=== PATIENT | male | born 1960 | race Hispanic/Latino ===

== ENCOUNTER 2024-10-28 10:59 | Emergency (ER) | payer BC ==
--- OUTSIDE RECORDS SUMMARY | 2024-10-28 11:38 | XMS REPORT | Continuity of Care Document ---
Author Name Unknown Address [address] [facility] [place] [address] [facility] [address] [facility] [address] [place] [address] Care Team Providers Care Armature Rewinder Name Role Phone Kurtis Lynch Attending Clinician Unavailable Annabelle Zazueta Attending Clinician Unavailable Josette Ley Attending Clinician Unavailab Arturo Crockett Attending Clinician Unavailable Sunita Wills Attending Clinician Unavailable Liset Whiting Attending Clinician Unavailable Candie Soto Attending Clinician Unavailab Kiko Roberson Attending Clinician Unavailable Kalpana Dickinson Attending Clinician UnavailPete Myers Attending Clinician Unavailable Luis Lao Attending Clinician Unavailable Keenan Kumari Attending Clinician Unavailable Parvin Salcido Attending Clinician Unavailable Nitza Brown Attending Clinician UnavailLorraine John Attending Clinician Unavailable Sherrie Stein Attending Clinician Unavailable Luke Artis Attending Clinician Unavailable Pearl Mcgill Attending Clinician UnavailNnamdi Rowley X Attending Clinician Unavailable Snow Attending Clinician Unavailable Chad Haile Attending Clinician Unavailab jerome Coronado_S Attending Clinician Unavailable UNKNOWN Attending Clinician Unavailable Aydee Briceno Attending Clinician Unavailable Darvin Attending Clinician Unavailable Kiko Mukherjee Attending Clinician Unavailable Physician, No Primary or Family Admitting Clinic warren Unavailable Josette Ley Admitting Clinician Unavailab Jong Brar Admitting Clinician Unavailable Pete Vang Admitting Clinician Unavailable Parvin Salcido Admitting Clinician Unavailable Physician, No Primary Care Admitting Clinician U navailable Najmamed, Lorraine X Admitting Clinician Unavailable Sherrie Stein Admitting Clinician Unavailable UNDEFINED Admitting Clinician Unavailable Kurtis Lynch Admitting Clinician Unavailable Keenan Kumari Admitting Clinician Unavailable Snow Admitting Clinician Unavailable Nnamdi Rachel Admitting Clinician Unavailable [facility] Admitting Clinician Unavaila misbah Coronado_S Admitting Clinician Unavailable Annabelle Zazueta Admitting Clinician Unavailable Aydee Briceno Admitting Clinician Unavailable Darvin Admitting Clinician Unavailable Payers Payer Name Policy Type Policy Number Effective Date Expirati on Date Source [place]HMO) [id number] 2022 00:00:00 2023 00:00:00 Problems Condition Name Condition Details Condition Category Status Onset Date Resolution Date Last Treatment Date Treating Clinician Comments Source Generalize d anxiety disorder Generalize d Anxiety Disorder Problem Active 605 00:00: 00 [facility] Essential hypertensi on Essential Hypertensi on Problem Active 07-21 00:00: 00 [facility] Obstructiv e sleep apnea syndrome Obstructiv e Sleep Apnea Syndrome Problem Active 06-10 00:00: 00 [facility] Pneumonia Pneumonia Problem Active 06-10 00:00: 00 [facility] Dyspnea Dyspnea Problem Active 06-10 00:00: 00 [facility] Dyspnea on exertion Dyspnea on Exertion Problem Active 06-10 00:00: 00 [facility] Hypercoagu lability state Hypercoagu lability State Problem Active - 00:00: 00 [facility] Ischemic congestive cardiomyop athy Ischemic Congestive Cardiomyop athy Problem Active 03-19 00:00: 00 [facility] Paroxysmal atrial fibrillati on Paroxysmal Atrial Fibrillati on Problem Active 03-19 00:00: 00 [facility] Chronic systolic heart failure Chronic Systolic Heart Failure Problem Active 03-19 00:00: 00 [facility] Harmful pattern of use of alcohol Harmful Pattern of Use of Alcohol Problem Active 08-29 00:00: 00 [facility] Nicotine dependence Nicotine Dependence Problem Active 08-29 00:00: 00 [facility] Mild major depression Mild Major Depression Problem Active 2022-03 00:00: 00 [facility] Cervical radiculopa thy Cervical Radiculopa thy Problem Active 11-29 00:00: 00 [facility] History of myocardial infarction History of Myocardial Infarction Problem Active 11-29 00:00: 00 [facility] History of placement of stent for coronary artery disease History of Placement of Stent for Coronary Artery Disease Problem Active 11-29 00:00: 00 [facility] Coronary atheroscle rosis Coronary Atheroscle rosis Problem Active 06-26 00:00: 00 [facility] Hyperlipid emia Hyperlipid emia Problem Active 06-25 00:00: 00 [facility] Hypertensi ve disorder Hypertensi ve Disorder Problem Active 06-25 00:00: 00 [facility] Allergies, Adverse Reactions, Alerts Allergy Name Allergy Type Status Severity Reaction(s) Onset Date Inactive Date Treating Clinician Comments Source No Known Allergie s DA Active U 2023-03 00:00: 00 [facility] are [facility] No Known Allergie s DA Active U 08-29 00:00: 00 [facility] are [facility] No Known Allergie s DA Active U 2020-03 00:00: 00 [facility] are [facility] Social History Smoking Status Start Date Stop Date Source Light Tobacco Smoker [facility] Never Smoker [facility] Medications Ordered Medication Name Filled Medication Name Start Date Stop Date Current Medication? Ordering Clinician Indication Dosage Frequency Signature (SIG) Comments Components Source losartan 100 mg tablet Take 1 tablet every day by oral route. losartan 100 mg tablet Take 1 tablet every day by oral route. No 1 Q1D losartan 100 mg tablet Take 1 tablet every day by oral route. [facility] metoprolol succinate 75 mg once a day metoprolol succinate 75 mg once a day No metoprolol succinate 75 mg once a day [facility] trazodone 100 mg tablet 1/2 to 1 tab q HS trazodone 100 mg tablet 1/2 to 1 tab q HS No trazodone 100 mg tablet 1/2 to 1 tab q HS [facility] folic acid 1 mg tablet Take 1 tablet every day by oral route for 90 days. folic acid 1 mg tablet Take 1 tablet every day by oral route for 90 days. No folic acid 1 mg tablet Take 1 tablet every day by oral route for 90 days. [facility] bumetanide 1 mg tablet Take 1 tablet every day by oral route. bumetanide 1 mg tablet Take 1 tablet every day by oral route. No 1 Q1D bumetanide 1 mg tablet Take 1 tablet every day by oral route. [facility] Eliquis 5 mg tablet one po qd Eliquis 5 mg tablet one po qd No Eliquis 5 mg tablet one po qd [facility] meclizine 25 mg tablet PRN meclizine 25 mg tablet PRN No meclizine 25 mg tablet PRN [facility] potassium chloride ER 20 mEq tablet,exte nded release one po qd potassium chloride ER 20 mEq tablet,exte nded release one po qd No potassium chloride ER 20 mEq tablet,ext ended release one po qd [facility] atorvastati n 40 mg tablet TAKE ONE TABLET BY MOUTH DAILY atorvastati n 40 mg tablet TAKE ONE TABLET BY MOUTH DAILY No atorvastat in 40 mg tablet TAKE ONE TABLET BY MOUTH DAILY [facility] amiodarone 200 mg tablet TAKE ONE TABLET BY MOUTH DAILY amiodarone 200 mg tablet TAKE ONE TABLET BY MOUTH DAILY No amiodarone 200 mg tablet TAKE ONE TABLET BY MOUTH DAILY [facility] cyclobenzap rine 10 mg tablet cyclobenzap rine 10 mg tablet No cyclobenza jeffery 10 mg tablet [facility] escitalopra m 10 mg tablet Take 1 tablet every day by oral route for 90 days. escitalopra m 10 mg tablet Take 1 tablet every day by oral route for 90 days. No 1 Q1D escitalopr am 10 mg tablet Take 1 tablet every day by oral route for 90 days. [facility] clonazepam 1 mg tablet Take 1 tablet twice a day by oral route as needed for 30 days, for anxiety. clonazepam 1 mg tablet Take 1 tablet twice a day by oral route as needed for 30 days, for anxiety. No 1 BID clonazepam 1 mg tablet Take 1 tablet twice a day by oral route as needed for 30 days, for anxiety. [facility] escitalopra m 20 mg tablet Take 1 tablet every day by oral route in the morning for 90 days. escitalopra m 20 mg tablet Take 1 tablet every day by oral route in the morning for 90 days. No 1 Q1D escitalopr am 20 mg tablet Take 1 tablet every day by oral route in the morning for 90 days. [facility] metoprolol succinate ER 50 mg tablet,exte nded release 24 hr Take 1 tablet every day by oral route. metoprolol succinate ER 50 mg tablet,exte nded release 24 hr Take 1 tablet every day by oral route. No 1 Q1D metoprolol succinate ER 50 mg tablet,ext ended release 24 hr Take 1 tablet every day by oral route. [facility] Vital Signs Vital Name Observation Time Observation Value Comments [place] BP Diastolic 2024-10-06 00:00:00 68 mm[Hg] [facility] BP Systolic 2024-10-06 00:00:00 99 mm[Hg] [facility] Height 2024-10-06 00:00:00 68 [in_i] [facility] BMI (Body Mass Index) 2024-10-06 00:00:00 26.5 kg/m2 [facility] Body Weight 2024-10-06 00:00:00 174.6 [lb_av] [facility] BP Diastolic 2024-08-06 00:00:00 68 mm[Hg] [facility] Body Weight 2024-08-06 00:00:00 170.2 [facility]lb_av[facility] Systolic 2024-08-06 00:00:00 103 mm[Hg] [facility] BMI (Body Mass Index) 2024-08-06 00:00:00 25.9 kg/m2 [facility] Height 2024-08-06 00:00:00 68 [in_i] [facility] BMI (Body Mass Index) 2024-07-21 00:00:00 27.2 kg/m2 [facility] ly Practice BP Diastolic 2024-07-21 00:00:00 77 mm[Hg] [facility] BP Systolic 2024-07-21 00:00:00 115 mm[Hg] [facility] Height 2024-07-21 00:00:00 68 [in_i] [facility] Body Weight 2024-07-21 00:00:00 179 [lb_av] [facility] Height 2024-06-16 00:00:00 68 [in_i] [facility] BMI (Body Mass Index) 2024-06-16 00:00:00 27.1 kg/m2 [facility] BP Diastolic 2024-06-16 00:00:00 72 mm[Hg] [facility] Body Weight 2024-06-16 00:00:00 178 [lb_av] [facility] Systolic 2024-06-16 00:00:00 114 mm[Hg] [facility] Height 2024-06-10 00:00:00 68 [in_i] [facility] BMI (Body Mass Index) 2024-06-10 00:00:00 26.5 kg/m2 [facility] Body Weight 2024-06-10 00:00:00 174 [lb_av] [facility] BP Systolic 2024-06-10 00:00:00 126 mm[Hg] [facility] BP Diastolic 2024-06-10 00:00:00 84 mm[Hg] [facility] BP Diastolic 2024-05-25 00:00:00 78 mm[Hg] [facility] BP Systolic 2024-05-25 00:00:00 132 mm[Hg] [facility] Height 2024-05-25 00:00:00 68 [in_i] [facility] Body Weight 2024-05-25 00:00:00 174 [lb_av] [facility] BMI (Body Mass Index) 2024-05-25 00:00:00 26.5 kg/m2 [facility] Body Weight 2024-05-12 00:00:00 176.4 [lb_av] [facility] Height 2024-05-12 00:00:00 68 [in_i] [facility] BP Diastolic 2024-05-12 00:00:00 76 mm[Hg] [facility] BP Systolic 2024-05-12 00:00:00 120 mm[Hg] [facility] BMI (Body Mass Index) 2024-05-12 00:00:00 26.8 kg/m2 [facility] BP Systolic 2023-09-26 00:00:00 118 mm[Hg] [facility] Body Weight 2023-09-26 00:00:00 159.4 [lb_av] [facility] Height 2023-09-26 00:00:00 68 [in_i] [facility] BMI (Body Mass Index) 2023-09-26 00:00:00 24.2 kg/m2 [facility] BP Diastolic 2023-09-26 00:00:00 74 mm[Hg] [facility] BMI (Body Mass Index) 2023-08-29 00:00:00 25.4 kg/m2 [facility] Body Weight 2023-08-29 00:00:00 166.8 [lb_av] [facility] Height 2023-08-29 00:00:00 68 [in_i] [facility] BP Systolic 2023-08-29 00:00:00 160 mm[Hg] [facility] BP Diastolic 2023-08-29 00:00:00 100 mm[Hg] [facility] Height 2023-07-11 00:00:00 68 [in_i] [facility] BMI (Body Mass Index) 2023-07-11 00:00:00 22.8 kg/m2 [facility] BP Diastolic 2023-07-11 00:00:00 57 mm[Hg] [facility] Body Weight 2023-07-11 00:00:00 150 [lb_av] [facility] BP Systolic 2023-07-11 00:00:00 100 mm[Hg] [facility] BP Systolic 2023-01-29 00:00:00 151 mm[Hg] [facility] BMI (Body Mass Index) 2023-01-29 00:00:00 26.4 kg/m2 [facility] BP Diastolic 2023-01-29 00:00:00 91 mm[Hg] [facility] Body Weight 2023-01-29 00:00:00 173.4 [lb_av] [facility] Height 2023-01-29 00:00:00 68 [in_i] [facility] BP Diastolic 2023-01-03 00:00:00 70 mm[Hg] [facility] BP Systolic 2023-01-03 00:00:00 122 mm[Hg] [facility] Height 2023-01-03 00:00:00 68 [in_i] [facility] BMI (Body Mass Index) 2023-01-03 00:00:00 26.2 kg/m2 [facility] Body Weight 2023-01-03 00:00:00 172 [lb_av] [facility] Body Weight 2022-11-29 00:00:00 166 [lb_av] [facility] BMI (Body Mass Index) 2022-11-29 00:00:00 25.2 kg/m2 [facility] Height 2022-11-29 00:00:00 68 [in_i] [facility] BP Systolic 2022-11-29 00:00:00 138 mm[Hg] [facility] BP Diastolic 2022-11-29 00:00:00 80 mm[Hg] [facility] BP Diastolic 2022-09-12 00:00:00 82 mm[Hg] [facility] Height 2022-09-12 00:00:00 68 [in_i] [facility] BMI (Body Mass Index) 2022-09-12 00:00:00 23.7 kg/m2 [facility] BP Systolic 2022-09-12 00:00:00 124 mm[Hg] [facility] Body Weight 2022-09-12 00:00:00 156.2 [lb_av] [facility] BP Diastolic 2022-08-23 00:00:00 72 mm[Hg] [facility] Height 2022-08-23 00:00:00 68 [in_i] [facility] BMI (Body Mass Index) 2022-08-23 00:00:00 22.9 kg/m2 [facility] BP Systolic 2022-08-23 00:00:00 110 mm[Hg] [facility] Body Weight 2022-08-23 00:00:00 150.8 [lb_av] [facility] BP Diastolic 2022-07-26 00:00:00 86 mm[Hg] [facility] Height 2022-07-26 00:00:00 68 [in_i] [facility] BMI (Body Mass Index) 2022-07-26 00:00:00 22.9 kg/m2 [facility] BP Systolic 2022-07-26 00:00:00 138 mm[Hg] [facility] Body Weight 2022-07-26 00:00:00 150.6 [lb_av] [facility] BP Diastolic 2022-07-17 00:00:00 76 mm[Hg] [facility] Height 2022-07-17 00:00:00 68 [in_i] [facility] Practice BMI (Body Mass Index) 2022-07-17 00:00:00 22.4 kg/m2 [facility] BP Systolic 2022-07-17 00:00:00 112 mm[Hg] [facility] Body Weight 2022-07-17 00:00:00 147.6 [lb_av] [facility] BP Diastolic 2022-06-26 00:00:00 60 mm[Hg] [facility] Height 2022-06-26 00:00:00 68 [in_i] [facility] BMI (Body Mass Index) 2022-06-26 00:00:00 23.4 kg/m2 [facility] BP Systolic 2022-06-26 00:00:00 110 mm[Hg] [facility] Body Weight 2022-06-26 00:00:00 154 [lb_av] [facility] Procedures Procedure Date / Time Performed Performing Clinician Source X-RAY OF CHEST 2 VIEW 2024-06-10 00:00:00 [facility] LDCT, chest, for lung cancer screening 2024-06-10 00:00:00 [facility] PFT, complete 2024-06-10 00:00:00 [facility] PFT, diffusing capacity 2024-06-10 00:00:00 [facility] PFT, lung volumes 2024-06-10 00:00:00 [facility] PFT, flow volume loop 2024-06-10 00:00:00 [facility] RESPIRATORY VENTILATION, LESS THAN 24 CONSECUTIVE 2024-01-28 00:00:[address] [facility] INSERTION OF ENDOTRACHEAL AIRWAY INTO TRACHEA, VIA 2024-01-28 00:[facility] [id number] 2024-01-02 00:00:00 [facility] [id number] 2024-01-02 00:00:00 [facility] [id number] 2024-01-02 00:00:00 [facility] [id number] 2024-01-02 00:00:00 [facility] [id number] 2023-12-31 00:00:00 [facility] [id number] 2023-12-31 00:00:00 [facility] [id number] 2023-12-31 00:00:00 [facility] [id number] 2023-12-31 00:00:00 [facility] [id number] 2023-12-31 00:00:00 [facility] [id number] 2023-12-31 00:00:00 [facility] [id number] 2023-12-31 00:00:00 [facility] [id number] 2023-12-30 00:00:00 [facility] [id number] 2023-12-30 00:00:00 [facility] [id number] 2023-12-30 00:00:00 [facility] [id number] 2023-12-30 00:00:00 [facility] [id number] 2023-12-26 00:00:00 [facility]ZAA [facility] [id number] 2023-12-26 00:00:00 [facility]ZAA [facility] [id number] 2023-08-30 00:00:00 [facility]GR [facility] [id number] 2023-08-30 00:00:00 [facility] [id number] 2023-08-30 00:00:00 [facility] [id number] 2023-07-29 00:00:00 HADOM [facility] [id number] 2023-07-26 00:00:00 KUMAR01 [facility] [id number] 2023-07-26 00:00:00 KUMAR01 [facility] [id number] 2023-07-26 00:00:00 KUMAR01 [facility] [id number] 2023-07-26 00:00:00 KUMAR01 [facility] [id number] 2023-07-26 00:00:00 KUMAR01 [facility] [id number] 2023-07-26 00:00:00 KUMAR01 [facility] [id number] 2023-07-26 00:00:00 KUMAR01 [facility] [id number] 2023-07-26 00:00:00 KUMAR01 [facility] [id number] 2023-07-26 00:00:00 KUMAR01 [facility] [id number] 2023-07-26 00:00:00 KUMAR01 [facility] [id number] 2023-07-26 00:00:00 KUMAR01 [facility] [id number] 2023-07-26 00:00:00 KUMAR01 [facility] [id number] 2023-07-26 00:00:00 VOGR [facility] [id number] 2023-07-26 00:00:00 VOGR [facility] [id number] 2023-07-26 00:00:00 DARUM [facility] [id number] 2023-07-26 00:00:00 DARUM [facility] [id number] 2023-07-26 00:00:00 BARBARA.04 [facility] [id number] 2023-07-26 00:00:00 KUMAR01 [facility] [id number] 2023-06-13 00:00:00 POREY [facility] [id number] 2023-06-13 00:00:00 POREY [facility] [id number] 2023-06-13 00:00:00 POREY [facility] [id number] 2023-06-13 00:00:00 POREY [facility] [id number] 2023-06-13 00:00:00 POREY [facility] [id number] 2023-06-13 00:00:00 YOUAD [facility] [id number] 2023-06-13 00:00:00 YOUAD [facility] [id number] 2023-06-13 00:00:00 YOUAD [facility] [id number] 2023-06-13 00:00:00 POREY [facility] [id number] 2023-06-13 00:00:00 YOUAD [facility] [id number] 2023-06-13 00:00:00 YOUAD [facility] [id number] 2023-06-13 00:00:00 YOUAD [facility] [id number] 2023-05-31 00:00:00 LOYPR [facility] [id number] 2023-05-31 00:00:00 LOYPR [facility] X-RAY OF LUMBAR SPINE 2 OR 3 VIEW 2023-01-29 00:00:00 [facility] MRI, cervical spine, w/o contrast 2023-01-03 00:00:00 [facility] MRI, lumbar spine, w/o contrast 2023-01-03 00:00:00 [facility] MRI, cervical spine, w/o contrast 2022-11-29 00:00:00 [facility] X-RAY OF CHEST 2 VIEW 2022-07-17 00:00:00 [facility] [id number] 2022-06-04 00:00:00 MUIDA [facility] [id number] 2022-06-04 00:00:00 MUIDA [facility] [id number] 2022-06-04 00:00:00 MUIDA [facility] [id number] 2022-06-04 00:00:00 MUIDA [facility] [id number] 2022-06-04 00:00:00 LOYPR [facility] [id number] 2022-06-02 00:00:00 MUIDA [facility] [id number] 2022-05-28 00:00:00 NGUJO.07 [facility] [id number] 2022-05-28 00:00:00 NGUJO.07 [facility] [id number] 2022-05-28 00:00:00 NGUJO.07 [facility] [id number] 2022-05-28 00:00:00 NGUJO.07 [facility] [id number] 2022-05-28 00:00:00 GULZU [facility] [id number] 2022-05-28 00:00:00 MAZMO [facility] [id number] 2022-05-27 00:00:00 GULZU [facility] Cardiac Surgery [facility] Practice Encounters Start Date/Time End Date/Time Encounter Type Admission Type Attending [facility] Care Facility Care Department Encounter ID Source 2023-04-30 09:30:00 Inpatient Kurtis Martin [facility] [id number] [facility] 2022-06-02 09:40:00 Inpatient Annabelle Zazueta [facility] [id number] [facility] 2024-10-06 00:00:00 2024-10-06 00:00:00 Huey Dickinson MD: [address], [place] [address] , Ph. [facility] - _HOU_Heig hts [id number] [facility] 2024-08-06 00:00:2024-08-06 00:00:00 Huey Dickinson MD: [address] [place] [address] , Ph. [facility] VM_HOU_[facility] [id number] [facility] 2024-07-21 00:00:00 2024-07-21 00:00:00 Huey Dickinson MD: [address] [place] [address] , Ph. [facility] - VM_HOU_[facility] [id number] [facility] 2024-07-03 13:22:00 2024-07-04 09:13:00 Inpatient EM [facility].01 [id number] [facility] are [facility] 2024-06-29 16:37:00 2024-06-29 17:35:00 Emergency EM Arturo Jimenez HC[facility] CJ [id number] [facility] are [facility] 2024-06-16 00:00:00 2024-06-16 00:00:00 Carline Neal, CURRICULUM CONSULTANT: [id number] , [address], [place] [address] , Ph. [facility] - VM_HOU_Alessia ey [facility] [id number] [facility] 2024-06-11 02:50:00 2024-06-11 02:50:00 Outpatient Sunita Wills [facility] [id number] [facility] are [facility] 2024-06-10 00:00:00 2024-06-10 00:00:00 Sunita Wills MD: [id number] [facility], [address], [place] [address] , Ph. [facility] - VM_HOU_[facility] [id number] [facility] 2024-05-27 07:58:00 2024-05-27 09:10:00 Emergency EM Liset Whiting HCANC CJ [id number] [facility] are [facility] 2024-05-27 04:07:00 2024-05-27 05:03:00 Emergency EM Candie Soto [facility] T[facility] [id number] [facility] are [facility] 2024-05-25 00:00:00 2024-05-25 00:00:00 Carline Neal, CURRICULUM CONSULTANT: [id number], [address], [place] [address] , Ph. [facility] - VM_HOU_Jers ey [facility] [id number] [facility] 2024-05-16 01:34:00 2024-05-20 15:03:00 Inpatient EM Jeffreyemmy Armaniterrell [facility] TELE [id number] [facility] are [facility] 2024-05-18 10:52:00 2024-05-18 10:52:00 Outpatient Josette Ley [facility] REF [id number] [facility] are [facility] 2024-05-12 00:00:00 2024-05-12 00:00:00 [place]: [id number], [address], [place] [address] , Ph. [facility] - VM_HOU_Jers ey [facility] [id number] [facility] 2024-04-30 13:42:00 2024-04-30 14:55:00 Emergency EM Yaz Kiko [facility] [id number] [facility] are [facility] 2024-04-14 12:13:00 2024-04-14 15:12:00 Emergency EM Kalpana Dickinson [facility] [id number] [facility] are [facility] 2024-02-22 04:11:00 2024-02-24 17:29:00 Inpatient EM Pete Vagn HC[facility] TELE [id number] [facility] are [facility] 2024-02-15 10:58:00 2024-02-15 12:05:00 Emergency EM Augillard, Luis HCANC TERS [id number] [facility] are [facility] 2024-01-30 14:44:00 2024-01-31 11:20:00 Inpatient EM Pete Vang HCANC TELE [id number] 15 [facility] are [facility] 2024-01-28 22:24:00 2024-01-30 11:43:00 Inpatient EM Taj, Pete HCANC INTM.01 [id number] [facility] are [facility] 2023-12-31 14:33:00 2023-12-31 14:33:00 Outpatient Parvin Salcido HCANW REF [id number] [facility] are [facility] 2023-12-26 20:23:00 2023-12-31 13:28:00 Inpatient EM Pete Vang HCANC ICU [id number] [facility] are [facility] 2023-12-28 15:55:00 2023-12-28 15:55:00 Outpatient Taj, Pete HCANW REF [id number] [facility] are [facility] 2023-12-06 11:52:00 2023-12-06 13:29:00 Emergency EM Nitza Brown HCANC TERS [id number] [facility] are [facility] 2023-11-22 22:50:00 2023-11-23 15:52:00 Inpatient EM Lorraine Delgado HCANC TELE [id number] [facility] are [facility] 2023-09-26 00:00:00 2023-09-26 00:00:00 MIAH Goel: [address], [address], [place] [address] , Ph. [facility] [place] - VM_HOU_Jers ey [facility] [id number] [facility] 2023-08-29 23:51:00 2023-08-31 11:26:00 Inpatient Sherrie Sosa [facility] CARD[facility] [id number] [facility] 2023-08-30 02:09:00 2023-08-30 02:09:00 Outpatient Sherrie Stein [facility] [id number] [facility] are [facility] 2023-08-29 17:49:00 2023-08-29 23:00:00 Emergency EM Luke Artis JAKINC CJ [id number] [facility] are [facility] 2023-08-29 00:00:00 2023-08-29 00:00:00 MIAH Goel: [id number], [address], [place] [address] , Ph. [facility] [place] - VM_HOU_Jers ey [facility] [id number] [facility] 2023-08-22 15:08:00 2023-08-22 18:51:00 Emergency EM Pearl Mcgill JAKINC CJ [id number] 90 [facility] are [facility] 2023-07-27 06:22:00 2023-07-27 06:22:00 Outpatient Keenan Kumari [facility] [id number] [facility] are [facility] 2023-07-11 00:00:00 2023-07-11 00:00:00 Danny Sutton MD: [id number] [place] [address] , Ph. [facility] [place] - VM_HOU_Humb [id number] [facility] 2023-05-29 15:35:00 2023-06-18 16:36:00 Inpatient EM Keenan Kumari [facility] [id number] 69 [facility] 2023-05-16 15:15:00 2023-05-16 16:15:00 Emergency EM Liset Whiting [id number] [facility] are [facility] 2023-04-05 13:57:00 2023-04-05 19:15:00 Inpatient EM JeffreyemmyJosette [facility] TE[facility] [id number] [facility] are [facility] 2023-01-29 00:00:00 2023-01-29 00:00:00 Danny Sutton MD: [address], [address], [place] [address] , Ph. [facility] [place] - VM_HOU_Port er (WAG) [id number] [facility] 2023-01-03 00:00:00 2023-01-03 00:00:00 Ced Loera PA: [id number], [address], [place] [id number] , Ph. [facility] [place] - VM_HOU_Jers ey [facility] [id number] [facility] 2022-12-24 11:20:00 2022-12-25 08:00:00 Inpatient Nnamdi Moreland [facility] [id number] [facility] 2022-11-29 00:00:00 2022-11-29 00:00:00 Ced Loera PA: [id number], [address] [id number] , Ph. [facility] - VM_HOU_Jers ey [facility] [id number] [facility] 2022-11-28 13:51:00 2022-11-28 14:27:00 Emergency EM Liset Whiting [facility] CJ [id number] [facility] are [facility] 2022-11-13 12:33:00 2022-11-13 13:14:00 Emergency EM Chad Haile [facility] [id number] [facility] are [place] 2022-09-12 00:00:00 2022-09-12 00:00:00 Danny Sutton MD: [id number], [address], [place] [address] , Ph. [facility] [place] - VM_HOU_Jers ey [facility] [id number] [facility] 2022-08-23 00:00:00 2022-08-23 00:00:00 Danny Sutton MD: [id number], [address], [place] [address] , Ph. [facility] [place] - VM_HOU_Jers ey [facility] [id number] [facility] 2022-07-26 00:00:00 2022-07-26 00:00:00 Danny Sutton MD: [address], [address], [place] [address] , Ph. [facility] [place] - VM_HOU_Jers ey [facility] [id number] [facility] 2022-07-17 00:00:00 2022-07-17 00:00:00 Danny Sutton MD: [address], [address], [place] [address] , Ph. [facility] - VM_HOU_Jers ey [facility] [id number] [facility] 2022-07-13 09:34:00 2022-07-13 12:50:00 Emergency EM Yesica Haileon [facility] CJ [id number] 02 [facility] are [facility] 2022-06-26 00:00:00 2022-06-26 00:00:00 Danny Sutton MD: [address], Suite [facility], [place] [address] , Ph. [facility] - VM_HOU_Jers ey [facility] [id number] [facility] 2022-06-02 11:59:00 2022-06-06 13:33:00 Inpatient EM Annabelle Zazueta [facility] ADMI [id number] [facility] [place] 2022-06-02 15:31:00 2022-06-02 15:31:00 Outpatient Annabelle [facility]azueta [facility] [id number] 90 [facility] are [facility] 2022-05-27 12:19:00 2022-06-02 10:58:00 Inpatient EM Aydee Briceno [facility] ICU [id number] [facility] are [facility] 2021-02-12 00:07:00 2021-02-12 01:55:00 Emergency EM Kiko Mukherjee [facility] [id number] [facility] are [facility] Results Test Description Test Time Test Comments Results Result Co mments Source TROP-I HIGH [id number] 23:20:00* Test Item Value Reference Range Interpretation Comme [facility] TROP-I HIGH SENSITIVITY (test code = TROPIHS) 48 pg/mL 0-78 N CAUTION: U nits of the current test methodology (pg/mL) differ from the prior test methodology (ng/mL) by a factor of 1000. POSITIVE TROPONIN HS IS IDENTIFIED THE FOLLOWING MALE > OR = 78 pg/mL FEMALE > OR = 53 pg/mL ALL CRITICAL TROPI HS HAVE BEEN IDENTIFIED MALE OR FEMALE > OR = 120 pg/mL [id number] 21:05:00* Test Item Value Reference Range Interpretation Comme [facility] GLUBED (test code = GLUBED) 94 mg/dL 70-105 N Intravenous admi nistration of N-acetylcysteine which resultsin blood concentrations >5 mg/dL will cause overestimationof blood glucose results. Do not use during intravenousinfusion of N'acetylcysteine. TROP-I HIGH [id number] 20:20:00* Test Item Value Reference Range Interpretation Comme [facility] TROP-I HIGH SENSITIVITY (test code = TROPIHS) 60 pg/mL 0-78 N CAUTION: U nits of the current test methodology (pg/mL) differ from the prior test methodology (ng/mL) by a factor of 1000. POSITIVE TROPONIN HS IS IDENTIFIED THE FOLLOWING MALE > OR = 78 pg/mL FEMALE > OR = 53 pg/mL ALL CRITICAL TROPI HS HAVE BEEN IDENTIFIED MALE OR FEMALE > OR = 120 pg/mL LIPID PROFILE (CORONARY RISK)2024-07-03 15:09:00* Test Item Value Reference Range Interpretation Comme nts TRIGLYCERIDES (test code = TRIG) 187 mg/dL 0-149 H According to the National Institutes of Health (NIH) and theNational Cholesterol Education Program (NCEP), serumtriglyceride levels between 150-199mg/dL are consideredBorderline High. CHOLESTEROL (test code = CHOL) 265 mg/dL 0-200 H CHOLESTEROL/HDL RATIO (test code = CHOLHDL) 3 1-6 N HDL CHOLESTEROL (test code = HDL) 77 mg/dL 40-59 H According to t fay National Institutes of Health (NIH) and theNational Cholesterol Education Program (NCEP), an HDLcholesterol >or= 60mg/dL counts as a "negative" risk factor;its presence removes one risk factor from the total count. LIPOPROTEIN LDL (test code = LDLC) 150 mg/dL 0-100 H TROP-I HIGH [id number] 15:09:00* Test Item Value Reference Range Interpretation Comme [facility] TROP-I HIGH SENSITIVITY (test code = TROPIHS) 68 pg/mL 0-78 N CAUTION: U nits of the current test methodology (pg/mL) differ from the prior test methodology (ng/mL) by a factor of 1000. POSITIVE TROPONIN HS IS IDENTIFIED THE FOLLOWING MALE > OR = 78 pg/mL FEMALE > OR = 53 pg/mL ALL CRITICAL TROPI HS HAVE BEEN IDENTIFIED MALE OR FEMALE > OR = 120 pg/mL TROP-I HIGH [id number] 12:56:00* Test Item Value Reference Range Interpretation Comme [facility] TROP-I HIGH SENSITIVITY (test code = TROPIHS) 51 pg/mL 0-78 N CAUTION: U nits of the current test methodology (pg/mL) differ from the prior test methodology (ng/mL) by a factor of 1000. POSITIVE TROPONIN HS IS IDENTIFIED THE FOLLOWING MALE > OR = 78 pg/mL FEMALE > OR = 53 pg/mL ALL CRITICAL TROPI HS HAVE BEEN IDENTIFIED MALE OR FEMALE > OR = 120 pg/mL BASIC METABOLIC [id number] 10:45:00* Test Item Value Reference Range Interpretation Comme nts SODIUM (test code = NA) 133 mmol/L 136-145 L POTASSIUM (test code = K) 3.9 mmol/L 3.5-5.1 N CHLORIDE (test code = CL) 96 mmol/L 98-107 L CARBON DIOXIDE (test code = CO2) 25 mmol/L 20-31 N ANION GAP (test code = GAP) 16.6 2.0-16.0 H GLUCOSE (test code = GLU) 115 mg/dL 74-106 H BLOOD UREA NITROGEN (test code = BUN) 13 mg/dL 9-23 N GLOMERULAR FILTRATION RATE (test code = GFR) 57 ml/min L The Glomerular Filtration Rate is a calculated parameterbased on serum Creatinine, patient age and sex. GFR valuesless than 60 mL/min/1.73 square meters are indicative ofChronic Kidney Disease. Values less than 15 mL/min/1.73square meters indicate Kidney failure. The calculation forGFR is based on the CKD-EPI (2020) calculation. This formulais race indifferent and is the recommended formula for GFRby the National Kidney Foundation for Adults.The GFR will not calculate if the sex is unknown or if thepatient's age is <18 years. CREATININE (test code = CREAT) 1.4 mg/dL 0.7-1.3 H BUN/CREATININE RATIO (test code = BUN/CREA) 9.3 12.0-20.0 L CALCIUM (test code = CA) 9.8 mg/dL 8.7-10.4 N TROP-I HIGH [id number] 10:45:00* Test Item Value Reference Range Interpretation Comme nts TROP-I HIGH SENSITIVITY (test code = TROPIHS) 16 pg/mL 0-78 N CAUTION: U nits of the current test methodology (pg/mL) differ from the prior test methodology (ng/mL) by a factor of 1000. POSITIVE TROPONIN HS IS IDENTIFIED THE FOLLOWING MALE > OR = 78 pg/mL FEMALE > OR = 53 pg/mL ALL CRITICAL TROPI HS HAVE BEEN IDENTIFIED MALE OR FEMALE > OR = 120 pg/mL CBC W/AUTO [id number] 10:33:00* Test Item Value Reference Range Interpretation Comme nts WHITE BLOOD CELL (test code = WBC) 14.0 10 3/uL 4.5-11.0 H RED BLOOD CELL (test code = RBC) 5.40 10 6/uL 4.30-5.90 N HEMOGLOBIN (test code = HGB) 17.0 g/dL 14.0-18.0 N HEMATOCRIT (test code = HCT) 50.7 % 40.0-55.0 N MEAN CELL VOLUME (test code = MCV) 94 fL 81-102 N MEAN CELL HGB (test code = MCH) 31.5 pg 26.0-34.0 N MEAN CELL HGB CONCENTRATION (test code = MCHC) 33.5 g/dL 31.0-37.0 N RED CELL DISTRIBUTION WIDTH (test code = RDW) 13.8 % 11.6-14.4 N PLATELET COUNT (test code = PLT) 291 10 3/uL 150-400 N MEAN PLATELET VOLUME (test code = MPV) 9.4 fL 9.0-12.6 N NEUTROPHIL % (test code = NT%) 70.8 % 33.0-76.0 N IMMATURE GRANULOCYTE % (test code = IG%) 0.6 % 0.0-1.0 N LYMPHOCYTE % (test code = LY%) 22.8 % 14.0-56.4 N MONOCYTE % (test code = MO%) 5.1 % 0.0-12.9 N EOSINOPHIL % (test code = EO%) 0.1 % 0.0-7.0 N BASOPHIL % (test code = BA%) 0.6 % 0-2.0 N NUCLEATED RBC % (test code = NRBC%) 0.0 % 0-0.2 N NEUTROPHIL # (test code = NT#) 9.93 10 3/uL 1.5-7.0 H IMMATURE GRANULOCYTE # (test code = IG#) 0.090 x10 3/uL 0.000-0.100 N LYMPHOCYTE # (test code = LY#) 3.19 10 3/uL 1.50-4.00 N MONOCYTE # (test code = MO#) 0.71 10 3/uL 0.20-0.80 N EOSINOPHIL # (test code = EO#) 0.02 10 3/uL 0.0-0.5 N BASOPHIL # (test code = BA#) 0.08 10 3/uL 0.0-0.1 N NUCLEATED RBC # (test code = NRBC#) 0.000 10 3/uL 0.000-0.012 N URINALYSIS [id number] 04:50:00* Test Item Value Reference Range Interpretation Comme nts POC,URINE COLOR (test code = EDCOLU) Light yellow Yellow Substances that cause abnormal urine color may affect thereadability of test pads on the urinalysis reagent strips.These substances include visible levels of blood orbilirubin and drugs containing dyes, nitrofurantoin, orriboflavin. POC,URINE CLARITY (test code = EDCLARITY) Clear Clear POC,URINE GLUCOSE (test code = EDGLUU) Negative Negative POC,URINE BILIRUBIN (test code = EDBILIU) Negative Negative POC,URINE KETONES (test code = EDKETU) Negative Negative POC,URINE SPECIFIC GRAVITY (test code = EDSGU) <= 1.005 1.001-1.035 N POC,URINE BLOOD (test code = EDBLDU) Negative Negative POC,URINE pH (test code = EDPH) 6.5 5.0-8.0 N POC,URINE PROTEIN (test code = EDPROTU) Negative Negative POC,URINE UROBILINOGEN (test code = EDURO) 0.2 E.U/dL 0.2-1.0 POC,URINE NITRITE (test code = EDNIT) Negative Negative POC,URINE LEUKOCYTE ESTERASE (test code = EDLEUK) Negative Negative [facility] [address], [place]EL [place] METABOLIC PANEL 2024-05-21 19:09:00* Test Item Value Reference Range Interpretation Comme nts SODIUM (test code = NA) 121 mmol/L 136-145 L POTASSIUM (test code = K) 3.8 mmol/L 3.5-5.1 N CHLORIDE (test code = CL) 87 mmol/L 98-107 L CARBON DIOXIDE (test code = CO2) 29 mmol/L 20-31 N ANION GAP (test code = GAP) 8.8 2.0-16.0 GLUCOSE (test code = GLU) 114 mg/dL 74-106 H BLOOD UREA NITROGEN (test code = BUN) 16 mg/dL 9-23 N GLOMERULAR FILTRATION RATE (test code = GFR) >=60 max estimate ml/min The Glomerular Filtration Rate is a calculated parameterbased on serum Creatinine, patient age and sex. GFR valuesless than 60 mL/min/1.73 square meters are indicative ofChronic Kidney Disease. Values less than 15 mL/min/1.73square meters indicate Kidney failure. The calculation forGFR is based on the CKD-EPI (202) calculation. This formulais race indifferent and is the recommended formula for GFRby the National Kidney Foundation for Adults.The GFR will not calculate if the sex is unknown or if thepatient's age is <18 years. CREATININE (test code = CREAT) 1.0 mg/dL 0.7-1.3 N BUN/CREATININE RATIO (test code = BUN/CREA) 16.0 12.0-20.0 N CALCIUM (test code = CA) 9.2 mg/dL 8.7-10.4 N OSMOLALITY [id number] 19:09:00* Test Item Value Reference Range Interpretation Comme nts OSMOLALITY SERUM (test code = OSMO) 266 mOsm/kg 280-301 L INFCE Result Uni ts: mOsmol/kgPerformed At: [facility] [address] [id number] Mann MD Ph:[id number] UR SODIUM [id number] 13:11:00* Test Item Value Reference Range Interpretation Comme nts UR SODIUM RANDOM (test code = REJI) 18 mmol/L NO REFERENCE V ALUES AVAILABLE FOR RANDOM URINE SODIUM 1 RED TOP WITH 2.0 ML URINE FOR OSMOUR POTASSIUM [id number] 13:11:00* Test Item Value Reference Range Interpretation Comme nts UR POTASSIUM RANDOM (test code = KU) 48 mmol/L NO REFERENCE RA NGE AVAILABLE FOR DINORA URINE POTASSIUM 1 RED TOP WITH 2.0 ML URINE FOR OSMOUR CHLORIDE [id number] 13:11:00* Test Item Value Reference Range Interpretation Comme nts UR CHLORIDE RANDOM (test code = CLU) 33 mmol/L NO REFERENCE R COLETTE AVAILABLE FOR RANDOM URINE CHLORIDE 1 RED TOP WITH 2.0 ML URINE FOR OSMOUR OSMOLALITY [id number] 13:11:00* Test Item Value Reference Range Interpretation Comme nts UR OSMOLALITY RANDOM (test code = OSMOU) 527 mOsm/kg See_Comment INFCE Result Units: mOsmol/kg 24 hr : 300 - 900 Random: 50 - 1400 After 12hr fluid restriction: >850Performed At: [facility] [address] [id number] Mann MD Ph:[id number] [Automated message] The system which generated this result transmitted reference range: (). The reference range was not used to interpret this result as normal/abnormal. 1 RED TOP WITH 2.0 ML URINE FOR OSMOBASIC METABOLIC [id number] 05:19:00* Test Item Value Reference Range Interpretation Comme nts SODIUM (test code = NA) 135 mmol/L 136-145 L POTASSIUM (test code = K) 4.1 mmol/L 3.5-5.1 N CHLORIDE (test code = CL) 96 mmol/L 98-107 L CARBON DIOXIDE (test code = CO2) 32 mmol/L 20-31 H ANION GAP (test code = GAP) 10.8 2.0-16.0 N GLUCOSE (test code = GLU) 86 mg/dL 74-106 N BLOOD UREA NITROGEN (test code = BUN) 16 mg/dL 9-23 N GLOMERULAR FILTRATION RATE (test code = GFR) >=60 max estimate ml/min The Glomerular Filtration Rate is a calculated parameterbased on serum Creatinine, patient age and sex. GFR valuesless than 60 mL/min/1.73 square meters are indicative ofChronic Kidney Disease. Values less than 15 mL/min/1.73square meters indicate Kidney failure. The calculation forGFR is based on the CKD-EPI (2020) calculation. This formulais race indifferent and is the recommended formula for GFRby the National Kidney Foundation for Adults.The GFR will not calculate if the sex is unknown or if thepatient's age is <18 years. CREATININE (test code = CREAT) 1.0 mg/dL 0.7-1.3 N BUN/CREATININE RATIO (test code = BUN/CREA) 16.0 12.0-20.0 N CALCIUM (test code = CA) 9.5 mg/dL 8.7-10.4 N CBC W/AUTO [id number] 04:30:00* Test Item Value Reference Range Interpretation Comme nts WHITE BLOOD CELL (test code = WBC) 6.6 10 3/uL 4.5-11.0 N RED BLOOD CELL (test code = RBC) 4.23 10 6/uL 4.30-5.90 L HEMOGLOBIN (test code = HGB) 12.9 g/dL 14.0-18.0 L HEMATOCRIT (test code = HCT) 38.7 % 40.0-55.0 L MEAN CELL VOLUME (test code = MCV) 92 fL 81-102 N MEAN CELL HGB (test code = MCH) 30.5 pg 26.0-34.0 N MEAN CELL HGB CONCENTRATION (test code = MCHC) 33.3 g/dL 31.0-37.0 N RED CELL DISTRIBUTION WIDTH (test code = RDW) 13.6 % 11.6-14.4 N PLATELET COUNT (test code = PLT) 264 10 3/uL 150-400 N MEAN PLATELET VOLUME (test code = MPV) 10.0 fL 9.0-12.6 N NEUTROPHIL % (test code = NT%) 70.6 % 33.0-76.0 N IMMATURE GRANULOCYTE % (test code = IG%) 0.8 % 0.0-1.0 N LYMPHOCYTE % (test code = LY%) 15.2 % 14.0-56.4 N MONOCYTE % (test code = MO%) 10.5 % 0.0-12.9 N EOSINOPHIL % (test code = EO%) 2.3 % 0.0-7.0 N BASOPHIL % (test code = BA%) 0.6 % 0-2.0 N NUCLEATED RBC % (test code = NRBC%) 0.0 % 0-0.2 N NEUTROPHIL # (test code = NT#) 4.66 10 3/uL 1.5-7.0 N IMMATURE GRANULOCYTE # (test code = IG#) 0.050 x10 3/uL 0.000-0.100 N LYMPHOCYTE # (test code = LY#) 1.00 10 3/uL 1.50-4.00 L MONOCYTE # (test code = MO#) 0.69 10 3/uL 0.20-0.80 N EOSINOPHIL # (test code = EO#) 0.15 10 3/uL 0.0-0.5 N BASOPHIL # (test code = BA#) 0.04 10 3/uL 0.0-0.1 N NUCLEATED RBC # (test code = NRBC#) 0.000 10 3/uL 0.000-0.012 N CBC W/AUTO [id number] 02:42:00* Test Item Value Reference Range Interpretation Comme nts WHITE BLOOD CELL (test code = WBC) 9.9 10 3/uL 4.5-11.0 N RED BLOOD CELL (test code = RBC) 4.04 10 6/uL 4.30-5.90 L HEMOGLOBIN (test code = HGB) 12.4 g/dL 14.0-18.0 L HEMATOCRIT (test code = HCT) 36.5 % 40.0-55.0 L MEAN CELL VOLUME (test code = MCV) 90 fL 81-102 N MEAN CELL HGB (test code = MCH) 30.7 pg 26.0-34.0 N MEAN CELL HGB CONCENTRATION (test code = MCHC) 34.0 g/dL 31.0-37.0 N RED CELL DISTRIBUTION WIDTH (test code = RDW) 13.2 % 11.6-14.4 N PLATELET COUNT (test code = PLT) 229 10 3/uL 150-400 N MEAN PLATELET VOLUME (test code = MPV) 9.7 fL 9.0-12.6 N NEUTROPHIL % (test code = NT%) 79.9 % 33.0-76.0 H IMMATURE GRANULOCYTE % (test code = IG%) 0.5 % 0.0-1.0 N LYMPHOCYTE % (test code = LY%) 9.8 % 14.0-56.4 L MONOCYTE % (test code = MO%) 9.3 % 0.0-12.9 N EOSINOPHIL % (test code = EO%) 0.2 % 0.0-7.0 N BASOPHIL % (test code = BA%) 0.3 % 0-2.0 N NUCLEATED RBC % (test code = NRBC%) 0.0 % 0-0.2 N NEUTROPHIL # (test code = NT#) 7.95 10 3/uL 1.5-7.0 H IMMATURE GRANULOCYTE # (test code = IG#) 0.050 x10 3/uL 0.000-0.100 N LYMPHOCYTE # (test code = LY#) 0.97 10 3/uL 1.50-4.00 L MONOCYTE # (test code = MO#) 0.92 10 3/uL 0.20-0.80 H EOSINOPHIL # (test code = EO#) 0.02 10 3/uL 0.0-0.5 N BASOPHIL # (test code = BA#) 0.03 10 3/uL 0.0-0.1 N NUCLEATED RBC # (test code = NRBC#) 0.000 10 3/uL 0.000-0.012 N BASIC METABOLIC [id number] 06:41:00* Test Item Value Reference Range Interpretation Comme nts SODIUM (test code = NA) 124 mmol/L 136-145 L POTASSIUM (test code = K) 3.9 mmol/L 3.5-5.1 N CHLORIDE (test code = CL) 90 mmol/L 98-107 L CARBON DIOXIDE (test code = CO2) 26 mmol/L 20-31 N ANION GAP (test code = GAP) 12.3 2.0-16.0 N GLUCOSE (test code = GLU) 143 mg/dL 74-106 H BLOOD UREA NITROGEN (test code = BUN) 13 mg/dL 9-23 N GLOMERULAR FILTRATION RATE (test code = GFR) >=60 max estimate ml/min The Glomerular Filtration Rate is a calculated parameterbased on serum Creatinine, patient age and sex. GFR valuesless than 60 mL/min/1.73 square meters are indicative ofChronic Kidney Disease. Values less than 15 mL/min/1.73square meters indicate Kidney failure. The calculation forGFR is based on the CKD-EPI (2020) calculation. This formulais race indifferent and is the recommended formula for GFRby the National Kidney Foundation for Adults.The GFR will not calculate if the sex is unknown or if thepatient's age is <18 years. CREATININE (test code = CREAT) 1.0 mg/dL 0.7-1.3 N BUN/CREATININE RATIO (test code = BUN/CREA) 13.0 12.0-20.0 N CALCIUM (test code = CA) 9.3 mg/dL 8.7-10.4 N CBC W/AUTO [id number] 06:17:00* Test Item Value Reference Range Interpretation Comme nts WHITE BLOOD CELL (test code = WBC) 9.2 10 3/uL 4.5-11.0 N RED BLOOD CELL (test code = RBC) 4.38 10 6/uL 4.30-5.90 N HEMOGLOBIN (test code = HGB) 13.5 g/dL 14.0-18.0 L HEMATOCRIT (test code = HCT) 39.4 % 40.0-55.0 L MEAN CELL VOLUME (test code = MCV) 90 fL 81-102 N MEAN CELL HGB (test code = MCH) 30.8 pg 26.0-34.0 N MEAN CELL HGB CONCENTRATION (test code = MCHC) 34.3 g/dL 31.0-37.0 N RED CELL DISTRIBUTION WIDTH (test code = RDW) 13.2 % 11.6-14.4 N PLATELET COUNT (test code = PLT) 217 10 3/uL 150-400 N MEAN PLATELET VOLUME (test code = MPV) 10.0 fL 9.0-12.6 N NEUTROPHIL % (test code = NT%) 92.4 % 33.0-76.0 H IMMATURE GRANULOCYTE % (test code = IG%) 0.5 % 0.0-1.0 N LYMPHOCYTE % (test code = LY%) 4.0 % 14.0-56.4 L MONOCYTE % (test code = MO%) 3.0 % 0.0-12.9 N EOSINOPHIL % (test code = EO%) 0.0 % 0.0-7.0 N BASOPHIL % (test code = BA%) 0.1 % 0-2.0 N NUCLEATED RBC % (test code = NRBC%) 0.0 % 0-0.2 N NEUTROPHIL # (test code = NT#) 8.48 10 3/uL 1.5-7.0 H IMMATURE GRANULOCYTE # (test code = IG#) 0.050 x10 3/uL 0.000-0.100 N LYMPHOCYTE # (test code = LY#) 0.37 10 3/uL 1.50-4.00 L MONOCYTE # (test code = MO#) 0.28 10 3/uL 0.20-0.80 N EOSINOPHIL # (test code = EO#) 0.00 10 3/uL 0.0-0.5 N BASOPHIL # (test code = BA#) 0.01 10 3/uL 0.0-0.1 N NUCLEATED RBC # (test code = NRBC#) 0.000 10 3/uL 0.000-0.012 N BASIC METABOLIC [id number] 07:26:00* Test Item Value Reference Range Interpretation Comme nts SODIUM (test code = NA) 129 mmol/L 136-145 L POTASSIUM (test code = K) 3.9 mmol/L 3.5-5.1 N CHLORIDE (test code = CL) 94 mmol/L 98-107 L CARBON DIOXIDE (test code = CO2) 24 mmol/L 20-31 N ANION GAP (test code = GAP) 14.0 2.0-16.0 N GLUCOSE (test code = GLU) 92 mg/dL 74-106 N BLOOD UREA NITROGEN (test code = BUN) 12 mg/dL 9-23 N GLOMERULAR FILTRATION RATE (test code = GFR) >=60 max estimate ml/min The Glomerular Filtration Rate is a calculated parameterbased on serum Creatinine, patient age and sex. GFR valuesless than 60 mL/min/1.73 square meters are indicative ofChronic Kidney Disease. Values less than 15 mL/min/1.73square meters indicate Kidney failure. The calculation forGFR is based on the CKD-EPI (202) calculation. This formulais race indifferent and is the recommended formula for GFRby the National Kidney Foundation for Adults.The GFR will not calculate if the sex is unknown or if thepatient's age is <18 years. CREATININE (test code = CREAT) 1.0 mg/dL 0.7-1.3 N BUN/CREATININE RATIO (test code = BUN/CREA) 12.0 12.0-20.0 N CALCIUM (test code = CA) 9.4 mg/dL 8.7-10.4 N CBC W/AUTO [id number] 06:54:00* Test Item Value Reference Range Interpretation Comme nts WHITE BLOOD CELL (test code = WBC) 12.2 10 3/uL 4.5-11.0 H RED BLOOD CELL (test code = RBC) 4.70 10 6/uL 4.30-5.90 N HEMOGLOBIN (test code = HGB) 14.7 g/dL 14.0-18.0 N HEMATOCRIT (test code = HCT) 42.9 % 40.0-55.0 N MEAN CELL VOLUME (test code = MCV) 91 fL 81-102 N MEAN CELL HGB (test code = MCH) 31.3 pg 26.0-34.0 N MEAN CELL HGB CONCENTRATION (test code = MCHC) 34.3 g/dL 31.0-37.0 N RED CELL DISTRIBUTION WIDTH (test code = RDW) 13.9 % 11.6-14.4 N PLATELET COUNT (test code = PLT) 198 10 3/uL 150-400 N MEAN PLATELET VOLUME (test code = MPV) 9.7 fL 9.0-12.6 N NEUTROPHIL % (test code = NT%) 87.2 % 33.0-76.0 H IMMATURE GRANULOCYTE % (test code = IG%) 0.5 % 0.0-1.0 N LYMPHOCYTE % (test code = LY%) 5.1 % 14.0-56.4 L MONOCYTE % (test code = MO%) 6.9 % 0.0-12.9 N EOSINOPHIL % (test code = EO%) 0.1 % 0.0-7.0 N BASOPHIL % (test code = BA%) 0.2 % 0-2.0 N NUCLEATED RBC % (test code = NRBC%) 0.0 % 0-0.2 N NEUTROPHIL # (test code = NT#) 10.59 10 3/uL 1.5-7.0 H IMMATURE GRANULOCYTE # (test code = IG#) 0.060 x10 3/uL 0.000-0.100 N LYMPHOCYTE # (test code = LY#) 0.62 10 3/uL 1.50-4.00 L MONOCYTE # (test code = MO#) 0.84 10 3/uL 0.20-0.80 H EOSINOPHIL # (test code = EO#) 0.01 10 3/uL 0.0-0.5 N BASOPHIL # (test code = BA#) 0.03 10 3/uL 0.0-0.1 N NUCLEATED RBC # (test code = NRBC#) 0.000 10 3/uL 0.000-0.012 N UA RFLX MICR CULT IF [id number] 04:30:00* Test Item Value Reference Range Interpretation Comme nts UA COLOR (test code = COLU) STRAW YELLOW UA APPEARANCE (test code = APPU) CLEAR CLEAR UA GLUCOSE DIPSTICK (test co de = DGLUU) NEGATIVE NEGATIVE UA BILIRUBIN DIPSTICK (test code = BILU) NEGATIVE NEGATIVE UA KETONE DIPSTICK (test cod e = KETU) NEGATIVE NEGATIVE UA SPECIFIC GRAVITY (test co de = SGU) 1.010 1.005-1.025 N UA BLOOD DIPSTICK (test code = AMAURY) 2+ NEGATIVE A UA PH DIPSTICK (test code = GRACIE) 6.0 5.0-8.0 UA PROTEIN DIPSTICK (test co de = PROU) NEGATIVE NEGATIVE UA UROBILINOGEN DIPSTICK (te st code = URO) NEGATIVE EU/dL 0.1-0.2 UA NITRITE DIPSTICK (test co de = JELENA) NEGATIVE NEGATIVE UA LEUKOCYTE ESTERASE DIPSTI CK (test code = LEUU) NEGATIVE NEGATIVE UA WBC (test code = WBCU) 6-10 /hpf 0-3 A UA RBC (test code = RBCU) 21-30 /hpf 0-3 A UA BACTERIA (test code = BACU) RARE /HPF NEGATIVE UA SQUAMOUS CELLS (test code = SQU) None seen /HPF FEW Indication for culture: RiskForSepsis-no oth srcSpecimen Description: CLEAN CATCHLIPID PROFILE (CORONARY RISK)2024-05-16 03:36:00* Test Item Value Reference Range Interpretation Comme nts TRIGLYCERIDES (test code = TRIG) 243 mg/dL 0-149 H CHOLESTEROL (test code = CHOL) 217 mg/dL 0-200 H CHOLESTEROL/HDL RATIO (test code = CHOLHDL) 3 1-6 N HDL CHOLESTEROL (test code = HDL) 67 mg/dL 40-59 H According to the National Institutes of Health (NIH) and theNational Cholesterol Education Program (NCEP), an HDLcholesterol >or= 60mg/dL counts as a "negative" risk factor;its presence removes one risk factor from the total count. LIPOPROTEIN LDL (test code = LDLC) 121 mg/dL 0-100 H COVID 19 INHOUSE [id number] 00:43:00* Test Item Value Reference Range Interpretation Comme nts COVID 19 INHOUSE AG (test co de = [id number]) NEGATIVE NEGATIVE LACTIC [id number] 00:15:00* Test Item Value Reference Range Interpretation Comme nts LACTIC ACID (test code = LACT) 1.8 mmol/L 0.5-1.9 N B-TYPE NATRIURETIC [id number] 00:15:00* Test Item Value Reference Range Interpretation Comme nts B-TYPE NATRIURETIC PEPTIDE ( test code = BNP) 140 pg/mL 0-100 H PROTHROMBIN [id number] 23:32:00* Test Item Value Reference Range Interpretation Comme nts PROTHROMBIN TIME PATIENT (test code = PTP) 16.1 SECONDS 9.4-12.5 H INTERNATIONAL NORMAL RATIO (test code = INR) 1.4 RATIO 0.8-1.1 H THE INR IS USEFU L ONLY FOR MONITORING ANTICOAGULANT THERAPY.IT MAY BE UNRELIABLE IN THE INITIAL PHASE OF ANTICOAGULATIONAND IN UNSTABLE PATIENTS. 2.0-3.0 is the recommended INR for the following:Prevention of venous thrombolism in high-risk patients;treatment of venous thrombosis and pulmonary embolism aftera course of heparin; prevention of systemic embolism in avariety of condition, including atrial fibrillation andprosthetic tissue heart valves.2.5-3.5 is the recommended INR for the following:Prosthetic mechanical heart values and/or recurrent systemicembolization. THROMBOPLASTIN TIME [id number] 23:32:00* Test Item Value Reference Range Interpretation Comme nts THROMBOPLASTIN TIME PARTIAL (test code = PTT) 37.2 SECONDS 25.1-36.5 H [id number] 23:32:00* Test Item Value Reference Range Interpretation Comme nts D-DIMER (test code = DDIMER) 589 ng/mLFEU 0-500 H Note: New Refere nve RangeD-Dimer results are reported in ng/mL. These unitscorrespond to ng/mL Fibrinogen Equivalent Units (FEU). TheD-dimer cut-off value is the same as the normal referencerange.A negative D-dimer result when combined with a clinicalassessment of low pretest probability has been shown to havea high negative predictive value for deep vein thrombosis(DVT) and pulmonary embolism (PE). Elevated levels ofD-Dimer are found in clinical conditions such as DVT, PE,and disseminated intravascular coagulation (DIC). BASIC METABOLIC [id number] 23:11:00* Test Item Value Reference Range Interpretation Comme nts SODIUM (test code = NA) 134 mmol/L 136-145 L POTASSIUM (test code = K) 3.5 mmol/L 3.5-5.1 N CHLORIDE (test code = CL) 97 mmol/L 98-107 L CARBON DIOXIDE (test code = CO2) 28 mmol/L 20-31 N ANION GAP (test code = GAP) 12.5 2.0-16.0 N GLUCOSE (test code = GLU) 108 mg/dL 74-106 H BLOOD UREA NITROGEN (test code = BUN) 14 mg/dL 9-23 N GLOMERULAR FILTRATION RATE (test code = GFR) >=60 max estimate ml/min The Glomerular Filtration Rate is a calculated parameterbased on serum Creatinine, patient age and sex. GFR valuesless than 60 mL/min/1.73 square meters are indicative ofChronic Kidney Disease. Values less than 15 mL/min/1.73square meters indicate Kidney failure. The calculation forGFR is based on the CKD-EPI (2020) calculation. This formulais race indifferent and is the recommended formula for GFRby the National Kidney Foundation for Adults.The GFR will not calculate if the sex is unknown or if thepatient's age is <18 years. CREATININE (test code = CREAT) 1.3 mg/dL 0.7-1.3 N BUN/CREATININE RATIO (test code = BUN/CREA) 10.8 12.0-20.0 L CALCIUM (test code = CA) 9.8 mg/dL 8.7-10.4 N LIVER FUNCTION [id number] 23:11:00* Test Item Value Reference Range Interpretation Comme nts TOTAL PROTEIN (test code = PROT) 7.3 g/dL 5.7-8.2 N ALBUMIN (test code = ALB) 4.8 g/dL 3.4-5.0 N GLOBULIN (test code = GLOB) 2.5 g/dL 2.3-3.5 N BILIRUBIN TOTAL (test code = BILT) 0.7 mg/dL 0.2-1.1 N BILIRUBIN DIRECT (test code = BILD) 0.2 mg/dL 0.0-0.3 N BILIRUBIN INDIRECT (test cod e = BILIND) 0.5 mg/dL 0.0-0.8 N SGOT/AST (test code = AST) 16 U/L <34 SGPT/ALT (test code = ALT) 14 U/L 10-49 N ALKALINE PHOSPHATASE (test c ode = ALKP) 91 U/L 46-116 N [id number] 23:11:00* Test Item Value Reference Range Interpretation Comme nts MAGNESIUM (test code = MAG) 1.9 mg/dL 1.6-2.6 N TROP-I HIGH [id number] 23:11:00* Test Item Value Reference Range Interpretation Comme nts TROP-I HIGH SENSITIVITY (test code = TROPIHS) 18 pg/mL 0-78 N CAUTION: U nits of the current test methodology (pg/mL) differ from the prior test methodology (ng/mL) by a factor of 1000. POSITIVE TROPONIN HS IS IDENTIFIED THE FOLLOWING MALE > OR = 78 pg/mL FEMALE > OR = 53 pg/mL ALL CRITICAL TROPI HS HAVE BEEN IDENTIFIED MALE OR FEMALE > OR = 120 pg/mL CBC W/O [id number] 23:05:00* Test Item Value Reference Range Interpretation Comme nts WHITE BLOOD CELL (test code = WBC) 13.8 10 3/uL 4.5-11.0 H RED BLOOD CELL (test code = RBC) 4.80 10 6/uL 4.30-5.90 N HEMOGLOBIN (test code = HGB) 14.9 g/dL 14.0-18.0 N HEMATOCRIT (test code = HCT) 44.2 % 40.0-55.0 N MEAN CELL VOLUME (test code = MCV) 92 fL 81-102 N MEAN CELL HGB (test code = MCH) 31.0 pg 26.0-34.0 N MEAN CELL HGB CONCENTRATION (test code = MCHC) 33.7 g/dL 31.0-37.0 N RED CELL DISTRIBUTION WIDTH (test code = RDW) 14.1 % 11.6-14.4 N PLATELET COUNT (test code = PLT) 201 10 3/uL 150-400 N POC,B TYPE NATRIURETIC [id number] 14:26:00* Test Item Value Reference Range Interpretation Comme [facility] POC,B TYPE NATRIURETIC PEPTIDE (test code = EDBNP) 152 pg/mL <100 H The [facility] BNP Test offers an objective, noninvasivemeasurement for assessing patients for CHF and riskstratification in patients with acute coronary syndromes(ACS). Test results should be evaluated in the context of all theclinical and laboratory data available. In those instanceswhere test results do not agree with the clinicalevaluation, additional tests should be performedaccordingly. Results using different methodologies shouldnot be compared to one another as quantitative results mayvary by method. EXPECTED VALUES:BNP results less than or equal to 100 pg/mL arerepresentative of normal values in patients without CHF. BNP results greater than 100 pg/mL are considered abnormaland suggestive of patients with CHF. BNP results of greater than 5000 pg/mL are considered veryhigh values for BNP and exceed upper limits of the BNP test. Higher BNP concentrations measured in the first 72 hoursafter an acute coronary syndrome are associated with anincreased risk of , myocardial infarction, and CHF. Higher BNP concentrations or the lack of decrease in the BNPconcentration from hospital admission to discharge indicatean increased risk of hospitalization or in patientswith heart failure. [facility], [address] [place] [address], [place], [place],TROPONIN [id number] 12:59:00* Test Item Value Reference Range Interpretation Comme [facility] POC,TROPONIN I (test code = EDTROPI) <0.05 ng/mL <0.05 N The [facility] Troponin Test is used as an aid in thediagnosis of myocardial infarction (injury). Test results should not be used as absolute evidence ofmyocardial infarction and should be evaluated in the contextof all the clinical and laboratory data available. In thoseinstances where the test results do not agree with theclinical evaluation, additional tests should be performedaccordingly. [facility], [address], [place], TXCOMPREHENSIVE METABOLIC [id number] 12:47:00* Test Item Value Reference Range Interpretation Comme nts POC,SODIUM (test code = GERALDO) 137 mmol/L 128-145 N POC,POTASSIUM (test code = EDK) 4.8 mmol/L 3.6-5.1 N POC,CHLORIDE (test code = EDCL) 98 mmol/L 98-108 N POC,TCO2 (test code = EDTCO2) 33 mmol/L 18-33 N POC,ANION GAP (test code = EDAGAP) 6 mmol/L 4-14 N POC,BUN (test code = EDBUN) 18 mg/dL 7-22 N POC,CREATININE (test code = EDCRE) 1.2 mg/dL 0.6-1.2 N POC,GLUCOSE (test code = EDGLUC) 143 mg/dL 73-118 H POC,CALCIUM (test code = EDCA) 9.5 mg/dL 8.0-10.3 N POC,eGFR (test code = EDGFR) 68 mL/min >=60 eGFR is not calc ulated if age <18 yrs, if the sex in EHR islisted as unknown or the creatinine level is below assayrange.This result value is determined by the eGFR 2021 CKD-EPIformula using serum creatinine, age and sex, excluding arace coefficient. The assay for creatinine is traceable tothe IDMS reference method. Chronic kidney disease (CKD) maynot be detectable based solely on creatinine levels. A eGFR> 60 does not rule out mild renal disease. To distinguishnormal renal function from mild renal disease, furtherlaboratory testing may be required. POC,ALBUMIN (test code = EDALB) 4.1 g/dL 3.3-5.5 N POC,TOTAL PROTEIN (test code = EDTP) 7.3 g/dL 6.4-8.1 N POC,BILIRUBIN TOTAL (test code = EDTBIL) 0.8 mg/dL 0.2-1.6 N POC,AST (test code = EDAST) 30 U/L 11-38 N POC,ALT (test code = EDALT) 28 U/L 10-47 N POC,ALKALINE PHOSPHATASE (test code = EDALP) 68 U/L 53-128 N [facility], [address], [place], [place] AUTOM[place] 2024-04-14 12:37:00* Test Item Value Reference Range Interpretation Comme [facility] POC,URINE COLOR (test code = EDCOLU) Yellow Yellow Substances that cause abnormal urine color may affect thereadability of test pads on the urinalysis reagent strips.These substances include visible levels of blood orbilirubin and drugs containing dyes, nitrofurantoin, orriboflavin. POC,URINE CLARITY (test code = EDCLARITY) Clear Clear POC,URINE GLUCOSE (test code = EDGLUU) Negative Negative POC,URINE BILIRUBIN (test code = EDBILIU) Negative Negative POC,URINE KETONES (test code = EDKETU) Negative Negative POC,URINE SPECIFIC GRAVITY (test code = EDSGU) 1.015 1.001-1.035 N POC,URINE BLOOD (test code = EDBLDU) Negative Negative POC,URINE pH (test code = EDPH) 7.0 5.0-8.0 N POC,URINE PROTEIN (test code = EDPROTU) Negative Negative POC,URINE UROBILINOGEN (test code = EDURO) 0.2 E.U/dL 0.2-1.0 POC,URINE NITRITE (test code = EDNIT) Negative Negative POC,URINE LEUKOCYTE ESTERASE (test code = EDLEUK) Negative Negative [facility], [address], [place], [place]COMPLETE BLOOD COUNT (CBC)2024-04-14 12:34:00* Test Item Value Reference Range Interpretation Comme nts POC,WHITE BLOOD CELL (test c ode = EDWBCP) 8.1 10 3/uL 3.9-9.4 N POC,RED BLOOD CELL (test cod e = EDRBCP) 4.77 10 6/uL 4.14-5.52 N POC,HEMOGLOBIN (test code = EDHGBP) 14.8 g/dL 11.9-16.7 N POC,HEMATOCRIT (test code = EDHCTP) 44.5 % 36.1-49.4 N POC,MEAN CELL VOLUME (test c ode = EDMCVP) 93.3 fL 83.2-96.0 N POC,MEAN CELL HEMOGLOBIN (te st code = EDMCHP) 31.0 pg 27.1-32.5 N POC,MEAN CELL HGB CONC (test code = EDMCHCP) 33.3 g/dL 31.0-35.8 N POC,PLATELET COUNT (test cod e = EDPLTP) 199 10 3/uL 155-330 N POC,RED CELL DISTRIB WIDTH ( test code = EDRDWP) 14.1 % 12.0-15.0 N POC,LYMPHOCYTES % (test code = EDLYM%P) 18.7 % 16.8-42.5 N POC,MIXED CELLS % (test code = EDMXD%P) 2.9 % 3.2-16.9 L POC,NEUTROPHILS % (test code = EDNEUT%P) 78.4 % 46.4-74.7 H POC,LYMPHOCYTES # (test code = EDLYM#P) 1.5 10 3/uL 0.9-3.0 N POC,MIXED CELLS # (test code = EDMXD#P) 0.2 10 3/uL 0.2-1.1 N POC,NEUTROPHILS # (test code = EDNEUT#P) 6.4 10 3/uL 2.2-6.4 N POC,MEAN PLATELET VOLUME (te st code = EDMPVP) 9.6 fL 8.7-12.6 N [facility], [address], [place], JARONVENOUS BLOOD GAS 2024-04-02 17:48:00* Test Item Value Reference Range Interpretation Comme nts VENOUS BLOOD GAS PH (test code = PHV) 7.39 7.35-7.45 N VENOUS BLOOD GAS PCO2 (test code = PCO2V) 46.5 mmHg See_Comment [Automated [employer]] The system which generated this result transmitted reference range: 46. The reference range was not used to interpret this result as normal/abnormal. VENOUS BLOOD GAS PO2 (test code = PO2V) 40.1 mmHg See_Comment [Automated messa ge] The system which generated this result transmitted reference range: 40. The reference range was not used to interpret this result as normal/abnormal. VBG HCO3 (test code = HCO3V) 27 meq/L VBG BASE EXCESS (test code = NATALYA) 1.9 MMOL/L VENOUS BLOOD GAS O2 SAT (test code = O2SATV) 73 % See_Comment [Automated messa ge] The system which generated this result transmitted reference range: 75. The reference range was not used to interpret this result as normal/abnormal. VENOUS BLOOD GAS TYPE (test code = TYPEV) Venous VENOUS BLOOD GAS FIO2 (test code = FIO2V) 28.0 % VBG VENT MODE (test code = MODEV) . BLOOD GAS [id number] 10:20:00* Test Item Value Reference Range Interpretation Comme nts ARTERIAL BLOOD GAS PH (test code = PHA) 7.44 7.35-7.45 N ARTERIAL BLOOD GAS PCO2 (test code = PCO2A) 30.7 mmHg 35.0-45.0 L ARTERIAL BLOOD GAS PO2 (test code = PO2A) 76.8 mmHg 80.0-95.0 L BICARBONATE TOTAL HCO3 (test code = HCO3) 20.4 mmol/L 22.0-24.0 L BASE EXCESS (test code = UZIEL) -2.9 mmol/L See_Comment L [Automated message] The system which generated this result transmitted reference range: (+/-)2.0. The reference range was not used to interpret this result as normal/abnormal. ABG O2 SATURATION (test code = SATA) 95.5 % 95.0-100.0 N ARTERIAL FIO2 (test code = FIO2A) 60.0 % ABG VENT MODE (test code = MODEA) Ventilator ALLENS TEST (test code = ALLENS) NOT APPLICABLE SODIUM (POC) (test code = NA/ABG) 131 mmol/L 135-147 L POTASSIUM (POC) (test code = K/ABG) 3.65 mmol/L 3.6-5.2 N CHLORIDE (ARTERIAL) (test code = CL/ABG) 103 mmol/L 98-108 N GLUCOSE (test code = GLU/ABG) 83 mg/dL 70-104 N IONIZED CALCIUM (test code = CAIABG) 1.19 mmol/L 1.12-1.32 N POC LACTIC ACID (test code = POCLAC) 0.99 mmol/L 0.5-2.2 N TOTAL HGB (test code = THB) 10.5 g/dL 13.0-17.0 L CARBOXYHEMOGLOBIN (test code = HOHGBT) 0.2 % 0-5.0 N METHEMOGLOBIN (test code = METHGB) <0.8 % 0-1.5 N HHb (test code = HHB) 4.5 % TCO2 ARTERIAL (test code = TCO2A) 21.4 MMOL/L 24-30 L BLOOD GAS [id number] 10:20:00* Test Item Value Reference Range Interpretation Comme nts ARTERIAL BLOOD GAS PH (test code = PHA) 7.49 7.35-7.45 H ARTERIAL BLOOD GAS PCO2 (test code = PCO2A) 31.6 mmHg 35.0-45.0 L ARTERIAL BLOOD GAS PO2 (test code = PO2A) 99.6 mmHg 80.0-95.0 H BICARBONATE TOTAL HCO3 (test code = HCO3) 23.3 mmol/L 22.0-24.0 N BASE EXCESS (test code = UZIEL) 0.5 mmol/L See_Comment N [Automated message] The system which generated this result transmitted reference range: (+/-)2.0. The reference range was not used to interpret this result as normal/abnormal. ABG O2 SATURATION (test code = SATA) 98.0 % 95.0-100.0 N ARTERIAL FIO2 (test code = FIO2A) 60.0 % ALLENS TEST (test code = ALLENS) NOT APPLICABLE SODIUM (POC) (test code = NA/ABG) 135 mmol/L 135-147 N POTASSIUM (POC) (test code = K/ABG) 3.50 mmol/L 3.6-5.2 L CHLORIDE (ARTERIAL) (test code = CL/ABG) 101 mmol/L 98-108 N GLUCOSE (test code = GLU/ABG) 85 mg/dL 70-104 N IONIZED CALCIUM (test code = CAIABG) 1.18 mmol/L 1.12-1.32 N POC LACTIC ACID (test code = POCLAC) 1.49 mmol/L 0.5-2.2 N TOTAL HGB (test code = THB) 11.7 g/dL 13.0-17.0 L OXYHEMOGLOBIN (test code = OOHGBT) 96.8 % 92.0-98.0 N CARBOXYHEMOGLOBIN (test code = HOHGBT) 0.9 % 0-5.0 N METHEMOGLOBIN (test code = METHGB) <0.8 % 0-1.5 N HHb (test code = HHB) 2.0 % TCO2 ARTERIAL (test code = TCO2A) 24.3 MMOL/L 24-30 N BASIC METABOLIC [id number] 07:52:00* Test Item Value Reference Range Interpretation Comme nts SODIUM (test code = NA) 141 mmol/L 136-145 N POTASSIUM (test code = K) 3.9 mmol/L 3.5-5.1 N CHLORIDE (test code = CL) 102 mmol/L 98-107 N CARBON DIOXIDE (test code = CO2) 32 mmol/L 20-31 H ANION GAP (test code = GAP) 10.5 2.0-16.0 N GLUCOSE (test code = GLU) 97 mg/dL 74-106 N BLOOD UREA NITROGEN (test code = BUN) 18 mg/dL 9-23 N GLOMERULAR FILTRATION RATE (test code = GFR) >=60 max estimate ml/min The Glomerular Filtration Rate is a calculated parameterbased on serum Creatinine, patient age and sex. GFR valuesless than 60 mL/min/1.73 square meters are indicative ofChronic Kidney Disease. Values less than 15 mL/min/1.73square meters indicate Kidney failure. The calculation forGFR is based on the CKD-EPI (2020) calculation. This formulais race indifferent and is the recommended formula for GFRby the National Kidney Foundation for Adults.The GFR will not calculate if the sex is unknown or if thepatient's age is <18 years. CREATININE (test code = CREAT) 1.3 mg/dL 0.7-1.3 N BUN/CREATININE RATIO (test code = BUN/CREA) 13.8 12.0-20.0 N CALCIUM (test code = CA) 9.5 mg/dL 8.7-10.4 N VANCOMYCIN [id number] 16:02:00* Test Item Value Reference Range Interpretation Comme nts VANCOMYCIN TROUGH (test code = VANCT) 17.1 ug/mL 10.0-20.0 N BASIC METABOLIC [id number] 07:17:00* Test Item Value Reference Range Interpretation Comme nts SODIUM (test code = NA) 136 mmol/L 136-145 N POTASSIUM (test code = K) 3.9 mmol/L 3.5-5.1 N CHLORIDE (test code = CL) 100 mmol/L 98-107 N CARBON DIOXIDE (test code = CO2) 29 mmol/L 20-31 N ANION GAP (test code = GAP) 11.2 2.0-16.0 N GLUCOSE (test code = GLU) 93 mg/dL 74-106 N BLOOD UREA NITROGEN (test code = BUN) 17 mg/dL 9-23 N GLOMERULAR FILTRATION RATE (test code = GFR) >=60 max estimate ml/min The Glomerular Filtration Rate is a calculated parameterbased on serum Creatinine, patient age and sex. GFR valuesless than 60 mL/min/1.73 square meters are indicative ofChronic Kidney Disease. Values less than 15 mL/min/1.73square meters indicate Kidney failure. The calculation forGFR is based on the CKD-EPI (2020) calculation. This formulais race indifferent and is the recommended formula for GFRby the National Kidney Foundation for Adults.The GFR will not calculate if the sex is unknown or if thepatient's age is <18 years. CREATININE (test code = CREAT) 1.2 mg/dL 0.7-1.3 N BUN/CREATININE RATIO (test code = BUN/CREA) 14.2 12.0-20.0 N CALCIUM (test code = CA) 9.3 mg/dL 8.7-10.4 N CBC W/AUTO [id number] 07:01:00* Test Item Value Reference Range Interpretation Comme nts WHITE BLOOD CELL (test code = WBC) 7.9 10 3/uL 4.5-11.0 N RED BLOOD CELL (test code = RBC) 4.78 10 6/uL 4.30-5.90 N HEMOGLOBIN (test code = HGB) 14.6 g/dL 14.0-18.0 N HEMATOCRIT (test code = HCT) 45.2 % 40.0-55.0 N MEAN CELL VOLUME (test code = MCV) 95 fL 81-102 N MEAN CELL HGB (test code = MCH) 30.5 pg 26.0-34.0 N MEAN CELL HGB CONCENTRATION (test code = MCHC) 32.3 g/dL 31.0-37.0 N RED CELL DISTRIBUTION WIDTH (test code = RDW) 14.2 % 11.6-14.4 N PLATELET COUNT (test code = PLT) 207 10 3/uL 150-400 N MEAN PLATELET VOLUME (test code = MPV) 10.0 fL 9.0-12.6 N NEUTROPHIL % (test code = NT%) 64.6 % 33.0-76.0 N IMMATURE GRANULOCYTE % (test code = IG%) 0.5 % 0.0-1.0 N LYMPHOCYTE % (test code = LY%) 19.2 % 14.0-56.4 N MONOCYTE % (test code = MO%) 9.5 % 0.0-12.9 N EOSINOPHIL % (test code = EO%) 5.4 % 0.0-7.0 N BASOPHIL % (test code = BA%) 0.8 % 0-2.0 N NUCLEATED RBC % (test code = NRBC%) 0.0 % 0-0.2 N NEUTROPHIL # (test code = NT#) 5.10 10 3/uL 1.5-7.0 N IMMATURE GRANULOCYTE # (test code = IG#) 0.040 x10 3/uL 0.000-0.100 N LYMPHOCYTE # (test code = LY#) 1.52 10 3/uL 1.50-4.00 N MONOCYTE # (test code = MO#) 0.75 10 3/uL 0.20-0.80 N EOSINOPHIL # (test code = EO#) 0.43 10 3/uL 0.0-0.5 N BASOPHIL # (test code = BA#) 0.06 10 3/uL 0.0-0.1 N NUCLEATED RBC # (test code = NRBC#) 0.000 10 3/uL 0.000-0.012 N BASIC METABOLIC [id number] 14:58:00* Test Item Value Reference Range Interpretation Comme nts SODIUM (test code = NA) 135 mmol/L 136-145 L POTASSIUM (test code = K) 4.3 mmol/L 3.5-5.1 N CHLORIDE (test code = CL) 101 mmol/L 98-107 N CARBON DIOXIDE (test code = CO2) 29 mmol/L 20-31 N ANION GAP (test code = GAP) 9.6 2.0-16.0 N GLUCOSE (test code = GLU) 83 mg/dL 74-106 N BLOOD UREA NITROGEN (test code = BUN) 16 mg/dL 9-23 N GLOMERULAR FILTRATION RATE (test code = GFR) >=60 max estimate ml/min The Glomerular Filtration Rate is a calculated parameterbased on serum Creatinine, patient age and sex. GFR valuesless than 60 mL/min/1.73 square meters are indicative ofChronic Kidney Disease. Values less than 15 mL/min/1.73square meters indicate Kidney failure. The calculation forGFR is based on the CKD-EPI (2020) calculation. This formulais race indifferent and is the recommended formula for GFRby the National Kidney Foundation for Adults.The GFR will not calculate if the sex is unknown or if thepatient's age is <18 years. CREATININE (test code = CREAT) 1.3 mg/dL 0.7-1.3 N BUN/CREATININE RATIO (test code = BUN/CREA) 12.3 12.0-20.0 N CALCIUM (test code = CA) 9.5 mg/dL 8.7-10.4 N TROP-I HIGH [id number] 13:14:00* Test Item Value Reference Range Interpretation Comme nts TROP-I HIGH SENSITIVITY (test code = TROPIHS) 18 pg/mL 0-78 N CAUTION: U nits of the current test methodology (pg/mL) differ from the prior test methodology (ng/mL) by a factor of 1000. POSITIVE TROPONIN HS IS IDENTIFIED THE FOLLOWING MALE > OR = 78 pg/mL FEMALE > OR = 53 pg/mL ALL CRITICAL TROPI HS HAVE BEEN IDENTIFIED MALE OR FEMALE > OR = 120 pg/mL PROTHROMBIN [id number] 10:52:00* Test Item Value Reference Range Interpretation Comme nts PROTHROMBIN TIME PATIENT (test code = PTP) 12.4 SECONDS 9.4-12.5 N INTERNATIONAL NORMAL RATIO (test code = INR) 1.1 RATIO 0.8-1.1 N THE INR IS USEFU L ONLY FOR MONITORING ANTICOAGULANT THERAPY.IT MAY BE UNRELIABLE IN THE INITIAL PHASE OF ANTICOAGULATIONAND IN UNSTABLE PATIENTS. 2.0-3.0 is the recommended INR for the following:Prevention of venous thrombolism in high-risk patients;treatment of venous thrombosis and pulmonary embolism aftera course of heparin; prevention of systemic embolism in avariety of condition, including atrial fibrillation andprosthetic tissue heart valves.2.5-3.5 is the recommended INR for the following:Prosthetic mechanical heart values and/or recurrent systemicembolization. TROP-I HIGH [id number] 10:17:00* Test Item Value Reference Range Interpretation Comme nts TROP-I HIGH SENSITIVITY (test code = TROPIHS) 14 pg/mL 0-78 N CAUTION: U nits of the current test methodology (pg/mL) differ from the prior test methodology (ng/mL) by a factor of 1000. POSITIVE TROPONIN HS IS IDENTIFIED THE FOLLOWING MALE > OR = 78 pg/mL FEMALE > OR = 53 pg/mL ALL CRITICAL TROPI HS HAVE BEEN IDENTIFIED MALE OR FEMALE > OR = 120 pg/mL LACTIC [id number] 07:17:00* Test Item Value Reference Range Interpretation Comme nts LACTIC ACID (test code = LACT) 1.8 mmol/L 0.5-2.2 N LIPID PROFILE (CORONARY RISK)2024-02-22 06:37:00* Test Item Value Reference Range Interpretation Comme nts TRIGLYCERIDES (test code = TRIG) 247 mg/dL 0-149 H CHOLESTEROL (test code = CHOL) 237 mg/dL 0-200 H CHOLESTEROL/HDL RATIO (test code = CHOLHDL) 4 1-6 N HDL CHOLESTEROL (test code = HDL) 67 mg/dL 40-59 H According to the National Institutes of Health (NIH) and theNational Cholesterol Education Program (NCEP), an HDLcholesterol >or= 60mg/dL counts as a "negative" risk factor;its presence removes one risk factor from the total count. LIPOPROTEIN LDL (test code = LDLC) 128 mg/dL 0-100 H TROP-I HIGH [id number] 06:37:00* Test Item Value Reference Range Interpretation Comme nts TROP-I HIGH SENSITIVITY (test code = TROPIHS) 20 pg/mL 0-78 N CAUTION: U nits of the current test methodology (pg/mL) differ from the prior test methodology (ng/mL) by a factor of 1000. POSITIVE TROPONIN HS IS IDENTIFIED THE FOLLOWING MALE > OR = 78 pg/mL FEMALE > OR = 53 pg/mL ALL CRITICAL TROPI HS HAVE BEEN IDENTIFIED MALE OR FEMALE > OR = 120 pg/mL POC,TROPONIN [id number] 04:14:00* Test Item Value Reference Range Interpretation Comme nts POC,TROPONIN I (test code = EDTROPI) <0.05 ng/mL <0.05 N The [employer] Troponin Test is used as an aid in thediagnosis of myocardial infarction (injury). Test results should not be used as absolute evidence ofmyocardial infarction and should be evaluated in the contextof all the clinical and laboratory data available. In thoseinstances where the test results do not agree with theclinical evaluation, additional tests should be performedaccordingly. [facility] [address], [place], [place]POC,B TYPE NATRIURETIC [id number] 04:01:00* Test Item Value Reference Range Interpretation Comme nts POC,B TYPE NATRIURETIC PEPTIDE (test code = EDBNP) 99 pg/mL <100 N The [employer] BNP Test offers an objective, noninvasivemeasurement for assessing patients for CHF and riskstratification in patients with acute coronary syndromes(ACS). Test results should be evaluated in the context of all theclinical and laboratory data available. In those instanceswhere test results do not agree with the clinicalevaluation, additional tests should be performedaccordingly. Results using different methodologies shouldnot be compared to one another as quantitative results mayvary by method. EXPECTED VALUES:BNP results less than or equal to 100 pg/mL arerepresentative of normal values in patients without CHF. BNP results greater than 100 pg/mL are considered abnormaland suggestive of patients with CHF. BNP results of greater than 5000 pg/mL are considered veryhigh values for BNP and exceed upper limits of the BNP test. Higher BNP concentrations measured in the first 72 hoursafter an acute coronary syndrome are associated with anincreased risk of , myocardial infarction, and CHF. Higher BNP concentrations or the lack of decrease in the BNPconcentration from hospital admission to discharge indicatean increased risk of hospitalization or in patientswith heart failure. [facility], [address] [place] [address], [place], [place]COMPREHENSIVE METABOLIC [id number] 03:57:00* Test Item Value Reference Range Interpretation Comme nts POC,SODIUM (test code = GERALDO) 143 mmol/L 128-145 N POC,POTASSIUM (test code = EDK) 4.7 mmol/L 3.6-5.1 N POC,CHLORIDE (test code = EDCL) 106 mmol/L 98-108 N POC,TCO2 (test code = EDTCO2) 31 mmol/L 18-33 N POC,ANION GAP (test code = EDAGAP) 6 mmol/L 4-14 N POC,BUN (test code = EDBUN) 16 mg/dL 7-22 N POC,CREATININE (test code = EDCRE) 1.3 mg/dL 0.6-1.2 H POC,GLUCOSE (test code = EDGLUC) 108 mg/dL 73-118 N POC,CALCIUM (test code = EDCA) 9.7 mg/dL 8.0-10.3 N POC,eGFR (test code = EDGFR) 62 mL/min >=60 eGFR is not calc ulated if age <18 yrs, if the sex in EHR islisted as unknown or the creatinine level is below assayrange.This result value is determined by the eGFR 2021 CKD-EPIformula using serum creatinine, age and sex, excluding arace coefficient. The assay for creatinine is traceable tothe IDNC reference method. Chronic kidney disease (CKD) maynot be detectable based solely on creatinine levels. A eGFR> 60 does not rule out mild renal disease. To distinguishnormal renal function from mild renal disease, furtherlaboratory testing may be required. POC,ALBUMIN (test code = EDALB) 3.5 g/dL 3.3-5.5 N POC,TOTAL PROTEIN (test code = EDTP) 7.2 g/dL 6.4-8.1 N POC,BILIRUBIN TOTAL (test code = EDTBIL) 0.5 mg/dL 0.2-1.6 N POC,AST (test code = EDAST) 42 U/L 11-38 H POC,ALT (test code = EDALT) 41 U/L 10-47 N POC,ALKALINE PHOSPHATASE (test code = EDALP) 115 U/L 53-128 N [facility] [address], [place], [place]COMPLETE BLOOD COUNT (CBC)2024-02-22 03:44:00* Test Item Value Reference Range Interpretation Comme nts POC,WHITE BLOOD CELL (test c ode = EDWBCP) 6.6 10 3/uL 3.9-9.4 N POC,RED BLOOD CELL (test cod e = EDRBCP) 4.70 10 6/uL 4.14-5.52 N POC,HEMOGLOBIN (test code = EDHGBP) 14.9 g/dL 11.9-16.7 N POC,HEMATOCRIT (test code = EDHCTP) 45.6 % 36.1-49.4 N POC,MEAN CELL VOLUME (test c ode = EDMCVP) 97.0 fL 83.2-96.0 H POC,MEAN CELL HEMOGLOBIN (te st code = EDMCHP) 31.7 pg 27.1-32.5 N POC,MEAN CELL HGB CONC (test code = EDMCHCP) 32.7 g/dL 31.0-35.8 N POC,PLATELET COUNT (test cod e = EDPLTP) 180 10 3/uL 155-330 N POC,RED CELL DISTRIB WIDTH ( test code = EDRDWP) 15.2 % 12.0-15.0 H POC,LYMPHOCYTES % (test code = EDLYM%P) 32.0 % 16.8-42.5 N POC,MIXED CELLS % (test code = EDMXD%P) 8.3 % 3.2-16.9 N POC,NEUTROPHILS % (test code = EDNEUT%P) 59.7 % 46.4-74.7 N POC,LYMPHOCYTES # (test code = EDLYM#P) 2.1 10 3/uL 0.9-3.0 N POC,MIXED CELLS # (test code = EDMXD#P) 0.5 10 3/uL 0.2-1.1 N POC,NEUTROPHILS # (test code = EDNEUT#P) 4.0 10 3/uL 2.2-6.4 N POC,MEAN PLATELET VOLUME (te st code = EDMPVP) 10.7 fL 8.7-12.6 N [facility], [address], [place], [place]VENOUS BLOOD GAS 2024-02-21 01:55:00* Test Item Value Reference Range Interpretation [facility] VEN[facility] BLO[facility] G[facility] PH (test code = PHV) 7.32 7.35-7.45 L VENOUS BLOOD GAS PCO2 (test code = PCO2V) 48.9 mmHg See_Comment [Automated messa ge] The system which generated this result transmitted reference range: 46. The reference range was not used to interpret this result as normal/abnormal. VENOUS BLOOD GAS PO2 (test code = PO2V) 38.5 mmHg See_Comment [Automated messa ge] The system which generated this result transmitted reference range: 40. The reference range was not used to interpret this result as normal/abnormal. VBG HCO3 (test code = HCO3V) 25 meq/L VBG BASE EXCESS (test code = NATALYA) -1.8 MMOL/L VENOUS BLOOD GAS O2 SAT (test code = O2SATV) 67 % See_Comment [Automated messa ge] The system which generated this result transmitted reference range: 75. The reference range was not used to interpret this result as normal/abnormal. VENOUS BLOOD GAS TYPE (test code = TYPEV) Venous VENOUS BLOOD GAS FIO2 (test code = FIO2V) 60.0 % VBG VENT MODE (test code = MODEV) Ventilator POC,COVID [id number] 11:43:00* Test Item Value Reference Range Interpretation [facility] POC,COVID AG (test code = [id number]) Negative Negative [facility] [address], [place], TXINFLUENZA A B ANTIGEN 2024-02-15 11:43:00* Test Item Value Reference Range Interpretation [facility] POC,INFLUENZA A ANTIGEN (kristina t code = EDINFLAGA) Negative Negative POC,INFLUENZA B ANTIGEN (kristina t code = EDINFLAGB) Negative Negative [facility], [address] [place] [address], [place], [id number] 08:04:00* Test Item Value Reference Range Interpretation [facility] GLUBED (test code = GLUBED) 115 mg/dL 70-105 H Intravenous admi nistration of N-acetylcysteine which resultsin blood concentrations >5 mg/dL will cause overestimationof blood glucose results. Do not use during intravenousinfusion of N'acetylcysteine. [id number] 06:24:00* Test Item Value Reference Range Interpretation Comme nts GLUBED (test code = GLUBED) 97 mg/dL 70-105 N Intravenous admi nistration of N-acetylcysteine which resultsin blood concentrations >5 mg/dL will cause overestimationof blood glucose results. Do not use during intravenousinfusion of N'acetylcysteine. LIPID PROFILE (CORONARY RISK)2024-01-30 15:43:00* Test Item Value Reference Range Interpretation Comme nts TRIGLYCERIDES (test code = TRIG) 115 mg/dL 0-149 N CHOLESTEROL (test code = CHOL) 166 mg/dL 0-200 N CHOLESTEROL/HDL RATIO (test code = CHOLHDL) 2 1-6 N HDL CHOLESTEROL (test code = HDL) 74 mg/dL 40-59 H According to the National Institutes of Health (NIH) and theNational Cholesterol Education Program (NCEP), an HDLcholesterol >or= 60mg/dL counts as a "negative" risk factor;its presence removes one risk factor from the total count. LIPOPROTEIN LDL (test code = LDLC) 53 mg/dL 0-100 N BASIC METABOLIC [id number] 05:19:00* Test Item Value Reference Range Interpretation Comme nts SODIUM (test code = NA) 135 mmol/L 136-145 L POTASSIUM (test code = K) 3.8 mmol/L 3.5-5.1 N CHLORIDE (test code = CL) 97 mmol/L 98-107 L CARBON DIOXIDE (test code = CO2) 29 mmol/L 20-31 N ANION GAP (test code = GAP) 12.2 2.0-16.0 N GLUCOSE (test code = GLU) 104 mg/dL 74-106 N BLOOD UREA NITROGEN (test code = BUN) 17 mg/dL 9-23 N GLOMERULAR FILTRATION RATE (test code = GFR) >=60 max estimate ml/min The Glomerular Filtration Rate is a calculated parameterbased on serum Creatinine, patient age and sex. GFR valuesless than 60 mL/min/1.73 square meters are indicative ofChronic Kidney Disease. Values less than 15 mL/min/1.73square meters indicate Kidney failure. The calculation forGFR is based on the CKD-EPI (2020) calculation. This formulais race indifferent and is the recommended formula for GFRby the National Kidney Foundation for Adults.The GFR will not calculate if the sex is unknown or if thepatient's age is <18 years. CREATININE (test code = CREAT) 1.1 mg/dL 0.7-1.3 N BUN/CREATININE RATIO (test code = BUN/CREA) 15.5 12.0-20.0 N CALCIUM (test code = CA) 9.9 mg/dL 8.7-10.4 N [id number] 05:19:00* Test Item Value Reference Range Interpretation Comme nts PHOSPHOROUS (test code = PHOS) 2.6 mg/dL 2.4-5.1 N [id number] 05:19:00* Test Item Value Reference Range Interpretation Comme nts MAGNESIUM (test code = MAG) 2.0 mg/dL 1.6-2.6 N CBC W/AUTO [id number] 04:58:00* Test Item Value Reference Range Interpretation Comme nts WHITE BLOOD CELL (test code = WBC) 11.2 10 3/uL 4.5-11.0 H RED BLOOD CELL (test code = RBC) 4.64 10 6/uL 4.30-5.90 N HEMOGLOBIN (test code = HGB) 14.7 g/dL 14.0-18.0 N HEMATOCRIT (test code = HCT) 43.1 % 40.0-55.0 N MEAN CELL VOLUME (test code = MCV) 93 fL 81-102 MEAN CELL HGB (test code = MCH) 31.7 pg 26.0-34.0 N MEAN CELL HGB CONCENTRATION (test code = MCHC) 34.1 g/dL 31.0-37.0 N RED CELL DISTRIBUTION WIDTH (test code = RDW) 17.3 % 11.6-14.4 H PLATELET COUNT (test code = PLT) 144 10 3/uL 150-400 L MEAN PLATELET VOLUME (test code = MPV) 9.9 fL 9.0-12.6 N NEUTROPHIL % (test code = NT%) 81.6 % 33.0-76.0 H IMMATURE GRANULOCYTE % (test code = IG%) 0.6 % 0.0-1.0 N LYMPHOCYTE % (test code = LY%) 7.3 % 14.0-56.4 L MONOCYTE % (test code = MO%) 8.0 % 0.0-12.9 N EOSINOPHIL % (test code = EO%) 2.1 % 0.0-7.0 N BASOPHIL % (test code = BA%) 0.4 % 0-2.0 N NUCLEATED RBC % (test code = NRBC%) 0.0 % 0-0.2 N NEUTROPHIL # (test code = NT#) 9.12 10 3/uL 1.5-7.0 H IMMATURE GRANULOCYTE # (test code = IG#) 0.070 x10 3/uL 0.000-0.100 N LYMPHOCYTE # (test code = LY#) 0.82 10 3/uL 1.50-4.00 L MONOCYTE # (test code = MO#) 0.89 10 3/uL 0.20-0.80 H EOSINOPHIL # (test code = EO#) 0.24 10 3/uL 0.0-0.5 N BASOPHIL # (test code = BA#) 0.05 10 3/uL 0.0-0.1 N NUCLEATED RBC # (test code = NRBC#) 0.000 10 3/uL 0.000-0.012 N LIPID PROFILE (CORONARY RISK)2024-01-29 15:42:00* Test Item Value Reference Range Interpretation Comme nts TRIGLYCERIDES (test code = TRIG) 154 mg/dL 0-149 H According to the National Institutes of Health (NIH) and theNational Cholesterol Education Program (NCEP), serumtriglyceride levels between 150-199mg/dL are consideredBorderline High. CHOLESTEROL (test code = CHOL) 172 mg/dL 0-200 N CHOLESTEROL/HDL RATIO (test code = CHOLHDL) 2 1-6 N HDL CHOLESTEROL (test code = HDL) 72 mg/dL 40-59 H According to umesh whiting National Institutes of Health (NIH) and theNational Cholesterol Education Program (NCEP), an HDLcholesterol >or= 60mg/dL counts as a "negative" risk factor;its presence removes one risk factor from the total count. LIPOPROTEIN LDL (test code = LDLC) 57 mg/dL 0-100 N UA RFLX MICR CULT IF [id number] 01:10:00* Test Item Value Reference Range Interpretation Comme nts UA COLOR (test code = COLU) YELLOW YELLOW UA APPEARANCE (test code = APPU) CLEAR CLEAR UA GLUCOSE DIPSTICK (test co de = DGLUU) NEGATIVE NEGATIVE UA BILIRUBIN DIPSTICK (test code = BILU) NEGATIVE NEGATIVE UA KETONE DIPSTICK (test cod e = KETU) NEGATIVE NEGATIVE UA SPECIFIC GRAVITY (test co de = SGU) 1.014 1.005-1.025 N UA BLOOD DIPSTICK (test code = AMAURY) NEGATIVE NEGATIVE UA PH DIPSTICK (test code = GRACIE) 5.0 5.0-8.0 UA PROTEIN DIPSTICK (test co de = PROU) NEGATIVE NEGATIVE UA UROBILINOGEN DIPSTICK (te st code = URO) NEGATIVE EU/dL 0.1-0.2 UA NITRITE DIPSTICK (test co de = JELENA) NEGATIVE NEGATIVE UA LEUKOCYTE ESTERASE DIPSTI CK (test code = LEUU) NEGATIVE NEGATIVE UA WBC (test code = WBCU) 0-2 /hpf 0-3 UA RBC (test code = RBCU) NONE SEEN /hpf 0-3 UA BACTERIA (test code = BACU) NONE SEEN /HPF NEGATIVE UA SQUAMOUS CELLS (test code = SQU) None seen /HPF FEW Indication for culture: Gross HematuriaSpecimen Description: CLEAN CATCHB-TYPE NATRIURETIC [id number] 21:17:00* Test Item Value Reference Range Interpretation Comme nts B-TYPE NATRIURETIC PEPTIDE ( test code = BNP) 348 pg/mL 0-100 H LACTIC [id number] 21:11:00* Test Item Value Reference Range Interpretation Comme nts LACTIC ACID (test code = LACT) 2.7 mmol/L 0.5-2.2 H Elevated Lactate reported to the following Caregiver:Full Name/Title: JACKIE SOTOMAYOR [id number], on 01/28/24, @ 211 BASIC METABOLIC [id number] 21:06:00* Test Item Value Reference Range Interpretation Comme nts SODIUM (test code = NA) 131 mmol/L 136-145 L POTASSIUM (test code = K) 4.0 mmol/L 3.5-5.1 N CHLORIDE (test code = CL) 98 mmol/L 98-107 N CARBON DIOXIDE (test code = CO2) 24 mmol/L 20-31 N ANION GAP (test code = GAP) 13.1 2.0-16.0 N GLUCOSE (test code = GLU) 191 mg/dL 74-106 H BLOOD UREA NITROGEN (test code = BUN) 23 mg/dL 9-23 GLOMERULAR FILTRATION RATE (test code = GFR) 48 ml/min L The Glomerular Filtration Rate is a calculated parameterbased on serum Creatinine, patient age and sex. GFR valuesless than 60 mL/min/1.73 square meters are indicative ofChronic Kidney Disease. Values less than 15 mL/min/1.73square meters indicate Kidney failure. The calculation forGFR is based on the CKD-EPI (2020) calculation. This formulais race indifferent and is the recommended formula for GFRby the National Kidney Foundation for Adults.The GFR will not calculate if the sex is unknown or if thepatient's age is <18 years. CREATININE (test code = CREAT) 1.6 mg/dL 0.7-1.3 H BUN/CREATININE RATIO (test code = BUN/CREA) 14.4 12.0-20.0 N CALCIUM (test code = CA) 9.4 mg/dL 8.7-10.4 N LIVER FUNCTION [id number] 21:06:00* Test Item Value Reference Range Interpretation Comme nts TOTAL PROTEIN (test code = PROT) 7.7 g/dL 5.7-8.2 N ALBUMIN (test code = ALB) 4.4 g/dL 3.4-5.0 N GLOBULIN (test code = GLOB) 3.3 g/dL 2.3-3.5 N BILIRUBIN TOTAL (test code = BILT) 0.4 mg/dL 0.2-1.1 N BILIRUBIN DIRECT (test code = BILD) 0.2 mg/dL 0.0-0.3 N BILIRUBIN INDIRECT (test cod e = BILIND) 0.2 mg/dL 0.0-0.8 N SGOT/AST (test code = AST) 27 U/L <34 SGPT/ALT (test code = ALT) 18 U/L 10-49 N ALKALINE PHOSPHATASE (test c ode = ALKP) 147 U/L 46-116 H [id number] 21:06:00* Test Item Value Reference Range Interpretation Comme nts MAGNESIUM (test code = MAG) 2.1 mg/dL 1.6-2.6 N TROP-I HIGH [id number] 21:06:00* Test Item Value Reference Range Interpretation Comme nts TROP-I HIGH SENSITIVITY (test code = TROPIHS) 16 pg/mL 0-78 N CAUTION: U nits of the current test methodology (pg/mL) differ from the prior test methodology (ng/mL) by a factor of 1000. POSITIVE TROPONIN HS IS IDENTIFIED THE FOLLOWING MALE > OR = 78 pg/mL FEMALE > OR = 53 pg/mL ALL CRITICAL TROPI HS HAVE BEEN IDENTIFIED MALE OR FEMALE > OR = 120 pg/mL PROTHROMBIN [id number] 20:18:00* Test Item Value Reference Range Interpretation Comme nts PROTHROMBIN TIME PATIENT (test code = PTP) 13.8 SECONDS 9.4-12.5 H INTERNATIONAL NORMAL RATIO (test code = INR) 1.2 RATIO 0.8-1.1 H THE INR IS USEFU L ONLY FOR MONITORING ANTICOAGULANT THERAPY.IT MAY BE UNRELIABLE IN THE INITIAL PHASE OF ANTICOAGULATIONAND IN UNSTABLE PATIENTS. 2.0-3.0 is the recommended INR for the following:Prevention of venous thrombolism in high-risk patients;treatment of venous thrombosis and pulmonary embolism aftera course of heparin; prevention of systemic embolism in avariety of condition, including atrial fibrillation andprosthetic tissue heart valves.2.5-3.5 is the recommended INR for the following:Prosthetic mechanical heart values and/or recurrent systemicembolization. THROMBOPLASTIN TIME [id number] 20:18:00* Test Item Value Reference Range Interpretation Comme [facility] THROMBOPLASTIN TIME PARTIAL (test code = PTT) 34.0 SECONDS 25.1-36.5 N CBC W/AUTO [id number] 20:02:00* Test Item Value Reference Range Interpretation Comme nts WHITE BLOOD CELL (test code = WBC) 8.4 10 3/uL 4.5-11.0 N RED BLOOD CELL (test code = RBC) 4.57 10 6/uL 4.30-5.90 N HEMOGLOBIN (test code = HGB) 14.3 g/dL 14.0-18.0 N HEMATOCRIT (test code = HCT) 44.5 % 40.0-55.0 N MEAN CELL VOLUME (test code = MCV) 97 fL 81-102 N MEAN CELL HGB (test code = MCH) 31.3 pg 26.0-34.0 N MEAN CELL HGB CONCENTRATION (test code = MCHC) 32.1 g/dL 31.0-37.0 N RED CELL DISTRIBUTION WIDTH (test code = RDW) 17.2 % 11.6-14.4 H PLATELET COUNT (test code = PLT) 183 10 3/uL 150-400 N MEAN PLATELET VOLUME (test code = MPV) 9.3 fL 9.0-12.6 N NEUTROPHIL % (test code = NT%) 63.7 % 33.0-76.0 N IMMATURE GRANULOCYTE % (test code = IG%) 0.8 % 0.0-1.0 N LYMPHOCYTE % (test code = LY%) 28.4 % 14.0-56.4 N MONOCYTE % (test code = MO%) 4.8 % 0.0-12.9 N EOSINOPHIL % (test code = EO%) 1.8 % 0.0-7.0 N BASOPHIL % (test code = BA%) 0.5 % 0-2.0 N NUCLEATED RBC % (test code = NRBC%) 0.0 % 0-0.2 N NEUTROPHIL # (test code = NT#) 5.33 10 3/uL 1.5-7.0 N IMMATURE GRANULOCYTE # (test code = IG#) 0.070 x10 3/uL 0.000-0.100 N LYMPHOCYTE # (test code = LY#) 2.38 10 3/uL 1.50-4.00 N MONOCYTE # (test code = MO#) 0.40 10 3/uL 0.20-0.80 N EOSINOPHIL # (test code = EO#) 0.15 10 3/uL 0.0-0.5 N BASOPHIL # (test code = BA#) 0.04 10 3/uL 0.0-0.1 N NUCLEATED RBC # (test code = NRBC#) 0.000 10 3/uL 0.000-0.012 N POC VENOUS BLOOD [id number] 19:59:00* Test Item Value Reference Range Interpretation Comme nts POC VENOUS BLOOD GAS PH (kristina t code = POCPHV) 7.235 7.33-7.45 L POC VENOUS BLOOD GAS PCO2 (t est code = [id number]) 46.9 mm Hg 35-45 H POC VENOUS BLOOD GAS PO2 (te st code = KZGBZ4H) 34.8 mmHg 80-90 LL POC HCO3 VENOUS (test code = UNAUPI4B) 19.9 mmol/L 22-24 L POC BASE EXCESS VENOUS (test code = POCBEV) -7.7 mmol/L -2-4 L POC O2 SATURATION VENOUS (te st code = [id number]) 56.2 % 60-80 L THROMBOPLASTIN TIME [id number] 08:48:00* Test Item Value Reference Range Interpretation Comme nts THROMBOPLASTIN TIME PARTIAL (test code = PTT) 56.0 secs 23.8-34.8 H INTERPRETATIVE D EDGARD: Therapeutic range: Unfractionated Heparin: 60-90 seconds Argatroban: 60-90 seconds BASIC METABOLIC [id number] 00:53:00* Test Item Value Reference Range Interpretation Comme nts SODIUM (test code = NA) 146 mmol/L 136-145 H POTASSIUM (test code = K) 3.5 mmol/L 3.5-5.1 N CHLORIDE (test code = CL) 109 mmol/l 98-107 H CARBON DIOXIDE (test code = CO2) 27 mmol/L 20-31 N GLUCOSE (test code = GLU) 96 mg/dL 74-106 N BLOOD UREA NITROGEN (test code = BUN) 19 mg/dL 9-23 N GLOMERULAR FILTRATION RATE (test code = GFR) >=60 max estimate mL/min >60 The Glomerular Filtration Rate is a calculated parameterbased on serum Creatinine, patient age and sex. GFR valuesless than 60 mL/min/1.73 square meters are indicative ofChronic Kidney Disease. Values less than 15 mL/min/1.73square meters indicate Kidney failure. The calculation forGFR is based on the CKD-EPI (2020) calculation. This formulais race indifferent and is the recommended formula for GFRby the National Kidney Foundation for Adults.The GFR will not calculate if the sex is unknown or if thepatient's age is <18 years. CREATININE (test code = CREAT) 0.90 mg/dL 0.70-1.30 N CALCIUM (test code = CA) 8.2 mg/dL 8.7-10.4 L [id number] 00:53:00* Test Item Value Reference Range Interpretation Comme nts MAGNESIUM (test code = MAG) 2.1 mg/dL 1.6-2.6 N THROMBOPLASTIN TIME [id number] 00:44:00* Test Item Value Reference Range Interpretation Comme nts THROMBOPLASTIN TIME PARTIAL (test code = PTT) 49.3 secs 23.8-34.8 H INTERPRETATIVE D EDGARD: Therapeutic range: Unfractionated Heparin: 60-90 seconds Argatroban: 60-90 seconds CBC W/AUTO [id number] 00:37:00* Test Item Value Reference Range Interpretation Comme nts WHITE BLOOD CELL (test code = WBC) 9.2 x10 3/uL 4.8-10.8 N RED BLOOD CELL (test code = RBC) 3.64 x10 6/uL 4.70-6.10 L HEMOGLOBIN (test code = HGB) 11.0 g/dL 14.0-18.0 L HEMATOCRIT (test code = HCT) 34.9 % 42.0-52.0 L MEAN CELL VOLUME (test code = MCV) 95.9 fL 80.0-94.0 H MEAN CELL HGB (test code = MCH) 30.2 pg 27-31 N MEAN CELL HGB CONCENTRATION (test code = MCHC) 31.5 G/DL 33-36.5 L RED CELL DISTRIBUTION WIDTH (test code = RDW) 16.3 % 12.9-16.9 N PLATELET COUNT (test code = PLT) 288 x10 3/uL 150-440 N MEAN PLATELET VOLUME (test c ode = MPV) 9.9 fL 8.9-12.4 N NEUTROPHIL % (test code = NT%) 70.2 % 42.2-75.2 N LYMPHOCYTE % (test code = LY%) 17.2 % 20.5-51.1 L MONOCYTE % (test code = MO%) 7.4 % 1.7-9.3 N EOSINOPHIL % (test code = EO%) 3.7 % 0.0-7.0 N BASOPHIL % (test code = BA%) 0.7 % 0-2.5 N NEUTROPHIL # (test code = NT#) 6.43 x10 3/uL 1.80-7.70 N LYMPHOCYTE # (test code = LY#) 1.58 x10 3/uL 1.00-4.80 N MONOCYTE # (test code = MO#) 0.68 x10 3/uL 0.00-0.80 N EOSINOPHIL # (test code = EO#) 0.34 x10 3/uL 0.00-0.45 N BASOPHIL # (test code = BA#) 0.06 x10 3/uL 0.0-0.20 N THROMBOPLASTIN TIME [id number] 17:20:00* Test Item Value Reference Range Interpretation Comme nts THROMBOPLASTIN TIME PARTIAL (test code = PTT) 43.2 secs 23.8-34.8 H INTERPRETATIVE D EDGARD: Therapeutic range: Unfractionated Heparin: 60-90 seconds Argatroban: 60-90 seconds BASIC METABOLIC [id number] 08:55:00* Test Item Value Reference Range Interpretation Comme nts SODIUM (test code = NA) 147 mmol/L 136-145 H POTASSIUM (test code = K) 3.9 mmol/L 3.5-5.1 N CHLORIDE (test code = CL) 110 mmol/l 98-107 H CARBON DIOXIDE (test code = CO2) 25 mmol/L 20-31 N GLUCOSE (test code = GLU) 94 mg/dL 74-106 N BLOOD UREA NITROGEN (test code = BUN) 26 mg/dL 9-23 H GLOMERULAR FILTRATION RATE (test code = GFR) >=60 max estimate mL/min >60 The Glomerular Filtration Rate is a calculated parameterbased on serum Creatinine, patient age and sex. GFR valuesless than 60 mL/min/1.73 square meters are indicative ofChronic Kidney Disease. Values less than 15 mL/min/1.73square meters indicate Kidney failure. The calculation forGFR is based on the CKD-EPI (2020) calculation. This formulais race indifferent and is the recommended formula for GFRby the National Kidney Foundation for Adults.The GFR will not calculate if the sex is unknown or if thepatient's age is <18 years. CREATININE (test code = CREAT) 1.00 mg/dL 0.70-1.30 N CALCIUM (test code = CA) 8.7 mg/dL 8.7-10.4 N Comment: [id number] 08:55:00* Test Item Value Reference Range Interpretation Comme nts PHOSPHOROUS (test code = PHOS) 2.4 mg/dL 2.4-5.1 N Comment: [id number] 08:55:00* Test Item Value Reference Range Interpretation Comme nts MAGNESIUM (test code = MAG) 2.4 mg/dL 1.6-2.6 N Comment: NEWPROTHROMBIN [id number] 08:36:00* Test Item Value Reference Range Interpretation Comme nts PROTHROMBIN TIME PATIENT (test code = PTP) 13.2 SECONDS 10.3-12.9 H INTERNATIONAL NORMAL RATIO (test code = INR) 1.18 0.9-1.11 H INR goals are individualized based on patient specificfactors. The following are only general guidelines: Indications: INR Goal:1. Treatment of venous thromboembolism and 2.0 - 3.0 systemic anticoagulation in a variety of conditions, including atrial fibrillation and mechanical heart valves 2. Mechanical mitral and tricuspid valves, 2.5 - 3.5 systemic anticoagulation for high-risk conditions Spec Comments: STAT if not done within 24HR prior to Hep initiat.THROMBOPLASTIN TIME [id number] 08:36:00* Test Item Value Reference Range Interpretation Comme nts THROMBOPLASTIN TIME PARTIAL (test code = PTT) 25.9 secs 23.8-34.8 N INTERPRETATIVE D EDGARD: Therapeutic range: Unfractionated Heparin: 60-90 seconds Argatroban: 60-90 seconds Spec Comments: STAT if not done within 24HR prior to Hep initiat.CBC W/AUTO DIFF 2024-01-06 08:24:00* Test Item Value Reference Range Interpretation Comme nts WHITE BLOOD CELL (test code = WBC) 10.2 x10 3/uL 4.8-10.8 N RED BLOOD CELL (test code = RBC) 3.90 x10 6/uL 4.70-6.10 L HEMOGLOBIN (test code = HGB) 11.8 g/dL 14.0-18.0 L HEMATOCRIT (test code = HCT) 37.2 % 42.0-52.0 L MEAN CELL VOLUME (test code = MCV) 95.4 fL 80.0-94.0 H MEAN CELL HGB (test code = MCH) 30.3 pg 27-31 N MEAN CELL HGB CONCENTRATION (test code = MCHC) 31.7 G/DL 33-36.5 L RED CELL DISTRIBUTION WIDTH (test code = RDW) 16.4 % 12.9-16.9 N PLATELET COUNT (test code = PLT) 285 x10 3/uL 150-440 N MEAN PLATELET VOLUME (test c ode = MPV) 10.1 fL 8.9-12.4 N NEUTROPHIL % (test code = NT%) 77.6 % 42.2-75.2 H LYMPHOCYTE % (test code = LY%) 11.6 % 20.5-51.1 L MONOCYTE % (test code = MO%) 7.4 % 1.7-9.3 N EOSINOPHIL % (test code = EO%) 2.1 % 0.0-7.0 N BASOPHIL % (test code = BA%) 0.3 % 0-2.5 N NEUTROPHIL # (test code = NT#) 7.92 x10 3/uL 1.80-7.70 H LYMPHOCYTE # (test code = LY#) 1.18 x10 3/uL 1.00-4.80 N MONOCYTE # (test code = MO#) 0.75 x10 3/uL 0.00-0.80 N EOSINOPHIL # (test code = EO#) 0.21 x10 3/uL 0.00-0.45 N BASOPHIL # (test code = BA#) 0.03 x10 3/uL 0.0-0.20 N Spec Comments: STAT if not done within 24HR prior to Hep initiat.GLUBED 2024-01-05 12:07:00* Test Item Value Reference Range Interpretation Comme nts GLUBED (test code = GLUBED) 135 MG/DL 70-105 H [id number] 08:33:00* Test Item Value Reference Range Interpretation Comme nts POTASSIUM (test code = K) 4.1 mmol/L 3.5-5.1 BLOOD GAS [id number] 05:36:00* Test Item Value Reference Range Interpretation Comme nts ARTERIAL BLOOD GAS PH (test code = PHA) 7.45 7.35-7.45 N ARTERIAL BLOOD GAS PCO2 (test code = PCO2A) 38.4 mmHg 35.0-45.0 N ARTERIAL BLOOD GAS PO2 (test code = PO2A) 93.9 mmHg 80.0-95.0 N BICARBONATE TOTAL HCO3 (test code = HCO3) 26.0 mmol/L 22.0-24.0 H BASE EXCESS (test code = UZIEL) 2.0 mmol/L See_Comment N [Automated message] The system which generated this result transmitted reference range: (+/-)2.0. The reference range was not used to interpret this result as normal/abnormal. ABG O2 SATURATION (test code = SATA) 96.7 % 95.0-100.0 N ARTERIAL FIO2 (test code = FIO2A) 36.0 % ABG VENT MODE (test code = MODEA) NASAL CANNULA ABG SITE (test code = SITEA) A-Line ALLENS TEST (test code = ALLENS) NOT APPLICABLE SODIUM (POC) (test code = NA/ABG) 144 mmol/L 135-147 N POTASSIUM (POC) (test code = K/ABG) 3.49 mmol/L 3.6-5.2 L CHLORIDE (ARTERIAL) (test code = CL/ABG) 106 mmol/L 98-108 N GLUCOSE (test code = GLU/ABG) 99 mg/dL 70-104 N IONIZED CALCIUM (test code = CAIABG) 1.13 mmol/L 1.12-1.32 N POC LACTIC ACID (test code = POCLAC) 2.11 mmol/L 0.5-2.2 N TOTAL HGB (test code = THB) 12.5 g/dL 13.0-17.0 L OXYHEMOGLOBIN (test code = OOHGBT) 96.1 % 92.0-98.0 N CARBOXYHEMOGLOBIN (test code = HOHGBT) 0.1 % 0-5.0 N METHEMOGLOBIN (test code = METHGB) <0.8 % 0-1.5 N HHb (test code = HHB) 3.3 % TCO2 ARTERIAL (test code = TCO2A) 27.2 MMOL/L 24-30 N BASIC METABOLIC [id number] 02:55:00* Test Item Value Reference Range Interpretation Comme nts SODIUM (test code = NA) 149 mmol/L 136-145 H POTASSIUM (test code = K) 2.9 mmol/L 3.5-5.1 L CHLORIDE (test code = CL) 110 mmol/l 98-107 H CARBON DIOXIDE (test code = CO2) 24 mmol/L 20-31 N GLUCOSE (test code = GLU) 93 mg/dL 74-106 N BLOOD UREA NITROGEN (test code = BUN) 45 mg/dL 9-23 H GLOMERULAR FILTRATION RATE (test code = GFR) 52 mL/min >60 L The Glomerular Filtration Rate is a calculated parameterbased on serum Creatinine, patient age and sex. GFR valuesless than 60 mL/min/1.73 square meters are indicative ofChronic Kidney Disease. Values less than 15 mL/min/1.73square meters indicate Kidney failure. The calculation forGFR is based on the CKD-EPI (202) calculation. This formulais race indifferent and is the recommended formula for GFRby the National Kidney Foundation for Adults.The GFR will not calculate if the sex is unknown or if thepatient's age is <18 years. CREATININE (test code = CREAT) 1.50 mg/dL 0.70-1.30 H CALCIUM (test code = CA) 8.6 mg/dL 8.7-10.4 L [id number] 02:55:00* Test Item Value Reference Range Interpretation Comme nts PHOSPHOROUS (test code = PHOS) 3.7 mg/dL 2.4-5.1 N [id number] 02:55:00* Test Item Value Reference Range Interpretation Comme nts MAGNESIUM (test code = MAG) 2.3 mg/dL 1.6-2.6 N CBC W/AUTO [id number] 02:39:00* Test Item Value Reference Range Interpretation Comme nts WHITE BLOOD CELL (test code = WBC) 13.3 x10 3/uL 4.8-10.8 H RED BLOOD CELL (test code = RBC) 3.79 x10 6/uL 4.70-6.10 L HEMOGLOBIN (test code = HGB) 11.5 g/dL 14.0-18.0 L HEMATOCRIT (test code = HCT) 36.1 % 42.0-52.0 L MEAN CELL VOLUME (test code = MCV) 95.3 fL 80.0-94.0 H MEAN CELL HGB (test code = MCH) 30.3 pg 27-31 N MEAN CELL HGB CONCENTRATION (test code = MCHC) 31.9 G/DL 33-36.5 L RED CELL DISTRIBUTION WIDTH (test code = RDW) 16.7 % 12.9-16.9 N PLATELET COUNT (test code = PLT) 267 x10 3/uL 150-440 N MEAN PLATELET VOLUME (test code = MPV) 10.1 fL 8.9-12.4 N NEUTROPHIL % (test code = NT%) 78.0 % 42.2-75.2 H LYMPHOCYTE % (test code = LY%) 11.9 % 20.5-51.1 L MONOCYTE % (test code = MO%) 8.4 % 1.7-9.3 N EOSINOPHIL % (test code = EO%) 0.4 % 0.0-7.0 N BASOPHIL % (test code = BA%) 0.5 % 0-2.5 N NEUTROPHIL # (test code = NT#) 10.38 x10 3/uL 1.80-7.70 H LYMPHOCYTE # (test code = LY#) 1.59 x10 3/uL 1.00-4.80 N MONOCYTE # (test code = MO#) 1.12 x10 3/uL 0.00-0.80 H EOSINOPHIL # (test code = EO#) 0.05 x10 3/uL 0.00-0.45 N BASOPHIL # (test code = BA#) 0.06 x10 3/uL 0.0-0.20 N [id number] 01:03:00* Test Item Value Reference Range Interpretation Comme nts GLUBED (test code = GLUBED) 91 MG/DL 70-105 N BLOOD GAS [id number]/[id number] 21:45:00* Test Item Value Reference Range Interpretation Comme nts ARTERIAL BLOOD GAS PH (test code = PHA) 7.40 7.35-7.45 N ARTERIAL BLOOD GAS PCO2 (test code = PCO2A) 41.7 mmHg 35.0-45.0 N ARTERIAL BLOOD GAS PO2 (test code = PO2A) 94.6 mmHg 80.0-95.0 N BICARBONATE TOTAL HCO3 (test code = HCO3) 25.1 mmol/L 22.0-24.0 H BASE EXCESS (test code = UZIEL) 0.2 mmol/L See_Comment N [Automated message] The system which generated this result transmitted reference range: (+/-)2.0. The reference range was not used to interpret this result as normal/abnormal. ABG O2 SATURATION (test code = SATA) 96.7 % 95.0-100.0 N ARTERIAL FIO2 (test code = FIO2A) 36.0 % ABG VENT MODE (test code = MODEA) NASAL CANNULA ABG SITE (test code = SITEA) A-Line ALLENS TEST (test code = ALLENS) NOT APPLICABLE SODIUM (POC) (test code = NA/ABG) 147 mmol/L 135-147 N POTASSIUM (POC) (test code = K/ABG) 2.98 mmol/L 3.6-5.2 L CHLORIDE (ARTERIAL) (test code = CL/ABG) 109 mmol/L 98-108 H GLUCOSE (test code = GLU/ABG) 122 mg/dL 70-104 H IONIZED CALCIUM (test code = CAIABG) 1.20 mmol/L 1.12-1.32 N POC LACTIC ACID (test code = POCLAC) 1.88 mmol/L 0.5-2.2 N TOTAL HGB (test code = THB) 13.7 g/dL 13.0-17.0 N OXYHEMOGLOBIN (test code = OOHGBT) 96.0 % 92.0-98.0 N CARBOXYHEMOGLOBIN (test code = HOHGBT) 0.2 % 0-5.0 N METHEMOGLOBIN (test code = METHGB) <0.8 % 0-1.5 N HHb (test code = HHB) 3.3 % TCO2 ARTERIAL (test code = TCO2A) 26.4 MMOL/L 24-30 N BASIC METABOLIC [id number] 12:58:00* Test Item Value Reference Range Interpretation Comme nts SODIUM (test code = NA) 145 mmol/L 136-145 N POTASSIUM (test code = K) 3.6 mmol/L 3.5-5.1 N CHLORIDE (test code = CL) 108 mmol/l 98-107 H CARBON DIOXIDE (test code = CO2) 27 mmol/L 20-31 N GLUCOSE (test code = GLU) 137 mg/dL 74-106 H BLOOD UREA NITROGEN (test code = BUN) 47 mg/dL 9-23 H GLOMERULAR FILTRATION RATE (test code = GFR) 42 mL/min >60 L The Glomerular Filtration Rate is a calculated parameterbased on serum Creatinine, patient age and sex. GFR valuesless than 60 mL/min/1.73 square meters are indicative ofChronic Kidney Disease. Values less than 15 mL/min/1.73square meters indicate Kidney failure. The calculation forGFR is based on the CKD-EPI (2020) calculation. This formulais race indifferent and is the recommended formula for GFRby the National Kidney Foundation for Adults.The GFR will not calculate if the sex is unknown or if thepatient's age is <18 years. CREATININE (test code = CREAT) 1.80 mg/dL 0.70-1.30 H CALCIUM (test code = CA) 9.3 mg/dL 8.7-10.4 N [id number] 12:58:00* Test Item Value Reference Range Interpretation Comme nts PHOSPHOROUS (test code = PHOS) 3.6 mg/dL 2.4-5.1 N [id number] 12:58:00* Test Item Value Reference Range Interpretation Comme nts MAGNESIUM (test code = MAG) 2.4 mg/dL 1.6-2.6 N CBC W/AUTO [id number] 12:44:00* Test Item Value Reference Range Interpretation Comme nts WHITE BLOOD CELL (test code = WBC) 12.2 x10 3/uL 4.8-10.8 H RED BLOOD CELL (test code = RBC) 4.17 x10 6/uL 4.70-6.10 L HEMOGLOBIN (test code = HGB) 12.5 g/dL 14.0-18.0 L HEMATOCRIT (test code = HCT) 39.5 % 42.0-52.0 L MEAN CELL VOLUME (test code = MCV) 94.7 fL 80.0-94.0 H MEAN CELL HGB (test code = MCH) 30.0 pg 27-31 N MEAN CELL HGB CONCENTRATION (test code = MCHC) 31.6 G/DL 33-36.5 L RED CELL DISTRIBUTION WIDTH (test code = RDW) 16.6 % 12.9-16.9 N PLATELET COUNT (test code = PLT) 310 x10 3/uL 150-440 N MEAN PLATELET VOLUME (test c ode = MPV) 10.3 fL 8.9-12.4 N NEUTROPHIL % (test code = NT%) 80.3 % 42.2-75.2 H LYMPHOCYTE % (test code = LY%) 9.1 % 20.5-51.1 L MONOCYTE % (test code = MO%) 8.6 % 1.7-9.3 N EOSINOPHIL % (test code = EO%) 0.6 % 0.0-7.0 N BASOPHIL % (test code = BA%) 0.4 % 0-2.5 N NEUTROPHIL # (test code = NT#) 9.77 x10 3/uL 1.80-7.70 H LYMPHOCYTE # (test code = LY#) 1.11 x10 3/uL 1.00-4.80 N MONOCYTE # (test code = MO#) 1.04 x10 3/uL 0.00-0.80 H EOSINOPHIL # (test code = EO#) 0.07 x10 3/uL 0.00-0.45 N BASOPHIL # (test code = BA#) 0.05 x10 3/uL 0.0-0.20 N VENOUS BLOOD [id number] 07:52:00* Test Item Value Reference Range Interpretation Comme nts VENOUS BLOOD GAS PH (test code = PHV) 7.43 7.35-7.45 N VENOUS BLOOD GAS PCO2 (test code = PCO2V) 47.6 mmHg See_Comment [Automated messa ge] The system which generated this result transmitted reference range: 46. The reference range was not used to interpret this result as normal/abnormal. VENOUS BLOOD GAS PO2 (test code = PO2V) 32.3 mmHg See_Comment [Automated messa ge] The system which generated this result transmitted reference range: 40. The reference range was not used to interpret this result as normal/abnormal. VBG HCO3 (test code = HCO3V) 31 meq/L VBG BASE EXCESS (test code = NATALYA) 5.7 MMOL/L VENOUS BLOOD GAS O2 SAT (test code = O2SATV) 62 % See_Comment [Automated messa ge] The system which generated this result transmitted reference range: 75. The reference range was not used to interpret this result as normal/abnormal. VENOUS BLOOD GAS TYPE (test code = TYPEV) Venous VENOUS BLOOD GAS FIO2 (test code = FIO2V) 60.0 % VBG VENT MODE (test code = MODEV) NC BLOOD GAS [id number]/[id number] 07:51:00* Test Item Value Reference Range Interpretation Comme nts ARTERIAL BLOOD GAS PH (test code = PHA) 7.47 7.35-7.45 H ARTERIAL BLOOD GAS PCO2 (test code = PCO2A) 42.2 mmHg 35.0-45.0 N ARTERIAL BLOOD GAS PO2 (test code = PO2A) 90.4 mmHg 80.0-95.0 N BICARBONATE TOTAL HCO3 (test code = HCO3) 30.1 mmol/L 22.0-24.0 H BASE EXCESS (test code = UZIEL) 5.8 mmol/L See_Comment H [Automated message] The system which generated this result transmitted reference range: (+/-)2.0. The reference range was not used to interpret this result as normal/abnormal. ABG O2 SATURATION (test code = SATA) 97.3 % 95.0-100.0 N ARTERIAL FIO2 (test code = FIO2A) 60.0 % ABG VENT MODE (test code = MODEA) NASAL CANNULA ALLENS TEST (test code = ALLENS) NOT APPLICABLE SODIUM (POC) (test code = NA/ABG) 144 mmol/L 135-147 N POTASSIUM (POC) (test code = K/ABG) 3.89 mmol/L 3.6-5.2 N CHLORIDE (ARTERIAL) (test code = CL/ABG) 106 mmol/L 98-108 N GLUCOSE (test code = GLU/ABG) 144 mg/dL 70-104 H IONIZED CALCIUM (test code = CAIABG) 1.14 mmol/L 1.12-1.32 N POC LACTIC ACID (test code = POCLAC) 1.96 mmol/L 0.5-2.2 N TOTAL HGB (test code = THB) 13.8 g/dL 13.0-17.0 N OXYHEMOGLOBIN (test code = OOHGBT) 96.3 % 92.0-98.0 N CARBOXYHEMOGLOBIN (test code = HOHGBT) 0.5 % 0-5.0 N METHEMOGLOBIN (test code = METHGB) <0.8 % 0-1.5 N HHb (test code = HHB) 2.7 % TCO2 ARTERIAL (test code = TCO2A) 31.4 MMOL/L 24-30 H BLOOD GAS [id number]/[id number] 07:50:00* Test Item Value Reference Range Interpretation Comme nts ARTERIAL BLOOD GAS PH (test code = PHA) 7.49 7.35-7.45 H ARTERIAL BLOOD GAS PCO2 (test code = PCO2A) 39.3 mmHg 35.0-45.0 N ARTERIAL BLOOD GAS PO2 (test code = PO2A) 99.5 mmHg 80.0-95.0 H BICARBONATE TOTAL HCO3 (test code = HCO3) 29.2 mmol/L 22.0-24.0 H BASE EXCESS (test code = UZIEL) 5.5 mmol/L See_Comment H [Automated message] The system which generated this result transmitted reference range: (+/-)2.0. The reference range was not used to interpret this result as normal/abnormal. ABG O2 SATURATION (test code = SATA) 97.6 % 95.0-100.0 N ARTERIAL FIO2 (test code = FIO2A) 60.0 % ABG VENT MODE (test code = MODEA) NASAL CANNULA ALLENS TEST (test code = ALLENS) NOT APPLICABLE SODIUM (POC) (test code = NA/ABG) 146 mmol/L 135-147 N POTASSIUM (POC) (test code = K/ABG) 3.93 mmol/L 3.6-5.2 N CHLORIDE (ARTERIAL) (test code = CL/ABG) 105 mmol/L 98-108 N GLUCOSE (test code = GLU/ABG) 145 mg/dL 70-104 H IONIZED CALCIUM (test code = CAIABG) 1.14 mmol/L 1.12-1.32 N POC LACTIC ACID (test code = POCLAC) 1.92 mmol/L 0.5-2.2 N TOTAL HGB (test code = THB) 13.8 g/dL 13.0-17.0 N OXYHEMOGLOBIN (test code = OOHGBT) 96.9 % 92.0-98.0 N CARBOXYHEMOGLOBIN (test code = HOHGBT) 0.2 % 0-5.0 N METHEMOGLOBIN (test code = METHGB) <0.8 % 0-1.5 N HHb (test code = HHB) 2.4 % TCO2 ARTERIAL (test code = TCO2A) 30.4 MMOL/L 24-30 H BASIC METABOLIC [id number] 06:29:00* Test Item Value Reference Range Interpretation Comme nts SODIUM (test code = NA) 145 mmol/L 136-145 N POTASSIUM (test code = K) 3.8 mmol/L 3.5-5.1 N CHLORIDE (test code = CL) 108 mmol/l 98-107 H CARBON DIOXIDE (test code = CO2) 29 mmol/L 20-31 N GLUCOSE (test code = GLU) 134 mg/dL 74-106 H BLOOD UREA NITROGEN (test code = BUN) 40 mg/dL 9-23 H GLOMERULAR FILTRATION RATE (test code = GFR) 48 mL/min >60 L The Glomerular Filtration Rate is a calculated parameterbased on serum Creatinine, patient age and sex. GFR valuesless than 60 mL/min/1.73 square meters are indicative ofChronic Kidney Disease. Values less than 15 mL/min/1.73square meters indicate Kidney failure. The calculation forGFR is based on the CKD-EPI (2020) calculation. This formulais race indifferent and is the recommended formula for GFRby the National Kidney Foundation for Adults.The GFR will not calculate if the sex is unknown or if thepatient's age is <18 years. CREATININE (test code = CREAT) 1.60 mg/dL 0.70-1.30 H CALCIUM (test code = CA) 9.4 mg/dL 8.7-10.4 N COMPREHENSIVE METABOLIC [id number] 06:29:00* Test Item Value Reference Range Interpretation Comme nts TOTAL PROTEIN (test code = PROT) 7.2 g/dL 5.7-8.2 N ALBUMIN (test code = ALB) 4.5 g/dL 3.2-4.8 N BILIRUBIN TOTAL (test code = BILT) 0.4 mg/dL 0.3-1.2 N SGOT/AST (test code = AST) 42 U/L <34 H SGPT/ALT (test code = ALT) 50 U/L 10-49 H ALKALINE PHOSPHATASE (test c ode = ALKP) 92.0 U/L 46-116 N [id number] 06:29:00* Test Item Value Reference Range Interpretation Comme nts PHOSPHOROUS (test code = PHOS) 4.2 mg/dL 2.4-5.1 N [id number] 06:29:00* Test Item Value Reference Range Interpretation Comme nts MAGNESIUM (test code = MAG) 2.3 mg/dL 1.6-2.6 N PROTHROMBIN [id number] 06:18:00* Test Item Value Reference Range Interpretation Comme nts PROTHROMBIN TIME PATIENT (test code = PTP) 14.3 SECONDS 10.3-12.9 H INTERNATIONAL NORMAL RATIO (test code = INR) 1.28 0.9-1.11 H INR goals are individualized based on patient specificfactors. The following are only general guidelines: Indications: INR Goal:1. Treatment of venous thromboembolism and 2.0 - 3.0 systemic anticoagulation in a variety of conditions, including atrial fibrillation and mechanical heart valves 2. Mechanical mitral and tricuspid valves, 2.5 - 3.5 systemic anticoagulation for high-risk conditions THROMBOPLASTIN TIME [id number] 06:18:00* Test Item Value Reference Range Interpretation Comme nts THROMBOPLASTIN TIME PARTIAL (test code = PTT) 27.6 secs 23.8-34.8 N INTERPRETATIVE D EDGARD: Therapeutic range: Unfractionated Heparin: 60-90 seconds Argatroban: 60-90 seconds [id number] 06:18:00* Test Item Value Reference Range Interpretation Comme nts FIBRINOGEN (test code = FIB) 868 mg/dL 200-400 H CBC W/AUTO [id number] 06:06:00* Test Item Value Reference Range Interpretation Comme nts WHITE BLOOD CELL (test code = WBC) 10.8 x10 3/uL 4.8-10.8 N RED BLOOD CELL (test code = RBC) 4.13 x10 6/uL 4.70-6.10 L HEMOGLOBIN (test code = HGB) 12.5 g/dL 14.0-18.0 L HEMATOCRIT (test code = HCT) 39.1 % 42.0-52.0 L MEAN CELL VOLUME (test code = MCV) 94.7 fL 80.0-94.0 H MEAN CELL HGB (test code = MCH) 30.3 pg 27-31 N MEAN CELL HGB CONCENTRATION (test code = MCHC) 32.0 G/DL 33-36.5 L RED CELL DISTRIBUTION WIDTH (test code = RDW) 16.5 % 12.9-16.9 N PLATELET COUNT (test code = PLT) 293 x10 3/uL 150-440 N MEAN PLATELET VOLUME (test c ode = MPV) 10.2 fL 8.9-12.4 N NEUTROPHIL % (test code = NT%) 77.1 % 42.2-75.2 H LYMPHOCYTE % (test code = LY%) 10.7 % 20.5-51.1 L MONOCYTE % (test code = MO%) 10.1 % 1.7-9.3 H EOSINOPHIL % (test code = EO%) 1.0 % 0.0-7.0 N BASOPHIL % (test code = BA%) 0.4 % 0-2.5 N NEUTROPHIL # (test code = NT#) 8.29 x10 3/uL 1.80-7.70 H LYMPHOCYTE # (test code = LY#) 1.15 x10 3/uL 1.00-4.80 N MONOCYTE # (test code = MO#) 1.09 x10 3/uL 0.00-0.80 H EOSINOPHIL # (test code = EO#) 0.11 x10 3/uL 0.00-0.45 N BASOPHIL # (test code = BA#) 0.04 x10 3/uL 0.0-0.20 N BLOOD GAS [id number] 22:34:00* Test Item Value Reference Range Interpretation Comme nts ARTERIAL BLOOD GAS PH (test code = PHA) 7.46 7.35-7.45 H ARTERIAL BLOOD GAS PCO2 (test code = PCO2A) 37.2 mmHg 35.0-45.0 N ARTERIAL BLOOD GAS PO2 (test code = PO2A) 127.8 mmHg 80.0-95.0 H BICARBONATE TOTAL HCO3 (test code = HCO3) 25.6 mmol/L 22.0-24.0 H BASE EXCESS (test code = UZIEL) 1.9 mmol/L See_Comment N [Automated message] The system which generated this result transmitted reference range: (+/-)2.0. The reference range was not used to interpret this result as normal/abnormal. ABG O2 SATURATION (test code = SATA) 98.6 % 95.0-100.0 N ARTERIAL FIO2 (test code = FIO2A) 70.0 % ABG VENT MODE (test code = MODEA) Ventilator ALLENS TEST (test code = ALLENS) NOT APPLICABLE SODIUM (POC) (test code = NA/ABG) 144 mmol/L 135-147 N POTASSIUM (POC) (test code = K/ABG) 4.00 mmol/L 3.6-5.2 N CHLORIDE (ARTERIAL) (test code = CL/ABG) 103 mmol/L 98-108 N GLUCOSE (test code = GLU/ABG) 132 mg/dL 70-104 H IONIZED CALCIUM (test code = CAIABG) 1.16 mmol/L 1.12-1.32 N POC LACTIC ACID (test code = POCLAC) 1.38 mmol/L 0.5-2.2 N TOTAL HGB (test code = THB) 13.5 g/dL 13.0-17.0 N OXYHEMOGLOBIN (test code = OOHGBT) 98.1 % 92.0-98.0 H CARBOXYHEMOGLOBIN (test code = HOHGBT) 0.3 % 0-5.0 N METHEMOGLOBIN (test code = METHGB) <0.8 % 0-1.5 N HHb (test code = HHB) 1.4 % TCO2 ARTERIAL (test code = TCO2A) 26.8 MMOL/L 24-30 N BLOOD GAS [id number] 22:34:00* Test Item Value Reference Range Interpretation Comme nts ARTERIAL BLOOD GAS PH (test code = PHA) 7.47 7.35-7.45 H ARTERIAL BLOOD GAS PCO2 (test code = PCO2A) 44.0 mmHg 35.0-45.0 N BICARBONATE TOTAL HCO3 (test code = HCO3) 31.2 mmol/L 22.0-24.0 H BASE EXCESS (test code = UZIEL) 6.7 mmol/L See_Comment H [Automated message] The system which generated this result transmitted reference range: (+/-)2.0. The reference range was not used to interpret this result as normal/abnormal. ABG O2 SATURATION (test code = SATA) 98.4 % 95.0-100.0 N ARTERIAL FIO2 (test code = FIO2A) 70.0 % ABG VENT MODE (test code = MODEA) Ventilator ALLENS TEST (test code = ALLENS) NOT APPLICABLE SODIUM (POC) (test code = NA/ABG) 139 mmol/L 135-147 N POTASSIUM (POC) (test code = K/ABG) 4.00 mmol/L 3.6-5.2 N CHLORIDE (ARTERIAL) (test code = CL/ABG) 103 mmol/L 98-108 N GLUCOSE (test code = GLU/ABG) 144 mg/dL 70-104 H IONIZED CALCIUM (test code = CAIABG) 1.16 mmol/L 1.12-1.32 N POC LACTIC ACID (test code = POCLAC) 1.82 mmol/L 0.5-2.2 N TOTAL HGB (test code = THB) 13.7 g/dL 13.0-17.0 N OXYHEMOGLOBIN (test code = OOHGBT) 97.7 % 92.0-98.0 N CARBOXYHEMOGLOBIN (test code = HOHGBT) 0.2 % 0-5.0 N METHEMOGLOBIN (test code = METHGB) <0.8 % 0-1.5 N HHb (test code = HHB) 1.6 % TCO2 ARTERIAL (test code = TCO2A) 32.6 MMOL/L 24-30 H BLOOD GAS [id number] 21:02:00* Test Item Value Reference Range Interpretation Comme nts ARTERIAL BLOOD GAS PCO2 (kristina t code = PCO2A) 37.6 mmHg 35.0-45.0 N ARTERIAL BLOOD GAS PO2 (test code = PO2A) 127.9 mmHg 80.0-95.0 H ABG O2 SATURATION (test code = SATA) 98.7 % 95.0-100.0 N ARTERIAL FIO2 (test code = FIO2A) 70.0 % ABG VENT MODE (test code = MODEA) Ventilator ALLENS TEST (test code = ALLENS) NOT APPLICABLE SODIUM (POC) (test code = NA/ABG) 146 mmol/L 135-147 N POTASSIUM (POC) (test code = K/ABG) 3.97 mmol/L 3.6-5.2 N CHLORIDE (ARTERIAL) (test co de = CL/ABG) 103 mmol/L 98-108 N GLUCOSE (test code = GLU/ABG) 137 mg/dL 70-104 H IONIZED CALCIUM (test code = CAIABG) 1.17 mmol/L 1.12-1.32 N POC LACTIC ACID (test code = POCLAC) 1.89 mmol/L 0.5-2.2 N TOTAL HGB (test code = THB) 13.6 g/dL 13.0-17.0 N OXYHEMOGLOBIN (test code = OOHGBT) 98.0 % 92.0-98.0 N CARBOXYHEMOGLOBIN (test code = HOHGBT) 0.6 % 0-5.0 N METHEMOGLOBIN (test code = METHGB) <0.8 % 0-1.5 N HHb (test code = HHB) 1.3 % [id number] 18:11:00* Test Item Value Reference Range Interpretation Comme nts GLUBED (test code = GLUBED) 101 MG/DL 70-105 N BASIC METABOLIC [id number] 16:30:00* Test Item Value Reference Range Interpretation Comme nts SODIUM (test code = NA) 146 mmol/L 136-145 H POTASSIUM (test code = K) 4.0 mmol/L 3.5-5.1 N CHLORIDE (test code = CL) 106 mmol/l 98-107 N CARBON DIOXIDE (test code = CO2) 30 mmol/L 20-31 N GLUCOSE (test code = GLU) 128 mg/dL 74-106 H BLOOD UREA NITROGEN (test code = BUN) 30 mg/dL 9-23 H GLOMERULAR FILTRATION RATE (test code = GFR) >=60 max estimate mL/min >60 The Glomerular Filtration Rate is a calculated parameterbased on serum Creatinine, patient age and sex. GFR valuesless than 60 mL/min/1.73 square meters are indicative ofChronic Kidney Disease. Values less than 15 mL/min/1.73square meters indicate Kidney failure. The calculation forGFR is based on the CKD-EPI (2020) calculation. This formulais race indifferent and is the recommended formula for GFRby the National Kidney Foundation for Adults.The GFR will not calculate if the sex is unknown or if thepatient's age is <18 years. CREATININE (test code = CREAT) 1.10 mg/dL 0.70-1.30 N CALCIUM (test code = CA) 9.4 mg/dL 8.7-10.4 N [id number] 16:30:00* Test Item Value Reference Range Interpretation Comme nts PHOSPHOROUS (test code = PHOS) 4.0 mg/dL 2.4-5.1 N [id number] 16:30:00* Test Item Value Reference Range Interpretation Comme nts MAGNESIUM (test code = MAG) 2.2 mg/dL 1.6-2.6 N BLOOD GAS [id number] 14:48:00* Test Item Value Reference Range Interpretation Comme nts ARTERIAL BLOOD GAS PH (test code = PHA) 7.51 7.35-7.45 H ARTERIAL BLOOD GAS PCO2 (test code = PCO2A) 39.4 mmHg 35.0-45.0 N ARTERIAL BLOOD GAS PO2 (test code = PO2A) 78.8 mmHg 80.0-95.0 L BICARBONATE TOTAL HCO3 (test code = HCO3) 30.8 mmol/L 22.0-24.0 H BASE EXCESS (test code = UZIEL) 7.3 mmol/L See_Comment H [Automated message] The system which generated this result transmitted reference range: (+/-)2.0. The reference range was not used to interpret this result as normal/abnormal. ABG O2 SATURATION (test code = SATA) 95.6 % 95.0-100.0 N ARTERIAL FIO2 (test code = FIO2A) 70.0 % ABG VENT MODE (test code = MODEA) Ventilator ALLENS TEST (test code = ALLENS) NOT APPLICABLE SODIUM (POC) (test code = NA/ABG) 143 mmol/L 135-147 N POTASSIUM (POC) (test code = K/ABG) 4.07 mmol/L 3.6-5.2 N CHLORIDE (ARTERIAL) (test code = CL/ABG) 103 mmol/L 98-108 N GLUCOSE (test code = GLU/ABG) 138 mg/dL 70-104 H IONIZED CALCIUM (test code = CAIABG) 1.17 mmol/L 1.12-1.32 N POC LACTIC ACID (test code = POCLAC) 1.82 mmol/L 0.5-2.2 N TOTAL HGB (test code = THB) 13.9 g/dL 13.0-17.0 N OXYHEMOGLOBIN (test code = OOHGBT) 95.2 % 92.0-98.0 N CARBOXYHEMOGLOBIN (test code = HOHGBT) 0.3 % 0-5.0 N METHEMOGLOBIN (test code = METHGB) <0.8 % 0-1.5 N HHb (test code = HHB) 4.4 % TCO2 ARTERIAL (test code = TCO2A) 32.0 MMOL/L 24-30 H VENOUS BLOOD [id number] 14:47:00* Test Item Value Reference Range Interpretation Comme nts VENOUS BLOOD GAS PH (test code = PHV) 7.44 7.35-7.45 N VENOUS BLOOD GAS PCO2 (test code = PCO2V) 50.4 mmHg See_Comment [Automated messa ge] The system which generated this result transmitted reference range: 46. The reference range was not used to interpret this result as normal/abnormal. VENOUS BLOOD GAS PO2 (test code = PO2V) 29.7 mmHg See_Comment [Automated messa ge] The system which generated this result transmitted reference range: 40. The reference range was not used to interpret this result as normal/abnormal. VBG HCO3 (test code = HCO3V) 34 meq/L VBG BASE EXCESS (test code = NATALYA) 7.9 MMOL/L VENOUS BLOOD GAS O2 SAT (test code = O2SATV) 52 % See_Comment [Automated messa ge] The system which generated this result transmitted reference range: 75. The reference range was not used to interpret this result as normal/abnormal. VENOUS BLOOD GAS TYPE (test code = TYPEV) Venous VENOUS BLOOD GAS FIO2 (test code = FIO2V) 70.0 % VBG VENT MODE (test code = MODEV) Ventilator VENOUS BLOOD [id number] 14:47:00* Test Item Value Reference Range Interpretation Comme nts VENOUS BLOOD GAS PH (test code = PHV) 7.42 7.35-7.45 N VENOUS BLOOD GAS PCO2 (test code = PCO2V) 55.2 mmHg See_Comment [Automated messa ge] The system which generated this result transmitted reference range: 46. The reference range was not used to interpret this result as normal/abnormal. VENOUS BLOOD GAS PO2 (test code = PO2V) 28.7 mmHg See_Comment [Automated messa ge] The system which generated this result transmitted reference range: 40. The reference range was not used to interpret this result as normal/abnormal. VBG HCO3 (test code = HCO3V) 35 meq/L VBG BASE EXCESS (test code = NATALYA) 8.2 MMOL/L VENOUS BLOOD GAS O2 SAT (test code = O2SATV) 48 % See_Comment [Automated messa ge] The system which generated this result transmitted reference range: 75. The reference range was not used to interpret this result as normal/abnormal. VENOUS BLOOD GAS TYPE (test code = TYPEV) Venous VENOUS BLOOD GAS FIO2 (test code = FIO2V) 70.0 % VBG VENT MODE (test code = MODEV) Ventilator BLOOD GAS [id number] 14:45:00* Test Item Value Reference Range Interpretation Comme nts ARTERIAL BLOOD GAS PH (test code = PHA) 7.48 7.35-7.45 H ARTERIAL BLOOD GAS PCO2 (test code = PCO2A) 41.1 mmHg 35.0-45.0 N ARTERIAL BLOOD GAS PO2 (test code = PO2A) 73.5 mmHg 80.0-95.0 L BICARBONATE TOTAL HCO3 (test code = HCO3) 29.7 mmol/L 22.0-24.0 H BASE EXCESS (test code = UZIEL) 5.7 mmol/L See_Comment H [Automated message] The system which generated this result transmitted reference range: (+/-)2.0. The reference range was not used to interpret this result as normal/abnormal. ABG O2 SATURATION (test code = SATA) 95.1 % 95.0-100.0 N ARTERIAL FIO2 (test code = FIO2A) 70.0 % ABG VENT MODE (test code = MODEA) Ventilator ALLENS TEST (test code = ALLENS) NOT APPLICABLE SODIUM (POC) (test code = NA/ABG) 146 mmol/L 135-147 N POTASSIUM (POC) (test code = K/ABG) 4.01 mmol/L 3.6-5.2 N CHLORIDE (ARTERIAL) (test code = CL/ABG) 101 mmol/L 98-108 N GLUCOSE (test code = GLU/ABG) 132 mg/dL 70-104 H IONIZED CALCIUM (test code = CAIABG) 1.19 mmol/L 1.12-1.32 N POC LACTIC ACID (test code = POCLAC) 1.65 mmol/L 0.5-2.2 N TOTAL HGB (test code = THB) 14.2 g/dL 13.0-17.0 N OXYHEMOGLOBIN (test code = OOHGBT) 94.5 % 92.0-98.0 N CARBOXYHEMOGLOBIN (test code = HOHGBT) 0.2 % 0-5.0 N METHEMOGLOBIN (test code = METHGB) <0.8 % 0-1.5 N HHb (test code = HHB) 4.9 % TCO2 ARTERIAL (test code = TCO2A) 31.0 MMOL/L 24-30 H [id number] 11:59:00* Test Item Value Reference Range Interpretation Comme nts GLUBED (test code = GLUBED) 106 MG/DL 70-105 H BLOOD GAS [id number] 11:49:00* Test Item Value Reference Range Interpretation Comme nts ARTERIAL BLOOD GAS PH (test code = PHA) 7.48 7.35-7.45 H ARTERIAL BLOOD GAS PCO2 (test code = PCO2A) 42.2 mmHg 35.0-45.0 N ARTERIAL BLOOD GAS PO2 (test code = PO2A) 80.1 mmHg 80.0-95.0 N BICARBONATE TOTAL HCO3 (test code = HCO3) 30.8 mmol/L 22.0-24.0 H BASE EXCESS (test code = UZIEL) 6.6 mmol/L See_Comment H [Automated message] The system which generated this result transmitted reference range: (+/-)2.0. The reference range was not used to interpret this result as normal/abnormal. ABG O2 SATURATION (test code = SATA) 95.9 % 95.0-100.0 N ARTERIAL FIO2 (test code = FIO2A) 70.0 % ABG VENT MODE (test code = MODEA) Ventilator ALLENS TEST (test code = ALLENS) NOT APPLICABLE SODIUM (POC) (test code = NA/ABG) 144 mmol/L 135-147 N POTASSIUM (POC) (test code = K/ABG) 3.92 mmol/L 3.6-5.2 N CHLORIDE (ARTERIAL) (test code = CL/ABG) 102 mmol/L 98-108 N GLUCOSE (test code = GLU/ABG) 134 mg/dL 70-104 H IONIZED CALCIUM (test code = CAIABG) 1.19 mmol/L 1.12-1.32 N POC LACTIC ACID (test code = POCLAC) 1.74 mmol/L 0.5-2.2 N TOTAL HGB (test code = THB) 14.0 g/dL 13.0-17.0 N OXYHEMOGLOBIN (test code = OOHGBT) 95.1 % 92.0-98.0 N CARBOXYHEMOGLOBIN (test code = HOHGBT) 0.4 % 0-5.0 N METHEMOGLOBIN (test code = METHGB) <0.8 % 0-1.5 N HHb (test code = HHB) 4.1 % TCO2 ARTERIAL (test code = TCO2A) 32.1 MMOL/L 24-30 H COMPREHENSIVE METABOLIC [id number] 11:01:00* Test Item Value Reference Range Interpretation Comme nts SODIUM (test code = NA) 142 mmol/L 136-145 N POTASSIUM (test code = K) 3.8 mmol/L 3.5-5.1 N CHLORIDE (test code = CL) 102 mmol/l 98-107 N CARBON DIOXIDE (test code = CO2) 31 mmol/L 20-31 N GLUCOSE (test code = GLU) 124 mg/dL 74-106 H BLOOD UREA NITROGEN (test code = BUN) 28 mg/dL 9-23 H GLOMERULAR FILTRATION RATE (test code = GFR) >=60 max estimate mL/min >60 The Glomerular Filtration Rate is a calculated parameterbased on serum Creatinine, patient age and sex. GFR valuesless than 60 mL/min/1.73 square meters are indicative ofChronic Kidney Disease. Values less than 15 mL/min/1.73square meters indicate Kidney failure. The calculation forGFR is based on the CKD-EPI (2020) calculation. This formulais race indifferent and is the recommended formula for GFRby the National Kidney Foundation for Adults.The GFR will not calculate if the sex is unknown or if thepatient's age is <18 years. CREATININE (test code = CREAT) 1.10 mg/dL 0.70-1.30 N TOTAL PROTEIN (test code = PROT) 7.3 g/dL 5.7-8.2 N ALBUMIN (test code = ALB) 4.6 g/dL 3.2-4.8 N CALCIUM (test code = CA) 9.6 mg/dL 8.7-10.4 N BILIRUBIN TOTAL (test code = BILT) 0.3 mg/dL 0.3-1.2 N SGOT/AST (test code = AST) 39 U/L <34 H SGPT/ALT (test code = ALT) 55 U/L 10-49 H ALKALINE PHOSPHATASE (test code = ALKP) 93.0 U/L 46-116 N [id number] 11:01:00* Test Item Value Reference Range Interpretation Comme nts PHOSPHOROUS (test code = PHOS) 4.5 mg/dL 2.4-5.1 N [id number] 11:01:00* Test Item Value Reference Range Interpretation Comme nts MAGNESIUM (test code = MAG) 2.2 mg/dL 1.6-2.6 N CBC W/AUTO [id number] 10:38:00* Test Item Value Reference Range Interpretation Comme nts WHITE BLOOD CELL (test code = WBC) 9.2 x10 3/uL 4.8-10.8 N RED BLOOD CELL (test code = RBC) 4.31 x10 6/uL 4.70-6.10 L HEMOGLOBIN (test code = HGB) 12.9 g/dL 14.0-18.0 L HEMATOCRIT (test code = HCT) 40.5 % 42.0-52.0 L MEAN CELL VOLUME (test code = MCV) 94.0 fL 80.0-94.0 N MEAN CELL HGB (test code = MCH) 29.9 pg 27-31 N MEAN CELL HGB CONCENTRATION (test code = MCHC) 31.9 G/DL 33-36.5 L RED CELL DISTRIBUTION WIDTH (test code = RDW) 16.3 % 12.9-16.9 N PLATELET COUNT (test code = PLT) 257 x10 3/uL 150-440 N MEAN PLATELET VOLUME (test c ode = MPV) 9.5 fL 8.9-12.4 N NEUTROPHIL % (test code = NT%) 74.3 % 42.2-75.2 N LYMPHOCYTE % (test code = LY%) 13.6 % 20.5-51.1 L MONOCYTE % (test code = MO%) 9.3 % 1.7-9.3 N EOSINOPHIL % (test code = EO%) 1.7 % 0.0-7.0 N BASOPHIL % (test code = BA%) 0.4 % 0-2.5 N NEUTROPHIL # (test code = NT#) 6.82 x10 3/uL 1.80-7.70 N LYMPHOCYTE # (test code = LY#) 1.25 x10 3/uL 1.00-4.80 N MONOCYTE # (test code = MO#) 0.85 x10 3/uL 0.00-0.80 H EOSINOPHIL # (test code = EO#) 0.16 x10 3/uL 0.00-0.45 N BASOPHIL # (test code = BA#) 0.04 x10 3/uL 0.0-0.20 N BLOOD GAS [id number] 07:57:00* Test Item Value Reference Range Interpretation Comme nts ARTERIAL BLOOD GAS PH (test code = PHA) 7.49 7.35-7.45 H ARTERIAL BLOOD GAS PCO2 (test code = PCO2A) 44.3 mmHg 35.0-45.0 N ARTERIAL BLOOD GAS PO2 (test code = PO2A) 60.6 mmHg 80.0-95.0 L BICARBONATE TOTAL HCO3 (test code = HCO3) 32.7 mmol/L 22.0-24.0 H BASE EXCESS (test code = UZIEL) 8.3 mmol/L See_Comment H [Automated message] The system which generated this result transmitted reference range: (+/-)2.0. The reference range was not used to interpret this result as normal/abnormal. ABG O2 SATURATION (test code = SATA) 90.9 % 95.0-100.0 L ARTERIAL FIO2 (test code = FIO2A) 50.0 % ABG VENT MODE (test code = MODEA) Ventilator ALLENS TEST (test code = ALLENS) NOT APPLICABLE SODIUM (POC) (test code = NA/ABG) 144 mmol/L 135-147 N POTASSIUM (POC) (test code = K/ABG) 3.42 mmol/L 3.6-5.2 L CHLORIDE (ARTERIAL) (test code = CL/ABG) 99 mmol/L 98-108 N GLUCOSE (test code = GLU/ABG) 143 mg/dL 70-104 H IONIZED CALCIUM (test code = CAIABG) 1.15 mmol/L 1.12-1.32 N POC LACTIC ACID (test code = POCLAC) 1.80 mmol/L 0.5-2.2 N TOTAL HGB (test code = THB) 13.9 g/dL 13.0-17.0 N OXYHEMOGLOBIN (test code = OOHGBT) 90.3 % 92.0-98.0 L CARBOXYHEMOGLOBIN (test code = HOHGBT) 0.3 % 0-5.0 N METHEMOGLOBIN (test code = METHGB) <0.8 % 0-1.5 N HHb (test code = HHB) 9.0 % TCO2 ARTERIAL (test code = TCO2A) 34.1 MMOL/L 24-30 H BLOOD GAS [id number] 07:54:00* Test Item Value Reference Range Interpretation Comme nts ARTERIAL BLOOD GAS PH (test code = PHA) 7.47 7.35-7.45 H ARTERIAL BLOOD GAS PCO2 (test code = PCO2A) 42.4 mmHg 35.0-45.0 N ARTERIAL BLOOD GAS PO2 (test code = PO2A) 72.6 mmHg 80.0-95.0 L BICARBONATE TOTAL HCO3 (test code = HCO3) 30.4 mmol/L 22.0-24.0 H BASE EXCESS (test code = UZIEL) 6.2 mmol/L See_Comment H [Automated message] The system which generated this result transmitted reference range: (+/-)2.0. The reference range was not used to interpret this result as normal/abnormal. ABG O2 SATURATION (test code = SATA) 93.9 % 95.0-100.0 L ARTERIAL FIO2 (test code = FIO2A) 70.0 % ABG VENT MODE (test code = MODEA) Ventilator ALLENS TEST (test code = ALLENS) NOT APPLICABLE SODIUM (POC) (test code = NA/ABG) 144 mmol/L 135-147 N POTASSIUM (POC) (test code = K/ABG) 3.84 mmol/L 3.6-5.2 N CHLORIDE (ARTERIAL) (test code = CL/ABG) 101 mmol/L 98-108 N GLUCOSE (test code = GLU/ABG) 133 mg/dL 70-104 H IONIZED CALCIUM (test code = CAIABG) 1.16 mmol/L 1.12-1.32 N POC LACTIC ACID (test code = POCLAC) 1.65 mmol/L 0.5-2.2 N TOTAL HGB (test code = THB) 13.9 g/dL 13.0-17.0 N OXYHEMOGLOBIN (test code = OOHGBT) 93.1 % 92.0-98.0 N CARBOXYHEMOGLOBIN (test code = HOHGBT) 0.6 % 0-5.0 N METHEMOGLOBIN (test code = METHGB) <0.8 % 0-1.5 N HHb (test code = HHB) 6.1 % TCO2 ARTERIAL (test code = TCO2A) 31.7 MMOL/L 24-30 H [id number] 06:55:00* Test Item Value Reference Range Interpretation Comme nts GLUBED (test code = GLUBED) 100 MG/DL 70-105 N COMPREHENSIVE METABOLIC [id number] 04:40:00* Test Item Value Reference Range Interpretation Comme nts SODIUM (test code = NA) 143 mmol/L 136-145 N POTASSIUM (test code = K) 3.8 mmol/L 3.5-5.1 N CHLORIDE (test code = CL) 102 mmol/l 98-107 N CARBON DIOXIDE (test code = CO2) 30 mmol/L 20-31 N GLUCOSE (test code = GLU) 127 mg/dL 74-106 H BLOOD UREA NITROGEN (test code = BUN) 27 mg/dL 9-23 H GLOMERULAR FILTRATION RATE (test code = GFR) >=60 max estimate mL/min >60 The Glomerular Filtration Rate is a calculated parameterbased on serum Creatinine, patient age and sex. GFR valuesless than 60 mL/min/1.73 square meters are indicative ofChronic Kidney Disease. Values less than 15 mL/min/1.73square meters indicate Kidney failure. The calculation forGFR is based on the CKD-EPI (2020) calculation. This formulais race indifferent and is the recommended formula for GFRby the National Kidney Foundation for Adults.The GFR will not calculate if the sex is unknown or if thepatient's age is <18 years. CREATININE (test code = CREAT) 1.10 mg/dL 0.70-1.30 N TOTAL PROTEIN (test code = PROT) 7.2 g/dL 5.7-8.2 N ALBUMIN (test code = ALB) 4.5 g/dL 3.2-4.8 N CALCIUM (test code = CA) 9.4 mg/dL 8.7-10.4 N BILIRUBIN TOTAL (test code = BILT) 0.4 mg/dL 0.3-1.2 N SGOT/AST (test code = AST) 48 U/L <34 H SGPT/ALT (test code = ALT) 59 U/L 10-49 H ALKALINE PHOSPHATASE (test code = ALKP) 92.0 U/L 46-116 N [id number] 04:40:00* Test Item Value Reference Range Interpretation Comme nts PHOSPHOROUS (test code = PHOS) 4.2 mg/dL 2.4-5.1 N [id number] 04:40:00* Test Item Value Reference Range Interpretation Comme nts MAGNESIUM (test code = MAG) 2.2 mg/dL 1.6-2.6 N PROTHROMBIN [id number] 04:30:00* Test Item Value Reference Range Interpretation Comme nts PROTHROMBIN TIME PATIENT (test code = PTP) 13.0 SECONDS 10.3-12.9 H INTERNATIONAL NORMAL RATIO (test code = INR) 1.16 0.9-1.11 H INR goals are individualized based on patient specificfactors. The following are only general guidelines: Indications: INR Goal:1. Treatment of venous thromboembolism and 2.0 - 3.0 systemic anticoagulation in a variety of conditions, including atrial fibrillation and mechanical heart valves 2. Mechanical mitral and tricuspid valves, 2.5 - 3.5 systemic anticoagulation for high-risk conditions THROMBOPLASTIN TIME [id number] 04:30:00* Test Item Value Reference Range Interpretation Comme nts THROMBOPLASTIN TIME PARTIAL (test code = PTT) 30.0 secs 23.8-34.8 N INTERPRETATIVE D EDGARD: Therapeutic range: Unfractionated Heparin: 60-90 seconds Argatroban: 60-90 seconds [id number] 04:30:00* Test Item Value Reference Range Interpretation Comme [facility] FIBRINOGEN (test code = FIB) 839 mg/dL 200-400 H CBC W/AUTO [id number] 04:22:00* Test Item Value Reference Range Interpretation Comme nts WHITE BLOOD CELL (test code = WBC) 9.3 x10 3/uL 4.8-10.8 N RED BLOOD CELL (test code = RBC) 4.17 x10 6/uL 4.70-6.10 L HEMOGLOBIN (test code = HGB) 12.8 g/dL 14.0-18.0 L HEMATOCRIT (test code = HCT) 39.2 % 42.0-52.0 L MEAN CELL VOLUME (test code = MCV) 94.0 fL 80.0-94.0 N MEAN CELL HGB (test code = MCH) 30.7 pg 27-31 N MEAN CELL HGB CONCENTRATION (test code = MCHC) 32.7 G/DL 33-36.5 L RED CELL DISTRIBUTION WIDTH (test code = RDW) 16.4 % 12.9-16.9 N PLATELET COUNT (test code = PLT) 263 x10 3/uL 150-440 N MEAN PLATELET VOLUME (test c ode = MPV) 9.4 fL 8.9-12.4 N NEUTROPHIL % (test code = NT%) 72.6 % 42.2-75.2 N LYMPHOCYTE % (test code = LY%) 15.6 % 20.5-51.1 L MONOCYTE % (test code = MO%) 9.3 % 1.7-9.3 N EOSINOPHIL % (test code = EO%) 1.4 % 0.0-7.0 N BASOPHIL % (test code = BA%) 0.5 % 0-2.5 N NEUTROPHIL # (test code = NT#) 6.71 x10 3/uL 1.80-7.70 N LYMPHOCYTE # (test code = LY#) 1.44 x10 3/uL 1.00-4.80 N MONOCYTE # (test code = MO#) 0.86 x10 3/uL 0.00-0.80 H EOSINOPHIL # (test code = EO#) 0.13 x10 3/uL 0.00-0.45 N BASOPHIL # (test code = BA#) 0.05 x10 3/uL 0.0-0.20 N BASIC METABOLIC [id number] 00:42:00* Test Item Value Reference Range Interpretation Comme nts SODIUM (test code = NA) 145 mmol/L 136-145 N POTASSIUM (test code = K) 3.5 mmol/L 3.5-5.1 N CHLORIDE (test code = CL) 104 mmol/l 98-107 N CARBON DIOXIDE (test code = CO2) 31 mmol/L 20-31 N GLUCOSE (test code = GLU) 131 mg/dL 74-106 H BLOOD UREA NITROGEN (test code = BUN) 25 mg/dL 9-23 H GLOMERULAR FILTRATION RATE (test code = GFR) >=60 max estimate mL/min >60 The Glomerular Filtration Rate is a calculated parameterbased on serum Creatinine, patient age and sex. GFR valuesless than 60 mL/min/1.73 square meters are indicative ofChronic Kidney Disease. Values less than 15 mL/min/1.73square meters indicate Kidney failure. The calculation forGFR is based on the CKD-EPI (202) calculation. This formulais race indifferent and is the recommended formula for GFRby the National Kidney Foundation for Adults.The GFR will not calculate if the sex is unknown or if thepatient's age is <18 years. CREATININE (test code = CREAT) 1.00 mg/dL 0.70-1.30 N CALCIUM (test code = CA) 8.6 mg/dL 8.7-10.4 L [id number] 00:42:00* Test Item Value Reference Range Interpretation Comme nts PHOSPHOROUS (test code = PHOS) 4.1 mg/dL 2.4-5.1 N [id number] 00:42:00* Test Item Value Reference Range Interpretation Comme nts MAGNESIUM (test code = MAG) 2.2 mg/dL 1.6-2.6 N BLOOD GAS [id number] 19:52:00* Test Item Value Reference Range Interpretation Comme nts ARTERIAL BLOOD GAS PH (test code = PHA) 7.55 7.35-7.45 H ARTERIAL BLOOD GAS PCO2 (test code = PCO2A) 38.5 mmHg 35.0-45.0 N ARTERIAL BLOOD GAS PO2 (test code = PO2A) 54.9 mmHg 80.0-95.0 L BICARBONATE TOTAL HCO3 (test code = HCO3) 33.2 mmol/L 22.0-24.0 H BASE EXCESS (test code = UZIEL) 10.2 mmol/L See_Comment H [Automated message] The system which generated this result transmitted reference range: (+/-)2.0. The reference range was not used to interpret this result as normal/abnormal. ABG O2 SATURATION (test code = SATA) 90.6 % 95.0-100.0 L ARTERIAL FIO2 (test code = FIO2A) 40.0 % ABG VENT MODE (test code = MODEA) Ventilator ALLENS TEST (test code = ALLENS) NOT APPLICABLE SODIUM (POC) (test code = NA/ABG) 142 mmol/L 135-147 N POTASSIUM (POC) (test code = K/ABG) 3.36 mmol/L 3.6-5.2 L CHLORIDE (ARTERIAL) (test code = CL/ABG) 97 mmol/L 98-108 L GLUCOSE (test code = GLU/ABG) 137 mg/dL 70-104 H IONIZED CALCIUM (test code = CAIABG) 1.10 mmol/L 1.12-1.32 L POC LACTIC ACID (test code = POCLAC) 1.99 mmol/L 0.5-2.2 N TOTAL HGB (test code = THB) 14.2 g/dL 13.0-17.0 N OXYHEMOGLOBIN (test code = OOHGBT) 90.0 % 92.0-98.0 L CARBOXYHEMOGLOBIN (test code = HOHGBT) 0.3 % 0-5.0 N METHEMOGLOBIN (test code = METHGB) <0.8 % 0-1.5 N HHb (test code = HHB) 9.3 % TCO2 ARTERIAL (test code = TCO2A) 34.4 MMOL/L 24-30 H VENOUS BLOOD [id number] 19:51:00* Test Item Value Reference Range Interpretation Comme nts VENOUS BLOOD GAS PH (test code = PHV) 7.49 7.35-7.45 H VENOUS BLOOD GAS PCO2 (test code = PCO2V) 42.4 mmHg See_Comment [Automated messa ge] The system which generated this result transmitted reference range: 46. The reference range was not used to interpret this result as normal/abnormal. VENOUS BLOOD GAS PO2 (test code = PO2V) 32.3 mmHg See_Comment [Automated messa ge] The system which generated this result transmitted reference range: 40. The reference range was not used to interpret this result as normal/abnormal. VBG HCO3 (test code = HCO3V) 31 meq/L VBG BASE EXCESS (test code = NATALYA) 7.3 MMOL/L VENOUS BLOOD GAS O2 SAT (test code = O2SATV) 63 % See_Comment [Automated messa ge] The system which generated this result transmitted reference range: 75. The reference range was not used to interpret this result as normal/abnormal. VENOUS BLOOD GAS TYPE (test code = TYPEV) Venous VENOUS BLOOD GAS FIO2 (test code = FIO2V) 40.0 % VBG VENT MODE (test code = MODEV) Ventilator BLOOD GAS [id number] 19:49:00* Test Item Value Reference Range Interpretation Comme nts ARTERIAL BLOOD GAS PH (test code = PHA) 7.51 7.35-7.45 H ARTERIAL BLOOD GAS PCO2 (test code = PCO2A) 41.4 mmHg 35.0-45.0 N ARTERIAL BLOOD GAS PO2 (test code = PO2A) 62.9 mmHg 80.0-95.0 L BICARBONATE TOTAL HCO3 (test code = HCO3) 32.6 mmol/L 22.0-24.0 H BASE EXCESS (test code = UZIEL) 8.8 mmol/L See_Comment H [Automated message] The system which generated this result transmitted reference range: (+/-)2.0. The reference range was not used to interpret this result as normal/abnormal. ABG O2 SATURATION (test code = SATA) 92.4 % 95.0-100.0 L ARTERIAL FIO2 (test code = FIO2A) 40.0 % ABG VENT MODE (test code = MODEA) Ventilator ALLENS TEST (test code = ALLENS) NOT APPLICABLE SODIUM (POC) (test code = NA/ABG) 141 mmol/L 135-147 N POTASSIUM (POC) (test code = K/ABG) 3.59 mmol/L 3.6-5.2 L CHLORIDE (ARTERIAL) (test code = CL/ABG) 96 mmol/L 98-108 L GLUCOSE (test code = GLU/ABG) 148 mg/dL 70-104 H IONIZED CALCIUM (test code = CAIABG) 1.19 mmol/L 1.12-1.32 N POC LACTIC ACID (test code = POCLAC) 1.88 mmol/L 0.5-2.2 N TOTAL HGB (test code = THB) 14.1 g/dL 13.0-17.0 N OXYHEMOGLOBIN (test code = OOHGBT) 91.6 % 92.0-98.0 L CARBOXYHEMOGLOBIN (test code = HOHGBT) 0.6 % 0-5.0 N METHEMOGLOBIN (test code = METHGB) <0.8 % 0-1.5 N HHb (test code = HHB) 7.5 % TCO2 ARTERIAL (test code = TCO2A) 33.9 MMOL/L 24-30 H Novel Coronavirus [id number] 19:01:00* Test Item Value Reference Range Interpretation Comme nts Novel Coronavirus 2019 Inhouse (test code = [id number]) Negative Negative Positive resul ts are indicative of the presence esBUSN-[id number]-5 RNA, clinical correlation with patient historyand other diagnostic information is necessary to determinepatient infection status. Positive results do not rule outbacterial infection or co-infection with other viruses. Negative results do not preclude SARS-CoV-2 infection andshould not be used as the sole basis for patient managementdecisions. Negative results must be combined with otherclinical observations, patient history, and epidemiologicalinformation . Detection of SARS-CoV-2 RNA may be affected bysample collection methods, storage conditions, and/or stageof infection. Viral RNA mutations, vaccinations, antiviraltherapeutics, antibiotics, chemotherapeutic orimmunosuppressant drugs have not been evaluated for effectson detection. Results are for the identification of SARS-CoV-2 RNA usingreal-time (RT) polymerase chain reaction (PCR) technologyfor the qualitative detection of nucleic acids from [id number]-[id number]-6 virus and diagnosis of SARS-CoV-2 virusinfection. It is an Emergency Use Authorization (EUA) testauthorized by the [place] FDA. [id number] 17:36:00* Test Item Value Reference Range Interpretation Comme nts GLUBED (test code = GLUBED) 147 MG/DL 70-105 H LACTIC [id number] 12:19:00* Test Item Value Reference Range Interpretation Comme nts LACTIC ACID (test code = LACT) 0.80 mmol/L 0.5-2.0 N BASIC METABOLIC [id number] 12:01:00* Test Item Value Reference Range Interpretation Comme nts SODIUM (test code = NA) 141 mmol/L 136-145 N POTASSIUM (test code = K) 3.5 mmol/L 3.5-5.1 N CHLORIDE (test code = CL) 99 mmol/l 98-107 N CARBON DIOXIDE (test code = CO2) 30 mmol/L 20-31 N GLUCOSE (test code = GLU) 113 mg/dL 74-106 H BLOOD UREA NITROGEN (test code = BUN) 24 mg/dL 9-23 H GLOMERULAR FILTRATION RATE (test code = GFR) >=60 max estimate mL/min >60 The Glomerular Filtration Rate is a calculated parameterbased on serum Creatinine, patient age and sex. GFR valuesless than 60 mL/min/1.73 square meters are indicative ofChronic Kidney Disease. Values less than 15 mL/min/1.73square meters indicate Kidney failure. The calculation forGFR is based on the CKD-EPI (2020) calculation. This formulais race indifferent and is the recommended formula for GFRby the National Kidney Foundation for Adults.The GFR will not calculate if the sex is unknown or if thepatient's age is <18 years. CREATININE (test code = CREAT) 1.00 mg/dL 0.70-1.30 N CALCIUM (test code = CA) 9.3 mg/dL 8.7-10.4 N [id number] 12:01:00* Test Item Value Reference Range Interpretation Comme [facility] PHOSPHOROUS (test code = PHOS) 3.5 mg/dL 2.4-5.1 N [id number] 12:01:00* Test Item Value Reference Range Interpretation Comme [facility] MAGNESIUM (test code = MAG) 1.9 mg/dL 1.6-2.6 N PROTHROMBIN [id number] 11:57:00* Test Item Value Reference Range Interpretation Comme [facility] PROTHROMBIN TIME PATIENT (test code = PTP) 13.5 SECONDS 10.3-12.9 H INTERNATIONAL NORMAL RATIO (test code = INR) 1.21 0.9-1.11 H INR goals are individualized based on patient specificfactors. The following are only general guidelines: Indications: INR Goal:1. Treatment of venous thromboembolism and 2.0 - 3.0 systemic anticoagulation in a variety of conditions, including atrial fibrillation and mechanical heart valves 2. Mechanical mitral and tricuspid valves, 2.5 - 3.5 systemic anticoagulation for high-risk conditions THROMBOPLASTIN TIME [id number] 11:57:00* Test Item Value Reference Range Interpretation Comme [facility] THROMBOPLASTIN TIME PARTIAL (test code = PTT) 29.1 secs 23.8-34.8 N INTERPRETATIVE D EDGARD: Therapeutic range: Unfractionated Heparin: 60-90 seconds Argatroban: 60-90 seconds CBC W/AUTO [id number] 11:43:00* Test Item Value Reference Range Interpretation Comme nts WHITE BLOOD CELL (test code = WBC) 9.9 x10 3/uL 4.8-10.8 N RED BLOOD CELL (test code = RBC) 4.42 x10 6/uL 4.70-6.10 L HEMOGLOBIN (test code = HGB) 13.4 g/dL 14.0-18.0 L HEMATOCRIT (test code = HCT) 40.8 % 42.0-52.0 L MEAN CELL VOLUME (test code = MCV) 92.3 fL 80.0-94.0 N MEAN CELL HGB (test code = MCH) 30.3 pg 27-31 N MEAN CELL HGB CONCENTRATION (test code = MCHC) 32.8 G/DL 33-36.5 L RED CELL DISTRIBUTION WIDTH (test code = RDW) 16.2 % 12.9-16.9 N PLATELET COUNT (test code = PLT) 265 x10 3/uL 150-440 N MEAN PLATELET VOLUME (test c ode = MPV) 9.6 fL 8.9-12.4 N NEUTROPHIL % (test code = NT%) 73.0 % 42.2-75.2 N LYMPHOCYTE % (test code = LY%) 15.8 % 20.5-51.1 L MONOCYTE % (test code = MO%) 9.8 % 1.7-9.3 H EOSINOPHIL % (test code = EO%) 0.4 % 0.0-7.0 N BASOPHIL % (test code = BA%) 0.4 % 0-2.5 N NEUTROPHIL # (test code = NT#) 7.23 x10 3/uL 1.80-7.70 N LYMPHOCYTE # (test code = LY#) 1.56 x10 3/uL 1.00-4.80 N MONOCYTE # (test code = MO#) 0.97 x10 3/uL 0.00-0.80 H EOSINOPHIL # (test code = EO#) 0.04 x10 3/uL 0.00-0.45 N BASOPHIL # (test code = BA#) 0.04 x10 3/uL 0.0-0.20 N COMPREHENSIVE METABOLIC [id number] 05:21:00* Test Item Value Reference Range Interpretation Comme nts SODIUM (test code = NA) 139 mmol/L 136-145 N POTASSIUM (test code = K) 3.1 mmol/L 3.5-5.1 L CHLORIDE (test code = CL) 98 mmol/l 98-107 N CARBON DIOXIDE (test code = CO2) 31 mmol/L 20-31 N GLUCOSE (test code = GLU) 127 mg/dL 74-106 H BLOOD UREA NITROGEN (test code = BUN) 25 mg/dL 9-23 H GLOMERULAR FILTRATION RATE (test code = GFR) >=60 max estimate mL/min >60 The Glomerular Filtration Rate is a calculated parameterbased on serum Creatinine, patient age and sex. GFR valuesless than 60 mL/min/1.73 square meters are indicative ofChronic Kidney Disease. Values less than 15 mL/min/1.73square meters indicate Kidney failure. The calculation forGFR is based on the CKD-EPI (2020) calculation. This formulais race indifferent and is the recommended formula for GFRby the National Kidney Foundation for Adults.The GFR will not calculate if the sex is unknown or if thepatient's age is <18 years. CREATININE (test code = CREAT) 1.00 mg/dL 0.70-1.30 N TOTAL PROTEIN (test code = PROT) 7.2 g/dL 5.7-8.2 N ALBUMIN (test code = ALB) 4.6 g/dL 3.2-4.8 N CALCIUM (test code = CA) 9.4 mg/dL 8.7-10.4 N BILIRUBIN TOTAL (test code = BILT) 0.5 mg/dL 0.3-1.2 N SGOT/AST (test code = AST) 43 U/L <34 H SGPT/ALT (test code = ALT) 52 U/L 10-49 H ALKALINE PHOSPHATASE (test code = ALKP) 104.0 U/L 46-116 N [id number] 05:21:00* Test Item Value Reference Range Interpretation Comme nts PHOSPHOROUS (test code = PHOS) 3.0 mg/dL 2.4-5.1 N [id number] 05:21:00* Test Item Value Reference Range Interpretation Comme nts MAGNESIUM (test code = MAG) 1.8 mg/dL 1.6-2.6 N PROTHROMBIN [id number] 05:07:00* Test Item Value Reference Range Interpretation Comme nts PROTHROMBIN TIME PATIENT (test code = PTP) 12.6 SECONDS 10.3-12.9 N INTERNATIONAL NORMAL RATIO (test code = INR) 1.13 0.9-1.11 H INR goals are individualized based on patient specificfactors. The following are only general guidelines: Indications: INR Goal:1. Treatment of venous thromboembolism and 2.0 - 3.0 systemic anticoagulation in a variety of conditions, including atrial fibrillation and mechanical heart valves 2. Mechanical mitral and tricuspid valves, 2.5 - 3.5 systemic anticoagulation for high-risk conditions THROMBOPLASTIN TIME [id number] 05:07:00* Test Item Value Reference Range Interpretation Comme nts THROMBOPLASTIN TIME PARTIAL (test code = PTT) 29.2 secs 23.8-34.8 N INTERPRETATIVE D EDGARD: Therapeutic range: Unfractionated Heparin: 60-90 seconds Argatroban: 60-90 seconds [id number] 05:07:00* Test Item Value Reference Range Interpretation Comme nts FIBRINOGEN (test code = FIB) 872 mg/dL 200-400 H CBC W/AUTO [id number] 04:58:00* Test Item Value Reference Range Interpretation Comme nts WHITE BLOOD CELL (test code = WBC) 9.4 x10 3/uL 4.8-10.8 N RED BLOOD CELL (test code = RBC) 4.29 x10 6/uL 4.70-6.10 L HEMOGLOBIN (test code = HGB) 13.1 g/dL 14.0-18.0 L HEMATOCRIT (test code = HCT) 39.1 % 42.0-52.0 L MEAN CELL VOLUME (test code = MCV) 91.1 fL 80.0-94.0 N MEAN CELL HGB (test code = MCH) 30.5 pg 27-31 N MEAN CELL HGB CONCENTRATION (test code = MCHC) 33.5 G/DL 33-36.5 N RED CELL DISTRIBUTION WIDTH (test code = RDW) 16.3 % 12.9-16.9 N PLATELET COUNT (test code = PLT) 265 x10 3/uL 150-440 N MEAN PLATELET VOLUME (test c ode = MPV) 9.8 fL 8.9-12.4 N NEUTROPHIL % (test code = NT%) 72.6 % 42.2-75.2 N LYMPHOCYTE % (test code = LY%) 16.6 % 20.5-51.1 L MONOCYTE % (test code = MO%) 9.3 % 1.7-9.3 N EOSINOPHIL % (test code = EO%) 0.5 % 0.0-7.0 N BASOPHIL % (test code = BA%) 0.4 % 0-2.5 N NEUTROPHIL # (test code = NT#) 6.83 x10 3/uL 1.80-7.70 N LYMPHOCYTE # (test code = LY#) 1.57 x10 3/uL 1.00-4.80 N MONOCYTE # (test code = MO#) 0.88 x10 3/uL 0.00-0.80 H EOSINOPHIL # (test code = EO#) 0.05 x10 3/uL 0.00-0.45 N BASOPHIL # (test code = BA#) 0.04 x10 3/uL 0.0-0.20 N BLOOD GAS [id number] 20:27:00* Test Item Value Reference Range Interpretation Comme nts ARTERIAL BLOOD GAS PH (test code = PHA) 7.49 7.35-7.45 H ARTERIAL BLOOD GAS PCO2 (test code = PCO2A) 42.3 mmHg 35.0-45.0 N ARTERIAL BLOOD GAS PO2 (test code = PO2A) 73.6 mmHg 80.0-95.0 L BICARBONATE TOTAL HCO3 (test code = HCO3) 31.7 mmol/L 22.0-24.0 H BASE EXCESS (test code = UZIEL) 7.6 mmol/L See_Comment H [Automated message] The system which generated this result transmitted reference range: (+/-)2.0. The reference range was not used to interpret this result as normal/abnormal. ABG O2 SATURATION (test code = SATA) 95.2 % 95.0-100.0 N ARTERIAL FIO2 (test code = FIO2A) 40.0 % ABG VENT MODE (test code = MODEA) Ventilator ALLENS TEST (test code = ALLENS) NOT APPLICABLE SODIUM (POC) (test code = NA/ABG) 140 mmol/L 135-147 N POTASSIUM (POC) (test code = K/ABG) 3.91 mmol/L 3.6-5.2 N CHLORIDE (ARTERIAL) (test code = CL/ABG) 96 mmol/L 98-108 L GLUCOSE (test code = GLU/ABG) 149 mg/dL 70-104 H IONIZED CALCIUM (test code = CAIABG) 1.15 mmol/L 1.12-1.32 N POC LACTIC ACID (test code = POCLAC) 1.90 mmol/L 0.5-2.2 N TOTAL HGB (test code = THB) 13.6 g/dL 13.0-17.0 CARBOXYHEMOGLOBIN (test code = HOHGBT) 0.4 % 0-5.0 N METHEMOGLOBIN (test code = METHGB) <0.8 % 0-1.5 N HHb (test code = HHB) 4.8 % TCO2 ARTERIAL (test code = TCO2A) 33.0 MMOL/L 24-30 H BLOOD GAS [id number] 20:26:00* Test Item Value Reference Range Interpretation Comme nts ARTERIAL BLOOD GAS PH (test code = PHA) 7.53 7.35-7.45 H ARTERIAL BLOOD GAS PCO2 (test code = PCO2A) 34.0 mmHg 35.0-45.0 L ARTERIAL BLOOD GAS PO2 (test code = PO2A) 102.4 mmHg 80.0-95.0 H BICARBONATE TOTAL HCO3 (test code = HCO3) 28.0 mmol/L 22.0-24.0 H BASE EXCESS (test code = UZIEL) 5.6 mmol/L See_Comment H [Automated message] The system which generated this result transmitted reference range: (+/-)2.0. The reference range was not used to interpret this result as normal/abnormal. ABG O2 SATURATION (test code = SATA) 98.2 % 95.0-100.0 N ARTERIAL FIO2 (test code = FIO2A) 50.0 % ABG VENT MODE (test code = MODEA) Ventilator ABG VENT RESP RATE (test code = RRA) 18 /MIN ABG TIDAL VOLUME (test code = TIDAL VOLUME) 480.0 ML ABG PEEP (test code = PEEP) 5.0 cmH2O ALLENS TEST (test code = ALLENS) NOT APPLICABLE SODIUM (POC) (test code = NA/ABG) 134 mmol/L 135-147 L POTASSIUM (POC) (test code = K/ABG) 3.64 mmol/L 3.6-5.2 N CHLORIDE (ARTERIAL) (test code = CL/ABG) 96 mmol/L 98-108 L GLUCOSE (test code = GLU/ABG) 128 mg/dL 70-104 H IONIZED CALCIUM (test code = CAIABG) 1.09 mmol/L 1.12-1.32 L POC LACTIC ACID (test code = POCLAC) 1.57 mmol/L 0.5-2.2 N TOTAL HGB (test code = THB) 13.7 g/dL 13.0-17.0 N OXYHEMOGLOBIN (test code = OOHGBT) 97.7 % 92.0-98.0 N CARBOXYHEMOGLOBIN (test code = HOHGBT) 0.5 % 0-5.0 N METHEMOGLOBIN (test code = METHGB) <0.8 % 0-1.5 N HHb (test code = HHB) 1.8 % TCO2 ARTERIAL (test code = TCO2A) 29.1 MMOL/L 24-30 N BLOOD GAS [id number] 20:26:00* Test Item Value Reference Range Interpretation Comme nts ARTERIAL BLOOD GAS PH (test code = PHA) 7.53 7.35-7.45 H ARTERIAL BLOOD GAS PCO2 (test code = PCO2A) 35.5 mmHg 35.0-45.0 N ARTERIAL BLOOD GAS PO2 (test code = PO2A) 74.3 mmHg 80.0-95.0 L BICARBONATE TOTAL HCO3 (test code = HCO3) 28.7 mmol/L 22.0-24.0 H BASE EXCESS (test code = UZIEL) 6.1 mmol/L See_Comment H [Automated message] The system which generated this result transmitted reference range: (+/-)2.0. The reference range was not used to interpret this result as normal/abnormal. ABG O2 SATURATION (test code = SATA) 96.1 % 95.0-100.0 N ARTERIAL FIO2 (test code = FIO2A) 50.0 % ABG VENT MODE (test code = MODEA) NASAL CANNULA ALLENS TEST (test code = ALLENS) NOT APPLICABLE SODIUM (POC) (test code = NA/ABG) 134 mmol/L 135-147 L POTASSIUM (POC) (test code = K/ABG) 3.47 mmol/L 3.6-5.2 L CHLORIDE (ARTERIAL) (test code = CL/ABG) 95 mmol/L 98-108 L GLUCOSE (test code = GLU/ABG) 116 mg/dL 70-104 H IONIZED CALCIUM (test code = CAIABG) 1.12 mmol/L 1.12-1.32 N POC LACTIC ACID (test code = POCLAC) 1.46 mmol/L 0.5-2.2 N TOTAL HGB (test code = THB) 16.3 g/dL 13.0-17.0 N OXYHEMOGLOBIN (test code = OOHGBT) 95.1 % 92.0-98.0 N CARBOXYHEMOGLOBIN (test code = HOHGBT) 0.9 % 0-5.0 N METHEMOGLOBIN (test code = METHGB) <0.8 % 0-1.5 N HHb (test code = HHB) 3.9 % TCO2 ARTERIAL (test code = TCO2A) 29.8 MMOL/L 24-30 N BASIC METABOLIC [id number] 19:02:00* Test Item Value Reference Range Interpretation Comme nts SODIUM (test code = NA) 141 mmol/L 136-145 N POTASSIUM (test code = K) 3.9 mmol/L 3.5-5.1 N CHLORIDE (test code = CL) 101 mmol/l 98-107 N CARBON DIOXIDE (test code = CO2) 30 mmol/L 20-31 N GLUCOSE (test code = GLU) 138 mg/dL 74-106 H BLOOD UREA NITROGEN (test code = BUN) 21 mg/dL 9-23 N GLOMERULAR FILTRATION RATE (test code = GFR) >=60 max estimate mL/min >60 The Glomerular Filtration Rate is a calculated parameterbased on serum Creatinine, patient age and sex. GFR valuesless than 60 mL/min/1.73 square meters are indicative ofChronic Kidney Disease. Values less than 15 mL/min/1.73square meters indicate Kidney failure. The calculation forGFR is based on the CKD-EPI (2020) calculation. This formulais race indifferent and is the recommended formula for GFRby the National Kidney Foundation for Adults.The GFR will not calculate if the sex is unknown or if thepatient's age is <18 years. CREATININE (test code = CREAT) 1.00 mg/dL 0.70-1.30 N CALCIUM (test code = CA) 8.7 mg/dL 8.7-10.4 N [id number] 19:02:00* Test Item Value Reference Range Interpretation Comme nts PHOSPHOROUS (test code = PHOS) 3.3 mg/dL 2.4-5.1 N [id number] 19:02:00* Test Item Value Reference Range Interpretation Comme nts MAGNESIUM (test code = MAG) 2.1 mg/dL 1.6-2.6 N PROTHROMBIN [id number] 19:00:00* Test Item Value Reference Range Interpretation Comme nts PROTHROMBIN TIME PATIENT (test code = PTP) 12.5 SECONDS 10.3-12.9 N INTERNATIONAL NORMAL RATIO (test code = INR) 1.12 0.9-1.11 H INR goals are individualized based on patient specificfactors. The following are only general guidelines: Indications: INR Goal:1. Treatment of venous thromboembolism and 2.0 - 3.0 systemic anticoagulation in a variety of conditions, including atrial fibrillation and mechanical heart valves 2. Mechanical mitral and tricuspid valves, 2.5 - 3.5 systemic anticoagulation for high-risk conditions THROMBOPLASTIN TIME [id number] 19:00:00* Test Item Value Reference Range Interpretation Comme nts THROMBOPLASTIN TIME PARTIAL (test code = PTT) 28.5 secs 23.8-34.8 N INTERPRETATIVE D EDGARD: Therapeutic range: Unfractionated Heparin: 60-90 seconds Argatroban: 60-90 seconds CBC W/AUTO [id number] 19:00:00* Test Item Value Reference Range Interpretation Comme nts WHITE BLOOD CELL (test code = WBC) 9.1 x10 3/uL 4.8-10.8 N RED BLOOD CELL (test code = RBC) 4.15 x10 6/uL 4.70-6.10 L HEMOGLOBIN (test code = HGB) 12.5 g/dL 14.0-18.0 L HEMATOCRIT (test code = HCT) 37.7 % 42.0-52.0 L MEAN CELL VOLUME (test code = MCV) 90.8 fL 80.0-94.0 N MEAN CELL HGB (test code = MCH) 30.1 pg 27-31 N MEAN CELL HGB CONCENTRATION (test code = MCHC) 33.2 G/DL 33-36.5 N RED CELL DISTRIBUTION WIDTH (test code = RDW) 16.2 % 12.9-16.9 N PLATELET COUNT (test code = PLT) 246 x10 3/uL 150-440 N MEAN PLATELET VOLUME (test c ode = MPV) 9.6 fL 8.9-12.4 N NEUTROPHIL % (test code = NT%) 74.0 % 42.2-75.2 N LYMPHOCYTE % (test code = LY%) 15.4 % 20.5-51.1 L MONOCYTE % (test code = MO%) 9.1 % 1.7-9.3 N EOSINOPHIL % (test code = EO%) 0.5 % 0.0-7.0 N BASOPHIL % (test code = BA%) 0.3 % 0-2.5 N NEUTROPHIL # (test code = NT#) 6.75 x10 3/uL 1.80-7.70 N LYMPHOCYTE # (test code = LY#) 1.40 x10 3/uL 1.00-4.80 N MONOCYTE # (test code = MO#) 0.83 x10 3/uL 0.00-0.80 H EOSINOPHIL # (test code = EO#) 0.05 x10 3/uL 0.00-0.45 N BASOPHIL # (test code = BA#) 0.03 x10 3/uL 0.0-0.20 N BASIC METABOLIC [id number] 12:45:00* Test Item Value Reference Range Interpretation Comme nts SODIUM (test code = NA) 137 mmol/L 136-145 N POTASSIUM (test code = K) 3.6 mmol/L 3.5-5.1 N CHLORIDE (test code = CL) 99 mmol/l 98-107 N CARBON DIOXIDE (test code = CO2) 27 mmol/L 20-31 N GLUCOSE (test code = GLU) 152 mg/dL 74-106 H BLOOD UREA NITROGEN (test code = BUN) 22 mg/dL 9-23 N GLOMERULAR FILTRATION RATE (test code = GFR) >=60 max estimate mL/min >60 The Glomerular Filtration Rate is a calculated parameterbased on serum Creatinine, patient age and sex. GFR valuesless than 60 mL/min/1.73 square meters are indicative ofChronic Kidney Disease. Values less than 15 mL/min/1.73square meters indicate Kidney failure. The calculation forGFR is based on the CKD-EPI (2020) calculation. This formulais race indifferent and is the recommended formula for GFRby the National Kidney Foundation for Adults.The GFR will not calculate if the sex is unknown or if thepatient's age is <18 years. CREATININE (test code = CREAT) 1.10 mg/dL 0.70-1.30 N CALCIUM (test code = CA) 9.2 mg/dL 8.7-10.4 N [id number] 12:45:00* Test Item Value Reference Range Interpretation Comme nts PHOSPHOROUS (test code = PHOS) 3.5 mg/dL 2.4-5.1 [id number] 12:45:00* Test Item Value Reference Range Interpretation Comme nts MAGNESIUM (test code = MAG) 1.8 mg/dL 1.6-2.6 N ARTERIAL BLOOD [id number] 06:28:00* Test Item Value Reference Range Interpretation Comme nts ARTERIAL BLOOD GAS PH (test code = PHA) 7.46 7.35-7.45 H ARTERIAL BLOOD GAS PCO2 (test code = PCO2A) 42.5 mmHg 35.0-45.0 N ARTERIAL BLOOD GAS PO2 (test code = PO2A) 90.1 mmHg 80.0-95.0 N BICARBONATE TOTAL HCO3 (test code = HCO3) 29.2 mmol/L 22.0-24.0 H BASE EXCESS (test code = UZIEL) 4.8 mmol/L See_Comment H [Automated message] The system which generated this result transmitted reference range: (+/-)2.0. The reference range was not used to interpret this result as normal/abnormal. ABG O2 SATURATION (test code = SATA) 96.5 % 95.0-100.0 N ABG TYPE (test code = TYPEA) Arterial ARTERIAL FIO2 (test code = FIO2A) 50.0 % ABG VENT MODE (test code = MODEA) Ventilator ALLENS TEST (test code = ALLENS) NOT APPLICABLE TOTAL HGB (test code = THB) 12.7 g/dL 13.0-17.0 L METHEMOGLOBIN (test code = METHGB) <0.8 % 0-1.5 N TCO2 ARTERIAL (test code = TCO2A) 30.5 MMOL/L 24-30 H BASIC METABOLIC [id number] 03:24:00* Test Item Value Reference Range Interpretation Comme nts SODIUM (test code = NA) 136 mmol/L 136-145 N POTASSIUM (test code = K) 3.9 mmol/L 3.5-5.1 N CHLORIDE (test code = CL) 98 mmol/l 98-107 N CARBON DIOXIDE (test code = CO2) 27 mmol/L 20-31 N GLUCOSE (test code = GLU) 124 mg/dL 74-106 H BLOOD UREA NITROGEN (test code = BUN) 18 mg/dL 9-23 N GLOMERULAR FILTRATION RATE (test code = GFR) >=60 max estimate mL/min >60 The Glomerular Filtration Rate is a calculated parameterbased on serum Creatinine, patient age and sex. GFR valuesless than 60 mL/min/1.73 square meters are indicative ofChronic Kidney Disease. Values less than 15 mL/min/1.73square meters indicate Kidney failure. The calculation forGFR is based on the CKD-EPI (202) calculation. This formulais race indifferent and is the recommended formula for GFRby the National Kidney Foundation for Adults.The GFR will not calculate if the sex is unknown or if thepatient's age is <18 years. CREATININE (test code = CREAT) 1.10 mg/dL 0.70-1.30 N CALCIUM (test code = CA) 9.4 mg/dL 8.7-10.4 [id number] 03:24:00* Test Item Value Reference Range Interpretation Comme nts PHOSPHOROUS (test code = PHOS) 5.0 mg/dL 2.4-5.1 [id number] 03:24:00* Test Item Value Reference Range Interpretation Comme nts MAGNESIUM (test code = MAG) 2.0 mg/dL 1.6-2.6 N CBC W/AUTO [id number] 03:04:00* Test Item Value Reference Range Interpretation Comme nts WHITE BLOOD CELL (test code = WBC) 6.9 x10 3/uL 4.8-10.8 N RED BLOOD CELL (test code = RBC) 3.75 x10 6/uL 4.70-6.10 L HEMOGLOBIN (test code = HGB) 11.5 g/dL 14.0-18.0 L HEMATOCRIT (test code = HCT) 34.3 % 42.0-52.0 L MEAN CELL VOLUME (test code = MCV) 91.5 fL 80.0-94.0 N MEAN CELL HGB (test code = MCH) 30.7 pg 27-31 N MEAN CELL HGB CONCENTRATION (test code = MCHC) 33.5 G/DL 33-36.5 N RED CELL DISTRIBUTION WIDTH (test code = RDW) 16.4 % 12.9-16.9 N PLATELET COUNT (test code = PLT) 188 x10 3/uL 150-440 N MEAN PLATELET VOLUME (test c ode = MPV) 9.7 fL 8.9-12.4 N NEUTROPHIL % (test code = NT%) 77.3 % 42.2-75.2 H LYMPHOCYTE % (test code = LY%) 13.0 % 20.5-51.1 L MONOCYTE % (test code = MO%) 9.2 % 1.7-9.3 N EOSINOPHIL % (test code = EO%) 0.0 % 0.0-7.0 N BASOPHIL % (test code = BA%) 0.1 % 0-2.5 N NEUTROPHIL # (test code = NT#) 5.36 x10 3/uL 1.80-7.70 N LYMPHOCYTE # (test code = LY#) 0.90 x10 3/uL 1.00-4.80 L MONOCYTE # (test code = MO#) 0.64 x10 3/uL 0.00-0.80 N EOSINOPHIL # (test code = EO#) 0.00 x10 3/uL 0.00-0.45 N BASOPHIL # (test code = BA#) 0.01 x10 3/uL 0.0-0.20 N BLOOD GAS [id number] 00:26:00* Test Item Value Reference Range Interpretation Comme nts ARTERIAL BLOOD GAS PH (test code = PHA) 7.46 7.35-7.45 H ARTERIAL BLOOD GAS PCO2 (test code = PCO2A) 39.1 mmHg 35.0-45.0 N ARTERIAL BLOOD GAS PO2 (test code = PO2A) 88.8 mmHg 80.0-95.0 N BICARBONATE TOTAL HCO3 (test code = HCO3) 27.4 mmol/L 22.0-24.0 H BASE EXCESS (test code = UZIEL) 3.5 mmol/L See_Comment H [Automated message] The system which generated this result transmitted reference range: (+/-)2.0. The reference range was not used to interpret this result as normal/abnormal. ABG O2 SATURATION (test code = SATA) 97.7 % 95.0-100.0 N ARTERIAL FIO2 (test code = FIO2A) 50.0 % ABG VENT MODE (test code = MODEA) Ventilator ALLENS TEST (test code = ALLENS) NOT APPLICABLE SODIUM (POC) (test code = NA/ABG) 135 mmol/L 135-147 N POTASSIUM (POC) (test code = K/ABG) 3.98 mmol/L 3.6-5.2 N CHLORIDE (ARTERIAL) (test code = CL/ABG) 96 mmol/L 98-108 L GLUCOSE (test code = GLU/ABG) 130 mg/dL 70-104 H IONIZED CALCIUM (test code = CAIABG) 1.18 mmol/L 1.12-1.32 N POC LACTIC ACID (test code = POCLAC) 1.62 mmol/L 0.5-2.2 N TOTAL HGB (test code = THB) 13.1 g/dL 13.0-17.0 N OXYHEMOGLOBIN (test code = OOHGBT) 97.1 % 92.0-98.0 N CARBOXYHEMOGLOBIN (test code = HOHGBT) 0.5 % 0-5.0 N METHEMOGLOBIN (test code = METHGB) <0.8 % 0-1.5 N HHb (test code = HHB) 2.3 % TCO2 ARTERIAL (test code = TCO2A) 28.6 MMOL/L 24-[id number] 17:19:00* Test Item Value Reference Range Interpretation Comme nts FLUID SOURCE (test code = SOURCEFL) BRONCHIAL LAVARGE FLUID COLOR (test code = COLFL) BLOODY COLORLESS A FLUID APPEARANCE (test code = APPFL) HAZY CLEAR A FLUID VOLUME (test code = VOLFL) 18 mL FLUID WBC (test code = WBCFL) 290 /uL 0-5 H FLUID RBC (test code = RBCFL) 6000 /uL <1000 FLUID LYMPHOCYTE (test code = LYMPHFL) 50 % 0-50 N BF PATHOLOGIST REVIEW (test code = PATHREVBF) FEW ATYPICAL JAYCEE LS IDENTIFIED SUGGEST CORRELATION WITH CYTOLOGIC REVIEW AND/OR BIOPSYTO EXCLUDE MALIGNANCY BACKGROUND OF BLOODY FLUID FLUID WITH LYMPHOCYTES, MONCUTESAND NEUTROPHILS REVIEWED BY JOAN MINAYA MD 12/31/2023 FLUID POLYNUCLEAR (test code = POLYFL) 11 % 0-6 H FLUID MONONUCLEAR CELLS (test code = MONOFL) 39 % 50-100 L B-TYPE NATRIURETIC [id number] 15:46:00* Test Item Value Reference Range Interpretation Comme nts B-TYPE NATRIURETIC PEPTIDE ( test code = BNP) 409 pg/mL <100 H COMPREHENSIVE METABOLIC [id number] 15:27:00* Test Item Value Reference Range Interpretation Comme nts SODIUM (test code = NA) 138 mmol/L 136-145 N POTASSIUM (test code = K) 3.5 mmol/L 3.5-5.1 N CHLORIDE (test code = CL) 99 mmol/l 98-107 N CARBON DIOXIDE (test code = CO2) 31 mmol/L 20-31 N GLUCOSE (test code = GLU) 105 mg/dL 74-106 N BLOOD UREA NITROGEN (test code = BUN) 14 mg/dL 9-23 N GLOMERULAR FILTRATION RATE (test code = GFR) >=60 max estimate mL/min >60 The Glomerular Filtration Rate is a calculated parameterbased on serum Creatinine, patient age and sex. GFR valuesless than 60 mL/min/1.73 square meters are indicative ofChronic Kidney Disease. Values less than 15 mL/min/1.73square meters indicate Kidney failure. The calculation forGFR is based on the CKD-EPI (2020) calculation. This formulais race indifferent and is the recommended formula for GFRby the National Kidney Foundation for Adults.The GFR will not calculate if the sex is unknown or if thepatient's age is <18 years. CREATININE (test code = CREAT) 1.00 mg/dL 0.70-1.30 N TOTAL PROTEIN (test code = PROT) 6.0 g/dL 5.7-8.2 N ALBUMIN (test code = ALB) 3.6 g/dL 3.2-4.8 N CALCIUM (test code = CA) 8.3 mg/dL 8.7-10.4 L BILIRUBIN TOTAL (test code = BILT) 0.7 mg/dL 0.3-1.2 N SGOT/AST (test code = AST) 49 U/L <34 H SGPT/ALT (test code = ALT) 48 U/L 10-49 N ALKALINE PHOSPHATASE (test code = ALKP) 105.0 U/L 46-116 N [id number] 15:27:00* Test Item Value Reference Range Interpretation Comme nts PHOSPHOROUS (test code = PHOS) 2.7 mg/dL 2.4-5.1 N LACTIC DEHYDROGENASE(LDH)[id number] 15:27:00* Test Item Value Reference Range Interpretation Comme nts LACTIC DEHYDROGENASE(LDH) (t est code = LDH) 236 U/L 120-246 N [id number] 15:27:00* Test Item Value Reference Range Interpretation Comme nts MAGNESIUM (test code = MAG) 2.1 mg/dL 1.6-2.6 N LACTIC [id number] 15:27:00* Test Item Value Reference Range Interpretation Comme [facility] LACTIC ACID (test code = LACT) 1.20 mmol/L 0.5-2.0 N COVID 19 Asymptomatic IH [id number] 15:27:00* Test Item Value Reference Range Interpretation Comme [facility] COVID 19 Asymptomatic IH AG (test code = COVNONPUIAG) NEGATIVE NEGATIVE Negative results , from patients with symptom onset beyondfive days, should be treated as presumptive and confirmationwith a molecular assay, if necessary for patientmanagement, may be performed. Negative results do not ruleout COVID-19 and should not be used as the sole basis fortreatment or patient management decisions, includinginfection control decisions. Negative results should beconsidered in the context of a patient's recent exposures,history and the presence of clinical signs and symptomsconsistent with COVID-19. PROTHROMBIN [id number] 15:24:00* Test Item Value Reference Range Interpretation Comme [facility] PROTHROMBIN TIME PATIENT (test code = PTP) 13.4 SECONDS 10.3-12.9 H INTERNATIONAL NORMAL RATIO (test code = INR) 1.20 0.9-1.11 H INR goals are individualized based on patient specificfactors. The following are only general guidelines: Indications: INR Goal:1. Treatment of venous thromboembolism and 2.0 - 3.0 systemic anticoagulation in a variety of conditions, including atrial fibrillation and mechanical heart valves 2. Mechanical mitral and tricuspid valves, 2.5 - 3.5 systemic anticoagulation for high-risk conditions Spec Comments: NEWTHROMBOPLASTIN TIME [id number] 15:24:00* Test Item Value Reference Range Interpretation [facility] THROMBOPLASTIN TIME PARTIAL (test code = PTT) 29.6 secs 23.8-34.8 N INTERPRETATIVE D EDGARD: Therapeutic range: Unfractionated Heparin: 60-90 seconds Argatroban: 60-90 seconds Spec Comments: [id number] 15:24:00* Test Item Value Reference Range Interpretation Comme [facility] FIBRINOGEN (test code = FIB) 809 mg/dL 200-400 H Spec Comments: NEWCBC W/AUTO [id number] 15:08:00* Test Item Value Reference Range Interpretation Comme [facility] WHITE BLOOD CELL (test code = WBC) 5.8 x10 3/uL 4.8-10.8 N RED BLOOD CELL (test code = RBC) 3.52 x10 6/uL 4.70-6.10 L HEMOGLOBIN (test code = HGB) 10.9 g/dL 14.0-18.0 L HEMATOCRIT (test code = HCT) 32.2 % 42.0-52.0 L MEAN CELL VOLUME (test code = MCV) 91.5 fL 80.0-94.0 N MEAN CELL HGB (test code = MCH) 31.0 pg 27-31 N MEAN CELL HGB CONCENTRATION (test code = MCHC) 33.9 G/DL 33-36.5 N RED CELL DISTRIBUTION WIDTH (test code = RDW) 16.7 % 12.9-16.9 N PLATELET COUNT (test code = PLT) 189 x10 3/uL 150-440 N MEAN PLATELET VOLUME (test c ode = MPV) 9.3 fL 8.9-12.4 N NEUTROPHIL % (test code = NT%) 91.6 % 42.2-75.2 H LYMPHOCYTE % (test code = LY%) 6.0 % 20.5-51.1 L MONOCYTE % (test code = MO%) 2.1 % 1.7-9.3 N EOSINOPHIL % (test code = EO%) 0.0 % 0.0-7.0 N BASOPHIL % (test code = BA%) 0.0 % 0-2.5 N NEUTROPHIL # (test code = NT#) 5.31 x10 3/uL 1.80-7.70 N LYMPHOCYTE # (test code = LY#) 0.35 x10 3/uL 1.00-4.80 L MONOCYTE # (test code = MO#) 0.12 x10 3/uL 0.00-0.80 N EOSINOPHIL # (test code = EO#) 0.00 x10 3/uL 0.00-0.45 N BASOPHIL # (test code = BA#) 0.00 x10 3/uL 0.0-0.20 N LACTIC [id number] 12:08:00* Test Item Value Reference Range Interpretation Comme nts LACTIC ACID (test code = LACT) 1.3 mmol/L 0.5-2.2 N [id number] 07:55:00* Test Item Value Reference Range Interpretation Comme nts POTASSIUM (test code = K) 3.6 mmol/L 3.5-5.1 [id number] 06:50:00* Test Item Value Reference Range Interpretation Comme nts D-DIMER (test code = DDIMER) 3335 ng/mLFEU 0-500 H Note: New Refere nce RangeD-Dimer results are reported in ng/mL. These unitscorrespond to ng/mL Fibrinogen Equivalent Units (FEU). TheD-dimer cut-off value is the same as the normal referencerange.A negative D-dimer result when combined with a clinicalassessment of low pretest probability has been shown to havea high negative predictive value for deep vein thrombosis(DVT) and pulmonary embolism (PE). Elevated levels ofD-Dimer are found in clinical conditions such as DVT, PE,and disseminated intravascular coagulation (DIC). BASIC METABOLIC [id number] 06:24:00* Test Item Value Reference Range Interpretation Comme nts SODIUM (test code = NA) 133 mmol/L 136-145 L POTASSIUM (test code = K) 5.9 mmol/L 3.5-5.1 H CHLORIDE (test code = CL) 96 mmol/L 98-107 L CARBON DIOXIDE (test code = CO2) 32 mmol/L 20-31 H ANION GAP (test code = GAP) 10.9 2.0-16.0 N GLUCOSE (test code = GLU) 95 mg/dL 74-106 N BLOOD UREA NITROGEN (test code = BUN) 14 mg/dL 9-23 N GLOMERULAR FILTRATION RATE (test code = GFR) >=60 max estimate ml/min The Glomerular Filtration Rate is a calculated parameterbased on serum Creatinine, patient age and sex. GFR valuesless than 60 mL/min/1.73 square meters are indicative ofChronic Kidney Disease. Values less than 15 mL/min/1.73square meters indicate Kidney failure. The calculation forGFR is based on the CKD-EPI (2020) calculation. This formulais race indifferent and is the recommended formula for GFRby the National Kidney Foundation for Adults.The GFR will not calculate if the sex is unknown or if thepatient's age is <18 years. CREATININE (test code = CREAT) 1.2 mg/dL 0.7-1.3 N BUN/CREATININE RATIO (test code = BUN/CREA) 11.7 12.0-20.0 L CALCIUM (test code = CA) 8.3 mg/dL 8.7-10.4 L [id number] 06:24:00* Test Item Value Reference Range Interpretation Comme nts PHOSPHOROUS (test code = PHOS) 2.1 mg/dL 2.4-5.1 L [id number] 06:24:00* Test Item Value Reference Range Interpretation Comme nts MAGNESIUM (test code = MAG) 1.7 mg/dL 1.6-2.6 N TROP-I HIGH [id number] 06:24:00* Test Item Value Reference Range Interpretation Comme nts TROP-I HIGH SENSITIVITY (test code = TROPIHS) 155 pg/mL 0-78 HH Critical Value reported toFirst Name:KIERSTEN Last Name:ROSS 3/4ID:[id number] READ BACK AND VERIFIEDby [id number], on 12/31/23, @ 0624.CAUTION: Units of the current test methodology (pg/mL) differ from the prior test methodology (ng/mL) by a factor of 1000. POSITIVE TROPONIN HS IS IDENTIFIED THE FOLLOWING MALE > OR = 78 pg/mL FEMALE > OR = 53 pg/mL ALL CRITICAL TROPI HS HAVE BEEN IDENTIFIED MALE OR FEMALE > OR = 120 pg/mL LACTIC [id number] 06:24:00* Test Item Value Reference Range Interpretation Comme nts LACTIC ACID (test code = LACT) 2.1 mmol/L 0.5-2.2 N Elevated Lactate reported to the following Caregiver:Full Name/Title: KIERSTEN HAWKINS [id number], on 12/31/23, @ 0624 CBC W/AUTO [id number] 06:09:00* Test Item Value Reference Range Interpretation Comme nts WHITE BLOOD CELL (test code = WBC) 8.0 10 3/uL 4.5-11.0 N RED BLOOD CELL (test code = RBC) 3.70 10 6/uL 4.30-5.90 L HEMOGLOBIN (test code = HGB) 11.5 g/dL 14.0-18.0 L HEMATOCRIT (test code = HCT) 34.7 % 40.0-55.0 L MEAN CELL VOLUME (test code = MCV) 94 fL 81-102 MEAN CELL HGB (test code = MCH) 31.1 pg 26.0-34.0 N MEAN CELL HGB CONCENTRATION (test code = MCHC) 33.1 g/dL 31.0-37.0 N RED CELL DISTRIBUTION WIDTH (test code = RDW) 17.0 % 11.6-14.4 H PLATELET COUNT (test code = PLT) 205 10 3/uL 150-400 N MEAN PLATELET VOLUME (test code = MPV) 10.1 fL 9.0-12.6 N NEUTROPHIL % (test code = NT%) 75.4 % 33.0-76.0 N IMMATURE GRANULOCYTE % (test code = IG%) 0.8 % 0.0-1.0 N LYMPHOCYTE % (test code = LY%) 12.9 % 14.0-56.4 L MONOCYTE % (test code = MO%) 10.0 % 0.0-12.9 N EOSINOPHIL % (test code = EO%) 0.5 % 0.0-7.0 N BASOPHIL % (test code = BA%) 0.4 % 0-2.0 N NUCLEATED RBC % (test code = NRBC%) 0.0 % 0-0.2 N NEUTROPHIL # (test code = NT#) 6.02 10 3/uL 1.5-7.0 N IMMATURE GRANULOCYTE # (test code = IG#) 0.060 x10 3/uL 0.000-0.100 N LYMPHOCYTE # (test code = LY#) 1.03 10 3/uL 1.50-4.00 L MONOCYTE # (test code = MO#) 0.80 10 3/uL 0.20-0.80 N EOSINOPHIL # (test code = EO#) 0.04 10 3/uL 0.0-0.5 N BASOPHIL # (test code = BA#) 0.03 10 3/uL 0.0-0.1 N NUCLEATED RBC # (test code = NRBC#) 0.000 10 3/uL 0.000-0.012 N ARTERIAL BLOOD [id number] 03:45:00* Test Item Value Reference Range Interpretation Comme nts ARTERIAL BLOOD GAS PH (test code = PHA) 7.491 7.35-7.45 H ARTERIAL BLOOD GAS PCO2 (kristina t code = PCO2A) 37.6 mmHg 35.0-45.0 N ARTERIAL BLOOD GAS PO2 (test code = PO2A) 276.5 mmHg 80.0-100.0 H BICARBONATE TOTAL HCO3 (test code = HCO3) 28.1 mmol/L 22.0-26.0 H BASE EXCESS (test code = UZIEL) 4.6 mmol/L 0.0-2.0 H ABG O2 SATURATION (test code = SATA) 99.8 % 94.0-98.0 H ABG TYPE (test code = TYPEA) Arterial ARTERIAL FIO2 (test code = FIO2A) 100.0 % ABG VENT MODE (test code = MODEA) AC ABG TIDAL VOLUME (test code = TIDAL VOLUME) 480 cc ABG PEEP (test code = PEEP) 10.0 cmH2O ALLENS TEST (test code = ALLENS) Yes TOTAL HGB (test code = THB) 12.4 g/dL 13.0-17.0 L OXYHEMOGLOBIN (test code = OOHGBT) 99.2 % 92.0-98.0 H CARBOXYHEMOGLOBIN (test code = HOHGBT) 0.3 % 0-5.0 N METHEMOGLOBIN (test code = METHGB) <0.8 % 0-1.5 N TCO2 ARTERIAL (test code = TCO2A) 29.2 mL/dL 15-23 H PaO2/[id number] 03:45:00* Test Item Value Reference Range Interpretation Comme nts PaO2/FiO2 (test code = [id number]) 276.50 >200 TROP-I HIGH [id number] 00:48:00* Test Item Value Reference Range Interpretation Comme nts TROP-I HIGH SENSITIVITY (test code = TROPIHS) 200 pg/mL 0-78 HH Critical Value reported toFirst Name:KIERSTEN Last Name:ROSS 4ID:[id number] READ BACK AND VERIFIEDby [id number], on 12/31/23, @ 1306.CAUTION: Units of the current test methodology (pg/mL) differ from the prior test methodology (ng/mL) by a factor of 1000. POSITIVE TROPONIN HS IS IDENTIFIED THE FOLLOWING MALE > OR = 78 pg/mL FEMALE > OR = 53 pg/mL ALL CRITICAL TROPI HS HAVE BEEN IDENTIFIED MALE OR FEMALE > OR = 120 pg/mL COMPREHENSIVE METABOLIC [id number] 19:19:00* Test Item Value Reference Range Interpretation Comme nts SODIUM (test code = NA) 133 mmol/L 136-145 L POTASSIUM (test code = K) 3.7 mmol/L 3.5-5.1 N CHLORIDE (test code = CL) 95 mmol/L 98-107 L CARBON DIOXIDE (test code = CO2) 29 mmol/L 20-31 N ANION GAP (test code = GAP) 12.7 2.0-16.0 N GLUCOSE (test code = GLU) 110 mg/dL 74-106 H BLOOD UREA NITROGEN (test code = BUN) 12 mg/dL 9-23 N GLOMERULAR FILTRATION RATE (test code = GFR) >=60 max estimate ml/min The Glomerular Filtration Rate is a calculated parameterbased on serum Creatinine, patient age and sex. GFR valuesless than 60 mL/min/1.73 square meters are indicative ofChronic Kidney Disease. Values less than 15 mL/min/1.73square meters indicate Kidney failure. The calculation forGFR is based on the CKD-EPI (2020) calculation. This formulais race indifferent and is the recommended formula for GFRby the National Kidney Foundation for Adults.The GFR will not calculate if the sex is unknown or if thepatient's age is <18 years. CREATININE (test code = CREAT) 1.1 mg/dL 0.7-1.3 N BUN/CREATININE RATIO (test code = BUN/CREA) 10.9 12.0-20.0 L TOTAL PROTEIN (test code = PROT) 6.9 g/dL 5.7-8.2 N ALBUMIN (test code = ALB) 4.0 g/dL 3.4-5.0 N CALCIUM (test code = CA) 8.7 mg/dL 8.7-10.4 N BILIRUBIN TOTAL (test code = BILT) 0.8 mg/dL 0.2-1.1 N SGOT/AST (test code = AST) 166 U/L <34 H SGPT/ALT (test code = ALT) 79 U/L 10-49 H ALKALINE PHOSPHATASE (test code = ALKP) 146 U/L 46-116 H [id number] 19:19:00* Test Item Value Reference Range Interpretation Comme nts MAGNESIUM (test code = MAG) 1.8 mg/dL 1.6-2.6 N TROP-I HIGH [id number] 19:19:00* Test Item Value Reference Range Interpretation Comme nts TROP-I HIGH SENSITIVITY (test code = TROPIHS) 207 pg/mL 0-78 HH Critical Value reported toFirst Name:KENDAL Last Name:GERALDINE 4ID:[id number] READ BACK AND VERIFIEDby MANISH, on 12/30/23, @ 0818.CAUTION: Units of the current test methodology (pg/mL) differ from the prior test methodology (ng/mL) by a factor of 1000. POSITIVE TROPONIN HS IS IDENTIFIED THE FOLLOWING MALE > OR = 78 pg/mL FEMALE > OR = 53 pg/mL ALL CRITICAL TROPI HS HAVE BEEN IDENTIFIED MALE OR FEMALE > OR = 120 pg/mL CBC W/AUTO [id number] 18:55:00* Test Item Value Reference Range Interpretation Comme nts WHITE BLOOD CELL (test code = WBC) 11.1 10 3/uL 4.5-11.0 H RED BLOOD CELL (test code = RBC) 3.97 10 6/uL 4.30-5.90 L HEMOGLOBIN (test code = HGB) 12.8 g/dL 14.0-18.0 L HEMATOCRIT (test code = HCT) 35.7 % 40.0-55.0 L MEAN CELL VOLUME (test code = MCV) 90 fL 81-102 N MEAN CELL HGB (test code = MCH) 32.2 pg 26.0-34.0 N MEAN CELL HGB CONCENTRATION (test code = MCHC) 35.9 g/dL 31.0-37.0 N RED CELL DISTRIBUTION WIDTH (test code = RDW) 16.4 % 11.6-14.4 H PLATELET COUNT (test code = PLT) 238 10 3/uL 150-400 N MEAN PLATELET VOLUME (test code = MPV) 10.3 fL 9.0-12.6 N NEUTROPHIL % (test code = NT%) 83.4 % 33.0-76.0 H IMMATURE GRANULOCYTE % (test code = IG%) 1.0 % 0.0-1.0 N LYMPHOCYTE % (test code = LY%) 5.9 % 14.0-56.4 L MONOCYTE % (test code = MO%) 9.5 % 0.0-12.9 N EOSINOPHIL % (test code = EO%) 0.0 % 0.0-7.0 N BASOPHIL % (test code = BA%) 0.2 % 0-2.0 N NUCLEATED RBC % (test code = NRBC%) 0.0 % 0-0.2 N NEUTROPHIL # (test code = NT#) 9.23 10 3/uL 1.5-7.0 H IMMATURE GRANULOCYTE # (test code = IG#) 0.110 x10 3/uL 0.000-0.100 H LYMPHOCYTE # (test code = LY#) 0.65 10 3/uL 1.50-4.00 L MONOCYTE # (test code = MO#) 1.05 10 3/uL 0.20-0.80 H EOSINOPHIL # (test code = EO#) 0.00 10 3/uL 0.0-0.5 N BASOPHIL # (test code = BA#) 0.02 10 3/uL 0.0-0.1 N NUCLEATED RBC # (test code = NRBC#) 0.000 10 3/uL 0.000-0.012 N LACTIC [id number] 18:20:00* Test Item Value Reference Range Interpretation Comme nts LACTIC ACID (test code = LACT) 2.5 mmol/L 0.5-2.2 H Elevated Lactate reported to the following Caregiver:Full Name/Title: LAITH MALAIKA/Wander GRANT, on 12/30/23, @ 3415 [id number] 17:41:00* Test Item Value Reference Range Interpretation Comme nts GLUBED (test code = GLUBED) 150 mg/dL 70-105 H Intravenous admi nistration of N-acetylcysteine which resultsin blood concentrations >5 mg/dL will cause overestimationof blood glucose results. Do not use during intravenousinfusion of N'acetylcysteine. [id number] 15:16:00* Test Item Value Reference Range Interpretation Comme nts GLUBED (test code = GLUBED) 113 mg/dL 70-105 H Intravenous admi nistration of N-acetylcysteine which resultsin blood concentrations >5 mg/dL will cause overestimationof blood glucose results. Do not use during intravenousinfusion of N'acetylcysteine. COMPREHENSIVE METABOLIC [id number] 05:10:00* Test Item Value Reference Range Interpretation Comme nts SODIUM (test code = NA) 133 mmol/L 136-145 L POTASSIUM (test code = K) 3.4 mmol/L 3.5-5.1 L CHLORIDE (test code = CL) 96 mmol/L 98-107 L CARBON DIOXIDE (test code = CO2) 30 mmol/L 20-31 N ANION GAP (test code = GAP) 10.4 2.0-16.0 N GLUCOSE (test code = GLU) 100 mg/dL 74-106 N BLOOD UREA NITROGEN (test code = BUN) 10 mg/dL 9-23 N GLOMERULAR FILTRATION RATE (test code = GFR) >=60 max estimate ml/min The Glomerular Filtration Rate is a calculated parameterbased on serum Creatinine, patient age and sex. GFR valuesless than 60 mL/min/1.73 square meters are indicative ofChronic Kidney Disease. Values less than 15 mL/min/1.73square meters indicate Kidney failure. The calculation forGFR is based on the CKD-EPI (2020) calculation. This formulais race indifferent and is the recommended formula for GFRby the National Kidney Foundation for Adults.The GFR will not calculate if the sex is unknown or if thepatient's age is <18 years. CREATININE (test code = CREAT) 0.9 mg/dL 0.7-1.3 N BUN/CREATININE RATIO (test code = BUN/CREA) 11.1 12.0-20.0 L TOTAL PROTEIN (test code = PROT) 6.6 g/dL 5.7-8.2 N ALBUMIN (test code = ALB) 4.0 g/dL 3.4-5.0 N CALCIUM (test code = CA) 9.0 mg/dL 8.7-10.4 N BILIRUBIN TOTAL (test code = BILT) 0.9 mg/dL 0.2-1.1 N SGOT/AST (test code = AST) 24 U/L <34 SGPT/ALT (test code = ALT) 15 U/L 10-49 N ALKALINE PHOSPHATASE (test code = ALKP) 86 U/L 46-116 N [id number] 05:10:00* Test Item Value Reference Range Interpretation Comme nts MAGNESIUM (test code = MAG) 1.8 mg/dL 1.6-2.6 N CBC W/AUTO [id number] 04:21:00* Test Item Value Reference Range Interpretation Comme nts WHITE BLOOD CELL (test code = WBC) 9.2 10 3/uL 4.5-11.0 N RED BLOOD CELL (test code = RBC) 3.71 10 6/uL 4.30-5.90 L HEMOGLOBIN (test code = HGB) 11.7 g/dL 14.0-18.0 L HEMATOCRIT (test code = HCT) 33.4 % 40.0-55.0 L MEAN CELL VOLUME (test code = MCV) 90 fL 81-102 N MEAN CELL HGB (test code = MCH) 31.5 pg 26.0-34.0 N MEAN CELL HGB CONCENTRATION (test code = MCHC) 35.0 g/dL 31.0-37.0 N RED CELL DISTRIBUTION WIDTH (test code = RDW) 16.4 % 11.6-14.4 H PLATELET COUNT (test code = PLT) 182 10 3/uL 150-400 N MEAN PLATELET VOLUME (test code = MPV) 9.5 fL 9.0-12.6 N NEUTROPHIL % (test code = NT%) 79.2 % 33.0-76.0 H IMMATURE GRANULOCYTE % (test code = IG%) 0.5 % 0.0-1.0 N LYMPHOCYTE % (test code = LY%) 12.8 % 14.0-56.4 L MONOCYTE % (test code = MO%) 6.4 % 0.0-12.9 N EOSINOPHIL % (test code = EO%) 0.8 % 0.0-7.0 N BASOPHIL % (test code = BA%) 0.3 % 0-2.0 N NUCLEATED RBC % (test code = NRBC%) 0.0 % 0-0.2 N NEUTROPHIL # (test code = NT#) 7.24 10 3/uL 1.5-7.0 H IMMATURE GRANULOCYTE # (test code = IG#) 0.050 x10 3/uL 0.000-0.100 N LYMPHOCYTE # (test code = LY#) 1.17 10 3/uL 1.50-4.00 L MONOCYTE # (test code = MO#) 0.59 10 3/uL 0.20-0.80 N EOSINOPHIL # (test code = EO#) 0.07 10 3/uL 0.0-0.5 N BASOPHIL # (test code = BA#) 0.03 10 3/uL 0.0-0.1 N NUCLEATED RBC # (test code = NRBC#) 0.000 10 3/uL 0.000-0.012 N OSMOLALITY [id number] 19:56:00* Test Item Value Reference Range Interpretation Comme nts OSMOLALITY SERUM (test code = OSMO) 272 280-301 L INFCE Result Uni ts: mOsmol/kgPerformed At: [facility] [address] [id number] Mann MD Ph:[phone] UR OSMOLALITY [id number] 19:56:00* Test Item Value Reference Range Interpretation Comme nts UR OSMOLALITY RANDOM (test code = OSMOU) 369 See_Comment INFCE Result Units: mOsmol/kg 24 hr : 300 - 900 Random: 50 - 1400 After 12hr fluid restriction: >850Performed At: [facility] [address] [id number] Mann MD Ph:[phone] [Automated message] The system which generated this result transmitted reference range: (). The reference range was not used to interpret this result as normal/abnormal. COMPREHENSIVE METABOLIC [id number] 02:45:00* Test Item Value Reference Range Interpretation Comme nts TOTAL PROTEIN (test code = PROT) 5.9 g/dL 5.7-8.2 N ALBUMIN (test code = ALB) 3.4 g/dL 3.4-5.0 N BILIRUBIN TOTAL (test code = BILT) 0.7 mg/dL 0.2-1.1 N SGOT/AST (test code = AST) 21 U/L <34 SGPT/ALT (test code = ALT) 13 U/L 10-49 N ALKALINE PHOSPHATASE (test code = ALKP) 61 U/L 46-116 N SODIUM (test code = NA) 132 mmol/L 136-145 L POTASSIUM (test code = K) 3.6 mmol/L 3.5-5.1 N CHLORIDE (test code = CL) 98 mmol/L 98-107 N CARBON DIOXIDE (test code = CO2) 27 mmol/L 20-31 N ANION GAP (test code = GAP) 10.6 2.0-16.0 N GLUCOSE (test code = GLU) 87 mg/dL 74-106 N BLOOD UREA NITROGEN (test code = BUN) 7 mg/dL 9-23 L GLOMERULAR FILTRATION RATE (test code = GFR) >=60 max estimate ml/min The Glomerular Filtration Rate is a calculated parameterbased on serum Creatinine, patient age and sex. GFR valuesless than 60 mL/min/1.73 square meters are indicative ofChronic Kidney Disease. Values less than 15 mL/min/1.73square meters indicate Kidney failure. The calculation forGFR is based on the CKD-EPI (2020) calculation. This formulais race indifferent and is the recommended formula for GFRby the National Kidney Foundation for Adults.The GFR will not calculate if the sex is unknown or if thepatient's age is <18 years. CREATININE (test code = CREAT) 0.7 mg/dL 0.7-1.3 N BUN/CREATININE RATIO (test code = BUN/CREA) 10.0 12.0-20.0 L CALCIUM (test code = CA) 8.2 mg/dL 8.7-10.4 L [id number] 02:45:00* Test Item Value Reference Range Interpretation Comme nts PHOSPHOROUS (test code = PHOS) 2.5 mg/dL 2.4-5.1 N [id number] 02:45:00* Test Item Value Reference Range Interpretation Comme nts MAGNESIUM (test code = MAG) 1.6 mg/dL 1.6-2.6 N CBC W/AUTO [id number] 02:43:00* Test Item Value Reference Range Interpretation Comme nts WHITE BLOOD CELL (test code = WBC) 7.2 10 3/uL 4.5-11.0 N RED BLOOD CELL (test code = RBC) 3.48 10 6/uL 4.30-5.90 L HEMOGLOBIN (test code = HGB) 11.0 g/dL 14.0-18.0 L HEMATOCRIT (test code = HCT) 31.5 % 40.0-55.0 L MEAN CELL VOLUME (test code = MCV) 91 fL 81-102 N MEAN CELL HGB (test code = MCH) 31.6 pg 26.0-34.0 N MEAN CELL HGB CONCENTRATION (test code = MCHC) 34.9 g/dL 31.0-37.0 N RED CELL DISTRIBUTION WIDTH (test code = RDW) 16.2 % 11.6-14.4 H PLATELET COUNT (test code = PLT) 153 10 3/uL 150-400 N MEAN PLATELET VOLUME (test code = MPV) 9.7 fL 9.0-12.6 N NEUTROPHIL % (test code = NT%) 71.8 % 33.0-76.0 N IMMATURE GRANULOCYTE % (test code = IG%) 0.6 % 0.0-1.0 N LYMPHOCYTE % (test code = LY%) 18.3 % 14.0-56.4 N MONOCYTE % (test code = MO%) 7.3 % 0.0-12.9 N EOSINOPHIL % (test code = EO%) 1.4 % 0.0-7.0 N BASOPHIL % (test code = BA%) 0.6 % 0-2.0 N NUCLEATED RBC % (test code = NRBC%) 0.0 % 0-0.2 N NEUTROPHIL # (test code = NT#) 5.14 10 3/uL 1.5-7.0 N IMMATURE GRANULOCYTE # (test code = IG#) 0.040 x10 3/uL 0.000-0.100 N LYMPHOCYTE # (test code = LY#) 1.31 10 3/uL 1.50-4.00 L MONOCYTE # (test code = MO#) 0.52 10 3/uL 0.20-0.80 N EOSINOPHIL # (test code = EO#) 0.10 10 3/uL 0.0-0.5 N BASOPHIL # (test code = BA#) 0.04 10 3/uL 0.0-0.1 N NUCLEATED RBC # (test code = NRBC#) 0.000 10 3/uL 0.000-0.012 N BASIC METABOLIC [id number] 02:38:00* Test Item Value Reference Range Interpretation Comme nts SODIUM (test code = NA) 132 mmol/L 136-145 L POTASSIUM (test code = K) 3.6 mmol/L 3.5-5.1 N CHLORIDE (test code = CL) 98 mmol/L 98-107 N CARBON DIOXIDE (test code = CO2) mmol/L 20-31 ANION GAP (test code = GAP) 2.0-16.0 GLUCOSE (test code = GLU) mg/dL 74-106 BLOOD UREA NITROGEN (test co de = BUN) mg/dL 9-23 GLOMERULAR FILTRATION RATE ( test code = GFR) ml/min CREATININE (test code = CREAT) mg/dL 0.7-1.3 BUN/CREATININE RATIO (test c ode = BUN/CREA) 12.0-20.0 CALCIUM (test code = CA) mg/dL 8.7-10.4 ARTERIAL BLOOD [id number] 16:00:00* Test Item Value Reference Range Interpretation Comme nts ARTERIAL BLOOD GAS PH (test code = PHA) 7.462 7.35-7.45 H ARTERIAL BLOOD GAS PCO2 (kristina t code = PCO2A) 42.9 mmHg 35.0-45.0 N ARTERIAL BLOOD GAS PO2 (test code = PO2A) 178.7 mmHg 80.0-100.0 H BICARBONATE TOTAL HCO3 (test code = HCO3) 30.0 mmol/L 22.0-26.0 H BASE EXCESS (test code = UZIEL) 5.6 mmol/L 0.0-2.0 H ABG O2 SATURATION (test code = SATA) 99.0 % 94.0-98.0 H ABG TYPE (test code = TYPEA) Arterial ARTERIAL FIO2 (test code = FIO2A) 68.0 % ABG L/M (test code = L/M) 12.0 ABG VENT MODE (test code = MODEA) High Flow ALLENS TEST (test code = ALLENS) Yes TOTAL HGB (test code = THB) 12.7 g/dL 13.0-17.0 L OXYHEMOGLOBIN (test code = OOHGBT) 98.4 % 92.0-98.0 H CARBOXYHEMOGLOBIN (test code = HOHGBT) 0.3 % 0-5.0 N METHEMOGLOBIN (test code = METHGB) <0.8 % 0-1.5 N TCO2 ARTERIAL (test code = TCO2A) 31.3 mL/dL 15-23 H PaO2/[id number] 16:00:00* Test Item Value Reference Range Interpretation Comme nts PaO2/FiO2 (test code = [id number]) 262.70 >200 BASIC METABOLIC [id number] 04:42:00* Test Item Value Reference Range Interpretation Comme nts SODIUM (test code = NA) 136 mmol/L 136-145 N POTASSIUM (test code = K) 4.3 mmol/L 3.5-5.1 N CHLORIDE (test code = CL) 99 mmol/L 98-107 N CARBON DIOXIDE (test code = CO2) 31 mmol/L 20-31 N ANION GAP (test code = GAP) 10.3 2.0-16.0 GLUCOSE (test code = GLU) 121 mg/dL 74-106 H BLOOD UREA NITROGEN (test code = BUN) 12 mg/dL 9-23 N GLOMERULAR FILTRATION RATE (test code = GFR) >=60 max estimate ml/min The Glomerular Filtration Rate is a calculated parameterbased on serum Creatinine, patient age and sex. GFR valuesless than 60 mL/min/1.73 square meters are indicative ofChronic Kidney Disease. Values less than 15 mL/min/1.73square meters indicate Kidney failure. The calculation forGFR is based on the CKD-EPI (2020) calculation. This formulais race indifferent and is the recommended formula for GFRby the National Kidney Foundation for Adults.The GFR will not calculate if the sex is unknown or if thepatient's age is <18 years. CREATININE (test code = CREAT) 1.2 mg/dL 0.7-1.3 N BUN/CREATININE RATIO (test code = BUN/CREA) 10.0 12.0-20.0 L CALCIUM (test code = CA) 8.4 mg/dL 8.7-10.4 L [id number] 04:42:00* Test Item Value Reference Range Interpretation Comme nts PHOSPHOROUS (test code = PHOS) 2.4 mg/dL 2.4-5.1 N [id number] 04:42:00* Test Item Value Reference Range Interpretation Comme nts MAGNESIUM (test code = MAG) 1.7 mg/dL 1.6-2.6 N ARTERIAL BLOOD [id number] 04:37:00* Test Item Value Reference Range Interpretation Comme nts ARTERIAL BLOOD GAS PH (test code = PHA) 7.443 7.35-7.45 N ARTERIAL BLOOD GAS PCO2 (kristina t code = PCO2A) 35.8 mmHg 35.0-45.0 N ARTERIAL BLOOD GAS PO2 (test code = PO2A) 264.4 mmHg 80.0-100.0 H BICARBONATE TOTAL HCO3 (test code = HCO3) 23.9 mmol/L 22.0-26.0 N BASE EXCESS (test code = UZIEL) 0.2 mmol/L 0.0-2.0 N ABG O2 SATURATION (test code = SATA) 99.9 % 94.0-98.0 H ABG TYPE (test code = TYPEA) Arterial ARTERIAL FIO2 (test code = FIO2A) 60.0 % ABG VENT MODE (test code = MODEA) AC ABG VENT RESP RATE (test cod e = RRA) 24 /MIN ABG TIDAL VOLUME (test code = TIDAL VOLUME) 400 cc ABG PEEP (test code = PEEP) 10.0 cmH2O ABG SITE (test code = SITEA) Left Radial ALLENS TEST (test code = ALLENS) Yes TOTAL HGB (test code = THB) 13.2 g/dL 13.0-17.0 N OXYHEMOGLOBIN (test code = OOHGBT) 99.3 % 92.0-98.0 H CARBOXYHEMOGLOBIN (test code = HOHGBT) 0.3 % 0-5.0 TCO2 ARTERIAL (test code = TCO2A) 25.0 mL/dL 15-23 H PaO2/[id number] 04:37:00* Test Item Value Reference Range Interpretation Comme [facility] PaO2/FiO2 (test code = [id number]) 440.60 >200 CBC W/AUTO [id number] 04:21:00* Test Item Value Reference Range Interpretation Comme [facility] WHITE BLOOD CELL (test code = WBC) 8.1 10 3/uL 4.5-11.0 N RED BLOOD CELL (test code = RBC) 4.13 10 6/uL 4.30-5.90 L HEMOGLOBIN (test code = HGB) 12.6 g/dL 14.0-18.0 L HEMATOCRIT (test code = HCT) 38.4 % 40.0-55.0 L MEAN CELL VOLUME (test code = MCV) 93 fL 81-102 N MEAN CELL HGB (test code = MCH) 30.5 pg 26.0-34.0 N MEAN CELL HGB CONCENTRATION (test code = MCHC) 32.8 g/dL 31.0-37.0 N RED CELL DISTRIBUTION WIDTH (test code = RDW) 16.3 % 11.6-14.4 H PLATELET COUNT (test code = PLT) 207 10 3/uL 150-400 N MEAN PLATELET VOLUME (test code = MPV) 10.1 fL 9.0-12.6 N NEUTROPHIL % (test code = NT%) 78.9 % 33.0-76.0 H IMMATURE GRANULOCYTE % (test code = IG%) 0.6 % 0.0-1.0 N LYMPHOCYTE % (test code = LY%) 9.8 % 14.0-56.4 L MONOCYTE % (test code = MO%) 9.6 % 0.0-12.9 N EOSINOPHIL % (test code = EO%) 0.6 % 0.0-7.0 N BASOPHIL % (test code = BA%) 0.5 % 0-2.0 N NUCLEATED RBC % (test code = NRBC%) 0.0 % 0-0.2 N NEUTROPHIL # (test code = NT#) 6.41 10 3/uL 1.5-7.0 N IMMATURE GRANULOCYTE # (test code = IG#) 0.050 x10 3/uL 0.000-0.100 N LYMPHOCYTE # (test code = LY#) 0.80 10 3/uL 1.50-4.00 L MONOCYTE # (test code = MO#) 0.78 10 3/uL 0.20-0.80 N EOSINOPHIL # (test code = EO#) 0.05 10 3/uL 0.0-0.5 N BASOPHIL # (test code = BA#) 0.04 10 3/uL 0.0-0.1 N NUCLEATED RBC # (test code = NRBC#) 0.000 10 3/uL 0.000-0.012 N UR SODIUM [id number] 18:34:00* Test Item Value Reference Range Interpretation Comme nts UR SODIUM RANDOM (test code = REJI) < 10 mmol/L NO REFERENCE V ALUES AVAILABLE FOR RANDOM URINE SODIUM UR CHLORIDE [id number] 18:34:00* Test Item Value Reference Range Interpretation Comme nts UR CHLORIDE RANDOM (test code = CLU) 33 mmol/L NO REFERENCE R COLETTE AVAILABLE FOR RANDOM URINE CHLORIDE UR CREATININE [id number] 18:34:00* Test Item Value Reference Range Interpretation Comme nts UR CREATININE RANDOM (test code = CREATU) 122 mg/dL 20-370 N NO REFERENC E RANGE AVAILABLE FOR RANDOM CREATININE BASIC METABOLIC [id number] 18:15:00* Test Item Value Reference Range Interpretation Comme nts SODIUM (test code = NA) 135 mmol/L 136-145 L POTASSIUM (test code = K) 4.1 mmol/L 3.5-5.1 CHLORIDE (test code = CL) 98 mmol/L 98-107 N CARBON DIOXIDE (test code = CO2) 26 mmol/L 20-31 N ANION GAP (test code = GAP) 15.1 2.0-16.0 GLUCOSE (test code = GLU) 100 mg/dL 74-106 N BLOOD UREA NITROGEN (test code = BUN) 14 mg/dL 9-23 N GLOMERULAR FILTRATION RATE (test code = GFR) 57 ml/min L The Glomerular Filtration Rate is a calculated parameterbased on serum Creatinine, patient age and sex. GFR valuesless than 60 mL/min/1.73 square meters are indicative ofChronic Kidney Disease. Values less than 15 mL/min/1.73square meters indicate Kidney failure. The calculation forGFR is based on the CKD-EPI (2020) calculation. This formulais race indifferent and is the recommended formula for GFRby the National Kidney Foundation for Adults.The GFR will not calculate if the sex is unknown or if thepatient's age is <18 years. CREATININE (test code = CREAT) 1.4 mg/dL 0.7-1.3 H BUN/CREATININE RATIO (test code = BUN/CREA) 10.0 12.0-20.0 L CALCIUM (test code = CA) 8.4 mg/dL 8.7-10.4 L URIC [id number] 18:15:00* Test Item Value Reference Range Interpretation Comme nts URIC ACID (test code = URIC) 9.5 mg/dL 3.7-9.2 H [id number] 17:37:00* Test Item Value Reference Range Interpretation Comme nts GLUBED (test code = GLUBED) 88 mg/dL 70-105 N Intravenous admi nistration of N-acetylcysteine which resultsin blood concentrations >5 mg/dL will cause overestimationof blood glucose results. Do not use during intravenousinfusion of N'acetylcysteine. [id number] 12:01:00* Test Item Value Reference Range Interpretation Comme nts GLUBED (test code = GLUBED) 183 mg/dL 70-105 H Intravenous admi nistration of N-acetylcysteine which resultsin blood concentrations >5 mg/dL will cause overestimationof blood glucose results. Do not use during intravenousinfusion of N'acetylcysteine. ARTERIAL BLOOD [id number] 09:16:00* Test Item Value Reference Range Interpretation Comme [facility] ARTERIAL BLOOD GAS PH (test code = PHA) 7.313 7.35-7.45 L ARTERIAL BLOOD GAS PCO2 (kristina t code = PCO2A) 50.6 mmHg 35.0-45.0 H ARTERIAL BLOOD GAS PO2 (test code = PO2A) 226.1 mmHg 80.0-100.0 H BICARBONATE TOTAL HCO3 (test code = HCO3) 25.1 mmol/L 22.0-26.0 N BASE EXCESS (test code = UZIEL) -1.8 mmol/L 0.0-2.0 L ABG O2 SATURATION (test code = SATA) 99.2 % 94.0-98.0 H ABG TYPE (test code = TYPEA) Arterial ARTERIAL FIO2 (test code = FIO2A) 80.0 % ABG VENT MODE (test code = MODEA) AC ABG VENT RESP RATE (test cod e = RRA) 20 /MIN ABG TIDAL VOLUME (test code = TIDAL VOLUME) 400 cc ABG PEEP (test code = PEEP) 12.0 cmH2O ABG SITE (test code = SITEA) Right Radial ALLENS TEST (test code = ALLENS) Yes TOTAL HGB (test code = THB) 14.7 g/dL 13.0-17.0 N OXYHEMOGLOBIN (test code = OOHGBT) 99.0 % 92.0-98.0 H CARBOXYHEMOGLOBIN (test code = HOHGBT) 0.1 % 0-5.0 TCO2 ARTERIAL (test code = TCO2A) 26.6 mL/dL 15-23 H PaO2/[id number] 09:16:00* Test Item Value Reference Range Interpretation Comme [facility] PaO2/FiO2 (test code = [id number]) 282.60 >200 B-TYPE NATRIURETIC [id number] 05:34:00* Test Item Value Reference Range Interpretation Comme [facility] B-TYPE NATRIURETIC PEPTIDE ( test code = BNP) 399 pg/mL 0-100 H HGBA1C - GLYCOSYLATED [id number] 04:53:00* Test Item Value Reference Range Interpretation Comme nts GLYCOSYLATED HEMOGLOBIN (HA1 C) (test code = GLYHGB) 5.6 % 4.5-5.9 N LACTIC [id number] 04:20:00* Test Item Value Reference Range Interpretation Comme nts LACTIC ACID (test code = LACT) 1.4 mmol/L 0.5-2.2 N Comments to Phleb: 0400CBC W/O [id number] 04:15:00* Test Item Value Reference Range Interpretation Comme nts WHITE BLOOD CELL (test code = WBC) 16.3 10 3/uL 4.5-11.0 H RED BLOOD CELL (test code = RBC) 4.71 10 6/uL 4.30-5.90 N HEMOGLOBIN (test code = HGB) 14.7 g/dL 14.0-18.0 N HEMATOCRIT (test code = HCT) 42.9 % 40.0-55.0 N MEAN CELL VOLUME (test code = MCV) 91 fL 81-102 N MEAN CELL HGB (test code = MCH) 31.2 pg 26.0-34.0 N MEAN CELL HGB CONCENTRATION (test code = MCHC) 34.3 g/dL 31.0-37.0 N RED CELL DISTRIBUTION WIDTH (test code = RDW) 15.9 % 11.6-14.4 H PLATELET COUNT (test code = PLT) 269 10 3/uL 150-400 N BASIC METABOLIC [id number] 04:12:00* Test Item Value Reference Range Interpretation Comme nts SODIUM (test code = NA) 127 mmol/L 136-145 L POTASSIUM (test code = K) 6.9 mmol/L 3.5-5.1 HH Critical Value r eported toFirst Name:YUAN Last Name:ÁNGEL D:[id number] READ BACK AND VERIFIEDby [id number], on 12/27/23, @ 8905. CHLORIDE (test code = CL) 96 mmol/L 98-107 L CARBON DIOXIDE (test code = CO2) 26 mmol/L 20-31 N ANION GAP (test code = GAP) 11.9 2.0-16.0 N GLUCOSE (test code = GLU) 109 mg/dL 74-106 H BLOOD UREA NITROGEN (test code = BUN) 13 mg/dL 9-23 N GLOMERULAR FILTRATION RATE (test code = GFR) 57 ml/min L The Glomerular Filtration Rate is a calculated parameterbased on serum Creatinine, patient age and sex. GFR valuesless than 60 mL/min/1.73 square meters are indicative ofChronic Kidney Disease. Values less than 15 mL/min/1.73square meters indicate Kidney failure. The calculation forGFR is based on the CKD-EPI (2020) calculation. This formulais race indifferent and is the recommended formula for GFRby the National Kidney Foundation for Adults.The GFR will not calculate if the sex is unknown or if thepatient's age is <18 years. CREATININE (test code = CREAT) 1.4 mg/dL 0.7-1.3 H BUN/CREATININE RATIO (test code = BUN/CREA) 9.3 12.0-20.0 L CALCIUM (test code = CA) 7.9 mg/dL 8.7-10.4 L LIPID PROFILE (CORONARY RISK)2023-12-27 04:12:00* Test Item Value Reference Range Interpretation Comme nts TRIGLYCERIDES (test code = TRIG) 163 mg/dL 0-149 H According to the National Institutes of Health (NIH) and theNational Cholesterol Education Program (NCEP), serumtriglyceride levels between 150-199mg/dL are consideredBorderline High. CHOLESTEROL (test code = CHOL) 152 mg/dL 0-200 N CHOLESTEROL/HDL RATIO (test code = CHOLHDL) 2 1-6 N HDL CHOLESTEROL (test code = HDL) 70 mg/dL 40-59 H According to umesh whiting National Institutes of Health (NIH) and theNational Cholesterol Education Program (NCEP), an HDLcholesterol >or= 60mg/dL counts as a "negative" risk factor;its presence removes one risk factor from the total count. LIPOPROTEIN LDL (test code = LDLC) 47 mg/dL 0-100 N [id number] 04:12:00* Test Item Value Reference Range Interpretation Comme nts PHOSPHOROUS (test code = PHOS) 4.6 mg/dL 2.4-5.1 N [id number] 04:12:00* Test Item Value Reference Range Interpretation Comme nts MAGNESIUM (test code = MAG) 1.9 mg/dL 1.6-2.6 N [id number] 04:12:00* Test Item Value Reference Range Interpretation Comme nts ALCOHOL (test code = ALC) 6.0 mg/dL 0-3 H DRUGS OF ABUSE SCREEN [id number] 04:10:00* Test Item Value Reference Range Interpretation Comme nts UR COCAINE (test code = COCAU) NEGATIVE NEGATIVE Test Threshold L evels: Amphetamine: 500 ng/mL Methamphetamines: 500 ng/mL Barbiturates: 200 ng/mL Benzodiazepines: 150 ng/mL Cocaine: 150 ng/mL Methadone (EDDP): 200 ng/mL Opiates: 100 or 2000 ng/mL THC: 50 ng/mL TCA: 300 mg/mL This is a preliminary analytical result. A more specificalternative chemical method must be used in order to obtaina confirmed result. Unconfirmed Drugs of Abuse screening results should not beused for non-medical purposes. UR METHAMPHETAMINE (test code = METHAMPHU) NEGATIVE NEGATIVE UR CANABINOIDS (test code = CANU) NEGATIVE NEGATIVE UR AMPHETAMINE (test code = AMPHU) NEGATIVE NEGATIVE UR BARBITURATE (test code = BARBQLU) NEGATIVE NEGATIVE UR BENZODIAZEPINE (test code = BENZU) NEGATIVE NEGATIVE UR OPIATES QUAL (test code = OPIAQLU) Negative NEGATIVE UR TRICYCLICS (test code = TRICYCU) Negative NEGATIVE UR PHENCYCLIDINE (PCP) (test code = PHENCU) Negative NEGATIVE UA RFLX MICR CULT IF [id number] 04:07:00* Test Item Value Reference Range Interpretation Comme nts UA COLOR (test code = COLU) YELLOW YELLOW UA APPEARANCE (test code = APPU) CLEAR CLEAR UA GLUCOSE DIPSTICK (test co de = DGLUU) NEGATIVE NEGATIVE UA BILIRUBIN DIPSTICK (test code = BILU) NEGATIVE NEGATIVE UA KETONE DIPSTICK (test cod e = KETU) NEGATIVE NEGATIVE UA SPECIFIC GRAVITY (test co de = SGU) 1.019 1.005-1.025 N UA BLOOD DIPSTICK (test code = AMAURY) 2+ NEGATIVE A UA PH DIPSTICK (test code = GRACIE) 6.0 5.0-8.0 UA PROTEIN DIPSTICK (test co de = PROU) NEGATIVE NEGATIVE UA UROBILINOGEN DIPSTICK (te st code = URO) NEGATIVE EU/dL 0.1-0.2 UA NITRITE DIPSTICK (test co de = JELENA) NEGATIVE NEGATIVE UA LEUKOCYTE ESTERASE DIPSTI CK (test code = LEUU) NEGATIVE NEGATIVE UA WBC (test code = WBCU) 6-10 /hpf 0-3 A UA RBC (test code = RBCU) 6-10 /hpf 0-3 A UA BACTERIA (test code = BACU) RARE /HPF NEGATIVE UA SQUAMOUS CELLS (test code = SQU) RARE /HPF FEW LACTIC [id number] 00:45:00* Test Item Value Reference Range Interpretation Comme nts LACTIC ACID (test code = LACT) 2.3 mmol/L 0.5-2.2 H Elevated Lactate reported to the following Caregiver:Full Name/Title: JACKIE Odom [id number], on 12/27/23, @ 0045 ARTERIAL BLOOD [id number] 22:41:00* Test Item Value Reference Range Interpretation Comme nts ARTERIAL BLOOD GAS PH (test code = PHA) 7.273 7.35-7.45 L ARTERIAL BLOOD GAS PCO2 (kristina t code = PCO2A) 52.2 mmHg 35.0-45.0 H ARTERIAL BLOOD GAS PO2 (test code = PO2A) 146.4 mmHg 80.0-100.0 H BICARBONATE TOTAL HCO3 (test code = HCO3) 23.6 mmol/L 22.0-26.0 N BASE EXCESS (test code = UZIEL) -3.9 mmol/L 0.0-2.0 L ABG O2 SATURATION (test code = SATA) 99.0 % 94.0-98.0 H ABG TYPE (test code = TYPEA) Arterial ARTERIAL FIO2 (test code = FIO2A) 100.0 % ABG VENT MODE (test code = MODEA) AC ABG TIDAL VOLUME (test code = TIDAL VOLUME) 400 cc ABG PEEP (test code = PEEP) 12.0 cmH2O ABG SITE (test code = SITEA) Right Radial ALLENS TEST (test code = ALLENS) Yes TOTAL HGB (test code = THB) 15.2 g/dL 13.0-17.0 N OXYHEMOGLOBIN (test code = OOHGBT) 98.4 % 92.0-98.0 H CARBOXYHEMOGLOBIN (test code = HOHGBT) 0.3 % 0-5.0 TCO2 ARTERIAL (test code = TCO2A) 25.2 mL/dL 15-23 H PaO2/[id number] 22:41:00* Test Item Value Reference Range Interpretation Comme nts PaO2/FiO2 (test code = [id number]) 146.40 >200 L ARTERIAL BLOOD [id number] 20:33:00* Test Item Value Reference Range Interpretation Comme nts ARTERIAL BLOOD GAS PH (test code = PHA) 7.144 7.35-7.45 LL CRITICAL RESUL T - TESTING PERFORMED BY PRIMARY CAREGIVER ARTERIAL BLOOD GAS PCO2 (test code = PCO2A) 63.5 mmHg 35.0-45.0 HH CRITICAL RES ULT - TESTING PERFORMED BY PRIMARY CAREGIVER ARTERIAL BLOOD GAS PO2 (test code = PO2A) 76.4 mmHg 80.0-100.0 L BICARBONATE TOTAL HCO3 (test code = HCO3) 21.3 mmol/L 22.0-26.0 L BASE EXCESS (test code = UZIEL) -9.0 mmol/L 0.0-2.0 L ABG O2 SATURATION (test code = SATA) 92.0 % 94.0-98.0 L ABG TYPE (test code = TYPEA) Arterial Notified: ciera avila by patricio jose on at 20:32:2 ARTERIAL FIO2 (test code = FIO2A) 100.0 % ABG VENT MODE (test code = MODEA) AC ABG TIDAL VOLUME (test code = TIDAL VOLUME) 400 cc ABG PEEP (test code = PEEP) 12.0 cmH2O ABG SITE (test code = SITEA) Right Radial ALLENS TEST (test code = ALLENS) Yes TOTAL HGB (test code = THB) 17.7 g/dL 13.0-17.0 H OXYHEMOGLOBIN (test code = OOHGBT) 91.4 % 92.0-98.0 L CARBOXYHEMOGLOBIN (test code = HOHGBT) 0.4 % 0-5.0 METHEMOGLOBIN (test code = METHGB) <0.8 % 0-1.5 N TCO2 ARTERIAL (test code = TCO2A) 23.3 mL/dL 15-23 H CRITICAL VALUE (test code = CVCBG) N/A Notified: ciera avila by patricio jose on at 20:32:2 PaO2/[id number] 20:33:00* Test Item Value Reference Range Interpretation Comme nts PaO2/FiO2 (test code = [id number]) 76.40 >200 L B-TYPE NATRIURETIC [id number] 19:55:00* Test Item Value Reference Range Interpretation Comme nts B-TYPE NATRIURETIC PEPTIDE ( test code = BNP) 546 pg/mL 0-100 H LACTIC [id number] 19:03:00* Test Item Value Reference Range Interpretation Comme nts LACTIC ACID (test code = LACT) 4.0 mmol/L 0.5-2.2 H Elevated Lactate reported to the following Caregiver:Full Name/Title: DR SCHUYLER DEGROOT by [id number], on 12/26/23, @ 1903 BASIC METABOLIC [id number] 19:01:00* Test Item Value Reference Range Interpretation Comme nts SODIUM (test code = NA) 124 mmol/L 136-145 L POTASSIUM (test code = K) 4.3 mmol/L 3.5-5.1 N CHLORIDE (test code = CL) 94 mmol/L 98-107 L CARBON DIOXIDE (test code = CO2) 22 mmol/L 20-31 N ANION GAP (test code = GAP) 12.3 2.0-16.0 N GLUCOSE (test code = GLU) 160 mg/dL 74-106 H BLOOD UREA NITROGEN (test code = BUN) 9 mg/dL 9-23 N GLOMERULAR FILTRATION RATE (test code = GFR) >=60 max estimate ml/min The Glomerular Filtration Rate is a calculated parameterbased on serum Creatinine, patient age and sex. GFR valuesless than 60 mL/min/1.73 square meters are indicative ofChronic Kidney Disease. Values less than 15 mL/min/1.73square meters indicate Kidney failure. The calculation forGFR is based on the CKD-EPI (202) calculation. This formulais race indifferent and is the recommended formula for GFRby the National Kidney Foundation for Adults.The GFR will not calculate if the sex is unknown or if thepatient's age is <18 years. CREATININE (test code = CREAT) 1.3 mg/dL 0.7-1.3 N BUN/CREATININE RATIO (test code = BUN/CREA) 6.9 12.0-20.0 L CALCIUM (test code = CA) 9.6 mg/dL 8.7-10.4 N LIVER FUNCTION [id number] 19:01:00* Test Item Value Reference Range Interpretation Comme nts TOTAL PROTEIN (test code = PROT) 8.8 g/dL 5.7-8.2 H ALBUMIN (test code = ALB) 5.1 g/dL 3.4-5.0 H GLOBULIN (test code = GLOB) 3.7 g/dL 2.3-3.5 H BILIRUBIN TOTAL (test code = BILT) 0.7 mg/dL 0.2-1.1 N BILIRUBIN DIRECT (test code = BILD) 0.2 mg/dL 0.0-0.3 N BILIRUBIN INDIRECT (test cod e = BILIND) 0.5 mg/dL 0.0-0.8 N SGOT/AST (test code = AST) 33 U/L <34 SGPT/ALT (test code = ALT) 27 U/L 10-49 N ALKALINE PHOSPHATASE (test c ode = ALKP) 138 U/L 46-116 H TROP-I HIGH [id number] 19:01:00* Test Item Value Reference Range Interpretation Comme nts TROP-I HIGH SENSITIVITY (test code = TROPIHS) 21 pg/mL 0-78 N CAUTION: U nits of the current test methodology (pg/mL) differ from the prior test methodology (ng/mL) by a factor of 1000. POSITIVE TROPONIN HS IS IDENTIFIED THE FOLLOWING MALE > OR = 78 pg/mL FEMALE > OR = 53 pg/mL ALL CRITICAL TROPI HS HAVE BEEN IDENTIFIED MALE OR FEMALE > OR = 120 pg/mL CBC W/O [id number] 18:54:00* Test Item Value Reference Range Interpretation Comme nts WHITE BLOOD CELL (test code = WBC) 9.7 10 3/uL 4.5-11.0 N RED BLOOD CELL (test code = RBC) 5.75 10 6/uL 4.30-5.90 N HEMOGLOBIN (test code = HGB) 18.0 g/dL 14.0-18.0 N HEMATOCRIT (test code = HCT) 52.3 % 40.0-55.0 N MEAN CELL VOLUME (test code = MCV) 91 fL 81-102 N MEAN CELL HGB (test code = MCH) 31.3 pg 26.0-34.0 N MEAN CELL HGB CONCENTRATION (test code = MCHC) 34.4 g/dL 31.0-37.0 N RED CELL DISTRIBUTION WIDTH (test code = RDW) 15.8 % 11.6-14.4 H PLATELET COUNT (test code = PLT) 270 10 3/uL 150-400 N ARTERIAL BLOOD [id number] 18:52:00* Test Item Value Reference Range Interpretation Comme [facility] ARTERIAL BLOOD GAS PH (test code = PHA) 7.186 7.35-7.45 LL CRITICAL RESUL T - TESTING PERFORMED BY PRIMARY CAREGIVER ARTERIAL BLOOD GAS PCO2 (test code = PCO2A) 47.6 mmHg 35.0-45.0 H ARTERIAL BLOOD GAS PO2 (test code = PO2A) 77.7 mmHg 80.0-100.0 L BICARBONATE TOTAL HCO3 (test code = HCO3) 17.6 mmol/L 22.0-26.0 L BASE EXCESS (test code = UZIEL) -10.7 mmol/L 0.0-2.0 L ABG O2 SATURATION (test code = SATA) 92.8 % 94.0-98.0 L ABG TYPE (test code = TYPEA) Arterial Notified: ER DOC by PATRICIO JOSE on at 18:51:36 ARTERIAL FIO2 (test code = FIO2A) 100.0 % ABG VENT MODE (test code = MODEA) BIPAP ABG PEEP (test code = PEEP) 8.0 cmH2O ABG SITE (test code = SITEA) Right Radial ALLENS TEST (test code = ALLENS) Yes TOTAL HGB (test code = THB) 17.5 g/dL 13.0-17.0 H OXYHEMOGLOBIN (test code = OOHGBT) 92.4 % 92.0-98.0 N CARBOXYHEMOGLOBIN (test code = HOHGBT) 0.1 % 0-5.0 N METHEMOGLOBIN (test code = METHGB) <0.8 % 0-1.5 N TCO2 ARTERIAL (test code = TCO2A) 19.1 mL/dL 15-23 N CRITICAL VALUE (test code = CVCBG) N/A Notified: ER DOC by PATRICIO JOSE on at 18:51:36 PaO2/[id number] 18:52:00* Test Item Value Reference Range Interpretation Comme nts PaO2/FiO2 (test code = [id number]) 77.70 >200 L INFLUENZA A B [id number] 12:34:00* Test Item Value Reference Range Interpretation Comme nts INFLUENZA A POC (test code = INFLAAG) Negative NEGATIVE INFLUENZA B POC (test code = INFLBAG) Negative NEGATIVE Coronavirus 2019 nCoV [id number] 12:33:00* Test Item Value Reference Range Interpretation Comme nts Coronavirus 2019 nCoV Bedside (test code = [id number]) Negative Negative Negative results should be treated as presumptive and, ifinconsistent with clinical signs and symptoms or necessaryfor patient management, should be tested with differentauthorized or cleared molecular tests. Negative results donot preclude SARS-CoV-2 infection and should not be used asthe sole basis for patient management decisions. Negativeresults should be considered in the context of a patient'srecent exposures, history and presence of clinical signs andsymptoms consistent with COVID-19. This test had not been FDA cleared or approved; This testhas been authorized by FDA under an EUA for use byauthorized laboratories only for the detection of nucleicacid from SARS-CoV-2, not for any other viruses orpathogens. ID [employer] COVID-19 assay performed on the [employer] is a rapid molecular in vitro diagnostic testutilizing an isothermal nucleic acid amplificationtechnology intended for the qualitative detection of nucleicacid from the SARS-CoV-2 viral RNA in direct nasal,nasopharyngeal or throat swabs from individuals who aresuspected of COVID-19 by their healthcare provider withinthe first seven days of the onset of symptoms. Testing isauthorized for laboratories certified under the ClinicalLaboratory Improvement Amendments of 1988 (CLIA), BASIC METABOLIC [id number] 07:22:00* Test Item Value Reference Range Interpretation Comme nts SODIUM (test code = NA) 137 mmol/L 136-145 N POTASSIUM (test code = K) 3.9 mmol/L 3.5-5.1 N CHLORIDE (test code = CL) 103 mmol/L 98-107 N CARBON DIOXIDE (test code = CO2) 26 mmol/L 20-31 N ANION GAP (test code = GAP) 11.9 2.0-16.0 N GLUCOSE (test code = GLU) 110 mg/dL 74-106 H BLOOD UREA NITROGEN (test code = BUN) 14 mg/dL 9-23 N GLOMERULAR FILTRATION RATE (test code = GFR) >=60 max estimate ml/min The Glomerular Filtration Rate is a calculated parameterbased on serum Creatinine, patient age and sex. GFR valuesless than 60 mL/min/1.73 square meters are indicative ofChronic Kidney Disease. Values less than 15 mL/min/1.73square meters indicate Kidney failure. The calculation forGFR is based on the CKD-EPI (2020) calculation. This formulais race indifferent and is the recommended formula for GFRby the National Kidney Foundation for Adults.The GFR will not calculate if the sex is unknown or if thepatient's age is <18 years. CREATININE (test code = CREAT) 1.1 mg/dL 0.7-1.3 N BUN/CREATININE RATIO (test code = BUN/CREA) 12.7 12.0-20.0 N CALCIUM (test code = CA) 9.7 mg/dL 8.7-10.4 N TROP-I HIGH [id number] 07:22:00* Test Item Value Reference Range Interpretation Comme nts TROP-I HIGH SENSITIVITY (test code = TROPIHS) 26 pg/mL 0-78 N CAUTION: U nits of the current test methodology (pg/mL) differ from the prior test methodology (ng/mL) by a factor of 1000. POSITIVE TROPONIN HS IS IDENTIFIED THE FOLLOWING MALE > OR = 78 pg/mL FEMALE > OR = 53 pg/mL ALL CRITICAL TROPI HS HAVE BEEN IDENTIFIED MALE OR FEMALE > OR = 120 pg/mL CBC W/AUTO [id number] 06:21:00* Test Item Value Reference Range Interpretation Comme nts WHITE BLOOD CELL (test code = WBC) 8.4 10 3/uL 4.5-11.0 N RED BLOOD CELL (test code = RBC) 5.11 10 6/uL 4.30-5.90 N HEMOGLOBIN (test code = HGB) 15.6 g/dL 14.0-18.0 N HEMATOCRIT (test code = HCT) 46.3 % 40.0-55.0 N MEAN CELL VOLUME (test code = MCV) 91 fL 81-102 N MEAN CELL HGB (test code = MCH) 30.5 pg 26.0-34.0 N MEAN CELL HGB CONCENTRATION (test code = MCHC) 33.7 g/dL 31.0-37.0 N RED CELL DISTRIBUTION WIDTH (test code = RDW) 15.1 % 11.6-14.4 H PLATELET COUNT (test code = PLT) 222 10 3/uL 150-400 N MEAN PLATELET VOLUME (test code = MPV) 10.1 fL 9.0-12.6 N NEUTROPHIL % (test code = NT%) 73.5 % 33.0-76.0 N IMMATURE GRANULOCYTE % (test code = IG%) 0.2 % 0.0-1.0 N LYMPHOCYTE % (test code = LY%) 18.4 % 14.0-56.4 N MONOCYTE % (test code = MO%) 6.8 % 0.0-12.9 N EOSINOPHIL % (test code = EO%) 0.7 % 0.0-7.0 N BASOPHIL % (test code = BA%) 0.4 % 0-2.0 N NUCLEATED RBC % (test code = NRBC%) 0.0 % 0-0.2 N NEUTROPHIL # (test code = NT#) 6.16 10 3/uL 1.5-7.0 N IMMATURE GRANULOCYTE # (test code = IG#) 0.020 x10 3/uL 0.000-0.100 N LYMPHOCYTE # (test code = LY#) 1.54 10 3/uL 1.50-4.00 N MONOCYTE # (test code = MO#) 0.57 10 3/uL 0.20-0.80 N EOSINOPHIL # (test code = EO#) 0.06 10 3/uL 0.0-0.5 N BASOPHIL # (test code = BA#) 0.03 10 3/uL 0.0-0.1 N NUCLEATED RBC # (test code = NRBC#) 0.000 10 3/uL 0.000-0.012 N TROP-I HIGH [id number] 03:08:00* Test Item Value Reference Range Interpretation Comme nts TROP-I HIGH SENSITIVITY (test code = TROPIHS) 38 pg/mL 0-78 N CAUTION: U nits of the current test methodology (pg/mL) differ from the prior test methodology (ng/mL) by a factor of 1000. POSITIVE TROPONIN HS IS IDENTIFIED THE FOLLOWING MALE > OR = 78 pg/mL FEMALE > OR = 53 pg/mL ALL CRITICAL TROPI HS HAVE BEEN IDENTIFIED MALE OR FEMALE > OR = 120 pg/mL B-TYPE NATRIURETIC [id number] 23:55:00* Test Item Value Reference Range Interpretation Comme nts B-TYPE NATRIURETIC PEPTIDE ( test code = BNP) 215 pg/mL 0-100 H BASIC METABOLIC [id number] 23:40:00* Test Item Value Reference Range Interpretation Comme nts SODIUM (test code = NA) 133 mmol/L 136-145 L POTASSIUM (test code = K) 3.7 mmol/L 3.5-5.1 N CHLORIDE (test code = CL) 100 mmol/L 98-107 N CARBON DIOXIDE (test code = CO2) 27 mmol/L 20-31 N ANION GAP (test code = GAP) 9.7 2.0-16.0 N GLUCOSE (test code = GLU) 109 mg/dL 74-106 H BLOOD UREA NITROGEN (test code = BUN) 15 mg/dL 9-23 N GLOMERULAR FILTRATION RATE (test code = GFR) >=60 max estimate ml/min The Glomerular Filtration Rate is a calculated parameterbased on serum Creatinine, patient age and sex. GFR valuesless than 60 mL/min/1.73 square meters are indicative ofChronic Kidney Disease. Values less than 15 mL/min/1.73square meters indicate Kidney failure. The calculation forGFR is based on the CKD-EPI (2020) calculation. This formulais race indifferent and is the recommended formula for GFRby the National Kidney Foundation for Adults.The GFR will not calculate if the sex is unknown or if thepatient's age is <18 years. CREATININE (test code = CREAT) 1.3 mg/dL 0.7-1.3 N BUN/CREATININE RATIO (test code = BUN/CREA) 11.5 12.0-20.0 L CALCIUM (test code = CA) 9.8 mg/dL 8.7-10.4 N LIVER FUNCTION [id number] 23:40:00* Test Item Value Reference Range Interpretation Comme nts TOTAL PROTEIN (test code = PROT) 8.0 g/dL 5.7-8.2 N ALBUMIN (test code = ALB) 4.8 g/dL 3.4-5.0 N GLOBULIN (test code = GLOB) 3.2 g/dL 2.3-3.5 N BILIRUBIN TOTAL (test code = BILT) 0.6 mg/dL 0.2-1.1 N BILIRUBIN DIRECT (test code = BILD) 0.2 mg/dL 0.0-0.3 N BILIRUBIN INDIRECT (test cod e = BILIND) 0.4 mg/dL 0.0-0.8 N SGOT/AST (test code = AST) 20 U/L <34 SGPT/ALT (test code = ALT) 19 U/L 10-49 N ALKALINE PHOSPHATASE (test c ode = ALKP) 134 U/L 46-116 H [id number] 23:40:00* Test Item Value Reference Range Interpretation Comme nts LIPASE (test code = LIP) 42 U/L 12-53 N CAUTION: Patient Reference Range of the current Lipase method differs significantly from the prior Lipase Reference range. (prior range 73-393 U/L) [id number] 23:40:00* Test Item Value Reference Range Interpretation Comme nts MAGNESIUM (test code = MAG) 1.8 mg/dL 1.6-2.6 N TROP-I HIGH [id number] 23:40:00* Test Item Value Reference Range Interpretation Comme nts TROP-I HIGH SENSITIVITY (test code = TROPIHS) 28 pg/mL 0-78 N CAUTION: U nits of the current test methodology (pg/mL) differ from the prior test methodology (ng/mL) by a factor of 1000. POSITIVE TROPONIN HS IS IDENTIFIED THE FOLLOWING MALE > OR = 78 pg/mL FEMALE > OR = 53 pg/mL ALL CRITICAL TROPI HS HAVE BEEN IDENTIFIED MALE OR FEMALE > OR = 120 pg/mL CBC W/AUTO [id number] 23:25:00* Test Item Value Reference Range Interpretation Comme nts WHITE BLOOD CELL (test code = WBC) 8.8 10 3/uL 4.5-11.0 N RED BLOOD CELL (test code = RBC) 5.14 10 6/uL 4.30-5.90 N HEMOGLOBIN (test code = HGB) 15.5 g/dL 14.0-18.0 N HEMATOCRIT (test code = HCT) 46.9 % 40.0-55.0 N MEAN CELL VOLUME (test code = MCV) 91 fL 81-102 N MEAN CELL HGB (test code = MCH) 30.2 pg 26.0-34.0 N MEAN CELL HGB CONCENTRATION (test code = MCHC) 33.0 g/dL 31.0-37.0 N RED CELL DISTRIBUTION WIDTH (test code = RDW) 15.1 % 11.6-14.4 H PLATELET COUNT (test code = PLT) 208 10 3/uL 150-400 N MEAN PLATELET VOLUME (test code = MPV) 9.4 fL 9.0-12.6 N NEUTROPHIL % (test code = NT%) 67.4 % 33.0-76.0 N IMMATURE GRANULOCYTE % (test code = IG%) 0.3 % 0.0-1.0 N LYMPHOCYTE % (test code = LY%) 23.5 % 14.0-56.4 N MONOCYTE % (test code = MO%) 6.9 % 0.0-12.9 N EOSINOPHIL % (test code = EO%) 1.4 % 0.0-7.0 N BASOPHIL % (test code = BA%) 0.5 % 0-2.0 N NUCLEATED RBC % (test code = NRBC%) 0.0 % 0-0.2 N NEUTROPHIL # (test code = NT#) 5.95 10 3/uL 1.5-7.0 N IMMATURE GRANULOCYTE # (test code = IG#) 0.030 x10 3/uL 0.000-0.100 N LYMPHOCYTE # (test code = LY#) 2.07 10 3/uL 1.50-4.00 N MONOCYTE # (test code = MO#) 0.61 10 3/uL 0.20-0.80 N EOSINOPHIL # (test code = EO#) 0.12 10 3/uL 0.0-0.5 N BASOPHIL # (test code = BA#) 0.04 10 3/uL 0.0-0.1 N NUCLEATED RBC # (test code = NRBC#) 0.000 10 3/uL 0.000-0.012 N NT PRO-BRAIN NATRIURETIC [id number] 22:07:00* Test Item Value Reference Range Interpretation Comme nts NT PRO-BRAIN NATRIURETIC PEPTI (test code = PROBNP) 7175 pg/mL 0-210 H The followi ng cut-points have been suggested for theuse of proBNP for the diagnostic evaluation of heartfailure (HF) in patients with acute dyspnea:Modality Age Optimal Cut (years) Point Diagnos is (rule in HF) <50 450 pg/mL 50 - 75 900 pg/mL >75 1800 pg/mLExclusion (rule out HF) Age independent 300 pg/mLPerformed At: Lab[address] [id number] Sanjai MD Ph:[phone] Novel Coronavirus [id number] 21:20:00* Test Item Value Reference Range Interpretation Comme nts Novel Coronavirus 2019 Inhouse (test code = [id number]) Negative Negative Positive resul ts are indicative of the presence qyFJBP-[id number]-9 RNA, clinical correlation with patient historyand other diagnostic information is necessary to determinepatient infection status. Positive results do not rule outbacterial infection or co-infection with other viruses. Negative results do not preclude SARS-CoV-2 infection andshould not be used as the sole basis for patient managementdecisions. Negative results must be combined with otherclinical observations, patient history, and epidemiologicalinformation . Detection of SARS-CoV-2 RNA may be affected bysample collection methods, storage conditions, and/or stageof infection. Viral RNA mutations, vaccinations, antiviraltherapeutics, antibiotics, chemotherapeutic orimmunosuppressant drugs have not been evaluated for effectson detection. Results are for the identification of SARS-CoV-2 RNA usingreal-time (RT) polymerase chain reaction (PCR) technologyfor the qualitative detection of nucleic acids from niyVPSL-RnH-8 virus and diagnosis of SARS-CoV-2 virusinfection. It is an Emergency Use Authorization (EUA) testauthorized by the U.S. FDA. LACTIC [id number] 11:20:00* Test Item Value Reference Range Interpretation Comme nts LACTIC ACID (test code = LACT) 1.40 mmol/L 0.5-2.0 N BASIC METABOLIC [id number] 10:52:00* Test Item Value Reference Range Interpretation Comme nts SODIUM (test code = NA) 133 mmol/L 136-145 L POTASSIUM (test code = K) 3.8 mmol/L 3.5-5.1 N CHLORIDE (test code = CL) 101 mmol/l 98-107 N CARBON DIOXIDE (test code = CO2) 25 mmol/L 20-31 N GLUCOSE (test code = GLU) 90 mg/dL 74-106 N BLOOD UREA NITROGEN (test code = BUN) 11 mg/dL 9-23 N GLOMERULAR FILTRATION RATE (test code = GFR) >=60 max estimate mL/min >60 The Glomerular Filtration Rate is a calculated parameterbased on serum Creatinine, patient age and sex. GFR valuesless than 60 mL/min/1.73 square meters are indicative ofChronic Kidney Disease. Values less than 15 mL/min/1.73square meters indicate Kidney failure. The calculation forGFR is based on the CKD-EPI (2020) calculation. This formulais race indifferent and is the recommended formula for GFRby the National Kidney Foundation for Adults.The GFR will not calculate if the sex is unknown or if thepatient's age is <18 years. CREATININE (test code = CREAT) 1.10 mg/dL 0.70-1.30 N CALCIUM (test code = CA) 8.3 mg/dL 8.7-10.4 L [id number] 10:52:00* Test Item Value Reference Range Interpretation Comme nts PHOSPHOROUS (test code = PHOS) 3.4 mg/dL 2.4-5.1 REPEAT VALUE 3.4 [id number] 10:52:00* Test Item Value Reference Range Interpretation Comme nts MAGNESIUM (test code = MAG) 2.3 mg/dL 1.6-2.6 N THROMBOPLASTIN TIME [id number] 10:35:00* Test Item Value Reference Range Interpretation Comme nts THROMBOPLASTIN TIME PARTIAL (test code = PTT) 28.4 secs 23.8-34.8 N INTERPRETATIVE D EDGARD: Therapeutic range: Unfractionated Heparin: 60-90 seconds Argatroban: 60-90 seconds CBC W/AUTO [id number] 10:27:00* Test Item Value Reference Range Interpretation Comme nts WHITE BLOOD CELL (test code = WBC) 9.9 x10 3/uL 4.8-10.8 N RED BLOOD CELL (test code = RBC) 3.47 x10 6/uL 4.70-6.10 L HEMOGLOBIN (test code = HGB) 11.2 g/dL 14.0-18.0 L HEMATOCRIT (test code = HCT) 33.2 % 42.0-52.0 L MEAN CELL VOLUME (test code = MCV) 95.7 fL 80.0-94.0 H MEAN CELL HGB (test code = MCH) 32.3 pg 27-31 H MEAN CELL HGB CONCENTRATION (test code = MCHC) 33.7 G/DL 33-36.5 N RED CELL DISTRIBUTION WIDTH (test code = RDW) 15.4 % 12.9-16.9 N PLATELET COUNT (test code = PLT) 153 x10 3/uL 150-440 N MEAN PLATELET VOLUME (test c ode = MPV) 9.2 fL 8.9-12.4 N NEUTROPHIL % (test code = NT%) 81.1 % 42.2-75.2 H LYMPHOCYTE % (test code = LY%) 12.5 % 20.5-51.1 L MONOCYTE % (test code = MO%) 5.7 % 1.7-9.3 N EOSINOPHIL % (test code = EO%) 0.1 % 0.0-7.0 N BASOPHIL % (test code = BA%) 0.3 % 0-2.5 N NEUTROPHIL # (test code = NT#) 8.03 x10 3/uL 1.80-7.70 H LYMPHOCYTE # (test code = LY#) 1.24 x10 3/uL 1.00-4.80 N MONOCYTE # (test code = MO#) 0.56 x10 3/uL 0.00-0.80 N EOSINOPHIL # (test code = EO#) 0.01 x10 3/uL 0.00-0.45 N BASOPHIL # (test code = BA#) 0.03 x10 3/uL 0.0-0.20 N BLOOD GAS [id number] 04:43:00* Test Item Value Reference Range Interpretation Comme nts ARTERIAL BLOOD GAS PH (test code = PHA) 7.45 7.35-7.45 N ARTERIAL BLOOD GAS PCO2 (test code = PCO2A) 31.9 mmHg 35.0-45.0 L ARTERIAL BLOOD GAS PO2 (test code = PO2A) 219.6 mmHg 80.0-95.0 H BICARBONATE TOTAL HCO3 (test code = HCO3) 21.5 mmol/L 22.0-24.0 L BASE EXCESS (test code = UZIEL) -1.7 mmol/L See_Comment N [Automated message] The system which generated this result transmitted reference range: (+/-)2.0. The reference range was not used to interpret this result as normal/abnormal. ABG O2 SATURATION (test code = SATA) 99.8 % 95.0-100.0 N ARTERIAL FIO2 (test code = FIO2A) 50.0 % ABG VENT MODE (test code = MODEA) Ventilator ALLENS TEST (test code = ALLENS) No SODIUM (POC) (test code = NA/ABG) 132 mmol/L 135-147 L POTASSIUM (POC) (test code = K/ABG) 4.63 mmol/L 3.6-5.2 N CHLORIDE (ARTERIAL) (test code = CL/ABG) 97 mmol/L 98-108 L GLUCOSE (test code = GLU/ABG) 88 mg/dL 70-104 N IONIZED CALCIUM (test code = CAIABG) 1.09 mmol/L 1.12-1.32 L POC LACTIC ACID (test code = POCLAC) 2.00 mmol/L 0.5-2.2 N TOTAL HGB (test code = THB) 13.2 g/dL 13.0-17.0 N OXYHEMOGLOBIN (test code = OOHGBT) 99.0 % 92.0-98.0 H CARBOXYHEMOGLOBIN (test code = HOHGBT) 0.7 % 0-5.0 N METHEMOGLOBIN (test code = METHGB) <0.8 % 0-1.5 N HHb (test code = HHB) 0.2 % TCO2 ARTERIAL (test code = TCO2A) 22.5 MMOL/L 24-30 L VENOUS BLOOD [id number] 04:15:00* Test Item Value Reference Range Interpretation Comme nts VENOUS BLOOD GAS PH (test code = PHV) 7.34 7.35-7.45 L VENOUS BLOOD GAS PCO2 (test code = PCO2V) 37.6 mmHg See_Comment [Automated messa ge] The system which generated this result transmitted reference range: 46. The reference range was not used to interpret this result as normal/abnormal. VENOUS BLOOD GAS PO2 (test code = PO2V) 51.0 mmHg See_Comment [Automated messa ge] The system which generated this result transmitted reference range: 40. The reference range was not used to interpret this result as normal/abnormal. VBG HCO3 (test code = HCO3V) 20 meq/L VBG BASE EXCESS (test code = NATALYA) -5.4 MMOL/L VENOUS BLOOD GAS O2 SAT (test code = O2SATV) 80 % See_Comment [Automated messa ge] The system which generated this result transmitted reference range: 75. The reference range was not used to interpret this result as normal/abnormal. VENOUS BLOOD GAS TYPE (test code = TYPEV) Venous VENOUS BLOOD GAS FIO2 (test code = FIO2V) 50.0 % VBG VENT MODE (test code = MODEV) Ventilator - XR CHEST 1 [id number] 03:40:00 [facility] 1960 Sex: MPatient Name: KOTA MONTES Unit No: [id number] EXAMS: CPT CODE: [id number] XR CHEST 1 V 39085 EXAM: AP chest LOCATION: H 12 HISTORY: CVC PLACEMENT COMPARISON: 08/30/2023 FINDINGS: A right subclavianline has been placed, the tip is in the superior vena cava. No change has occurred in the aeration of the lungs, when allowing for differences in technique or patient positioning. The heart size is unchanged. The mediastinal silhouette is unremarkable. The bony thorax is i ntact. IMPRESSION: 1. Satisfactory line placement. 2. Otherwise stable chest. at 0340 Reported and signed by: DANE SORIA M.D. CC: Sherrie Stein MD Technologist: Dave Bustillo Time: DAP (Gy m2): Air Kerma (mGy): Trscr Dt/Tm: 08/30/2023 (339) by:Carl Printed Date/Time: 08/30/2023 (343) Name: MONTES,ENRIQUE [facility] Phys: Sherrie Paredes MD [address] : 1960 Age: 62 Sex: [place] [address] Loc: P.0307 1 Exam Date: 08/30/2023 Status: ADM IN PH: FAX: PAGE 1 Signed [id number] 02:52:00* Test Item Value Reference Range Interpretation Comme nts TROPONIN-I (test code = TROPI) 106.7 pg/mL 38.73-80.22 HH Critical Value r eported toFirst Name:UYENLast Name:HUNTER RESULTS READ BACK AND VERIFIEDby NAJMA, on 08/30/23, @ 0251. LACTIC [id number] 02:50:00* Test Item Value Reference Range Interpretation Comme nts LACTIC ACID (test code = LACT) 1.80 mmol/L 0.5-2.0 N B-TYPE NATRIURETIC [id number] 02:50:00* Test Item Value Reference Range Interpretation Comme nts B-TYPE NATRIURETIC PEPTIDE ( test code = BNP) 947 pg/mL <100 H COVID 19 Asymptomatic IH [id number] 02:46:00* Test Item Value Reference Range Interpretation Comme nts COVID 19 Asymptomatic IH AG (test code = COVNONPUIAG) NEGATIVE NEGATIVE Negative results , from patients with symptom onset beyondfive days, should be treated as presumptive and confirmationwith a molecular assay, if necessary for patientmanagement, may be performed. Negative results do not ruleout COVID-19 and should not be used as the sole basis fortreatment or patient management decisions, includinginfection control decisions. Negative results should beconsidered in the context of a patient's recent exposures,history and the presence of clinical signs and symptomsconsistent with COVID-19. PROTHROMBIN [id number] 02:46:00* Test Item Value Reference Range Interpretation Comme nts PROTHROMBIN TIME PATIENT (test code = PTP) 11.2 SECONDS 10.3-12.9 N INTERNATIONAL NORMAL RATIO (test code = INR) 1.00 0.9-1.11 N INR goals are individualized based on patient specificfactors. The following are only general guidelines: Indications: INR Goal:1. Treatment of venous thromboembolism and 2.0 - 3.0 systemic anticoagulation in a variety of conditions, including atrial fibrillation and mechanical heart valves 2. Mechanical mitral and tricuspid valves, 2.5 - 3.5 systemic anticoagulation for high-risk conditions THROMBOPLASTIN TIME [id number] 02:46:00* Test Item Value Reference Range Interpretation Comme [facility] THROMBOPLASTIN TIME PARTIAL (test code = PTT) 25.5 secs 23.8-34.8 N INTERPRETATIVE D EDGARD: Therapeutic range: Unfractionated Heparin: 60-90 seconds Argatroban: 60-90 seconds [id number] 02:46:00* Test Item Value Reference Range Interpretation Comme nts FIBRINOGEN (test code = FIB) 216 mg/dL 200-400 N URINALYSIS [id number] 02:45:00* Test Item Value Reference Range Interpretation Comme nts UA COLOR (test code = COLU) YELLOW DISCRIPT YELLOW UA APPEARANCE (test code = APPU) CLEAR DISCRIPT CLEAR UA GLUCOSE DIPSTICK (test code = DGLUU) NEGATIVE mg/dL NEGATIVE UA BILIRUBIN DIPSTICK (test code = BILU) NEGATIVE NEGATIVE UA KETONE DIPSTICK (test cod e = KETU) NEGATIVE mg/dL NEGATIVE UA SPECIFIC GRAVITY (test code = SGU) 1.025 1.005-1.030 UA BLOOD DIPSTICK (test code = AMAURY) MODERATE NEGATIVE A UA PH DIPSTICK (test code = GRACIE) 6.0 5.0-9.0 UA PROTEIN DIPSTICK (test code = PROU) 10 mg/dL NEGATIVE UA UROBILINOGEN DIPSTICK (test code = URO) NORMAL mg/dL 0.2-1.0 UA NITRITE DIPSTICK (test code = JELENA) NEGATIVE NEGATIVE UA LEUKOCYTE ESTERASE DIPSTICK (test code = LEUU) NEGATIVE NEGATIVE UA [id number] 02:45:00* Test Item Value Reference Range Interpretation Comme nts UA WBC (test code = WBCU) 3-5 #WBC/HPF 0-2 A UA RBC (test code = RBCU) 6-10 #RBC/HPF 0-2 A UA BACTERIA (test code = BACU) 1+ /HPF NONE-TRACE A UA SQUAMOUS CELLS (test code = SQU) NONE SEEN /LPF NONE-TRACE COMPREHENSIVE METABOLIC [id number] 02:39:00* Test Item Value Reference Range Interpretation Comme nts SODIUM (test code = NA) 132 mmol/L 136-145 L POTASSIUM (test code = K) 4.4 mmol/L 3.5-5.1 N CHLORIDE (test code = CL) 102 mmol/l 98-107 N CARBON DIOXIDE (test code = CO2) 21 mmol/L 20-31 N GLUCOSE (test code = GLU) 99 mg/dL 74-106 N BLOOD UREA NITROGEN (test code = BUN) 7 mg/dL 9-23 L GLOMERULAR FILTRATION RATE (test code = GFR) >=60 max estimate mL/min >60 The Glomerular Filtration Rate is a calculated parameterbased on serum Creatinine, patient age and sex. GFR valuesless than 60 mL/min/1.73 square meters are indicative ofChronic Kidney Disease. Values less than 15 mL/min/1.73square meters indicate Kidney failure. The calculation forGFR is based on the CKD-EPI (2020) calculation. This formulais race indifferent and is the recommended formula for GFRby the National Kidney Foundation for Adults.The GFR will not calculate if the sex is unknown or if thepatient's age is <18 years. CREATININE (test code = CREAT) 1.00 mg/dL 0.70-1.30 N TOTAL PROTEIN (test code = PROT) 6.2 g/dL 5.7-8.2 N ALBUMIN (test code = ALB) 4.0 g/dL 3.2-4.8 N CALCIUM (test code = CA) 7.6 mg/dL 8.7-10.4 L BILIRUBIN TOTAL (test code = BILT) 0.9 mg/dL 0.3-1.2 N SGOT/AST (test code = AST) 78 U/L <34 H SGPT/ALT (test code = ALT) 74 U/L 10-49 H ALKALINE PHOSPHATASE (test code = ALKP) 125.0 U/L 46-116 H [id number] 02:39:00* Test Item Value Reference Range Interpretation Comme nts PHOSPHOROUS (test code = PHOS) 5.2 mg/dL 2.4-5.1 H [id number] 02:39:00* Test Item Value Reference Range Interpretation Comme nts MAGNESIUM (test code = MAG) 1.6 mg/dL 1.6-2.6 N NT PRO-BRAIN NATRIURETIC [id number] 02:39:00* Test Item Value Reference Range Interpretation Comme nts NT PRO-BRAIN NATRIURETIC PEP TI (test code = PROBNP) pg/mL 0-299 [id number] 02:39:00* Test Item Value Reference Range Interpretation Comme nts ALCOHOL (test code = ALC) 4 mg/dL 0-400 N DRUGS OF ABUSE SCREEN [id number] 02:32:00* Test Item Value Reference Range Interpretation Comme nts UR COCAINE (test code = COCAU) Negative Negative UR CANABINOIDS (test code = CANU) Negative Negative UR AMPHETAMINE (test code = AMPHU) Negative Negative UR BARBITURATE (test code = BARBQLU) Negative Negative UR BENZODIAZEPINE (test code = BENZU) Positive Negative A UR OPIATES QUAL (test code = OPIAQLU) Negative Negative UR PHENCYCLIDINE (PCP) (test code = PHENCU) Negative Negative The assay c ut-off concentration: Benzodiazepines 200 ng/mL Amphetamines 500 ng/mL Barbiturates 200 ng/mL Cannabinoids 50 ng/mL Cocaine 150 ng/mL Opiates 300 ng/mL Phencyclidine 25 ng/mL The method performed by [facility] forurine Drugs of Abuse is performed as a medical screeningtest only. If confirmation testing is required, thephysician must order the confirmatory test within 5 days ofthe specimen's collection date. The specimen will be sentout to an independent reference laboratory. CBC W/AUTO [id number] 02:19:00* Test Item Value Reference Range Interpretation Comme nts WHITE BLOOD CELL (test code = WBC) 9.7 x10 3/uL 4.8-10.8 N RED BLOOD CELL (test code = RBC) 3.69 x10 6/uL 4.70-6.10 L HEMOGLOBIN (test code = HGB) 12.2 g/dL 14.0-18.0 L HEMATOCRIT (test code = HCT) 35.7 % 42.0-52.0 L MEAN CELL VOLUME (test code = MCV) 96.7 fL 80.0-94.0 H MEAN CELL HGB (test code = MCH) 33.1 pg 27-31 H MEAN CELL HGB CONCENTRATION (test code = MCHC) 34.2 G/DL 33-36.5 N RED CELL DISTRIBUTION WIDTH (test code = RDW) 15.2 % 12.9-16.9 N PLATELET COUNT (test code = PLT) 167 x10 3/uL 150-440 N MEAN PLATELET VOLUME (test c ode = MPV) 9.1 fL 8.9-12.4 N NEUTROPHIL % (test code = NT%) 82.8 % 42.2-75.2 H LYMPHOCYTE % (test code = LY%) 10.5 % 20.5-51.1 L MONOCYTE % (test code = MO%) 5.9 % 1.7-9.3 N EOSINOPHIL % (test code = EO%) 0.1 % 0.0-7.0 N BASOPHIL % (test code = BA%) 0.3 % 0-2.5 N NEUTROPHIL # (test code = NT#) 8.06 x10 3/uL 1.80-7.70 H LYMPHOCYTE # (test code = LY#) 1.02 x10 3/uL 1.00-4.80 N MONOCYTE # (test code = MO#) 0.57 x10 3/uL 0.00-0.80 N EOSINOPHIL # (test code = EO#) 0.01 x10 3/uL 0.00-0.45 N BASOPHIL # (test code = BA#) 0.03 x10 3/uL 0.0-0.20 N [id number] 01:28:00* Test Item Value Reference Range Interpretation Comme nts GLUBED (test code = GLUBED) 104 MG/DL 70-105 N - XR CHEST 1 [id number] 00:38:00 [facility] 1960 Sex: MPatient Name: KOTA MONTES Unit No: [id number] EXAMS: CPT CODE: [id number] XR CHEST 1 V [id number] EXAM: AP chest LOCATION: H 12 HISTORY: Intubated COMPARISON: 08/29/2023 FINDINGS: Further improvement has occurred in the bilateral pulmonary opacities with minimal residual infiltration in right midlung. The heart size is enlarged. Postoperative changes of CABG are present. The mediastinal silhouette is unremarkable. The bony thorax is intact. Support lines and tubes are in place. IMPRESSION: Interval improvement since 07/29/2023. at 0038 Reported and signed by: DANE SORIA M.D. CC: Sherrie Stein MD Technologist: Dave Bustillo Time: DAP (Gy m2): Air Kerma (mGy): Trscr Dt/Tm: 08/03 (0038) by:Sofia Printed Date/Time: 08/30/2023 (0042) Name: KOTA MONTES [facility] Phys: Sherrie Paredes MD [address] : 1960 Age: 62 Sex: J[place] Sax[place] [address] Loc: P.0307 1 Exam Date: 08/30/2023 Status: ADM IN PH: FAX: PAGE 1 Signed ReportARTERIAL BLOOD [id number] 19:31:00* Test Item Value Reference Range Interpretation Comme nts ARTERIAL BLOOD GAS PH (test code = PHA) 7.223 7.35-7.45 L ARTERIAL BLOOD GAS PCO2 (test code = PCO2A) 55.5 mmHg 35.0-45.0 H ARTERIAL BLOOD GAS PO2 (test code = PO2A) 83.8 mmHg 80.0-100.0 N BICARBONATE TOTAL HCO3 (test code = HCO3) 22.4 mmol/L 22.0-26.0 N BASE EXCESS (test code = UZIEL) -6.1 mmol/L 0.0-2.0 L ABG O2 SATURATION (test code = SATA) 93.4 % 94.0-98.0 L ABG TYPE (test code = TYPEA) Arterial Notified: ED DOC by PTARICIO JOSE on at 19:31:24 ARTERIAL FIO2 (test code = FIO2A) 100.0 % ABG VENT MODE (test code = MODEA) AC ABG TIDAL VOLUME (test code = TIDAL VOLUME) 450 cc ABG PEEP (test code = PEEP) 7.0 cmH2O ABG SITE (test code = SITEA) Right Radial ALLENS TEST (test code = ALLENS) Yes TOTAL HGB (test code = THB) 15.8 g/dL 13.0-17.0 N OXYHEMOGLOBIN (test code = OOHGBT) 93.0 % 92.0-98.0 N CRITICAL RESULT - TESTING PERFORMED BY PRIMARY CAREGIVER METHEMOGLOBIN (test code = METHGB) <0.8 % 0-1.5 N TCO2 ARTERIAL (test code = TCO2A) 24.1 mL/dL 15-23 H CRITICAL VALUE (test code = CVCBG) N/A Notified: ED DOC by PATRICIO JOSE on at 19:31:24 PaO2/[id number] 19:31:00* Test Item Value Reference Range Interpretation Comme nts PaO2/FiO2 (test code = [id number]) 83.80 >200 L - XR CHEST 1 [id number] 19:22:00 [facility] 1960 Sex: MPatient Name: KOTA MONTES Unit No: [id number] EXAMS: CPT CODE: [id number] XR CHEST 1 V 78415 AP CHEST 1 VIEW COMPARISON: August 29, 2023 FINDINGS: Pulmonary vascular congestion with interstitial and alveolar infiltrate in both lungs. Extensive consolidation at the right lung base. This is stable. Sternotomy. Endotracheal tube tip projects over mid trachea. Nasogastric tube courses below the diaphragm. Heart and mediastinal contours unremarkable. No pleural effusion orpneumothorax.No gross osseous pathology. IMPRESSION: Stable exam. Pulmonary edema with coexistent infiltrate at the right lung base concerning for pneumonia. at 1922 Reported and signed by: Luis Valderrama MD CC: Josette Ley DO; Luke Artis MD Technologist: Gregoria Becker Fluoro Time: DAP (Gy m2): Air Kerma (mGy): Trscr Dt/Tm: 08/29/2023 (1921) by:[email or web address] Electronic Signature Date/Time: 08/29/2023 (1921)Orig Print D/T: S: 08/29/2023 (1924) Name: [facility] Phys: [id number] [place] [address] : 1960 Age: 62 Sex: [place] [address] Loc: [place].ERS Exam Date: 08/29/2023 Status: REG ER PH: FAX: PAGE 1 Signed ReportB-TYPE NATRIURETIC [id number] 19:02:00* Test Item Value Reference Range Interpretation Comme nts B-TYPE NATRIURETIC PEPTIDE ( test code = BNP) 1007 pg/mL 0-100 H LACTIC [id number] 18:58:00* Test Item Value Reference Range Interpretation Comme nts LACTIC ACID (test code = LACT) 5.8 mmol/L 0.4-2.0 H Elevated Lactate reported to the following Caregiver:Full Name/Title: KOBY KAMINSKI/Wander HAMMOND, on 08/29/23, @ 8763 BASIC METABOLIC [id number] 18:28:00* Test Item Value Reference Range Interpretation Comme nts SODIUM (test code = NA) 126 mmol/L 135-145 L POTASSIUM (test code = K) 3.6 mmol/L 3.5-5.1 N CHLORIDE (test code = CL) 94 mmol/L 98-107 L CARBON DIOXIDE (test code = CO2) 21 mmol/L 21-32 N ANION GAP (test code = GAP) 14.6 2.0-16.0 N GLUCOSE (test code = GLU) 199 mg/dL 65-99 H BLOOD UREA NITROGEN (test code = BUN) 6 mg/dL 4-23 N GLOMERULAR FILTRATION RATE (test code = GFR) >=60 max estimate ml/min The Glomerular Filtration Rate is a calculated parameterbased on serum Creatinine, patient age and sex. GFR valuesless than 60 mL/min/1.73 square meters are indicative ofChronic Kidney Disease. Values less than 15 mL/min/1.73square meters indicate Kidney failure. The calculation forGFR is based on the CKD-EPI (2020) calculation. This formulais race indifferent and is the recommended formula for GFRby the National Kidney Foundation for Adults.The GFR will not calculate if the sex is unknown or if thepatient's age is <18 years. CREATININE (test code = CREAT) 1.0 mg/dL 0.6-1.5 N BUN/CREATININE RATIO (test code = BUN/CREA) 6.0 12.0-20.0 L CALCIUM (test code = CA) 8.4 mg/dL 8.5-10.1 L LIVER FUNCTION [id number] 18:28:00* Test Item Value Reference Range Interpretation Comme nts TOTAL PROTEIN (test code = PROT) 7.5 g/dL 6.4-8.2 N ALBUMIN (test code = ALB) 3.6 g/dL 3.4-5.0 N GLOBULIN (test code = GLOB) 3.9 g/dL 2.3-3.5 H BILIRUBIN TOTAL (test code = BILT) 0.9 mg/dL 0.2-1.2 N Use of this a ssay is not recommended for patients undergoingtreatment with Eltrombopag due to the potential for falselyelevated results. BILIRUBIN DIRECT (test code = BILD) 0.1 mg/dL 0.0-0.3 N BILIRUBIN INDIRECT (test code = BILIND) 0.8 mg/dL 0.0-0.8 N SGOT/AST (test code = AST) 114 U/L 15-37 H SGPT/ALT (test code = ALT) 92 U/L 6-50 H ALKALINE PHOSPHATASE (test code = ALKP) 158 U/L 45-117 H [id number] 18:28:00* Test Item Value Reference Range Interpretation Comme nts LIPASE (test code = LIP) 40 U/L 13-75 N CAUTION: Patient Reference Range of the current Lipase method differs significantly from the prior Lipase Reference range. (prior range 73-393 U/L) [id number] 18:28:00* Test Item Value Reference Range Interpretation Comme nts MAGNESIUM (test code = MAG) 2.3 mg/dL 1.8-2.4 N TROP-I HIGH [id number] 18:28:00* Test Item Value Reference Range Interpretation Comme nts TROP-I HIGH SENSITIVITY (test code = TROPIHS) 57 pg/mL 0-78 N CAUTION: U nits of the current test methodology (pg/mL) differ from the prior test methodology (ng/mL) by a factor of 1000. POSITIVE TROPONIN HS IS IDENTIFIED THE FOLLOWING MALE > OR = 78 pg/mL FEMALE > OR = 53 pg/mL ALL CRITICAL TROPI HS HAVE BEEN IDENTIFIED MALE OR FEMALE > OR = 120 pg/mL - XR CHEST 1 [id number] 18:27:00 [facility] 1960 Sex: MPatient Name: KOTA MONTES Unit No: [id number] EXAMS: CPT CODE: [id number] XR CHEST 1 V 58739 Single AP view of the chest INDICATION: Chest Pain COMPARISON: Chest x-ray August 22, 2023 FINDINGS: Sternotomy wires. There is a increased appearance of right mid to basilar patchy pulmonary opacity present. Mild pulmonary vascular congestion.. No pleural effusion . No pneumothorax identified. Heart appears enlarged. Chest wall without acute abnormality. IMPRESSION: Increased right mid to basilar pulmonary opacity which may represent pneumonia. Mild pulmonary vascular congestion/edema with cardiomegaly. at 1827 Reported and signed by: Wenceslao Orona MD CC: Pearl Mcgill MD; [facility]; Josette Ley DO Technologist: Gregoria Bustillo Time: DAP (Gy m2): Air Kerma (mGy): Trscr Dt/Tm:08/29/2023 (1826) by:[email or web address] Electronic Signature Date/Time: 08/29/2023 (1826)Orig Print D/T: S:08/29/2023 (183) Name: KOTA MONTES [facility] Phys: [id number] - [place] [address] : 1960 Age: 62 Sex: [place] [address] : [place].ERS Exam Date: 08/29/2023 Status: REG ER PH: FAX: PAGE 1 Signed ReportPROTHROMBIN [id number] 18:17:00* Test Item Value Reference Range Interpretation Comme nts PROTHROMBIN TIME PATIENT (test code = PTP) 9.7 SECONDS 9.4-12.5 N INTERNATIONAL NORMAL RATIO (test code = INR) 0.8 RATIO 0.8-1.1 N THE INR IS USEFU L ONLY FOR MONITORING ANTICOAGULANT THERAPY.IT MAY BE UNRELIABLE IN THE INITIAL PHASE OF ANTICOAGULATIONAND IN UNSTABLE PATIENTS. 2.0-3.0 is the recommended INR for the following:Prevention of venous thrombolism in high-risk patients;treatment of venous thrombosis and pulmonary embolism aftera course of heparin; prevention of systemic embolism in avariety of condition, including atrial fibrillation andprosthetic tissue heart valves.2.5-3.5 is the recommended INR for the following:Prosthetic mechanical heart values and/or recurrent systemicembolization. THROMBOPLASTIN TIME [id number] 18:17:00* Test Item Value Reference Range Interpretation Comme nts THROMBOPLASTIN TIME PARTIAL (test code = PTT) 29.1 SECONDS 25.1-36.5 N CBC W/AUTO [id number] 18:06:00* Test Item Value Reference Range Interpretation Comme nts WHITE BLOOD CELL (test code = WBC) 10.9 10 3/uL 4.5-11.0 N RED BLOOD CELL (test code = RBC) 4.58 10 6/uL 4.30-5.90 N HEMOGLOBIN (test code = HGB) 14.9 g/dL 14.0-18.0 N HEMATOCRIT (test code = HCT) 45.5 % 40.0-55.0 N MEAN CELL VOLUME (test code = MCV) 99 fL 81-102 N MEAN CELL HGB (test code = MCH) 32.5 pg 26.0-34.0 N MEAN CELL HGB CONCENTRATION (test code = MCHC) 32.7 g/dL 31.0-37.0 N RED CELL DISTRIBUTION WIDTH (test code = RDW) 15.2 % 11.6-14.4 H PLATELET COUNT (test code = PLT) 231 10 3/uL 150-400 N MEAN PLATELET VOLUME (test code = MPV) 9.3 fL 9.0-12.6 N NEUTROPHIL % (test code = NT%) 63.7 % 33.0-76.0 N IMMATURE GRANULOCYTE % (test code = IG%) 0.6 % 0.0-1.0 N LYMPHOCYTE % (test code = LY%) 29.5 % 14.0-56.4 N MONOCYTE % (test code = MO%) 5.1 % 0.0-12.9 N EOSINOPHIL % (test code = EO%) 0.5 % 0.0-7.0 N BASOPHIL % (test code = BA%) 0.6 % 0-2.0 N NUCLEATED RBC % (test code = NRBC%) 0.2 % 0-0.2 N NEUTROPHIL # (test code = NT#) 6.94 10 3/uL 1.5-7.0 N IMMATURE GRANULOCYTE # (test code = IG#) 0.060 x10 3/uL 0.000-0.100 N LYMPHOCYTE # (test code = LY#) 3.20 10 3/uL 1.50-4.00 N MONOCYTE # (test code = MO#) 0.55 10 3/uL 0.20-0.80 N EOSINOPHIL # (test code = EO#) 0.05 10 3/uL 0.0-0.5 N BASOPHIL # (test code = BA#) 0.06 10 3/uL 0.0-0.1 N NUCLEATED RBC # (test code = NRBC#) 0.020 10 3/uL 0.000-0.012 H - CTA CHEST FOR [id number] 18:28:00 [facility] : 1960 Sex: M FAX: Pearl Mcgill MD Innis: [facility] St: REG FAX: Josette Ley [phone] -- Name: KOTA MONTES [facility] : 1960 Age/S: 62/M [address] [address] [facility] Unit: [id number] Loc: [facility] [place] [address] Phys: Pearl Mcgill MD Acct: [id number] Dis Date: Status: REG ER PHONE #: Exam Date: 08/22/2023 1812 FAX #: Reason: PE PROTOCOL EXAMS: CPT CODE: [id number] [place] [id number] CTA CHEST: Technique: Contiguous axial CT angiogram imaging acquired through the thoraxin the pulmonary arterial phase, following uncomplicated intravenous contrast administration of 100cc Isovue 300. Coronal reformmated images acquired. MIP 3D reconstructions were performed. All CT scans at this facility are performed using dose optimization techniques including the following: Automated exposure control HISTORY: PE PROTOCOL Comparison: CT chest dated June 04, 2023 Findings: There is mild coronary artery calcification. There is evidence of previous sternotomy. A few nonspecific paratracheal lymph nodes measure up to 11 mm in short axis. Subcarinal lymph nodes measure up to 8 mmin short axis. Right hilar lymph nodes measure up to 12 mm in short axis. These lymph nodes may be reactive in nature and appear to be slightly increased in size. Postsurgical minimal soft tissue stranding in the anterior mediastinum is seen below the sternotomy site. There is small bilateral pleural fluid. There is mild centrilobular emphysema in both lungs. There is mild wedge-shaped discoid atelectasis in the lower lungs but the lungs are otherwise clear. The heart is enlarged. There is no aortic aneurysm or dissection. The upper abdomen is stable. There is no adrenal mass. There is gallstones. There is no pericardial fluid. There is no evidence of embolism in the opacified pulmonary arteries. No embolism is identified. No acute osseous findings. The airways are intact. IMPRESSION: PAGE 1 Signed Report (CONTINUED) FAX: Pearl Mcgill MD Innis: [facility] St: REG FAX: Josette Ley [phone] Name: KOTA MONTES [facility] : 1960 Age/S: 62/M [address] Unit: [id number] Loc: [facility] [place] [address] Phys: Pearl Mcgill MD Acct: [id number] Dis Date: Status: REG ER PHONE #: Exam Date: 08/22/20231811 FAX #: Reason: PE PROTOCOL EXAMS: CPT CODE: [id number] [place] [id number] (Continued) 1. No evidence of pulmonary embolism. 2. New small bilateral pleural effusions with bibasilar discoid atelectasis. Cardiomegaly is again noted. ElectronicallySigned by Luke Valderrama MD on 08/22/2023 at 1828 Reported and signed by: Luke Valderrama MD CC:Pearl Mcgill MD; Josette Ley DO Technologist: Flex [facility] Trnscrd Dt/Tm: 08/22/2023 (1827) [email or web address] Electronic Signature Date/Time: 08/22/2023 (1827)Orig Print D/T: S: 08/22/2023 (1830 6.82 327.3 PAGE 2 Signed ReportTROP-I HIGH [id number] 18:22:00* Test Item Value Reference Range Interpretation Comme nts TROP-I HIGH SENSITIVITY (test code = TROPIHS) 57 pg/mL 0-78 N CAUTION: U nits of the current test methodology (pg/mL) differ from the prior test methodology (ng/mL) by a factor of 1000. POSITIVE TROPONIN HS IS IDENTIFIED THE FOLLOWING MALE > OR = 78 pg/mL FEMALE > OR = 53 pg/mL ALL CRITICAL TROPI HS HAVE BEEN IDENTIFIED MALE OR FEMALE > OR = 120 pg/mL CBC W/AUTO [id number] 16:04:00* Test Item Value Reference Range Interpretation Comme nts WHITE BLOOD CELL (test code = WBC) 11.1 10 3/uL 4.5-11.0 H RED BLOOD CELL (test code = RBC) 3.82 10 6/uL 4.30-5.90 L HEMOGLOBIN (test code = HGB) 12.2 g/dL 14.0-18.0 L HEMATOCRIT (test code = HCT) 37.9 % 40.0-55.0 L MEAN CELL VOLUME (test code = MCV) 99 fL 81-102 N MEAN CELL HGB (test code = MCH) 31.9 pg 26.0-34.0 N MEAN CELL HGB CONCENTRATION (test code = MCHC) 32.2 g/dL 31.0-37.0 N RED CELL DISTRIBUTION WIDTH (test code = RDW) 14.6 % 11.6-14.4 H PLATELET COUNT (test code = PLT) 240 10 3/uL 150-400 N MEAN PLATELET VOLUME (test code = MPV) 9.2 fL 9.0-12.6 N NEUTROPHIL % (test code = NT%) 72.0 % 33.0-76.0 N IMMATURE GRANULOCYTE % (test code = IG%) 0.5 % 0.0-1.0 N LYMPHOCYTE % (test code = LY%) 19.6 % 14.0-56.4 N MONOCYTE % (test code = MO%) 6.6 % 0.0-12.9 N EOSINOPHIL % (test code = EO%) 0.7 % 0.0-7.0 N BASOPHIL % (test code = BA%) 0.6 % 0-2.0 N NUCLEATED RBC % (test code = NRBC%) 0.2 % 0-0.2 N NEUTROPHIL # (test code = NT#) 7.96 10 3/uL 1.5-7.0 H IMMATURE GRANULOCYTE # (test code = IG#) 0.050 x10 3/uL 0.000-0.100 N LYMPHOCYTE # (test code = LY#) 2.17 10 3/uL 1.50-4.00 N MONOCYTE # (test code = MO#) 0.73 10 3/uL 0.20-0.80 N EOSINOPHIL # (test code = EO#) 0.08 10 3/uL 0.0-0.5 N BASOPHIL # (test code = BA#) 0.07 10 3/uL 0.0-0.1 N NUCLEATED RBC # (test code = NRBC#) 0.020 10 3/uL 0.000-0.012 H BASIC METABOLIC [id number] 15:58:00* Test Item Value Reference Range Interpretation Comme nts SODIUM (test code = NA) 138 mmol/L 135-145 N POTASSIUM (test code = K) 4.4 mmol/L 3.5-5.1 N CHLORIDE (test code = CL) 106 mmol/L 98-107 N CARBON DIOXIDE (test code = CO2) 25 mmol/L 21-32 N ANION GAP (test code = GAP) 11.4 2.0-16.0 N GLUCOSE (test code = GLU) 93 mg/dL 65-99 N BLOOD UREA NITROGEN (test code = BUN) 7 mg/dL 4-23 N GLOMERULAR FILTRATION RATE (test code = GFR) >=60 max estimate ml/min The Glomerular Filtration Rate is a calculated parameterbased on serum Creatinine, patient age and sex. GFR valuesless than 60 mL/min/1.73 square meters are indicative ofChronic Kidney Disease. Values less than 15 mL/min/1.73square meters indicate Kidney failure. The calculation forGFR is based on the CKD-EPI (2020) calculation. This formulais race indifferent and is the recommended formula for GFRby the National Kidney Foundation for Adults.The GFR will not calculate if the sex is unknown or if thepatient's age is <18 years. CREATININE (test code = CREAT) 0.8 mg/dL 0.6-1.5 N BUN/CREATININE RATIO (test code = BUN/CREA) 8.8 12.0-20.0 L CALCIUM (test code = CA) 9.4 mg/dL 8.5-10.1 N TROP-I HIGH [id number] 15:58:00* Test Item Value Reference Range Interpretation Comme nts TROP-I HIGH SENSITIVITY (test code = TROPIHS) 53 pg/mL 0-78 N CAUTION: U nits of the current test methodology (pg/mL) differ from the prior test methodology (ng/mL) by a factor of 1000. POSITIVE TROPONIN HS IS IDENTIFIED THE FOLLOWING MALE > OR = 78 pg/mL FEMALE > OR = 53 pg/mL ALL CRITICAL TROPI HS HAVE BEEN IDENTIFIED MALE OR FEMALE > OR = 120 pg/mL - XR CHEST 1 [id number] 15:40:00 [facility] : 1960 Sex: MPatient Name: KOTA MONTES Unit No: [id number] EXAMS: CPT CODE: [id number] XR CHEST 1 V 60229 EXAM - XR CHEST 1 V HISTORY: Chest Pain COMPARISON: 07/31/2023. FINDINGS: Cardiac silhouette is enlarged with median sternotomy wires present. Mild vascular prominence. No consolidation or large pleural effusion seen. No pneumothorax. IMPRESSION: Cardiomegaly and mild vascularprominence. at 1540 Reported and signed by: Elsa Montanez MD CC: Xena Vela Technologist: Jaimie Bustillo Time: DAP (Gy m2): Air Kerma (mGy): Trscr Dt/Tm: 08/22/2023 (1540) by:[email or web address] Electronic Signature Date/Time: 08/22/2023 (1540)Orig Print D/T: S: 08/22/2023 (4513) Name: KOTA MONTESLLO [facility] Phys: [id number] - Xena Vela [address] : 1960 Age: 62 Sex: [place] [address] Loc: [place].ERS Exam Date: 08/22/2023 Status: PRE ER PH: FAX: PAGE 1 Signed ReportBASIC METABOLIC [id number] 04:28:00* Test Item Value Reference Range Interpretation Comme nts SODIUM (test code = NA) 136 mmol/L 136-145 N POTASSIUM (test code = K) 3.8 mmol/L 3.5-5.1 N CHLORIDE (test code = CL) 96 mmol/l 98-107 L CARBON DIOXIDE (test code = CO2) 32 mmol/L 20-31 H GLUCOSE (test code = GLU) 113 mg/dL 74-106 H BLOOD UREA NITROGEN (test code = BUN) 15 mg/dL 9-23 N GLOMERULAR FILTRATION RATE (test code = GFR) >=60 max estimate mL/min >60 The Glomerular Filtration Rate is a calculated parameterbased on serum Creatinine, patient age and sex. GFR valuesless than 60 mL/min/1.73 square meters are indicative ofChronic Kidney Disease. Values less than 15 mL/min/1.73square meters indicate Kidney failure. The calculation forGFR is based on the CKD-EPI (2020) calculation. This formulais race indifferent and is the recommended formula for GFRby the National Kidney Foundation for Adults.The GFR will not calculate if the sex is unknown or if thepatient's age is <18 years. CREATININE (test code = CREAT) 1.00 mg/dL 0.70-1.30 N CALCIUM (test code = CA) 9.3 mg/dL 8.7-10.4 N [id number] 04:28:00* Test Item Value Reference Range Interpretation Comme nts MAGNESIUM (test code = MAG) 1.9 mg/dL 1.6-2.6 N - XR CHEST 1 [id number] 08:00:00 [facility] 1960 Sex: MPatient Name: KOTA MONTES Unit No: [id number] EXAMS: CPT CODE: [id number] XR CHEST 1 V 03958 CLINICAL HISTORY: ICU. LOCATION: A1 FINDINGS: Comparison is made with a previous study dated July 30, 2023. A portable AP view of the chest is dated 07/31/2023 at 4:20 AM. There is stable mild cardiomegaly. No change in tubes or lines. Previously seen interstitial prominence hasresolved. There are stable mild bibasilar atelectasis/infiltrates. No pleural effusions. No acute sk eletal or soft tissue abnormalities. IMPRESSION: 1. Previously seen interstitial prominence has resolved. There are stable mild bibasilar atelectasis/infiltrates. at 0800 Reported and signed by: ELIAN ARORA M.D. CC: Keenan Kumari MD; Mandi Delarosa MD; Kurtis Lynch MD Technologist: Nissa Gusman Fluoro Time: DAP (Gy m2): Air Kerma (mGy): Trscr Dt/Tm: 07/31/2023 (0800) by:[email or web address] Printed Date/Time: 07/31/2023 (0803) Name: KOTA MONTES [facility] Phys: Mandi Chamberlain [address] : 1960 Age: 62 Sex: [place] [address] Loc: P.0313 1 Exam Date: 07/31/2023 Status: ADM IN PH: FAX: PAGE 1 Signed ReportPROTHROMBIN [id number] 05:20:00* Test Item Value Reference Range Interpretation Comme nts PROTHROMBIN TIME PATIENT (test code = PTP) 13.2 SECONDS 10.3-12.9 H INTERNATIONAL NORMAL RATIO (test code = INR) 1.18 0.9-1.11 H INR goals are individualized based on patient specificfactors. The following are only general guidelines: Indications: INR Goal:1. Treatment of venous thromboembolism and 2.0 - 3.0 systemic anticoagulation in a variety of conditions, including atrial fibrillation and mechanical heart valves 2. Mechanical mitral and tricuspid valves, 2.5 - 3.5 systemic anticoagulation for high-risk conditions THROMBOPLASTIN TIME [id number] 05:20:00* Test Item Value Reference Range Interpretation Comme [facility] THROMBOPLASTIN TIME PARTIAL (test code = PTT) 31.0 secs 23.8-34.8 N INTERPRETATIVE D EDGARD: Therapeutic range: Unfractionated Heparin: 60-90 seconds Argatroban: 60-90 seconds [id number] 05:20:00* Test Item Value Reference Range Interpretation Comme nts FIBRINOGEN (test code = FIB) 727 mg/dL 200-400 H COMPREHENSIVE METABOLIC [id number] 04:27:00* Test Item Value Reference Range Interpretation Comme nts SODIUM (test code = NA) 135 mmol/L 136-145 L POTASSIUM (test code = K) 3.2 mmol/L 3.5-5.1 L CHLORIDE (test code = CL) 94 mmol/l 98-107 L CARBON DIOXIDE (test code = CO2) 33 mmol/L 20-31 H GLUCOSE (test code = GLU) 104 mg/dL 74-106 N BLOOD UREA NITROGEN (test code = BUN) 12 mg/dL 9-23 N GLOMERULAR FILTRATION RATE (test code = GFR) >=60 max estimate mL/min >60 The Glomerular Filtration Rate is a calculated parameterbased on serum Creatinine, patient age and sex. GFR valuesless than 60 mL/min/1.73 square meters are indicative ofChronic Kidney Disease. Values less than 15 mL/min/1.73square meters indicate Kidney failure. The calculation forGFR is based on the CKD-EPI (2020) calculation. This formulais race indifferent and is the recommended formula for GFRby the National Kidney Foundation for Adults.The GFR will not calculate if the sex is unknown or if thepatient's age is <18 years. CREATININE (test code = CREAT) 1.00 mg/dL 0.70-1.30 N TOTAL PROTEIN (test code = PROT) 6.4 g/dL 5.7-8.2 N ALBUMIN (test code = ALB) 4.4 g/dL 3.2-4.8 N CALCIUM (test code = CA) 8.8 mg/dL 8.7-10.4 N BILIRUBIN TOTAL (test code = BILT) 0.6 mg/dL 0.3-1.2 N SGOT/AST (test code = AST) 36 U/L <34 H SGPT/ALT (test code = ALT) 22 U/L 10-49 N ALKALINE PHOSPHATASE (test code = ALKP) 83.0 U/L 46-116 N [id number] 04:27:00* Test Item Value Reference Range Interpretation Comme nts PHOSPHOROUS (test code = PHOS) 4.7 mg/dL 2.4-5.1 N [id number] 04:27:00* Test Item Value Reference Range Interpretation Comme nts MAGNESIUM (test code = MAG) 1.8 mg/dL 1.6-2.6 N CBC W/AUTO [id number] 04:06:00* Test Item Value Reference Range Interpretation Comme nts WHITE BLOOD CELL (test code = WBC) 6.9 x10 3/uL 4.8-10.8 N RED BLOOD CELL (test code = RBC) 3.23 x10 6/uL 4.70-6.10 L HEMOGLOBIN (test code = HGB) 10.1 g/dL 14.0-18.0 L HEMATOCRIT (test code = HCT) 30.9 % 42.0-52.0 L MEAN CELL VOLUME (test code = MCV) 95.7 fL 80.0-94.0 H MEAN CELL HGB (test code = MCH) 31.3 pg 27-31 H MEAN CELL HGB CONCENTRATION (test code = MCHC) 32.7 G/DL 33-36.5 L RED CELL DISTRIBUTION WIDTH (test code = RDW) 13.2 % 12.9-16.9 N PLATELET COUNT (test code = PLT) 207 x10 3/uL 150-440 N MEAN PLATELET VOLUME (test c ode = MPV) 9.9 fL 8.9-12.4 N NEUTROPHIL % (test code = NT%) 64.2 % 42.2-75.2 N LYMPHOCYTE % (test code = LY%) 18.1 % 20.5-51.1 L MONOCYTE % (test code = MO%) 13.5 % 1.7-9.3 H EOSINOPHIL % (test code = EO%) 3.0 % 0.0-7.0 N BASOPHIL % (test code = BA%) 0.6 % 0-2.5 N NEUTROPHIL # (test code = NT#) 4.43 x10 3/uL 1.80-7.70 N LYMPHOCYTE # (test code = LY#) 1.25 x10 3/uL 1.00-4.80 N MONOCYTE # (test code = MO#) 0.93 x10 3/uL 0.00-0.80 H EOSINOPHIL # (test code = EO#) 0.21 x10 3/uL 0.00-0.45 N BASOPHIL # (test code = BA#) 0.04 x10 3/uL 0.0-0.20 N COMPREHENSIVE METABOLIC [id number] 11:51:00* Test Item Value Reference Range Interpretation Comme nts SODIUM (test code = NA) 134 mmol/L 136-145 L POTASSIUM (test code = K) 3.6 mmol/L 3.5-5.1 N CHLORIDE (test code = CL) 95 mmol/l 98-107 L CARBON DIOXIDE (test code = CO2) 30 mmol/L 20-31 N GLUCOSE (test code = GLU) 152 mg/dL 74-106 H BLOOD UREA NITROGEN (test code = BUN) 13 mg/dL 9-23 N GLOMERULAR FILTRATION RATE (test code = GFR) >=60 max estimate mL/min >60 The Glomerular Filtration Rate is a calculated parameterbased on serum Creatinine, patient age and sex. GFR valuesless than 60 mL/min/1.73 square meters are indicative ofChronic Kidney Disease. Values less than 15 mL/min/1.73square meters indicate Kidney failure. The calculation forGFR is based on the CKD-EPI (202) calculation. This formulais race indifferent and is the recommended formula for GFRby the National Kidney Foundation for Adults.The GFR will not calculate if the sex is unknown or if thepatient's age is <18 years. CREATININE (test code = CREAT) 0.90 mg/dL 0.70-1.30 N TOTAL PROTEIN (test code = PROT) 7.2 g/dL 5.7-8.2 N ALBUMIN (test code = ALB) 4.6 g/dL 3.2-4.8 N CALCIUM (test code = CA) 9.4 mg/dL 8.7-10.4 N BILIRUBIN TOTAL (test code = BILT) 0.7 mg/dL 0.3-1.2 N SGOT/AST (test code = AST) 28 U/L <34 N SGPT/ALT (test code = ALT) 14 U/L 10-49 N ALKALINE PHOSPHATASE (test code = ALKP) 82.0 U/L 46-116 N [id number] 11:51:00* Test Item Value Reference Range Interpretation Comme nts PHOSPHOROUS (test code = PHOS) 3.4 mg/dL 2.4-5.1 N [id number] 11:51:00* Test Item Value Reference Range Interpretation Comme nts MAGNESIUM (test code = MAG) 1.9 mg/dL 1.6-2.6 N PROTHROMBIN [id number] 11:43:00* Test Item Value Reference Range Interpretation Comme [facility] PROTHROMBIN TIME PATIENT (test code = PTP) 13.6 SECONDS 10.3-12.9 H INTERNATIONAL NORMAL RATIO (test code = INR) 1.22 0.9-1.11 H INR goals are individualized based on patient specificfactors. The following are only general guidelines: Indications: INR Goal:1. Treatment of venous thromboembolism and 2.0 - 3.0 systemic anticoagulation in a variety of conditions, including atrial fibrillation and mechanical heart valves 2. Mechanical mitral and tricuspid valves, 2.5 - 3.5 systemic anticoagulation for high-risk conditions THROMBOPLASTIN TIME [id number] 11:43:00* Test Item Value Reference Range Interpretation Comme nts THROMBOPLASTIN TIME PARTIAL (test code = PTT) 30.6 secs 23.8-34.8 N INTERPRETATIVE D EDGARD: Therapeutic range: Unfractionated Heparin: 60-90 seconds Argatroban: 60-90 seconds [id number] 11:43:00* Test Item Value Reference Range Interpretation Comme nts FIBRINOGEN (test code = FIB) 784 mg/dL 200-400 H CBC W/AUTO [id number] 11:24:00* Test Item Value Reference Range Interpretation Comme nts WHITE BLOOD CELL (test code = WBC) 9.6 x10 3/uL 4.8-10.8 N RED BLOOD CELL (test code = RBC) 3.11 x10 6/uL 4.70-6.10 L HEMOGLOBIN (test code = HGB) 9.9 g/dL 14.0-18.0 L HEMATOCRIT (test code = HCT) 28.8 % 42.0-52.0 L MEAN CELL VOLUME (test code = MCV) 92.6 fL 80.0-94.0 MEAN CELL HGB (test code = MCH) 31.8 pg 27-31 H MEAN CELL HGB CONCENTRATION (test code = MCHC) 34.4 G/DL 33-36.5 N RED CELL DISTRIBUTION WIDTH (test code = RDW) 13.3 % 12.9-16.9 N PLATELET COUNT (test code = PLT) 199 x10 3/uL 150-440 N MEAN PLATELET VOLUME (test c ode = MPV) 10.2 fL 8.9-12.4 N NEUTROPHIL % (test code = NT%) 81.3 % 42.2-75.2 H LYMPHOCYTE % (test code = LY%) 9.5 % 20.5-51.1 L MONOCYTE % (test code = MO%) 7.7 % 1.7-9.3 N EOSINOPHIL % (test code = EO%) 0.8 % 0.0-7.0 N BASOPHIL % (test code = BA%) 0.3 % 0-2.5 N NEUTROPHIL # (test code = NT#) 7.80 x10 3/uL 1.80-7.70 H LYMPHOCYTE # (test code = LY#) 0.91 x10 3/uL 1.00-4.80 L MONOCYTE # (test code = MO#) 0.74 x10 3/uL 0.00-0.80 N EOSINOPHIL # (test code = EO#) 0.08 x10 3/uL 0.00-0.45 N BASOPHIL # (test code = BA#) 0.03 x10 3/uL 0.0-0.20 N - XR CHEST 1 [id number] 08:30:00 [facility] 1960 Sex: MPatient Name: KOTA MONTES Unit No: [id number] EXAMS: CPT CODE: [id number] XR CHEST 1 V [id number] CLINICAL HISTORY: POC. LOCATION: A1 FINDINGS: Comparison is made with a previous study dated July 29, 2023. A portable AP view of the chest is dated 07/30/2023 at 4:28 AM. There is stable mild cardiomegaly. The nasogastric tube and endotracheal tube have been removed. Left central line remains in place with its tip overlying the mid SVC. There is improved aeration of the right lower lung. There are mild bibasilar atelectasis/infiltrates with underlying central vascular congestion and mild diffuse interstitial prominence. No pleural effusions are noted. No acute skeletal or soft tissue abnormalities. IMPRESSION: 1. There is improved aeration at the right lower lung. There are mild bibasilar atelectasis/infiltrates with underlying central vascular congestion and diffuse mild interstitial prominence. at 0830 Reported and signed by: ELIAN ARORA M.D. CC: Adolph Finch MD; Keenan Kumari MD; Juan VAZQUEZ Technologist: Dave Granda Fluoro Time: DAP (Gy m2): Air Kerma (mGy): Trscr Dt/Tm: 07/30/2023 (0830) by:[email or web address] Printed Date/Time: 07/30/2023 (0834) Name: KOTA MONTES [facility] Phys: [email or web address] - Adolph Finch [address] : 1960 Age: 62 Sex:[place] [id number] Loc: P.[id number] 1 Exam Date: 07/30/2023 Status: ADM IN PH: FAX: PAGE 1 Signed ReportBASIC METABOLIC [id number] 07:07:00* Test Item Value Reference Range Interpretation Comme nts SODIUM (test code = NA) 136 mmol/L 136-145 N POTASSIUM (test code = K) 3.5 mmol/L 3.5-5.1 N CHLORIDE (test code = CL) 97 mmol/l 98-107 L CARBON DIOXIDE (test code = CO2) 30 mmol/L 20-31 N GLUCOSE (test code = GLU) 92 mg/dL 74-106 N BLOOD UREA NITROGEN (test code = BUN) 11 mg/dL 9-23 N GLOMERULAR FILTRATION RATE (test code = GFR) >=60 max estimate mL/min >60 The Glomerular Filtration Rate is a calculated parameterbased on serum Creatinine, patient age and sex. GFR valuesless than 60 mL/min/1.73 square meters are indicative ofChronic Kidney Disease. Values less than 15 mL/min/1.73square meters indicate Kidney failure. The calculation forGFR is based on the CKD-EPI (2020) calculation. This formulais race indifferent and is the recommended formula for GFRby the National Kidney Foundation for Adults.The GFR will not calculate if the sex is unknown or if thepatient's age is <18 years. CREATININE (test code = CREAT) 0.80 mg/dL 0.70-1.30 N CALCIUM (test code = CA) 9.6 mg/dL 8.7-10.4 N [id number] 07:07:00* Test Item Value Reference Range Interpretation Comme nts PHOSPHOROUS (test code = PHOS) 4.5 mg/dL 2.4-5.1 N [id number] 07:07:00* Test Item Value Reference Range Interpretation Comme nts MAGNESIUM (test code = MAG) 2.4 mg/dL 1.6-2.6 N Novel Coronavirus [id number] 06:23:00* Test Item Value Reference Range Interpretation Comme [facility] Novel Coronavirus 2019 Inhouse (test code = [id number]) Negative Negative Positive resul ts are indicative of the presence vbKSJS-[id number] RNA, clinical correlation with patient historyand other diagnostic information is necessary to determinepatient infection status. Positive results do not rule outbacterial infection or co-infection with other viruses. Negative results do not preclude SARS-CoV-2 infection andshould not be used as the sole basis for patient managementdecisions. Negative results must be combined with otherclinical observations, patient history, and epidemiologicalinformation . Detection of SARS-CoV-2 RNA may be affected bysample collection methods, storage conditions, and/or stageof infection. Viral RNA mutations, vaccinations, antiviraltherapeutics, antibiotics, chemotherapeutic orimmunosuppressant drugs have not been evaluated for effectson detection. Results are for the identification of SARS-CoV-2 RNA usingreal-time (RT) polymerase chain reaction (PCR) technologyfor the qualitative detection of nucleic acids from byeKEGU-XpR-9 virus and diagnosis of SARS-CoV-2 virusinfection. It is an Emergency Use Authorization (EUA) testauthorized by the U.S. FDA. BLOOD GAS [id number] 06:06:00* Test Item Value Reference Range Interpretation Comme [facility] ARTERIAL BLOOD GAS PH (test code = PHA) 7.42 7.35-7.45 N ARTERIAL BLOOD GAS PCO2 (test code = PCO2A) 42.8 mmHg 35.0-45.0 N ARTERIAL BLOOD GAS PO2 (test code = PO2A) 64.6 mmHg 80.0-95.0 L BICARBONATE TOTAL HCO3 (test code = HCO3) 27.2 mmol/L 22.0-24.0 H BASE EXCESS (test code = UZIEL) 2.4 mmol/L See_Comment H [Automated message] The system which generated this result transmitted reference range: (+/-)2.0. The reference range was not used to interpret this result as normal/abnormal. ABG O2 SATURATION (test code = SATA) 93.0 % 95.0-100.0 L ARTERIAL FIO2 (test code = FIO2A) 28.0 % ABG VENT MODE (test code = MODEA) NASAL CANNULA ALLENS TEST (test code = ALLENS) NOT APPLICABLE SODIUM (POC) (test code = NA/ABG) 133 mmol/L 135-147 L POTASSIUM (POC) (test code = K/ABG) 3.59 mmol/L 3.6-5.2 L CHLORIDE (ARTERIAL) (test code = CL/ABG) 93 mmol/L 98-108 L GLUCOSE (test code = GLU/ABG) 90 mg/dL 70-104 N IONIZED CALCIUM (test code = CAIABG) 1.24 mmol/L 1.12-1.32 N POC LACTIC ACID (test code = POCLAC) 1.42 mmol/L 0.5-2.2 N TOTAL HGB (test code = THB) 11.2 g/dL 13.0-17.0 L CARBOXYHEMOGLOBIN (test code = HOHGBT) 0.6 % 0-5.0 N METHEMOGLOBIN (test code = METHGB) <0.8 % 0-1.5 N HHb (test code = HHB) 7.0 % TCO2 ARTERIAL (test code = TCO2A) 28.5 MMOL/L 24-30 N NT PRO-BRAIN NATRIURETIC [id number] 03:06:00* Test Item Value Reference Range Interpretation Comme nts NT PRO-BRAIN NATRIURETIC PEPTI (test code = PROBNP) 9584 pg/mL 0-210 H The followi ng cut-points have been suggested for theuse of proBNP for the diagnostic evaluation of heartfailure (HF) in patients with acute dyspnea:Modality Age Optimal Cut (years) Point Diagnos is (rule in HF) <50 450 pg/mL 50 - 75 900 pg/mL >75 1800 pg/mLExclusion (rule out HF) Age independent 300 pg/mLPerformed At: [facility] [id number] Jensen MD Ph:[phone] B-TYPE NATRIURETIC [id number] 01:18:00* Test Item Value Reference Range Interpretation Comme nts B-TYPE NATRIURETIC PEPTIDE ( test code = BNP) 597 pg/mL <100 H COMPREHENSIVE METABOLIC [id number] 01:17:00* Test Item Value Reference Range Interpretation Comme nts SODIUM (test code = NA) 135 mmol/L 136-145 L POTASSIUM (test code = K) 3.6 mmol/L 3.5-5.1 N CHLORIDE (test code = CL) 98 mmol/l 98-107 N CARBON DIOXIDE (test code = CO2) 27 mmol/L 20-31 N GLUCOSE (test code = GLU) 105 mg/dL 74-106 N BLOOD UREA NITROGEN (test code = BUN) 11 mg/dL 9-23 N GLOMERULAR FILTRATION RATE (test code = GFR) >=60 max estimate mL/min >60 The Glomerular Filtration Rate is a calculated parameterbased on serum Creatinine, patient age and sex. GFR valuesless than 60 mL/min/1.73 square meters are indicative ofChronic Kidney Disease. Values less than 15 mL/min/1.73square meters indicate Kidney failure. The calculation forGFR is based on the CKD-EPI (2020) calculation. This formulais race indifferent and is the recommended formula for GFRby the National Kidney Foundation for Adults.The GFR will not calculate if the sex is unknown or if thepatient's age is <18 years. CREATININE (test code = CREAT) 0.70 mg/dL 0.70-1.30 N TOTAL PROTEIN (test code = PROT) 6.6 g/dL 5.7-8.2 N ALBUMIN (test code = ALB) 4.2 g/dL 3.2-4.8 N CALCIUM (test code = CA) 9.2 mg/dL 8.7-10.4 N BILIRUBIN TOTAL (test code = BILT) 0.8 mg/dL 0.3-1.2 N SGOT/AST (test code = AST) 20 U/L <34 N SGPT/ALT (test code = ALT) 9 U/L 10-49 L ALKALINE PHOSPHATASE (test code = ALKP) 74.0 U/L 46-116 N [id number] 01:17:00* Test Item Value Reference Range Interpretation Comme nts PHOSPHOROUS (test code = PHOS) 4.0 mg/dL 2.4-5.1 N [id number] 01:17:00* Test Item Value Reference Range Interpretation Comme nts MAGNESIUM (test code = MAG) 2.0 mg/dL 1.6-2.6 N PROTHROMBIN [id number] 01:10:00* Test Item Value Reference Range [facility]ation [facility] PATIENT (test code = PTP) 13.5 SECONDS 10.3-12.9 H INTERNATIONAL NORMAL RATIO (test code = INR) 1.21 0.9-1.11 H INR goals are individualized based on patient specificfactors. The following are only general guidelines: Indications: INR Goal:1. Treatment of venous thromboembolism and 2.0 - 3.0 systemic anticoagulation in a variety of conditions, including atrial fibrillation and mechanical heart valves 2. Mechanical mitral and tricuspid valves, 2.5 - 3.5 systemic anticoagulation for high-risk conditions THROMBOPLASTIN TIME [id number] 01:10:00* Test Item Value Reference Range Interpretation [facility] THROMBOPLASTIN TIME PARTIAL (test code = PTT) 30.1 secs 23.8-34.8 INTERPRETATIVE D EDGARD: Therapeutic range: Unfractionated Heparin: 60-90 seconds Argatroban: 60-90 seconds [id number] 01:10:00* Test Item Value Reference Range Interpretation [facility] FIBRINOGEN (test code = FIB) 753 mg/dL 200-400 H CBC W/AUTO [id number] 00:57:00* Test Item Value Reference Range Interpretation [facility] WHITE BLOOD CELL (test code = WBC) 11.9 x10 3/uL 4.8-10.8 H RED BLOOD CELL (test code = RBC) 2.91 x10 6/uL 4.70-6.10 L HEMOGLOBIN (test code = HGB) 9.2 g/dL 14.0-18.0 L HEMATOCRIT (test code = HCT) 28.1 % 42.0-52.0 L MEAN CELL VOLUME (test code = MCV) 96.6 fL 80.0-94.0 H MEAN CELL HGB (test code = MCH) 31.6 pg 27-31 H MEAN CELL HGB CONCENTRATION (test code = MCHC) 32.7 G/DL 33-36.5 L RED CELL DISTRIBUTION WIDTH (test code = RDW) 13.4 % 12.9-16.9 N PLATELET COUNT (test code = PLT) 170 x10 3/uL 150-440 N MEAN PLATELET VOLUME (test c ode = MPV) 10.2 fL 8.9-12.4 N NEUTROPHIL % (test code = NT%) 77.8 % 42.2-75.2 H LYMPHOCYTE % (test code = LY%) 10.6 % 20.5-51.1 L MONOCYTE % (test code = MO%) 9.8 % 1.7-9.3 H EOSINOPHIL % (test code = EO%) 1.0 % 0.0-7.0 N BASOPHIL % (test code = BA%) 0.3 % 0-2.5 N NEUTROPHIL # (test code = NT#) 9.24 x10 3/uL 1.80-7.70 H LYMPHOCYTE # (test code = LY#) 1.26 x10 3/uL 1.00-4.80 N MONOCYTE # (test code = MO#) 1.17 x10 3/uL 0.00-0.80 H EOSINOPHIL # (test code = EO#) 0.12 x10 3/uL 0.00-0.45 N BASOPHIL # (test code = BA#) 0.03 x10 3/uL 0.0-0.20 N BLOOD GAS [id number] 00:56:00* Test Item Value Reference Range Interpretation Comme nts ARTERIAL BLOOD GAS PH (test code = PHA) 7.44 7.35-7.45 N ARTERIAL BLOOD GAS PCO2 (test code = PCO2A) 40.3 mmHg 35.0-45.0 N ARTERIAL BLOOD GAS PO2 (test code = PO2A) 68.4 mmHg 80.0-95.0 L BICARBONATE TOTAL HCO3 (test code = HCO3) 26.9 mmol/L 22.0-24.0 H BASE EXCESS (test code = UZIEL) 2.7 mmol/L See_Comment H [Automated message] The system which generated this result transmitted reference range: (+/-)2.0. The reference range was not used to interpret this result as normal/abnormal. ABG O2 SATURATION (test code = SATA) 94.0 % 95.0-100.0 L ARTERIAL FIO2 (test code = FIO2A) 28.0 % ABG VENT MODE (test code = MODEA) NASAL CANNULA ALLENS TEST (test code = ALLENS) No SODIUM (POC) (test code = NA/ABG) 132 mmol/L 135-147 L POTASSIUM (POC) (test code = K/ABG) 3.68 mmol/L 3.6-5.2 N CHLORIDE (ARTERIAL) (test code = CL/ABG) 95 mmol/L 98-108 L GLUCOSE (test code = GLU/ABG) 103 mg/dL 70-104 N IONIZED CALCIUM (test code = CAIABG) 1.18 mmol/L 1.12-1.32 N POC LACTIC ACID (test code = POCLAC) 2.29 mmol/L 0.5-2.2 H TOTAL HGB (test code = THB) 10.6 g/dL 13.0-17.0 L OXYHEMOGLOBIN (test code = OOHGBT) 93.2 % 92.0-98.0 N CARBOXYHEMOGLOBIN (test code = HOHGBT) 0.5 % 0-5.0 N METHEMOGLOBIN (test code = METHGB) <0.8 % 0-1.5 N HHb (test code = HHB) 6.0 % TCO2 ARTERIAL (test code = TCO2A) 28.2 MMOL/L 24-30 N BLOOD GAS [id number] 00:21:00* Test Item Value Reference Range Interpretation Comme nts ARTERIAL BLOOD GAS PH (test code = PHA) 7.44 7.35-7.45 N ARTERIAL BLOOD GAS PCO2 (test code = PCO2A) 36.5 mmHg 35.0-45.0 N ARTERIAL BLOOD GAS PO2 (test code = PO2A) 80.4 mmHg 80.0-95.0 N BICARBONATE TOTAL HCO3 (test code = HCO3) 24.5 mmol/L 22.0-24.0 H BASE EXCESS (test code = UZIEL) 0.6 mmol/L See_Comment N [Automated message] The system which generated this result transmitted reference range: (+/-)2.0. The reference range was not used to interpret this result as normal/abnormal. ABG O2 SATURATION (test code = SATA) 95.8 % 95.0-100.0 N ARTERIAL FIO2 (test code = FIO2A) 28.0 % ABG VENT MODE (test code = MODEA) NASAL CANNULA ALLENS TEST (test code = ALLENS) No SODIUM (POC) (test code = NA/ABG) 130 mmol/L 135-147 L POTASSIUM (POC) (test code = K/ABG) 3.88 mmol/L 3.6-5.2 N CHLORIDE (ARTERIAL) (test code = CL/ABG) 95 mmol/L 98-108 L GLUCOSE (test code = GLU/ABG) 107 mg/dL 70-104 H IONIZED CALCIUM (test code = CAIABG) 1.21 mmol/L 1.12-1.32 N POC LACTIC ACID (test code = POCLAC) 1.68 mmol/L 0.5-2.2 N TOTAL HGB (test code = THB) 10.5 g/dL 13.0-17.0 L OXYHEMOGLOBIN (test code = OOHGBT) 95.5 % 92.0-98.0 N CARBOXYHEMOGLOBIN (test code = HOHGBT) 0.3 % 0-5.0 N METHEMOGLOBIN (test code = METHGB) <0.8 % 0-1.5 N HHb (test code = HHB) 4.2 % TCO2 ARTERIAL (test code = TCO2A) 25.6 MMOL/L 24-30 N BASIC METABOLIC [id number] 19:17:00* Test Item Value Reference Range Interpretation Comme nts SODIUM (test code = NA) 135 mmol/L 136-145 L POTASSIUM (test code = K) 4.1 mmol/L 3.5-5.1 N CHLORIDE (test code = CL) 99 mmol/l 98-107 N CARBON DIOXIDE (test code = CO2) 26 mmol/L 20-31 N GLUCOSE (test code = GLU) 117 mg/dL 74-106 H BLOOD UREA NITROGEN (test code = BUN) 12 mg/dL 9-23 N GLOMERULAR FILTRATION RATE (test code = GFR) >=60 max estimate mL/min >60 The Glomerular Filtration Rate is a calculated parameterbased on serum Creatinine, patient age and sex. GFR valuesless than 60 mL/min/1.73 square meters are indicative ofChronic Kidney Disease. Values less than 15 mL/min/1.73square meters indicate Kidney failure. The calculation forGFR is based on the CKD-EPI (2020) calculation. This formulais race indifferent and is the recommended formula for GFRby the National Kidney Foundation for Adults.The GFR will not calculate if the sex is unknown or if thepatient's age is <18 years. CREATININE (test code = CREAT) 0.90 mg/dL 0.70-1.30 N CALCIUM (test code = CA) 9.2 mg/dL 8.7-10.4 N [id number] 19:17:00* Test Item Value Reference Range Interpretation Comme nts PHOSPHOROUS (test code = PHOS) 3.9 mg/dL 2.4-5.1 N [id number] 19:17:00* Test Item Value Reference Range Interpretation Comme nts MAGNESIUM (test code = MAG) 2.0 mg/dL 1.6-2.6 N BASIC METABOLIC [id number] 15:36:00* Test Item Value Reference Range Interpretation Comme nts SODIUM (test code = NA) 135 mmol/L 136-145 L POTASSIUM (test code = K) 4.1 mmol/L 3.5-5.1 N CHLORIDE (test code = CL) 100 mmol/l 98-107 N CARBON DIOXIDE (test code = CO2) 26 mmol/L 20-31 N GLUCOSE (test code = GLU) 127 mg/dL 74-106 H BLOOD UREA NITROGEN (test code = BUN) 12 mg/dL 9-23 N GLOMERULAR FILTRATION RATE (test code = GFR) >=60 max estimate mL/min >60 The Glomerular Filtration Rate is a calculated parameterbased on serum Creatinine, patient age and sex. GFR valuesless than 60 mL/min/1.73 square meters are indicative ofChronic Kidney Disease. Values less than 15 mL/min/1.73square meters indicate Kidney failure. The calculation forGFR is based on the CKD-EPI (2020) calculation. This formulais race indifferent and is the recommended formula for GFRby the National Kidney Foundation for Adults.The GFR will not calculate if the sex is unknown or if thepatient's age is <18 years. CREATININE (test code = CREAT) 0.90 mg/dL 0.70-1.30 N CALCIUM (test code = CA) 9.8 mg/dL 8.7-10.4 N [id number] 15:36:00* Test Item Value Reference Range Interpretation Comme nts PHOSPHOROUS (test code = PHOS) 4.1 mg/dL 2.4-5.1 N [id number] 15:36:00* Test Item Value Reference Range Interpretation Comme nts MAGNESIUM (test code = MAG) 1.7 mg/dL 1.6-2.6 N CBC W/AUTO [id number] 15:21:00* Test Item Value Reference Range Interpretation Comme nts WHITE BLOOD CELL (test code = WBC) 13.0 x10 3/uL 4.8-10.8 H RED BLOOD CELL (test code = RBC) 2.88 x10 6/uL 4.70-6.10 L HEMOGLOBIN (test code = HGB) 9.3 g/dL 14.0-18.0 L HEMATOCRIT (test code = HCT) 27.4 % 42.0-52.0 L MEAN CELL VOLUME (test code = MCV) 95.1 fL 80.0-94.0 H MEAN CELL HGB (test code = MCH) 32.3 pg 27-31 H MEAN CELL HGB CONCENTRATION (test code = MCHC) 33.9 G/DL 33-36.5 N RED CELL DISTRIBUTION WIDTH (test code = RDW) 13.5 % 12.9-16.9 N PLATELET COUNT (test code = PLT) 153 x10 3/uL 150-440 N MEAN PLATELET VOLUME (test code = MPV) 9.9 fL 8.9-12.4 N NEUTROPHIL % (test code = NT%) 84.7 % 42.2-75.2 H LYMPHOCYTE % (test code = LY%) 5.5 % 20.5-51.1 L MONOCYTE % (test code = MO%) 8.6 % 1.7-9.3 N EOSINOPHIL % (test code = EO%) 0.5 % 0.0-7.0 N BASOPHIL % (test code = BA%) 0.2 % 0-2.5 N NEUTROPHIL # (test code = NT#) 11.03 x10 3/uL 1.80-7.70 H LYMPHOCYTE # (test code = LY#) 0.72 x10 3/uL 1.00-4.80 L MONOCYTE # (test code = MO#) 1.12 x10 3/uL 0.00-0.80 H EOSINOPHIL # (test code = EO#) 0.07 x10 3/uL 0.00-0.45 N BASOPHIL # (test code = BA#) 0.03 x10 3/uL 0.0-0.20 N BLOOD GAS [id number] 11:52:00* Test Item Value Reference Range Interpretation Comme [facility] ARTERIAL BLOOD GAS PH (test code = PHA) 7.33 7.35-7.45 L ARTERIAL BLOOD GAS PCO2 (test code = PCO2A) 50.6 mmHg 35.0-45.0 H ARTERIAL BLOOD GAS PO2 (test code = PO2A) 230.7 mmHg 80.0-95.0 H BICARBONATE TOTAL HCO3 (test code = HCO3) 25.8 mmol/L 22.0-24.0 H BASE EXCESS (test code = UZIEL) -0.6 mmol/L See_Comment N [Automated message] The system which generated this result transmitted reference range: (+/-)2.0. The reference range was not used to interpret this result as normal/abnormal. ABG O2 SATURATION (test code = SATA) 99.6 % 95.0-100.0 N ARTERIAL FIO2 (test code = FIO2A) 80.0 % ABG VENT MODE (test code = MODEA) Ventilator ALLENS TEST (test code = ALLENS) NOT APPLICABLE SODIUM (POC) (test code = NA/ABG) 133 mmol/L 135-147 L POTASSIUM (POC) (test code = K/ABG) 3.82 mmol/L 3.6-5.2 N CHLORIDE (ARTERIAL) (test code = CL/ABG) 97 mmol/L 98-108 L GLUCOSE (test code = GLU/ABG) 138 mg/dL 70-104 H IONIZED CALCIUM (test code = CAIABG) 1.22 mmol/L 1.12-1.32 N POC LACTIC ACID (test code = POCLAC) 2.81 mmol/L 0.5-2.2 H TOTAL HGB (test code = THB) 11.0 g/dL 13.0-17.0 L OXYHEMOGLOBIN (test code = OOHGBT) 99.3 % 92.0-98.0 H CARBOXYHEMOGLOBIN (test code = HOHGBT) 0.2 % 0-5.0 N METHEMOGLOBIN (test code = METHGB) <0.8 % 0-1.5 N HHb (test code = HHB) 0.4 % TCO2 ARTERIAL (test code = TCO2A) 27.4 MMOL/L 24-30 N VENOUS BLOOD [id number] 11:49:00* Test Item Value Reference Range Interpretation Comme [facility] VENOUS BLOOD GAS PH (test code = PHV) 7.29 7.35-7.45 L VENOUS BLOOD GAS PCO2 (test code = PCO2V) 54.7 mmHg See_Comment [Automated messa ge] The system which generated this result transmitted reference range: 46. The reference range was not used to interpret this result as normal/abnormal. VENOUS BLOOD GAS PO2 (test code = PO2V) 44.4 mmHg See_Comment [Automated messa ge] The system which generated this result transmitted reference range: 40. The reference range was not used to interpret this result as normal/abnormal. VBG HCO3 (test code = HCO3V) 26 meq/L VBG BASE EXCESS (test code = NATALYA) -1.2 MMOL/L VENOUS BLOOD GAS O2 SAT (test code = O2SATV) 74 % See_Comment [Automated messa ge] The system which generated this result transmitted reference range: 75. The reference range was not used to interpret this result as normal/abnormal. VENOUS BLOOD GAS TYPE (test code = TYPEV) Venous VENOUS BLOOD GAS FIO2 (test code = FIO2V) 80.0 % VBG VENT MODE (test code = MODEV) Ventilator BLOOD GAS [id number] 11:49:00* Test Item Value Reference Range Interpretation Comme [facility] ARTERIAL BLOOD GAS PH (test code = PHA) 7.34 7.35-7.45 L ARTERIAL BLOOD GAS PCO2 (test code = PCO2A) 40.5 mmHg 35.0-45.0 N ARTERIAL BLOOD GAS PO2 (test code = PO2A) 66.3 mmHg 80.0-95.0 L BICARBONATE TOTAL HCO3 (test code = HCO3) 21.1 mmol/L 22.0-24.0 L BASE EXCESS (test code = UZIEL) -4.4 mmol/L See_Comment L [Automated message] The system which generated this result transmitted reference range: (+/-)2.0. The reference range was not used to interpret this result as normal/abnormal. ABG O2 SATURATION (test code = SATA) 92.0 % 95.0-100.0 L ARTERIAL FIO2 (test code = FIO2A) 60.0 % ABG VENT MODE (test code = MODEA) Ventilator ALLENS TEST (test code = ALLENS) NOT APPLICABLE SODIUM (POC) (test code = NA/ABG) 133 mmol/L 135-147 L POTASSIUM (POC) (test code = K/ABG) 3.83 mmol/L 3.6-5.2 N CHLORIDE (ARTERIAL) (test code = CL/ABG) 102 mmol/L 98-108 N GLUCOSE (test code = GLU/ABG) 94 mg/dL 70-104 N IONIZED CALCIUM (test code = CAIABG) 1.15 mmol/L 1.12-1.32 N POC LACTIC ACID (test code = POCLAC) 0.95 mmol/L 0.5-2.2 N TOTAL HGB (test code = THB) 10.5 g/dL 13.0-17.0 L OXYHEMOGLOBIN (test code = OOHGBT) 90.9 % 92.0-98.0 L CARBOXYHEMOGLOBIN (test code = HOHGBT) 0.8 % 0-5.0 N METHEMOGLOBIN (test code = METHGB) <0.8 % 0-1.5 N HHb (test code = HHB) 7.9 % TCO2 ARTERIAL (test code = TCO2A) 22.4 MMOL/L 24-30 L BLOOD GAS [id number] 11:48:00* Test Item Value Reference Range Interpretation Comme nts ARTERIAL BLOOD GAS PH (test code = PHA) 7.36 7.35-7.45 N ARTERIAL BLOOD GAS PCO2 (test code = PCO2A) 40.7 mmHg 35.0-45.0 N ARTERIAL BLOOD GAS PO2 (test code = PO2A) 81.2 mmHg 80.0-95.0 N BICARBONATE TOTAL HCO3 (test code = HCO3) 22.4 mmol/L 22.0-24.0 N BASE EXCESS (test code = UZIEL) -2.9 mmol/L See_Comment L [Automated message] The system which generated this result transmitted reference range: (+/-)2.0. The reference range was not used to interpret this result as normal/abnormal. ABG O2 SATURATION (test code = SATA) 95.5 % 95.0-100.0 N ARTERIAL FIO2 (test code = FIO2A) 80.0 % ABG VENT MODE (test code = MODEA) Ventilator ALLENS TEST (test code = ALLENS) NOT APPLICABLE SODIUM (POC) (test code = NA/ABG) 133 mmol/L 135-147 L POTASSIUM (POC) (test code = K/ABG) 3.93 mmol/L 3.6-5.2 N CHLORIDE (ARTERIAL) (test code = CL/ABG) 101 mmol/L 98-108 N GLUCOSE (test code = GLU/ABG) 97 mg/dL 70-104 N IONIZED CALCIUM (test code = CAIABG) 1.20 mmol/L 1.12-1.32 N POC LACTIC ACID (test code = POCLAC) 1.08 mmol/L 0.5-2.2 N TOTAL HGB (test code = THB) 10.6 g/dL 13.0-17.0 L OXYHEMOGLOBIN (test code = OOHGBT) 95.3 % 92.0-98.0 N CARBOXYHEMOGLOBIN (test code = HOHGBT) 0.1 % 0-5.0 N METHEMOGLOBIN (test code = METHGB) <0.8 % 0-1.5 N HHb (test code = HHB) 4.5 % TCO2 ARTERIAL (test code = TCO2A) 23.6 MMOL/L 24-30 L BLOOD GAS [id number] 11:47:00* Test Item Value Reference Range Interpretation Comme nts ARTERIAL BLOOD GAS PH (test code = PHA) 7.37 7.35-7.45 N ARTERIAL BLOOD GAS PCO2 (test code = PCO2A) 40.3 mmHg 35.0-45.0 N ARTERIAL BLOOD GAS PO2 (test code = PO2A) 71.7 mmHg 80.0-95.0 L BICARBONATE TOTAL HCO3 (test code = HCO3) 22.9 mmol/L 22.0-24.0 N BASE EXCESS (test code = UZIEL) -2.1 mmol/L See_Comment L [Automated message] The system which generated this result transmitted reference range: (+/-)2.0. The reference range was not used to interpret this result as normal/abnormal. ABG O2 SATURATION (test code = SATA) 94.3 % 95.0-100.0 L ARTERIAL FIO2 (test code = FIO2A) 60.0 % ABG VENT MODE (test code = MODEA) Ventilator ALLENS TEST (test code = ALLENS) NOT APPLICABLE SODIUM (POC) (test code = NA/ABG) 133 mmol/L 135-147 L POTASSIUM (POC) (test code = K/ABG) 3.85 mmol/L 3.6-5.2 N CHLORIDE (ARTERIAL) (test code = CL/ABG) 101 mmol/L 98-108 N GLUCOSE (test code = GLU/ABG) 97 mg/dL 70-104 N IONIZED CALCIUM (test code = CAIABG) 1.24 mmol/L 1.12-1.32 N POC LACTIC ACID (test code = POCLAC) 1.10 mmol/L 0.5-2.2 N TOTAL HGB (test code = THB) 10.7 g/dL 13.0-17.0 L OXYHEMOGLOBIN (test code = OOHGBT) 93.9 % 92.0-98.0 N CARBOXYHEMOGLOBIN (test code = HOHGBT) 0.2 % 0-5.0 N METHEMOGLOBIN (test code = METHGB) <0.8 % 0-1.5 N HHb (test code = HHB) 5.7 % TCO2 ARTERIAL (test code = TCO2A) 24.2 MMOL/L 24-30 N VENOUS BLOOD [id number] 11:47:00* Test Item Value Reference Range Interpretation Comme nts VENOUS BLOOD GAS PH (test code = PHV) 7.28 7.35-7.45 L VENOUS BLOOD GAS PCO2 (test code = PCO2V) 49.5 mmHg See_Comment [Automated [employer]] The system which generated this result transmitted reference range: 46. The reference range was not used to interpret this result as normal/abnormal. VENOUS BLOOD GAS PO2 (test code = PO2V) 36.3 mmHg See_Comment [Automated [employer]] The system which generated this result transmitted reference range: 40. The reference range was not used to interpret this result as normal/abnormal. VBG HCO3 (test code = HCO3V) 23 meq/L VBG BASE EXCESS (test code = NATALYA) -4.1 MMOL/L VENOUS BLOOD GAS O2 SAT (test code = O2SATV) 64 % See_Comment [Automated [employer]] The system which generated this result transmitted reference range: 75. The reference range was not used to interpret this result as normal/abnormal. VENOUS BLOOD GAS TYPE (test code = TYPEV) Venous VENOUS BLOOD GAS FIO2 (test code = FIO2V) 50.0 % VBG VENT MODE (test code = MODEV) Ventilator VENOUS BLOOD [id number] 11:46:00* Test Item Value Reference Range Interpretation Comme nts VENOUS BLOOD GAS PH (test code = PHV) 7.31 7.35-7.45 L VENOUS BLOOD GAS PCO2 (test code = PCO2V) 50.1 mmHg See_Comment [Automated messa ge] The system which generated this result transmitted reference range: 46. The reference range was not used to interpret this result as normal/abnormal. VENOUS BLOOD GAS PO2 (test code = PO2V) 37.5 mmHg See_Comment [Automated messa ge] The system which generated this result transmitted reference range: 40. The reference range was not used to interpret this result as normal/abnormal. VBG HCO3 (test code = HCO3V) 25 meq/L VBG BASE EXCESS (test code = NATALYA) -1.7 MMOL/L VENOUS BLOOD GAS O2 SAT (test code = O2SATV) 68 % See_Comment [Automated messa ge] The system which generated this result transmitted reference range: 75. The reference range was not used to interpret this result as normal/abnormal. VENOUS BLOOD GAS TYPE (test code = TYPEV) Venous VENOUS BLOOD GAS FIO2 (test code = FIO2V) 60.0 % VBG VENT MODE (test code = MODEV) Ventilator [id number] 08:52:00* Test Item Value Reference Range Interpretation Comme nts PHOSPHOROUS (test code = PHOS) 4.6 mg/dL 2.4-5.1 N [id number] 08:52:00* Test Item Value Reference Range Interpretation Comme nts MAGNESIUM (test code = MAG) 2.0 mg/dL 1.6-2.6 N THROMBOPLASTIN TIME [id number] 08:37:00* Test Item Value Reference Range Interpretation Comme nts THROMBOPLASTIN TIME PARTIAL (test code = PTT) 75.8 secs 23.8-34.8 H INTERPRETATIVE D EDGARD: Therapeutic range: Unfractionated Heparin: 60-90 seconds Argatroban: 60-90 seconds BASIC METABOLIC [id number] 08:24:00* Test Item Value Reference Range Interpretation Comme nts SODIUM (test code = NA) 134 mmol/L 136-145 L POTASSIUM (test code = K) 3.8 mmol/L 3.5-5.1 N CHLORIDE (test code = CL) 99 mmol/l 98-107 N CARBON DIOXIDE (test code = CO2) 26 mmol/L 20-31 N GLUCOSE (test code = GLU) 132 mg/dL 74-106 H BLOOD UREA NITROGEN (test code = BUN) 9 mg/dL 9-23 N GLOMERULAR FILTRATION RATE (test code = GFR) >=60 max estimate mL/min >60 The Glomerular Filtration Rate is a calculated parameterbased on serum Creatinine, patient age and sex. GFR valuesless than 60 mL/min/1.73 square meters are indicative ofChronic Kidney Disease. Values less than 15 mL/min/1.73square meters indicate Kidney failure. The calculation forGFR is based on the CKD-EPI (2020) calculation. This formulais race indifferent and is the recommended formula for GFRby the National Kidney Foundation for Adults.The GFR will not calculate if the sex is unknown or if thepatient's age is <18 years. CREATININE (test code = CREAT) 0.80 mg/dL 0.70-1.30 N CALCIUM (test code = CA) 9.0 mg/dL 8.7-10.4 N - XR CHEST 1 [id number] 07:27:00 [facility] 1960 Sex: MPatient Name: KOTA MONTES Unit No: [id number] EXAMS: CPT CODE: [id number] XR CHEST 1 V [id number] CLINICAL HISTORY: POC. LOCATION: A1 FINDINGS: Comparison is made with a previous study dated July 28, 2023. A portable AP view of the chest is dated 07/29/2023 at 4:10 AM. There is stable mild cardiomegaly. No change in tubes or lines. The Impella device appears appropriately positioned. There is central vascular congestion and interstitial prominence. There is improved aeration of the right lower lobe. Moderate infiltrative changes remain at the right mid and lower lung. No pleural effusions are noted. No acute skeletal or soft tissue abnormalities. IMPRESSION: 1. Thereis improved aeration of the right lower lobe. Moderate infiltrative changes remain at the right midand lower lung. at 0727 Reported and signed by: ELIAN ARORA M.D. CC: Keenan Kumari MD; Kurtis Lynch MD; Annabelle Zazueta MD Technologist: Dave Granda Fluoro Time: DAP (Gy m2): Air Kerma (mGy): Trscr Dt/Tm: 07/29/2023 (726) by:[email or web address] Printed Date/Time: 07/29/2023 (729) Name: KOTA MONTES OHARA [facility] Phys: Annabelle Sims MD [address] : 1960 Age: 62 Sex: [place] [address] [id number] Loc: P.0313 1 Exam Date: 07/29/2023 Status: ADM IN PH: FAX: PAGE 1 Signed ReportBLOOD GAS [id number] 07:06:00* Test Item Value Reference Range Interpretation Comme nts ARTERIAL BLOOD GAS PH (test code = PHA) 7.42 7.35-7.45 N ARTERIAL BLOOD GAS PCO2 (test code = PCO2A) 37.5 mmHg 35.0-45.0 N ARTERIAL BLOOD GAS PO2 (test code = PO2A) 87.9 mmHg 80.0-95.0 N BICARBONATE TOTAL HCO3 (test code = HCO3) 23.6 mmol/L 22.0-24.0 N BASE EXCESS (test code = UZIEL) -0.7 mmol/L See_Comment N [Automated message] The system which generated this result transmitted reference range: (+/-)2.0. The reference range was not used to interpret this result as normal/abnormal. ABG O2 SATURATION (test code = SATA) 96.6 % 95.0-100.0 N ARTERIAL FIO2 (test code = FIO2A) 80.0 % ABG VENT MODE (test code = MODEA) Ventilator ALLENS TEST (test code = ALLENS) No SODIUM (POC) (test code = NA/ABG) 132 mmol/L 135-147 L POTASSIUM (POC) (test code = K/ABG) 3.76 mmol/L 3.6-5.2 N CHLORIDE (ARTERIAL) (test code = CL/ABG) 96 mmol/L 98-108 L GLUCOSE (test code = GLU/ABG) 130 mg/dL 70-104 H IONIZED CALCIUM (test code = CAIABG) 1.21 mmol/L 1.12-1.32 N POC LACTIC ACID (test code = POCLAC) 1.20 mmol/L 0.5-2.2 N TOTAL HGB (test code = THB) 10.9 g/dL 13.0-17.0 L OXYHEMOGLOBIN (test code = OOHGBT) 96.3 % 92.0-98.0 N CARBOXYHEMOGLOBIN (test code = HOHGBT) 0.3 % 0-5.0 N METHEMOGLOBIN (test code = METHGB) <0.8 % 0-1.5 N HHb (test code = HHB) 3.4 % TCO2 ARTERIAL (test code = TCO2A) 24.7 MMOL/L 24-30 N [id number] 05:14:00* Test Item Value Reference Range Interpretation Comme nts POTASSIUM (test code = K) 4.7 mmol/L 3.5-5.1 [id number] 05:14:00* Test Item Value Reference Range Interpretation Comme nts MAGNESIUM (test code = MAG) 1.7 mg/dL 1.6-2.6 N VENOUS BLOOD [id number] 04:36:00* Test Item Value Reference Range Interpretation Comme nts VENOUS BLOOD GAS PH (test code = PHV) 7.42 7.35-7.45 N VENOUS BLOOD GAS PCO2 (test code = PCO2V) 39.5 mmHg See_Comment [Automated [employer]] The system which generated this result transmitted reference range: 46. The reference range was not used to interpret this result as normal/abnormal. VENOUS BLOOD GAS PO2 (test code = PO2V) 33.5 mmHg See_Comment [Automated messa ge] The system which generated this result transmitted reference range: 40. The reference range was not used to interpret this result as normal/abnormal. VBG HCO3 (test code = HCO3V) 25 meq/L VBG BASE EXCESS (test code = NATALYA) 0.5 MMOL/L VENOUS BLOOD GAS O2 SAT (test code = O2SATV) 69 % See_Comment [Automated messa ge] The system which generated this result transmitted reference range: 75. The reference range was not used to interpret this result as normal/abnormal. VENOUS BLOOD GAS TYPE (test code = TYPEV) Venous VENOUS BLOOD GAS FIO2 (test code = FIO2V) 80.0 % VBG VENT MODE (test code = MODEV) Ventilator BLOOD GAS [id number] 04:35:00* Test Item Value Reference Range Interpretation Comme nts ARTERIAL BLOOD GAS PH (test code = PHA) 7.47 7.35-7.45 H ARTERIAL BLOOD GAS PCO2 (test code = PCO2A) 31.1 mmHg 35.0-45.0 L ARTERIAL BLOOD GAS PO2 (test code = PO2A) 86.3 mmHg 80.0-95.0 N BICARBONATE TOTAL HCO3 (test code = HCO3) 22.2 mmol/L 22.0-24.0 N BASE EXCESS (test code = UZIEL) -0.8 mmol/L See_Comment N [Automated message] The system which generated this result transmitted reference range: (+/-)2.0. The reference range was not used to interpret this result as normal/abnormal. ABG O2 SATURATION (test code = SATA) 97.1 % 95.0-100.0 N ARTERIAL FIO2 (test code = FIO2A) 80.0 % ABG VENT MODE (test code = MODEA) Ventilator ALLENS TEST (test code = ALLENS) No SODIUM (POC) (test code = NA/ABG) 133 mmol/L 135-147 L POTASSIUM (POC) (test code = K/ABG) 3.53 mmol/L 3.6-5.2 L CHLORIDE (ARTERIAL) (test code = CL/ABG) 99 mmol/L 98-108 N GLUCOSE (test code = GLU/ABG) 105 mg/dL 70-104 H IONIZED CALCIUM (test code = CAIABG) 1.19 mmol/L 1.12-1.32 N POC LACTIC ACID (test code = POCLAC) 1.23 mmol/L 0.5-2.2 N TOTAL HGB (test code = THB) 10.8 g/dL 13.0-17.0 L OXYHEMOGLOBIN (test code = OOHGBT) 96.8 % 92.0-98.0 N CARBOXYHEMOGLOBIN (test code = HOHGBT) 0.3 % 0-5.0 N METHEMOGLOBIN (test code = METHGB) <0.8 % 0-1.5 N HHb (test code = HHB) 2.9 % TCO2 ARTERIAL (test code = TCO2A) 23.1 MMOL/L 24-30 L [id number] 01:25:00* Test Item Value Reference Range Interpretation Comme nts TROPONIN-I (test code = TROPI) 551.0 pg/mL 38.73-80.22 HH Critical Value r eported toFirst Name:SANJAY Last Name:MALLY READ BACK AND VERIFIEDby [id number], on 07/29/23, @ 0125. COMPREHENSIVE METABOLIC [id number] 01:24:00* Test Item Value Reference Range Interpretation Comme nts SODIUM (test code = NA) 136 mmol/L 136-145 N POTASSIUM (test code = K) 3.5 mmol/L 3.5-5.1 N CHLORIDE (test code = CL) 101 mmol/l 98-107 N CARBON DIOXIDE (test code = CO2) 24 mmol/L 20-31 N GLUCOSE (test code = GLU) 106 mg/dL 74-106 N BLOOD UREA NITROGEN (test code = BUN) 10 mg/dL 9-23 N GLOMERULAR FILTRATION RATE (test code = GFR) >=60 max estimate mL/min >60 The Glomerular Filtration Rate is a calculated parameterbased on serum Creatinine, patient age and sex. GFR valuesless than 60 mL/min/1.73 square meters are indicative ofChronic Kidney Disease. Values less than 15 mL/min/1.73square meters indicate Kidney failure. The calculation forGFR is based on the CKD-EPI (2020) calculation. This formulais race indifferent and is the recommended formula for GFRby the National Kidney Foundation for Adults.The GFR will not calculate if the sex is unknown or if thepatient's age is <18 years. CREATININE (test code = CREAT) 0.80 mg/dL 0.70-1.30 N TOTAL PROTEIN (test code = PROT) 6.4 g/dL 5.7-8.2 N ALBUMIN (test code = ALB) 4.3 g/dL 3.2-4.8 N CALCIUM (test code = CA) 9.7 mg/dL 8.7-10.4 N BILIRUBIN TOTAL (test code = BILT) 1.0 mg/dL 0.3-1.2 N SGOT/AST (test code = AST) 19 U/L <34 N SGPT/ALT (test code = ALT) < 7 U/L 10-49 L ALKALINE PHOSPHATASE (test code = ALKP) 67.0 U/L 46-116 N [id number] 01:24:00* Test Item Value Reference Range Interpretation Comme nts PHOSPHOROUS (test code = PHOS) 3.9 mg/dL 2.4-5.1 N LACTIC DEHYDROGENASE(LDH)[id number] 01:24:00* Test Item Value Reference Range Interpretation Comme nts LACTIC DEHYDROGENASE(LDH) (t est code = LDH) 351 U/L 120-246 H [id number] 01:24:00* Test Item Value Reference Range Interpretation Comme nts MAGNESIUM (test code = MAG) 2.0 mg/dL 1.6-2.6 N PROTHROMBIN [id number] 01:19:00* Test Item Value Reference Range Interpretation Comme nts PROTHROMBIN TIME PATIENT (test code = PTP) 13.2 SECONDS 10.3-12.9 H INTERNATIONAL NORMAL RATIO (test code = INR) 1.18 0.9-1.11 H INR goals are individualized based on patient specificfactors. The following are only general guidelines: Indications: INR Goal:1. Treatment of venous thromboembolism and 2.0 - 3.0 systemic anticoagulation in a variety of conditions, including atrial fibrillation and mechanical heart valves 2. Mechanical mitral and tricuspid valves, 2.5 - 3.5 systemic anticoagulation for high-risk conditions THROMBOPLASTIN TIME [id number] 01:19:00* Test Item Value Reference Range Interpretation Comme nts THROMBOPLASTIN TIME PARTIAL (test code = PTT) 71.4 secs 23.8-34.8 H INTERPRETATIVE D EDGARD: Therapeutic range: Unfractionated Heparin: 60-90 seconds Argatroban: 60-90 seconds [id number] 01:19:00* Test Item Value Reference Range Interpretation Comme nts FIBRINOGEN (test code = FIB) 688 mg/dL 200-400 H CBC W/AUTO [id number] 01:15:00* Test Item Value Reference Range Interpretation Comme nts WHITE BLOOD CELL (test code = WBC) 10.8 x10 3/uL 4.8-10.8 N RED BLOOD CELL (test code = RBC) 2.97 x10 6/uL 4.70-6.10 L HEMOGLOBIN (test code = HGB) 9.6 g/dL 14.0-18.0 L HEMATOCRIT (test code = HCT) 29.0 % 42.0-52.0 L MEAN CELL VOLUME (test code = MCV) 97.6 fL 80.0-94.0 H MEAN CELL HGB (test code = MCH) 32.3 pg 27-31 H MEAN CELL HGB CONCENTRATION (test code = MCHC) 33.1 G/DL 33-36.5 N RED CELL DISTRIBUTION WIDTH (test code = RDW) 13.6 % 12.9-16.9 N PLATELET COUNT (test code = PLT) 158 x10 3/uL 150-440 N MEAN PLATELET VOLUME (test c ode = MPV) 9.9 fL 8.9-12.4 N NEUTROPHIL % (test code = NT%) 74.0 % 42.2-75.2 N LYMPHOCYTE % (test code = LY%) 14.8 % 20.5-51.1 L MONOCYTE % (test code = MO%) 9.2 % 1.7-9.3 N EOSINOPHIL % (test code = EO%) 1.0 % 0.0-7.0 N BASOPHIL % (test code = BA%) 0.4 % 0-2.5 N NEUTROPHIL # (test code = NT#) 7.99 x10 3/uL 1.80-7.70 H LYMPHOCYTE # (test code = LY#) 1.60 x10 3/uL 1.00-4.80 N MONOCYTE # (test code = MO#) 0.99 x10 3/uL 0.00-0.80 H EOSINOPHIL # (test code = EO#) 0.11 x10 3/uL 0.00-0.45 N BASOPHIL # (test code = BA#) 0.04 x10 3/uL 0.0-0.20 N Comments to Phleb: POCPROTHROMBIN [id number] 15:23:00* Test Item Value Reference Range Interpretation Comme nts PROTHROMBIN TIME PATIENT (test code = PTP) 12.6 SECONDS 10.3-12.9 N INTERNATIONAL NORMAL RATIO (test code = INR) 1.13 0.9-1.11 H INR goals are individualized based on patient specificfactors. The following are only general guidelines: Indications: INR Goal:1. Treatment of venous thromboembolism and 2.0 - 3.0 systemic anticoagulation in a variety of conditions, including atrial fibrillation and mechanical heart valves 2. Mechanical mitral and tricuspid valves, 2.5 - 3.5 systemic anticoagulation for high-risk conditions THROMBOPLASTIN TIME [id number] 15:23:00* Test Item Value Reference Range Interpretation Comme [facility] THROMBOPLASTIN TIME PARTIAL (test code = PTT) 63.1 secs 23.8-34.8 H INTERPRETATIVE D EDGARD: Therapeutic range: Unfractionated Heparin: 60-90 seconds Argatroban: 60-90 seconds [id number] 15:23:00* Test Item Value Reference Range Interpretation Comme nts FIBRINOGEN (test code = FIB) 535 mg/dL 200-400 H BASIC METABOLIC [id number] 15:07:00* Test Item Value Reference Range Interpretation Comme nts SODIUM (test code = NA) 138 mmol/L 136-145 N POTASSIUM (test code = K) 3.9 mmol/L 3.5-5.1 N CHLORIDE (test code = CL) 105 mmol/l 98-107 N CARBON DIOXIDE (test code = CO2) 23 mmol/L 20-31 N GLUCOSE (test code = GLU) 98 mg/dL 74-106 N BLOOD UREA NITROGEN (test code = BUN) 10 mg/dL 9-23 N GLOMERULAR FILTRATION RATE (test code = GFR) >=60 max estimate mL/min >60 The Glomerular Filtration Rate is a calculated parameterbased on serum Creatinine, patient age and sex. GFR valuesless than 60 mL/min/1.73 square meters are indicative ofChronic Kidney Disease. Values less than 15 mL/min/1.73square meters indicate Kidney failure. The calculation forGFR is based on the CKD-EPI (2020) calculation. This formulais race indifferent and is the recommended formula for GFRby the National Kidney Foundation for Adults.The GFR will not calculate if the sex is unknown or if thepatient's age is <18 years. CREATININE (test code = CREAT) 0.90 mg/dL 0.70-1.30 N CALCIUM (test code = CA) 8.8 mg/dL 8.7-10.4 N [id number] 15:07:00* Test Item Value Reference Range Interpretation Comme nts PHOSPHOROUS (test code = PHOS) 4.7 mg/dL 2.4-5.1 N [id number] 15:07:00* Test Item Value Reference Range Interpretation Comme nts MAGNESIUM (test code = MAG) 1.8 mg/dL 1.6-2.6 N CBC W/AUTO [id number] 14:56:00* Test Item Value Reference Range Interpretation Comme nts WHITE BLOOD CELL (test code = WBC) 13.2 x10 3/uL 4.8-10.8 H RED BLOOD CELL (test code = RBC) 2.90 x10 6/uL 4.70-6.10 L HEMOGLOBIN (test code = HGB) 9.4 g/dL 14.0-18.0 L HEMATOCRIT (test code = HCT) 28.6 % 42.0-52.0 L MEAN CELL VOLUME (test code = MCV) 98.6 fL 80.0-94.0 H MEAN CELL HGB (test code = MCH) 32.4 pg 27-31 H MEAN CELL HGB CONCENTRATION (test code = MCHC) 32.9 G/DL 33-36.5 L RED CELL DISTRIBUTION WIDTH (test code = RDW) 13.8 % 12.9-16.9 N PLATELET COUNT (test code = PLT) 165 x10 3/uL 150-440 N MEAN PLATELET VOLUME (test code = MPV) 9.5 fL 8.9-12.4 N NEUTROPHIL % (test code = NT%) 84.5 % 42.2-75.2 H LYMPHOCYTE % (test code = LY%) 6.4 % 20.5-51.1 L MONOCYTE % (test code = MO%) 7.9 % 1.7-9.3 N EOSINOPHIL % (test code = EO%) 0.4 % 0.0-7.0 N BASOPHIL % (test code = BA%) 0.3 % 0-2.5 N NEUTROPHIL # (test code = NT#) 11.14 x10 3/uL 1.80-7.70 H LYMPHOCYTE # (test code = LY#) 0.85 x10 3/uL 1.00-4.80 L MONOCYTE # (test code = MO#) 1.04 x10 3/uL 0.00-0.80 H EOSINOPHIL # (test code = EO#) 0.05 x10 3/uL 0.00-0.45 N BASOPHIL # (test code = BA#) 0.04 x10 3/uL 0.0-0.20 N - XR CHEST 1 [id number] 09:15:00 [facility] 1960 Sex: MPatient Name: KOTA MONTES Unit No: [id number] EXAMS: CPT CODE: [id number] XR CHEST 1 V [id number] CLINICAL HISTORY: DAILY. LOCATION: A1 FINDINGS: Comparison is made with a previous study dated July 27, 2023. A portable AP view of the chest is dated 07/28/2023 at 4:12 AM. There is stable mild cardiomegaly. No change in tubes or lines. Impella device remains appropriately positioned. There is increased atelectasis within the right lower lobe with increased partial collapseof the right lower lobe. No definite pleural effusions. No acute skeletal or soft tissue abnormalities. IMPRESSION: 1. There is increased atelectasis within the right lower lobe with increased partial collapse of the right lower lobe. at 0915 Reported and signed by: ELIAN ARORA M.D. CC: Keenan Kumari MD; Kurtis Lynch MD; Ollie VAZQUEZ Technologist: Dave Granda Fluoro Time: DAP (Gy m2): Air Kerma (mGy): Trscr Dt/Tm: 07/28/2023 (0915) by:[email or web address] Printed Date/Time: 07/28/2023 (0918) Name: KOTA MONTES OHARA [facility] Phys: Annabelle Sims MD [id number] : 1960 Age: 62 Sex: [place] [id number] Loc: [id number] 1 Exam Date: 07/28/2023 Status: ADM IN PH: FAX: PAGE 1 Signed ReportPROTHROMBIN TIME 2023-07-28 08:11:00* Test Item Value Reference Range Interpretation Comme nts PROTHROMBIN TIME PATIENT (test code = PTP) 12.2 SECONDS 10.3-12.9 N INTERNATIONAL NORMAL RATIO (test code = INR) 1.09 0.9-1.11 N INR goals are individualized based on patient specificfactors. The following are only general guidelines: Indications: INR Goal:1. Treatment of venous thromboembolism and 2.0 - 3.0 systemic anticoagulation in a variety of conditions, including atrial fibrillation and mechanical heart valves 2. Mechanical mitral and tricuspid valves, 2.5 - 3.5 systemic anticoagulation for high-risk conditions THROMBOPLASTIN TIME [id number] 08:11:00* Test Item Value Reference Range Interpretation Comme nts THROMBOPLASTIN TIME PARTIAL (test code = PTT) 44.8 secs 23.8-34.8 H INTERPRETATIVE D EDGARD: Therapeutic range: Unfractionated Heparin: 60-90 seconds Argatroban: 60-90 seconds [id number] 08:11:00* Test Item Value Reference Range Interpretation Comme nts FIBRINOGEN (test code = FIB) 510 mg/dL 200-400 H COMPREHENSIVE METABOLIC [id number] 07:12:00* Test Item Value Reference Range Interpretation Comme nts SODIUM (test code = NA) 139 mmol/L 136-145 N POTASSIUM (test code = K) 4.2 mmol/L 3.5-5.1 N CHLORIDE (test code = CL) 106 mmol/l 98-107 N CARBON DIOXIDE (test code = CO2) 24 mmol/L 20-31 N GLUCOSE (test code = GLU) 96 mg/dL 74-106 N BLOOD UREA NITROGEN (test code = BUN) 11 mg/dL 9-23 N GLOMERULAR FILTRATION RATE (test code = GFR) >=60 max estimate mL/min >60 The Glomerular Filtration Rate is a calculated parameterbased on serum Creatinine, patient age and sex. GFR valuesless than 60 mL/min/1.73 square meters are indicative ofChronic Kidney Disease. Values less than 15 mL/min/1.73square meters indicate Kidney failure. The calculation forGFR is based on the CKD-EPI (2020) calculation. This formulais race indifferent and is the recommended formula for GFRby the National Kidney Foundation for Adults.The GFR will not calculate if the sex is unknown or if thepatient's age is <18 years. CREATININE (test code = CREAT) 0.80 mg/dL 0.70-1.30 N TOTAL PROTEIN (test code = PROT) 5.3 g/dL 5.7-8.2 L ALBUMIN (test code = ALB) 3.6 g/dL 3.2-4.8 N CALCIUM (test code = CA) 8.0 mg/dL 8.7-10.4 L BILIRUBIN TOTAL (test code = BILT) 0.5 mg/dL 0.3-1.2 N SGOT/AST (test code = AST) 26 U/L <34 N SGPT/ALT (test code = ALT) 11 U/L 10-49 N ALKALINE PHOSPHATASE (test code = ALKP) 69.0 U/L 46-116 N ADD ON TEST? [id number] 07:12:00* Test Item Value Reference Range Interpretation Comme nts PHOSPHOROUS (test code = PHOS) 4.7 mg/dL 2.4-5.1 N ADD ON TEST? [id number] 07:12:00* Test Item Value Reference Range Interpretation Comme nts TRIGLYCERIDES (test code = TRIG) 163 mg/dL <150 H ADD ON TEST? YesLACTIC DEHYDROGENASE(LDH)2023-07-28 07:12:00* Test Item Value Reference Range Interpretation Comme nts LACTIC DEHYDROGENASE(LDH) (t est code = LDH) 437 U/L 120-246 H ADD ON TEST? [id number] 07:12:00* Test Item Value Reference Range Interpretation Comme nts MAGNESIUM (test code = MAG) 1.8 mg/dL 1.6-2.6 N ADD ON TEST? [id number] 05:54:00* Test Item Value Reference Range Interpretation Comme nts TROPONIN-I (test code = TROPI) 807.9 pg/mL 38.73-80.22 HH Critical Value r eported toFirst Name:MARINE Last Name:SONIDO READ BACK AND VERIFIEDby elijahSkipSETHSkipEO28, on 07/28/23, @ 0554. CBC W/AUTO [id number] 05:39:00* Test Item Value Reference Range Interpretation Comme nts WHITE BLOOD CELL (test code = WBC) 10.6 x10 3/uL 4.8-10.8 N RED BLOOD CELL (test code = RBC) 3.17 x10 6/uL 4.70-6.10 L HEMOGLOBIN (test code = HGB) 10.1 g/dL 14.0-18.0 L HEMATOCRIT (test code = HCT) 31.4 % 42.0-52.0 L MEAN CELL VOLUME (test code = MCV) 99.1 fL 80.0-94.0 H MEAN CELL HGB (test code = MCH) 31.9 pg 27-31 H MEAN CELL HGB CONCENTRATION (test code = MCHC) 32.2 G/DL 33-36.5 L RED CELL DISTRIBUTION WIDTH (test code = RDW) 13.8 % 12.9-16.9 N PLATELET COUNT (test code = PLT) 207 x10 3/uL 150-440 N MEAN PLATELET VOLUME (test c ode = MPV) 10.0 fL 8.9-12.4 N NEUTROPHIL % (test code = NT%) 74.5 % 42.2-75.2 N LYMPHOCYTE % (test code = LY%) 14.5 % 20.5-51.1 L MONOCYTE % (test code = MO%) 8.7 % 1.7-9.3 N EOSINOPHIL % (test code = EO%) 1.2 % 0.0-7.0 N BASOPHIL % (test code = BA%) 0.6 % 0-2.5 N NEUTROPHIL # (test code = NT#) 7.93 x10 3/uL 1.80-7.70 H LYMPHOCYTE # (test code = LY#) 1.54 x10 3/uL 1.00-4.80 N MONOCYTE # (test code = MO#) 0.92 x10 3/uL 0.00-0.80 H EOSINOPHIL # (test code = EO#) 0.13 x10 3/uL 0.00-0.45 N BASOPHIL # (test code = BA#) 0.06 x10 3/uL 0.0-0.20 N BASIC METABOLIC [id number] 01:54:00* Test Item Value Reference Range Interpretation Comme nts SODIUM (test code = NA) 138 mmol/L 136-145 N POTASSIUM (test code = K) 4.1 mmol/L 3.5-5.1 N CHLORIDE (test code = CL) 107 mmol/l 98-107 N CARBON DIOXIDE (test code = CO2) 23 mmol/L 20-31 N GLUCOSE (test code = GLU) 96 mg/dL 74-106 N BLOOD UREA NITROGEN (test code = BUN) 11 mg/dL 9-23 N GLOMERULAR FILTRATION RATE (test code = GFR) >=60 max estimate mL/min >60 The Glomerular Filtration Rate is a calculated parameterbased on serum Creatinine, patient age and sex. GFR valuesless than 60 mL/min/1.73 square meters are indicative ofChronic Kidney Disease. Values less than 15 mL/min/1.73square meters indicate Kidney failure. The calculation forGFR is based on the CKD-EPI (2020) calculation. This formulais race indifferent and is the recommended formula for GFRby the National Kidney Foundation for Adults.The GFR will not calculate if the sex is unknown or if thepatient's age is <18 years. CREATININE (test code = CREAT) 0.80 mg/dL 0.70-1.30 N CALCIUM (test code = CA) 8.0 mg/dL 8.7-10.4 L [id number] 01:54:00* Test Item Value Reference Range Interpretation Comme nts PHOSPHOROUS (test code = PHOS) 4.2 mg/dL 2.4-5.1 N [id number] 01:54:00* Test Item Value Reference Range Interpretation [facility] MAGNESI[facility] (test code = MAG) 1.9 mg/dL 1.6-2.6 N PROTHROMBIN [id number] 01:37:00* Test Item Value Reference Range Interpretation [facility] PROTHROMBIN TIME PATIENT (test code = PTP) 12.5 SECONDS 10.3-12.9 N INTERNATIONAL NORMAL RATIO (test code = INR) 1.12 0.9-1.11 H INR goals are individualized based on patient specificfactors. The following are only general guidelines: Indications: INR Goal:1. Treatment of venous thromboembolism and 2.0 - 3.0 systemic anticoagulation in a variety of conditions, including atrial fibrillation and mechanical heart valves 2. Mechanical mitral and tricuspid valves, 2.5 - 3.5 systemic anticoagulation for high-risk conditions THROMBOPLASTIN TIME [id number] 01:37:00* Test Item Value Reference Range Interpretation [facility] THROMBOPLASTIN TIME PARTIAL (test code = PTT) 44.9 secs 23.8-34.8 H INTERPRETATIVE D EDGARD: Therapeutic range: Unfractionated Heparin: 60-90 seconds Argatroban: 60-90 seconds BLOOD GAS [id number] 23:13:00* Test Item Value Reference Range Interpretation [facility] ARTERIAL BLOOD GAS PH (test code = PHA) 7.42 7.35-7.45 N ARTERIAL BLOOD GAS PCO2 (test code = PCO2A) 34.8 mmHg 35.0-45.0 L ARTERIAL BLOOD GAS PO2 (test code = PO2A) 81.3 mmHg 80.0-95.0 N BICARBONATE TOTAL HCO3 (test code = HCO3) 22.2 mmol/L 22.0-24.0 N BASE EXCESS (test code = UZIEL) -1.7 mmol/L See_Comment N [Automated message] The system which generated this result transmitted reference range: (+/-)2.0. The reference range was not used to interpret this result as normal/abnormal. ABG O2 SATURATION (test code = SATA) 95.8 % 95.0-100.0 N ARTERIAL FIO2 (test code = FIO2A) 60.0 % ABG VENT MODE (test code = MODEA) Ventilator ALLENS TEST (test code = ALLENS) No SODIUM (POC) (test code = NA/ABG) 133 mmol/L 135-147 L POTASSIUM (POC) (test code = K/ABG) 3.75 mmol/L 3.6-5.2 N CHLORIDE (ARTERIAL) (test code = CL/ABG) 103 mmol/L 98-108 N GLUCOSE (test code = GLU/ABG) 88 mg/dL 70-104 N IONIZED CALCIUM (test code = CAIABG) 1.19 mmol/L 1.12-1.32 N POC LACTIC ACID (test code = POCLAC) 1.07 mmol/L 0.5-2.2 N TOTAL HGB (test code = THB) 10.7 g/dL 13.0-17.0 L OXYHEMOGLOBIN (test code = OOHGBT) 95.6 % 92.0-98.0 N CARBOXYHEMOGLOBIN (test code = HOHGBT) 0.2 % 0-5.0 N METHEMOGLOBIN (test code = METHGB) <0.8 % 0-1.5 N HHb (test code = HHB) 4.2 % TCO2 ARTERIAL (test code = TCO2A) 23.3 MMOL/L 24-30 L THROMBOPLASTIN TIME [id number] 18:31:00* Test Item Value Reference Range Interpretation Comme nts THROMBOPLASTIN TIME PARTIAL (test code = PTT) 41.6 secs 23.8-34.8 H INTERPRETATIVE D EDGARD: Therapeutic range: Unfractionated Heparin: 60-90 seconds Argatroban: 60-90 seconds BASIC METABOLIC [id number] 17:30:00* Test Item Value Reference Range Interpretation Comme nts SODIUM (test code = NA) 136 mmol/L 136-145 N POTASSIUM (test code = K) 3.4 mmol/L 3.5-5.1 L CHLORIDE (test code = CL) 106 mmol/l 98-107 N CARBON DIOXIDE (test code = CO2) 23 mmol/L 20-31 N GLUCOSE (test code = GLU) 94 mg/dL 74-106 N BLOOD UREA NITROGEN (test code = BUN) 10 mg/dL 9-23 N GLOMERULAR FILTRATION RATE (test code = GFR) >=60 max estimate mL/min >60 The Glomerular Filtration Rate is a calculated parameterbased on serum Creatinine, patient age and sex. GFR valuesless than 60 mL/min/1.73 square meters are indicative ofChronic Kidney Disease. Values less than 15 mL/min/1.73square meters indicate Kidney failure. The calculation forGFR is based on the CKD-EPI (2020) calculation. This formulais race indifferent and is the recommended formula for GFRby the National Kidney Foundation for Adults.The GFR will not calculate if the sex is unknown or if thepatient's age is <18 years. CREATININE (test code = CREAT) 0.90 mg/dL 0.70-1.30 N CALCIUM (test code = CA) 7.8 mg/dL 8.7-10.4 L [id number] 17:30:00* Test Item Value Reference Range Interpretation Comme nts PHOSPHOROUS (test code = PHOS) 2.8 mg/dL 2.4-5.1 N [id number] 17:30:00* Test Item Value Reference Range Interpretation Comme nts MAGNESIUM (test code = MAG) 1.9 mg/dL 1.6-2.6 N [id number] 11:37:00* Test Item Value Reference Range Interpretation Comme nts GLUBED (test code = GLUBED) 92 MG/DL 70-105 N BASIC METABOLIC [id number] 09:38:00* Test Item Value Reference Range Interpretation Comme nts SODIUM (test code = NA) 138 mmol/L 136-145 N POTASSIUM (test code = K) 3.7 mmol/L 3.5-5.1 N CHLORIDE (test code = CL) 104 mmol/l 98-107 N CARBON DIOXIDE (test code = CO2) 25 mmol/L 20-31 N GLUCOSE (test code = GLU) 84 mg/dL 74-106 N BLOOD UREA NITROGEN (test code = BUN) 12 mg/dL 9-23 N GLOMERULAR FILTRATION RATE (test code = GFR) >=60 max estimate mL/min >60 The Glomerular Filtration Rate is a calculated parameterbased on serum Creatinine, patient age and sex. GFR valuesless than 60 mL/min/1.73 square meters are indicative ofChronic Kidney Disease. Values less than 15 mL/min/1.73square meters indicate Kidney failure. The calculation forGFR is based on the CKD-EPI (2020) calculation. This formulais race indifferent and is the recommended formula for GFRby the National Kidney Foundation for Adults.The GFR will not calculate if the sex is unknown or if thepatient's age is <18 years. CREATININE (test code = CREAT) 1.10 mg/dL 0.70-1.30 N CALCIUM (test code = CA) 8.3 mg/dL 8.7-10.4 L [id number] 09:38:00* Test Item Value Reference Range Interpretation Comme nts PHOSPHOROUS (test code = PHOS) 3.5 mg/dL 2.4-5.1 N [id number] 09:38:00* Test Item Value Reference Range Interpretation Comme nts MAGNESIUM (test code = MAG) 1.8 mg/dL 1.6-2.6 N DRUGS OF ABUSE SCREEN [id number] 09:30:00* Test Item Value Reference Range Interpretation Comme nts UR COCAINE (test code = COCAU) Negative Negative UR CANABINOIDS (test code = CANU) Negative Negative UR AMPHETAMINE (test code = AMPHU) Negative Negative UR BARBITURATE (test code = BARBQLU) Negative Negative UR BENZODIAZEPINE (test code = BENZU) Positive Negative A UR OPIATES QUAL (test code = OPIAQLU) Negative Negative UR PHENCYCLIDINE (PCP) (test code = PHENCU) Negative Negative The assay c ut-off concentration: Benzodiazepines 200 ng/mL Amphetamines 500 ng/mL Barbiturates 200 ng/mL Cannabinoids 50 ng/mL Cocaine 150 ng/mL Opiates 300 ng/mL Phencyclidine 25 ng/mL The method performed by [facility] forurine Drugs of Abuse is performed as a medical screeningtest only. If confirmation testing is required, thephysician must order the confirmatory test within 5 days ofthe specimen's collection date. The specimen will be sentout to an independent reference laboratory. ADD ON TEST? NoBLOOD GAS W/[id number] 07:21:00* Test Item Value Reference Range Interpretation Comme nts ARTERIAL BLOOD GAS PH (test code = PHA) 7.49 7.35-7.45 H ARTERIAL BLOOD GAS PCO2 (test code = PCO2A) 31.5 mmHg 35.0-45.0 L ARTERIAL BLOOD GAS PO2 (test code = PO2A) 159.1 mmHg 80.0-95.0 H BICARBONATE TOTAL HCO3 (test code = HCO3) 23.3 mmol/L 22.0-24.0 N BASE EXCESS (test code = UZIEL) 0.6 mmol/L See_Comment N [Automated message] The system which generated this result transmitted reference range: (+/-)2.0. The reference range was not used to interpret this result as normal/abnormal. ABG O2 SATURATION (test code = SATA) 99.3 % 95.0-100.0 N ARTERIAL FIO2 (test code = FIO2A) 60.0 % ABG VENT MODE (test code = MODEA) Ventilator ALLENS TEST (test code = ALLENS) No SODIUM (POC) (test code = NA/ABG) 136 mmol/L 135-147 N POTASSIUM (POC) (test code = K/ABG) 3.69 mmol/L 3.6-5.2 N CHLORIDE (ARTERIAL) (test code = CL/ABG) 100 mmol/L 98-108 N GLUCOSE (test code = GLU/ABG) 100 mg/dL 70-104 N IONIZED CALCIUM (test code = CAIABG) 1.17 mmol/L 1.12-1.32 N POC LACTIC ACID (test code = POCLAC) 1.99 mmol/L 0.5-2.2 N TOTAL HGB (test code = THB) 12.7 g/dL 13.0-17.0 L CARBOXYHEMOGLOBIN (test code = HOHGBT) 0.8 % 0-5.0 N METHEMOGLOBIN (test code = METHGB) <0.8 % 0-1.5 N HHb (test code = HHB) 0.7 % TCO2 ARTERIAL (test code = TCO2A) 24.3 MMOL/L 24-30 N VENOUS BLOOD [id number] 07:21:00* Test Item Value Reference Range Interpretation Comme nts VENOUS BLOOD GAS PH (test code = PHV) 7.41 7.35-7.45 N VENOUS BLOOD GAS PCO2 (test code = PCO2V) 39.2 mmHg See_Comment [Automated messa ge] The system which generated this result transmitted reference range: 46. The reference range was not used to interpret this result as normal/abnormal. VENOUS BLOOD GAS PO2 (test code = PO2V) 34.9 mmHg See_Comment [Automated messa ge] The system which generated this result transmitted reference range: 40. The reference range was not used to interpret this result as normal/abnormal. VBG HCO3 (test code = HCO3V) 24 meq/L VBG BASE EXCESS (test code = NATALYA) -0.3 MMOL/L VENOUS BLOOD GAS O2 SAT (test code = O2SATV) 67 % See_Comment [Automated messa ge] The system which generated this result transmitted reference range: 75. The reference range was not used to interpret this result as normal/abnormal. VENOUS BLOOD GAS TYPE (test code = TYPEV) Venous VENOUS BLOOD GAS FIO2 (test code = FIO2V) 100.0 % VBG VENT MODE (test code = MODEV) Ventilator BLOOD GAS [id number] 07:20:00* Test Item Value Reference Range Interpretation Comme nts ARTERIAL BLOOD GAS PH (test code = PHA) 7.46 7.35-7.45 H ARTERIAL BLOOD GAS PCO2 (test code = PCO2A) 28.9 mmHg 35.0-45.0 L ARTERIAL BLOOD GAS PO2 (test code = PO2A) 406.7 mmHg 80.0-95.0 H BICARBONATE TOTAL HCO3 (test code = HCO3) 19.9 mmol/L 22.0-24.0 L BASE EXCESS (test code = UZIEL) -2.8 mmol/L See_Comment L [Automated message] The system which generated this result transmitted reference range: (+/-)2.0. The reference range was not used to interpret this result as normal/abnormal. ABG O2 SATURATION (test code = SATA) 100.0 % 95.0-100.0 N ARTERIAL FIO2 (test code = FIO2A) 100.0 % ABG VENT MODE (test code = MODEA) Ventilator ALLENS TEST (test code = ALLENS) No SODIUM (POC) (test code = NA/ABG) 137 mmol/L 135-147 N POTASSIUM (POC) (test code = K/ABG) 4.03 mmol/L 3.6-5.2 N CHLORIDE (ARTERIAL) (test code = CL/ABG) 100 mmol/L 98-108 N GLUCOSE (test code = GLU/ABG) 114 mg/dL 70-104 H IONIZED CALCIUM (test code = CAIABG) 1.08 mmol/L 1.12-1.32 L POC LACTIC ACID (test code = POCLAC) 1.85 mmol/L 0.5-2.2 N TOTAL HGB (test code = THB) 13.4 g/dL 13.0-17.0 N OXYHEMOGLOBIN (test code = OOHGBT) 99.1 % 92.0-98.0 H CARBOXYHEMOGLOBIN (test code = HOHGBT) 0.6 % 0-5.0 N METHEMOGLOBIN (test code = METHGB) <0.8 % 0-1.5 N HHb (test code = HHB) 0 % TCO2 ARTERIAL (test code = TCO2A) 20.8 MMOL/L 24-30 L VENOUS BLOOD [id number] 07:19:00* Test Item Value Reference Range Interpretation Comme [facility] VENOUS BLOOD GAS PH (test code = PHV) 7.41 7.35-7.45 N VENOUS BLOOD GAS PCO2 (test code = PCO2V) 40.0 mmHg See_Comment [Automated [employer]] The system which generated this result transmitted reference range: 46. The reference range was not used to interpret this result as normal/abnormal. VENOUS BLOOD GAS PO2 (test code = PO2V) 33.2 mmHg See_Comment [Automated messa ge] The system which generated this result transmitted reference range: 40. The reference range was not used to interpret this result as normal/abnormal. VBG HCO3 (test code = HCO3V) 25 meq/L VBG BASE EXCESS (test code = NATALYA) 0.5 MMOL/L VENOUS BLOOD GAS O2 SAT (test code = O2SATV) 64 % See_Comment [Automated [employer]] The system which generated this result transmitted reference range: 75. The reference range was not used to interpret this result as normal/abnormal. VENOUS BLOOD GAS TYPE (test code = TYPEV) Venous VENOUS BLOOD GAS FIO2 (test code = FIO2V) 60.0 % VBG VENT MODE (test code = MODEV) Ventilator COVID 19 Asymptomatic IH [id number] 04:52:00* Test Item Value Reference Range Interpretation Comme nts COVID 19 Asymptomatic IH AG (test code = COVNONPUIAG) NEGATIVE NEGATIVE Negative results , from patients with symptom onset beyondfive days, should be treated as presumptive and confirmationwith a molecular assay, if necessary for patientmanagement, may be performed. Negative results do not ruleout COVID-19 and should not be used as the sole basis fortreatment or patient management decisions, includinginfection control decisions. Negative results should beconsidered in the context of a patient's recent exposures,history and the presence of clinical signs and symptomsconsistent with COVID-19. CBC W/AUTO [id number] 04:32:00* Test Item Value Reference Range Interpretation Comme nts WHITE BLOOD CELL (test code = WBC) 10.1 x10 3/uL 4.8-10.8 N RED BLOOD CELL (test code = RBC) 3.64 x10 6/uL 4.70-6.10 L HEMOGLOBIN (test code = HGB) 11.8 g/dL 14.0-18.0 L HEMATOCRIT (test code = HCT) 33.8 % 42.0-52.0 L MEAN CELL VOLUME (test code = MCV) 92.9 fL 80.0-94.0 N MEAN CELL HGB (test code = MCH) 32.4 pg 27-31 H MEAN CELL HGB CONCENTRATION (test code = MCHC) 34.9 G/DL 33-36.5 N RED CELL DISTRIBUTION WIDTH (test code = RDW) 13.3 % 12.9-16.9 N PLATELET COUNT (test code = PLT) 264 x10 3/uL 150-440 N MEAN PLATELET VOLUME (test c ode = MPV) 9.8 fL 8.9-12.4 N NEUTROPHIL % (test code = NT%) 71.9 % 42.2-75.2 N LYMPHOCYTE % (test code = LY%) 19.5 % 20.5-51.1 L MONOCYTE % (test code = MO%) 7.5 % 1.7-9.3 N EOSINOPHIL % (test code = EO%) 0.2 % 0.0-7.0 N BASOPHIL % (test code = BA%) 0.5 % 0-2.5 N NEUTROPHIL # (test code = NT#) 7.28 x10 3/uL 1.80-7.70 N LYMPHOCYTE # (test code = LY#) 1.97 x10 3/uL 1.00-4.80 N MONOCYTE # (test code = MO#) 0.76 x10 3/uL 0.00-0.80 N EOSINOPHIL # (test code = EO#) 0.02 x10 3/uL 0.00-0.45 N BASOPHIL # (test code = BA#) 0.05 x10 3/uL 0.0-0.20 N COMPREHENSIVE METABOLIC [id number] 04:29:00* Test Item Value Reference Range Interpretation Comme nts SODIUM (test code = NA) 139 mmol/L 136-145 N POTASSIUM (test code = K) 3.8 mmol/L 3.5-5.1 N CHLORIDE (test code = CL) 103 mmol/l 98-107 N CARBON DIOXIDE (test code = CO2) 23 mmol/L 20-31 N GLUCOSE (test code = GLU) 100 mg/dL 74-106 N BLOOD UREA NITROGEN (test code = BUN) 14 mg/dL 9-23 N GLOMERULAR FILTRATION RATE (test code = GFR) >=60 max estimate mL/min >60 The Glomerular Filtration Rate is a calculated parameterbased on serum Creatinine, patient age and sex. GFR valuesless than 60 mL/min/1.73 square meters are indicative ofChronic Kidney Disease. Values less than 15 mL/min/1.73square meters indicate Kidney failure. The calculation forGFR is based on the CKD-EPI (2020) calculation. This formulais race indifferent and is the recommended formula for GFRby the National Kidney Foundation for Adults.The GFR will not calculate if the sex is unknown or if thepatient's age is <18 years. CREATININE (test code = CREAT) 1.00 mg/dL 0.70-1.30 N TOTAL PROTEIN (test code = PROT) 5.5 g/dL 5.7-8.2 L ALBUMIN (test code = ALB) 3.9 g/dL 3.2-4.8 N CALCIUM (test code = CA) 8.7 mg/dL 8.7-10.4 BILIRUBIN TOTAL (test code = BILT) 1.0 mg/dL 0.3-1.2 N SGOT/AST (test code = AST) 38 U/L <34 H SGPT/ALT (test code = ALT) 18 U/L 10-49 N ALKALINE PHOSPHATASE (test code = ALKP) 80.0 U/L 46-116 N ADD ON TEST? [id number] 04:29:00* Test Item Value Reference Range Interpretation Comme nts PHOSPHOROUS (test code = PHOS) 4.5 mg/dL 2.4-5.1 N ADD ON TEST? YesLACTIC DEHYDROGENASE(LDH)2023-07-27 04:29:00* Test Item Value Reference Range Interpretation Comme nts LACTIC DEHYDROGENASE(LDH) (t est code = LDH) 536 U/L 120-246 H ADD ON TEST? [id number] 04:29:00* Test Item Value Reference Range Interpretation Comme nts MAGNESIUM (test code = MAG) 1.9 mg/dL 1.6-2.6 N ADD ON TEST? YesLACTIC [id number] 04:29:00* Test Item Value Reference Range Interpretation Comme nts LACTIC ACID (test code = LACT) 1.40 mmol/L 0.5-2.0 N PROTHROMBIN [id number] 04:24:00* Test Item Value Reference Range Interpretation Comme [facility] PROTHROMBIN TIME PATIENT (test code = PTP) 12.6 SECONDS 10.3-12.9 N INTERNATIONAL NORMAL RATIO (test code = INR) 1.13 0.9-1.11 H INR goals are individualized based on patient specificfactors. The following are only general guidelines: Indications: INR Goal:1. Treatment of venous thromboembolism and 2.0 - 3.0 systemic anticoagulation in a variety of conditions, including atrial fibrillation and mechanical heart valves 2. Mechanical mitral and tricuspid valves, 2.5 - 3.5 systemic anticoagulation for high-risk conditions THROMBOPLASTIN TIME [id number] 04:24:00* Test Item Value Reference Range Interpretation Comme [facility] THROMBOPLASTIN TIME PARTIAL (test code = PTT) 29.6 secs 23.8-34.8 INTERPRETATIVE D EDGARD: Therapeutic range: Unfractionated Heparin: 60-90 seconds Argatroban: 60-90 seconds [id number] 04:24:00* Test Item Value Reference Range Interpretation Comme [facility] FIBRINOGEN (test code = FIB) 404 mg/dL 200-400 H - XR CHEST 1 [id number] 01:04:00 [facility]: KOTA MONTES : 1960 Sex: MPatient Name: KOTA MONTES Unit No: [id number] EXAMS: CPT CODE: [id number] XR CHEST 1 V [id number] EXAM: - XR CHEST 1 V CLINICAL HISTORY: IJ TECHNIQUE: Single frontal view. COMPARISON: Chest radiograph 07/26/2023, 06/18/2023 LOCATION: H65 FINDINGS: Sternotomy cerclage wires and mediastinal surgical clips are present. Endotracheal tube tip terminates approximately 5 cm abovethe elizabeth. Left internal jugular vein central line tip is approximately cavoatrial junction. Intra-aortic catheter noted. Enteric tube tip terminates beyond the [id number] of the upper abdomen. The trachea appears normal. The mediastinum and cardiac silhouette are within the upper limits for normal size. Mild ill- defined airspace opacities noted right perihilar region. Trace right pleural effusion. Visualized soft tissues and osseous structures are grossly unremarkable. IMPRESSION: Mild ill-defined airspace opacities noted right perihilar region. Trace right pleural effusion. Support lines and tubes as detailed above. at 0104 Reported and signed by: MIRTA MEYER M.D. CC: Keenan Kumari MD; Kurtis Lynch MD; Mark Anthony Copeland MDTechnologist: Dave Bustillo Time: DAP (Gy m2): Air Kerma (mGy): Trscr Dt/Tm: 07/27/2023 (103) by:[email or web address] Printed Date/Time: 07/27/2023 (106) Name: KOTA MONTES [facility] Phys: BARBARA.Tasha - Mark Anthony Copeland [address] : 1960 Age: 62 Sex: [place] [address] Loc: P.0313 1 Exam Date: 07/27/2023 Status: ADM IN PH: FAX: PAGE 1 Signed ReportPROTHROMBIN TIME 2023-07-27 00:25:00* Test Item Value Reference Range Interpretation Comme nts PROTHROMBIN TIME PATIENT (test code = PTP) 14.2 SECONDS 10.3-12.9 H INTERNATIONAL NORMAL RATIO (test code = INR) 1.27 0.9-1.11 H INR goals are individualized based on patient specificfactors. The following are only general guidelines: Indications: INR Goal:1. Treatment of venous thromboembolism and 2.0 - 3.0 systemic anticoagulation in a variety of conditions, including atrial fibrillation and mechanical heart valves 2. Mechanical mitral and tricuspid valves, 2.5 - 3.5 systemic anticoagulation for high-risk conditions THROMBOPLASTIN TIME [id number] 00:25:00* Test Item Value Reference Range Interpretation Comme [facility] THROMBOPLASTIN TIME PARTIAL (test code = PTT) 397.0 secs 23.8-34.8 HH Critical Value reported toFirst Name:LOAN Last Name:DAVID READ BACK AND VERIFIEDby [id number], on 07/27/23, @ 0024.INTERPRETATIVE DATA: Therapeutic range: Unfractionated Heparin: 60-90 seconds Argatroban: 60-90 seconds [id number] 00:25:00* Test Item Value Reference Range Interpretation Comme [facility] FIBRINOGEN (test code = FIB) 363 mg/dL 200-400 N LACTIC [id number] 23:56:00* Test Item Value Reference Range Interpretation Comme nts LACTIC ACID (test code = LACT) 1.30 mmol/L 0.5-2.0 N BASIC METABOLIC [id number] 23:55:00* Test Item Value Reference Range Interpretation Comme nts SODIUM (test code = NA) 137 mmol/L 136-145 N POTASSIUM (test code = K) 4.0 mmol/L 3.5-5.1 N CHLORIDE (test code = CL) 103 mmol/l 98-107 N CARBON DIOXIDE (test code = CO2) 22 mmol/L 20-31 N GLUCOSE (test code = GLU) 120 mg/dL 74-106 H BLOOD UREA NITROGEN (test code = BUN) 10 mg/dL 9-23 N GLOMERULAR FILTRATION RATE (test code = GFR) >=60 max estimate mL/min >60 The Glomerular Filtration Rate is a calculated parameterbased on serum Creatinine, patient age and sex. GFR valuesless than 60 mL/min/1.73 square meters are indicative ofChronic Kidney Disease. Values less than 15 mL/min/1.73square meters indicate Kidney failure. The calculation forGFR is based on the CKD-EPI (2020) calculation. This formulais race indifferent and is the recommended formula for GFRby the National Kidney Foundation for Adults.The GFR will not calculate if the sex is unknown or if thepatient's age is <18 years. CREATININE (test code = CREAT) 1.00 mg/dL 0.70-1.30 N CALCIUM (test code = CA) 7.6 mg/dL 8.7-10.4 L [id number] 23:55:00* Test Item Value Reference Range Interpretation Comme nts PHOSPHOROUS (test code = PHOS) 4.6 mg/dL 2.4-5.1 N LACTIC DEHYDROGENASE(LDH)2023-07-26 23:55:00* Test Item Value Reference Range Interpretation Comme nts LACTIC DEHYDROGENASE(LDH) (t est code = LDH) 458 U/L 120-246 H [id number] 23:55:00* Test Item Value Reference Range Interpretation Comme nts MAGNESIUM (test code = MAG) 1.5 mg/dL 1.6-2.6 L CBC W/AUTO [id number] 23:40:00* Test Item Value Reference Range Interpretation Comme nts WHITE BLOOD CELL (test code = WBC) 13.7 x10 3/uL 4.8-10.8 H RED BLOOD CELL (test code = RBC) 3.76 x10 6/uL 4.70-6.10 L HEMOGLOBIN (test code = HGB) 12.1 g/dL 14.0-18.0 L HEMATOCRIT (test code = HCT) 35.9 % 42.0-52.0 L MEAN CELL VOLUME (test code = MCV) 95.5 fL 80.0-94.0 H MEAN CELL HGB (test code = MCH) 32.2 pg 27-31 H MEAN CELL HGB CONCENTRATION (test code = MCHC) 33.7 G/DL 33-36.5 N RED CELL DISTRIBUTION WIDTH (test code = RDW) 13.2 % 12.9-16.9 N PLATELET COUNT (test code = PLT) 282 x10 3/uL 150-440 N MEAN PLATELET VOLUME (test code = MPV) 10.0 fL 8.9-12.4 N NEUTROPHIL % (test code = NT%) 83.9 % 42.2-75.2 H LYMPHOCYTE % (test code = LY%) 10.1 % 20.5-51.1 L MONOCYTE % (test code = MO%) 5.4 % 1.7-9.3 N EOSINOPHIL % (test code = EO%) 0.0 % 0.0-7.0 N BASOPHIL % (test code = BA%) 0.2 % 0-2.5 N NEUTROPHIL # (test code = NT#) 11.45 x10 3/uL 1.80-7.70 H LYMPHOCYTE # (test code = LY#) 1.38 x10 3/uL 1.00-4.80 N MONOCYTE # (test code = MO#) 0.74 x10 3/uL 0.00-0.80 N EOSINOPHIL # (test code = EO#) 0.00 x10 3/uL 0.00-0.45 N BASOPHIL # (test code = BA#) 0.03 x10 3/uL 0.0-0.20 N COAGULATION TIME [id number] 20:20:00* Test Item Value Reference Range Interpretation Comme nts COAGULATION TIME ACTIVATED ( test code = ACT) 262 SECONDS 74-137 H COAGULATION TIME [id number] 19:49:00* Test Item Value Reference Range Interpretation Comme nts COAGULATION TIME ACTIVATED ( test code = ACT) 330 SECONDS 74-137 H LACTIC [id number] 18:58:00* Test Item Value Reference Range Interpretation Comme nts LACTIC ACID (test code = LACT) 3.80 mmol/L 0.5-2.0 HH Critical Value r eported toFirst Name:MAX Jacinto Name:BRITTNEY READ BACK AND VERIFIEDby [id number], on 07/26/23, @ 1858. COAGULATION TIME [id number] 18:57:00* Test Item Value Reference Range Interpretation Comme nts COAGULATION TIME ACTIVATED ( test code = ACT) 287 SECONDS 74-137 H BLOOD GAS W/[id number] 17:19:00* Test Item Value Reference Range Interpretation Comme nts ARTERIAL BLOOD GAS PH (test code = PHA) 7.34 7.35-7.45 L ARTERIAL BLOOD GAS PCO2 (test code = PCO2A) 29.3 mmHg 35.0-45.0 L ARTERIAL BLOOD GAS PO2 (test code = PO2A) 57.8 mmHg 80.0-95.0 L BICARBONATE TOTAL HCO3 (test code = HCO3) 15.5 mmol/L 22.0-24.0 L BASE EXCESS (test code = UZIEL) -8.7 mmol/L See_Comment L [Automated message] The system which generated this result transmitted reference range: (+/-)2.0. The reference range was not used to interpret this result as normal/abnormal. ARTERIAL FIO2 (test code = FIO2A) 44.0 % ABG VENT MODE (test code = MODEA) NASAL CANNULA ALLENS TEST (test code = ALLENS) GOOD COLLATERAL FLOW SODIUM (POC) (test code = NA/ABG) 132 mmol/L 135-147 L POTASSIUM (POC) (test code = K/ABG) 3.90 mmol/L 3.6-5.2 N CHLORIDE (ARTERIAL) (test code = CL/ABG) 101 mmol/L 98-108 N GLUCOSE (test code = GLU/ABG) 201 mg/dL 70-104 H IONIZED CALCIUM (test code = CAIABG) 1.14 mmol/L 1.12-1.32 N POC LACTIC ACID (test code = POCLAC) 3.97 mmol/L 0.5-2.2 H TCO2 ARTERIAL (test code = TCO2A) 16.4 MMOL/L 24-30 L - XR CHEST 1 [id number] 14:55:00 [facility] : 1960 Sex: MPatient Name: KOTA MONTES Unit No: [id number] EXAMS: CPT CODE: [id number] XR CHEST 1 V [id number] EXAM: - XR CHEST 1 V DATE: 07/26/2023 1:37 PM. INDICATION: CHEST PAIN . COMPARISON: Chest x-ray 06/18/2023. TECHNIQUE: Frontal chest. Location: W1 FINDINGS: Lines, Tubes and Hardware: None. Lungs and Pleura: No pneumothorax or significant consolidations. Dulce B-lines are present. Mild blunting of the costophrenic angles. Heart and Mediastinum: The heart size is enlarged. The bronchovascular markings are prominent centrally. Bones: No acute skeletal abnormality is identified. Patient status post median sternotomy. Upper abdomen: Within normal limits IMPRESSION: CHF with mild pulmonary edema. Possible trace pleural effusions. Electronically Signed by Danny Myers MD on07/26/2023 at 1455 Reported and signed by: Danny Myers MD CC: Rochelle CF1 Andre VAZQUEZ; Shivam Singh MD; Kurtis Lynch MD Technologist: SOFÍA Bustillo Time: DAP (Gy m2): Air Kerma (mGy):Trscr Dt/Tm: 07/26/2023 (6741) by:[email or web address] Printed Date/Time: 07/26/2023 (2591) Name: KOTA MONTES [facility] Phys: Rochelle Cotton MD C [address] : [birth year] Age: 62 Sex: [place] [address] Loc: RASHI 2 Exam Date: 07/26/2023 Status: ADM IN PH: FAX: PAGE 1 Signed ReportPROTHROMBIN TIME 2023-07-26 14:22:00* Test Item Value Reference Range Interpretation Comme nts PROTHROMBIN TIME PATIENT (test code = PTP) 12.2 SECONDS 10.3-12.9 N INTERNATIONAL NORMAL RATIO (test code = INR) 1.09 0.9-1.11 N INR goals are individualized based on patient specificfactors. The following are only general guidelines: Indications: INR Goal:1. Treatment of venous thromboembolism and 2.0 - 3.0 systemic anticoagulation in a variety of conditions, including atrial fibrillation and mechanical heart valves 2. Mechanical mitral and tricuspid valves, 2.5 - 3.5 systemic anticoagulation for high-risk conditions THROMBOPLASTIN TIME [id number] 14:22:00* Test Item Value Reference Range Interpretation Comme nts THROMBOPLASTIN TIME PARTIAL (test code = PTT) 33.6 secs 23.8-34.8 N INTERPRETATIVE D EDGARD: Therapeutic range: Unfractionated Heparin: 60-90 seconds Argatroban: 60-90 seconds BASIC METABOLIC [id number] 14:09:00* Test Item Value Reference Range Interpretation Comme nts SODIUM (test code = NA) 135 mmol/L 136-145 L POTASSIUM (test code = K) 4.6 mmol/L 3.5-5.1 N CHLORIDE (test code = CL) 102 mmol/l 98-107 N CARBON DIOXIDE (test code = CO2) 25 mmol/L 20-31 N GLUCOSE (test code = GLU) 104 mg/dL 74-106 N BLOOD UREA NITROGEN (test code = BUN) 8 mg/dL 9-23 L GLOMERULAR FILTRATION RATE (test code = GFR) >=60 max estimate mL/min >60 The Glomerular Filtration Rate is a calculated parameterbased on serum Creatinine, patient age and sex. GFR valuesless than 60 mL/min/1.73 square meters are indicative ofChronic Kidney Disease. Values less than 15 mL/min/1.73square meters indicate Kidney failure. The calculation forGFR is based on the CKD-EPI (2020) calculation. This formulais race indifferent and is the recommended formula for GFRby the National Kidney Foundation for Adults.The GFR will not calculate if the sex is unknown or if thepatient's age is <18 years. CREATININE (test code = CREAT) 1.00 mg/dL 0.70-1.30 N CALCIUM (test code = CA) 8.9 mg/dL 8.7-10.4 N LIPID PROFILE (CORONARY RISK)2023-07-26 14:09:00* Test Item Value Reference Range Interpretation Comme nts TRIGLYCERIDES (test code = TRIG) 112 mg/dL <150 N CHOLESTEROL (test code = CHOL) 119 mg/dL <200 N HDL CHOLESTEROL (test code = HDL) 42 mg/dL >60 L Please note New Reference Interval Nov 2022 REFERENCE INTERVALLow (undesirable, high risk): < 40 mg/dLHigh (desirable, low risk): >/= 60 mg/dL LIPOPROTEIN LDL (test code = LDLC) 48 mg/dL <100 N INTERPRETATIVE DATA:LDL Cholesterol: Reference RangesOptimal: <100 mg/dLNear Optimal: 100 -129 mg/dLBorderline High: 130 - 159 mg/dLHigh: 160 - 189 mg/dLVery High: = or > 190 mg/dL CORONARY RISK FACTOR (test code = RISK) 2.83 CHOL/HDL RISK MALE: 1/2 AVG 3.43 FEMALE: 1/2 AVG 3.27 AVG 4.97 AVG 4.44 2X AVG 9.55 2X AVG 7.05 3X AVG 23.39 3X AVG 11.04~~~~~~~~~~~~~~~~~ ~~~~~~~~~~~~~~~~~~~~~~ ~~~~~~~~~~~~~~~~~~~~~[facility] Cholesterol Education (NCEP) Guidelines:~~~~~~~~~~~ ~~~~~~~~~~~~~~~~~~~~~~ ~~~~~~~~~~~~~~~~~~~~~~ ~~~~~ HDL Cholesterol<40mg/dL: HDL Cholesterol (Major risk factor for CHD)>60mg/dL: HDL Cholesterol (Negative risk factor for CHD)40-59mg/dL: Borderline Risk LDL Cholesterol<100mg/dL : Desirable LDL-C jfllostkrhqmd319-476bh /dL: Borderline High Risk LDL-C lrxtuimhbqwmu610-396cx /dL: High risk LDL-C concentration HDL-LDL Cholesterol is affected by a number of factors suchas smoking, age and sex.~~~~~~~~~~~~~~~~~~ ~~~~~~~~~~~~~~~~~~~~~~ ~~~~~~~~~~~~~~~~~~~~ LIVER FUNCTION [id number] 14:09:00* Test Item Value Reference Range Interpretation Comme nts TOTAL PROTEIN (test code = PROT) 8.0 g/dL 5.7-8.2 N ALBUMIN (test code = ALB) 4.8 g/dL 3.2-4.8 N BILIRUBIN TOTAL (test code = BILT) 0.5 mg/dL 0.3-1.2 N BILIRUBIN DIRECT (test code = BILD) 0.2 mg/dL <0.3 N SGOT/AST (test code = AST) 22 U/L <34 N SGPT/ALT (test code = ALT) 21 U/L 10-49 N ALKALINE PHOSPHATASE (test c ode = ALKP) 106.0 U/L 46-116 N [id number] 14:09:00* Test Item Value Reference Range Interpretation Comme nts MAGNESIUM (test code = MAG) 1.7 mg/dL 1.6-2.6 N B-TYPE NATRIURETIC [id number] 14:09:00* Test Item Value Reference Range Interpretation Comme nts B-TYPE NATRIURETIC PEPTIDE ( test code = BNP) 1640 pg/mL <100 H [id number] 14:09:00* Test Item Value Reference Range Interpretation Comme nts TROPONIN-I (test code = TROPI) 51.2 pg/mL 38.73-80.22 N CBC W/O [id number] 13:50:00* Test Item Value Reference Range Interpretation Comme nts WHITE BLOOD CELL (test code = WBC) 11.5 x10 3/uL 4.8-10.8 H RED BLOOD CELL (test code = RBC) 4.18 x10 6/uL 4.70-6.10 L HEMOGLOBIN (test code = HGB) 13.3 g/dL 14.0-18.0 L HEMATOCRIT (test code = HCT) 40.9 % 42.0-52.0 L MEAN CELL VOLUME (test code = MCV) 97.8 fL 80.0-94.0 H MEAN CELL HGB (test code = MCH) 31.8 pg 27-31 H MEAN CELL HGB CONCENTRATION (test code = MCHC) 32.5 G/DL 33-36.5 L RED CELL DISTRIBUTION WIDTH (test code = RDW) 13.2 % 12.9-16.9 N PLATELET COUNT (test code = PLT) 309 x10 3/uL 150-440 N - XR CHEST 1 [id number] 07:56:00 [facility] 1960 Sex: MPatient Name: KOTA MONTES Unit No: [id number] EXAMS: CPT CODE: [id number] XR CHEST 1 V [id number] EXAM: Portable chest x-ray, 1 view Dictation location: A1 COMPARISON: Chest x-ray on 06/16/2023 INDICATION: S/p CABG. Resp failure DISCUSSION: Findings suggest previous CABG. There is unchanged mild cardiac silhouette enlargement. Partial bilateral retrocardiac consolidation isunchanged on the right and slightly improved on the left. No pneumothorax or obvious pleural effusion is seen. No acute bony abnormalities are identified. IMPRESSION: 1. Bilateral retrocardiac consolidation is unchanged on the right and slightly improved on the left, either due to atelectasis, pneumonia, or a combination of these. 2. Findings suggest CHF and previous CABG. at 0756 Reported and signed by: Yoshi Bennett M.D. CC: Kurtis Lynch MD; Haritha DOOLEY; Sherrie Stein MD Technologist: JJ WILL Fluoro Time: DAP (Gy m2): Air Kerma (mGy): Trscr Dt/Tm: 06/18/2023 (0756) by:[email or web address] Printed Date/Time: 06/18/2023 (0759) Name: KOTA MONTES [facility] Phys: Haritha Matthew [address] : 1960 Age: 62 Sex: [place] [address] Loc: P.0303 1 Exam Date: 06/18/2023 Status: ADM IN PH: FAX: PAGE 1 Signed ReportBASIC METABOLIC PANEL 2023-06-18 04:14:00* Test Item Value Reference Range Interpretation Comme nts SODIUM (test code = NA) 131 mmol/L 136-145 L POTASSIUM (test code = K) 4.5 mmol/L 3.5-5.1 N CHLORIDE (test code = CL) 95 mmol/l 98-107 L CARBON DIOXIDE (test code = CO2) 30 mmol/L 20-31 N GLUCOSE (test code = GLU) 85 mg/dL 74-106 N BLOOD UREA NITROGEN (test code = BUN) 8 mg/dL 9-23 L GLOMERULAR FILTRATION RATE (test code = GFR) >=60 max estimate mL/min >60 The Glomerular Filtration Rate is a calculated parameterbased on serum Creatinine, patient age and sex. GFR valuesless than 60 mL/min/1.73 square meters are indicative ofChronic Kidney Disease. Values less than 15 mL/min/1.73square meters indicate Kidney failure. The calculation forGFR is based on the CKD-EPI (2020) calculation. This formulais race indifferent and is the recommended formula for GFRby the National Kidney Foundation for Adults.The GFR will not calculate if the sex is unknown or if thepatient's age is <18 years. CREATININE (test code = CREAT) 0.90 mg/dL 0.70-1.30 N CALCIUM (test code = CA) 8.5 mg/dL 8.7-10.4 L CBC W/AUTO [id number] 03:57:00* Test Item Value Reference Range Interpretation Comme nts WHITE BLOOD CELL (test code = WBC) 9.0 x10 3/uL 4.8-10.8 N RED BLOOD CELL (test code = RBC) 2.79 x10 6/uL 4.70-6.10 L HEMOGLOBIN (test code = HGB) 9.1 g/dL 14.0-18.0 L HEMATOCRIT (test code = HCT) 27.1 % 42.0-52.0 L MEAN CELL VOLUME (test code = MCV) 97.1 fL 80.0-94.0 H MEAN CELL HGB (test code = MCH) 32.6 pg 27-31 H MEAN CELL HGB CONCENTRATION (test code = MCHC) 33.6 G/DL 33-36.5 N RED CELL DISTRIBUTION WIDTH (test code = RDW) 13.5 % 12.9-16.9 N PLATELET COUNT (test code = PLT) 214 x10 3/uL 150-440 N MEAN PLATELET VOLUME (test c ode = MPV) 9.9 fL 8.9-12.4 N NEUTROPHIL % (test code = NT%) 71.1 % 42.2-75.2 N LYMPHOCYTE % (test code = LY%) 13.1 % 20.5-51.1 L MONOCYTE % (test code = MO%) 12.7 % 1.7-9.3 H EOSINOPHIL % (test code = EO%) 1.1 % 0.0-7.0 N BASOPHIL % (test code = BA%) 0.4 % 0-2.5 N NEUTROPHIL # (test code = NT#) 6.41 x10 3/uL 1.80-7.70 N LYMPHOCYTE # (test code = LY#) 1.18 x10 3/uL 1.00-4.80 N MONOCYTE # (test code = MO#) 1.15 x10 3/uL 0.00-0.80 H EOSINOPHIL # (test code = EO#) 0.10 x10 3/uL 0.00-0.45 N BASOPHIL # (test code = BA#) 0.04 x10 3/uL 0.0-0.20 N BASIC METABOLIC [id number] 17:22:00* Test Item Value Reference Range Interpretation Comme nts SODIUM (test code = NA) 131 mmol/L 136-145 L POTASSIUM (test code = K) 3.6 mmol/L 3.5-5.1 N CHLORIDE (test code = CL) 95 mmol/l 98-107 L CARBON DIOXIDE (test code = CO2) 30 mmol/L 20-31 N GLUCOSE (test code = GLU) 92 mg/dL 74-106 N BLOOD UREA NITROGEN (test code = BUN) 9 mg/dL 9-23 N GLOMERULAR FILTRATION RATE (test code = GFR) >=60 max estimate mL/min >60 The Glomerular Filtration Rate is a calculated parameterbased on serum Creatinine, patient age and sex. GFR valuesless than 60 mL/min/1.73 square meters are indicative ofChronic Kidney Disease. Values less than 15 mL/min/1.73square meters indicate Kidney failure. The calculation forGFR is based on the CKD-EPI (202) calculation. This formulais race indifferent and is the recommended formula for GFRby the National Kidney Foundation for Adults.The GFR will not calculate if the sex is unknown or if thepatient's age is <18 years. CREATININE (test code = CREAT) 0.80 mg/dL 0.70-1.30 N CALCIUM (test code = CA) 8.5 mg/dL 8.7-10.4 L Spec Comments: thank youComment: thank [id number] 17:22:00* Test Item Value Reference Range Interpretation Comme nts PHOSPHOROUS (test code = PHOS) 2.2 mg/dL 2.4-5.1 L Spec Comments: thank youComment: thank [id number] 17:22:00* Test Item Value Reference Range Interpretation Comme nts MAGNESIUM (test code = MAG) 1.9 mg/dL 1.6-2.6 N Spec Comments: thank youComment: thank [facility] W/AUTO [id number] 17:08:00* Test Item Value Reference Range Interpretation Comme nts WHITE BLOOD CELL (test code = WBC) 8.6 x10 3/uL 4.8-10.8 N RED BLOOD CELL (test code = RBC) 2.80 x10 6/uL 4.70-6.10 L HEMOGLOBIN (test code = HGB) 9.2 g/dL 14.0-18.0 L HEMATOCRIT (test code = HCT) 27.0 % 42.0-52.0 L MEAN CELL VOLUME (test code = MCV) 96.4 fL 80.0-94.0 H MEAN CELL HGB (test code = MCH) 32.9 pg 27-31 H MEAN CELL HGB CONCENTRATION (test code = MCHC) 34.1 G/DL 33-36.5 N RED CELL DISTRIBUTION WIDTH (test code = RDW) 13.2 % 12.9-16.9 N PLATELET COUNT (test code = PLT) 186 x10 3/uL 150-440 N MEAN PLATELET VOLUME (test c ode = MPV) 9.8 fL 8.9-12.4 N NEUTROPHIL % (test code = NT%) 72.1 % 42.2-75.2 N LYMPHOCYTE % (test code = LY%) 14.0 % 20.5-51.1 L MONOCYTE % (test code = MO%) 11.6 % 1.7-9.3 H EOSINOPHIL % (test code = EO%) 0.9 % 0.0-7.0 N BASOPHIL % (test code = BA%) 0.2 % 0-2.5 N NEUTROPHIL # (test code = NT#) 6.23 x10 3/uL 1.80-7.70 N LYMPHOCYTE # (test code = LY#) 1.21 x10 3/uL 1.00-4.80 N MONOCYTE # (test code = MO#) 1.00 x10 3/uL 0.00-0.80 H EOSINOPHIL # (test code = EO#) 0.08 x10 3/uL 0.00-0.45 N BASOPHIL # (test code = BA#) 0.02 x10 3/uL 0.0-0.20 N Spec Comments: thank [facility] METABOLIC [id number] 05:03:00* Test Item Value Reference Range Interpretation Comme nts SODIUM (test code = NA) 130 mmol/L 136-145 L POTASSIUM (test code = K) 3.4 mmol/L 3.5-5.1 L CHLORIDE (test code = CL) 95 mmol/l 98-107 L CARBON DIOXIDE (test code = CO2) 31 mmol/L 20-31 N GLUCOSE (test code = GLU) 106 mg/dL 74-106 N BLOOD UREA NITROGEN (test code = BUN) 10 mg/dL 9-23 N GLOMERULAR FILTRATION RATE (test code = GFR) >=60 max estimate mL/min >60 The Glomerular Filtration Rate is a calculated parameterbased on serum Creatinine, patient age and sex. GFR valuesless than 60 mL/min/1.73 square meters are indicative ofChronic Kidney Disease. Values less than 15 mL/min/1.73square meters indicate Kidney failure. The calculation forGFR is based on the CKD-EPI (2020) calculation. This formulais race indifferent and is the recommended formula for GFRby the National Kidney Foundation for Adults.The GFR will not calculate if the sex is unknown or if thepatient's age is <18 years. CREATININE (test code = CREAT) 1.00 mg/dL 0.70-1.30 N CALCIUM (test code = CA) 8.6 mg/dL 8.7-10.4 L [id number] 05:03:00* Test Item Value Reference Range Interpretation Comme nts PHOSPHOROUS (test code = PHOS) 2.4 mg/dL 2.4-5.1 N [id number] 05:03:00* Test Item Value Reference Range Interpretation Comme nts MAGNESIUM (test code = MAG) 1.8 mg/dL 1.6-2.6 N CBC W/AUTO [id number] 04:44:00* Test Item Value Reference Range Interpretation Comme nts WHITE BLOOD CELL (test code = WBC) 10.3 x10 3/uL 4.8-10.8 N RED BLOOD CELL (test code = RBC) 2.57 x10 6/uL 4.70-6.10 L HEMOGLOBIN (test code = HGB) 8.7 g/dL 14.0-18.0 L HEMATOCRIT (test code = HCT) 24.3 % 42.0-52.0 L MEAN CELL VOLUME (test code = MCV) 94.6 fL 80.0-94.0 H MEAN CELL HGB (test code = MCH) 33.9 pg 27-31 H MEAN CELL HGB CONCENTRATION (test code = MCHC) 35.8 G/DL 33-36.5 N RED CELL DISTRIBUTION WIDTH (test code = RDW) 13.3 % 12.9-16.9 N PLATELET COUNT (test code = PLT) 162 x10 3/uL 150-440 N MEAN PLATELET VOLUME (test c ode = MPV) 10.4 fL 8.9-12.4 N NEUTROPHIL % (test code = NT%) 75.3 % 42.2-75.2 H LYMPHOCYTE % (test code = LY%) 10.4 % 20.5-51.1 L MONOCYTE % (test code = MO%) 11.9 % 1.7-9.3 H EOSINOPHIL % (test code = EO%) 0.8 % 0.0-7.0 N BASOPHIL % (test code = BA%) 0.4 % 0-2.5 N NEUTROPHIL # (test code = NT#) 7.74 x10 3/uL 1.80-7.70 H LYMPHOCYTE # (test code = LY#) 1.07 x10 3/uL 1.00-4.80 N MONOCYTE # (test code = MO#) 1.22 x10 3/uL 0.00-0.80 H EOSINOPHIL # (test code = EO#) 0.08 x10 3/uL 0.00-0.45 N BASOPHIL # (test code = BA#) 0.04 x10 3/uL 0.0-0.20 N BASIC METABOLIC [id number] 18:38:00* Test Item Value Reference Range Interpretation Comme nts SODIUM (test code = NA) 127 mmol/L 136-145 L POTASSIUM (test code = K) 4.5 mmol/L 3.5-5.1 N CHLORIDE (test code = CL) 94 mmol/l 98-107 L CARBON DIOXIDE (test code = CO2) 32 mmol/L 20-31 H GLUCOSE (test code = GLU) 116 mg/dL 74-106 H BLOOD UREA NITROGEN (test code = BUN) 11 mg/dL 9-23 N GLOMERULAR FILTRATION RATE (test code = GFR) >=60 max estimate mL/min >60 The Glomerular Filtration Rate is a calculated parameterbased on serum Creatinine, patient age and sex. GFR valuesless than 60 mL/min/1.73 square meters are indicative ofChronic Kidney Disease. Values less than 15 mL/min/1.73square meters indicate Kidney failure. The calculation forGFR is based on the CKD-EPI (2020) calculation. This formulais race indifferent and is the recommended formula for GFRby the National Kidney Foundation for Adults.The GFR will not calculate if the sex is unknown or if thepatient's age is <18 years. CREATININE (test code = CREAT) 1.00 mg/dL 0.70-1.30 N CALCIUM (test code = CA) 8.5 mg/dL 8.7-10.4 L [id number] 18:38:00* Test Item Value Reference Range Interpretation Comme nts PHOSPHOROUS (test code = PHOS) 2.5 mg/dL 2.4-5.1 N [id number] 18:38:00* Test Item Value Reference Range Interpretation Comme nts MAGNESIUM (test code = MAG) 1.9 mg/dL 1.6-2.6 N BLOOD GAS [id number] 12:29:00* Test Item Value Reference Range Interpretation Comme nts ARTERIAL BLOOD GAS PH (test code = PHA) 7.41 7.35-7.45 N ARTERIAL BLOOD GAS PCO2 (test code = PCO2A) 43.3 mmHg 35.0-45.0 N ARTERIAL BLOOD GAS PO2 (test code = PO2A) 55.5 mmHg 80.0-95.0 L BICARBONATE TOTAL HCO3 (test code = HCO3) 27.0 mmol/L 22.0-24.0 H BASE EXCESS (test code = UZIEL) 2.1 mmol/L See_Comment H [Automated message] The system which generated this result transmitted reference range: (+/-)2.0. The reference range was not used to interpret this result as normal/abnormal. ABG O2 SATURATION (test code = SATA) 90.3 % 95.0-100.0 L ARTERIAL FIO2 (test code = FIO2A) 28.0 % ABG VENT MODE (test code = MODEA) NASAL CANNULA ALLENS TEST (test code = ALLENS) NOT APPLICABLE SODIUM (POC) (test code = NA/ABG) 129 mmol/L 135-147 L POTASSIUM (POC) (test code = K/ABG) 3.86 mmol/L 3.6-5.2 N CHLORIDE (ARTERIAL) (test code = CL/ABG) 94 mmol/L 98-108 L GLUCOSE (test code = GLU/ABG) 103 mg/dL 70-104 N IONIZED CALCIUM (test code = CAIABG) 1.08 mmol/L 1.12-1.32 L POC LACTIC ACID (test code = POCLAC) 1.64 mmol/L 0.5-2.2 N TOTAL HGB (test code = THB) 11.4 g/dL 13.0-17.0 L OXYHEMOGLOBIN (test code = OOHGBT) 89.8 % 92.0-98.0 L CARBOXYHEMOGLOBIN (test code = HOHGBT) 0.3 % 0-5.0 N METHEMOGLOBIN (test code = METHGB) <0.8 % 0-1.5 N HHb (test code = HHB) 9.6 % TCO2 ARTERIAL (test code = TCO2A) 28.3 MMOL/L 24-30 N - XR CHEST 1 [id number] 09:36:00 [facility] 1960 Sex: MPatient Name: KOTA MONTES Unit No: [id number] EXAMS: CPT CODE: [id number] XR CHEST 1 V 61101 Chest one view AP 06/16/2023 9:35 AM CLINICAL INDICATION: Postop COMPARISON: 06/15/2023 LOCATION: W1 IMPRESSION: Cardiac mediastinal contours are stable. There is mild pulmonary edema. There is bibasilar atelectasis. No pneumothorax is evident. Sternotomy wires remain midline. at 0936 Reported and signed by: NEEMA SIMMONS M.D. CC: Kurtis Lynch MD; Haritha DOOLEY; Sherrie Stein MD Technologist: Mylene Bustillo Time: DAP (Gy m2): Air Kerma (mGy): Trscr Dt/Tm: 06/16/2023 (0936) by:[email or web address] Printed Date/Time: 06/16/2023 (1139) Name: KOTA MONTES MAYDA [facility] Phys: Haritha Matthew [address] : 1960 Age: 62 Sex: [place] [address] Loc: P.0303 1 Exam Date: 06/16/2023 Status: ADM IN PH: FAX: PAGE 1 Signed ReportCOMPREHENSIVE METABOLIC PANEL 2023-06-16 04:47:00* Test Item Value Reference Range Interpretation Comme nts SODIUM (test code = NA) 130 mmol/L 136-145 L POTASSIUM (test code = K) 3.9 mmol/L 3.5-5.1 CHLORIDE (test code = CL) 96 mmol/l 98-107 L CARBON DIOXIDE (test code = CO2) 31 mmol/L 20-31 N GLUCOSE (test code = GLU) 94 mg/dL 74-106 N BLOOD UREA NITROGEN (test code = BUN) 11 mg/dL 9-23 N GLOMERULAR FILTRATION RATE (test code = GFR) >=60 max estimate mL/min >60 The Glomerular Filtration Rate is a calculated parameterbased on serum Creatinine, patient age and sex. GFR valuesless than 60 mL/min/1.73 square meters are indicative ofChronic Kidney Disease. Values less than 15 mL/min/1.73square meters indicate Kidney failure. The calculation forGFR is based on the CKD-EPI (2020) calculation. This formulais race indifferent and is the recommended formula for GFRby the National Kidney Foundation for Adults.The GFR will not calculate if the sex is unknown or if thepatient's age is <18 years. CREATININE (test code = CREAT) 1.00 mg/dL 0.70-1.30 N TOTAL PROTEIN (test code = PROT) 5.6 g/dL 5.7-8.2 L ALBUMIN (test code = ALB) 3.6 g/dL 3.2-4.8 N CALCIUM (test code = CA) 9.0 mg/dL 8.7-10.4 N BILIRUBIN TOTAL (test code = BILT) 0.7 mg/dL 0.3-1.2 N SGOT/AST (test code = AST) 143 U/L <34 H SGPT/ALT (test code = ALT) 31 U/L 10-49 N ALKALINE PHOSPHATASE (test code = ALKP) 51.0 U/L 46-116 N [id number] 04:47:00* Test Item Value Reference Range Interpretation Comme nts PHOSPHOROUS (test code = PHOS) 2.9 mg/dL 2.4-5.1 N [id number] 04:47:00* Test Item Value Reference Range Interpretation Comme nts MAGNESIUM (test code = MAG) 1.7 mg/dL 1.6-2.6 N CBC W/AUTO [id number] 04:25:00* Test Item Value Reference Range Interpretation Comme nts WHITE BLOOD CELL (test code = WBC) 11.5 x10 3/uL 4.8-10.8 H RED BLOOD CELL (test code = RBC) 2.87 x10 6/uL 4.70-6.10 L HEMOGLOBIN (test code = HGB) 9.7 g/dL 14.0-18.0 L HEMATOCRIT (test code = HCT) 28.7 % 42.0-52.0 L MEAN CELL VOLUME (test code = MCV) 100.0 fL 80.0-94.0 H MEAN CELL HGB (test code = MCH) 33.8 pg 27-31 H MEAN CELL HGB CONCENTRATION (test code = MCHC) 33.8 G/DL 33-36.5 N RED CELL DISTRIBUTION WIDTH (test code = RDW) 13.4 % 12.9-16.9 N PLATELET COUNT (test code = PLT) 132 x10 3/uL 150-440 L MEAN PLATELET VOLUME (test c ode = MPV) 9.9 fL 8.9-12.4 N NEUTROPHIL % (test code = NT%) 77.1 % 42.2-75.2 H LYMPHOCYTE % (test code = LY%) 12.7 % 20.5-51.1 L MONOCYTE % (test code = MO%) 8.8 % 1.7-9.3 N EOSINOPHIL % (test code = EO%) 0.5 % 0.0-7.0 N BASOPHIL % (test code = BA%) 0.4 % 0-2.5 N NEUTROPHIL # (test code = NT#) 8.88 x10 3/uL 1.80-7.70 H LYMPHOCYTE # (test code = LY#) 1.46 x10 3/uL 1.00-4.80 N MONOCYTE # (test code = MO#) 1.02 x10 3/uL 0.00-0.80 H EOSINOPHIL # (test code = EO#) 0.06 x10 3/uL 0.00-0.45 N BASOPHIL # (test code = BA#) 0.05 x10 3/uL 0.0-0.20 N CBC W/AUTO [id number] 18:06:00* Test Item Value Reference Range Interpretation Comme nts WHITE BLOOD CELL (test code = WBC) 13.3 x10 3/uL 4.8-10.8 H RED BLOOD CELL (test code = RBC) 2.95 x10 6/uL 4.70-6.10 L HEMOGLOBIN (test code = HGB) 9.9 g/dL 14.0-18.0 L HEMATOCRIT (test code = HCT) 29.6 % 42.0-52.0 L MEAN CELL VOLUME (test code = MCV) 100.3 fL 80.0-94.0 H MEAN CELL HGB (test code = MCH) 33.6 pg 27-31 H MEAN CELL HGB CONCENTRATION (test code = MCHC) 33.4 G/DL 33-36.5 N RED CELL DISTRIBUTION WIDTH (test code = RDW) 13.5 % 12.9-16.9 N PLATELET COUNT (test code = PLT) 143 x10 3/uL 150-440 L MEAN PLATELET VOLUME (test code = MPV) 10.0 fL 8.9-12.4 N NEUTROPHIL % (test code = NT%) 82.4 % 42.2-75.2 H LYMPHOCYTE % (test code = LY%) 7.6 % 20.5-51.1 L MONOCYTE % (test code = MO%) 8.2 % 1.7-9.3 N EOSINOPHIL % (test code = EO%) 0.5 % 0.0-7.0 N BASOPHIL % (test code = BA%) 0.5 % 0-2.5 N NEUTROPHIL # (test code = NT#) 11.01 x10 3/uL 1.80-7.70 H LYMPHOCYTE # (test code = LY#) 1.01 x10 3/uL 1.00-4.80 N MONOCYTE # (test code = MO#) 1.09 x10 3/uL 0.00-0.80 H EOSINOPHIL # (test code = EO#) 0.06 x10 3/uL 0.00-0.45 N BASOPHIL # (test code = BA#) 0.06 x10 3/uL 0.0-0.20 N Spec Comments: thank [facility] METABOLIC [id number] 17:22:00* Test Item Value Reference Range Interpretation Comme nts SODIUM (test code = NA) 129 mmol/L 136-145 L POTASSIUM (test code = K) 4.9 mmol/L 3.5-5.1 N CHLORIDE (test code = CL) 98 mmol/l 98-107 N CARBON DIOXIDE (test code = CO2) 26 mmol/L 20-31 N GLUCOSE (test code = GLU) 101 mg/dL 74-106 N BLOOD UREA NITROGEN (test code = BUN) 8 mg/dL 9-23 L GLOMERULAR FILTRATION RATE (test code = GFR) >=60 max estimate mL/min >60 The Glomerular Filtration Rate is a calculated parameterbased on serum Creatinine, patient age and sex. GFR valuesless than 60 mL/min/1.73 square meters are indicative ofChronic Kidney Disease. Values less than 15 mL/min/1.73square meters indicate Kidney failure. The calculation forGFR is based on the CKD-EPI (2020) calculation. This formulais race indifferent and is the recommended formula for GFRby the National Kidney Foundation for Adults.The GFR will not calculate if the sex is unknown or if thepatient's age is <18 years. CREATININE (test code = CREAT) 1.00 mg/dL 0.70-1.30 N CALCIUM (test code = CA) 8.5 mg/dL 8.7-10.4 L Comment: thank [id number] 17:22:00* Test Item Value Reference Range Interpretation Comme nts PHOSPHOROUS (test code = PHOS) 2.5 mg/dL 2.4-5.1 N Comment: thank [id number] 17:22:00* Test Item Value Reference Range Interpretation Comme nts MAGNESIUM (test code = MAG) 1.8 mg/dL 1.6-2.6 N Comment: [facility] [id number] 08:11:00* Test Item Value Reference Range Interpretation Comme nts ARTERIAL BLOOD GAS PH (test code = PHA) 7.40 7.35-7.45 N ARTERIAL BLOOD GAS PCO2 (test code = PCO2A) 47.7 mmHg 35.0-45.0 H ARTERIAL BLOOD GAS PO2 (test code = PO2A) 67.2 mmHg 80.0-95.0 L BICARBONATE TOTAL HCO3 (test code = HCO3) 28.6 mmol/L 22.0-24.0 H BASE EXCESS (test code = UZIEL) 2.9 mmol/L See_Comment H [Automated messa ge] The system which generated this result transmitted reference range: (+/-)2.0. The reference range was not used to interpret this result as normal/abnormal. ARTERIAL FIO2 (test code = FIO2A) 44.0 % ABG VENT MODE (test code = MODEA) NASAL CANNULA ALLENS TEST (test code = ALLENS) NOT APPLICABLE SODIUM (POC) (test code = NA/ABG) 125 mmol/L 135-147 L POTASSIUM (POC) (test code = K/ABG) 4.17 mmol/L 3.6-5.2 N CHLORIDE (ARTERIAL) (test code = CL/ABG) 93 mmol/L 98-108 L GLUCOSE (test code = GLU/ABG) 105 mg/dL 70-104 H IONIZED CALCIUM (test code = CAIABG) 1.11 mmol/L 1.12-1.32 L POC LACTIC ACID (test code = POCLAC) 2.19 mmol/L 0.5-2.2 N TCO2 ARTERIAL (test code = TCO2A) 30.1 MMOL/L 24-30 H - XR CHEST 1 [id number] 07:41:00 [facility] : 1960 Sex: MPatient Name: MARIKA MONTESVARUN OHARA Unit No: [id number] EXAMS: CPT CODE: [id number] XR CHEST 1 V 59784 Chest one view portable 06/15/2023 7:40 AM CLINICAL INDICATION: Chest pain COMPARISON: The previous day LOCATION: W1 IMPRESSION: Cardiomediastinal contours are within normal limits. There is moderately advanced pulmonary edema. There is bibasilar atelectasis. Superimposed pneumonia should be excluded clinically. Remaining support hardware is unchanged in position. at 0741 Reported and signed by: RAYMUNDO Funez CC: Kurtis Lynch MD; Sherrie Stein MD; Daysi Spain MD Technologist: Dave Granda Fluoro Time: DAP (Gy m2): Air Kerma (mGy): Trscr Dt/Tm: 06/15/2023 (07) by:[email or web address] Printed Date/Time: 06/15/2023 (0744) Name: KOTA MONTES [facility] Phys: ANALILIA.02 - Daysi Spain MD [address] : 1960 Age: 62 Sex: [place] [address] Loc: P.0303 1 Exam Date: 06/15/2023 Status: ADM IN PH: FAX: PAGE 1 Signed ReportBASIC METABOLIC PANEL 2023-06-15 03:11:00* Test Item Value Reference Range Interpretation Comme nts SODIUM (test code = NA) 132 mmol/L 136-145 L POTASSIUM (test code = K) 4.3 mmol/L 3.5-5.1 N CHLORIDE (test code = CL) 100 mmol/l 98-107 N CARBON DIOXIDE (test code = CO2) 27 mmol/L 20-31 N GLUCOSE (test code = GLU) 108 mg/dL 74-106 H BLOOD UREA NITROGEN (test code = BUN) 10 mg/dL 9-23 N GLOMERULAR FILTRATION RATE (test code = GFR) >=60 max estimate mL/min >60 The Glomerular Filtration Rate is a calculated parameterbased on serum Creatinine, patient age and sex. GFR valuesless than 60 mL/min/1.73 square meters are indicative ofChronic Kidney Disease. Values less than 15 mL/min/1.73square meters indicate Kidney failure. The calculation forGFR is based on the CKD-EPI (2020) calculation. This formulais race indifferent and is the recommended formula for GFRby the National Kidney Foundation for Adults.The GFR will not calculate if the sex is unknown or if thepatient's age is <18 years. CREATININE (test code = CREAT) 0.90 mg/dL 0.70-1.30 N CALCIUM (test code = CA) 8.7 mg/dL 8.7-10.4 N COMPREHENSIVE METABOLIC [id number] 03:11:00* Test Item Value Reference Range Interpretation Comme nts TOTAL PROTEIN (test code = PROT) 5.8 g/dL 5.7-8.2 N ALBUMIN (test code = ALB) 3.7 g/dL 3.2-4.8 N BILIRUBIN TOTAL (test code = BILT) 0.6 mg/dL 0.3-1.2 N SGOT/AST (test code = AST) 270 U/L <34 H SGPT/ALT (test code = ALT) 43 U/L 10-49 N ALKALINE PHOSPHATASE (test c ode = ALKP) 49.0 U/L 46-116 N [id number] 03:11:00* Test Item Value Reference Range Interpretation Comme nts PHOSPHOROUS (test code = PHOS) 2.5 mg/dL 2.4-5.1 N [id number] 03:11:00* Test Item Value Reference Range Interpretation Comme nts MAGNESIUM (test code = MAG) 1.8 mg/dL 1.6-2.6 N CBC W/AUTO [id number] 02:52:00* Test Item Value Reference Range Interpretation Comme nts WHITE BLOOD CELL (test code = WBC) 12.5 x10 3/uL 4.8-10.8 H RED BLOOD CELL (test code = RBC) 3.06 x10 6/uL 4.70-6.10 L HEMOGLOBIN (test code = HGB) 10.1 g/dL 14.0-18.0 L HEMATOCRIT (test code = HCT) 30.3 % 42.0-52.0 L MEAN CELL VOLUME (test code = MCV) 99.0 fL 80.0-94.0 H MEAN CELL HGB (test code = MCH) 33.0 pg 27-31 H MEAN CELL HGB CONCENTRATION (test code = MCHC) 33.3 G/DL 33-36.5 N RED CELL DISTRIBUTION WIDTH (test code = RDW) 13.5 % 12.9-16.9 N PLATELET COUNT (test code = PLT) 139 x10 3/uL 150-440 L MEAN PLATELET VOLUME (test c ode = MPV) 9.7 fL 8.9-12.4 N NEUTROPHIL % (test code = NT%) 77.6 % 42.2-75.2 H LYMPHOCYTE % (test code = LY%) 11.0 % 20.5-51.1 L MONOCYTE % (test code = MO%) 10.4 % 1.7-9.3 H EOSINOPHIL % (test code = EO%) 0.2 % 0.0-7.0 N BASOPHIL % (test code = BA%) 0.5 % 0-2.5 N NEUTROPHIL # (test code = NT#) 9.69 x10 3/uL 1.80-7.70 H LYMPHOCYTE # (test code = LY#) 1.38 x10 3/uL 1.00-4.80 N MONOCYTE # (test code = MO#) 1.30 x10 3/uL 0.00-0.80 H EOSINOPHIL # (test code = EO#) 0.03 x10 3/uL 0.00-0.45 N BASOPHIL # (test code = BA#) 0.06 x10 3/uL 0.0-0.20 N BASIC METABOLIC [id number] 15:34:00* Test Item Value Reference Range Interpretation Comme nts SODIUM (test code = NA) 132 mmol/L 136-145 L POTASSIUM (test code = K) 3.9 mmol/L 3.5-5.1 N CHLORIDE (test code = CL) 99 mmol/l 98-107 N CARBON DIOXIDE (test code = CO2) 28 mmol/L 20-31 N GLUCOSE (test code = GLU) 106 mg/dL 74-106 N BLOOD UREA NITROGEN (test code = BUN) 10 mg/dL 9-23 N GLOMERULAR FILTRATION RATE (test code = GFR) >=60 max estimate mL/min >60 The Glomerular Filtration Rate is a calculated parameterbased on serum Creatinine, patient age and sex. GFR valuesless than 60 mL/min/1.73 square meters are indicative ofChronic Kidney Disease. Values less than 15 mL/min/1.73square meters indicate Kidney failure. The calculation forGFR is based on the CKD-EPI (202) calculation. This formulais race indifferent and is the recommended formula for GFRby the National Kidney Foundation for Adults.The GFR will not calculate if the sex is unknown or if thepatient's age is <18 years. CREATININE (test code = CREAT) 0.90 mg/dL 0.70-1.30 N CALCIUM (test code = CA) 8.4 mg/dL 8.7-10.4 L [id number] 15:34:00* Test Item Value Reference Range Interpretation Comme nts PHOSPHOROUS (test code = PHOS) 2.8 mg/dL 2.4-5.1 [id number] 15:34:00* Test Item Value Reference Range Interpretation Comme nts MAGNESIUM (test code = MAG) 1.9 mg/dL 1.6-2.6 N CBC W/AUTO [id number] 15:15:00* Test Item Value Reference Range Interpretation Comme nts WHITE BLOOD CELL (test code = WBC) 10.0 x10 3/uL 4.8-10.8 N RED BLOOD CELL (test code = RBC) 3.16 x10 6/uL 4.70-6.10 L HEMOGLOBIN (test code = HGB) 10.5 g/dL 14.0-18.0 L HEMATOCRIT (test code = HCT) 31.2 % 42.0-52.0 L MEAN CELL VOLUME (test code = MCV) 98.7 fL 80.0-94.0 H MEAN CELL HGB (test code = MCH) 33.2 pg 27-31 H MEAN CELL HGB CONCENTRATION (test code = MCHC) 33.7 G/DL 33-36.5 N RED CELL DISTRIBUTION WIDTH (test code = RDW) 13.4 % 12.9-16.9 N PLATELET COUNT (test code = PLT) 143 x10 3/uL 150-440 L MEAN PLATELET VOLUME (test c ode = MPV) 10.0 fL 8.9-12.4 N NEUTROPHIL % (test code = NT%) 73.9 % 42.2-75.2 N LYMPHOCYTE % (test code = LY%) 14.8 % 20.5-51.1 L MONOCYTE % (test code = MO%) 9.9 % 1.7-9.3 H EOSINOPHIL % (test code = EO%) 0.6 % 0.0-7.0 N BASOPHIL % (test code = BA%) 0.5 % 0-2.5 N NEUTROPHIL # (test code = NT#) 7.36 x10 3/uL 1.80-7.70 N LYMPHOCYTE # (test code = LY#) 1.48 x10 3/uL 1.00-4.80 N MONOCYTE # (test code = MO#) 0.99 x10 3/uL 0.00-0.80 H EOSINOPHIL # (test code = EO#) 0.06 x10 3/uL 0.00-0.45 N BASOPHIL # (test code = BA#) 0.05 x10 3/uL 0.0-0.20 N - XR CHEST 1 [id number] 08:06:00 [facility] 1960 Sex: MPatient Name: KOTA MONTES Unit No: [id number] EXAMS: CPT CODE: [id number] XR CHEST 1 V 62422 Clinical Information: Cardiac surgery postop Dictation Location: A 1 COMPARISON: 06/13/2023. FINDINGS: Portable frontal view of the chest taken at 0501 hours shows monitoring electrodes overlying the chest wall. ET has been removed. Postoperative changes and support tubes and lines are otherwise unchanged. Heart size mildly enlarged with mild perihilar and basilar opacities. No interval bone changes. IMPRESSION: 1. Removal of ET tube. 2. Increasing mild perihilar and basilar opacities. at 0806 Reportedand signed by: BEATA EDEN M.D. CC: Kurtis Lynch MD; Sherrie Stein MD; Nnamdi Rachel MD Technologist: Dave Bustillo Time: DAP (Gy m2): Air Kerma (mGy): Trscr Dt/Tm: 06/14/2023 (08) by:Bell Printed Date/Time: 06/14/2023 (0809) Name: KOTA MONTES OHARA [facility] Phys: Sherrie Paredes MD [address] : 1960 Age: 62 Sex: [place] [address] Loc: P.0303 1 Exam Date: 06/14/2023 Status: ADM IN PH: FAX: PAGE 1 Signed ReportBLOOD GAS [id number] 04:40:00* Test Item Value Reference Range Interpretation Comme nts ARTERIAL BLOOD GAS PH (test code = PHA) 7.36 7.35-7.45 N ARTERIAL BLOOD GAS PCO2 (test code = PCO2A) 48.5 mmHg 35.0-45.0 H ARTERIAL BLOOD GAS PO2 (test code = PO2A) 78.6 mmHg 80.0-95.0 L BICARBONATE TOTAL HCO3 (test code = HCO3) 27.0 mmol/L 22.0-24.0 H BASE EXCESS (test code = UZIEL) 1.1 mmol/L See_Comment N [Automated message] The system which generated this result transmitted reference range: (+/-)2.0. The reference range was not used to interpret this result as normal/abnormal. ABG O2 SATURATION (test code = SATA) 95.2 % 95.0-100.0 N ARTERIAL FIO2 (test code = FIO2A) 28.0 % ABG VENT MODE (test code = MODEA) NASAL CANNULA ALLENS TEST (test code = ALLENS) NOT APPLICABLE SODIUM (POC) (test code = NA/ABG) 132 mmol/L 135-147 L POTASSIUM (POC) (test code = K/ABG) 4.10 mmol/L 3.6-5.2 N CHLORIDE (ARTERIAL) (test code = CL/ABG) 99 mmol/L 98-108 N GLUCOSE (test code = GLU/ABG) 106 mg/dL 70-104 H IONIZED CALCIUM (test code = CAIABG) 1.11 mmol/L 1.12-1.32 L POC LACTIC ACID (test code = POCLAC) 1.26 mmol/L 0.5-2.2 N TOTAL HGB (test code = THB) 11.7 g/dL 13.0-17.0 L OXYHEMOGLOBIN (test code = OOHGBT) 94.5 % 92.0-98.0 N CARBOXYHEMOGLOBIN (test code = HOHGBT) 0.4 % 0-5.0 N METHEMOGLOBIN (test code = METHGB) <0.8 % 0-1.5 N HHb (test code = HHB) 4.8 % TCO2 ARTERIAL (test code = TCO2A) 28.5 MMOL/L 24-30 N BASIC METABOLIC [id number] 03:55:00* Test Item Value Reference Range Interpretation Comme nts SODIUM (test code = NA) 137 mmol/L 136-145 N POTASSIUM (test code = K) 4.3 mmol/L 3.5-5.1 N CHLORIDE (test code = CL) 106 mmol/l 98-107 N CARBON DIOXIDE (test code = CO2) 28 mmol/L 20-31 N GLUCOSE (test code = GLU) 112 mg/dL 74-106 H BLOOD UREA NITROGEN (test code = BUN) 9 mg/dL 9-23 N GLOMERULAR FILTRATION RATE (test code = GFR) >=60 max estimate mL/min >60 The Glomerular Filtration Rate is a calculated parameterbased on serum Creatinine, patient age and sex. GFR valuesless than 60 mL/min/1.73 square meters are indicative ofChronic Kidney Disease. Values less than 15 mL/min/1.73square meters indicate Kidney failure. The calculation forGFR is based on the CKD-EPI (202) calculation. This formulais race indifferent and is the recommended formula for GFRby the National Kidney Foundation for Adults.The GFR will not calculate if the sex is unknown or if thepatient's age is <18 years. CREATININE (test code = CREAT) 0.80 mg/dL 0.70-1.30 N CALCIUM (test code = CA) 8.5 mg/dL 8.7-10.4 L LIVER FUNCTION [id number] 03:55:00* Test Item Value Reference Range Interpretation Comme nts TOTAL PROTEIN (test code = PROT) 5.1 g/dL 5.7-8.2 L ALBUMIN (test code = ALB) 3.7 g/dL 3.2-4.8 N BILIRUBIN TOTAL (test code = BILT) 0.4 mg/dL 0.3-1.2 N BILIRUBIN DIRECT (test code = BILD) 0.2 mg/dL <0.3 N SGOT/AST (test code = AST) 174 U/L <34 H SGPT/ALT (test code = ALT) 34 U/L 10-49 N ALKALINE PHOSPHATASE (test c ode = ALKP) 51.0 U/L 46-116 N [id number] 03:55:00* Test Item Value Reference Range Interpretation Comme nts PHOSPHOROUS (test code = PHOS) 4.6 mg/dL 2.4-5.1 [id number] 03:55:00* Test Item Value Reference Range Interpretation Comme nts MAGNESIUM (test code = MAG) 2.0 mg/dL 1.6-2.6 N CBC W/AUTO [id number] 03:35:00* Test Item Value Reference Range Interpretation Comme nts WHITE BLOOD CELL (test code = WBC) 9.5 x10 3/uL 4.8-10.8 N RED BLOOD CELL (test code = RBC) 3.25 x10 6/uL 4.70-6.10 L HEMOGLOBIN (test code = HGB) 10.9 g/dL 14.0-18.0 L HEMATOCRIT (test code = HCT) 31.7 % 42.0-52.0 L MEAN CELL VOLUME (test code = MCV) 97.5 fL 80.0-94.0 H MEAN CELL HGB (test code = MCH) 33.5 pg 27-31 H MEAN CELL HGB CONCENTRATION (test code = MCHC) 34.4 G/DL 33-36.5 N RED CELL DISTRIBUTION WIDTH (test code = RDW) 13.6 % 12.9-16.9 N PLATELET COUNT (test code = PLT) 165 x10 3/uL 150-440 N MEAN PLATELET VOLUME (test c ode = MPV) 9.8 fL 8.9-12.4 N NEUTROPHIL % (test code = NT%) 78.1 % 42.2-75.2 H LYMPHOCYTE % (test code = LY%) 11.4 % 20.5-51.1 L MONOCYTE % (test code = MO%) 9.5 % 1.7-9.3 H EOSINOPHIL % (test code = EO%) 0.1 % 0.0-7.0 N BASOPHIL % (test code = BA%) 0.5 % 0-2.5 N NEUTROPHIL # (test code = NT#) 7.37 x10 3/uL 1.80-7.70 N LYMPHOCYTE # (test code = LY#) 1.08 x10 3/uL 1.00-4.80 N MONOCYTE # (test code = MO#) 0.90 x10 3/uL 0.00-0.80 H EOSINOPHIL # (test code = EO#) 0.01 x10 3/uL 0.00-0.45 N BASOPHIL # (test code = BA#) 0.05 x10 3/uL 0.0-0.20 N BLOOD GAS [id number] 22:59:00* Test Item Value Reference Range Interpretation Comme nts ARTERIAL BLOOD GAS PH (test code = PHA) 7.37 7.35-7.45 N ARTERIAL BLOOD GAS PCO2 (test code = PCO2A) 45.6 mmHg 35.0-45.0 H ARTERIAL BLOOD GAS PO2 (test code = PO2A) 91.2 mmHg 80.0-95.0 N BICARBONATE TOTAL HCO3 (test code = HCO3) 25.9 mmol/L 22.0-24.0 H BASE EXCESS (test code = UZIEL) 0.4 mmol/L See_Comment N [Automated message] The system which generated this result transmitted reference range: (+/-)2.0. The reference range was not used to interpret this result as normal/abnormal. ABG O2 SATURATION (test code = SATA) 96.7 % 95.0-100.0 N ARTERIAL FIO2 (test code = FIO2A) 32.0 % ABG VENT MODE (test code = MODEA) NASAL CANNULA ALLENS TEST (test code = ALLENS) NOT APPLICABLE SODIUM (POC) (test code = NA/ABG) 138 mmol/L 135-147 N POTASSIUM (POC) (test code = K/ABG) 4.22 mmol/L 3.6-5.2 N CHLORIDE (ARTERIAL) (test code = CL/ABG) 101 mmol/L 98-108 N GLUCOSE (test code = GLU/ABG) 125 mg/dL 70-104 H IONIZED CALCIUM (test code = CAIABG) 1.09 mmol/L 1.12-1.32 L POC LACTIC ACID (test code = POCLAC) 0.99 mmol/L 0.5-2.2 N TOTAL HGB (test code = THB) 12.0 g/dL 13.0-17.0 L CARBOXYHEMOGLOBIN (test code = HOHGBT) 0.4 % 0-5.0 N METHEMOGLOBIN (test code = METHGB) <0.8 % 0-1.5 N HHb (test code = HHB) 3.3 % TCO2 ARTERIAL (test code = TCO2A) 27.3 MMOL/L 24-30 N BLOOD GAS [id number] 20:29:00* Test Item Value Reference Range Interpretation Comme nts ARTERIAL BLOOD GAS PH (test code = PHA) 7.24 7.35-7.45 L ARTERIAL BLOOD GAS PCO2 (test code = PCO2A) 48.4 mmHg 35.0-45.0 H ARTERIAL BLOOD GAS PO2 (test code = PO2A) 152.1 mmHg 80.0-95.0 H BICARBONATE TOTAL HCO3 (test code = HCO3) 20.2 mmol/L 22.0-24.0 L BASE EXCESS (test code = UZIEL) -7.2 mmol/L See_Comment L [Automated message] The system which generated this result transmitted reference range: (+/-)2.0. The reference range was not used to interpret this result as normal/abnormal. ABG O2 SATURATION (test code = SATA) 98.6 % 95.0-100.0 N ARTERIAL FIO2 (test code = FIO2A) 40.0 % ABG VENT MODE (test code = MODEA) NASAL CANNULA ALLENS TEST (test code = ALLENS) NOT APPLICABLE SODIUM (POC) (test code = NA/ABG) 139 mmol/L 135-147 N POTASSIUM (POC) (test code = K/ABG) 4.60 mmol/L 3.6-5.2 N CHLORIDE (ARTERIAL) (test code = CL/ABG) 101 mmol/L 98-108 N GLUCOSE (test code = GLU/ABG) 128 mg/dL 70-104 H IONIZED CALCIUM (test code = CAIABG) 1.21 mmol/L 1.12-1.32 N POC LACTIC ACID (test code = POCLAC) 1.48 mmol/L 0.5-2.2 N TOTAL HGB (test code = THB) 13.3 g/dL 13.0-17.0 N OXYHEMOGLOBIN (test code = OOHGBT) 98.1 % 92.0-98.0 H CARBOXYHEMOGLOBIN (test code = HOHGBT) 0.3 % 0-5.0 N METHEMOGLOBIN (test code = METHGB) <0.8 % 0-1.5 N HHb (test code = HHB) 1.4 % TCO2 ARTERIAL (test code = TCO2A) 21.7 MMOL/L 24-30 L BASIC METABOLIC [id number] 20:17:00* Test Item Value Reference Range Interpretation Comme nts SODIUM (test code = NA) 140 mmol/L 136-145 N POTASSIUM (test code = K) 4.8 mmol/L 3.5-5.1 CHLORIDE (test code = CL) 110 mmol/l 98-107 H CARBON DIOXIDE (test code = CO2) 24 mmol/L 20-31 N GLUCOSE (test code = GLU) 144 mg/dL 74-106 H BLOOD UREA NITROGEN (test code = BUN) 10 mg/dL 9-23 N GLOMERULAR FILTRATION RATE (test code = GFR) >=60 max estimate mL/min >60 The Glomerular Filtration Rate is a calculated parameterbased on serum Creatinine, patient age and sex. GFR valuesless than 60 mL/min/1.73 square meters are indicative ofChronic Kidney Disease. Values less than 15 mL/min/1.73square meters indicate Kidney failure. The calculation forGFR is based on the CKD-EPI (202) calculation. This formulais race indifferent and is the recommended formula for GFRby the National Kidney Foundation for Adults.The GFR will not calculate if the sex is unknown or if thepatient's age is <18 years. CREATININE (test code = CREAT) 0.90 mg/dL 0.70-1.30 N CALCIUM (test code = CA) 7.7 mg/dL 8.7-10.4 L [id number] 20:17:00* Test Item Value Reference Range Interpretation Comme nts PHOSPHOROUS (test code = PHOS) 6.1 mg/dL 2.4-5.1 H [id number] 20:17:00* Test Item Value Reference Range Interpretation Comme nts MAGNESIUM (test code = MAG) 2.5 mg/dL 1.6-2.6 N CBC W/AUTO [id number] 20:00:00* Test Item Value Reference Range Interpretation Comme nts WHITE BLOOD CELL (test code = WBC) 13.7 x10 3/uL 4.8-10.8 H RED BLOOD CELL (test code = RBC) 3.75 x10 6/uL 4.70-6.10 L HEMOGLOBIN (test code = HGB) 12.4 g/dL 14.0-18.0 L HEMATOCRIT (test code = HCT) 37.2 % 42.0-52.0 L MEAN CELL VOLUME (test code = MCV) 99.2 fL 80.0-94.0 H MEAN CELL HGB (test code = MCH) 33.1 pg 27-31 H MEAN CELL HGB CONCENTRATION (test code = MCHC) 33.3 G/DL 33-36.5 N RED CELL DISTRIBUTION WIDTH (test code = RDW) 13.5 % 12.9-16.9 N PLATELET COUNT (test code = PLT) 229 x10 3/uL 150-440 N MEAN PLATELET VOLUME (test code = MPV) 9.9 fL 8.9-12.4 N NEUTROPHIL % (test code = NT%) 86.1 % 42.2-75.2 H LYMPHOCYTE % (test code = LY%) 5.1 % 20.5-51.1 L MONOCYTE % (test code = MO%) 7.9 % 1.7-9.3 N EOSINOPHIL % (test code = EO%) 0.0 % 0.0-7.0 N BASOPHIL % (test code = BA%) 0.2 % 0-2.5 N NEUTROPHIL # (test code = NT#) 11.77 x10 3/uL 1.80-7.70 H LYMPHOCYTE # (test code = LY#) 0.69 x10 3/uL 1.00-4.80 L MONOCYTE # (test code = MO#) 1.08 x10 3/uL 0.00-0.80 H EOSINOPHIL # (test code = EO#) 0.00 x10 3/uL 0.00-0.45 N BASOPHIL # (test code = BA#) 0.03 x10 3/uL 0.0-0.20 N LACTIC [id number] 13:41:00* Test Item Value Reference Range Interpretation Comme nts LACTIC ACID (test code = LACT) 1.20 mmol/L 0.5-2.0 N BASIC METABOLIC [id number] 13:26:00* Test Item Value Reference Range Interpretation Comme nts SODIUM (test code = NA) 137 mmol/L 136-145 N POTASSIUM (test code = K) 3.8 mmol/L 3.5-5.1 N CHLORIDE (test code = CL) 110 mmol/l 98-107 H CARBON DIOXIDE (test code = CO2) 22 mmol/L 20-31 N GLUCOSE (test code = GLU) 166 mg/dL 74-106 H BLOOD UREA NITROGEN (test code = BUN) 9 mg/dL 9-23 N GLOMERULAR FILTRATION RATE (test code = GFR) >=60 max estimate mL/min >60 The Glomerular Filtration Rate is a calculated parameterbased on serum Creatinine, patient age and sex. GFR valuesless than 60 mL/min/1.73 square meters are indicative ofChronic Kidney Disease. Values less than 15 mL/min/1.73square meters indicate Kidney failure. The calculation forGFR is based on the CKD-EPI (2020) calculation. This formulais race indifferent and is the recommended formula for GFRby the National Kidney Foundation for Adults.The GFR will not calculate if the sex is unknown or if thepatient's age is <18 years. CREATININE (test code = CREAT) 0.70 mg/dL 0.70-1.30 N CALCIUM (test code = CA) 7.7 mg/dL 8.7-10.4 L [id number] 13:26:00* Test Item Value Reference Range Interpretation Comme nts PHOSPHOROUS (test code = PHOS) 2.0 mg/dL 2.4-5.1 L [id number] 13:26:00* Test Item Value Reference Range Interpretation Comme nts MAGNESIUM (test code = MAG) 2.8 mg/dL 1.6-2.6 H PROTHROMBIN [id number] 13:13:00* Test Item Value Reference Range Interpretation Comme [facility] PROTHROMBIN TIME PATIENT (test code = PTP) 12.9 SECONDS 10.3-12.9 N INTERNATIONAL NORMAL RATIO (test code = INR) 1.16 0.9-1.11 H INR goals are individualized based on patient specificfactors. The following are only general guidelines: Indications: INR Goal:1. Treatment of venous thromboembolism and 2.0 - 3.0 systemic anticoagulation in a variety of conditions, including atrial fibrillation and mechanical heart valves 2. Mechanical mitral and tricuspid valves, 2.5 - 3.5 systemic anticoagulation for high-risk conditions THROMBOPLASTIN TIME [id number] 13:13:00* Test Item Value Reference Range Interpretation Comme [facility] THROMBOPLASTIN TIME PARTIAL (test code = PTT) 28.6 secs 23.8-34.8 N INTERPRETATIVE D EDGARD: Therapeutic range: Unfractionated Heparin: 60-90 seconds Argatroban: 60-90 seconds - XR CHEST 1 [id number] 13:07:00 [facility] 1960 Sex: MPatient Name: KOTA MONTES Unit No: [id number] EXAMS: CPT CODE: [id number] XR CHEST 1 V 21656 EXAM: Chest one view. Location: A1 HISTORY: Cardiac Surgery Postop COMPARISON: 05/28/2023 FINDINGS: Mediastinal and left chest tubes are present. There is a endotracheal tube with tip approximately 4.8 cm above the elizabeth. There is a right internal jugular cordis with [place]-Chris catheter followed to the pulmonary trunk. Cardiac silhouette is normal in size. Minimal airspace opacities are present at the left lung base. There are no pleural effusions or pneumothorax. IMPRESSION: 1. Postoperative changes from cardiac surgery with support lines and tubes as discussed above. 2. Minimal atelectasis/consolidation at the left lung base. at 1307 Reported and signed by: CATHERINE ORELLANA M.D. CC: Kurtis Lynch MD; Sherrie Gifford; Nnamdi Rachel MD Technologist: Mark Anthony Clarke Fluoro Time: DAP (Gy m2): Air Kerma (mGy): Trscr Dt/Tm: 06/13/2023 (1307) by:[email or web address] Printed Date/Time: 06/13/2023 (1311) Name: [facility]ONTES [facility] Phys: Sherrie Paredes MD [address] : 1960 Age: 62 Sex:[place] [address] Loc: P.0303 1 Exam Date: 06/13/2023 Status: ADM IN PH: FAX: PAGE 1 Signed ReportCBC W/AUTO [id number] 13:00:00* Test Item Value Reference Range Interpretation Comme nts WHITE BLOOD CELL (test code = WBC) 16.1 x10 3/uL 4.8-10.8 H RED BLOOD CELL (test code = RBC) 3.80 x10 6/uL 4.70-6.10 L HEMOGLOBIN (test code = HGB) 12.6 g/dL 14.0-18.0 L HEMATOCRIT (test code = HCT) 37.0 % 42.0-52.0 L MEAN CELL VOLUME (test code = MCV) 97.4 fL 80.0-94.0 H MEAN CELL HGB (test code = MCH) 33.2 pg 27-31 H MEAN CELL HGB CONCENTRATION (test code = MCHC) 34.1 G/DL 33-36.5 N RED CELL DISTRIBUTION WIDTH (test code = RDW) 13.2 % 12.9-16.9 N PLATELET COUNT (test code = PLT) 202 x10 3/uL 150-440 N MEAN PLATELET VOLUME (test code = MPV) 9.7 fL 8.9-12.4 N NEUTROPHIL % (test code = NT%) 87.2 % 42.2-75.2 H LYMPHOCYTE % (test code = LY%) 8.0 % 20.5-51.1 L MONOCYTE % (test code = MO%) 3.7 % 1.7-9.3 N EOSINOPHIL % (test code = EO%) 0.2 % 0.0-7.0 N BASOPHIL % (test code = BA%) 0.2 % 0-2.5 N NEUTROPHIL # (test code = NT#) 14.02 x10 3/uL 1.80-7.70 H LYMPHOCYTE # (test code = LY#) 1.28 x10 3/uL 1.00-4.80 N MONOCYTE # (test code = MO#) 0.59 x10 3/uL 0.00-0.80 N EOSINOPHIL # (test code = EO#) 0.04 x10 3/uL 0.00-0.45 N BASOPHIL # (test code = BA#) 0.04 x10 3/uL 0.0-0.20 N COAGULATION TIME [id number] 11:45:00* Test Item Value Reference Range Interpretation Comme nts COAGULATION TIME ACTIVATED ( test code = ACT) 136 SECONDS 74-137 N COAGULATION TIME [id number] 11:25:00* Test Item Value Reference Range Interpretation Comme nts COAGULATION TIME ACTIVATED ( test code = ACT) 455 SECONDS 74-137 H COAGULATION TIME [id number] 11:02:00* Test Item Value Reference Range Interpretation Comme nts COAGULATION TIME ACTIVATED ( test code = ACT) 509 SECONDS 74-137 H COAGULATION TIME [id number] 10:21:00* Test Item Value Reference Range Interpretation Comme nts COAGULATION TIME ACTIVATED ( test code = ACT) 634 SECONDS 74-137 H PLATELET [id number] 08:49:00* Test Item Value Reference Range Interpretation Comme nts PLATELET FUNCTION ANALYSIS (test code = PFA) 129 SECONDS 80-184 An abnormal COL/ EPI value in combination with a normalCOL/ADP, suggests exposure to platelet inhibiting agents. An abnormal COL/EPI and an abnormal COL/ADP result suggestabnormal platelet function due to intrinsic platelet defectsor von Willebrand's disease. PLATELET [id number] 08:48:00* Test Item Value Reference Range Interpretation Comme nts PLATELET FUNCTION ANALYSIS (test code = PFA) 129 SECONDS 80-184 N An abnormal COL/ EPI value in combination with a normalCOL/ADP, suggests exposure to platelet inhibiting agents. An abnormal COL/EPI and an abnormal COL/ADP result suggestabnormal platelet function due to intrinsic platelet defectsor von Willebrand's disease. PLT RESPONSE TO [id number] 12:15:00* Test Item Value Reference Range Interpretation Comme nts PLT RESPONSE TO PLAVIX (test code = PLAVRES) 133 PRU See_Comment Test results are reported in P2Y12 Reaction Units (PRU) PRU reference range is 194-418 PRU. Values <194 PRU arespecific evidence of a P2Y12 inhibitor effect. PRU Results Interpretation: Normal individuals not taking P2Y12 (pre-drug) 182-335 PRU Evidence of P2Y12 receptor blockade <182 PRU Appropriate response to anti-platelet therapyfor cardiology patients <208 PRU Test results are in P2Y12 Reaction Units (PRU) whichindicate the amount of ADP-mediated aggregation specific tothe platelet P2Y12 receptor and is used to measure theeffects of anti-platelet drugs to this receptor, such asclopidogrel (Plavix). The reference range for individualsNOT receiving a P2Y12 inhibitor is 182-335 PRU. PRU levelsless than 182 are indicative of an anti-platelet effect dueto P2Y12 receptor blockade, Literature suggests that a PRUvalue less than 208 is an appropriate response toanti-platlelet therapy for cardiology patients (Refernce: Parker et al Circulation 2011:154:5899-0267). Optimaltherapeutic and pre-surgical PRU targets have not beenestablished.Test results are reported in P2Y12 Reaction Units (PRU) PRU reference range is 194-418 PRU. Values <194 PRU arespecific evidence of a P2Y12 inhibitor effect. [Automated message] The system which generated this result transmitted reference range: (). The reference range was not used to interpret this result as normal/abnormal. PLT RESPONSE TO [id number] 12:15:00* Test Item Value Reference Range Interpretation Comme nts PLT RESPONSE TO PLAVIX (test code = PLAVRES) 133 PRU PRU Results Inte rpretation: Normal individuals not taking P2Y12 (pre-drug) 182-335 PRU Evidence of P2Y12 receptor blockade <182 PRU Appropriate response to anti-platelet therapyfor cardiology patients <208 PRU Test results are in P2Y12 Reaction Units (PRU) whichindicate the amount of ADP-mediated aggregation specific tothe platelet P2Y12 receptor and is used to measure theeffects of anti-platelet drugs to this receptor, such asclopidogrel (Plavix). The reference range for individualsNOT receiving a P2Y12 inhibitor is 182-335 PRU. PRU levelsless than 182 are indicative of an anti-platelet effect dueto P2Y12 receptor blockade, Literature suggests that a PRUvalue less than 208 is an appropriate response toanti-platlelet therapy for cardiology patients (Refernce: Parker et al Circulation 2011:154:5865-9181). Optimaltherapeutic and pre-surgical PRU targets have not beenestablished. COMPREHENSIVE METABOLIC [id number] 06:43:00* Test Item Value Reference Range Interpretation Comme nts SODIUM (test code = NA) 136 mmol/L 136-145 N POTASSIUM (test code = K) 3.8 mmol/L 3.5-5.1 N CHLORIDE (test code = CL) 106 mmol/l 98-107 N CARBON DIOXIDE (test code = CO2) 24 mmol/L 20-31 N GLUCOSE (test code = GLU) 82 mg/dL 74-106 N BLOOD UREA NITROGEN (test code = BUN) 9 mg/dL 9-23 N GLOMERULAR FILTRATION RATE (test code = GFR) >=60 max estimate mL/min >60 The Glomerular Filtration Rate is a calculated parameterbased on serum Creatinine, patient age and sex. GFR valuesless than 60 mL/min/1.73 square meters are indicative ofChronic Kidney Disease. Values less than 15 mL/min/1.73square meters indicate Kidney failure. The calculation forGFR is based on the CKD-EPI (2020) calculation. This formulais race indifferent and is the recommended formula for GFRby the National Kidney Foundation for Adults.The GFR will not calculate if the sex is unknown or if thepatient's age is <18 years. CREATININE (test code = CREAT) 0.90 mg/dL 0.70-1.30 N TOTAL PROTEIN (test code = PROT) 6.8 g/dL 5.7-8.2 N ALBUMIN (test code = ALB) 4.5 g/dL 3.2-4.8 N CALCIUM (test code = CA) 9.0 mg/dL 8.7-10.4 N BILIRUBIN TOTAL (test code = BILT) 0.5 mg/dL 0.3-1.2 N SGOT/AST (test code = AST) 28 U/L <34 N SGPT/ALT (test code = ALT) 24 U/L 10-49 N ALKALINE PHOSPHATASE (test code = ALKP) 71.0 U/L 46-116 N CBC W/AUTO [id number] 06:34:00* Test Item Value Reference Range Interpretation Comme nts WHITE BLOOD CELL (test code = WBC) 8.2 x10 3/uL 4.8-10.8 N RED BLOOD CELL (test code = RBC) 4.70 x10 6/uL 4.70-6.10 N HEMOGLOBIN (test code = HGB) 15.4 g/dL 14.0-18.0 N HEMATOCRIT (test code = HCT) 45.9 % 42.0-52.0 N MEAN CELL VOLUME (test code = MCV) 97.7 fL 80.0-94.0 H MEAN CELL HGB (test code = MCH) 32.8 pg 27-31 H MEAN CELL HGB CONCENTRATION (test code = MCHC) 33.6 G/DL 33-36.5 N RED CELL DISTRIBUTION WIDTH (test code = RDW) 13.2 % 12.9-16.9 N PLATELET COUNT (test code = PLT) 221 x10 3/uL 150-440 N MEAN PLATELET VOLUME (test c ode = MPV) 9.7 fL 8.9-12.4 N NEUTROPHIL % (test code = NT%) 62.7 % 42.2-75.2 N LYMPHOCYTE % (test code = LY%) 25.5 % 20.5-51.1 N MONOCYTE % (test code = MO%) 9.3 % 1.7-9.3 N EOSINOPHIL % (test code = EO%) 1.3 % 0.0-7.0 N BASOPHIL % (test code = BA%) 0.7 % 0-2.5 N NEUTROPHIL # (test code = NT#) 5.10 x10 3/uL 1.80-7.70 N LYMPHOCYTE # (test code = LY#) 2.08 x10 3/uL 1.00-4.80 N MONOCYTE # (test code = MO#) 0.76 x10 3/uL 0.00-0.80 N EOSINOPHIL # (test code = EO#) 0.11 x10 3/uL 0.00-0.45 N BASOPHIL # (test code = BA#) 0.06 x10 3/uL 0.0-0.20 N PLT RESPONSE TO [id number] 09:13:00* Test Item Value Reference Range Interpretation Comme nts PLT RESPONSE TO PLAVIX (test code = PLAVRES) 111 PRU See_Comment Test results are reported in P2Y12 Reaction Units (PRU) PRU reference range is 194-418 PRU. Values <194 PRU arespecific evidence of a P2Y12 inhibitor effect. PRU Results Interpretation: Normal individuals not taking P2Y12 (pre-drug) 182-335 PRU Evidence of P2Y12 receptor blockade <182 PRU Appropriate response to anti-platelet therapyfor cardiology patients <208 PRU Test results are in P2Y12 Reaction Units (PRU) whichindicate the amount of ADP-mediated aggregation specific tothe platelet P2Y12 receptor and is used to measure theeffects of anti-platelet drugs to this receptor, such asclopidogrel (Plavix). The reference range for individualsNOT receiving a P2Y12 inhibitor is 182-335 PRU. PRU levelsless than 182 are indicative of an anti-platelet effect dueto P2Y12 receptor blockade, Literature suggests that a PRUvalue less than 208 is an appropriate response toanti-platlelet therapy for cardiology patients (Refernce: Parker et al Circulation 2011:154:0076-5656). Optimaltherapeutic and pre-surgical PRU targets have not beenestablished.Test results are reported in P2Y12 Reaction Units (PRU) PRU reference range is 194-418 PRU. Values <194 PRU arespecific evidence of a P2Y12 inhibitor effect. [Automated message] The system which generated this result transmitted reference range: (). The reference range was not used to interpret this result as normal/abnormal. PLT RESPONSE TO [id number] 09:12:00* Test Item Value Reference Range Interpretation Comme nts PLT RESPONSE TO PLAVIX (test code = PLAVRES) 111 PRU PRU Results Inte rpretation: Normal individuals not taking P2Y12 (pre-drug) 182-335 PRU Evidence of P2Y12 receptor blockade <182 PRU Appropriate response to anti-platelet therapyfor cardiology patients <208 PRU Test results are in P2Y12 Reaction Units (PRU) whichindicate the amount of ADP-mediated aggregation specific tothe platelet P2Y12 receptor and is used to measure theeffects of anti-platelet drugs to this receptor, such asclopidogrel (Plavix). The reference range for individualsNOT receiving a P2Y12 inhibitor is 182-335 PRU. PRU levelsless than 182 are indicative of an anti-platelet effect dueto P2Y12 receptor blockade, Literature suggests that a PRUvalue less than 208 is an appropriate response toanti-platlelet therapy for cardiology patients (Refernce: Parker et al Circulation 2011:154:2628-3117). Optimaltherapeutic and pre-surgical PRU targets have not beenestablished. - US RETRO [id number] 15:13:00 [facility] 1960 Sex: MPatient Name: KOTA MONTES Unit No: [id number] EXAMS: CPT CODE: [id number] US RETRO LTD 15095 EXAM: Renal ultrasound Dictation location: A1 INDICATION: Kidney pain COMPARISON: Kidneys as seen on the CT abdomen on 05/21/2022. DISCUSSION: Marlow scale and color images of the kidneys were performed. The kidneys are of normal echogenicity with no focal mass, calcification,or hydronephrosis. The right kidney measures 10.9 x 4.7 x 5cm. The left kidney measures 11.1 x 5.7x 6.1cm. Calculated prostate volume is 21 mL. There is a questionable prostatic calcification. Low bladder volume is noted. IMPRESSION: Unremarkable kidneys. at 1513 Reported and signed by: Yoshi Bennett M.D. CC: Kurtis Lynch MD; Camron DOOLEY; Nnamdi Rachel MD Technologist: Dilia Moralez Probe: Trscr Dt/Tm: 06/04/2023 (151) by:[email or web address] Printed Date/Time: 06/04/2023 (591) Name: KOTA MONTES [facility] Phys: Camron Sol [address] : 1960 Age: 62 Sex: [place] [address] Loc: P.0414 A Exam Date: 06/04/2023 Status: ADM IN PH: FAX: PAGE 1 Signed Report- DUP VEIN [id number] 13:48:00 [facility] : 1960 Sex: MPatient Name: KOTA MONTESO Unit No: [id number] EXAMS: CPT CODE: [id number] DUP VEIN SUSAN [address]649 Exam: Ultrasound venous Doppler, bilateral, vein mapping Location: A1 REASONFOR EXAM: SAPHENOUS VEIN MAPPING Pre Op (CABG) COMPARISON: None. TECHNIQUE: Doppler, marlow-scale andcolor-flow imaging of the bilaterallower extremity venous system was performed. FINDINGS: The femoral vein has a normal appearance. The vessel show normal compressibility, color flow and doppler augme ntation. RIGHT (centimeters): Greater saphenous vein above the knee Proximal: 0.7 Mid: 0.4 Distal: 0.4 Knee: 0.4 Great saphenous vein below the knee- Proximal: 0.2 Mid: 0.2 Distal: 0.3 Small saphenous vein- Proximal: 0.3 Mid: 0.3 Distal: Not visualized Femoral vein Proximal: 0.7 Mid: 0.7 Distal: 1.1 LEFT (CENTIMETERS): Greater saphenous vein above the knee Proximal: 0.6 Mid: 0.4 Distal: 0.4 Knee:0.4 Great saphenous vein below the knee- Proximal: 0.4 Mid: 0.3 Distal: 0.3 Small saphenous vein- Proximal: 0.5 Mid: 0.4 Distal: Not visualized Name: TIMOTHYKOTA OHARA [facility] Phys: Rogerio Mary MD [address] : 1960 Age: 62 Sex: [place] [address] Loc: P.0414 A Exam Date: 06/04/2023 Status: ADM IN PH: FAX: PAGE 1 Signed Report (CONTINUED) Patient Name: KOTA MONTES Unit No: [id number] EXAMS: CPT CODE: [id number] DUP VEIN SUSAN 23370 (Continued) Femoral vein Proximal: 1.1 Mid: 0.8 Distal: 0.9 IMPRESSION: Bilateral lower extremity venous mapping as above. [id number] Reported and signed by: CATHERINE ORELLANA M.D. CC: Kurtis Lynch MD; Rogerio Pike MD; Nnamdi Taveras Technologist: Dilia Moralez Probe: Trscr Dt/Tm: 06/04/2023 (1348) by:[email or web address] Printed Date/Time: 06/04/2023 (9846) Name: KOTA MONTES [facility] Phys: Tuan Mary [address] : 1960 Age: 62 Sex: [place] [address] Loc: P.0414 A Exam Date: 06/04/2023 Status: ADM IN PH: FAX: PAGE 2 Signed ReportPLT RESPONSE TO [id number] 10:14:00* Test Item Value Reference Range Interpretation Comme nts PLT RESPONSE TO PLAVIX (test code = PLAVRES) 8 PRU See_Comment Test results are reported in P2Y12 Reaction Units (PRU) PRU reference range is 194-418 PRU. Values <194 PRU arespecific evidence of a P2Y12 inhibitor effect. PRU Results Interpretation: Normal individuals not taking P2Y12 (pre-drug) 182-335 PRU Evidence of P2Y12 receptor blockade <182 PRU Appropriate response to anti-platelet therapyfor cardiology patients <208 PRU Test results are in P2Y12 Reaction Units (PRU) whichindicate the amount of ADP-mediated aggregation specific tothe platelet P2Y12 receptor and is used to measure theeffects of anti-platelet drugs to this receptor, such asclopidogrel (Plavix). The reference range for individualsNOT receiving a P2Y12 inhibitor is 182-335 PRU. PRU levelsless than 182 are indicative of an anti-platelet effect dueto P2Y12 receptor blockade, Literature suggests that a PRUvalue less than 208 is an appropriate response toanti-platlelet therapy for cardiology patients (Refernce: Parker et al Circulation 2011:154:2959-1533). Optimaltherapeutic and pre-surgical PRU targets have not beenestablished.Test results are reported in P2Y12 Reaction Units (PRU) PRU reference range is 194-418 PRU. Values <194 PRU arespecific evidence of a P2Y12 inhibitor effect. [Automated message] The system which generated this result transmitted reference range: (). The reference range was not used to interpret this result as normal/abnormal. PLT RESPONSE TO [id number] 10:14:00* Test Item Value Reference Range Interpretation Comme nts PLT RESPONSE TO PLAVIX (test code = PLAVRES) 8 PRU PRU Results Inte rpretation: Normal individuals not taking P2Y12 (pre-drug) 182-335 PRU Evidence of P2Y12 receptor blockade <182 PRU Appropriate response to anti-platelet therapyfor cardiology patients <208 PRU Test results are in P2Y12 Reaction Units (PRU) whichindicate the amount of ADP-mediated aggregation specific tothe platelet P2Y12 receptor and is used to measure theeffects of anti-platelet drugs to this receptor, such asclopidogrel (Plavix). The reference range for individualsNOT receiving a P2Y12 inhibitor is 182-335 PRU. PRU levelsless than 182 are indicative of an anti-platelet effect dueto P2Y12 receptor blockade, Literature suggests that a PRUvalue less than 208 is an appropriate response toanti-platlelet therapy for cardiology patients (Refernce: Parker et al Circulation 2011:154:4218-4024). Optimaltherapeutic and pre-surgical PRU targets have not beenestablished. - CT CHEST W/O [id number] 08:27:00 [facility] 1960 Sex: MPatient Name: KOTA MONTES Unit No: [id number] EXAMS: CPT CODE: [id number] CT CHEST W/O CONTRAST 74548 CT chest History: Pre Op (CABG) Comparison: None at this time Location: 5 CT scan of the chest was performed without intravenous contrast. One or more of the following radiation dose reduction techniques was used: automated exposure control, adjustment of mA and/or KV according to patient size, and/or utilization of iterative reconstruction technique. Quality ofExam: Acceptable. Thoracic aorta: Note is made that evaluation for possible aortic dissection is unable to be performed due to the lack of intravenous contrast. The thoracic aorta otherwise appears unremarkable. Other mediastinal structures: The other mediastinal structures are unremarkable. Pulmonary arteries: Assessment for possible pulmonary embolus is unable to be performed on a noncontrast CT scan of the chest. Lymph nodes: No lymphadenopathy is identified. Pleura: There are no pleural effusions. Lung parenchyma: There are minimal patchy ground glass opacities in the lungs anteriorly. There is minimal dependent atelectasis in the lungs. Bones/soft tissues: No concerning bony lesion is identified. No mass lesions are identified. IMPRESSION: There are minimal patchy groundglass opacities in the lungs bilaterally, which could be due to pulmonary edema or pneumonia. There is minimal dependent atelectasis in the lungs. Incidental note is made of cholelithiasis. Otherwise unremarkableCT scan of the chest. [facility] MD [address] DOB: 1960 Age: 62 Sex: [place] [address] Loc: P.0414 A Exam Date: 06/04/2023 Status: ADM IN PH: FAX: PAGE 1 Signed Report (CONTINUED) Patient Name: KOTA MONTES Unit No: [id number] EXAMS: CPT CODE: [id number] CT CHEST W/O CONTRAST 57392 (Continued) at 0827 Reported and signed by: SPENCER ARORA M.D. CC: Kurtis Lynch MD; Rogerio Pike MD; Nnamdi Rachel MD Technologist: Olman Vázquez CTDI: 5.6 DLP: 252 Trscr Dt/Tm: 06/04/2023 (826) by:Emmie Printed Date/Time: 06/04/2023 (3960) Name: KOTA MONTES [facility] Phys: Rogerio Mary MD[address] DOB: 1960 Age: 62 [place]: [place] [address] [id number] Loc: P.0414A Exam Date: 06/04/2023 Status: ADM IN PH: FAX: PAGE 2 Signed ReportPROTHROMBIN [id number] 05:51:00* Test Item Value Reference Range Interpretation Comme nts PROTHROMBIN TIME PATIENT (test code = PTP) 11.4 SECONDS 10.3-12.9 N INTERNATIONAL NORMAL RATIO (test code = INR) 1.02 0.9-1.11 N INR goals are individualized based on patient specificfactors. The following are only general guidelines: Indications: INR Goal:1. Treatment of venous thromboembolism and 2.0 - 3.0 systemic anticoagulation in a variety of conditions, including atrial fibrillation and mechanical heart valves 2. Mechanical mitral and tricuspid valves, 2.5 - 3.5 systemic anticoagulation for high-risk conditions THROMBOPLASTIN TIME [id number] 05:51:00* Test Item Value Reference Range Interpretation Comme nts THROMBOPLASTIN TIME PARTIAL (test code = PTT) 30.1 secs 23.8-34.8 N INTERPRETATIVE D EDGARD: Therapeutic range: Unfractionated Heparin: 60-90 seconds Argatroban: 60-90 seconds COMPREHENSIVE METABOLIC [id number] 05:41:00* Test Item Value Reference Range Interpretation Comme nts SODIUM (test code = NA) 137 mmol/L 136-145 N POTASSIUM (test code = K) 4.4 mmol/L 3.5-5.1 N CHLORIDE (test code = CL) 105 mmol/l 98-107 N CARBON DIOXIDE (test code = CO2) 30 mmol/L 20-31 N GLUCOSE (test code = GLU) 91 mg/dL 74-106 N BLOOD UREA NITROGEN (test code = BUN) 18 mg/dL 9-23 N GLOMERULAR FILTRATION RATE (test code = GFR) >=60 max estimate mL/min >60 The Glomerular Filtration Rate is a calculated parameterbased on serum Creatinine, patient age and sex. GFR valuesless than 60 mL/min/1.73 square meters are indicative ofChronic Kidney Disease. Values less than 15 mL/min/1.73square meters indicate Kidney failure. The calculation forGFR is based on the CKD-EPI (2020) calculation. This formulais race indifferent and is the recommended formula for GFRby the National Kidney Foundation for Adults.The GFR will not calculate if the sex is unknown or if thepatient's age is <18 years. CREATININE (test code = CREAT) 1.00 mg/dL 0.70-1.30 N TOTAL PROTEIN (test code = PROT) 6.7 g/dL 5.7-8.2 N ALBUMIN (test code = ALB) 4.7 g/dL 3.2-4.8 N CALCIUM (test code = CA) 9.5 mg/dL 8.7-10.4 N BILIRUBIN TOTAL (test code = BILT) 0.5 mg/dL 0.3-1.2 N SGOT/AST (test code = AST) 25 U/L <34 N SGPT/ALT (test code = ALT) 28 U/L 10-49 N ALKALINE PHOSPHATASE (test code = ALKP) 79.0 U/L 46-116 N CBC W/AUTO [id number] 05:33:00* Test Item Value Reference Range Interpretation Comme nts WHITE BLOOD CELL (test code = WBC) 7.3 x10 3/uL 4.8-10.8 N RED BLOOD CELL (test code = RBC) 4.54 x10 6/uL 4.70-6.10 L HEMOGLOBIN (test code = HGB) 15.1 g/dL 14.0-18.0 N HEMATOCRIT (test code = HCT) 45.2 % 42.0-52.0 N MEAN CELL VOLUME (test code = MCV) 99.6 fL 80.0-94.0 H MEAN CELL HGB (test code = MCH) 33.3 pg 27-31 H MEAN CELL HGB CONCENTRATION (test code = MCHC) 33.4 G/DL 33-36.5 N RED CELL DISTRIBUTION WIDTH (test code = RDW) 13.9 % 12.9-16.9 N PLATELET COUNT (test code = PLT) 149 x10 3/uL 150-440 L MEAN PLATELET VOLUME (test c ode = MPV) 9.4 fL 8.9-12.4 N NEUTROPHIL % (test code = NT%) 68.7 % 42.2-75.2 N LYMPHOCYTE % (test code = LY%) 18.0 % 20.5-51.1 L MONOCYTE % (test code = MO%) 10.9 % 1.7-9.3 H EOSINOPHIL % (test code = EO%) 1.4 % 0.0-7.0 N BASOPHIL % (test code = BA%) 0.5 % 0-2.5 N NEUTROPHIL # (test code = NT#) 5.02 x10 3/uL 1.80-7.70 N LYMPHOCYTE # (test code = LY#) 1.32 x10 3/uL 1.00-4.80 N MONOCYTE # (test code = MO#) 0.80 x10 3/uL 0.00-0.80 N EOSINOPHIL # (test code = EO#) 0.10 x10 3/uL 0.00-0.45 N BASOPHIL # (test code = BA#) 0.04 x10 3/uL 0.0-0.20 N - DUP EXTRACRANIAL [id number] 22:45:00 [facility] 1960 Sex: MPatient Name: KOTA MONTES Unit No: [id number] EXAMS: CPT CODE: [id number] DUP EXTRACRANIAL SUSAN [id number] EXAMINATION: - DUP EXTRACRANIAL SUSAN COMPARISON: None HISTORY: Preop LOCATION CODE: C3 TECHNIQUE: Grayscale, color Doppler and spectral waveform analysis of the carotid and vertebral arterial systems was performed. FINDINGS: RIGHT CAROTID SYSTEM: Small amount of plaqueis present in the right carotid bulb, with minimal extension into the proximal right internal and external carotid arteries without evidence of aneurysm or stenosis. No other significant plaquing is seen in the right carotid system. Peak slight velocity in the right internal carotid artery is 98 cm/s RIGHT ICA:CCA ratio: 2.0 LEFT CAROTID SYSTEM: Plaquing is also noted in the left carotid bulb, propagating into the origins of the internal and external carotid arteries. No areas of focal aneurysm or stenosis are identified in the left carotid system. Peak systolic velocity in the left internalcarotid artery is 93 cm/s LEFT ICA:CCA ratio: 1.3 VERTEBRAL ARTERIES: Antegrade flow is seen in both vertebral arteries ADJACENT SOFT TISSUES: Unremarkable IMPRESSION: Sonographic findings suggestive of less than 50% stenosis in the carotid systems bilaterally using NASCET like criteria For any reported stenosis, validated velocity measurements with angiographic measurements, velocity criteria are extrapolated from diameter data as defined by the Society of radiologists in Ultrasound Consensus Conference Radiology 2003; 229; 340-346. at 2245 Reported and signed by: LAINE HAYNES M.D. Name: MONTES,[facility] Phys: Rogerio Mary MD [address] : 1960 Age: 62 Sex: M [place] [address] Loc: P.0414 A Exam Date: 06/03/2023 Status: ADM IN PH: FAX: PAGE 1 Signed Report (CONTINUED) Patient Name: KOTA MONTESUJILLO Unit No: [id number] EXAMS: CPT CODE: [id number] DUP EXTRACRANIAL SUSAN [id number] (Continued) CC: Kurtis Lynch MD; Rogerio Pike MD; Nnamdi Taveras Technologist: HEMANT HEATH RDMS, AB Probe: Trscr Dt/Tm: 06/03/2023 (2244) by:[email or web address] Printed Date/Time: 06/03/2023 (2247) Name: MONTES,[facility] Phys: Rogerio Mary MD [address] DOB: 1960 Age: 62 Sex: M [place] [address] Loc: P.0414 A Exam Date: 06/03/2023 Status: ADM IN PH: FAX: PAGE 2 Signed ReportBLOOD GAS W/ELECTROLYTES 2023-06-01 12:06:00* Test Item Value Reference Range Interpretation Comme [facility] ARTERIAL BLOOD GAS PH (test code = PHA) 7.37 7.35-7.45 N ARTERIAL BLOOD GAS PCO2 (test code = PCO2A) 31.9 mmHg 35.0-45.0 L ARTERIAL BLOOD GAS PO2 (test code = PO2A) 87.5 mmHg 80.0-95.0 N BICARBONATE TOTAL HCO3 (test code = HCO3) 17.8 mmol/L 22.0-24.0 L BASE EXCESS (test code = UZIEL) -6.8 mmol/L See_Comment L [Automated message] The system which generated this result transmitted reference range: (+/-)2.0. The reference range was not used to interpret this result as normal/abnormal. ABG O2 SATURATION (test code = SATA) 96.8 % 95.0-100.0 N ARTERIAL FIO2 (test code = FIO2A) 40.0 % ABG VENT MODE (test code = MODEA) NASAL CANNULA ALLENS TEST (test code = ALLENS) NOT APPLICABLE SODIUM (POC) (test code = NA/ABG) 135 mmol/L 135-147 N POTASSIUM (POC) (test code = K/ABG) 4.19 mmol/L 3.6-5.2 N CHLORIDE (ARTERIAL) (test code = CL/ABG) 103 mmol/L 98-108 N GLUCOSE (test code = GLU/ABG) 79 mg/dL 70-104 N IONIZED CALCIUM (test code = CAIABG) 1.11 mmol/L 1.12-1.32 L POC LACTIC ACID (test code = POCLAC) 4.55 mmol/L 0.5-2.2 H TOTAL HGB (test code = THB) 8.5 g/dL 13.0-17.0 L OXYHEMOGLOBIN (test code = OOHGBT) 96.2 % 92.0-98.0 N CARBOXYHEMOGLOBIN (test code = HOHGBT) 0.6 % 0-5.0 N METHEMOGLOBIN (test code = METHGB) <0.8 % 0-1.5 N HHb (test code = HHB) 3.2 % TCO2 ARTERIAL (test code = TCO2A) 18.8 MMOL/L 24-30 L COMPREHENSIVE METABOLIC [id number] 05:32:00* Test Item Value Reference Range Interpretation Comme nts SODIUM (test code = NA) 132 mmol/L 136-145 L POTASSIUM (test code = K) 5.2 mmol/L 3.5-5.1 H CHLORIDE (test code = CL) 104 mmol/l 98-107 N CARBON DIOXIDE (test code = CO2) 25 mmol/L 20-31 N GLUCOSE (test code = GLU) 99 mg/dL 74-106 N BLOOD UREA NITROGEN (test code = BUN) 11 mg/dL 9-23 N GLOMERULAR FILTRATION RATE (test code = GFR) >=60 max estimate mL/min >60 The Glomerular Filtration Rate is a calculated parameterbased on serum Creatinine, patient age and sex. GFR valuesless than 60 mL/min/1.73 square meters are indicative ofChronic Kidney Disease. Values less than 15 mL/min/1.73square meters indicate Kidney failure. The calculation forGFR is based on the CKD-EPI (2020) calculation. This formulais race indifferent and is the recommended formula for GFRby the National Kidney Foundation for Adults.The GFR will not calculate if the sex is unknown or if thepatient's age is <18 years. CREATININE (test code = CREAT) 1.00 mg/dL 0.70-1.30 N TOTAL PROTEIN (test code = PROT) 6.6 g/dL 5.7-8.2 N ALBUMIN (test code = ALB) 4.3 g/dL 3.2-4.8 N CALCIUM (test code = CA) 8.7 mg/dL 8.7-10.4 N BILIRUBIN TOTAL (test code = BILT) 0.5 mg/dL 0.3-1.2 N SGOT/AST (test code = AST) 35 U/L <34 H SGPT/ALT (test code = ALT) 22 U/L 10-49 N ALKALINE PHOSPHATASE (test code = ALKP) 80.0 U/L 46-116 N THROMBOPLASTIN TIME [id number] 16:28:00* Test Item Value Reference Range Interpretation Comme nts THROMBOPLASTIN TIME PARTIAL (test code = PTT) 29.0 secs 23.8-34.8 INTERPRETATIVE D EDGARD: Therapeutic range: Unfractionated Heparin: 60-90 seconds Argatroban: 60-90 seconds THROMBOPLASTIN TIME [id number] 05:46:00* Test Item Value Reference Range Interpretation Comme nts THROMBOPLASTIN TIME PARTIAL (test code = PTT) 135.0 secs 23.8-34.8 HH Critical Value reported Griseldairst Name:ABIGAIL Last Name:PAMELLA READ BACK AND VERIFIEDby [id number], on 05/30/23, @ 0541.INTERPRETATIVE DATA: Therapeutic range: Unfractionated Heparin: 60-90 seconds Argatroban: 60-90 seconds BASIC METABOLIC [id number] 05:29:00* Test Item Value Reference Range Interpretation Comme nts SODIUM (test code = NA) 134 mmol/L 136-145 L POTASSIUM (test code = K) 4.2 mmol/L 3.5-5.1 N CHLORIDE (test code = CL) 102 mmol/l 98-107 N CARBON DIOXIDE (test code = CO2) 28 mmol/L 20-31 N GLUCOSE (test code = GLU) 101 mg/dL 74-106 N BLOOD UREA NITROGEN (test code = BUN) 14 mg/dL 9-23 N GLOMERULAR FILTRATION RATE (test code = GFR) >=60 max estimate mL/min >60 The Glomerular Filtration Rate is a calculated parameterbased on serum Creatinine, patient age and sex. GFR valuesless than 60 mL/min/1.73 square meters are indicative ofChronic Kidney Disease. Values less than 15 mL/min/1.73square meters indicate Kidney failure. The calculation forGFR is based on the CKD-EPI (2020) calculation. This formulais race indifferent and is the recommended formula for GFRby the National Kidney Foundation for Adults.The GFR will not calculate if the sex is unknown or if thepatient's age is <18 years. CREATININE (test code = CREAT) 1.10 mg/dL 0.70-1.30 N CALCIUM (test code = CA) 9.1 mg/dL 8.7-10.4 N CBC W/AUTO [id number] 05:23:00* Test Item Value Reference Range Interpretation Comme nts WHITE BLOOD CELL (test code = WBC) 6.4 x10 3/uL 4.8-10.8 N RED BLOOD CELL (test code = RBC) 4.70 x10 6/uL 4.70-6.10 N HEMOGLOBIN (test code = HGB) 15.5 g/dL 14.0-18.0 N HEMATOCRIT (test code = HCT) 45.8 % 42.0-52.0 N MEAN CELL VOLUME (test code = MCV) 97.4 fL 80.0-94.0 H MEAN CELL HGB (test code = MCH) 33.0 pg 27-31 H MEAN CELL HGB CONCENTRATION (test code = MCHC) 33.8 G/DL 33-36.5 N RED CELL DISTRIBUTION WIDTH (test code = RDW) 13.9 % 12.9-16.9 N PLATELET COUNT (test code = PLT) 146 x10 3/uL 150-440 L MEAN PLATELET VOLUME (test c ode = MPV) 9.4 fL 8.9-12.4 N NEUTROPHIL % (test code = NT%) 65.9 % 42.2-75.2 N LYMPHOCYTE % (test code = LY%) 23.8 % 20.5-51.1 N MONOCYTE % (test code = MO%) 7.4 % 1.7-9.3 N EOSINOPHIL % (test code = EO%) 1.9 % 0.0-7.0 N BASOPHIL % (test code = BA%) 0.5 % 0-2.5 N NEUTROPHIL # (test code = NT#) 4.19 x10 3/uL 1.80-7.70 N LYMPHOCYTE # (test code = LY#) 1.51 x10 3/uL 1.00-4.80 N MONOCYTE # (test code = MO#) 0.47 x10 3/uL 0.00-0.80 N EOSINOPHIL # (test code = EO#) 0.12 x10 3/uL 0.00-0.45 N BASOPHIL # (test code = BA#) 0.03 x10 3/uL 0.0-0.20 N THROMBOPLASTIN TIME [id number] 22:56:00* Test Item Value Reference Range Interpretation Comme nts THROMBOPLASTIN TIME PARTIAL (test code = PTT) 72.2 secs 23.8-34.8 H INTERPRETATIVE D EDGARD: Therapeutic range: Unfractionated Heparin: 60-90 seconds Argatroban: 60-90 seconds [id number] 15:41:00* Test Item Value Reference Range Interpretation Comme nts CALCIUM (test code = CA) 9.2 mg/dL 8.7-10.4 N THROMBOPLASTIN TIME [id number] 12:15:00* Test Item Value Reference Range Interpretation Comme nts THROMBOPLASTIN TIME PARTIAL (test code = PTT) 36.0 secs 23.8-34.8 H INTERPRETATIVE D EDGARD: Therapeutic range: Unfractionated Heparin: 60-90 seconds Argatroban: 60-90 seconds Spec Comments: STAT if not done within 24HR prior to Hep initiat.BASIC METABOLIC [id number] 11:55:00* Test Item Value Reference Range Interpretation Comme nts SODIUM (test code = NA) 131 mmol/L 136-145 L POTASSIUM (test code = K) 4.1 mmol/L 3.5-5.1 N CHLORIDE (test code = CL) 97 mmol/l 98-107 L CARBON DIOXIDE (test code = CO2) 28 mmol/L 20-31 N GLUCOSE (test code = GLU) 92 mg/dL 74-106 N BLOOD UREA NITROGEN (test code = BUN) 16 mg/dL 9-23 N GLOMERULAR FILTRATION RATE (test code = GFR) >=60 max estimate mL/min >60 The Glomerular Filtration Rate is a calculated parameterbased on serum Creatinine, patient age and sex. GFR valuesless than 60 mL/min/1.73 square meters are indicative ofChronic Kidney Disease. Values less than 15 mL/min/1.73square meters indicate Kidney failure. The calculation forGFR is based on the CKD-EPI (2020) calculation. This formulais race indifferent and is the recommended formula for GFRby the National Kidney Foundation for Adults.The GFR will not calculate if the sex is unknown or if thepatient's age is <18 years. CREATININE (test code = CREAT) 1.00 mg/dL 0.70-1.30 N CALCIUM (test code = CA) Test not performed mg/dL 8.7-10.4 [id number] 11:55:00* Test Item Value Reference Range Interpretation Comme nts PHOSPHOROUS (test code = PHOS) 3.0 mg/dL 2.4-5.1 N [id number] 11:55:00* Test Item Value Reference Range Interpretation Comme nts MAGNESIUM (test code = MAG) 2.1 mg/dL 1.6-2.6 N PROTHROMBIN [id number] 05:26:00* Test Item Value Reference Range Interpretation Comme nts PROTHROMBIN TIME PATIENT (test code = PTP) 10.8 SECONDS 10.3-12.9 N INTERNATIONAL NORMAL RATIO (test code = INR) 0.96 0.9-1.11 N INR goals are individualized based on patient specificfactors. The following are only general guidelines: Indications: INR Goal:1. Treatment of venous thromboembolism and 2.0 - 3.0 systemic anticoagulation in a variety of conditions, including atrial fibrillation and mechanical heart valves 2. Mechanical mitral and tricuspid valves, 2.5 - 3.5 systemic anticoagulation for high-risk conditions Spec Comments: STAT if not done within 24HR prior to Hep initiat.THROMBOPLASTIN TIME [id number] 05:26:00* Test Item Value Reference Range Interpretation Comme nts THROMBOPLASTIN TIME PARTIAL (test code = PTT) 68.4 secs 23.8-34.8 H INTERPRETATIVE D EDGARD: Therapeutic range: Unfractionated Heparin: 60-90 seconds Argatroban: 60-90 seconds Spec Comments: STAT if not done within 24HR prior to Hep initiat.BASIC METABOLIC [id number] 04:51:00* Test Item Value Reference Range Interpretation Comme nts SODIUM (test code = NA) 131 mmol/L 136-145 L POTASSIUM (test code = K) 4.2 mmol/L 3.5-5.1 N CHLORIDE (test code = CL) 95 mmol/l 98-107 L CARBON DIOXIDE (test code = CO2) 29 mmol/L 20-31 N GLUCOSE (test code = GLU) 84 mg/dL 74-106 N BLOOD UREA NITROGEN (test code = BUN) 16 mg/dL 9-23 N GLOMERULAR FILTRATION RATE (test code = GFR) >=60 max estimate mL/min >60 The Glomerular Filtration Rate is a calculated parameterbased on serum Creatinine, patient age and sex. GFR valuesless than 60 mL/min/1.73 square meters are indicative ofChronic Kidney Disease. Values less than 15 mL/min/1.73square meters indicate Kidney failure. The calculation forGFR is based on the CKD-EPI (2020) calculation. This formulais race indifferent and is the recommended formula for GFRby the National Kidney Foundation for Adults.The GFR will not calculate if the sex is unknown or if thepatient's age is <18 years. CREATININE (test code = CREAT) 1.10 mg/dL 0.70-1.30 N CALCIUM (test code = CA) 9.0 mg/dL 8.7-10.4 N [id number] 04:51:00* Test Item Value Reference Range Interpretation Comme nts PHOSPHOROUS (test code = PHOS) 3.5 mg/dL 2.4-5.1 N [id number] 04:51:00* Test Item Value Reference Range Interpretation Comme nts MAGNESIUM (test code = MAG) 1.7 mg/dL 1.6-2.6 N CBC W/AUTO [id number] 04:39:00* Test Item Value Reference Range Interpretation Comme nts WHITE BLOOD CELL (test code = WBC) 6.7 x10 3/uL 4.8-10.8 N RED BLOOD CELL (test code = RBC) 4.69 x10 6/uL 4.70-6.10 L HEMOGLOBIN (test code = HGB) 15.8 g/dL 14.0-18.0 N HEMATOCRIT (test code = HCT) 43.9 % 42.0-52.0 N MEAN CELL VOLUME (test code = MCV) 93.6 fL 80.0-94.0 N MEAN CELL HGB (test code = MCH) 33.7 pg 27-31 H MEAN CELL HGB CONCENTRATION (test code = MCHC) 36.0 G/DL 33-36.5 N RED CELL DISTRIBUTION WIDTH (test code = RDW) 13.9 % 12.9-16.9 N PLATELET COUNT (test code = PLT) 155 x10 3/uL 150-440 N MEAN PLATELET VOLUME (test c ode = MPV) 9.2 fL 8.9-12.4 N NEUTROPHIL % (test code = NT%) 58.3 % 42.2-75.2 N LYMPHOCYTE % (test code = LY%) 32.7 % 20.5-51.1 N MONOCYTE % (test code = MO%) 6.4 % 1.7-9.3 N EOSINOPHIL % (test code = EO%) 1.3 % 0.0-7.0 N BASOPHIL % (test code = BA%) 0.6 % 0-2.5 N NEUTROPHIL # (test code = NT#) 3.89 x10 3/uL 1.80-7.70 N LYMPHOCYTE # (test code = LY#) 2.19 x10 3/uL 1.00-4.80 N MONOCYTE # (test code = MO#) 0.43 x10 3/uL 0.00-0.80 N EOSINOPHIL # (test code = EO#) 0.09 x10 3/uL 0.00-0.45 N BASOPHIL # (test code = BA#) 0.04 x10 3/uL 0.0-0.20 N Spec Comments: STAT if not done within 24HR prior to Hep initiat.- XR ABDOMEN 1V 2023-05-28 19:00:00 [facility] 1960 Sex: MPatient Name: KOTA MONTES Unit No: [id number] EXAMS: CPT CODE: [id number] XR ABDOMEN 1V 54300 EXAM: XR ABDOMEN 1 VIEW INDICATION: abd pain LOCATION: H50 COMPARISON: Abdominal radiograph dated 06/01/2022 TECHNIQUE: AP view of the abdomen. FINDINGS: Lines, tubes and hardware: Fixation hardware at the right acetabulum is unchanged from prior. Lower thorax: Unremarkable where visualized. Bowel: There is decreased gaseous distention of colonic loops. Calcifications: No abnormal calcifications found. Bones: No acute osseous abnormalities. IMPRESSION: Decreased gaseous distention of colonic loops. at 1900 Reported and signed by: CRUZ VÁZQUEZ M.D. CC: Kurtis Lynch MD; Nnamdi Rachel MD Technologist: Joan Bustillo Time: DAP (Gy m2): Air Kerma (mGy): Trscr Dt/Tm: 05/28/2023 (1899) by:[email or web address] Printed Date/Time: 05/28/2023 (1902) Name: KOTA MONTES [facility] Phys: Nnamdi Duarte MD [address] : 1960 Age: 62 Sex: [place] [address] Loc: P.0605 1 Exam Date: 05/28/2023 Status: ADM IN PH: FAX: PAGE 1 Signed [id number] 18:03:00* Test Item Value Reference Range Interpretation Comme nts TROPONIN-I (test code = TROPI) 23.1 pg/mL 38.73-80.22 L BASIC METABOLIC [id number] 15:26:00* Test Item Value Reference Range Interpretation Comme nts SODIUM (test code = NA) 128 mmol/L 136-145 L POTASSIUM (test code = K) 4.9 mmol/L 3.5-5.1 N CHLORIDE (test code = CL) 94 mmol/l 98-107 L CARBON DIOXIDE (test code = CO2) 26 mmol/L 20-31 N GLUCOSE (test code = GLU) 75 mg/dL 74-106 N BLOOD UREA NITROGEN (test code = BUN) 18 mg/dL 9-23 N GLOMERULAR FILTRATION RATE (test code = GFR) >=60 max estimate mL/min >60 The Glomerular Filtration Rate is a calculated parameterbased on serum Creatinine, patient age and sex. GFR valuesless than 60 mL/min/1.73 square meters are indicative ofChronic Kidney Disease. Values less than 15 mL/min/1.73square meters indicate Kidney failure. The calculation forGFR is based on the CKD-EPI (2020) calculation. This formulais race indifferent and is the recommended formula for GFRby the National Kidney Foundation for Adults.The GFR will not calculate if the sex is unknown or if thepatient's age is <18 years. CREATININE (test code = CREAT) 1.10 mg/dL 0.70-1.30 N CALCIUM (test code = CA) 9.5 mg/dL 8.7-10.4 N LIPID PROFILE (CORONARY RISK)2023-05-28 15:26:00* Test Item Value Reference Range Interpretation Comme nts TRIGLYCERIDES (test code = TRIG) 182 mg/dL <150 H CHOLESTEROL (test code = CHOL) 158 mg/dL <200 N HDL CHOLESTEROL (test code = HDL) 100 mg/dL >60 N Please note New Reference Interval Nov 2022 REFERENCE INTERVALLow (undesirable, high risk): < 40 mg/dLHigh (desirable, low risk): >/= 60 mg/dLPreviously reported result: 100 mg/dLEdited by: [id number] on 05/28/23:1526 LIPOPROTEIN LDL (test code = LDLC) 40 mg/dL <100 N INTERPRETATIVE DATA:LDL Cholesterol: Reference RangesOptimal: <100 mg/dLNear Optimal: 100 -129 mg/dLBorderline High: 130 - 159 mg/dLHigh: 160 - 189 mg/dLVery High: = or > 190 mg/dL CORONARY RISK FACTOR (test code = RISK) 1.58 CHOL/HDL RISK MALE: 1/2 AVG 3.43 FEMALE: 1/2 AVG 3.27 AVG 4.97 AVG 4.44 2X AVG 9.55 2X AVG 7.05 3X AVG 23.39 3X AVG 11.04~~~~~~~~~~~~~~~~~ ~~~~~~~~~~~~~~~~~~~~~~ ~~~~~~~~~~~~~~~~~~~~~[facility] Cholesterol Education (NCEP) Guidelines:~~~~~~~~~~~ ~~~~~~~~~~~~~~~~~~~~~~ ~~~~~~~~~~~~~~~~~~~~~~ ~~~~~ HDL Cholesterol<40mg/dL: HDL Cholesterol (Major risk factor for CHD)>60mg/dL: HDL Cholesterol (Negative risk factor for CHD)40-59mg/dL: Borderline Risk LDL Cholesterol<100mg/dL : Desirable LDL-C bxrrkneevrnab890-472rs /dL: Borderline High Risk LDL-C uhlvgwzywsvsi075-315yx /dL: High risk LDL-C concentration HDL-LDL Cholesterol is affected by a number of factors suchas smoking, age and sex.~~~~~~~~~~~~~~~~~~ ~~~~~~~~~~~~~~~~~~~~~~ ~~~~~~~~~~~~~~~~~~~~ LIVER FUNCTION [id number] 15:26:00* Test Item Value Reference Range Interpretation Comme nts TOTAL PROTEIN (test code = PROT) 6.9 g/dL 5.7-8.2 N ALBUMIN (test code = ALB) 4.8 g/dL 3.2-4.8 N BILIRUBIN TOTAL (test code = BILT) 0.8 mg/dL 0.3-1.2 N BILIRUBIN DIRECT (test code = BILD) 0.2 mg/dL <0.3 N SGOT/AST (test code = AST) 36 U/L <34 H SGPT/ALT (test code = ALT) 33 U/L 10-49 N ALKALINE PHOSPHATASE (test c ode = ALKP) 90.0 U/L 46-116 N [id number] 15:26:00* Test Item Value Reference Range Interpretation Comme nts MAGNESIUM (test code = MAG) 1.7 mg/dL 1.6-2.6 N PROTHROMBIN [id number] 14:55:00* Test Item Value Reference Range Interpretation Comme nts PROTHROMBIN TIME PATIENT (test code = PTP) 10.2 SECONDS 10.3-12.9 L INTERNATIONAL NORMAL RATIO (test code = INR) 0.91 0.9-1.11 N INR goals are individualized based on patient specificfactors. The following are only general guidelines: Indications: INR Goal:1. Treatment of venous thromboembolism and 2.0 - 3.0 systemic anticoagulation in a variety of conditions, including atrial fibrillation and mechanical heart valves 2. Mechanical mitral and tricuspid valves, 2.5 - 3.5 systemic anticoagulation for high-risk conditions THROMBOPLASTIN TIME [id number] 14:55:00* Test Item Value Reference Range Interpretation Comme nts THROMBOPLASTIN TIME PARTIAL (test code = PTT) 32.8 secs 23.8-34.8 N INTERPRETATIVE D EDGARD: Therapeutic range: Unfractionated Heparin: 60-90 seconds Argatroban: 60-90 seconds COVID 19 INHOUSE [id number] 14:49:00* Test Item Value Reference Range Interpretation Comme nts COVID 19 INHOUSE AG (test code = [id number]) NEGATIVE NEGATIVE Negative results , from patients with symptom onset beyondfive days, should be treated as presumptive and confirmationwith a molecular assay, if necessary for patientmanagement, may be performed. Negative results do not ruleout COVID-19 and should not be used as the sole basis fortreatment or patient management decisions, includinginfection control decisions. Negative results should beconsidered in the context of a patient's recent exposures,history and the presence of clinical signs and symptomsconsistent with COVID-19. [id number] 14:48:00* Test Item Value Reference Range Interpretation Comme [facility] TROPONIN-I (test code = TROPI) 22.9 pg/mL 38.73-80.22 L B-TYPE NATRIURETIC [id number] 14:48:00* Test Item Value Reference Range Interpretation Comme [facility] B-TYPE NATRIURETIC PEPTIDE ( test code = BNP) 78 pg/mL <100 N - XR CHEST 1 [id number] 14:40:00 [facility] 1960 Sex: MPatient Name: KOTA MONTES Unit No: [id number] EXAMS: CPT CODE: [id number] XR CHEST 1 V 86930 Chest one view AP 05/28/2023 2:40 PM CLINICAL HISTORY: Chest pain COMPARISON:05/16/2023 LOCATION: W1 FINDINGS: The lungs are clear. Cardiomediastinal contours are within normallimits. The central pulmonary vasculature is not engorged. IMPRESSION: Unremarkable frontal chest radiograph. at 1440 Reported and signed by: NEEMA SIMMONS M.D. CC: Shivam Singh MD; Kurtis Lynch MD Technologist: Mark Anthony Bustillo Time: DAP (Gy m2): Air Kerma (mGy): Trscr Dt/Tm: 05/28/2023 (1440) by:[email or web address] Printed Date/Time: 05/28/2023 (144) Name: KOTA MONTES [facility] Phys: Shivam Castañeda MD [address] : 1960 Age: 62 Sex: [place] [address] Loc: P.ERS Exam Date: 05/28/2023 Status: REG ER PH: FAX: PAGE 1 Signed ReportCBC W/O [id number] 14:34:00* Test Item Value Reference Range Interpretation Comme nts WHITE BLOOD CELL (test code = WBC) 8.0 x10 3/uL 4.8-10.8 N RED BLOOD CELL (test code = RBC) 4.71 x10 6/uL 4.70-6.10 N HEMOGLOBIN (test code = HGB) 15.5 g/dL 14.0-18.0 N HEMATOCRIT (test code = HCT) 44.6 % 42.0-52.0 N MEAN CELL VOLUME (test code = MCV) 94.7 fL 80.0-94.0 H MEAN CELL HGB (test code = MCH) 32.9 pg 27-31 H MEAN CELL HGB CONCENTRATION (test code = MCHC) 34.8 G/DL 33-36.5 N RED CELL DISTRIBUTION WIDTH (test code = RDW) 13.5 % 12.9-16.9 N PLATELET COUNT (test code = PLT) 176 x10 3/uL 150-440 N - XR CHEST 1 [id number] 15:45:00 [facility] 1960 Sex: MPatient Name: KOTA MONTES Unit No: [id number] EXAMS: CPT CODE: [id number] XR CHEST 1 V 33711 Clinical Information: Chest pain Dictation Location: A 1 COMPARISON: 04/05/2023 FINDINGS: Portable frontal view of the chest taken at 1520 hours shows monitoring electrodes overlying the chest wall. The heart size and pulmonary vessels are unremarkable. The lungs appear clear of active infiltrate or effusion. The bones appear intact as demonstrated. IMPRESSION: No active disease of the heart or lungs identified. at 1545 Reported and signed by: Beata Eden MD CC: Liset Whiting MD Technologist: Bernadette Lopes [facility] Dt/Tm: 05/16/2023 (4658) by:CarlAGV Electronic Signature Date/Time: 05/16/2023 (1545)Orig Print D/T: S: 05/16/2023 (1547) Name: KOTA MONTES [facility] Phys: Branden Martinez MD [address] : 1960 Age: 62 Sex: [place] [address] Loc: OHKIMBERLY Exam Date: 05/16/2023 Status: REG ER PH: FAX: PAGE 1 Signed ReportCOMPREHENSIVE METABOLIC PANEL 2023-05-16 15:42:00* Test Item Value Reference Range Interpretation Comme nts SODIUM (test code = NA) 129 mmol/L 128-145 N POTASSIUM (test code = K) 4.8 mmol/L 3.6-5.1 N CHLORIDE (test code = CL) 94 mmol/L 98-108 L CARBON DIOXIDE (test code = CO2) 28 mmol/L 18-33 N ANION GAP (test code = GAP) 11.8 2.0-16.0 N GLUCOSE (test code = GLU) 86 mg/dL 65-99 N BLOOD UREA NITROGEN (test code = BUN) 20 mg/dL 7-22 N GLOMERULAR FILTRATION RATE (test code = GFR) >=60 max estimate ml/min 60-115 N The estimated glomerular filtration rate is computed usingpatient race, age (>18), sex, and serum creatinine. If anyof the needed data elements are missing the Laboratory cannot compute an estimation of the glomerular filtration rate.The Glomerular Filtration Rate is a calculated parameterbased on serum Creatinine, patient age and sex. GFR valuesless than 60 mL/min/1.73 square meters are indicative ofChronic Kidney Disease. Values less than 15 mL/min/1.73square meters indicate Kidney failure. The calculation forGFR is based on the CKD-EPI (202) calculation. This formulais race indifferent and is the recommended formula for GFRby the National Kidney Foundation for Adults.The GFR will not calculate if the sex is unknown or if thepatient's age is <18 years. CREATININE (test code = CREAT) 1.2 mg/dL 0.6-1.2 N BUN/CREATININE RATIO (test code = BUN/CREA) 16.7 12.0-20.0 N TOTAL PROTEIN (test code = PROT) 7.6 6.4-8.1 N ALBUMIN (test code = ALB) 4.3 g/dL 3.3-5.5 N CALCIUM (test code = CA) 9.2 mg/dL 8.0-10.3 N BILIRUBIN TOTAL (test code = BILT) 1.0 mg/dL 0.2-1.6 N SGOT/AST (test code = AST) 35 U/L 11-38 N SGPT/ALT (test code = ALT) 29 U/L 10-47 N ALKALINE PHOSPHATASE (test code = ALKP) 79 U/L 42-141 N CBC W/AUTO [id number] 15:34:00* Test Item Value Reference Range Interpretation Comme nts WHITE BLOOD CELL (test code = WBC) 7.7 10 3/uL 4.5-10.7 N RED BLOOD CELL (test code = RBC) 4.92 10 6/uL 4.30-5.90 N HEMOGLOBIN (test code = HGB) 17.5 g/dL 14.0-18.0 N HEMATOCRIT (test code = HCT) 45.9 % 40.0-55.0 N MEAN CELL VOLUME (test code = MCV) 93 fL 81-102 N MEAN CELL HGB (test code = MCH) 35.6 pg 26.0-34.0 H MEAN CELL HGB CONCENTRATION (test code = MCHC) 38.1 g/dL 31.0-37.0 H RED CELL DISTRIBUTION WIDTH (test code = RDW) 14.7 % 11.6-14.4 H RED CELL DISTRIBUTION WIDTH SD (test code = RDW-SD) 49.4 fL 35.1-43.9 H PLATELET COUNT (test code = PLT) 189 10 3/uL 150-400 N MEAN PLATELET VOLUME (test c ode = MPV) 9.4 fL 9.0-13.0 N NEUTROPHIL % (test code = NT%) 72.1 % 33.0-76.0 N LYMPHOCYTE % (test code = LY%) 24.7 % 14.0-56.4 N MIXED % (test code = MX%) 3.2 % 1.0-10.0 N NEUTROPHIL # (test code = NT#) 5.60 10 3/uL 1.5-7.0 N LYMPHOCYTE # (test code = LY#) 1.90 10 3/uL 1.50-4.00 N MIXED # (test code = MX#) 0.2 0.1-0.6 N B-TYPE NATRIURETIC [id number] 20:16:00* Test Item Value Reference Range Interpretation Comme nts B-TYPE NATRIURETIC PEPTIDE ( test code = BNP) 51 pg/mL 0-100 N LIPID PROFILE (CORONARY RISK)2023-04-05 19:56:00* Test Item Value Reference Range Interpretation Comme nts TRIGLYCERIDES (test code = TRIG) 205 mg/dL 0-149 H CHOLESTEROL (test code = CHOL) 117 mg/dL 0-200 N CHOLESTEROL/HDL RATIO (test code = CHOLHDL) 2 1-6 N HDL CHOLESTEROL (test code = HDL) 58 mg/dL 40-60 N LIPOPROTEIN LDL (test code = LDLC) 43 mg/dL 0-100 N TROP-I HIGH [id number] 19:56:00* Test Item Value Reference Range Interpretation Comme nts TROP-I HIGH SENSITIVITY (test code = TROPIHS) 23 pg/mL 0-78 N CAUTION: U nits of the current test methodology (pg/mL) differ from the prior test methodology (ng/mL) by a factor of 1000. POSITIVE TROPONIN HS IS IDENTIFIED THE FOLLOWING MALE > OR = 78 ng/mL FEMALE > OR = 53 ng/mL ALL CRITICAL TROPI HS HAVE BEEN IDENTIFIED MALE OR FEMALE > OR = 120 ng/mL [id number] 19:56:00* Test Item Value Reference Range Interpretation Comme nts ALCOHOL (test code = ALC) < 3 mg/dL 0-3 N COVID 19 INHOUSE [id number] 15:48:00* Test Item Value Reference Range Interpretation Comme nts COVID 19 INHOUSE AG (test code = [id number]) NEGATIVE Negative Negative results do not preclude 2019-nCoV infection andshould not be used as the sole basis for treatment or otherpatient management decisions. Negative results must becombined with clinical observations, patient history, andepidemiological information. BASIC METABOLIC [id number] 15:23:00* Test Item Value Reference Range Interpretation Comme nts SODIUM (test code = NA) 138 mmol/L 135-145 N POTASSIUM (test code = K) 3.9 mmol/L 3.5-5.1 N CHLORIDE (test code = CL) 103 mmol/L 98-107 N CARBON DIOXIDE (test code = CO2) 31 mmol/L 21-32 N ANION GAP (test code = GAP) 7.9 2.0-16.0 N GLUCOSE (test code = GLU) 110 mg/dL 65-99 H BLOOD UREA NITROGEN (test code = BUN) 16 mg/dL 4-23 N GLOMERULAR FILTRATION RATE (test code = GFR) >=60 max estimate ml/min The Glomerular Filtration Rate is a calculated parameterbased on serum Creatinine, patient age and sex. GFR valuesless than 60 mL/min/1.73 square meters are indicative ofChronic Kidney Disease. Values less than 15 mL/min/1.73square meters indicate Kidney failure. The calculation forGFR is based on the CKD-EPI (2020) calculation. This formulais race indifferent and is the recommended formula for GFRby the National Kidney Foundation for Adults.The GFR will not calculate if the sex is unknown or if thepatient's age is <18 years. CREATININE (test code = CREAT) 1.2 mg/dL 0.6-1.5 N BUN/CREATININE RATIO (test code = BUN/CREA) 13.3 12.0-20.0 N CALCIUM (test code = CA) 9.6 mg/dL 8.5-10.1 N TROP-I HIGH [id number] 15:23:00* Test Item Value Reference Range Interpretation Comme nts TROP-I HIGH SENSITIVITY (test code = TROPIHS) 19 pg/mL 0-78 N CAUTION: U nits of the current test methodology (pg/mL) differ from the prior test methodology (ng/mL) by a factor of 1000. POSITIVE TROPONIN HS IS IDENTIFIED THE FOLLOWING MALE > OR = 78 ng/mL FEMALE > OR = 53 ng/mL ALL CRITICAL TROPI HS HAVE BEEN IDENTIFIED MALE OR FEMALE > OR = 120 ng/mL - XR CHEST 1 [id number] 14:53:00 [facility] 1960 Sex: MPatient Name: KOTA MONTES Unit No: [id number] EXAMS: CPT CODE: [id number] XR CHEST 1 V 01819 EXAM: - XR CHEST 1 V DATE: 04/05/2023 2:07 PM. INDICATION: Chest Pain . COMPARISON: Chest x-ray 07/13/2022. TECHNIQUE: Frontal chest. Location: W1 FINDINGS: Lines, Tubes and Hardware: None. Lungs and Pleura: No focal consolidation, pleural effusion, or pneumothorax is identified.Heart and Mediastinum: The cardiac silhouette is accentuated by AP portable technique. Pulmonary vascular congestion is present. Bones: No acute skeletal abnormality is identified. Upper abdomen: Within normal limits IMPRESSION: Central pulmonary vascular congestion. at 1453 Reported and signed by: Danny Myers MD CC: Rupali Westbrook MD Technologist: Keyur Bustillo Time: DAP (Gy m2): Air Kerma (mGy): Trscr Dt/Tm: 04/05/2023 (1453) by:[email or web address] Electronic Signature Date/Time: 04/05/2023 (145)Orig Print D/T: S: 04/05/2023 (8156) Name: TIM[facility]UN [facility] [place]: [place] [address] : 1960 Age: 62 Sex: [place] [address] Loc: OH.ERS Exam Date: 04/05/2023 Status: REG ER PH: FAX: PAGE 1 Signed ReportCBC W/AUTO [id number] 14:36:00* Test Item Value Reference Range Interpretation Comme nts WHITE BLOOD CELL (test code = WBC) 9.9 10 3/uL 4.5-11.0 N RED BLOOD CELL (test code = RBC) 4.93 10 6/uL 4.30-5.90 N HEMOGLOBIN (test code = HGB) 16.3 g/dL 14.0-18.0 N HEMATOCRIT (test code = HCT) 47.2 % 40.0-55.0 N MEAN CELL VOLUME (test code = MCV) 96 fL 81-102 N MEAN CELL HGB (test code = MCH) 33.1 pg 26.0-34.0 N MEAN CELL HGB CONCENTRATION (test code = MCHC) 34.5 g/dL 31.0-37.0 N RED CELL DISTRIBUTION WIDTH (test code = RDW) 13.3 % 11.6-14.4 N PLATELET COUNT (test code = PLT) 178 10 3/uL 150-400 N MEAN PLATELET VOLUME (test code = MPV) 9.9 fL 9.0-12.6 N NEUTROPHIL % (test code = NT%) 74.7 % 33.0-76.0 N IMMATURE GRANULOCYTE % (test code = IG%) 0.5 % 0.0-1.0 N LYMPHOCYTE % (test code = LY%) 17.2 % 14.0-56.4 N MONOCYTE % (test code = MO%) 6.4 % 0.0-12.9 N EOSINOPHIL % (test code = EO%) 0.7 % 0.0-7.0 N BASOPHIL % (test code = BA%) 0.5 % 0-2.0 N NUCLEATED RBC % (test code = NRBC%) 0.0 % 0-0.2 N NEUTROPHIL # (test code = NT#) 7.36 10 3/uL 1.5-7.0 H IMMATURE GRANULOCYTE # (test code = IG#) 0.050 x10 3/uL 0.000-0.100 N LYMPHOCYTE # (test code = LY#) 1.69 10 3/uL 1.50-4.00 N MONOCYTE # (test code = MO#) 0.63 10 3/uL 0.20-0.80 N EOSINOPHIL # (test code = EO#) 0.07 10 3/uL 0.0-0.5 N BASOPHIL # (test code = BA#) 0.05 10 3/uL 0.0-0.1 N NUCLEATED RBC # (test code = NRBC#) 0.000 10 3/uL 0.000-0.012 N COMPREHENSIVE METABOLIC [id number] 05:08:00* Test Item Value Reference Range Interpretation Comme nts SODIUM (test code = NA) 138 mmol/L 136-145 N POTASSIUM (test code = K) 4.1 mmol/L 3.5-5.1 N CHLORIDE (test code = CL) 106 mmol/l 98-107 N CARBON DIOXIDE (test code = CO2) 26 mmol/L 20-31 N GLUCOSE (test code = GLU) 92 mg/dL 74-106 N BLOOD UREA NITROGEN (test code = BUN) 12 mg/dL 9-23 N GLOMERULAR FILTRATION RATE (test code = GFR) >=60 max estimate mL/min >60 The Glomerular Filtration Rate is a calculated parameterbased on serum Creatinine, patient age and sex. GFR valuesless than 60 mL/min/1.73 square meters are indicative ofChronic Kidney Disease. Values less than 15 mL/min/1.73square meters indicate Kidney failure. The calculation forGFR is based on the CKD-EPI (202) calculation. This formulais race indifferent and is the recommended formula for GFRby the National Kidney Foundation for Adults.The GFR will not calculate if the sex is unknown or if thepatient's age is <18 years. CREATININE (test code = CREAT) 0.80 mg/dL 0.70-1.30 N TOTAL PROTEIN (test code = PROT) 5.8 g/dL 5.7-8.2 N ALBUMIN (test code = ALB) 4.3 g/dL 3.2-4.8 N CALCIUM (test code = CA) 8.7 mg/dL 8.7-10.4 N BILIRUBIN TOTAL (test code = BILT) 0.7 mg/dL 0.3-1.2 N SGOT/AST (test code = AST) 23 U/L <34 N SGPT/ALT (test code = ALT) 17 U/L 10-49 N ALKALINE PHOSPHATASE (test code = ALKP) 65.0 U/L 46-116 N CBC W/AUTO [id number] 04:47:00* Test Item Value Reference Range Interpretation Comme nts WHITE BLOOD CELL (test code = WBC) 7.6 x10 3/uL 4.8-10.8 N RED BLOOD CELL (test code = RBC) 4.45 x10 6/uL 4.70-6.10 L HEMOGLOBIN (test code = HGB) 14.7 g/dL 14.0-18.0 N HEMATOCRIT (test code = HCT) 42.2 % 42.0-52.0 N MEAN CELL VOLUME (test code = MCV) 94.8 fL 80.0-94.0 H MEAN CELL HGB (test code = MCH) 33.0 pg 27-31 H MEAN CELL HGB CONCENTRATION (test code = MCHC) 34.8 G/DL 33-36.5 N RED CELL DISTRIBUTION WIDTH (test code = RDW) 13.5 % 12.9-16.9 N PLATELET COUNT (test code = PLT) 147 x10 3/uL 150-440 L MEAN PLATELET VOLUME (test c ode = MPV) 9.6 fL 8.9-12.4 N NEUTROPHIL % (test code = NT%) 77.4 % 42.2-75.2 H LYMPHOCYTE % (test code = LY%) 13.7 % 20.5-51.1 L MONOCYTE % (test code = MO%) 7.0 % 1.7-9.3 N EOSINOPHIL % (test code = EO%) 1.2 % 0.0-7.0 N BASOPHIL % (test code = BA%) 0.3 % 0-2.5 N NEUTROPHIL # (test code = NT#) 5.89 x10 3/uL 1.80-7.70 N LYMPHOCYTE # (test code = LY#) 1.04 x10 3/uL 1.00-4.80 N MONOCYTE # (test code = MO#) 0.53 x10 3/uL 0.00-0.80 N EOSINOPHIL # (test code = EO#) 0.09 x10 3/uL 0.00-0.45 N BASOPHIL # (test code = BA#) 0.02 x10 3/uL 0.0-0.20 N COAGULATION TIME [id number] 14:57:00* Test Item Value Reference Range Interpretation Comme nts COAGULATION TIME ACTIVATED ( test code = ACT) 395 SECONDS 74-137 H COMPREHENSIVE METABOLIC [id number] 12:46:00* Test Item Value Reference Range Interpretation Comme nts SODIUM (test code = NA) 140 mmol/L 136-145 N POTASSIUM (test code = K) 4.7 mmol/L 3.5-5.1 N CHLORIDE (test code = CL) 107 mmol/l 98-107 N CARBON DIOXIDE (test code = CO2) 29 mmol/L 20-31 N GLUCOSE (test code = GLU) 92 mg/dL 74-106 N BLOOD UREA NITROGEN (test code = BUN) 14 mg/dL 9-23 N GLOMERULAR FILTRATION RATE (test code = GFR) >=60 max estimate mL/min >60 The Glomerular Filtration Rate is a calculated parameterbased on serum Creatinine, patient age and sex. GFR valuesless than 60 mL/min/1.73 square meters are indicative ofChronic Kidney Disease. Values less than 15 mL/min/1.73square meters indicate Kidney failure. The calculation forGFR is based on the CKD-EPI (2020) calculation. This formulais race indifferent and is the recommended formula for GFRby the National Kidney Foundation for Adults.The GFR will not calculate if the sex is unknown or if thepatient's age is <18 years. CREATININE (test code = CREAT) 1.00 mg/dL 0.70-1.30 N TOTAL PROTEIN (test code = PROT) 6.3 g/dL 5.7-8.2 N ALBUMIN (test code = ALB) 4.4 g/dL 3.2-4.8 N CALCIUM (test code = CA) 9.3 mg/dL 8.7-10.4 N BILIRUBIN TOTAL (test code = BILT) 0.5 mg/dL 0.3-1.2 N SGOT/AST (test code = AST) 19 U/L <34 N SGPT/ALT (test code = ALT) 18 U/L 10-49 N ALKALINE PHOSPHATASE (test code = ALKP) 73.0 U/L 46-116 N [id number] 12:46:00* Test Item Value Reference Range Interpretation Comme nts MAGNESIUM (test code = MAG) 1.8 mg/dL 1.6-2.6 N PROTHROMBIN [id number] 12:36:00* Test Item Value Reference Range Interpretation Comme nts PROTHROMBIN TIME PATIENT (test code = PTP) 11.0 SECONDS 10.3-12.9 N INTERNATIONAL NORMAL RATIO (test code = INR) 0.93 0.9-1.11 N INR goals are individualized based on patient specificfactors. The following are only general guidelines: Indications: INR Goal:1. Treatment of venous thromboembolism and 2.0 - 3.0 systemic anticoagulation in a variety of conditions, including atrial fibrillation and mechanical heart valves 2. Mechanical mitral and tricuspid valves, 2.5 - 3.5 systemic anticoagulation for high-risk conditions THROMBOPLASTIN TIME [id number] 12:36:00* Test Item Value Reference Range Interpretation Comme [facility] THROMBOPLASTIN TIME PARTIAL (test code = PTT) 32.8 SECONDS 23.8-34.8 N INTERPRETATIVE DATA:Therapeutic range: Unfractionated heparin:55 - 80 seconds Argatroban:1.5 to 3 times the baseline PTT CBC W/AUTO [id number] 12:24:00* Test Item Value Reference Range Interpretation Comme nts WHITE BLOOD CELL (test code = WBC) 7.5 x10 3/uL 4.8-10.8 N RED BLOOD CELL (test code = RBC) 4.64 x10 6/uL 4.70-6.10 L HEMOGLOBIN (test code = HGB) 15.1 g/dL 14.0-18.0 N HEMATOCRIT (test code = HCT) 45.5 % 42.0-52.0 N MEAN CELL VOLUME (test code = MCV) 98.1 fL 80.0-94.0 H MEAN CELL HGB (test code = MCH) 32.5 pg 27-31 H MEAN CELL HGB CONCENTRATION (test code = MCHC) 33.2 G/DL 33-36.5 N RED CELL DISTRIBUTION WIDTH (test code = RDW) 13.6 % 12.9-16.9 N PLATELET COUNT (test code = PLT) 183 x10 3/uL 150-440 N MEAN PLATELET VOLUME (test c ode = MPV) 9.4 fL 8.9-12.4 N NEUTROPHIL % (test code = NT%) 71.2 % 42.2-75.2 N LYMPHOCYTE % (test code = LY%) 18.7 % 20.5-51.1 L MONOCYTE % (test code = MO%) 8.0 % 1.7-9.3 N EOSINOPHIL % (test code = EO%) 1.1 % 0.0-7.0 N BASOPHIL % (test code = BA%) 0.5 % 0-2.5 N NEUTROPHIL # (test code = NT#) 5.34 x10 3/uL 1.80-7.70 N LYMPHOCYTE # (test code = LY#) 1.40 x10 3/uL 1.00-4.80 N MONOCYTE # (test code = MO#) 0.60 x10 3/uL 0.00-0.80 N EOSINOPHIL # (test code = EO#) 0.08 x10 3/uL 0.00-0.45 N BASOPHIL # (test code = BA#) 0.04 x10 3/uL 0.0-0.20 N - XR C-SPINE 2-3 [id number] 13:06:00 [facility] 1960 Sex: MPatient Name: KOTA MONTES Unit No: [id number] EXAMS: CPT CODE: [id number] C- SPINE 2-3 VIEWS 68550 CERVICAL SPINE, 3 VIEWS LOCATION: H30 HISTORY: Neck pain. 3 views of thecervical spine were obtained at 12:45 PM. No prior exams are available for comparison. FINDINGS: The alignment of the cervical spine is satisfactory. No acute findings are seen. Moderate diffuse degenerative changes of cervical spine include endplate/posterior element sclerosis and bridging/marginal osteophyte formation. Moderate disc space narrowing is present from C5 to C7. Upper disc space heights are preserved. Note is also made of extensive carotid artery atherosclerotic calcifications. Prevertebral soft tissues are otherwise unremarkable. Airways are patent. IMPRESSION: 1. Moderate diffuse degenerative changes of the cervical spine as described. These findings are most pronounced in the lower levels. No acute findings are seen. 2. Extensive carotid artery calcified atherosclerosis. at 1306 Reported and signed by: Telly Melendez Jr, MD CC: Chad Haile MD Technologist: Leonie Madison Trs Dt/Tm: 11/13/2022 (1306) by:Antonietta Electronic Signature Date/Time: 11/13/2022 (1306)Orig Print D/T: S: 11/13/2022 (1310) Name: KOTA MONTES [facility] Phys: Chad Clarke MMD [address] : 1960 Age: 62 Sex: [place] [address] Loc: [email or web address].[email or web address] Exam Date: 11/13/2022 Status: REG ER PH: FAX: PAGE 1 Signed ReportComprehensive metabolic 2000 panel - Serum or [id number] 00:00:00* Test Item Value Reference Range Interpretation Comme nts Glucose [Mass/volume] in Serum or Plasma (test code = 2345-7) 96 mg/dL 70-99 Urea nitrogen [Mass/volume] in Serum or Plasma (test code = 3094-0) 6 mg/dL 8-27 L Creatinine [Mass/volume] in Serum or Plasma (test code = 2160-0) 0.80 mg/dL 0.76-1.27 Glomerular filtration rate/1.73 sq M.predicted [Volume Rate/Area] in Serum, Plasma or Blood by Creatinine-based formula (CKD-EPI 2020) (test code = 09249-7) 101 mL/min/1.73 >59 Urea nitrogen/Creatinine [Mass Ratio] in Serum or Plasma (test code = 3097-3) 8 10-24 L Sodium [Moles/volume] in Serum or Plasma (test code = 2951-2) 131 mmol/L 134-144 L Potassium [Moles/volume] in Serum or Plasma (test code = 2823-3) 5.3 mmol/L 3.5-5.2 H Chloride [Moles/volume] in Serum or Plasma (test code = 5-0) 95 mmol/L 96-106 L Carbon dioxide, total [Moles/volume] in Serum or Plasma (test code = 2027-) 24 mmol/L 20-29 Calcium [Mass/volume] in Serum or Plasma (test code = 79550-2) 10.3 mg/dL 8.6-10.2 H Protein [Mass/volume] in Serum or Plasma (test code = 2885-2) 6.6 g/dL 6.0-8.5 Albumin [Mass/volume] in Serum or Plasma (test code = 1751-7) 4.9 g/dL 3.8-4.9 Globulin [Mass/volume] in Serum by calculation (test code = 22914-0) 1.7 g/dL 1.5-4.5 Albumin/Globulin [Mass Ratio ] in Serum or Plasma (test code = 1759-0) 2.9 1.2-2.2 H Bilirubin.total [Mass/volume ] in Serum or Plasma (test code = 1975-2) 0.2 mg/dL 0.0-1.2 Alkaline phosphatase [Enzymatic activity/volume] in Serum or Plasma (test code = 6768-6) 102 IU/L 44-121 Aspartate aminotransferase [Enzymatic activity/volume] in Serum or Plasma (test code = 1920-8) 21 IU/L 0-40 Alanine aminotransferase [Enzymatic activity/volume] in Serum or Plasma (test code = 1742-6) 30 IU/L 0-44 [facility] - Serum or [id number] 00:00:00* Test Item Value Reference Range Interpretation Comme nts Cholesterol [Mass/volume] in Serum or Plasma (test code = 2093-3) 146 mg/dL 100-199 Triglyceride [Mass/volume] i n Serum or Plasma (test code = 2571-8) 80 mg/dL 0-149 Cholesterol in HDL [Mass/vol ume] in Serum or Plasma (test code = 2085-9) 77 mg/dL >39 Cholesterol in VLDL [Mass/vo lume] in Serum or Plasma by calculation (test code = 75584-8) 15 mg/dL 5-40 Cholesterol in LDL [Mass/vol ume] in Serum or Plasma by calculation (test code = 35424-0) 54 mg/dL 0-99 [facility] CenterAlbum[facility]/Creatinine [Mass Ratio] in [id number] 00:00:00* Test Item Value Reference Range Interpretation Comme nts Creatinine [Mass/volume] in Urine (test code = 2161-8) 70.6 mg/dL not estab. Microalbumin [Mass/volume] i n Urine (test code = 83630-3) 3.5 ug/mL not estab. Albumin/Creatinine [Mass rat io] in Urine (test code = 9318-7) 5 mg/g creat 0-29 [facility] CenterHemoglobin A1c/Hemoglobin.total in [id number] 00:00:00* Test Item Value Reference Range Interpretation Comme nts Hemoglobin A1c/Hemoglobin.to kenn in Blood (test code = 4548-4) 5.4 % 4.8-5.6 Glucose mean value [Mass/vol ume] in Blood Estimated from glycated hemoglobin (test code = 51861-4) 108 mg/dL [facility] CenterHepatitis C virus IgG Ab [Presence] in Serum or Plasma by [id number] 00:00:00* Test Item Value Reference Range Interpretation Comme nts Hepatitis C virus IgG Ab [Presence] in Serum or Plasma by Immunoassay (test code = 16738-1) non reactive non reactive Hepatitis C virus Ab [Presen ce] in Serum or Plasma by Immunoassay (test code = 82657-1) [facility]Un[facility]/volume] in Serum or Plasma by Detection limit <= 0.005 mIU/[id number] 00:00:00* Test Item Value Reference Range Interpretation Comme nts Thyrotropin [Units/volume] i n Serum or Plasma by Detection limit <= 0.005 mIU/L (test code = 60272-2) 0.749 uIU/mL 0.450-4.500 [facility] Ag [Mass/volume] in Serum or Plasma 2022-07-27 00:00:00* Test Item Value Reference Range Interpretation Comme nts Prostate specific Ag [Mass/v olume] in Serum or Plasma (test code = 2857-1) 1.1 NG/mL 0.0-4.0 [facility] CenterYkryjnxk03-Asqjvxkwzclzvq D3+25-Hydroxyvitamin D2 [Mass/volume] in Serum or [id number] 00:00:00* Test Item Value Reference Range Interpretation Comme nts 25-Hydroxyvitamin D3+25-Hydroxyvitamin D2 [Mass/volume] in Serum or Plasma (test code = 25048-9) 28.4 NG/mL 30.0-100.0 [facility] W Auto Differential panel - [id number] 00:00:00 * Test Item Value Reference Range Interpretation Comme nts Leukocytes [#/volume] in Blo od by Automated count (test code = 6690-2) 11.5 x10e3/uL 3.4-10.8 H Erythrocytes [#/volume] in Blood by Automated count (test code = 789-8) 4.33 x10e6/uL 4.14-5.80 Hemoglobin [Mass/volume] in Blood (test code = 718-7) 14.5 g/dL 13.0-17.7 Hematocrit [Volume Fraction] of Blood by Automated count (test code = 4544-3) 42.6 % 37.5-51.0 Erythrocyte mean corpuscular volume [Entitic volume] by Automated count (test code = 787-2) 98 fL 79-97 H Erythrocyte mean corpuscular hemoglobin [Entitic mass] by Automated count (test code = 785-6) 33.5 pg 26.6-33.0 H Erythrocyte mean corpuscular hemoglobin concentration [Mass/volume] by Automated count (test code = 786-4) 34.0 g/dL 31.5-35.7 Erythrocyte distribution wid th [Ratio] by Automated count (test code = 788-0) 12.0 % 11.6-15.4 Platelets [#/volume] in Bloo d by Automated count (test code = 777-3) 288 x10e3/uL 150-450 Neutrophils/100 leukocytes i n Blood by Automated count (test code = 770-8) 91 % not estab. Lymphocytes/100 leukocytes i n Blood by Automated count (test code = 736-9) 5 % not estab. Monocytes/100 leukocytes in Blood by Automated count (test code = 5905-5) 3 % not estab. Eosinophils/100 leukocytes i n Blood by Automated count (test code = 713-8) 0 % not estab. Basophils/100 leukocytes in Blood by Automated count (test code = 706-2) 0 % not estab. Neutrophils [#/volume] in Bl ood by Automated count (test code = 751-8) 10.4 x10e3/uL 1.4-7.0 H Lymphocytes [#/volume] in Bl ood by Automated count (test code = 731-0) 0.6 x10e3/uL 0.7-3.1 L Monocytes [#/volume] in Bloo d by Automated count (test code = 742-7) 0.4 x10e3/uL 0.1-0.9 Eosinophils [#/volume] in Bl ood by Automated count (test code = 711-2) 0.0 x10e3/uL 0.0-0.4 Basophils [#/volume] in Bloo d by Automated count (test code = 704-7) 0.0 x10e3/uL 0.0-0.2 Immature granulocytes/100 leukocytes in Blood by Automated count (test code = 43559-3) 1 % not estab. Immature granulocytes [#/volume] in Blood by Automated count (test code = 98239-7) 0.1 x10e3/uL 0.0-0.1 [facility] [id number] 12:28:00* Test Item Value Reference Range Interpretation Comme nts TROP-I HIGH SENSITIVITY (test code = TROPIHS) 31 pg/mL 0-78 N CAUTION: U nits of the current test methodology (pg/mL) differ from the prior test methodology (ng/mL) by a factor of 1000. - XR CHEST 1 [id number] 10:46:00 [facility] 1960 Sex: MPatient Name: KOTA MONTES Unit No: [id number] EXAMS: CPT CODE: [id number] CHEST 1 V 82379 EXAM: - XR CHEST 1 V DATE: 07/13/2022 9:41 AM. INDICATION: Chest Pain . COMPARISON: Chest x-ray 06/05/2022. TECHNIQUE: Frontal chest. Location: W1 FINDINGS: Lines, Tubes and Hardware:None. Lungs and Pleura: No focal consolidation, pleural effusion, or pneumothorax is identified. Heart and Mediastinum: The heart size is normal. Pulmonary vascularity is unremarkable. Bones: No acute skeletal abnormality is identified. Upper abdomen: Within normal limits IMPRESSION: No acute cardiopulmonary findings. at 1046 Reported and signed by: Danny Myers MD CC: Sandrita Keating Technologist: Stiven Bustillo Time: DAP (Gy m2): Air Kerma (mGy): Trscr Dt/Tm: 07/13/2022 (104) by:[email or web address] Electronic Signature Date/Time:07/13/2022 (1046)Orig Print D/T: S: 07/13/2022 (1049) Name: TIMOTHYMARIKAKOTAVARUN SOTO [facility] [place] Phys: Sandrita Wright [address] : 1960 Age: 61 Sex: [place] [address] Loc: [place].ERS Exam Date: 07/13/2022 Status: REG ER PH: FAX: PAGE 1 Signed ReportBASIC METABOLIC [id number] 10:29:00* Test Item Value Reference Range Interpretation Comme nts SODIUM (test code = NA) 128 mmol/L 135-145 L POTASSIUM (test code = K) 4.0 mmol/L 3.5-5.1 N CHLORIDE (test code = CL) 98 mmol/L 98-107 N CARBON DIOXIDE (test code = CO2) 28 mmol/L 21-32 N ANION GAP (test code = GAP) 6.0 2.0-16.0 N GLUCOSE (test code = GLU) 88 mg/dL 65-99 N BLOOD UREA NITROGEN (test code = BUN) 5 mg/dL 4-23 N GLOMERULAR FILTRATION RATE (test code = GFR) >=60 max estimate ml/min The Glomerular Filtration Rate is a calculated parameterbased on serum Creatinine, patient age and sex. GFR valuesless than 60 mL/min/1.73 square meters are indicative ofChronic Kidney Disease. Values less than 15 mL/min/1.73square meters indicate Kidney failure. The calculation forGFR is based on the CKD-EPI (202) calculation. This formulais race indifferent and is the recommended formula for GFRby the National Kidney Foundation for Adults.The GFR will not calculate if the sex is unknown or if thepatient's age is <18 years. CREATININE (test code = CREAT) 0.8 mg/dL 0.6-1.5 N BUN/CREATININE RATIO (test code = BUN/CREA) 6.3 12.0-20.0 L CALCIUM (test code = CA) 9.6 mg/dL 8.5-10.1 N TROP-I HIGH [id number] 10:29:00* Test Item Value Reference Range Interpretation Comme nts TROP-I HIGH SENSITIVITY (test code = TROPIHS) 34 pg/mL 0-78 N CAUTION: U nits of the current test methodology (pg/mL) differ from the prior test methodology (ng/mL) by a factor of 1000. CBC W/AUTO [id number] 10:21:00* Test Item Value Reference Range Interpretation Comme nts WHITE BLOOD CELL (test code = WBC) 6.9 10 3/uL 4.5-11.0 N RED BLOOD CELL (test code = RBC) 4.01 10 6/uL 4.30-5.90 L HEMOGLOBIN (test code = HGB) 14.0 g/dL 14.0-18.0 N HEMATOCRIT (test code = HCT) 40.8 % 40.0-55.0 N MEAN CELL VOLUME (test code = MCV) 102 fL 81-102 N MEAN CELL HGB (test code = MCH) 34.9 pg 26.0-34.0 H MEAN CELL HGB CONCENTRATION (test code = MCHC) 34.3 g/dL 31.0-37.0 N RED CELL DISTRIBUTION WIDTH (test code = RDW) 13.3 % 11.6-14.4 N PLATELET COUNT (test code = PLT) 275 10 3/uL 150-400 N MEAN PLATELET VOLUME (test code = MPV) 8.8 fL 9.0-12.6 L NEUTROPHIL % (test code = NT%) 76.8 % 33.0-76.0 H IMMATURE GRANULOCYTE % (test code = IG%) 0.4 % 0.0-1.0 N LYMPHOCYTE % (test code = LY%) 12.1 % 14.0-56.4 L MONOCYTE % (test code = MO%) 8.5 % 0.0-12.9 N EOSINOPHIL % (test code = EO%) 1.6 % 0.0-7.0 N BASOPHIL % (test code = BA%) 0.6 % 0-2.0 N NUCLEATED RBC % (test code = NRBC%) 0.0 % 0-0.2 N NEUTROPHIL # (test code = NT#) 5.26 10 3/uL 1.5-7.0 N IMMATURE GRANULOCYTE # (test code = IG#) 0.030 x10 3/uL 0.000-0.100 N LYMPHOCYTE # (test code = LY#) 0.83 10 3/uL 1.50-4.00 L MONOCYTE # (test code = MO#) 0.58 10 3/uL 0.20-0.80 N EOSINOPHIL # (test code = EO#) 0.11 10 3/uL 0.0-0.5 N BASOPHIL # (test code = BA#) 0.04 10 3/uL 0.0-0.1 N NUCLEATED RBC # (test code = NRBC#) 0.000 10 3/uL 0.000-0.012 N BASIC METABOLIC [id number] 16:53:00* Test Item Value Reference Range Interpretation Comme nts SODIUM (test code = NA) 130 mmol/L 136-145 L POTASSIUM (test code = K) 4.7 mmol/L 3.5-5.1 N CHLORIDE (test code = CL) 99 CARBON DIOXIDE (test code = CO2) 25 mmol/L 20-31 N GLUCOSE (test code = GLU) 104 ng/dL 74-106 N BLOOD UREA NITROGEN (test code = BUN) 7 mg/dL 9-23 L GLOMERULAR FILTRATION RATE (test code = GFR) >=60 max estimate mL/min >60 The Glomerular Filtration Rate is a calculated parameterbased on serum Creatinine, patient age and sex. GFR valuesless than 60 mL/min/1.73 square meters are indicative ofChronic Kidney Disease. Values less than 15 mL/min/1.73square meters indicate Kidney failure. The calculation forGFR is based on the CKD-EPI (2020) calculation. This formulais race indifferent and is the recommended formula for GFRby the National Kidney Foundation for Adults.The GFR will not calculate if the sex is unknown or if thepatient's age is <18 years. CREATININE (test code = CREAT) 0.80 mg/dL 0.70-1.30 N CALCIUM (test code = CA) 8.6 mg/dL 8.7-10.4 L [id number] 16:53:00* Test Item Value Reference Range Interpretation Comme nts PHOSPHOROUS (test code = PHOS) 3.6 mg/dL 2.4-5.1 N [id number] 16:51:00* Test Item Value Reference Range Interpretation Comme nts MAGNESIUM (test code = MAG) 1.8 mg/dL 1.6-2.6 N - XR CHEST 1 [id number] 08:06:00 [facility] 1960 Sex: MPatient Name: KOTA MONTES Unit No: [id number] EXAMS: CPT CODE: [id number] XR CHEST 1 V 18159 EXAM: XR Chest 1 View INDICATION: SOB LOCATION: A1 COMPARISON: Chest radiograph dated 06/04/2022 TECHNIQUE: Frontal view of the chest was obtained. FINDINGS: There is mild pulmonary vascular congestion, similar to prior. There is no pleural effusion or pneumothorax. The cardiomediastinal silhouette is unchanged. No acute osseous abnormality is identified. IMPRESSION: No significant change from prior. at 0806 Reported and signed by: CRUZ VÁZQUEZ M.D. CC: Annabelle Zazueta MD; Shonna Laughlin Technologist: TOM AMARAL (Jane) Fluoro Time: DAP (Gy m2): Air Kerma (mGy): Trscr Dt/Tm: 06/05/2022 (0806) by:[email or web address] Printed Date/Time: 06/05/2022 (0809) Name: KOTA MONTES [facility] Phys: [id number] - Shonna Laughlin CUSTOMER CARE REPRESENTATIVE [address] : 1960 Age: 61 Sex: [place] [address] [id number] Loc: P.0216 1 Exam Date: 06/05/2022 Status: ADM IN PH: FAX: PAGE 1 Signed [id number] 03:16:00* Test Item Value Reference Range Interpretation Comme nts MAGNESIUM (test code = MAG) 1.8 mg/dL 1.6-2.6 N COMPREHENSIVE METABOLIC [id number] 03:16:00* Test Item Value Reference Range Interpretation Comme nts SODIUM (test code = NA) 133 mmol/L 136-145 L POTASSIUM (test code = K) 4.3 mmol/L 3.5-5.1 N CHLORIDE (test code = CL) 102 CARBON DIOXIDE (test code = CO2) 24 mmol/L 20-31 N GLUCOSE (test code = GLU) 89 ng/dL 74-106 N BLOOD UREA NITROGEN (test code = BUN) 8 mg/dL 9-23 L GLOMERULAR FILTRATION RATE (test code = GFR) >=60 max estimate mL/min >60 The Glomerular Filtration Rate is a calculated parameterbased on serum Creatinine, patient age and sex. GFR valuesless than 60 mL/min/1.73 square meters are indicative ofChronic Kidney Disease. Values less than 15 mL/min/1.73square meters indicate Kidney failure. The calculation forGFR is based on the CKD-EPI (2020) calculation. This formulais race indifferent and is the recommended formula for GFRby the National Kidney Foundation for Adults.The GFR will not calculate if the sex is unknown or if thepatient's age is <18 years. CREATININE (test code = CREAT) 0.60 mg/dL 0.70-1.30 L TOTAL PROTEIN (test code = PROT) 6.3 mg/dL 5.7-8.2 N ALBUMIN (test code = ALB) 4.1 mg/dL 3.2-4.8 N CALCIUM (test code = CA) 8.7 mg/dL 8.7-10.4 N BILIRUBIN TOTAL (test code = BILT) 0.5 mg/mL 0.3-1.2 N SGOT/AST (test code = AST) 164 I/U <34 H SGPT/ALT (test code = ALT) 41 U/L 10-49 N ALKALINE PHOSPHATASE (test code = ALKP) 88.0 U/L 46-116 N [id number] 03:16:00* Test Item Value Reference Range Interpretation Comme nts PHOSPHOROUS (test code = PHOS) 3.8 mg/dL 2.4-5.1 N THROMBOPLASTIN TIME [id number] 03:12:00* Test Item Value Reference Range Interpretation Comme nts THROMBOPLASTIN TIME PARTIAL (test code = PTT) 30.8 SECONDS 23.8-34.8 N INTERPRETATIVE DATA:Therapeutic range: Unfractionated heparin:55 - 80 seconds Argatroban:1.5 to 3 times the baseline PTT [id number] 03:12:00* Test Item Value Reference Range Interpretation Comme nts FIBRINOGEN (test code = FIB) 550 mg/dL 200-400 H CBC W/AUTO [id number] 03:01:00* Test Item Value Reference Range Interpretation Comme nts WHITE BLOOD CELL (test code = WBC) 7.8 x10 3/uL 4.8-10.8 N RED BLOOD CELL (test code = RBC) 2.99 x10 6/uL 4.70-6.10 L HEMOGLOBIN (test code = HGB) 10.9 g/dL 14.0-18.0 L HEMATOCRIT (test code = HCT) 31.6 % 42.0-52.0 L MEAN CELL VOLUME (test code = MCV) 105.7 fL 80.0-94.0 H MEAN CELL HGB (test code = MCH) 36.5 pg 27-31 H MEAN CELL HGB CONCENTRATION (test code = MCHC) 34.5 G/DL 33-36.5 N RED CELL DISTRIBUTION WIDTH (test code = RDW) 13.1 % 12.9-16.9 N PLATELET COUNT (test code = PLT) 264 x10 3/uL 150-440 N MEAN PLATELET VOLUME (test c ode = MPV) 8.7 fL 8.9-12.4 L NEUTROPHIL % (test code = NT%) 79.1 % 42.2-75.2 H LYMPHOCYTE % (test code = LY%) 10.2 % 20.5-51.1 L MONOCYTE % (test code = MO%) 9.3 % 1.7-9.3 N EOSINOPHIL % (test code = EO%) 0.4 % 0.0-7.0 N BASOPHIL % (test code = BA%) 0.5 % 0-2.5 N NEUTROPHIL # (test code = NT#) 6.13 x10 3/uL 1.80-7.70 N LYMPHOCYTE # (test code = LY#) 0.79 x10 3/uL 1.00-4.80 L MONOCYTE # (test code = MO#) 0.72 x10 3/uL 0.00-0.80 N EOSINOPHIL # (test code = EO#) 0.03 x10 3/uL 0.00-0.45 N BASOPHIL # (test code = BA#) 0.04 x10 3/uL 0.0-0.20 N BLOOD GAS [id number]/[id number] 02:53:00* Test Item Value Reference Range Interpretation Comme nts ARTERIAL BLOOD GAS PH (test code = PHA) 7.45 7.35-7.45 N ARTERIAL BLOOD GAS PCO2 (test code = PCO2A) 36.3 mmHg 35.0-45.0 N ARTERIAL BLOOD GAS PO2 (test code = PO2A) 75.1 mmHg 80.0-95.0 L BICARBONATE TOTAL HCO3 (test code = HCO3) 24.6 mmol/L 22.0-24.0 H BASE EXCESS (test code = UZIEL) 0.8 mmol/L See_Comment N [Automated message] The system which generated this result transmitted reference range: (+/-)2.0. The reference range was not used to interpret this result as normal/abnormal. ABG O2 SATURATION (test code = SATA) 95.6 % 95.0-100.0 N ARTERIAL FIO2 (test code = FIO2A) 21.0 % ABG VENT MODE (test code = MODEA) Room Air ALLENS TEST (test code = ALLENS) NOT APPLICABLE SODIUM (POC) (test code = NA/ABG) 132 mmol/L 135-147 L POTASSIUM (POC) (test code = K/ABG) 4.34 mmol/L 3.6-5.2 N CHLORIDE (ARTERIAL) (test code = CL/ABG) 99 mmol/L 98-108 N GLUCOSE (test code = GLU/ABG) 87 mg/dL 70-104 N IONIZED CALCIUM (test code = CAIABG) 1.18 mmol/L 1.12-1.32 N POC LACTIC ACID (test code = POCLAC) 0.90 mmol/L 0.5-2.2 N TOTAL HGB (test code = THB) 11.9 g/dL 13.0-17.0 L CARBOXYHEMOGLOBIN (test code = HOHGBT) 0.3 % 0-5.0 N METHEMOGLOBIN (test code = METHGB) <0.8 % 0-1.5 N HHb (test code = HHB) 4.4 % TCO2 ARTERIAL (test code = TCO2A) 25.7 MMOL/L 24-30 N BASIC METABOLIC [id number] 21:04:00* Test Item Value Reference Range Interpretation Comme nts SODIUM (test code = NA) 133 mmol/L 136-145 L POTASSIUM (test code = K) 4.1 mmol/L 3.5-5.1 N CHLORIDE (test code = CL) 102 CARBON DIOXIDE (test code = CO2) 22 mmol/L 20-31 N GLUCOSE (test code = GLU) 117 ng/dL 74-106 H BLOOD UREA NITROGEN (test code = BUN) 7 mg/dL 9-23 L GLOMERULAR FILTRATION RATE (test code = GFR) >=60 max estimate mL/min >60 The Glomerular Filtration Rate is a calculated parameterbased on serum Creatinine, patient age and sex. GFR valuesless than 60 mL/min/1.73 square meters are indicative ofChronic Kidney Disease. Values less than 15 mL/min/1.73square meters indicate Kidney failure. The calculation forGFR is based on the CKD-EPI (2020) calculation. This formulais race indifferent and is the recommended formula for GFRby the National Kidney Foundation for Adults.The GFR will not calculate if the sex is unknown or if thepatient's age is <18 years. CREATININE (test code = CREAT) 0.60 mg/dL 0.70-1.30 L CALCIUM (test code = CA) 8.6 mg/dL 8.7-10.4 L [id number] 21:04:00* Test Item Value Reference Range Interpretation Comme nts PHOSPHOROUS (test code = PHOS) 3.8 mg/dL 2.4-5.1 N [id number] 21:02:00* Test Item Value Reference Range Interpretation Comme nts MAGNESIUM (test code = MAG) 2.0 mg/dL 1.6-2.6 N CBC W/AUTO [id number] 20:46:00* Test Item Value Reference Range Interpretation Comme nts WHITE BLOOD CELL (test code = WBC) 9.0 x10 3/uL 4.8-10.8 N RED BLOOD CELL (test code = RBC) 3.19 x10 6/uL 4.70-6.10 L HEMOGLOBIN (test code = HGB) 11.7 g/dL 14.0-18.0 L HEMATOCRIT (test code = HCT) 34.2 % 42.0-52.0 L MEAN CELL VOLUME (test code = MCV) 107.2 fL 80.0-94.0 H MEAN CELL HGB (test code = MCH) 36.7 pg 27-31 H MEAN CELL HGB CONCENTRATION (test code = MCHC) 34.2 G/DL 33-36.5 N RED CELL DISTRIBUTION WIDTH (test code = RDW) 13.1 % 12.9-16.9 N PLATELET COUNT (test code = PLT) 289 x10 3/uL 150-440 N MEAN PLATELET VOLUME (test c ode = MPV) 8.7 fL 8.9-12.4 L NEUTROPHIL % (test code = NT%) 75.9 % 42.2-75.2 H LYMPHOCYTE % (test code = LY%) 14.8 % 20.5-51.1 L MONOCYTE % (test code = MO%) 7.5 % 1.7-9.3 N EOSINOPHIL % (test code = EO%) 0.8 % 0.0-7.0 N BASOPHIL % (test code = BA%) 0.3 % 0-2.5 N NEUTROPHIL # (test code = NT#) 6.84 x10 3/uL 1.80-7.70 N LYMPHOCYTE # (test code = LY#) 1.33 x10 3/uL 1.00-4.80 N MONOCYTE # (test code = MO#) 0.68 x10 3/uL 0.00-0.80 N EOSINOPHIL # (test code = EO#) 0.07 x10 3/uL 0.00-0.45 N BASOPHIL # (test code = BA#) 0.03 x10 3/uL 0.0-0.20 N BLOOD GAS [id number]/[id number] 20:37:00* Test Item Value Reference Range Interpretation Comme nts ARTERIAL BLOOD GAS PH (test code = PHA) 7.39 7.35-7.45 N ARTERIAL BLOOD GAS PCO2 (test code = PCO2A) 39.6 mmHg 35.0-45.0 N ARTERIAL BLOOD GAS PO2 (test code = PO2A) 49.3 mmHg 80.0-95.0 LL Critical Valu e reported toFirst Name:CURRICULUM CONSULTANT Last Name:NPRESULTS READ BACK AND VERIFIEDby [email or web address], on 06/04/22, @ 2036. BICARBONATE TOTAL HCO3 (test code = HCO3) 23.5 mmol/L 22.0-24.0 N BASE EXCESS (test code = UZIEL) -1.2 mmol/L See_Comment N [Automated message] The system which generated this result transmitted reference range: (+/-)2.0. The reference range was not used to interpret this result as normal/abnormal. ABG O2 SATURATION (test code = SATA) 83.3 % 95.0-100.0 L ARTERIAL FIO2 (test code = FIO2A) 32.0 % ABG VENT MODE (test code = MODEA) NASAL CANNULA ALLENS TEST (test code = ALLENS) NOT APPLICABLE SODIUM (POC) (test code = NA/ABG) 133 mmol/L 135-147 L POTASSIUM (POC) (test code = K/ABG) 4.17 mmol/L 3.6-5.2 N CHLORIDE (ARTERIAL) (test code = CL/ABG) 100 mmol/L 98-108 N GLUCOSE (test code = GLU/ABG) 113 mg/dL 70-104 H IONIZED CALCIUM (test code = CAIABG) 1.18 mmol/L 1.12-1.32 N POC LACTIC ACID (test code = POCLAC) 1.23 mmol/L 0.5-2.2 N TOTAL HGB (test code = THB) 12.6 g/dL 13.0-17.0 L OXYHEMOGLOBIN (test code = OOHGBT) 82.8 % 92.0-98.0 L CARBOXYHEMOGLOBIN (test code = HOHGBT) 0.3 % 0-5.0 N METHEMOGLOBIN (test code = METHGB) <0.8 % 0-1.5 N HHb (test code = HHB) 16.6 % TCO2 ARTERIAL (test code = TCO2A) 24.8 MMOL/L 24-30 N COAGULATION TIME [id number] 19:51:00* Test Item Value Reference Range Interpretation Comme nts COAGULATION TIME ACTIVATED ( test code = ACT) 233 SECONDS 74-137 H COAGULATION TIME [id number] 18:56:00* Test Item Value Reference Range Interpretation Comme nts COAGULATION TIME ACTIVATED ( test code = ACT) 149 SECONDS 74-137 H COAGULATION TIME [id number] 17:30:00* Test Item Value Reference Range Interpretation Comme nts COAGULATION TIME ACTIVATED ( test code = ACT) 353 SECONDS 74-137 H [id number] 12:07:00* Test Item Value Reference Range Interpretation Comme nts MAGNESIUM (test code = MAG) 1.8 mg/dL 1.6-2.6 N BASIC METABOLIC [id number] 12:02:00* Test Item Value Reference Range Interpretation Comme nts SODIUM (test code = NA) 135 mmol/L 136-145 L POTASSIUM (test code = K) 4.1 mmol/L 3.5-5.1 N CHLORIDE (test code = CL) 104 CARBON DIOXIDE (test code = CO2) 27 mmol/L 20-31 N GLUCOSE (test code = GLU) 92 ng/dL 74-106 N BLOOD UREA NITROGEN (test code = BUN) 7 mg/dL 9-23 L GLOMERULAR FILTRATION RATE (test code = GFR) >=60 max estimate mL/min >60 The Glomerular Filtration Rate is a calculated parameterbased on serum Creatinine, patient age and sex. GFR valuesless than 60 mL/min/1.73 square meters are indicative ofChronic Kidney Disease. Values less than 15 mL/min/1.73square meters indicate Kidney failure. The calculation forGFR is based on the CKD-EPI (2020) calculation. This formulais race indifferent and is the recommended formula for GFRby the National Kidney Foundation for Adults.The GFR will not calculate if the sex is unknown or if thepatient's age is <18 years. CREATININE (test code = CREAT) 0.60 mg/dL 0.70-1.30 L CALCIUM (test code = CA) 8.7 mg/dL 8.7-10.4 N - XR CHEST 1 [id number] 08:28:00 [facility] 1960 Sex: MPatient Name: KOTA MONTES Unit No: [id number] EXAMS: CPT CODE: [id number] XR CHEST 1 V 62475 HISTORY: Shortness of breath Location code: B2 FINDINGS: Frontal view of the chest demonstrates normal cardiomediastinal silhouette. The trachea is midline. The lungs are clear. There is no effusion or pneumothorax. The bones are intact. IMPRESSION: No acute pulmonary process. at 0828 Reported and signed by: Eric Fitzgerald M.D. CC: Annabelle Zazueta MD; Shonna Laughlin Technologist: JJ WILL Fluoro Time: DAP (Gy m2): Air Kerma (mGy): Trscr Dt/Tm: 06/04/2022 (0828) by:[email or web address] Printed Date/Time: 06/04/2022 (0831) Name: KOTA MONTES [facility] Phys: [id number] Shonna Gomez APRN [address] : 1960 Age: 61 Sex: [place] [address] Loc: P.0216 1 Exam Date: 06/04/2022 Status: ADM IN PH: FAX: PAGE 1 Signed ReportBASIC METABOLIC [id number] 01:25:00* Test Item Value Reference Range Interpretation Comme nts SODIUM (test code = NA) 137 mmol/L 136-145 N POTASSIUM (test code = K) 4.2 mmol/L 3.5-5.1 N CHLORIDE (test code = CL) 105 CARBON DIOXIDE (test code = CO2) 27 mmol/L 20-31 N GLUCOSE (test code = GLU) 100 ng/dL 74-106 N BLOOD UREA NITROGEN (test code = BUN) 7 mg/dL 9-23 L GLOMERULAR FILTRATION RATE (test code = GFR) >=60 max estimate mL/min >60 The Glomerular Filtration Rate is a calculated parameterbased on serum Creatinine, patient age and sex. GFR valuesless than 60 mL/min/1.73 square meters are indicative ofChronic Kidney Disease. Values less than 15 mL/min/1.73square meters indicate Kidney failure. The calculation forGFR is based on the CKD-EPI (2020) calculation. This formulais race indifferent and is the recommended formula for GFRby the National Kidney Foundation for Adults.The GFR will not calculate if the sex is unknown or if thepatient's age is <18 years. CREATININE (test code = CREAT) 0.70 mg/dL 0.70-1.30 N CALCIUM (test code = CA) 9.0 mg/dL 8.7-10.4 N COMPREHENSIVE METABOLIC [id number] 01:25:00* Test Item Value Reference Range Interpretation Comme nts TOTAL PROTEIN (test code = PROT) 6.4 mg/dL 5.7-8.2 N ALBUMIN (test code = ALB) 4.2 mg/dL 3.2-4.8 N BILIRUBIN TOTAL (test code = BILT) 0.3 mg/mL 0.3-1.2 N SGOT/AST (test code = AST) 36 I/U <34 H SGPT/ALT (test code = ALT) 27 U/L 10-49 N ALKALINE PHOSPHATASE (test c ode = ALKP) 102.0 U/L 46-116 N [id number] 01:25:00* Test Item Value Reference Range Interpretation Comme nts PHOSPHOROUS (test code = PHOS) 3.8 mg/dL 2.4-5.1 CBC W/MANUAL [id number] 01:22:00* Test Item Value Reference Range Interpretation Comme nts WHITE BLOOD CELL (test code = WBC) 5.8 x10 3/uL 4.8-10.8 N RED BLOOD CELL (test code = RBC) 2.98 x10 6/uL 4.70-6.10 L HEMOGLOBIN (test code = HGB) 10.8 g/dL 14.0-18.0 L HEMATOCRIT (test code = HCT) 31.4 % 42.0-52.0 L MEAN CELL VOLUME (test code = MCV) 105.4 fL 80.0-94.0 H MEAN CELL HGB (test code = MCH) 36.2 pg 27-31 H MEAN CELL HGB CONCENTRATION (test code = MCHC) 34.4 G/DL 33-36.5 N RED CELL DISTRIBUTION WIDTH (test code = RDW) 13.2 % 12.9-16.9 N PLATELET COUNT (test code = PLT) 251 x10 3/uL 150-440 N MEAN PLATELET VOLUME (test c ode = MPV) 8.8 fL 8.9-12.4 L TOTAL CELLS COUNTED (test co de = TCC) 100 #CELLS SEGMENTED NEUTROPHILS (test code = SEG) 62 % 49-71 N LYMPHOCYTE (test code = LYMPH) 14 % 20-40 L ATYPICAL LYMPH (test code = ALYMPH) 15 % 0-1 H MONOCYTE (test code = MON) 8 % 3-8 N EOSINOPHIL (test code = EOS) 1 % 1-5 N HYPOCHROMIA (test code = HYPO) 2+ NONE SEEN A PLATELET ESTIMATE (test code = PLTEST) ADEQUATE ADEQUATE PLATELET MORPHOLOGY (test co de = PLTMORPH) NORMAL NORMAL B-TYPE NATRIURETIC [id number] 00:59:00* Test Item Value Reference Range Interpretation Comme nts B-TYPE NATRIURETIC PEPTIDE ( test code = BNP) 75 pg/mL <100 N [id number] 00:56:00* Test Item Value Reference Range Interpretation Comme nts MAGNESIUM (test code = MAG) 1.8 mg/dL 1.6-2.6 N PROTHROMBIN [id number] 00:48:00* Test Item Value Reference Range Interpretation Comme nts PROTHROMBIN TIME PATIENT (test code = PTP) 10.9 SECONDS 10.3-12.9 N INTERNATIONAL NORMAL RATIO (test code = INR) 0.92 INR UNIT 0.9-1.11 N The INR is usefu l only for monitoring anticoagulant therapy.It may be unreliable in the initial phase of antigoagulationand in unstable patients. Indication for Anticoagulation Recommended INR 1. Prevention of venous thomboembolism 2.0-3.0in high-risk patients; treatment of venousthrombosis and pulmonary embolism aftera course of heparin; prevention of systemicembolism in a variety of conditions, including atrial fibrillation and prothetic tissue heart valves, 2. Prosthetic mechanical heart valves; 2.5-3.5recurrent systemic embolism. THROMBOPLASTIN TIME [id number] 00:48:00* Test Item Value Reference Range [facility]ation [facility] PARTIAL (test code = PTT) 30.9 SECONDS 23.8-34.8 N INTERPRETATIVE DATA:Therapeutic range: Unfractionated heparin:55 - 80 seconds Argatroban:1.5 to 3 times the baseline PTT [id number] 00:48:00* Test Item Value Reference Range Interpretation [facility] FIBR[facility]EN (test code = FIB) 578 mg/dL 200-400 H COVID 19 Asymptomatic IH [id number] 21:32:00* Test Item Value Reference Range Interpretation [facility] COVID 19 Asymptomatic IH AG (test code = COVNONPUIAG) NEGATIVE NEGATIVE Negative results , from patients with symptom onset beyondfive days, should be treated as presumptive and confirmationwith a molecular assay, if necessary for patientmanagement, may be performed. Negative results do not ruleout COVID-19 and should not be used as the sole basis fortreatment or patient management decisions, includinginfection control decisions. Negative results should beconsidered in the context of a patient's recent exposures,history and the presence of clinical signs and symptomsconsistent with COVID-19. Novel Coronavirus [id number] 21:13:00* Test Item Value Reference Range Interpretation [facility] Novel [facility]avirus 2019 Inhouse (test code = [id number]) Negative Negative Positive resul ts are indicative of the presence jnMNJI-GkT-5 RNA, clinical correlation with patient historyand other diagnostic information is necessary to determinepatient infection status. Positive results do not rule outbacterial infection or co-infection with other viruses. Negative results do not preclude SARS-CoV-2 infection andshould not be used as the sole basis for patient managementdecisions. Negative results must be combined with otherclinical observations, patient history, and epidemiologicalinformation . Detection of SARS-CoV-2 RNA may be affected bysample collection methods, storage conditions, and/or stageof infection. Viral RNA mutations, vaccinations, antiviraltherapeutics, antibiotics, chemotherapeutic orimmunosuppressant drugs have not been evaluated for effectson detection. Results are for the identification of SARS-CoV-2 RNA usingreal-time (RT) polymerase chain reaction (PCR) technologyfor the qualitative detection of nucleic acids from mqiGRZM-KgK-8 virus and diagnosis of SARS-CoV-2 virusinfection. It is an Emergency Use Authorization (EUA) testauthorized by the U.S. FDA. Novel Coronavirus [id number] 21:12:00* Test Item Value Reference Range Interpretation Comme nts Novel Coronavirus 2019 Inhouse (test code = [id number]) Negative Negative Positive resul ts are indicative of the presence avZMWB-HvS-8 RNA, clinical correlation with patient historyand other diagnostic information is necessary to determinepatient infection status. Positive results do not rule outbacterial infection or co-infection with other viruses. Negative results do not preclude SARS-CoV-2 infection andshould not be used as the sole basis for patient managementdecisions. Negative results must be combined with otherclinical observations, patient history, and epidemiologicalinformation . Detection of SARS-CoV-2 RNA may be affected bysample collection methods, storage conditions, and/or stageof infection. Viral RNA mutations, vaccinations, antiviraltherapeutics, antibiotics, chemotherapeutic orimmunosuppressant drugs have not been evaluated for effectson detection. Results are for the identification of SARS-CoV-2 RNA usingreal-time (RT) polymerase chain reaction (PCR) technologyfor the qualitative detection of nucleic acids from zamVBOG-LrA-1 virus and diagnosis of SARS-CoV-2 virusinfection. It is an Emergency Use Authorization (EUA) testauthorized by the U.S. FDA. BASIC METABOLIC [id number] 11:55:00* Test Item Value Reference Range Interpretation Comme nts SODIUM (test code = NA) 134 mmol/L 136-145 L POTASSIUM (test code = K) 4.2 mmol/L 3.5-5.1 N CHLORIDE (test code = CL) 103 CARBON DIOXIDE (test code = CO2) 27 mmol/L 20-31 N GLUCOSE (test code = GLU) 95 ng/dL 74-106 N BLOOD UREA NITROGEN (test code = BUN) 7 mg/dL 9-23 L GLOMERULAR FILTRATION RATE (test code = GFR) >=60 max estimate mL/min >60 The Glomerular Filtration Rate is a calculated parameterbased on serum Creatinine, patient age and sex. GFR valuesless than 60 mL/min/1.73 square meters are indicative ofChronic Kidney Disease. Values less than 15 mL/min/1.73square meters indicate Kidney failure. The calculation forGFR is based on the CKD-EPI (2020) calculation. This formulais race indifferent and is the recommended formula for GFRby the National Kidney Foundation for Adults.The GFR will not calculate if the sex is unknown or if thepatient's age is <18 years. CREATININE (test code = CREAT) 0.70 mg/dL 0.70-1.30 N CALCIUM (test code = CA) 8.5 mg/dL 8.7-10.4 L [id number] 11:55:00* Test Item Value Reference Range Interpretation Comme nts PHOSPHOROUS (test code = PHOS) 2.3 mg/dL 2.4-5.1 L [id number] 11:53:00* Test Item Value Reference Range Interpretation Comme nts MAGNESIUM (test code = MAG) 2.0 mg/dL 1.6-2.6 N - XR CHEST 1 [id number] 07:16:00 [facility] : 1960 Sex: MPatient Name: MONTESKOTAVARUN SOTO Unit No: [id number] EXAMS: CPT CODE: [id number] XR CHEST 1 V 71732 CLINICAL HISTORY: SOB. LOCATION: A1 FINDINGS: Comparison is made with a previous study dated June 02, 2022. A portable AP view of the chest is dated 06/03/2022 at 2:01 AM. The cardiomediastinal silhouette is within normal limits. There are no infiltrates or pleural effusions. No skeletal or soft tissue abnormalities. IMPRESSION: 1. No acute disease. at 0716 Reported and signed by: ELIAN ARORA M.D. CC: Annabelle Zazueta MD; Shonna Laughlin Technologist: Dave Bustillo Time: DAP (Gy m2): Air Kerma (mGy): Trscr Dt/Tm: 06/03/2022 (715) by:[email or web address] Printed Date/Time: 06/03/2022 (07) [facility] Phys: WRShonna Loo APRN [address] : 1960 Age: 61 Sex: [place] [address] Loc: P.0216 1 Exam Date: 06/03/2022 Status: ADM IN PH: FAX: PAGE 1 Signed ReportBASIC METABOLIC [id number] 04:27:00* Test Item Value Reference Range Interpretation Comme nts SODIUM (test code = NA) 134 mmol/L 136-145 L POTASSIUM (test code = K) 3.9 mmol/L 3.5-5.1 N CHLORIDE (test code = CL) 102 CARBON DIOXIDE (test code = CO2) 28 mmol/L 20-31 N GLUCOSE (test code = GLU) 94 ng/dL 74-106 N BLOOD UREA NITROGEN (test code = BUN) 8 mg/dL 9-23 L GLOMERULAR FILTRATION RATE (test code = GFR) >=60 max estimate mL/min >60 The Glomerular Filtration Rate is a calculated parameterbased on serum Creatinine, patient age and sex. GFR valuesless than 60 mL/min/1.73 square meters are indicative ofChronic Kidney Disease. Values less than 15 mL/min/1.73square meters indicate Kidney failure. The calculation forGFR is based on the CKD-EPI (2020) calculation. This formulais race indifferent and is the recommended formula for GFRby the National Kidney Foundation for Adults.The GFR will not calculate if the sex is unknown or if thepatient's age is <18 years. CREATININE (test code = CREAT) 0.70 mg/dL 0.70-1.30 N CALCIUM (test code = CA) 8.5 mg/dL 8.7-10.4 L COMPREHENSIVE METABOLIC [id number] 04:27:00* Test Item Value Reference Range Interpretation Comme nts TOTAL PROTEIN (test code = PROT) 5.9 mg/dL 5.7-8.2 N ALBUMIN (test code = ALB) 3.8 mg/dL 3.2-4.8 N BILIRUBIN TOTAL (test code = BILT) 0.4 mg/mL 0.3-1.2 N SGOT/AST (test code = AST) 35 I/U <34 H SGPT/ALT (test code = ALT) 27 U/L 10-49 N ALKALINE PHOSPHATASE (test c ode = ALKP) 88.0 U/L 46-116 N [id number] 04:27:00* Test Item Value Reference Range Interpretation Comme nts PHOSPHOROUS (test code = PHOS) 3.4 mg/dL 2.4-5.1 N [id number] 04:25:00* Test Item Value Reference Range Interpretation Comme nts MAGNESIUM (test code = MAG) 1.8 mg/dL 1.6-2.6 N CBC W/AUTO [id number] 04:09:00* Test Item Value Reference Range Interpretation Comme nts WHITE BLOOD CELL (test code = WBC) 5.9 x10 3/uL 4.8-10.8 N RED BLOOD CELL (test code = RBC) 2.77 x10 6/uL 4.70-6.10 L HEMOGLOBIN (test code = HGB) 10.1 g/dL 14.0-18.0 L HEMATOCRIT (test code = HCT) 28.8 % 42.0-52.0 L MEAN CELL VOLUME (test code = MCV) 104.0 fL 80.0-94.0 H MEAN CELL HGB (test code = MCH) 36.5 pg 27-31 H MEAN CELL HGB CONCENTRATION (test code = MCHC) 35.1 G/DL 33-36.5 N RED CELL DISTRIBUTION WIDTH (test code = RDW) 13.1 % 12.9-16.9 N PLATELET COUNT (test code = PLT) 227 x10 3/uL 150-440 N MEAN PLATELET VOLUME (test c ode = MPV) 8.7 fL 8.9-12.4 L NEUTROPHIL % (test code = NT%) 60.9 % 42.2-75.2 N LYMPHOCYTE % (test code = LY%) 20.0 % 20.5-51.1 L MONOCYTE % (test code = MO%) 16.2 % 1.7-9.3 H EOSINOPHIL % (test code = EO%) 1.9 % 0.0-7.0 N BASOPHIL % (test code = BA%) 0.5 % 0-2.5 N NEUTROPHIL # (test code = NT#) 3.56 x10 3/uL 1.80-7.70 N LYMPHOCYTE # (test code = LY#) 1.17 x10 3/uL 1.00-4.80 N MONOCYTE # (test code = MO#) 0.95 x10 3/uL 0.00-0.80 H EOSINOPHIL # (test code = EO#) 0.11 x10 3/uL 0.00-0.45 N BASOPHIL # (test code = BA#) 0.03 x10 3/uL 0.0-0.20 N [id number] 21:33:00* Test Item Value Reference Range Interpretation Comme nts MAGNESIUM (test code = MAG) 2.1 mg/dL 1.6-2.6 N COMPREHENSIVE METABOLIC [id number] 21:24:00* Test Item Value Reference Range Interpretation Comme nts SODIUM (test code = NA) 134 mmol/L 136-145 L POTASSIUM (test code = K) 3.6 mmol/L 3.5-5.1 N CHLORIDE (test code = CL) 100 CARBON DIOXIDE (test code = CO2) 28 mmol/L 20-31 N GLUCOSE (test code = GLU) 106 ng/dL 74-106 N BLOOD UREA NITROGEN (test code = BUN) 9 mg/dL 9-23 N GLOMERULAR FILTRATION RATE (test code = GFR) >=60 max estimate mL/min >60 The Glomerular Filtration Rate is a calculated parameterbased on serum Creatinine, patient age and sex. GFR valuesless than 60 mL/min/1.73 square meters are indicative ofChronic Kidney Disease. Values less than 15 mL/min/1.73square meters indicate Kidney failure. The calculation forGFR is based on the CKD-EPI (202) calculation. This formulais race indifferent and is the recommended formula for GFRby the National Kidney Foundation for Adults.The GFR will not calculate if the sex is unknown or if thepatient's age is <18 years. CREATININE (test code = CREAT) 0.90 mg/dL 0.70-1.30 N TOTAL PROTEIN (test code = PROT) 6.2 mg/dL 5.7-8.2 N ALBUMIN (test code = ALB) 4.0 mg/dL 3.2-4.8 N CALCIUM (test code = CA) 9.0 mg/dL 8.7-10.4 N BILIRUBIN TOTAL (test code = BILT) 0.4 mg/mL 0.3-1.2 N SGOT/AST (test code = AST) 33 I/U <34 N SGPT/ALT (test code = ALT) 25 U/L 10-49 N ALKALINE PHOSPHATASE (test code = ALKP) 93.0 U/L 46-116 N Spec Comments: \\[id number] 21:24:00* Test Item Value Reference Range Interpretation Comme nts PHOSPHOROUS (test code = PHOS) 3.3 mg/dL 2.4-5.1 N Spec Comments: \\B-TYPE NATRIURETIC [id number] 14:16:00* Test Item Value Reference Range Interpretation Comme nts B-TYPE NATRIURETIC PEPTIDE ( test code = BNP) 114 pg/mL <100 H PROTHROMBIN [id number] 13:53:00* Test Item Value Reference Range Interpretation Comme nts PROTHROMBIN TIME PATIENT (test code = PTP) 12.0 SECONDS 10.3-12.9 N INTERNATIONAL NORMAL RATIO (test code = INR) 1.02 INR UNIT 0.9-1.11 N The INR is usefu l only for monitoring anticoagulant therapy.It may be unreliable in the initial phase of antigoagulationand in unstable patients. Indication for Anticoagulation Recommended INR 1. Prevention of venous thomboembolism 2.0-3.0in high-risk patients; treatment of venousthrombosis and pulmonary embolism aftera course of heparin; prevention of systemicembolism in a variety of conditions, including atrial fibrillation and prothetic tissue heart valves, 2. Prosthetic mechanical heart valves; 2.5-3.5recurrent systemic embolism. THROMBOPLASTIN TIME [id number] 13:53:00* Test Item Value Reference Range Interpretation Comme nts THROMBOPLASTIN TIME PARTIAL (test code = PTT) 34.9 SECONDS 23.8-34.8 H INTERPRETATIVE DATA:Therapeutic range: Unfractionated heparin:55 - 80 seconds Argatroban:1.5 to 3 times the baseline PTT BASIC METABOLIC [id number] 13:39:00* Test Item Value Reference Range Interpretation Comme nts SODIUM (test code = NA) 134 mmol/L 136-145 L POTASSIUM (test code = K) 3.3 mmol/L 3.5-5.1 L CHLORIDE (test code = CL) 99 CARBON DIOXIDE (test code = CO2) 29 mmol/L 20-31 N GLUCOSE (test code = GLU) 91 ng/dL 74-106 N BLOOD UREA NITROGEN (test code = BUN) 5 mg/dL 9-23 L GLOMERULAR FILTRATION RATE (test code = GFR) >=60 max estimate mL/min >60 The Glomerular Filtration Rate is a calculated parameterbased on serum Creatinine, patient age and sex. GFR valuesless than 60 mL/min/1.73 square meters are indicative ofChronic Kidney Disease. Values less than 15 mL/min/1.73square meters indicate Kidney failure. The calculation forGFR is based on the CKD-EPI (2020) calculation. This formulais race indifferent and is the recommended formula for GFRby the National Kidney Foundation for Adults.The GFR will not calculate if the sex is unknown or if thepatient's age is <18 years. CREATININE (test code = CREAT) 0.80 mg/dL 0.70-1.30 N CALCIUM (test code = CA) 9.2 mg/dL 8.7-10.4 N COMPREHENSIVE METABOLIC [id number] 13:39:00* Test Item Value Reference Range Interpretation Comme nts TOTAL PROTEIN (test code = PROT) 6.5 mg/dL 5.7-8.2 N ALBUMIN (test code = ALB) 4.2 mg/dL 3.2-4.8 N BILIRUBIN TOTAL (test code = BILT) 0.6 mg/mL 0.3-1.2 N SGOT/AST (test code = AST) 34 I/U <34 N SGPT/ALT (test code = ALT) 24 U/L 10-49 N ALKALINE PHOSPHATASE (test c ode = ALKP) 98.0 U/L 46-116 N LIPID PROFILE (CORONARY RISK)2022-06-02 13:39:00* Test Item Value Reference Range Interpretation Comme nts TRIGLYCERIDES (test code = TRIG) 81 mg/dL <150 N CHOLESTEROL (test code = CHOL) 93 mg/dL <200 N HDL CHOLESTEROL (test code = HDL) 43 mg/dL <60 N LIPOPROTEIN LDL (test code = LDLC) 43 mg/dL <100 N INTERPRETATIVE D EDGARD:LDL Cholesterol: Reference RangesOptimal: <100 mg/dLNear Optimal: 100 -129 mg/dLBorderline High: 130 - 159 mg/dLHigh: 160 - 189 mg/dLVery High: = or > 190 mg/dL CORONARY RISK FACTOR (test code = RISK) 2.16 CHOL/HDL RISK MALE: 1/2 AVG 3.43 FEMALE: 1/2 AVG 3.27 AVG 4.97 AVG 4.44 2X AVG 9.55 2X AVG 7.05 3X AVG 23.39 3X AVG 11.04~~~~~~~~~~~~~~~~~~ ~~~~~~~~~~~~~~~~~~~~~~~ ~~~~~~~~~~~~~~~~~~~Marta onal Cholesterol Education (NCEP) Guidelines:~~~~~~~~~~~~ ~~~~~~~~~~~~~~~~~~~~~~~ ~~~~~~~~~~~~~~~~~~~~~~~ ~~ HDL Cholesterol<40mg/dL: HDL Cholesterol (Major risk factor for CHD)>60mg/dL: HDL Cholesterol (Negative risk factor for CHD)40-59mg/dL: Borderline Risk LDL Cholesterol<100mg/dL: Desirable LDL-C dziydeyrjbxui243-509eh/ dL: Borderline High Risk LDL-C wtpgkxuvztriy958-607rp/ dL: High risk LDL-C concentration HDL-LDL Cholesterol is affected by a number of factors suchas smoking, age and sex.~~~~~~~~~~~~~~~~~~~ ~~~~~~~~~~~~~~~~~~~~~~~ ~~~~~~~~~~~~~~~~~~ [id number] 13:39:00* Test Item Value Reference Range Interpretation Comme nts PHOSPHOROUS (test code = PHOS) 4.0 mg/dL 2.4-5.1 N CREATINE KINASE (CK)2022-06-02 13:39:00* Test Item Value Reference Range Interpretation Comme nts CREATINE KINASE (CK) (test code = CK) 41 U/L 34-171 N LACTIC DEHYDROGENASE(LDH)2022-06-02 13:39:00* Test Item Value Reference Range Interpretation Comme nts LACTIC DEHYDROGENASE(LDH) (t est code = LDH) 148 U/L 120-246 N THYROID STIMULATING [id number] 13:39:00* Test Item Value Reference Range Interpretation Comme nts THYROID STIMULATING HORMONE (test code = TSH) 2.76 mIU/mL 0.55-4.78 N CBC W/AUTO [id number] 13:38:00* Test Item Value Reference Range Interpretation Comme nts WHITE BLOOD CELL (test code = WBC) 6.4 x10 3/uL 4.8-10.8 N RED BLOOD CELL (test code = RBC) 3.05 x10 6/uL 4.70-6.10 L HEMOGLOBIN (test code = HGB) 11.1 g/dL 14.0-18.0 L HEMATOCRIT (test code = HCT) 32.6 % 42.0-52.0 L MEAN CELL VOLUME (test code = MCV) 106.9 fL 80.0-94.0 H MEAN CELL HGB (test code = MCH) 36.4 pg 27-31 H MEAN CELL HGB CONCENTRATION (test code = MCHC) 34.0 G/DL 33-36.5 N RED CELL DISTRIBUTION WIDTH (test code = RDW) 13.2 % 12.9-16.9 N PLATELET COUNT (test code = PLT) 223 x10 3/uL 150-440 N MEAN PLATELET VOLUME (test c ode = MPV) 8.7 fL 8.9-12.4 L NEUTROPHIL % (test code = NT%) 67.2 % 42.2-75.2 N LYMPHOCYTE % (test code = LY%) 16.4 % 20.5-51.1 L MONOCYTE % (test code = MO%) 14.2 % 1.7-9.3 H EOSINOPHIL % (test code = EO%) 1.3 % 0.0-7.0 N BASOPHIL % (test code = BA%) 0.3 % 0-2.5 N NEUTROPHIL # (test code = NT#) 4.28 x10 3/uL 1.80-7.70 N LYMPHOCYTE # (test code = LY#) 1.04 x10 3/uL 1.00-4.80 N MONOCYTE # (test code = MO#) 0.90 x10 3/uL 0.00-0.80 H EOSINOPHIL # (test code = EO#) 0.08 x10 3/uL 0.00-0.45 N BASOPHIL # (test code = BA#) 0.02 x10 3/uL 0.0-0.20 N [id number] 13:38:00* Test Item Value Reference Range Interpretation Comme nts TROPONIN-I (test code = TROPI) 127.9 pg/mL 38.73-80.22 HH Critical Value r eported toFirst Name:JEAN PAUL Last Name:BUBBAYULISSAZully READ BACK AND VERIFIEDby PAYALA, on 06/02/22, @ 1337. [id number] 13:35:00* Test Item Value Reference Range Interpretation Comme nts MAGNESIUM (test code = MAG) 1.7 mg/dL 1.6-2.6 N LACTIC [id number] 13:31:00* Test Item Value Reference Range Interpretation Comme nts LACTIC ACID (test code = LACT) 0.70 mmol/L 0.5-2.0 N - XR CHEST 1 [id number] 13:20:00 [facility] 1960 Sex: MPatient Name: KOTA MONTES Unit No: [id number] EXAMS: CPT CODE: [id number] XR CHEST 1 V 84143 CLINICAL HISTORY: SOB. LOCATION: A1 FINDINGS: Comparison is made with a previous study dated May 27, 2022. A portable AP view of the chest is dated 06/02/2022 1238 hours. The cardiomediastinal silhouette is within normal size limits. There are no infiltrates or effusions. No skeletal or soft tissue abnormalities. IMPRESSION: 1. No acute disease. at 1320 Reported and signed by: ELIAN ARORA M.D. CC: Ollie VAZQUEZ; Shonna Laughlin Technologist: Mylene Bustillo Time: DAP (Gy m2): Air Kerma (mGy): Trscr Dt/Tm: 06/02/2022 (1320) by:[email or web address] Printed Date/Time: 06/02/2022 (1323) Name: KOTA MONTES [facility] Phys: WRIJShonna Sparks APRN [address] : 1960 Age: 61 Sex: [place] [address] Loc: P.0216 1 Exam Date: 06/02/2022 Status:ADM IN PH: FAX: PAGE 1 Signed Report- XR ABDOMEN [id number] 08:21:00 [facility] 1960 Sex: MPatient Name: KOTA MONTES Unit No: [id number] EXAMS: CPT CODE: [id number] ABDOMEN 1V 46360 CLINICAL HISTORY: ileus. LOCATION: A1 FINDINGS: Comparison is made with a previous study dated May 27, 2022. A portable AP view of the chest is dated 06/02/2022 at 4:14 AM. The cardiomediastinal silhouette is within normal size limits. There is linear subsegmental atelectasis atthe right lower lung. The lungs are otherwise clear. There are no pleural effusions. No acute skeletal or soft tissue abnormalities. IMPRESSION: 1. There is mild linear subsegmental atelectasis at the right lower lung. No acute disease otherwise evident. at 0821 Reported and signed by: Elian Arora MD CC: Self Referred; Aydee Briceno MD; Mariela Naidu NP Technologist: Arsenio Awan; Ish Chou Fluoro Time: DAP (Gy m2): Air Kerma (mGy): Trscr Dt/Tm: 06/02/2022 (0821) by:[email or web address] Electronic Signature Date/Time: 06/02/2022 (0821)Orig Print D/T: S: 06/02/2022 (0824) [facility]: [facility] Phys: Mariela Daniel [address] : 1960 Age: 61 Sex: [place] [id number] Loc: NC.IC08 A Exam Date: 06/02/2022 Status: ADM IN PH: FAX: PAGE 1 Signed ReportCOMPREHENSIVE METABOLIC [id number] 05:20:00* Test Item Value Reference Range Interpretation Comme nts SODIUM (test code = NA) 136 mmol/L 135-145 N POTASSIUM (test code = K) 3.2 mmol/L 3.5-5.1 L CHLORIDE (test code = CL) 102 mmol/L 98-107 N CARBON DIOXIDE (test code = CO2) 28 mmol/L 21-32 N ANION GAP (test code = GAP) 9.2 2.0-16.0 N GLUCOSE (test code = GLU) 92 mg/dL 65-99 N BLOOD UREA NITROGEN (test code = BUN) 6 mg/dL 4-23 N GLOMERULAR FILTRATION RATE (test code = GFR) >=60 max estimate ml/min The Glomerular Filtration Rate is a calculated parameterbased on serum Creatinine, patient age and sex. GFR valuesless than 60 mL/min/1.73 square meters are indicative ofChronic Kidney Disease. Values less than 15 mL/min/1.73square meters indicate Kidney failure. The calculation forGFR is based on the CKD-EPI (2020) calculation. This formulais race indifferent and is the recommended formula for GFRby the National Kidney Foundation for Adults.The GFR will not calculate if the sex is unknown or if thepatient's age is <18 years. CREATININE (test code = CREAT) 0.7 mg/dL 0.6-1.5 N BUN/CREATININE RATIO (test code = BUN/CREA) 8.6 12.0-20.0 L TOTAL PROTEIN (test code = PROT) 6.4 g/dL 6.4-8.2 N ALBUMIN (test code = ALB) 3.0 g/dL 3.4-5.0 L CALCIUM (test code = CA) 9.4 mg/dL 8.5-10.1 N BILIRUBIN TOTAL (test code = BILT) 0.5 mg/dL 0.2-1.2 N Use of this assa y is not recommended for patients undergoingtreatment with Eltrombopag due to the potential for falselyelevated results. SGOT/AST (test code = AST) 29 U/L 15-37 N SGPT/ALT (test code = ALT) 28 U/L 6-50 N ALKALINE PHOSPHATASE (test code = ALKP) 95 U/L 45-117 N [id number] 05:20:00* Test Item Value Reference Range Interpretation Comme nts MAGNESIUM (test code = MAG) 1.9 mg/dL 1.8-2.4 N CBC W/AUTO [id number] 04:19:00* Test Item Value Reference Range Interpretation Comme nts WHITE BLOOD CELL (test code = WBC) 5.9 10 3/uL 4.5-11.0 N RED BLOOD CELL (test code = RBC) 2.92 10 6/uL 4.30-5.90 L HEMOGLOBIN (test code = HGB) 10.8 g/dL 14.0-18.0 L HEMATOCRIT (test code = HCT) 31.2 % 40.0-55.0 L MEAN CELL VOLUME (test code = MCV) 107 fL 81-102 H MEAN CELL HGB (test code = MCH) 37.0 pg 26.0-34.0 H MEAN CELL HGB CONCENTRATION (test code = MCHC) 34.6 g/dL 31.0-37.0 N RED CELL DISTRIBUTION WIDTH (test code = RDW) 13.2 % 11.6-14.4 N PLATELET COUNT (test code = PLT) 220 10 3/uL 150-400 N MEAN PLATELET VOLUME (test code = MPV) 9.3 fL 9.0-12.6 N NEUTROPHIL % (test code = NT%) 68.2 % 33.0-76.0 N IMMATURE GRANULOCYTE % (test code = IG%) 0.8 % 0.0-1.0 N LYMPHOCYTE % (test code = LY%) 14.4 % 14.0-56.4 N MONOCYTE % (test code = MO%) 14.6 % 0.0-12.9 H EOSINOPHIL % (test code = EO%) 1.5 % 0.0-7.0 N BASOPHIL % (test code = BA%) 0.5 % 0-2.0 N NUCLEATED RBC % (test code = NRBC%) 0.0 % 0-0.2 N NEUTROPHIL # (test code = NT#) 4.01 10 3/uL 1.5-7.0 N IMMATURE GRANULOCYTE # (test code = IG#) 0.050 x10 3/uL 0.000-0.100 N LYMPHOCYTE # (test code = LY#) 0.85 10 3/uL 1.50-4.00 L MONOCYTE # (test code = MO#) 0.86 10 3/uL 0.20-0.80 H EOSINOPHIL # (test code = EO#) 0.09 10 3/uL 0.0-0.5 N BASOPHIL # (test code = BA#) 0.03 10 3/uL 0.0-0.1 N NUCLEATED RBC # (test code = NRBC#) 0.000 10 3/uL 0.000-0.012 N - XR ABDOMEN [id number] 09:26:00 [facility] 1960 Sex: MPatient Name: KOTA MONTES Unit No: [id number] EXAMS: CPT CODE: [id number] XR ABDOMEN 1V 29552 W1 TIME OF STUDY: 06/01/2022 8:19 AM REASON FOR EXAM: DISTENDED ABD COMPARISON:CT one day prior Two-view views of the abdomen were obtained. Dilated and gas-filled cecum is againnoted. No abnormal calcifications are identified. Postoperative changes of a right pelvis are noted. IMPRESSION: 1. Relatively unchanged appearance of dilated and gas-filled cecum. at 0926 Reported and signed by: Cristiano Mosqueda MD CC: Self Referred; Aydee Briceno MD; Bridger Ayala MD Technologist: Keyur Neslon Fluoro Time: DAP (Gy m2): AirKerma (mGy): Trscr Dt/Tm: 06/01/2022 (0926) by:[email or web address] Electronic Signature Date/Time: 06/01/2022 (0926)Orig Print D/T: S: 06/01/2022 (0929) Name: [facility]ONT[facility] Phys: [place] [address] : 1960 Age: 61 Sex: [place] [id number] Loc: NC.IC08 A Exam Date: 06/01/2022 Status: ADM IN PH: FAX: PAGE 1 Signed ReportGLUBED 2022-06-01 07:22:00* Test Item Value Reference Range Interpretation Comme nts GLUBED (test code = GLUBED) 63 mg/dL 70-105 L Intravenous admi nistration of N-acetylcysteine which resultsin blood concentrations >5 mg/dL will cause overestimationof blood glucose results. Do not use during intravenousinfusion of N'acetylcysteine. COMPREHENSIVE METABOLIC [id number] 05:24:00* Test Item Value Reference Range Interpretation Comme nts SODIUM (test code = NA) 134 mmol/L 135-145 L POTASSIUM (test code = K) 3.5 mmol/L 3.5-5.1 N CHLORIDE (test code = CL) 99 mmol/L 98-107 N CARBON DIOXIDE (test code = CO2) 28 mmol/L 21-32 N ANION GAP (test code = GAP) 10.5 2.0-16.0 N GLUCOSE (test code = GLU) 109 mg/dL 65-99 H BLOOD UREA NITROGEN (test code = BUN) 5 mg/dL 4-23 N GLOMERULAR FILTRATION RATE (test code = GFR) >=60 max estimate ml/min The Glomerular Filtration Rate is a calculated parameterbased on serum Creatinine, patient age and sex. GFR valuesless than 60 mL/min/1.73 square meters are indicative ofChronic Kidney Disease. Values less than 15 mL/min/1.73square meters indicate Kidney failure. The calculation forGFR is based on the CKD-EPI (2020) calculation. This formulais race indifferent and is the recommended formula for GFRby the National Kidney Foundation for Adults.The GFR will not calculate if the sex is unknown or if thepatient's age is <18 years. CREATININE (test code = CREAT) 0.7 mg/dL 0.6-1.5 N BUN/CREATININE RATIO (test code = BUN/CREA) 7.1 12.0-20.0 L TOTAL PROTEIN (test code = PROT) 7.1 g/dL 6.4-8.2 N ALBUMIN (test code = ALB) 3.2 g/dL 3.4-5.0 L CALCIUM (test code = CA) 9.8 mg/dL 8.5-10.1 N BILIRUBIN TOTAL (test code = BILT) 0.8 mg/dL 0.2-1.2 N Use of this assa y is not recommended for patients undergoingtreatment with Eltrombopag due to the potential for falselyelevated results. SGOT/AST (test code = AST) 32 U/L 15-37 N SGPT/ALT (test code = ALT) 34 U/L 6-50 N ALKALINE PHOSPHATASE (test code = ALKP) 120 U/L 45-117 H CBC W/AUTO [id number] 05:19:00* Test Item Value Reference Range Interpretation Comme nts WHITE BLOOD CELL (test code = WBC) 8.1 10 3/uL 4.5-11.0 N RED BLOOD CELL (test code = RBC) 3.31 10 6/uL 4.30-5.90 L HEMOGLOBIN (test code = HGB) 12.4 g/dL 14.0-18.0 L HEMATOCRIT (test code = HCT) 34.8 % 40.0-55.0 L MEAN CELL VOLUME (test code = MCV) 105 fL 81-102 H MEAN CELL HGB (test code = MCH) 37.5 pg 26.0-34.0 H MEAN CELL HGB CONCENTRATION (test code = MCHC) 35.6 g/dL 31.0-37.0 N RED CELL DISTRIBUTION WIDTH (test code = RDW) 13.4 % 11.6-14.4 N PLATELET COUNT (test code = PLT) 208 10 3/uL 150-400 N MEAN PLATELET VOLUME (test code = MPV) 9.2 fL 9.0-12.6 N NEUTROPHIL % (test code = NT%) 81.8 % 33.0-76.0 H IMMATURE GRANULOCYTE % (test code = IG%) 0.6 % 0.0-1.0 N LYMPHOCYTE % (test code = LY%) 5.9 % 14.0-56.4 L MONOCYTE % (test code = MO%) 11.3 % 0.0-12.9 N EOSINOPHIL % (test code = EO%) 0.2 % 0.0-7.0 N BASOPHIL % (test code = BA%) 0.2 % 0-2.0 N NUCLEATED RBC % (test code = NRBC%) 0.0 % 0-0.2 N NEUTROPHIL # (test code = NT#) 6.64 10 3/uL 1.5-7.0 N IMMATURE GRANULOCYTE # (test code = IG#) 0.050 x10 3/uL 0.000-0.100 N LYMPHOCYTE # (test code = LY#) 0.48 10 3/uL 1.50-4.00 L MONOCYTE # (test code = MO#) 0.92 10 3/uL 0.20-0.80 H EOSINOPHIL # (test code = EO#) 0.02 10 3/uL 0.0-0.5 N BASOPHIL # (test code = BA#) 0.02 10 3/uL 0.0-0.1 N NUCLEATED RBC # (test code = NRBC#) 0.000 10 3/uL 0.000-0.012 N - CT ABD PELVIS [id number] 20:57:00 [facility] 1960 Sex: MPatient Name: KOTA MONTES Unit No: [id number] EXAMS: CPT CODE: [id number] ABD PELVIS W/CONT 86485 CLINICAL HISTORY: abd distention. LOCATION: A1 FINDINGS: Following the administration of 95 mL Isovue-300 intravenous contrast only, multislice axial images are obtained through the abdomen and pelvis during the venous phase. Coronal and sagittal reconstructed images areobtained and are used in interpretation. Creatinine is .7. GFR is greater than 60. The liver is enlarged measuring 17.7 cm craniocaudal at the midclavicular line. Low density of the liver suggests fatty infiltration but is not accurately evaluated with contrast. Small gallbladder calculi are noted. The pancreas and spleen are within normal limits. No abnormalities are noted of the adrenal glands. There are single tiny bilateral presumed renal cysts. No imaging follow-up. There is mild/moderatebilateral perinephric fat stranding as well as small amount of perirenal fluid bilaterally. Please correlate clinically to exclude acute inflammatory process. The intrapelvic viscera are within normal limits. There is moderate gaseous distention of the cecum with small air-fluid levels. There is mild gaseous distention of the transverse colon. Air is noted within the colon extending to the rectum. There is mild/moderate stool within the left colon extending to the rectum. There is mild fluid distention of multiple mid and distal small bowel loops. There is a small amount of free fluid adjacent to the liver. No significant adenopathy. No focal signs of inflammation are noted. There is hardware applied to the bilateral pubic rami and the right iliac bone. No acute skeletal or soft tissue abnormalities. IMPRESSION: 1. There is moderate gaseous distention of the cecum with small air-fluid levels as well as mild gaseous distention of the transverse colon. Air is noted within the colon exten ding to the rectum and there are multiple mildly fluid distended mid and distal small bowel loops. Ileus is suspected. Radiographic follow-up may be performed. 2. Hepatomegaly. 3. Small gallbladder calculi are noted. 4. There is a small amount of free fluid adjacent to the liver. 5. There is mild/moderate perinephric fat stranding bilaterally as well as small amount of perirenal fluid bilaterally. Please correlate clinically to exclude acute inflammatory process. This exam was performed according to our departmental dose-optimization program, which includes automated exposure control, adjustment of the mA and/or kV according to patient size and/or use of Name: KOTA MONTES [facility] Phys: [place] [address] [address] : 1960 Age: 61 Sex: [place] [id number] Loc: NC.IC08 A Exam Date: 05/31/2022 Status: ADM IN PH: FAX: PAGE 1 Signed Report (CONTINUED) Patient Name: KOTA MONTES Unit No: [id number] EXAMS: CPT CODE: [id number] CT ABD PELVIS W/CONT 00837 (Continued) iterative reconstruction technique at 2056 Reported and signed by: Elian Arora MD CC: Self Referred; Aydee Briceno MD Technologist: Elliot Bolton CTDI: 10.85 DLP: 626.07Trscr Dt/Tm: 05/31/2022 (2056) by:[email or web address] Electronic Signature Date/Time: 05/31/2022 (2056)Orig Print D/T: S: 05/31/2022 (2099) Name: KOTA MONTES SHINFOSTER [facility] Phys: [place] [address] [address] : 1960 Age: 61 Sex: [place] [id number] Loc: NC.IC08 A Exam Date: 05/31/2022 Status: ADM IN PH: FAX: PAGE 2 Signed Report- XR ABDOMEN [id number] 16:52:00 [facility] : 1960 Sex: MPatient Name: KOTA MONTES Unit No: [id number] EXAMS: CPT CODE: [id number] ABDOMEN 2V 36685 Abdomen one view Location: A1 HISTORY:PAIN AND DISTENTION Comparison:None available Findings: AP, supine view of the abdomen was obtained. There is abnormal dilation of bowel loop in the mid abdomen. There is gas within remaining colonic loops followed to level the rectum. There are gas distended loops of small bowel centrally. There is moderate gas distention of the stomachin the left upper quadrant. There is no free intraperitoneal air on limited supine view. No radiopacities are identified within the abdomen. There is no organomegaly. Skeletal structures are within normal limits. IMPRESSION: Abnormally dilated loop of colon In the mid abdomen possibly representing t ortuous sigmoid colon versus floating cecum. Proximal and distal bowel loops are gas-filled but grossly normal in caliber. Findings may indicate colonic ileus although partial obstruction is not excluded. Continued follow-up radiographs recommended. Otherwise consider CT of the abdomen and pelvis. at 1652 Reported and signed by: Catherine Orellana MD CC: Self Referred; Aydee Briceno MD Technologist: Martina Minaya Fluoro Time: DAP (Gy m2): Air Kerma (mGy): Trscr Dt/Tm: 05/31/2022 (1651) by:[email or web address] Electronic Signature Date/Time: 05/31/2022 (1 632)Orig Print D/T: S: 05/31/2022 (282) Name: K[facility]ONT[facility] Phys: [place] [address] : 1960 Age: 61 Sex: [place] [id number] Loc: OH.210 1 Exam Date: 05/31/2022 Status: ADM IN PH: FAX: PAGE 1 Signed ReportCOMPREHENSIVE METABOLIC [id number] 06:48:00* Test Item Value Reference Range Interpretation Comme nts SODIUM (test code = NA) 134 mmol/L 135-145 L POTASSIUM (test code = K) 3.7 mmol/L 3.5-5.1 N CHLORIDE (test code = CL) 100 mmol/L 98-107 N CARBON DIOXIDE (test code = CO2) 24 mmol/L 21-32 N ANION GAP (test code = GAP) 13.7 2.0-16.0 GLUCOSE (test code = GLU) 95 mg/dL 65-99 N BLOOD UREA NITROGEN (test code = BUN) 6 mg/dL 4-23 N GLOMERULAR FILTRATION RATE (test code = GFR) >=60 max estimate ml/min The Glomerular Filtration Rate is a calculated parameterbased on serum Creatinine, patient age and sex. GFR valuesless than 60 mL/min/1.73 square meters are indicative ofChronic Kidney Disease. Values less than 15 mL/min/1.73square meters indicate Kidney failure. The calculation forGFR is based on the CKD-EPI (2020) calculation. This formulais race indifferent and is the recommended formula for GFRby the National Kidney Foundation for Adults.The GFR will not calculate if the sex is unknown or if thepatient's age is <18 years. CREATININE (test code = CREAT) 0.7 mg/dL 0.6-1.5 N BUN/CREATININE RATIO (test code = BUN/CREA) 8.6 12.0-20.0 L TOTAL PROTEIN (test code = PROT) 6.7 g/dL 6.4-8.2 N ALBUMIN (test code = ALB) 3.1 g/dL 3.4-5.0 L CALCIUM (test code = CA) 9.0 mg/dL 8.5-10.1 N BILIRUBIN TOTAL (test code = BILT) 0.7 mg/dL 0.2-1.2 N Use of this assa y is not recommended for patients undergoingtreatment with Eltrombopag due to the potential for falselyelevated results. SGOT/AST (test code = AST) 35 U/L 15-37 N SGPT/ALT (test code = ALT) 33 U/L 6-50 N ALKALINE PHOSPHATASE (test code = ALKP) 104 U/L 45-117 N [id number] 06:48:00* Test Item Value Reference Range Interpretation Comme nts PHOSPHOROUS (test code = PHOS) 2.9 mg/dL 2.5-4.9 N [id number] 06:48:00* Test Item Value Reference Range Interpretation Comme nts MAGNESIUM (test code = MAG) 2.1 mg/dL 1.8-2.4 N CBC W/O [id number] 06:43:00* Test Item Value Reference Range Interpretation Comme nts WHITE BLOOD CELL (test code = WBC) 6.0 10 3/uL 4.5-11.0 N RED BLOOD CELL (test code = RBC) 3.15 10 6/uL 4.30-5.90 L HEMOGLOBIN (test code = HGB) 11.8 g/dL 14.0-18.0 L HEMATOCRIT (test code = HCT) 33.6 % 40.0-55.0 L MEAN CELL VOLUME (test code = MCV) 107 fL 81-102 H MEAN CELL HGB (test code = MCH) 37.5 pg 26.0-34.0 H MEAN CELL HGB CONCENTRATION (test code = MCHC) 35.1 g/dL 31.0-37.0 N RED CELL DISTRIBUTION WIDTH (test code = RDW) 13.2 % 11.6-14.4 N PLATELET COUNT (test code = PLT) 173 10 3/uL 150-400 N BASIC METABOLIC [id number] 17:09:00* Test Item Value Reference Range Interpretation Comme nts SODIUM (test code = NA) 131 mmol/L 135-145 L POTASSIUM (test code = K) 3.6 mmol/L 3.5-5.1 N CHLORIDE (test code = CL) 100 mmol/L 98-107 N CARBON DIOXIDE (test code = CO2) 28 mmol/L 21-32 N ANION GAP (test code = GAP) 6.6 2.0-16.0 GLUCOSE (test code = GLU) 107 mg/dL 65-99 H BLOOD UREA NITROGEN (test code = BUN) 6 mg/dL 4-23 N GLOMERULAR FILTRATION RATE (test code = GFR) >=60 max estimate ml/min The Glomerular Filtration Rate is a calculated parameterbased on serum Creatinine, patient age and sex. GFR valuesless than 60 mL/min/1.73 square meters are indicative ofChronic Kidney Disease. Values less than 15 mL/min/1.73square meters indicate Kidney failure. The calculation forGFR is based on the CKD-EPI (202) calculation. This formulais race indifferent and is the recommended formula for GFRby the National Kidney Foundation for Adults.The GFR will not calculate if the sex is unknown or if thepatient's age is <18 years. CREATININE (test code = CREAT) 0.8 mg/dL 0.6-1.5 N BUN/CREATININE RATIO (test code = BUN/CREA) 7.5 12.0-20.0 L CALCIUM (test code = CA) 8.7 mg/dL 8.5-10.1 N [id number] 17:09:00* Test Item Value Reference Range Interpretation Comme nts MAGNESIUM (test code = MAG) 2.4 mg/dL 1.8-2.4 N CBC W/AUTO [id number] 04:33:00* Test Item Value Reference Range Interpretation Comme nts WHITE BLOOD CELL (test code = WBC) 5.7 10 3/uL 4.5-11.0 N RED BLOOD CELL (test code = RBC) 3.04 10 6/uL 4.30-5.90 L HEMOGLOBIN (test code = HGB) 11.2 g/dL 14.0-18.0 L HEMATOCRIT (test code = HCT) 32.2 % 40.0-55.0 L MEAN CELL VOLUME (test code = MCV) 106 fL 81-102 H MEAN CELL HGB (test code = MCH) 36.8 pg 26.0-34.0 H MEAN CELL HGB CONCENTRATION (test code = MCHC) 34.8 g/dL 31.0-37.0 N RED CELL DISTRIBUTION WIDTH (test code = RDW) 13.0 % 11.6-14.4 N PLATELET COUNT (test code = PLT) 167 10 3/uL 150-400 N MEAN PLATELET VOLUME (test code = MPV) 9.0 fL 9.0-12.6 N NEUTROPHIL % (test code = NT%) 80.6 % 33.0-76.0 H IMMATURE GRANULOCYTE % (test code = IG%) 0.5 % 0.0-1.0 N LYMPHOCYTE % (test code = LY%) 11.8 % 14.0-56.4 L MONOCYTE % (test code = MO%) 5.5 % 0.0-12.9 N EOSINOPHIL % (test code = EO%) 1.2 % 0.0-7.0 N BASOPHIL % (test code = BA%) 0.4 % 0-2.0 N NUCLEATED RBC % (test code = NRBC%) 0.0 % 0-0.2 N NEUTROPHIL # (test code = NT#) 4.56 10 3/uL 1.5-7.0 N IMMATURE GRANULOCYTE # (test code = IG#) 0.030 x10 3/uL 0.000-0.100 N LYMPHOCYTE # (test code = LY#) 0.67 10 3/uL 1.50-4.00 L MONOCYTE # (test code = MO#) 0.31 10 3/uL 0.20-0.80 N EOSINOPHIL # (test code = EO#) 0.07 10 3/uL 0.0-0.5 N BASOPHIL # (test code = BA#) 0.02 10 3/uL 0.0-0.1 N NUCLEATED RBC # (test code = NRBC#) 0.000 10 3/uL 0.000-0.012 N COMPREHENSIVE METABOLIC [id number] 04:29:00* Test Item Value Reference Range Interpretation Comme nts SODIUM (test code = NA) 132 mmol/L 135-145 L POTASSIUM (test code = K) 3.1 mmol/L 3.5-5.1 L CHLORIDE (test code = CL) 103 mmol/L 98-107 N CARBON DIOXIDE (test code = CO2) 27 mmol/L 21-32 N ANION GAP (test code = GAP) 5.1 2.0-16.0 N GLUCOSE (test code = GLU) 133 mg/dL 65-99 H BLOOD UREA NITROGEN (test code = BUN) 7 mg/dL 4-23 N GLOMERULAR FILTRATION RATE (test code = GFR) >=60 max estimate ml/min The Glomerular Filtration Rate is a calculated parameterbased on serum Creatinine, patient age and sex. GFR valuesless than 60 mL/min/1.73 square meters are indicative ofChronic Kidney Disease. Values less than 15 mL/min/1.73square meters indicate Kidney failure. The calculation forGFR is based on the CKD-EPI (202) calculation. This formulais race indifferent and is the recommended formula for GFRby the National Kidney Foundation for Adults.The GFR will not calculate if the sex is unknown or if thepatient's age is <18 years. CREATININE (test code = CREAT) 0.7 mg/dL 0.6-1.5 N BUN/CREATININE RATIO (test code = BUN/CREA) 10.0 12.0-20.0 L TOTAL PROTEIN (test code = PROT) 6.1 g/dL 6.4-8.2 L ALBUMIN (test code = ALB) 2.8 g/dL 3.4-5.0 L CALCIUM (test code = CA) 8.8 mg/dL 8.5-10.1 N BILIRUBIN TOTAL (test code = BILT) 0.6 mg/dL 0.2-1.2 N Use of this assa y is not recommended for patients undergoingtreatment with Eltrombopag due to the potential for falselyelevated results. SGOT/AST (test code = AST) 39 U/L 15-37 H SGPT/ALT (test code = ALT) 36 U/L 6-50 N ALKALINE PHOSPHATASE (test code = ALKP) 92 U/L 45-117 N Spec Comments: Daily while on [id number] 04:29:00* Test Item Value Reference Range Interpretation Comme nts MAGNESIUM (test code = MAG) 1.5 mg/dL 1.8-2.4 L Spec Comments: Daily while on protocol- DUP EXTRACRANIAL [id number] 14:12:00 [facility] : 1960 Sex: MPatient Name: KOTA MONTES Unit No: [id number] EXAMS: CPT CODE: [id number] DUP EXTRACRANIAL SUSAN 05091 EXAMINATION: - DUP EXTRACRANIAL SUSAN COMPARISON: None HISTORY: Bypass workup LOCATION CODE: C3 TECHNIQUE: Grayscale, color Doppler and spectral waveform analysis of the carotid and vertebral arterial systems was performed. FINDINGS: RIGHT CAROTID SYSTEM: Mild intimal thickening is seen in the right common carotid artery. Moderate amount of predominantly hard plaque is seen in the right carotid bulb, propagating into the proximal right internal carotid artery. Volumetric analysis shows approximately 40% narrowing of the carotid bulb and approximately 50% narrowing of the proximal right internal carotid artery. Peak systolic velocity in the right internal carotid artery is 56 cm/s RIGHT ICA:CCA ratio: 1.2 LEFT CAROTID SYSTEM: Intimal thickening is seen in the left common carotid artery. Small amount of mixed hard and soft plaque is seen in the mid common carotid artery, without significant narrowing. Predominantly hard plaque is present in the left carotid bulb propagating into the proximal left internal carotid artery. Narrowing of approximately 40% is see n in the carotid bulb and of approximately 55% is seen in the left internal carotid artery proximally. Peak systolic velocity in left internal carotid artery is 46 cm/s LEFT ICA:CCA ratio: 0.6 VERTEBRAL ARTERIES: Antegrade flow is seen in both vertebral arteries ADJACENT SOFT TISSUES: Unremarkable IMPRESSION: Areas of intimal thickening and plaquing in both carotid systems as detailed above. There is approximately 50% narrowing of the proximal right internal carotid artery and 55% narrowing of the proximal left internal carotid artery For any reported stenosis, validated velocity measurementswith angiographic measurements, velocity criteria are extrapolated from diameter data as defined by the Society of radiologists in Ultrasound Consensus Conference Radiology 2003; 229; 340-346. Name:[facility] Phys: Edis Bello [address] : 1960 Age: 61 [place]: [place] [id number] Loc: NC.IC08 A Exam Date: 05/29/2022 Status: ADM IN PH: FAX: PAGE 1 Signed Report (CONTINUED) Patient Name: KOTA MONTES Unit No: [id number] EXAMS: CPT CODE: [id number] DUP EXTRACRANIAL SUSAN 52614 (Continued) at 1412 Reported and signed by: Tashi Haynes CC: Self Referred; Edis DOOLEY; Aydee Briceno MD Technologist: Bertha Daniel Probe: Trscr Dt/Tm: 05/29/2022 (1412) by:[email or web address] Electronic Signature Date/Time: 05/29/2022 (141)Orig Print D/T: S: 05/29/2022 (1416) Name: KOTA MONTES [facility] Phys: [place] [address] : 1960 Age: 61 Sex: [place] [address] Loc: NC.IC08 A Exam Date: 05/29/2022 Status: ADM IN PH: FAX: PAGE 2 Signed ReportCOMPREHENSIVE METABOLIC [id number] 05:03:00* Test Item Value Reference Range Interpretation Comme nts SODIUM (test code = NA) 132 mmol/L 135-145 L POTASSIUM (test code = K) 3.6 mmol/L 3.5-5.1 N CHLORIDE (test code = CL) 107 mmol/L 98-107 N CARBON DIOXIDE (test code = CO2) 23 mmol/L 21-32 N ANION GAP (test code = GAP) 5.6 2.0-16.0 N GLUCOSE (test code = GLU) 131 mg/dL 65-99 H BLOOD UREA NITROGEN (test code = BUN) 5 mg/dL 4-23 N GLOMERULAR FILTRATION RATE (test code = GFR) >=60 max estimate ml/min The Glomerular Filtration Rate is a calculated parameterbased on serum Creatinine, patient age and sex. GFR valuesless than 60 mL/min/1.73 square meters are indicative ofChronic Kidney Disease. Values less than 15 mL/min/1.73square meters indicate Kidney failure. The calculation forGFR is based on the CKD-EPI (202) calculation. This formulais race indifferent and is the recommended formula for GFRby the National Kidney Foundation for Adults.The GFR will not calculate if the sex is unknown or if thepatient's age is <18 years. CREATININE (test code = CREAT) 0.5 mg/dL 0.6-1.5 L BUN/CREATININE RATIO (test code = BUN/CREA) 10.0 12.0-20.0 L TOTAL PROTEIN (test code = PROT) 6.4 g/dL 6.4-8.2 N ALBUMIN (test code = ALB) 3.1 g/dL 3.4-5.0 L CALCIUM (test code = CA) 9.0 mg/dL 8.5-10.1 N BILIRUBIN TOTAL (test code = BILT) 0.8 mg/dL 0.2-1.2 N Use of this assa y is not recommended for patients undergoingtreatment with Eltrombopag due to the potential for falselyelevated results. SGOT/AST (test code = AST) 61 U/L 15-37 H SGPT/ALT (test code = ALT) 44 U/L 6-50 N ALKALINE PHOSPHATASE (test code = ALKP) 89 U/L 45-117 N Spec Comments: Daily while on [id number] 05:03:00* Test Item Value Reference Range Interpretation Comme nts PHOSPHOROUS (test code = PHOS) 2.3 mg/dL 2.5-4.9 L Spec Comments: Daily while on [id number] 05:03:00* Test Item Value Reference Range Interpretation Comme nts MAGNESIUM (test code = MAG) 1.7 mg/dL 1.8-2.4 L Spec Comments: Daily while on protocolCBC W/AUTO [id number] 04:49:00* Test Item Value Reference Range Interpretation Comme nts WHITE BLOOD CELL (test code = WBC) 5.3 10 3/uL 4.5-11.0 N RED BLOOD CELL (test code = RBC) 3.21 10 6/uL 4.30-5.90 L HEMOGLOBIN (test code = HGB) 11.7 g/dL 14.0-18.0 L HEMATOCRIT (test code = HCT) 34.0 % 40.0-55.0 L MEAN CELL VOLUME (test code = MCV) 106 fL 81-102 H MEAN CELL HGB (test code = MCH) 36.4 pg 26.0-34.0 H MEAN CELL HGB CONCENTRATION (test code = MCHC) 34.4 g/dL 31.0-37.0 N RED CELL DISTRIBUTION WIDTH (test code = RDW) 13.0 % 11.6-14.4 N PLATELET COUNT (test code = PLT) 173 10 3/uL 150-400 N MEAN PLATELET VOLUME (test code = MPV) 9.0 fL 9.0-12.6 N NEUTROPHIL % (test code = NT%) 83.8 % 33.0-76.0 H IMMATURE GRANULOCYTE % (test code = IG%) 0.8 % 0.0-1.0 N LYMPHOCYTE % (test code = LY%) 8.8 % 14.0-56.4 L MONOCYTE % (test code = MO%) 5.6 % 0.0-12.9 N EOSINOPHIL % (test code = EO%) 0.8 % 0.0-7.0 N BASOPHIL % (test code = BA%) 0.2 % 0-2.0 N NUCLEATED RBC % (test code = NRBC%) 0.0 % 0-0.2 N NEUTROPHIL # (test code = NT#) 4.46 10 3/uL 1.5-7.0 N IMMATURE GRANULOCYTE # (test code = IG#) 0.040 x10 3/uL 0.000-0.100 N LYMPHOCYTE # (test code = LY#) 0.47 10 3/uL 1.50-4.00 L MONOCYTE # (test code = MO#) 0.30 10 3/uL 0.20-0.80 N EOSINOPHIL # (test code = EO#) 0.04 10 3/uL 0.0-0.5 N BASOPHIL # (test code = BA#) 0.01 10 3/uL 0.0-0.1 N NUCLEATED RBC # (test code = NRBC#) 0.000 10 3/uL 0.000-0.012 N UR SODIUM [id number] 20:29:00* Test Item Value Reference Range Interpretation Comme nts UR SODIUM RANDOM (test code = REJI) 105 mmol/L NO REFERENCE V ALUES AVAILABLE FOR RANDOM URINE SODIUM UR POTASSIUM [id number] 20:29:00* Test Item Value Reference Range Interpretation Comme nts UR POTASSIUM RANDOM (test code = KU) 22 mmol/L NO REFERENCE RA NGE AVAILABLE FOR DINORA URINE POTASSIUM UR CHLORIDE [id number] 20:29:00* Test Item Value Reference Range Interpretation Comme nts UR CHLORIDE RANDOM (test code = CLU) 117 mmol/L NO REFERENCE R COLETTE AVAILABLE FOR RANDOM URINE CHLORIDE UR OSMOLALITY [id number] 20:29:00* Test Item Value Reference Range Interpretation Comme nts UR OSMOLALITY RANDOM (test c ode = OSMOU) 378 mOsm/kg 50-1200 N THROMBOPLASTIN TIME [id number] 04:29:00* Test Item Value Reference Range Interpretation Comme nts THROMBOPLASTIN TIME PARTIAL (test code = PTT) 81.6 SECONDS 25.1-36.5 HH Critical Value reported toFirst Name:ROSALINDA Last Name:ORMANOLO READ BACK AND VERIFIEDby [id number], on 05/28/22, @ 0429. COMPREHENSIVE METABOLIC [id number] 04:26:00* Test Item Value Reference Range Interpretation Comme nts SODIUM (test code = NA) 129 mmol/L 135-145 L POTASSIUM (test code = K) 3.6 mmol/L 3.5-5.1 N CHLORIDE (test code = CL) 100 mmol/L 98-107 N CARBON DIOXIDE (test code = CO2) 25 mmol/L 21-32 N ANION GAP (test code = GAP) 7.6 2.0-16.0 N GLUCOSE (test code = GLU) 110 mg/dL 65-99 H BLOOD UREA NITROGEN (test code = BUN) 10 mg/dL 4-23 N GLOMERULAR FILTRATION RATE (test code = GFR) >=60 max estimate ml/min The Glomerular Filtration Rate is a calculated parameterbased on serum Creatinine, patient age and sex. GFR valuesless than 60 mL/min/1.73 square meters are indicative ofChronic Kidney Disease. Values less than 15 mL/min/1.73square meters indicate Kidney failure. The calculation forGFR is based on the CKD-EPI (202) calculation. This formulais race indifferent and is the recommended formula for GFRby the National Kidney Foundation for Adults.The GFR will not calculate if the sex is unknown or if thepatient's age is <18 years. CREATININE (test code = CREAT) 0.7 mg/dL 0.6-1.5 N BUN/CREATININE RATIO (test code = BUN/CREA) 14.3 12.0-20.0 N TOTAL PROTEIN (test code = PROT) 6.4 g/dL 6.4-8.2 N ALBUMIN (test code = ALB) 3.3 g/dL 3.4-5.0 L CALCIUM (test code = CA) 8.8 mg/dL 8.5-10.1 N BILIRUBIN TOTAL (test code = BILT) 0.7 mg/dL 0.2-1.2 N Use of this assa y is not recommended for patients undergoingtreatment with Eltrombopag due to the potential for falselyelevated results. SGOT/AST (test code = AST) 68 U/L 15-37 H SGPT/ALT (test code = ALT) 50 U/L 6-50 N ALKALINE PHOSPHATASE (test code = ALKP) 116 U/L 45-117 N Spec Comments: Daily while on [id number] 04:26:00* Test Item Value Reference Range Interpretation Comme nts PHOSPHOROUS (test code = PHOS) 3.2 mg/dL 2.5-4.9 N Spec Comments: Daily while on [id number] 04:26:00* Test Item Value Reference Range Interpretation Comme nts MAGNESIUM (test code = MAG) 1.7 mg/dL 1.8-2.4 L Spec Comments: Daily while on protocolCBC W/AUTO [id number] 04:18:00* Test Item Value Reference Range Interpretation Comme nts WHITE BLOOD CELL (test code = WBC) 5.2 10 3/uL 4.5-11.0 N RED BLOOD CELL (test code = RBC) 3.23 10 6/uL 4.30-5.90 L HEMOGLOBIN (test code = HGB) 11.7 g/dL 14.0-18.0 L HEMATOCRIT (test code = HCT) 33.6 % 40.0-55.0 L MEAN CELL VOLUME (test code = MCV) 104 fL 81-102 H MEAN CELL HGB (test code = MCH) 36.2 pg 26.0-34.0 H MEAN CELL HGB CONCENTRATION (test code = MCHC) 34.8 g/dL 31.0-37.0 N RED CELL DISTRIBUTION WIDTH (test code = RDW) 13.2 % 11.6-14.4 N PLATELET COUNT (test code = PLT) 180 10 3/uL 150-400 N MEAN PLATELET VOLUME (test code = MPV) 8.9 fL 9.0-12.6 L NEUTROPHIL % (test code = NT%) 77.5 % 33.0-76.0 H IMMATURE GRANULOCYTE % (test code = IG%) 0.8 % 0.0-1.0 N LYMPHOCYTE % (test code = LY%) 14.5 % 14.0-56.4 N MONOCYTE % (test code = MO%) 6.0 % 0.0-12.9 N EOSINOPHIL % (test code = EO%) 0.8 % 0.0-7.0 N BASOPHIL % (test code = BA%) 0.4 % 0-2.0 N NUCLEATED RBC % (test code = NRBC%) 0.0 % 0-0.2 N NEUTROPHIL # (test code = NT#) 4.01 10 3/uL 1.5-7.0 N IMMATURE GRANULOCYTE # (test code = IG#) 0.040 x10 3/uL 0.000-0.100 N LYMPHOCYTE # (test code = LY#) 0.75 10 3/uL 1.50-4.00 L MONOCYTE # (test code = MO#) 0.31 10 3/uL 0.20-0.80 N EOSINOPHIL # (test code = EO#) 0.04 10 3/uL 0.0-0.5 N BASOPHIL # (test code = BA#) 0.02 10 3/uL 0.0-0.1 N NUCLEATED RBC # (test code = NRBC#) 0.000 10 3/uL 0.000-0.012 N THROMBOPLASTIN TIME [id number] 21:38:00* Test Item Value Reference Range Interpretation Comme nts THROMBOPLASTIN TIME PARTIAL (test code = PTT) 39.7 SECONDS 25.1-36.5 H BASIC METABOLIC [id number] 21:28:00* Test Item Value Reference Range Interpretation Comme nts SODIUM (test code = NA) 127 mmol/L 135-145 L POTASSIUM (test code = K) 3.4 mmol/L 3.5-5.1 L CHLORIDE (test code = CL) 95 mmol/L 98-107 L CARBON DIOXIDE (test code = CO2) 27 mmol/L 21-32 N ANION GAP (test code = GAP) 8.4 2.0-16.0 GLUCOSE (test code = GLU) 150 mg/dL 65-99 H BLOOD UREA NITROGEN (test code = BUN) 12 mg/dL 4-23 N GLOMERULAR FILTRATION RATE (test code = GFR) >=60 max estimate ml/min The Glomerular Filtration Rate is a calculated parameterbased on serum Creatinine, patient age and sex. GFR valuesless than 60 mL/min/1.73 square meters are indicative ofChronic Kidney Disease. Values less than 15 mL/min/1.73square meters indicate Kidney failure. The calculation forGFR is based on the CKD-EPI (202) calculation. This formulais race indifferent and is the recommended formula for GFRby the National Kidney Foundation for Adults.The GFR will not calculate if the sex is unknown or if thepatient's age is <18 years. CREATININE (test code = CREAT) 0.9 mg/dL 0.6-1.5 N BUN/CREATININE RATIO (test code = BUN/CREA) 13.3 12.0-20.0 N CALCIUM (test code = CA) 8.9 mg/dL 8.5-10.1 N UR OSMOLALITY [id number] 17:18:00* Test Item Value Reference Range Interpretation Comme nts UR OSMOLALITY RANDOM (test c ode = OSMOU) 395 mOsm/kg 50-1200 N UR SODIUM [id number] 17:16:00* Test Item Value Reference Range Interpretation Comme nts UR SODIUM RANDOM (test code = ERJI) 38 mmol/L NO REFERENCE V ALUES AVAILABLE FOR RANDOM URINE SODIUM URINALYSIS [id number] 16:05:00* Test Item Value Reference Range Interpretation Comme nts UA COLOR (test code = COLU) YELLOW YELLOW UA APPEARANCE (test code = APPU) CLEAR CLEAR UA GLUCOSE DIPSTICK (test code = DGLUU) 1+ NEGATIVE A UA BILIRUBIN DIPSTICK (test code = BILU) NEGATIVE NEGATIVE UA KETONE DIPSTICK (test cod e = KETU) TRACE NEGATIVE A UA SPECIFIC GRAVITY (test code = SGU) 1.015 1.005-1.025 N UA BLOOD DIPSTICK (test code = AMAURY) NEGATIVE NEGATIVE UA PH DIPSTICK (test code = GRACIE) 6.0 5.0-8.0 UA PROTEIN DIPSTICK (test code = PROU) NEGATIVE NEGATIVE UA UROBILINOGEN DIPSTICK (test code = URO) NEGATIVE EU/dL 0.1-0.2 UA NITRITE DIPSTICK (test code = JELENA) NEGATIVE NEGATIVE UA LEUKOCYTE ESTERASE DIPSTICK (test code = LEUU) NEGATIVE NEGATIVE UA MICROSCOPIC NEEDED? (test code = UAMICRO) NO NO UA WBC (test code = WBCU) 0-2 /hpf 0-3 UA RBC (test code = RBCU) 0-2 /hpf 0-3 UA BACTERIA (test code = BACU) NONE SEEN /HPF NEGATIVE UA SQUAMOUS CELLS (test code = SQU) RARE /HPF FEW UA MUCUS (test code = MUCU) OCCASIONAL /lpf FE W/TOTAL IRON BINDING [id number] 13:57:00* Test Item Value Reference Range Interpretation Comme nts IRON (test code = IRON) 203 ug/dL 35-150 H TOTAL IRON BINDING CAPACITY (test code = TIBC) 287 ug/dL 260-445 N IRON SATURATION (test code = FESAT) 71 % 11-46 H VITAMIN [id number] 13:57:00* Test Item Value Reference Range Interpretation Comme nts VITAMIN B12 (test code = VITB12) 385 pg/mL 254-1320 N FOLIC [id number] 13:57:00* Test Item Value Reference Range Interpretation Comme nts FOLIC ACID (test code = FOL) 5.40 ng/ml 3.10-17.50 N [id number] 13:57:00* Test Item Value Reference Range Interpretation Comme nts FERRITIN (test code = KALEIGH) 1309 ng/mL 8-388 H HGBA1C - GLYCOSYLATED [id number] 13:39:00* Test Item Value Reference Range Interpretation Comme nts GLYCOSYLATED HEMOGLOBIN (HA1 C) (test code = GLYHGB) 4.8 % 4.5-5.9 N LIPID PROFILE (CORONARY RISK)2022-05-27 13:22:00* Test Item Value Reference Range Interpretation Comme nts TRIGLYCERIDES (test code = TRIG) 55 mg/dL 0-149 N CHOLESTEROL (test code = CHOL) 178 mg/dL 0-200 N CHOLESTEROL/HDL RATIO (test code = CHOLHDL) 2 1-6 N HDL CHOLESTEROL (test code = HDL) 105 mg/dL 40-60 H According to the National Institutes of Health (NIH) and theNational Cholesterol Education Program (NCEP), an HDLcholesterol >or= 60mg/dL counts as a "negative" risk factor;its presence removes one risk factor from the total count. LIPOPROTEIN LDL (test code = LDLC) 67 mg/dL 0-100 N CREATINE KINASE (CK)2022-05-27 13:22:00* Test Item Value Reference Range Interpretation Comme nts CREATINE KINASE (CK) (test code = CK) 143 U/L 26-308 N THYROID STIMULATING [id number] 13:22:00* Test Item Value Reference Range Interpretation Comme nts THYROID STIMULATING HORMONE (test code = TSH) 1.27 mIU/mL 0.36-3.74 N [id number] 13:22:00* Test Item Value Reference Range Interpretation Comme nts CKMB (test code = CKMBT) 11.6 ng/mL 0.5-3.6 H TROP-I HIGH [id number] 13:22:00* Test Item Value Reference Range Interpretation Comme nts TROP-I HIGH SENSITIVITY (test code = TROPIHS) 2045 pg/mL 0-78 HH Critical Value reported toFirst Name:USHA Last Name:BETSYRESULTS READ BACK AND VERIFIEDby [id number], on 05/27/22, @ 1319.CAUTION: Units of the current test methodology (pg/mL) differ from the prior test methodology (ng/mL) by a factor of 1000. OSMOLALITY [id number] 13:06:00* Test Item Value Reference Range Interpretation Comme nts OSMOLALITY SERUM (test code = OSMO) 266 mOsm/kg 278-305 L TROP-I HIGH [id number] 12:09:00* Test Item Value Reference Range Interpretation Comme nts TROP-I HIGH SENSITIVITY (test code = TROPIHS) 1370 pg/mL 0-78 HH Critical Value reported toFirst Name:ERIK Last Name:RUIZ RESULTS READ BACK AND VERIFIEDby [id number], on 05/27/22, @ 1209.CAUTION: Units of the current test methodology (pg/mL) differ from the prior test methodology (ng/mL) by a factor of 1000. THROMBOPLASTIN TIME [id number] 11:43:00* Test Item Value Reference Range Interpretation Comme nts THROMBOPLASTIN TIME PARTIAL (test code = PTT) 30.6 SECONDS 25.1-36.5 N BASIC METABOLIC [id number] 10:55:00* Test Item Value Reference Range Interpretation Comme nts SODIUM (test code = NA) 124 mmol/L 135-145 L POTASSIUM (test code = K) 4.4 mmol/L 3.5-5.1 N CHLORIDE (test code = CL) 91 mmol/L 98-107 L CARBON DIOXIDE (test code = CO2) 25 mmol/L 21-32 N ANION GAP (test code = GAP) 12.4 2.0-16.0 N GLUCOSE (test code = GLU) 140 mg/dL 65-99 H BLOOD UREA NITROGEN (test code = BUN) 9 mg/dL 4-23 N GLOMERULAR FILTRATION RATE (test code = GFR) >=60 max estimate ml/min The Glomerular Filtration Rate is a calculated parameterbased on serum Creatinine, patient age and sex. GFR valuesless than 60 mL/min/1.73 square meters are indicative ofChronic Kidney Disease. Values less than 15 mL/min/1.73square meters indicate Kidney failure. The calculation forGFR is based on the CKD-EPI (2020) calculation. This formulais race indifferent and is the recommended formula for GFRby the National Kidney Foundation for Adults.The GFR will not calculate if the sex is unknown or if thepatient's age is <18 years. CREATININE (test code = CREAT) 0.9 mg/dL 0.6-1.5 N BUN/CREATININE RATIO (test code = BUN/CREA) 10.0 12.0-20.0 L CALCIUM (test code = CA) 9.5 mg/dL 8.5-10.1 N TROP-I HIGH [id number] 10:55:00* Test Item Value Reference Range Interpretation Comme nts TROP-I HIGH SENSITIVITY (test code = TROPIHS) 304 pg/mL 0-78 HH Critical Value reported toFirst Name:ERIK Last Name:JOSEPHRESTAMMY READ BACK AND VERIFIEDby [id number], on 05/27/22, @ 9679.CAUTION: Units of the current test methodology (pg/mL) differ from the prior test methodology (ng/mL) by a factor of 1000. CBC W/AUTO [id number] 10:20:00* Test Item Value Reference Range Interpretation Comme nts WHITE BLOOD CELL (test code = WBC) 5.3 10 3/uL 4.5-11.0 N RED BLOOD CELL (test code = RBC) 3.49 10 6/uL 4.30-5.90 L HEMOGLOBIN (test code = HGB) 12.9 g/dL 14.0-18.0 L HEMATOCRIT (test code = HCT) 36.0 % 40.0-55.0 L MEAN CELL VOLUME (test code = MCV) 103 fL 81-102 H MEAN CELL HGB (test code = MCH) 37.0 pg 26.0-34.0 H MEAN CELL HGB CONCENTRATION (test code = MCHC) 35.8 g/dL 31.0-37.0 N RED CELL DISTRIBUTION WIDTH (test code = RDW) 13.1 % 11.6-14.4 N PLATELET COUNT (test code = PLT) 230 10 3/uL 150-400 N MEAN PLATELET VOLUME (test code = MPV) 8.7 fL 9.0-12.6 L NEUTROPHIL % (test code = NT%) 84.7 % 33.0-76.0 H IMMATURE GRANULOCYTE % (test code = IG%) 0.6 % 0.0-1.0 N LYMPHOCYTE % (test code = LY%) 9.7 % 14.0-56.4 L MONOCYTE % (test code = MO%) 4.8 % 0.0-12.9 N EOSINOPHIL % (test code = EO%) 0.0 % 0.0-7.0 N BASOPHIL % (test code = BA%) 0.2 % 0-2.0 N NUCLEATED RBC % (test code = NRBC%) 0.0 % 0-0.2 N NEUTROPHIL # (test code = NT#) 4.45 10 3/uL 1.5-7.0 N IMMATURE GRANULOCYTE # (test code = IG#) 0.030 x10 3/uL 0.000-0.100 N LYMPHOCYTE # (test code = LY#) 0.51 10 3/uL 1.50-4.00 L MONOCYTE # (test code = MO#) 0.25 10 3/uL 0.20-0.80 N EOSINOPHIL # (test code = EO#) 0.00 10 3/uL 0.0-0.5 N BASOPHIL # (test code = BA#) 0.01 10 3/uL 0.0-0.1 N NUCLEATED RBC # (test code = NRBC#) 0.000 10 3/uL 0.000-0.012 N - XR CHEST 1 [id number] 09:51:00 [facility] : 1960 Sex: MPatient Name: KOTA MONTES Unit No: [id number] EXAMS: CPT CODE: [id number] CHEST 1 V [id number] Chest one view AP 05/27/2022 9:51 AM CLINICAL HISTORY: Chest pain COMPARISON: None available LOCATION: W1 FINDINGS: The lungs are clear. Cardiomediastinal contours are within normal limits. The central pulmonary vasculature is not engorged. IMPRESSION: Unremarkable frontal chest radiograph. at 0951 Reported and signed by: Neema Simmons CC: GENERIC FOR EDM EDDOC; Mylene Prescott NP Technologist: Kenyon Bustillo Time: DAP (Gy m2): Air Kerma (mGy): Trscr Dt/Tm: 05/27/2022 (0951) by:[email or web address] Electronic Signature Date/Time: 05/27/2022 (950)Orig Print D/T: S: 05/27/2022 (0955) Name: KOTA MONTESHCA [facility] João Phys: [place] [address] : 1960 Age: 61 Sex: [place] [address] Loc: NC.ERS Exam Date: 05/27/2022 Status: PRE ER PH: FAX: PAGE 1 Signed ReportTROP-I HIGH [id number] 01:34:00* Test Item Value Reference Range Interpretation Comme nts TROP-I HIGH SENSITIVITY (test code = TROPIHS) 17 pg/mL 0-78 N CAUTION: U nits of the current test methodology (pg/mL) differ from the prior test methodology (ng/mL) by a factor of 1000. COMPREHENSIVE METABOLIC [id number] 01:34:00* Test Item Value Reference Range Interpretation Comme nts SODIUM (test code = NA) 134 mmol/L 135-145 L POTASSIUM (test code = K) 3.6 mmol/L 3.5-5.1 N CHLORIDE (test code = CL) 98 mmol/L 98-107 N CARBON DIOXIDE (test code = CO2) 22 mmol/L 21-32 N ANION GAP (test code = GAP) 17.6 2.0-16.0 H GLUCOSE (test code = GLU) 106 mg/dL 65-99 H BLOOD UREA NITROGEN (test code = BUN) 17 mg/dL 4-23 N GLOMERULAR FILTRATION RATE (test code = GFR) >=60 max estimate ml/min The estimated glomer ular filtration rate is computed usingpatient race, age (>18), sex, and serum creatinine. If anyof the needed data elements are missing the Laboratory cannot compute an estimation of the glomerular filtration rate. CREATININE (test code = CREAT) 1.0 mg/dL 0.6-1.5 N BUN/CREATININE RATIO (test code = BUN/CREA) 17.0 12.0-20.0 N TOTAL PROTEIN (test code = PROT) 7.0 g/dL 6.4-8.2 N ALBUMIN (test code = ALB) 3.5 g/dL 3.4-5.0 N CALCIUM (test code = CA) 8.7 mg/dL 8.5-10.1 N BILIRUBIN TOTAL (test code = BILT) 0.2 mg/dL 0.2-1.2 N Use of this assa y is not recommended for patients undergoingtreatment with Eltrombopag due to the potential for falselyelevated results. SGOT/AST (test code = AST) 35 U/L 15-37 N SGPT/ALT (test code = ALT) 49 U/L 6-50 N ALKALINE PHOSPHATASE (test code = ALKP) 81 U/L 45-117 N [id number] 01:34:00* Test Item Value Reference Range Interpretation Comme nts MAGNESIUM (test code = MAG) 1.9 mg/dL 1.8-2.4 N CBC W/AUTO [id number] 01:05:00* Test Item Value Reference Range Interpretation Comme nts WHITE BLOOD CELL (test code = WBC) 6.8 10 3/uL 4.5-11.0 N RED BLOOD CELL (test code = RBC) 4.12 10 6/uL 4.30-5.90 L HEMOGLOBIN (test code = HGB) 15.0 g/dL 14.0-18.0 N HEMATOCRIT (test code = HCT) 42.5 % 40.0-55.0 N MEAN CELL VOLUME (test code = MCV) 103 fL 81-102 H MEAN CELL HGB (test code = MCH) 36.4 pg 26.0-34.0 H MEAN CELL HGB CONCENTRATION (test code = MCHC) 35.3 g/dL 31.0-37.0 N RED CELL DISTRIBUTION WIDTH (test code = RDW) 12.6 % 11.6-14.4 N PLATELET COUNT (test code = PLT) 218 10 3/uL 150-400 N MEAN PLATELET VOLUME (test code = MPV) 8.9 fL 9.0-12.6 L NEUTROPHIL % (test code = NT%) 63.1 % 33.0-76.0 N IMMATURE GRANULOCYTE % (test code = IG%) 0.4 % 0.0-1.0 N LYMPHOCYTE % (test code = LY%) 24.4 % 14.0-56.4 N MONOCYTE % (test code = MO%) 9.9 % 0.0-12.9 N EOSINOPHIL % (test code = EO%) 1.6 % 0.0-7.0 N BASOPHIL % (test code = BA%) 0.6 % 0-2.0 N NUCLEATED RBC % (test code = NRBC%) 0.0 % 0-0.2 N NEUTROPHIL # (test code = NT#) 4.31 10 3/uL 1.5-7.0 N IMMATURE GRANULOCYTE # (test code = IG#) 0.030 x10 3/uL 0.000-0.100 N LYMPHOCYTE # (test code = LY#) 1.67 10 3/uL 1.50-4.00 N MONOCYTE # (test code = MO#) 0.68 10 3/uL 0.20-0.80 N EOSINOPHIL # (test code = EO#) 0.11 10 3/uL 0.0-0.5 N BASOPHIL # (test code = BA#) 0.04 10 3/uL 0.0-0.1 N Notes Date/Time Note Provider Source 2024-07-04 09:31:00 [facility] ([facility]) Cardiology Consultation REPORT #: [id number] REPORT STATUS: Signed DATE: 07/04/24 TIME: 930 PATIENT: KOTA MONTES UNIT #: [id number] ROOM #: NC.209 BED: 1 : 61 AGE: 63 SEX: M ATTEND: Josette Ley DO ADM AUTHOR: Olman Mahmood MD ATTENTION *EDITS and/or ADDENDA must be made in Patient Keeper for this note. * * Edits and ammendments created in [employer] are not visible * * in Patient Keeper or the legal medical record ([facility]). 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 -- ALLERGIES/HOME MEDS -- Modifications made in this section do not update Allergy and Home Medication List HOME MEDICATIONS - Amiodarone Tab (Cordarone Tab) (PO - DAILY - 200 MG) - Apixaban Tab (Eliquis Tab) (PO - BID - 5 MG) - Bumetanide Tab (Bumex Tab) (PO - BID - 1 MG) - Folic Acid Tab (Folvite Tab) (PO - DAILY - 1 MG) - Metoprolol Succinate XL Tab (Toprol XL Tab) (PO - DAILY - 25 MG) - Potassium Chlor Tab.ER (K Dur Tab) (PO - DAILY - 20 MEQ) - traZODone Tab (Desyrel Tab) (PO - BEDTIME - 100 MG) -- SUBJECTIVE -- REVIEW OF SYSTEMS: General: Negative for fever, malaise, fatigue. Eyes: Negative for blurry vision. No diplopia. Ears/Nose/Throat: Negative for sore throat. No otalgia. No rhinorrhea. Breast: Negative for change in shape, swelling, masses, nipple discharge, pain, skin changes. Respiratory: Negative for dyspnea or wheeze. No cough. Cardiovascular: as per HPI Gastrointestinal: Negative for abdominal pain or nausea. No emesis. No diarrhea. Genitourinary Negative for dysuria, frequency, or urgency. No gross hematuria. Musculoskeletal: Negative for joint stiffness, pain, or arthralgias. Skin: Negative for rashes. No pruritus. Neurological: Negative for headache. No vertigo. Denies paresthesias. Psychiatric: Negative for specific complaints. Endocrine: Negative for cold intolerance, heat intolerance, polyphagia, polydipsia, polyuria, weight change, fatigue. Hematalogic / Lymphoreticular: Negative for excessive bleeding, unusual masses. Allergic /Immunologic: Negative for heat/cold intolerance, polydipsia, or polyuria. -- EXAM -- EXAM: General: GEN NAD Head NC / AT Neck no JVD Chest no deformities Heart RRR Abd ND Neuro intact Extremities WWP, no edema Skin no rashes at 1727 ATTENTION *EDITS and/or ADDENDA must be made in Patient Keeper for this note. * * Edits and ammendments created in [facility] are not visible * * in Patient Keeper or the legal medical record ([facility]). * RPT #: [id number] END OF REPORT [facility] 2024-07-04 08:50:00 [facility] ([facility]) Med Order Sheet REPORT #: [id number] REPORT STATUS: Signed DATE: 07/04/24 TIME: 0850 PATIENT: KOTA MONTESO UNIT #: [id number] ROOM #: NC.209 BED: 1 : 61 AGE: 63 SEX: M ATTEND: Josette Ley DO ADM AUTHOR: Huey Dickinson MD ATTENTION *EDITS and/or ADDENDA must be made in Patient Keeper for this note. * * Edits and ammendments created in [facility] are not visible * * in Patient Keeper or the legal medical record ([facility]). * Discharge Medication Reconciliation DISCHARGE MEDICATION LIST Amiodarone Tab (Cordarone Tab) Dose: 200 MG PO DAILY Apixaban Tab (Eliquis Tab) Dose: 5 MG PO BID Bumetanide Tab (Bumex Tab) Dose: 1 MG PO BID Folic Acid Tab (Folvite Tab) Dose: 1 MG PO DAILY Metoprolol Succinate XL Tab (Toprol XL Tab) Dose: 25 MG PO DAILY Potassium Chlor Tab.ER (K Dur Tab) Dose: 20 MEQ PO DAILY traZODone Tab (Desyrel Tab) Dose: 100 MG PO BEDTIME Atorvastatin Tab (Lipitor Tab) Dose: 80MG PO DAILY, Disp: 30 tablet, Refills: 2 Hosp: ALPRAZolam Tab (Xanax Tab) Dose: 0.5 MG PO Q12H PRN agitation or anxiety, Disp: 60 tablet, Refills: 0 STOPPED HOSPITAL MEDICATIONS Dc'd: Acetaminophen Tab (Tylenol Tab) 650MG PO Q4H PRN pain 1-3/temp > 100.5/headacheDc'd: Acetaminophen/Codeine #3 Tab (Tylenol #3 Tab) 1TAB PO Q4H PRN pain scale 4-6Dc'd: Albuterol/Ipratrop Neb Soln (Duoneb Neb Soln) 3ML NEB RTQ6H PRN wheezing / shortness of breathDc'd: diphenhydrAMINE Cap (Benadryl Cap) 25MG PO Q6H PRN itchingDc'd: hydrALAZINE Inj (Apresoline Inj) 10MG IV Q6H PRN sbp greater than 180Dc'd: LORazepam Tab (Ativan Tab) 1MG PO Q12H PRN anxietyDc'd: morphine Inj (morphine Inj) 2MG IV Q3H PRN pain scale 7-10 (use 1st) at 0850 ATTENTION *EDITS and/or ADDENDA must be made in Patient Keeper for this note. * * Edits and ammendments created in [facility] are not visible * * in Patient Keeper or the legal medical record ([facility]). * [facility] #: [id number] END OF REPORT [facility] 2024-07-04 08:49:00 [facility] ([facility]) Internal Med. D/C Summary REPORT #: [id number] REPORT STATUS: Signed DATE: 07/04/24 TIME: 848 PATIENT: KOTA MONTES UNIT #: [id number] ROOM #: NC.209 BED: 1 : 61 AGE: 63 SEX: M ATTEND: Josette Ley DO ADM AUTHOR: Huey Dickinson MD ATTENTION *EDITS and/or ADDENDA must be made in Patient Keeper for this note. * * Edits and ammendments created in [facility] are not visible * * in Patient Keeper or the legal medical record ([facility]). * Note Date: 07/04/24 08:49 -- PROBLEMS/PROCEDURES -- ADMISSION DATE: 07/03/2024 ADMITTING DIAGNOSIS: - Acute on chronic systolic (congestive) heart failure - Acute respiratory failure with hypoxia - AICD problem - Atrial fibrillation with RVR - CAD (coronary artery disease) - Full code status - Hyperlipidemia - Hypertension - ICD (implantable cardioverter-defibrillator) malfunction - Ischemic cardiomyopathy - Left bundle-branch block, unspecified - Medical non-compliance - On deep vein thrombosis (DVT) prophylaxis - Presence of automatic (implantable) cardiac defibrillator - Tobacco abuse - Unspecified atrial fibrillation - Acute hypoxic respiratory failure - Acute kidney injury - Anxiety disorder, unspecified - Heart failure, unspecified - Hypertensive heart disease with heart failure - Hyponatremia - Acute blood loss anemia - Acute CHF - Acute decompensated heart failure - Acute kidney failure, unspecified - Acute posthemorrhagic anemia - Acute respiratory failure with hypercapnia - Acute respiratory failure with hypoxia and hypercapnia - Anemia - Atherosclerotic heart disease of [place] coronary artery without angina pectoris - Cardiogenic shock - Flash pulmonary edema - Presence of aortocoronary bypass graft - Rheumatic disorders of both mitral and aortic valves - Systolic dysfunction with acute on chronic heart failure - Afib - CHF (congestive heart failure) - Encounter for screening for COVID-19 - Headache - Pneumonia - Pneumonia, unspecified organism - Atrial fibrillation with RVR - CAD (coronary artery disease) - CHF (congestive heart failure) - Presence of automatic (implantable) cardiac defibrillator DISCHARGE DATE: 07/04/24 DISCHARGE DIAGNOSIS: - Acute on chronic systolic (congestive) heart failure - Acute respiratory failure with hypoxia - AICD problem - Atrial fibrillation with RVR - CAD (coronary artery disease) - Full code status - Hyperlipidemia - Hypertension - ICD (implantable cardioverter-defibrillator) malfunction - Ischemic cardiomyopathy - Left bundle-branch block, unspecified - Medical non-compliance - On deep vein thrombosis (DVT) prophylaxis - Presence of automatic (implantable) cardiac defibrillator - Tobacco abuse - Unspecified atrial fibrillation - Acute hypoxic respiratory failure - Acute kidney injury - Anxiety disorder, unspecified - Heart failure, unspecified - Hypertensive heart disease with heart failure - Hyponatremia - Afib - CHF (congestive heart failure) - Encounter for screening for COVID-19 - Headache - Pneumonia - Pneumonia, unspecified organism - Atrial fibrillation with RVR - CAD (coronary artery disease) - CHF (congestive heart failure) - Presence of automatic (implantable) cardiac defibrillator -- HOSPITAL COURSE -- HOSPITAL COURSE: HPI: 63-year-old male past medical history significant coronary artery disease status post AICD, anxiety, former tobacco use, anxiety presenting to ED with complaints of ongoing palpitations that began this morning in addition to feeling very anxious and 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 He notes associated chest discomfort. He denies any fever chills nausea or vomiting. HOSPITAL COURSE: 1. Atrial fibrillation with RVR A/P: Presented with palpitations and noted to have A-fib with RVR with heart rate in the 130s Patient reports compliance with his medications Noted he has been under undue amount of stress he does have underlying anxiety EKG shows nonspecific ST T changes. No STEMI. Normal axis Chest x-ray shows vascular congestion with mild interstitial prominence and interstitial pulmonary edema is present Received Cardizem 20 mg IV x 2 in ED Continue eliquis On amiodarone and metoprolol. Cont telemetry as pt at risk of prolonged QTC with use of amiodarone with azithromycin 2. CHF (congestive heart failure) A/P: not in exacerbation. 3. Presence of automatic (implantable) cardiac defibrillator 4. CAD (coronary artery disease) A/P: Continue home meds -- DISCHARGE MEDICATIONS -- ALLERGIES - No Known Allergies ( UNKNOWN - Allergy ) DISCHARGE MEDICATIONS - ALPRAZolam Tab (Xanax Tab) 0.5 MG PO Q12H PRN agitation or anxiety, Disp: 60 tablet, Refills: 0 - Amiodarone Tab (Cordarone Tab) 200 MG PO DAILY - Apixaban Tab (Eliquis Tab) 5 MG PO BID - Atorvastatin Tab (Lipitor Tab) 80 MG PO BEDTIME - Atorvastatin Tab (Lipitor Tab) 80MG PO DAILY, Disp: 30 tablet, Refills: 2 - Bumetanide Tab (Bumex Tab) 1 MG PO BID - Folic Acid Tab (Folvite Tab) 1 MG PO DAILY - Methocarbamol Tab (Robaxin Tab) 750 MG PO TID - Metoprolol Succinate XL Tab (Toprol XL Tab) 25 MG PO DAILY - Metoprolol Tartrate Tab (Lopressor Tab) 12.5 MG PO Q12HR - Potassium Chlor Tab.ER (K Dur Tab) 20 MEQ PO DAILY - Thiamine Tab (Vitamin B-1 Tab) 100 MG PO DAILY - traZODone Tab (Desyrel Tab) 100 MG PO BEDTIME -- DISCHARGE INSTRUCTIONS -- PENDING LABS/TESTS AT DISCHARGE PENDING LABS: none PENDING TESTS: none Admission Orders Discharge Follow Up In 1-2 weeks; In 1-2 weeks; KURTIS LYNCH MD; In 1-2 weeks; In 1-2 weeks; In 1-2 weeks; PEYMANR:Kurtis Lynch MD Consulting provider 1:: ANGLE:Kurtis Lynch MD Consulting provider 1:: . Consult follow up timeframe:: In 1-2 weeks PK Discharge Orders DC Order - No eCQM 2020.2 Discharge w/Instructions PATVI Discharge order:: Yes Discharge to:: Home/Self Care Diet:: Resume Home Diet/Feeds Cardiac Activity:: Resume Normal Activity As Tolerated PCP:: [email or web address]:Huey Dickinson MD PCP follow up timeframe:: In 1-2 weeks Additional Discharge Routines:: PCP Follow-Up Emergency instructions: The patient was instructed to present to the nearest Emergency Department or call 911 should their symptoms return or worsen. ADDTIONAL DISCHARGE INSTRUCTIONS: Emergency Instructions: The patient was instructed to present to the nearest Emergency Department or call 911 should their symptoms return or worsen.; -- OBJECTIVE -- VITALS (07/03 08:49 - 07/04 08:49): Respiratory rate: 9 (9 - 22) Blood pressure: 132/75 (104/55 - 157/101) Temperature F: 98.2 Blood pressure source: Monitor Temperature source: Oral Temperature C: 36.6 (36.5 - 36.9) Pulse Rate: 93 (89 - 138) I/OS (07/03 07:00-07/04 07:00): Net1,000 Intake1,000 Number of continent voids:3 Oral ml:1,000 EXAM: Other: GEN: Patient is awake, alert, oriented x 3 HEENT: NCAT, PERRLA, EOMI, MMM NECK: Supple, Trachea midline, No JVD LUNGS: CTAB, No wheezes, rhonchi, or rales CV: Irregularly irregular tachycardia, N s1/s2. No murmurs or gallops GI: S/NT/ND/ + BS. No organomegaly EXT: AROM. No cyanosis, clubbing, or edema NEURO: No focal deficits PULSES: 2+ pulses B/L upper and lower extremities SKIN: Warm, dry. No rash Psych: No agitation. Normal appropriate mood -- DATA -- ALLERGIES LAB RESULTS GLU BED (07/04/24 07:08) GLUBED 110 H -- ATTESTATION -- Time Spent on Patient Care DIRECT 10 minutes COUNSELING 10 minutes COORDINATION OF CARE 10 minutes DISCHARGE PLANNING 15 minutes > 50% of time spent on counseling/care coordination Care Activities / Care Coordination I have reviewed the history and repeated the carias elements I have seen and examined this patient I have reviewed the progress in the clinical course since the last examination I have discussed the patient's condition with other members of the care team at 2239 ATTENTION *EDITS and/or ADDENDA must be made in Patient Keeper for this note. * * Edits and ammendments created in [employer] are not visible * * in Patient Keeper or the legal medical record (HPF). * [facility] #: [id number] END OF REPORT [facility] 2024-07-03 14:05:00 [facility] ([facility]) [facility] REPORT #: [id number] REPORT STATUS: Signed DATE: 07/03/24 TIME: 1404 PATIENT: KOTA MONTES UNIT #: [id number] ROOM #: NC.ERIMCBED: 5 : 61 AGE: 63 SEX: M ATTEND: Josette Ley DO ADM AUTHOR: Josette Ley DO ATTENTION *EDITS and/or ADDENDA must be made in Patient Keeper for this note. * * Edits and ammendments created in [employer] are not visible * * in Patient Keeper or the legal medical record (HPF). 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 He notes associated chest discomfort. He denies any fever chills nausea or vomiting. PAST MEDICAL / SURGICAL HISTORY: PAST MEDICAL HISTORY: - Acute on chronic systolic (congestive) heart failure - Acute respiratory failure with hypoxia - AICD problem - Atrial fibrillation with RVR - CAD (coronary artery disease) - Full code status - Hyperlipidemia - Hypertension - ICD (implantable cardioverter-defibrillator) malfunction - Ischemic cardiomyopathy - Left bundle-branch block, unspecified - Medical non-compliance - On deep vein thrombosis (DVT) prophylaxis - Presence of automatic (implantable) cardiac defibrillator - Tobacco abuse - Unspecified atrial fibrillation - Acute hypoxic respiratory failure - Acute kidney injury - Anxiety disorder, unspecified - Heart failure, unspecified - Hypertensive heart disease with heart failure - Hyponatremia - Acute blood loss anemia - Acute CHF - Acute decompensated heart failure - Acute kidney failure, unspecified - Acute posthemorrhagic anemia - Acute respiratory failure with hypercapnia - Acute respiratory failure with hypoxia and hypercapnia - Anemia - Atherosclerotic heart disease of [place] coronary artery without angina pectoris - Cardiogenic shock - Flash pulmonary edema - Presence of aortocoronary bypass graft - Rheumatic disorders of both mitral and aortic valves - Systolic dysfunction with acute on chronic heart failure - Afib - CHF (congestive heart failure) - Encounter for screening for COVID-19 - Headache - Pneumonia - Pneumonia, unspecified organism PAST MEDICAL HISTORY: CAD s/p 2v CAB (06/25) and PCI (, 06/24, 12/24, 07/25) Ischemic cardiomyopathy (EF 25-29%) HTN HLD h/o ETOH abuse tobacco abuse anxiety/depression medical non-compliance PAST SURGICAL HISTORY: CABG x2v (June) ICD placement IMMUNIZATION STATUS: None FAMILY HISTORY: HTN DM Social History Tobacco use: PACK/DAY 1 YEARS USED 47 DETAILS/COMMENTS: former Vaping/Inhaled solvents: DETAILS/COMMENTS: Currently vapes Alcohol use: DETAILS/COMMENTS: former Drug use: DETAILS/COMMENTS: Denies recent hx MARITAL STATUS: 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, 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 -- ALLERGIES/HOME MEDS -- Modifications made in this section do not update Allergy and Home Medication List ALLERGIES - No Known Allergies ( UNKNOWN - Allergy ) -- SUBJECTIVE -- REVIEW OF SYSTEMS: Comment: 11 point review of systems found negative except as stated above in HPI -- EXAM -- VITALS (07/02 14:05 - 07/03 14:05): Blood pressure: 123/71 (123/71 - 157/101) Blood pressure source: Monitor Respiratory rate: 16 (14 - 22) Temperature F: 98.2 Pulse Rate: 96 (96 - 138) Temperature source: Oral EXAM: Other: GEN: Patient is awake, alert, oriented x 3 HEENT: NCAT, PERRLA, EOMI, MMM NECK: Supple, Trachea midline, No JVD LUNGS: CTAB, No wheezes, rhonchi, or rales CV: Irregularly irregular tachycardia, N s1/s2. No murmurs or gallops GI: S/NT/ND/ + BS. No organomegaly EXT: AROM. No cyanosis, clubbing, or edema NEURO: No focal deficits PULSES: 2+ pulses B/L upper and lower extremities SKIN: Warm, dry. No rash Psych: No agitation. Normal appropriate mood -- DATA -- ALLERGIES LAB RESULTS CBC W/AUTO DIFF (07/03/24 10:18) HEMATOCRIT 50.7 MEAN CELL VOLUME 94 MEAN CELL HGB 31.5 MEAN CELL HGB CONCENTRATION 33.5 RED CELL DISTRIBUTION WIDTH 13.8 PLATELET COUNT 291 LYMPHOCYTE # 3.19 MEAN PLATELET VOLUME 9.4 EOSINOPHIL % 0.1 BASOPHIL % 0.6 NUCLEATED RBC % 0.0 NEUTROPHIL # 9.93 H IMMATURE GRANULOCYTE # 0.090 WHITE BLOOD CELL 14.0H H RED BLOOD CELL 5.40 HEMOGLOBIN 17.0 NEUTROPHIL % 70.8 EOSINOPHIL # 0.02 IMMATURE GRANULOCYTE % 0.6 BASOPHIL # 0.08 LYMPHOCYTE % 22.8 NUCLEATED RBC # 0.000 MONOCYTE % 5.1 MONOCYTE # 0.71 BASIC METABOLIC PANEL (07/03/24 10:18) CALCIUM 9.8 SODIUM 133L L POTASSIUM 3.9 CHLORIDE 96L L CARBON DIOXIDE 25 ANION GAP 16.6 H GLUCOSE 115H H BLOOD UREA NITROGEN 13 GLOMERULAR FILTRATION RATE 57 L CREATININE 1.4H H BUN/CREATININE RATIO 9.3 L TROP-I HIGH SEN (07/03/24 10:18) TROP-I HIGH SENSITIVITY 16 TROP-I HIGH SEN (07/03/24 12:13) TROP-I HIGH SENSITIVITY 51 -- ASSESSMENT/PLAN -- A/P: 1: Atrial fibrillation with RVR A/P: Presented with palpitations and noted to have A-fib with RVR with heart rate in the 130s Patient reports compliance with his medications Noted he has been under undue amount of stress he does have underlying anxiety EKG shows nonspecific ST T changes. No STEMI. Normal axis Chest x-ray shows vascular congestion with mild interstitial prominence and interstitial pulmonary edema is present Received Cardizem 20 mg IV x 2 in ED Continue eliquis On amiodarone and metoprolol. Cont telemetry as pt at risk of prolonged QTC with use of amiodarone with azithromycin 2: CHF (congestive heart failure) A/P: not in exacerbation. 3: Presence of automatic (implantable) cardiac defibrillator 4: CAD (coronary artery disease) A/P: Continue home meds ADDITIONAL COMMENTS: CODE STATUS: Full code PPx: Taras -- ATTESTATION -- Care Activities / Care Coordination I have reviewed the history and repeated the carias elements I have seen and examined this patient I have discussed the patient's condition with other members of the care team ADDITIONAL DETAIL: 60 minutes spent in coordination of care, counseling, review of documentation. at 1426 ATTENTION *EDITS and/or ADDENDA must be made in Patient Keeper for this note. * * Edits and ammendments created in [facility] are not visible * * in Patient Keeper or the legal medical record (HPF). * RPT #: [id number] END OF REPORT [facility] 2024-07-03 11:30:00 [facility] ([facility]) EMERGENCY PROVIDER REPORT REPORT#:[id number] REPORT STATUS: Signed DATE:07/03/24 TIME: 1130 PATIENT: KOTA MONTES UNIT #: [id number] ROOM: [facility] BED: 1 : 61 AGE: 63 SEX: M PCP PHYS: Jong Pollack MD SERVICE AUTHOR: Ethan Razo Jr, MD REP SRV REP SRV TM: 1130 * ALL edits or amendments must be made on the electronic/computer document * HPI-General Illness Free Text HPI Notes Free Text HPI Notes Patient with history of AICD, CAD,Anxiety, smoker Presents to the ER complaining of palpitations and feeling very anxious. Also complaining of chest discomfort Patient states that he has been having the symptoms for the last several hours after he woke up this morning. Patient that he has been stressed. Lately Patient denies fever chills or nausea vomiting. ROS All systems rev neg except as marked. PAST MEDICAL HISTORY AICD, CAD,Anxiety, smoker PHYSICAL EXAM GEN: Well appearing HEAD: Atraumatic/NC ENT: dry mucous membranes NECK: Supple, full range of motion RESP: No resp distress, normal breath sounds CV: Reg rate rhythm, ABD: Nontender nondistended MSK -full range of motion of all extremities NEURO: alert oriented, General Confirmed Patient Yes Initial Greet Date/Time 07/03/24 1017 Presentation Chief Complaint __ Past Medical History - Adult Stated Complaint CP PMH QUADRUPLE BYPASS Allergies Coded Allergies: No Known Allergies (12/31/23) Home Medications Discontinued Scripts Guaifenesin/Dextromethorphan (Mucinex Dm 1200/60 Mg) 1 TAB PO Q12H PRN CONGESTION Guaifenesin/Dextromethorphan (Mucinex Dm 1200/60 Mg) 1 TAB PO Q12H PRN CONGESTION #20 TABS Prov: 02/15/24 DC: 07/04/24 0900 Discontinued as per Cyclobenzaprine (Flexeril) 10 MG PO Q8H PRN PRN MUSCLE SPASMS/PAIN Cyclobenzaprine (Flexeril) 10 MG PO Q8H PRN PRN MUSCLE SPASMS/PAIN #15 TABS Prov: 06/29/24 DC: 07/04/24 0859 Discontinued as per Lidocaine (Lidoderm 5%) 1 PATCH TRANSDERM DAILY Lidocaine (Lidoderm 5%) 1 PATCH TRANSDERM DAILY #30 PATCH Prov: 06/29/24 DC: 07/04/24 0900 Discontinued as per Tamsulosin Er (Flomax) 0.4 MG PO DAILY 30 Days #30 CAPS Prov: 05/27/24 DC: 07/04/24 0859 Discontinued as per Amoxicillin/Clav K (Amox-Clav 875/125 Mg) 875 MG PO BID Amoxicillin/Clav K (Amox-Clav 875/125 Mg) 875 MG PO BID #28 TAB Prov: 05/20/24 DC: 07/04/24 0858 Discontinued as per MD Reported Medications Thiamine (Vitamin B-1) 100 MG PO DAILY Atorvastatin (Lipitor) 80 MG PO BEDTIME methocarbamoL (Robaxin) 750 MG PO TID Metoprolol Tartrate (Lopressor) 12.5 MG PO Q12HR Bumetanide (Bumex) 1 MG PO BID Amiodarone (Pacerone) 200 MG PO DAILY Metoprolol Succ Xl (Toprol Xl) 25 MG PO DAILY Folic Acid 1 MG PO DAILY Apixaban (Eliquis) 5 MG PO BID Trazodone (Desyrel) 100 MG PO BEDTIME Potassium Chloride Er (Klor-Con M20) 20 MEQ PO DAILY Discontinued Reported Medications Escitalopram (Lexapro) 20 MG PO DAILY Hydrocodone/Acetaminophen (HYDROcodone/APAP 5/325) 1 TAB PO Q6H PRN pain scale 4 -6 (use 1st) Pregabalin (Lyrica) 50 MG PO BID Amiodarone (Pacerone) 200 MG PO BID Bumetanide (Bumex) 1 MG PO BID 9A 5P Calculated Suicide Risk (nurs) No risk Past Medical History: Reports: Coronary artery disease, Hypertension, Dyslipidemia. Additional Medical History History of NM, CAD, anemia, CHF, acute respiratory failure, CAD, A-fib, hyperlipidemia, pulmonary edema, hypertension, left bundle branch block Past Surgical History: Reports: CABG. Additional Surgical History Cardiac stents, right hip hardware, AICD Alcohol Use Alcohol use Drug Use Denies recreational drugs Smoking status for patients 13 years old or older: Never Smoker Physical Exam Vital Signs Vital Signs First Documented: Result Date Time Pulse Ox 93 07/03 1011 B/P 157/101 07/03 1011 O2 Delivery Room air 07/03 1011 Temp 36.8 07/03 1011 Pulse 138 05/ 1011 Resp 22 07/03 1011 B/P Mean 108 07/03 1030 Last Documented: Result Date Time Pulse Ox 89 07/03 1300 B/P 123/71 / 1300 B/P Mean 93 05/ 1300 Pulse 96 05/ 1300 Resp 16 05/ 1300 O2 Delivery Room air 07/03 1011 Temp 36.8 07/03 1011 Review of Vital Signs Reviewed Interpretation Diagnostics Lab Results Interpretation Results Laboratory Tests 07/03/24 1018: [Embedded Image Not Available] Laboratory Tests: 07/03 07/03 1018 1213 Chemistry Sodium (136 - 145 mmol/L) 133 L Potassium (3.5 - 5.1 mmol/L) 3.9 Chloride (98 - 107 mmol/L) 96 L Carbon Dioxide (20 - 31 mmol/L) 25 Anion Gap (2.0 - 16.0) 16.6 H BUN (9 - 23 mg/dL) 13 Creatinine (0.7 - 1.3 mg/dL) 1.4 H Glomerular Filtr Rate (ml/min) 57 L BUN/Creatinine Ratio (12.0 - 20.0) 9.3 L Glucose (74 - 106 mg/dL) 115 H Calcium (8.7 - 10.4 mg/dL) 9.8 Troponin I High Sens (0 - 78 pg/mL) 16 51 Hematology WBC (4.5 - 11.0 10 3/uL) 14.0 H RBC (4.30 - 5.90 10 6/uL) 5.40 Hgb (14.0 - 18.0 g/dL) 17.0 Hct (40.0 - 55.0 %) 50.7 MCV (81 - 102 fL) 94 MCH (26.0 - 34.0 pg) 31.5 MCHC (31.0 - 37.0 g/dL) 33.5 RDW (11.6 - 14.4 %) 13.8 Plt Count (150 - 400 10 3/uL) 291 MPV (9.0 - 12.6 fL) 9.4 Neut % (Auto) (33.0 - 76.0 %) 70.8 Lymph % (Auto) (14.0 - 56.4 %) 22.8 Williams % (Auto) (0.0 - 12.9 %) 5.1 Eos % (Auto) (0.0 - 7.0 %) 0.1 Baso % (Auto) (0 - 2.0 %) 0.6 Neut # (Auto) (1.5 - 7.0 10 3/uL) 9.93 H Lymph # (Auto) (1.50 - 4.00 10 3/uL) 3.19 Williams # (Auto) (0.20 - 0.80 10 3/uL) 0.71 Eos # (Auto) (0.0 - 0.5 10 3/uL) 0.02 Baso # (Auto) (0.0 - 0.1 10 3/uL) 0.08 Abs Immat Gran (auto) (0.000 - 0.100 x10 3/uL) 0.090 Immature Gran % (0.0 - 1.0 %) 0.6 Nucleated RBC % (0 - 0.2 %) 0.0 Nucleated RBCs # (0.000 - 0.012 10 3/uL) 0.000 Recent Impressions: RADIOLOGY - XR CHEST 1 V 07/03 1018 Report Impression - Status: SIGNED Entered: 07/03/2024 1100 IMPRESSION: 1. Vascular congestion and mild interstitial prominence/interstitial pulmonary edema are present. Impression By: [email or web address] - Finesse Crooks MD ECG #1 Interpretation Text/Dict Note A-fib at a rate of [address]-T changes Normal axis Independently interpreted by me Re-Evaluation MDM Free Text MDM Notes Additional Text Critical Care Time Spent (minutes): 80 Services Performed Patient management by me, Time spent at bedside, Reviewing test results, Reviewing imaging, Discussing patient care, Documentation in record, Time with fam/surrogate Separately billable procedures excluded from time. Patient was critically ill due to: A-fib with RVR, tachycardia My treatment and management were: IV fluids, IV Cardizem boluses, stat consultation with cardiology Neuro checks, constant reassessment and monitoring Total critical care time [80] minutes. Total critical care time documented does not include time spent on separately billed procedures or the services of residents, students, nurses or physician assistants. I personally saw and examined the patient. I have reviewed all diagnostic interpretations and treatment plans as written. I was present for the carias portions of any procedures performed and the inclusive time noted in any critical care statement. Critical care time includes patient management by me, time spent at the patients bedside, time to review lab and imaging results, discussing patient care, documentation in the medical record, and time spent with the family or caregiver. Medical Decision Making Number and Complexity of Problems Addressed: The patient presents with an acute illness with systemic system requiring rapid evaluation workup and possible intervention. Posing a threat to life or bodily function Differentials include /Concern for-arrhythmia, PE, ACS, pneumothorax Amount and/or Complexity of Data Reviewed and Analyzed. Includes review of any labs, ordered imaging and EKGs are all independently reviewed by me. Labs ordered and reviewed: CBC, CMP, troponin Imaging reviewed: X-ray chest EKG: A-fib at a rate of [address]-T changes Normal axis Independently interpreted by me Prior Records reviewed: Prior ED records and /or admission records Independent historian/ Discussion with family/caregivers - Risk of Complications and/or Morbidity or Mortality: High risk due to patient with underlying coronary artery disease with tachycardia required intravenous antiarrhythmics. Close monitoring in ED on telemetry Interpretation : Patient does have acute A-fib with RVR Consultations: Cardiology, internal medicine will continue plan of care. At this time will admit patient to IMU after receiving multiple boluses. Therapeutics: IV Cardizem x 2, Ativan IV Reevaluation: Patient is feeling better at this time. Heart rate now at the 80s to 90s Disposition: IVC level of care Social determinants of health were considered and impacted medical decision making and as a result part of patient's plan of care. A decision regarding admission was discussed including risks and benefits and shared decision making. ED Course Medication(s) Ordered Medication(s) Ordered: Cardiovascular Drugs Sig/Alfonzo Start time Last Medication Dose Route Stop Time Status Admin Diltiazem HCl 20 MG X1ED STA 05 1158 DC 05/02 IV 05/ 1159 1221 Diltiazem HCl 20 MG X1ED STA 05 1023 DC 05/02 IV 05/ 1024 1027 Central Nervous System Agents Sig/Alfonzo Start time Last Medication Dose Route Stop Time Status Admin Lorazepam 2 MG X1ED STA 05 1158 DC 05/02 IV 05/ 1159 1223 Aspirin 324 MG X1ED STA 05 1017 DC 05/02 PO 05/ 1018 1027 Patient Discharge Departure Vital Signs/Condition Vital Signs First Documented: Result Date Time Pulse Ox 93 05/ 1011 B/P 157/101 05/02 1011 O2 Delivery Room air 05/ 1011 Temp 36.8 05/02 1011 Pulse 138 05/02 1011 Resp 22 05/02 1011 B/P Mean 108 05/02 1030 Last Documented: Result Date Time Pulse Ox 89 05/02 1300 B/P 123/71 05/02 1300 B/P Mean 93 05/02 1300 Pulse 96 05/02 1300 Resp 16 05/02 1300 O2 Delivery Room air 05/ 1011 Temp 36.8 05/02 1011 All vital signs available at the time of this entry have been reviewed. Condition Stable Clinical Impression Clinical Impression Primary Impression: Atrial fibrillation with RVR Disposition Decision Hospitalize Hosp Physician Name Josette Ley( Accepts Hospitalization Yes )( Reason for Hospitalization afib w rvr )( Accepted Time 1320 )( Accepted Date 07/03/24 Call Information will see patient Discharge/Care Plan (Auto) Prescriptions Current Visit Scripts Atorvastatin (Lipitor) 80 MG PO DAILY Atorvastatin (Lipitor) 80 MG PO DAILY #30 TAB Ref 2 Alprazolam (Xanax) 0.5 MG PO Q12H PRN AGITATION OR ANXIETY Alprazolam (Xanax) 0.5 MG PO Q12H PRN AGITATION OR ANXIETY #60 TAB at 0646 [facility] #:[id number] END OF REPORT [facility] 2024-07-03 10:13:00 [id number] [address] PATIENT NAME: KOTA MONTES ADMIT DATE: 07/03/24 ACCOUNT NO: [id number] ROOM NO: [facility] AGE: 63 REPORT TYPE: eELECTROCARDIOGRAM SEX: M ADMITTING PHYSICIAN:Josette Ley DO ATTENDING PHYSICIAN:Josette Ley DO Order: [id number] Test Reason : CHEST PAIN Test Date/Time Stamp: SatJul 03 2024 10:13:19 Blood Pressure : / mmHG Vent. Rate : 138 BPM Atrial Rate : 000 BPM P-R Int : 000 ms QRS Dur : 150 ms QT Int : 380 ms P-R-T Axes : 000 006 062 degrees QTc Int : 575 ms Atrial fibrillation with rapid ventricular response Nonspecific intraventricular block Minimal voltage criteria for LVH, may be normal variant ( [place] product ) Abnormal ECG When compared with ECG of 15-MAY-2024 22:31, Atrial fibrillation has replaced Electronic ventricular pacemaker Confirmed by MD Timoteo, Olman ([id number]) on 07/04/2024 5:53:15 AM Referred By: GENERIC EDDOC Confirmed by:Olman Mahmood MD at [address] [address] PATIENT NAME: KOTA MONTES [facility] 2024-06-29 16:53:00 [facility] ([facility]) EMERGENCY PROVIDER REPORT REPORT#:[id number] REPORT STATUS: Signed DATE:06/29/24 TIME: 1653 PATIENT: KOTA MONTES UNIT #: [id number] ROOM: BED: : 61 AGE: 63 SEX: M PCP PHYS: Jong Pollack MD SERVICE AUTHOR: Chet Hammer APRN [employer] RE[employer] TECHNICIAN [employer] REP SRV REP SRV TM: 1653 * ALL edits or amendments must be made on the electronic/computer document * Chet Hammer 06/29/241652: HPI-Should/Arm Prob/Inj Free Text HPI Notes Free Text HPI Notes 63-year-old male with past medical history of coronary artery disease, CABG, hypertension, hyperlipidemia presents with left shoulder pain after he pulled on something heavy 1 month ago. The patient has been constant and has caused him to have decreased further motion in left shoulder. Patient denies that the right the pain radiates down the arm, chest pain, shortness of breath, dizziness. Patient has not been seen for this. Patient has been taking over- the-counter medications to treat pain with some help. General Initial Greet Date/Time 06/29/241642 Presentation Chief Complaint Shoulder injury L Review of Systems Free Text ROS Notes Free Text ROS Notes CONSTITUTIONAL: No fever, fatigue or weight loss. SKIN: No rash. HENT: No congestion, ear pain, or sore throat. EYES: No recent vision problems or eye pain. ENDOCRINE: No thyroid problems. No polyuria or polydipsia. CARDIOVASCULAR: No chest pain or edema. RESPIRATORY: No cough, shortness of breath, congestion, or wheezing. GASTROINTESTINAL: No abdominal pain, nausea, vomiting, bloody stools or diarrhea. GENITOURINARY: No dysuria. MUSCULOSKELETAL: Left shoulder pain and decreased range of motion NEUROLOGIC: No seizures. No headache, focal weakness or sensory changes. HEMATOLOGIC: No unusual bruising or bleeding. PSYCHIATRIC: No depression or anxiety. Past Medical History - Adult Stated Complaint LEFT SHOULDER PAIN Allergies Coded Allergies: No Known Allergies (12/31/23) Home Medications Active Scripts Guaifenesin/Dextromethorphan (Mucinex Dm 1200/60 Mg) 1 TAB PO Q12H PRN CONGESTION Guaifenesin/Dextromethorphan (Mucinex Dm 1200/60 Mg) 1 TAB PO Q12H PRN CONGESTION #20 TABS Prov: 02/15/24 Tamsulosin Er (Flomax) 0.4 MG PO DAILY 30 Days #30 CAPS Prov: 05/27/24 Amoxicillin/Clav K (Amox-Clav 875/125 Mg) 875 MG PO BID Amoxicillin/Clav K (Amox-Clav 875/125 Mg) 875 MG PO BID #28 TAB Prov: 05/20/24 Reported Medications Escitalopram (Lexapro) 20 MG PO DAILY Thiamine (Vitamin B-1) 100 MG PO DAILY Hydrocodone/Acetaminophen (HYDROcodone/APAP 5/325) 1 TAB PO Q6H PRN pain scale 4 -6 (use 1st) Apixaban (Eliquis) 5 MG PO BID Atorvastatin (Lipitor) 80 MG PO BEDTIME methocarbamoL (Robaxin) 750 MG PO TID Pregabalin (Lyrica) 50 MG PO BID Metoprolol Tartrate (Lopressor) 12.5 MG PO Q12HR Amiodarone (Pacerone) 200 MG PO BID Bumetanide (Bumex) 1 MG PO BID 9A 5P Folic Acid 1 MG PO DAILY Past Medical History: Reports: Coronary artery disease, Hypertension, Dyslipidemia. Additional Medical History History of NM, CAD, anemia, CHF, acute respiratory failure, CAD, A-fib, hyperlipidemia, pulmonary edema, hypertension, left bundle branch block Past Surgical History: Reports: CABG. Additional Surgical History Cardiac stents, right hip hardware, AICD Alcohol Use Alcohol use Drug Use Denies recreational drugs Physical Exam Vital Signs Vital Signs First Documented: Result Date Time Pulse Ox 94 06/29 1640 B/P 108/77 06/29 1640 O2 Delivery Room air 06/29 1640 Temp 37.2 06/29 1640 Pulse 92 06/29 1640 Resp 06/29 1640 Last Documented: Result Date Time Pulse Ox 93 06/29 1735 B/P 110/67 06/29 173 O2 Delivery Room air 06/29 1735 Temp 37.1 06/29 173 Pulse 89 06/29 1735 Resp 06/29 173 Review of Vital Signs Reviewed Free Text PE Notes Free Text PE Notes GENERAL: No acute distress, non-toxic appearance. HEAD: Normal with no signs of head trauma. EYES: EOMI, conjunctiva normal, no discharge. ENT: dry mucous membranes NECK: Normal range of motion, supple CHEST: Clear breath sounds bilaterally. No wheezes, rales, or rhonchi. CARDIAC: Regular rate and rhythm. S1 and S2, ABDOMEN: Normal and soft with no tenderness GENITOURINARY: Normal, No tenderness MUSCULOSKELETAL: Decreased active and passive range of motion in left shoulder. Tenderness on palpation anteriorly as well as laterally. Muscle spasms noted to posterior shoulder. NEUROLOGICAL: Alert and oriented, gross movement normal PSYCHIATRIC: Normal Affect, judgement and mood. Interpretation Diagnostics Lab Results Interpretation Results Recent Impressions: RADIOLOGY - XR SHOULDER 2 + V LT 06/29 1649 Report Impression - Status: SIGNED Entered: 06/29/2024 1720 IMPRESSION: No acute fracture is detected. Impression By: [email or web address] - Mason Corado MD Re-Evaluation MDM Free Text MDM Notes Additional Text 63-year-old male with past medical history of coronary artery disease, CABG, hypertension, hyperlipidemia presents with left shoulder pain after he pulled on something heavy 1 month ago. The patient has been constant and has caused him to have decreased further motion in left shoulder. Patient denies that the right the pain radiates down the arm, chest pain, shortness of breath, dizziness. Patient has not been seen for this. Patient has been taking over- the-counter medications to treat pain with some help. Differential diagnosis to include but limited to shoulder dislocation, humeral fracture, AC joint separation, clavicle fracture, shoulder strain, ligament injury On exam patient is not in any distress. There is significant decreased range of motion of the left shoulder and reproducible tenderness on palpation of the left shoulder. Will get an x-ray at this time. X-ray shows degenerative changes in the left shoulder but no dislocations or fractures noted at this time. We will discharge patient home with prescriptions for muscle relaxer and lidocaine patch. Patient can continue to use Tylenol as needed for pain. Referrals given to follow-up with orthopedic specialty for further evaluation and treatment. Patient agreed to return to the emergency room he starts to experience any chest pain, shortness of breath or any other emergent signs or symptoms that may arise. Patient vocalized understanding of the plan of care and agrees. ED Course Medication(s) Ordered Medication(s) Ordered: Central Nervous System Agents Sig/Alfonzo Start time Last Medication Dose Route Stop Time Status Admin Hydrocodone Bitart/ 1 TAB X1ED STA 06/29 1657 DC Acetaminophen PO 06/29 1658 Patient Discharge Departure Vital Signs/Condition Vital Signs First Documented: Result Date Time Pulse Ox 94 06/29 1640 B/P 108/77 06/29 1640 O2 Delivery Room air 06/29 1640 Temp 37.2 06/29 1640 Pulse 92 06/29 1640 Resp 06/29 1640 Last Documented: Result Date Time Pulse Ox 93 06/29 173 B/P 110/67 06/29 173 O2 Delivery Room air 06/29 173 Temp 37.1 06/29 173 Pulse 89 06/29 173 Resp 16 06/29 1734 All vital signs available at the time of this entry have been reviewed. Condition Stable Clinical Impression Clinical Impression Primary Impression: Sprain of left shoulder Disposition Decision Discharge )( Discharged to Home Yes )( Time 172 )( Date 06/29/24 Discharge/Care Plan Counseled Regarding Diagnosis, Imaging studies, Prescriptions, Need for follow- up, When to return to ED (Auto) Prescriptions Current Visit Scripts Cyclobenzaprine (Flexeril) 10 MG PO Q8H PRN PRN MUSCLE SPASMS/PAIN Cyclobenzaprine (Flexeril) 10 MG PO Q8H PRN PRN MUSCLE SPASMS/PAIN #15 TABS Lidocaine (Lidoderm 5%) 1 PATCH TRANSDERM DAILY Lidocaine (Lidoderm 5%) 1 PATCH TRANSDERM DAILY #30 PATCH Patient Instructions ED Shoulder Sprain, Shoulder Separation Rehab Exercises Additional Instructions Today you are seen for left shoulder pain has been going on for about a month after lifting something heavy. There was no fracture or dislocation seen at this time but you did have degenerative changes in your shoulder joint. I would like for you to follow-up with orthopedic specialty for further evaluation treatment as needed. Please return to the emergency room if you start to experience any chest pain, shortness of breath or any other concerning signs symptoms. Discharge Note I have spoken with the patient and/or caregivers. I have explained the patient's condition, diagnoses and treatment plan based on the information available to me at this time. I have answered the patient's and/or caregiver's questions and addressed any concerns. The patient and/or caregivers have as good an understanding of the patient's diagnosis, condition and treatment plan as can be expected at this point. The vital signs have been stable. The patient's condition is stable and appropriate for discharge from the emergency department. The patient will pursue further outpatient evaluation with the primary care physician or other designated or consulting physician as outlined in the discharge instructions. The patient and/or caregivers are agreeable to this plan of care and follow-up instructions have been explained in detail. The patient and/or caregivers have received these instructions in written format and have expressed an understanding of the discharge instructions. The patient and/or caregivers are aware that any significant change in condition or worsening of symptoms should prompt an immediate return to this or the closest emergency department or a call to 911. Extremity Inj Discharge Note The patient is discharged home with supportive care, a plan for pain control, and follow-up instructions that detail what to expect over the next 48 hours and what symptoms should prompt immediate return to the ED, including the symptoms of compartment syndrome. Follow-up instructions have been explained in detail to the patient, and the instructions have been provided in written format. The patient is comfortable with the plan of care and has expressed an understanding of the discharge instructions. The patient is aware that any significant change in condition or worsening of symptoms should prompt an immediate call to the primary or designated physician. If that is not successful the patient should call or return to this or the closest emergency department or call 911. Arturo Jimenez 06/30/24 1530: Patient Discharge Departure Discharge/Care Plan Referrals Provider Referral: Yared Mcduffie MD Address: [address] [facility], [address] [place] [address] Provider Referral: Sundeep Whyte MD Address: [id number] [place] [address], [address] [place] [address] Provider Referral: Yoshi Zaldivar MD Address: [id number] [place], [place] [address]dhiraj Flores, [address] [place] [address] Provider Referral: Washington Lujan II, MD Address: [address] [place] [address] at [address]2 at [address] [facility] #:[id number] END OF REPORT [facility] 2024-05-27 08:19:00 [facility] ([facility]) EMERGENCY PROVIDER REPORT REPORT#:[id number] REPORT STATUS: Signed DATE:05/27/24 TIME: 0819 PATIENT: KOTA MONTES UNIT #: [id number] ROOM: BED: : 61 AGE: 63 SEX: M PCP PHYS: Jong Pollack MD SERVICE AUTHOR: Liset Whiting MD REP SRV REP SRV TM: [id number] * ALL edits or amendments must be made on the electronic/computer document * HPI- Male Free Text HPI Notes Free Text HPI Notes 63-year-old male with history of CABG, CHF, A-fib, cardiomyopathy presenting today for urinary retention. Patient states that symptoms started yesterday after he went to pain management doctor and received an intramuscular shot and was started on gabapentin. He states that immediately after the shot he developed urinary retention last night. He reports that he was dribbling urine and unable to completely empty his bladder. Denies any associated dysuria, hematuria. [facility] and was offered Singh catheter, however patient stated that he did not want a Singh bag and was prescribed Flomax and came to our emergency room. States he has an appointment with urology but it is not until next week. General Initial Greet Date/Time 05/27/24 0800 Presentation Chief Complaint Unable to urinate Review of Systems ROS Statements All systems rev neg except as marked. Past Medical History - Adult Stated Complaint Unable to urinate Allergies Coded Allergies: No Known Allergies (12/31/23) Home Medications Active Scripts Guaifenesin/Dextromethorphan (Mucinex Dm 1200/60 Mg) 1 TAB PO Q12H PRN CONGESTION Guaifenesin/Dextromethorphan (Mucinex Dm 1200/60 Mg) 1 TAB PO Q12H PRN CONGESTION #20 TABS Prov: 02/15/24 Tamsulosin Er (Flomax) 0.4 MG PO DAILY 30 Days #30 CAPS Prov: 05/27/24 Amoxicillin/Clav K (Amox-Clav 875/125 Mg) 875 MG PO BID Amoxicillin/Clav K (Amox-Clav 875/125 Mg) 875 MG PO BID #28 TAB Prov: 05/20/24 Discontinued Scripts Methylprednisolone (Medrol 4 Mg Dosepak) 4 MG PO ASDIR Methylprednisolone (Medrol 4 Mg Dosepak) 4 MG PO ASDIR #1 PACKET Prov: 04/30/24 DC: 05/20/24 1324 DC prior to admit Methocarbamol (Robaxin) 500 MG PO QID PRN PRN muscle spasm Methocarbamol (Robaxin) 500 MG PO QID PRN PRN muscle spasm #30 TABS Prov: 04/30/24 DC: 05/20/24 1323 Duplicate therapy Amiodarone (Pacerone) 200 MG PO Q12HR Amiodarone (Pacerone) 200 MG PO Q12HR #60 TAB Prov: 02/24/24 DC: 05/20/24 1323 Duplicate therapy Cephalexin (Keflex) 250 MG PO Q6H Cephalexin (Keflex) 250 MG PO Q6H #20 CAP Prov: 02/24/24 DC: 05/20/24 1323 DC prior to admit Prednisone 20 MG PO SPECIAL INST Prednisone 20 MG PO SPECIAL INST #11 TAB Prov: 02/24/24 DC: 05/20/24 1324 DC prior to admit Reported Medications Escitalopram (Lexapro) 20 MG PO DAILY Thiamine (Vitamin B-1) 100 MG PO DAILY Hydrocodone/Acetaminophen (HYDROcodone/APAP 5/325) 1 TAB PO Q6H PRN pain scale 4 -6 (use 1st) Apixaban (Eliquis) 5 MG PO BID Atorvastatin (Lipitor) 80 MG PO BEDTIME methocarbamoL (Robaxin) 750 MG PO TID Pregabalin (Lyrica) 50 MG PO BID Metoprolol Tartrate (Lopressor) 12.5 MG PO Q12HR Amiodarone (Pacerone) 200 MG PO BID Bumetanide (Bumex) 1 MG PO BID 9A 5P Folic Acid 1 MG PO DAILY Calculated Suicide Risk (nurs) No risk Past Medical History: Reports: Coronary artery disease, Hypertension, Dyslipidemia. Additional Medical History History of NM, CAD, anemia, CHF, acute respiratory failure, CAD, A-fib, hyperlipidemia, pulmonary edema, hypertension, left bundle branch block Past Surgical History: Reports: CABG. Additional Surgical History Cardiac stents, right hip hardware, AICD Alcohol Use Alcohol use Drug Use Denies recreational drugs Smoking status for patients 13 years old or older: Unknown,if ever smoked Physical Exam Vital Signs Vital Signs First Documented: Result Date Time Pulse Ox 99 05/27 0804 B/P 120/70 05/27 08 O2 Delivery Room air 05/27 08 Temp 37.2 05/27 08 Pulse 89 05/27 0804 Resp 05/27 Last Documented: Result Date Time Pulse Ox 99 05/27 0804 B/P 120/70 05/28 803 O2 Delivery Room air 05/27 0804 Temp 37.2 05/28 803 Pulse 89 05/28 0704 Resp 05/27 Review of Vital Signs Reviewed Focused PE General/Const General/Const Awake, Alert, No acute distress, Well appearing Abdomen/GI Abdomen/GI Soft Text/Dict Notes Moderately distended Skin Skin Warm, Dry, Intact Re-Evaluation MDM Free Text MDM Notes Free Text MDM Notes 63-year-old male presented to the emergency department with inability to urinate. During the management of the patient broad differentials were considered including (but not limited to) acute urinary retention, medication side effect, BPH, bladder stone, cystitis. Patient was just [facility] and UA did not show any evidence of infection. Workup included postvoid residual 162, which is greater than normal but he is still able to urinate. Pt does not want singh catheter. Overall clinical impression leads to acute urinary retention due to side effect of medication. Patient/family verbalized understanding and is agreeable to the plan of discharge home, continue flomax. Given ED return precaution for acute retention if symptoms worsen and he is completely unable to urinate. Independent interpretation of studies were performed by me including imaging, EKG and their findings. An external chart review was completed consisting of prior discharges, ER visits etc. Other diagnostic testing and social determinants of health that affect the patient's care were also part of the patient's care plan. Decision regarding hospitalization was discussed along with the risks, benefits, and alternative options. Patient Discharge Departure Vital Signs/Condition Vital Signs First Documented: Result Date Time Pulse Ox 99 05/27 0804 B/P 120/70 05/28 803 O2 Delivery Room air 05/27 08 Temp 37.2 05/28 803 Pulse 89 05/27 0804 Resp 05/27 Last Documented: Result Date Time Pulse Ox 99 05/27 0804 B/P 120/70 05/28 803 O2 Delivery Room air 05/28 803 Temp 37.2 05/28 803 Pulse 89 05/27 0804 Resp 05/27 All vital signs available at the time of this entry have been reviewed. Clinical Impression Clinical Impression Primary Impression: Urinary retention Disposition Decision Discharge )( Discharged to Home Yes )( Time 0904 )( Date 05/27/24 Discharge/Care Plan Patient Instructions ED Urinary Retention, Male Additional Instructions You had adverse medication side effect of urinary retention. Take flomax prescribed earlier today. Follow up with urology. Previously on: Hydrocodone 5/325 for chronic pain Discharge Note I have spoken with the patient and/or caregivers. I have explained the patient's condition, diagnoses and treatment plan based on the information available to me at this time. I have answered the patient's and/or caregiver's questions and addressed any concerns. The patient and/or caregivers have as good an understanding of the patient's diagnosis, condition and treatment plan as can be expected at this point. The vital signs have been stable. The patient's condition is stable and appropriate for discharge from the emergency department. The patient will pursue further outpatient evaluation with the primary care physician or other designated or consulting physician as outlined in the discharge instructions. The patient and/or caregivers are agreeable to this plan of care and follow-up instructions have been explained in detail. The patient and/or caregivers have received these instructions in written format and have expressed an understanding of the discharge instructions. The patient and/or caregivers are aware that any significant change in condition or worsening of symptoms should prompt an immediate return to this or the closest emergency department or a call to 911. at 0907 RPT #:[id number] END OF REPORT [facility] 2024-05-27 04:55:00 [facility] ([facility]) EMERGENCY PROVIDER REPORT REPORT#:[id number] REPORT STATUS: Signed DATE:05/27/24 TIME: 454 PATIENT: KOTA MONTES UNIT #: [id number] ROOM: BED: : 61 AGE: 63 SEX: M PCP PHYS: Jong Pollack MD SERVICE AUTHOR: Candie Soto DO REP SRV REP SRV TM: 0455 * ALL edits or amendments must be made on the electronic/computer document * HPI- Male Free Text HPI Notes Free Text HPI Notes 63 years old male with history of CHF and cardiac arrhythmias with prior multiple intubations [facility] complaining of inability to fully empty his urinary bladder since yesterday night. As per patient he saw pain management yesterday and he received injection and he was prescribed gabapentin, as per patient started to have difficulty urination, as per patient still able to urinate with dribbling of urine but not able to completely empty his bladder. Patient denies fever, no burning urination, no hematuria, no scrotal pain or any additional complaint otherwise General Initial Greet Date/Time 05/27/24 0410 Presentation Chief Complaint Urination decreased Risk- Male Risk Stratification Torsion Risk factors reviewed, No risk factors Review of Systems ROS Statements All systems rev neg except as marked. Past Medical History - Adult Stated Complaint SOB-MUSCLE PAIN-HEADACHE Allergies Coded Allergies: No Known Allergies (12/31/23) Home Medications Active Scripts Guaifenesin/Dextromethorphan (Mucinex Dm 1200/60 Mg) 1 TAB PO Q12H PRN CONGESTION Guaifenesin/Dextromethorphan (Mucinex Dm 1200/60 Mg) 1 TAB PO Q12H PRN CONGESTION #20 TABS Prov: 02/15/24 Amoxicillin/Clav K (Amox-Clav 875/125 Mg) 875 MG PO BID Amoxicillin/Clav K (Amox-Clav 875/125 Mg) 875 MG PO BID #28 TAB Prov: 05/20/24 Discontinued Scripts Methylprednisolone (Medrol 4 Mg Dosepak) 4 MG PO ASDIR Methylprednisolone (Medrol 4 Mg Dosepak) 4 MG PO ASDIR #1 PACKET Prov: 04/30/24 DC: 05/20/24 1324 DC prior to admit Methocarbamol (Robaxin) 500 MG PO QID PRN PRN muscle spasm Methocarbamol (Robaxin) 500 MG PO QID PRN PRN muscle spasm #30 TABS Prov: 04/30/24 DC: 05/20/24 1323 Duplicate therapy Amiodarone (Pacerone) 200 MG PO Q12HR Amiodarone (Pacerone) 200 MG PO Q12HR #60 TAB Prov: 02/24/24 DC: 05/20/24 1323 Duplicate therapy Cephalexin (Keflex) 250 MG PO Q6H Cephalexin (Keflex) 250 MG PO Q6H #20 CAP Prov: 02/24/24 DC: 05/20/24 1323 DC prior to admit Prednisone 20 MG PO SPECIAL INST Prednisone 20 MG PO SPECIAL INST #11 TAB Prov: 02/24/24 DC: 05/20/24 1324 DC prior to admit Reported Medications Escitalopram (Lexapro) 20 MG PO DAILY Thiamine (Vitamin B-1) 100 MG PO DAILY Hydrocodone/Acetaminophen (HYDROcodone/APAP 5/325) 1 TAB PO Q6H PRN pain scale 4 -6 (use 1st) Apixaban (Eliquis) 5 MG PO BID Atorvastatin (Lipitor) 80 MG PO BEDTIME methocarbamoL (Robaxin) 750 MG PO TID Pregabalin (Lyrica) 50 MG PO BID Metoprolol Tartrate (Lopressor) 12.5 MG PO Q12HR Amiodarone (Pacerone) 200 MG PO BID Bumetanide (Bumex) 1 MG PO BID 9A 5P Folic Acid 1 MG PO DAILY Physical Exam Vital Signs Vital Signs First Documented: Result Date Time Pulse Ox 100 05/27 0407 B/P 137/95 05/27 0407 O2 Delivery Room air 05/27 406 Temp 36.8 05/27 0407 Pulse 97 05/27 0407 Resp 16 05/27 0407 Last Documented: Result Date Time Pulse Ox 100 05/27 0407 B/P 137/95 05/27 040 O2 Delivery Room air 05/27 406 Temp 36.8 05/27 0407 Pulse 97 05/27 0407 Resp 16 05/27 0407 Review of Vital Signs Reviewed Free Text PE Notes Free Text PE Notes Gen/Const: wake, alert, no acute distress, well appearing MS Head: normocephalic, atraumatic Neck: no midline ttp Eyes: PERRL b/l; EOM intact Ears/Nose/Throat: normal posterior oropharynx, TMs clear b/l Resp/Chest: lungs CTAB; no wheezes, rales, rhonchi, retractions Cardiovascular: rrr; no murmurs, gallops, or rubs; capillary refill less than 2 seconds; no chest ttp Abdomen/GI: soft, nontender, abdomen distended to the umbilicus, no McBurney point tenderness, no left lower quadrant tenderness, mild suprapubic tenderness, bowel sounds equal and reactive Skin: Normal color; no rash present; no petechiae or purpura Neurologic: Awake, alert, oriented x4; cranial nerves II through XII intact; no motor deficits; no sensory deficit; normal cerebellar function; normal gait Interpretation Diagnostics Lab Results Interpretation Results Laboratory Tests: 05/27 446 Urines POC Urine Color (Yellow) Light yellow POC Urine Appearance (Clear) Clear POC Urine pH (5.0 - 8.0) 6.5 POC Ur Specif Lutts (1.001 - 1.035) <= 1.005 POC Urine Protein (Negative) Negative POC Ur Glucose (UA) (Negative) Negative POC Urine Ketones (Negative) Negative POC Urine Blood (Negative) Negative POC Urine Nitrite (Negative) Negative POC Urine Bilirubin (Negative) Negative POC Urine Urobilinogen (0.2 - 1.0 E.U/dL) 0.2 POC U Leukocyte Esteras (Negative) Negative Re-Evaluation MDM Free Text MDM Notes Free Text MDM Notes 63 years old male with history of CHF and cardiac arrhythmias status post multiple intubations presents with acute urinary retention after received gabapentin for chronic back pain Patient with stable vitals Patient denies chest pain or shortness of breath Patient with abdominal distention to the umbilicus level with ultrasound bedside with full bladder Advised Singh catheterization, UA, Flomax and outpatient follow-up with urology Patient refused urinary or Singh catheterization, patient asked to try the bathroom 1 more time Patient was able to urinate as per patient large volume Repeated ultrasound with decreased urinary bladder size but still near full bladder Patient still refusing Singh catheterization asking to leave the emergency room, as per patient will follow-up with his urologist today UA negative for UTI, patient received Flomax in the emergency room Red flags and return instructions discussed with the patient who showed understanding agreed with the discharge plan and the required outpatient follow- up ED Course Medication(s) Ordered Medication(s) Ordered: Cardiovascular Drugs Sig/Alfonzo Start time Last Medication Dose Route Stop Time Status Admin Tamsulosin HCl 0.4 MG X1ED STA 05/27 450 DC 05/27 PO 05/28 451 0453 Patient Discharge Departure Vital Signs/Condition Vital Signs First Documented: Result Date Time Pulse Ox 100 05/27 406 B/P 137/95 05/27 406 O2 Delivery Room air 05/27 406 Temp 36.8 05/27 406 Pulse 97 05/27 406 Resp 16 05/27 406 Last Documented: Result Date Time Pulse Ox 100 05/27 406 B/P 137/95 05/27 406 O2 Delivery Room air 05/27 406 Temp 36.8 05/27 406 Pulse 97 05/27 406 Resp 16 05/27 406 All vital signs available at the time of this entry have been reviewed. Condition Improved Clinical Impression Clinical Impression Primary Impression: Acute urinary retention Disposition Decision Discharge )( Discharged to Home Yes )( Time 0506 )( Date 05/27/24 Discharge/Care Plan Counseled Regarding Diagnosis, Lab results, Need for follow-up, When to return to ED (Auto) Prescriptions Current Visit Scripts Tamsulosin Er (Flomax) 0.4 MG PO DAILY 30 Days #30 CAPS Patient Instructions ED Urinary Retention, Male Additional Instructions Please follow-up with your primary doctor and urologist immediately for further evaluation and management Referrals Provider Referral: Tony Venegas MD Address: [address] [facility] [address] [place] [address] at 0541 RPT #:[id number] END OF REPORT [facility] 2024-05-25 21:03:00 [id number] [address] PATIENT NAME: KOTA MONTES ADMIT DATE: 05/16/24 ACCOUNT NO: [id number] ROOM NO: [facility] AGE: 63 REPORT TYPE: 360 - QUERY RESPONSE DOCUMENT SEX: M ADMITTING PHYSICIAN:Josette Ley DO ATTENDING PHYSICIAN:Josette Ley DO Provider Query QUERY TEXT: Clarification Conflicting Diagnosis Procedure 360MD Query related questions should be directed to: [facility] Coding Query Helpline Based on your clinical judgement, please clarify the following conflicting documentation: [Based on your clinical judgment please clarify the status of icd malfunction Icd malfunction is present condition Icd malfunction is history condition] The patient's Clinical Indicators include: DISCHARGE DIAGNOSIS: - ICD (implantable cardioverter-defibrillator) malfunction-Hospitalist D/C Summary 05/20/2024 (2) PAST MEDICAL HISTORY: - ICD (implantable cardioverter-defibrillator) malfunction-Nephrology Consultation 05/18/2024 Options provided: -- Respond - Create new note now -- Disagree - Not applicable / Not valid -- Disagree - Clinically unable to determine / Unknown -- Assign to another provider QUERY RESPONSE: present Query created by: Shubham Swartz on 05/23/2024 6:39 AM at 2103 PATIENT NAME: KOTA MONTES [facility] 2024-05-20 13:15:00 [facility] ([facility]) Med Order Sheet REPORT #: [id number] REPORT STATUS: Signed DATE: 05/20/24 TIME: 1315 PATIENT: KOTA MONTES UNIT #: [id number] ROOM #: NC.212 BED: 1 : 61 AGE: 63 SEX: M ATTEND: Josette Ley DO ADM AUTHOR: Josette Ley DO ATTENTION *EDITS and/or ADDENDA must be made in Patient Keeper for this note. * * Edits and ammendments created in [facility] are not visible * * in Patient Keeper or the legal medical record ([facility]). * Discharge Medication Reconciliation DISCHARGE MEDICATION LIST Amiodarone Tab (Cordarone Tab) Dose: 200 MG PO BID Apixaban Tab (Eliquis Tab) Dose: 5 MG PO BID Atorvastatin Tab (Lipitor Tab) Dose: 80 MG PO BEDTIME bumetanide tablet Dose: 1 MG PO BID 9A 5P HYDROcodone/APAP 5/325 Tab (Corinne 5/325 Tab) Dose: 1 TAB PO Q6H PRN pain scale 4-6 (use 1st) Lexapro tab (escitalopram oxalate) Dose: 20 MG PO DAILY Methocarbamol Tab (Robaxin Tab) Dose: 750 MG PO TID Metoprolol Tartrate Tab (Lopressor Tab) Dose: 12.5 MG PO Q12HR Pregabalin Cap (Lyrica Cap) Dose: 50 MG PO BID Thiamine Tab (Vitamin B-1 Tab) Dose: 100 MG PO DAILY Hosp: Amoxicillin/Clav 875/125 Tab (Augmentin 875/125 Tab) Dose: 875 MG PO BID, Disp: 28 tablet, Refills: 0 STOPPED HOSPITAL MEDICATIONS Dc'd: Acetaminophen Tab (Tylenol Tab) 650MG PO Q4H PRN pain 1-3/temp > 100.5/headacheDc'd: Albuterol/Ipratrop Neb Soln (Duoneb Neb Soln) 3ML NEB QOY3CAh'd: ALPRAZolam Tab (Xanax Tab) 1MG PO BID PRN agitation or anxietyDc'd: APAP/Caffeine/Butalbital Tab (Fioricet Tab) 1TAB PO Q6H PRN headacheDc'd: Azithromycin Tab (Zithromax Tab) 500MG PO DAILYDc'd: hydrALAZINE Inj (Apresoline Inj) 10MG IV Q6H PRN sbp greater than 180Dc'd: Ondansetron Inj (Zofran Inj) 4MG IV Q4H PRN nausea and vomitingDc'd: Piperacillin/Tazo Inj (Zosyn Inj) 3.375GM IV Q8HRin NS (Sodium Chloride 0.9%) 100ML (Total 100 ML) Dc'd: Sodium Chlor [place] 0.65% ([place]) 1SPRAY NASAL Q2H PRN nasal dryness at 1315 ATTENTION *EDITS and/or ADDENDA must be made in Patient Keeper for this note. * * Edits and ammendments created in [facility] are not visible * * in Patient Keeper or the legal medical record ([facility]). * RPT #: [id number] END OF REPORT [facility] 2024-05-20 13:15:00 [facility] ([facility]) Hospitalist D/C Summary REPORT #: [id number] REPORT STATUS: Signed DATE: 05/20/24 TIME: 1315 PATIENT: KOTA MONTESO UNIT #: [id number] ROOM #: NC.212 BED: 1 : 61 AGE: 63 SEX: M ATTEND: Josette Ley DO ADM AUTHOR: Josette Ley DO ATTENTION *EDITS and/or ADDENDA must be made in Patient Keeper for this note. * * Edits and ammendments created in [facility] are not visible * * in Patient Keeper or the legal medical record ([facility]). * Note Date: 05/20/24 13:15 -- PROBLEMS/PROCEDURES -- ADMISSION DATE: 05/16/2024 ADMITTING DIAGNOSIS: - Acute on chronic systolic (congestive) heart failure - Acute respiratory failure with hypoxia - AICD problem - Atrial fibrillation with RVR - CAD (coronary artery disease) - Full code status - Hyperlipidemia - Hypertension - ICD (implantable cardioverter-defibrillator) malfunction - Ischemic cardiomyopathy - Left bundle-branch block, unspecified - Medical non-compliance - On deep vein thrombosis (DVT) prophylaxis - Presence of automatic (implantable) cardiac defibrillator - Tobacco abuse - Unspecified atrial fibrillation - Acute hypoxic respiratory failure - Acute kidney injury - Anxiety disorder, unspecified - Heart failure, unspecified - Hypertensive heart disease with heart failure - Hyponatremia - Acute blood loss anemia - Acute CHF - Acute decompensated heart failure - Acute kidney failure, unspecified - Acute posthemorrhagic anemia - Acute respiratory failure with hypercapnia - Acute respiratory failure with hypoxia and hypercapnia - Anemia - Atherosclerotic heart disease of [place] coronary artery without angina pectoris - Cardiogenic shock - Flash pulmonary edema - Presence of aortocoronary bypass graft - Rheumatic disorders of both mitral and aortic valves - Systolic dysfunction with acute on chronic heart failure - Acute respiratory failure with hypoxia - Afib - CAD (coronary artery disease) - CHF (congestive heart failure) - Encounter for screening for COVID-19 - Headache - Hyponatremia - Pneumonia - Pneumonia, unspecified organism - Presence of automatic (implantable) cardiac defibrillator DISCHARGE DATE: 05/20/24 DISCHARGE DIAGNOSIS: - Acute on chronic systolic (congestive) heart failure - Acute respiratory failure with hypoxia - AICD problem - Atrial fibrillation with RVR - CAD (coronary artery disease) - Full code status - Hyperlipidemia - Hypertension - ICD (implantable cardioverter-defibrillator) malfunction - Ischemic cardiomyopathy - Left bundle-branch block, unspecified - Medical non-compliance - On deep vein thrombosis (DVT) prophylaxis - Presence of automatic (implantable) cardiac defibrillator - Tobacco abuse - Unspecified atrial fibrillation - Acute hypoxic respiratory failure - Acute kidney injury - Anxiety disorder, unspecified - Heart failure, unspecified - Hypertensive heart disease with heart failure - Hyponatremia - Acute respiratory failure with hypoxia - Afib - CAD (coronary artery disease) - CHF (congestive heart failure) - Encounter for screening for COVID-19 - Headache - Hyponatremia - Pneumonia - Pneumonia, unspecified organism - Presence of automatic (implantable) cardiac defibrillator -- HOSPITAL COURSE -- HOSPITAL COURSE: 63-year-old male past history significant hypertension, hyperlipidemia, coronary artery disease, CHF, CABG 06/2023 with AICD 01/01 presented to ED initial complaints of headache, shortness of breath some cough and subjective fevers. Patient was found to have a large left lobe pneumonia we will start an empiric antibiotic therapy. Pulmonology was consulted for assistance with management. Initially patient required high-dose oxygenation at 8 L/min via nasal cannula he was later able to wean down. Patient was noted to have hyponatremia due to excessive water intake nephrology was consulted for assessment and management. Strict fluid guidelines placed and patient sodium returns within baseline levels. CT chest was repeated due to concern of consolidation showed persistent consolidation left lobe consistent with pneumonia. Patient was cleared by pulmonology for discharge to continue on Augmentin twice daily x 2 weeks. He is instructed to follow-up closely with her PCP once discharged. -- DISCHARGE MEDICATIONS -- ALLERGIES - No Known Allergies ( UNKNOWN - Allergy ) DISCHARGE MEDICATIONS - Amiodarone Tab (Cordarone Tab) 200 MG PO BID - Amoxicillin/Clav 875/125 Tab (Augmentin 875/125 Tab) 875 MG PO BID, Disp: 28 tablet, Refills: 0 - Apixaban Tab (Eliquis Tab) 5 MG PO BID - Atorvastatin Tab (Lipitor Tab) 80 MG PO BEDTIME - bumetanide tablet 1 MG PO BID 9A 5P - Folic Acid Tab (Folvite Tab) 1 MG PO DAILY - HYDROcodone/APAP 5/325 Tab (Corinne 5/325 Tab) 1 TAB PO Q6H PRN pain scale 4-6 (use 1st) - Lexapro tab (escitalopram oxalate) 20 MG PO DAILY - Methocarbamol Tab (Robaxin Tab) 750 MG PO TID - Metoprolol Tartrate Tab (Lopressor Tab) 12.5 MG PO Q12HR - Mucinex DM 60 mg-1,200 mg tablet,extended release (dextromethorphan-guaifenesin) 1 TAB PO Q12H PRN congestion , Disp: 20 TABLETS, Refills: 0 - Pregabalin Cap (Lyrica Cap) 50 MG PO BID - Thiamine Tab (Vitamin B-1 Tab) 100 MG PO DAILY -- DISCHARGE INSTRUCTIONS -- PENDING LABS/TESTS AT DISCHARGE PENDING LABS:BASIC METABOLIC PANEL (05/19/24 02:03 - PENDING) UR CL RANDOM (05/18/24 12:18 - PENDING) UR K RANDOM (05/18/24 12:18 - PENDING) UR NA RANDOM (05/18/24 12:18 - PENDING) PENDING TESTS: none PK Discharge Orders DC Order - No eCQM 2019.2 Details: Discharge w/Instructions Details: Order number: [id number] Category: PKDC - PK Discharge Orders Order status: Transmitted Details: Yes Home/Self Care Resume Home Diet/Feeds As Tolerated In 1-2 weeks PCP Follow-Up Ordered by: Josette Ley DO May 20, 2024 1:15pm Entered by: Josette Ley DO Service date: May 20, 2024 1:15pm Emergency instructions: The patient was instructed to present to the nearest Emergency Department or call 911 should their symptoms return or worsen. ADDTIONAL DISCHARGE INSTRUCTIONS: Emergency Instructions: The patient was instructed to present to the nearest Emergency Department or call 911 should their symptoms return or worsen.; -- OBJECTIVE -- VITALS (05/19 13:15 - 05/20 13:15): Blood pressure source: Monitor Blood pressure: 118/62 (90/50 - 118/70) Respiratory rate: 17 (13 - 20) Temperature C: 37.1 (36.4 - 37.4) Temperature source: Oral Pulse Rate: 92 (80 - 105) I/OS (05/19 07:00-05/20 07:00): Net-3,200 [id number] Output3,700 Oral ml:500 Other urine ml:1,500 Void ml:2,200 EXAM: General: Well developed, well nourished, in no apparent distress. Head: Normocephalic, atraumatic. Nose: No deformity, no discharge, no inflammation, no lesions. Mouth: OMM Neck: Supple Lungs: Left side crackles fine. Good air entry b/l Heart: Regular rate and rhythm, normal S1, S2, no murmurs, ICD site is clean and dry Abdomen: Soft, non-tender, no organomegaly, no masses noted. Extremities: No clubbing, no cyanosis, no edema. Pulses: Pulses normal in all extremities. -- DATA -- ALLERGIES LAB RESULTS CBC W/AUTO DIFF (05/20/24 03:47) NUCLEATED RBC # 0 LYMPHOCYTE % 15.2 BASOPHIL # 0.04 IMMATURE GRANULOCYTE % 0.8 EOSINOPHIL # 0.15 NEUTROPHIL % 70.6 RED BLOOD CELL 4.23 L WHITE BLOOD CELL 6.6 IMMATURE GRANULOCYTE # 0.05 NEUTROPHIL # 4.66 NUCLEATED RBC % 0 BASOPHIL % 0.6 EOSINOPHIL % 2.3 MONOCYTE % 10.5 LYMPHOCYTE # 1 L PLATELET COUNT 264 RED CELL DISTRIBUTION WIDTH 13.6 MEAN CELL HGB CONCENTRATION 33.3 MEAN CELL HGB 30.5 MEAN CELL VOLUME 92 HEMATOCRIT 38.7L L HEMOGLOBIN 12.9L L MONOCYTE # 0.69 MEAN PLATELET VOLUME 10 BASIC METABOLIC PANEL (05/20/24 03:47) CALCIUM 9.5 CREATININE 1 BUN/CREATININE RATIO 16 BLOOD UREA NITROGEN 16 GLOMERULAR FILTRATION RATE >=60 max estimate ANION GAP 10.8 GLUCOSE 86 CHLORIDE 96L L CARBON DIOXIDE 32H H SODIUM 135L L POTASSIUM 4.1 at 1601 ATTENTION *EDITS and/or ADDENDA must be made in Patient Keeper for this note. * * Edits and ammendments created in [facility] are not [facility] * * in Patient Keeper or the legal medical record ([facility]). * RPT #: [id number] END OF REPORT [facility] 2024-05-20 08:45:00 [facility] ([facility]) Pulmonology Progress Note REPORT #: [id number] REPORT STATUS: Signed DATE: 05/20/24 TIME: 0845 PATIENT: KOTA MONTES UNIT #: [id number] ROOM #: NC.212 BED: 1 : 61 AGE: 63 SEX: M ATTEND: Josette Ley DO ADM AUTHOR: Bridger Ayala MD ATTENTION *EDITS and/or ADDENDA must be made in Patient Keeper for this note. * * Edits and ammendments created in [employer] are not visible * * in Patient Keeper or the legal medical record ([facility]). * Note Date: 05/20/24 08:45 -- ASSESSMENT/PLAN -- GENERAL ASSESSMENT: [facility] Pulmonary Consult Note Assessment: acute hypoxic respiratory failure Community acquired pneumonia chronic HFrEF Acute pulmonary edema COPD HTN HLD CAD Anxiety Former smoker PLAN: - Chest x-ray reviewed, CTA, negative for PE, PHUONG consolidation. No mediastinal LAD - Continue antibiotics, ceftriaxone and azithromycin, f/u cultures - check sputum culture - urine leg/strep - Supplemental oxygen to keep O2 saturation > 92%, currently on vapotherm 18L at 60% FiO2 - MRSA screen ordered - start bronchodilator, duonebs - Patient smoked for over 40 years 2 packs a day. Very significant smoking history and likely has underlying obstructive disease i.e. COPD. Discussed with patient needs PFTs and outpatient workup - Wean oxygen as able, should be able to wean to wall O2 at this time - Check CXR now - Obtain CT Chest now: PHUONG consolidation concerning for pneumonia - OK to DC home if weaned off oxygen. Recommend 2 weeks of augmentin PO on discharge. Needs continued outpatient follow-up to ensure resolution of opacities on imaging. Thank you for the consultation. We will follow with you. --------- Subjective: Events noted Patient seen and examined On 3L NC Patient reports breathing better today HPI: Mr Montes is a 63 y.o. male with past medical hx of HTN, HLD, CAD, CHF, CABG 06/25, AICD 01/01 presented to ED for shortness of breath, cough and subjective fever. Found to have large left pneumonia, started on abx. Pulmonary consulted for further evaluation. Currently on 8L NC, removed O2 to travel to restroom and had desaturations. no hemoptysis. Denies any chest pain. No recent travel or ill contacts. Thank you for this consultation. We will follow with you. Please call for any concerns. Past medical history: HTN, HLD, CAD, CHF, afib PSurgHx: CABG in June 2023, PCI with stent , Multiple intubations FamHx: nc SocHx: ETOH quit June 2023, Ex smoker 2pk/40 yrs, recently quit vaping Review of systems: 14 point review of system negative unless listed above Physical Exam General: NAD Eyes: Anicteric sclerae. Mouth: MMM Neck: Supple. CV: Paced. Normal S1 and S2. Pulm: Good effort, decreased BS, no wheezing Abdomen: Soft, nontender. Extremities: Trace lower extremity edema. Skin: Warm, dry. Neuro: Awake, no gross deficits Psych: good affect -- EXAM -- VITALS (05/19 08:46 - 05/20 08:46): Respiratory rate: 17 (13 - 20) Blood pressure: 118/62 (90/50 - 118/70) Temperature C: 37.1 (36.4 - 37.4) Temperature source: Oral Pulse Rate: 92 (80 - 105) Blood pressure source: Monitor IOS (05/19 07:00-05/20 07:00): Net-3,200 [id number] Output3,700 Oral ml:500 Other urine ml:1,500 Void ml:2,200 -- DATA -- MEDICATIONS ONDANSETRON HCL/PF 4 MG IV Q4H PRN HYDROcodone BITARTRATE/APAP 1 TAB PO Q4H PRN ATORVASTATIN CALCIUM 80 MG PO BEDTIME CITALOPRAM 40 MG PO DAILY hydrALAZINE HCL 10 MG IV Q6H PRN PIPERAC/TAZOBACTAM with/in SODIUM CHLORIDE 100 mL BAG 3.375 GM IV Q8HR METOPROLOL TARTRATE 12.5 MG PO Q12HR ACETAMINOPHEN 650 MG PO Q4H PRN IPRATROPIUM/ALBUTEROL SULFATE 3 ML NEB RTQ6H THIAMINE HCL 100 MG PO DAILY AZITHROMYCIN 500 MG PO DAILY LORazepam 0.5 MG PO Q8H PRN APAP/CAFFEIN/BUTALBITAL 1 TAB PO Q6H PRN SODIUM CHLORIDE 0.65% 1 SPRAY NASAL Q2H PRN APIXABAN 5 MG PO Q12HR PREGABALIN 50 MG PO BID AMIODARONE HCL 200 MG PO BID LAB RESULTS CBC W/AUTO DIFF (05/20/24 03:47) NUCLEATED RBC # 0 LYMPHOCYTE % 15.2 BASOPHIL # 0.04 IMMATURE GRANULOCYTE % 0.8 EOSINOPHIL # 0.15 NEUTROPHIL % 70.6 RED BLOOD CELL 4.23 L WHITE BLOOD CELL 6.6 IMMATURE GRANULOCYTE # 0.05 NEUTROPHIL # 4.66 NUCLEATED RBC % 0 BASOPHIL % 0.6 EOSINOPHIL % 2.3 MONOCYTE % 10.5 LYMPHOCYTE # 1 L PLATELET COUNT 264 RED CELL DISTRIBUTION WIDTH 13.6 MEAN CELL HGB CONCENTRATION 33.3 MEAN CELL HGB 30.5 MEAN CELL VOLUME 92 HEMATOCRIT 38.7L L HEMOGLOBIN 12.9L L MONOCYTE # 0.69 MEAN PLATELET VOLUME 10 BASIC METABOLIC PANEL (05/20/24 03:47) CALCIUM 9.5 CREATININE 1 BUN/CREATININE RATIO 16 BLOOD UREA NITROGEN 16 GLOMERULAR FILTRATION RATE >=60 max estimate ANION GAP 10.8 GLUCOSE 86 CHLORIDE 96L L CARBON DIOXIDE 32H H SODIUM 135L L POTASSIUM 4.1 at 1233 ATTENTION *EDITS and/or ADDENDA must be made in Patient Keeper for this note. * * Edits and ammendments created in [employer] are not visible * * in Patient Keeper or the legal medical record ([facility]). * RPT #: [id number] END OF REPORT [facility] 2024-05-20 07:53:00 [facility] ([facility]) Nephrology Progress Note REPORT #: [id number] REPORT STATUS: Signed DATE: 05/20/24 TIME: 075 PATIENT: KOTA MONTES UNIT #: [id number] ROOM #: NC.212 BED: 1 : 61 AGE: 63 SEX: M ATTEND: Josette Ley DO ADM AUTHOR: Kartik Ayala MD ATTENTION *EDITS and/or ADDENDA must be made in Patient Keeper for this note. * * Edits and ammendments created in [employer] are not visible * * in Patient Keeper or the legal medical record ([facility]). * Note Date: 05/20/24 07:53 -- ASSESSMENT/PLAN -- GENERAL ASSESSMENT: Hyponatremia Excess ADH state given pulmonary pathology; possibly hypervolemic related given degree of cardiac dysfunction Acute hypoxic respiratory failure On NC o2 Pneumonia CHF CAD S/p CABG Afib Plan Labs and imaging noted S/p tolvaptan; improved hyponatremia, ok for level of correction, treated as acute hyponatremia Restarted his home bumex Increase protein intake; discussed with RN, c/w15-30 gm of protein/day Low sodium diet Avoid NSAIDs Will monitor vitals, volume status, renal clearance and electrolyte/acid-base derangements Ok to dc from nephrology standpoint if otherwise cleared -- SUBJECTIVE -- PATIENT NARRATIVE: Patient seen and examined at bedside No acute distress BP noted; low normotensive UOP maintained Afebrile -- EXAM -- VITALS (05/19 07:53 - 05/20 07:53): Blood pressure: 93/55 (90/50 - 120/71) Blood pressure source: Monitor Respiratory rate: 20 (13 - 20) Temperature source: Oral Temperature C: 36.7 (36.4 - 37.4) Pulse Rate: 83 (80 - 105) IOS (05/19 07:00-05/20 07:00): Net-3,200 [id number] Output3,700 Oral ml:500 Other urine ml:1,500 Void ml:2,200 -- DATA -- MEDICATIONS ONDANSETRON HCL/PF 4 MG IV Q4H PRN HYDROcodone BITARTRATE/APAP 1 TAB PO Q4H PRN ATORVASTATIN CALCIUM 80 MG PO BEDTIME CITALOPRAM 40 MG PO DAILY hydrALAZINE HCL 10 MG IV Q6H PRN PIPERAC/TAZOBACTAM with/in SODIUM CHLORIDE 100 mL BAG 3.375 GM IV Q8HR METOPROLOL TARTRATE 12.5 MG PO Q12HR ACETAMINOPHEN 650 MG PO Q4H PRN IPRATROPIUM/ALBUTEROL SULFATE 3 ML NEB RTQ6H THIAMINE HCL 100 MG PO DAILY AZITHROMYCIN 500 MG PO DAILY LORazepam 0.5 MG PO Q8H PRN APAP/CAFFEIN/BUTALBITAL 1 TAB PO Q6H PRN SODIUM CHLORIDE 0.65% 1 SPRAY NASAL Q2H PRN APIXABAN 5 MG PO Q12HR PREGABALIN 50 MG PO BID AMIODARONE HCL 200 MG PO BID LAB RESULTS CBC W/AUTO DIFF (05/20/24 03:47) NUCLEATED RBC # 0 LYMPHOCYTE % 15.2 BASOPHIL # 0.04 IMMATURE GRANULOCYTE % 0.8 EOSINOPHIL # 0.15 NEUTROPHIL % 70.6 RED BLOOD CELL 4.23 L WHITE BLOOD CELL 6.6 IMMATURE GRANULOCYTE # 0.05 NEUTROPHIL # 4.66 NUCLEATED RBC % 0 BASOPHIL % 0.6 EOSINOPHIL % 2.3 MONOCYTE % 10.5 LYMPHOCYTE # 1 L PLATELET COUNT 264 RED CELL DISTRIBUTION WIDTH 13.6 MEAN CELL HGB CONCENTRATION 33.3 MEAN CELL HGB 30.5 MEAN CELL VOLUME 92 HEMATOCRIT 38.7L L HEMOGLOBIN 12.9L L MONOCYTE # 0.69 MEAN PLATELET VOLUME 10 BASIC METABOLIC PANEL (05/20/24 03:47) CALCIUM 9.5 CREATININE 1 BUN/CREATININE RATIO 16 BLOOD UREA NITROGEN 16 GLOMERULAR FILTRATION RATE >=60 max estimate ANION GAP 10.8 GLUCOSE 86 CHLORIDE 96L L CARBON DIOXIDE 32H H SODIUM 135L L POTASSIUM 4.1 VITALS Temperature C: 05/20/24 03:53 36.7 05/20/24 03:00 05/20/24 02:00 05/19/24 23:35 36.7 05/19/24 20:35 36.4 05/19/24 20:00 05/19/24 19:16 05/19/24 16:10 37.4 05/19/24 12:13 37.0 05/19/24 08:23 Pulse Rate 05/20/24 03:53 83 05/20/24 03:00 80 05/20/24 02:00 80 05/19/24 23:35 80 05/19/24 20:35 101 05/19/24 20:00 05/19/24 19:16 05/19/24 16:10 105 05/19/24 12:13 80 05/19/24 08:23 Respiratory rate: 05/20/24 03:53 20 05/20/24 03:00 17 05/20/24 02:00 13 05/19/24 23:35 17 05/19/24 20:35 20 05/19/24 20:00 05/19/24 19:16 05/19/24 16:10 18 05/19/24 12:13 18 05/19/24 08:23 Blood pressure: 03/19/25 03:53 93 / 55 05/20/24 03:00 93 / 55 05/20/24 02:00 92 / 58 05/19/24 23:35 90 / 50 05/19/24 20:35 115 / 64 05/19/24 20:00 05/19/24 19:16 05/19/24 16:10 112 / 70 05/19/24 12:13 99 / 64 05/19/24 08:23 SPO2 %: 05/20/24 03:53 94 05/20/24 03:00 95 05/20/24 02:00 97 05/19/24 23:35 94 05/19/24 20:35 93 05/19/24 20:00 05/19/24 19:16 98 05/19/24 16:10 96 05/19/24 12:13 97 05/19/24 08:23 95 O2 Liters per minute: 05/20/24 03:53 3 05/20/24 03:00 05/20/24 02:00 05/19/24 23:35 05/19/24 20:35 1 05/19/24 20:00 3 05/19/24 19:16 3 05/19/24 16:10 05/19/24 12:13 05/19/24 08:23 4 Oxygen delivery devices: 05/20/24 03:53 Nasal cannula 05/20/24 03:00 05/20/24 02:00 05/19/24 23:35 Nasal cannula 05/19/24 20:35 Nasal cannula 05/19/24 20:00 High flow nasal cannula 05/19/24 19:16 High flow nasal cannula 05/19/24 16:10 Nasal cannula 05/19/24 12:13 Nasal cannula 05/19/24 08:23 Nasal cannula at 1137 ATTENTION *EDITS and/or ADDENDA must be made in Patient Keeper for this note. * * Edits and ammendments created in [employer] are not visible * * in Patient Keeper or the legal medical record ([facility]). * RPT #: [id number] END OF REPORT [facility] 2024-05-19 12:25:00 [facility] ([facility]) Hospitalist Progress Note REPORT #: [id number] REPORT STATUS: Signed DATE: 05/19/24 TIME: 1225 PATIENT: KOTA MONTES UNIT #: [id number] ROOM #: NC.212 BED: 1 : 61 AGE: 63 SEX: M ATTEND: Josette Ley DO ADM AUTHOR: Josette Ley DO ATTENTION *EDITS and/or ADDENDA must be made in Patient Keeper for this note. * * Edits and ammendments created in [employer] are not visible * * in Patient Keeper or the legal medical record ([facility]). * Note Date: 05/19/24 12:25 -- ASSESSMENT/PLAN -- ASSESSMENT / PLAN: 1: Acute respiratory failure with hypoxia A/P: 2/2 pneumonia and COPD Duonebs scheduled Follow-up sputum cx legionella urine Ag neg Solumedrol IV x 1 on 05/17 Switched from rocephin to zosyn on 05/17 azithromycin x 3 days Pulm Appreciate 2: Pneumonia A/P: s/p azithromycin x 3 days Switched to zosyn on 05/17 3: Headache A/P: POA CT head unremarkable. No focal neuro symptoms. ? tension headache or withdrawal from trazodone os cervical radiculopathy Unable to obtain MRI due to presence of ICD CT C spine unremarkable. Symptoms improved. Continue prn fioricet and prn norco. 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 pt does not appear fluid overloaded off diuretic Nephrology consulted Fluid restriction for patient; as he drinks a lot of water Starting tolvaptan x 1 Holding diuretics and okay to resume Bumex tomorrow Plasma levels pending 5: CHF (congestive heart failure) A/P: not in exacerbation. 6: Presence of automatic (implantable) cardiac defibrillator A/P: in paced rhythm 7: CAD (coronary artery disease) A/P: Continue home meds 8: Afib A/P: Continue eliquis for CVA ppx On amiodarone and metoprolol. Cont teemetry as pt at risk of prolonged QTC with use of amiodarone with azithromycin -- SUBJECTIVE -- PATIENT NARRATIVE: Patient seen resting in bed no acute distress Discussed with patient's nurse who stated patient is asking to be discharged Follow-up with patient in discussed reasons for continued hospitalization including abnormal labs and pending consultation -- EXAM -- VITALS (05/18 12:25 - 05/19 12:25): Blood pressure source: Monitor Respiratory rate: 18 (13 - 23) Temperature C: 37.0 (36.4 - 37.0) Pulse Rate: 80 (80 - 95) Temperature source: Oral Blood pressure: 99/64 (99/57 - 120/71) IOS (05/18 07:00-05/19 07:00): Net-350 [id number] Number of incontinent voids:4 Oral ml:600 Void ml:950 EXAM: General Well developed, well nourished, in no apparent distress. Head Normocephalic, atraumatic. Nose No deformity, no discharge, no inflammation, no lesions. Mouth OMM Neck Supple Lungs Left side crackles fine. Good air entry b/l Heart Regular rate and rhythm, normal S1, S2, no murmurs, ICD site is clean and dry Abdomen Soft, non-tender, no organomegaly, no masses noted. Extremities No clubbing, no cyanosis, no edema. Pulses Pulses normal in all extremities. -- DATA -- MEDICATIONS ONDANSETRON HCL/PF 4 MG IV Q4H PRN HYDROcodone BITARTRATE/APAP 1 TAB PO Q4H PRN ATORVASTATIN CALCIUM 80 MG PO BEDTIME CITALOPRAM 40 MG PO DAILY hydrALAZINE HCL 10 MG IV Q6H PRN PIPERAC/TAZOBACTAM with/in SODIUM CHLORIDE 100 mL BAG 3.375 GM IV Q8HR METOPROLOL TARTRATE 12.5 MG PO Q12HR ACETAMINOPHEN 650 MG PO Q4H PRN IPRATROPIUM/ALBUTEROL SULFATE 3 ML NEB RTQ6H THIAMINE HCL 100 MG PO DAILY AZITHROMYCIN 500 MG PO DAILY LORazepam 0.5 MG PO Q8H PRN APAP/CAFFEIN/BUTALBITAL 1 TAB PO Q6H PRN SODIUM CHLORIDE 0.65% 1 SPRAY NASAL Q2H PRN APIXABAN 5 MG PO Q12HR PREGABALIN 50 MG PO BID AMIODARONE HCL 200 MG PO BID LAB RESULTS BASIC METABOLIC PANEL (05/19/24 02:03) CREATININE 1.0 GLOMERULAR FILTRATION RATE >=60 max estimate BUN/CREATININE RATIO 16.0 ANION GAP 8.8 D CARBON DIOXIDE 29 BLOOD UREA NITROGEN 16 GLUCOSE 114H H SODIUM 121L L CALCIUM 9.2 CHLORIDE 87L L POTASSIUM 3.8 CBC W/AUTO DIFF (05/19/24 02:03) HEMATOCRIT 36.5L L MEAN CELL VOLUME 90 RED BLOOD CELL 4.04 L HEMOGLOBIN 12.4L L RED CELL DISTRIBUTION WIDTH 13.2 LYMPHOCYTE # 0.97 L PLATELET COUNT 229 MEAN CELL HGB 30.7 MEAN CELL HGB CONCENTRATION 34.0 BASOPHIL # 0.03 IMMATURE GRANULOCYTE % 0.5 NUCLEATED RBC # 0.000 LYMPHOCYTE % 9.8 L MONOCYTE # 0.92 H MEAN PLATELET VOLUME 9.7 EOSINOPHIL # 0.02 NEUTROPHIL % 79.9 H NEUTROPHIL # 7.95 H WHITE BLOOD CELL 9.9 IMMATURE GRANULOCYTE # 0.050 EOSINOPHIL % 0.2 MONOCYTE % 9.3 NUCLEATED RBC % 0.0 BASOPHIL % 0.3 at 1228 ATTENTION *EDITS and/or ADDENDA must be made in Patient Keeper for this note. * * Edits and ammendments created in [facility] are not visible * * in Patient Keeper or the legal medical record (HPF). * RPT #: [id number] END OF REPORT [facility] 2024-05-19 11:40:00 [facility] ([facility]) Nephrology Progress Note REPORT #: [id number] REPORT STATUS: Signed DATE: 05/19/24 TIME: 1140 PATIENT: KOTA MONTES UNIT #: [id number] ROOM #: NC.212 BED: 1 : 61 AGE: 63 SEX: M ATTEND: Josette Ley DO ADM AUTHOR: Kartik Ayala MD ATTENTION *EDITS and/or ADDENDA must be made in Patient Keeper for this note. * * Edits and ammendments created in [employer] are not visible * * in Patient Keeper or the legal medical record (HPF). * Note Date: 05/19/24 11:40 -- ASSESSMENT/PLAN -- GENERAL ASSESSMENT: Hyponatremia Excess ADH state given pulmonary pathology; possibly hypervolemic related given degree of cardiac dysfunction Acute hypoxic respriatory failure On NC o2 Pneumonia CHF CAD S/p CABG Afib Plan Labs and imaging noted Hyponatremia worse; he's drinking a lot of water. Discussed fluid restriction again, only sips when he urinates. Holding loop diuretic today, will give a dose of tolvaptan; can plan to restart his home bumex again tomorrow Pending osmo levels Increase protein intake; discussed with RN, will order extra 15-30 gm of protein/day Low sodium diet Avoid NSAIDs Will monitor vitals, volume status, renal clearance and electrolyte/acid-base derangements -- SUBJECTIVE -- PATIENT NARRATIVE: Patient seen and examined at bedside No acute distress BP noted UOP maintained Afebrile Hyponatremai noted; worse. He's drinking lots of fluids REVIEW OF SYSTEMS: Comment 14 point ROS was reviewed and negative except as stated above -- EXAM -- VITALS (05/18 11:40 - 05/19 11:40): Blood pressure: 120/71 (99/57 - 120/71) Blood pressure source: Monitor Respiratory rate: 17 (13 - 23) Temperature C: 36.4 (36.4 - 36.8) Pulse Rate: 82 (80 - 95) Temperature source: Oral IOS (05/18 07:00-05/19 07:00): Net-350 [id number] Number of incontinent voids:4 Oral ml:600 Void ml:950 -- DATA -- MEDICATIONS ONDANSETRON HCL/PF 4 MG IV Q4H PRN HYDROcodone BITARTRATE/APAP 1 TAB PO Q4H PRN ATORVASTATIN CALCIUM 80 MG PO BEDTIME CITALOPRAM 40 MG PO DAILY hydrALAZINE HCL 10 MG IV Q6H PRN PIPERAC/TAZOBACTAM with/in SODIUM CHLORIDE 100 mL BAG 3.375 GM IV Q8HR METOPROLOL TARTRATE 12.5 MG PO Q12HR ACETAMINOPHEN 650 MG PO Q4H PRN IPRATROPIUM/ALBUTEROL SULFATE 3 ML NEB RTQ6H THIAMINE HCL 100 MG PO DAILY AZITHROMYCIN 500 MG PO DAILY LORazepam 0.5 MG PO Q8H PRN APAP/CAFFEIN/BUTALBITAL 1 TAB PO Q6H PRN SODIUM CHLORIDE 0.65% 1 SPRAY NASAL Q2H PRN APIXABAN 5 MG PO Q12HR PREGABALIN 50 MG PO BID AMIODARONE HCL 200 MG PO BID LAB RESULTS BASIC METABOLIC PANEL (05/19/24 02:03) CREATININE 1.0 GLOMERULAR FILTRATION RATE >=60 max estimate BUN/CREATININE RATIO 16.0 ANION GAP 8.8 D CARBON DIOXIDE 29 BLOOD UREA NITROGEN 16 GLUCOSE 114H H SODIUM 121L L CALCIUM 9.2 CHLORIDE 87L L POTASSIUM 3.8 CBC W/AUTO DIFF (05/19/24 02:03) HEMATOCRIT 36.5L L MEAN CELL VOLUME 90 RED BLOOD CELL 4.04 L HEMOGLOBIN 12.4L L RED CELL DISTRIBUTION WIDTH 13.2 LYMPHOCYTE # 0.97 L PLATELET COUNT 229 MEAN CELL HGB 30.7 MEAN CELL HGB CONCENTRATION 34.0 BASOPHIL # 0.03 IMMATURE GRANULOCYTE % 0.5 NUCLEATED RBC # 0.000 LYMPHOCYTE % 9.8 L MONOCYTE # 0.92 H MEAN PLATELET VOLUME 9.7 EOSINOPHIL # 0.02 NEUTROPHIL % 79.9 H NEUTROPHIL # 7.95 H WHITE BLOOD CELL 9.9 IMMATURE GRANULOCYTE # 0.050 EOSINOPHIL % 0.2 MONOCYTE % 9.3 NUCLEATED RBC % 0.0 BASOPHIL % 0.3 VITALS Temperature C: 05/19/24 08:23 05/19/24 07:58 36.4 05/19/24 07:39 05/19/24 05:59 05/19/24 04:24 36.8 05/19/24 00:18 36.8 05/19/24 00:16 05/18/24 20:00 05/18/24 19:36 36.4 05/18/24 16:00 Pulse Rate 05/19/24 08:23 05/19/24 07:58 82 05/19/24 07:39 05/19/24 05:59 81 05/19/24 04:24 82 05/19/24 00:18 80 05/19/24 00:16 05/18/24 20:00 05/18/24 19:36 95 05/18/24 16:00 Respiratory rate: 05/19/24 08:23 05/19/24 07:58 17 05/19/24 07:39 05/19/24 05:59 22 05/19/24 04:24 19 05/19/24 00:18 19 05/19/24 00:16 05/18/24 20:00 05/18/24 19:36 20 05/18/24 16:00 Blood pressure: 05/19/24 08:23 05/19/24 07:58 120 / 71 05/19/24 07:39 05/19/24 05:59 05/19/24 04:24 110 / 57 05/19/24 00:18 110 / 68 05/19/24 00:16 05/18/24 20:00 05/18/24 19:36 114 / 65 05/18/24 16:00 SPO2 %: 05/19/24 08:23 95 05/19/24 07:58 97 05/19/24 07:39 05/19/24 05:59 95 05/19/24 04:24 100 05/19/24 00:18 99 05/19/24 00:16 98 05/18/24 20:00 05/18/24 19:36 100 05/18/24 16:00 O2 Liters per minute: 05/19/24 08:23 4 05/19/24 07:58 05/19/24 07:39 6 05/19/24 05:59 05/19/24 04:24 05/19/24 00:18 05/19/24 00:16 3 05/18/24 20:00 8 05/18/24 19:36 05/18/24 16:00 8 Oxygen delivery devices: 05/19/24 08:23 Nasal cannula 05/19/24 07:58 Nasal cannula 05/19/24 07:39 High flow nasal cannula 05/19/24 05:59 05/19/24 04:24 05/19/24 00:18 05/19/24 00:16 Nasal cannula 05/18/24 20:00 High flow nasal cannula 05/18/24 19:36 05/18/24 16:00 High flow nasal cannula FiO2%: 05/19/24 08:23 05/19/24 07:58 05/19/24 07:39 05/19/24 05:59 05/19/24 04:24 05/19/24 00:18 05/19/24 00:16 32 05/18/24 20:00 05/18/24 19:36 05/18/24 16:00 at 1142 ATTENTION *EDITS and/or ADDENDA must be made in Patient Keeper for this note. * * Edits and ammendments created in [facility] are not visible * * in Patient Keeper or the legal medical record (HPF). * RPT #: [id number] END OF REPORT [facility] 2024-05-19 08:43:00 [facility] ([facility]) Pulmonology Progress Note REPORT #: [id number] REPORT STATUS: Signed DATE: 05/19/24 TIME: 842 PATIENT: KOTA MONTES UNIT #: [id number] ROOM #: NC.212 BED: 1 : 61 AGE: 63 SEX: M ATTEND: Josette Ley DO ADM AUTHOR: Bridger Ayala MD ATTENTION *EDITS and/or ADDENDA must be made in Patient Keeper for this note. * * Edits and ammendments created in [employer] are not visible * * in Patient Keeper or the legal medical record (HPF). * Note Date: 05/19/24 08:43 -- ASSESSMENT/PLAN -- GENERAL ASSESSMENT: [facility] Pulmonary Consult Note Assessment: acute hypoxic respiratory failure Community acquired pneumonia chronic HFrEF Acute pulmonary edema COPD HTN HLD CAD Anxiety Former smoker PLAN: - Chest x-ray reviewed, CTA, negative for PE, PHUONG consolidation. No mediastinal LAD - Continue antibiotics, ceftriaxone and azithromycin, f/u cultures - check sputum culture - urine leg/strep - Supplemental oxygen to keep O2 saturation > 92%, currently on vapotherm 18L at 60% FiO2 - MRSA screen ordered - start bronchodilator, duonebs - Patient smoked for over 40 years 2 packs a day. Very significant smoking history and likely has underlying obstructive disease i.e. COPD. Discussed with patient needs PFTs and outpatient workup - Wean oxygen as able, should be able to wean to wall O2 at this time - Check CXR now - Low threshold to obtain CT chest Thank you for the consultation. We will follow with you. --------- Subjective: Events noted Patient seen and examined On 4L NC Patient reports breathing better today HPI: Mr Montes is a 63 y.o. male with past medical hx of HTN, HLD, CAD, CHF, CABG 06/25, AICD 01/01 presented to ED for shortness of breath, cough and subjective fever. Found to have large left pneumonia, started on abx. Pulmonary consulted for further evaluation. Currently on 8L NC, removed O2 to travel to restroom and had desaturations. no hemoptysis. Denies any chest pain. No recent travel or ill contacts. Thank you for this consultation. We will follow with you. Please call for any concerns. Past medical history: HTN, HLD, CAD, CHF, afib PSurgHx: CABG in June 2023, PCI with stent , Multiple intubations FamHx: nc SocHx: ETOH quit June 2023, Ex smoker 2pk/40 yrs, recently quit vaping Review of systems: 14 point review of system negative unless listed above Physical Exam General: NAD Eyes: Anicteric sclerae. Mouth: MMM Neck: Supple. CV: Paced. Normal S1 and S2. Pulm: Good effort, decreased BS, no wheezing Abdomen: Soft, nontender. Extremities: Trace lower extremity edema. Skin: Warm, dry. Neuro: Awake, no gross deficits Psych: good affect -- EXAM -- VITALS (05/18 08:43 - 05/19 08:43): Blood pressure: 120/71 (99/57 - 120/82) Respiratory rate: 17 (13 - 23) Blood pressure source: Monitor Temperature source: Oral Temperature C: 36.4 (36.4 - 36.9) Pulse Rate: 82 (80 - 96) IOS (05/18 07:00-05/19 07:00): Net-350 [id number] Number of incontinent voids:4 Oral ml:600 Void ml:950 -- DATA -- MEDICATIONS ONDANSETRON HCL/PF 4 MG IV Q4H PRN HYDROcodone BITARTRATE/APAP 1 TAB PO Q4H PRN ATORVASTATIN CALCIUM 80 MG PO BEDTIME CITALOPRAM 40 MG PO DAILY hydrALAZINE HCL 10 MG IV Q6H PRN PIPERAC/TAZOBACTAM with/in SODIUM CHLORIDE 100 mL BAG 3.375 GM IV Q8HR METOPROLOL TARTRATE 12.5 MG PO Q12HR ACETAMINOPHEN 650 MG PO Q4H PRN IPRATROPIUM/ALBUTEROL SULFATE 3 ML NEB RTQ6H THIAMINE HCL 100 MG PO DAILY AZITHROMYCIN 500 MG PO DAILY LORazepam 0.5 MG PO Q8H PRN APAP/CAFFEIN/BUTALBITAL 1 TAB PO Q6H PRN SODIUM CHLORIDE 0.65% 1 SPRAY NASAL Q2H PRN APIXABAN 5 MG PO Q12HR PREGABALIN 50 MG PO BID AMIODARONE HCL 200 MG PO BID LAB RESULTS BASIC METABOLIC PANEL (05/19/24 02:03) CREATININE 1 GLOMERULAR FILTRATION RATE >=60 max estimate BUN/CREATININE RATIO 16 ANION GAP 8.8 D CARBON DIOXIDE 29 BLOOD UREA NITROGEN 16 GLUCOSE 114H H SODIUM 121L L CALCIUM 9.2 CHLORIDE 87L L POTASSIUM 3.8 CBC W/AUTO DIFF (05/19/24 02:03) HEMATOCRIT 36.5L L MEAN CELL VOLUME 90 RED BLOOD CELL 4.04 L HEMOGLOBIN 12.4L L RED CELL DISTRIBUTION WIDTH 13.2 LYMPHOCYTE # 0.97 L PLATELET COUNT 229 MEAN CELL HGB 30.7 MEAN CELL HGB CONCENTRATION 34 BASOPHIL # 0.03 IMMATURE GRANULOCYTE % 0.5 NUCLEATED RBC # 0 LYMPHOCYTE % 9.8 L MONOCYTE # 0.92 H MEAN PLATELET VOLUME 9.7 EOSINOPHIL # 0.02 NEUTROPHIL % 79.9 H NEUTROPHIL # 7.95 H WHITE BLOOD CELL 9.9 IMMATURE GRANULOCYTE # 0.05 EOSINOPHIL % 0.2 MONOCYTE % 9.3 NUCLEATED RBC % 0 BASOPHIL % 0.3 at 1228 ATTENTION *EDITS and/or ADDENDA must be made in Patient Keeper for this note. * * Edits and ammendments created in [facility] are not visible * * in Patient Keeper or the legal medical record ([facility]). * RPT #: [id number] END OF REPORT [facility] 2024-05-18 17:48:00 [facility] ([facility]) Neurology Progress Note REPORT #: [id number] REPORT STATUS: Signed DATE: 05/18/24 TIME: 1748 PATIENT: KOTA MONTES UNIT #: [id number] ROOM #: NC.212 BED: 1 : 61 AGE: 63 SEX: M ATTEND: Josette Ley DO ADM AUTHOR: Neftali Ayala MD ATTENTION *EDITS and/or ADDENDA must be made in Patient Keeper for this note. * * Edits and ammendments created in [employer] are not visible * * in Patient Keeper or the legal medical record ([facility]). * Note Date: 05/18/24 17:48 -- ASSESSMENT AND PLAN -- GENERAL ASSESSMENT: Headache with neck pain, improved Pneumonia -CT head: No acute intracranial abnormality -CT cervical spine: No acute fracture of the cervical spine. Moderate to advanced degenerative findings, described above, with grade 2 anterolisthesis of C4 on C5. Chronic appearing fracture deformity of the left lateral first rib. -Recommend orthopedic spine consultation for cervical spine findings on CT -Telemetry/EKG -Labs: WBC 9.2, hemoglobin 13.5, platelet 217, sodium 124, potassium 3.9, BUN 13, creatinine 1.0 COVID-19 negative, LDL 121, HDL 67, cholesterol 217, triglyceride 243 -Continue tizanidine 4 mg 3 times a day -Will defer narcotics to primary/or pain management team -Pulmonary following, appreciate recommendations. -PT/OT/speech -The patient need to follow-up with an outpatient neurologist 2-3 weeks after discharge ASSESSMENT / PLAN: ADDITIONAL COMMENTS: No further workup from general neurology standpoint. -- SUBJECTIVE -- CHIEF COMPLAINT: I feel better HPI: 61-year-old male with past ministry of hypertension, hyperlipidemia, CAD, CHF, CABG 06/25, AICD 01/01 presented to [facility] due to shortness of breath and subjective fever. He was found to have large left-sided pneumonia and was started on antibiotics. Neurology has been consulted for headache. He has headache and neck pain. Headache has improved today only 07/11. REVIEW OF SYSTEMS: Comment Complete review of systems were examined and all were negative except for what is stated in above HPI. -- EXAM -- EXAM: Other: General: 63-year-old male lying in hospital bed in no acute distress Head: Atraumatic, normocephalic Eyes: Conjugate gaze Ears: Hearing preserved to conversation Nose: No epistaxis Mouth: No facial droop Neck: Soft Chest: Appeared normal Lungs: On nasal cannula Heart: S1, S2 Abdomen: Nondistended MSK: No obvious deformities Extremities: No peripheral edema Pulses: Peripheral pulses intact Skin: No obvious rashes -- NEURO EXAM -- NEURO EXAM: Other: He is alert, awake, oriented x 3 Speech is nondysarthric Language is not aphasic Pupils 2 mm bilaterally and equally reactive to light and accommodation EOMI No nystagmus Symmetric smile Tongue protrudes to midline No pronator drift bilaterally Strength 5/5 of bilateral upper and lower extremities to flexion extension [id number] intact bilaterally Gait deferred at 1754 ATTENTION *EDITS and/or ADDENDA must be made in Patient Keeper for this note. * * Edits and ammendments created in [employer] are not visible * * in Patient Keeper or the legal medical record ([facility]). * RPT #: [id number] END OF REPORT [facility] 2024-05-18 13:53:00 [facility] ([facility]) Hospitalist Progress Note REPORT #: [id number] REPORT STATUS: Signed DATE: 05/18/24 TIME: 1353 PATIENT: KOTA MONTES UNIT #: [id number] ROOM #: NC.212 BED: 1 : 61 AGE: 63 SEX: M ATTEND: Josette Ley DO ADM AUTHOR: Cheryl Castillo MD ATTENTION *EDITS and/or ADDENDA must be made in Patient Keeper for this note. * * Edits and ammendments created in [employer] are not visible * * in Patient Keeper or the legal medical record ([facility]). * Note Date: 05/18/24 13:53 -- ASSESSMENT/PLAN -- ASSESSMENT / PLAN: 1: Acute respiratory failure with hypoxia A/P: Likely 2/2 pneumonia and COPD Duonebs scheduled Check sputum cx legionella urine Ag neg Solumedrol IV x 1 on 05/17 Switched from rocephin to zosyn on 05/17 azithromycin x 3 days Pulm consult appreciated 2: Pneumonia A/P: s/p azithromycin x 3 days Switched to zosyn on 05/17 3: Headache A/P: POA CT head unremarkable. No focal neuro symptoms. ? tension headache or withdrawal from trazodone os cervical radiculopathy Unable to obtain MRI due to presence of ICD CT C spine unremarkable. Symptoms improved. Continue prn fioricet and prn norco. 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 pt doesnot appear fluid overloaded off diuretic Nephrology consulted repeat labs in AM 5: CHF (congestive heart failure) A/P: not in exacerbation. 6: Presence of automatic (implantable) cardiac defibrillator A/P: in paced rhythm 7: CAD (coronary artery disease) A/P: Continue home meds 8: Afib A/P: Continue eliquis for CVA ppx On amiodarone and metoprolol. Cont teemetry as pt at risk of prolonged QTC with use of amiodarone with azithromycin -- SUBJECTIVE -- PATIENT NARRATIVE: Pt became hypoxic last night and his oxygen requirement increased. He was transfered to IMU for closer monitorind and placed on high flow O2. gave solumedrol x 1, switched from ceftriaxone to zosyn Pt feeling better today mild cough. Still SANON No peripheral edema No events noted on telemetry: on paced rhythm Pt says his headache has improved -- EXAM -- VITALS (05/17 13:53 - 05/18 13:53): Blood pressure: 113/82 (113/68 - 138/82) Respiratory rate: 21 (13 - 26) Blood pressure source: Monitor Temperature C: 36.9 (36.6 - 38.0) Temperature source: Oral Pulse Rate: 86 (82 - 109) IOS (05/17 07:00-05/18 07:00): Net-300 [id number] Output1,100 Oral ml:800 Void ml:1,100 EXAM: General Well developed, well nourished, in no apparent distress. Head Normocephalic, atraumatic. Nose No deformity, no discharge, no inflammation, no lesions. Mouth OMM Neck Supple Lungs Left side crackles fine. Good air entry b/l Heart Regular rate and rhythm, normal S1, S2, no murmurs, ICD site is clean and dry Abdomen Soft, non-tender, no organomegaly, no masses noted. Extremities No clubbing, no cyanosis, no edema. Pulses Pulses normal in all extremities. -- DATA -- MEDICATIONS ONDANSETRON HCL/PF 4 MG IV Q4H PRN HYDROcodone BITARTRATE/APAP 1 TAB PO Q4H PRN ATORVASTATIN CALCIUM 80 MG PO BEDTIME CITALOPRAM 40 MG PO DAILY hydrALAZINE HCL 10 MG IV Q6H PRN PIPERAC/TAZOBACTAM with/in SODIUM CHLORIDE 100 mL BAG 3.375 GM IV Q8HR METOPROLOL TARTRATE 12.5 MG PO Q12HR ACETAMINOPHEN 650 MG PO Q4H PRN IPRATROPIUM/ALBUTEROL SULFATE 3 ML NEB RTQ6H THIAMINE HCL 100 MG PO DAILY AZITHROMYCIN 500 MG PO DAILY LORazepam 0.5 MG PO Q8H PRN APAP/CAFFEIN/BUTALBITAL 1 TAB PO Q6H PRN SODIUM CHLORIDE 0.65% 1 SPRAY NASAL Q2H PRN APIXABAN 5 MG PO Q12HR PREGABALIN 50 MG PO BID AMIODARONE HCL 200 MG PO BID LAB RESULTS BASIC METABOLIC PANEL (05/18/24 05:25) GLUCOSE 143H H ANION GAP 12.3 CARBON DIOXIDE 26 CHLORIDE 90L L BUN/CREATININE RATIO 13.0 CREATININE 1.0 GLOMERULAR FILTRATION RATE >=60 max estimate BLOOD UREA NITROGEN 13 POTASSIUM 3.9 SODIUM 124L L CALCIUM 9.3 CBC W/AUTO DIFF (05/18/24 05:25) IMMATURE GRANULOCYTE % 0.5 BASOPHIL # 0.01 LYMPHOCYTE % 4.0 L NUCLEATED RBC # 0.000 MONOCYTE % 3.0 EOSINOPHIL % 0.0 BASOPHIL % 0.1 NUCLEATED RBC % 0.0 NEUTROPHIL % 92.4 H EOSINOPHIL # 0.00 MEAN CELL HGB CONCENTRATION 34.3 RED CELL DISTRIBUTION WIDTH 13.2 PLATELET COUNT 217 LYMPHOCYTE # 0.37 L MEAN PLATELET VOLUME 10.0 MONOCYTE # 0.28 NEUTROPHIL # 8.48 H IMMATURE GRANULOCYTE # 0.050 WHITE BLOOD CELL 9.2 RED BLOOD CELL 4.38 HEMOGLOBIN 13.5L L HEMATOCRIT 39.4L L MEAN CELL VOLUME 90 MEAN CELL HGB 30.8 -- QUALITY -- Medications I attest that the foregoing medication list in the medical record is true, accurate, and complete to the best of my knowledge. VTE Prophylaxis -General Yes TYPE OF VTE other anticoagulants -- ATTESTATION -- Care Activities / Care Coordination I have reviewed the history and repeated the carias elements I have seen and examined this patient I have reviewed the progress in the clinical course since the last examination I have discussed the patient's condition with other members of the care team ADDITIONAL DETAIL: Covering for Dr. Ley at 1359 ATTENTION *EDITS and/or ADDENDA must be made in Patient Keeper for this note. * * Edits and ammendments created in [employer] are not visible * * in Patient Keeper or the legal medical record ([facility]). * RPT #: [id number] END OF REPORT [facility] 2024-05-18 09:40:00 [facility] ([facility]) Nephrology Consultation REPORT #: [id number] REPORT STATUS: Signed DATE: 05/18/24 TIME: 939 PATIENT: MONTES,KOTA OHARA UNIT #: [id number] ROOM #: NC.212 BED: 1 : 61 AGE: 63 SEX: M ATTEND: Josette Ley DO ADM AUTHOR: Kartik Ayala MD ATTENTION *EDITS and/or ADDENDA must be made in Patient Keeper for this note. * * Edits and ammendments created in [employer] are not visible * * in Patient Keeper or the legal medical record ([facility]). * Note Date: 05/18/24 09:40 -- ASSESSMENT/PLAN -- GENERAL ASSESSMENT: Hyponatremia Excess ADH state given pulmonary pathology; possibly hypervolemic related given degree of cardiac dysfunction Acute hypoxic respriatory failure On NC o2 Pneumonia CHF CAD S/p CABG Afib Plan CXr with mild vascular congestion; will give a dose of bumex IV today. Can restart PO home medication tomorrow Send urine Osm and electrolytes AM serum Osm Increase protein intake Low sodium diet Avoid NSAIDs Drink to thirst only Will monitor vitals, volume status, renal clearance and electrolyte/acid-base derangements -- HISTORY -- REASON FOR CONSULT: Hyponatremia HPI: 63M w/ pmhx of HTN, HLD, CAD, CHF, CABG who presented for worsening sob. Patient stated to have a cough and imaging concerning for pneumonia. He states to have symptoms of volume overload as well, takes bumex at home. On presentation, he was found to have Na 144, Scr 1.0, eGFR 60 ml/min with Na worsening to 124 today. Patient started on abx therapy for pneumonia. Nephrology consulted for acute hyponatremia. Home medication include bumex, lexapro. No hx of thiazide diuretics or AEDs. No hx of NSAID use. PAST MEDICAL HISTORY/PAST SURGICAL HISTORY: PAST MEDICAL HISTORY: - Acute on chronic systolic (congestive) heart failure - Acute respiratory failure with hypoxia - AICD problem - Atrial fibrillation with RVR - CAD (coronary artery disease) - Full code status - Hyperlipidemia - Hypertension - ICD (implantable cardioverter-defibrillator) malfunction - Ischemic cardiomyopathy - Left bundle-branch block, unspecified - Medical non-compliance - On deep vein thrombosis (DVT) prophylaxis - Presence of automatic (implantable) cardiac defibrillator - Tobacco abuse - Unspecified atrial fibrillation - Acute hypoxic respiratory failure - Acute kidney injury - Anxiety disorder, unspecified - Heart failure, unspecified - Hypertensive heart disease with heart failure - Hyponatremia - Acute blood loss anemia - Acute CHF - Acute decompensated heart failure - Acute kidney failure, unspecified - Acute posthemorrhagic anemia - Acute respiratory failure with hypercapnia - Acute respiratory failure with hypoxia and hypercapnia - Anemia - Atherosclerotic heart disease of [place] coronary artery without angina pectoris - Cardiogenic shock - Flash pulmonary edema - Presence of aortocoronary bypass graft - Rheumatic disorders of both mitral and aortic valves - Systolic dysfunction with acute on chronic heart failure PAST MEDICAL HISTORY: CAD s/p 2v CAB (06/25) and PCI (, 06/24, 12/24, 07/25) Ischemic cardiomyopathy (EF 25-29%) HTN HLD h/o ETOH abuse tobacco abuse anxiety/depression medical non-compliance PAST SURGICAL HISTORY: CABG x2v (June) ICD placement IMMUNIZATION STATUS: None FAMILY HISTORY: HTN DM Social History Tobacco use: PACK/DAY 1 YEARS USED 47 DETAILS/COMMENTS: former Vaping/Inhaled solvents: DETAILS/COMMENTS: Currently vapes Alcohol use: DETAILS/COMMENTS: former Drug use: DETAILS/COMMENTS: Denies recent hx MARITAL STATUS: 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, [employer]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 -- ALLERGIES/HOME MEDS -- Modifications made in this section do not update Allergy and Home Medication List ALLERGIES - No Known Allergies ( UNKNOWN - Allergy ) HOME MEDICATIONS - Amiodarone Tab (Cordarone Tab) (PO - BID - 200 MG) - Apixaban Tab (Eliquis Tab) (PO - BID - 5 MG) - Atorvastatin Tab (Lipitor Tab) (PO - BEDTIME - 80 MG) - HYDROcodone/APAP 5/325 Tab (Corinne 5/325 Tab) (PO - Q6H - 1 TAB) - Lexapro tab (escitalopram oxalate) (PO - DAILY - 20 MG) - Methocarbamol Tab (Robaxin Tab) (PO - TID - 750 MG) - Metoprolol Tartrate Tab (Lopressor Tab) (PO - Q12HR - 12.5 MG) - Pregabalin Cap (Lyrica Cap) (PO - BID - 50 MG) - Thiamine Tab (Vitamin B-1 Tab) (PO - DAILY - 100 MG) - bumetanide tablet (PO - BID 9A 5P - 1 MG) -- SUBJECTIVE -- REVIEW OF SYSTEMS: Comment 14 point ROS was reviewed and negative except as stated above -- EXAM -- VITALS (05/17 09:40 - 05/18 09:40): Blood pressure: 123/68 (117/68 - 138/83) Respiratory rate: 17 (13 - 26) Blood pressure source: Monitor Temperature C: 36.7 (36.6 - 38.7) Temperature source: Oral Pulse Rate: 85 (85 - 109) IOS (05/17 07:00-05/18 07:00): Net-300 [id number] Output1,100 Oral ml:800 Void ml:1,100 EXAM: Other: General: NAD, resting comfortably HEENT: NCAT Eyes: no icterus. PERRLA Mouth: MMM. No lesions appreciated Neck: supple Lungs: bilateral breath sounds auscultated; CTA-B Heart: no pitting edema; 2+ capillary refill, regular rate and rhythm; normal S1/S2 Abdomen: soft, NT/ND, +BS; no rebound or guarding. Skin: no rashes; no jaundice Neuro: no focal neuro deficits appreciated MSK: appropriate muscle bulk -- DATA -- ALLERGIES MEDICATIONS ONDANSETRON HCL/PF 4 MG IV Q4H PRN ATORVASTATIN CALCIUM 80 MG PO BEDTIME CITALOPRAM 40 MG PO DAILY hydrALAZINE HCL 10 MG IV Q6H PRN PIPERAC/TAZOBACTAM with/in SODIUM CHLORIDE 100 mL BAG 3.375 GM IV Q8HR METOPROLOL TARTRATE 12.5 MG PO Q12HR ACETAMINOPHEN 650 MG PO Q4H PRN IPRATROPIUM/ALBUTEROL SULFATE 3 ML NEB RTQ6H THIAMINE HCL 100 MG PO DAILY AZITHROMYCIN 500 MG PO DAILY LORazepam 0.5 MG PO Q8H PRN APAP/CAFFEIN/BUTALBITAL 1 TAB PO Q6H PRN SODIUM CHLORIDE 0.65% 1 SPRAY NASAL Q2H PRN APIXABAN 5 MG PO Q12HR HYDROcodone BITARTRATE/APAP 1 TAB PO Q6H PRN PREGABALIN 50 MG PO BID AMIODARONE HCL 200 MG PO BID LAB RESULTS BASIC METABOLIC PANEL (05/18/24 05:25) GLUCOSE 143H H ANION GAP 12.3 CARBON DIOXIDE 26 CHLORIDE 90L L BUN/CREATININE RATIO 13 CREATININE 1 GLOMERULAR FILTRATION RATE >=60 max estimate BLOOD UREA NITROGEN 13 POTASSIUM 3.9 SODIUM 124L L CALCIUM 9.3 CBC W/AUTO DIFF (05/18/24 05:25) IMMATURE GRANULOCYTE % 0.5 BASOPHIL # 0.01 LYMPHOCYTE % 4 L NUCLEATED RBC # 0 MONOCYTE % 3 EOSINOPHIL % 0 BASOPHIL % 0.1 NUCLEATED RBC % 0 NEUTROPHIL % 92.4 H EOSINOPHIL # 0 MEAN CELL HGB CONCENTRATION 34.3 RED CELL DISTRIBUTION WIDTH 13.2 PLATELET COUNT 217 LYMPHOCYTE # 0.37 L MEAN PLATELET VOLUME 10 MONOCYTE # 0.28 NEUTROPHIL # 8.48 H IMMATURE GRANULOCYTE # 0.05 WHITE BLOOD CELL 9.2 RED BLOOD CELL 4.38 HEMOGLOBIN 13.5L L HEMATOCRIT 39.4L L MEAN CELL VOLUME 90 MEAN CELL HGB 30.8 VITALS Temperature C: 05/18/24 08:12 36.7 05/18/24 07:35 05/18/24 04:00 05/18/24 03:51 05/18/24 02:00 05/18/24 01:19 05/17/24 23:58 38.0 05/17/24 23:12 05/17/24 22:45 05/17/24 22:00 Pulse Rate 05/18/24 08:12 85 05/18/24 07:35 87 05/18/24 04:00 85 05/18/24 03:51 85 05/18/24 02:00 87 05/18/24 01:19 91 05/17/24 23:58 05/17/24 23:12 104 05/17/24 22:45 109 05/17/24 22:00 Respiratory rate: 05/18/24 08:12 17 05/18/24 07:35 26 05/18/24 04:00 13 05/18/24 03:51 20 05/18/24 02:00 15 05/18/24 01:19 21 05/17/24 23:58 05/17/24 23:12 18 05/17/24 22:45 25 05/17/24 22:00 Blood pressure: 05/18/24 08:12 123 / 68 05/18/24 07:35 05/18/24 04:00 126 / 74 05/18/24 03:51 05/18/24 02:00 124 / 74 05/18/24 01:19 128 / 69 05/17/24 23:58 05/17/24 23:12 05/17/24 22:45 138 / 77 05/17/24 22:00 SPO2 %: 05/18/24 08:12 99 05/18/24 07:35 98 05/18/24 04:00 96 05/18/24 03:51 99 05/18/24 02:00 98 05/18/24 01:19 99 05/17/24 23:58 05/17/24 23:12 96 05/17/24 22:45 96 05/17/24 22:00 O2 Liters per minute: 05/18/24 08:12 05/18/24 07:35 18 05/18/24 04:00 05/18/24 03:51 20 05/18/24 02:00 05/18/24 01:19 05/17/24 23:58 05/17/24 23:12 35 05/17/24 22:45 05/17/24 22:00 35 Oxygen delivery devices: 05/18/24 08:12 05/18/24 07:35 High flow nasal cannula 05/18/24 04:00 05/18/24 03:51 05/18/24 02:00 05/18/24 01:19 05/17/24 23:58 05/17/24 23:12 05/17/24 22:45 05/17/24 22:00 High flow nasal cannula FiO2%: 05/18/24 08:12 05/18/24 07:35 60 05/18/24 04:00 05/18/24 03:51 75 05/18/24 02:00 05/18/24 01:19 05/17/24 23:58 05/17/24 23:12 100 05/17/24 22:45 05/17/24 22:00 100 at 2049 ATTENTION *EDITS and/or ADDENDA must be made in Patient Keeper for this note. * * Edits and ammendments created in [employer] are not visible * * in Patient Keeper or the legal medical record ([facility]). * RPT #: [id number] END OF REPORT [facility] 2024-05-18 09:08:00 [facility] ([facility]) Pulmonology Progress Note REPORT #: [id number] REPORT STATUS: Signed DATE: 05/18/24 TIME: 907 PATIENT: KOTA MONTES UNIT #: [id number] ROOM #: NC.212 BED: 1 : 61 AGE: 63 SEX: M ATTEND: Josette Ley DO ADM AUTHOR: Bridger Ayala MD ATTENTION *EDITS and/or ADDENDA must be made in Patient Keeper for this note. * * Edits and ammendments created in [employer] are not visible * * in Patient Keeper or the legal medical record ([facility]). * Note Date: 05/18/24 09:08 -- ASSESSMENT/PLAN -- GENERAL ASSESSMENT: [facility] Pulmonary Consult Note Assessment: acute hypoxic respiratory failure Community acquired pneumonia chronic HFrEF COPD HTN HLD CAD Anxiety Former smoker PLAN: - Chest x-ray reviewed, CTA, negative for PE, PHUONG consolidation. No mediastinal LAD - Continue antibiotics, ceftriaxone and azithromycin, f/u cultures - check sputum culture - urine leg/strep - Supplemental oxygen to keep O2 saturation > 92%, currently on vapotherm 18L at 60% FiO2 - MRSA screen ordered - start bronchodilator, duonebs - Patient smoked for over 40 years 2 packs a day. Very significant smoking history and likely has underlying obstructive disease i.e. COPD. Discussed with patient needs PFTs and outpatient workup - Wean oxygen as able, should be able to wean to wall O2 at this time Thank you for the consultation. We will follow with you. --------- Subjective: Events noted Patient seen and examined On 18L at 60% FiO2 HPI: Mr Montes is a 63 y.o. male with past medical hx of HTN, HLD, CAD, CHF, CABG 06/25, AICD 01/01 presented to ED for shortness of breath, cough and subjective fever. Found to have large left pneumonia, started on abx. Pulmonary consulted for further evaluation. Currently on 8L NC, removed O2 to travel to restroom and had desaturations. no hemoptysis. Denies any chest pain. No recent travel or ill contacts. Thank you for this consultation. We will follow with you. Please call for any concerns. Past medical history: HTN, HLD, CAD, CHF, afib PSurgHx: CABG in June 2023, PCI with stent , Multiple intubations FamHx: nc SocHx: ETOH quit June 2023, Ex smoker 2pk/40 yrs, recently quit vaping Review of systems: 14 point review of system negative unless listed above Physical Exam General: NAD Eyes: Anicteric sclerae. Mouth: MMM Neck: Supple. CV: Paced. Normal S1 and S2. Pulm: Good effort, decreased BS, no wheezing Abdomen: Soft, nontender. Extremities: Trace lower extremity edema. Skin: Warm, dry. Neuro: Awake, no gross deficits Psych: good affect -- EXAM -- VITALS (05/17 09:08 - 05/18 09:08): Blood pressure: 123/68 (117/68 - 138/83) Respiratory rate: 17 (13 - 26) Blood pressure source: Monitor Temperature C: 36.7 (36.6 - 38.7) Temperature source: Oral Pulse Rate: 85 (85 - 109) IOS (05/17 07:00-05/18 07:00): Net-300 [id number] Output1,100 Oral ml:800 Void ml:1,100 -- DATA -- MEDICATIONS ONDANSETRON HCL/PF 4 MG IV Q4H PRN ATORVASTATIN CALCIUM 80 MG PO BEDTIME CITALOPRAM 40 MG PO DAILY hydrALAZINE HCL 10 MG IV Q6H PRN PIPERAC/TAZOBACTAM with/in SODIUM CHLORIDE 100 mL BAG 3.375 GM IV Q8HR METOPROLOL TARTRATE 12.5 MG PO Q12HR ACETAMINOPHEN 650 MG PO Q4H PRN IPRATROPIUM/ALBUTEROL SULFATE 3 ML NEB RTQ6H THIAMINE HCL 100 MG PO DAILY AZITHROMYCIN 500 MG PO DAILY LORazepam 0.5 MG PO Q8H PRN APAP/CAFFEIN/BUTALBITAL 1 TAB PO Q6H PRN SODIUM CHLORIDE 0.65% 1 SPRAY NASAL Q2H PRN APIXABAN 5 MG PO Q12HR HYDROcodone BITARTRATE/APAP 1 TAB PO Q6H PRN PREGABALIN 50 MG PO BID AMIODARONE HCL 200 MG PO BID LAB RESULTS BASIC METABOLIC PANEL (05/18/24 05:25) GLUCOSE 143H H ANION GAP 12.3 CARBON DIOXIDE 26 CHLORIDE 90L L BUN/CREATININE RATIO 13 CREATININE 1 GLOMERULAR FILTRATION RATE >=60 max estimate BLOOD UREA NITROGEN 13 POTASSIUM 3.9 SODIUM 124L L CALCIUM 9.3 CBC W/AUTO DIFF (05/18/24 05:25) IMMATURE GRANULOCYTE % 0.5 BASOPHIL # 0.01 LYMPHOCYTE % 4 L NUCLEATED RBC # 0 MONOCYTE % 3 EOSINOPHIL % 0 BASOPHIL % 0.1 NUCLEATED RBC % 0 NEUTROPHIL % 92.4 H EOSINOPHIL # 0 MEAN CELL HGB CONCENTRATION 34.3 RED CELL DISTRIBUTION WIDTH 13.2 PLATELET COUNT 217 LYMPHOCYTE # 0.37 L MEAN PLATELET VOLUME 10 MONOCYTE # 0.28 NEUTROPHIL # 8.48 H IMMATURE GRANULOCYTE # 0.05 WHITE BLOOD CELL 9.2 RED BLOOD CELL 4.38 HEMOGLOBIN 13.5L L HEMATOCRIT 39.4L L MEAN CELL VOLUME 90 MEAN CELL HGB 30.8 at 1649 ATTENTION *EDITS and/or ADDENDA must be made in Patient Keeper for this note. * * Edits and ammendments created in [facility] are not visible * * in Patient Keeper or the legal medical record ([facility]). * [facility] #: [id number] END OF REPORT [facility] 2024-05-17 23:12:00 [id number] [facility] [address] [facility] [address] PATIENT NAME: KOTA MONTES ADMIT DATE: 05/16/24 ACCOUNT NO: [id number] ROOM NO: [facility] AGE: 63 REPORT TYPE: PROGRESS NOTE SEX: M ADMITTING PHYSICIAN:Jsoette Ley DO ATTENDING PHYSICIAN:Josette Ley DO DATE: ASSESSMENT AND PLAN: 1. Headaches. 2. Pneumonia. 3. Acute respiratory failure with hypoxia. 4. Hyponatremia. 5. Implantable cardiac defibrillator. 6. Coronary artery disease. 7. Congestive heart failure. 8. Atrial fibrillation. OBJECTIVE: VITAL SIGNS: Blood pressure is 136/83, pulse is 92, respiration is 17, the patient is afebrile. NEUROLOGIC: Alert, conscious, oriented to time, person, place, appropriate and cooperative. Cranial nerve examination shows pupils are equal and reacting to light. Extraocular movements are full. No facial asymmetry noted. Tongue is midline. Gag is present. Motor system examination shows power is 5/5. Upper and lower extremity normal tone, normal size. The patient does have tenderness especially in the supraspinatus and ____ region. Also, the patient's hyperextension, hyperflexion and xhhv-wy-vtcy rotation is being limited and tenderness is noticed in the back of the head and neck area. Reflexes are 1+ in both upper and lower extremities. Normal tone. Normal size. Sensory examination: Superficial pinprick is grossly intact. The patient is able to ambulate fairly well. LABORATORY DATA: The patient's lab studies were reviewed. The patient's CT of the head was reported to be negative. CT of the cervical spine shows grade I anterolisthesis of C4 to C5 with grade I retrolisthesis of C5-C6 and C6-7. There was a severe loss of disk space at C5 to C7, multilevel small disk extrusion noticed in the upper cervical spine, especially in C3-4, which were stable and a stable disk osteophyte complex C5 to C7. The patient was complaining of pain and the patient was started on tizanidine 4 mg three times a day along with Corinne to be taken q.8 hourly p.r.n. for headaches and the patient's headaches are significantly improved. PATIENT NAME: KOTA MONTES The patient was advised to get EMG and nerve conduction studies of both upper extremities and see how he comes along. Continue present treatment. Dictated By: Kenney Gardner, Date Dictated: 05/17/2024 23:12:08 Date Transcribed: 05/18/2024 00:57:01 SWAPNIL/RONALD Receipt ID: [id number] Authenticated by Kenney Gardner MD On 05/19/2024 11:29:22 AM at 1129 PATIENT NAME: KOTA MONTES [facility] 2024-05-17 15:17:00 [facility] Hospitalist Progress Note REPORT #: [id number] REPORT STATUS: Signed DATE: 05/17/24 TIME: 1517 PATIENT: KOTA MONTES UNIT #: [id number] ROOM #: NC.5302 BED: 1 : 61 AGE: 63 SEX: M ATTEND: Josette Ley DO ADM AUTHOR: Cheryl Castillo MD ATTENTION *EDITS and/or ADDENDA must be made in Patient Keeper for this note. * * Edits and ammendments created in [facility] are not visible * * in Patient Keeper or the legal medical record ([facility]). * Note Date: 05/17/24 15:17 -- ASSESSMENT/PLAN -- ASSESSMENT / PLAN: 1: Headache A/P: CT head unremarkable. No focal localizing neuro symptoms. ? tension headache or withdrawal from trazodone os cervical radiculopathy Unable to obtain MRI due to presence of ICD CT C spine unremarkable. Symptoms improved. Continue prn fioricet and prn norco. 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 8: Afib A/P: Continue eliquis for CVA ppx On amiodarone and metoprolol. Cont tlemetry as pt at risk of prolonged QTC with use of amiodarone with azithromycin -- SUBJECTIVE -- PATIENT NARRATIVE: Pt seen around 9 am. Pt c/o increased shortness of breath in the morning. he was hypoxia and was placed on oxygen. A stat CR done which showed no acute issues. Labs show drop in sodium: bumex held and Ur Legio Ag requested. Pulm consulted. BDs scheduled Pt denies any FELICIANO CT C spine unremarkable. No focal; neuro symptoms No F/C -- EXAM -- VITALS (05/16 15:17 - 05/17 15:17): Blood pressure: 136/83 (93/49 - 155/87) Pulse Rate: 92 (84 - 114) Respiratory rate: 17 (17 - 24) Temperature source: Oral Temperature C: 38.7 (36.7 - 38.9) IOS (05/16 07:00-05/17 07:00): [id number] Oral ml:240 EXAM: General Well developed, well nourished, in no apparent distress. Head Normocephalic, atraumatic. Eyes PERRL, EOM intact, conjunctiva and sclera clear Nose No deformity, no discharge, no inflammation, no lesions. Mouth OMM Neck Supple Lungs Left side crackles fine. Good air entry b/l Heart Regular rate and rhythm, normal S1, S2, no murmurs, ICD site is clean and dry Abdomen Soft, non-tender, no organomegaly, no masses noted. Extremities No clubbing, no cyanosis, no edema. Pulses Pulses normal in all extremities. -- DATA -- MEDICATIONS ONDANSETRON HCL/PF 4 MG IV Q4H PRN ATORVASTATIN CALCIUM 80 MG PO BEDTIME CITALOPRAM 40 MG PO DAILY hydrALAZINE HCL 10 MG IV Q6H PRN METOPROLOL TARTRATE 12.5 MG PO Q12HR ACETAMINOPHEN 650 MG PO Q4H PRN IPRATROPIUM/ALBUTEROL SULFATE 3 ML NEB RTQ6H THIAMINE HCL 100 MG PO DAILY AZITHROMYCIN 500 MG PO DAILY LORazepam 0.5 MG PO Q8H PRN APAP/CAFFEIN/BUTALBITAL 1 TAB PO Q6H PRN APIXABAN 5 MG PO Q12HR HYDROcodone BITARTRATE/APAP 1 TAB PO Q6H PRN PREGABALIN 50 MG PO BID cefTRIAXone with/in WATER FOR INJECTION,STERILE 1000 MG IV Q24H AMIODARONE HCL 200 MG PO BID LAB RESULTS BASIC METABOLIC PANEL (05/17/24 06:26) BUN/CREATININE RATIO 12.0 CREATININE 1.0 GLOMERULAR FILTRATION RATE >=60 max estimate BLOOD UREA NITROGEN 12 GLUCOSE 92 ANION GAP 14.0 CARBON DIOXIDE 24 CHLORIDE 94L L POTASSIUM 3.9 SODIUM 129L L CALCIUM 9.4 CBC W/AUTO DIFF (05/17/24 06:26) HEMATOCRIT 42.9 MEAN CELL VOLUME 91 MEAN CELL HGB 31.3 MEAN CELL HGB CONCENTRATION 34.3 IMMATURE GRANULOCYTE # 0.060 WHITE BLOOD CELL 12.2H H RED BLOOD CELL 4.70 HEMOGLOBIN 14.7 MONOCYTE # 0.84 H RED CELL DISTRIBUTION WIDTH 13.9 PLATELET COUNT 198 LYMPHOCYTE # 0.62 L MEAN PLATELET VOLUME 9.7 NEUTROPHIL % 87.2 H EOSINOPHIL # 0.01 IMMATURE GRANULOCYTE % 0.5 EOSINOPHIL % 0.1 BASOPHIL % 0.2 NUCLEATED RBC % 0.0 NEUTROPHIL # 10.59 H BASOPHIL # 0.03 LYMPHOCYTE % 5.1 L NUCLEATED RBC # 0.000 MONOCYTE % 6.9 TEST RESULTS XR CHEST 1 V (05/17/24 09:40) IMPRESSION: 1. Mild vascular congestion is present. 2. Focal consolidation is present left upper lobe suspicious of pneumonia. XR CHEST 1 V (05/27/22 09:06) IMPRESSION: Unremarkable frontal chest radiograph. CT C-SPINE W/O CONT (05/16/24 18:30) IMPRESSION: No acute findings in the cervical spine. -- QUALITY -- Medications I attest that the foregoing medication list in the medical record is true, accurate, and complete to the best of my knowledge. VTE Prophylaxis -General Yes -- ATTESTATION -- Care Activities / Care Coordination I have reviewed the history and repeated the carias elements I have seen and examined this patient I have reviewed the progress in the clinical course since the last examination I have discussed the patient's condition with other members of the care team at 1525 ATTENTION *EDITS and/or ADDENDA must be made in Patient Keeper for this note. * * Edits and ammendments created in [employer] are not visible * * in Patient Keeper or the legal medical record ([facility]). * RPT #: [id number] END OF REPORT [facility] 2024-05-17 13:21:00 [facility] ([facility]) Pulmonology Consultation REPORT #: [id number] REPORT STATUS: Signed DATE: 05/17/24 TIME: 1321 PATIENT: KOTA MONTES UNIT #: [id number] ROOM #: NC.5302 BED: 1 : 61 AGE: 63 SEX: M ATTEND: Josette Ley Emmy DO ADM AUTHOR: Rosario Torres MD ATTENTION *EDITS and/or ADDENDA must be made in Patient Keeper for this note. * * Edits and ammendments created in [employer] are not visible * * in Patient Keeper or the legal medical record ([facility]). * Note Date: 05/17/24 13:21 -- ASSESSMENT/PLAN -- GENERAL ASSESSMENT: [facility] Pul[facility] Consult Note Assessment: acute hypoxic respiratory failure Community acquired pneumonia chronic HFrEF COPD HTN HLD CAD Anxiety Former smoker PLAN: - Chest x-ray reviewed, CTA, negative for PE, PHUONG consolidation. No mediastinal LAD - Continue antibiotics, ceftriaxone and azithromycin, f/u cultures - check sputum culture - urine leg/strep - Supplemental oxygen to keep O2 saturation > 92%, currently on 8L - MRSA screen ordered - start bronchodilator, duonebs - Patient smoked for over 40 years 2 packs a day. Very significant smoking history and likely has underlying obstructive disease i.e. COPD. Discussed with patient needs PFTs and outpatient workup - Thank you for the consultation. We will follow with you. --------- HPI: Mr Montes is a 63 y.o. male with past medical hx of HTN, HLD, CAD, CHF, CABG 06/25, AICD 01/01 presented to ED for shortness of breath, cough and subjective fever. Found to have large left pneumonia, started on abx. Pulmonary consulted for further evaluation. Currently on 8L NC, removed O2 to travel to restroom and had desaturations. no hemoptysis. Denies any chest pain. No recent travel or ill contacts. Thank you for this consultation. We will follow with you. Please call for any concerns. Past medical history: HTN, HLD, CAD, CHF, afib PSurgHx: CABG in June 2023, PCI with stent , Multiple intubations FamHx: nc SocHx: ETOH quit June 2023, Ex smoker 2pk/40 yrs, recently quit vaping Review of systems: 14 point review of system negative unless listed above Physical Exam General: NAD Eyes: Anicteric sclerae. Mouth: MMM Neck: Supple. CV: Paced. Normal S1 and S2. Pulm: Good effort, decreased BS, no wheezing Abdomen: Soft, nontender. Extremities: Trace lower extremity edema. Skin: Warm, dry. Neuro: Awake, no gross deficits Psych: good affect -- HISTORY -- PAST MEDICAL HISTORY: - Acute on chronic systolic (congestive) heart failure - Acute respiratory failure with hypoxia - AICD problem - Atrial fibrillation with RVR - CAD (coronary artery disease) - Full code status - Hyperlipidemia - Hypertension - ICD (implantable cardioverter-defibrillator) malfunction - Ischemic cardiomyopathy - Left bundle-branch block, unspecified - Medical non-compliance - On deep vein thrombosis (DVT) prophylaxis - Presence of automatic (implantable) cardiac defibrillator - Tobacco abuse - Unspecified atrial fibrillation - Acute hypoxic respiratory failure - Acute kidney injury - Anxiety disorder, unspecified - Heart failure, unspecified - Hypertensive heart disease with heart failure - Hyponatremia - Acute blood loss anemia - Acute CHF - Acute decompensated heart failure - Acute kidney failure, unspecified - Acute posthemorrhagic anemia - Acute respiratory failure with hypercapnia - Acute respiratory failure with hypoxia and hypercapnia - Anemia - Atherosclerotic heart disease of [place] coronary artery without angina pectoris - Cardiogenic shock - Flash pulmonary edema - Presence of aortocoronary bypass graft - Rheumatic disorders of both mitral and aortic valves - Systolic dysfunction with acute on chronic heart failure PAST MEDICAL HISTORY: CAD s/p 2v CAB (06/25) and PCI (, 06/24, 12/24, 07/25) Ischemic cardiomyopathy (EF 25-29%) HTN HLD h/o ETOH abuse tobacco abuse anxiety/depression medical non-compliance PAST SURGICAL HISTORY: CABG x2v (June) ICD placement CHIEF COMPLAINT: Headache Family History FAMILY HISTORY: HTN DM Social History Tobacco use: PACK/DAY 1 YEARS USED 47 DETAILS/COMMENTS: former Vaping/Inhaled solvents: DETAILS/COMMENTS: Currently vapes Alcohol use: DETAILS/COMMENTS: former Drug use: DETAILS/COMMENTS: Denies recent hx MARITAL STATUS: 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, 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 -- EXAM -- VITALS (05/16 13:21 - 05/17 13:21): Pulse Rate: 100 (84 - 114) Blood pressure: 136/83 (93/49 - 155/87) Temperature C: 38.7 (36.7 - 38.9) Respiratory rate: 17 (17 - 24) Temperature source: Oral IOS (05/16 07:00-05/17 07:00): [id number] Oral ml:240 -- DATA -- MEDICATIONS ONDANSETRON HCL/PF 4 MG IV Q4H PRN ATORVASTATIN CALCIUM 80 MG PO BEDTIME CITALOPRAM 40 MG PO DAILY hydrALAZINE HCL 10 MG IV Q6H PRN METOPROLOL TARTRATE 12.5 MG PO Q12HR ACETAMINOPHEN 650 MG PO Q4H PRN IPRATROPIUM/ALBUTEROL SULFATE 3 ML NEB RTQ6H THIAMINE HCL 100 MG PO DAILY AZITHROMYCIN 500 MG PO DAILY LORazepam 0.5 MG PO Q8H PRN APAP/CAFFEIN/BUTALBITAL 1 TAB PO Q6H PRN APIXABAN 5 MG PO Q12HR HYDROcodone BITARTRATE/APAP 1 TAB PO Q6H PRN PREGABALIN 50 MG PO BID cefTRIAXone with/in WATER FOR INJECTION,STERILE 1000 MG IV Q24H AMIODARONE HCL 200 MG PO BID LAB RESULTS BASIC METABOLIC PANEL (05/17/24 06:26) BUN/CREATININE RATIO 12.0 CREATININE 1.0 GLOMERULAR FILTRATION RATE >=60 max estimate BLOOD UREA NITROGEN 12 GLUCOSE 92 ANION GAP 14.0 CARBON DIOXIDE 24 CHLORIDE 94L L POTASSIUM 3.9 SODIUM 129L L CALCIUM 9.4 CBC W/AUTO DIFF (05/17/24 06:26) HEMATOCRIT 42.9 MEAN CELL VOLUME 91 MEAN CELL HGB 31.3 MEAN CELL HGB CONCENTRATION 34.3 IMMATURE GRANULOCYTE # 0.060 WHITE BLOOD CELL 12.2H H RED BLOOD CELL 4.70 HEMOGLOBIN 14.7 MONOCYTE # 0.84 H RED CELL DISTRIBUTION WIDTH 13.9 PLATELET COUNT 198 LYMPHOCYTE # 0.62 L MEAN PLATELET VOLUME 9.7 NEUTROPHIL % 87.2 H EOSINOPHIL # 0.01 IMMATURE GRANULOCYTE % 0.5 EOSINOPHIL % 0.1 BASOPHIL % 0.2 NUCLEATED RBC % 0.0 NEUTROPHIL # 10.59 H BASOPHIL # 0.03 LYMPHOCYTE % 5.1 L NUCLEATED RBC # 0.000 MONOCYTE % 6.9 at 1330 ATTENTION *EDITS and/or ADDENDA must be made in Patient Keeper for this note. * * Edits and ammendments created in [facility] are not visible * * in Patient Keeper or the legal medical record ([facility]). * [facility] #: [id number] END OF REPORT [facility] 2024-05-16 23:41:00 [id number] [facility] [id number] [facility] [id number] PATIENT NAME: KOTA MONTES ADMIT DATE: 05/16/24 ACCOUNT NO: [id number] ROOM NO: OH.212 AGE: 63 REPORT TYPE: CONSULATION SEX: M ADMITTING PHYSICIAN:Josette Ley DO ATTENDING PHYSICIAN:Josette Ley DO CONSULTATION DATE: SUBJECTIVE This is a 63-year-old white gentleman with a past medical history of coronary artery disease status post CABG x2, ischemic cardiomyopathy, AICD in situ, hypertension, hyperlipidemia, alcohol and tobacco use, came down to the emergency room with headaches for 2 days. Claimed that headaches are all over the head, also radiating down to the back of the neck and shoulder. The patient is also complaining of dizziness and photophobia. The patient denies having any nausea or vomiting. He states that he is trying to wean himself from the trazodone, which he takes every night to help him sleep. The patient was taking 100 mg daily, last dose was over 24 hours ago. Also complaining of increased stress at work. The patient's workup in the ER was suggestive of left upper lobe pneumonia, was negative for flu A and B and COVID. CT of the head was unremarkable. PAST MEDICAL HISTORY: 1. Acute or chronic systolic congestive heart failure. 2. Acute respiratory failure with hypoxia. 3. AICD problem. 4. Atrial fibrillation with RVR. 5. Coronary artery disease. 6. Hyperlipidemia. 7. Hypertension. 8. ICD, implantable cardioverter and defibrillator malfunction. 9. Ischemic cardiomyopathy. 10. Left bundle branch block unspecified. 11. Medical noncompliance. 12. DVT prophylaxis. 13. Tobacco abuse. 14. Acute hypoxic respiratory failure. 15. Acute kidney injury. 16. Anxiety disorder. 17. Unspecified heart failure. 18. Acute blood loss anemia. 19. Acute CHF. 20. Pulmonary edema. 21. Presence of aortocoronary bypass graft. 22. Rheumatic disorder of both mitral and aortic valves. 23. Systolic dysfunction with an acute on chronic heart failure. 24. CABG and PCI. 25. History of alcohol abuse, tobacco abuse. 26. Anxiety and depression. PATIENT NAME: KOTA MONTES 27. Medical noncompliance. PAST SURGICAL HISTORY: 1. CABG x2 2. ICD placement. SOCIAL HISTORY: Currently vapes. Alcohol for ____. Drug use, denies recent history of recreational drugs. 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 Patient's medications were reviewed. Patient did not show any known allergies. REVIEW OF SYSTEMS: Unremarkable except the one discussed above. OBJECTIVE: Blood pressure is 151/89, pulse is 105, respirations 18. The patient is afebrile. Alert and conscious, oriented to time, person, place, appropriate and cooperative, able to follow one step command. Cranial nerve examination shows pupils are 3 mm equal, reacting to light. Extraocular movements are full. No facial asymmetry noticed. Tongue is midline. Gag is present. No ENT discharge. The patient is able to move both upper and both lower extremities appropriately. Reflexes are 1+ in both upper and lower extremities, downgoing plantars. The patient does show some restriction of the neck movement in hyperextension, hyperflexion and [id number]-[id number]-[id number] rotation. The patient also has pain and spasm in intra-shoulder area bilaterally and also in supraspinatus area, which is tender. The patient's lab results were reviewed. The patient has gone through a CT of the head, which was unremarkable. The patient has gone through a CT of the chest, which was also unremarkable except shows improvement since 12/26/2023. The patient has gotten CT of the cervical spine, which I ordered yesterday. The patient is showing no acute fracture of the cervical spine; however, moderate to advanced degenerative findings described with grade 2 anterolisthesis of C4 on C5 and chronic-appearing fracture deformity of the left lateral first rib. The patient's headaches are mostly likely coming down from his neck and the shoulder area. The patient was advised to get an EMG and nerve conduction study of both upper extremities and if it is not getting any better, the patient needs to take muscle relaxant and pain medication; however, if it is not working, then the patient should seriously consider getting a neurosurgical opinion. ASSESSMENT AND PLAN: 1. Headaches, most likely cervical radiculopathy. 2. Ischemic cardiomyopathy. 3. Hypertension. 4. Hyperlipidemia. 5. History of ethanol abuse. 6. Tobacco abuse. 7. Anxiety and depression. 8. Medical noncompliance. At present time the patient was started on tizanidine 4 mg three times a day, a muscle relaxant and also the patient is taking Corinne. Was advised to take Corinne PATIENT NAME: KOTA MONTES q. 8h. p.r.n. for pain. Continue present treatment. Dictated By: Kenney Gardner, Date Dictated: 05/16/2024 23:41:47 Date Transcribed: 05/17/2024 04:15:06 SWAPNIL/ROBERTS Receipt ID: [id number] Authenticated by Kenney Gardner MD On 05/19/2024 11:29:21 AM at 1129 PATIENT NAME: KOTA MONTES [facility] 2024-05-16 22:51:00 [id number] [place] [id number] [facility] [address] PATIENT NAME: KOTA MONTES ADMIT DATE: 05/16/24 ACCOUNT NO: [id number] ROOM NO: NC.212 AGE: 63 REPORT TYPE: ELECTROENCEPHALOGRAM SEX: M ADMITTING PHYSICIAN:Josette Ley DO ATTENDING PHYSICIAN:Josette Ley DO STUDY DATE: 05/16/2024 PATIENT OF: Dr. Jil Finch. INTERPRETATION: This is 8 to 9 Hz moderate voltage alpha activity, which is arising from both posterior head regions in a symmetrical fashion. There are no paroxysmal bursts of spike and slow wave activity seen in this record. Hyperventilation was uneventful. Photic stimulation shows minimal photic drive. There were a lot of muscle and movement artifacts seen in this record. There are no paroxysmal bursts of spike and slow wave activity seen in this record. IMPRESSION: Normal EEG. Dictated By: Kenney Gardner, Date Dictated: 05/16/2024 22:51:19 Date Transcribed: 05/17/2024 01:27:59 SWAPNIL/ROBERTS Receipt ID: [id number] Authenticated by Kenney Gardner MD On 05/19/2024 11:29:[address] [facility] [id number] [facility] [address] PATIENT NAME: KOTA MONTES [facility] 2024-05-16 09:52:00 [facility] ([facility]) Hospitalist H P REPORT #: [id number] REPORT STATUS: Signed DATE: 05/16/24 TIME: 951 PATIENT: KOTA MONTES UNIT #: [id number] ROOM #: NC.5302 BED: 1 : 61 AGE: 63 SEX: M ATTEND: Josette Ley DO ADM AUTHOR: Cheryl Castillo MD ATTENTION *EDITS and/or ADDENDA must be made in Patient Keeper for this note. * * Edits and ammendments created in [employer] are not visible * * in Patient Keeper or the legal medical record ([facility]). * Note Date: 05/16/24 09:52 -- HISTORY -- ADMISSION DATE 05/16/2024 Primary care provider:Jong Pollack MD CHIEF COMPLAINT: Headache HPI: Patient is a 63-year-old male with past medical history of CAD s/p CABG x 2, ischemic cardiomyopathy, AICD in situ, hypertension, dyslipidemia, and alcohol, and tobacco use who presented to the ER for c/o headache for 2 days. SAys the headache is all over and also in the back of neck, a/w dizziness and photophobia. He Focal neurological symptoms of motor weakness. Denies any Nausea and vomiting. States that he was trying to wean himself off trazodone which he takes every night to help him sleep. He was on 100 mg daily. Last dose was over 24 hours ago. Also complains of increased stress at work.Workup in the ER was suggestive of left upper lobe pneumonia. He was negative for flu A, flu B, and COVID. CT of the head was unremarkable. HISTORY OBTAINED FROM: patient PAST MEDICAL / SURGICAL HISTORY: PAST MEDICAL HISTORY: - Acute on chronic systolic (congestive) heart failure - Acute respiratory failure with hypoxia - AICD problem - Atrial fibrillation with RVR - CAD (coronary artery disease) - Full code status - Hyperlipidemia - Hypertension - ICD (implantable cardioverter-defibrillator) malfunction - Ischemic cardiomyopathy - Left bundle-branch block, unspecified - Medical non-compliance - On deep vein thrombosis (DVT) prophylaxis - Presence of automatic (implantable) cardiac defibrillator - Tobacco abuse - Unspecified atrial fibrillation - Acute hypoxic respiratory failure - Acute kidney injury - Anxiety disorder, unspecified - Heart failure, unspecified - Hypertensive heart disease with heart failure - Hyponatremia - Acute blood loss anemia - Acute CHF - Acute decompensated heart failure - Acute kidney failure, unspecified - Acute posthemorrhagic anemia - Acute respiratory failure with hypercapnia - Acute respiratory failure with hypoxia and hypercapnia - Anemia - Atherosclerotic heart disease of [place] coronary artery without angina pectoris - Cardiogenic shock - Flash pulmonary edema - Presence of aortocoronary bypass graft - Rheumatic disorders of both mitral and aortic valves - Systolic dysfunction with acute on chronic heart failure PAST MEDICAL HISTORY: CAD s/p 2v CAB (06/25) and PCI (, 06/24, 12/24, 07/25) Ischemic cardiomyopathy (EF 25-29%) HTN HLD h/o ETOH abuse tobacco abuse anxiety/depression medical non-compliance PAST SURGICAL HISTORY: CABG x2v (June) ICD placement IMMUNIZATION STATUS: None FAMILY HISTORY: HTN DM Social History Tobacco use: PACK/DAY 1 YEARS USED 47 DETAILS/COMMENTS: former Vaping/Inhaled solvents: DETAILS/COMMENTS: Currently vapes Alcohol use: DETAILS/COMMENTS: former Drug use: DETAILS/COMMENTS: Denies recent hx MARITAL STATUS: 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, 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 -- ALLERGIES/HOME MEDS -- Modifications made in this section do not update Allergy and Home Medication List ALLERGIES - No Known Allergies ( UNKNOWN - Allergy ) HOME MEDICATIONS - Amiodarone Tab (Cordarone Tab) (PO - BID - 200 MG) - Atorvastatin Tab (Lipitor Tab) (PO - BEDTIME - 80 MG) - HYDROcodone/APAP 5/325 Tab (Corinne 5/325 Tab) (PO - Q6H - 1 TAB) - Lexapro tab (escitalopram oxalate) (PO - DAILY - 20 MG) - Methocarbamol Tab (Robaxin Tab) (PO - TID - 750 MG) - Metoprolol Tartrate Tab (Lopressor Tab) (PO - Q12HR - 12.5 MG) - Pregabalin Cap (Lyrica Cap) (PO - BID - 50 MG) - Thiamine Tab (Vitamin B-1 Tab) (PO - DAILY - 100 MG) -- SUBJECTIVE -- REVIEW OF SYSTEMS: General: Negative for fever, malaise, fatigue. Eyes: Negative for blurry vision. intermittent diplopia. Ears/Nose/Throat: Negative for sore throat. No otalgia. No rhinorrhea. Respiratory: Negative for dyspnea or wheeze. No cough. Cardiovascular: Negative for chest pain or palpitations. No extremity swelling. Gastrointestinal: Negative for abdominal pain or nausea. No emesis. No diarrhea. Musculoskeletal: Negative for joint stiffness, pain, or arthralgias. Skin: Negative for rashes. No pruritus. Neurological: positive for headache and dizziness Psychiatric: Negative for specific complaints. -- EXAM -- VITALS (05/15 09:52 - 05/16 09:52): Blood pressure: 151/89 (121/65 - 172/115) Blood pressure source: Monitor Respiratory rate: 18 (17 - 23) Temperature F: 98.2 Temperature C: 37.2 (36.8 - 37.2) Pulse Rate: 105 (88 - 116) Temperature source: Axillary EXAM: General: Well developed, well nourished, in no apparent distress. Head: Normocephalic, atraumatic. Eyes: PERRL, EOM intact, conjunctiva and sclera clear, without nystagmus, lids normal. Nose: No deformity, no discharge, no inflammation, no lesions. Mouth: OMM Neck: Supple Lungs: Clear bilaterally with normal respiratory effort. Heart: Regular rate and rhythm, normal S1, S2, no murmurs, ICD site is clean and dry Abdomen: Soft, non-tender, no organomegaly, no masses noted. Extremities: No clubbing, no cyanosis, no edema. Pulses: Pulses normal in all extremities. -- DATA -- ALLERGIES MEDICATIONS Ondansetron Inj (Zofran Inj) 4MG IV Q4H PRN nausea and vomiting stopping on 06/15 at 07:31 Atorvastatin Tab (Lipitor Tab) 80MG PO BEDTIME stopping on 06/15 at 21:01 Azithromycin Tab (Zithromax Tab) 500MG PO DAILY X 4 doses stopping on 05/19 at 09:01 Citalopram Tab (CeleXA Tab) 40MG PO DAILY stopping on 06/15 at 09:01 hydrALAZINE Inj (Apresoline Inj) 10MG IV Q6H PRN sbp greater than 180 stopping on 06/15 at 07:31 Albuterol/Ipratrop Neb Soln (Duoneb Neb Soln) 3ML NEB RTQ6H PRN wheezing / shortness of breath stopping on 06/15 at 13:01 Metoprolol Tartrate Tab (Lopressor Tab) 12.5MG PO Q12HR stopping on 06/15 at 09:01 Acetaminophen Tab (Tylenol Tab) 650MG PO Q4H PRN pain 1-3/temp > 100.5/headache stopping on 06/15 at 07:31 Thiamine Tab (Vitamin B-1 Tab) 100MG PO DAILY stopping on 06/15 at 09:01 APAP/Caffeine/Butalbital Tab (Fioricet Tab) 1TAB PO Q6H PRN headache stopping on 06/15 at 10:01 HYDROcodone/APAP 5/325 Tab (Corinne 5/325 Tab) 1TAB PO Q6H PRN pain scale 7-10 stopping on 05/21 at 08:31 Pregabalin Cap (Lyrica Cap) 50MG PO BID stopping on 06/15 at 09:01 Amiodarone Tab (Cordarone Tab) 200MG PO BID stopping on 06/15 at 09:01 cefTRIAXone Inj (Rocephin Inj) 1000MG IV Q24H stopping on 05/21 at 20:59 LAB RESULTS UA RFLX MICR amp;CULT IF INDICATED (05/16/24 03:10) UA UROBILINOGEN DIPSTICK NEGATIVE UA PROTEIN DIPSTICK NEGATIVE UA SPECIFIC GRAVITY 1.010 UA KETONE DIPSTICK NEGATIVE UA PH DIPSTICK 6.0 UA BLOOD DIPSTICK 2+ H UA APPEARANCE CLEAR UA COLOR STRAW UA BILIRUBIN DIPSTICK NEGATIVE UA GLUCOSE DIPSTICK NEGATIVE UA RBC 21-30 H UA WBC 6-10 H UA SQUAMOUS CELLS None seen UA BACTERIA RARE UA LEUKOCYTE ESTERASE DIPSTICK NEGATIVE UA NITRITE DIPSTICK NEGATIVE TEST RESULTS CTA CHEST FOR PE (05/15/24 00:30) IMPRESSION: No acute pulmonary embolism is detected . 5.3 x 4.4 cm region consolidation lateral aspect left upper lobe likely for pneumonia has developed since the previous CT scan. INFLUENZA A AG, INFLUENZA B AG (05/15/24 23:40) INFLUENZA A AG Final 05/16/24-42 ML INFLUENZA A ANTIGEN INFLUENZA A NEGATIVE INFLUENZA B AG Final 05/16/24-42 ML INFLUENZA B ANTIGEN INFLUENZA B NEGATIVE XR CHEST 1 V (05/15/24 22:40) IMPRESSION: No acute findings in the chest. CT HEAD/BRAIN W/O CONT (05/15/24 00:30) IMPRESSION: No acute intracranial abnormality is detected. -- ASSESSMENT/PLAN -- A/P: 1: Headache A/P: CT head unremarkable. No focal localizing neuro symptoms. ? tension headache or withdrawal from trazodone Unable to obtain MRI due to presence of ICD Start pain mgmt with prn fioricet and prn norco. Consult neuro. 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 Resume home meds when complete list is reconciled -- QUALITY -- Medications I attest that the foregoing medication list in the medical record is true, accurate, and complete to the best of my knowledge. VTE Prophylaxis -General Yes TYPE OF VTE other anticoagulants -- ATTESTATION -- Time Spent on Patient Care > 50% of time spent on counseling/care coordination Care Activities / Care Coordination I have reviewed the history and repeated the carias elements I have seen and examined this patient I have discussed the patient's condition with other members of the care team at 1005 ATTENTION *EDITS and/or ADDENDA must be made in Patient Keeper for this note. * * Edits and ammendments created in [employer] are not visible * * in Patient Keeper or the legal medical record ([facility]). * RPT #: [id number] END OF REPORT [facility] 2024-05-16 08:28:00 [facility] ([facility]) Med Order Sheet REPORT #: [id number] REPORT STATUS: Signed DATE: 05/16/24 TIME: 827 PATIENT: KOTA MONTES UNIT #: [id number] ROOM #: NC.5302 BED: 1 : 61 AGE: 63 SEX: M ATTEND: Josette Ley DO ADM AUTHOR: Cheryl Castillo MD ATTENTION *EDITS and/or ADDENDA must be made in Patient Keeper for this note. * * Edits and ammendments created in [employer] are not visible * * in Patient Keeper or the legal medical record ([facility]). * Admission Medication Reconciliation -- CONTINUED / CHANGED HOME MEDICATIONS -- Home: HYDROcodone/APAP 5/325 Tab (Corinne 5/325 Tab) 1 TAB PO Q6H PRN pain scale 4-6 (use 1st) Hosp: HYDROcodone/APAP 5/325 Tab (Corinne 5/325 Tab) 1 TAB PO Q6H PRN pain scale 7-10 The following home medications have not yet been reconciled: Methocarbamol Tab (Robaxin Tab) 750 MG PO TID FOLLOWING MEDICATIONS WERE PREVIOUSLY RECONCILED ON 05/16/24 08:27 by Cheryl Castillo MD -- CONTINUED / CHANGED HOME MEDICATIONS -- Home: Amiodarone Tab (Cordarone Tab) 200 MG PO BID Hosp: Existing: Amiodarone Tab (Cordarone Tab) 200 MG PO BID Home: Atorvastatin Tab (Lipitor Tab) 80 MG PO BEDTIME Hosp: Existing: Atorvastatin Tab (Lipitor Tab) 80 MG PO BEDTIME Home: Lexapro tab (escitalopram oxalate) 20 MG PO DAILY Hosp: Existing: Lexapro tab (escitalopram oxalate) 20 MG PO DAILY Home: Metoprolol Tartrate Tab (Lopressor Tab) 12.5 MG PO Q12HR Hosp: Existing: Metoprolol Tartrate Tab (Lopressor Tab) 12.5 MG PO Q12HR Home: Pregabalin Cap (Lyrica Cap) 50 MG PO BID Hosp: Existing: Pregabalin Cap (Lyrica Cap) 50 MG PO BID Home: Thiamine Tab (Vitamin B-1 Tab) 100 MG PO DAILY Hosp: Existing: Thiamine Tab (Vitamin B-1 Tab) 100 MG PO DAILY at 0828 ATTENTION *EDITS and/or ADDENDA must be made in Patient Keeper for this note. * * Edits and ammendments created in [facility] are not visible * * in Patient Keeper or the legal medical record ([facility]). * RPT #: [id number] END OF REPORT [facility] 2024-05-16 08:27:00 [facility] ([facility]) Med Order Sheet REPORT #: [id number] REPORT STATUS: Signed DATE: 05/16/24 TIME: 826 PATIENT: KOTA MONTES UNIT #: [id number] ROOM #: NC.5302 BED: 1 : 61 AGE: 63 SEX: M ATTEND: Josette Ley DO ADM AUTHOR: Cheryl Castillo MD ATTENTION *EDITS and/or ADDENDA must be made in Patient Keeper for this note. * * Edits and ammendments created in [facility] are not visible * * in Patient Keeper or the legal medical record ([facility]). * Admission Medication Reconciliation -- CONTINUED / CHANGED HOME MEDICATIONS -- Home: Amiodarone Tab (Cordarone Tab) 200 MG PO BID Hosp: Amiodarone Tab (Cordarone Tab) 200 MG PO BID Home: Atorvastatin Tab (Lipitor Tab) 80 MG PO BEDTIME Hosp: Atorvastatin Tab (Lipitor Tab) 80 MG PO BEDTIME Home: Lexapro tab (escitalopram oxalate) 20 MG PO DAILY Hosp: Lexapro tab (escitalopram oxalate) 20 MG PO DAILY Home: Metoprolol Tartrate Tab (Lopressor Tab) 12.5 MG PO Q12HR Hosp: Metoprolol Tartrate Tab (Lopressor Tab) 12.5 MG PO Q12HR Home: Pregabalin Cap (Lyrica Cap) 50 MG PO BID Hosp: Pregabalin Cap (Lyrica Cap) 50 MG PO BID Home: Thiamine Tab (Vitamin B-1 Tab) 100 MG PO DAILY Hosp: Thiamine Tab (Vitamin B-1 Tab) 100 MG PO DAILY The following home medications have not yet been reconciled: HYDROcodone/APAP 5/325 Tab (Corinne 5/325 Tab) 1 TAB PO Q6H PRN pain scale 4-6 (use 1st) Methocarbamol Tab (Robaxin Tab) 750 MG PO TID at 0827 ATTENTION *EDITS and/or ADDENDA must be made in Patient Keeper for this note. * * Edits and ammendments created in [facility] are not visible * * in Patient Keeper or the legal medical record ([facility]). * [facility] #: [id number] END OF REPORT [facility] 2024-05-15 22:47:00 [facility] ([facility]) EMERGENCY PROVIDER REPORT REPORT#:[id number] REPORT STATUS: Signed DATE:05/15/24 TIME: 2246 PATIENT: KOTA MONTES UNIT #: [id number] ROOM: BED: : 61 AGE: 63 SEX: M PCP PHYS: Jong Pollack MD SERVICE AUTHOR: Joey Ramon MD REP SRV REP SRV TM: 2246 * ALL edits or amendments must be made on the electronic/computer document * HPI-Dyspnea/Wheezing Free Text HPI Notes Free Text HPI Notes Patient with history of anemia, CHF, SAMMIE, acute respiratory failure, A-fib on Eliquis, pulmonary edema, hyperlipidemia, hypertension, left bundle branch block , CAD status post CABG and AICD with 5-6 cardiac stent presented to ER by EMS due to 4-day of shortness of breath with associated frontal squeezing, intermittent headache that is worse with movement and also intermittent dizziness with nausea. Denies any fever, cough, chest pain, vomiting, abdominal pain, dysuria, diarrhea. 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 General Initial Greet Date/Time 05/15/242237 Presentation Chief Complaint Shortness of breath Review of Systems ROS Statements All systems rev neg except as marked. Past Medical History - Adult Stated Complaint sob since this morning hxstemi cabg stent x7 Allergies Coded Allergies: No Known Allergies (12/31/23) Home Medications Active Scripts Guaifenesin/Dextromethorphan (Mucinex Dm 1200/60 Mg) 1 TAB PO Q12H PRN CONGESTION Guaifenesin/Dextromethorphan (Mucinex Dm 1200/60 Mg) 1 TAB PO Q12H PRN CONGESTION #20 TABS Prov: 02/15/24 Methylprednisolone (Medrol 4 Mg Dosepak) 4 MG PO ASDIR Methylprednisolone (Medrol 4 Mg Dosepak) 4 MG PO ASDIR #1 PACKET Prov: 04/30/24 Methocarbamol (Robaxin) 500 MG PO QID PRN PRN muscle spasm Methocarbamol (Robaxin) 500 MG PO QID PRN PRN muscle spasm #30 TABS Prov: 04/30/24 Amiodarone (Pacerone) 200 MG PO Q12HR Amiodarone (Pacerone) 200 MG PO Q12HR #60 TAB Prov: 02/24/24 Cephalexin (Keflex) 250 MG PO Q6H Cephalexin (Keflex) 250 MG PO Q6H #20 CAP Prov: 02/24/24 Prednisone 20 MG PO SPECIAL INST Prednisone 20 MG PO SPECIAL INST #11 TAB Prov: 02/24/24 Reported Medications Folic Acid 1 MG PO DAILY Thiamine (Vitamin B-1) 100 MG PO DAILY methocarbamoL (Robaxin) 750 MG PO TID Escitalopram (Lexapro) 20 MG PO DAILY Hydrocodone/Acetaminophen (HYDROcodone/APAP 5/325) 1 TAB PO Q6H PRN pain scale 4 -6 (use 1st) Apixaban (Eliquis) 5 MG PO BID Atorvastatin (Lipitor) 80 MG PO BEDTIME Pregabalin (Lyrica) 50 MG PO BID Metoprolol Tartrate (Lopressor) 12.5 MG PO Q12HR Ticagrelor (Brilinta) 90 MG PO Q12HR Bumetanide (Bumex) 1 MG PO BID 9A 5P Amiodarone (Pacerone) 200 MG PO BID Past Medical History: Reports: Coronary artery disease, Hypertension, Dyslipidemia. Additional Medical History History of NM, CAD, anemia, CHF, acute respiratory failure, CAD, A-fib, hyperlipidemia, pulmonary edema, hypertension, left bundle branch block Past Surgical History: Reports: CABG. Additional Surgical History Cardiac stents, right hip hardware, AICD Alcohol Use Alcohol use Drug Use Denies recreational drugs Smoking status for patients 13 years old or older: Unknown,if ever smoked Physical Exam Vital Signs Vital Signs First Documented: Result Date Time Pulse Ox 94 05/15 2220 B/P 172/115 05/15 2220 O2 Delivery Room air 05/15 2220 Temp 98.2 05/15 2220 Pulse 116 05/15 2220 Resp 20 05/15 2220 Last Documented: Result Date Time Pulse Ox 96 05/150 B/P 144/75 05/15 2329 O2 Delivery Room air 05/15 2329 Pulse 105 05/15 2329 Resp 18 05/15 2329 Temp 98.2 05/15 2220 Review of Vital Signs Reviewed Free Text PE Notes Free Text PE Notes Gen: awake, alert, oriented, well appearing, not in acute respiratory distress Eyes: PERRL, conjunctiva normal, EOMI Head/Neck: atraumatic, normocephalic ENT: Airway patent, mucous membranes moist, normal oropharynx Cardio: Tachycardic, regular rhythm Pulm: breath sounds symmetric bilat, no crackles/wheezing GI: Soft, non-tender, non-distended, no peritoneal signs MSK Upper extrm: inspection nl, no swelling, no deformity. Radial pulses symmetric MSK Lower extrm: inspection nl, no swelling/edema, no deformity. Skin: warm, dry, no cyanosis, no diaphoresis Neuro: A O x 3, moves all extremities Psych: normal mood, affect, thought content Interpretation Diagnostics Lab Results Interpretation Results Laboratory Tests 05/15/242234: [Embedded Image Not Available] Laboratory Tests: 05/15 225 Chemistry Sodium (136 - 145 mmol/L) 134 L Potassium (3.5 - 5.1 mmol/L) 3.5 Chloride (98 - 107 mmol/L) 97 L Carbon Dioxide (20 - 31 mmol/L) 28 Anion Gap (2.0 - 16.0) 12.5 BUN (9 - 23 mg/dL) 14 Creatinine (0.7 - 1.3 mg/dL) 1.3 Glomerular Filtr Rate (ml/min) >=60 max estimate BUN/Creatinine Ratio (12.0 - 20.0) 10.8 L Glucose (74 - 106 mg/dL) 108 H Lactic Acid (0.5 - 1.9 mmol/L) 1.8 Calcium (8.7 - 10.4 mg/dL) 9.8 Magnesium (1.6 - 2.6 mg/dL) 1.9 Total Bilirubin (0.2 - 1.1 mg/dL) 0.7 Direct Bilirubin (0.0 - 0.3 mg/dL) 0.2 Indirect Bilirubin (0.0 - 0.8 mg/dL) 0.5 AST (<34 U/L) 16 ALT (10 - 49 U/L) 14 Total Alk Phosphatase (46 - 116 U/L) 91 Troponin I High Sens (0 - 78 pg/mL) 18 B-Natriuretic Peptide (0 - 100 pg/mL) 140 H Total Protein (5.7 - 8.2 g/dL) 7.3 Albumin (3.4 - 5.0 g/dL) 4.8 Globulin (2.3 - 3.5 g/dL) 2.5 Coagulation INR (0.8 - 1.1 RATIO) 1.4 H APTT (25.1 - 36.5 SECONDS) 37.2 H PT Patient/Control Mix (9.4 - 12.5 SECONDS) 16.1 H D-Dimer (0 - 500 ng/mLFEU) 589 H Hematology WBC (4.5 - 11.0 10 3/uL) 13.8 H RBC (4.30 - 5.90 10 6/uL) 4.80 Hgb (14.0 - 18.0 g/dL) 14.9 Hct (40.0 - 55.0 %) 44.2 MCV (81 - 102 fL) 92 MCH (26.0 - 34.0 pg) 31.0 MCHC (31.0 - 37.0 g/dL) 33.7 RDW (11.6 - 14.4 %) 14.1 Plt Count (150 - 400 10 3/uL) 201 05/15 2340 Serology SARS-CoV-2 Ag (Rapid) (NEGATIVE) NEGATIVE Microbiology: Date/Time Procedure - Status Source Growth 05/15 2340 Influenza Virus Type B Antigen - COMP NASOPHARG 05/15 2340 Influenza Virus Type A Antigen - COMP NASOPHARG 05/15 2242 Blood Culture - RECD Blood 05/15 224 Blood Culture - RECD Blood Recent Impressions: CAT SCAN - CTA CHEST FOR PE 05/15 0030 Report Impression - Status: SIGNED Entered: 05/16/2024 0104 IMPRESSION: No acute pulmonary embolism is detected . 5.3 x 4.4 cm region consolidation lateral aspect left upper lobe likely for pneumonia has developed since the previous CT scan. Impression By: Thor Corado MD CAT SCAN - CT HEAD/BRAIN W/O CONT 05/15 0030 Report Impression - Status: SIGNED Entered: 05/16/2024 0057 IMPRESSION: No acute intracranial abnormality is detected. Impression By: Thor - Mason Corado MD RADIOLOGY - XR CHEST 1 V 05/15 2240 Report Impression - Status: SIGNED Entered: 05/15/2024 2257 IMPRESSION: No acute findings in the chest. Impression By: [email or web address] - Andrea Wilson MD Lab Imaging Statement Laboratory radiographic studies reviewed and considered in the medical decision-making. Point of Care Testing Pulse Oximetry Pulse Ox % 94 On: Room air Interpretation Interpreted by me Time 2250 ECG #1 Interpretation Text/Dict Note 2231: Atrial sensed and ventricular paced rhythm 114 bpm, right axis deviation, normal TN. QRS 142 ms. QTc 504 ms. No STEMI. Interpreted by and reviewed by me, Independently interpreted, ED physician Re-Evaluation MDM Free Text MDM Notes Free Text MDM Notes Patient evaluated for shortness of breath. External records reviewed: Prior admission record History obtained from independent historian: Patient Severity of condition: Acute, moderate Co-morbidities influencing care include see HPI Patient is alert oriented, not in acute respiratory distress, tachycardic but otherwise vital signs stable. Physical exam is notable for above findings; otherwise, unremarkable. My differential diagnosis after initial evaluation includes ACS, PE, pneumonia, pulmonary edema, CHF exacerbation, viral URI, dehydration, anemia, arrhythmia, electrolyte disturbance. To further evaluate this differential, I will order labs, EKG, chest x-ray, blood culture, lactic acid. The ED treatment/plan of care will include p.o. aspirin and Tylenol, IV Zofran, IV fluid, IV antibiotic. Final Impression and Plan: My interpretation of the test results are labs shows leukocytosis with mildly elevated D-dimer. BNP mildly elevated. Troponin normal. COVID and flu negative. CT head without acute intracranial bleed. CTA chest shows no PE but does reveal left upper lobe consolidation. Treatment/Medication considered: IV antibiotics These results were reviewed with the patient and family. The most likely diagnosis is sepsis, community-acquired pneumonia. After shared decision making, the disposition plan of care will include admission for further evaluation and management. I discussed the plan with patient who agrees. Supplier Quality Manager(s) PCP: Toni ([facility]) Card: Mila 0129: discussed with Dr. Jil Finch (hospitalist) Note: Parts of the note were created using [employer] speech recognition dictation software. All attempts were made to correct any errors at the time of dictation, however there may be some errors present in the coater operator that were inadvertently overlooked during the dictation )( Re-Evaluation/Progress #1 Text/Dict Note HR 90sbpm Time of Re-Eval 0129 )( Re-Eval Status Improved ED Course Medication(s) Ordered Medication(s) Ordered: Anti-Infective Agents Sig/Alfonzo Start time Last Medication Dose Route Stop Time Status Admin Azithromycin 500 MG X1ED STA 05/16 0120 AC Sodium Chloride 250 ML IV 05/16 0219 Ceftriaxone Sodium 1,000 MG X1ED STA 05/15 2246 DC 05/15 Sterile Water 10 ML IV 05/15 2248 2340 Central Nervous System Agents Sig/Alfonzo Start time Last Medication Dose Route Stop Time Status Admin Lorazepam 0.5 MG X1ED STA 05/15 2353 DC 05/16 PO 05/15 2354 0005 Aspirin 324 MG X1ED STA 05/15 2248 DC 05/15 PO 05/15 2249 2340 Acetaminophen 1,000 MG X1ED STA 05/15 2247 DC 05/15 PO 05/15 2248 2339 Electrolytic, Caloric, And Leandro Sig/Alfonzo Start time Last Medication Dose Route Stop Time Status Admin Sodium Chloride 250 ML X1ED STA 05/15 2246 DC IV 05/15 2247 Gastrointestinal Drugs Sig/Alfonzo Start time Last Medication Dose Route Stop Time Status Admin Ondansetron HCl 4 MG X1ED STA 05/15 2248 DC IV 05/15 2249 Patient Discharge Departure Vital Signs/Condition Vital Signs First Documented: Result Date Time Pulse Ox 94 05/15 2221 B/P 172/115 05/15 2221 O2 Delivery Room air 05/15 222 Temp 98.2 05/15 2221 Pulse 116 05/15 2221 Resp 20 05/15 2221 Last Documented: Result Date Time Pulse Ox 96 05/15 2330 B/P 144/75 05/15 2330 O2 Delivery Room air 05/15 2330 Pulse 105 05/15 2330 Resp 18 05/15 2330 Temp 98.2 05/15 2221 All vital signs available at the time of this entry have been reviewed. Clinical Impression Clinical Impression Primary Impression: Community acquired pneumonia Secondary Impressions: Acute hypoxic respiratory failure Disposition Decision Hospitalize Hosp Physician Name Josette Ley( Accepts Hospitalization Yes )( Reason for Hospitalization pneumonia, acute hypoxic respiratoy failure )( Accepted Time 013 )( Accepted Date 05/16/24 Call Information will see patient, agrees with eval, agrees with plan Discharge/Care Plan Counseled Regarding Diagnosis, Lab results, Imaging studies, Need for admission Admit Note I have spoken with the patient and/or caregivers. I have explained the patient's condition, diagnoses and treatment plan based on the information available to me at this time. I have answered the patient's and/or caregiver's questions and addressed any concerns. The patient and/or caregivers have as good an understanding of the patient's diagnosis, condition and treatment plan as can be expected at this point. The patient has been stabilized within the capability of the emergency department. The patient will be transported for further care and management or will be moved to an observation or inpatient service. I have communicated with the staff or medical practitioner taking over this patient's care. at 0134 RPT #:[id number] END OF REPORT [facility] 2024-05-15 22:31:00 [id number] [place] [address] PATIENT NAME: KOTA MONTES ADMIT DATE: 05/16/24 ACCOUNT NO: [id number] ROOM NO: [facility] AGE: 63 REPORT TYPE: eELECTROCARDIOGRAM SEX: M ADMITTING PHYSICIAN:Josette Ley DO ATTENDING PHYSICIAN:Josette Ley DO Order: [id number] Test Reason : sob Test Date/Time Stamp: SatMay 15 2024 22:31:59 Blood Pressure : / mmHG Vent. Rate : 114 BPM Atrial Rate : 114 BPM P-R Int : 136 ms QRS Dur : 142 ms QT Int : 366 ms P-R-T Axes : 068 115 -25 degrees QTc Int : 504 ms Atrial-sensed ventricular-paced rhythm Abnormal ECG When compared with ECG of 14-APR-2024 12:17, Vent. rate has increased BY 30 BPM Confirmed by MD TOLLIVER ILYAS ([id number]) on 06/08/2024 8:36:19 AM Referred By: Joey Ramon Confirmed by:ALCIDES TOLLIVER MD at [address] [address] PATIENT NAME: KOTA MONTES [facility] 2024-04-30 14:39:00 [facility] ([facility]) EMERGENCY PROVIDER REPORT REPORT#:[id number] REPORT STATUS: Signed DATE:04/30/24 TIME: 143 PATIENT: KOTA MONTES UNIT #: [id number] ROOM: BED: : 61 AGE: 63 SEX: M PCP PHYS: Jong Pollack MD SERVICE AUTHOR: Kiko Mukherjee MD REP SRV REP SRV TM: 1439 * ALL edits or amendments must be made on the electronic/computer document * HPI-Neck Pain Free Text HPI Notes Free Text HPI Notes 63 y/o male here with left sided neck pain radiating to left shoulder on and off for the last 3-4 weeks, but has gotten worse today with difficulty with ROM of his neck. he has pain radiating to left shoulder which also gives him difficulty with ROM of left shoulder and muscle tightness. he is currently in moderate pain. he has a pacemaker and cannot get an MRI of his neck, but can get a CT of his neck. he denies any LOC, but has mild numbness/tingling of his left shoulder /arm. he's had neck pain in the past, but not this severe. General Confirmed Patient Yes Patient Type New patient Initial Greet Date/Time 04/30/24 1347 Presentation Chief Complaint Neck pain, Stiff neck, L shoulder pain/upper back pain Hx Obtained From Patient Sudden in Onset? No Risk-Neck Pain Risk Stratification High Risk for Injury Risk factors reviewed, No risk factors Nexus C-Spine Criteria Post midline tenderness. No: Intoxicated, Altered LOC/alertness, Focal neuro deficit pres, Distracting injury pres. Review of Systems ROS Statements All systems rev neg except as marked. Focused Review of Systems Constitutional Denies: Chills, Fatigue, Fever, Lethargy, Malaise, Recent wt loss, Weakness - generalized. Respiratory Denies: Cough, non-productive, Cough, productive, Dyspnea on exertion, Hemoptysis, Parox nocturnal dyspnea, Pleuritic pain, Shortness of breath, Wheezing. Cardiovascular Denies: Chest pain, Dyspnea on exertion, Edema, Orthopnea, Palpitations, Parox nocturnal dyspnea, Syncope. GI Denies: Abdominal pain, Anorexia, Belching, Bloody/tarry stool, Constipation, Diarrhea, Dysphagia, Hematemesis, Hematochezia, Mucousy stool, Melena, Nausea, Rectal pain, Vomiting. Musculoskeletal Reports: Back pain (L upper back pain), Joint pain (L shoulder pain), Myalgia, Neck pain. Skin Denies: Rash. Neurologic Reports: Numbness, Tingling. Denies: Abnormal movement, Bladder dysfunction, Bowel dysfunction, Change LOC, Confusion, Dizziness, Focal weakness, Generalized weakness, Headache, Lightheaded, Problem walking, Seizure, Shaking, Slurred speech, Spinning sensation, Syncope, Unable to speak, Vision change. Past Medical History - Adult Stated Complaint NECK AND SHOULDER PAIN Allergies Coded Allergies: No Known Allergies (12/31/23) Home Medications Active Scripts Guaifenesin/Dextromethorphan (Mucinex Dm 1200/60 Mg) 1 TAB PO Q12H PRN CONGESTION Guaifenesin/Dextromethorphan (Mucinex Dm 1200/60 Mg) 1 TAB PO Q12H PRN CONGESTION #20 TABS Prov: 02/15/24 Amiodarone (Pacerone) 200 MG PO Q12HR Amiodarone (Pacerone) 200 MG PO Q12HR #60 TAB Prov: 02/24/24 Cephalexin (Keflex) 250 MG PO Q6H Cephalexin (Keflex) 250 MG PO Q6H #20 CAP Prov: 02/24/24 Prednisone 20 MG PO SPECIAL INST Prednisone 20 MG PO SPECIAL INST #11 TAB Prov: 02/24/24 Reported Medications Folic Acid 1 MG PO DAILY Thiamine (Vitamin B-1) 100 MG PO DAILY methocarbamoL (Robaxin) 750 MG PO TID Escitalopram (Lexapro) 20 MG PO DAILY Hydrocodone/Acetaminophen (HYDROcodone/APAP 5/325) 1 TAB PO Q6H PRN pain scale 4 -6 (use 1st) Apixaban (Eliquis) 5 MG PO BID Atorvastatin (Lipitor) 80 MG PO BEDTIME Pregabalin (Lyrica) 50 MG PO BID Metoprolol Tartrate (Lopressor) 12.5 MG PO Q12HR Ticagrelor (Brilinta) 90 MG PO Q12HR Bumetanide (Bumex) 1 MG PO BID 9A 5P Amiodarone (Pacerone) 200 MG PO BID Calculated Suicide Risk (nurs) No risk Review of Nursing Notes Rev avail, and agree Past Medical History: Reports: Coronary artery disease, Hypertension, Dyslipidemia. Additional Medical History History of NM Past Surgical History: Reports: CABG. Additional Surgical History Cardiac stents, right hip hardware Alcohol Use Alcohol use Drug Use Denies recreational drugs Smoking status for patients 13 years old or older: Never Smoker Physical Exam Vital Signs Vital Signs First Documented: Result Date Time Pulse Ox 97 04/30 1342 B/P 120/76 04/30 1342 O2 Delivery Room air 04/30 1342 Temp 36.7 04/30 1342 Pulse 84 04/30 1342 Resp 18 04/30 1342 Last Documented: Result Date Time Pulse Ox 97 04/30 1342 B/P 120/76 04/30 1342 O2 Delivery Room air 04/30 1342 Temp 36.7 04/30 1342 Pulse 84 04/30 1342 Resp 18 04/30 1342 Review of Vital Signs Reviewed Focused PE General/Const General/Const Awake, Alert, Well appearing, Well developed, Well hydrated, Well nourished, Cooperative, Not toxic appearing Distress/Hydration Distress moderate. MS Head Head Atraumatic, Normocephalic MS Neck Text/Dict Notes left paracervical tenderness, tightness, decreased ROM, mild bony tenderness, positive Spurling's test on left side. Resp/Chest Respiratory/Chest Atraumatic, Breath sounds NL, Breath sounds = bilat, No respiratory distress, No rales, No rhonchi, No wheezing, No retractions, No stridor, No chest tenderness, No chest wall deformity, No crepitus MS Back Text/Dict Notes left upper back mild tenderness/tightness, decreased ROM MS Upper Extrem Left Shoulder Tenderness present, ROM reduced. Negative: Swelling present, Ecchymosis present, Erythema present, Warmth present, Joint effusion present, Deformity present, Deformity c/w ant disloc, Abduction reduced, Can't hold at 90 deg abd, Deltoid sensory deficit, Open fracture present, Pulses distal absent, Pulses distal decreased, Neuro deficit present. Neurologic Neurologic No motor deficits, No sensory deficits Interpretation Diagnostics Lab Results Interpretation Results Recent Impressions: CAT SCAN - CT C-SPINE W/O CONT 04/30 1406 Report Impression - Status: SIGNED Entered: 04/30/2024 1433 IMPRESSION: No acute fracture of the cervical spine. Moderate to advanced degenerative findings, described above, with grade 2 anterolisthesis of C4 on C5. Chronic appearing fracture deformity of the left lateral 1st rib. Anjel Vick DO Neuroradiology Impression By: [email or web address] - Anjel Vick MD Imaging Statement Radiographic studies reviewed and considered in the medical decision-making. Re-Evaluation MDM ED Course Medication(s) Ordered Medication(s) Ordered: Central Nervous System Agents Sig/Alfonzo Start time Last Medication Dose Route Stop Time Status Admin Ketorolac 30 MG X1ED STA 04/30 1353 DC 04/30 Tromethamine IM 04/30 1354 1402 Eye, Ear, Nose And Throat (Een Sig/Alfonzo Start time Last Medication Dose Route Stop Time Status Admin Dexamethasone Sodium 10 MG X1ED STA 04/30 1353 DC 04/30 Phosphate IM 04/30 1354 1401 Differential Diagnosis )( Differential Diagnosis Cervical disc herniation, Cervical discogenic pain, Cervical facet syndrome, Cervical muscle spasm, Cervical myofascial pain, Cervical spondylosis, Cervical sprain/strain, Degen joint disease, Degenerative disc disease, Spondylosis, Strain Patient Discharge Departure Vital Signs/Condition Vital Signs First Documented: Result Date Time Pulse Ox 97 04/30 1342 B/P 120/76 04/30 1342 O2 Delivery Room air 04/30 1342 Temp 36.7 04/30 1342 Pulse 84 04/30 1342 Resp 18 04/30 1342 Last Documented: Result Date Time Pulse Ox 97 04/30 1342 B/P 120/76 04/30 1342 O2 Delivery Room air 04/30 1342 Temp 36.7 04/30 1342 Pulse 84 04/30 1342 Resp 18 04/30 1342 All vital signs available at the time of this entry have been reviewed. Condition Stable Clinical Impression Clinical Impression Primary Impression: Cervical radiculopathy due to degenerative joint disease of spine Secondary Impressions: Anterolisthesis of cervical spine Disposition Decision Discharge )( Discharged to Home Yes )( Time 1446 )( Date 04/30/24 Discharge/Care Plan Counseled Regarding Diagnosis, Imaging studies, Prescriptions, Need for follow- up Prescriptions medrol dose pack robaxin (Auto) Prescriptions Current Visit Scripts Methylprednisolone (Medrol 4 Mg Dosepak) 4 MG PO ASDIR Methylprednisolone (Medrol 4 Mg Dosepak) 4 MG PO ASDIR #1 PACKET Take as directed on package. Methocarbamol (Robaxin) 500 MG PO QID PRN PRN muscle spasm Methocarbamol (Robaxin) 500 MG PO QID PRN PRN muscle spasm #30 TABS Prescriptions Reviewed Risks, Benefits, Alternative treatment Patient Instructions ED Degenerative Disk Disease, ED Pinched Nerve in the Neck Additional Instructions rest, moist heat with epsom salt start oral steroids tomorrow may start robaxin tonight follow up with orthopedic entry specialist avoid straining neck or heavy lifting Referrals Provider Referral: Jong Cash MD Address: [facility] [address] [place] [address] Provider Referral: Andrea Dougherty MD Address: [facility] [address] [place] [address] Departure Forms WORK/SCHOOL EXCUSE VARIABLE May return to work/school 05/04/24 Discharge Note I have spoken with the patient and/or caregivers. I have explained the patient's condition, diagnoses and treatment plan based on the information available to me at this time. I have answered the patient's and/or caregiver's questions and addressed any concerns. The patient and/or caregivers have as good an understanding of the patient's diagnosis, condition and treatment plan as can be expected at this point. The vital signs have been stable. The patient's condition is stable and appropriate for discharge from the emergency department. The patient will pursue further outpatient evaluation with the primary care physician or other designated or consulting physician as outlined in the discharge instructions. The patient and/or caregivers are agreeable to this plan of care and follow-up instructions have been explained in detail. The patient and/or caregivers have received these instructions in written format and have expressed an understanding of the discharge instructions. The patient and/or caregivers are aware that any significant change in condition or worsening of symptoms should prompt an immediate return to this or the closest emergency department or a call to 1. at 1452 RPT #:[id number] END OF REPORT [facility] 2024-04-14 13:03:00 [facility] ([facility]) EMERGENCY PROVIDER REPORT REPORT#:[id number] REPORT STATUS: Signed DATE:04/14/24 TIME: 1303 PATIENT: KOTA MONTES UNIT #: [id number] ROOM: BED: : 61 AGE: 63 SEX: M PCP PHYS: Jong Pollack MD SERVICE AUTHOR: Kalpana Dickinson MD REP SRV REP SRV TM: 1303 * ALL edits or amendments must be made on the electronic/computer document * HPI-Dizziness/Weakness General Initial Greet Date/Time 04/14/24 1214 Presentation Chief Complaint Dizzy, Weakness, generalized Onset Occurred Days ago (3) Free Text HPI Notes Free Text HPI Notes Patient is 63-year-old male with medical history significant for hypertension, hyperlipidemia, coronary artery disease, coronary artery bypass graft, AICD, CHF , who presents to emergency department today with complaint of having feeling of generalized weakness, dizziness, lightheadedness. No vertigo, balance or vision issue. Symptoms started within the last 2 to 3 days. Denies having any specific chest pain or shortness of breath, denies having any weight gain or leg swelling. 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 Lynch, about 2 weeks ago, and he was advised to change from metoprolol 12.5 mg twice daily to metoprolol 25 mg once a day. Denies having any abdominal pain, nausea or vomiting. Comfortably ambulatory in the emergency department. Reports he is compliant with Ticagrelor and Eliquis. Risk-Dizziness/Weakness Risk Stratification NIH Stroke Scale NIH Stroke Scale Response Value NIHSS Applicable? No 0 Total 0 Review of Systems Focused Review of Systems Constitutional Denies: Chills, Fever. Eyes Denies: Blurred bilat. Ears/Nose/Throat Denies: Nasal congestion, Sore throat. Respiratory Denies: Cough, non-productive, Cough, productive, Shortness of breath, Wheezing. Cardiovascular Reports: Dyspnea on exertion. Denies: Chest pain, Edema. GI Denies: Abdominal pain, Nausea, Vomiting. Male Denies: Dysuria, Flank pain. Hematologic Denies: Bleeding, Bruising. Skin Denies: Rash. Neurologic Reports: Lightheaded. Denies: Headache. Psychiatric Denies: Agitation, Anxiety. Past Medical History - Adult Stated Complaint HEADACHE Allergies Coded Allergies: No Known Allergies (12/31/23) Home Medications Active Scripts Guaifenesin/Dextromethorphan (Mucinex Dm 1200/60 Mg) 1 TAB PO Q12H PRN CONGESTION Guaifenesin/Dextromethorphan (Mucinex Dm 1200/60 Mg) 1 TAB PO Q12H PRN CONGESTION #20 TABS Prov: 02/15/24 Amiodarone (Pacerone) 200 MG PO Q12HR Amiodarone (Pacerone) 200 MG PO Q12HR #60 TAB Prov: 02/24/24 Cephalexin (Keflex) 250 MG PO Q6H Cephalexin (Keflex) 250 MG PO Q6H #20 CAP Prov: 02/24/24 Prednisone 20 MG PO SPECIAL INST Prednisone 20 MG PO SPECIAL INST #11 TAB Prov: 02/24/24 Reported Medications Folic Acid 1 MG PO DAILY Thiamine (Vitamin B-1) 100 MG PO DAILY methocarbamoL (Robaxin) 750 MG PO TID Escitalopram (Lexapro) 20 MG PO DAILY Hydrocodone/Acetaminophen (HYDROcodone/APAP 5/325) 1 TAB PO Q6H PRN pain scale 4 -6 (use 1st) Apixaban (Eliquis) 5 MG PO BID Atorvastatin (Lipitor) 80 MG PO BEDTIME Pregabalin (Lyrica) 50 MG PO BID Metoprolol Tartrate (Lopressor) 12.5 MG PO Q12HR Ticagrelor (Brilinta) 90 MG PO Q12HR Bumetanide (Bumex) 1 MG PO BID 9A 5P Amiodarone (Pacerone) 200 MG PO BID Calculated Suicide Risk (nurs) No risk Past Medical History: Reports: Coronary artery disease, Hypertension, Dyslipidemia. Additional Medical History History of NM Past Surgical History: Reports: CABG. Additional Surgical History Cardiac stents, right hip hardware Alcohol Use Alcohol use Drug Use Denies recreational drugs Smoking status for patients 13 years old or older: Never Smoker Physical Exam Vital Signs Vital Signs First Documented: Result Date Time Pulse Ox 100 04/14 1218 B/P 148/85 04/14 1218 O2 Delivery Room air 04/14 1218 Temp 36.9 04/14 1218 Pulse 87 04/14 1218 Resp 18 04/14 1218 Last Documented: Result Date Time Pulse Ox 100 04/14 1218 B/P 148/85 04/14 1218 O2 Delivery Room air 04/14 1218 Temp 36.9 02/11 1218 Pulse 87 04/14 1218 Resp 18 04/14 1218 Review of Vital Signs Reviewed Focused PE General/Const General/Const Awake, Alert, No acute distress, Well appearing, Well developed , Well hydrated, Well nourished, Cooperative, Not toxic appearing MS Head Head Atraumatic, Normocephalic Eyes Eyes PERRL, EOMI Ears/Nose/Throat Ears/Nose/Throat Airway patent, Mucous membranes moist MS Neck Neck Supple, No meningismus Resp/Chest Respiratory/Chest Breath sounds NL, Breath sounds = bilat, No respiratory distress, No rhonchi, No wheezing, No retractions Cardiovascular Cardiovascular Heart rate NL, Regular rhythm, Heart sounds NL, No murmurs Abdomen/GI Abdomen/GI Soft, Non-tender, McBurney's non-tender, No guarding, No rebound, No distention MS Back Back Inspection NL, Full range of motion Lymphatic Lymphatic No gross adenopathy MS Lower Extrem Lower Ext/Pelvis/MS Inspection NL, Full range of motion Skin Skin No rash, Warm, Dry Neurologic Neurologic Oriented X3, Speech NL, No motor deficits, No sensory deficits, Memory NL, Gait NL Psychiatric Psychiatric Affect NL, Mood NL Interpretation Diagnostics Lab Results Interpretation Results Laboratory Tests: 04/14 04/14 04/14 04/14 1234 1236 1240 1256 Chemistry POC Sodium (128 - 145 mmol/L) 137 POC Potassium (3.6 - 5.1 mmol/L) 4.8 POC Chloride (98 - 108 mmol/L) 98 POC Total CO2 (18 - 33 mmol/L) 33 POC Anion Gap (4 - 14 mmol/L) 6 POC BUN (7 - 22 mg/dL) 18 POC Creatinine (0.6 - 1.2 mg/dL) 1.2 Est GFR (CKD-EPI 2020) (>=60 mL/min) 68 POC Glucose (73 - 118 mg/dL) 143 H POC Calcium (8.0 - 10.3 mg/dL) 9.5 POC Total Bilirubin (0.2 - 1.6 mg/dL) 0.8 POC AST (11 - 38 U/L) 30 POC ALT (10 - 47 U/L) 28 POC Alk Phosphatase (53 - 128 U/L) 68 POC Troponin I (<0.05 ng/mL) <0.05 POC Total Protein (6.4 - 8.1 g/dL) 7.3 POC Albumin (3.3 - 5.5 g/dL) 4.1 Hematology POC WBC (3.9 - 9.4 10 3/uL) 8.1 POC RBC (4.14 - 5.52 10 6/uL) 4.77 POC Hgb (11.9 - 16.7 g/dL) 14.8 POC Hct (36.1 - 49.4 %) 44.5 POC MCV (83.2 - 96.0 fL) 93.3 POC MCH (27.1 - 32.5 pg) 31.0 POC MCHC (31.0 - 35.8 g/dL) 33.3 POC RDW Coeff of Nakul (12.0 - 15.0 %) 14.1 POC Platelet Count (155 - 330 10 3/uL) 199 POC MPV (8.7 - 12.6 fL) 9.6 POC Mixed Cells % (3.2 - 16.9 %) 2.9 L POC Neut # (2.2 - 6.4 10 3/uL) 6.4 POC Lymph # (Auto) (0.9 - 3.0 10 3/uL) 1.5 POC Mixed Cells # (0.2 - 1.1 10 3/uL) 0.2 POC Lymphocytes % (16.8 - 42.5 %) 18.7 POC Neutrophils % (46.4 - 74.7 %) 78.4 H Urines POC Urine Color (Yellow) Yellow POC Urine Appearance (Clear) Clear POC Urine pH (5.0 - 8.0) 7.0 POC Ur Specif Lutts (1.001 - 1.035) 1.015 POC Urine Protein (Negative) Negative POC Ur Glucose (UA) (Negative) Negative POC Urine Ketones (Negative) Negative POC Urine Blood (Negative) Negative POC Urine Nitrite (Negative) Negative POC Urine Bilirubin (Negative) Negative POC Urine Urobilinogen (0.2 - 1.0 E.U/dL) 0.2 POC U Leukocyte Esteras (Negative) Negative 04/14 142 Chemistry POC B-Natriuretic Pept (<100 pg/mL) 152 H Recent Impressions: CAT SCAN - CTA CHEST FOR PE 04/14 1331 Report Impression - Status: SIGNED Entered: 04/14/2024 0802 IMPRESSION: No pulmonary embolus or aortic dissection seen. Atelectasis and emphysematous changes. Impression By: [email or web address] - Elsa Montanez MD ECG #1 Interpretation Text/Dict Note EKG at 1217 shows a rate of 84 regular atrial sensed ventricular paced rhythm, no signs of STEMI This EKG is similar in appearance to previous one from February 2024 Date 04/14/24 Time 1217 Interpreted by ED physician Re-Evaluation MDM Free Text MDM Notes Free Text MDM Notes 63 year old male here with the above history and physical exam. He is remarkably well appearing, afebrile, non toxic. Physical exam is reassuring and non focal. DDx -- ACS, CHF worsening, pneumonia, PE, anemia, electrolyte abnormality, dehydration Will obtain EKG, labs, imaging. Re-Evaluation/Progress #1 Text/Dict Note Patient is happy and smiling, symptom free at this time. EKG, labs, imaging, all have been reassuring. I discussed with patient that given his medical history, would still recommend hospitalization, had an AMA discussion but states that he knows himself and he feels very well, does not think he needs to be admitted. Patient insisting on being discharged, pacing, repeatedly asking to take out the IV. Given the above reassuring work up, he does not want anything further done. Has capacity to make medical decisions. 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 Lynch reviewed all information and wants to see him in clinic. Discussed return precautions with patient, he is understanding and agreeable. Time of Re-Eval 1438 Re-Eval Status Improved ED Course Medication(s) Ordered Medication(s) Ordered: Diagnostic Agents Sig/Alfonzo Start time Last Medication Dose Route Stop Time Status Admin Iopamidol 0 .STK-MED ONE 04/14 1305 DC .ROUTE Electrolytic, Caloric, And Leandro Sig/Alfonzo Start time Last Medication Dose Route Stop Time Status Admin Sodium Chloride 100 ML .STK-MED ONE 04/14 1305 DC IV Patient Discharge Departure Vital Signs/Condition Vital Signs First Documented: Result Date Time Pulse Ox 100 04/14 1218 B/P 148/85 04/14 121 O2 Delivery Room air 04/14 1217 Temp 36.9 04/14 1217 Pulse 87 04/14 1218 Resp 18 04/14 1217 Last Documented: Result Date Time Pulse Ox 100 04/14 1217 B/P 148/85 04/14 1217 O2 Delivery Room air 04/14 1217 Temp 36.9 04/14 1217 Pulse 87 04/14 1217 Resp 18 04/14 1217 All vital signs available at the time of this entry have been reviewed. Clinical Impression Clinical Impression Primary Impression: Dizziness Disposition Decision Discharge )( Discharged to Home Yes )( Time 1438 )( Date 04/14/24 Discharge/Care Plan Counseled Regarding Diagnosis, Lab results, Imaging studies, Prescriptions, Need for follow-up, When to return to ED Patient Instructions ED Dizziness, Uncertain Cause Additional Instructions Please call Dr. Lynch's office. If you change your mind regarding wanting to be admitted to hospital, please return at any time. at 0749 [facility] #:[id number] END OF REPORT [facility] 2024-04-14 12:17:00 [id number] [place] [id number] PATIENT NAME: KOTA MONTES ADMIT DATE: 04/14/24 ACCOUNT NO: [id number] ROOM NO: AGE: 63 REPORT TYPE: eELECTROCARDIOGRAM SEX: M ADMITTING PHYSICIAN: ATTENDING PHYSICIAN: Order: [id number] Test Reason : feeling weak Test Date/Time Stamp: SatApr 14 2024 12:17:05 Blood Pressure : / mmHG Vent. Rate : 084 BPM Atrial Rate : 084 BPM P-R Int : 146 ms QRS Dur : 148 ms QT Int : 442 ms P-R-T Axes : 058 -24 101 degrees QTc Int : 522 ms Atrial-sensed ventricular-paced rhythm Abnormal ECG When compared with ECG of 22-FEB-2024 03:26, Vent. rate has decreased BY 2 BPM Confirmed by SAMUEL MARION ([id number]) on 04/16/2024 10:54:40 AM Referred By: Self Referred Confirmed by:SAMUEL MARION at [address] [place] [phone] PATIENT NAME: KOTA MONTES [facility] 2024-03-08 13:09:00 [id number] [facility] [address] [facility] [address] PATIENT NAME: KOTA MONTES ADMIT DATE: 02/22/24 ACCOUNT NO: [id number] ROOM NO: [place] [address] AGE: 63 REPORT TYPE: 360 - QUERY RESPONSE DOCUMENT SEX: M ADMITTING PHYSICIAN:Pete Vang MD ATTENDING PHYSICIAN:Pete Vang MD Provider Query QUERY TEXT: Condition General 360MD Query related questions should be directed to:[facility] Coding Query Helpline [Based on your medical judgment and the clinical indicators listed below please document the diagnosis for which you are evaluating, treating or monitoring for this patient ( (implantable cardioverter-defibrillator) malfunction was confirmed, (implantable cardioverter-defibrillator) malfunction was ruled out , or other more appropriate diagnosis)? The patient's Clinical Indicators include: patient reports increased movement of AICD and has a thick adherent scab overlying the generator site - H AND P REPORT 02/22/2024 IC s/p ASSOCIATE SOFTWARE ENGINEER-D placement by Dr. Cristino POWELL 01/02/24 (implantable cardioverter-defibrillator) malfunction - CARDIOLOGY CONSULTATION 02/22/2024 epeat CXR to r/o any change - CARDIOLOGY CONSULTATION 02/22/2024 - doubt Twidder syndrome- CARDIOLOGY CONSULTATION 02/22/2024 - device interrogation ordered - CARDIOLOGY CONSULTATION 02/22/2024 chronic systolic CHF - cardiology progress notes 02/23/2024 Options provided: -- Respond - Create new note now -- Disagree - Not applicable / Not valid -- Disagree - Clinically unable to determine / Unknown -- Assign to another provider QUERY RESPONSE: AICD in situ Query created by: CHAGO CONDON on 02/28/2024 1:21 AM at 1309 PATIENT NAME: KOTA MONTES [facility] 2024-02-24 22:23:00 [facility] ([facility]) Hospitalist D/C Summary REPORT #: [id number] REPORT STATUS: Signed DATE: 02/24/24 TIME: 2222 PATIENT: KOTA MONTES UNIT #: [id number] ROOM #: [place] [address] BED: 1 : 61 AGE: 63 SEX: M ATTEND: Pete Vang MD ADM AUTHOR: Pete Vang MD ATTENTION *EDITS and/or ADDENDA must be made in Patient Keeper for this note. * * Edits and ammendments created in [employer] are not visible * * in Patient Keeper or the legal medical record ([facility]). * Note Date: 02/24/24 22:23 -- PROBLEMS/PROCEDURES -- ADMISSION DATE: 02/22/2024 ADMITTING DIAGNOSIS: - Acute on chronic systolic (congestive) heart failure - Acute respiratory failure with hypoxia - AICD problem - Atrial fibrillation with RVR - CAD (coronary artery disease) - Full code status - Hyperlipidemia - Hypertension - ICD (implantable cardioverter-defibrillator) malfunction - Ischemic cardiomyopathy - Left bundle-branch block, unspecified - Medical non-compliance - On deep vein thrombosis (DVT) prophylaxis - Presence of automatic (implantable) cardiac defibrillator - Tobacco abuse - Unspecified atrial fibrillation - Acute hypoxic respiratory failure - Acute kidney injury - Acute on chronic systolic (congestive) heart failure - Anxiety disorder, unspecified - CAD (coronary artery disease) - Full code status - Heart failure, unspecified - Hyperlipidemia - Hypertension - Hypertensive heart disease with heart failure - Hyponatremia - On deep vein thrombosis (DVT) prophylaxis - Tobacco abuse - Unspecified atrial fibrillation - Acute hypoxic respiratory failure - Acute kidney injury - Acute on chronic systolic (congestive) heart failure - Anxiety disorder, unspecified - CAD (coronary artery disease) - Full code status - Heart failure, unspecified - Hyperlipidemia - Hypertension - Hypertensive heart disease with heart failure - Hyponatremia - On deep vein thrombosis (DVT) prophylaxis - Tobacco abuse - Unspecified atrial fibrillation - Acute blood loss anemia - Acute CHF - Acute decompensated heart failure - Acute kidney failure, unspecified - Acute kidney injury - Acute on chronic systolic (congestive) heart failure - Acute posthemorrhagic anemia - Acute respiratory failure with hypercapnia - Acute respiratory failure with hypoxia - Acute respiratory failure with hypoxia and hypercapnia - Anemia - Atherosclerotic heart disease of [place] coronary artery without angina pectoris - Atrial fibrillation with RVR - Cardiogenic shock - Flash pulmonary edema - Hyperlipidemia - Hypertension - Hypertensive heart disease with heart failure - Left bundle-branch block, unspecified - Presence of aortocoronary bypass graft - Presence of automatic (implantable) cardiac defibrillator - Rheumatic disorders of both mitral and aortic valves - Systolic dysfunction with acute on chronic heart failure - Unspecified atrial fibrillation DISCHARGE DATE: 02/24/24 DISCHARGE DIAGNOSIS: - Acute on chronic systolic (congestive) heart failure - Acute respiratory failure with hypoxia - AICD problem - Atrial fibrillation with RVR - CAD (coronary artery disease) - Full code status - Hyperlipidemia - Hypertension - ICD (implantable cardioverter-defibrillator) malfunction - Ischemic cardiomyopathy - Left bundle-branch block, unspecified - Medical non-compliance - On deep vein thrombosis (DVT) prophylaxis - Presence of automatic (implantable) cardiac defibrillator - Tobacco abuse - Unspecified atrial fibrillation - Acute hypoxic respiratory failure - Acute kidney injury - Acute on chronic systolic (congestive) heart failure - Anxiety disorder, unspecified - CAD (coronary artery disease) - Full code status - Heart failure, unspecified - Hyperlipidemia - Hypertension - Hypertensive heart disease with heart failure - Hyponatremia - On deep vein thrombosis (DVT) prophylaxis - Tobacco abuse - Unspecified atrial fibrillation - Acute hypoxic respiratory failure - Acute kidney injury - Acute on chronic systolic (congestive) heart failure - Anxiety disorder, unspecified - CAD (coronary artery disease) - Full code status - Heart failure, unspecified - Hyperlipidemia - Hypertension - Hypertensive heart disease with heart failure - Hyponatremia - On deep vein thrombosis (DVT) prophylaxis - Tobacco abuse - Unspecified atrial fibrillation -- HOSPITAL COURSE -- HOSPITAL COURSE: -year-old male with past medical history of CAD s/p CABG x 2, ischemic cardiomyopathy, AICD in situ, hypertension, dyslipidemia, and alcohol use presented to the hospital complaining of nausea, vomiting, diarrhea, abdominal cramps, and acute exacerbation of CHF. During his previous hospitalization, the patient left AGAINST MEDICAL ADVICE. He returned hours later due to worsening dyspnea. During his hospitalization, the patient was treated with broad-spectrum antibiotics for healthcare associated pneumonia. Even upon readmission, the patient stated that he would not stay in the hospital for long. Patient was also complaining about his ICD being mobile within its pocket. The ASSOCIATE SOFTWARE ENGINEER T was placed by Dr. Cristino Parker on 01/02/2024. It was interrogated during his hospitalization and found to be working appropriately. Patient had an appropriate scab at the site of incision. The patient was once again advised to avoid manual manipulation of the ICD. Patient remained on diuretics throughout this hospitalization. At the time of discharge, he was advised to continue Bumex 1 g p.o. twice daily. The patient was discharged home on a steroid taper and oral antibiotics. -- DISCHARGE MEDICATIONS -- ALLERGIES - No Known Allergies ( UNKNOWN - Allergy ) DISCHARGE MEDICATIONS - Amiodarone Tab (Cordarone Tab) 200 MG PO BID - Amiodarone Tab (Cordarone Tab) 200MG PO Q12HR, Disp: 60 tablet, Refills: 0 - Apixaban Tab (Eliquis Tab) 5 MG PO BID - Atorvastatin Tab (Lipitor Tab) 80 MG PO BEDTIME - bumetanide tablet 1 MG PO BID 9A 5P - Cephalexin Cap (Keflex Cap) 250 MG PO Q6H, Disp: 20 capsule, Refills: 0 - Folic Acid Tab (Folvite Tab) 1 MG PO DAILY - HYDROcodone/APAP 5/325 Tab (Corinne 5/325 Tab) 1 TAB PO Q6H PRN pain scale 4-6 (use 1st) - Lexapro tab (escitalopram oxalate) 20 MG PO DAILY - Methocarbamol Tab (Robaxin Tab) 750 MG PO TID - Metoprolol Tartrate Tab (Lopressor Tab) 12.5 MG PO Q12HR - Mucinex DM 60 mg-1,200 mg tablet,extended release (dextromethorphan-guaifenesin) 1 TAB PO Q12H PRN congestion , Disp: 20 TABLETS, Refills: 0 - predniSONE Tab (Deltasone Tab) 20 MG PO (take 2 tabs daily x 3 days, then 1 tabs daily x 3 days, t...), Disp: 11 tablet, Refills: 0 - Pregabalin Cap (Lyrica Cap) 50 MG PO BID - Thiamine Tab (Vitamin B-1 Tab) 100 MG PO DAILY - Ticagrelor Tab (Brilinta Tab) 90 MG PO Q12HR -- DISCHARGE INSTRUCTIONS -- PENDING LABS/TESTS AT DISCHARGE PENDING LABS: none PENDING TESTS: none Admission Orders Discharge Follow Up In 1-2 weeks; In 1-2 weeks; JOEY DAILY MD; SAMUEL MARION MD; In 1-2 weeks; In 1-2 weeks; In 1-2 weeks; ARLETTE:Joey Daily MD; Samuel Yoon MD Details: Order number: [id number] Category: ADT - Admission Orders Order status: Transmitted Details: Consulting provider 1: ARLETTE:Joey Daily MD Consulting provider 1: . Consult follow up timeframe: In 1-2 weeks Consulting provider 2: Samuel Yoon MD Consult follow up timeframe: In 1-2 weeks Ordered by: Pete Vang MD Feb 24, 2024 4:31pm Entered by: Pete Vang MD Service date: Feb 24, 2024 4:30pm PK Discharge Orders DC Order - No eCQM 2019.2 Details: Discharge w/Instructions Jong Roman MD Details: Order number: [id number] Category: PKDC - PK Discharge Orders Order status: Transmitted Details: Discharge order: Yes Discharge to: Home/Self Care Diet: Cardiac Activity: Resume Normal Activity As Tolerated PCP: GRIFFIN:Jong Pollack MD PCP follow up timeframe: In 1-2 weeks Additional Discharge Routines: PCP Follow-Up Ordered by: Pete Vang MD Feb 24, 2024 4:31pm Entered by: Pete aVng MD Service date: Feb 24, 2024 4:30pm Emergency instructions: The patient was instructed to present to the nearest Emergency Department or call 911 should their symptoms return or worsen. ADDTIONAL DISCHARGE INSTRUCTIONS: Emergency Instructions: The patient was instructed to present to the nearest Emergency Department or call 911 should their symptoms return or worsen.; -- OBJECTIVE -- EXAM: General: Well developed, well nourished, in no apparent distress. Head: Normocephalic, atraumatic. Eyes: conjunctiva and sclera clear, without nystagmus, lids normal Ears: grossly normal hearing Nose: No deformity Mouth: normal mucosa Neck: Supple Chest: Grossly normal appearance. Lungs: Clear bilaterally with normal respiratory effort. Heart: Regular rate and rhythm, normal S1, S2, no murmurs Abdomen: Soft, non-tender. Musculoskeletal: No deformity, no scoliosis noted of thoracic or lumbar spine, joint ROM grossly normal, normal gait and station. Extremities: 1+ edema in BLEs. Neurological: No focal deficits, cranial nerves II-XII grossly intact, normal sensation, normal reflexes, normal coordination, normal muscle strength, normal tone. Pulses: Pulses normal in all extremities. Skin: Intact without significant lesions, or rashes. Lymph Nodes: No significant cervical node adenopathy. Psychiatric: Alert and oriented to time, person, place. Normal mood and affect, intact judgment and insight. at 1759 ATTENTION *EDITS and/or ADDENDA must be made in Patient Keeper for this note. * * Edits and ammendments created in [employer] are not visible * * in Patient Keeper or the legal medical record ([facility]). * [facility] #: [id number] END OF REPORT [facility] 2024-02-24 16:31:00 [facility] ([facility]) Med Order Sheet REPORT #: [id number] REPORT STATUS: Signed DATE: 02/24/24 TIME: 1631 PATIENT: KOTA MONTES UNIT #: [id number] ROOM #: [id number] BED: 1 : 61 AGE: 63 SEX: M ATTEND: Pete Vang MD ADM AUTHOR: Pete Vang MD ATTENTION *EDITS and/or ADDENDA must be made in Patient Keeper for this note. * * Edits and ammendments created in [facility] are not visible * * in Patient Keeper or the legal medical record ([facility]). * Discharge Medication Reconciliation DISCHARGE MEDICATION LIST Amiodarone Tab (Cordarone Tab) Dose: 200MG PO Q12HR, Disp: 60 tablet, Refills: 0 Apixaban Tab (Eliquis Tab) Dose: 5 MG PO BID Atorvastatin Tab (Lipitor Tab) Dose: 80 MG PO BEDTIME bumetanide tablet Dose: 1 MG PO BID 9A 5P Folic Acid Tab (Folvite Tab) Dose: 1 MG PO DAILY HYDROcodone/APAP 5/325 Tab (Corinne 5/325 Tab) Dose: 1 TAB PO Q6H PRN pain scale 4-6 (use 1st) Lexapro tab (escitalopram oxalate) Dose: 20 MG PO DAILY Methocarbamol Tab (Robaxin Tab) Dose: 750 MG PO TID Metoprolol Tartrate Tab (Lopressor Tab) Dose: 12.5 MG PO Q12HR Pregabalin Cap (Lyrica Cap) Dose: 50 MG PO BID Thiamine Tab (Vitamin B-1 Tab) Dose: 100 MG PO DAILY Ticagrelor Tab (Brilinta Tab) Dose: 90 MG PO Q12HR Hosp: Cephalexin Cap (Keflex Cap) Dose: 250 MG PO Q6H, Disp: 20 capsule, Refills: 0 Hosp: predniSONE Tab (Deltasone Tab) Dose: 20 MG PO, Disp: 11 tablet, Refills: 0 - take 2 tabs daily x 3 days, then 1 tabs daily x 3 days, then 1/2 tab daily x 4 days STOPPED HOSPITAL MEDICATIONS Dc'd: Albuterol/Ipratrop Neb Soln (Duoneb Neb Soln) 3ML NEB RTQ6H PRN wheezing / shortness of breathDc'd: ALPRAZolam Tab (Xanax Tab) 0.25MG PO BID PRN agitation or anxietyDc'd: Aspirin Chewable Tab (Aspirin Chewable Tab) 81MG PO DAILYDc'd: Cefepime Inj (Maxipime Inj) 2GM IV Q12Hin Water For Inj,Sterile (Sterile Water) 20ML (Total 20 ML) Dc'd: predniSONE Tab (Deltasone Tab) 40MG PO DAILYDc'd: Vancomycin Inj 750MG IV Q12Hin Sodium Chloride 0.9% (NS) 250ML (Total 250 ML) Dc'd: Vancomycin Rx To Dose (Vancomycin Rx To Dose) 1EACH IV ASDIR PRN as per vancomycin level at 1631 ATTENTION *EDITS and/or ADDENDA must be made in Patient Keeper for this note. * * Edits and ammendments created in [facility] are not visible * * in Patient Keeper or the legal medical record ([facility]). * [facility] #: [id number] END OF REPORT [facility] 2024-02-24 15:26:00 [facility] ([facility]) Pulmonology Progress Note REPORT #: [id number] REPORT STATUS: Signed DATE: 02/24/24 TIME: 1526 PATIENT: KOTA MONTES UNIT #: [id number] ROOM #: [id number] BED: 1 : 61 AGE: 63 SEX: M ATTEND: Pete Vang MD ADM AUTHOR: Joey Daily MD ATTENTION *EDITS and/or ADDENDA must be made in Patient Keeper for this note. * * Edits and ammendments created in [employer] are not visible * * in Patient Keeper or the legal medical record ([facility]). * Note Date: 02/24/24 15:26 -- ASSESSMENT/PLAN -- GENERAL ASSESSMENT: [facility] Pulmonary Progress Note Assessment Community acquired pneumonia Acute bronchitis Acute on chronic HFrEF Exacerbation Likely COPD exacerbation HTN HLD CAD Anxiety Former smoker PLAN: - Chest x-ray reviewed, appears to have mild infiltrates on the right, - CT chest 02/23 reviewed. No acute abnormalities and significant improvement in infiltrates when compared to CT chest done on 12/25 - currently on room air, supplemental oxygen to keep O2 saturation > 92% - agree with empiric antibiotic therapy for bronchitis - sputum culture, MRSA screen ordered - start bronchodilator, avoid albuterol due to hx of afib - Start p.o. prednisone - Patient smoked for over 40 years 2 packs a day. Very significant smoking history and likely has underlying obstructive disease i.e. COPD. Discussed with patient needs PFTs and outpatient workup is currently only on as needed albuterol as outpatient with recurrent hospitalizations - PFT as outpatient - Check at home ambulatory test prior to discharge. Patient can be discharged from pulmonary standpoint with a tapering dose of steroids and Keflex x 5 days. Thank you for the consultation. We will follow with you. --------- Subjective Feels significantly better Ambulating without events On room air this morning HPI: Mr Montes is a 63 y.o. male with past medical hx of HTN, HLD, CAD, CHF, CABG 06/25, AICD 01/01 presented to ED for shortness of breath. Patient started coughing about a week, seen at urgent care clinic diagnosed with acute bronchitis finished oral antibiotic therapy with some improvement of symptoms. About 2 days ago, he noted gurgling in his chest, symptoms progressed now associated with dyspnea on exertion. He went back to the urgent care clinic, chest x-ray was done and was told he has pneumonia in his right lung. Transported to [facility] ED for admission. Pulmonary consulted for further evaluation and management of pneumonia. Patient seen awake and alert, no distress on room air, mild dyspnea on exertion, occasional cough. Sees Dr. Childs. Thank you for this consultation. We will follow with you. Please call for any concerns. Past medical history: HTN, HLD, CAD, CHF, afib PSurgHx: CABG in June 2023, PCI with stent , Multiple intubations FamHx: nc SocHx: ETOH quit June 2023, Ex smoker 2pk/40 yrs, recently quit vaping Review of systems: 14 point review of system negative unless listed above Physical Exam General: NAD Eyes: Anicteric sclerae. Mouth: MMM Neck: Supple. CV: Paced. Normal S1 and S2. Pulm: Good effort, bibasal rales, no wheezing Abdomen: Soft, nontender. Extremities: Trace lower extremity edema. Skin: Warm, dry. Neuro: Awake, no gross deficits Psych: good affect -- EXAM -- VITALS (02/22 15:26 - 02/23 15:26): Blood pressure: 97/70 (97/61 - 122/78) Respiratory rate: 16 (14 - 18) Temperature C: 36.8 (36.4 - 36.8) Temperature source: Oral Pulse Rate: 80 (80 - 89) -- DATA -- MEDICATIONS ALPRAZolam 0.25 MG PO BID PRN CITALOPRAM HYDROBROMIDE 40 MG PO DAILY TICAGRELOR 90 MG PO Q12HR THIAMINE HCL 100 MG PO DAILY FOLIC ACID 1 MG PO DAILY IPRATROPIUM/ALBUTEROL SULFATE 3 ML NEB RTQ6H PRN ATORVASTATIN CALCIUM 80 MG PO BEDTIME APIXABAN 5 MG PO BID CEFEPIME HCL with/in WATER FOR INJECTION,STERILE 2 GM IV Q12H ASPIRIN 81 MG PO DAILY AMIODARONE HCL 200 MG PO Q12HR PREGABALIN 50 MG PO BID VANCOMYCIN PHARMACY TO DOSE 1 EACH IV ASDIR (PRN) methocarbamoL 750 MG PO TID VANCOMYCIN HCL with/in SODIUM CHLORIDE 0.9% 750 MG IV Q12H BUMETANIDE 1 MG PO BID METOPROLOL TARTRATE 12.5 MG PO Q12HR HYDROcodone BITARTRATE/APAP 1 TAB PO Q6H PRN LAB RESULTS BASIC METABOLIC PANEL (02/24/24 06:54) SODIUM 141 CALCIUM 9.5 BUN/CREATININE RATIO 13.8 BLOOD UREA NITROGEN 18 GLUCOSE 97 CREATININE 1.3 GLOMERULAR FILTRATION RATE >=60 max estimate CHLORIDE 102 POTASSIUM 3.9 ANION GAP 10.5 CARBON DIOXIDE 32H H at 1530 ATTENTION *EDITS and/or ADDENDA must be made in Patient Keeper for this note. * * Edits and ammendments created in [facility] are not visible * * in Patient Keeper or the legal medical record ([facility]). * RPT #: [id number] END OF REPORT [facility] 2024-02-23 14:40:00 [facility] ([facility]) Pulmonology Consultation REPORT #: [id number] REPORT STATUS: Signed DATE: 02/23/24 TIME: 1440 PATIENT: KOTA MONTES UNIT #: [id number] ROOM #: [id number] BED: 1 : 61 AGE: 63 SEX: M ATTEND: Pete Vang MD ADM AUTHOR: lEeonora Dobson ATTENTION *EDITS and/or ADDENDA must be made in Patient Keeper for this note. * * Edits and ammendments created in [facility] are not visible * * in Patient Keeper or the legal medical record ([facility]). * Note Date: 02/23/24 14:40 -- ASSESSMENT/PLAN -- GENERAL ASSESSMENT: [facility] Pulmonary Progress Note Assessment Community acquired pneumonia Acute bronchitis Acute on chronic HFrEF Exacerbation HTN HLD CAD Anxiety Former smoker PLAN: - Chest x-ray reviewed, appears to have mild infiltrates on the right, will order chest CT scan in am. - currently on room air, supplemental oxygen to keep O2 saturation > 92% - agree with empiric antibiotic therapy - follow up strep pneumo, legionella Ag - sputum culture, MRSA screen ordered - start bronchodilator, avoid albuterol due to hx of afib - given the patient's extensive smoking history, recommends COPD work up, PFT as outpatient Thank you for the consultation. We will follow with you. --------- HPI: Mr Montes is a 63 y.o. male with past medical hx of HTN, HLD, CAD, CHF, CABG 06/25, AICD 01/01 presented to ED for shortness of breath. Patient started coughing about a week, seen at urgent care clinic diagnosed with acute bronchitis finished oral antibiotic therapy with some improvement of symptoms. About 2 days ago, he noted gurgling in his chest, symptoms progressed now associated with dyspnea on exertion. He went back to the urgent care clinic, chest x-ray was done and was told he has pneumonia in his right lung. Transported to [facility] ED for admission. Pulmonary consulted for further evaluation and management of pneumonia. Patient seen awake and alert, no distress on room air, mild dyspnea on exertion, occasional cough. Sees Dr. Childs. Thank you for this consultation. We will follow with you. Please call for any concerns. Past medical history: HTN, HLD, CAD, CHF, afib PSurgHx: CABG in June 2023, PCI with stent , Multiple intubations FamHx: nc SocHx: ETOH quit June 2023, Ex smoker 2pk/40 yrs, recently quit vaping Review of systems: 14 point review of system negative unless listed above Physical Exam General: NAD Eyes: Anicteric sclerae. Mouth: MMM Neck: Supple. CV: Paced. Normal S1 and S2. Pulm: Good effort, bibasal rales, no wheezing Abdomen: Soft, nontender. Extremities: Trace lower extremity edema. Skin: Warm, dry. Neuro: Awake, no gross deficits Psych: good affect -- HISTORY -- PAST MEDICAL HISTORY: - Acute hypoxic respiratory failure - Acute kidney injury - Acute on chronic systolic (congestive) heart failure - Anxiety disorder, unspecified - CAD (coronary artery disease) - Full code status - Heart failure, unspecified - Hyperlipidemia - Hypertension - Hypertensive heart disease with heart failure - Hyponatremia - On deep vein thrombosis (DVT) prophylaxis - Tobacco abuse - Unspecified atrial fibrillation - Acute hypoxic respiratory failure - Acute kidney injury - Acute on chronic systolic (congestive) heart failure - Anxiety disorder, unspecified - CAD (coronary artery disease) - Full code status - Heart failure, unspecified - Hyperlipidemia - Hypertension - Hypertensive heart disease with heart failure - Hyponatremia - On deep vein thrombosis (DVT) prophylaxis - Tobacco abuse - Unspecified atrial fibrillation - Acute blood loss anemia - Acute CHF - Acute decompensated heart failure - Acute kidney failure, unspecified - Acute kidney injury - Acute on chronic systolic (congestive) heart failure - Acute posthemorrhagic anemia - Acute respiratory failure with hypercapnia - Acute respiratory failure with hypoxia - Acute respiratory failure with hypoxia and hypercapnia - Anemia - Atherosclerotic heart disease of [place] coronary artery without angina pectoris - Atrial fibrillation with RVR - Cardiogenic shock - Flash pulmonary edema - Hyperlipidemia - Hypertension - Hypertensive heart disease with heart failure - Left bundle-branch block, unspecified - Presence of aortocoronary bypass graft - Presence of automatic (implantable) cardiac defibrillator - Rheumatic disorders of both mitral and aortic valves - Systolic dysfunction with acute on chronic heart failure - Unspecified atrial fibrillation PAST MEDICAL HISTORY: CAD s/p 2v CAB (06/25) and PCI (, 06/24, 12/24, 07/25) Ischemic cardiomyopathy (EF 25-29%) HTN HLD h/o ETOH abuse tobacco abuse anxiety/depression medical non-compliance PAST SURGICAL HISTORY: CABG x2v (June) ICD placement CHIEF COMPLAINT: cough and chest discomfort Family History FAMILY HISTORY: HTN DM Social History Tobacco use: PACK/DAY 1 YEARS USED 47 DETAILS/COMMENTS: former Vaping/Inhaled solvents: DETAILS/COMMENTS: Currently vapes Alcohol use: DETAILS/COMMENTS: former Drug use: DETAILS/COMMENTS: Denies recent hx MARITAL STATUS: 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 with -- EXAM -- VITALS (02/21 14:40 - 02/22 14:40): Temperature C: 36.4 (36.3 - 36.5) Blood pressure: 105/70 (100/65 - 115/85) Pulse Rate: 80 (80 - 93) Respiratory rate: 14 (14 - 16) -- DATA -- MEDICATIONS CITALOPRAM HYDROBROMIDE 40 MG PO DAILY TICAGRELOR 90 MG PO Q12HR FUROSEMIDE 40 MG PO QAM THIAMINE HCL 100 MG PO DAILY FOLIC ACID 1 MG PO DAILY ATORVASTATIN CALCIUM 80 MG PO BEDTIME APIXABAN 5 MG PO BID CEFEPIME HCL with/in WATER FOR INJECTION,STERILE 2 GM IV Q12H ASPIRIN 81 MG PO DAILY AMIODARONE HCL 200 MG PO Q12HR PREGABALIN 50 MG PO BID VANCOMYCIN PHARMACY TO DOSE 1 EACH IV ASDIR (PRN) methocarbamoL 750 MG PO TID VANCOMYCIN HCL with/in SODIUM CHLORIDE 0.9% 750 MG IV Q12H METOPROLOL TARTRATE 12.5 MG PO Q12HR HYDROcodone BITARTRATE/APAP 1 TAB PO Q6H PRN LAB RESULTS CBC W/AUTO DIFF (02/23/24 06:33) EOSINOPHIL # 0.43 NEUTROPHIL % 64.6 NUCLEATED RBC % 0 BASOPHIL % 0.8 EOSINOPHIL % 5.4 MONOCYTE % 9.5 NUCLEATED RBC # 0 LYMPHOCYTE % 19.2 BASOPHIL # 0.06 IMMATURE GRANULOCYTE % 0.5 MEAN CELL HGB 30.5 MEAN CELL VOLUME 95 HEMATOCRIT 45.2 HEMOGLOBIN 14.6 RED BLOOD CELL 4.78 WHITE BLOOD CELL 7.9 IMMATURE GRANULOCYTE # 0.04 NEUTROPHIL # 5.1 MONOCYTE # 0.75 MEAN PLATELET VOLUME 10 LYMPHOCYTE # 1.52 PLATELET COUNT 207 RED CELL DISTRIBUTION WIDTH 14.2 MEAN CELL HGB CONCENTRATION 32.3 BASIC METABOLIC PANEL (02/23/24 06:33) CREATININE 1.2 GLOMERULAR FILTRATION RATE >=60 max estimate BLOOD UREA NITROGEN 17 GLUCOSE 93 ANION GAP 11.2 CARBON DIOXIDE 29 CHLORIDE 100 POTASSIUM 3.9 SODIUM 136 CALCIUM 9.3 BUN/CREATININE RATIO 14.2 at 0919 at 0919 ATTENTION *EDITS and/or ADDENDA must be made in Patient Keeper for this note. * * Edits and ammendments created in [employer] are not visible * * in Patient Keeper or the legal medical record (HPF). * RPT #: [id number] END OF REPORT [facility] 2024-02-23 11:37:00 [facility] ([facility]) Cardiology Progress Notes REPORT #: [id number] REPORT STATUS: Signed DATE: 02/23/24 TIME: 1136 PATIENT: KOTA MONTES UNIT #: [id number] ROOM #: [id number] BED: 1 : 61 AGE: 63 SEX: M ATTEND: Pete Vang MD ADM AUTHOR: Dulce Rubio ATTENTION *EDITS and/or ADDENDA must be made in Patient Keeper for this note. * * Edits and ammendments created in [employer] are not visible * * in Patient Keeper or the legal medical record (HPF). * Note Date: 02/23/24 11:37 -- ASSESSMENT/PLAN -- ASSESSMENT / PLAN: 1: ICD (implantable cardioverter-defibrillator) malfunction A/P: - s/p ASSOCIATE SOFTWARE ENGINEER-D placement by EP, Dr. Cristino Parker 01/02/24 - ECG - dual AV paced - CXR on admission --> appropriate dev placement - repeat CXR 02/21-->appropriate dev placement - PPM wound site C/D/I; ppm appears to be in an appropriate location - doubt Twidder syndrome - device interrogation ordered - advised pt to avoid manual manipulation of ICD over the pocket 2: Pneumonia, unspecified organism A/P: - CXR - nl location of ICD and leads, R perihilar infiltrate - ABx per PCP 3: Acute on chronic systolic (congestive) heart failure A/P: - chronic systolic CHF - LVEF = 25-29% (01/01/2024) - c/w home meds: bumex PO 1 g BID, amio 200 bid, lop 12.5 bid, eliquis 5 bid, brilinta 90 bid, lip 80 - tried lasix 40 qd in past, did not work, was placed on bumex. - not vol overloaded, patient reports if bumex stopped, he will have CHF exacerbation. - c/w bumex 1g PO BID - Grinder Operator External Tool is Dr. Kurtis Lynch, EP Dr. Annabelle De Jesus, CV surgeon Dr. Pike 4: CAD (coronary artery disease) A/P: - c/w brilinta - c/w BB - c/w lipitor - no aspirin as on eliquis 5: Unspecified atrial fibrillation A/P: hx of AF -on amiodarone 200 bid -on lop 12.5 bid -c/w Eliquis for CVA prophylaxis -d/c from hosp 01/30 on amiod 400mg BID, will decrease to amiod 200mg BID 02/22. 6: Hypertension A/P: c/w lop 12.5 bid 7: Hyperlipidemia A/P: c/w lip 80 8: Tobacco abuse A/P: advised cessation patient states he has quit -- SUBJECTIVE -- PATIENT NARRATIVE: no acute events, ASSOCIATE SOFTWARE ENGINEER-D incision site healing, no erythema or drainage. Denies CP or dizziness. Reports SOB with activity. Dual paced rate 87. -- EXAM -- VITALS (02/21 11:37 - 02/22 11:37): Pulse Rate: 80 (80 - 93) Respiratory rate: 14 (14 - 17) Blood pressure: 105/70 (100/65 - 115/85) Temperature source: Axillary Temperature C: 36.4 (36.3 - 36.5) EXAM: Other: General: Well developed, well nourished, in no apparent distress. Head: Normocephalic, atraumatic. Eyes: PERRL, EOM intact, conjunctiva and sclera clear Chest: Grossly normal appearance. Lungs: Clear bilaterally with normal respiratory effort. Heart: Regular rate and rhythm, normal S1, S2, no murmurs, no rubs, no gallops Abdomen: Soft, non-tender, no organomegaly, no masses noted Extremities: No clubbing, no cyanosis, no edema. Neurological: No focal deficits, normal muscle strength, normal tone. Pulses: Pulses normal in all extremities. Skin: Intact without significant lesions, or rashes -- DATA -- MEDICATIONS CITALOPRAM HYDROBROMIDE 40 MG PO DAILY TICAGRELOR 90 MG PO Q12HR FUROSEMIDE 40 MG PO QAM AMIODARONE HCL 400 MG PO Q12HR THIAMINE HCL 100 MG PO DAILY FOLIC ACID 1 MG PO DAILY ATORVASTATIN CALCIUM 80 MG PO BEDTIME APIXABAN 5 MG PO BID CEFEPIME HCL with/in WATER FOR INJECTION,STERILE 2 GM IV Q12H ASPIRIN 81 MG PO DAILY PREGABALIN 50 MG PO BID VANCOMYCIN PHARMACY TO DOSE 1 EACH IV ASDIR (PRN) methocarbamoL 750 MG PO TID VANCOMYCIN HCL with/in SODIUM CHLORIDE 0.9% 750 MG IV Q12H METOPROLOL TARTRATE 12.5 MG PO Q12HR HYDROcodone BITARTRATE/APAP 1 TAB PO Q6H PRN LAB RESULTS CBC W/AUTO DIFF (02/23/24 06:33) EOSINOPHIL # 0.43 NEUTROPHIL % 64.6 NUCLEATED RBC % 0 BASOPHIL % 0.8 EOSINOPHIL % 5.4 MONOCYTE % 9.5 NUCLEATED RBC # 0 LYMPHOCYTE % 19.2 BASOPHIL # 0.06 IMMATURE GRANULOCYTE % 0.5 MEAN CELL HGB 30.5 MEAN CELL VOLUME 95 HEMATOCRIT 45.2 HEMOGLOBIN 14.6 RED BLOOD CELL 4.78 WHITE BLOOD CELL 7.9 IMMATURE GRANULOCYTE # 0.04 NEUTROPHIL # 5.1 MONOCYTE # 0.75 MEAN PLATELET VOLUME 10 LYMPHOCYTE # 1.52 PLATELET COUNT 207 RED CELL DISTRIBUTION WIDTH 14.2 MEAN CELL HGB CONCENTRATION 32.3 BASIC METABOLIC PANEL (02/23/24 06:33) CREATININE 1.2 GLOMERULAR FILTRATION RATE >=60 max estimate BLOOD UREA NITROGEN 17 GLUCOSE 93 ANION GAP 11.2 CARBON DIOXIDE 29 CHLORIDE 100 POTASSIUM 3.9 SODIUM 136 CALCIUM 9.3 BUN/CREATININE RATIO 14.2 at 1726 at 1726 ATTENTION *EDITS and/or ADDENDA must be made in Patient Keeper for this note. * * Edits and ammendments created in [employer] are not visible * * in Patient Keeper or the legal medical record (HPF). * RPT #: [id number] END OF REPORT [facility] 2024-02-23 11:21:00 [facility] ([facility]) Internal Med. Progress Note REPORT #: [id number] REPORT STATUS: Signed DATE: 02/23/24 TIME: 1121 PATIENT: KOTA MONTES UNIT #: [id number] ROOM #: [place] [id number] BED: 1 : 61 AGE: 63 SEX: M ATTEND: Pete Vang MD ADM AUTHOR: Lucía Knight MD ATTENTION *EDITS and/or ADDENDA must be made in Patient Keeper for this note. * * Edits and ammendments created in [employer] are not visible * * in Patient Keeper or the legal medical record (HPF). * Note Date: 02/23/24 11:21 -- ASSESSMENT/PLAN -- ASSESSMENT / PLAN: 1: Pneumonia, unspecified organism A/P: admit patient to hospital Start broad-spectrum antibiotics for healthcare associated pneumonia Supplemental oxygen as needed I discussed the treatment plan with patient He expressed his desire not to stay in hospital for long Will monitor patient closely over the next 24 to 48 hours he may be a candidate to continue antibiotic therapy at home pending clinical course Pulmonary medicine input greatly appreciated 02/23/2024 Improving Continue Cefepime and vancomycin Probable discharge to home soon 2: AICD problem A/P: patient reports increased movement of AICD and has a thick adherent scab overlying the generator site Consult business department chair for recommendations 02/23/2024 Grinder Operator External Tool input greatly appreciated Awaiting interrogation of AICD Reminded patient not to manipulate the generator 3: CAD (coronary artery disease) A/P: he has history of coronary artery disease with CABG x 2 Continue beta-miguelangel statin Brilinta Await recommendations from business department chair 02/23/2024 Continue current medication regimen 4: Ischemic cardiomyopathy A/P: continue amiodarone metoprolol and Eliquis 5: Hyperlipidemia A/P: continue atorvastatin 6: Hypertension A/P: continue current antihypertensive regimen as listed above 7: Medical non-compliance A/P: patient has history of back and neck pain When I saw patient today for evaluation he looked comfortable I continued him on his outpatient regimen I received a phone call from nurse regarding patient wanting IV pain medicine I do not feel that is indicated at this time Patient has threatened to sign out AGAINST MEDICAL ADVICE His family came and convinced him to stay for treatment Patient has a history of medical noncompliance Will continue to monitor and continue to reeducate patient on the severity of his illnesses 8: On deep vein thrombosis (DVT) prophylaxis A/P: anticoagulated on Eliquis 9: Full code status A/P: continue aggressive treatment plan Patient's serves as surrogate decision maker -- SUBJECTIVE -- CHIEF COMPLAINT: cough and chest discomfort HPI: Patient seen in follow-up regarding healthcare associated pneumonia. Patient reports feeling well. He is without new complaints REVIEW OF SYSTEMS: General weakness Eyes Negative for blurry vision. No diplopia. Ears/Nose/Throat Negative for sore throat. No otalgia. No rhinorrhea. Breast Negative for change in shape, swelling, masses, nipple discharge, pain, skin changes. Respiratory shortness of breath and cough Cardiovascular chest discomfort Gastrointestinal Negative for abdominal pain or nausea. No emesis. No diarrhea. Genitourinary Negative for dysuria, frequency, or urgency. No gross hematuria. Musculoskeletal Negative for joint stiffness, pain, or arthralgias. Skin Negative for rashes. No pruritus. Neurological Negative for headache. No vertigo. Denies paresthesias. Psychiatric Negative for specific complaints. Endocrine Negative for cold intolerance, heat intolerance, polyphagia, polydipsia, polyuria, weight change, fatigue. Hematalogic / Lymphoreticular Negative for excessive bleeding, unusual masses. Allergic /Immunologic Negative for heat/cold intolerance, polydipsia, or polyuria. -- EXAM -- VITALS (02/21 11:21 - 02/22 11:21): Pulse Rate: 81 (80 - 93) Blood pressure: 109/72 (100/65 - 115/85) Respiratory rate: 16 (14 - 17) Temperature C: 36.4 (36.3 - 36.5) Temperature source: Axillary EXAM: General Well developed, well nourished, older male sitting up in bed in no apparent distress. Head Normocephalic, atraumatic. Eyes PERRL, EOM intact, conjunctiva and sclera clear, without nystagmus, lids normal. Ears Normal external ear canals and grossly normal hearing. Nose No deformity. Mouth Oropharynx without deformities or lesions, normal mucosa.. Neck No masses, no thyromegaly, no abnormal cervical nodes, trachea midline. Chest there is an AICD generator in the left anterior chest wall area slightly swollen slightly erythematous there is a 1 inch thick adherent marlow scab Breast No gynecomastia noted. Lungs Clear bilaterally with normal respiratory effort. Heart Irregularly irregular rhythm and rate, no murmurs, no rubs, no gallops, no clicks. Abdomen Soft, non-tender, no organomegaly, no masses noted. Musculoskeletal No deformity. Extremities No clubbing, no cyanosis, no edema. Neurological No focal deficits, cranial nerves II-XII grossly intact, normal coordination, normal muscle tone. Pulses Pulses normal in all extremities. Rectal deferred. Genitourinary Singh catheter in place. Skin Intact without significant lesions, or rashes. Lymph Nodes No significant cervical node adenopathy. Psychiatric Alert and oriented to Person, seems slightly confused. Cooperative and calm. -- DATA -- MEDICATIONS CITALOPRAM HYDROBROMIDE 40 MG PO DAILY TICAGRELOR 90 MG PO Q12HR FUROSEMIDE 40 MG PO QAM AMIODARONE HCL 400 MG PO Q12HR THIAMINE HCL 100 MG PO DAILY FOLIC ACID 1 MG PO DAILY ATORVASTATIN CALCIUM 80 MG PO BEDTIME BUMETANIDE 2 MG PO BID 9A 5P APIXABAN 5 MG PO BID CEFEPIME HCL with/in WATER FOR INJECTION,STERILE 2 GM IV Q12H ASPIRIN 81 MG PO DAILY PREGABALIN 50 MG PO BID VANCOMYCIN PHARMACY TO DOSE 1 EACH IV ASDIR (PRN) methocarbamoL 750 MG PO TID VANCOMYCIN HCL with/in SODIUM CHLORIDE 0.9% 750 MG IV Q12H METOPROLOL TARTRATE 12.5 MG PO Q12HR HYDROcodone BITARTRATE/APAP 1 TAB PO Q6H PRN LAB RESULTS CBC W/AUTO DIFF (02/23/24 06:33) EOSINOPHIL # 0.43 NEUTROPHIL % 64.6 NUCLEATED RBC % 0.0 BASOPHIL % 0.8 EOSINOPHIL % 5.4 MONOCYTE % 9.5 NUCLEATED RBC # 0.000 LYMPHOCYTE % 19.2 BASOPHIL # 0.06 IMMATURE GRANULOCYTE % 0.5 MEAN CELL HGB 30.5 MEAN CELL VOLUME 95 HEMATOCRIT 45.2 HEMOGLOBIN 14.6 RED BLOOD CELL 4.78 WHITE BLOOD CELL 7.9 IMMATURE GRANULOCYTE # 0.040 NEUTROPHIL # 5.10 MONOCYTE # 0.75 MEAN PLATELET VOLUME 10.0 LYMPHOCYTE # 1.52 PLATELET COUNT 207 RED CELL DISTRIBUTION WIDTH 14.2 MEAN CELL HGB CONCENTRATION 32.3 BASIC METABOLIC PANEL (02/23/24 06:33) CREATININE 1.2 GLOMERULAR FILTRATION RATE >=60 max estimate BLOOD UREA NITROGEN 17 GLUCOSE 93 ANION GAP 11.2 CARBON DIOXIDE 29 CHLORIDE 100 POTASSIUM 3.9 SODIUM 136 CALCIUM 9.3 BUN/CREATININE RATIO 14.2 -- ATTESTATION -- Care Activities / Care Coordination I have seen and examined this patient at 1123 ATTENTION *EDITS and/or ADDENDA must be made in Patient Keeper for this note. * * Edits and ammendments created in [facility] are not visible * * in Patient Keeper or the legal medical record (HPF). * [facility] #: [id number] END OF REPORT [facility] 2024-02-22 16:03:00 [facility] ([facility]) Internal Med. H P REPORT #: [id number] REPORT STATUS: Signed DATE: 02/22/24 TIME: 1603 PATIENT: KOTA MONTES UNIT #: [id number] ROOM #: [id number] BED: 1 : 61 AGE: 63 SEX: M ATTEND: Pete Vang MD ADM AUTHOR: Lucía Knight MD ATTENTION *EDITS and/or ADDENDA must be made in Patient Keeper for this note. * * Edits and ammendments created in [employer] are not visible * * in Patient Keeper or the legal medical record (HPF). * Note Date: 02/22/24 16:03 -- HISTORY -- ADMISSION DATE 02/22/2024 Primary care provider:Jong Pollack MD CHIEF COMPLAINT: cough and chest discomfort HPI: this patient is a 63-year-old male with past medical history significant for coronary artery disease status post CABG x 2, ischemic cardiomyopathy, AICD D in situ, hypertension dyslipidemia history of alcohol use and medical noncompliance.Nausea vomiting diarrhea and abdominal cramps acute exacerbation of CHF. During a hospitalization patient left AGAINST MEDICAL ADVICE. He returned a couple of hours later because of worsening shortness of breath. Patient was subsequently discharged from hospital on 1129. He reports that yesterday he started feeling uncomfortable and short of breath. He presented to hospital where evaluation revealed right perihilar infiltrate. Patient has been admitted to hospital for treatment of healthcare associated pneumonia. Patient also reports that he noticed approximately 3 days ago that his AICD seems to be moving up and down. Previously he was able to move it horizontally but now feels like he is more mobile and now mobile in the North and self direction. Patient reports good he took the dressing off after placement and the dressing pulled some of the skin off. Since then he has had a thick non-nonhealing scab HISTORY OBTAINED FROM: patient PAST MEDICAL / SURGICAL HISTORY: PAST MEDICAL HISTORY: - Acute hypoxic respiratory failure - Acute kidney injury - Acute on chronic systolic (congestive) heart failure - Anxiety disorder, unspecified - CAD (coronary artery disease) - Full code status - Heart failure, unspecified - Hyperlipidemia - Hypertension - Hypertensive heart disease with heart failure - Hyponatremia - On deep vein thrombosis (DVT) prophylaxis - Tobacco abuse - Unspecified atrial fibrillation - Acute hypoxic respiratory failure - Acute kidney injury - Acute on chronic systolic (congestive) heart failure - Anxiety disorder, unspecified - CAD (coronary artery disease) - Full code status - Heart failure, unspecified - Hyperlipidemia - Hypertension - Hypertensive heart disease with heart failure - Hyponatremia - On deep vein thrombosis (DVT) prophylaxis - Tobacco abuse - Unspecified atrial fibrillation - Acute blood loss anemia - Acute CHF - Acute decompensated heart failure - Acute kidney failure, unspecified - Acute kidney injury - Acute on chronic systolic (congestive) heart failure - Acute posthemorrhagic anemia - Acute respiratory failure with hypercapnia - Acute respiratory failure with hypoxia - Acute respiratory failure with hypoxia and hypercapnia - Anemia - Atherosclerotic heart disease of [place] coronary artery without angina pectoris - Atrial fibrillation with RVR - Cardiogenic shock - Flash pulmonary edema - Hyperlipidemia - Hypertension - Hypertensive heart disease with heart failure - Left bundle-branch block, unspecified - Presence of aortocoronary bypass graft - Presence of automatic (implantable) cardiac defibrillator - Rheumatic disorders of both mitral and aortic valves - Systolic dysfunction with acute on chronic heart failure - Unspecified atrial fibrillation PAST MEDICAL HISTORY: CAD s/p 2v CAB (06/25) and PCI (, 06/24, 12/24, 07/25) Ischemic cardiomyopathy (EF 25-29%) HTN HLD h/o ETOH abuse tobacco abuse anxiety/depression medical non-compliance PAST SURGICAL HISTORY: CABG x2v (June) ICD placement IMMUNIZATION STATUS: None FAMILY HISTORY: HTN DM Social History Tobacco use: PACK/DAY 1 YEARS USED 47 DETAILS/COMMENTS: former Vaping/Inhaled solvents: DETAILS/COMMENTS: Currently vapes Alcohol use: DETAILS/COMMENTS: former Drug use: DETAILS/COMMENTS: Denies recent hx MARITAL STATUS: 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 with -- ALLERGIES/HOME MEDS -- Modifications made in this section do not update Allergy and Home Medication List ALLERGIES - No Known Allergies ( UNKNOWN - Allergy ) HOME MEDICATIONS - Amiodarone Tab (Cordarone Tab) (PO - Q12HR - 400 MG) - Apixaban Tab (Eliquis Tab) (PO - BID - 5 MG) - Atorvastatin Tab (Lipitor Tab) (PO - BEDTIME - 80 MG) - Folic Acid Tab (Folvite Tab) (PO - DAILY - 1 MG) - HYDROcodone/APAP 5/325 Tab (Corinne 5/325 Tab) (PO - Q6H - 1 TAB) - Lexapro tab (escitalopram oxalate) (PO - DAILY - 20 MG) - Methocarbamol Tab (Robaxin Tab) (PO - TID - 750 MG) - Metoprolol Tartrate Tab (Lopressor Tab) (PO - Q12HR - 12.5 MG) - Pregabalin Cap (Lyrica Cap) (PO - BID - 50 MG) - Thiamine Tab (Vitamin B-1 Tab) (PO - DAILY - 100 MG) - Ticagrelor Tab (Brilinta Tab) (PO - Q12HR - 90 MG) - bumetanide tablet (PO - BID 9A 5P - 2 MG) -- SUBJECTIVE -- REVIEW OF SYSTEMS: General: weakness Eyes: Negative for blurry vision. No diplopia. Ears/Nose/Throat: Negative for sore throat. No otalgia. No rhinorrhea. Breast: Negative for change in shape, swelling, masses, nipple discharge, pain, skin changes. Respiratory: shortness of breath and cough Cardiovascular: chest discomfort Gastrointestinal: Negative for abdominal pain or nausea. No emesis. No diarrhea. Genitourinary: Negative for dysuria, frequency, or urgency. No gross hematuria. Musculoskeletal: Negative for joint stiffness, pain, or arthralgias. Skin: Negative for rashes. No pruritus. Neurological: Negative for headache. No vertigo. Denies paresthesias. Psychiatric: Negative for specific complaints. Endocrine: Negative for cold intolerance, heat intolerance, polyphagia, polydipsia, polyuria, weight change, fatigue. Hematalogic / Lymphoreticular: Negative for excessive bleeding, unusual masses. Allergic /Immunologic: Negative for heat/cold intolerance, polydipsia, or polyuria. -- EXAM -- VITALS (02/20 16:03 - 02/21 16:03): Temperature F: 98.6 Blood pressure: 109/68 (109/66 - 154/89) Respiratory rate: 17 (14 - 19) Pulse Rate: 89 (79 - 89) Temperature C: 36.4 (36.4 - 36.6) Temperature source: Axillary EXAM: General: Well developed, well nourished, older male sitting up in bed in no apparent distress. Head: Normocephalic, atraumatic. Eyes: PERRL, EOM intact, conjunctiva and sclera clear, without nystagmus, lids normal. Ears: Normal external ear canals and grossly normal hearing. Nose: No deformity. Mouth: Oropharynx without deformities or lesions, normal mucosa.. Neck: No masses, no thyromegaly, no abnormal cervical nodes, trachea midline. Chest: there is an AICD generator in the left anterior chest wall area slightly swollen slightly erythematous there is a 1 inch thick adherent marlow scab Breast: No gynecomastia noted. Lungs: Clear bilaterally with normal respiratory effort. Heart: Irregularly irregular rhythm and rate, no murmurs, no rubs, no gallops, no clicks. Abdomen: Soft, non-tender, no organomegaly, no masses noted. Musculoskeletal: No deformity. Extremities: No clubbing, no cyanosis, no edema. Neurological: No focal deficits, cranial nerves II-XII grossly intact, normal coordination, normal muscle tone. Pulses: Pulses normal in all extremities. Rectal: deferred. Genitourinary: Singh catheter in place. Skin: Intact without significant lesions, or rashes. Lymph Nodes: No significant cervical node adenopathy. Psychiatric: Alert and oriented to Person, seems slightly confused. Cooperative and calm. -- DATA -- ALLERGIES LAB RESULTS LIPID PROFILE (CORONARY RISK) (02/22/24 03:34) TRIGLYCERIDES [id number] H CHOLESTEROL/HDL RATIO 4 CHOLESTEROL 237 H LIPOPROTEIN LDL 128 H HDL CHOLESTEROL 67 H TROP-I HIGH SEN (02/22/24 03:34) TROP-I HIGH SENSITIVITY 20 COMPLETE BLOOD COUNT (CBC) (02/22/24 03:42) POC,LYMPHOCYTES % 32.0 POC,RED CELL DISTRIB WIDTH 15.2 H POC,MEAN CELL HEMOGLOBIN 31.7 POC,MEAN CELL VOLUME 97.0 H POC,PLATELET COUNT 180 POC,MEAN CELL HGB CONC 32.7 POC,RED BLOOD CELL 4.70 POC,WHITE BLOOD CELL 6.6 POC,HEMATOCRIT 45.6 POC,HEMOGLOBIN 14.9 POC,MIXED CELLS # 0.5 POC,LYMPHOCYTES # 2.1 POC,MEAN PLATELET VOLUME 10.7 POC,NEUTROPHILS # 4.0 POC,NEUTROPHILS % 59.7 POC,MIXED CELLS % 8.3 COMPREHENSIVE METABOLIC PANEL (02/22/24 03:46) POC,ANION GAP 6 POC,TCO2 31 POC,CREATININE 1.3 H POC,BUN 16 POC,SODIUM 143 POC,ALKALINE PHOSPHATASE 115 POC,CHLORIDE 106 POC,POTASSIUM 4.7 POC,BILIRUBIN TOTAL 0.5 POC,TOTAL PROTEIN 7.2 POC,ALT 41 POC,AST 42 H POC,ALBUMIN 3.5 POC,CALCIUM 9.7 POC,GLUCOSE 108 POC,eGFR 62 POC,BNP (02/22/24 03:59) POC,B TYPE NATRIURETIC PEPTIDE 99 POC,TROPONIN I (02/22/24 04:11) POC,TROPONIN I <0.05 LACTIC ACID (02/22/24 06:11) LACTIC ACID 1.8 TROP-I HIGH SEN (02/22/24 09:19) TROP-I HIGH SENSITIVITY 14 PROTHROMBIN TIME (02/22/24 10:26) INTERNATIONAL NORMAL RATIO 1.1 PROTHROMBIN TIME PATIENT 12.4 TROP-I HIGH SEN (02/22/24 12:16) TROP-I HIGH SENSITIVITY 18 BASIC METABOLIC PANEL (02/22/24 13:21) CALCIUM 9.5 BUN/CREATININE RATIO 12.3 CREATININE 1.3 GLOMERULAR FILTRATION RATE >=60 max estimate BLOOD UREA NITROGEN 16 GLUCOSE 83 ANION GAP 9.6 CARBON DIOXIDE 29 CHLORIDE 101 POTASSIUM 4.3 SODIUM 135L L -- ASSESSMENT/PLAN -- A/P: 1: Pneumonia, unspecified organism A/P: admit patient to hospital Start broad-spectrum antibiotics for healthcare associated pneumonia Supplemental oxygen as needed I discussed the treatment plan with patient He expressed his desire not to stay in hospital for long Will monitor patient closely over the next 24 to 48 hours he may be a candidate to continue antibiotic therapy at home pending clinical course Pulmonary medicine input greatly appreciated 2: AICD problem A/P: patient reports increased movement of AICD and has a thick adherent scab overlying the generator site Consult business department chair for recommendations 3: CAD (coronary artery disease) A/P: he has history of coronary artery disease with CABG x 2 Continue beta-miguelangel statin Brilinta Await recommendations from business department chair 4: Ischemic cardiomyopathy A/P: continue amiodarone metoprolol and Eliquis 5: Hyperlipidemia A/P: continue atorvastatin 6: Hypertension A/P: continue current antihypertensive regimen as listed above 7: Medical non-compliance A/P: patient has history of back and neck pain When I saw patient today for evaluation he looked comfortable I continued him on his outpatient regimen I received a phone call from nurse regarding patient wanting IV pain medicine I do not feel that is indicated at this time Patient has threatened to sign out AGAINST MEDICAL ADVICE His family came and convinced him to stay for treatment Patient has a history of medical noncompliance Will continue to monitor and continue to reeducate patient on the severity of his illnesses 8: On deep vein thrombosis (DVT) prophylaxis A/P: anticoagulated on Eliquis 9: Full code status A/P: continue aggressive treatment plan Patient's serves as surrogate decision maker -- ATTESTATION -- Time Spent on Patient Care DIRECT 75 minutes Care Activities / Care Coordination I have seen and examined this patient at 1626 ATTENTION *EDITS and/or ADDENDA must be made in Patient Keeper for this note. * * Edits and ammendments created in [employer] are not visible * * in Patient Keeper or the legal medical record (HPF). * [facility] #: [phone] END OF REPORT [facility] 2024-02-22 12:43:00 [facility] ([facility]) Cardiology Consultation REPORT #: [id number] REPORT STATUS: Signed DATE: 02/22/24 TIME: 1243 PATIENT: KOTA MONTES UNIT #: [id number] ROOM #: [id number].3307 BED: 1 : 61 AGE: 63 SEX: M ATTEND: Pete Vang MD ADM AUTHOR: Samuel Marion MD ATTENTION *EDITS and/or ADDENDA must be made in Patient Keeper for this note. * * Edits and ammendments created in [employer] are not visible * * in Patient Keeper or the legal medical record (HPF). * Note Date: 02/22/24 12:43 -- ASSESSMENT/PLAN -- ASSESSMENT PLAN: 1: ICD (implantable cardioverter-defibrillator) malfunction A/P: - s/p ASSOCIATE SOFTWARE ENGINEER-D placement by Dr. Cristino POWELL 01/02/24 - ECG - dual AV paced - CXR on admission --> appropriate dev placement - PPM wound site C/D/I; ppm appears to be in an appropriate location - repeat CXR to r/o any change - doubt Twidder syndrome - device interrogation ordered - advised pt to avoid manual manipulation of ICD over the pocket 2: Pneumonia, unspecified organism A/P: - CXR - nl location of ICD and leads, R perihilar infiltrate - ABx per PCP 3: Acute on chronic systolic (congestive) heart failure A/P: - chronic systolic CHF - LVEF = 25-29% (01/01/2024) - c/w home meds: lasix 40 qd, amio 400 bid?, lop 12.5 bid, eliquis 5 bid, brilinta 90 bid, lip 80 - not vol overloaded 4: CAD (coronary artery disease) A/P: - c/w brilinta - c/w BB - c/w lipitor - no aspirin as on eliquis 5: Unspecified atrial fibrillation A/P: hx of AF on amiodarone 400 bid on lop 12.5 bid c/w Eliquis for CVA prophylaxis 6: Hypertension A/P: c/w lop 12.5 bid 7: Hyperlipidemia A/P: c/w lip 80 8: Tobacco abuse A/P: advised cessation patient states he has quit -- HISTORY -- HPI: 63-year-old male with medical history significant for hypertension, hyperlipidemia, coronary artery disease, CABG within the past year, AICD, CHF, who presents to emergency department today with complaint of having congestion and cough symptoms. States that his symptoms started about 1-1/2 to 2 weeks ago, was seen here 1 week ago, and was prescribed antibiotic and cough syrup as well as albuterol. He states that his symptoms have not considerably improved, and while he was sleeping tonight he was woken up with a coughing spell, hence came to the emergency department. He is worried about pneumonia. Denies having any fever or chills. Cardiology was consulted regarding an issue with his ICD moving. PAST MEDICAL HISTORY/PAST SURGICAL HISTORY: PAST MEDICAL HISTORY: - Acute hypoxic respiratory failure - Acute kidney injury - Acute on chronic systolic (congestive) heart failure - Anxiety disorder, unspecified - CAD (coronary artery disease) - Full code status - Heart failure, unspecified - Hyperlipidemia - Hypertension - Hypertensive heart disease with heart failure - Hyponatremia - On deep vein thrombosis (DVT) prophylaxis - Tobacco abuse - Unspecified atrial fibrillation - Acute hypoxic respiratory failure - Acute kidney injury - Acute on chronic systolic (congestive) heart failure - Anxiety disorder, unspecified - CAD (coronary artery disease) - Full code status - Heart failure, unspecified - Hyperlipidemia - Hypertension - Hypertensive heart disease with heart failure - Hyponatremia - On deep vein thrombosis (DVT) prophylaxis - Tobacco abuse - Unspecified atrial fibrillation - Acute blood loss anemia - Acute CHF - Acute decompensated heart failure - Acute kidney failure, unspecified - Acute kidney injury - Acute on chronic systolic (congestive) heart failure - Acute posthemorrhagic anemia - Acute respiratory failure with hypercapnia - Acute respiratory failure with hypoxia - Acute respiratory failure with hypoxia and hypercapnia - Anemia - Atherosclerotic heart disease of [place] coronary artery without angina pectoris - Atrial fibrillation with RVR - Cardiogenic shock - Flash pulmonary edema - Hyperlipidemia - Hypertension - Hypertensive heart disease with heart failure - Left bundle-branch block, unspecified - Presence of aortocoronary bypass graft - Presence of automatic (implantable) cardiac defibrillator - Rheumatic disorders of both mitral and aortic valves - Systolic dysfunction with acute on chronic heart failure - Unspecified atrial fibrillation PAST MEDICAL HISTORY: CAD s/p 2v CAB (06/25) and PCI (, 06/24, 12/24, 07/25) Ischemic cardiomyopathy (EF 25-29%) HTN HLD h/o ETOH abuse tobacco abuse anxiety/depression medical non-compliance PAST SURGICAL HISTORY: CABG x2v (June) ICD placement IMMUNIZATION STATUS: None FAMILY HISTORY: HTN DM Social History Tobacco use: PACK/DAY 1 YEARS USED 47 DETAILS/COMMENTS: former Vaping/Inhaled solvents: DETAILS/COMMENTS: Currently vapes Alcohol use: DETAILS/COMMENTS: former Drug use: DETAILS/COMMENTS: Denies recent hx MARITAL STATUS: 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 with -- ALLERGIES/HOME MEDS -- Modifications made in this section do not update Allergy and Home Medication List ALLERGIES - No Known Allergies ( UNKNOWN - Allergy ) HOME MEDICATIONS - Amiodarone Tab (Cordarone Tab) (PO - Q12HR - 400 MG) - Apixaban Tab (Eliquis Tab) (PO - BID - 5 MG) - Atorvastatin Tab (Lipitor Tab) (PO - BEDTIME - 80 MG) - Folic Acid Tab (Folvite Tab) (PO - DAILY - 1 MG) - HYDROcodone/APAP 5/325 Tab (Corinne 5/325 Tab) (PO - Q6H - 1 TAB) - Lexapro tab (escitalopram oxalate) (PO - DAILY - 20 MG) - Methocarbamol Tab (Robaxin Tab) (PO - TID - 750 MG) - Metoprolol Tartrate Tab (Lopressor Tab) (PO - Q12HR - 12.5 MG) - Pregabalin Cap (Lyrica Cap) (PO - BID - 50 MG) - Thiamine Tab (Vitamin B-1 Tab) (PO - DAILY - 100 MG) - Ticagrelor Tab (Brilinta Tab) (PO - Q12HR - 90 MG) - bumetanide tablet (PO - BID 9A 5P - 2 MG) -- SUBJECTIVE -- REVIEW OF SYSTEMS: General: Negative for fever, malaise, fatigue. Eyes: Negative for blurry vision. No diplopia. Ears/Nose/Throat: Negative for sore throat. No otalgia. No rhinorrhea. Breast: Negative for change in shape, swelling, masses, nipple discharge, pain, skin changes. Respiratory: Negative for dyspnea or wheeze. No cough. Cardiovascular: Negative for chest pain or palpitations. No extremity swelling. Gastrointestinal: Negative for abdominal pain or nausea. No emesis. No diarrhea. Genitourinary Negative for dysuria, frequency, or urgency. No gross hematuria. Musculoskeletal: Negative for joint stiffness, pain, or arthralgias. Skin: Negative for rashes. No pruritus. Neurological: Negative for headache. No vertigo. Denies paresthesias. Psychiatric: Negative for specific complaints. Endocrine: Negative for cold intolerance, heat intolerance, polyphagia, polydipsia, polyuria, weight change, fatigue. Hematalogic / Lymphoreticular: Negative for excessive bleeding, unusual masses. Allergic /Immunologic: Negative for heat/cold intolerance, polydipsia, or polyuria. -- EXAM -- VITALS (02/20 12:43 - 02/21 12:43): Blood pressure: 146/89 (115/66 - 154/89) Respiratory rate: 14 (14 - 19) Temperature C: 36.6 Temperature source: Oral Temperature F: 98.6 Pulse Rate: 82 (79 - 88) EXAM: Other: General: Well developed, well nourished, in no apparent distress. Head: Normocephalic, atraumatic. Eyes: PERRL, EOM intact, conjunctiva and sclera clear Chest: Grossly normal appearance. Lungs: Clear bilaterally with normal respiratory effort. Heart: Regular rate and rhythm, normal S1, S2, no murmurs, no rubs, no gallops Abdomen: Soft, non-tender, no organomegaly, no masses noted Extremities: No clubbing, no cyanosis, no edema. Neurological: No focal deficits, normal muscle strength, normal tone. Pulses: Pulses normal in all extremities. Skin: Intact without significant lesions, or rashes -- DATA -- ALLERGIES MEDICATIONS CITALOPRAM HYDROBROMIDE 40 MG PO DAILY TICAGRELOR 90 MG PO Q12HR AMIODARONE HCL 400 MG PO Q12HR THIAMINE HCL 100 MG PO DAILY FOLIC ACID 1 MG PO DAILY ATORVASTATIN CALCIUM 80 MG PO BEDTIME BUMETANIDE 2 MG PO BID 9A 5P APIXABAN 5 MG PO BID CEFEPIME HCL with/in WATER FOR INJECTION,STERILE 2 GM IV Q12H ASPIRIN 81 MG PO DAILY PREGABALIN 50 MG PO BID VANCOMYCIN PHARMACY TO DOSE 1 EACH IV ASDIR (PRN) methocarbamoL 750 MG PO TID VANCOMYCIN HCL with/in SODIUM CHLORIDE 0.9% 750 MG IV Q12H ACETAMINOPHEN 650 MG PO Q4H PRN METOPROLOL TARTRATE 12.5 MG PO Q12HR HYDROcodone BITARTRATE/APAP 1 TAB PO Q6H PRN LAB RESULTS LIPID PROFILE (CORONARY RISK) (02/22/24 03:34) TRIGLYCERIDES 247 H CHOLESTEROL/HDL RATIO 4 CHOLESTEROL 237 H LIPOPROTEIN LDL 128 H HDL CHOLESTEROL 67 H TROP-I HIGH SEN (02/22/24 03:34) TROP-I HIGH SENSITIVITY 20 COMPLETE BLOOD COUNT (CBC) (02/22/24 03:42) POC,LYMPHOCYTES % 32 POC,RED CELL DISTRIB WIDTH 15.2 H POC,MEAN CELL HEMOGLOBIN 31.7 POC,MEAN CELL VOLUME 97 H POC,PLATELET COUNT 180 POC,MEAN CELL HGB CONC 32.7 POC,RED BLOOD CELL 4.7 POC,WHITE BLOOD CELL 6.6 POC,HEMATOCRIT 45.6 POC,HEMOGLOBIN 14.9 POC,MIXED CELLS # 0.5 POC,LYMPHOCYTES # 2.1 POC,MEAN PLATELET VOLUME 10.7 POC,NEUTROPHILS # 4 POC,NEUTROPHILS % 59.7 POC,MIXED CELLS % 8.3 COMPREHENSIVE METABOLIC PANEL (02/22/24 03:46) POC,ANION GAP 6 POC,TCO2 31 POC,CREATININE 1.3 H POC,BUN 16 POC,SODIUM 143 POC,ALKALINE PHOSPHATASE 115 POC,CHLORIDE 106 POC,POTASSIUM 4.7 POC,BILIRUBIN TOTAL 0.5 POC,TOTAL PROTEIN 7.2 POC,ALT 41 POC,AST 42 H POC,ALBUMIN 3.5 POC,CALCIUM 9.7 POC,GLUCOSE 108 POC,eGFR 62 POC,BNP (02/22/24 03:59) POC,B TYPE NATRIURETIC PEPTIDE 99 POC,TROPONIN I (02/22/24 04:11) POC,TROPONIN I <0.05 LACTIC ACID (02/22/24 06:11) LACTIC ACID 1.8 TROP-I HIGH SEN (02/22/24 09:19) TROP-I HIGH SENSITIVITY 14 PROTHROMBIN TIME (02/22/24 10:26) INTERNATIONAL NORMAL RATIO 1.1 PROTHROMBIN TIME PATIENT 12.4 at 1745 ATTENTION *EDITS and/or ADDENDA must be made in Patient Keeper for this note. * * Edits and ammendments created in [facility] are not visible * * in Patient Keeper or the legal medical record (HPF). * RPT #: [id number] END OF REPORT [facility] 2024-02-22 08:41:00 [facility] ([facility]) Med Order Sheet REPORT #: [id number] REPORT STATUS: Signed DATE: 02/22/24 TIME: 840 PATIENT: KOTA MONTES UNIT #: [id number] ROOM #: [id number] BED: 1 : 61 AGE: 63 SEX: M ATTEND: Pete Vang MD ADM AUTHOR: Lucía Knight MD ATTENTION *EDITS and/or ADDENDA must be made in Patient Keeper for this note. * * Edits and ammendments created in [facility] are not visible * * in Patient Keeper or the legal medical record (HPF). * Admission Medication Reconciliation -- CONTINUED / CHANGED HOME MEDICATIONS -- Home: Amiodarone Tab (Cordarone Tab) 400 MG PO Q12HR Hosp: Amiodarone Tab (Cordarone Tab) 400 MG PO Q12HR Home: Apixaban Tab (Eliquis Tab) 5 MG PO BID Hosp: Apixaban Tab (Eliquis Tab) 5 MG PO BID Home: Atorvastatin Tab (Lipitor Tab) 80 MG PO BEDTIME Hosp: Atorvastatin Tab (Lipitor Tab) 80 MG PO BEDTIME Home: bumetanide tablet 2 MG PO BID 9A 5P Hosp: Bumetanide Tab (Bumex Tab) 2 MG PO BID 9A 5P Home: Folic Acid Tab (Folvite Tab) 1 MG PO DAILY Hosp: Folic Acid Tab (Folvite Tab) 1 MG PO DAILY Home: HYDROcodone/APAP 5/325 Tab (Corinne 5/325 Tab) 1 TAB PO Q6H PRN pain scale 4-6 (use 1st) Hosp: HYDROcodone/APAP 5/325 Tab (Corinne 5/325 Tab) 1 TAB PO Q6H PRN pain scale 4-6 (use 1st) Home: Lexapro tab (escitalopram oxalate) 20 MG PO DAILY Hosp: Lexapro tab (escitalopram oxalate) 20 MG PO DAILY Home: Methocarbamol Tab (Robaxin Tab) 750 MG PO TID Hosp: Methocarbamol Tab (Robaxin Tab) 750 MG PO TID Home: Metoprolol Tartrate Tab (Lopressor Tab) 12.5 MG PO Q12HR Hosp: Metoprolol Tartrate Tab (Lopressor Tab) 12.5 MG PO Q12HR Home: Pregabalin Cap (Lyrica Cap) 50 MG PO BID Hosp: Pregabalin Cap (Lyrica Cap) 50 MG PO BID Home: Thiamine Tab (Vitamin B-1 Tab) 100 MG PO DAILY Hosp: Thiamine Tab (Vitamin B-1 Tab) 100 MG PO DAILY Home: Ticagrelor Tab (Brilinta Tab) 90 MG PO Q12HR Hosp: Ticagrelor Tab (Brilinta Tab) 90 MG PO Q12HR at 0841 ATTENTION *EDITS and/or ADDENDA must be made in Patient Keeper for this note. * * Edits and ammendments created in [facility] are not visible * * in Patient Keeper or the legal medical record ([facility]). * [facility] #: [id number] END OF REPORT [facility] 2024-02-22 03:29:00 [facility] ([facility]) EMERGENCY PROVIDER REPORT REPORT#:[id number] REPORT STATUS: Signed DATE:02/22/24 TIME: 328 PATIENT: KOTA MONTES UNIT #: [id number] [address]OM: [address]: 1 : 61 AGE: 63 SEX: M PCP PHYS: Jong Pollack MD SERVICE AUTHOR: Kalpana Dickinson MD REP SRV REP SRV TM: 0329 * ALL edits or amendments must be made on the electronic/computer document * HPI-General Illness General Initial Greet Date/Time 02/22/24313 Presentation Chief Complaint Cough Onset Occurred Weeks ago (2) Free Text HPI Notes Free Text HPI Notes Patient is a 63-year-old male with medical history significant for hypertension, hyperlipidemia, coronary artery disease, CABG within the past year, AICD, CHF, who presents to emergency department today with complaint of having congestion and cough symptoms. States that his symptoms started about 1-1/2 to 2 weeks ago , was seen here 1 week ago, and was prescribed antibiotic and cough syrup as well as albuterol. He states that his symptoms have not considerably improved, and while he was sleeping tonight he was woken up with a coughing spell, hence came to the emergency department. He is worried about pneumonia. Denies having any fever or chills. Comfortably ambulatory to the ER. Review of Systems Review of Systems Constitutional Denies: Chills, Fever. Eyes Denies: Blurred bilat. Ears/Nose/Throat Reports: Nasal congestion, Sinus problem. Respiratory Reports: Cough, non-productive, Cough, productive, Shortness of breath, Wheezing. Cardiovascular Denies: Chest pain, Palpitations, Syncope. GI Denies: Abdominal pain, Nausea, Vomiting. Male Denies: Dysuria, Flank pain. Musculoskeletal Denies: Extremity pain, Extremity swelling. Hematologic Denies: Bleeding, Bruising. Skin Denies: Rash. Neurologic Denies: Headache, Lightheaded. Psychiatric Denies: Agitation, Anxiety. Past Medical History - Adult Stated Complaint SOB Allergies Coded Allergies: No Known Allergies (12/31/23) Home Medications Active Scripts Guaifenesin/Dextromethorphan (Mucinex Dm 1200/60 Mg) 1 TAB PO Q12H PRN CONGESTION Guaifenesin/Dextromethorphan (Mucinex Dm 1200/60 Mg) 1 TAB PO Q12H PRN CONGESTION #20 TABS Prov: 02/15/24 Discontinued Scripts Azithromycin (Z-PRIYA) 250 MG PO ASDIR Azithromycin (Z-PRIYA) 250 MG PO ASDIR #6 TABS Prov: 02/15/24 DC: 02/24/24 1640 customs entry clerk correction Albuterol (Ventolin Hfa 90 Mcg/Act) 2 PUFF INH RTQ4H PRN PRN WHEEZING / SHORTNESS OF BREATH Albuterol (Ventolin Hfa 90 Mcg/Act) 2 PUFF INH RTQ4H PRN PRN WHEEZING / SHORTNESS OF BREATH #36 GM Prov: 02/15/24 DC: 02/24/24 1640 customs entry clerk correction Furosemide (Lasix) 40 MG PO DAILY Furosemide (Lasix) 40 MG PO DAILY #30 TAB Prov: 01/31/24 DC: 02/22/24 0821 Discontinued as per MD Reported Medications Folic Acid 1 MG PO DAILY Thiamine (Vitamin B-1) 100 MG PO DAILY methocarbamoL (Robaxin) 750 MG PO TID Escitalopram (Lexapro) 20 MG PO DAILY Hydrocodone/Acetaminophen (HYDROcodone/APAP 5/325) 1 TAB PO Q6H PRN pain scale 4 -6 (use 1st) Apixaban (Eliquis) 5 MG PO BID Atorvastatin (Lipitor) 80 MG PO BEDTIME Pregabalin (Lyrica) 50 MG PO BID Metoprolol Tartrate (Lopressor) 12.5 MG PO Q12HR Ticagrelor (Brilinta) 90 MG PO Q12HR Bumetanide (Bumex) 1 MG PO BID 9A 5P Amiodarone (Pacerone) 200 MG PO BID Discontinued Reported Medications Amiodarone (Pacerone) 400 MG PO Q12HR Escitalopram (Lexapro) 20 MG PO DAILY Celecoxib (Celebrex) 200 MG PO DAILY Metoprolol Succ Xl (Toprol Xl) 25 MG PO DAILY Metoprolol Tartrate (Lopressor) 25 MG PO BID Calculated Suicide Risk (nurs) No risk Past Medical History: Reports: Coronary artery disease, Hypertension, Dyslipidemia. Additional Medical History History of [place] Past Surgical History: Reports: CABG. Additional Surgical History Cardiac stents, right hip hardware Alcohol Use Alcohol use Drug Use Denies recreational drugs Smoking status for patients 13 years old or older: Never Smoker Physical Exam Vital Signs Vital Signs First Documented: Result Date Time Pulse Ox 99 02/21 310 B/P 154/86 02/21 310 B/P Mean 108 02/21 310 O2 Delivery Room air 02/21 310 Temp 37.0 02/21 310 Pulse 88 02/21 310 Resp 19 02/21 310 Last Documented: Result Date Time Pulse Ox 99 02/21 310 B/P 154/86 02/21 310 B/P Mean 108 02/21 310 O2 Delivery Room air 02/21 310 Temp 37.0 02/21 310 Pulse 88 02/21 310 Resp 19 02/21 310 Review of Vital Signs Reviewed Physical Exam General/Const General/Const Awake, Alert, No acute distress, Well appearing, Well developed , Well hydrated, Well nourished, Cooperative, Not toxic appearing MS Head Head Atraumatic, Normocephalic Eyes Eyes PERRL, EOMI Ears/Nose/Throat Ears/Nose/Throat Airway patent, Mucous membranes moist MS Neck Neck Supple, No meningismus Resp/Chest Respiratory/Chest Breath sounds NL, Breath sounds = bilat, No respiratory distress, No rhonchi, No wheezing, No retractions Cardiovascular Cardiovascular Heart rate NL, Regular rhythm, Heart sounds NL, No murmurs, Cap refill not delayed, Peripheral circulation NL Abdomen/GI Abdomen/GI Soft, Non-tender MS Back Back Inspection NL, Full range of motion MS Upper Extrem Upper Extremity/MS Inspection NL, Full range of motion MS Wrist/Hand Wrist/Hand Inspection NL, Full range of motion MS Ankle/Foot Ankle/Foot Inspection NL, Full range of motion Skin Skin No rash, Warm, Dry Neurologic Neurologic Oriented X3, Speech NL, No motor deficits, No sensory deficits Psychiatric Psychiatric Affect NL, Mood NL Interpretation Diagnostics Lab Results Interpretation Results Laboratory Tests: 02/21 02/21 02/21 02/21 02/21 0334 0342 0346 0359 0411 Chemistry POC Sodium (128 - 145 mmol/L) 143 POC Potassium (3.6 - 5.1 mmol/L) 4.7 POC Chloride (98 - 108 mmol/L) 106 POC Total CO2 (18 - 33 mmol/L) 31 POC Anion Gap (4 - 14 mmol/L) 6 POC BUN (7 - 22 mg/dL) 16 POC Creatinine (0.6 - 1.2 mg/dL) 1.3 H Est GFR (CKD-EPI 2020) (>=60 mL/min) 62 POC Glucose (73 - 118 mg/dL) 108 POC Calcium (8.0 - 10.3 mg/dL) 9.7 POC Total Bilirubin (0.2 - 1.6 mg/dL) 0.5 POC AST (11 - 38 U/L) 42 H POC ALT (10 - 47 U/L) 41 POC Alk Phosphatase (53 - 128 U/L) 115 POC Troponin I (<0.05 ng/mL) <0.05 Troponin I High Sens (0 - 78 pg/mL) 20 POC B-Natriuretic Pept (<100 pg/mL) 99 POC Total Protein (6.4 - 8.1 g/dL) 7.2 POC Albumin (3.3 - 5.5 g/dL) 3.5 Triglycerides (0 - 149 mg/dL) 247 H Cholesterol (0 - 200 mg/dL) 237 H LDL Cholesterol Measurd (0 - 100 mg/dL) 128 H HDL Cholesterol (40 - 59 mg/dL) 67 H Cholesterol/HDL Ratio (1 - 6) 4 Hematology POC WBC (3.9 - 9.4 10 3/uL) 6.6 POC RBC (4.14 - 5.52 10 6/uL) 4.70 POC Hgb (11.9 - 16.7 g/dL) 14.9 POC Hct (36.1 - 49.4 %) 45.6 POC MCV (83.2 - 96.0 fL) 97.0 H POC MCH (27.1 - 32.5 pg) 31.7 POC MCHC (31.0 - 35.8 g/dL) 32.7 POC RDW Coeff of Nakul (12.0 - 15.0 %) 15.2 H POC Platelet Count (155 - 330 10 3/uL) 180 POC MPV (8.7 - 12.6 fL) 10.7 POC Mixed Cells % (3.2 - 16.9 %) 8.3 POC Neut # (2.2 - 6.4 10 3/uL) 4.0 POC Lymph # (Auto) (0.9 - 3.0 10 3/uL) 2.1 POC Mixed Cells # (0.2 - 1.1 10 3/uL) 0.5 POC Lymphocytes % (16.8 - 42.5 %) 32.0 POC Neutrophils % (46.4 - 74.7 %) 59.7 Microbiology: Date/Time Procedure - Status Source Growth 02/21 334 Blood Culture - RES Blood 02/21 334 Blood Culture - RES Blood Recent Impressions: RADIOLOGY - XR CHEST 1 V 02/21 0346 Report Impression - Status: SIGNED Entered: 02/22/2024 0357 IMPRESSION: Right perihilar infiltrate. Impression By: [id number] - Olman Choi MD ECG #1 Interpretation Text/Dict Note EKG at 0326 shows a rate of 86 regular paced rhythm, there is no STEMI. This EKG is similar to previous Date 02/22/24 Time 0326 Interpreted by ED physician Re-Evaluation MDM Free Text MDM Notes Free Text MDM Notes 63-year-old male presents to the emergency department with the above history and physical examination. Well-appearing, afebrile, nontoxic. Physical examination did reveal some nasal congestion, postnasal drip and occasional coughing. Cardiopulmonary examination is otherwise reassuring. Differential diagnosis includes Bronchitis, pneumonia, pneumonitis, ACS, CHF Re-Evaluation/Progress #1 Text/Dict Note Patient has frequent coughing spells, cough productive of yellow sputum. Otherwise restful. Labs reassuring. He has right perihilar infiltrate, concerning for RML PNA given his hx of recurrent R sided PNA, frequent hospitalizations and and failure of outpatient Abx treatment. Have recommended for hospitalization. Patient is agreeable to this. D/w Dr Vang who accepted patient. Time of Re-Eval 5 Re-Eval Status Improved ED Course Medication(s) Ordered Medication(s) Ordered: Anti-Infective Agents Sig/Alfonzo Start time Last Medication Dose Route Stop Time Status Admin Cefepime HCl 1 GM Q8H 02/21 0415 UNV Sterile Water 10 ML IV 02/21 1608 Cefepime HCl 1 GM X1ED STA 02/21 0405 DC 02/21 Sterile Water 10 ML IV 02/21 0407 0412 Central Nervous System Agents Sig/Alfonzo Start time Last Medication Dose Route Stop Time Status Admin Acetaminophen/ 5 ML X1ED STA 02/21 0411 UNV Codeine Phosphate PO 02/21 0412 Acetaminophen 650 MG Q4H PRN PRN 02/21 0409 UNV PO 02/21 1608 Other Sig/Alfonzo Start time Last Medication Dose Route Stop Time Status Admin Miscellaneous 1 EACH ASDIR PRN 02/21 0409 UNV Information IV 02/21 1608 Patient Discharge Departure Vital Signs/Condition Vital Signs First Documented: Result Date Time Pulse Ox 99 02/21 0310 B/P 154/86 02/21 0310 B/P Mean 108 02/21 310 O2 Delivery Room air 02/21 310 Temp 37.0 02/21 310 Pulse 88 02/21 310 Resp 19 02/21 310 Last Documented: Result Date Time Pulse Ox 99 02/21 310 B/P 154/86 02/21 310 B/P Mean 108 02/21 310 O2 Delivery Room air 02/21 310 Temp 37.0 02/21 310 Pulse 88 02/21 310 Resp 19 02/21 310 All vital signs available at the time of this entry have been reviewed. Clinical Impression Clinical Impression Primary Impression: Right middle lobe pneumonia Disposition Decision Hospitalize Hosp Physician Name Pete Vang MD Hosp Physician Hospitalist Request Time 413 Request Date 02/22/24 )( Accepts Hospitalization Yes )( Reason for Hospitalization pneumonia, likely healthcare associated )( Accepted Time 413 )( Accepted Date 02/22/24 Call Information will see patient Discharge/Care Plan (Auto) Prescriptions Current Visit Scripts Amiodarone (Pacerone) 200 MG PO Q12HR Amiodarone (Pacerone) 200 MG PO Q12HR #60 TAB Cephalexin (Keflex) 250 MG PO Q6H Cephalexin (Keflex) 250 MG PO Q6H #20 CAP Prednisone 20 MG PO SPECIAL INST Prednisone 20 MG PO SPECIAL INST #11 TAB take 2 tabs daily x 3 days, then 1 tabs daily x 3 days, then 1/2 tab daily x 4 days at 07[address] [facility] #:[id number] END OF REPORT [facility] 2024-02-22 03:26:00 [id number] [place] [id number] [facility] [id number] PATIENT NAME: KOTA MONTES ADMIT DATE: 02/22/24 ACCOUNT NO: [id number] ROOM NO: [id number] AGE: 63 REPORT TYPE: eELECTROCARDIOGRAM SEX: M ADMITTING PHYSICIAN:Pete Vang MD ATTENDING PHYSICIAN:Pete Vang MD Order: [id number] Test Reason : shortness of breath and cough Test Date/Time Stamp: SatFeb 22 2024 03:26:16 Blood Pressure : / mmHG Vent. Rate : 086 BPM Atrial Rate : 086 BPM P-R Int : 158 ms QRS Dur : 158 ms QT Int : 462 ms P-R-T Axes : 067 109 066 degrees QTc Int : 552 ms Atrial-sensed ventricular-paced rhythm Abnormal ECG Confirmed by MARIAM PEREZ ([id number]) on 02/24/2024 11:47:55 AM Referred By: Self Referred Confirmed by:MARIAM PEREZ at [address] [facility] [id number] [facility] [address] PATIENT NAME: KOTA MONTES [facility] 2024-02-15 11:56:00 [facility] ([facility]) EMERGENCY PROVIDER REPORT REPORT#:[id number] REPORT STATUS: Signed DATE:02/15/24 TIME: 1156 PATIENT: KOTA MONTES UNIT #: [id number] ROOM: BED: : 61 AGE: 63 SEX: M PCP PHYS: Jong Pollack MD SERVICE AUTHOR: Luis Lao MD REP SRV REP SRV TM: 1156 * ALL edits or amendments must be made on the electronic/computer document * HPI-General Illness General Initial Greet Date/Time 02/15/24 1105 Presentation Chief Complaint Cough Free Text HPI Notes Free Text HPI Notes Patient is a 63-year-old male who presents with concern for cough. Patient states that over the past 3 to 4 days he has had intermittent cough sometimes productive of yellow sputum. Patient states that he has history of CHF and sometimes fluid buildup in his lungs without any other signs of edema and therefore presented to emergency department for further evaluation. When asked specifically patient denies shortness of breath and orthopnea. Patient denies fever chills chest pain shortness of breath nausea vomiting diarrhea dysuria hematuria lightheadedness dizziness numbness focal weakness rash or recent trauma. Review of Systems ROS Statements All systems rev neg except as marked. Review of Systems Respiratory Reports: Cough, productive. Past Medical History - Adult Stated Complaint COUGH Allergies Coded Allergies: No Known Allergies (12/31/23) Home Medications Active Scripts Furosemide (Lasix) 40 MG PO DAILY Furosemide (Lasix) 40 MG PO DAILY #30 TAB Prov: 01/31/24 Reported Medications Escitalopram (Lexapro) 20 MG PO DAILY Folic Acid 1 MG PO DAILY Atorvastatin (Lipitor) 80 MG PO BEDTIME Amiodarone (Pacerone) 400 MG PO Q12HR Thiamine (Vitamin B-1) 100 MG PO DAILY Escitalopram (Lexapro) 20 MG PO DAILY Hydrocodone/Acetaminophen (HYDROcodone/APAP 5/325) 1 TAB PO Q6H PRN pain scale 4 -6 (use 1st) Apixaban (Eliquis) 5 MG PO BID methocarbamoL (Robaxin) 750 MG PO TID Pregabalin (Lyrica) 50 MG PO BID Metoprolol Tartrate (Lopressor) 12.5 MG PO Q12HR Ticagrelor (Brilinta) 90 MG PO Q12HR Celecoxib (Celebrex) 200 MG PO DAILY Amiodarone (Pacerone) 200 MG PO BID Metoprolol Succ Xl (Toprol Xl) 25 MG PO DAILY Metoprolol Tartrate (Lopressor) 25 MG PO BID Calculated Suicide Risk (nurs) No risk Past Medical History: Reports: Coronary artery disease, Hypertension, Dyslipidemia. Additional Medical History History of NM Past Surgical History: Reports: CABG. Additional Surgical History Cardiac stents, right hip hardware Alcohol Use Alcohol use Drug Use Denies recreational drugs Smoking status for patients 13 years old or older: Former Smoker Physical Exam Vital Signs Vital Signs First Documented: Result Date Time Pulse Ox 99 02/14 1058 B/P 136/83 02/14 1058 B/P Mean 100 02/14 1058 O2 Delivery Room air 02/14 1058 Temp 36.7 02/14 1058 Pulse 91 02/14 1058 Resp 18 02/14 1058 Last Documented: Result Date Time Pulse Ox 99 02/14 1058 B/P 136/83 02/14 1058 B/P Mean 100 02/14 1058 O2 Delivery Room air 02/14 1058 Temp 36.7 02/14 1058 Pulse 91 02/14 1058 Resp 18 02/14 1058 Review of Vital Signs Reviewed Free Text PE Notes Free Text PE Notes General: Well appearing, well nourished, in no distress. HEENT: Head: Normocephalic, atraumatic Eyes: EOM intact, PERRL, Atraumatic Ears/Nose/Throat: Atraumatic, Airway patent, Mucous membranes moist Neck: Supple, without lesions, w/o meningismus Heart: regular rate and rhythm, peripheral circulation normal; no lower extremity edema Lungs: Clear to auscultation bilaterally. No acute respiratory distress Abdomen: atraumatic, soft, non-tender, non-distended Musculoskeletal: No tenderness, moving all extremities Skin: Warm, dry Neurologic: normal strength, alert, following commands, speech normal Psychiatric: normal mood and affect. Interpretation Diagnostics Lab Results Interpretation Results Laboratory Tests: 02/14 02/14 1127 1127 Serology POC Influenza A Ag (Negative) Negative POC Influenza B Ag (Negative) Negative SARS-CoV-2 Ag (Rapid) (Negative) Negative Recent Impressions: RADIOLOGY - XR CHEST 2 V 02/14 1102 Report Impression - Status: SIGNED Entered: 02/15/2024 1134 IMPRESSION: 1. Cardiomegaly. Impression By: [email or web address] - Finesse Crooks MD Re-Evaluation MDM Free Text MDM Notes Free Text MDM Notes Patient nontoxic-appearing at bedside. Patient in no obvious respiratory distress. Patient very well-appearing. Patient with clear bilateral breath sounds and soft nontender nondistended abdomen. Chest x-ray reveals no acute pathology. Flu and COVID test negative. Patient with likely bronchitis. Patient discharged home with antibiotics symptomatic care return precautions and close outpatient primary care follow-up. Patient agrees with plan. Differential Diagnosis Differential Diagnosis Influenza, Pneumonia, Upper resp infection, volume overload Patient Discharge Departure Vital Signs/Condition Vital Signs First Documented: Result Date Time Pulse Ox 99 02/14 1058 B/P 136/83 02/14 1058 B/P Mean 100 02/14 1058 O2 Delivery Room air 02/14 1058 Temp 36.7 02/14 1058 Pulse 91 02/14 1058 Resp 18 02/14 1058 Last Documented: Result Date Time Pulse Ox 99 02/14 1058 B/P 136/83 02/14 1058 B/P Mean 100 02/14 1058 O2 Delivery Room air 02/14 1058 Temp 36.7 02/14 1058 Pulse 91 02/14 1058 Resp 18 02/14 1058 All vital signs available at the time of this entry have been reviewed. Clinical Impression Clinical Impression Primary Impression: Bronchitis Disposition Decision Discharge )( Discharged to Home Yes )( Time 1158 )( Date 02/15/24 Discharge/Care Plan (Auto) Prescriptions Current Visit Scripts Azithromycin (Z-PRIYA) 250 MG PO ASDIR Azithromycin (Z-PRIYA) 250 MG PO ASDIR #6 TABS Take 2 tablets today, then 1 tablet daily thereafter for a total of 5 days of treatment. Guaifenesin/Dextromethorphan (Mucinex Dm 1200/60 Mg) 1 TAB PO Q12H PRN CONGESTION Guaifenesin/Dextromethorphan (Mucinex Dm 1200/60 Mg) 1 TAB PO Q12H PRN CONGESTION #20 TABS Albuterol (Ventolin Hfa 90 Mcg/Act) 2 PUFF INH RTQ4H PRN PRN WHEEZING / SHORTNESS OF BREATH Albuterol (Ventolin Hfa 90 Mcg/Act) 2 PUFF INH RTQ4H PRN PRN WHEEZING / SHORTNESS OF BREATH #36 GM Patient Instructions ED Bronchitis with Wheezing (Adult) Additional Instructions Please follow-up with your primary care doctor within 1 to 2 days. Please return immediately to emergency department with any worsening of symptoms. 1. The examination and treatment that you have received has been on an emergency basis only and is not intended as an effort to provide complete medical care. It is impossible to recognize and treat all elements of an illness or injury in a single ER visit. 2. Thank you for allowing us to provide emergent medical care to you or your family member. We consider it a privilege to have served you during your illness or injury. 3. If you have received a prescription, please fill it TODAY and follow the instructions carefully. 4. Return to the ER for worsening symptoms. 5. Follow up with your family doctor Departure Forms FREE OR L[facility] PCP LIST at 1200 RPT #:[id number] END OF REPORT [facility] 2024-01-31 10:00:00 [facility] ([facility]) Hospitalist D/C Summary REPORT #: [id number] REPORT STATUS: Signed DATE: 01/31/24 TIME: 1000 PATIENT: KOTA MONTES UNIT #: [id number] ROOM #: NC.2105 BED: 1 : 61 AGE: 63 SEX: M ATTEND: Pete Vang MD ADM AUTHOR: Pete Vang MD ATTENTION *EDITS and/or ADDENDA must be made in Patient Keeper for this note. * * Edits and ammendments created in [employer] are not visible * * in Patient Keeper or the legal medical record ([facility]). * Note Date: 01/31/24 10:00 -- PROBLEMS/PROCEDURES -- ADMISSION DATE: 01/30/2024 ADMITTING DIAGNOSIS: - Acute hypoxic respiratory failure - Acute kidney injury - Acute on chronic systolic (congestive) heart failure - Anxiety disorder, unspecified - CAD (coronary artery disease) - Full code status - Heart failure, unspecified - Hyperlipidemia - Hypertension - Hypertensive heart disease with heart failure - Hyponatremia - On deep vein thrombosis (DVT) prophylaxis - Tobacco abuse - Unspecified atrial fibrillation - Acute hypoxic respiratory failure - Acute kidney injury - Acute on chronic systolic (congestive) heart failure - Anxiety disorder, unspecified - CAD (coronary artery disease) - Full code status - Heart failure, unspecified - Hyperlipidemia - Hypertension - Hypertensive heart disease with heart failure - Hyponatremia - On deep vein thrombosis (DVT) prophylaxis - Tobacco abuse - Unspecified atrial fibrillation - Acute blood loss anemia - Acute CHF - Acute decompensated heart failure - Acute kidney failure, unspecified - Acute kidney injury - Acute on chronic systolic (congestive) heart failure - Acute posthemorrhagic anemia - Acute respiratory failure with hypercapnia - Acute respiratory failure with hypoxia - Acute respiratory failure with hypoxia and hypercapnia - Anemia - Atherosclerotic heart disease of kar[place] coronary artery without angina pectoris - Atrial fibrillation with RVR - Cardiogenic shock - Flash pulmonary edema - Hyperlipidemia - Hypertension - Hypertensive heart disease with heart failure - Left bundle-branch block, unspecified - Presence of aortocoronary bypass graft - Presence of automatic (implantable) cardiac defibrillator - Rheumatic disorders of both mitral and aortic valves - Systolic dysfunction with acute on chronic heart failure - Unspecified atrial fibrillation DISCHARGE DATE: 01/31/24 DISCHARGE DIAGNOSIS: - Acute hypoxic respiratory failure - Acute kidney injury - Acute on chronic systolic (congestive) heart failure - Anxiety disorder, unspecified - CAD (coronary artery disease) - Full code status - Heart failure, unspecified - Hyperlipidemia - Hypertension - Hypertensive heart disease with heart failure - Hyponatremia - On deep vein thrombosis (DVT) prophylaxis - Tobacco abuse - Unspecified atrial fibrillation - Acute hypoxic respiratory failure - Acute kidney injury - Acute on chronic systolic (congestive) heart failure - Anxiety disorder, unspecified - CAD (coronary artery disease) - Full code status - Heart failure, unspecified - Hyperlipidemia - Hypertension - Hypertensive heart disease with heart failure - Hyponatremia - On deep vein thrombosis (DVT) prophylaxis - Tobacco abuse - Unspecified atrial fibrillation -- HOSPITAL COURSE -- HOSPITAL COURSE: 63-year-old male with history of CAD s/p CABG and ischemic cardiomyopathy s/p ICD placement presented to the emergency room with sudden onset of shortness of breath. He was just discharged from [facility] 3 weeks ago after requiring hospitalization with intubation secondary to decompensated congestive heart failure. He was admitted to this facility on 01/27 for a CHF exacerbation after dietary indiscretion. He was weaned from BIPAP to room air. He felt better yesterday morning, so he left AMA. He returned within a couple of hours due to shortness of breath. He continued with diuresis and feels much better today. His oxygenation remains good on room air. -- DISCHARGE MEDICATIONS -- ALLERGIES - No Known Allergies ( UNKNOWN - Allergy ) DISCHARGE MEDICATIONS - Amiodarone Tab (Cordarone Tab) 200 MG PO BID - Amiodarone Tab (Cordarone Tab) 400 MG PO Q12HR - Apixaban Tab (Eliquis Tab) 5 MG PO BID - Atorvastatin Tab (Lipitor Tab) 80 MG PO BEDTIME - Celecoxib Cap (CeleBREX Cap) 200 MG PO DAILY - Folic Acid Tab (Folvite Tab) 1 MG PO DAILY - Furosemide Tab (Lasix Tab) 40 MG PO DAILY, Disp: 30 tablet, Refills: 0 - HYDROcodone/APAP 5/325 Tab (Corinne 5/325 Tab) 1 TAB PO Q6H PRN pain scale 4-6 (use 1st) - Lexapro tab (escitalopram oxalate) 20 MG PO DAILY - Lexapro tab (escitalopram oxalate) 20 MG PO DAILY - Methocarbamol Tab (Robaxin Tab) 750 MG PO TID - Metoprolol Succinate XL Tab (Toprol XL Tab) 25 MG PO DAILY - Metoprolol Tartrate Tab (Lopressor Tab) 12.5 MG PO Q12HR - Metoprolol Tartrate Tab (Lopressor Tab) 25 MG PO BID - Pregabalin Cap (Lyrica Cap) 50 MG PO BID - Thiamine Tab (Vitamin B-1 Tab) 100 MG PO DAILY - Ticagrelor Tab (Brilinta Tab) 90 MG PO Q12HR -- DISCHARGE INSTRUCTIONS -- PENDING LABS/TESTS AT DISCHARGE PENDING LABS: none PENDING TESTS: none Admission Orders Discharge Follow Up In 1-2 weeks; In 1-2 weeks; MARIAM CHARLTON MD; In 1-2 weeks; In 1-2 weeks; In 1-2 weeks; [id number]:Mariam Charlton MD Details: Order number: [id number] Category: ADT - Admission Orders Order status: Transmitted Details: Consulting provider 1: [email or web address]:Mariam Charlton MD Consulting provider 1: . Consult follow up timeframe: In 1-2 weeks Ordered by: Pete Vang MD Jan 31, 2024 9:53am Entered by: Pete Vang MD Service date: Jan 31, 2024 9:52am PK Discharge Orders DC - HF 2021. Details: Does patient have any of the following conditions at discharge? HF EJ Fraction: Eval After DC Beta-Miguelangel at Discharge: Yes Aldosterone Antagonist at Discharge: No - BB dose suboptimal Fluid Restriction Limit (mls/day): 1500 Weight Monitoring: Daily Discharge w/Instructions Jong Roman MD Details: Order number: [id number] Category: PKDC - PK Discharge Orders Order status: Transmitted Details: Discharge order: Yes Discharge to: Home/Self Care Diet: Fluid Restrictions Low Sodium Activity: As Tolerated PCP: Jong Roman MD PCP follow up timeframe: In 1-2 weeks Fluid Restriction Limit (mls/day): 1500 Weight Monitoring: Daily Additional Discharge Routines: PCP Follow-Up Ordered by: Pete Vang MD Jan 31, 2024 9:53am Entered by: Pete Vang MD Service date: Jan 31, 2024 9:52am Emergency instructions: The patient was instructed to present to the nearest Emergency Department or call 911 should their symptoms return or worsen. ADDTIONAL DISCHARGE INSTRUCTIONS: Emergency Instructions: The patient was instructed to present to the nearest Emergency Department or call 911 should their symptoms return or worsen.; -- OBJECTIVE -- VITALS (01/29 10:06 - 01/30 10:06): Blood pressure: 117/74 (109/63 - 159/96) Respiratory rate: 18 (16 - 20) Temperature C: 36.5 (36.5 - 36.8) Temperature source: Oral Pulse Rate: 82 (79 - 101) I/OS (01/29 07:00-01/30 07:00): Net-350 [id number] Amount taken:25 Number of continent voids:1 Oral ml:350 Void ml:700 EXAM: General: Well developed, well nourished, in no apparent distress. Head: Normocephalic, atraumatic. Eyes: conjunctiva and sclera clear, without nystagmus, lids normal Ears: grossly normal hearing Nose: No deformity Mouth: normal mucosa Neck: Supple Chest: Grossly normal appearance. Lungs: Clear bilaterally with normal respiratory effort. Heart: Regular rate and rhythm, normal S1, S2, no murmurs Abdomen: Soft, non-tender. Musculoskeletal: No deformity, no scoliosis noted of thoracic or lumbar spine, joint ROM grossly normal, normal gait and station. Extremities: 1+ edema in BLEs. Neurological: No focal deficits, cranial nerves II-XII grossly intact, normal sensation, normal reflexes, normal coordination, normal muscle strength, normal tone. Pulses: Pulses normal in all extremities. Skin: Intact without significant lesions, or rashes. Lymph Nodes: No significant cervical node adenopathy. Psychiatric: Alert and oriented to time, person, place. Normal mood and affect, intact judgment and insight. -- DATA -- ALLERGIES LAB RESULTS GLU BED (01/31/24 06:23) GLUBED 97 GLU BED (01/31/24 08:04) GLUBED 115 H at 1007 ATTENTION *EDITS and/or ADDENDA must be made in Patient Keeper for this note. * * Edits and ammendments created in [employer] are not visible * * in Patient Keeper or the legal medical record ([facility]). * RPT #: [id number] END OF REPORT [facility] 2024-01-31 09:52:00 [facility] ([facility]) Med Order Sheet REPORT #: [id number] REPORT STATUS: Signed DATE: 01/31/24 TIME: 951 PATIENT: KOTA MONTES UNIT #: [id number] ROOM #: NC.2105 BED: 1 : 61 AGE: 63 SEX: M ATTEND: Pete Vang MD ADM AUTHOR: Pete Vang MD ATTENTION *EDITS and/or ADDENDA must be made in Patient Keeper for this note. * * Edits and ammendments created in [employer] are not visible * * in Patient Keeper or the legal medical record ([facility]). * Discharge Medication Reconciliation DISCHARGE MEDICATION LIST Amiodarone Tab (Cordarone Tab) Dose: 400 MG PO Q12HR Apixaban Tab (Eliquis Tab) Dose: 5 MG PO BID Atorvastatin Tab (Lipitor Tab) Dose: 80 MG PO BEDTIME Celecoxib Cap (CeleBREX Cap) Dose: 200 MG PO DAILY Folic Acid Tab (Folvite Tab) Dose: 1 MG PO DAILY HYDROcodone/APAP 5/325 Tab (Corinne 5/325 Tab) Dose: 1 TAB PO Q6H PRN pain scale 4-6 (use 1st) Lexapro tab (escitalopram oxalate) Dose: 20 MG PO DAILY Methocarbamol Tab (Robaxin Tab) Dose: 750 MG PO TID Metoprolol Tartrate Tab (Lopressor Tab) Dose: 12.5 MG PO Q12HR Pregabalin Cap (Lyrica Cap) Dose: 50 MG PO BID Thiamine Tab (Vitamin B-1 Tab) Dose: 100 MG PO DAILY Ticagrelor Tab (Brilinta Tab) Dose: 90 MG PO Q12HR Furosemide Tab (Lasix Tab) Dose: 40 MG PO DAILY, Disp: 30 tablet, Refills: 0 STOPPED HOME MEDICATIONS Dc'd: Potassium Chlor Tab.ER (K Dur Tab) 20 MEQ PO DAILY STOPPED HOSPITAL MEDICATIONS Dc'd: Acetaminophen Tab (Tylenol Tab) 650MG PO Q4H PRN pain 1-3/temp > 100.5/headacheDc'd: ALPRAZolam Tab (Xanax Tab) 0.25MG PO BID PRN agitation or anxietyDc'd: Mag/Al/Simeth Oral Liquid (Maalox Max Oral Liquid) 30ML PO Q4H PRN indigestion/heartburnDc'd: Melatonin Tab (Melatonin Tab) 5MG PO BEDTIME PRN insomniaDc'd: Ondansetron Inj (Zofran Inj) 4MG IV Q4H PRN nausea and vomiting at 0952 ATTENTION *EDITS and/or ADDENDA must be made in Patient Keeper for this note. * * Edits and ammendments created in [employer] are not visible * * in Patient Keeper or the legal medical record ([facility]). * RPT #: [id number] END OF REPORT [facility] 2024-01-30 14:43:00 [facility] ([facility]) Hospitalist H P REPORT #: [id number] REPORT STATUS: Signed DATE: 01/30/24 TIME: 1443 PATIENT: KOTA MONTES UNIT #: [id number] ROOM #: NC.ERTELBED: 4 : 61 AGE: 63 SEX: M ATTEND: Pete Vang MD [facility] AUTHOR: Pete Vang MD ATTENTION *EDITS and/or ADDENDA must be made in Patient Keeper for this note. * * Edits and ammendments created in [employer] are not visible * * in Patient Keeper or the legal medical record ([facility]). * Note Date: 01/30/24 14:43 -- HISTORY -- ADMISSION DATE 01/30/2024 Primary care provider:Jong Pollack MD CHIEF COMPLAINT: shortness of breath HPI: 63-year-old male with history of CAD s/p CABG and ischemic cardiomyopathy s/p ICD placement presented to the emergency room with sudden onset of shortness of breath. He was just discharged from [facility] 3 weeks ago after requiring hospitalization with intubation secondary to decompensated congestive heart failure. He was admitted to this facility two days ago for a CHF exacerbation after dietary indiscretion. He was weaned from BIPAP to room air. He felt better this morning, so he left AMA. He returned within a couple of hours due to shortness of breath. PAST MEDICAL / SURGICAL HISTORY: PAST MEDICAL HISTORY: - Acute hypoxic respiratory failure - Acute kidney injury - Acute on chronic systolic (congestive) heart failure - Anxiety disorder, unspecified - CAD (coronary artery disease) - Full code status - Heart failure, unspecified - Hyperlipidemia - Hypertension - Hypertensive heart disease with heart failure - Hyponatremia - On deep vein thrombosis (DVT) prophylaxis - Tobacco abuse - Unspecified atrial fibrillation - Acute blood loss anemia - Acute CHF - Acute decompensated heart failure - Acute kidney failure, unspecified - Acute kidney injury - Acute on chronic systolic (congestive) heart failure - Acute posthemorrhagic anemia - Acute respiratory failure with hypercapnia - Acute respiratory failure with hypoxia - Acute respiratory failure with hypoxia and hypercapnia - Anemia - Atherosclerotic heart disease of kar[place] coronary artery without angina pectoris - Atrial fibrillation with RVR - Cardiogenic shock - Flash pulmonary edema - Hyperlipidemia - Hypertension - Hypertensive heart disease with heart failure - Left bundle-branch block, unspecified - Presence of aortocoronary bypass graft - Presence of automatic (implantable) cardiac defibrillator - Rheumatic disorders of both mitral and aortic valves - Systolic dysfunction with acute on chronic heart failure - Unspecified atrial fibrillation PAST MEDICAL HISTORY: CAD s/p 2v CAB (06/25) and PCI (, 06/24, 12/24, 07/25) Ischemic cardiomyopathy (EF 25-29%) HTN HLD h/o ETOH abuse tobacco abuse anxiety/depression medical non-compliance PAST SURGICAL HISTORY: CABG x2v (June) ICD placement IMMUNIZATION STATUS: None FAMILY HISTORY: HTN DM Social History Tobacco use: PACK/DAY 1 YEARS USED 47 DETAILS/COMMENTS: former Vaping/Inhaled solvents: DETAILS/COMMENTS: Currently vapes Alcohol use: DETAILS/COMMENTS: former Drug use: DETAILS/COMMENTS: Denies recent hx MARITAL STATUS: 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 with -- SUBJECTIVE -- REVIEW OF SYSTEMS: General: Negative for fever, malaise, fatigue. Eyes: Negative for blurry vision. No diplopia. Ears/Nose/Throat: Negative for sore throat. No otalgia. No rhinorrhea. Respiratory: Positive for dyspnea. No cough. Cardiovascular: Negative for chest pain or palpitations. Positive for extremity swelling. Gastrointestinal: Negative for abdominal pain or nausea. No emesis. No diarrhea. Genitourinary: Negative for dysuria, frequency, or urgency. No gross hematuria. Musculoskeletal: Negative for joint stiffness, pain, or arthralgias. Skin: Negative for rashes. No pruritus. Neurological: Negative for headache. No vertigo. Denies paresthesias. Psychiatric: Negative for specific complaints. Endocrine: Negative for cold intolerance, heat intolerance, polyphagia, polydipsia, polyuria, weight change, fatigue. Hematalogic / Lymphoreticular: Negative for excessive bleeding, unusual masses. -- EXAM -- EXAM: General: Well developed, well nourished, in no apparent distress. Head: Normocephalic, atraumatic. Eyes: conjunctiva and sclera clear, without nystagmus, lids normal Ears: grossly normal hearing Nose: No deformity Mouth: normal mucosa Neck: Supple Chest: Grossly normal appearance. Lungs: Clear bilaterally with normal respiratory effort. Heart: Regular rate and rhythm, normal S1, S2, no murmurs Abdomen: Soft, non-tender. Musculoskeletal: No deformity, no scoliosis noted of thoracic or lumbar spine, joint ROM grossly normal, normal gait and station. Extremities: 1+ edema in BLEs. Neurological: No focal deficits, cranial nerves II-XII grossly intact, normal sensation, normal reflexes, normal coordination, normal muscle strength, normal tone. Pulses: Pulses normal in all extremities. Skin: Intact without significant lesions, or rashes. Lymph Nodes: No significant cervical node adenopathy. Psychiatric: Alert and oriented to time, person, place. Normal mood and affect, intact judgment and insight. -- ASSESSMENT/PLAN -- A/P: 1: Acute on chronic systolic (congestive) heart failure A/P: Secondary to dietary indiscretion Presented with flash pulmonary edema; BNP = 348 Continue to diurese with lasix IV LVEF = 25-29% (01/01/2024) r/o NM with serial enzymes TFTs monitor on tele low sodium diet fluid restriction 2: CAD (coronary artery disease) A/P: Continue statin, Brilinta, BB, and Eliquis 3: Unspecified atrial fibrillation A/P: Continue amiodarone Continue Eliquis for CVA prophylaxis 4: Hyponatremia A/P: Secondary to volume overload 5: Hypertension A/P: cont metoprolol 6: Hyperlipidemia A/P: cont statin 7: Acute kidney injury A/P: monitor closely on lasix avoid nephrotoxins 8: Anxiety disorder, unspecified A/P: Continue Lexapro 9: Tobacco abuse A/P: advised cessation patient states he has quit 10: On deep vein thrombosis (DVT) prophylaxis A/P: on eliquis 11: Full code status at 1454 ATTENTION *EDITS and/or ADDENDA must be made in Patient Keeper for this note. * * Edits and ammendments created in [facility] are not visible * * in Patient Keeper or the legal medical record (HPF). * RPT #: [id number] END OF REPORT [facility] 2024-01-30 14:40:00 [facility] ([facility]) Hospitalist D/C Summary REPORT #: [id number] REPORT STATUS: Signed DATE: 01/30/24 TIME: 1440 PATIENT: KOTA MOTNES UNIT #: [id number] ROOM #: BED: : 61 AGE: 63 SEX: M ATTEND: Bianka Gifford MD ADM DT: AUTHOR: Pete Vang MD ATTENTION *EDITS and/or ADDENDA must be made in Patient Keeper for this note. * * Edits and ammendments created in [employer] are not visible * * in Patient Keeper or the legal medical record ([facility]). * Note Date: 01/30/24 14:40 -- PROBLEMS/PROCEDURES -- ADMISSION DATE: 01/30/2024 ADMITTING DIAGNOSIS: - Acute hypoxic respiratory failure - Acute kidney injury - Acute on chronic systolic (congestive) heart failure - Anxiety disorder, unspecified - CAD (coronary artery disease) - Full code status - Heart failure, unspecified - Hyperlipidemia - Hypertension - Hypertensive heart disease with heart failure - Hyponatremia - On deep vein thrombosis (DVT) prophylaxis - Tobacco abuse - Unspecified atrial fibrillation - Acute blood loss anemia - Acute CHF - Acute decompensated heart failure - Acute kidney failure, unspecified - Acute kidney injury - Acute on chronic systolic (congestive) heart failure - Acute posthemorrhagic anemia - Acute respiratory failure with hypercapnia - Acute respiratory failure with hypoxia - Acute respiratory failure with hypoxia and hypercapnia - Anemia - Atherosclerotic heart disease of [place] coronary artery without angina pectoris - Atrial fibrillation with RVR - Cardiogenic shock - Flash pulmonary edema - Hyperlipidemia - Hypertension - Hypertensive heart disease with heart failure - Left bundle-branch block, unspecified - Presence of aortocoronary bypass graft - Presence of automatic (implantable) cardiac defibrillator - Rheumatic disorders of both mitral and aortic valves - Systolic dysfunction with acute on chronic heart failure - Unspecified atrial fibrillation DISCHARGE DATE: 01/30/24 DISCHARGE DIAGNOSIS: - Acute hypoxic respiratory failure - Acute kidney injury - Acute on chronic systolic (congestive) heart failure - Anxiety disorder, unspecified - CAD (coronary artery disease) - Full code status - Heart failure, unspecified - Hyperlipidemia - Hypertension - Hypertensive heart disease with heart failure - Hyponatremia - On deep vein thrombosis (DVT) prophylaxis - Tobacco abuse - Unspecified atrial fibrillation -- HOSPITAL COURSE -- HOSPITAL COURSE: 63-year-old male with history of CAD s/p CABG and ischemic cardiomyopathy s/p ICD placement presented to the emergency room with sudden onset of shortness of breath. He was just discharged from [facility] 3 weeks ago after requiring hospitalization with intubation secondary to decompensated congestive heart failure. In the emergency room, BNP was elevated (348), lactic acid was elevated (2.7), and chest x-ray showed cardiomegaly with interstitial pulmonary edema. Patient was hypoxic and required BiPAP in the emergency room. He was diuresed and weaned to room air but he left AMA because he wanted to be home for [place]. -- DISCHARGE MEDICATIONS -- ALLERGIES - No Known Allergies ( UNKNOWN - Allergy ) -- DISCHARGE INSTRUCTIONS -- PENDING LABS/TESTS AT DISCHARGE PENDING LABS: none PENDING TESTS: none Emergency instructions: The patient was instructed to present to the nearest Emergency Department or call 911 should their symptoms return or worsen. ADDTIONAL DISCHARGE INSTRUCTIONS: Emergency Instructions: The patient was instructed to present to the nearest Emergency Department or call 911 should their symptoms return or worsen.; -- OBJECTIVE -- VITALS (01/28 14:40 - 01/29 14:40): Temperature F: 98 Temperature C: 36.7 (36.5 - 36.7) Temperature source: Oral Pulse Rate: 87 (80 - 101) Blood pressure: 151/96 (121/66 - 151/96) Respiratory rate: 16 (16 - 20) I/OS (01/28 07:00-01/29 07:00): Net-1,100 Output1,100 Number of continent voids:2 Void ml:1,100 -- DATA -- ALLERGIES LAB RESULTS MAG (01/30/24 04:42) MAGNESIUM 2 PHOS (01/30/24 04:42) PHOSPHOROUS 2.6 CBC W/AUTO DIFF (11/28/24 04:42) MONOCYTE # 0.89 H NEUTROPHIL % 81.6 H EOSINOPHIL # 0.24 IMMATURE GRANULOCYTE % 0.6 BASOPHIL # 0.05 LYMPHOCYTE % 7.3 L NUCLEATED RBC # 0 MONOCYTE % 8 EOSINOPHIL % 2.1 BASOPHIL % 0.4 NUCLEATED RBC % 0 NEUTROPHIL # 9.12 H IMMATURE GRANULOCYTE # 0.07 WHITE BLOOD CELL 11.2H H RED BLOOD CELL 4.64 HEMOGLOBIN 14.7 HEMATOCRIT 43.1 MEAN CELL VOLUME 93 D MEAN CELL HGB 31.7 MEAN CELL HGB CONCENTRATION 34.1 RED CELL DISTRIBUTION WIDTH 17.3 H PLATELET COUNT 144L L LYMPHOCYTE # 0.82 L MEAN PLATELET VOLUME 9.9 BASIC METABOLIC PANEL (01/30/24 04:42) BUN/CREATININE RATIO 15.5 CALCIUM 9.9 SODIUM 135L L POTASSIUM 3.8 CHLORIDE 97L L CARBON DIOXIDE 29 ANION GAP 12.2 GLUCOSE 104 BLOOD UREA NITROGEN 17 GLOMERULAR FILTRATION RATE >=60 max estimate CREATININE 1.1 at 1442 ATTENTION *EDITS and/or ADDENDA must be made in Patient Keeper for this note. * * Edits and ammendments created in [facility] are not visible * * in Patient Keeper or the legal medical record (HPF). * [facility] #: [id number] END OF REPORT [facility] 2024-01-30 14:06:00 [facility] ([facility]) Pulmonology Progress Note REPORT #: [id number] REPORT STATUS: Signed DATE: 01/30/24 TIME: 1406 PATIENT: KOTA MONTES UNIT #: [id number] ROOM #: BED: : 61 AGE: 63 SEX: M ATTEND: Bianka Gifford MD ADM DT: AUTHOR: Bee Nolasco MD ATTENTION *EDITS and/or ADDENDA must be made in Patient Keeper for this note. * * Edits and ammendments created in [employer] are not visible * * in Patient Keeper or the legal medical record (HPF). * Note Date: 01/30/24 14:06 -- ASSESSMENT/PLAN -- GENERAL ASSESSMENT: [facility] Pulmonary Progress Note Assessment Acute Hypoxic Respiratory Failure Acute on chronic HFrEF Exacerbation Acute Flash Pulmonary Edema Lactic Acidosis Hyponatremia HTN HLD CAD SAMMIE, mild Anxiety Tobacco use Neuro- - Neuro checks CV- - Monitor HR/BP - Trend Tnl, 16 - BNP 348 - Start BID Lasix, further diuresis per cardiology - TTE 12/31 with EF 25-29% and severe global hypokinesis - Hx of AFib on home Eliquis - s/p AICD 01/01 @ [facility] - noted healing dehiscence w/ scab - Resume home regimen pending medication reconciliation - Cardiology consulted in ED Pulm- - Placed to Bipap in ED for Respiratory distress/WOB - Now weaned to 4L NC; supplemental O2 to keep sats > 92% - CXR: Cardiomegaly with interstitial pulmonary edema, worse on the right. Now off oxygen. Doing better. GI- - ADAT Renal- - BMP reviewed - Replace electrolytes as indicated - Monitor UOP - Avoid nephrotoxins - sCr on presentation 1.6, monitor for increasing indices on lasix ID- - Trend WBC, fever curve - Follow cultures - Trend lactic, 2.7 - Empiric Rocephin Heme- - CBC reviewed - No overt bleeding - Trend Hgb, platelets Endo- - Accuchecks - Monitor for hypoglycemia Dispo: ICU Code Status: Full VTe ppx: SCD. On home Eliquis GI ppx: Not indicated Pt seen this AM. Doing better. Left AMA. d/w pt, RN. All questions were answered. --------- Subjective: Pt states breathing is back to normal. No chest pain. Room air. HPI: Mr. Montes is a 63 yo male with pmx of HTN, HLD, CAD, CHF, CABG 06/25, AICD 01/01 who presented to ED with sudden onset of SOB last night. Denies any recent fever/chills, CP, sob, n/v/d. Recent complicated course of admission last month for decompensated CHF with intubation at this facility in which he was ultimately transferred to [facility] for further heart failure management; received AICD 01/01 and discharged first week of this current month. Diagnostics in ED concerning for BNP 348, lactic 2.7, and CXR w/ cardiomegaly and interstitial pulmonary edema. Initially placed to bipap for respiratory distress, WOB, and hypoxia w/ sats down to 50s. Upon my assessment in ED patient had been diuresed w/ Lasix x 1, was weaned off of bipap to 4L NC, and was in no distress. Admitted for further work up. Sees Dr. Childs. Thank you for this consultation. We will follow with you. Please call for any concerns. Past medical history: HTN, HLD, CAD, CHF PSurgHx: CABG in June 2023, PCI with stent , Multiple intubations FamHx: nc SocHx: ETOH quit June 2023, Ex smoker 2pk/40 yrs, Currently vapes Review of systems: Limited, as per HPI Physical Exam General: NAD Eyes: Anicteric sclerae. Mouth: MMM Neck: Supple. CV: Paced. Normal S1 and S2. Pulm: Good effort, diminished Abdomen: Soft, nontender. Extremities: Trace lower extremity edema. Skin: Warm, dry. Neuro: Awake, no gross deficits Psych: Restless, anxious -- EXAM -- VITALS (01/28 14:06 - 01/29 14:06): Blood pressure: 151/96 (121/66 - 151/96) Respiratory rate: 16 (16 - 20) Temperature F: 98.0 Temperature C: 36.7 (36.5 - 36.7) Temperature source: Oral Pulse Rate: 87 (80 - 101) IOS (01/28 07:00-01/29 07:00): Net-1,100 Output1,100 Number of continent voids:2 Void ml:1,100 -- DATA -- LAB RESULTS MAG (01/30/24 04:42) MAGNESIUM 2.0 PHOS (01/30/24 04:42) PHOSPHOROUS 2.6 CBC W/AUTO DIFF (01/30/24 04:42) MONOCYTE # 0.89 H NEUTROPHIL % 81.6 H EOSINOPHIL # 0.24 IMMATURE GRANULOCYTE % 0.6 BASOPHIL # 0.05 LYMPHOCYTE % 7.3 L NUCLEATED RBC # 0.000 MONOCYTE % 8.0 EOSINOPHIL % 2.1 BASOPHIL % 0.4 NUCLEATED RBC % 0.0 NEUTROPHIL # 9.12 H IMMATURE GRANULOCYTE # 0.070 WHITE BLOOD CELL 11.2H H RED BLOOD CELL 4.64 HEMOGLOBIN 14.7 HEMATOCRIT 43.1 MEAN CELL VOLUME 93 D MEAN CELL HGB 31.7 MEAN CELL HGB CONCENTRATION 34.1 RED CELL DISTRIBUTION WIDTH 17.3 H PLATELET COUNT 144L L LYMPHOCYTE # 0.82 L MEAN PLATELET VOLUME 9.9 BASIC METABOLIC PANEL (01/30/24 04:42) BUN/CREATININE RATIO 15.5 CALCIUM 9.9 SODIUM 135L L POTASSIUM 3.8 CHLORIDE 97L L CARBON DIOXIDE 29 ANION GAP 12.2 GLUCOSE 104 BLOOD UREA NITROGEN 17 GLOMERULAR FILTRATION RATE >=60 max estimate CREATININE 1.1 at 1408 ATTENTION *EDITS and/or ADDENDA must be made in Patient Keeper for this note. * * Edits and ammendments created in [employer] are not visible * * in Patient Keeper or the legal medical record (HPF). * [facility] #: [id number] END OF REPORT [facility] 2024-01-30 14:06:00 [facility] ([facility]) EMERGENCY PROVIDER REPORT REPORT#:[id number] REPORT STATUS: Signed DATE:01/30/24 TIME: 140 PATIENT: KOTA MONTES UNIT #: [id number] [address]OM: [address]: 1 : 61 AGE: 63 SEX: M PCP PHYS: Jong Pollack MD SERVICE AUTHOR: Bianka Gifford MD REP SRV REP SRV TM: 1406 * ALL edits or amendments must be made on the electronic/computer document * HPI-Dizziness/Weakness Free Text HPI Notes Free Text HPI Notes 63-year-old male history of CHF, hyponatremia, hypertension, CAD, SAMMIE who was admitted to the hospital for CHF exacerbation and left AMA today return to the emergency room with complaints of dizziness and sweating. Patient states an hour after he left the hospital, he got home and started feeling lightheaded like he was going to pass out and sweaty. No shortness of breath or chest pain so he came back to the emergency room. General Initial Greet Date/Time 01/30/24 1311 Presentation Chief Complaint Dizzy, SWEATING Risk-Dizziness/Weakness Risk Stratification NIH Stroke Scale NIH Stroke Scale Response Value NIHSS Applicable? No 0 Total 0 Review of Systems ROS Statements All systems rev neg except as marked. Past Medical History - Adult Stated Complaint DIZZY, SWEATING Allergies Coded Allergies: No Known Allergies (12/31/23) Home Medications Active Scripts Folic Acid 1 MG PO DAILY Folic Acid 1 MG PO DAILY #90 PACK Prov: 01/07/24 Amiodarone (Pacerone) 400 MG PO Q12HR Amiodarone (Pacerone) 400 MG PO Q12HR #120 TAB Prov: 01/07/24 Thiamine (Vitamin B-1) 100 MG PO DAILY Thiamine (Vitamin B-1) 100 MG PO DAILY #90 TAB Prov: 01/07/24 Escitalopram (Lexapro) 20 MG PO DAILY Escitalopram (Lexapro) 20 MG PO DAILY #90 TAB Prov: 01/07/24 Hydrocodone/Acetaminophen (HYDROcodone/APAP 5/325) 1 TAB PO Q6H PRN pain scale 4 -6 (use 1st) 3 Days #12 TAB Prov: 01/07/24 Apixaban (Eliquis) 5 MG PO BID Apixaban (Eliquis) 5 MG PO BID #60 TAB Prov: 01/07/24 Atorvastatin (Lipitor) 80 MG PO BEDTIME Atorvastatin (Lipitor) 80 MG PO BEDTIME #90 TAB Prov: 01/07/24 methocarbamoL (Robaxin) 750 MG PO TID methocarbamoL (Robaxin) 750 MG PO TID #90 TAB Prov: 01/07/24 Pregabalin (Lyrica) 50 MG PO BID Pregabalin (Lyrica) 50 MG PO BID #90 CAP Prov: 01/07/24 Metoprolol Tartrate (Lopressor) 12.5 MG PO Q12HR Metoprolol Tartrate (Lopressor) 12.5 MG PO Q12HR #90 TAB Prov: 01/07/24 Reported Medications Escitalopram (Lexapro) 20 MG PO DAILY Ticagrelor (Brilinta) 90 MG PO Q12HR Potassium Chloride Er (Klor-Con M20) 20 MEQ PO DAILY Celecoxib (Celebrex) 200 MG PO DAILY Amiodarone (Pacerone) 200 MG PO BID Metoprolol Succ Xl (Toprol Xl) 25 MG PO DAILY Metoprolol Tartrate (Lopressor) 25 MG PO BID Discontinued Reported Medications Metoprolol Tartrate (Lopressor) 25 PO DAILY Past Medical History: Reports: Coronary artery disease, Hypertension, Dyslipidemia. Additional Medical History History of NM Past Surgical History: Reports: CABG. Additional Surgical History Cardiac stents, right hip hardware Alcohol Use Alcohol use Drug Use Denies recreational drugs Smoking status for patients 13 years old or older: Former Smoker Physical Exam Vital Signs Vital Signs First Documented: Result Date Time O2 Delivery Room air 01/29 1314 Pulse Ox 97 01/29 1317 B/P 151/96 01/29 1317 B/P Mean 114.0 01/29 1317 Temp 36.7 01/29 1317 Pulse 87 01/29 1317 Resp 16 01/29 1317 Last Documented: Result Date Time Pulse Ox 96 01/29 1430 B/P 154/83 01/29 1430 B/P Mean 112 01/29 1430 Pulse 80 01/29 1430 Resp 19 01/29 1430 Temp 36.7 01/29 1317 O2 Delivery Room air 01/29 1314 Review of Vital Signs Reviewed, Vital signs normal Free Text PE Notes Free Text PE Notes Constitutional: Comfortable, no acute distress Head: Normocephalic, atraumatic Eyes: PERRLA, EOMI, no discharge Respiratory: Clear to auscultation bilaterally, no wheezing rhonchi or rales Cardiac: Regular rate and rhythm, no murmurs GI: Abdomen soft, nontender, nondistended Skin: No erythema, no rash MSK: No pedal edema, pulses intact, no tenderness to palpation Neuro: ANO x4, no motor or sensory deficits, Interpretation Diagnostics Lab Results Interpretation Considerations Independ review imaging, Reviewed prior records Results Laboratory Tests: 01/29 1337 Chemistry Triglycerides (0 - 149 mg/dL) 115 Cholesterol (0 - 200 mg/dL) 166 LDL Cholesterol Measurd (0 - 100 mg/dL) 53 HDL Cholesterol (40 - 59 mg/dL) 74 H Cholesterol/HDL Ratio (1 - 6) 2 Imaging Statement Radiographic studies reviewed and considered in the medical decision-making. Lab Imaging Statement Laboratory radiographic studies reviewed and considered in the medical decision-making. ECG #1 Interpretation Text/Dict Note AV dual paced rhythm heart rate of 80, normal axis, prolonged QTc of 548, no ST elevations or depressions Date 01/30/24 Time 1403 Interpreted by and reviewed by me Re-Evaluation MDM Free Text MDM Notes Additional Text 63-year-old male history of CAD, CHF, hypertension, hyperlipidemia, left AMA from the hospital 2 hours ago came back due to dizziness and sweating. I reviewed labs were performed this morning on the inpatient side. Hemoglobin was 11.2, no anemia, sodium 135. EKG was repeated here, shows AV paced rhythm, no ischemic changes. Plan to readmit the patient to the hospital for continued management by cardiology. Patient amenable to be "admitted for 1 day". Signout given to inpatient team who accept the patient. The medical decision making includes independent review of any ordered imaging and EKGs and are in agreement with radiology interpretation unless documented otherwise. Individual labs and/or microbiologic data along with urine studies ordered and resulted at time of dictation have been interpreted by me and do not appear to contribute to an emergency diagnosis unless as mentioned above. Outside records including the most recent discharge summary, if available, have been reviewed. Consultants including hospitalists involved in the case as ordered/documented in the EMR agree with ED plan unless as documented above Social determinants of health were considered and impacted medical decision making and as a result part of patient's plan of care A decision regarding admission was discussed including risks and benefits. Patient Discharge Departure Vital Signs/Condition Vital Signs First Documented: Result Date Time O2 Delivery Room air 01/29 1314 Pulse Ox 97 01/29 1317 B/P 151/96 01/29 1317 B/P Mean 114.0 01/29 1317 Temp 36.7 01/29 1317 Pulse 87 01/29 1317 Resp 16 01/29 1317 Last Documented: Result Date Time Pulse Ox 96 01/29 1430 B/P 154/83 01/29 1430 B/P Mean 112 01/29 1430 Pulse 80 01/29 1430 Resp 19 01/29 1430 Temp 36.7 01/29 1317 O2 Delivery Room air 01/29 1314 All vital signs available at the time of this entry have been reviewed. Condition Stable Clinical Impression Clinical Impression Primary Impression: Dizzy Disposition Decision Hospitalize Request Time 1422 Request Date 01/30/24 )( Accepts Hospitalization Yes )( Reason for Hospitalization Dizziness )( Accepted Time 1421 )( Accepted Date 01/30/24 Call Information will see patient at 2102 RPT #:[id number] END OF REPORT [facility] 2024-01-30 14:03:00 [id number] [facility] [id number] [place], [place] [address] PATIENT NAME: KOTA MONTES ADMIT DATE: 01/30/24 ACCOUNT NO: [id number] ROOM NO: [id number] AGE: 63 REPORT TYPE: eELECTROCARDIOGRAM SEX: M ADMITTING PHYSICIAN:Pete Vang MD ATTENDING PHYSICIAN:Pete Vang MD Order: [id number] Test Reason : DIZZY Test Date/Time Stamp: SatJan 30 2024 14:03:12 Blood Pressure : / mmHG Vent. Rate : 080 BPM Atrial Rate : 080 BPM P-R Int : 160 ms QRS Dur : 150 ms QT Int : 476 ms P-R-T Axes : 073 120 020 degrees QTc Int : 548 ms AV dual-paced rhythm Abnormal ECG When compared with ECG of 28-JAN-2024 19:26, Vent. rate has decreased BY 37 BPM Confirmed by MARIAM CHARLTON ([id number]) on 02/01/2024 11:35:35 AM Referred By: Bianka Gifford Confirmed by:MARIAM CHARLTON at [id number] [facility] [id number] PATIENT NAME: KOTA MONTES [facility] 2024-01-30 10:04:00 [facility] ([facility]) Hospitalist Progress Note REPORT #: [id number] REPORT STATUS: Signed DATE: 01/30/24 TIME: 1004 PATIENT: KOTA MONTES UNIT #: [id number] ROOM #: OH.ERIMCBED: 18 : 61 AGE: 63 SEX: M ATTEND: Pete Vang MD ADM AUTHOR: Pete Vang MD ATTENTION *EDITS and/or ADDENDA must be made in Patient Keeper for this note. * * Edits and ammendments created in [employer] are not visible * * in Patient Keeper or the legal medical record (HPF). * Note Date: 01/30/24 10:04 -- ASSESSMENT/PLAN -- ASSESSMENT / PLAN: 1: Acute on chronic systolic (congestive) heart failure A/P: Secondary to dietary indiscretion Presented with flash pulmonary edema; BNP = 348 Continue to diurese with lasix IV LVEF = 25-29% (01/01/2024) r/o NM with serial enzymes TFTs monitor on tele low sodium diet fluid restriction 2: Acute hypoxic respiratory failure A/P: Resolved s/p diuresis 3: CAD (coronary artery disease) A/P: Continue statin, Brilinta, BB, and Eliquis 4: Unspecified atrial fibrillation A/P: Continue amiodarone Continue Eliquis for CVA prophylaxis 5: Hyponatremia A/P: Secondary to volume overload 6: Hypertension A/P: cont metoprolol 7: Hyperlipidemia A/P: cont statin 8: Acute kidney injury A/P: monitor closely on lasix avoid nephrotoxins 9: Anxiety disorder, unspecified A/P: Continue Lexapro 10: Tobacco abuse A/P: advised cessation patient states he has quit 11: On deep vein thrombosis (DVT) prophylaxis A/P: on eliquis 12: Full code status -- SUBJECTIVE -- CHIEF COMPLAINT: shortness of breath PATIENT NARRATIVE: Oxygenating 96% on room air at rest -- EXAM -- VITALS (01/28 10:04 - 01/29 10:04): Pulse Rate: 80 (80 - 97) Blood pressure: 123/69 (119/66 - 154/96) Respiratory rate: 16 (16 - 20) Temperature F: 98.0 (98.0 - 98.3) Temperature C: 36.7 (36.5 - 36.7) Temperature source: Oral IOS (01/28 07:00-01/29 07:00): Net-1,100 Output1,100 Number of continent voids:2 Void ml:1,100 EXAM: General Well developed, well nourished, in no apparent distress. Head Normocephalic, atraumatic. Eyes conjunctiva and sclera clear, without nystagmus, lids normal Ears grossly normal hearing Nose No deformity Mouth normal mucosa Neck Supple Chest Grossly normal appearance. Lungs Clear bilaterally with normal respiratory effort. Heart Regular rate and rhythm, normal S1, S2, no murmurs Abdomen Soft, non-tender. Musculoskeletal No deformity, no scoliosis noted of thoracic or lumbar spine, joint ROM grossly normal, normal gait and station. Extremities 1+ edema in BLEs. Neurological No focal deficits, cranial nerves II-XII grossly intact, normal sensation, normal reflexes, normal coordination, normal muscle strength, normal tone. Pulses Pulses normal in all extremities. Skin Intact without significant lesions, or rashes. Lymph Nodes No significant cervical node adenopathy. Psychiatric Alert and oriented to time, person, place. Normal mood and affect, intact judgment and insight. -- DATA -- MEDICATIONS FOLIC ACID 1 MG PO DAILY AMIODARONE HCL 200 MG PO BID METOPROLOL SUCCINATE 12.5 MG PO Q12HR ATORVASTATIN CALCIUM 80 MG PO BEDTIME FUROSEMIDE 40 MG IV BID@0700,1500 TICAGRELOR 90 MG PO Q12HR cefTRIAXone with/in WATER FOR INJECTION,STERILE 1000 MG IV DAILY ALPRAZolam 0.25 MG PO BID PRN CITALOPRAM 40 MG PO DAILY LAB RESULTS MAG (01/30/24 04:42) MAGNESIUM 2.0 PHOS (01/30/24 04:42) PHOSPHOROUS 2.6 CBC W/AUTO DIFF (01/30/24 04:42) MONOCYTE # 0.89 H NEUTROPHIL % 81.6 H EOSINOPHIL # 0.24 IMMATURE GRANULOCYTE % 0.6 BASOPHIL # 0.05 LYMPHOCYTE % 7.3 L NUCLEATED RBC # 0.000 MONOCYTE % 8.0 EOSINOPHIL % 2.1 BASOPHIL % 0.4 NUCLEATED RBC % 0.0 NEUTROPHIL # 9.12 H IMMATURE GRANULOCYTE # 0.070 WHITE BLOOD CELL 11.2H H RED BLOOD CELL 4.64 HEMOGLOBIN 14.7 HEMATOCRIT 43.1 MEAN CELL VOLUME 93 D MEAN CELL HGB 31.7 MEAN CELL HGB CONCENTRATION 34.1 RED CELL DISTRIBUTION WIDTH 17.3 H PLATELET COUNT 144L L LYMPHOCYTE # 0.82 L MEAN PLATELET VOLUME 9.9 BASIC METABOLIC PANEL (01/30/24 04:42) BUN/CREATININE RATIO 15.5 CALCIUM 9.9 SODIUM 135L L POTASSIUM 3.8 CHLORIDE 97L L CARBON DIOXIDE 29 ANION GAP 12.2 GLUCOSE 104 BLOOD UREA NITROGEN 17 GLOMERULAR FILTRATION RATE >=60 max estimate CREATININE 1.1 at 1005 ATTENTION *EDITS and/or ADDENDA must be made in Patient Keeper for this note. * * Edits and ammendments created in [employer] are not visible * * in Patient Keeper or the legal medical record (HPF). * RPT #: [id number] END OF REPORT [facility] 2024-01-29 14:40:00 [facility] ([facility]) Cardiology Consultation REPORT #: [id number] REPORT STATUS: Signed DATE: 01/29/24 TIME: 1440 PATIENT: MONTES,KOTA OHARA UNIT #: [id number] ROOM #: NC.ERIMCBED: 18 : 61 AGE: 63 SEX: M ATTEND: Pete Vang MD ADM AUTHOR: Mariam Charlton MD ATTENTION *EDITS and/or ADDENDA must be made in Patient Keeper for this note. * * Edits and ammendments created in [employer] are not visible * * in Patient Keeper or the legal medical record (HPF). * Note Date: 01/29/24 14:40 -- ASSESSMENT/PLAN -- GENERAL ASSESSMENT: Problem List: Acute Hypoxic Respiratory Failure Acute CHF Exacerbation Acute Flash Pulmonary Edema Elevated BNP Lactic Acidosis SAMMIE HTN Hyponatremia Anxiety HLD CAD w/ PCI CABG x2 h/o ETOH abuse tobacco abuse A/P: #Acute decompensated heart failure - EF 25-29% - NYHA III - Etiology ischemic for HFrEF - Volume overloaded on exam with edema and + JVD on presentation with flash pulmonary edema necessitating bipap - BNP elevated - EKG with /ASSOCIATE SOFTWARE ENGINEER tachycardia (sinus) - TTE LVEF 25-30%, previously 30-35% (09/2023); severe global hypokinesis of the left ventricle. - LHC: s/p PCI 2005, 06/2022, 12/24/2022, 12/24/2022, 07/27/23 - CABG x 2V 06/13/23 Plan: Acute managment: - IV Diuresis: lasix 40mg IV BID - strict I/Os - maintain negative fluid balance, goal negative 2 L/day - 2 gm Na diet, 1500 mL fluid restriction - daily weights - Monitor clinically as may require IABP/MCS if further deteriorates - AICD/ ASSOCIATE SOFTWARE ENGINEER in place 01/02/24 #Afib s/p AICD and paced rhythm now #LBBB with QRS 160ms - s/p ASSOCIATE SOFTWARE ENGINEER-D placement - Cont DOAC - Cont amio 200mg BID - Cont Toprol XL 12.5mg BID - Will have OP ablation with Dr. Parker #CAD - No further DAPT, now on eliquis and brilinta - CE negative at this time - Statin -- HISTORY -- REASON FOR CONSULT: CHF exacerbation HPI: 63-year-old male with history of CAD s/p CABG and ischemic cardiomyopathy s/p ICD placement presented to the emergency room with sudden onset of shortness of breath. He was just discharged from [facility] 3 weeks ago after requiring hospitalization with intubation secondary to decompensated congestive heart failure. In the emergency room, BNP was elevated (348), lactic acid was elevated (2.7), and chest x-ray showed cardiomegaly with interstitial pulmonary edema. Patient was hypoxic and required BiPAP in the emergency room. Overnight he was diuresed and weaned to 4 L nasal cannula PAST MEDICAL HISTORY/PAST SURGICAL HISTORY: PAST MEDICAL HISTORY: - Acute blood loss anemia - Acute CHF - Acute decompensated heart failure - Acute kidney failure, unspecified - Acute kidney injury - Acute on chronic systolic (congestive) heart failure - Acute posthemorrhagic anemia - Acute respiratory failure with hypercapnia - Acute respiratory failure with hypoxia - Acute respiratory failure with hypoxia and hypercapnia - Anemia - Atherosclerotic heart disease of [place] coronary artery without angina pectoris - Atrial fibrillation with RVR - Cardiogenic shock - Flash pulmonary edema - Hyperlipidemia - Hypertension - Hypertensive heart disease with heart failure - Left bundle-branch block, unspecified - Presence of aortocoronary bypass graft - Presence of automatic (implantable) cardiac defibrillator - Rheumatic disorders of both mitral and aortic valves - Systolic dysfunction with acute on chronic heart failure - Unspecified atrial fibrillation PAST MEDICAL HISTORY: CAD s/p 2v CAB (06/25) and PCI (, 06/24, 12/24, 07/25) Ischemic cardiomyopathy (EF 25-29%) HTN HLD h/o ETOH abuse tobacco abuse anxiety/depression medical non-compliance PAST SURGICAL HISTORY: CABG x2v (June) ICD placement IMMUNIZATION STATUS: None FAMILY HISTORY: HTN DM Social History Tobacco use: PACK/DAY 1 YEARS USED 47 DETAILS/COMMENTS: former Vaping/Inhaled solvents: DETAILS/COMMENTS: Currently vapes Alcohol use: DETAILS/COMMENTS: former Drug use: DETAILS/COMMENTS: Denies recent hx MARITAL STATUS: 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 with -- SUBJECTIVE -- REVIEW OF SYSTEMS: Comment: 14 point ROS reviewed, negative unless stated in HPI -- EXAM -- EXAM: Other: GENERAL: No acute distress, non-toxic appearing. HEAD: Normal with no signs of head trauma or bruising EYES: Conjunctiva normal, no discharge. ENT: Hearing grossly intact, normal oropharynx. NECK: Supple, no tenderness, no lymphadenopathy, no masses. No flow murmurs/bruits in carotid territory. + JVD LUNGS: Clear breath sounds bilaterally. No wheezes, rales, or rhonchi. HEART: Regular rate and rhythm. Normal S1 and S2, without murmurs, rub, or gallop. VASC: Peripheral pulses normal and equal in all extremities. Extremities are warm to touch and sensation is intact ABD: Bowel sounds normal, soft, nontender, no masses, no organomegaly. : Normal. LYMPH: No lymphadenopathy noted. EXT: No joint swelling, no clubbing, no cyanosis. +edema SKIN: No rashes or lesions. No bruising noted NEURO: Moving all extremities without focal deficits. at 1449 ATTENTION *EDITS and/or ADDENDA must be made in Patient Keeper for this note. * * Edits and ammendments created in [employer] are not visible * * in Patient Keeper or the legal medical record (HPF). * [facility] #: [id number] END OF REPORT [facility] 2024-01-29 11:16:00 [facility] ([facility]) Med Order Sheet REPORT #: [id number] REPORT STATUS: Signed DATE: 01/29/24 TIME: 1116 PATIENT: KOTA MONTES UNIT #: [id number] ROOM #: OH.ERIMCBED: 18 : 61 AGE: 63 SEX: M ATTEND: Pete Vang MD ADM AUTHOR: Pete Vang MD ATTENTION *EDITS and/or ADDENDA must be made in Patient Keeper for this note. * * Edits and ammendments created in [facility] are not visible * * in Patient Keeper or the legal medical record (HPF). * Admission Medication Reconciliation -- CONTINUED / CHANGED HOME MEDICATIONS -- Home: Amiodarone Tab (Cordarone Tab) 200 MG PO BID Hosp: Amiodarone Tab (Cordarone Tab) 200 MG PO Now and then BID Home: Atorvastatin Tab (Lipitor Tab) 80 MG PO BEDTIME Hosp: Atorvastatin Tab (Lipitor Tab) 80 MG PO BEDTIME Home: Folic Acid Tab (Folvite Tab) 1 MG PO DAILY Hosp: Folic Acid Tab (Folvite Tab) 1 MG PO Now and then DAILY Home: Lexapro tab (escitalopram oxalate) 20 MG PO DAILY Hosp: Lexapro tab (escitalopram oxalate) 20 MG PO Now and then DAILY Home: Metoprolol Tartrate Tab (Lopressor Tab) 25 MG PO BID Hosp: Metoprolol Succinate XL Tab (Toprol XL Tab) 12.5 MG PO Now and then Q12HR - Hold for SBP < 100 or HR < 60 Home: Ticagrelor Tab (Brilinta Tab) 90 MG PO Q12HR Hosp: Ticagrelor Tab (Brilinta Tab) 90 MG PO Now and then Q12HR -- STOPPED HOME MEDICATIONS -- Home: Celecoxib Cap (CeleBREX Cap) 200 MG PO DAILY Home: Methocarbamol Tab (Robaxin Tab) 750 MG PO TID Home: Metoprolol Succinate XL Tab (Toprol XL Tab) 25 MG PO DAILY Home: Potassium Chlor Tab.ER (K Dur Tab) 20 MEQ PO DAILY at 1116 ATTENTION *EDITS and/or ADDENDA must be made in Patient Keeper for this note. * * Edits and ammendments created in [employer] are not visible * * in Patient Keeper or the legal medical record (HPF). * [facility] #: [id number] END OF REPORT [facility] 2024-01-29 09:18:00 [facility] ([facility]) [facility] REPORT #: [id number] REPORT STATUS: Signed DATE: 01/29/24 TIME: 917 PATIENT: KOTA MONTES UNIT #: [id number] ROOM #: NC.ERIMCBED: 18 : 61 AGE: 63 SEX: M ATTEND: Pete Vang MD ADM AUTHOR: Pete Vang MD ATTENTION *EDITS and/or ADDENDA must be made in Patient Keeper for this note. * * Edits and ammendments created in [employer] are not visible * * in Patient Keeper or the legal medical record (HPF). * Note Date: 01/29/24 09:18 -- HISTORY -- ADMISSION DATE 01/28/2024 Primary care provider:Jong Pollack MD CHIEF COMPLAINT: shortness of breath HPI: 63-year-old male with history of CAD s/p CABG and ischemic cardiomyopathy s/p ICD placement presented to the emergency room with sudden onset of shortness of breath. He was just discharged from [facility] 3 weeks ago after requiring hospitalization with intubation secondary to decompensated congestive heart failure. In the emergency room, BNP was elevated (348), lactic acid was elevated (2.7), and chest x-ray showed cardiomegaly with interstitial pulmonary edema. Patient was hypoxic and required BiPAP in the emergency room. Overnight he was diuresed and weaned to 4 L nasal cannula. PAST MEDICAL / SURGICAL HISTORY: PAST MEDICAL HISTORY: - Acute blood loss anemia - Acute CHF - Acute decompensated heart failure - Acute kidney failure, unspecified - Acute kidney injury - Acute on chronic systolic (congestive) heart failure - Acute posthemorrhagic anemia - Acute respiratory failure with hypercapnia - Acute respiratory failure with hypoxia - Acute respiratory failure with hypoxia and hypercapnia - Anemia - Atherosclerotic heart disease of [place] coronary artery without angina pectoris - Atrial fibrillation with RVR - Cardiogenic shock - Flash pulmonary edema - Hyperlipidemia - Hypertension - Hypertensive heart disease with heart failure - Left bundle-branch block, unspecified - Presence of aortocoronary bypass graft - Presence of automatic (implantable) cardiac defibrillator - Rheumatic disorders of both mitral and aortic valves - Systolic dysfunction with acute on chronic heart failure - Unspecified atrial fibrillation PAST MEDICAL HISTORY: CAD s/p 2v CAB (06/25) and PCI (, 06/24, 12/24, 07/25) Ischemic cardiomyopathy (EF 25-29%) HTN HLD h/o ETOH abuse tobacco abuse anxiety/depression medical non-compliance PAST SURGICAL HISTORY: CABG x2v (June) ICD placement IMMUNIZATION STATUS: None FAMILY HISTORY: HTN DM Social History Tobacco use: PACK/DAY 1 YEARS USED 47 DETAILS/COMMENTS: former Vaping/Inhaled solvents: DETAILS/COMMENTS: Currently vapes Alcohol use: DETAILS/COMMENTS: former Drug use: DETAILS/COMMENTS: Denies recent hx MARITAL STATUS: 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 with -- SUBJECTIVE -- REVIEW OF SYSTEMS: General: Negative for fever, malaise, fatigue. Eyes: Negative for blurry vision. No diplopia. Ears/Nose/Throat: Negative for sore throat. No otalgia. No rhinorrhea. Respiratory: Positive for dyspnea and cough. Cardiovascular: Negative for chest pain or palpitations. Positive for extremity swelling. Gastrointestinal: Negative for abdominal pain or nausea. No emesis. No diarrhea. Genitourinary: Negative for dysuria, frequency, or urgency. No gross hematuria. Musculoskeletal: Negative for joint stiffness, pain, or arthralgias. Skin: Negative for rashes. No pruritus. Neurological: Negative for headache. No vertigo. Denies paresthesias. Psychiatric: Negative for specific complaints. Endocrine: Negative for cold intolerance, heat intolerance, polyphagia, polydipsia, polyuria, weight change, fatigue. Hematalogic / Lymphoreticular: Negative for excessive bleeding, unusual masses. -- EXAM -- EXAM: General: Well developed, well nourished, in no apparent distress. Head: Normocephalic, atraumatic. Eyes: conjunctiva and sclera clear, without nystagmus, lids normal Ears: grossly normal hearing Nose: No deformity Mouth: normal mucosa Neck: Supple Chest: Grossly normal appearance. Lungs: Clear bilaterally with normal respiratory effort. Heart: Regular rate and rhythm, normal S1, S2, no murmurs Abdomen: Soft, non-tender. Musculoskeletal: No deformity, no scoliosis noted of thoracic or lumbar spine, joint ROM grossly normal, normal gait and station. Extremities: 1+ edema in BLEs. Neurological: No focal deficits, cranial nerves II-XII grossly intact, normal sensation, normal reflexes, normal coordination, normal muscle strength, normal tone. Pulses: Pulses normal in all extremities. Skin: Intact without significant lesions, or rashes. Lymph Nodes: No significant cervical node adenopathy. Psychiatric: Alert and oriented to time, person, place. Normal mood and affect, intact judgment and insight. -- ASSESSMENT/PLAN -- A/P: 1: Acute on chronic systolic (congestive) heart failure A/P: With flash pulmonary edema; BNP = 348 diurese with lasix IV LVEF = 25-29% (01/01/2024) r/o NM with serial enzymes TFTs monitor on tele low sodium diet fluid restriction 2: Acute hypoxic respiratory failure A/P: Secondary to above Currently on 3L nasal cannula Wean as tolerated 3: CAD (coronary artery disease) A/P: Continue statin, Brilinta, BB, and Eliquis 4: Unspecified atrial fibrillation A/P: Continue amiodarone Continue Eliquis for CVA prophylaxis 5: Hyponatremia A/P: Secondary to volume overload 6: Hypertension A/P: cont metoprolol 7: Hyperlipidemia A/P: cont statin 8: Acute kidney injury A/P: monitor closely on lasix avoid nephrotoxins 9: Anxiety disorder, unspecified A/P: Continue Lexapro 10: Tobacco abuse A/P: advised cessation patient states he has quit 11: On deep vein thrombosis (DVT) prophylaxis A/P: on eliquis 12: Full code status at 1053 ATTENTION *EDITS and/or ADDENDA must be made in Patient Keeper for this note. * * Edits and ammendments created in [employer] are not visible * * in Patient Keeper or the legal medical record (HPF). * [facility] #: [id number] END OF REPORT [facility] 2024-01-29 06:54:00 [facility] ([facility]) Intensive Care Consultation REPORT #: [id number] REPORT STATUS: Signed DATE: 01/29/24 TIME: 0654 PATIENT: KOTA MONTES UNIT #: [id number] ROOM #: OH.ERIMCBED: 18 : 61 AGE: 63 SEX: M ATTEND: Pete Vang MD ADM AUTHOR: Shakir Lozada APRN ATTENTION *EDITS and/or ADDENDA must be made in Patient Keeper for this note. * * Edits and ammendments created in [employer] are not visible * * in Patient Keeper or the legal medical record ([facility]). * Attending: Choco Mcmahon MD 01/29/24 10:41 Agree with the findings and plan as documented by ACNP. Patient was discussed at length. Patient's clinical data was personally reviewed by me and discussed with ACNP. Assessment and orders reviewed at length. Clinical data reviewed at length Shortness of breath improved, off BPAP now NC O2 4 L/min Feeling better Diuresis ongoing Cardiology consulted, follow-up plan and recommendations Repeat imaging based on further clinical course Agree with admission to [facility] for now Pulmonary will continue to follow closely. Note Date: 01/29/24 06:54 -- ASSESSMENT AND PLAN -- GENERAL ASSESSMENT: [facility] Critical Care Note Assessment Acute Hypoxic Respiratory Failure Acute on chronic HFrEF Exacerbation Acute Flash Pulmonary Edema Lactic Acidosis Hyponatremia HTN HLD CAD SAMMIE, mild Anxiety Tobacco use Neuro- - Neuro checks CV- - Monitor HR/BP - Trend Tnl, 16 - BNP 348 - Start BID Lasix, further diuresis per cardiology - TTE 12/31 with EF 25-29% and severe global hypokinesis - Hx of AFib on home Eliquis - s/p AICD 01/01 @ [facility] - noted healing dehiscence w/ scab - Resume home regimen pending medication reconciliation - Cardiology consulted in ED Pulm- - Placed to Bipap in ED for Respiratory distress/WOB - Now weaned to 4L NC; supplemental O2 to keep sats > 92% - CXR: Cardiomegaly with interstitial pulmonary edema, worse on the right. - Given lasix in ED x 1 GI- - ADAT Renal- - BMP reviewed - Replace electrolytes as indicated - Monitor UOP - Avoid nephrotoxins - sCr on presentation 1.6, monitor for increasing indices on lasix ID- - Trend WBC, fever curve - Follow cultures - Trend lactic, 2.7 - Empiric Rocephin Heme- - CBC reviewed - No overt bleeding - Trend Hgb, platelets Endo- - Accuchecks - Monitor for hypoglycemia Dispo: ICU Code Status: Full VTe ppx: SCD. On home Eliquis GI ppx: Not indicated --------- HPI: Mr. Montes is a 63 yo male with pmx of HTN, HLD, CAD, CHF, CABG 06/25, AICD 01/01 who presented to ED with sudden onset of SOB last night. Denies any recent fever/chills, CP, sob, n/v/d. Recent complicated course of admission last month for decompensated CHF with intubation at this facility in which he was ultimately transferred to [facility] for further heart failure management; received AICD 01/01 and discharged first week of this current month. Diagnostics in ED concerning for BNP 348, lactic 2.7, and CXR w/ cardiomegaly and interstitial pulmonary edema. Initially placed to bipap for respiratory distress, WOB, and hypoxia w/ sats down to 50s. Upon my assessment in ED patient had been diuresed w/ Lasix x 1, was weaned off of bipap to 4L NC, and was in no distress. Admitted for further work up. Thank you for this consultation. We will follow with you. Please call for any concerns. Past medical history: HTN, HLD, CAD, CHF PSurgHx: CABG in June 2023, PCI with stent , Multiple intubations FamHx: nc SocHx: ETOH quit June 2023, Ex smoker 2pk/40 yrs, Currently vapes Review of systems: Limited, as per HPI Physical Exam General: NAD Eyes: Anicteric sclerae. Mouth: MMM Neck: Supple. CV: Paced. Normal S1 and S2. Pulm: Good effort, diminished Abdomen: Soft, nontender.BS+ Extremities: Trace lower extremity edema. Skin: Warm, dry. Neuro: Awake, no gross deficits Psych: Restless, anxious I have personally provided 32 minutes of critical care time. Time includes review of laboratory data, radiology results, discussion with consultants, family and staff and monitoring for potential decompensation. Interventions were performed as documented above. This is exclusive of time spent on separately billable procedures. -- HISTORY -- PAST MEDICAL HISTORY/PAST SURGICAL HISTORY: PAST MEDICAL HISTORY: - Acute blood loss anemia - Acute CHF - Acute decompensated heart failure - Acute kidney failure, unspecified - Acute kidney injury - Acute on chronic systolic (congestive) heart failure - Acute posthemorrhagic anemia - Acute respiratory failure with hypercapnia - Acute respiratory failure with hypoxia - Acute respiratory failure with hypoxia and hypercapnia - Anemia - Atherosclerotic heart disease of [place] coronary artery without angina pectoris - Atrial fibrillation with RVR - Cardiogenic shock - Flash pulmonary edema - Hyperlipidemia - Hypertension - Hypertensive heart disease with heart failure - Left bundle-branch block, unspecified - Presence of aortocoronary bypass graft - Presence of automatic (implantable) cardiac defibrillator - Rheumatic disorders of both mitral and aortic valves - Systolic dysfunction with acute on chronic heart failure - Unspecified atrial fibrillation PAST MEDICAL HISTORY: CAD s/p 2V CAB (06/25) and PCI (, 06/24, 12/24, 07/25), ischemic cardiomyopathy (EF 25-29%), HTN, HLD, h/o ETOH abuse, tobacco abuse, anxiety/depression, and medical non-compliance PAST SURGICAL HISTORY: ICD, CAB, PCI IMMUNIZATION STATUS: None FAMILY HISTORY: HTN DM Social History Tobacco Use PACK/DAY 1 YEARS USED 47 DETAILS/COMMENTS: history of Vaping/Inhaled Solvents DETAILS/COMMENTS: Currently vapes Alcohol Use DETAILS/COMMENTS: history of Drug Use DETAILS/COMMENTS: Denies recent hx MARITAL STATUS: 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 with -- EXAM -- VITALS (01/27 06:54 - 01/28 06:54): Blood pressure: 117/67 (110/61 - 177/91) Respiratory rate: 19 (16 - 37) Blood pressure source: Monitor Temperature F: 97.5 Pulse Rate: 80 (78 - 113) Temperature source: Oral -- DATA -- MEDICATIONS ONDANSETRON 4 MG PO Q4H PRN morphine SULFATE 4 MG IV Q4H PRN NITROGLYCERIN/D5W 50 MG IV X1ED FUROSEMIDE 40 MG IV BID@0700,1500 HYDROcodone BITARTRATE/APAP 1 TAB PO Q4H PRN ACETAMINOPHEN 650 MG PO Q4H PRN LAB RESULTS UA RFLX MICR amp;CULT IF INDICATED (01/29/24 00:20) UA NITRITE DIPSTICK NEGATIVE UA LEUKOCYTE ESTERASE DIPSTICK NEGATIVE UA WBC 0-2 UA RBC NONE SEEN UA BACTERIA NONE SEEN UA SQUAMOUS CELLS None seen UA COLOR YELLOW UA APPEARANCE CLEAR UA GLUCOSE DIPSTICK NEGATIVE UA BILIRUBIN DIPSTICK NEGATIVE UA KETONE DIPSTICK NEGATIVE UA SPECIFIC GRAVITY 1.014 UA BLOOD DIPSTICK NEGATIVE UA PH DIPSTICK 5 UA PROTEIN DIPSTICK NEGATIVE UA UROBILINOGEN DIPSTICK NEGATIVE at 1041 at 1041 ATTENTION *EDITS and/or ADDENDA must be made in Patient Keeper for this note. * * Edits and ammendments created in [facility] are not visible * * in Patient Keeper or the legal medical record (HPF). * [facility] #: [id number] END OF REPORT [facility] 2024-01-28 22:17:00 [facility] ([facility]) EMERGENCY PROVIDER REPORT REPORT#:[id number] REPORT STATUS: Signed DATE:01/28/24 TIME: 2216 PATIENT: KOTA MONTES UNIT #: [id number] ROOM: OH.ERIMBED: 2 : 61 AGE: 63 SEX: M PCP PHYS: Jong Pollack MD SERVICE AUTHOR: Quentin Bullock MD REP SRV REP SRV TM: 2217 * ALL edits or amendments must be made on the electronic/computer document * HPI-Dyspnea/Wheezing General Confirmed Patient Yes Initial Greet Date/Time 01/28/24 192 Presentation Chief Complaint Shortness of breath Hx Obtained From Patient, EMS )( Sudden in Onset? No Free Text HPI Notes Free Text HPI Notes 63-year-old male, past medical history of CHF, AICD recently placed, CABG, hypertension, dyslipidemia, anemia. Patient is here with sudden onset of shortness of breath without chest pain. Extremely hypoxic on EMS arrival with a pulse ox in the 50%. No other cardiopulmonary symptoms, no GI or symptoms, no fever Status post high-dose nitroglycerin boluses, CPAP External records reviewed by me: prior inpatient hospitalist notes. Information about patient's comorbidities and daily medications learned (as at least in part detailed above), which factored into medical decision making for today's visit. If present internal ER notes also reviewed Additional history from EMS provider(s) in order to obtain history of prehospital course and augment patient/guardian history. Past Medical History - Adult Stated Complaint ON CPAP Allergies Coded Allergies: No Known Allergies (12/31/23) Home Medications Active Scripts Folic Acid 1 MG PO DAILY Folic Acid 1 MG PO DAILY #90 PACK Prov: 01/07/24 Amiodarone (Pacerone) 400 MG PO Q12HR Amiodarone (Pacerone) 400 MG PO Q12HR #120 TAB Prov: 01/07/24 Thiamine (Vitamin B-1) 100 MG PO DAILY Thiamine (Vitamin B-1) 100 MG PO DAILY #90 TAB Prov: 01/07/24 Escitalopram (Lexapro) 20 MG PO DAILY Escitalopram (Lexapro) 20 MG PO DAILY #90 TAB Prov: 01/07/24 Hydrocodone/Acetaminophen (HYDROcodone/APAP 5/325) 1 TAB PO Q6H PRN pain scale 4 -6 (use 1st) 3 Days #12 TAB Prov: 01/07/24 Apixaban (Eliquis) 5 MG PO BID Apixaban (Eliquis) 5 MG PO BID #60 TAB Prov: 01/07/24 Atorvastatin (Lipitor) 80 MG PO BEDTIME Atorvastatin (Lipitor) 80 MG PO BEDTIME #90 TAB Prov: 01/07/24 methocarbamoL (Robaxin) 750 MG PO TID methocarbamoL (Robaxin) 750 MG PO TID #90 TAB Prov: 01/07/24 Pregabalin (Lyrica) 50 MG PO BID Pregabalin (Lyrica) 50 MG PO BID #90 CAP Prov: 01/07/24 Metoprolol Tartrate (Lopressor) 12.5 MG PO Q12HR Metoprolol Tartrate (Lopressor) 12.5 MG PO Q12HR #90 TAB Prov: 01/07/24 Reported Medications Escitalopram (Lexapro) 20 MG PO DAILY Ticagrelor (Brilinta) 90 MG PO Q12HR Potassium Chloride Er (Klor-Con M20) 20 MEQ PO DAILY Celecoxib (Celebrex) 200 MG PO DAILY Amiodarone (Pacerone) 200 MG PO BID Calculated Suicide Risk (nurs) No risk Review of Nursing Notes Rev avail, and agree Past Medical History: Reports: Coronary artery disease, Hypertension, Dyslipidemia. Additional Medical History History of [place] Past Surgical History: Reports: CABG. Additional Surgical History Cardiac stents, right hip hardware Alcohol Use Alcohol use Drug Use Denies recreational drugs Smoking status for patients 13 years old or older: Unknown,if ever smoked Physical Exam Vital Signs Vital Signs First Documented: Result Date Time Pulse Ox 100 01/28 1928 Pulse 113 01/28 1928 Resp 37 01/28 1928 FiO2 100 01/28 1928 O2 Delivery Ventilator 01/28 1928 B/P 160/91 01/27 1930 B/P Mean 117 01/27 1930 Temp 36.4 01/27 1953 Last Documented: Result Date Time Pulse Ox 100 01/27 2215 Pulse 108 01/27 2215 Resp 25 01/27 2215 B/P 138/88 01/27 2200 B/P Mean 108 01/27 2200 O2 Delivery BiPAP 01/27 2002 Temp 36.4 01/27 1953 FiO2 100 01/28 1928 Review of Vital Signs Reviewed Free Text PE Notes Free Text PE Notes Pulmonary: Diffuse crackles, severe respiratory distress Cardiac: normal S1/S2, skin well perfused, no obvious DVT except for bilateral pedal edema, 2+ pulses in all 4 extremities General: awake and alert, not toxic appearing but patient is ill-appearing Head: normocephalic, no acute traumatic abnormalities Abdomen: soft, NTND Neuro: no gross acute focal abnormalities Extremities: no acute deformities, appropriate ROM Skin: no acute appearing rashes, well perfused Interpretation Diagnostics Lab Results Interpretation Results Laboratory Tests 01/28/241939: [Embedded Image Not Available] Laboratory Tests: 01/27 Chemistry Sodium (136 - 145 mmol/L) 131 L Potassium (3.5 - 5.1 mmol/L) 4.0 Chloride (98 - 107 mmol/L) 98 Carbon Dioxide (20 - 31 mmol/L) 24 Anion Gap (2.0 - 16.0) 13.1 BUN (9 - 23 mg/dL) 23 Creatinine (0.7 - 1.3 mg/dL) 1.6 H Glomerular Filtr Rate (ml/min) 48 L BUN/Creatinine Ratio (12.0 - 20.0) 14.4 Glucose (74 - 106 mg/dL) 191 H Lactic Acid (0.5 - 2.2 mmol/L) 2.7 H Calcium (8.7 - 10.4 mg/dL) 9.4 Magnesium (1.6 - 2.6 mg/dL) 2.1 Total Bilirubin (0.2 - 1.1 mg/dL) 0.4 Direct Bilirubin (0.0 - 0.3 mg/dL) 0.2 Indirect Bilirubin (0.0 - 0.8 mg/dL) 0.2 AST (<34 U/L) 27 ALT (10 - 49 U/L) 18 Total Alk Phosphatase (46 - 116 U/L) 147 H Troponin I High Sens (0 - 78 pg/mL) 16 B-Natriuretic Peptide (0 - 100 pg/mL) 348 H Total Protein (5.7 - 8.2 g/dL) 7.7 Albumin (3.4 - 5.0 g/dL) 4.4 Globulin (2.3 - 3.5 g/dL) 3.3 Coagulation INR (0.8 - 1.1 RATIO) 1.2 H APTT (25.1 - 36.5 SECONDS) 34.0 PT Patient/Control Mix (9.4 - 12.5 SECONDS) 13.8 H Hematology WBC (4.5 - 11.0 10 3/uL) 8.4 RBC (4.30 - 5.90 10 6/uL) 4.57 Hgb (14.0 - 18.0 g/dL) 14.3 Hct (40.0 - 55.0 %) 44.5 MCV (81 - 102 fL) 97 MCH (26.0 - 34.0 pg) 31.3 MCHC (31.0 - 37.0 g/dL) 32.1 RDW (11.6 - 14.4 %) 17.2 H Plt Count (150 - 400 10 3/uL) 183 MPV (9.0 - 12.6 fL) 9.3 Neut % (Auto) (33.0 - 76.0 %) 63.7 Lymph % (Auto) (14.0 - 56.4 %) 28.4 Williams % (Auto) (0.0 - 12.9 %) 4.8 Eos % (Auto) (0.0 - 7.0 %) 1.8 Baso % (Auto) (0 - 2.0 %) 0.5 Neut # (Auto) (1.5 - 7.0 10 3/uL) 5.33 Lymph # (Auto) (1.50 - 4.00 10 3/uL) 2.38 Williams # (Auto) (0.20 - 0.80 10 3/uL) 0.40 Eos # (Auto) (0.0 - 0.5 10 3/uL) 0.15 Baso # (Auto) (0.0 - 0.1 10 3/uL) 0.04 Abs Immat Gran (auto) (0.000 - 0.100 x10 3/uL) 0.070 Immature Gran % (0.0 - 1.0 %) 0.8 Nucleated RBC % (0 - 0.2 %) 0.0 Nucleated RBCs # (0.000 - 0.012 10 3/uL) 0.000 01/27 1957 Blood Gas VBG pH (7.33 - 7.45) 7.235 L VBG pCO2 (35 - 45 mm Hg) 46.9 H VBG pO2 (80 - 90 mmHg) 34.8 *L VBG HCO3 (22 - 24 mmol/L) 19.9 L VBG O2 Saturation (60 - 80 %) 56.2 L VBG Base Excess (-2 - 4 mmol/L) -7.7 L Microbiology: Date/Time Procedure - Status Source Growth 01/28 1940 Blood Culture - RECD Blood 01/28 1940 Blood Culture - RECD Blood Recent Impressions: RADIOLOGY - XR CHEST 1 V 01/28 2000 Report Impression - Status: SIGNED Entered: 01/28/20242044 IMPRESSION: Cardiomegaly with interstitial pulmonary edema, worse on the right. Impression By: [email or web address] - Yoshi Melendez MD ECG #1 Interpretation Text/Dict Note EKG independently reviewed and interpreted by me and performed on January 28, 2024, at 7:26 PM. Atrially sensed and ventricularly paced at a rate of 117, no STEMI, adequate tracing, prolonged QTc nonspecific ST/T wave abnormality. Re-Evaluation MDM )( Re-Evaluation/Progress #1 Text/Dict Note Patient failed trial off BiPAP. But doing well on BiPAP. Never needed nitroglycerin drip Time of Re-Eval 2217 )( Re-Eval Status Improved ED Course Medication(s) Ordered Medication(s) Ordered: Anti-Infective Agents Sig/Alfonzo Start time Last Medication Dose Route Stop Time Status Admin Ceftriaxone Sodium 1,000 MG X1ED STA 01/27 1929 DC 01/27 Sterile Water 10 ML IV 01/27 193 1940 Cardiovascular Drugs Sig/Alfonzo Start time Last Medication Dose Route Stop Time Status Admin Nitroglycerin/ 250 ML X1ED STA 01/27 192 AC Dextrose IV 02/07 0528 Central Nervous System Agents Sig/Alfonzo Start time Last Medication Dose Route Stop Time Status Admin Acetaminophen 650 MG Q4H PRN PRN 01/27 2223 AC PO 01/28 1022 Hydrocodone Bitart/ 1 TAB Q4H PRN PRN 01/27 2223 AC Acetaminophen PO 01/28 1022 Morphine Sulfate 4 MG Q4H PRN PRN 01/27 2223 AC IV 01/28 1022 Electrolytic, Caloric, And Leandro Sig/Alfonzo Start time Last Medication Dose Route Stop Time Status Admin Furosemide 40 MG X1ED STA 01/27 2215 DC 01/27 IV 01/28 2216 2334 Gastrointestinal Drugs Sig/Alfonzo Start time Last Medication Dose Route Stop Time Status Admin Ondansetron Base 4 MG Q4H PRN PRN 01/27 2223 AC PO 01/28 1022 Differential Diagnosis )( Differential Diagnosis Congestive heart failure, COPD exacerbation Free Text MDM Notes Free Text MDM Notes Differential diagnosis includes but is not limited to the following diagnoses - Upper airway obstruction (instrinsic, foreign body, anaphylaxis, etc) - COPD, Asthma, obesity hypoventilation SRO - CHF/pulm edema, acute valvular dysfunction, tamponade, arrhythmia - Acute coronary syndrome, coronary dissection - Aortic dissection, pulmonary embolus - Esophageal rupture, pneumothorax, cardiac tamponade - Pleural effusion, ARDS, viral SRO, malignancy - Costochondritis, GERD, anxiety, PNA, aspiration, pericarditis - Shingles, soft tissue infection, chest wall trauma - Metabolic acidosis, anemia, sepsis, thyrotoxicosis, thyroid storm - Substance use/withdrawal, anxiety Patient here with clinical picture most consistent with CHF exacerbation with flash pulmonary edema. Status post nitroglycerin prehospital, and BiPAP use with a mild mixed metabolic and respiratory acidosis, pulmonary edema. I have very low suspicion for sepsis Status post IV Lasix here Imaging results independently reviewed and interpreted by me: none Qualified Health Professional: I discussed the case with the hospitalist. They agree with plan and admission to the IMCU. Patient Discharge Departure Vital Signs/Condition Vital Signs First Documented: Result Date Time Pulse Ox 100 01/28 1928 Pulse 113 01/28 1928 Resp 37 01/28 1928 FiO2 100 01/28 1928 O2 Delivery Ventilator 01/28 1928 B/P 160/91 01/27 1930 B/P Mean 117 01/27 1930 Temp 36.4 01/27 1953 Last Documented: Result Date Time Pulse Ox 100 01/27 2215 Pulse 108 01/27 2215 Resp 25 01/27 2215 B/P 138/88 01/27 2200 B/P Mean 108 01/27 2200 O2 Delivery BiPAP 01/27 2002 Temp 36.4 01/27 1953 FiO2 100 01/28 1928 All vital signs available at the time of this entry have been reviewed. Clinical Impression Clinical Impression Primary Impression: Respiratory distress Secondary Impressions: CHF exacerbation Disposition Decision Hospitalize Hosp Physician Name Pete Vang MD Hosp Physician Hospitalist Request Time 2220 Request Date 01/28/24 )( Accepts Hospitalization Yes )( Reason for Hospitalization CHF exacerbation )( Accepted Time 2220 )( Accepted Date 01/28/24 Call Information will see patient, agrees with eval, agrees with plan Discharge/Care Plan Counseled Regarding Diagnosis, Lab results, Imaging studies, Need for admission Critical Care Time Spent (minutes): 45 Services Performed Patient management by me, Time spent at bedside, Reviewing test results, Reviewing imaging, Discussing patient care, Documentation in record, Time with fam/surrogate Separately billable procedures excluded from time. at 0045 RPT #:[id number] END OF REPORT [facility] 2024-01-28 19:26:00 [id number] [address] PATIENT NAME: KOTA MONTES ADMIT DATE: 01/28/24 ACCOUNT NO: [id number] ROOM NO: [facility] AGE: 63 REPORT TYPE: eELECTROCARDIOGRAM SEX: M ADMITTING PHYSICIAN:Pete Vang MD ATTENDING PHYSICIAN:Pete Vang MD Order: [id number] Test Reason : SEPSIS Test Date/Time Stamp: SatJan 28 2024 19:26:35 Blood Pressure : / mmHG Vent. Rate : 117 BPM Atrial Rate : 117 BPM P-R Int : 128 ms QRS Dur : 148 ms QT Int : 388 ms P-R-T Axes : 048 119 076 degrees QTc Int : 541 ms Atrial-sensed ventricular-paced rhythm Abnormal ECG When compared with ECG of 06-JAN-2024 07:16, (Unconfirmed) Electronic ventricular pacemaker has replaced Atrial flutter Confirmed by MARIAM CHARLTON ([id number]) on 01/30/2024 9:46:57 AM Referred By: Self Referred Confirmed by:MARIAM CHARLTON at [address] [address] PATIENT NAME: KOTA MONTES [facility] 2024-01-07 11:49:00 [facility] ElectroPhys. Progress Notes REPORT #: [id number] REPORT STATUS: Signed DATE: 01/07/24 TIME: 1149 PATIENT: KOTA MONTES UNIT #: [id number] ROOM #: [facility] BED: A : 62 AGE: 63 SEX: M ATTEND: Keenan Kumari MD ADM AUTHOR: Nhan Shipman DO CF1 ATTENTION *EDITS and/or ADDENDA must be made in Patient Keeper for this note. * * Edits and ammendments created in [employer] are not visible * * in Patient Keeper or the legal medical record (HPF). * -- CO-SIGNATURE -- COMMENTS: I obtained the history and performed the physical examination in supervision of Dr. Shipman. I concur with his findings with the following additions: No further AF. Feels well. Gen: NAD, A Ox3 HEENT: anicteric sclera, MMM Neck: supple, no JVD CV: RRR, no m/r/g Lungs: CTAB Abd: soft, NTND Ext: no c/c/e Neuro: non-focal Psych: alert, appropriate, mood and affect normal Transition to PO amiodarone Eliquis 5 BID Toprol Outpatient ablation with Dr. Parker Time spent on patient care: I spent > 30 minutes on patient care, including 15 minutes spent jointly with Dr. Shipman. > 50% of time spent on counseling/coordination of care. Signed in PatientKeeper by ANNABELLE DE JESUS MD on 01/07/24 at 19:24 -- ASSESSMENT AND PLAN -- GENERAL ASSESSMENT: ICM Atrial fibrillation with RVR LBBB - s/p ASSOCIATE SOFTWARE ENGINEER-D - continue post op ppx minocycline - transition from amiodarone gtt to po amio 400 bid - metoprolol xl 12.5 - eliquis 5 bid - follow up for an ablation outpatient with Dr. Parker, discussed at bedside -- SUBJECTIVE -- CHIEF COMPLAINT: remains in sinus, vpaced. -REVIEW OF SYSTEMS- COMMENT: Negative except as per in HPI. -- OBJECTIVE -- VITALS (01/05 11:49 - 01/06 11:49): Temperature C: 36.7 (36.7 - 37.0) Pulse Rate 80 (80 - 98) Respiratory rate: 16 (12 - 21) Blood pressure: 115/64 (109/58 - 133/73) Blood pressure source: Monitor I/Os (01/05 07:00 - 01/06 07:00): Net -1,002.80 Intake 747.20 Output 1,750 -EXAM- OTHER: Gen: well-appearing Chest: no pocket hematoma CV: tachycardic, regular Lungs: normal WOB -- DATA -- MEDICATIONS PREGABALIN 50 MG PO BID HYDROcodone BITARTRATE/APAP 1 TAB PO Q6H PRN dexmedeTOMIDine in 0.9 % NaCL 400 MCG IV TITRATE MAGNESIUM SULFATE 4 G IV ASDIR (PRN) ATORVASTATIN CALCIUM 80 MG PO BEDTIME THIAMINE HCL 100 MG PO DAILY DEXTROSE 50%-WATER 25 ML IV ASDIR PRN bisacodyL 10 MG RECTAL DAILY PRN APIXABAN 5 MG PO BID MAGNESIUM SULFATE 2 GM IV ASDIR (PRN) FOLIC ACID 1 MG PO DAILY ESCITALOPRAM 20 MG PO DAILY CALCIUM GLUC IN NACL, ISO-OSM 2 GM IV ASDIR PRN DOCUSATE SODIUM 200 MG PO DAILY methocarbamoL 750 MG PO TID POTASSIUM CHLORIDE 20 MEQ PO ASDIR PRN DOXYCYCLINE MONOHYDRATE 100 MG PO Q12HR DOCUSATE SODIUM 200 MG PO 0900 (PRN) MELATONIN 6 MG PO BEDTIME SODIUM PHOSPHATE with/in SODIUM CHLORIDE 0.9% 30 MM IV ASDIR (PRN) propofoL 1000 MG IV TITRATE traZODone HCL 100 MG PO BEDTIME PRN SOD BIPHOS/POT PHOSPHATE 2 PKT PO ASDIR PRN polyethylene glycoL 3350 1 PKT PO DAILY HYDROcodone BITARTRATE/APAP 1 TAB PO Q6H PRN IPRATROPIUM/ALBUTEROL SULFATE 3 ML NEB RTQ6H AMIODARONE HCL 400 MG PO Q12HR POTASSIUM CHLORIDE IN WATER 10 MEQ IV ASDIR (PRN) ACETAMINOPHEN 650 MG PO Q6H PRN SODIUM PHOSPHATE with/in SODIUM CHLORIDE 0.9% 20 MM IV ASDIR (PRN) HALOPERIDOL LACTATE 5 MG IV Q6H PRN LORazepam 1 MG IV Q6H PRN METOPROLOL TARTRATE 12.5 MG FEED-TUBE Q12HR LABS PTT (01/07/24 08:15) THROMBOPLASTIN TIME PARTIAL 56.0 H CBC W/AUTO DIFF (01/07/24 00:08) WHITE BLOOD CELL 9.2 RED BLOOD CELL 3.64 L HEMOGLOBIN 11.0L L HEMATOCRIT 34.9L L MEAN CELL VOLUME 95.9 H MEAN CELL HGB 30.2 MEAN CELL HGB CONCENTRATION 31.5 L RED CELL DISTRIBUTION WIDTH 16.3 PLATELET COUNT 288 MEAN PLATELET VOLUME 9.9 NEUTROPHIL % 70.2 LYMPHOCYTE % 17.2 L MONOCYTE % 7.4 EOSINOPHIL % 3.7 BASOPHIL % 0.7 NEUTROPHIL # 6.43 LYMPHOCYTE # 1.58 MONOCYTE # 0.68 EOSINOPHIL # 0.34 BASOPHIL # 0.06 MAG (01/07/24 00:08) MAGNESIUM 2.1 BASIC METABOLIC PANEL (01/07/24 00:08) SODIUM 146H H POTASSIUM 3.5 CHLORIDE 109H H CARBON DIOXIDE 27 GLUCOSE 96 BLOOD UREA NITROGEN 19 GLOMERULAR FILTRATION RATE >=60 max estimate CREATININE 0.90 CALCIUM 8.2 L PTT (01/07/24 00:08) THROMBOPLASTIN TIME PARTIAL 49.3 H PTT (01/06/24 16:55) THROMBOPLASTIN TIME PARTIAL 43.2 D H Signed in PatientKeeper by Nhan Shipman on 01/07/24 at 11:51 Cosigned by ANNABELLE DE JESUS MD on 01/07/24 at 19:24 at 1924 at 1924 ATTENTION *EDITS and/or ADDENDA must be made in Patient Keeper for this note. * * Edits and ammendments created in [facility] are not visible * * in Patient Keeper or the legal medical record (HPF). * [facility] #: [id number] END OF REPORT [facility] 2024-01-07 10:14:00 [facility] ([facility]) Med Order Sheet REPORT #: [id number] REPORT STATUS: Signed DATE: 01/07/24 TIME: 1014 PATIENT: KOTA MONTES UNIT #: [id number] ROOM #: [id number] BED: A : 61 AGE: 63 SEX: M ATTEND: Keenan Kumari MD [facility] AUTHOR: Keenan Kumari MD ATTENTION *EDITS and/or ADDENDA must be made in Patient Keeper for this note. * * Edits and ammendments created in [facility] are not visible * * in Patient Keeper or the legal medical record (HPF). * Discharge Medication Reconciliation DISCHARGE MEDICATION LIST Amiodarone Tab (Cordarone Tab) Dose: 400MG PO Q12HR, Disp: 120 tablet, Refills: 0 Apixaban Tab (Eliquis Tab) Dose: 5MG PO BID, Disp: 60 tablet, Refills: 0 Atorvastatin Tab (Lipitor Tab) Dose: 80MG PO BEDTIME, Disp: 90 tablet, Refills: 0 Escitalopram Tab (Lexapro Tab) Dose: 20MG PO DAILY, Disp: 90 tablet, Refills: 0 Folic Acid Tab (Folvite Tab) Dose: 1MG PO DAILY, Disp: 90 x 1 tablet packet, Refills: 0 HYDROcodone/APAP 5/325 Tab (Corinne 5/325 Tab) Dose: 1TAB PO Q6H X 3 days PRN pain scale 4-6 (use 1st), Disp: 12 tablet, Refills: 0 Methocarbamol Tab (Robaxin Tab) Dose: 750MG PO TID, Disp: 90 tablet, Refills: 0 Metoprolol Tartrate Tab (Lopressor Tab) Dose: 12.5MG PO Q12HR, Disp: 90 tablet, Refills: 0 Pregabalin Cap (Lyrica Cap) Dose: 50MG PO BID, Disp: 90 capsule, Refills: 0 Thiamine Tab (Vitamin B-1 Tab) Dose: 100MG PO DAILY, Disp: 90 tablet, Refills: 0 STOPPED HOSPITAL MEDICATIONS Dc'd: Acetaminophen Tab (Tylenol Tab) 650MG PO Q6H PRN mild pain or temp>38.5cDc'd: Albuterol/Ipratrop Neb Soln (Duoneb Neb Soln) 3ML Neb EXA8EEr'd: Bisacodyl Supp (Dulcolax Supp) 10MG Rectal DAILY PRN constipationDc'd: Calcium gluconate 2 GM/NS 100 mL IVPB 2GM 600 MLS/HR IV ASDIR PRN ionized calcium less than 1.2Dc'd: dexmedeTOMidine Inj (Precedex Inj) 400MCG TITRATE IV Dc'd: Dextrose 50% 50 ml Syringe (D50W 50 ml Syringe) 25ML IV ASDIR PRN hypoglycemiaDc'd: Docusate Sodium Cap (Colace Cap) 200MG PO 0900 X 1 doses PRN constipationDc'd: Docusate Sodium Cap (Colace Cap) 200MG PO DAILYDc'd: Doxycycline Monohydrate Cap (Monodox Cap) 100MG PO Q12HR X 10 dosesDc'd: Haloperidol Lactate Inj (Haldol Inj) 5MG IV Q6H PRN agitationDc'd: HYDROcodone/APAP 10/325 Tab (Corinne 10/325 Tab) 1TAB PO Q6H PRN pain scale 7-10 (use 1st)Dc'd: KCl 10mEq/50mL IVPB (Potassium Chloride 10mEq/50mL IVPB) 10MEQ 50 MLS/HR IV ASDIR PRN electrolyte sliding scaleDc'd: LORazepam Inj (Ativan Inj) 1MG IV Q6H PRN agitation or anxiety (use 2nd)Dc'd: Magnesium Sulfate 2GM IVPB (Magnesium Sulfate 2GM IVPB) 2GM 25 MLS/HR IV ASDIR PRN mag level 0.9 - 1.9 mg/dlDc'd: Magnesium Sulfate 4GM IVPB (Magnesium Sulfate 4GM IVPB) 4G 25 MLS/HR IV ASDIR PRN mag level <0.9 mg/dlDc'd: Melatonin 6MG PO BEDTIMEDc'd: Polyethylene Glycol Powder (Miralax Powder) 1PKT PO DAILYDc'd: Potassium Chloride packet (K-Marylu packet) 20MEQ PO ASDIR PRN electrolyte sliding scaleDc'd: Propofol Drip (Diprivan Drip) 1000MG TITRATE IV Dc'd: Sod Biphos/Pot Phosphate Pkt (Neutra-Phos Packet) 2PKT PO ASDIR PRN serum phosphorus 2-2.7Dc'd: Sodium Phosphate Inj (Sodium Phosphate Inj) 20MM IV ASDIR PRN phosphorus sliding scalein sodium chloride 0.9 % intravenous solution 250ML (Total 256.67 ML) Dc'd: Sodium Phosphate Inj (Sodium Phosphate Inj) 30MM IV ASDIR PRN phosphorus sliding scalein sodium chloride 0.9 % intravenous solution 250ML (Total 260 ML) Dc'd: traZODone Tab (Desyrel Tab) 100MG PO BEDTIME PRN sleep at 1014 ATTENTION *EDITS and/or ADDENDA must be made in Patient Keeper for this note. * * Edits and ammendments created in [facility] are not visible * * in Patient Keeper or the legal medical record (HPF). * RPT #: [id number] END OF REPORT [facility] 2024-01-07 10:13:00 [facility] ([facility]) Hospitalist Brief D/C Summ. REPORT #: [id number] REPORT STATUS: Signed DATE: 01/07/24 TIME: 1013 PATIENT: KOTA MONTES UN[facility] #: [id number] [facility] : 61 AGE: 63 SEX: M ATTEND: Keenan Kumari MD ADM AUTHOR: Keenan Kumari MD ATTENTION *EDITS and/or ADDENDA must be made in Patient Keeper for this note. * * Edits and ammendments created in [facility] are not visible * * in Patient Keeper or the legal medical record (HPF). * -- ADMISSION SYNOPSIS -- ADMISSION DATE: 12/31/23 ADMITTING DIAGNOSES: - Acute blood loss anemia - Acute CHF - Acute decompensated heart failure - Acute kidney failure, unspecified - Acute kidney injury - Acute on chronic systolic (congestive) heart failure - Acute posthemorrhagic anemia - Acute respiratory failure with hypercapnia - Acute respiratory failure with hypoxia - Acute respiratory failure with hypoxia and hypercapnia - Anemia - Atherosclerotic heart disease of [place] coronary artery without angina pectoris - Atrial fibrillation with RVR - Cardiogenic shock - Flash pulmonary edema - Hyperlipidemia - Hypertension - Hypertensive heart disease with heart failure - Left bundle-branch block, unspecified - Presence of aortocoronary bypass graft - Presence of automatic (implantable) cardiac defibrillator - Rheumatic disorders of both mitral and aortic valves - Systolic dysfunction with acute on chronic heart failure - Unspecified atrial fibrillation DISCHARGE DATE: 01/07/24 DISCHARGE DIAGNOSES: - Acute blood loss anemia - Acute CHF - Acute decompensated heart failure - Acute kidney failure, unspecified - Acute kidney injury - Acute on chronic systolic (congestive) heart failure - Acute posthemorrhagic anemia - Acute respiratory failure with hypercapnia - Acute respiratory failure with hypoxia - Acute respiratory failure with hypoxia and hypercapnia - Anemia - Atherosclerotic heart disease of [place] coronary artery without angina pectoris - Atrial fibrillation with RVR - Cardiogenic shock - Flash pulmonary edema - Hyperlipidemia - Hypertension - Hypertensive heart disease with heart failure - Left bundle-branch block, unspecified - Presence of aortocoronary bypass graft - Presence of automatic (implantable) cardiac defibrillator - Rheumatic disorders of both mitral and aortic valves - Systolic dysfunction with acute on chronic heart failure - Unspecified atrial fibrillation HOSPITAL COURSE TO DATE: Acute on chronic decompensated systolic Heart Failure, EF 25-29% - NYHA III Hx of CAD s/p CABG x2V, multiple PCIs Hx of Ischemic Cardiomyopathy Flash Pulmonary Edema Acute Hypoxic and Hypercapnic Respiratory Failure s/p intubation Vasogenic Shock Atrial Fibrillation LBBB with QRS 160ms>> S/p ASSOCIATE SOFTWARE ENGINEER-D placement Acute Kidney Injury Transaminitis Anemia Plan: -S/p ASSOCIATE SOFTWARE ENGINEER-D placement on 01/02/2024 -Continue Minocycline 100 mg twice daily 5 days -Off vasopressors -Diuresis as tolerated -monitor hemodynamics, tele, and I/Os -Extubated 01/03; was aggressive and agitated afterwards - continue to monitor mental status 01/06 - cleared by cardiology on new regimen. eliquis for AC. OK to go home and f/u outpatient DVT: on Eliquis Deposition: DC home Keenan Kumari MD Internal Medicne -- OBJECTIVE -- VITALS (01/05 10:13 - 01/06 10:13): Temperature C: 36.7 (36.6 - 37.0) Pulse Rate 80 (80 - 105) Respiratory rate: 16 (12 - 21) Blood pressure: 115/64 (109/58 - 133/73) Blood pressure source: Monitor I/Os (01/05 07:00 - 01/06 07:00): Net -1,002.80 Intake 747.20 Output 1,750 -EXAM- OTHER: Gen: well-appearing Chest: no pocket hematoma CV: tachycardic, regular Lungs: normal WOB -- DISCHARGE MEDICATIONS -- ALLERGIES: No Known Allergies (UNKNOWN - Allergy) -- DISCHARGE INSTRUCTIONS -- ADDTIONAL DISCHARGE INSTRUCTIONS: Emergency Instructions: The patient was instructed to present to the nearest Emergency Department or call 911 should their symptoms return or worsen.; -- DATA -- LABS PTT (01/07/24 08:15) THROMBOPLASTIN TIME PARTIAL 56.0 H CBC W/AUTO DIFF (01/07/24 00:08) WHITE BLOOD CELL 9.2 RED BLOOD CELL 3.64 L HEMOGLOBIN 11.0L L HEMATOCRIT 34.9L L MEAN CELL VOLUME 95.9 H MEAN CELL HGB 30.2 MEAN CELL HGB CONCENTRATION 31.5 L RED CELL DISTRIBUTION WIDTH 16.3 PLATELET COUNT 288 MEAN PLATELET VOLUME 9.9 NEUTROPHIL % 70.2 LYMPHOCYTE % 17.2 L MONOCYTE % 7.4 EOSINOPHIL % 3.7 BASOPHIL % 0.7 NEUTROPHIL # 6.43 LYMPHOCYTE # 1.58 MONOCYTE # 0.68 EOSINOPHIL # 0.34 BASOPHIL # 0.06 MAG (01/07/24 00:08) MAGNESIUM 2.1 BASIC METABOLIC PANEL (01/07/24 00:08) SODIUM 146H H POTASSIUM 3.5 CHLORIDE 109H H CARBON DIOXIDE 27 GLUCOSE 96 BLOOD UREA NITROGEN 19 GLOMERULAR FILTRATION RATE >=60 max estimate CREATININE 0.90 CALCIUM 8.2 L PTT (01/07/24 00:08) THROMBOPLASTIN TIME PARTIAL 49.3 H PTT (01/06/24 16:55) THROMBOPLASTIN TIME PARTIAL 43.2 D H Signed in PatientKeeper by KEENAN KUMARI MD on 01/07/24 at 10:14 at 1014 ATTENTION *EDITS and/or ADDENDA must be made in Patient Keeper for this note. * * Edits and ammendments created in [employer] are not visible * * in Patient Keeper or the legal medical record (HPF). * RPT #: [id number] END OF REPORT [facility] 2024-01-07 08:13:00 [facility] ([facility]) Cardiology Progress Notes REPORT #: [id number] REPORT STATUS: Signed DATE: 01/07/24 TIME: 812 PATIENT: KOTA MONTES UNIT #: [id number] ROOM #: P.0405 BED: A : 61 AGE: 63 SEX: M ATTEND: Keenan Kumari MD [facility] AUTHOR: Claire Artis MD 2 ATTENTION *EDITS and/or ADDENDA must be made in Patient Keeper for this note. * * Edits and ammendments created in [employer] are not visible * * in Patient Keeper or the legal medical record (HPF). * -- CO-SIGNATURE -- COMMENTS: I have seen and examined the patient with the business education teacher Dr. Claire Artis MD on January 07, 2024. I have reviewed all the clinical information, lab investigations, and imaging data. I agree with the following examination, findings, assessment and plan. I was present and supervised. Signed in PatientKeeper by KURTIS LYNCH MD on 01/19/24 at 09:11 -- ASSESSMENT AND PLAN -- GENERAL ASSESSMENT: Mr. Montes is a 63 year old male with a PMH of CAD s/p 2V CAB (06/25) and PCI ('06, 06/24, 12/24, 07/25), ischemic cardiomyopathy (EF 25-29%), HTN, HLD, h/o ETOH abuse, tobacco abuse, anxiety/depression, and medical non-compliance initially presenting to [facility] with a chief complaint of shortness of breath on 12/26. Pt found to have a BNP of 546, lactic acidosis and mild SAMMIE. Initial CXR showed bilateral infiltrates, and CTA was negative for PE but noted bilateral consolidation. Pt Intubated despite BIPAP and diuresis. Etiology determined to be due to decompensation attributed to CAP and acute decompensated heart failure. Patient's condition improved, and he was extubated to [place] on 12/27. ICU course complicated by AFib with RVR, with conversion to NSR following initiation of amiodarone. On 12/29, he was downgraded to the medical floor, however shortly after transfer he developed respiratory distress with associated hypoxia, as well as hypotension. He was transitioned to BIPAP and transferred back to the ICU, where he was subsequently re-intubated. Patient transferred to [facility] for management of acute hypoxic and hypercapnic respiratory failure due to suspected flash pulmonary edema. 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 systolic Heart Failure, EF 25-29% - NYHA III #Hx of CAD s/p CABG x2V, multiple PCIs #Hx of Ischemic Cardiomyopathy #Afib s/p AICD and paced rhythm now. #Acute Hypoxic and Hypercapnic Respiratory Failure s/p intubationStatus post extubation, status post transition to IMU this morning #LBBB with QRS 160ms>> S/p ASSOCIATE SOFTWARE ENGINEER-D placement #Acute Kidney Injury #Transaminitis #Anemia Plan: -Presented for Acute Hypoxic and Hypercapnic Respiratory Failure s/p intubation likely 2/2 flash pulmonary edema, status postintubation, ICU stay, status post extubation yesterday January 04, transition to the IMU earlier this morning. - RVR resolved, now paced rhythm, EP followed for underlying Afib and is planned for follow up as an out pt and evaluation for ablation. He is now on Apixaban and both ASA and Brillinta are discontinued. -TTE 12/30 showed EF 25-29%, RVSP increased, mod MR, hypokinesis of the basal-mid inferoseptal, mid anterior, mid anteroseptal, and apical septal rubin noted -LBBB and QRS >160ms with EF 25-29%, -S/p ASSOCIATE SOFTWARE ENGINEER-D placement on 01/02/2024 -Continue Minocycline 100 mg twice daily 5 days -Diuresis as tolerated -monitor hemodynamics, tele, and I/Os -- SUBJECTIVE -- CHIEF COMPLAINT: No new complaints this AM. Denied CP, SOB or palpitations. HPI: Pt has been stable since yesterday after initial Amiodaron bolus given. The patient was cotinued on Amio drip and followed by EP, Heparin drip and Amiodaron drip discontinued. This AM transitioned to Apixaban 5 mg BID (Age, Scr and Weight appropriate for dosing). The patient stable this AM. PATIENT NARRATIVE: Waiting for Dr. Valdez. -REVIEW OF SYSTEMS- COMMENT: 12 point review of system otherwise negative except from the HPI discussed above. -- OBJECTIVE -- VITALS (01/05 08:13 - 01/06 08:13): Temperature C: 36.7 (36.6 - 37.0) Pulse Rate 80 (80 - 154) Respiratory rate: 16 (12 - 23) Blood pressure: 115/64 (109/58 - 137/81) Blood pressure source: Monitor I/Os (01/05 07:00 - 01/06 07:00): Net -1,002.80 Intake 747.20 Output 1,750 -EXAM- GENERAL: Well developed, well nourished, Appears little anxious. NECK: No masses, no thyromegaly, no abnormal cervical nodes, trachea midline. CHEST: Grossly normal appearance. LUNGS: Occasional crackles particularly on the right base left base normal. Normal air entry. ABDOMEN: Soft, non-tender, no organomegaly, no masses noted. MUSCULOSKELETAL: Moves all limbs spontaneously NEUROLOGICAL: No focal deficits, cranial nerves II-XII grossly intact, normal sensation, normal reflexes, normal coordination, normal muscle strength, normal tone. PSYCHIATRIC: Alert and oriented to time, person, place. Normal mood and affect, intact judgment and insight. OTHER: -- DATA -- MEDICATIONS PREGABALIN 50 MG PO BID HYDROcodone BITARTRATE/APAP 1 TAB PO Q6H PRN dexmedeTOMIDine in 0.9 % NaCL 400 MCG IV TITRATE MAGNESIUM SULFATE 4 G IV ASDIR (PRN) ATORVASTATIN CALCIUM 80 MG PO BEDTIME THIAMINE HCL 100 MG PO DAILY AMIODARONE HCL 200 MG PO Q12HR DEXTROSE 50%-WATER 25 ML IV ASDIR PRN bisacodyL 10 MG RECTAL DAILY PRN MAGNESIUM SULFATE 2 GM IV ASDIR (PRN) FOLIC ACID 1 MG PO DAILY AMIODARONE HCL/D5W 450 MG IV ASDIR ESCITALOPRAM 20 MG PO DAILY CALCIUM GLUC IN NACL, ISO-OSM 2 GM IV ASDIR PRN DOCUSATE SODIUM 200 MG PO DAILY methocarbamoL 750 MG PO TID POTASSIUM CHLORIDE 20 MEQ PO ASDIR PRN DOXYCYCLINE MONOHYDRATE 100 MG PO Q12HR DOCUSATE SODIUM 200 MG PO 0900 (PRN) MELATONIN 6 MG PO BEDTIME HEPARIN/SOD CHLOR 0.45% 22969 UNITS IV TITRATE SODIUM PHOSPHATE with/in SODIUM CHLORIDE 0.9% 30 MM IV ASDIR (PRN) propofoL 1000 MG IV TITRATE traZODone HCL 100 MG PO BEDTIME PRN HEPARIN SODIUM,PORCINE 2500 UNIT IV ASDIR PRN SOD BIPHOS/POT PHOSPHATE 2 PKT PO ASDIR PRN polyethylene glycoL 3350 1 PKT PO DAILY HYDROcodone BITARTRATE/APAP 1 TAB PO Q6H PRN IPRATROPIUM/ALBUTEROL SULFATE 3 ML NEB RTQ6H HEPARIN SODIUM,PORCINE 5000 UNIT IV ASDIR PRN POTASSIUM CHLORIDE IN WATER 10 MEQ IV ASDIR (PRN) ACETAMINOPHEN 650 MG PO Q6H PRN SODIUM PHOSPHATE with/in SODIUM CHLORIDE 0.9% 20 MM IV ASDIR (PRN) HALOPERIDOL LACTATE 5 MG IV Q6H PRN HEPARIN PHARMACY TO MONITOR 1 EACH IV ASDIR LORazepam 1 MG IV Q6H PRN METOPROLOL TARTRATE 12.5 MG FEED-TUBE Q12HR LABS CBC W/AUTO DIFF (01/07/24 00:08) WHITE BLOOD CELL 9.2 RED BLOOD CELL 3.64 L HEMOGLOBIN 11.0L L HEMATOCRIT 34.9L L MEAN CELL VOLUME 95.9 H MEAN CELL HGB 30.2 MEAN CELL HGB CONCENTRATION 31.5 L RED CELL DISTRIBUTION WIDTH 16.3 PLATELET COUNT 288 MEAN PLATELET VOLUME 9.9 NEUTROPHIL % 70.2 LYMPHOCYTE % 17.2 L MONOCYTE % 7.4 EOSINOPHIL % 3.7 BASOPHIL % 0.7 NEUTROPHIL # 6.43 LYMPHOCYTE # 1.58 MONOCYTE # 0.68 EOSINOPHIL # 0.34 BASOPHIL # 0.06 MAG (01/07/24 00:08) MAGNESIUM 2.1 BASIC METABOLIC PANEL (01/07/24 00:08) SODIUM 146H H POTASSIUM 3.5 CHLORIDE 109H H CARBON DIOXIDE 27 GLUCOSE 96 BLOOD UREA NITROGEN 19 GLOMERULAR FILTRATION RATE >=60 max estimate CREATININE 0.90 CALCIUM 8.2 L PTT (01/07/24 00:08) THROMBOPLASTIN TIME PARTIAL 49.3 H PTT (01/06/24 16:55) THROMBOPLASTIN TIME PARTIAL 43.2 D H Signed in PatientKeeper by Claire Artis MD CF1 on 01/07/24 at 09:41 Cosigned by KURTIS LYNCH MD on 01/19/24 at 09:11 at 0911 at 0911 ATTENTION *EDITS and/or ADDENDA must be made in Patient Keeper for this note. * * Edits and ammendments created in [facility] are not visible * * in Patient Keeper or the legal medical record (HPF). * RPT #: [id number] END OF REPORT [facility] 2024-01-06 10:45:00 [facility] ([facility]) ElectroPhys. Progress Notes REPORT #: [id number] REPORT STATUS: Signed DATE: 01/06/24 TIME: 1044 PATIENT: KOTA MONTESLLO UNIT #: [id number] ROOM #: P.0405 BED: A : 61 AGE: 63 SEX: M ATTEND: Parvin Salcido DO ADM AUTHOR: Nhan Shipman DO CF1 ATTENTION *EDITS and/or ADDENDA must be made in Patient Keeper for this note. * * Edits and ammendments created in [employer] are not visible * * in Patient Keeper or the legal medical record (HPF). * -- CO-SIGNATURE -- COMMENTS: I obtained the history and performed the physical examination in supervision of Dr. Shipman. I concur with his findings with the following additions: Afib with RVR this AM. Patient converted to spontaneous rhythm after being started on amiodarone. Heparin drip was begun also. Gen: NAD Neck: neck veins are flat CV: RRR, no m/r/g Lungs: CTAB with normal WOB Abd: soft, NTND Neuro: speech intact, face symmetric, moves all extremities Continue heparin drip with PTT monitoring. Anticipate switching to Eliquis at the time of discharge. Will load with amiodarone for rhythm control. Would like to defer ablation until some months after device placement if possible. Added some metoprolol back for rate control. Time spent on patient care: I spent > 30 minutes on patient care, including 15 minutes spent jointly with Dr. Shipman. Reviewed CBC, BMP, device interrogation, telemetry. Independently reviewed 12 lead EKG showing afib with RVR and LBBB. > 50% of time spent on counseling/coordination of care. Signed in PatientKeeper by CRISTINO PARKER III, MD on 01/06/24 at 16:54 -- ASSESSMENT AND PLAN -- GENERAL ASSESSMENT: ICM Atrial fibrillation with RVR LBBB - s/p ASSOCIATE SOFTWARE ENGINEER-D - continue post op ppx minocycline - amio gtt, bolus + protocol started this morning for afib 170s-180s, converted to sinus, vpaced - start amiodarone 200 bid and metoprolol xl 12.5 - continue heparin gtt, transition to eliquis on discharge - follow up for an ablation as an outpatient, discussed at bedside -- SUBJECTIVE -- CHIEF COMPLAINT: in atrial fibrillation with RVR 170s-180s this morning. confirmed with [employer] rep. asymptomatic, normotensive -REVIEW OF SYSTEMS- COMMENT: Negative except as per in HPI. -- OBJECTIVE -- VITALS (01/04 10:45 - 01/05 10:45): Temperature C: 36.6 (36.5 - 36.9) Temperature source: Oral Pulse Rate 101 (101 - 112) Respiratory rate: 20 (9 - 23) Blood pressure: 121/66 (120/56 - 147/78) Blood pressure source: Monitor I/Os (01/04 06:00 - 01/05 06:00): Net -885.00 Net 50 Intake 540.00 Intake 150 Output 1,425 Output 100 -EXAM- OTHER: Gen: well-appearing Chest: no pocket hematoma CV: tachycardic, regular Lungs: normal WOB -- DATA -- MEDICATIONS PREGABALIN 50 MG PO BID HYDROcodone BITARTRATE/APAP 1 TAB PO Q6H PRN MAGNESIUM SULFATE 4 G IV ASDIR (PRN) THIAMINE HCL 100 MG PO DAILY bisacodyL 10 MG RECTAL DAILY PRN MAGNESIUM SULFATE 2 GM IV ASDIR (PRN) CALCIUM GLUC IN NACL, ISO-OSM 2 GM IV ASDIR PRN DOXYCYCLINE MONOHYDRATE 100 MG PO Q12HR HEPARIN/SOD CHLOR 0.45% 72166 UNITS IV TITRATE SODIUM PHOSPHATE with/in SODIUM CHLORIDE 0.9% 30 MM IV ASDIR (PRN) HEPARIN SODIUM,PORCINE 2500 UNIT IV ASDIR PRN SOD BIPHOS/POT PHOSPHATE 2 PKT PO ASDIR PRN HYDROcodone BITARTRATE/APAP 1 TAB PO Q6H PRN IPRATROPIUM/ALBUTEROL SULFATE 3 ML NEB RTQ6H HEPARIN SODIUM,PORCINE 5000 UNIT IV ASDIR PRN POTASSIUM CHLORIDE IN WATER 10 MEQ IV ASDIR (PRN) SODIUM PHOSPHATE with/in SODIUM CHLORIDE 0.9% 20 MM IV ASDIR (PRN) HALOPERIDOL LACTATE 5 MG IV Q6H PRN HEPARIN PHARMACY TO MONITOR 1 EACH IV ASDIR dexmedeTOMIDine in 0.9 % NaCL 400 MCG IV TITRATE ATORVASTATIN CALCIUM 80 MG PO BEDTIME AMIODARONE HCL 400 MG PO Q12HR DEXTROSE 50%-WATER 25 ML IV ASDIR PRN ASPIRIN 81 MG PO DAILY FOLIC ACID 1 MG PO DAILY AMIODARONE HCL/D5W 450 MG IV ASDIR ESCITALOPRAM 20 MG PO DAILY DOCUSATE SODIUM 200 MG PO DAILY methocarbamoL 750 MG PO TID POTASSIUM CHLORIDE 20 MEQ PO ASDIR PRN DOCUSATE SODIUM 200 MG PO 0900 (PRN) MELATONIN 6 MG PO BEDTIME propofoL 1000 MG IV TITRATE traZODone HCL 100 MG PO BEDTIME PRN polyethylene glycoL 3350 1 PKT PO DAILY TICAGRELOR 90 MG PO Q12HR ACETAMINOPHEN 650 MG PO Q6H PRN LORazepam 1 MG IV Q6H PRN (Held) METOPROLOL TARTRATE 12.5 MG FEED-TUBE Q12HR LABS PTT (01/06/24 08:08) THROMBOPLASTIN TIME PARTIAL 25.9 PHOS (01/06/24 08:08) PHOSPHOROUS 2.4 MAG (01/06/24 08:08) MAGNESIUM 2.4 CBC W/AUTO DIFF (01/06/24 08:08) WHITE BLOOD CELL 10.2 RED BLOOD CELL 3.90 L HEMOGLOBIN 11.8L L HEMATOCRIT 37.2L L MEAN CELL VOLUME 95.4 H MEAN CELL HGB 30.3 MEAN CELL HGB CONCENTRATION 31.7 L RED CELL DISTRIBUTION WIDTH 16.4 PLATELET COUNT 285 MEAN PLATELET VOLUME 10.1 NEUTROPHIL % 77.6 H LYMPHOCYTE % 11.6 L MONOCYTE % 7.4 EOSINOPHIL % 2.1 BASOPHIL % 0.3 NEUTROPHIL # 7.92 H LYMPHOCYTE # 1.18 MONOCYTE # 0.75 EOSINOPHIL # 0.21 BASOPHIL # 0.03 BASIC METABOLIC PANEL (01/06/24 08:08) SODIUM 147H H POTASSIUM 3.9 CHLORIDE 110H H CARBON DIOXIDE 25 GLUCOSE 94 BLOOD UREA NITROGEN 26H H GLOMERULAR FILTRATION RATE >=60 max estimate CREATININE 1.00 CALCIUM 8.7 PROTHROMBIN TIME (01/06/24 08:08) PROTHROMBIN TIME PATIENT 13.2 H INTERNATIONAL NORMAL RATIO 1.18 H GLU BED (01/05/24 11:56) GLUBED 135 H Signed in PatientKeeper by Nhan Shipman DO CF1 on 01/06/24 at 12:39 Cosigned by CRISTINO PARKER III, MD on 01/06/24 at 16:54 at 1654 at 1654 ATTENTION *EDITS and/or ADDENDA must be made in Patient Keeper for this note. * * Edits and ammendments created in [employer] are not visible * * in Patient Keeper or the legal medical record (HPF). * [facility] #: [id number] END OF REPORT [facility] 2024-01-06 09:24:00 [facility] ([facility]) Hospitalist Consultation REPORT #: [id number] REPORT STATUS: Signed DATE: 01/06/24 TIME: 923 PATIENT: KOTA MONTES UNIT #: [id number] ROOM #: P.0405 BED: A : 61 AGE: 63 SEX: M ATTEND: Parvin Salcido DO ADM AUTHOR: Keenan Kumari MD ATTENTION *EDITS and/or ADDENDA must be made in Patient Keeper for this note. * * Edits and ammendments created in [employer] are not visible * * in Patient Keeper or the legal medical record (HPF). * -- ASSESSMENT AND PLAN -- ADDITIONAL COMMENTS: Acute on chronic decompensated systolic Heart Failure, EF 25-29% - NYHA III Hx of CAD s/p CABG x2V, multiple PCIs Hx of Ischemic Cardiomyopathy Flash Pulmonary Edema Acute Hypoxic and Hypercapnic Respiratory Failure s/p intubation Vasogenic Shock Atrial Fibrillation LBBB with QRS 160ms>> S/p ASSOCIATE SOFTWARE ENGINEER-D placement Acute Kidney Injury Transaminitis Anemia Plan: -S/p ASSOCIATE SOFTWARE ENGINEER-D placement on 01/02/2024 -Continue Minocycline 100 mg twice daily 5 days -Off vasopressors -Diuresis as tolerated -monitor hemodynamics, tele, and I/Os -Extubated 01/03; was aggressive and agitated afterwards - continue to monitor mental status DVT: per cardio discretion Deposition: ultimately home with home health vs facility for rehab Keenan Ruiznrbella Medicne -- HISTORY -- HPI: Patient is a 63-year-old male well-known to critical care with PMH notable for CAD s/p 2V CAB (06/25) and PCI (06/24, 12/24, 07/25), ischemic cardiomyopathy (EF 25-29%), HTN, HLD, h/o ETOH abuse, tobacco abuse, anxiety/depression, and medical non-compliance initially presenting to [facility] with a chief complaint of shortness of breath on 12/26. Patient transferred to [facility] for management of acute hypoxic and hypercapnic respiratory failure. PAST MEDICAL HISTORY: CAD s/p 2V CAB (06/25) and PCI (, 06/24, 12/24, 07/25), ischemic cardiomyopathy (EF 25-29%), HTN, HLD, h/o ETOH abuse, tobacco abuse, anxiety/depression, and medical non-compliance PAST SURGICAL HISTORY: ICD, CAB, PCI FAMILY HISTORY: HTN DM -SOCIAL HISTORY- -TOBACCO USE- DETAILS/COMMENTS: history of -ALCOHOL USE- DETAILS/COMMENTS: history of -- ALLERGIES/HOME MEDS -- ALLERGIES: No Known Allergies (UNKNOWN - Allergy) -- SUBJECTIVE -- -REVIEW OF SYSTEMS- COMMENT: Negative except as per in HPI. -- OBJECTIVE -- VITALS (01/04 09:25 - 01/05 09:25): Temperature C: 36.6 (36.5 - 36.9) Temperature source: Oral Pulse Rate 101 (101 - 112) Respiratory rate: 20 (9 - 32) Blood pressure: 121/66 (120/56 - 147/90) Blood pressure source: Monitor I/Os (01/04 06:00 - 01/05 06:00): Net -885.00 Net 50 Intake 540.00 Intake 150 Output 1,425 Output 100 -EXAM- OTHER: Gen: well-appearing Chest: no pocket hematoma CV: tachycardic, regular Lungs: normal WOB -- DATA -- MEDICATIONS PREGABALIN 50 MG PO BID HYDROcodone BITARTRATE/APAP 1 TAB PO Q6H PRN MAGNESIUM SULFATE 4 G IV ASDIR (PRN) THIAMINE HCL 100 MG PO DAILY bisacodyL 10 MG RECTAL DAILY PRN MAGNESIUM SULFATE 2 GM IV ASDIR (PRN) CALCIUM GLUC IN NACL, ISO-OSM 2 GM IV ASDIR PRN DOXYCYCLINE MONOHYDRATE 100 MG PO Q12HR HEPARIN/SOD CHLOR 0.45% 78163 UNITS IV TITRATE SODIUM PHOSPHATE with/in SODIUM CHLORIDE 0.9% 30 MM IV ASDIR (PRN) HEPARIN SODIUM,PORCINE 2500 UNIT IV ASDIR PRN SOD BIPHOS/POT PHOSPHATE 2 PKT PO ASDIR PRN HYDROcodone BITARTRATE/APAP 1 TAB PO Q6H PRN IPRATROPIUM/ALBUTEROL SULFATE 3 ML NEB RTQ6H HEPARIN SODIUM,PORCINE 5000 UNIT IV ASDIR PRN POTASSIUM CHLORIDE IN WATER 10 MEQ IV ASDIR (PRN) SODIUM PHOSPHATE with/in SODIUM CHLORIDE 0.9% 20 MM IV ASDIR (PRN) HALOPERIDOL LACTATE 5 MG IV Q6H PRN HEPARIN PHARMACY TO MONITOR 1 EACH IV ASDIR dexmedeTOMIDine in 0.9 % NaCL 400 MCG IV TITRATE ATORVASTATIN CALCIUM 80 MG PO BEDTIME AMIODARONE HCL 400 MG PO Q12HR DEXTROSE 50%-WATER 25 ML IV ASDIR PRN ASPIRIN 81 MG PO DAILY FOLIC ACID 1 MG PO DAILY AMIODARONE HCL/D5W 450 MG IV ASDIR ESCITALOPRAM 20 MG PO DAILY DOCUSATE SODIUM 200 MG PO DAILY methocarbamoL 750 MG PO TID POTASSIUM CHLORIDE 20 MEQ PO ASDIR PRN DOCUSATE SODIUM 200 MG PO 0900 (PRN) MELATONIN 6 MG PO BEDTIME propofoL 1000 MG IV TITRATE traZODone HCL 100 MG PO BEDTIME PRN polyethylene glycoL 3350 1 PKT PO DAILY TICAGRELOR 90 MG PO Q12HR ACETAMINOPHEN 650 MG PO Q6H PRN LORazepam 1 MG IV Q6H PRN (Held) METOPROLOL TARTRATE 12.5 MG FEED-TUBE Q12HR LABS PTT (01/06/24 08:08) THROMBOPLASTIN TIME PARTIAL 25.9 PHOS (01/06/24 08:08) PHOSPHOROUS 2.4 MAG (01/06/24 08:08) MAGNESIUM 2.4 CBC W/AUTO DIFF (01/06/24 08:08) WHITE BLOOD CELL 10.2 RED BLOOD CELL 3.90 L HEMOGLOBIN 11.8L L HEMATOCRIT 37.2L L MEAN CELL VOLUME 95.4 H MEAN CELL HGB 30.3 MEAN CELL HGB CONCENTRATION 31.7 L RED CELL DISTRIBUTION WIDTH 16.4 PLATELET COUNT 285 MEAN PLATELET VOLUME 10.1 NEUTROPHIL % 77.6 H LYMPHOCYTE % 11.6 L MONOCYTE % 7.4 EOSINOPHIL % 2.1 BASOPHIL % 0.3 NEUTROPHIL # 7.92 H LYMPHOCYTE # 1.18 MONOCYTE # 0.75 EOSINOPHIL # 0.21 BASOPHIL # 0.03 BASIC METABOLIC PANEL (01/06/24 08:08) SODIUM 147H H POTASSIUM 3.9 CHLORIDE 110H H CARBON DIOXIDE 25 GLUCOSE 94 BLOOD UREA NITROGEN 26H H GLOMERULAR FILTRATION RATE >=60 max estimate CREATININE 1.00 CALCIUM 8.7 PROTHROMBIN TIME (01/06/24 08:08) PROTHROMBIN TIME PATIENT 13.2 H INTERNATIONAL NORMAL RATIO 1.18 H GLU BED (01/05/24 11:56) GLUBED 135 H Signed in PatientKeeper by KEENAN KUMARI MD on 01/06/24 at 10:00 at 1000 ATTENTION *EDITS and/or ADDENDA must be made in Patient Keeper for this note. * * Edits and ammendments created in [employer] are not visible * * in Patient Keeper or the legal medical record ([facility]). * RPT #: [id number] END OF REPORT [facility] 2024-01-06 08:12:00 [facility] ([facility]) Cardiology Progress Notes REPORT #: [id number] REPORT STATUS: Signed DATE: 01/06/24 TIME: 811 PATIENT: KOTA MONTES UNIT #: [id number] ROOM #: P.0405 BED: A : 61 AGE: 63 SEX: M ATTEND: Keenan Kumari MD ADM AUTHOR: Claire Artis MD 2 ATTENTION *EDITS and/or ADDENDA must be made in Patient Keeper for this note. * * Edits and ammendments created in [employer] are not visible * * in Patient Keeper or the legal medical record (HPF). * -- CO-SIGNATURE -- COMMENTS: I have seen and examined the patient with the business education teacher Dr. Claire Artis MD on January 06, 2024. I have reviewed all the clinical information, lab investigations, and imaging data. I agree with the following examination, findings, assessment and plan. I was present and supervised. Signed in PatientKeeper by KURTIS LYNCH MD on 01/19/24 at 09:11 -- ASSESSMENT AND PLAN -- GENERAL ASSESSMENT: Mr. Montes is a 63 year old male with a PMH of CAD s/p 2V CAB (06/25) and PCI (, 06/24, 12/24, 07/25), ischemic cardiomyopathy (EF 25-29%), HTN, HLD, h/o ETOH abuse, tobacco abuse, anxiety/depression, and medical non-compliance initially presenting to [facility] with a chief complaint of shortness of breath on 12/26. Pt found to have a BNP of 546, lactic acidosis and mild SAMMIE. Initial CXR showed bilateral infiltrates, and CTA was negative for PE but noted bilateral consolidation. Pt Intubated despite BIPAP and diuresis. Etiology determined to be due to decompensation attributed to CAP and acute decompensated heart failure. Patient's condition improved, and he was extubated to [place] on 12/27. ICU course complicated by AFib with RVR, with conversion to NSR following initiation of amiodarone. On 12/29, he was downgraded to the medical floor, however shortly after transfer he developed respiratory distress with associated hypoxia, as well as hypotension. He was transitioned to BIPAP and transferred back to the ICU, where he was subsequently re-intubated. Patient transferred to [facility] for management of acute hypoxic and hypercapnic respiratory failure due to suspected flash pulmonary edema. 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 systolic Heart Failure, EF 25-29% - NYHA III #Hx of CAD s/p CABG x2V, multiple PCIs #Hx of Ischemic Cardiomyopathy #Flash Pulmonary Edema #Acute Hypoxic and Hypercapnic Respiratory Failure s/p intubationStatus post extubation, status post transition to IMU this morning #LBBB with QRS 160ms>> S/p ASSOCIATE SOFTWARE ENGINEER-D placement #Atrial FibrillationWith RVR this morning with a heart rate 177 285 bpm. #Acute Kidney Injury #Transaminitis #Anemia Plan: -Presented for Acute Hypoxic and Hypercapnic Respiratory Failure s/p intubation likely 2/2 flash pulmonary edema, status postintubation, ICU stay, status post extubation yesterday January 04, transition to the IMU earlier this morning. Early this morning the patient went into A-fib with RVR with shortness of breath, chest tightness and palpitations. -Amiodarone bolus and drip initiated with the EP planning for possible cardioversion today if no improvement. -TTE 12/30 showed EF 25-29%, RVSP increased, mod MR, hypokinesis of the basal-mid inferoseptal, mid anterior, mid anteroseptal, and apical septal rubin noted -LBBB and QRS >160ms with EF 25-29%, -S/p ASSOCIATE SOFTWARE ENGINEER-D placement on 01/02/2024 -Continue Minocycline 100 mg twice daily 5 days -Diuresis as tolerated -monitor hemodynamics, tele, and I/Os -Case will be discussed with Dr. EDUARDO Today -- SUBJECTIVE -- CHIEF COMPLAINT: Palpitations chest tightness HPI: History of ischemic cardiomyopathy, left bundle branch blocks, status post ASSOCIATE SOFTWARE ENGINEER-D by the EP, this morning heart rate 177, interrogation of the device reviewed A-fib is an underlying rhythm. Patient will remain n.p.o. and possible cardioversion after the amiodarone bolus and drip has been initiated. PATIENT NARRATIVE: Remained stable -REVIEW OF SYSTEMS- COMMENT: 12 point review of system otherwise negative except from the HPI discussed above. -- OBJECTIVE -- VITALS (01/04 08:12 - 01/05 08:12): Temperature C: 36.8 (36.5 - 36.9) Temperature source: Oral Pulse Rate 101 (101 - 112) Respiratory rate: 20 (9 - 32) Blood pressure: 121/66 (120/56 - 147/90) Blood pressure source: Monitor I/Os (01/04 06:00 - 01/05 06:00): Net -885.00 Net 50 Intake 540.00 Intake 150 Output 1,425 Output 100 -EXAM- GENERAL: Well developed, well nourished, Appears little anxious. NECK: No masses, no thyromegaly, no abnormal cervical nodes, trachea midline. CHEST: Grossly normal appearance. LUNGS: Occasional crackles particularly on the right base left base normal. Normal air entry. ABDOMEN: Soft, non-tender, no organomegaly, no masses noted. MUSCULOSKELETAL: Moves all limbs spontaneously NEUROLOGICAL: No focal deficits, cranial nerves II-XII grossly intact, normal sensation, normal reflexes, normal coordination, normal muscle strength, normal tone. PSYCHIATRIC: Alert and oriented to time, person, place. Normal mood and affect, intact judgment and insight. OTHER: -- DATA -- MEDICATIONS PREGABALIN 50 MG PO BID HYDROcodone BITARTRATE/APAP 1 TAB PO Q6H PRN MAGNESIUM SULFATE 4 G IV ASDIR (PRN) THIAMINE HCL 100 MG PO DAILY bisacodyL 10 MG RECTAL DAILY PRN MAGNESIUM SULFATE 2 GM IV ASDIR (PRN) CALCIUM GLUC IN NACL, ISO-OSM 2 GM IV ASDIR PRN DOXYCYCLINE MONOHYDRATE 100 MG PO Q12HR SODIUM PHOSPHATE with/in SODIUM CHLORIDE 0.9% 30 MM IV ASDIR (PRN) HEPARIN SODIUM,PORCINE 0 UNIT IV ASDIR PRN SOD BIPHOS/POT PHOSPHATE 2 PKT PO ASDIR PRN HYDROcodone BITARTRATE/APAP 1 TAB PO Q6H PRN IPRATROPIUM/ALBUTEROL SULFATE 3 ML NEB RTQ6H HEPARIN SODIUM,PORCINE 0 UNIT IV ASDIR PRN POTASSIUM CHLORIDE IN WATER 10 MEQ IV ASDIR (PRN) SODIUM PHOSPHATE with/in SODIUM CHLORIDE 0.9% 20 MM IV ASDIR (PRN) HALOPERIDOL LACTATE 5 MG IV Q6H PRN dexmedeTOMIDine in 0.9 % NaCL 400 MCG IV TITRATE ATORVASTATIN CALCIUM 80 MG PO BEDTIME AMIODARONE HCL 400 MG PO Q12HR AMIODARONE IN DEXTROSE,ISO-OSM 150 MG IV ONCE DEXTROSE 50%-WATER 25 ML IV ASDIR PRN ASPIRIN 81 MG PO DAILY FOLIC ACID 1 MG PO DAILY ESCITALOPRAM 20 MG PO DAILY AMIODARONE HCL/D5W 450 MG IV ASDIR DOCUSATE SODIUM 200 MG PO DAILY methocarbamoL 750 MG PO TID POTASSIUM CHLORIDE 20 MEQ PO ASDIR PRN DOCUSATE SODIUM 200 MG PO 0900 (PRN) ENOXAPARIN SODIUM 40 MG SUBQ DAILY MELATONIN 6 MG PO BEDTIME propofoL 1000 MG IV TITRATE traZODone HCL 100 MG PO BEDTIME PRN polyethylene glycoL 3350 1 PKT PO DAILY TICAGRELOR 90 MG PO Q12HR HEPARIN SODIUM,PORCINE 0 UNIT IV ASDIR PRN ACETAMINOPHEN 650 MG PO Q6H PRN LORazepam 1 MG IV Q6H PRN (Held) METOPROLOL TARTRATE 12.5 MG FEED-TUBE Q12HR LABS GLU BED (01/05/24 11:56) GLUBED 135 H Signed in PatientKeeper by Claire Artis MD CF1 on 01/06/24 at 12:15 Cosigned by KURTIS LYNCH MD on 01/19/24 at 09:11 at 0911 at 0911 ATTENTION *EDITS and/or ADDENDA must be made in Patient Keeper for this note. * * Edits and ammendments created in [facility] are not visible * * in Patient Keeper or the legal medical record (HPF). * RPT #: [id number] END OF REPORT [facility] 2024-01-05 17:55:00 [facility] ([facility]) Cardiology Progress Notes REPORT #: [id number] REPORT STATUS: Signed DATE: 01/05/24 TIME: 1754 PATIENT: KOTA MONETS UNIT #: [id number] ROOM #: [id number] BED: A : 61 AGE: 63 SEX: M ATTEND: Parvin Salcido DO ADM AUTHOR: Cristino Parker III, MD ATTENTION *EDITS and/or ADDENDA must be made in Patient Keeper for this note. * * Edits and ammendments created in [employer] are not visible * * in Patient Keeper or the legal medical record ([facility]). * -- ASSESSMENT AND PLAN -- GENERAL ASSESSMENT: [facility] - s/p ASSOCIATE SOFTWARE ENGINEER-D - pressure dressing removed, no pocket hematoma - continue post op ppx minocycline. -- SUBJECTIVE -- PATIENT NARRATIVE: Improving. Mental status much better. -- OBJECTIVE -- VITALS (01/03 18:55 - 01/04 17:55): Temperature F: 98.7 (98.0 - 98.7) Temperature C: 36.8 (36.8 - 36.9) Temperature source: Oral Pulse Rate 112 (80 - 123) Respiratory rate: 20 (7 - 37) Blood pressure: 127/59 (1/0 - 142/90) Blood pressure source: Monitor I/Os (01/03 07:00 - 01/04 07:00): Net 179.60 Intake 2,059.60 Output 1,880 -EXAM- OTHER: Gen: well-appearing Chest: no pocket hematoma CV: tachycardic, regular Lungs: normal WOB -- DATA -- MEDICATIONS PREGABALIN 50 MG PO BID HYDROcodone BITARTRATE/APAP 1 TAB PO Q6H PRN MAGNESIUM SULFATE 4 G IV ASDIR (PRN) THIAMINE HCL 100 MG PO DAILY bisacodyL 10 MG RECTAL DAILY PRN MAGNESIUM SULFATE 2 GM IV ASDIR (PRN) CALCIUM GLUC IN NACL, ISO-OSM 2 GM IV ASDIR PRN DOXYCYCLINE MONOHYDRATE 100 MG PO Q12HR MUPIROCIN 1 APPLIC NASAL BID SODIUM PHOSPHATE with/in SODIUM CHLORIDE 0.9% 30 MM IV ASDIR (PRN) SOD BIPHOS/POT PHOSPHATE 2 PKT PO ASDIR PRN HYDROcodone BITARTRATE/APAP 1 TAB PO Q6H PRN IPRATROPIUM/ALBUTEROL SULFATE 3 ML NEB RTQ6H POTASSIUM CHLORIDE IN WATER 10 MEQ IV ASDIR (PRN) SODIUM PHOSPHATE with/in SODIUM CHLORIDE 0.9% 20 MM IV ASDIR (PRN) HALOPERIDOL LACTATE 5 MG IV Q6H PRN dexmedeTOMIDine in 0.9 % NaCL 400 MCG IV TITRATE ATORVASTATIN CALCIUM 80 MG PO BEDTIME AMIODARONE HCL 400 MG PO Q12HR DEXTROSE 50%-WATER 25 ML IV ASDIR PRN ASPIRIN 81 MG PO DAILY FOLIC ACID 1 MG PO DAILY ESCITALOPRAM 20 MG PO DAILY DOCUSATE SODIUM 200 MG PO DAILY methocarbamoL 750 MG PO TID POTASSIUM CHLORIDE 20 MEQ PO ASDIR PRN DOCUSATE SODIUM 200 MG PO 0900 (PRN) ENOXAPARIN SODIUM 40 MG SUBQ DAILY MELATONIN 6 MG PO BEDTIME propofoL 1000 MG IV TITRATE traZODone HCL 100 MG PO BEDTIME PRN polyethylene glycoL 3350 1 PKT PO DAILY TICAGRELOR 90 MG PO Q12HR ACETAMINOPHEN 650 MG PO Q6H PRN LORazepam 1 MG IV Q6H PRN (Held) METOPROLOL TARTRATE 12.5 MG FEED-TUBE Q12HR LABS GLU BED (01/05/24 11:56) GLUBED 135 H K (01/05/24 07:46) POTASSIUM 4.1 D BLOOD GAS W/ELECTROLYTES (01/05/24 05:30) ARTERIAL BLOOD GAS PH 7.45 ARTERIAL BLOOD GAS PCO2 38.4 ARTERIAL BLOOD GAS PO2 93.9 BICARBONATE TOTAL HCO3 26.0 H BASE EXCESS 2.0 ABG O2 SATURATION 96.7 ARTERIAL FIO2 36.0 ABG VENT MODE NASAL CANNULA ABG SITE A-Line ALLENS TEST NOT APPLICABLE SODIUM (POC) 144 POTASSIUM (POC) 3.49 L CHLORIDE (ARTERIAL) 106 GLUCOSE 99 IONIZED CALCIUM 1.13 POC LACTIC ACID 2.11 TOTAL HGB 12.5 D L OXYHEMOGLOBIN 96.1 CARBOXYHEMOGLOBIN 0.1 METHEMOGLOBIN <0.8 HHb 3.3 TCO2 ARTERIAL 27.2 MAG (01/05/24 02:13) MAGNESIUM 2.3 BASIC METABOLIC PANEL (01/05/24 02:13) SODIUM 149H H POTASSIUM 2.9L L CHLORIDE 110H H CARBON DIOXIDE 24 GLUCOSE 93 BLOOD UREA NITROGEN 45H H GLOMERULAR FILTRATION RATE 52 L CREATININE 1.50H H CALCIUM 8.6 L PHOS (01/05/24 02:13) PHOSPHOROUS 3.7 CBC W/AUTO DIFF (01/05/24 02:13) WHITE BLOOD CELL 13.3H H RED BLOOD CELL 3.79 L HEMOGLOBIN 11.5L L HEMATOCRIT 36.1L L MEAN CELL VOLUME 95.3 H MEAN CELL HGB 30.3 MEAN CELL HGB CONCENTRATION 31.9 L RED CELL DISTRIBUTION WIDTH 16.7 PLATELET COUNT 267 MEAN PLATELET VOLUME 10.1 NEUTROPHIL % 78.0 H LYMPHOCYTE % 11.9 L MONOCYTE % 8.4 EOSINOPHIL % 0.4 BASOPHIL % 0.5 NEUTROPHIL # 10.38 H LYMPHOCYTE # 1.59 MONOCYTE # 1.12 H EOSINOPHIL # 0.05 BASOPHIL # 0.06 GLU BED (01/05/24 00:52) GLUBED 91 BLOOD GAS W/ELECTROLYTES (01/04/24 21:28) ARTERIAL BLOOD GAS PH 7.40 ARTERIAL BLOOD GAS PCO2 41.7 ARTERIAL BLOOD GAS PO2 94.6 BICARBONATE TOTAL HCO3 25.1 H BASE EXCESS 0.2 ABG O2 SATURATION 96.7 ARTERIAL FIO2 36.0 ABG VENT MODE NASAL CANNULA ABG SITE A-Line ALLENS TEST NOT APPLICABLE SODIUM (POC) 147 POTASSIUM (POC) 2.98 L CHLORIDE (ARTERIAL) 109 H GLUCOSE 122 H IONIZED CALCIUM 1.20 POC LACTIC ACID 1.88 TOTAL HGB 13.7 OXYHEMOGLOBIN 96.0 CARBOXYHEMOGLOBIN 0.2 METHEMOGLOBIN <0.8 HHb 3.3 TCO2 ARTERIAL 26.4 ADDITIONAL COMMENTS: Reviewed BMP, CBC, telemetry. Signed in PatientKeeper by Cristino Parker III, MD on 01/05/24 at 17:57 at 1757 ATTENTION *EDITS and/or ADDENDA must be made in Patient Keeper for this note. * * Edits and ammendments created in [facility] are not visible * * in Patient Keeper or the legal medical record (HPF). * RPT #: [id number] END OF REPORT [facility] 2024-01-05 09:52:00 [facility] ([facility]) Intensive Care Progress Note REPORT #: [id number] REPORT STATUS: Signed DATE: 01/05/24 TIME: 951 PATIENT: KOTA MONTES UNIT #: [id number] ROOM #: [id number] BED: 1 : 61 AGE: 63 SEX: M ATTEND: Parvin Salcido DO ADM AUTHOR: Mandi Delarosa MD ATTENTION *EDITS and/or ADDENDA must be made in Patient Keeper for this note. * * Edits and ammendments created in [employer] are not visible * * in Patient Keeper or the legal medical record (HPF). * -- ASSESSMENT AND PLAN -- HOSPITAL COURSE TO DATE: Patient is a 63-year-old male well-known to critical care with PMH notable for CAD s/p 2V CAB (06/25) and PCI (', 06/24, 12/24, 07/25), ischemic cardiomyopathy (EF 25-29%), HTN, HLD, h/o ETOH abuse, tobacco abuse, anxiety/depression, and medical non-compliance initially presenting to [facility] with a chief complaint of shortness of breath on 12/26. Patient transferred to [facility] for management of acute hypoxic and hypercapnic respiratory failure. 01/01: BiV ICD 01/03: Extubated, Aggressive and agitated GENERAL ASSESSMENT: Plan: Neuro/Psych Agitation Aggressive Behavior Acute Encephalopathy -Haldol PRN -Multi-modal pain regimen Respiratory Acute Hypoxic and Hypercapnic Respiratory Failure Flash Pulmonary Edema -currently on 4L NC -cont diuresis -Serial CXRs/ABGs, CPT, pulmonary hygiene, SBTs per protocol Cardiovascular Cardiogenic Shock Acute Decompensated Heart Failure H/o CAD/Ischemic Cardiomyopathy s/p BiV ICD Vasogenic Shock Atrial Fibrillation -TTE (12/26): EF 20-30%, severely reduced LV function, severe global hypokinesis, normal RV function -bedside bubble study negative (looking for contribution to hypoxia) -HR paced at 80, improved CI -Hold GDMT/antihypertensives given labile BP -Previously in AFib with RVR, now NSR, continue amiodarone PO -DAPT/statin given extensive h/o CAD -Cardiology and EP following Gastrointestinal/Nutrition Acute Shock Liver -bedside swallow -SUP, bowel regimen Renal Acute Kidney Injury Volume Overload -off bumex gtt, monitor renal function -Electrolyte protocol, maintain K >4.0, Phos >3.0, Mg >2.0, Ca >1.1 Infectious Disease -Completed course of CAP at OSH, currently no concerns for infection -Hold empiric abx, monitor fever curve Endocrine -SSI PRN, maintain goal BS 140-180, hypoglycemia protocol HEME Acute Blood Loss Anemia -Acute blood loss anemia, currently without evidence of bleeding -Transfuse for goal Hgb >7.0, platelets >10k or 20k with bleeding, and fibrinogen >150 MSK -PT/OT PPX -DVT: LSQ -GI: PPI QD GOC -Code: Full per surrogate medical decision-maker () -Advance Care Planning: None per Medications reviewed with ICU pharmacist Patient seen and examined. History and clinical course reviewed since last examination. Patient is critically ill and at risk of imminent life threatening injury, organ failure, or . -- SUBJECTIVE -- PATIENT NARRATIVE: Overnight Events: Extubated yesterday, aggressive and agitated 10 System, 2 point ROS negative except for above. -- OBJECTIVE -- VITALS (01/03 10:52 - 01/04 09:52): Temperature F: 98.3 (98.0 - 98.3) Temperature source: Oral Pulse Rate 116 (80 - 123) Respiratory rate: 14 (7 - 41) Blood pressure: 1/0 (1/0 - 134/67) Blood pressure source: Arterial I/Os (01/03 07:00 - 01/04 07:00): Net 179.60 Intake 2,059.60 Output 1,880 -- DATA -- MEDICATIONS dexmedeTOMIDine in 0.9 % NaCL 400 MCG IV TITRATE MAGNESIUM SULFATE 4 G IV ASDIR (PRN) DEXTROSE 50%-WATER 25 ML IV ASDIR PRN bisacodyL 10 MG RECTAL DAILY PRN MAGNESIUM SULFATE 2 GM IV ASDIR (PRN) ESCITALOPRAM 20 MG FEED-TUBE DAILY CALCIUM GLUC IN NACL, ISO-OSM 2 GM IV ASDIR PRN DOCUSATE SODIUM 200 MG FEED-TUBE 0900 (PRN) PREGABALIN 50 MG FEED-TUBE BID DOCUSATE SODIUM 200 MG PO DAILY HYDROcodone BITARTRATE/APAP 1 TAB FEED-TUBE Q6H PRN methocarbamoL 750 MG FEED-TUBE TID POTASSIUM CHLORIDE 20 MEQ PO ASDIR PRN DOXYCYCLINE MONOHYDRATE 100 MG PO Q12HR HYDROmorphone HCL 0.5 MG IV Q3H PRN ENOXAPARIN SODIUM 40 MG SUBQ DAILY MUPIROCIN 1 APPLIC NASAL BID MELATONIN 6 MG PO BEDTIME GLUCAGON 1 MG IM ASDIR PRN FOLIC ACID 1 MG FEED-TUBE DAILY ASPIRIN 81 MG FEED-TUBE DAILY INSULIN LISPRO LOW DOSE SS SUBQ Q6HR SODIUM PHOSPHATE with/in SODIUM CHLORIDE 0.9% 30 MM IV ASDIR (PRN) propofoL 1000 MG IV TITRATE traZODone HCL 100 MG PO BEDTIME PRN SOD BIPHOS/POT PHOSPHATE 2 PKT PO ASDIR PRN HYDROcodone BITARTRATE/APAP 1 TAB FEED-TUBE Q6H PRN polyethylene glycoL 3350 1 PKT PO DAILY IPRATROPIUM/ALBUTEROL SULFATE 3 ML NEB RTQ6H TICAGRELOR 90 MG PO Q12HR AMIODARONE HCL 400 MG FEED-TUBE Q12HR POTASSIUM CHLORIDE IN WATER 10 MEQ IV ASDIR (PRN) ACETAMINOPHEN 650 MG FEED-TUBE Q6H PRN SODIUM PHOSPHATE with/in SODIUM CHLORIDE 0.9% 20 MM IV ASDIR (PRN) HALOPERIDOL LACTATE 5 MG IV Q6H PRN LORazepam 1 MG IV Q6H PRN THIAMINE HCL 100 MG FEED-TUBE DAILY (Held) METOPROLOL TARTRATE 12.5 MG FEED-TUBE Q12HR ATORVASTATIN CALCIUM 80 MG FEED-TUBE BEDTIME LABS K (01/05/24 07:46) POTASSIUM 4.1 D BLOOD GAS W/ELECTROLYTES (01/05/24 05:30) ARTERIAL BLOOD GAS PH 7.45 ARTERIAL BLOOD GAS PCO2 38.4 ARTERIAL BLOOD GAS PO2 93.9 BICARBONATE TOTAL HCO3 26.0 H BASE EXCESS 2.0 ABG O2 SATURATION 96.7 ARTERIAL FIO2 36.0 ABG VENT MODE NASAL CANNULA ABG SITE A-Line ALLENS TEST NOT APPLICABLE SODIUM (POC) 144 POTASSIUM (POC) 3.49 L CHLORIDE (ARTERIAL) 106 GLUCOSE 99 IONIZED CALCIUM 1.13 POC LACTIC ACID 2.11 TOTAL HGB 12.5 D L OXYHEMOGLOBIN 96.1 CARBOXYHEMOGLOBIN 0.1 METHEMOGLOBIN <0.8 HHb 3.3 TCO2 ARTERIAL 27.2 MAG (01/05/24 02:13) MAGNESIUM 2.3 BASIC METABOLIC PANEL (01/05/24 02:13) SODIUM 149H H POTASSIUM 2.9L L CHLORIDE 110H H CARBON DIOXIDE 24 GLUCOSE 93 BLOOD UREA NITROGEN 45H H GLOMERULAR FILTRATION RATE 52 L CREATININE 1.50H H CALCIUM 8.6 L PHOS (01/05/24 02:13) PHOSPHOROUS 3.7 CBC W/AUTO DIFF (01/05/24 02:13) WHITE BLOOD CELL 13.3H H RED BLOOD CELL 3.79 L HEMOGLOBIN 11.5L L HEMATOCRIT 36.1L L MEAN CELL VOLUME 95.3 H MEAN CELL HGB 30.3 MEAN CELL HGB CONCENTRATION 31.9 L RED CELL DISTRIBUTION WIDTH 16.7 PLATELET COUNT 267 MEAN PLATELET VOLUME 10.1 NEUTROPHIL % 78.0 H LYMPHOCYTE % 11.9 L MONOCYTE % 8.4 EOSINOPHIL % 0.4 BASOPHIL % 0.5 NEUTROPHIL # 10.38 H LYMPHOCYTE # 1.59 MONOCYTE # 1.12 H EOSINOPHIL # 0.05 BASOPHIL # 0.06 GLU BED (01/05/24 00:52) GLUBED 91 BLOOD GAS W/ELECTROLYTES (01/04/24 21:28) ARTERIAL BLOOD GAS PH 7.40 ARTERIAL BLOOD GAS PCO2 41.7 ARTERIAL BLOOD GAS PO2 94.6 BICARBONATE TOTAL HCO3 25.1 H BASE EXCESS 0.2 ABG O2 SATURATION 96.7 ARTERIAL FIO2 36.0 ABG VENT MODE NASAL CANNULA ABG SITE A-Line ALLENS TEST NOT APPLICABLE SODIUM (POC) 147 POTASSIUM (POC) 2.98 L CHLORIDE (ARTERIAL) 109 H GLUCOSE 122 H IONIZED CALCIUM 1.20 POC LACTIC ACID 1.88 TOTAL HGB 13.7 OXYHEMOGLOBIN 96.0 CARBOXYHEMOGLOBIN 0.2 METHEMOGLOBIN <0.8 HHb 3.3 TCO2 ARTERIAL 26.4 CBC W/AUTO DIFF (01/04/24 11:13) WHITE BLOOD CELL 12.2H H RED BLOOD CELL 4.17 L HEMOGLOBIN 12.5L L HEMATOCRIT 39.5L L MEAN CELL VOLUME 94.7 H MEAN CELL HGB 30.0 MEAN CELL HGB CONCENTRATION 31.6 L RED CELL DISTRIBUTION WIDTH 16.6 PLATELET COUNT 310 MEAN PLATELET VOLUME 10.3 NEUTROPHIL % 80.3 H LYMPHOCYTE % 9.1 L MONOCYTE % 8.6 EOSINOPHIL % 0.6 BASOPHIL % 0.4 NEUTROPHIL # 9.77 H LYMPHOCYTE # 1.11 MONOCYTE # 1.04 H EOSINOPHIL # 0.07 BASOPHIL # 0.05 BASIC METABOLIC PANEL (01/04/24 11:12) SODIUM 145 POTASSIUM 3.6 CHLORIDE 108H H CARBON DIOXIDE 27 GLUCOSE 137H H BLOOD UREA NITROGEN 47H H GLOMERULAR FILTRATION RATE 42 L CREATININE 1.80H H CALCIUM 9.3 PHOS (01/04/24 11:12) PHOSPHOROUS 3.6 MAG (01/04/24 11:12) MAGNESIUM 2.4 -- ATTESTATION -- CARE ACTIVITIES / CARE COORDINATION: - I have reviewed the history and repeated the carias elements - I have seen and examined this patient - I have reviewed the progress in the clinical course since the last examination - I have discussed the patient's condition with other members of the care team Signed in PatientKeeper by MANDI DELAROSA MD on 01/05/24 at 09:57 at 0957 ATTENTION *EDITS and/or ADDENDA must be made in Patient Keeper for this note. * * Edits and ammendments created in [facility] are not visible * * in Patient Keeper or the legal medical record (HPF). * RPT #: [id number] END OF REPORT [facility] 2024-01-05 07:41:00 [facility] ([facility]) Cardiology Progress Notes REPORT #: [id number] REPORT STATUS: Signed DATE: 01/05/24 TIME: 740 PATIENT: KOTA MONTES UNIT #: [id number] ROOM #: P.[id number] BED: A : 61 AGE: 63 SEX: M ATTEND: Keenan Kumari MD [facility] AUTHOR: Dioni Hernandez DO CF1 ATTENTION *EDITS and/or ADDENDA must be made in Patient Keeper for this note. * * Edits and ammendments created in [employer] are not visible * * in Patient Keeper or the legal medical record (HPF). * Attending: Austin Segal MD 02/22/24 12:04 I have personally seen and examined the patient independently, and reviewed the patient's history, exam, and all cardiac and laboratory data on 01/05/2024. I agree with the history, physical, and the assessment and plan as outlined by Dr. Hernandez, Cardiovascular Fellow. Note Date: 01/05/24 07:41 -- ASSESSMENT/PLAN -- GENERAL ASSESSMENT: Mr. Montes is a 63 year old male with a PMH of CAD s/p 2V CAB (06/25) and PCI (, 06/24, 12/24, 07/25), ischemic cardiomyopathy (EF 25-29%), HTN, HLD, h/o ETOH abuse, tobacco abuse, anxiety/depression, and medical non-compliance initially presenting to [facility] with a chief complaint of shortness of breath on 12/26. Pt found to have a BNP of 546, lactic acidosis and mild SAMMIE. Initial CXR showed bilateral infiltrates, and CTA was negative for PE but noted bilateral consolidation. Pt Intubated despite BIPAP and diuresis. Etiology determined to be due to decompensation attributed to CAP and acute decompensated heart failure. Patient's condition improved, and he was extubated to [place] on 12/27. ICU course complicated by AFib with RVR, with conversion to NSR following initiation of amiodarone. On 12/29, he was downgraded to the medical floor, however shortly after transfer he developed respiratory distress with associated hypoxia, as well as hypotension. He was transitioned to BIPAP and transferred back to the ICU, where he was subsequently re-intubated. Patient transferred to [facility] for management of acute hypoxic and hypercapnic respiratory failure due to suspected flash pulmonary edema. 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 systolic Heart Failure, EF 25-29% - NYHA III #Hx of CAD s/p CABG x2V, multiple PCIs #Hx of Ischemic Cardiomyopathy #Flash Pulmonary Edema #Acute Hypoxic and Hypercapnic Respiratory Failure s/p intubation #Vasogenic Shock #Atrial Fibrillation #LBBB with QRS 160ms>> S/p ASSOCIATE SOFTWARE ENGINEER-D placement #Acute Kidney Injury #Transaminitis #Anemia Plan: -Presented for Acute Hypoxic and Hypercapnic Respiratory Failure s/p intubation likely 2/2 flash pulmonary edema -EKG and Trop reviewed -TTE 12/30 showed EF 25-29%, RVSP increased, mod MR, hypokinesis of the basal-mid inferoseptal, mid anterior, mid anteroseptal, and apical septal rubin noted -LBBB and QRS >160ms with EF 25-29%, -S/p ASSOCIATE SOFTWARE ENGINEER-D placement on 01/02/2024 -Continue Minocycline 100 mg twice daily 5 days -Off vasopressors -Diuresis as tolerated -monitor hemodynamics, tele, and I/Os -Extubated 01/03; was aggressive and agitated afterwards Discussed with Dr. Segal -- SUBJECTIVE -- HPI: No acute events overnight. Extubated yesterday, aggressive and agitated. Now appears more pleasant. REVIEW OF SYSTEMS: Comment Negative except as per in HPI. -- EXAM -- VITALS (01/03 08:41 - 01/04 07:41): Temperature F: 98.3 (98.0 - 98.3) Temperature source: Oral Pulse Rate: 114 (80 - 123) Respiratory rate: 15 (7 - 41) Blood pressure: 117/63 (78/49 - 134/66) Blood pressure source: Arterial IOS (01/03 07:00-01/04 07:00): [id number] Intake2,059.60 Output1,880 EXAM: General Well developed, well nourished, in no apparent distress. Head Normocephalic, atraumatic. Mouth Oropharynx without deformities or lesions, normal mucosa.. Neck No masses, no thyromegaly, no abnormal cervical nodes, trachea midline. Chest Device site c/d/i. Lungs Clear bilaterally with normal respiratory effort. Heart Regular rate and rhythm, normal S1, S2, no murmurs, no rubs, no gallops, no clicks. Extremities No clubbing, no cyanosis, no edema. Neurological Alert and oriented, no focal deficits. -- DATA -- MEDICATIONS dexmedeTOMIDine in 0.9 % NaCL 400 MCG IV TITRATE MAGNESIUM SULFATE 4 G IV ASDIR (PRN) DEXTROSE 50%-WATER 25 ML IV ASDIR PRN bisacodyL 10 MG RECTAL DAILY PRN MAGNESIUM SULFATE 2 GM IV ASDIR (PRN) ESCITALOPRAM 20 MG FEED-TUBE DAILY CALCIUM GLUC IN NACL, ISO-OSM 2 GM IV ASDIR PRN DOCUSATE SODIUM 200 MG FEED-TUBE 0900 (PRN) PREGABALIN 50 MG FEED-TUBE BID DOCUSATE SODIUM 200 MG PO DAILY HYDROcodone BITARTRATE/APAP 1 TAB FEED-TUBE Q6H PRN methocarbamoL 750 MG FEED-TUBE TID POTASSIUM CHLORIDE 20 MEQ PO ASDIR PRN DOXYCYCLINE MONOHYDRATE 100 MG PO Q12HR HYDROmorphone HCL 0.5 MG IV Q3H PRN ENOXAPARIN SODIUM 40 MG SUBQ DAILY MUPIROCIN 1 APPLIC NASAL BID MELATONIN 6 MG PO BEDTIME GLUCAGON 1 MG IM ASDIR PRN FOLIC ACID 1 MG FEED-TUBE DAILY ASPIRIN 81 MG FEED-TUBE DAILY INSULIN LISPRO LOW DOSE SS SUBQ Q6HR SODIUM PHOSPHATE with/in SODIUM CHLORIDE 0.9% 30 MM IV ASDIR (PRN) propofoL 1000 MG IV TITRATE traZODone HCL 100 MG PO BEDTIME PRN SOD BIPHOS/POT PHOSPHATE 2 PKT PO ASDIR PRN HYDROcodone BITARTRATE/APAP 1 TAB FEED-TUBE Q6H PRN polyethylene glycoL 3350 1 PKT PO DAILY IPRATROPIUM/ALBUTEROL SULFATE 3 ML NEB RTQ6H TICAGRELOR 90 MG PO Q12HR AMIODARONE HCL 400 MG FEED-TUBE Q12HR POTASSIUM CHLORIDE IN WATER 10 MEQ IV ASDIR (PRN) ACETAMINOPHEN 650 MG FEED-TUBE Q6H PRN SODIUM PHOSPHATE with/in SODIUM CHLORIDE 0.9% 20 MM IV ASDIR (PRN) HALOPERIDOL LACTATE 5 MG IV Q6H PRN LORazepam 1 MG IV Q6H PRN THIAMINE HCL 100 MG FEED-TUBE DAILY (Held) METOPROLOL TARTRATE 12.5 MG FEED-TUBE Q12HR ATORVASTATIN CALCIUM 80 MG FEED-TUBE BEDTIME LAB RESULTS BLOOD GAS W/ELECTROLYTES (01/05/24 05:30) ARTERIAL BLOOD GAS PH 7.45 ARTERIAL BLOOD GAS PCO2 38.4 ARTERIAL BLOOD GAS PO2 93.9 BICARBONATE TOTAL HCO3 26.0 H BASE EXCESS 2.0 ABG O2 SATURATION 96.7 ARTERIAL FIO2 36.0 ABG VENT MODE NASAL CANNULA ABG SITE A-Line ALLENS TEST NOT APPLICABLE SODIUM (POC) 144 POTASSIUM (POC) 3.49 L CHLORIDE (ARTERIAL) 106 GLUCOSE 99 IONIZED CALCIUM 1.13 POC LACTIC ACID 2.11 TOTAL HGB 12.5 D L OXYHEMOGLOBIN 96.1 CARBOXYHEMOGLOBIN 0.1 METHEMOGLOBIN <0.8 HHb 3.3 TCO2 ARTERIAL 27.2 MAG (01/05/24 02:13) MAGNESIUM 2.3 BASIC METABOLIC PANEL (01/05/24 02:13) SODIUM 149H H POTASSIUM 2.9L L CHLORIDE 110H H CARBON DIOXIDE 24 GLUCOSE 93 BLOOD UREA NITROGEN 45H H GLOMERULAR FILTRATION RATE 52 L CREATININE 1.50H H CALCIUM 8.6 L PHOS (01/05/24 02:13) PHOSPHOROUS 3.7 CBC W/AUTO DIFF (01/05/24 02:13) WHITE BLOOD CELL 13.3H H RED BLOOD CELL 3.79 L HEMOGLOBIN 11.5L L HEMATOCRIT 36.1L L MEAN CELL VOLUME 95.3 H MEAN CELL HGB 30.3 MEAN CELL HGB CONCENTRATION 31.9 L RED CELL DISTRIBUTION WIDTH 16.7 PLATELET COUNT 267 MEAN PLATELET VOLUME 10.1 NEUTROPHIL % 78.0 H LYMPHOCYTE % 11.9 L MONOCYTE % 8.4 EOSINOPHIL % 0.4 BASOPHIL % 0.5 NEUTROPHIL # 10.38 H LYMPHOCYTE # 1.59 MONOCYTE # 1.12 H EOSINOPHIL # 0.05 BASOPHIL # 0.06 GLU BED (01/05/24 00:52) GLUBED 91 BLOOD GAS W/ELECTROLYTES (01/04/24 21:28) ARTERIAL BLOOD GAS PH 7.40 ARTERIAL BLOOD GAS PCO2 41.7 ARTERIAL BLOOD GAS PO2 94.6 BICARBONATE TOTAL HCO3 25.1 H BASE EXCESS 0.2 ABG O2 SATURATION 96.7 ARTERIAL FIO2 36.0 ABG VENT MODE NASAL CANNULA ABG SITE A-Line ALLENS TEST NOT APPLICABLE SODIUM (POC) 147 POTASSIUM (POC) 2.98 L CHLORIDE (ARTERIAL) 109 H GLUCOSE 122 H IONIZED CALCIUM 1.20 POC LACTIC ACID 1.88 TOTAL HGB 13.7 OXYHEMOGLOBIN 96.0 CARBOXYHEMOGLOBIN 0.2 METHEMOGLOBIN <0.8 HHb 3.3 TCO2 ARTERIAL 26.4 CBC W/AUTO DIFF (01/04/24 11:13) WHITE BLOOD CELL 12.2H H RED BLOOD CELL 4.17 L HEMOGLOBIN 12.5L L HEMATOCRIT 39.5L L MEAN CELL VOLUME 94.7 H MEAN CELL HGB 30.0 MEAN CELL HGB CONCENTRATION 31.6 L RED CELL DISTRIBUTION WIDTH 16.6 PLATELET COUNT 310 MEAN PLATELET VOLUME 10.3 NEUTROPHIL % 80.3 H LYMPHOCYTE % 9.1 L MONOCYTE % 8.6 EOSINOPHIL % 0.6 BASOPHIL % 0.4 NEUTROPHIL # 9.77 H LYMPHOCYTE # 1.11 MONOCYTE # 1.04 H EOSINOPHIL # 0.07 BASOPHIL # 0.05 BASIC METABOLIC PANEL (01/04/24 11:12) SODIUM 145 POTASSIUM 3.6 CHLORIDE 108H H CARBON DIOXIDE 27 GLUCOSE 137H H BLOOD UREA NITROGEN 47H H GLOMERULAR FILTRATION RATE 42 L CREATININE 1.80H H CALCIUM 9.3 PHOS (01/04/24 11:12) PHOSPHOROUS 3.6 MAG (01/04/24 11:12) MAGNESIUM 2.4 at 1204 at 1204 ATTENTION *EDITS and/or ADDENDA must be made in Patient Keeper for this note. * * Edits and ammendments created in [facility] are not visible * * in Patient Keeper or the legal medical record (HPF). * [facility] #: [id number] END OF REPORT [facility] 2024-01-04 16:48:00 [facility] ([facility]) Cardiology Progress Notes REPORT #: [id number] REPORT STATUS: Signed DATE: 01/04/24 TIME: 8 PATIENT: KOTA MONTES UNIT #: [id number] ROOM #: [id number] BED: 1 : 61 AGE: 63 SEX: M ATTEND: Parvin Salcido DO ADM AUTHOR: Cristino Parker III, MD ATTENTION *EDITS and/or ADDENDA must be made in Patient Keeper for this note. * * Edits and ammendments created in [employer] are not visible * * in Patient Keeper or the legal medical record (HPF). * -- ASSESSMENT AND PLAN -- GENERAL ASSESSMENT: CAD with CABG, PCI ICM, LVEF 25-29% Acute on chronic systolic HF s/p BiV ICD - afebrile - continue minocycline - now extubated - will remove pressure dressing tomorrow -- SUBJECTIVE -- PATIENT NARRATIVE: Extubated. Mildly confused. at bedside. -- OBJECTIVE -- VITALS (01/02 16:48 - 01/03 16:48): Temperature F: 98.1 (98.1 - 98.2) Pulse Rate 80 (80 - 82) Respiratory rate: 29 (12 - 30) Blood pressure: 91/55 (78/51 - 102/64) Blood pressure source: Arterial I/Os (01/02 07:00 - 01/03 07:00): Net -1,086.30 Intake 1,568.70 Output 2,655 -EXAM- OTHER: Gen: confused, no distress Chest: pressure dressing in place but no obvious hematoma CV: RRR Lungs: normal WOB -- DATA -- MEDICATIONS dexmedeTOMIDine in 0.9 % NaCL 400 MCG IV TITRATE MAGNESIUM SULFATE 4 G IV ASDIR (PRN) DEXTROSE 50%-WATER 25 ML IV ASDIR PRN bisacodyL 10 MG RECTAL DAILY PRN MAGNESIUM SULFATE 2 GM IV ASDIR (PRN) ESCITALOPRAM 20 MG FEED-TUBE DAILY CALCIUM GLUC IN NACL, ISO-OSM 2 GM IV ASDIR PRN DOCUSATE SODIUM 200 MG FEED-TUBE 0900 (PRN) PREGABALIN 50 MG FEED-TUBE BID DOCUSATE SODIUM 200 MG PO DAILY HYDROcodone BITARTRATE/APAP 1 TAB FEED-TUBE Q6H PRN methocarbamoL 750 MG FEED-TUBE TID POTASSIUM CHLORIDE 20 MEQ PO ASDIR PRN DOXYCYCLINE MONOHYDRATE 100 MG PO Q12HR HYDROmorphone HCL 0.5 MG IV Q3H PRN ENOXAPARIN SODIUM 40 MG SUBQ DAILY MUPIROCIN 1 APPLIC NASAL BID MELATONIN 6 MG PO BEDTIME GLUCAGON 1 MG IM ASDIR PRN FOLIC ACID 1 MG FEED-TUBE DAILY ASPIRIN 81 MG FEED-TUBE DAILY INSULIN LISPRO LOW DOSE SS SUBQ Q6HR SODIUM PHOSPHATE with/in SODIUM CHLORIDE 0.9% 30 MM IV ASDIR (PRN) propofoL 1000 MG IV TITRATE SOD BIPHOS/POT PHOSPHATE 2 PKT PO ASDIR PRN HYDROcodone BITARTRATE/APAP 1 TAB FEED-TUBE Q6H PRN polyethylene glycoL 3350 1 PKT PO DAILY IPRATROPIUM/ALBUTEROL SULFATE 3 ML NEB RTQ6H TICAGRELOR 90 MG PO Q12HR AMIODARONE HCL 400 MG FEED-TUBE Q12HR POTASSIUM CHLORIDE IN WATER 10 MEQ IV ASDIR (PRN) ACETAMINOPHEN 650 MG FEED-TUBE Q6H PRN SODIUM PHOSPHATE with/in SODIUM CHLORIDE 0.9% 20 MM IV ASDIR (PRN) HALOPERIDOL LACTATE 5 MG IV Q6H PRN LORazepam 1 MG IV Q6H PRN THIAMINE HCL 100 MG FEED-TUBE DAILY (Held) METOPROLOL TARTRATE 12.5 MG FEED-TUBE Q12HR ATORVASTATIN CALCIUM 80 MG FEED-TUBE BEDTIME LABS CBC W/AUTO DIFF (01/04/24 11:13) WHITE BLOOD CELL 12.2H H RED BLOOD CELL 4.17 L HEMOGLOBIN 12.5L L HEMATOCRIT 39.5L L MEAN CELL VOLUME 94.7 H MEAN CELL HGB 30.0 MEAN CELL HGB CONCENTRATION 31.6 L RED CELL DISTRIBUTION WIDTH 16.6 PLATELET COUNT 310 MEAN PLATELET VOLUME 10.3 NEUTROPHIL % 80.3 H LYMPHOCYTE % 9.1 L MONOCYTE % 8.6 EOSINOPHIL % 0.6 BASOPHIL % 0.4 NEUTROPHIL # 9.77 H LYMPHOCYTE # 1.11 MONOCYTE # 1.04 H EOSINOPHIL # 0.07 BASOPHIL # 0.05 BASIC METABOLIC PANEL (01/04/24 11:12) SODIUM 145 POTASSIUM 3.6 CHLORIDE 108H H CARBON DIOXIDE 27 GLUCOSE 137H H BLOOD UREA NITROGEN 47H H GLOMERULAR FILTRATION RATE 42 L CREATININE 1.80H H CALCIUM 9.3 PHOS (01/04/24 11:12) PHOSPHOROUS 3.6 MAG (01/04/24 11:12) MAGNESIUM 2.4 VENOUS BLOOD GAS (01/04/24 05:36) VENOUS BLOOD GAS PH 7.43 VENOUS BLOOD GAS PCO2 47.6 VENOUS BLOOD GAS PO2 32.3 VBG HCO3 31 VBG BASE EXCESS 5.7 VENOUS BLOOD GAS O2 SAT 62 VENOUS BLOOD GAS TYPE Venous VENOUS BLOOD GAS FIO2 60.0 VBG VENT MODE NC PHOS (01/04/24 05:33) PHOSPHOROUS 4.2 CBC W/AUTO DIFF (01/04/24 05:33) WHITE BLOOD CELL 10.8 RED BLOOD CELL 4.13 L HEMOGLOBIN 12.5L L HEMATOCRIT 39.1L L MEAN CELL VOLUME 94.7 H MEAN CELL HGB 30.3 MEAN CELL HGB CONCENTRATION 32.0 L RED CELL DISTRIBUTION WIDTH 16.5 PLATELET COUNT 293 MEAN PLATELET VOLUME 10.2 NEUTROPHIL % 77.1 H LYMPHOCYTE % 10.7 L MONOCYTE % 10.1 H EOSINOPHIL % 1.0 BASOPHIL % 0.4 NEUTROPHIL # 8.29 H LYMPHOCYTE # 1.15 MONOCYTE # 1.09 H EOSINOPHIL # 0.11 BASOPHIL # 0.04 BLOOD GAS W/ELECTROLYTES (01/04/24 05:33) ARTERIAL BLOOD GAS PH 7.47 H ARTERIAL BLOOD GAS PCO2 42.2 ARTERIAL BLOOD GAS PO2 90.4 BICARBONATE TOTAL HCO3 30.1 H BASE EXCESS 5.8 H ABG O2 SATURATION 97.3 ARTERIAL FIO2 60.0 ABG VENT MODE NASAL CANNULA ALLENS TEST NOT APPLICABLE SODIUM (POC) 144 POTASSIUM (POC) 3.89 CHLORIDE (ARTERIAL) 106 GLUCOSE 144 H IONIZED CALCIUM 1.14 POC LACTIC ACID 1.96 TOTAL HGB 13.8 OXYHEMOGLOBIN 96.3 CARBOXYHEMOGLOBIN 0.5 METHEMOGLOBIN <0.8 HHb 2.7 TCO2 ARTERIAL 31.4 H MAG (01/04/24 05:33) MAGNESIUM 2.3 COMPREHENSIVE METABOLIC PANEL (01/04/24 05:33) SODIUM 145 POTASSIUM 3.8 CHLORIDE 108 H CARBON DIOXIDE 29 GLUCOSE 134 H BLOOD UREA NITROGEN 40 H GLOMERULAR FILTRATION RATE 48 L CREATININE 1.60 H TOTAL PROTEIN 7.2 ALBUMIN 4.5 CALCIUM 9.4 BILIRUBIN TOTAL 0.4 SGOT/AST 42 H SGPT/ALT 50 H ALKALINE PHOSPHATASE 92.0 PTT (01/04/24 05:32) THROMBOPLASTIN TIME PARTIAL 27.6 PROTHROMBIN TIME (01/04/24 05:32) PROTHROMBIN TIME PATIENT 14.3 H INTERNATIONAL NORMAL RATIO 1.28 H FIB (01/04/24 05:32) FIBRINOGEN 868 H BLOOD GAS W/ELECTROLYTES (01/04/24 00:03) ARTERIAL BLOOD GAS PH 7.49 H ARTERIAL BLOOD GAS PCO2 39.3 ARTERIAL BLOOD GAS PO2 99.5 H BICARBONATE TOTAL HCO3 29.2 H BASE EXCESS 5.5 H ABG O2 SATURATION 97.6 ARTERIAL FIO2 60.0 ABG VENT MODE NASAL CANNULA ALLENS TEST NOT APPLICABLE SODIUM (POC) 146 POTASSIUM (POC) 3.93 CHLORIDE (ARTERIAL) 105 GLUCOSE 145 H IONIZED CALCIUM 1.14 POC LACTIC ACID 1.92 TOTAL HGB 13.8 OXYHEMOGLOBIN 96.9 CARBOXYHEMOGLOBIN 0.2 METHEMOGLOBIN <0.8 HHb 2.4 TCO2 ARTERIAL 30.4 H BLOOD GAS W/ELECTROLYTES (01/03/24 22:27) ARTERIAL BLOOD GAS PH 7.46 H ARTERIAL BLOOD GAS PCO2 37.2 ARTERIAL BLOOD GAS PO2 127.8 H BICARBONATE TOTAL HCO3 25.6 H BASE EXCESS 1.9 ABG O2 SATURATION 98.6 ARTERIAL FIO2 70.0 ABG VENT MODE Ventilator ALLENS TEST NOT APPLICABLE SODIUM (POC) 144 POTASSIUM (POC) 4.00 CHLORIDE (ARTERIAL) 103 GLUCOSE 132 H IONIZED CALCIUM 1.16 POC LACTIC ACID 1.38 TOTAL HGB 13.5 OXYHEMOGLOBIN 98.1 H CARBOXYHEMOGLOBIN 0.3 METHEMOGLOBIN <0.8 HHb 1.4 TCO2 ARTERIAL 26.8 BLOOD GAS W/ELECTROLYTES (01/03/24 22:18) ARTERIAL BLOOD GAS PH 7.47 H ARTERIAL BLOOD GAS PCO2 44.0 BICARBONATE TOTAL HCO3 31.2 H BASE EXCESS 6.7 H ABG O2 SATURATION 98.4 ARTERIAL FIO2 70.0 ABG VENT MODE Ventilator ALLENS TEST NOT APPLICABLE SODIUM (POC) 139 POTASSIUM (POC) 4.00 CHLORIDE (ARTERIAL) 103 GLUCOSE 144 H IONIZED CALCIUM 1.16 POC LACTIC ACID 1.82 TOTAL HGB 13.7 OXYHEMOGLOBIN 97.7 CARBOXYHEMOGLOBIN 0.2 METHEMOGLOBIN <0.8 HHb 1.6 TCO2 ARTERIAL 32.6 H BLOOD GAS W/ELECTROLYTES (01/03/24 20:15) ARTERIAL BLOOD GAS PCO2 37.6 ARTERIAL BLOOD GAS PO2 127.9 H ABG O2 SATURATION 98.7 ARTERIAL FIO2 70.0 ABG VENT MODE Ventilator ALLENS TEST NOT APPLICABLE SODIUM (POC) 146 POTASSIUM (POC) 3.97 CHLORIDE (ARTERIAL) 103 GLUCOSE 137 H IONIZED CALCIUM 1.17 POC LACTIC ACID 1.89 TOTAL HGB 13.6 OXYHEMOGLOBIN 98.0 CARBOXYHEMOGLOBIN 0.6 METHEMOGLOBIN <0.8 HHb 1.3 GLU BED (01/03/24 18:00) GLUBED 101 ADDITIONAL COMMENTS: Reviewed CBC, BMP, telemetry. Signed in PatientKeeper by Cristino Parker III, MD on 01/04/24 at 16:52 at 1652 ATTENTION *EDITS and/or ADDENDA must be made in Patient Keeper for this note. * * Edits and ammendments created in [facility] are not visible * * in Patient Keeper or the legal medical record (HPF). * RPT #: [id number] END OF REPORT [facility] 2024-01-04 12:43:00 [facility] ([facility]) Intensive Care Progress Note REPORT #: [id number] REPORT STATUS: Signed DATE: 01/04/24 TIME: 1243 PATIENT: KOTA MONTES UNIT #: [id number] ROOM #: [id number] BED: 1 : 61 AGE: 63 SEX: M ATTEND: Parvin Salcido DO ADM AUTHOR: Mandi Delarosa MD ATTENTION *EDITS and/or ADDENDA must be made in Patient Keeper for this note. * * Edits and ammendments created in [employer] are not visible * * in Patient Keeper or the legal medical record (HPF). * -- ASSESSMENT AND PLAN -- HOSPITAL COURSE TO DATE: Patient is a 63-year-old male well-known to critical care with PMH notable for CAD s/p 2V CAB (06/25) and PCI (, 06/24, 12/24, 07/25), ischemic cardiomyopathy (EF 25-29%), HTN, HLD, h/o ETOH abuse, tobacco abuse, anxiety/depression, and medical non-compliance initially presenting to [facility] with a chief complaint of shortness of breath on 12/26. Patient transferred to [facility] for management of acute hypoxic and hypercapnic respiratory failure. 01/01: BiV ICD GENERAL ASSESSMENT: Plan: Neuro/Psych Agitation Acute Encephalopathy -Continue Precedex/propofol gtts while intubated, goal RASS 0 to -1 -wean as tolerated for extubation once ready from respiratory perspective -Multi-modal pain regimen Respiratory Acute Hypoxic and Hypercapnic Respiratory Failure Flash Pulmonary Edema -continues to have elevated oxygen requirements, titrate FiO2 and PEEP towards extubation if possible -cont diuresis -Serial CXRs/ABGs, CPT, pulmonary hygiene, SBTs per protocol Cardiovascular Cardiogenic Shock Acute Decompensated Heart Failure H/o CAD/Ischemic Cardiomyopathy s/p BiV ICD Vasogenic Shock Atrial Fibrillation -TTE (12/26): EF 20-30%, severely reduced LV function, severe global hypokinesis, normal RV function -bedside bubble study negative (looking for contribution to hypoxia) -HR paced at 80 improved SvO2 to 62, CI to 2.2 -Hold GDMT/antihypertensives given labile BP -Previously in AFib with RVR, now NSR, continue amiodarone PO -DAPT/statin given extensive h/o CAD -Cardiology and EP following Gastrointestinal/Nutrition Acute Shock Liver -Doboff for tube feeds -SUP, bowel regimen Renal Acute Kidney Injury Volume Overload -stopping bumex gtt, monitor renal function -Electrolyte protocol, maintain K >4.0, Phos >3.0, Mg >2.0, Ca >1.1 Infectious Disease -Completed course of CAP at OSH, currently no concerns for infection -Hold empiric abx, monitor fever curve Endocrine -SSI PRN, maintain goal BS 140-180, hypoglycemia protocol HEME Acute Blood Loss Anemia -Acute blood loss anemia, currently without evidence of bleeding -Transfuse for goal Hgb >7.0, platelets >10k or 20k with bleeding, and fibrinogen >150 MSK -PT/OT once extubated PPX -DVT: LSQ -GI: PPI QD GOC -Code: Full per surrogate medical decision-maker () -Advance Care Planning: None per Medications reviewed with ICU pharmacist Patient seen and examined. History and clinical course reviewed since last examination. Patient is critically ill and at risk of imminent life threatening injury, organ failure, or . -- SUBJECTIVE -- PATIENT NARRATIVE: Overnight Events: increased Cr, mild improvement in oxygen requirements 10 System, 2 point ROS negative except for above. -- OBJECTIVE -- VITALS (01/02 12:43 - 01/03 12:43): Temperature F: 98.1 (98.1 - 98.2) Pulse Rate 80 (67 - 82) Respiratory rate: 13 (12 - 22) Blood pressure: 89/54 (89/53 - 113/66) Blood pressure source: Arterial I/Os (01/02 07:00 - 01/03 07:00): Net -1,086.30 Intake 1,568.70 Output 2,655 -- DATA -- MEDICATIONS dexmedeTOMIDine in 0.9 % NaCL 400 MCG IV TITRATE MAGNESIUM SULFATE 4 G IV ASDIR (PRN) DEXTROSE 50%-WATER 25 ML IV ASDIR PRN bisacodyL 10 MG RECTAL DAILY PRN MAGNESIUM SULFATE 2 GM IV ASDIR (PRN) ESCITALOPRAM 20 MG FEED-TUBE DAILY SODIUM CHLORIDE 100 mL BAG with/in BUMETANIDE 60 ML IV .Q20H CALCIUM GLUC IN NACL, ISO-OSM 2 GM IV ASDIR PRN DOCUSATE SODIUM 200 MG FEED-TUBE 0900 (PRN) PREGABALIN 50 MG FEED-TUBE BID DOCUSATE SODIUM 200 MG PO DAILY HYDROcodone BITARTRATE/APAP 1 TAB FEED-TUBE Q6H PRN methocarbamoL 750 MG FEED-TUBE TID POTASSIUM CHLORIDE 20 MEQ PO ASDIR PRN DOXYCYCLINE MONOHYDRATE 100 MG PO Q12HR HYDROmorphone HCL 0.5 MG IV Q3H PRN ENOXAPARIN SODIUM 40 MG SUBQ DAILY MUPIROCIN 1 APPLIC NASAL BID MELATONIN 6 MG PO BEDTIME GLUCAGON 1 MG IM ASDIR PRN FOLIC ACID 1 MG FEED-TUBE DAILY ASPIRIN 81 MG FEED-TUBE DAILY INSULIN LISPRO LOW DOSE SS SUBQ Q6HR SODIUM PHOSPHATE with/in SODIUM CHLORIDE 0.9% 30 MM IV ASDIR (PRN) propofoL 1000 MG IV TITRATE SOD BIPHOS/POT PHOSPHATE 2 PKT PO ASDIR PRN HYDROcodone BITARTRATE/APAP 1 TAB FEED-TUBE Q6H PRN polyethylene glycoL 3350 1 PKT PO DAILY IPRATROPIUM/ALBUTEROL SULFATE 3 ML NEB RTQ6H TICAGRELOR 90 MG PO Q12HR AMIODARONE HCL 400 MG FEED-TUBE Q12HR POTASSIUM CHLORIDE IN WATER 10 MEQ IV ASDIR (PRN) ACETAMINOPHEN 650 MG FEED-TUBE Q6H PRN SODIUM PHOSPHATE with/in SODIUM CHLORIDE 0.9% 20 MM IV ASDIR (PRN) HALOPERIDOL LACTATE 5 MG IV Q6H PRN LORazepam 1 MG IV Q6H PRN THIAMINE HCL 100 MG FEED-TUBE DAILY (Held) METOPROLOL TARTRATE 12.5 MG FEED-TUBE Q12HR ATORVASTATIN CALCIUM 80 MG FEED-TUBE BEDTIME LABS VENOUS BLOOD GAS (01/04/24 05:36) VENOUS BLOOD GAS PH 7.43 VENOUS BLOOD GAS PCO2 47.6 VENOUS BLOOD GAS PO2 32.3 VBG HCO3 31 VBG BASE EXCESS 5.7 VENOUS BLOOD GAS O2 SAT 62 VENOUS BLOOD GAS TYPE Venous VENOUS BLOOD GAS FIO2 60.0 VBG VENT MODE NC PHOS (01/04/24 05:33) PHOSPHOROUS 4.2 CBC W/AUTO DIFF (01/04/24 05:33) WHITE BLOOD CELL 10.8 RED BLOOD CELL 4.13 L HEMOGLOBIN 12.5L L HEMATOCRIT 39.1L L MEAN CELL VOLUME 94.7 H MEAN CELL HGB 30.3 MEAN CELL HGB CONCENTRATION 32.0 L RED CELL DISTRIBUTION WIDTH 16.5 PLATELET COUNT 293 MEAN PLATELET VOLUME 10.2 NEUTROPHIL % 77.1 H LYMPHOCYTE % 10.7 L MONOCYTE % 10.1 H EOSINOPHIL % 1.0 BASOPHIL % 0.4 NEUTROPHIL # 8.29 H LYMPHOCYTE # 1.15 MONOCYTE # 1.09 H EOSINOPHIL # 0.11 BASOPHIL # 0.04 BLOOD GAS W/ELECTROLYTES (01/04/24 05:33) ARTERIAL BLOOD GAS PH 7.47 H ARTERIAL BLOOD GAS PCO2 42.2 ARTERIAL BLOOD GAS PO2 90.4 BICARBONATE TOTAL HCO3 30.1 H BASE EXCESS 5.8 H ABG O2 SATURATION 97.3 ARTERIAL FIO2 60.0 ABG VENT MODE NASAL CANNULA ALLENS TEST NOT APPLICABLE SODIUM (POC) 144 POTASSIUM (POC) 3.89 CHLORIDE (ARTERIAL) 106 GLUCOSE 144 H IONIZED CALCIUM 1.14 POC LACTIC ACID 1.96 TOTAL HGB 13.8 OXYHEMOGLOBIN 96.3 CARBOXYHEMOGLOBIN 0.5 METHEMOGLOBIN <0.8 HHb 2.7 TCO2 ARTERIAL 31.4 H MAG (01/04/24 05:33) MAGNESIUM 2.3 COMPREHENSIVE METABOLIC PANEL (01/04/24 05:33) SODIUM 145 POTASSIUM 3.8 CHLORIDE 108 H CARBON DIOXIDE 29 GLUCOSE 134 H BLOOD UREA NITROGEN 40 H GLOMERULAR FILTRATION RATE 48 L CREATININE 1.60 H TOTAL PROTEIN 7.2 ALBUMIN 4.5 CALCIUM 9.4 BILIRUBIN TOTAL 0.4 SGOT/AST 42 H SGPT/ALT 50 H ALKALINE PHOSPHATASE 92.0 PTT (01/04/24 05:32) THROMBOPLASTIN TIME PARTIAL 27.6 PROTHROMBIN TIME (01/04/24 05:32) PROTHROMBIN TIME PATIENT 14.3 H INTERNATIONAL NORMAL RATIO 1.28 H FIB (01/04/24 05:32) FIBRINOGEN 868 H BLOOD GAS W/ELECTROLYTES (01/04/24 00:03) ARTERIAL BLOOD GAS PH 7.49 H ARTERIAL BLOOD GAS PCO2 39.3 ARTERIAL BLOOD GAS PO2 99.5 H BICARBONATE TOTAL HCO3 29.2 H BASE EXCESS 5.5 H ABG O2 SATURATION 97.6 ARTERIAL FIO2 60.0 ABG VENT MODE NASAL CANNULA ALLENS TEST NOT APPLICABLE SODIUM (POC) 146 POTASSIUM (POC) 3.93 CHLORIDE (ARTERIAL) 105 GLUCOSE 145 H IONIZED CALCIUM 1.14 POC LACTIC ACID 1.92 TOTAL HGB 13.8 OXYHEMOGLOBIN 96.9 CARBOXYHEMOGLOBIN 0.2 METHEMOGLOBIN <0.8 HHb 2.4 TCO2 ARTERIAL 30.4 H BLOOD GAS W/ELECTROLYTES (01/03/24 22:27) ARTERIAL BLOOD GAS PH 7.46 H ARTERIAL BLOOD GAS PCO2 37.2 ARTERIAL BLOOD GAS PO2 127.8 H BICARBONATE TOTAL HCO3 25.6 H BASE EXCESS 1.9 ABG O2 SATURATION 98.6 ARTERIAL FIO2 70.0 ABG VENT MODE Ventilator ALLENS TEST NOT APPLICABLE SODIUM (POC) 144 POTASSIUM (POC) 4.00 CHLORIDE (ARTERIAL) 103 GLUCOSE 132 H IONIZED CALCIUM 1.16 POC LACTIC ACID 1.38 TOTAL HGB 13.5 OXYHEMOGLOBIN 98.1 H CARBOXYHEMOGLOBIN 0.3 METHEMOGLOBIN <0.8 HHb 1.4 TCO2 ARTERIAL 26.8 BLOOD GAS W/ELECTROLYTES (01/03/24 22:18) ARTERIAL BLOOD GAS PH 7.47 H ARTERIAL BLOOD GAS PCO2 44.0 BICARBONATE TOTAL HCO3 31.2 H BASE EXCESS 6.7 H ABG O2 SATURATION 98.4 ARTERIAL FIO2 70.0 ABG VENT MODE Ventilator ALLENS TEST NOT APPLICABLE SODIUM (POC) 139 POTASSIUM (POC) 4.00 CHLORIDE (ARTERIAL) 103 GLUCOSE 144 H IONIZED CALCIUM 1.16 POC LACTIC ACID 1.82 TOTAL HGB 13.7 OXYHEMOGLOBIN 97.7 CARBOXYHEMOGLOBIN 0.2 METHEMOGLOBIN <0.8 HHb 1.6 TCO2 ARTERIAL 32.6 H BLOOD GAS W/ELECTROLYTES (01/03/24 20:15) ARTERIAL BLOOD GAS PCO2 37.6 ARTERIAL BLOOD GAS PO2 127.9 H ABG O2 SATURATION 98.7 ARTERIAL FIO2 70.0 ABG VENT MODE Ventilator ALLENS TEST NOT APPLICABLE SODIUM (POC) 146 POTASSIUM (POC) 3.97 CHLORIDE (ARTERIAL) 103 GLUCOSE 137 H IONIZED CALCIUM 1.17 POC LACTIC ACID 1.89 TOTAL HGB 13.6 OXYHEMOGLOBIN 98.0 CARBOXYHEMOGLOBIN 0.6 METHEMOGLOBIN <0.8 HHb 1.3 GLU BED (01/03/24 18:00) GLUBED 101 PHOS (01/03/24 15:52) PHOSPHOROUS 4.0 MAG (01/03/24 15:52) MAGNESIUM 2.2 BASIC METABOLIC PANEL (01/03/24 15:52) SODIUM 146H H POTASSIUM 4.0 CHLORIDE 106 CARBON DIOXIDE 30 GLUCOSE 128H H BLOOD UREA NITROGEN 30H H GLOMERULAR FILTRATION RATE >=60 max estimate CREATININE 1.10 CALCIUM 9.4 BLOOD GAS W/ELECTROLYTES (01/03/24 14:23) ARTERIAL BLOOD GAS PH 7.51 H ARTERIAL BLOOD GAS PCO2 39.4 ARTERIAL BLOOD GAS PO2 78.8 L BICARBONATE TOTAL HCO3 30.8 H BASE EXCESS 7.3 H ABG O2 SATURATION 95.6 ARTERIAL FIO2 70.0 ABG VENT MODE Ventilator ALLENS TEST NOT APPLICABLE SODIUM (POC) 143 POTASSIUM (POC) 4.07 CHLORIDE (ARTERIAL) 103 GLUCOSE 138 H IONIZED CALCIUM 1.17 POC LACTIC ACID 1.82 TOTAL HGB 13.9 OXYHEMOGLOBIN 95.2 CARBOXYHEMOGLOBIN 0.3 METHEMOGLOBIN <0.8 HHb 4.4 TCO2 ARTERIAL 32.0 H VENOUS BLOOD GAS (01/03/24 14:20) VENOUS BLOOD GAS PH 7.44 VENOUS BLOOD GAS PCO2 50.4 VENOUS BLOOD GAS PO2 29.7 VBG HCO3 34 VBG BASE EXCESS 7.9 VENOUS BLOOD GAS O2 SAT 52 VENOUS BLOOD GAS TYPE Venous VENOUS BLOOD GAS FIO2 70.0 VBG VENT MODE Ventilator -- ATTESTATION -- TIME SPENT ON PATIENT CARE: - Critical Care: time spent apart from any procedure 50 minutes CARE ACTIVITIES / CARE COORDINATION: - I have reviewed the history and repeated the carias elements - I have seen and examined this patient - I have reviewed the progress in the clinical course since the last examination - I have discussed the patient's condition with other members of the care team Signed in PatientKeeper by MANDI DELAROSA MD on 01/04/24 at 12:45 at 1245 ATTENTION *EDITS and/or ADDENDA must be made in Patient Keeper for this note. * * Edits and ammendments created in [employer] are not visible * * in Patient Keeper or the legal medical record (HPF). * [facility] #: [phone] END OF REPORT [facility] 2024-01-04 10:09:00 [facility] ([facility]) Cardiology Progress Notes REPORT #: [id number] REPORT STATUS: Signed DATE: 01/04/24 TIME: 1009 PATIENT: KOTA MONTES UNIT #: [id number] ROOM #: [id number] BED: A : 61 AGE: 63 SEX: M ATTEND: Keenan Kumari MD ADM AUTHOR: Liu Patricia DO CF2 ATTENTION *EDITS and/or ADDENDA must be made in Patient Keeper for this note. * * Edits and ammendments created in [employer] are not visible * * in Patient Keeper or the legal medical record (HPF). * Attending: Austin Segal MD 02/22/24 12:02 I have personally seen and examined the patient independently, and reviewed the patient's history, exam, and all cardiac and laboratory data on 01/04/2024. I agree with the history, physical, and the assessment and plan as outlined by Dr. Patricia, Cardiovascular Fellow. Note Date: 01/04/24 10:09 -- ASSESSMENT/PLAN -- GENERAL ASSESSMENT: Mr. Montes is a 63 year old male with a PMH of CAD s/p 2V CAB (06/25) and PCI (', 06/24, 12/24, 07/25), ischemic cardiomyopathy (EF 25-29%), HTN, HLD, h/o ETOH abuse, tobacco abuse, anxiety/depression, and medical non-compliance initially presenting to [facility] with a chief complaint of shortness of breath on 12/26. Pt found to have a BNP of 546, lactic acidosis and mild SAMMIE. Initial CXR showed bilateral infiltrates, and CTA was negative for PE but noted bilateral consolidation. Pt Intubated despite BIPAP and diuresis. Etiology determined to be due to decompensation attributed to CAP and acute decompensated heart failure. Patient's condition improved, and he was extubated to [place] on 12/27. ICU course complicated by AFib with RVR, with conversion to NSR following initiation of amiodarone. On 12/29, he was downgraded to the medical floor, however shortly after transfer he developed respiratory distress with associated hypoxia, as well as hypotension. He was transitioned to BIPAP and transferred back to the ICU, where he was subsequently re-intubated. Patient transferred to [facility] for management of acute hypoxic and hypercapnic respiratory failure due to suspected flash pulmonary edema. 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 systolic Heart Failure, EF 25-29% - NYHA III #Hx of CAD s/p CABG x2V, multiple PCIs #Hx of Ischemic Cardiomyopathy #Flash Pulmonary Edema #Acute Hypoxic and Hypercapnic Respiratory Failure s/p intubation #Vasogenic Shock #Atrial Fibrillation #LBBB with QRS 160ms>> S/p ASSOCIATE SOFTWARE ENGINEER-D placement #Acute Kidney Injury #Transaminitis #Anemia Plan: -Presented for Acute Hypoxic and Hypercapnic Respiratory Failure s/p intubation likely 2/2 flash pulmonary edema -EKG and Trop reviewed -TTE 12/30 showed EF 25-29%, RVSP increased, mod MR, hypokinesis of the basal-mid inferoseptal, mid anterior, mid anteroseptal, and apical septal rubin noted -LBBB and QRS >160ms with EF 25-29%, -S/p ASSOCIATE SOFTWARE ENGINEER-D placement on 01/02/2024 -Continue Minocycline 100 mg twice daily 5 days -Wean vent as tolerated -Off vasopressors -Diuresis as tolerated -monitor hemodynamics, tele, and I/Os - Planning for extubation today - Discussed with Dr. Segal -- SUBJECTIVE -- CHIEF COMPLAINT: Seen and examined the patient at bedside. Status post ASSOCIATE SOFTWARE ENGINEER-D. Intubated. Stopping Bumex gtt. -- EXAM -- VITALS (01/02 10:09 - 01/03 10:09): Temperature F: 98.1 (98.1 - 98.2) Pulse Rate: 80 (60 - 82) Respiratory rate: 13 (8 - 29) Blood pressure: 89/54 (79/51 - 113/145) Blood pressure source: Arterial IOS (01/02 07:00-01/03 07:00): Net-1,086.30 Intake1,568.70 Output2,655 EXAM: General Intubated and sedated Head Normocephalic, atraumatic. Eyes conjunctiva and sclera clear, without nystagmus, lids normal Nose No deformity. Mouth Oropharynx without deformities or lesions, normal mucosa. Neck Supple Chest CABG surgery scar+, S/p CRTD placement Lungs Decreased lung sounds on bilateral basals Heart S1 S2 rhythmic Abdomen Soft, non-tender. Musculoskeletal No deformity. Extremities No edema. Neurological Intubated and sedated Pulses Pulses normal in all extremities. -- DATA -- MEDICATIONS dexmedeTOMIDine in 0.9 % NaCL 400 MCG IV TITRATE MAGNESIUM SULFATE 4 G IV ASDIR (PRN) DEXTROSE 50%-WATER 25 ML IV ASDIR PRN bisacodyL 10 MG RECTAL DAILY PRN MAGNESIUM SULFATE 2 GM IV ASDIR (PRN) ESCITALOPRAM 20 MG FEED-TUBE DAILY SODIUM CHLORIDE 100 mL BAG with/in BUMETANIDE 60 ML IV .Q20H CALCIUM GLUC IN NACL, ISO-OSM 2 GM IV ASDIR PRN DOCUSATE SODIUM 200 MG FEED-TUBE 0900 (PRN) PREGABALIN 50 MG FEED-TUBE BID DOCUSATE SODIUM 200 MG PO DAILY HYDROcodone BITARTRATE/APAP 1 TAB FEED-TUBE Q6H PRN methocarbamoL 750 MG FEED-TUBE TID POTASSIUM CHLORIDE 20 MEQ PO ASDIR PRN DOXYCYCLINE MONOHYDRATE 100 MG PO Q12HR HYDROmorphone HCL 0.5 MG IV Q3H PRN ENOXAPARIN SODIUM 40 MG SUBQ DAILY MUPIROCIN 1 APPLIC NASAL BID MELATONIN 6 MG PO BEDTIME GLUCAGON 1 MG IM ASDIR PRN FOLIC ACID 1 MG FEED-TUBE DAILY ASPIRIN 81 MG FEED-TUBE DAILY INSULIN LISPRO LOW DOSE SS SUBQ Q6HR SODIUM PHOSPHATE with/in SODIUM CHLORIDE 0.9% 30 MM IV ASDIR (PRN) propofoL 1000 MG IV TITRATE SOD BIPHOS/POT PHOSPHATE 2 PKT PO ASDIR PRN HYDROcodone BITARTRATE/APAP 1 TAB FEED-TUBE Q6H PRN polyethylene glycoL 3350 1 PKT PO DAILY IPRATROPIUM/ALBUTEROL SULFATE 3 ML NEB RTQ6H TICAGRELOR 90 MG PO Q12HR AMIODARONE HCL 400 MG FEED-TUBE Q12HR POTASSIUM CHLORIDE IN WATER 10 MEQ IV ASDIR (PRN) ACETAMINOPHEN 650 MG FEED-TUBE Q6H PRN SODIUM PHOSPHATE with/in SODIUM CHLORIDE 0.9% 20 MM IV ASDIR (PRN) HALOPERIDOL LACTATE 5 MG IV Q6H PRN LORazepam 1 MG IV Q6H PRN THIAMINE HCL 100 MG FEED-TUBE DAILY (Held) METOPROLOL TARTRATE 12.5 MG FEED-TUBE Q12HR ATORVASTATIN CALCIUM 80 MG FEED-TUBE BEDTIME LAB RESULTS VENOUS BLOOD GAS (01/04/24 05:36) VENOUS BLOOD GAS PH 7.43 VENOUS BLOOD GAS PCO2 47.6 VENOUS BLOOD GAS PO2 32.3 VBG HCO3 31 VBG BASE EXCESS 5.7 VENOUS BLOOD GAS O2 SAT 62 VENOUS BLOOD GAS TYPE Venous VENOUS BLOOD GAS FIO2 60.0 VBG VENT MODE NC PHOS (01/04/24 05:33) PHOSPHOROUS 4.2 CBC W/AUTO DIFF (01/04/24 05:33) WHITE BLOOD CELL 10.8 RED BLOOD CELL 4.13 L HEMOGLOBIN 12.5L L HEMATOCRIT 39.1L L MEAN CELL VOLUME 94.7 H MEAN CELL HGB 30.3 MEAN CELL HGB CONCENTRATION 32.0 L RED CELL DISTRIBUTION WIDTH 16.5 PLATELET COUNT 293 MEAN PLATELET VOLUME 10.2 NEUTROPHIL % 77.1 H LYMPHOCYTE % 10.7 L MONOCYTE % 10.1 H EOSINOPHIL % 1.0 BASOPHIL % 0.4 NEUTROPHIL # 8.29 H LYMPHOCYTE # 1.15 MONOCYTE # 1.09 H EOSINOPHIL # 0.11 BASOPHIL # 0.04 BLOOD GAS W/ELECTROLYTES (01/04/24 05:33) ARTERIAL BLOOD GAS PH 7.47 H ARTERIAL BLOOD GAS PCO2 42.2 ARTERIAL BLOOD GAS PO2 90.4 BICARBONATE TOTAL HCO3 30.1 H BASE EXCESS 5.8 H ABG O2 SATURATION 97.3 ARTERIAL FIO2 60.0 ABG VENT MODE NASAL CANNULA ALLENS TEST NOT APPLICABLE SODIUM (POC) 144 POTASSIUM (POC) 3.89 CHLORIDE (ARTERIAL) 106 GLUCOSE 144 H IONIZED CALCIUM 1.14 POC LACTIC ACID 1.96 TOTAL HGB 13.8 OXYHEMOGLOBIN 96.3 CARBOXYHEMOGLOBIN 0.5 METHEMOGLOBIN <0.8 HHb 2.7 TCO2 ARTERIAL 31.4 H MAG (01/04/24 05:33) MAGNESIUM 2.3 COMPREHENSIVE METABOLIC PANEL (01/04/24 05:33) SODIUM 145 POTASSIUM 3.8 CHLORIDE 108 H CARBON DIOXIDE 29 GLUCOSE 134 H BLOOD UREA NITROGEN 40 H GLOMERULAR FILTRATION RATE 48 L CREATININE 1.60 H TOTAL PROTEIN 7.2 ALBUMIN 4.5 CALCIUM 9.4 BILIRUBIN TOTAL 0.4 SGOT/AST 42 H SGPT/ALT 50 H ALKALINE PHOSPHATASE 92.0 PTT (01/04/24 05:32) THROMBOPLASTIN TIME PARTIAL 27.6 PROTHROMBIN TIME (01/04/24 05:32) PROTHROMBIN TIME PATIENT 14.3 H INTERNATIONAL NORMAL RATIO 1.28 H FIB (01/04/24 05:32) FIBRINOGEN 868 H BLOOD GAS W/ELECTROLYTES (01/04/24 00:03) ARTERIAL BLOOD GAS PH 7.49 H ARTERIAL BLOOD GAS PCO2 39.3 ARTERIAL BLOOD GAS PO2 99.5 H BICARBONATE TOTAL HCO3 29.2 H BASE EXCESS 5.5 H ABG O2 SATURATION 97.6 ARTERIAL FIO2 60.0 ABG VENT MODE NASAL CANNULA ALLENS TEST NOT APPLICABLE SODIUM (POC) 146 POTASSIUM (POC) 3.93 CHLORIDE (ARTERIAL) 105 GLUCOSE 145 H IONIZED CALCIUM 1.14 POC LACTIC ACID 1.92 TOTAL HGB 13.8 OXYHEMOGLOBIN 96.9 CARBOXYHEMOGLOBIN 0.2 METHEMOGLOBIN <0.8 HHb 2.4 TCO2 ARTERIAL 30.4 H BLOOD GAS W/ELECTROLYTES (01/03/24 22:27) ARTERIAL BLOOD GAS PH 7.46 H ARTERIAL BLOOD GAS PCO2 37.2 ARTERIAL BLOOD GAS PO2 127.8 H BICARBONATE TOTAL HCO3 25.6 H BASE EXCESS 1.9 ABG O2 SATURATION 98.6 ARTERIAL FIO2 70.0 ABG VENT MODE Ventilator ALLENS TEST NOT APPLICABLE SODIUM (POC) 144 POTASSIUM (POC) 4.00 CHLORIDE (ARTERIAL) 103 GLUCOSE 132 H IONIZED CALCIUM 1.16 POC LACTIC ACID 1.38 TOTAL HGB 13.5 OXYHEMOGLOBIN 98.1 H CARBOXYHEMOGLOBIN 0.3 METHEMOGLOBIN <0.8 HHb 1.4 TCO2 ARTERIAL 26.8 BLOOD GAS W/ELECTROLYTES (01/03/24 22:18) ARTERIAL BLOOD GAS PH 7.47 H ARTERIAL BLOOD GAS PCO2 44.0 BICARBONATE TOTAL HCO3 31.2 H BASE EXCESS 6.7 H ABG O2 SATURATION 98.4 ARTERIAL FIO2 70.0 ABG VENT MODE Ventilator ALLENS TEST NOT APPLICABLE SODIUM (POC) 139 POTASSIUM (POC) 4.00 CHLORIDE (ARTERIAL) 103 GLUCOSE 144 H IONIZED CALCIUM 1.16 POC LACTIC ACID 1.82 TOTAL HGB 13.7 OXYHEMOGLOBIN 97.7 CARBOXYHEMOGLOBIN 0.2 METHEMOGLOBIN <0.8 HHb 1.6 TCO2 ARTERIAL 32.6 H BLOOD GAS W/ELECTROLYTES (01/03/24 20:15) ARTERIAL BLOOD GAS PCO2 37.6 ARTERIAL BLOOD GAS PO2 127.9 H ABG O2 SATURATION 98.7 ARTERIAL FIO2 70.0 ABG VENT MODE Ventilator ALLENS TEST NOT APPLICABLE SODIUM (POC) 146 POTASSIUM (POC) 3.97 CHLORIDE (ARTERIAL) 103 GLUCOSE 137 H IONIZED CALCIUM 1.17 POC LACTIC ACID 1.89 TOTAL HGB 13.6 OXYHEMOGLOBIN 98.0 CARBOXYHEMOGLOBIN 0.6 METHEMOGLOBIN <0.8 HHb 1.3 GLU BED (01/03/24 18:00) GLUBED 101 PHOS (01/03/24 15:52) PHOSPHOROUS 4.0 MAG (01/03/24 15:52) MAGNESIUM 2.2 BASIC METABOLIC PANEL (01/03/24 15:52) SODIUM 146H H POTASSIUM 4.0 CHLORIDE 106 CARBON DIOXIDE 30 GLUCOSE 128H H BLOOD UREA NITROGEN 30H H GLOMERULAR FILTRATION RATE >=60 max estimate CREATININE 1.10 CALCIUM 9.4 BLOOD GAS W/ELECTROLYTES (01/03/24 14:23) ARTERIAL BLOOD GAS PH 7.51 H ARTERIAL BLOOD GAS PCO2 39.4 ARTERIAL BLOOD GAS PO2 78.8 L BICARBONATE TOTAL HCO3 30.8 H BASE EXCESS 7.3 H ABG O2 SATURATION 95.6 ARTERIAL FIO2 70.0 ABG VENT MODE Ventilator ALLENS TEST NOT APPLICABLE SODIUM (POC) 143 POTASSIUM (POC) 4.07 CHLORIDE (ARTERIAL) 103 GLUCOSE 138 H IONIZED CALCIUM 1.17 POC LACTIC ACID 1.82 TOTAL HGB 13.9 OXYHEMOGLOBIN 95.2 CARBOXYHEMOGLOBIN 0.3 METHEMOGLOBIN <0.8 HHb 4.4 TCO2 ARTERIAL 32.0 H VENOUS BLOOD GAS (01/03/24 14:20) VENOUS BLOOD GAS PH 7.44 VENOUS BLOOD GAS PCO2 50.4 VENOUS BLOOD GAS PO2 29.7 VBG HCO3 34 VBG BASE EXCESS 7.9 VENOUS BLOOD GAS O2 SAT 52 VENOUS BLOOD GAS TYPE Venous VENOUS BLOOD GAS FIO2 70.0 VBG VENT MODE Ventilator GLU BED (01/03/24 11:48) GLUBED 106 H BLOOD GAS W/ELECTROLYTES (01/03/24 11:46) ARTERIAL BLOOD GAS PH 7.48 H ARTERIAL BLOOD GAS PCO2 42.2 ARTERIAL BLOOD GAS PO2 80.1 BICARBONATE TOTAL HCO3 30.8 H BASE EXCESS 6.6 H ABG O2 SATURATION 95.9 ARTERIAL FIO2 70.0 ABG VENT MODE Ventilator ALLENS TEST NOT APPLICABLE SODIUM (POC) 144 POTASSIUM (POC) 3.92 CHLORIDE (ARTERIAL) 102 GLUCOSE 134 H IONIZED CALCIUM 1.19 POC LACTIC ACID 1.74 TOTAL HGB 14.0 OXYHEMOGLOBIN 95.1 CARBOXYHEMOGLOBIN 0.4 METHEMOGLOBIN <0.8 HHb 4.1 TCO2 ARTERIAL 32.1 H VENOUS BLOOD GAS (01/03/24 11:43) VENOUS BLOOD GAS PH 7.42 VENOUS BLOOD GAS PCO2 55.2 VENOUS BLOOD GAS PO2 28.7 VBG HCO3 35 VBG BASE EXCESS 8.2 VENOUS BLOOD GAS O2 SAT 48 VENOUS BLOOD GAS TYPE Venous VENOUS BLOOD GAS FIO2 70.0 VBG VENT MODE Ventilator BLOOD GAS W/ELECTROLYTES (01/03/24 10:16) ARTERIAL BLOOD GAS PH 7.48 H ARTERIAL BLOOD GAS PCO2 41.1 ARTERIAL BLOOD GAS PO2 73.5 L BICARBONATE TOTAL HCO3 29.7 H BASE EXCESS 5.7 H ABG O2 SATURATION 95.1 ARTERIAL FIO2 70.0 ABG VENT MODE Ventilator ALLENS TEST NOT APPLICABLE SODIUM (POC) 146 POTASSIUM (POC) 4.01 CHLORIDE (ARTERIAL) 101 GLUCOSE 132 H IONIZED CALCIUM 1.19 POC LACTIC ACID 1.65 TOTAL HGB 14.2 OXYHEMOGLOBIN 94.5 CARBOXYHEMOGLOBIN 0.2 METHEMOGLOBIN <0.8 HHb 4.9 TCO2 ARTERIAL 31.0 H COMPREHENSIVE METABOLIC PANEL (01/03/24 10:10) SODIUM 142 POTASSIUM 3.8 CHLORIDE 102 CARBON DIOXIDE 31 GLUCOSE 124 H BLOOD UREA NITROGEN 28 H GLOMERULAR FILTRATION RATE >=60 max estimate CREATININE 1.10 TOTAL PROTEIN 7.3 ALBUMIN 4.6 CALCIUM 9.6 BILIRUBIN TOTAL 0.3 SGOT/AST 39 H SGPT/ALT 55 H ALKALINE PHOSPHATASE 93.0 CBC W/AUTO DIFF (01/03/24 10:10) WHITE BLOOD CELL 9.2 RED BLOOD CELL 4.31 L HEMOGLOBIN 12.9L L HEMATOCRIT 40.5L L MEAN CELL VOLUME 94.0 MEAN CELL HGB 29.9 MEAN CELL HGB CONCENTRATION 31.9 L RED CELL DISTRIBUTION WIDTH 16.3 PLATELET COUNT 257 MEAN PLATELET VOLUME 9.5 NEUTROPHIL % 74.3 LYMPHOCYTE % 13.6 L MONOCYTE % 9.3 EOSINOPHIL % 1.7 BASOPHIL % 0.4 NEUTROPHIL # 6.82 LYMPHOCYTE # 1.25 MONOCYTE # 0.85 H EOSINOPHIL # 0.16 BASOPHIL # 0.04 MAG (01/03/24 10:10) MAGNESIUM 2.2 PHOS (01/03/24 10:10) PHOSPHOROUS 4.5 at 1202 at 1202 ATTENTION *EDITS and/or ADDENDA must be made in Patient Keeper for this note. * * Edits and ammendments created in [facility] are not visible * * in Patient Keeper or the legal medical record ([facility]PF). * RPT #: [id number] END OF REPORT [facility] 2024-01-03 18:04:00 [facility] ([facility]) ElectroPhys. Progress Notes REPORT #: [id number] REPORT STATUS: Signed DATE: 01/03/24 TIME: 1803 PATIENT: KOTA MONTES UNIT #: [id number] [facility] : 61 AGE: 63 SEX: M ATTEND: Parvin Salcido DO ADM AUTHOR: Nhan Shipman DO CF1 ATTENTION *EDITS and/or ADDENDA must be made in Patient Keeper for this note. * * Edits and ammendments created in [employer] are not visible * * in Patient Keeper or the legal medical record (HPF). * -- CO-SIGNATURE -- COMMENTS: I obtained the history and performed the physical examination in supervision of Dr. Shipman. I concur with his findings with the following additions: NAEON. Low BP Gen: NAD, A Ox3 HEENT: anicteric sclera, MMM Neck: supple, no JVD CV: RRR, no m/r/g Lungs: CTAB Abd: soft, NTND Ext: no c/c/e Neuro: non-focal Psych: alert, appropriate, mood and affect normal s/p ASSOCIATE SOFTWARE ENGINEER-D w/Dr. Parker Increase pacing LRL to 80 Time spent on patient care: I spent > 30 minutes on patient care, including 15 minutes spent jointly with Dr. Shipman. > 50% of time spent on counseling/coordination of care. Signed in PatientKeeper by ANNABELLE DE JESUS MD on 01/05/24 at 14:17 -- ASSESSMENT AND PLAN -- GENERAL ASSESSMENT: Patient is a 63-year-old male with PMH notable for CAD s/p 2V CAB (06/25) and PCI (06, 06/24, 12/24, 07/25), ischemic cardiomyopathy (EF 25-29%), HTN, HLD, h/o ETOH abuse, tobacco abuse, anxiety/depression, and medical non-compliance initially presenting to [facility] with a chief complaint of shortness of breath on 12/26. Patient transferred to [facility] for management of acute hypoxic and hypercapnic respiratory failure. Patient was consulted to EP for BiV ICD placement. Dx CAD s/p CABG and multiple PCI's Ischemic cardiomyopathy (EF 25-29%) LBBB AHRF Intubated, on sedation EKG NSR, LBBB QRS more than 150 ms TTE EF 20-24% CABG on 06/2023 Fever overnight 100 and 100 99.2 this morning No leukocytosis A/P - s/p ASSOCIATE SOFTWARE ENGINEER-D 01/01,s/p interrogation showing good function -continue Minocycline 100 mg twice daily 5 days -increase pacing to 80 to help with cardiac output -- SUBJECTIVE -- CHIEF COMPLAINT: vpaced at 60 this morning -- OBJECTIVE -- VITALS (01/01 18:04 - 01/02 18:04): Temperature F: 98.1 (97.3 - 98.1) Temperature source: Axillary Pulse Rate 80 (60 - 80) Respiratory rate: 19 (8 - 29) Blood pressure: 100/57 (79/47 - 176/150) Blood pressure source: Arterial I/Os (01/01 07:00 - 01/02 07:00): Net -1,363.30 Intake 1,866.70 Output 3,230 -EXAM- GENERAL: Intubated and sedated HEAD: Normocephalic, atraumatic. EYES: conjunctiva and sclera clear, without nystagmus, lids normal NOSE: No deformity. MOUTH: Oropharynx without deformities or lesions, normal mucosa. NECK: Supple CHEST: CABG surgery scar+, S/p CRTD placement LUNGS: Decreased lung sounds on bilateral basals HEART: S1 S2 rhythmic ABDOMEN: Soft, non-tender. MUSCULOSKELETAL: No deformity. EXTREMITIES: No edema. NEUROLOGICAL: Intubated and sedated PULSES: Pulses normal in all extremities. -- DATA -- MEDICATIONS dexmedeTOMIDine in 0.9 % NaCL 400 MCG IV TITRATE MAGNESIUM SULFATE 4 G IV ASDIR (PRN) DEXTROSE 50%-WATER 25 ML IV ASDIR PRN bisacodyL 10 MG RECTAL DAILY PRN MAGNESIUM SULFATE 2 GM IV ASDIR (PRN) ESCITALOPRAM 20 MG FEED-TUBE DAILY SODIUM CHLORIDE 100 mL BAG with/in BUMETANIDE 60 ML IV .Q20H CALCIUM GLUC IN NACL, ISO-OSM 2 GM IV ASDIR PRN DOCUSATE SODIUM 200 MG FEED-TUBE 0900 (PRN) PREGABALIN 50 MG FEED-TUBE BID DOCUSATE SODIUM 200 MG PO DAILY HYDROcodone BITARTRATE/APAP 1 TAB FEED-TUBE Q6H PRN methocarbamoL 750 MG FEED-TUBE TID POTASSIUM CHLORIDE 20 MEQ PO ASDIR PRN DOXYCYCLINE MONOHYDRATE 100 MG PO Q12HR HYDROmorphone HCL 0.5 MG IV Q3H PRN ENOXAPARIN SODIUM 40 MG SUBQ DAILY MUPIROCIN 1 APPLIC NASAL BID MELATONIN 6 MG PO BEDTIME GLUCAGON 1 MG IM ASDIR PRN FOLIC ACID 1 MG FEED-TUBE DAILY ASPIRIN 81 MG FEED-TUBE DAILY INSULIN LISPRO LOW DOSE SS SUBQ Q6HR SODIUM PHOSPHATE with/in SODIUM CHLORIDE 0.9% 30 MM IV ASDIR (PRN) propofoL 1000 MG IV TITRATE SOD BIPHOS/POT PHOSPHATE 2 PKT PO ASDIR PRN HYDROcodone BITARTRATE/APAP 1 TAB FEED-TUBE Q6H PRN polyethylene glycoL 3350 1 PKT PO DAILY IPRATROPIUM/ALBUTEROL SULFATE 3 ML NEB RTQ6H TICAGRELOR 90 MG PO Q12HR AMIODARONE HCL 400 MG FEED-TUBE Q12HR POTASSIUM CHLORIDE IN WATER 10 MEQ IV ASDIR (PRN) ACETAMINOPHEN 650 MG FEED-TUBE Q6H PRN SODIUM PHOSPHATE with/in SODIUM CHLORIDE 0.9% 20 MM IV ASDIR (PRN) HALOPERIDOL LACTATE 5 MG IV Q6H PRN LORazepam 1 MG IV Q6H PRN THIAMINE HCL 100 MG FEED-TUBE DAILY (Held) METOPROLOL TARTRATE 12.5 MG FEED-TUBE Q12HR ATORVASTATIN CALCIUM 80 MG FEED-TUBE BEDTIME LABS PHOS (01/03/24 15:52) PHOSPHOROUS 4.0 MAG (01/03/24 15:52) MAGNESIUM 2.2 BASIC METABOLIC PANEL (01/03/24 15:52) SODIUM 146H H POTASSIUM 4.0 CHLORIDE 106 CARBON DIOXIDE 30 GLUCOSE 128H H BLOOD UREA NITROGEN 30H H GLOMERULAR FILTRATION RATE >=60 max estimate CREATININE 1.10 CALCIUM 9.4 BLOOD GAS W/ELECTROLYTES (01/03/24 14:23) ARTERIAL BLOOD GAS PH 7.51 H ARTERIAL BLOOD GAS PCO2 39.4 ARTERIAL BLOOD GAS PO2 78.8 L BICARBONATE TOTAL HCO3 30.8 H BASE EXCESS 7.3 H ABG O2 SATURATION 95.6 ARTERIAL FIO2 70.0 ABG VENT MODE Ventilator ALLENS TEST NOT APPLICABLE SODIUM (POC) 143 POTASSIUM (POC) 4.07 CHLORIDE (ARTERIAL) 103 GLUCOSE 138 H IONIZED CALCIUM 1.17 POC LACTIC ACID 1.82 TOTAL HGB 13.9 OXYHEMOGLOBIN 95.2 CARBOXYHEMOGLOBIN 0.3 METHEMOGLOBIN <0.8 HHb 4.4 TCO2 ARTERIAL 32.0 H VENOUS BLOOD GAS (01/03/24 14:20) VENOUS BLOOD GAS PH 7.44 VENOUS BLOOD GAS PCO2 50.4 VENOUS BLOOD GAS PO2 29.7 VBG HCO3 34 VBG BASE EXCESS 7.9 VENOUS BLOOD GAS O2 SAT 52 VENOUS BLOOD GAS TYPE Venous VENOUS BLOOD GAS FIO2 70.0 VBG VENT MODE Ventilator GLU BED (01/03/24 11:48) GLUBED 106 H BLOOD GAS W/ELECTROLYTES (01/03/24 11:46) ARTERIAL BLOOD GAS PH 7.48 H ARTERIAL BLOOD GAS PCO2 42.2 ARTERIAL BLOOD GAS PO2 80.1 BICARBONATE TOTAL HCO3 30.8 H BASE EXCESS 6.6 H ABG O2 SATURATION 95.9 ARTERIAL FIO2 70.0 ABG VENT MODE Ventilator ALLENS TEST NOT APPLICABLE SODIUM (POC) 144 POTASSIUM (POC) 3.92 CHLORIDE (ARTERIAL) 102 GLUCOSE 134 H IONIZED CALCIUM 1.19 POC LACTIC ACID 1.74 TOTAL HGB 14.0 OXYHEMOGLOBIN 95.1 CARBOXYHEMOGLOBIN 0.4 METHEMOGLOBIN <0.8 HHb 4.1 TCO2 ARTERIAL 32.1 H VENOUS BLOOD GAS (01/03/24 11:43) VENOUS BLOOD GAS PH 7.42 VENOUS BLOOD GAS PCO2 55.2 VENOUS BLOOD GAS PO2 28.7 VBG HCO3 35 VBG BASE EXCESS 8.2 VENOUS BLOOD GAS O2 SAT 48 VENOUS BLOOD GAS TYPE Venous VENOUS BLOOD GAS FIO2 70.0 VBG VENT MODE Ventilator BLOOD GAS W/ELECTROLYTES (01/03/24 10:16) ARTERIAL BLOOD GAS PH 7.48 H ARTERIAL BLOOD GAS PCO2 41.1 ARTERIAL BLOOD GAS PO2 73.5 L BICARBONATE TOTAL HCO3 29.7 H BASE EXCESS 5.7 H ABG O2 SATURATION 95.1 ARTERIAL FIO2 70.0 ABG VENT MODE Ventilator ALLENS TEST NOT APPLICABLE SODIUM (POC) 146 POTASSIUM (POC) 4.01 CHLORIDE (ARTERIAL) 101 GLUCOSE 132 H IONIZED CALCIUM 1.19 POC LACTIC ACID 1.65 TOTAL HGB 14.2 OXYHEMOGLOBIN 94.5 CARBOXYHEMOGLOBIN 0.2 METHEMOGLOBIN <0.8 HHb 4.9 TCO2 ARTERIAL 31.0 H COMPREHENSIVE METABOLIC PANEL (01/03/24 10:10) SODIUM 142 POTASSIUM 3.8 CHLORIDE 102 CARBON DIOXIDE 31 GLUCOSE 124 H BLOOD UREA NITROGEN 28 H GLOMERULAR FILTRATION RATE >=60 max estimate CREATININE 1.10 TOTAL PROTEIN 7.3 ALBUMIN 4.6 CALCIUM 9.6 BILIRUBIN TOTAL 0.3 SGOT/AST 39 H SGPT/ALT 55 H ALKALINE PHOSPHATASE 93.0 CBC W/AUTO DIFF (01/03/24 10:10) WHITE BLOOD CELL 9.2 RED BLOOD CELL 4.31 L HEMOGLOBIN 12.9L L HEMATOCRIT 40.5L L MEAN CELL VOLUME 94.0 MEAN CELL HGB 29.9 MEAN CELL HGB CONCENTRATION 31.9 L RED CELL DISTRIBUTION WIDTH 16.3 PLATELET COUNT 257 MEAN PLATELET VOLUME 9.5 NEUTROPHIL % 74.3 LYMPHOCYTE % 13.6 L MONOCYTE % 9.3 EOSINOPHIL % 1.7 BASOPHIL % 0.4 NEUTROPHIL # 6.82 LYMPHOCYTE # 1.25 MONOCYTE # 0.85 H EOSINOPHIL # 0.16 BASOPHIL # 0.04 MAG (01/03/24 10:10) MAGNESIUM 2.2 PHOS (01/03/24 10:10) PHOSPHOROUS 4.5 GLU BED (01/03/24 06:40) GLUBED 100 BLOOD GAS W/ELECTROLYTES (01/03/24 04:12) ARTERIAL BLOOD GAS PH 7.47 H ARTERIAL BLOOD GAS PCO2 42.4 ARTERIAL BLOOD GAS PO2 72.6 L BICARBONATE TOTAL HCO3 30.4 H BASE EXCESS 6.2 H ABG O2 SATURATION 93.9 L ARTERIAL FIO2 70.0 ABG VENT MODE Ventilator ALLENS TEST NOT APPLICABLE SODIUM (POC) 144 POTASSIUM (POC) 3.84 CHLORIDE (ARTERIAL) 101 GLUCOSE 133 H IONIZED CALCIUM 1.16 POC LACTIC ACID 1.65 TOTAL HGB 13.9 OXYHEMOGLOBIN 93.1 CARBOXYHEMOGLOBIN 0.6 METHEMOGLOBIN <0.8 HHb 6.1 TCO2 ARTERIAL 31.7 H CBC W/AUTO DIFF (01/03/24 03:55) WHITE BLOOD CELL 9.3 RED BLOOD CELL 4.17 L HEMOGLOBIN 12.8L L HEMATOCRIT 39.2L L MEAN CELL VOLUME 94.0 MEAN CELL HGB 30.7 MEAN CELL HGB CONCENTRATION 32.7 L RED CELL DISTRIBUTION WIDTH 16.4 PLATELET COUNT 263 MEAN PLATELET VOLUME 9.4 NEUTROPHIL % 72.6 LYMPHOCYTE % 15.6 L MONOCYTE % 9.3 EOSINOPHIL % 1.4 BASOPHIL % 0.5 NEUTROPHIL # 6.71 LYMPHOCYTE # 1.44 MONOCYTE # 0.86 H EOSINOPHIL # 0.13 BASOPHIL # 0.05 PHOS (01/03/24 03:55) PHOSPHOROUS 4.2 PROTHROMBIN TIME (01/03/24 03:55) PROTHROMBIN TIME PATIENT 13.0 H INTERNATIONAL NORMAL RATIO 1.16 H PTT (01/03/24 03:55) THROMBOPLASTIN TIME PARTIAL 30.0 MAG (01/03/24 03:55) MAGNESIUM 2.2 FIB (01/03/24 03:55) FIBRINOGEN 839 H COMPREHENSIVE METABOLIC PANEL (01/03/24 03:55) SODIUM 143 POTASSIUM 3.8 CHLORIDE 102 CARBON DIOXIDE 30 GLUCOSE 127 H BLOOD UREA NITROGEN 27 H GLOMERULAR FILTRATION RATE >=60 max estimate CREATININE 1.10 TOTAL PROTEIN 7.2 ALBUMIN 4.5 CALCIUM 9.4 BILIRUBIN TOTAL 0.4 SGOT/AST 48 H SGPT/ALT 59 H ALKALINE PHOSPHATASE 92.0 MAG (01/02/24 23:57) MAGNESIUM 2.2 BASIC METABOLIC PANEL (01/02/24 23:57) SODIUM 145 POTASSIUM 3.5 CHLORIDE 104 CARBON DIOXIDE 31 GLUCOSE 131H H BLOOD UREA NITROGEN 25H H GLOMERULAR FILTRATION RATE >=60 max estimate CREATININE 1.00 CALCIUM 8.6 L PHOS (01/02/24 23:57) PHOSPHOROUS 4.1 BLOOD GAS W/ELECTROLYTES (01/02/24 21:32) ARTERIAL BLOOD GAS PH 7.49 H ARTERIAL BLOOD GAS PCO2 44.3 ARTERIAL BLOOD GAS PO2 60.6 L BICARBONATE TOTAL HCO3 32.7 H BASE EXCESS 8.3 H ABG O2 SATURATION 90.9 L ARTERIAL FIO2 50.0 ABG VENT MODE Ventilator ALLENS TEST NOT APPLICABLE SODIUM (POC) 144 POTASSIUM (POC) 3.42 L CHLORIDE (ARTERIAL) 99 GLUCOSE 143 H IONIZED CALCIUM 1.15 POC LACTIC ACID 1.80 TOTAL HGB 13.9 OXYHEMOGLOBIN 90.3 L CARBOXYHEMOGLOBIN 0.3 METHEMOGLOBIN <0.8 HHb 9.0 TCO2 ARTERIAL 34.1 H Signed in PatientKeeper by Nhan Shipman on 01/03/24 at 18:06 Cosigned by ANNABELLE DE JESUS MD on 01/05/24 at 14:17 at 1417 at 1417 ATTENTION *EDITS and/or ADDENDA must be made in Patient Keeper for this note. * * Edits and ammendments created in [employer] are not visible * * in Patient Keeper or the legal medical record ([facility]). * RPT #: [id number] END OF REPORT [facility] 2024-01-03 13:11:00 [facility] ([facility]) Intensive Care Progress Note REPORT #: [id number] REPORT STATUS: Signed DATE: 01/03/24 TIME: 1311 PATIENT: KOTA MONTES UNIT #: [id number] ROOM #: [id number] BED: 1 : 61 AGE: 63 SEX: M ATTEND: Parvin Salcido DO ADM AUTHOR: Mandi Delarosa MD ATTENTION *EDITS and/or ADDENDA must be made in Patient Keeper for this note. * * Edits and ammendments created in [employer] are not visible * * in Patient Keeper or the legal medical record ([facility]). * -- ASSESSMENT AND PLAN -- HOSPITAL COURSE TO DATE: Patient is a 63-year-old male well-known to critical care with PMH notable for CAD s/p 2V CAB (06/25) and PCI ('06, 06/24, 12/24, 07/25), ischemic cardiomyopathy (EF 25-29%), HTN, HLD, h/o ETOH abuse, tobacco abuse, anxiety/depression, and medical non-compliance initially presenting to [facility] with a chief complaint of shortness of breath on 12/26. Patient transferred to [facility] for management of acute hypoxic and hypercapnic respiratory failure. 01/01: BiV ICD GENERAL ASSESSMENT: Plan: Neuro/Psych Agitation Acute Encephalopathy -Continue Precedex/propofol gtts while intubated, goal RASS 0 to -1 -wean as tolerated for extubation once ready from respiratory perspective -Multi-modal pain regimen Respiratory Acute Hypoxic and Hypercapnic Respiratory Failure Flash Pulmonary Edema -continues to have increased oxygen requirements, titrate FiO2 and PEEP on vent as needed -cont diuresis -Serial CXRs/ABGs, CPT, pulmonary hygiene, SBTs per protocol Cardiovascular Cardiogenic Shock Acute Decompensated Heart Failure H/o CAD/Ischemic Cardiomyopathy s/p BiV ICD Vasogenic Shock Atrial Fibrillation -TTE (12/26): EF 20-30%, severely reduced LV function, severe global hypokinesis, normal RV function -bedside bubble study negative (looking for contribution to hypoxia) -CI 1.5 today with PPM at 60. will increase rate to 80 and recalculate cardiac indeces -may need arterial duplex if extremity cyanosis not improved with increasing CO -Continue aggressive diuresis with Bumex gtt -Hold GDMT/antihypertensives given labile BP -Previously in AFib with RVR, now NSR, continue amiodarone PO -DAPT/statin given extensive h/o CAD -Cardiology and EP following Gastrointestinal/Nutrition Acute Shock Liver -placing Doboff and will start feeds -SUP, bowel regimen Renal Acute Kidney Injury Volume Overload -Continue diuresis with bumex gtt, monitor renal function -Electrolyte protocol, maintain K >4.0, Phos >3.0, Mg >2.0, Ca >1.1 Infectious Disease -Completed course of CAP at OSH, currently no concerns for infection -Hold empiric abx, monitor fever curve Endocrine -SSI PRN, maintain goal BS 140-180, hypoglycemia protocol HEME Acute Blood Loss Anemia -Acute blood loss anemia, currently without evidence of bleeding -Transfuse for goal Hgb >7.0, platelets >10k or 20k with bleeding, and fibrinogen >150 MSK -PT/OT once extubated PPX -DVT: LSQ -GI: PPI QD GOC -Code: Full per surrogate medical decision-maker () -Advance Care Planning: None per Medications reviewed with ICU pharmacist Patient seen and examined. History and clinical course reviewed since last examination. Patient is critically ill and at risk of imminent life threatening injury, organ failure, or . -- SUBJECTIVE -- PATIENT NARRATIVE: Overnight Events: increased oxygen requirements overnight, received BiV ICD yesterday. Today Cardiac Index 1.5, cyanosis of hands 10 System, 2 point ROS negative except for above. -- OBJECTIVE -- VITALS (01/01 13:11 - 01/02 13:11): Temperature F: 97.8 (97.3 - 98.2) Temperature source: Axillary Pulse Rate 67 (60 - 117) Respiratory rate: 22 (10 - 29) Blood pressure: 101/57 (85/45 - 176/150) Blood pressure source: Arterial I/Os (01/01 07:00 - 01/02 07:00): Net -1,363.30 Intake 1,866.70 Output 3,230 -- DATA -- MEDICATIONS dexmedeTOMIDine in 0.9 % NaCL 400 MCG IV TITRATE MAGNESIUM SULFATE 4 G IV ASDIR (PRN) DEXTROSE 50%-WATER 25 ML IV ASDIR PRN bisacodyL 10 MG RECTAL DAILY PRN MAGNESIUM SULFATE 2 GM IV ASDIR (PRN) ESCITALOPRAM 20 MG FEED-TUBE DAILY SODIUM CHLORIDE 100 mL BAG with/in BUMETANIDE 60 ML IV .Q20H CALCIUM GLUC IN NACL, ISO-OSM 2 GM IV ASDIR PRN DOCUSATE SODIUM 200 MG FEED-TUBE 0900 (PRN) PREGABALIN 50 MG FEED-TUBE BID DOCUSATE SODIUM 200 MG PO DAILY HYDROcodone BITARTRATE/APAP 1 TAB FEED-TUBE Q6H PRN methocarbamoL 750 MG FEED-TUBE TID POTASSIUM CHLORIDE 20 MEQ PO ASDIR PRN DOXYCYCLINE MONOHYDRATE 100 MG PO Q12HR HYDROmorphone HCL 0.5 MG IV Q3H PRN ENOXAPARIN SODIUM 40 MG SUBQ DAILY MUPIROCIN 1 APPLIC NASAL BID MELATONIN 6 MG PO BEDTIME GLUCAGON 1 MG IM ASDIR PRN FOLIC ACID 1 MG FEED-TUBE DAILY ASPIRIN 81 MG FEED-TUBE DAILY INSULIN LISPRO LOW DOSE SS SUBQ Q6HR SODIUM PHOSPHATE with/in SODIUM CHLORIDE 0.9% 30 MM IV ASDIR (PRN) propofoL 1000 MG IV TITRATE SOD BIPHOS/POT PHOSPHATE 2 PKT PO ASDIR PRN HYDROcodone BITARTRATE/APAP 1 TAB FEED-TUBE Q6H PRN polyethylene glycoL 3350 1 PKT PO DAILY IPRATROPIUM/ALBUTEROL SULFATE 3 ML NEB RTQ6H TICAGRELOR 90 MG PO Q12HR AMIODARONE HCL 400 MG FEED-TUBE Q12HR POTASSIUM CHLORIDE IN WATER 10 MEQ IV ASDIR (PRN) ACETAMINOPHEN 650 MG FEED-TUBE Q6H PRN SODIUM PHOSPHATE with/in SODIUM CHLORIDE 0.9% 20 MM IV ASDIR (PRN) HALOPERIDOL LACTATE 5 MG IV Q6H PRN LORazepam 1 MG IV Q6H PRN THIAMINE HCL 100 MG FEED-TUBE DAILY (Held) METOPROLOL TARTRATE 12.5 MG FEED-TUBE Q12HR ATORVASTATIN CALCIUM 80 MG FEED-TUBE BEDTIME LABS GLU BED (01/03/24 11:48) GLUBED 106 H BLOOD GAS W/ELECTROLYTES (01/03/24 11:46) ARTERIAL BLOOD GAS PH 7.48 H ARTERIAL BLOOD GAS PCO2 42.2 ARTERIAL BLOOD GAS PO2 80.1 BICARBONATE TOTAL HCO3 30.8 H BASE EXCESS 6.6 H ABG O2 SATURATION 95.9 ARTERIAL FIO2 70.0 ABG VENT MODE Ventilator ALLENS TEST NOT APPLICABLE SODIUM (POC) 144 POTASSIUM (POC) 3.92 CHLORIDE (ARTERIAL) 102 GLUCOSE 134 H IONIZED CALCIUM 1.19 POC LACTIC ACID 1.74 TOTAL HGB 14.0 OXYHEMOGLOBIN 95.1 CARBOXYHEMOGLOBIN 0.4 METHEMOGLOBIN <0.8 HHb 4.1 TCO2 ARTERIAL 32.1 H CBC W/AUTO DIFF (01/03/24 10:10) WHITE BLOOD CELL 9.2 RED BLOOD CELL 4.31 L HEMOGLOBIN 12.9L L HEMATOCRIT 40.5L L MEAN CELL VOLUME 94.0 MEAN CELL HGB 29.9 MEAN CELL HGB CONCENTRATION 31.9 L RED CELL DISTRIBUTION WIDTH 16.3 PLATELET COUNT 257 MEAN PLATELET VOLUME 9.5 NEUTROPHIL % 74.3 LYMPHOCYTE % 13.6 L MONOCYTE % 9.3 EOSINOPHIL % 1.7 BASOPHIL % 0.4 NEUTROPHIL # 6.82 LYMPHOCYTE # 1.25 MONOCYTE # 0.85 H EOSINOPHIL # 0.16 BASOPHIL # 0.04 MAG (01/03/24 10:10) MAGNESIUM 2.2 COMPREHENSIVE METABOLIC PANEL (01/03/24 10:10) SODIUM 142 POTASSIUM 3.8 CHLORIDE 102 CARBON DIOXIDE 31 GLUCOSE 124 H BLOOD UREA NITROGEN 28 H GLOMERULAR FILTRATION RATE >=60 max estimate CREATININE 1.10 TOTAL PROTEIN 7.3 ALBUMIN 4.6 CALCIUM 9.6 BILIRUBIN TOTAL 0.3 SGOT/AST 39 H SGPT/ALT 55 H ALKALINE PHOSPHATASE 93.0 PHOS (01/03/24 10:10) PHOSPHOROUS 4.5 GLU BED (01/03/24 06:40) GLUBED 100 BLOOD GAS W/ELECTROLYTES (01/03/24 04:12) ARTERIAL BLOOD GAS PH 7.47 H ARTERIAL BLOOD GAS PCO2 42.4 ARTERIAL BLOOD GAS PO2 72.6 L BICARBONATE TOTAL HCO3 30.4 H BASE EXCESS 6.2 H ABG O2 SATURATION 93.9 L ARTERIAL FIO2 70.0 ABG VENT MODE Ventilator ALLENS TEST NOT APPLICABLE SODIUM (POC) 144 POTASSIUM (POC) 3.84 CHLORIDE (ARTERIAL) 101 GLUCOSE 133 H IONIZED CALCIUM 1.16 POC LACTIC ACID 1.65 TOTAL HGB 13.9 OXYHEMOGLOBIN 93.1 CARBOXYHEMOGLOBIN 0.6 METHEMOGLOBIN <0.8 HHb 6.1 TCO2 ARTERIAL 31.7 H CBC W/AUTO DIFF (01/03/24 03:55) WHITE BLOOD CELL 9.3 RED BLOOD CELL 4.17 L HEMOGLOBIN 12.8L L HEMATOCRIT 39.2L L MEAN CELL VOLUME 94.0 MEAN CELL HGB 30.7 MEAN CELL HGB CONCENTRATION 32.7 L RED CELL DISTRIBUTION WIDTH 16.4 PLATELET COUNT 263 MEAN PLATELET VOLUME 9.4 NEUTROPHIL % 72.6 LYMPHOCYTE % 15.6 L MONOCYTE % 9.3 EOSINOPHIL % 1.4 BASOPHIL % 0.5 NEUTROPHIL # 6.71 LYMPHOCYTE # 1.44 MONOCYTE # 0.86 H EOSINOPHIL # 0.13 BASOPHIL # 0.05 PROTHROMBIN TIME (01/03/24 03:55) PROTHROMBIN TIME PATIENT 13.0 H INTERNATIONAL NORMAL RATIO 1.16 H PHOS (01/03/24 03:55) PHOSPHOROUS 4.2 PTT (01/03/24 03:55) THROMBOPLASTIN TIME PARTIAL 30.0 MAG (01/03/24 03:55) MAGNESIUM 2.2 FIB (01/03/24 03:55) FIBRINOGEN 839 H COMPREHENSIVE METABOLIC PANEL (01/03/24 03:55) SODIUM 143 POTASSIUM 3.8 CHLORIDE 102 CARBON DIOXIDE 30 GLUCOSE 127 H BLOOD UREA NITROGEN 27 H GLOMERULAR FILTRATION RATE >=60 max estimate CREATININE 1.10 TOTAL PROTEIN 7.2 ALBUMIN 4.5 CALCIUM 9.4 BILIRUBIN TOTAL 0.4 SGOT/AST 48 H SGPT/ALT 59 H ALKALINE PHOSPHATASE 92.0 MAG (01/02/24 23:57) MAGNESIUM 2.2 BASIC METABOLIC PANEL (01/02/24 23:57) SODIUM 145 POTASSIUM 3.5 CHLORIDE 104 CARBON DIOXIDE 31 GLUCOSE 131H H BLOOD UREA NITROGEN 25H H GLOMERULAR FILTRATION RATE >=60 max estimate CREATININE 1.00 CALCIUM 8.6 L PHOS (01/02/24 23:57) PHOSPHOROUS 4.1 BLOOD GAS W/ELECTROLYTES (01/02/24 21:32) ARTERIAL BLOOD GAS PH 7.49 H ARTERIAL BLOOD GAS PCO2 44.3 ARTERIAL BLOOD GAS PO2 60.6 L BICARBONATE TOTAL HCO3 32.7 H BASE EXCESS 8.3 H ABG O2 SATURATION 90.9 L ARTERIAL FIO2 50.0 ABG VENT MODE Ventilator ALLENS TEST NOT APPLICABLE SODIUM (POC) 144 POTASSIUM (POC) 3.42 L CHLORIDE (ARTERIAL) 99 GLUCOSE 143 H IONIZED CALCIUM 1.15 POC LACTIC ACID 1.80 TOTAL HGB 13.9 OXYHEMOGLOBIN 90.3 L CARBOXYHEMOGLOBIN 0.3 METHEMOGLOBIN <0.8 HHb 9.0 TCO2 ARTERIAL 34.1 H GLU BED (01/02/24 17:25) GLUBED 147 H -- ATTESTATION -- TIME SPENT ON PATIENT CARE: - Critical Care: time spent apart from any procedure 50 minutes CARE ACTIVITIES / CARE COORDINATION: - I have reviewed the history and repeated the carias elements - I have seen and examined this patient - I have reviewed the progress in the clinical course since the last examination - I have discussed the patient's condition with other members of the care team Signed in PatientKeeper by MANDI DELAROSA MD on 01/03/24 at 13:23 at 1323 ATTENTION *EDITS and/or ADDENDA must be made in Patient Keeper for this note. * * Edits and ammendments created in [employer] are not visible * * in Patient Keeper or the legal medical record ([facility]). * RPT #: [id number] END OF REPORT [facility] 2024-01-03 11:11:00 [facility] ([facility]) Cardiology Progress Notes REPORT #: [id number] REPORT STATUS: Signed DATE: 01/03/24 TIME: 1111 PATIENT: KOTA MONTES UNIT #: [id number] ROOM #: P.[id number] BED: 1 : 61 AGE: 63 SEX: M ATTEND: Parvin Salcido DO ADM AUTHOR: Desiree Aragon MD CF1 ATTENTION *EDITS and/or ADDENDA must be made in Patient Keeper for this note. * * Edits and ammendments created in [employer] are not visible * * in Patient Keeper or the legal medical record ([facility]). * -- CO-SIGNATURE -- COMMENTS: I have personally seen and examined the patient independently, and reviewed the patient's history, exam, and all cardiac and laboratory data on 01/03/24. I agree with the history, physical, and the assessment and plan as outlined by Desiree Nelson MD, Cardiovascular Fellow. Signed in PatientKeeper by MALACHI FITZGERALD MD on 01/04/24 at 19:45 -- ASSESSMENT AND PLAN -- GENERAL ASSESSMENT: Mr. Montes is a 63 year old male with a PMH of CAD s/p 2V CAB (06/25) and PCI (, 06/24, 12/24, 07/25), ischemic cardiomyopathy (EF 25-29%), HTN, HLD, h/o ETOH abuse, tobacco abuse, anxiety/depression, and medical non-compliance initially presenting to [facility] with a chief complaint of shortness of breath on 12/26. Pt found to have a BNP of 546, lactic acidosis and mild SAMMIE. Initial CXR showed bilateral infiltrates, and CTA was negative for PE but noted bilateral consolidation. Pt Intubated despite BIPAP and diuresis. Etiology determined to be due to decompensation attributed to CAP and acute decompensated heart failure. Patient's condition improved, and he was extubated to [place] on 12/27. ICU course complicated by AFib with RVR, with conversion to NSR following initiation of amiodarone. On 12/29, he was downgraded to the medical floor, however shortly after transfer he developed respiratory distress with associated hypoxia, as well as hypotension. He was transitioned to BIPAP and transferred back to the ICU, where he was subsequently re-intubated. Patient transferred to [facility] for management of acute hypoxic and hypercapnic respiratory failure due to suspected flash pulmonary edema. 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 systolic Heart Failure, EF 25-29% - NYHA III #Hx of CAD s/p CABG x2V, multiple PCIs #Hx of Ischemic Cardiomyopathy #Flash Pulmonary Edema #Acute Hypoxic and Hypercapnic Respiratory Failure s/p intubation #Vasogenic Shock #Atrial Fibrillation #LBBB with QRS 160ms>> S/p ASSOCIATE SOFTWARE ENGINEER-D placement #Acute Kidney Injury #Transaminitis #Anemia Plan: -Presented for Acute Hypoxic and Hypercapnic Respiratory Failure s/p intubation likely 2/2 flash pulmonary edema -EKG and Trop reviewed -TTE 12/30 showed EF 25-29%, RVSP increased, mod MR, hypokinesis of the basal-mid inferoseptal, mid anterior, mid anteroseptal, and apical septal rubin noted -LBBB and QRS >160ms with EF 25-29%, -S/p ASSOCIATE SOFTWARE ENGINEER-D placement on 01/02/2024 -Continue Minocycline 100 mg twice daily 5 days -Wean vent as tolerated -Off vasopressors -Diuresis as tolerated -monitor hemodynamics, tele, and I/Os Discussed with Dr. Fitzgerald -- OBJECTIVE -- VITALS (01/01 11:11 - 01/02 11:11): Temperature F: 97.8 (97.3 - 98.7) Temperature source: Axillary Pulse Rate 60 (60 - 117) Respiratory rate: 15 (11 - 26) Blood pressure: 107/54 (88/45 - 176/150) Blood pressure source: Arterial I/Os (01/01 07:00 - 01/02 07:00): Net -1,363.30 Intake 1,866.70 Output 3,230 -EXAM- GENERAL: Intubated and sedated HEAD: Normocephalic, atraumatic. EYES: conjunctiva and sclera clear, without nystagmus, lids normal NOSE: No deformity. MOUTH: Oropharynx without deformities or lesions, normal mucosa. NECK: Supple CHEST: CABG surgery scar+, S/p CRTD placement LUNGS: Decreased lung sounds on bilateral basals HEART: S1 S2 rhythmic ABDOMEN: Soft, non-tender. MUSCULOSKELETAL: No deformity. EXTREMITIES: No edema. NEUROLOGICAL: Intubated and sedated PULSES: Pulses normal in all extremities. -- DATA -- MEDICATIONS MAGNESIUM SULFATE 4 G IV ASDIR (PRN) bisacodyL 10 MG RECTAL DAILY PRN MAGNESIUM SULFATE 2 GM IV ASDIR (PRN) ESCITALOPRAM 20 MG FEED-TUBE DAILY SODIUM CHLORIDE 100 mL BAG with/in BUMETANIDE 60 ML IV .Q20H CALCIUM GLUC IN NACL, ISO-OSM 2 GM IV ASDIR PRN PREGABALIN 50 MG FEED-TUBE BID HYDROcodone BITARTRATE/APAP 1 TAB FEED-TUBE Q6H PRN methocarbamoL 750 MG FEED-TUBE TID DOXYCYCLINE MONOHYDRATE 100 MG PO Q12HR HYDROmorphone HCL 0.5 MG IV Q3H PRN MUPIROCIN 1 APPLIC NASAL BID GLUCAGON 1 MG IM ASDIR PRN INSULIN LISPRO LOW DOSE SS SUBQ Q6HR SODIUM PHOSPHATE with/in SODIUM CHLORIDE 0.9% 30 MM IV ASDIR (PRN) SOD BIPHOS/POT PHOSPHATE 2 PKT PO ASDIR PRN IPRATROPIUM/ALBUTEROL SULFATE 3 ML NEB RTQ6H POTASSIUM CHLORIDE IN WATER 10 MEQ IV ASDIR (PRN) ACETAMINOPHEN 650 MG FEED-TUBE Q6H PRN SODIUM PHOSPHATE with/in SODIUM CHLORIDE 0.9% 20 MM IV ASDIR (PRN) HALOPERIDOL LACTATE 5 MG IV Q6H PRN dexmedeTOMIDine in 0.9 % NaCL 400 MCG IV TITRATE DEXTROSE 50%-WATER 25 ML IV ASDIR PRN DOCUSATE SODIUM 200 MG FEED-TUBE 0900 (PRN) DOCUSATE SODIUM 200 MG PO DAILY POTASSIUM CHLORIDE 20 MEQ PO ASDIR PRN MELATONIN 6 MG PO BEDTIME FOLIC ACID 1 MG FEED-TUBE DAILY ASPIRIN 81 MG FEED-TUBE DAILY propofoL 1000 MG IV TITRATE HYDROcodone BITARTRATE/APAP 1 TAB FEED-TUBE Q6H PRN polyethylene glycoL 3350 1 PKT PO DAILY TICAGRELOR 90 MG PO Q12HR AMIODARONE HCL 400 MG FEED-TUBE Q12HR ENOXAPARIN SODIUM 40 MG SUBQ Q12HR LORazepam 1 MG IV Q6H PRN THIAMINE HCL 100 MG FEED-TUBE DAILY (Held) METOPROLOL TARTRATE 12.5 MG FEED-TUBE Q12HR ATORVASTATIN CALCIUM 80 MG FEED-TUBE BEDTIME LABS CBC W/AUTO DIFF (01/03/24 10:10) WHITE BLOOD CELL 9.2 RED BLOOD CELL 4.31 L HEMOGLOBIN 12.9L L HEMATOCRIT 40.5L L MEAN CELL VOLUME 94.0 MEAN CELL HGB 29.9 MEAN CELL HGB CONCENTRATION 31.9 L RED CELL DISTRIBUTION WIDTH 16.3 PLATELET COUNT 257 MEAN PLATELET VOLUME 9.5 NEUTROPHIL % 74.3 LYMPHOCYTE % 13.6 L MONOCYTE % 9.3 EOSINOPHIL % 1.7 BASOPHIL % 0.4 NEUTROPHIL # 6.82 LYMPHOCYTE # 1.25 MONOCYTE # 0.85 H EOSINOPHIL # 0.16 BASOPHIL # 0.04 MAG (01/03/24 10:10) MAGNESIUM 2.2 COMPREHENSIVE METABOLIC PANEL (01/03/24 10:10) SODIUM 142 POTASSIUM 3.8 CHLORIDE 102 CARBON DIOXIDE 31 GLUCOSE 124 H BLOOD UREA NITROGEN 28 H GLOMERULAR FILTRATION RATE >=60 max estimate CREATININE 1.10 TOTAL PROTEIN 7.3 ALBUMIN 4.6 CALCIUM 9.6 BILIRUBIN TOTAL 0.3 SGOT/AST 39 H SGPT/ALT 55 H ALKALINE PHOSPHATASE 93.0 PHOS (01/03/24 10:10) PHOSPHOROUS 4.5 GLU BED (01/03/24 06:40) GLUBED 100 BLOOD GAS W/ELECTROLYTES (01/03/24 04:12) ARTERIAL BLOOD GAS PH 7.47 H ARTERIAL BLOOD GAS PCO2 42.4 ARTERIAL BLOOD GAS PO2 72.6 L BICARBONATE TOTAL HCO3 30.4 H BASE EXCESS 6.2 H ABG O2 SATURATION 93.9 L ARTERIAL FIO2 70.0 ABG VENT MODE Ventilator ALLENS TEST NOT APPLICABLE SODIUM (POC) 144 POTASSIUM (POC) 3.84 CHLORIDE (ARTERIAL) 101 GLUCOSE 133 H IONIZED CALCIUM 1.16 POC LACTIC ACID 1.65 TOTAL HGB 13.9 OXYHEMOGLOBIN 93.1 CARBOXYHEMOGLOBIN 0.6 METHEMOGLOBIN <0.8 HHb 6.1 TCO2 ARTERIAL 31.7 H CBC W/AUTO DIFF (01/03/24 03:55) WHITE BLOOD CELL 9.3 RED BLOOD CELL 4.17 L HEMOGLOBIN 12.8L L HEMATOCRIT 39.2L L MEAN CELL VOLUME 94.0 MEAN CELL HGB 30.7 MEAN CELL HGB CONCENTRATION 32.7 L RED CELL DISTRIBUTION WIDTH 16.4 PLATELET COUNT 263 MEAN PLATELET VOLUME 9.4 NEUTROPHIL % 72.6 LYMPHOCYTE % 15.6 L MONOCYTE % 9.3 EOSINOPHIL % 1.4 BASOPHIL % 0.5 NEUTROPHIL # 6.71 LYMPHOCYTE # 1.44 MONOCYTE # 0.86 H EOSINOPHIL # 0.13 BASOPHIL # 0.05 PROTHROMBIN TIME (01/03/24 03:55) PROTHROMBIN TIME PATIENT 13.0 H INTERNATIONAL NORMAL RATIO 1.16 H PHOS (01/03/24 03:55) PHOSPHOROUS 4.2 PTT (01/03/24 03:55) THROMBOPLASTIN TIME PARTIAL 30.0 MAG (01/03/24 03:55) MAGNESIUM 2.2 FIB (01/03/24 03:55) FIBRINOGEN 839 H COMPREHENSIVE METABOLIC PANEL (01/03/24 03:55) SODIUM 143 POTASSIUM 3.8 CHLORIDE 102 CARBON DIOXIDE 30 GLUCOSE 127 H BLOOD UREA NITROGEN 27 H GLOMERULAR FILTRATION RATE >=60 max estimate CREATININE 1.10 TOTAL PROTEIN 7.2 ALBUMIN 4.5 CALCIUM 9.4 BILIRUBIN TOTAL 0.4 SGOT/AST 48 H SGPT/ALT 59 H ALKALINE PHOSPHATASE 92.0 MAG (01/02/24 23:57) MAGNESIUM 2.2 BASIC METABOLIC PANEL (01/02/24 23:57) SODIUM 145 POTASSIUM 3.5 CHLORIDE 104 CARBON DIOXIDE 31 GLUCOSE 131H H BLOOD UREA NITROGEN 25H H GLOMERULAR FILTRATION RATE >=60 max estimate CREATININE 1.00 CALCIUM 8.6 L PHOS (01/02/24 23:57) PHOSPHOROUS 4.1 BLOOD GAS W/ELECTROLYTES (01/02/24 21:32) ARTERIAL BLOOD GAS PH 7.49 H ARTERIAL BLOOD GAS PCO2 44.3 ARTERIAL BLOOD GAS PO2 60.6 L BICARBONATE TOTAL HCO3 32.7 H BASE EXCESS 8.3 H ABG O2 SATURATION 90.9 L ARTERIAL FIO2 50.0 ABG VENT MODE Ventilator ALLENS TEST NOT APPLICABLE SODIUM (POC) 144 POTASSIUM (POC) 3.42 L CHLORIDE (ARTERIAL) 99 GLUCOSE 143 H IONIZED CALCIUM 1.15 POC LACTIC ACID 1.80 TOTAL HGB 13.9 OXYHEMOGLOBIN 90.3 L CARBOXYHEMOGLOBIN 0.3 METHEMOGLOBIN <0.8 HHb 9.0 TCO2 ARTERIAL 34.1 H GLU BED (01/02/24 17:25) GLUBED 147 H Signed in PatientKeeper by DESIREE ARAGON MD CF1 on 01/03/24 at 12:36 Cosigned by MALACHI FITZGERALD MD on 01/04/24 at 19:45 at 1945 at 194 ATTENTION *EDITS and/or ADDENDA must be made in Patient Keeper for this note. * * Edits and ammendments created in [facility] are not visible * * in Patient Keeper or the legal medical record ([facility]). * [facility] #: [id number] END OF REPORT [facility] 2024-01-02 14:04:00 [facility] ([facility]) Operative Report REPORT #: [id number] REPORT STATUS: Signed DATE: 01/02/24 TIME: 1404 PATIENT: KOTA MONTES UNIT #: [id number] ROOM #: P.0319 BED: 1 : 61 AGE: 63 SEX: M ATTEND: aPrvin Salcido DO ADM AUTHOR: Cristino Parker III, MD ATTENTION *EDITS and/or ADDENDA must be made in Patient Keeper for this note. * * Edits and ammendments created in [facility] are not visible * * in Patient Keeper or the legal medical record ([facility]). * -- OPERATION -- SURGERY START DATE/TIME: 2024-01-02 14:04 PRE-OPERATIVE DIAGNOSIS: See Description POST-OPERATIVE DIAGNOSIS: See Description NAME OF PROCEDURE: See Description SURGEON: Cristino Parker III, MD CURTAIN SUPERVISOR(S): See Description ANESTHESIA: See Description ESTIMATED BLOOD LOSS: 10 ml's FINDINGS: See Description SPECIMEN(S) REMOVED AND/OR ALTERED: See Description COMPLICATION(S): See Description -- DESCRIPTION -- DESCRIPTION OF TECHNIQUE/PROCEDURE: Magneto Repairer: Cristino Parker MD Fellow: None Referring Physician: Malachi Fitzgerald MD Date of Procedure: 01/02/2024 Patient Name: Kota Montes Patient Patient Date of : 1960 Facility: [facility] 12 Lead Rhythm and QRS Duration: sinus rhythm, LBBB 160 ms Indication: Primary Prevention Type of CM: Ischemic Duration of CM: >90days LVEF within the last 12 months: 25-29% Patient is Currently on Maximum Tolerated GDMT: Yes Implant Indication: Ischemic Cardiomyopathy (I25.5) Procedure Performed: Placement of a Biventricular ICD (+09128-X1, 68723) Procedure was performed utilizing moderate sedation with split doses of IV Versed and fentanyl administered by a nurse trained in conscious sedation under the direct supervision of the performing physician. TOTAL INTRA SERVICE TIME: 100 minutes. Throughout the procedure, the patient was monitored by radiology nurse. The patient's vital signs were stable throughout procedure, including cardiac rhythm and oxygen saturation. Neurological checks were also performed during the procedure. Complications: None Specimens Removed: None Grafts or Implants: None Estimated blood loss: Minimal Blood Administered: None Condition: Stable Procedure Details: The patient was brought to the electrophysiology suite in the fasting state and was prepped and draped in the usual sterile fashion. A Time Out was held and the following information was confirmed/verified: Patient Name Patient Date of Medical Record Number Procedure Type Laterality Pertinent Medical Comorbidities Allergies Recent Laboratory Values Recent Imaging Results Conscious sedation was obtained with intravenous Midazolam and Fentanyl and 2% Xylocaine was used as a local anesthetic. By the use of modified Seldinger technique and under direct ultrasound guidance of needle tip, three venipunctures were obtained in the axillary vein with a micropuncture needle and three 0.035" J-wires were introduced. An incision was made in the left pectoral area inferior to the clavicle. Using a combination of sharp and blunt dissection with electrocautery the incision was carried down to the level of the pectoralis fascia and a pocket was created above the pectoralis muscle. The previous J wires were then harvested and two peel-away vascular sheaths were then placed. A ventricular defibrillation electrode was placed in the apex of the right ventricle, adequate pacing and sensing was confirmed, the sheath was peeled away, and the lead was sewn into position with 0 silk pop-off suture. The coronary sinus was cannulated, and a venogram was performed with contrast using the coronary sinus catheter in the coronary sinus. A posterior lateral vein was identified. An LV lead was placed in a posterior lateral vein of the left ventricle, adequate pacing was confirmed, the sheath was peeled away, and the lead was sewn into position with 0 silk pop-off suture. An RA lead was placed in the right atrial appendage, adequate pacing was confirmed, the sheath was peeled away, and the lead was sewn into position with 0 silk suture. Copious amounts of antibiotic solution were then used to irrigate the pocket. The generator was then connected to the leads, adequate connections of all three leads to the generator were confirmed. Appropriate sensing, pacing impedance, shock impedance, and pacing thresholds were tested and verified through the device. Adequate hemostasis and lead placement were verified once again and then the pocket was closed with two layers of continuous 2.0 Vicryl sutures and 4.0 monocryl at the surface with Dermabond at skin level. The patient tolerated the procedure well. A sterile pressure dressing was applied. The patient's arm was immobilized and the patient was transferred from the lab in stable condition. CXR Minocycline 100mg PO bid x 5d Follow-up in 2 weeks for site check Cristino Parker MD Cardiac Electrophysiology Signed in PatientKeeper by Cristino Parker III, MD on 01/02/24 at 14:10 at 1410 ATTENTION *EDITS and/or ADDENDA must be made in Patient Keeper for this note. * * Edits and ammendments created in [facility] are not visible * * in Patient Keeper or the legal medical record (HPF). * [facility] #: [id number] END OF REPORT [facility] 2024-01-02 12:10:00 [facility] ([facility]) Cardiology Progress Notes REPORT #: [id number] REPORT STATUS: Signed DATE: 01/02/24 TIME: 1210 PATIENT: KOTA MONTES UNIT #: [id number] ROOM #: [id number] BED: 1 : 61 AGE: 63 SEX: M ATTEND: Parvin Salcido DO ADM AUTHOR: Desiree Aragon MD CF1 ATTENTION *EDITS and/or ADDENDA must be made in Patient Keeper for this note. * * Edits and ammendments created in [employer] are not visible * * in Patient Keeper or the legal medical record (HPF). * -- ASSESSMENT AND PLAN -- GENERAL ASSESSMENT: Patient is a 63-year-old male with PMH notable for CAD s/p 2V CAB (06/25) and PCI ('06, 06/24, 12/24, 07/25), ischemic cardiomyopathy (EF 25-29%), HTN, HLD, h/o ETOH abuse, tobacco abuse, anxiety/depression, and medical non-compliance initially presenting to [facility] with a chief complaint of shortness of breath on 12/26. Patient transferred to [facility] for management of acute hypoxic and hypercapnic respiratory failure. Patient was consulted to EP for BiV ICD placement. Dx CAD s/p CABG and multiple PCI's Ischemic cardiomyopathy (EF 25-29%) LBBB AHRF Intubated, on sedation EKG NSR, LBBB QRS more than 150 ms TTE EF 20-24% CABG on 06/2023 Fever overnight 100 and 100 99.2 this morning No leukocytosis A/P -ASSOCIATE SOFTWARE ENGINEER-D placement today -Will start Minocycline 100 mg twice daily 5 days -Will place dress pressor on the device -Will continue follow up Case was discussed with Dr. Parker -- OBJECTIVE -- VITALS (12/31 12:10 - 01/01 12:10): Temperature F: 99.2 (98.6 - 101.2) Temperature source: Oral Pulse Rate 68 (61 - 75) Respiratory rate: 15 (13 - 28) Blood pressure: 105/55 (88/49 - 228/167) Blood pressure source: Monitor I/Os (12/31 07:00 - 01/01 07:00): Net -4,291.20 Intake 2,348.80 Output 6,640 -EXAM- GENERAL: Intubated and sedated but awake HEAD: Normocephalic, atraumatic. EYES: conjunctiva and sclera clear, without nystagmus, lids normal NOSE: No deformity. MOUTH: Oropharynx without deformities or lesions, normal mucosa. NECK: Supple CHEST: CABG surgery scar+ LUNGS: Decreased lung sounds on bilateral basals HEART: S1 S2 rhythmic ABDOMEN: Soft, non-tender. MUSCULOSKELETAL: No deformity. EXTREMITIES: No edema. NEUROLOGICAL: No focal deficits, PULSES: Pulses normal in all extremities. -- DATA -- MEDICATIONS dexmedeTOMIDine in 0.9 % NaCL 400 MCG IV TITRATE MAGNESIUM SULFATE 4 G IV ASDIR (PRN) DEXTROSE 50%-WATER 25 ML IV ASDIR PRN bisacodyL 10 MG RECTAL DAILY PRN DOCUSATE SODIUM 200 MG PO DAILY MAGNESIUM SULFATE 2 GM IV ASDIR (PRN) ESCITALOPRAM 20 MG FEED-TUBE DAILY SODIUM CHLORIDE 100 mL BAG with/in BUMETANIDE 60 ML IV .Q20H CALCIUM GLUC IN NACL, ISO-OSM 2 GM IV ASDIR PRN PREGABALIN 50 MG FEED-TUBE BID HYDROcodone BITARTRATE/APAP 1 TAB FEED-TUBE Q6H PRN methocarbamoL 750 MG FEED-TUBE TID POTASSIUM CHLORIDE 20 MEQ PO ASDIR PRN HYDROmorphone HCL 0.5 MG IV Q3H PRN MUPIROCIN 1 APPLIC NASAL BID MELATONIN 6 MG PO BEDTIME GLUCAGON 1 MG IM ASDIR PRN FOLIC ACID 1 MG FEED-TUBE DAILY ASPIRIN 81 MG FEED-TUBE DAILY NOREPINEPHRINE BITARTRATE 4 MG IV TITRATE INSULIN LISPRO LOW DOSE SS SUBQ Q6HR SODIUM PHOSPHATE with/in SODIUM CHLORIDE 0.9% 30 MM IV ASDIR (PRN) propofoL 1000 MG IV TITRATE SOD BIPHOS/POT PHOSPHATE 2 PKT PO ASDIR PRN HYDROcodone BITARTRATE/APAP 1 TAB FEED-TUBE Q6H PRN polyethylene glycoL 3350 1 PKT PO DAILY IPRATROPIUM/ALBUTEROL SULFATE 3 ML NEB RTQ6H TICAGRELOR 90 MG PO Q12HR AMIODARONE HCL 400 MG FEED-TUBE Q12HR POTASSIUM CHLORIDE IN WATER 10 MEQ IV ASDIR (PRN) ACETAMINOPHEN 650 MG FEED-TUBE Q6H PRN SODIUM PHOSPHATE with/in SODIUM CHLORIDE 0.9% 20 MM IV ASDIR (PRN) HALOPERIDOL LACTATE 5 MG IV Q6H PRN ENOXAPARIN SODIUM 40 MG SUBQ Q12HR LORazepam 1 MG IV Q6H PRN THIAMINE HCL 100 MG FEED-TUBE DAILY (Held) METOPROLOL TARTRATE 12.5 MG FEED-TUBE Q12HR ATORVASTATIN CALCIUM 80 MG FEED-TUBE BEDTIME LABS BASIC METABOLIC PANEL (01/02/24 11:09) SODIUM 141 POTASSIUM 3.5 CHLORIDE 99 CARBON DIOXIDE 30 GLUCOSE 113H H BLOOD UREA NITROGEN 24H H GLOMERULAR FILTRATION RATE >=60 max estimate CREATININE 1.00 CALCIUM 9.3 MAG (01/02/24 11:09) MAGNESIUM 1.9 CBC W/AUTO DIFF (01/02/24 11:09) WHITE BLOOD CELL 9.9 RED BLOOD CELL 4.42 L HEMOGLOBIN 13.4L L HEMATOCRIT 40.8L L MEAN CELL VOLUME 92.3 MEAN CELL HGB 30.3 MEAN CELL HGB CONCENTRATION 32.8 L RED CELL DISTRIBUTION WIDTH 16.2 PLATELET COUNT 265 MEAN PLATELET VOLUME 9.6 NEUTROPHIL % 73.0 LYMPHOCYTE % 15.8 L MONOCYTE % 9.8 H EOSINOPHIL % 0.4 BASOPHIL % 0.4 NEUTROPHIL # 7.23 LYMPHOCYTE # 1.56 MONOCYTE # 0.97 H EOSINOPHIL # 0.04 BASOPHIL # 0.04 PHOS (01/02/24 11:09) PHOSPHOROUS 3.5 PROTHROMBIN TIME (01/02/24 11:09) PROTHROMBIN TIME PATIENT 13.5 H INTERNATIONAL NORMAL RATIO 1.21 H PTT (01/02/24 11:09) THROMBOPLASTIN TIME PARTIAL 29.1 COMPREHENSIVE METABOLIC PANEL (01/02/24 04:24) SODIUM 139 POTASSIUM 3.1 L CHLORIDE 98 CARBON DIOXIDE 31 GLUCOSE 127 H BLOOD UREA NITROGEN 25 H GLOMERULAR FILTRATION RATE >=60 max estimate CREATININE 1.00 TOTAL PROTEIN 7.2 ALBUMIN 4.6 CALCIUM 9.4 BILIRUBIN TOTAL 0.5 SGOT/AST 43 H SGPT/ALT 52 H ALKALINE PHOSPHATASE 104.0 FIB (01/02/24 04:24) FIBRINOGEN 872 H CBC W/AUTO DIFF (01/02/24 04:24) WHITE BLOOD CELL 9.4 RED BLOOD CELL 4.29 L HEMOGLOBIN 13.1L L HEMATOCRIT 39.1L L MEAN CELL VOLUME 91.1 MEAN CELL HGB 30.5 MEAN CELL HGB CONCENTRATION 33.5 RED CELL DISTRIBUTION WIDTH 16.3 PLATELET COUNT 265 MEAN PLATELET VOLUME 9.8 NEUTROPHIL % 72.6 LYMPHOCYTE % 16.6 L MONOCYTE % 9.3 EOSINOPHIL % 0.5 BASOPHIL % 0.4 NEUTROPHIL # 6.83 LYMPHOCYTE # 1.57 MONOCYTE # 0.88 H EOSINOPHIL # 0.05 BASOPHIL # 0.04 PROTHROMBIN TIME (01/02/24 04:24) PROTHROMBIN TIME PATIENT 12.6 INTERNATIONAL NORMAL RATIO 1.13 H PHOS (01/02/24 04:24) PHOSPHOROUS 3.0 PTT (01/02/24 04:24) THROMBOPLASTIN TIME PARTIAL 29.2 MAG (01/02/24 04:24) MAGNESIUM 1.8 BASIC METABOLIC PANEL (01/01/24 18:24) SODIUM 141 POTASSIUM 3.9 CHLORIDE 101 CARBON DIOXIDE 30 GLUCOSE 138H H BLOOD UREA NITROGEN 21 GLOMERULAR FILTRATION RATE >=60 max estimate CREATININE 1.00 CALCIUM 8.7 PROTHROMBIN TIME (01/01/24 18:24) PROTHROMBIN TIME PATIENT 12.5 INTERNATIONAL NORMAL RATIO 1.12 H PTT (01/01/24 18:24) THROMBOPLASTIN TIME PARTIAL 28.5 PHOS (01/01/24 18:24) PHOSPHOROUS 3.3 MAG (01/01/24 18:24) MAGNESIUM 2.1 CBC W/AUTO DIFF (01/01/24 18:24) WHITE BLOOD CELL 9.1 RED BLOOD CELL 4.15 L HEMOGLOBIN 12.5L L HEMATOCRIT 37.7L L MEAN CELL VOLUME 90.8 MEAN CELL HGB 30.1 MEAN CELL HGB CONCENTRATION 33.2 RED CELL DISTRIBUTION WIDTH 16.2 PLATELET COUNT 246 MEAN PLATELET VOLUME 9.6 NEUTROPHIL % 74.0 LYMPHOCYTE % 15.4 L MONOCYTE % 9.1 EOSINOPHIL % 0.5 BASOPHIL % 0.3 NEUTROPHIL # 6.75 LYMPHOCYTE # 1.40 MONOCYTE # 0.83 H EOSINOPHIL # 0.05 BASOPHIL # 0.03 BLOOD GAS W/ELECTROLYTES (01/01/24 18:23) ARTERIAL BLOOD GAS PH 7.49 H ARTERIAL BLOOD GAS PCO2 42.3 ARTERIAL BLOOD GAS PO2 73.6 L BICARBONATE TOTAL HCO3 31.7 H BASE EXCESS 7.6 H ABG O2 SATURATION 95.2 ARTERIAL FIO2 40.0 ABG VENT MODE Ventilator ALLENS TEST NOT APPLICABLE SODIUM (POC) 140 POTASSIUM (POC) 3.91 CHLORIDE (ARTERIAL) 96 L GLUCOSE 149 H IONIZED CALCIUM 1.15 POC LACTIC ACID 1.90 TOTAL HGB 13.6 D CARBOXYHEMOGLOBIN 0.4 METHEMOGLOBIN <0.8 HHb 4.8 TCO2 ARTERIAL 33.0 H Signed in [facility] by DESIREE ARAGON MD on 01/02/24 at 12:15 Cosigned by CRISTINO PARKER III, MD on 01/03/24 at 16:06 at 1606 at 1606 ATTENTION *EDITS and/or ADDENDA must be made in Patient Keeper for this note. * * Edits and ammendments created in [facility] are not visible * * in Patient Keeper or the legal medical record (HPF). * [facility] #: [id number] END OF REPORT [facility] 2024-01-02 09:52:00 [facility] ([facility]) Cardiology Progress Notes REPORT #: [id number] REPORT STATUS: Signed DATE: 01/02/24 TIME: 951 PATIENT: KOTA MONTES UNIT #: [id number] ROOM #: [facility] BED: 1 : 61 AGE: 63 SEX: M ATTEND: Parvin Salcido DO ADM AUTHOR: Dioni Hernandez DO CF1 ATTENTION *EDITS and/or ADDENDA must be made in Patient Keeper for this note. * * Edits and ammendments created in [employer] are not visible * * in Patient Keeper or the legal medical record (HPF). * -- CO-SIGNATURE -- COMMENTS: I have personally seen and examined the patient independently, and reviewed the patient's history, exam, and all cardiac and laboratory data. I agree with the history, physical, and the assessment and plan as outlined by cardiovascular fellow Dr. Dioni Hernandez DO. I was present and supervised. Critical care time spent 35 minutes. Signed in PatientKeeper by GUILLAUME SUMNER MD on 01/03/24 at 11:34 -- ASSESSMENT AND PLAN -- GENERAL ASSESSMENT: Mr. Montes is a 63 year old male with a PMH of CAD s/p 2V CAB (06/25) and PCI ('06, 06/24, 12/24, 07/25), ischemic cardiomyopathy (EF 25-29%), HTN, HLD, h/o ETOH abuse, tobacco abuse, anxiety/depression, and medical non-compliance initially presenting to [facility] with a chief complaint of shortness of breath on 12/26. Pt found to have a BNP of 546, lactic acidosis and mild SAMMIE. Initial CXR showed bilateral infiltrates, and CTA was negative for PE but noted bilateral consolidation. Pt Intubated despite BIPAP and diuresis. Etiology determined to be due to decompensation attributed to CAP and acute decompensated heart failure. Patient's condition improved, and he was extubated to [place] on 12/27. ICU course complicated by AFib with RVR, with conversion to NSR following initiation of amiodarone. On 12/29, he was downgraded to the medical floor, however shortly after transfer he developed respiratory distress with associated hypoxia, as well as hypotension. He was transitioned to BIPAP and transferred back to the ICU, where he was subsequently re-intubated. Patient transferred to [facility] for management of acute hypoxic and hypercapnic respiratory failure due to suspected flash pulmonary edema. 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 systolic Heart Failure, EF 25-29% - NYHA III #Hx of CAD s/p CABG x2V, multiple PCIs #Hx of Ischemic Cardiomyopathy #Flash Pulmonary Edema #Acute Hypoxic and Hypercapnic Respiratory Failure s/p intubation #Vasogenic Shock #Atrial Fibrillation #LBBB with QRS 160ms #Acute Kidney Injury #Transaminitis #Anemia Plan: -Presented for Acute Hypoxic and Hypercapnic Respiratory Failure s/p intubation likely 2/2 flash pulmonary edema -EKG and Trop reviewed -TTE 12/30 showed EF 25-29%, RVSP increased, mod MR, hypokinesis of the basal-mid inferoseptal, mid anterior, mid anteroseptal, and apical septal rubin noted -LBBB and QRS >160ms with EF 25-29%, likely would benefit from ASSOCIATE SOFTWARE ENGINEER-D; EP consulted plan for placement today -keep intubated and sedated until ASSOCIATE SOFTWARE ENGINEER-D placement, then wean vent as tolerated -vasopressors as needed -diuresis as tolerated -monitor hemodynamics, tele, and I/Os Discussed with Dr. Sumner. -- SUBJECTIVE -- -REVIEW OF SYSTEMS- COMMENT: Unable to obtain, intubated and sedated. -- OBJECTIVE -- VITALS (12/31 09:52 - 01/01 09:52): Temperature F: 99.2 (98.6 - 101.2) Temperature source: Oral Pulse Rate 68 (61 - 80) Respiratory rate: 15 (13 - 28) Blood pressure: 105/55 (88/49 - 228/167) Blood pressure source: Monitor I/Os (12/31 07:00 - 01/01 07:00): Net -4,291.20 Intake 2,348.80 Output 6,640 -EXAM- GENERAL: Well developed, well nourished, in no apparent distress. HEAD: Normocephalic, atraumatic. MOUTH: Oropharynx without deformities or lesions, normal mucosa.. NECK: No masses, no thyromegaly, no abnormal cervical nodes, trachea midline. CHEST: Grossly normal appearance. LUNGS: Clear bilaterally with normal respiratory effort. HEART: Regular rate and rhythm, normal S1, S2, no murmurs, no rubs, no gallops, no clicks. ABDOMEN: Soft, non-tender, no organomegaly, no masses noted. EXTREMITIES: No clubbing, no cyanosis, no edema. NEUROLOGICAL: Intubated and sedated. PULSES: Pulses normal in all extremities. -- DATA -- MEDICATIONS dexmedeTOMIDine in 0.9 % NaCL 400 MCG IV TITRATE MAGNESIUM SULFATE 4 G IV ASDIR (PRN) DEXTROSE 50%-WATER 25 ML IV ASDIR PRN bisacodyL 10 MG RECTAL DAILY PRN DOCUSATE SODIUM 200 MG PO DAILY MAGNESIUM SULFATE 2 GM IV ASDIR (PRN) ESCITALOPRAM 20 MG FEED-TUBE DAILY SODIUM CHLORIDE 100 mL BAG with/in BUMETANIDE 60 ML IV .Q20H CALCIUM GLUC IN NACL, ISO-OSM 2 GM IV ASDIR PRN PREGABALIN 50 MG FEED-TUBE BID HYDROcodone BITARTRATE/APAP 1 TAB FEED-TUBE Q6H PRN methocarbamoL 750 MG FEED-TUBE TID POTASSIUM CHLORIDE 20 MEQ PO ASDIR PRN HYDROmorphone HCL 0.5 MG IV Q3H PRN MUPIROCIN 1 APPLIC NASAL BID MELATONIN 6 MG PO BEDTIME GLUCAGON 1 MG IM ASDIR PRN FOLIC ACID 1 MG FEED-TUBE DAILY ASPIRIN 81 MG FEED-TUBE DAILY NOREPINEPHRINE BITARTRATE 4 MG IV TITRATE INSULIN LISPRO LOW DOSE SS SUBQ Q6HR SODIUM PHOSPHATE with/in SODIUM CHLORIDE 0.9% 30 MM IV ASDIR (PRN) propofoL 1000 MG IV TITRATE SOD BIPHOS/POT PHOSPHATE 2 PKT PO ASDIR PRN HYDROcodone BITARTRATE/APAP 1 TAB FEED-TUBE Q6H PRN polyethylene glycoL 3350 1 PKT PO DAILY IPRATROPIUM/ALBUTEROL SULFATE 3 ML NEB RTQ6H TICAGRELOR 90 MG PO Q12HR AMIODARONE HCL 400 MG FEED-TUBE Q12HR POTASSIUM CHLORIDE IN WATER 10 MEQ IV ASDIR (PRN) ACETAMINOPHEN 650 MG FEED-TUBE Q6H PRN SODIUM PHOSPHATE with/in SODIUM CHLORIDE 0.9% 20 MM IV ASDIR (PRN) HALOPERIDOL LACTATE 5 MG IV Q6H PRN ENOXAPARIN SODIUM 40 MG SUBQ Q12HR LORazepam 1 MG IV Q6H PRN THIAMINE HCL 100 MG FEED-TUBE DAILY (Held) METOPROLOL TARTRATE 12.5 MG FEED-TUBE Q12HR ATORVASTATIN CALCIUM 80 MG FEED-TUBE BEDTIME LABS COMPREHENSIVE METABOLIC PANEL (01/02/24 04:24) SODIUM 139 POTASSIUM 3.1 L CHLORIDE 98 CARBON DIOXIDE 31 GLUCOSE 127 H BLOOD UREA NITROGEN 25 H GLOMERULAR FILTRATION RATE >=60 max estimate CREATININE 1.00 TOTAL PROTEIN 7.2 ALBUMIN 4.6 CALCIUM 9.4 BILIRUBIN TOTAL 0.5 SGOT/AST 43 H SGPT/ALT 52 H ALKALINE PHOSPHATASE 104.0 FIB (01/02/24 04:24) FIBRINOGEN 872 H CBC W/AUTO DIFF (01/02/24 04:24) WHITE BLOOD CELL 9.4 RED BLOOD CELL 4.29 L HEMOGLOBIN 13.1L L HEMATOCRIT 39.1L L MEAN CELL VOLUME 91.1 MEAN CELL HGB 30.5 MEAN CELL HGB CONCENTRATION 33.5 RED CELL DISTRIBUTION WIDTH 16.3 PLATELET COUNT 265 MEAN PLATELET VOLUME 9.8 NEUTROPHIL % 72.6 LYMPHOCYTE % 16.6 L MONOCYTE % 9.3 EOSINOPHIL % 0.5 BASOPHIL % 0.4 NEUTROPHIL # 6.83 LYMPHOCYTE # 1.57 MONOCYTE # 0.88 H EOSINOPHIL # 0.05 BASOPHIL # 0.04 PROTHROMBIN TIME (01/02/24 04:24) PROTHROMBIN TIME PATIENT 12.6 INTERNATIONAL NORMAL RATIO 1.13 H PHOS (01/02/24 04:24) PHOSPHOROUS 3.0 PTT (01/02/24 04:24) THROMBOPLASTIN TIME PARTIAL 29.2 MAG (01/02/24 04:24) MAGNESIUM 1.8 BASIC METABOLIC PANEL (01/01/24 18:24) SODIUM 141 POTASSIUM 3.9 CHLORIDE 101 CARBON DIOXIDE 30 GLUCOSE 138H H BLOOD UREA NITROGEN 21 GLOMERULAR FILTRATION RATE >=60 max estimate CREATININE 1.00 CALCIUM 8.7 PROTHROMBIN TIME (01/01/24 18:24) PROTHROMBIN TIME PATIENT 12.5 INTERNATIONAL NORMAL RATIO 1.12 H PTT (01/01/24 18:24) THROMBOPLASTIN TIME PARTIAL 28.5 PHOS (01/01/24 18:24) PHOSPHOROUS 3.3 MAG (01/01/24 18:24) MAGNESIUM 2.1 CBC W/AUTO DIFF (01/01/24 18:24) WHITE BLOOD CELL 9.1 RED BLOOD CELL 4.15 L HEMOGLOBIN 12.5L L HEMATOCRIT 37.7L L MEAN CELL VOLUME 90.8 MEAN CELL HGB 30.1 MEAN CELL HGB CONCENTRATION 33.2 RED CELL DISTRIBUTION WIDTH 16.2 PLATELET COUNT 246 MEAN PLATELET VOLUME 9.6 NEUTROPHIL % 74.0 LYMPHOCYTE % 15.4 L MONOCYTE % 9.1 EOSINOPHIL % 0.5 BASOPHIL % 0.3 NEUTROPHIL # 6.75 LYMPHOCYTE # 1.40 MONOCYTE # 0.83 H EOSINOPHIL # 0.05 BASOPHIL # 0.03 BLOOD GAS W/ELECTROLYTES (01/01/24 18:23) ARTERIAL BLOOD GAS PH 7.49 H ARTERIAL BLOOD GAS PCO2 42.3 ARTERIAL BLOOD GAS PO2 73.6 L BICARBONATE TOTAL HCO3 31.7 H BASE EXCESS 7.6 H ABG O2 SATURATION 95.2 ARTERIAL FIO2 40.0 ABG VENT MODE Ventilator ALLENS TEST NOT APPLICABLE SODIUM (POC) 140 POTASSIUM (POC) 3.91 CHLORIDE (ARTERIAL) 96 L GLUCOSE 149 H IONIZED CALCIUM 1.15 POC LACTIC ACID 1.90 TOTAL HGB 13.6 D CARBOXYHEMOGLOBIN 0.4 METHEMOGLOBIN <0.8 HHb 4.8 TCO2 ARTERIAL 33.0 H BASIC METABOLIC PANEL (01/01/24 11:58) SODIUM 137 POTASSIUM 3.6 CHLORIDE 99 CARBON DIOXIDE 27 GLUCOSE 152H H BLOOD UREA NITROGEN 22 GLOMERULAR FILTRATION RATE >=60 max estimate CREATININE 1.10 CALCIUM 9.2 MAG (01/01/24 11:58) MAGNESIUM 1.8 PHOS (01/01/24 11:58) PHOSPHOROUS 3.5 D Signed in PatientKeeper by Dioni Hernandez1 on 01/02/24 at 11:06 Cosigned by GUILLAUME SUMNER MD on 01/03/24 at 11:34 at 1134 at 1134 ATTENTION *EDITS and/or ADDENDA must be made in Patient Keeper for this note. * * Edits and ammendments created in [employer] are not visible * * in Patient Keeper or the legal medical record ([facility]). * RPT #: [id number] END OF REPORT [facility] 2024-01-02 08:45:00 [facility] ([facility]) Intensive Care Progress Note REPORT #: [id number] REPORT STATUS: Signed DATE: 01/02/24 TIME: 0845 PATIENT: KOTA MONTES UNIT #: [id number] ROOM #: [id number] BED: 1 : 61 AGE: 63 SEX: M ATTEND: Parvin Salcido DO ADM AUTHOR: Sherrie Stein MD ATTENTION *EDITS and/or ADDENDA must be made in Patient Keeper for this note. * * Edits and ammendments created in [employer] are not visible * * in Patient Keeper or the legal medical record ([facility]). * -- ASSESSMENT AND PLAN -- HOSPITAL COURSE TO DATE: Patient is a 63-year-old male well-known to critical care with PMH notable for CAD s/p 2V CAB (06/25) and PCI ('06, 06/24, 12/24, 07/25), ischemic cardiomyopathy (EF 25-29%), HTN, HLD, h/o ETOH abuse, tobacco abuse, anxiety/depression, and medical non-compliance initially presenting to [facility] with a chief complaint of shortness of breath on 12/26. Patient transferred to [facility] for management of acute hypoxic and hypercapnic respiratory failure. 01/01: Planned for BiV AICD placement with EP today GENERAL ASSESSMENT: Problem List: -Acute Hypoxic and Hypercapnic Respiratory Failure -Acute Decompensated Heart Failure -H/o CAD/Ischemic Cardiomyopathy -Flash Pulmonary Edema -Vasogenic Shock -Atrial Fibrillation -Acute Kidney Injury -Volume Overload -Acute Shock Liver -Acute Blood Loss Anemia Plan: Pain/Sedation -Continue Precedex/propofol gtts while intubated, goal RASS 0 to -1 -Wean sedation following AICD placement -Multi-modal pain regimen Neuro/Psych -Neurologically intact, exam non-focal -Neurochecks per protocol, frequent reorientation/redirection, optimize sleep/wake cycle, delirium precautions, SATs per protocol Respiratory -Suspect flash pulmonary edema/medication non-compliance as likely etiology of recurrent respiratory failure -Remains ventilator-dependent, plan to transition to SBT and assess for extubation following AICD placement -Aggressive diuresis with Bumex gtt -Serial CXRs/ABGs, CPT, pulmonary hygiene, SBTs per protocol Cardiovascular -TTE (12/26): EF 20-30%, severely reduced LV function, severe global hypokinesis, normal RV function -Off vasopressors, hypotension likely 2/2 sedation -A-line/PA catheter in place, trend lactate/SVO2/filling pressures -Maintain MAP >65 -Continue aggressive diuresis with Bumex gtt -Hold GDMT/antihypertensives given labile BP -Previously in AFib with RVR, now NSR, continue amiodarone PO -DAPT/statin given extensive h/o CAD -F/u TTE -Cardiology and EP following -Planned for BiV AICD placement today Gastrointestinal/Nutrition -LFTs elevated, likely 2/2 recent shock-state, trend LFTs, avoid hepatotoxins -NPO for procedure, will assess for oral diet if able to extubate -SUP, bowel regimen Renal -Cr 1.4 at OSH, improving with diuresis, renal function now at baseline -Strict I/O -Continue diuresis, monitor renal function -Electrolyte protocol, maintain K >4.0, Phos >3.0, Mg >2.0, Ca >1.1 Infectious Disease -Completed course of CAP at OSH, currently no concerns for infection -Hold empiric abx, monitor fever curve Endocrine -SSI PRN, maintain goal BS 140-180, hypoglycemia protocol HEME -Acute blood loss anemia, currently without evidence of bleeding -Transfuse for goal Hgb >7.0, platelets >10k or 20k with bleeding, and fibrinogen >150 MSK -PT/OT once extubated PPX -DVT: LSQ -GI: PPI QD GOC -Code: Full per surrogate medical decision-maker () -Advance Care Planning: None per Dispo: Continue ICU level care Medications reviewed with ICU pharmacist Patient seen and examined. History and clinical course reviewed since last examination. Patient is critically ill and at risk of imminent life threatening injury, organ failure, or . -- SUBJECTIVE -- PATIENT NARRATIVE: NAEON. Documented fevers from hemosphere, not axillary nor oral. Patient sedated but awake/alert, agitated, wanting to leave AMA. -- OBJECTIVE -- VITALS (12/31 06:34 - 01/01 06:34): Temperature F: 99.3 (98.6 - 101.2) Temperature source: Axillary Pulse Rate 67 (61 - 83) Respiratory rate: 16 (13 - 30) Blood pressure: 105/55 (90/51 - 133/79) Blood pressure source: Arterial I/Os (12/30 07:00 - 12/31 07:00): Net -2,186.70 Intake 1,163.30 Output 3,350 -- DATA -- MEDICATIONS dexmedeTOMIDine in 0.9 % NaCL 400 MCG IV TITRATE MAGNESIUM SULFATE 4 G IV ASDIR (PRN) DEXTROSE 50%-WATER 25 ML IV ASDIR PRN bisacodyL 10 MG RECTAL DAILY PRN DOCUSATE SODIUM 200 MG PO DAILY MAGNESIUM SULFATE 2 GM IV ASDIR (PRN) ESCITALOPRAM 20 MG FEED-TUBE DAILY SODIUM CHLORIDE 100 mL BAG with/in BUMETANIDE 60 ML IV .Q20H CALCIUM GLUC IN NACL, ISO-OSM 2 GM IV ASDIR PRN PREGABALIN 50 MG FEED-TUBE BID HYDROcodone BITARTRATE/APAP 1 TAB FEED-TUBE Q6H PRN methocarbamoL 750 MG FEED-TUBE TID POTASSIUM CHLORIDE 20 MEQ PO ASDIR PRN HYDROmorphone HCL 0.5 MG IV Q3H PRN MUPIROCIN 1 APPLIC NASAL BID MELATONIN 6 MG PO BEDTIME GLUCAGON 1 MG IM ASDIR PRN FOLIC ACID 1 MG FEED-TUBE DAILY ASPIRIN 81 MG FEED-TUBE DAILY NOREPINEPHRINE BITARTRATE 4 MG IV TITRATE INSULIN LISPRO LOW DOSE SS SUBQ Q6HR SODIUM PHOSPHATE with/in SODIUM CHLORIDE 0.9% 30 MM IV ASDIR (PRN) propofoL 1000 MG IV TITRATE SOD BIPHOS/POT PHOSPHATE 2 PKT PO ASDIR PRN HYDROcodone BITARTRATE/APAP 1 TAB FEED-TUBE Q6H PRN polyethylene glycoL 3350 1 PKT PO DAILY IPRATROPIUM/ALBUTEROL SULFATE 3 ML NEB RTQ6H TICAGRELOR 90 MG PO Q12HR AMIODARONE HCL 400 MG FEED-TUBE Q12HR POTASSIUM CHLORIDE IN WATER 10 MEQ IV ASDIR (PRN) ACETAMINOPHEN 650 MG FEED-TUBE Q6H PRN SODIUM PHOSPHATE with/in SODIUM CHLORIDE 0.9% 20 MM IV ASDIR (PRN) HALOPERIDOL LACTATE 5 MG IV Q6H PRN ENOXAPARIN SODIUM 40 MG SUBQ Q12HR LORazepam 1 MG IV Q6H PRN THIAMINE HCL 100 MG FEED-TUBE DAILY (Held) METOPROLOL TARTRATE 12.5 MG FEED-TUBE Q12HR ATORVASTATIN CALCIUM 80 MG FEED-TUBE BEDTIME LABS COMPREHENSIVE METABOLIC PANEL (01/02/24 04:24) SODIUM 139 POTASSIUM 3.1 L CHLORIDE 98 CARBON DIOXIDE 31 GLUCOSE 127 H BLOOD UREA NITROGEN 25 H GLOMERULAR FILTRATION RATE >=60 max estimate CREATININE 1.00 TOTAL PROTEIN 7.2 ALBUMIN 4.6 CALCIUM 9.4 BILIRUBIN TOTAL 0.5 SGOT/AST 43 H SGPT/ALT 52 H ALKALINE PHOSPHATASE 104.0 FIB (01/02/24 04:24) FIBRINOGEN 872 H CBC W/AUTO DIFF (01/02/24 04:24) WHITE BLOOD CELL 9.4 RED BLOOD CELL 4.29 L HEMOGLOBIN 13.1L L HEMATOCRIT 39.1L L MEAN CELL VOLUME 91.1 MEAN CELL HGB 30.5 MEAN CELL HGB CONCENTRATION 33.5 RED CELL DISTRIBUTION WIDTH 16.3 PLATELET COUNT 265 MEAN PLATELET VOLUME 9.8 NEUTROPHIL % 72.6 LYMPHOCYTE % 16.6 L MONOCYTE % 9.3 EOSINOPHIL % 0.5 BASOPHIL % 0.4 NEUTROPHIL # 6.83 LYMPHOCYTE # 1.57 MONOCYTE # 0.88 H EOSINOPHIL # 0.05 BASOPHIL # 0.04 PROTHROMBIN TIME (01/02/24 04:24) PROTHROMBIN TIME PATIENT 12.6 INTERNATIONAL NORMAL RATIO 1.13 H PHOS (01/02/24 04:24) PHOSPHOROUS 3.0 PTT (01/02/24 04:24) THROMBOPLASTIN TIME PARTIAL 29.2 MAG (01/02/24 04:24) MAGNESIUM 1.8 BASIC METABOLIC PANEL (01/01/24 18:24) SODIUM 141 POTASSIUM 3.9 CHLORIDE 101 CARBON DIOXIDE 30 GLUCOSE 138H H BLOOD UREA NITROGEN 21 GLOMERULAR FILTRATION RATE >=60 max estimate CREATININE 1.00 CALCIUM 8.7 PROTHROMBIN TIME (01/01/24 18:24) PROTHROMBIN TIME PATIENT 12.5 INTERNATIONAL NORMAL RATIO 1.12 H PTT (01/01/24 18:24) THROMBOPLASTIN TIME PARTIAL 28.5 PHOS (01/01/24 18:24) PHOSPHOROUS 3.3 MAG (01/01/24 18:24) MAGNESIUM 2.1 CBC W/AUTO DIFF (01/01/24 18:24) WHITE BLOOD CELL 9.1 RED BLOOD CELL 4.15 L HEMOGLOBIN 12.5L L HEMATOCRIT 37.7L L MEAN CELL VOLUME 90.8 MEAN CELL HGB 30.1 MEAN CELL HGB CONCENTRATION 33.2 RED CELL DISTRIBUTION WIDTH 16.2 PLATELET COUNT 246 MEAN PLATELET VOLUME 9.6 NEUTROPHIL % 74.0 LYMPHOCYTE % 15.4 L MONOCYTE % 9.1 EOSINOPHIL % 0.5 BASOPHIL % 0.3 NEUTROPHIL # 6.75 LYMPHOCYTE # 1.40 MONOCYTE # 0.83 H EOSINOPHIL # 0.05 BASOPHIL # 0.03 BLOOD GAS W/ELECTROLYTES (01/01/24 18:23) ARTERIAL BLOOD GAS PH 7.49 H ARTERIAL BLOOD GAS PCO2 42.3 ARTERIAL BLOOD GAS PO2 73.6 L BICARBONATE TOTAL HCO3 31.7 H BASE EXCESS 7.6 H ABG O2 SATURATION 95.2 ARTERIAL FIO2 40.0 ABG VENT MODE Ventilator ALLENS TEST NOT APPLICABLE SODIUM (POC) 140 POTASSIUM (POC) 3.91 CHLORIDE (ARTERIAL) 96 L GLUCOSE 149 H IONIZED CALCIUM 1.15 POC LACTIC ACID 1.90 TOTAL HGB 13.6 D CARBOXYHEMOGLOBIN 0.4 METHEMOGLOBIN <0.8 HHb 4.8 TCO2 ARTERIAL 33.0 H BASIC METABOLIC PANEL (01/01/24 11:58) SODIUM 137 POTASSIUM 3.6 CHLORIDE 99 CARBON DIOXIDE 27 GLUCOSE 152H H BLOOD UREA NITROGEN 22 GLOMERULAR FILTRATION RATE >=60 max estimate CREATININE 1.10 CALCIUM 9.2 MAG (01/01/24 11:58) MAGNESIUM 1.8 PHOS (01/01/24 11:58) PHOSPHOROUS 3.5 D -- QUALITY -- -MEDICATIONS- - I attest that the foregoing medication list in the medical record is true, accurate, and complete to the best of my knowledge. -- ATTESTATION -- TIME SPENT ON PATIENT CARE: - Critical Care: time spent apart from any procedure 68 minutes Patient was critically ill due to: Acute hypoxic respiratory failure, acute decompensated heart failure, flash pulmonary edema, heart failure with reduced ejection fraction. My treatment and management were: discussed on ICU multi-disciplinary rounds with nursing, pharmacy, respiratory therapy, case management and consultants including cardiology regarding management of decompensated heart failure, electrophysiology regarding BiV AICD placement. CARE ACTIVITIES / CARE COORDINATION: - I have reviewed the history and repeated the carias elements - I have seen and examined this patient - I have reviewed the progress in the clinical course since the last examination - I have discussed the patient's condition with other members of the care team Signed in PatientKeeper by SHERRIE STEIN MD on 01/02/24 at 12:15 at 1215 ATTENTION *EDITS and/or ADDENDA must be made in Patient Keeper for this note. * * Edits and ammendments created in [employer] are not visible * * in Patient Keeper or the legal medical record ([facility]). * [facility] #: [id number] END OF REPORT [facility] 2024-01-01 12:14:00 [id number] [facility] [address] [place] [address] PATIENT NAME: KOTA MONTES ADMIT DATE: 12/31/23 ACCOUNT NO: [id number] ROOM NO: [id number] AGE: 63 REPORT TYPE: eECHOCARDIOGRAM REPORT SEX: M ADMITTING PHYSICIAN: Parvin Salcido DO ATTENDING PHYSICIAN: Parvin Salcido DO *[facility]* [address] [place] [address] Transthoracic Echocardiogram Patient: Kota Montes Study Date: 12/31/2023 BP: 103 / 54 URN: [id number] Location: : 1960 Age: 63 Gender: M Height: 57 in / 144.8 cm Weight: 271.2 lb / 123 kg BMI/BSA: 58.7 kg/m 2 / 2.32 m 2 *Ordering Physician: * Sherrie Stein *Interpreting Physician: * Malachi Fitzgerald MD *Boat Washer: * Catina Black Indications: Hypoxia. Study data: Transthoracic echocardiogram. Procedure: A transthoracic echocardiogram was performed. Images were obtained using a [employer] Vivid E Portable cardiac ultrasound machine. Image quality was adequate. Complete 2D, complete spectral Doppler, color Doppler, and tissue Doppler. Location: Bedside. Patient status: Inpatient. Patient room number: 319. Study status: Stat. Heart rate: 107 bpm. Rhythm: Normal sinus rhythm. Findings Left ventricle: The cavity size is normal. Wall thickness is normal. Systolic function is moderately to severely reduced. The estimated ejection fraction is 25-29%. Regional wall motion: There is hypokinesis of the basal-mid inferoseptal, PATIENT NAME: KOTA MONTES mid anterior, mid anteroseptal, and apical septal rubin. Left ventricular diastolic function parameters are indeterminate. Right ventricle: The cavity size is normal. Pacer wire noted in the right ventricle. Catheter is noted in the right ventricle. Systolic function is normal. Systolic pressure is increased. Left atrium: The atrium is mildly dilated. Right atrium: The atrium is normal in size. Pacer wire noted in right atrium. Aorta: Aortic root: The root is normal-sized. Ascending aorta: The vessel is moderately dilated. Aortic valve: The valve is trileaflet. There is mild calcification. There is no evidence of stenosis. There is mild regurgitation. Mitral valve: The valve is structurally normal. There is no evidence of stenosis. There is moderate regurgitation. Tricuspid valve: The valve is structurally normal. There is trivial regurgitation. Pulmonic valve: The valve is structurally normal. There is trivial regurgitation. Pericardium: There is no pericardial effusion. There is a left pleural effusion. Systemic veins: Inferior vena cava: The IVC is dilated. Respirophasic diameter changes are blunted (< 50%). Measurements Left ventricle Value Ref 08/30/2023 JUSTIN, LAX 5.9 cm 4.2 - 5.8 5.3 ESD, LAX 4.4 cm 2.5 - 4.0 5.0 FS, LAX 26 % 25 - 43 6 JUSTIN major ax, A2C 8.6 cm --------- 8.9 ESD major ax, A2C 6.9 cm --------- 8.5 IVS, ED 0.8 cm 0.6 - 1.0 1.3 ESD 4.4 cm 2.5 - 4.0 5.0 FS 26 % 43 6 PW, ED 0.8 cm 0.6 - 1.0 1.2 IVS/PW, ED 1.06 --------- 1.03 EF 50 % 52 - 72 13 Mass 203 g 96 - 200 316 Mass/bsa 88 g/m 2 50 - 102 165 Mass/ht 2.7 74.80 g/m 2.7 --------- 72.19 EF, MM on 2D Teich. 50 % >=55 13 E', med candice, TDI 4.6 cm/sec >=7.0 4.8 E/e', med candice, TDI 0 --------- 23 LVOT Value Ref 08/30/2023 Diam, S 2.20 cm --------- 2.27 Area 3.8 cm 2 --------- 4.0 Peak latanya, S 1.07 m/sec --------- 1.05 Mean latanya, S 0.71 m/sec --------- 0.75 VTI, S 20.6 cm --------- 20.6 Peak grad, S 5 mm Hg --------- 4 PATIENT NAME: KOTA MONTES Mean grad, S 2 mm Hg --------- 3 SV 79 ml --------- 83 SV/bsa 34 ml/m 2 --------- 43 Right ventricle Value Ref 08/30/2023 TAPSE, 2D 1.6 cm >=1.7 TAPSE, MM 1.6 cm >=1.7 Left atrium Value Ref 08/30/2023 LA ID 4.0 cm --------- 3.6 AP dim, ES 4.0 cm 3.0 - 4.0 3.6 AP dim ES, LAX 4.0 cm 3.0 - 4.0 3.6 SI dim ES, LAX 4.0 cm --------- 3.6 Vol/bsa, S 29 ml/m 2 16 - 34 30 Vol, ES, 2-p 77 ml --------- 64 Vol/bsa, ES, 2-p 33 ml/m 2 16 - 34 34 LA/Ao root ratio 1.14 --------- 0.96 AP dim, ES MM 4.0 cm 3.0 - 4.0 3.6 LA/Ao root ratio, MM 1 --------- 1 Aortic valve Value Ref 08/30/2023 Peak v, S 1.5 m/sec --------- 1.5 Mean v, S 0.93 m/sec --------- 0.96 VTI, S 25.7 cm --------- 23.4 Mean grad, S 4 mm Hg --------- 4 Peak grad, S 9.1 mm Hg --------- 8.4 LVOT/AV, VTI ratio 0.8 --------- 0.88 SUKHJINDER, VTI 2.87 cm 2 --------- 3.55 LVOT/AV, Vpeak ratio 0.71 --------- 0.72 SUKHJINDER, Vmax 2.79 cm 2 --------- 2.91 AR peak v 3.52 m/sec --------- AR decel 561.92 cm/s 2 --------- AR decel time 577 ms --------- AR PHT 167 ms --------- AR peak grad 50 mm Hg --------- Mitral valve Value Ref 08/30/2023 Mean v, D 0.85 m/sec --------- 0.87 Peak E 0 m/sec --------- 0.06 Peak A 1.24 m/sec --------- 0.92 VTI leaflet coapt 24.7 cm --------- 19.6 MiV/LVOT VTI 1.2 --------- 1.0 Mean grad, D 3 mm Hg --------- 3 Peak grad, D 7.7 mm Hg --------- 5.9 Peak E/A ratio 0 --------- 1.21 MR peak v 3.4 m/sec --------- Tricuspid valve Value Ref 08/30/2023 TR peak v 3.5 m/sec <=2.8 2.4 Peak RV-RA grad, S 49 mm Hg --------- 23 Aortic root Value Ref 08/30/2023 Root diam 3.5 cm 2.9 - 4.4 3.7 Root diam, ED MM 4.0 cm --------- 3.6 PATIENT NAME: KOTA MONTES Ascending aorta Value Ref 08/30/2023 AAo AP diam, S 4.2 cm --------- 4.1 Conclusions Summary: 1. Left ventricle: The cavity size is normal. Wall thickness is normal. Systolic function is moderately to severely reduced. The estimated ejection fraction is 25-29%. Left ventricular diastolic function parameters are indeterminate. 2. Right ventricle: Systolic pressure is increased. 3. Left atrium: The atrium is mildly dilated. 4. Aortic valve: There is mild calcification. 5. Mitral valve: There is moderate regurgitation. 6. Pericardium, extracardiac: There is a left pleural effusion. 7. Regional wall motion: There is hypokinesis of the basal-mid inferoseptal, mid anterior, mid anteroseptal, and apical septal rubin. Electronically signed by Malachi Fitzgerald MD 01/01/2024 12:13 at 1214 PATIENT NAME: KOTA MONTES [facility] 2024-01-01 11:47:00 [facility] ([facility]) ElectroPhys. Consultation REPORT #: [id number] REPORT STATUS: Signed DATE: 01/01/24 TIME: 1147 PATIENT: KOTA MONTES UNIT #: [id number] ROOM #: P.[id number] BED: 1 : 61 AGE: 63 SEX: M ATTEND: Parvin Salcido DO ADM AUTHOR: Desiree Aragon MD CF1 ATTENTION *EDITS and/or ADDENDA must be made in Patient Keeper for this note. * * Edits and ammendments created in [employer] are not visible * * in Patient Keeper or the legal medical record ([facility]). * -- CO-SIGNATURE -- COMMENTS: I obtained the history and performed the physical examination in supervision of Dr. Aragon. I concur with his findings with the following additions: This is a 63 year old male with a past medical history extensive CAD with prior CABG and PCI most recently in July with persistently reduced LVEF and left bundle branch block who is seen in electrophysiology consultation for consideration of ASSOCIATE SOFTWARE ENGINEER with primary prevention ICD. He is admitted to the ICU for respiratory failure from acute on chronic heart failure. Gen: intubated, mostly awake Chest: [place] in R subclavian CV: RRR Lungs: mechanical breath sounds Abd: soft, NTND Neuro: speech intact, face symmetric, moves all extremities Acute on chronic systolic heart failure exacerbation requiring intubation. Persistent reduced LVEF < 30% despite revascularization and medical therapy. We will plan for ASSOCIATE SOFTWARE ENGINEER-D implantation 01/01. Risks and benefits were discussed with his Loyd via telephone. Time spent on patient care: I spent > 30 minutes on patient care, including 15 minutes spent jointly with Dr. Aragon. Discussed with Dr. Stein and Dr. Fitzgerald. Independently reviewed 12 lead EKG showing sinus rhythm and LBBB with QRS 160 ms. Reviewed tele, CMP, CBC. > 50% of time spent on counseling/coordination of care. Signed in PatientKeeper by CRISTINO PARKER III, MD on 01/01/24 at 15:42 -- ASSESSMENT AND PLAN -- GENERAL ASSESSMENT: Patient is a 63-year-old male with PMH notable for CAD s/p 2V CAB (06/25) and PCI (', 06/24, 12/24, 07/25), ischemic cardiomyopathy (EF 25-29%), HTN, HLD, h/o ETOH abuse, tobacco abuse, anxiety/depression, and medical non-compliance initially presenting to [facility] with a chief complaint of shortness of breath on 12/26. Patient transferred to [facility] for management of acute hypoxic and hypercapnic respiratory failure. Patient was consulted to EP for BiV ICD placement. Dx CAD s/p CABG and multiple PCI's Ischemic cardiomyopathy (EF 25-29%) LBBB AHRF Intubated, on mild sedation EKG NSR, LBBB QRS more than 150 ms TTE EF 20-24% CABG on 06/2023 A/P -ASSOCIATE SOFTWARE ENGINEER-D placement if patient able to lie down in this or Saturday -NPO after midnight -Will continue follow up Case was discussed with Dr. Parker -- HISTORY -- HPI: Patient is a 63-year-old male with PMH notable for CAD s/p 2V CAB (06/25) and PCI (, 06/24, 12/24, 07/25), ischemic cardiomyopathy (EF 25-29%), HTN, HLD, h/o ETOH abuse, tobacco abuse, anxiety/depression, and medical non-compliance initially presenting to [facility] with a chief complaint of shortness of breath on 12/26. Patient transferred to [facility] for management of acute hypoxic and hypercapnic respiratory failure. Patient was consulted to EP for BiV ICD placement. -- ALLERGIES/HOME MEDS -- ALLERGIES: No Known Allergies (UNKNOWN - Allergy) -- OBJECTIVE -- VITALS (12/30 11:47 - 12/31 11:47): Temperature F: 98.6 (98.2 - 98.7) Temperature source: Oral Pulse Rate 79 (70 - 100) Respiratory rate: 24 (12 - 25) Blood pressure: 131/73 (77/35 - 147/92) Blood pressure source: Arterial I/Os (12/30 07:00 - 12/31 07:00): Net -2,186.70 Intake 1,163.30 Output 3,350 -EXAM- GENERAL: Intubated mild sedated HEAD: Normocephalic, atraumatic. EYES: conjunctiva and sclera clear, without nystagmus, lids normal NOSE: No deformity. MOUTH: Oropharynx without deformities or lesions, normal mucosa. NECK: Supple CHEST: CABG surgery scar+ LUNGS: Decreased lung sounds on bilateral basals HEART: S1 S2 rhythmic ABDOMEN: Soft, non-tender. MUSCULOSKELETAL: No deformity. EXTREMITIES: No edema. NEUROLOGICAL: No focal deficits, PULSES: Pulses normal in all extremities. SKIN: Intact without significant lesions, or rashes. LYMPH NODES: No significant cervical node adenopathy. PSYCHIATRIC: Alert and oriented to time, person, place. Appears anxious. Intact judgment and insight. -- DATA -- MEDICATIONS MAGNESIUM SULFATE 4 G IV ASDIR (PRN) bisacodyL 10 MG RECTAL DAILY PRN MAGNESIUM SULFATE 2 GM IV ASDIR (PRN) ESCITALOPRAM 20 MG FEED-TUBE DAILY SODIUM CHLORIDE 100 mL BAG with/in BUMETANIDE 60 ML IV .Q20H CALCIUM GLUC IN NACL, ISO-OSM 2 GM IV ASDIR PRN PREGABALIN 50 MG FEED-TUBE BID HYDROcodone BITARTRATE/APAP 1 TAB FEED-TUBE Q6H PRN methocarbamoL 750 MG FEED-TUBE TID HYDROmorphone HCL 0.5 MG IV Q3H PRN MUPIROCIN 1 APPLIC NASAL BID GLUCAGON 1 MG IM ASDIR PRN INSULIN LISPRO LOW DOSE SS SUBQ Q6HR SODIUM PHOSPHATE with/in SODIUM CHLORIDE 0.9% 30 MM IV ASDIR (PRN) SOD BIPHOS/POT PHOSPHATE 2 PKT PO ASDIR PRN IPRATROPIUM/ALBUTEROL SULFATE 3 ML NEB RTQ6H POTASSIUM CHLORIDE IN WATER 10 MEQ IV ASDIR (PRN) ACETAMINOPHEN 650 MG FEED-TUBE Q6H PRN SODIUM PHOSPHATE with/in SODIUM CHLORIDE 0.9% 20 MM IV ASDIR (PRN) HALOPERIDOL LACTATE 5 MG IV Q6H PRN dexmedeTOMIDine in 0.9 % NaCL 400 MCG IV TITRATE DEXTROSE 50%-WATER 25 ML IV ASDIR PRN DOCUSATE SODIUM 200 MG PO DAILY POTASSIUM CHLORIDE 20 MEQ PO ASDIR PRN MELATONIN 6 MG PO BEDTIME FOLIC ACID 1 MG FEED-TUBE DAILY ENOXAPARIN SODIUM 40 MG SUBQ DAILY ASPIRIN 81 MG FEED-TUBE DAILY NOREPINEPHRINE BITARTRATE 4 MG IV TITRATE propofoL 1000 MG IV TITRATE HYDROcodone BITARTRATE/APAP 1 TAB FEED-TUBE Q6H PRN polyethylene glycoL 3350 1 PKT PO DAILY TICAGRELOR 90 MG PO Q12HR AMIODARONE HCL 400 MG FEED-TUBE Q12HR LORazepam 1 MG IV Q6H PRN THIAMINE HCL 100 MG FEED-TUBE DAILY (Held) METOPROLOL TARTRATE 12.5 MG FEED-TUBE Q12HR ATORVASTATIN CALCIUM 80 MG FEED-TUBE BEDTIME LABS ARTERIAL BLOOD GAS (01/01/24 06:25) ARTERIAL BLOOD GAS PH 7.46 H ARTERIAL BLOOD GAS PCO2 42.5 ARTERIAL BLOOD GAS PO2 90.1 BICARBONATE TOTAL HCO3 29.2 H BASE EXCESS 4.8 H ABG O2 SATURATION 96.5 ABG TYPE Arterial ARTERIAL FIO2 50.0 ABG VENT MODE Ventilator ALLENS TEST NOT APPLICABLE TOTAL HGB 12.7 L TCO2 ARTERIAL 30.5 H METHEMOGLOBIN <0.8 CBC W/AUTO DIFF (01/01/24 02:54) WHITE BLOOD CELL 6.9 RED BLOOD CELL 3.75 L HEMOGLOBIN 11.5L L HEMATOCRIT 34.3L L MEAN CELL VOLUME 91.5 MEAN CELL HGB 30.7 MEAN CELL HGB CONCENTRATION 33.5 RED CELL DISTRIBUTION WIDTH 16.4 PLATELET COUNT 188 MEAN PLATELET VOLUME 9.7 NEUTROPHIL % 77.3 H LYMPHOCYTE % 13.0 L MONOCYTE % 9.2 EOSINOPHIL % 0.0 BASOPHIL % 0.1 NEUTROPHIL # 5.36 LYMPHOCYTE # 0.90 L MONOCYTE # 0.64 EOSINOPHIL # 0.00 BASOPHIL # 0.01 MAG (01/01/24 02:53) MAGNESIUM 2.0 BASIC METABOLIC PANEL (01/01/24 02:53) SODIUM 136 POTASSIUM 3.9 CHLORIDE 98 CARBON DIOXIDE 27 GLUCOSE 124H H BLOOD UREA NITROGEN 18 GLOMERULAR FILTRATION RATE >=60 max estimate CREATININE 1.10 CALCIUM 9.4 D PHOS (01/01/24 02:53) PHOSPHOROUS 5.0 D BLOOD GAS W/ELECTROLYTES (01/01/24 00:20) ARTERIAL BLOOD GAS PH 7.46 H ARTERIAL BLOOD GAS PCO2 39.1 ARTERIAL BLOOD GAS PO2 88.8 BICARBONATE TOTAL HCO3 27.4 H BASE EXCESS 3.5 H ABG O2 SATURATION 97.7 ARTERIAL FIO2 50.0 ABG VENT MODE Ventilator ALLENS TEST NOT APPLICABLE SODIUM (POC) 135 POTASSIUM (POC) 3.98 CHLORIDE (ARTERIAL) 96 L GLUCOSE 130 H IONIZED CALCIUM 1.18 POC LACTIC ACID 1.62 TOTAL HGB 13.1 OXYHEMOGLOBIN 97.1 CARBOXYHEMOGLOBIN 0.5 METHEMOGLOBIN <0.8 HHb 2.3 TCO2 ARTERIAL 28.6 BLOOD GAS W/ELECTROLYTES (12/31/23 20:44) ARTERIAL BLOOD GAS PH 7.53 H ARTERIAL BLOOD GAS PCO2 34.0 L ARTERIAL BLOOD GAS PO2 102.4 H BICARBONATE TOTAL HCO3 28.0 H BASE EXCESS 5.6 H ABG O2 SATURATION 98.2 ARTERIAL FIO2 50.0 ABG VENT MODE Ventilator ABG VENT RESP RATE 18 ABG TIDAL VOLUME 480.0 ABG PEEP 5.0 ALLENS TEST NOT APPLICABLE SODIUM (POC) 134 L POTASSIUM (POC) 3.64 CHLORIDE (ARTERIAL) 96 L GLUCOSE 128 H IONIZED CALCIUM 1.09 L POC LACTIC ACID 1.57 TOTAL HGB 13.7 OXYHEMOGLOBIN 97.7 CARBOXYHEMOGLOBIN 0.5 METHEMOGLOBIN <0.8 HHb 1.8 TCO2 ARTERIAL 29.1 PTT (12/31/23 14:47) THROMBOPLASTIN TIME PARTIAL 29.6 LACTIC ACID (12/31/23 14:47) LACTIC ACID 1.20 CBC W/AUTO DIFF (12/31/23 14:47) WHITE BLOOD CELL 5.8 RED BLOOD CELL 3.52 L HEMOGLOBIN 10.9L L HEMATOCRIT 32.2L L MEAN CELL VOLUME 91.5 MEAN CELL HGB 31.0 MEAN CELL HGB CONCENTRATION 33.9 RED CELL DISTRIBUTION WIDTH 16.7 PLATELET COUNT 189 MEAN PLATELET VOLUME 9.3 NEUTROPHIL % 91.6 H LYMPHOCYTE % 6.0 L MONOCYTE % 2.1 EOSINOPHIL % 0.0 BASOPHIL % 0.0 NEUTROPHIL # 5.31 LYMPHOCYTE # 0.35 L MONOCYTE # 0.12 EOSINOPHIL # 0.00 BASOPHIL # 0.00 BNP (12/31/23 14:47) B-TYPE NATRIURETIC PEPTIDE 409 H FIB (12/31/23 14:47) FIBRINOGEN 809 H PHOS (12/31/23 14:47) PHOSPHOROUS 2.7 MAG (12/31/23 14:47) MAGNESIUM 2.1 PROTHROMBIN TIME (12/31/23 14:47) PROTHROMBIN TIME PATIENT 13.4 H INTERNATIONAL NORMAL RATIO 1.20 H LDH (12/31/23 14:47) LACTIC DEHYDROGENASE(LDH) 236 COMPREHENSIVE METABOLIC PANEL (12/31/23 14:47) SODIUM 138 POTASSIUM 3.5 CHLORIDE 99 CARBON DIOXIDE 31 GLUCOSE 105 BLOOD UREA NITROGEN 14 GLOMERULAR FILTRATION RATE >=60 max estimate CREATININE 1.00 TOTAL PROTEIN 6.0 ALBUMIN 3.6 CALCIUM 8.3 L BILIRUBIN TOTAL 0.7 SGOT/AST 49 H SGPT/ALT 48 ALKALINE PHOSPHATASE 105.0 COVID Asymp Ag (12/31/23 14:04) COVID 19 Asymptomatic IH AG NEGATIVE Signed in PatientKeeper by DESIREE ARAGON MD CF1 on 01/01/24 at 11:57 Cosigned by CRISTINO PARKER III, MD on 01/01/24 at 15:42 at 1542 at 1542 ATTENTION *EDITS and/or ADDENDA must be made in Patient Keeper for this note. * * Edits and ammendments created in [employer] are not visible * * in Patient Keeper or the legal medical record ([facility]). * RPT #: [id number] END OF REPORT [facility] 2024-01-01 08:50:00 THIS REPORT HAS BEEN APPENDED [facility] ([facility]) Intensive Care Progress Note REPORT #: [id number] REPORT STATUS: Signed DATE: 01/01/24 TIME: 0850 PATIENT: KOTA MONTES UNIT #: [id number] ROOM #: P.[id number] BED: 1 : 61 AGE: 63 SEX: M ATTEND: Parvin Salcido DO ADM AUTHOR: Sherrie Stein MD ATTENTION *EDITS and/or ADDENDA must be made in Patient Keeper for this note. * * Edits and ammendments created in [employer] are not visible * * in Patient Keeper or the legal medical record ([facility]). * -- ASSESSMENT AND PLAN -- HOSPITAL COURSE TO DATE: Patient is a 63-year-old male well-known to critical care with PMH notable for CAD s/p 2V CAB (06/25) and PCI (, 06/24, 12/24, 07/25), ischemic cardiomyopathy (EF 25-29%), HTN, HLD, h/o ETOH abuse, tobacco abuse, anxiety/depression, and medical non-compliance initially presenting to [facility] with a chief complaint of shortness of breath on 12/26. Patient transferred to [facility] for management of acute hypoxic and hypercapnic respiratory failure. 12/31: EP consulted for BiV AICD; transitioned to CPAP, evaluating for extubation GENERAL ASSESSMENT: Problem List: -Acute Hypoxic and Hypercapnic Respiratory Failure -Acute Decompensated Heart Failure -H/o CAD/Ischemic Cardiomyopathy -Flash Pulmonary Edema -Vasogenic Shock -Atrial Fibrillation -Acute Kidney Injury -Volume Overload -Acute Shock Liver -Acute Blood Loss Anemia Plan: Pain/Sedation -Continue Precedex gtt while intubated, goal RASS 0 to -1 -Wean sedation in anticipation for extubation -Multi-modal pain regimen Neuro/Psych -Neurologically intact, exam non-focal -Neurochecks per protocol, frequent reorientation/redirection, optimize sleep/wake cycle, delirium precautions, SATs per protocol Respiratory -Suspect flash pulmonary edema/medication non-compliance as likely etiology of recurrent respiratory failure -Remains oxygen-dependent, weaned to CPAP, will trial SBT and assess for extubation -Aggressive diuresis with Bumex gtt -Serial CXRs/ABGs, CPT, pulmonary hygiene, SBTs per protocol Cardiovascular -TTE (12/26): EF 20-30%, severely reduced LV function, severe global hypokinesis, normal RV function -Hypotensive, likely 2/2 sedation, remains without evidence of shock -A-line/PA catheter in place, trend lactate/SVO2/filling pressures -Maintain MAP >65 -Continue aggressive diuresis with Bumex gtt -Hold GDMT/antihypertensives given labile BP -Previously in AFib with RVR, now NSR, continue amiodarone PO -DAPT/statin given extensive h/o CAD -F/u TTE -Cardiology following -EP consulted to evaluate for BiV AICD placement Gastrointestinal/Nutrition -LFTs elevated, likely 2/2 recent shock-state -Trend LFTs, avoid hepatotoxins -Hold TFs in anticipation for extubation -SUP, bowel regimen Renal -Cr 1.4 at OSH, improved with diuresis -Cr now at baseline -Strict I/O -Continue diuresis, monitor renal function -Electrolyte protocol, maintain K >4.0, Phos >3.0, Mg >2.0, Ca >1.1 Infectious Disease -Completed course of CAP at OSH, currently no concerns for infection -Hold empiric abx, monitor fever curve Endocrine -SSI PRN, maintain goal BS 140-180, hypoglycemia protocol HEME -Acute blood loss anemia, currently without evidence of bleeding -Transfuse for goal Hgb >7.0, platelets >10k or 20k with bleeding, and fibrinogen >150 MSK -PT/OT once extubated PPX -DVT: LSQ -GI: PPI QD GOC -Code: Full per surrogate medical decision-maker () -Advance Care Planning: None per Dispo: Continue ICU level care Medications reviewed with ICU pharmacist Patient seen and examined. History and clinical course reviewed since last examination. Patient is critically ill and at risk of imminent life threatening injury, organ failure, or . -- SUBJECTIVE -- PATIENT NARRATIVE: Ventilator weaned to CPAP. Propofol weaned off. Patient awake/alert, agitated. -- OBJECTIVE -- VITALS (12/30 06:58 - 12/31 06:58): Temperature F: 98.2 (98.2 - 98.7) Temperature source: Axillary Pulse Rate 80 (70 - 101) Respiratory rate: 20 (12 - 26) Blood pressure: 140/76 (77/35 - 147/92) Blood pressure source: Monitor I/Os (12/29 07:00 - 12/30 07:00): Net -400 Output 400 -- DATA -- MEDICATIONS MAGNESIUM SULFATE 4 G IV ASDIR (PRN) bisacodyL 10 MG RECTAL DAILY PRN PANTOPRAZOLE with/in SODIUM CHLORIDE 0.9% 40 MG IV DAILY MAGNESIUM SULFATE 2 GM IV ASDIR (PRN) ESCITALOPRAM 20 MG FEED-TUBE DAILY CALCIUM GLUC IN NACL, ISO-OSM 2 GM IV ASDIR PRN PREGABALIN 50 MG FEED-TUBE BID BUMETANIDE 1 MG IV Q8H HYDROcodone BITARTRATE/APAP 1 TAB FEED-TUBE Q6H PRN (Held) methocarbamoL 750 MG FEED-TUBE TID HYDROmorphone HCL 0.5 MG IV Q3H PRN MUPIROCIN 1 APPLIC NASAL BID GLUCAGON 1 MG IM ASDIR PRN INSULIN LISPRO LOW DOSE SS SUBQ Q6HR SODIUM PHOSPHATE with/in SODIUM CHLORIDE 0.9% 30 MM IV ASDIR (PRN) SOD BIPHOS/POT PHOSPHATE 2 PKT PO ASDIR PRN IPRATROPIUM/ALBUTEROL SULFATE 3 ML NEB RTQ6H POTASSIUM CHLORIDE IN WATER 10 MEQ IV ASDIR (PRN) ACETAMINOPHEN 650 MG FEED-TUBE Q6H PRN SODIUM PHOSPHATE with/in SODIUM CHLORIDE 0.9% 20 MM IV ASDIR (PRN) HALOPERIDOL LACTATE 5 MG IV Q6H PRN dexmedeTOMIDine in 0.9 % NaCL 400 MCG IV TITRATE DEXTROSE 50%-WATER 25 ML IV ASDIR PRN DOCUSATE SODIUM 200 MG PO DAILY POTASSIUM CHLORIDE 20 MEQ PO ASDIR PRN MELATONIN 6 MG PO BEDTIME FOLIC ACID 1 MG FEED-TUBE DAILY ENOXAPARIN SODIUM 40 MG SUBQ DAILY NOREPINEPHRINE BITARTRATE 4 MG IV TITRATE HYDROcodone BITARTRATE/APAP 1 TAB FEED-TUBE Q6H PRN polyethylene glycoL 3350 1 PKT PO DAILY TICAGRELOR 90 MG PO Q12HR AMIODARONE HCL 400 MG FEED-TUBE Q12HR LORazepam 1 MG IV Q6H PRN THIAMINE HCL 100 MG FEED-TUBE DAILY (Held) METOPROLOL TARTRATE 12.5 MG FEED-TUBE Q12HR ATORVASTATIN CALCIUM 80 MG FEED-TUBE BEDTIME propofoL 1000 MG IV TITRATE LABS ARTERIAL BLOOD GAS (01/01/24 06:25) ARTERIAL BLOOD GAS PH 7.46 H ARTERIAL BLOOD GAS PCO2 42.5 ARTERIAL BLOOD GAS PO2 90.1 BICARBONATE TOTAL HCO3 29.2 H BASE EXCESS 4.8 H ABG O2 SATURATION 96.5 ABG TYPE Arterial ARTERIAL FIO2 50.0 ABG VENT MODE Ventilator ALLENS TEST NOT APPLICABLE TOTAL HGB 12.7 L TCO2 ARTERIAL 30.5 H METHEMOGLOBIN <0.8 CBC W/AUTO DIFF (01/01/24 02:54) WHITE BLOOD CELL 6.9 RED BLOOD CELL 3.75 L HEMOGLOBIN 11.5L L HEMATOCRIT 34.3L L MEAN CELL VOLUME 91.5 MEAN CELL HGB 30.7 MEAN CELL HGB CONCENTRATION 33.5 RED CELL DISTRIBUTION WIDTH 16.4 PLATELET COUNT 188 MEAN PLATELET VOLUME 9.7 NEUTROPHIL % 77.3 H LYMPHOCYTE % 13.0 L MONOCYTE % 9.2 EOSINOPHIL % 0.0 BASOPHIL % 0.1 NEUTROPHIL # 5.36 LYMPHOCYTE # 0.90 L MONOCYTE # 0.64 EOSINOPHIL # 0.00 BASOPHIL # 0.01 MAG (01/01/24 02:53) MAGNESIUM 2.0 BASIC METABOLIC PANEL (01/01/24 02:53) SODIUM 136 POTASSIUM 3.9 CHLORIDE 98 CARBON DIOXIDE 27 GLUCOSE 124H H BLOOD UREA NITROGEN 18 GLOMERULAR FILTRATION RATE >=60 max estimate CREATININE 1.10 CALCIUM 9.4 D PHOS (01/01/24 02:53) PHOSPHOROUS 5.0 D BLOOD GAS W/ELECTROLYTES (01/01/24 00:20) ARTERIAL BLOOD GAS PH 7.46 H ARTERIAL BLOOD GAS PCO2 39.1 ARTERIAL BLOOD GAS PO2 88.8 BICARBONATE TOTAL HCO3 27.4 H BASE EXCESS 3.5 H ABG O2 SATURATION 97.7 ARTERIAL FIO2 50.0 ABG VENT MODE Ventilator ALLENS TEST NOT APPLICABLE SODIUM (POC) 135 POTASSIUM (POC) 3.98 CHLORIDE (ARTERIAL) 96 L GLUCOSE 130 H IONIZED CALCIUM 1.18 POC LACTIC ACID 1.62 TOTAL HGB 13.1 OXYHEMOGLOBIN 97.1 CARBOXYHEMOGLOBIN 0.5 METHEMOGLOBIN <0.8 HHb 2.3 TCO2 ARTERIAL 28.6 BLOOD GAS W/ELECTROLYTES (12/31/23 20:44) ARTERIAL BLOOD GAS PH 7.53 H ARTERIAL BLOOD GAS PCO2 34.0 L ARTERIAL BLOOD GAS PO2 102.4 H BICARBONATE TOTAL HCO3 28.0 H BASE EXCESS 5.6 H ABG O2 SATURATION 98.2 ARTERIAL FIO2 50.0 ABG VENT MODE Ventilator ABG VENT RESP RATE 18 ABG TIDAL VOLUME 480.0 ABG PEEP 5.0 ALLENS TEST NOT APPLICABLE SODIUM (POC) 134 L POTASSIUM (POC) 3.64 CHLORIDE (ARTERIAL) 96 L GLUCOSE 128 H IONIZED CALCIUM 1.09 L POC LACTIC ACID 1.57 TOTAL HGB 13.7 OXYHEMOGLOBIN 97.7 CARBOXYHEMOGLOBIN 0.5 METHEMOGLOBIN <0.8 HHb 1.8 TCO2 ARTERIAL 29.1 PTT (12/31/23 14:47) THROMBOPLASTIN TIME PARTIAL 29.6 LACTIC ACID (12/31/23 14:47) LACTIC ACID 1.20 CBC W/AUTO DIFF (12/31/23 14:47) WHITE BLOOD CELL 5.8 RED BLOOD CELL 3.52 L HEMOGLOBIN 10.9L L HEMATOCRIT 32.2L L MEAN CELL VOLUME 91.5 MEAN CELL HGB 31.0 MEAN CELL HGB CONCENTRATION 33.9 RED CELL DISTRIBUTION WIDTH 16.7 PLATELET COUNT 189 MEAN PLATELET VOLUME 9.3 NEUTROPHIL % 91.6 H LYMPHOCYTE % 6.0 L MONOCYTE % 2.1 EOSINOPHIL % 0.0 BASOPHIL % 0.0 NEUTROPHIL # 5.31 LYMPHOCYTE # 0.35 L MONOCYTE # 0.12 EOSINOPHIL # 0.00 BASOPHIL # 0.00 BNP (12/31/23 14:47) B-TYPE NATRIURETIC PEPTIDE 409 H FIB (12/31/23 14:47) FIBRINOGEN 809 H PHOS (12/31/23 14:47) PHOSPHOROUS 2.7 MAG (12/31/23 14:47) MAGNESIUM 2.1 PROTHROMBIN TIME (12/31/23 14:47) PROTHROMBIN TIME PATIENT 13.4 H INTERNATIONAL NORMAL RATIO 1.20 H LDH (12/31/23 14:47) LACTIC DEHYDROGENASE(LDH) 236 COMPREHENSIVE METABOLIC PANEL (12/31/23 14:47) SODIUM 138 POTASSIUM 3.5 CHLORIDE 99 CARBON DIOXIDE 31 GLUCOSE 105 BLOOD UREA NITROGEN 14 GLOMERULAR FILTRATION RATE >=60 max estimate CREATININE 1.00 TOTAL PROTEIN 6.0 ALBUMIN 3.6 CALCIUM 8.3 L BILIRUBIN TOTAL 0.7 SGOT/AST 49 H SGPT/ALT 48 ALKALINE PHOSPHATASE 105.0 COVID Asymp Ag (12/31/23 14:04) COVID 19 Asymptomatic IH AG NEGATIVE LACTIC ACID (12/31/23 09:50) LACTIC ACID 1.3 K (12/31/23 07:12) POTASSIUM 3.6 D -- QUALITY -- -MEDICATIONS- - I attest that the foregoing medication list in the medical record is true, accurate, and complete to the best of my knowledge. -- ATTESTATION -- TIME SPENT ON PATIENT CARE: - Critical Care: time spent apart from any procedure 70 minutes Patient was critically ill due to: Acute hypoxic respiratory failure, acute decompensated heart failure, flash pulmonary edema, heart failure with reduced ejection fraction. My treatment and management were: discussed on ICU multi-disciplinary rounds with nursing, pharmacy, respiratory therapy, case management and consultants including cardiology regarding management of decompensated heart failure, electrophysiology regarding BiV AICD placement. CARE ACTIVITIES / CARE COORDINATION: - I have reviewed the history and repeated the carias elements - I have seen and examined this patient - I have reviewed the progress in the clinical course since the last examination - I have discussed the patient's condition with other members of the care team Signed in PatientKeeper by SHERRIE STEIN MD on 01/01/24 at 10:06 at 1006 SECTION 2 ADDENDUM 1: 01/01/24 1154 PTKEEPER Case discussed with EP, planned for BiV AICD placement tomorrow, request patient remain intubated for procedure. For now, will transition from CPAP back to rate on ventilator, resume sedation. Will evaluate for extubation post-procedure. at 1154 ATTENTION *EDITS and/or ADDENDA must be made in Patient Keeper for this note. * * Edits and ammendments created in [employer] are not visible * * in Patient Keeper or the legal medical record ([facility]). * RPT #: [id number] END OF REPORT [facility] 2024-01-01 07:30:00 [facility] ([facility]) Cardiology Consultation REPORT #: [id number] REPORT STATUS: Signed DATE: 01/01/24 TIME: 729 PATIENT: KOTA MONTES UNIT #: [id number] ROOM #: P.0319 BED: 1 : 61 AGE: 63 SEX: M ATTEND: Parvin Salcido DO ADM AUTHOR: Dioni Hernandez DO CF1 ATTENTION *EDITS and/or ADDENDA must be made in Patient Keeper for this note. * * Edits and ammendments created in [employer] are not visible * * in Patient Keeper or the legal medical record ([facility]). * -- CO-SIGNATURE -- COMMENTS: I have personally seen and examined the patient independently, and reviewed the patient's history, exam, and all cardiac and laboratory data on 01/01/24. I agree with the history, physical, and the assessment and plan as outlined by Dioni Burrell DO, Cardiovascular Fellow. Signed in PatientKeeper by MALACHI FITZGERALD MD on 01/04/24 at 19:31 -- ASSESSMENT AND PLAN -- GENERAL ASSESSMENT: Mr. Montes is a 63 year old male with a PMH of CAD s/p 2V CAB (06/25) and PCI ('06, 06/24, 12/24, 07/25), ischemic cardiomyopathy (EF 25-29%), HTN, HLD, h/o ETOH abuse, tobacco abuse, anxiety/depression, and medical non-compliance initially presenting to [facility] with a chief complaint of shortness of breath on 12/26. Pt found to have a BNP of 546, lactic acidosis and mild SAMMIE. Initial CXR showed bilateral infiltrates, and CTA was negative for PE but noted bilateral consolidation. Pt Intubated despite BIPAP and diuresis. Etiology determined to be due to decompensation attributed to CAP and acute decompensated heart failure. Patient's condition improved, and he was extubated to [place] on 12/27. ICU course complicated by AFib with RVR, with conversion to NSR following initiation of amiodarone. On 12/29, he was downgraded to the medical floor, however shortly after transfer he developed respiratory distress with associated hypoxia, as well as hypotension. He was transitioned to BIPAP and transferred back to the ICU, where he was subsequently re-intubated. Patient transferred to [facility] for management of acute hypoxic and hypercapnic respiratory failure due to suspected flash pulmonary edema. 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 systolic Heart Failure, EF 25-29% - NYHA III #Hx of CAD s/p CABG x2V, multiple PCIs #Hx of Ischemic Cardiomyopathy #Flash Pulmonary Edema #Acute Hypoxic and Hypercapnic Respiratory Failure s/p intubation #Vasogenic Shock #Atrial Fibrillation #LBBB with QRS 160ms #Acute Kidney Injury #Transaminitis #Anemia Plan: -Presented for Acute Hypoxic and Hypercapnic Respiratory Failure s/p intubation likely 2/2 flash pulmonary edema -EKG and Trop reviewed -obtain repeat echo -LBBB and QRS >160ms with EF 25-29%, likely would benefit from ASSOCIATE SOFTWARE ENGINEER-D; EP consulted plan for possible placement tomorrow -keep intubated and sedated until ASSOCIATE SOFTWARE ENGINEER-D placement, then wean vent as tolerated -vasopressors as needed -diuresis as tolerated -monitor hemodynamics, tele, and I/Os Discussed with Dr. Fitzgerald. -- HISTORY -- CONSULT REQUESTED BY: PARVIN SALCIDO DO DATE/TIME AT BEDSIDE: 2024-01-01 07:30 CHIEF COMPLAINT: acute hypoxic respiratory failure HPI: Mr. Montes is a 63 year old male with a PMH of CAD s/p 2V CAB (06/25) and PCI (06, 06/24, 12/24, 07/25), ischemic cardiomyopathy (EF 25-29%), HTN, HLD, h/o ETOH abuse, tobacco abuse, anxiety/depression, and medical non-compliance initially presenting to [facility] with a chief complaint of shortness of breath on 12/26. Pt found to have a BNP of 546, lactic acidosis and mild SAMMIE. Initial CXR showed bilateral infiltrates, and CTA was negative for PE but noted bilateral consolidation. Pt Intubated despite BIPAP and diuresis. Etiology determined to be due to decompensation attributed to CAP and acute decompensated heart failure. Patient's condition improved, and he was extubated to OH on 12/27. ICU course complicated by AFib with RVR, with conversion to NSR following initiation of amiodarone. On 12/29, he was downgraded to the medical floor, however shortly after transfer he developed respiratory distress with associated hypoxia, as well as hypotension. He was transitioned to BIPAP and transferred back to the ICU, where he was subsequently re-intubated. Patient transferred to [facility] for management of acute hypoxic and hypercapnic respiratory failure due to suspected flash pulmonary edema. PAST MEDICAL HISTORY: As above. PAST SURGICAL HISTORY: s/p PCI 2005, 06/2022, 12/2022, 07/27/23 CABG x 2V 06/13/23 FAMILY HISTORY: [place] -SOCIAL HISTORY- -TOBACCO USE- DETAILS/COMMENTS: Prior tobacco use hx -VAPING/INHALED SOLVENTS- DETAILS/COMMENTS: Currently vapes -ALCOHOL USE- DETAILS/COMMENTS: Prior hx -DRUG USE- DETAILS/COMMENTS: Denies recent hx -- ALLERGIES/HOME MEDS -- ALLERGIES: No Known Allergies (UNKNOWN - Allergy) -- SUBJECTIVE -- -REVIEW OF SYSTEMS- COMMENT: Unable to obtain, intubated and sedated. -- OBJECTIVE -- VITALS (12/30 13:46 - 12/31 13:46): Temperature F: 98.6 (98.2 - 98.7) Temperature source: Oral Pulse Rate 69 (69 - 91) Respiratory rate: 23 (12 - 30) Blood pressure: 102/62 (77/35 - 147/92) Blood pressure source: Monitor I/Os (12/30 07:00 - 12/31 07:00): Net -2,186.70 Intake 1,163.30 Output 3,350 -EXAM- GENERAL: Well developed, well nourished, in no apparent distress. HEAD: Normocephalic, atraumatic. MOUTH: Oropharynx without deformities or lesions, normal mucosa.. NECK: No masses, no thyromegaly, no abnormal cervical nodes, trachea midline. CHEST: Grossly normal appearance. LUNGS: Clear bilaterally with normal respiratory effort. HEART: Regular rate and rhythm, normal S1, S2, no murmurs, no rubs, no gallops, no clicks. ABDOMEN: Soft, non-tender, no organomegaly, no masses noted. EXTREMITIES: No clubbing, no cyanosis, no edema. NEUROLOGICAL: Intubated and sedated. PULSES: Pulses normal in all extremities. -- DATA -- MEDICATIONS MAGNESIUM SULFATE 4 G IV ASDIR (PRN) bisacodyL 10 MG RECTAL DAILY PRN MAGNESIUM SULFATE 2 GM IV ASDIR (PRN) ESCITALOPRAM 20 MG FEED-TUBE DAILY SODIUM CHLORIDE 100 mL BAG with/in BUMETANIDE 60 ML IV .Q20H CALCIUM GLUC IN NACL, ISO-OSM 2 GM IV ASDIR PRN PREGABALIN 50 MG FEED-TUBE BID HYDROcodone BITARTRATE/APAP 1 TAB FEED-TUBE Q6H PRN methocarbamoL 750 MG FEED-TUBE TID HYDROmorphone HCL 0.5 MG IV Q3H PRN MUPIROCIN 1 APPLIC NASAL BID GLUCAGON 1 MG IM ASDIR PRN INSULIN LISPRO LOW DOSE SS SUBQ Q6HR SODIUM PHOSPHATE with/in SODIUM CHLORIDE 0.9% 30 MM IV ASDIR (PRN) SOD BIPHOS/POT PHOSPHATE 2 PKT PO ASDIR PRN IPRATROPIUM/ALBUTEROL SULFATE 3 ML NEB RTQ6H POTASSIUM CHLORIDE IN WATER 10 MEQ IV ASDIR (PRN) ACETAMINOPHEN 650 MG FEED-TUBE Q6H PRN SODIUM PHOSPHATE with/in SODIUM CHLORIDE 0.9% 20 MM IV ASDIR (PRN) HALOPERIDOL LACTATE 5 MG IV Q6H PRN dexmedeTOMIDine in 0.9 % NaCL 400 MCG IV TITRATE DEXTROSE 50%-WATER 25 ML IV ASDIR PRN DOCUSATE SODIUM 200 MG PO DAILY POTASSIUM CHLORIDE 20 MEQ PO ASDIR PRN MELATONIN 6 MG PO BEDTIME FOLIC ACID 1 MG FEED-TUBE DAILY ENOXAPARIN SODIUM 40 MG SUBQ DAILY ASPIRIN 81 MG FEED-TUBE DAILY NOREPINEPHRINE BITARTRATE 4 MG IV TITRATE propofoL 1000 MG IV TITRATE HYDROcodone BITARTRATE/APAP 1 TAB FEED-TUBE Q6H PRN polyethylene glycoL 3350 1 PKT PO DAILY TICAGRELOR 90 MG PO Q12HR AMIODARONE HCL 400 MG FEED-TUBE Q12HR LORazepam 1 MG IV Q6H PRN THIAMINE HCL 100 MG FEED-TUBE DAILY (Held) METOPROLOL TARTRATE 12.5 MG FEED-TUBE Q12HR ATORVASTATIN CALCIUM 80 MG FEED-TUBE BEDTIME LABS BASIC METABOLIC PANEL (01/01/24 11:58) SODIUM 137 POTASSIUM 3.6 CHLORIDE 99 CARBON DIOXIDE 27 GLUCOSE 152H H BLOOD UREA NITROGEN 22 GLOMERULAR FILTRATION RATE >=60 max estimate CREATININE 1.10 CALCIUM 9.2 MAG (01/01/24 11:58) MAGNESIUM 1.8 PHOS (01/01/24 11:58) PHOSPHOROUS 3.5 D ARTERIAL BLOOD GAS (01/01/24 06:25) ARTERIAL BLOOD GAS PH 7.46 H ARTERIAL BLOOD GAS PCO2 42.5 ARTERIAL BLOOD GAS PO2 90.1 BICARBONATE TOTAL HCO3 29.2 H BASE EXCESS 4.8 H ABG O2 SATURATION 96.5 ABG TYPE Arterial ARTERIAL FIO2 50.0 ABG VENT MODE Ventilator ALLENS TEST NOT APPLICABLE TOTAL HGB 12.7 L TCO2 ARTERIAL 30.5 H METHEMOGLOBIN <0.8 CBC W/AUTO DIFF (01/01/24 02:54) WHITE BLOOD CELL 6.9 RED BLOOD CELL 3.75 L HEMOGLOBIN 11.5L L HEMATOCRIT 34.3L L MEAN CELL VOLUME 91.5 MEAN CELL HGB 30.7 MEAN CELL HGB CONCENTRATION 33.5 RED CELL DISTRIBUTION WIDTH 16.4 PLATELET COUNT 188 MEAN PLATELET VOLUME 9.7 NEUTROPHIL % 77.3 H LYMPHOCYTE % 13.0 L MONOCYTE % 9.2 EOSINOPHIL % 0.0 BASOPHIL % 0.1 NEUTROPHIL # 5.36 LYMPHOCYTE # 0.90 L MONOCYTE # 0.64 EOSINOPHIL # 0.00 BASOPHIL # 0.01 MAG (01/01/24 02:53) MAGNESIUM 2.0 BASIC METABOLIC PANEL (01/01/24 02:53) SODIUM 136 POTASSIUM 3.9 CHLORIDE 98 CARBON DIOXIDE 27 GLUCOSE 124H H BLOOD UREA NITROGEN 18 GLOMERULAR FILTRATION RATE >=60 max estimate CREATININE 1.10 CALCIUM 9.4 D PHOS (01/01/24 02:53) PHOSPHOROUS 5.0 D BLOOD GAS W/ELECTROLYTES (01/01/24 00:20) ARTERIAL BLOOD GAS PH 7.46 H ARTERIAL BLOOD GAS PCO2 39.1 ARTERIAL BLOOD GAS PO2 88.8 BICARBONATE TOTAL HCO3 27.4 H BASE EXCESS 3.5 H ABG O2 SATURATION 97.7 ARTERIAL FIO2 50.0 ABG VENT MODE Ventilator ALLENS TEST NOT APPLICABLE SODIUM (POC) 135 POTASSIUM (POC) 3.98 CHLORIDE (ARTERIAL) 96 L GLUCOSE 130 H IONIZED CALCIUM 1.18 POC LACTIC ACID 1.62 TOTAL HGB 13.1 OXYHEMOGLOBIN 97.1 CARBOXYHEMOGLOBIN 0.5 METHEMOGLOBIN <0.8 HHb 2.3 TCO2 ARTERIAL 28.6 BLOOD GAS W/ELECTROLYTES (12/31/23 20:44) ARTERIAL BLOOD GAS PH 7.53 H ARTERIAL BLOOD GAS PCO2 34.0 L ARTERIAL BLOOD GAS PO2 102.4 H BICARBONATE TOTAL HCO3 28.0 H BASE EXCESS 5.6 H ABG O2 SATURATION 98.2 ARTERIAL FIO2 50.0 ABG VENT MODE Ventilator ABG VENT RESP RATE 18 ABG TIDAL VOLUME 480.0 ABG PEEP 5.0 ALLENS TEST NOT APPLICABLE SODIUM (POC) 134 L POTASSIUM (POC) 3.64 CHLORIDE (ARTERIAL) 96 L GLUCOSE 128 H IONIZED CALCIUM 1.09 L POC LACTIC ACID 1.57 TOTAL HGB 13.7 OXYHEMOGLOBIN 97.7 CARBOXYHEMOGLOBIN 0.5 METHEMOGLOBIN <0.8 HHb 1.8 TCO2 ARTERIAL 29.1 PTT (12/31/23 14:47) THROMBOPLASTIN TIME PARTIAL 29.6 LACTIC ACID (12/31/23 14:47) LACTIC ACID 1.20 CBC W/AUTO DIFF (12/31/23 14:47) WHITE BLOOD CELL 5.8 RED BLOOD CELL 3.52 L HEMOGLOBIN 10.9L L HEMATOCRIT 32.2L L MEAN CELL VOLUME 91.5 MEAN CELL HGB 31.0 MEAN CELL HGB CONCENTRATION 33.9 RED CELL DISTRIBUTION WIDTH 16.7 PLATELET COUNT 189 MEAN PLATELET VOLUME 9.3 NEUTROPHIL % 91.6 H LYMPHOCYTE % 6.0 L MONOCYTE % 2.1 EOSINOPHIL % 0.0 BASOPHIL % 0.0 NEUTROPHIL # 5.31 LYMPHOCYTE # 0.35 L MONOCYTE # 0.12 EOSINOPHIL # 0.00 BASOPHIL # 0.00 BNP (12/31/23 14:47) B-TYPE NATRIURETIC PEPTIDE 409 H FIB (12/31/23 14:47) FIBRINOGEN 809 H PHOS (12/31/23 14:47) PHOSPHOROUS 2.7 MAG (12/31/23 14:47) MAGNESIUM 2.1 PROTHROMBIN TIME (12/31/23 14:47) PROTHROMBIN TIME PATIENT 13.4 H INTERNATIONAL NORMAL RATIO 1.20 H LDH (12/31/23 14:47) LACTIC DEHYDROGENASE(LDH) 236 COMPREHENSIVE METABOLIC PANEL (12/31/23 14:47) SODIUM 138 POTASSIUM 3.5 CHLORIDE 99 CARBON DIOXIDE 31 GLUCOSE 105 BLOOD UREA NITROGEN 14 GLOMERULAR FILTRATION RATE >=60 max estimate CREATININE 1.00 TOTAL PROTEIN 6.0 ALBUMIN 3.6 CALCIUM 8.3 L BILIRUBIN TOTAL 0.7 SGOT/AST 49 H SGPT/ALT 48 ALKALINE PHOSPHATASE 105.0 COVID Asymp Ag (12/31/23 14:04) COVID 19 Asymptomatic IH AG NEGATIVE Signed in PatientKeeper by Dioni Hernandez DO CF1 on 01/01/24 at 17:26 Cosigned by MALACHI FITZGERALD MD on 01/04/24 at 19:31 at 1931 at 1931 ATTENTION *EDITS and/or ADDENDA must be made in Patient Keeper for this note. * * Edits and ammendments created in [facility] are not visible * * in Patient Keeper or the legal medical record (HPF). * RPT #: [id number] END OF REPORT [facility] 2023-12-31 16:29:00 [facility] ([facility]) Non-Operative Procedure Note REPORT #: [id number] REPORT STATUS: Signed DATE: 12/31/23 TIME: 1628 PATIENT: KOTA MONTES UNIT #: [id number] ROOM #: P.0319 BED: 1 : 61 AGE: 63 SEX: M ATTEND: Parvin Salcido DO ADM AUTHOR: Sherrie Stein MD ATTENTION *EDITS and/or ADDENDA must be made in Patient Keeper for this note. * * Edits and ammendments created in [employer] are not visible * * in Patient Keeper or the legal medical record (HPF). * -- PROCEDURE -- -CODED DIAGNOSES- PRE-PROCEDURE DIAGNOSIS - Cardiogenic shock - Acute respiratory failure with hypoxia and hypercapnia POST-PROCEDURE DIAGNOSIS - Cardiogenic shock - Acute respiratory failure with hypoxia and hypercapnia NAME OF PROCEDURE: Pulmonary artery catheter insertion and right heart catheterization PERFORMED BY: SHERRIE STEIN MD ANESTHESIA/ANALGESIA: 1% lidocaine without epinephrine INDICATION(S): Vascular access, hemodynamic monitoring RISKS/BENEFITS AND CONSENT: Yes TIME-OUT PREP: Yes FINDINGS: Successful insertion of multi-lumen access catheter in right subclavian vein using ultrasound-guidance, followed by right-heart catheterization. COMPLICATION(S): - No ESTIMATED BLOOD LOSS: 5 mls -- DESCRIPTION -- DESCRIPTION OF TECHNIQUE/PROCEDURE: Time out performed, patient, procedure, and site confirmed. MAC Insertion: Chlorhexidine applied to operative site and area then draped in sterile fashion. The vein was identified using ultrasound, and 5cc of 1% lidocaine without epinephrine was injected around the insertion site. After which, an introducer needle was advanced into the vein until return of non-pulsatile, dark blood. The guidewire was then inserted into the introducer needle, and the introducer needle removed. Ultrasound was used to confirm placement of the guidewire within the vein. After confirmation, small vaishali was made at the level of the skin, followed by dilation of the vessel over the guidewire. After dilation, the dilator was removed and then inserted through the catheter, then the dilator/catheter apparatus was inserted over the guidewire and into the vessel using modified-Seldinger technique. After insertion of the catheter, the guidewire and dilator were removed. Both ports were confirmed to draw back blood and flush. The catheter was then sutured in place using a 2-0 silk suture and dressed with a CHG Tegaderm. Lung ultrasound was performed confirming lung sliding in the right hemithorax. Post-placement chest XR confirmed appropriate positioning of the line. Patient tolerated procedure well without any immediate undue complications. Pulmonary Artery Catheter Insertion: After successful MAC insertion, a pulmonary artery catheter was inserted and RHC performed. After zeroing the catheter, the PA catheter was inserted into the MAC to an adequate depth, at which point the balloon was inflated. Advancement of the catheter into the pulmonary artery was confirmed via pressure waveforms. Filling pressures were obtained [PA pressure, 34/11, PCWP 14]. After completion, the PA catheter was withdrawn slightly until a pulmonary artery waveform was obtained, at which point the catheter was locked in place using a sterile cover. Follow up CXR showed the PA catheter seated in the pulmonary artery. Patient tolerated procedure well without any immediate undue complications. Signed in PatientKeeper by SHERRIE STEIN MD on 12/31/23 at 16:31 at 1631 ATTENTION *EDITS and/or ADDENDA must be made in Patient Keeper for this note. * * Edits and ammendments created in [employer] are not visible * * in Patient Keeper or the legal medical record (HPF). * RPT #: [id number] END OF REPORT [facility] 2023-12-31 15:59:00 [facility] ([facility]) Non-Operative Procedure Note REPORT #: [id number] REPORT STATUS: Signed DATE: 12/31/23 TIME: 1559 PATIENT: KOTA MONTES UNIT #: [id number] ROOM #: P.[facility]9 BED: 1 : 61 AGE: 63 SEX: M ATTEND: Parvin Salcido ADM AUTHOR: Sherrie Stein MD ATTENTION *EDITS and/or ADDENDA must be made in Patient Keeper for this note. * * Edits and ammendments created in [employer] are not visible * * in Patient Keeper or the legal medical record (HPF). * -- PROCEDURE -- -CODED DIAGNOSES- PRE-PROCEDURE DIAGNOSIS - Cardiogenic shock - Acute respiratory failure with hypoxia and hypercapnia - Acute kidney injury POST-PROCEDURE DIAGNOSIS - Cardiogenic shock - Acute respiratory failure with hypoxia and hypercapnia - Acute kidney injury NAME OF PROCEDURE: Arterial line insertion PERFORMED BY: SHERRIE STEIN MD INDICATION(S): Hemodynamic monitoring RISKS/BENEFITS AND CONSENT: Yes TIME-OUT PREP: Yes FINDINGS: Successful insertion of 12cm arterial line in right axillary artery using ultrasound-guidance COMPLICATION(S): - No ESTIMATED BLOOD LOSS: 5 mls -- DESCRIPTION -- DESCRIPTION OF TECHNIQUE/PROCEDURE: Axillary area cleaned with chlorhexidine and draped in a sterile fashion. Axillary artery then located and identified with ultrasound and 3cc's of 1% lidocaine instilled into the intended area of insertion. An introducer needle was then inserted into the artery percutaneously under direct ultrasound guidance. Entry into the artery was confirmed with pulsatile flow. A guidewire was then inserted, followed by insertion of an arterial catheter over the guidewire using modified-Seldinger technique. The guidewire was removed from the vessel and confirmed intact. Then the arterial catheter was connected to a transducer, which confirmed an arterial wave form. The catheter was then sutured in place with a 2-0 silk suture and a sterile dressing applied. Patient tolerated the procedure well without any immediate undue complications. Signed in PatientKeeper by SHERRIE STEIN MD on 12/31/23 at 16:00 at 1600 ATTENTION *EDITS and/or ADDENDA must be made in Patient Keeper for this note. * * Edits and ammendments created in [employer] are not visible * * in Patient Keeper or the legal medical record (HPF). * [facility] #: [id number] END OF REPORT [facility] 2023-12-31 14:03:00 [facility] ([facility]) Critical Care H P REPORT #: [id number] REPORT STATUS: Signed DATE: 12/31/23 TIME: 1403 PATIENT: KOTA MONTES UNIT #: [id number] ROOM #: P.0319 BED: 1 : 61 AGE: 63 SEX: M ATTEND: Parvin Salcido DO ADM AUTHOR: Sherrie Stein MD ATTENTION *EDITS and/or ADDENDA must be made in Patient Keeper for this note. * * Edits and ammendments created in [employer] are not visible * * in Patient Keeper or the legal medical record (HPF). * -- HISTORY -- ADMISSION DATE: 2023-12-31 CHIEF COMPLAINT: Acute hypoxic respiratory failure HPI: Patient is a 63-year-old male well-known to critical care with PMH notable for CAD s/p 2V CAB (06/25) and PCI (, 06/24, 12/24, 07/25), ischemic cardiomyopathy (EF 25-29%), HTN, HLD, h/o ETOH abuse, tobacco abuse, anxiety/depression, and medical non-compliance initially presenting to [facility] with a chief complaint of shortness of breath on 12/26. Patient transferred to [facility] for management of acute hypoxic and hypercapnic respiratory failure. History obtained from chart review and discussion with patient's . He initially presented to [facility] with a chief complaint of shortness of breath on 12/26. BNP was elevated to 546, and patient noted to have a lactic acidosis and mild SAMMIE. Initial CXR showed bilateral infiltrates, and CTA was negative for PE but noted bilateral consolidation. He was trialed on BIPAP and diuresed, but despite these interventions he continued to decompensate and was intubated. Patient was admitted to the ICU for ventilator management, the etiology of his decompensation attributed to CAP and acute decompensated heart failure, and patient was started on diuresis, azithro/CTX, steroids, and vasopressors. Patient's condition improved, and he was extubated to OH on 12/27. ICU course complicated by AFib with RVR, with conversion to NSR following initiation of amiodarone. On 12/29, he was downgraded to the medical floor, however shortly after transfer he developed respiratory distress with associated hypoxia, as well as hypotension. He was transitioned to BIPAP and transferred back to the ICU, where he was subsequently re-intubated. Transfer then initiated to [facility] given patient's cardiac history. PAST MEDICAL HISTORY: CAD, ischemic cardiomyopathy (EF 25-29%), HTN, HLD, h/o ETOH abuse, tobacco abuse, anxiety/depression, and medical non-compliance PAST SURGICAL HISTORY: 2V CAB (06/25) PCI (, 06/24, 12/24, 07/25) FAMILY HISTORY: Non-contributory -SOCIAL HISTORY- -TOBACCO USE- DETAILS/COMMENTS: Currently vapes, prior history of tobacco abuse -VAPING/INHALED SOLVENTS- DETAILS/COMMENTS: Currently vapes -ALCOHOL USE- DETAILS/COMMENTS: Prior history -DRUG USE- DETAILS/COMMENTS: Denies recent history 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 with -- ALLERGIES/HOME MEDS -- ALLERGIES: No Known Allergies (UNKNOWN - Allergy) -- SUBJECTIVE -- UNABLE TO OBTAIN REVIEW OF SYSTEMS Intubated -- OBJECTIVE -- VITALS (12/29 14:03 - 12/30 14:03): Temperature F: 98.6 (98.3 - 99.0) Temperature source: Axillary Pulse Rate 91 (75 - 141) Respiratory rate: 18 (9 - 58) Blood pressure: 111/61 (88/51 - 193/112) Blood pressure source: Monitor I/Os (12/29 07:00 - 12/30 07:00): Net -400 Output 400 -EXAM- OTHER: General: Adult male, intubated, sedated, awakens to voice/noxious stimuli, able to follow commands HEENT: NCAT, EOMI, clear conjunctiva, PERRLA, moist oral mucosa Neck: No JVD appreciated CV: RRR, no murmurs Lung: Bibasilar rales, no wheezing or rhonchi, unlabored breathing on ventilator GI: Soft, NT/ND, no rebound or guarding Neuro: Cranial nerves grossly intact, no focal deficits appreciated MSK: Moves all extremities spontaneously, strength appears equal throughout Extremities: Trace pedal edema, warm, palpable pedal pulses bilaterally Psych: Sedated, but agitated when alert -- DATA -- LABS LACTIC ACID (12/31/23 09:50) LACTIC ACID 1.3 K (12/31/23 07:12) POTASSIUM 3.6 D PHOS (12/31/23 05:10) PHOSPHOROUS 2.1 L BASIC METABOLIC PANEL (12/31/23 05:10) SODIUM 133L L POTASSIUM 5.9D H D H CHLORIDE 96L L CARBON DIOXIDE 32H H ANION GAP 10.9 GLUCOSE 95 BLOOD UREA NITROGEN 14 GLOMERULAR FILTRATION RATE >=60 max estimate CREATININE 1.2 BUN/CREATININE RATIO 11.7 L CALCIUM 8.3 L CBC W/AUTO DIFF (12/31/23 05:10) WHITE BLOOD CELL 8.0 RED BLOOD CELL 3.70 L HEMOGLOBIN 11.5L L HEMATOCRIT 34.7L L MEAN CELL VOLUME 94 D MEAN CELL HGB 31.1 MEAN CELL HGB CONCENTRATION 33.1 RED CELL DISTRIBUTION WIDTH 17.0 H PLATELET COUNT 205 MEAN PLATELET VOLUME 10.1 NEUTROPHIL % 75.4 IMMATURE GRANULOCYTE % 0.8 LYMPHOCYTE % 12.9 L MONOCYTE % 10.0 EOSINOPHIL % 0.5 BASOPHIL % 0.4 NUCLEATED RBC % 0.0 NEUTROPHIL # 6.02 IMMATURE GRANULOCYTE # 0.060 LYMPHOCYTE # 1.03 L MONOCYTE # 0.80 EOSINOPHIL # 0.04 BASOPHIL # 0.03 NUCLEATED RBC # 0.000 MAG (12/31/23 05:10) MAGNESIUM 1.7 TROP-I HIGH SEN (12/31/23 05:10) TROP-I HIGH SENSITIVITY 155 *H LACTIC ACID (12/31/23 05:10) LACTIC ACID 2.1 D-DIMER (12/31/23 05:10) D-DIMER 3335 H ARTERIAL BLOOD GAS (12/31/23 03:42) ARTERIAL BLOOD GAS PH 7.491 H ARTERIAL BLOOD GAS PCO2 37.6 ARTERIAL BLOOD GAS PO2 276.5 H BICARBONATE TOTAL HCO3 28.1 H BASE EXCESS 4.6 H ABG O2 SATURATION 99.8 H ABG TYPE Arterial ARTERIAL FIO2 100.0 PaO2/FiO2 276.50 ABG VENT MODE AC ABG TIDAL VOLUME 480 ABG PEEP 10.0 ALLENS TEST Yes TOTAL HGB 12.4 L OXYHEMOGLOBIN 99.2 H CARBOXYHEMOGLOBIN 0.3 METHEMOGLOBIN <0.8 TCO2 ARTERIAL 29.2 H TROP-I HIGH SEN (12/31/23 00:12) TROP-I HIGH SENSITIVITY 200 *H COMPREHENSIVE METABOLIC PANEL (12/30/23 18:37) SODIUM 133L L POTASSIUM 3.7 CHLORIDE 95L L CARBON DIOXIDE 29 ANION GAP 12.7 GLUCOSE 110H H BLOOD UREA NITROGEN 12 GLOMERULAR FILTRATION RATE >=60 max estimate CREATININE 1.1 BUN/CREATININE RATIO 10.9 L TOTAL PROTEIN 6.9 ALBUMIN 4.0 CALCIUM 8.7 BILIRUBIN TOTAL 0.8 SGOT/AST 166 D H SGPT/ALT 79 D H ALKALINE PHOSPHATASE 146 D H CBC W/AUTO DIFF (12/30/23 18:37) WHITE BLOOD CELL 11.1H H RED BLOOD CELL 3.97 L HEMOGLOBIN 12.8L L HEMATOCRIT 35.7L L MEAN CELL VOLUME 90 MEAN CELL HGB 32.2 MEAN CELL HGB CONCENTRATION 35.9 RED CELL DISTRIBUTION WIDTH 16.4 H PLATELET COUNT 238 MEAN PLATELET VOLUME 10.3 NEUTROPHIL % 83.4 H IMMATURE GRANULOCYTE % 1.0 LYMPHOCYTE % 5.9 L MONOCYTE % 9.5 EOSINOPHIL % 0.0 BASOPHIL % 0.2 NUCLEATED RBC % 0.0 NEUTROPHIL # 9.23 H IMMATURE GRANULOCYTE # 0.110 H LYMPHOCYTE # 0.65 L MONOCYTE # 1.05 H EOSINOPHIL # 0.00 BASOPHIL # 0.02 NUCLEATED RBC # 0.000 MAG (12/30/23 18:37) MAGNESIUM 1.8 TROP-I HIGH SEN (12/30/23 18:37) TROP-I HIGH SENSITIVITY 207 *H GLU BED (12/30/23 17:41) GLUBED 150 H LACTIC ACID (12/30/23 17:39) LACTIC ACID 2.5 H GLU BED (12/30/23 15:15) GLUBED 113 H -- ASSESSMENT AND PLAN -- RESUSCITATION DISCUSSION: Full per surrogate medical decision-maker () GENERAL ASSESSMENT: Patient is a 63-year-old male well-known to critical care with PMH notable for CAD s/p 2V CAB (06/25) and PCI ('06, 06/24, 12/24, 07/25), ischemic cardiomyopathy (EF 25-29%), HTN, HLD, h/o ETOH abuse, tobacco abuse, anxiety/depression, and medical non-compliance initially presenting to [facility] with a chief complaint of shortness of breath on 12/26. Patient transferred to [facility] for management of acute hypoxic and hypercapnic respiratory failure. Problem List: -Acute Hypoxic and Hypercapnic Respiratory Failure -Acute Decompensated Heart Failure -Flash Pulmonary Edema -Vasogenic Shock -Atrial Fibrillation -Acute Kidney Injury -Volume Overload -Acute Shock Liver -Acute Blood Loss Anemia -H/o CAD/Ischemic Cardiomyopathy Plan: Pain/Sedation -Continue propofol/Precedex gtts while intubated, goal RASS 0 to -1 -Multi-modal pain regimen Neuro/Psych -Neurologically intact, exam non-focal -Neurochecks per protocol, frequent reorientation/redirection, optimize sleep/wake cycle, delirium precautions, SATs per protocol Respiratory -Suspect flash pulmonary edema likely etiology of recurrent respiratory failure -Continue lung-protective ventilation, wean to maintain goal SpO2 >92% -Aggressive diuresis with Bumex 1mg IV Q8H -Serial CXRs/ABGs, CPT, pulmonary hygiene, SBTs per protocol Cardiovascular -TTE (12/26): EF 20-30%, severely reduced LV function, severe global hypokinesis, normal RV function -Hypotensive, but without evidence of shock -A-line/PA catheter in place, heart failure appears compensated -Continue vasopressors to maintain MAP >65 -Start Bumex 1mg IV Q8H -Hold GDMT/antihypertensives -Previously in AFib with RVR, now NSR, continue amiodarone PO -Resume DAPT/statin given extensive h/o CAD -F/u TTE -Cardiology following Gastrointestinal/Nutrition -LFTs elevated, likely 2/2 recent shock-state -Trend LFTs, avoid hepatotoxins -Start TFs while intubated, monitor residuals per protocol -SUP, bowel regimen Renal -Cr 1.4 at OSH, improved with diuresis -Cr now at baseline -Strict I/O -Continue diuresis, monitor renal function -Electrolyte protocol, maintain K >4.0, Phos >3.0, Mg >2.0, Ca >1.1 Infectious Disease -Completed course of CAP at OSH, currently no concerns for infection -Hold empiric abx, monitor fever curve Endocrine -SSI PRN, maintain goal BS 140-180, hypoglycemia protocol HEME -Acute blood loss anemia, currently without evidence of bleeding -Transfuse for goal Hgb >7.0, platelets >10k or 20k with bleeding, and fibrinogen >150 MSK -PT/OT once extubated PPX -DVT: LSQ -GI: PPI QD GOC -Code: Full per surrogate medical decision-maker () -Advance Care Planning: None per Dispo: Continue ICU level care Medications reviewed with ICU pharmacist Patient seen and examined. History and clinical course reviewed since last examination. Patient is critically ill and at risk of imminent life threatening injury, organ failure, or . -- QUALITY -- -MEDICATIONS- - I attest that the foregoing medication list in the medical record is true, accurate, and complete to the best of my knowledge. -- ATTESTATION -- TIME SPENT ON PATIENT CARE: - Critical Care 95 minutes Patient was critically ill due to: Acute hypoxic respiratory failure, acute decompensated heart failure, flash pulmonary edema. My treatment and management were: discussed on ICU multi-disciplinary rounds with nursing, pharmacy, respiratory therapy, case management and consultants including cardiology regarding management of decompensated heart failure. CARE ACTIVITIES / CARE COORDINATION: - I have reviewed the history and repeated the carias elements - I have seen and examined this patient - I have discussed the patient's condition with other members of the care team Signed in PatientKeeper by SHERRIE STEIN MD on 12/31/23 at 19:07 at 1907 ATTENTION *EDITS and/or ADDENDA must be made in Patient Keeper for this note. * * Edits and ammendments created in [employer] are not visible * * in Patient Keeper or the legal medical record (HPF). * RPT #: [id number] END OF REPORT [facility] 2023-12-31 12:22:00 [facility] ([facility]) Intensive Care Progress Note REPORT #: [id number] REPORT STATUS: Signed DATE: 12/31/23 TIME: 1222 PATIENT: KOTA MONTES UNIT #: [id number] ROOM #: [id number] BED: A : 62 AGE: 63 SEX: M ATTEND: Pete Vang MD ADM AUTHOR: Ciera Freedman BENCH REPAIR TECHNICIAN ATTENTION *EDITS and/or ADDENDA must be made in Patient Keeper for this note. * * Edits and ammendments created in [facility] are not visible * * in Patient Keeper or the legal medical record (HPF). * -- CO-SIGNATURE -- COMMENTS: Authorized and Performed by: Joey Daily MD Patient seen and examined in the ICU. Documentation, labs, imaging, and medications reviewed. Case discussed on multidisciplinary rounds. Interval assessment and plan: Troponins mildly elevated, discussed with transfer team at [facility]. Remains intubated, ABG reviewed, on minimal settings, plan for sedation vacation Continue with diuretics and antibiotics Follow-up with cultures Otherwise agree with midlevel's findings including physical exam, assessment and plan as listed below. I personally provided critical care time as listed below in the treatment of this patient. I have personally evaluated the patient along with the involvement of the PA/CURRICULUM CONSULTANT. I have performed all aspects of the MDM including evaluation of the patient's condition, patient management, time at bedside, time reviewing labs, test results, appropriate imaging, and documentation as well as coordinating care. Total critical care time 35 minutes excluding billable procedures and CURRICULUM CONSULTANT time spent Signed in PatientKeeper by JOEY DAILY MD on 12/31/23 at 18:50 -- ASSESSMENT AND PLAN -- GENERAL ASSESSMENT: [facility] Critical Care Note Assessment Acute Hypoxic/Hypercapnic Respiratory Failure Acute on chronic HFrEF Exacerbation Acute Flash Pulmonary Edema Hypertensive emergency A-fib with RVR Cardiogenic shock Bilateral lower lobe pneumonia HTN Hyponatremia SAMMIE Hyperglycemia Anxiety HLD CAD w/ PCI stent x1 CABG x2 Tobacco use Plan: Extubated 12/28, Reintubated 12/29. Accepted to [facility] with plans to transfer today Neuro- Anxiolytics as needed CV- Hemodynamics reviewed, acceptable currently TTE with EF 25-30% and severe global hypokinesis Pressors weaned off, cardiology following Diuretics, beta-miguelangel, DAPT EP eval pending for AICD D-Dimer : 3335 A-fib-IV Amio, monitor for improvement Pulm- Monitor pulse oximetry Goal SPO2 greater than 90% CXR: Diffuse bilateral airspace opacifications with mid to lower and right lung predominance. Small bilateral pleural effusions CTA : 12/25 No PE detected. Bilateral consolidations. Interval worsening since 08/22/2023. Intubated in ED 12/25 for respiratory Failure Extubated 12/27 Had worsening hypoxia briefly, now down to 5 L nasal cannula O2, wean for sats more than 92%, Not on home oxygen Empiric antibiotics for CAP coverage Steroids and bronchodilators started on 12/29 Reintubation 12/29 GI- ADAT Renal- BMP reviewed Replace electrolytes as indicated Monitor UOP Avoid nephrotoxins; Renal function improving IV Lasix, nephrology following ID- Trend WBC, fever curve Empiric Abx; Ceftriaxone and azithromycin Urine strep/Legionella antigen negative Cultures negative to date Heme- CBC reviewed No overt bleeding Trend Hgb, platelets Endo- Accuchecks Monitor for hypoglycemia Code: FULL DVT ppx: SCDs/Lovenox PPI ppx : Protonix Plan of care discussed with patient. Discussed with RN, RT and in multidisciplinary rounds Critically ill, continue with close monitoring in ICU --------- Subjective: Events noted Discussed on multidisciplinary rounds Re-intubated 12/29 1630 Troponin elevated Transfer to [facility] pending Planned for doppler HPI: Mr. Montes is a 63 yo male with pmx of HTN, HLD, CAD, CHF, CABG 06/25 who presented to ED with generalized malaise. He told his that he was not feeling well and drove himself to the hospital. Patient was in respiratory distress , refractory to Bipap and was subsequently intubated in ED. Flash pulmonary edema post intubation noted, and 80 mg IV Lasix was administered. Patient is being accepted to ICU for HLOC and continued monitoring. Past medical history: HTN, HLD, CAD, CHF PSurgHx: CABG in June 2023, PCI with stent , Multiple intubations FamHx: nc SocHx: ETOH quit June 2023, Ex smoker 2pk/40 yrs, Currently vapes Review of systems: Limited, as per HPI Physical Exam General: NAD Eyes: Anicteric sclerae. Mouth: MMM Neck: Supple. CV: Irregular rate and rhythm. Normal S1 and S2. Pulm: Good effort, no wheezing or Rales appreciated. Abdomen: Soft, nontender.BS+ Extremities: Trace lower extremity edema. Skin: Warm, dry. Neuro: Awake, no gross deficits Psych: Restless, anxious I have personally provided 32 minutes of critical care time. Time includes review of laboratory data, radiology results, discussion with consultants, family and staff and monitoring for potential decompensation. Interventions were performed as documented above. This is exclusive of time spent on separately billable procedures. -- OBJECTIVE -- VITALS (12/29 12:22 - 12/30 12:22): Temperature F: 98.3 (98.3 - 99.0) Temperature source: Oral Pulse Rate 96 (75 - 141) Respiratory rate: 16 (9 - 58) Blood pressure: 106/59 (88/51 - 193/112) Blood pressure source: Monitor I/Os (12/29 07:00 - 12/30 07:00): Net -400 Output 400 -- DATA -- MEDICATIONS AZITHROMYCIN 500 MG PO BEDTIME MAGNESIUM 1 GM IV Q1H (PRN) methylPREDNISolone SOD SUCC 40 MG IV DAILY cefTRIAXone with/in WATER FOR INJECTION,STERILE 1000 MG IV BEDTIME IPRATROPIUM BROMIDE 0.5 MG NEB RTQ6H WA PROMETHAZINE HCL 12.5 MG PO Q8H PRN SODIUM PHOSPHATE with/in SODIUM CHLORIDE 0.9% 30 MM IV ASDIR (PRN) SIMETHICONE 80 MG PO QID PRN IPRATROPIUM BROMIDE 0.5 MG NEB RTQ4H PRN MAGNESIUM 1 GM IV Q1H (PRN) POTASSIUM BICARBONATE/CIT AC 20 MEQ PO ASDIR (PRN) propofoL 1000 MG IV ASDIR MIDODRINE HCL 5 MG PO TID@0600,1200,1700 (PRN) SODIUM PHOSPHATE with/in SODIUM CHLORIDE 0.9% 15 MM IV ASDIR (PRN) ACETAMINOPHEN 650 MG PO Q4H PRN ENOXAPARIN SODIUM 40 MG SUBQ DAILY MAGNESIUM 1 GM IV ASDIR (PRN) IPRATROPIUM/ALBUTEROL SULFATE 3 ML NEB RTQ4H PRN AMIODARONE HCL with/in DEXTROSE 5%-WATER 450 MG IV ASDIR POTASSIUM CHLORIDE 20 MEQ IV ASDIR (PRN) FUROSEMIDE 20 MG IV Q8HR POTASSIUM CHLORIDE 20 MEQ PO DAILY clopidogreL 75 MG PO DAILY SODIUM PHOSPHATE with/in SODIUM CHLORIDE 0.9% 20 MM IV ASDIR (PRN) AMIODARONE HCL 200 MG PO Q12HR ASPIRIN 81 MG PO DAILY ATORVASTATIN CALCIUM 40 MG PO DAILY METOPROLOL TARTRATE 12.5 MG PO Q12HR MELATONIN 5 MG PO BEDTIME OLANZapine 5 MG PO Q6H PRN SOD BIPHOS/POT PHOSPHATE 1 PKT PO ASDIR (PRN) LORazepam 1 MG PO BID PRN LABS LACTIC ACID (12/31/23 09:50) LACTIC ACID 1.3 K (12/31/23 07:12) POTASSIUM 3.6 D PHOS (12/31/23 05:10) PHOSPHOROUS 2.1 L BASIC METABOLIC PANEL (12/31/23 05:10) SODIUM 133L L POTASSIUM 5.9D H D H CHLORIDE 96L L CARBON DIOXIDE 32H H ANION GAP 10.9 GLUCOSE 95 BLOOD UREA NITROGEN 14 GLOMERULAR FILTRATION RATE >=60 max estimate CREATININE 1.2 BUN/CREATININE RATIO 11.7 L CALCIUM 8.3 L CBC W/AUTO DIFF (12/31/23 05:10) WHITE BLOOD CELL 8.0 RED BLOOD CELL 3.70 L HEMOGLOBIN 11.5L L HEMATOCRIT 34.7L L MEAN CELL VOLUME 94 D MEAN CELL HGB 31.1 MEAN CELL HGB CONCENTRATION 33.1 RED CELL DISTRIBUTION WIDTH 17.0 H PLATELET COUNT 205 MEAN PLATELET VOLUME 10.1 NEUTROPHIL % 75.4 IMMATURE GRANULOCYTE % 0.8 LYMPHOCYTE % 12.9 L MONOCYTE % 10.0 EOSINOPHIL % 0.5 BASOPHIL % 0.4 NUCLEATED RBC % 0.0 NEUTROPHIL # 6.02 IMMATURE GRANULOCYTE # 0.060 LYMPHOCYTE # 1.03 L MONOCYTE # 0.80 EOSINOPHIL # 0.04 BASOPHIL # 0.03 NUCLEATED RBC # 0.000 MAG (12/31/23 05:10) MAGNESIUM 1.7 TROP-I HIGH SEN (12/31/23 05:10) TROP-I HIGH SENSITIVITY 155 *H LACTIC ACID (12/31/23 05:10) LACTIC ACID 2.1 D-DIMER (12/31/23 05:10) D-DIMER 3335 H ARTERIAL BLOOD GAS (12/31/23 03:42) ARTERIAL BLOOD GAS PH 7.491 H ARTERIAL BLOOD GAS PCO2 37.6 ARTERIAL BLOOD GAS PO2 276.5 H BICARBONATE TOTAL HCO3 28.1 H BASE EXCESS 4.6 H ABG O2 SATURATION 99.8 H ABG TYPE Arterial ARTERIAL FIO2 100.0 PaO2/FiO2 276.50 ABG VENT MODE AC ABG TIDAL VOLUME 480 ABG PEEP 10.0 ALLENS TEST Yes TOTAL HGB 12.4 L OXYHEMOGLOBIN 99.2 H CARBOXYHEMOGLOBIN 0.3 METHEMOGLOBIN <0.8 TCO2 ARTERIAL 29.2 H TROP-I HIGH SEN (12/31/23 00:12) TROP-I HIGH SENSITIVITY 200 *H COMPREHENSIVE METABOLIC PANEL (12/30/23 18:37) SODIUM 133L L POTASSIUM 3.7 CHLORIDE 95L L CARBON DIOXIDE 29 ANION GAP 12.7 GLUCOSE 110H H BLOOD UREA NITROGEN 12 GLOMERULAR FILTRATION RATE >=60 max estimate CREATININE 1.1 BUN/CREATININE RATIO 10.9 L TOTAL PROTEIN 6.9 ALBUMIN 4.0 CALCIUM 8.7 BILIRUBIN TOTAL 0.8 SGOT/AST 166 D H SGPT/ALT 79 D H ALKALINE PHOSPHATASE 146 D H CBC W/AUTO DIFF (12/30/23 18:37) WHITE BLOOD CELL 11.1H H RED BLOOD CELL 3.97 L HEMOGLOBIN 12.8L L HEMATOCRIT 35.7L L MEAN CELL VOLUME 90 MEAN CELL HGB 32.2 MEAN CELL HGB CONCENTRATION 35.9 RED CELL DISTRIBUTION WIDTH 16.4 H PLATELET COUNT 238 MEAN PLATELET VOLUME 10.3 NEUTROPHIL % 83.4 H IMMATURE GRANULOCYTE % 1.0 LYMPHOCYTE % 5.9 L MONOCYTE % 9.5 EOSINOPHIL % 0.0 BASOPHIL % 0.2 NUCLEATED RBC % 0.0 NEUTROPHIL # 9.23 H IMMATURE GRANULOCYTE # 0.110 H LYMPHOCYTE # 0.65 L MONOCYTE # 1.05 H EOSINOPHIL # 0.00 BASOPHIL # 0.02 NUCLEATED RBC # 0.000 MAG (12/30/23 18:37) MAGNESIUM 1.8 TROP-I HIGH SEN (12/30/23 18:37) TROP-I HIGH SENSITIVITY 207 *H GLU BED (12/30/23 17:41) GLUBED 150 H LACTIC ACID (12/30/23 17:39) LACTIC ACID 2.5 H GLU BED (12/30/23 15:15) GLUBED 113 H Signed in PatientKeeper by Ciera Freedman CNP on 12/31/23 at 12:34 Cosigned by JOEY DAILY MD on 12/31/23 at 18:50 at 1850 at 1850 ATTENTION *EDITS and/or ADDENDA must be made in Patient Keeper for this note. * * Edits and ammendments created in [facility] are not visible * * in Patient Keeper or the legal medical record ([facility]). * RPT #: [id number] END OF REPORT [facility] 2023-12-31 12:14:00 [facility] ([facility]) Hospitalist D/C Summary REPORT #: [id number] REPORT STATUS: Signed DATE: 12/31/23 TIME: 1214 PATIENT: KOTA MONTES UNIT #: [id number] ROOM #: [place] [id number] BED: A : 61 AGE: 63 SEX: M ATTEND: Pete Vang MD ADM AUTHOR: Pete Vang MD ATTENTION *EDITS and/or ADDENDA must be made in Patient Keeper for this note. * * Edits and ammendments created in [employer] are not visible * * in Patient Keeper or the legal medical record ([facility]). * -- PROBLEMS/PROCEDURES -- ADMISSION DATE: 12/26/23 ADMITTING DIAGNOSES: - Acute kidney injury - Acute on chronic systolic (congestive) heart failure - Acute respiratory failure with hypoxia and hypercapnia - Alcohol abuse - Anxiety disorder, unspecified - Atrial fibrillation with RVR - Cardiogenic shock - Coronary artery disease - Full code status - Hyperlipidemia - Hypertension - termite treater helper (current) use of antithrombotics/antiplatelets - termite treater helper (current) use of aspirin - Nausea - Pneumonia, unspecified organism - Respiratory failure, unspecified with hypoxia - Systolic dysfunction with acute on chronic heart failure DISCHARGE DATE: 12/31/23 DISCHARGE DIAGNOSES: - Acute kidney injury - Acute on chronic systolic (congestive) heart failure - Acute respiratory failure with hypoxia and hypercapnia - Alcohol abuse - Anxiety disorder, unspecified - Atrial fibrillation with RVR - Cardiogenic shock - Coronary artery disease - Hyperlipidemia - Hypertension - half-way (current) use of antithrombotics/antiplatelets - termite treater helper (current) use of aspirin - Nausea - Pneumonia, unspecified organism - Respiratory failure, unspecified with hypoxia - Systolic dysfunction with acute on chronic heart failure - Full code status -- HOSPITAL COURSE -- HOSPITAL COURSE: 63-year-old male with past medical history of hypertension, dyslipidemia, coronary artery disease s/p CABG, and congestive heart failure presented to the hospital complaining of shortness of breath. Patient was found to be volume overloaded and had a BNP of 546. He was also hyponatremic and had lactic acidosis. CT of the chest was performed and showed no evidence of a PE but did show bilateral consolidations. Patient had significant dyspnea and hypoxia and was initially placed on BiPAP but subsequently required intubation due to flash pulmonary edema. Patient was extubated 3 days later on 12/28. However, he had another episode of flash pulmonary edema the following day and required reintubation. Patient's troponins increased likely as a result of increased demand. However, patient's family requested the patient be transferred to the [facility] where his business department chair had previously treated him and he had his CABG performed. The patient was accepted and transferred accordingly. -- DISCHARGE MEDICATIONS -- ALLERGIES: No Known Allergies (UNKNOWN - Allergy) DISCHARGE MEDICATIONS: Please refer to Discharge Medication list for a complete list of discharge medications Acetaminophen Tab (Tylenol Tab) 650 MG PO Q4H PRN headache/pain scale 1-3 Albuterol/Ipratrop Neb Soln (Duoneb Neb Soln) 3 ML NEB RTQ4H PRN wheezing / shortness of breath Amiodarone Tab (Cordarone Tab) 200 MG PO Q12HR Amiodarone Drip (Co 450 MG IV ASDIR (Amiodarone Drip (CordaroneDrip) 450MG/250ML D5W) Aspirin EC Tab (Ecotrin Tab) 81 MG PO DAILY Atorvastatin Tab (Lipitor Tab) 40 MG PO DAILY Azithromycin (Z-Priya) (Z-Priya) 500 MG PO BEDTIME cefTRIAXone Inj (Rocephin Inj) 1 GM IV DAILY Clopidogrel Tab (Plavix Tab) 75 MG PO DAILY Enoxaparin 40mg/0.4mL Inj (Lovenox 40mg/0.4mL Inj) 40 MG SUBQ DAILY Furosemide Inj (Lasi 20 MG IV Q8HR (Furosemide Inj (Lasix Inj)) Ipratropium Neb Soln (Atrovent Neb Soln) 0.5 MG NEB RTQ4H PRN bronchospasm Ipratropium Neb Soln (Atrovent Neb Soln) 0.5 MG NEB RTQ6H WA LORazepam Tab (Ativan Tab) 1 MG PO BID PRN anxiety Melatonin Tab (Melatonin Tab) 5 MG PO BEDTIME methylPREDNISolone I 40 MG IV DAILY (methylPREDNISolone Inj (Solu-MEDROL Inj)) Metoprolol Tartrate Tab (Lopressor Tab) 12.5 MG PO Q12HR Midodrine Tab 5 mg(ProAmatine Tab 5mg) 5 MG PO PRN sbp less than 90 (Frequency: TID@0600,1200,1700) OLANZapine Tab (ZyPREXA Tab) 5 MG PO Q6H PRN agitation or anxiety Potassium Chlor Tab.ER (K Dur Tab) 20 MEQ PO DAILY Promethazine Tab (Phenergan Tab) 12.5 MG PO Q8H PRN nausea Propofol Drip (Dipri 1000 MG IV ASDIR (Propofol Drip (Diprivan Drip)) Simethicone Chew Tab (Mylanta Gas Chew Tab) 80 MG PO QID PRN gas -- DISCHARGE INSTRUCTIONS -- PENDING LABS/TESTS AT DISCHARGE: MRSA PCR Surveillance Screen (12/31/23 14:04) Status: Received MRSA PCR Surveillance Screen (12/31/23 14:04) Status: Received BRONCHIAL CULTURE (12/30/23 19:13) Status: Received AFB CONCENTRATION, CULT AFB, TB AMP PROBE... (12/30/23 19:13) Status: Received CULT LEGIONELLA-SPECIES, CULT LEGIONELLA-SPECIES (12/30/23 19:13) Status: Received CULT FUNGUS, FUNGUS IDENTIFICATION, SMEAR FUNGUS (12/30/23 19:13) Status: Received VIRUS CULTURE (12/30/23 19:13) Status: Received PK DISCHARGE ORDERS: DC Order - No eCQM 2019.2 Details: Details: Order number: [id number] Category: PKDC - PK Discharge Orders Order status: Transmitted Details: Discharge order: Yes Discharge to: Acute Care Hospital Diet: Tube Feeding Activity: Bedrest PCP follow up timeframe: In 2-3 weeks Additional Discharge Routines: PCP Follow-Up Ordered by: Pete Vang MD Dec 31, 2023 11:50am Entered by: Pete Vang MD Service date: Dec 31, 2023 11:50am Discharge w/Instructions ADDTIONAL DISCHARGE INSTRUCTIONS: Emergency Instructions: The patient was instructed to present to the nearest Emergency Department or call 911 should their symptoms return or worsen.; -- OBJECTIVE -- VITALS (12/29 15:14 - 12/30 15:14): Temperature F: 98.6 (98.3 - 99.0) Temperature source: Axillary Pulse Rate 77 (75 - 141) Respiratory rate: 18 (9 - 58) Blood pressure: 89/54 (88/51 - 193/112) Blood pressure source: Monitor I/Os (12/29 07:00 - 12/30 07:00): Net -400 Output 400 -EXAM- GENERAL: Well developed, well nourished. Sitting up and appears anxious HEAD: Normocephalic, atraumatic. EYES: conjunctiva and sclera clear, without nystagmus, lids normal EARS: Normal external ear canals and grossly normal hearing. NOSE: No deformity. MOUTH: Oropharynx without deformities or lesions, normal mucosa. NECK: Supple CHEST: Grossly normal appearance. LUNGS: Clear bilaterally with normal respiratory effort. HEART: Irregularly irregular rhythm and rate, no murmurs ABDOMEN: Soft, non-tender. MUSCULOSKELETAL: No deformity. EXTREMITIES: No edema. NEUROLOGICAL: No focal deficits, cranial nerves II-XII grossly intact, normal coordination, normal muscle tone. PULSES: Pulses normal in all extremities. SKIN: Intact without significant lesions, or rashes. LYMPH NODES: No significant cervical node adenopathy. PSYCHIATRIC: Alert and oriented to time, person, place. Appears anxious. Intact judgment and insight. -- DATA -- LABS CBC W/AUTO DIFF (12/31/23 14:47) WHITE BLOOD CELL 5.8 RED BLOOD CELL 3.52 L HEMOGLOBIN 10.9L L HEMATOCRIT 32.2L L MEAN CELL VOLUME 91.5 MEAN CELL HGB 31.0 MEAN CELL HGB CONCENTRATION 33.9 RED CELL DISTRIBUTION WIDTH 16.7 PLATELET COUNT 189 MEAN PLATELET VOLUME 9.3 NEUTROPHIL % 91.6 H LYMPHOCYTE % 6.0 L MONOCYTE % 2.1 EOSINOPHIL % 0.0 BASOPHIL % 0.0 NEUTROPHIL # 5.31 LYMPHOCYTE # 0.35 L MONOCYTE # 0.12 EOSINOPHIL # 0.00 BASOPHIL # 0.00 LACTIC ACID (12/31/23 09:50) LACTIC ACID 1.3 K (12/31/23 07:12) POTASSIUM 3.6 D PHOS (12/31/23 05:10) PHOSPHOROUS 2.1 L BASIC METABOLIC PANEL (12/31/23 05:10) SODIUM 133L L POTASSIUM 5.9D H D H CHLORIDE 96L L CARBON DIOXIDE 32H H ANION GAP 10.9 GLUCOSE 95 BLOOD UREA NITROGEN 14 GLOMERULAR FILTRATION RATE >=60 max estimate CREATININE 1.2 BUN/CREATININE RATIO 11.7 L CALCIUM 8.3 L CBC W/AUTO DIFF (12/31/23 05:10) WHITE BLOOD CELL 8.0 RED BLOOD CELL 3.70 L HEMOGLOBIN 11.5L L HEMATOCRIT 34.7L L MEAN CELL VOLUME 94 D MEAN CELL HGB 31.1 MEAN CELL HGB CONCENTRATION 33.1 RED CELL DISTRIBUTION WIDTH 17.0 H PLATELET COUNT 205 MEAN PLATELET VOLUME 10.1 NEUTROPHIL % 75.4 IMMATURE GRANULOCYTE % 0.8 LYMPHOCYTE % 12.9 L MONOCYTE % 10.0 EOSINOPHIL % 0.5 BASOPHIL % 0.4 NUCLEATED RBC % 0.0 NEUTROPHIL # 6.02 IMMATURE GRANULOCYTE # 0.060 LYMPHOCYTE # 1.03 L MONOCYTE # 0.80 EOSINOPHIL # 0.04 BASOPHIL # 0.03 NUCLEATED RBC # 0.000 MAG (12/31/23 05:10) MAGNESIUM 1.7 TROP-I HIGH SEN (12/31/23 05:10) TROP-I HIGH SENSITIVITY 155 *H LACTIC ACID (12/31/23 05:10) LACTIC ACID 2.1 D-DIMER (12/31/23 05:10) D-DIMER 3335 H ARTERIAL BLOOD GAS (12/31/23 03:42) ARTERIAL BLOOD GAS PH 7.491 H ARTERIAL BLOOD GAS PCO2 37.6 ARTERIAL BLOOD GAS PO2 276.5 H BICARBONATE TOTAL HCO3 28.1 H BASE EXCESS 4.6 H ABG O2 SATURATION 99.8 H ABG TYPE Arterial ARTERIAL FIO2 100.0 PaO2/FiO2 276.50 ABG VENT MODE AC ABG TIDAL VOLUME 480 ABG PEEP 10.0 ALLENS TEST Yes TOTAL HGB 12.4 L OXYHEMOGLOBIN 99.2 H CARBOXYHEMOGLOBIN 0.3 METHEMOGLOBIN <0.8 TCO2 ARTERIAL 29.2 H TROP-I HIGH SEN (12/31/23 00:12) TROP-I HIGH SENSITIVITY 200 *H COMPREHENSIVE METABOLIC PANEL (12/30/23 18:37) SODIUM 133L L POTASSIUM 3.7 CHLORIDE 95L L CARBON DIOXIDE 29 ANION GAP 12.7 GLUCOSE 110H H BLOOD UREA NITROGEN 12 GLOMERULAR FILTRATION RATE >=60 max estimate CREATININE 1.1 BUN/CREATININE RATIO 10.9 L TOTAL PROTEIN 6.9 ALBUMIN 4.0 CALCIUM 8.7 BILIRUBIN TOTAL 0.8 SGOT/AST 166 D H SGPT/ALT 79 D H ALKALINE PHOSPHATASE 146 D H CBC W/AUTO DIFF (12/30/23 18:37) WHITE BLOOD CELL 11.1H H RED BLOOD CELL 3.97 L HEMOGLOBIN 12.8L L HEMATOCRIT 35.7L L MEAN CELL VOLUME 90 MEAN CELL HGB 32.2 MEAN CELL HGB CONCENTRATION 35.9 RED CELL DISTRIBUTION WIDTH 16.4 H PLATELET COUNT 238 MEAN PLATELET VOLUME 10.3 NEUTROPHIL % 83.4 H IMMATURE GRANULOCYTE % 1.0 LYMPHOCYTE % 5.9 L MONOCYTE % 9.5 EOSINOPHIL % 0.0 BASOPHIL % 0.2 NUCLEATED RBC % 0.0 NEUTROPHIL # 9.23 H IMMATURE GRANULOCYTE # 0.110 H LYMPHOCYTE # 0.65 L MONOCYTE # 1.05 H EOSINOPHIL # 0.00 BASOPHIL # 0.02 NUCLEATED RBC # 0.000 MAG (12/30/23 18:37) MAGNESIUM 1.8 TROP-I HIGH SEN (12/30/23 18:37) TROP-I HIGH SENSITIVITY 207 *H GLU BED (12/30/23 17:41) GLUBED 150 H LACTIC ACID (12/30/23 17:39) LACTIC ACID 2.5 H GLU BED (12/30/23 15:15) GLUBED 113 H Signed in PatientKeeper by Pete Vang MD on 12/31/23 at 15:20 at 1520 ATTENTION *EDITS and/or ADDENDA must be made in Patient Keeper for this note. * * Edits and ammendments created in [facility] are not visible * * in Patient Keeper or the legal medical record ([facility]). * [facility] #: [id number] END OF REPORT [facility] 2023-12-31 11:50:00 [facility] ([facility]) Med Order Sheet REPORT #: [id number] REPORT STATUS: Signed DATE: 12/31/23 TIME: 1150 PATIENT: KOTA MONTES UNIT #: [id number] ROOM #: [place] [address] BED: A : 61 AGE: 63 SEX: M ATTEND: Pete Vang MD ADM AUTHOR: Pete Vang MD ATTENTION *EDITS and/or ADDENDA must be made in Patient Keeper for this note. * * Edits and ammendments created in [employer] are not visible * * in Patient Keeper or the legal medical record ([facility]). * Discharge Medication Reconciliation DISCHARGE MEDICATION LIST Acetaminophen Tab (Tylenol Tab) Dose: 650MG PO Q4H PRN headache/pain scale 1-3 Albuterol/Ipratrop Neb Soln (Duoneb Neb Soln) Dose: 3ML NEB RTQ4H PRN wheezing / shortness of breath Amiodarone Tab (Cordarone Tab) Dose: 200MG PO Q12HR Amiodarone Drip (CordaroneDrip) 450MG/250ML D5W Dose: 450MG IV ASDIR Aspirin EC Tab (Ecotrin Tab) Dose: 81MG PO DAILY Atorvastatin Tab (Lipitor Tab) Dose: 40MG PO DAILY Azithromycin (Z-Priya) (Z-Priya) Dose: 500MG PO BEDTIME New: cefTRIAXone Inj (Rocephin Inj) Dose: 1 GM IV DAILY Clopidogrel Tab (Plavix Tab) Dose: 75MG PO DAILY Enoxaparin 40mg/0.4mL Inj (Lovenox 40mg/0.4mL Inj) Dose: 40MG SUBQ DAILY New: Furosemide Inj (Lasix Inj) Dose: 20MG IV Q8HR Ipratropium Neb Soln (Atrovent Neb Soln) Dose: 0.5MG NEB RTQ4H PRN bronchospasm Ipratropium Neb Soln (Atrovent Neb Soln) Dose: 0.5MG NEB RTQ6H WA LORazepam Tab (Ativan Tab) Dose: 1MG PO BID PRN anxiety Melatonin Tab (Melatonin Tab) Dose: 5MG PO BEDTIME New: methylPREDNISolone Inj (Solu-MEDROL Inj) Dose: 40MG IV DAILY Metoprolol Tartrate Tab (Lopressor Tab) Dose: 12.5MG PO Q12HR Midodrine Tab 5 mg(ProAmatine Tab 5mg) Dose: 5MG PO TID@0600,1200,1700 PRN sbp less than 90 OLANZapine Tab (ZyPREXA Tab) Dose: 5MG PO Q6H PRN agitation or anxiety Potassium Chlor Tab.ER (K Dur Tab) Dose: 20MEQ PO DAILY Promethazine Tab (Phenergan Tab) Dose: 12.5MG PO Q8H PRN nausea Propofol Drip (Diprivan Drip) Dose: 1000MG IV ASDIR Simethicone Chew Tab (Mylanta Gas Chew Tab) Dose: 80MG PO QID PRN gas STOPPED HOSPITAL MEDICATIONS Dc'd: Magnesium Sulfate 1Gm IVPB (Magnesium Sulfate 1Gm IVPB) 1GM 100 MLS/HR IV ASDIR PRN mg level 1.8-2Dc'd: Magnesium Sulfate 1Gm IVPB (Magnesium Sulfate 1Gm IVPB) 1GM 25 MLS/HR IV Q1H X 4 doses PRN mag level less than 1.5Dc'd: Magnesium Sulfate 1Gm IVPB (Magnesium Sulfate 1Gm IVPB) 1GM 50 MLS/HR IV Q1H X 2 doses PRN mag level 1.5-1.7Dc'd: Potassium Chloride 20mEq IVPB (KCL 20mEq IVPB) 20MEQ 50 MLS/HR IV ASDIR PRN electrolyte sliding scaleDc'd: Potassium Effervescent Tab (Effer-K Tab Effervescent) 20MEQ PO ASDIR PRN kcl level per admin criteriaDc'd: Sod Biphos/Potas Phos Packet (Neutra-Phos Packet) 1PKT PO ASDIR PRN phosphorus sliding scaleDc'd: Sodium Phosphate Inj (Sodium Phosphate Inj) 15MM IV ASDIR PRN phosphorus sliding scalein Sodium Chloride 0.9% (NS) 250ML (Total 255 ML) Dc'd: Sodium Phosphate Inj (Sodium Phosphate Inj) 20MM IV ASDIR PRN phosphorus sliding scalein Sodium Chloride 0.9% (NS) 250ML (Total 256.67 ML) Dc'd: Sodium Phosphate Inj (Sodium Phosphate Inj) 30MM IV ASDIR PRN phosphorus sliding scalein Sodium Chloride 0.9% (NS) 250ML (Total 260 ML) at 1150 ATTENTION *EDITS and/or ADDENDA must be made in Patient Keeper for this note. * * Edits and ammendments created in [facility] are not visible * * in Patient Keeper or the legal medical record (HPF). * RPT #: [id number] END OF REPORT [facility] 2023-12-31 11:35:00 [facility] ([facility]) Cardiology Progress Notes REPORT #: [id number] REPORT STATUS: Signed DATE: 12/31/23 TIME: 1135 PATIENT: KOTA MONTESO UNIT #: [id number] ROOM #: [id number] BED: A : 61 AGE: 63 SEX: M ATTEND: Pete Vang MD ADM AUTHOR: Mariam Charlton MD ATTENTION *EDITS and/or ADDENDA must be made in Patient Keeper for this note. * * Edits and ammendments created in [employer] are not visible * * in Patient Keeper or the legal medical record (HPF). * -- ASSESSMENT AND PLAN -- GENERAL ASSESSMENT: Problem List: Acute Hypoxic/Hypercapnic Respiratory Failure Hypertensive emergency Acute CHF Exacerbation Acute Flash Pulmonary Edema Hypotension Cardiogenic shock Lactic Acidosis Tachycardia HTN Hyponatremia Hyperglycemia Anxiety HLD CAD w/ PCI CABG x2 A/P: #Acute decompensated heart failure #Hypertensive emergency, resolved (on admission) #Cardiogenic shock, resolved - Etiology ischemic for HFrEF - etiology of exacerbation is eHTN - Volume overloaded on exam with edema and + JVD on presentation with flash pulmonary edema necessitating intubation - BNP elevated - EKG with Sinus tachycardia with prolong QTc as well as QRS widening (unchanged from previous) - TTE LVEF 25-30%, previously 30-35% (09/2023); severe global hypokinesis of the left ventricle. - LHC: s/p PCI 2005, 06/2022, 12/24/2022, 12/24/2022, 07/27/23 CABG x 2V 06/13/23) - diuresis went well, sent to [facility] 12/29 followed by further deterioration and AHRF, unclear why as patient was nearly euvolemic at that time - Telemetry shows PSVT, though it appears to be sinus tachycardia; monitor tele Plan: Acute managment: - IV Diuresis: lasix 20mg IV Q8H - strict I/Os - maintain negative fluid balance, goal negative 2 L/day - 2 gm Na diet, 1500 mL fluid restriction - daily weights - Monitor clinically as may require IABP/MCS if further deteriorates - AICD/ ASSOCIATE SOFTWARE ENGINEER necessary given no improvement in LVEF - EP, Chrystalam, consulted for above #Emergent HTN, resolved # Hypotension -blood pressure elevated (SBP>180s/DBP >120) -end organ injur: CHF -Cardiac enzymes: negative -CXR: pulmonary edema - Now hypotensive and on levophed gtt - Monitor clinically as may require IABP/MCS if further deteriorates #CAD - DAPT with ticagrelor - Unclear why changed to plavix - Statin -- SUBJECTIVE -- PATIENT NARRATIVE: Overnight events reviewed with nursing at bedside as well as staff Reintubated for AHRF Vitals, labs, diagnostic tests have been reviewed. Telemetry shows SR Adequate UOP -REVIEW OF SYSTEMS- COMMENT: intuabted/sedated -- OBJECTIVE -- VITALS (12/29 11:35 - 12/30 11:35): Temperature F: 98.3 (98.3 - 99.0) Temperature source: Oral Pulse Rate 96 (75 - 141) Respiratory rate: 16 (9 - 58) Blood pressure: 106/59 (88/51 - 193/112) Blood pressure source: Monitor I/Os (12/29 07:00 - 12/30 07:00): Net -400 Output 400 -EXAM- OTHER: GENERAL: No acute distress, non-toxic appearing. intubated sedated HEAD: Normal with no signs of head trauma or bruising EYES: Conjunctiva normal, no discharge. ENT: Hearing grossly intact, normal oropharynx. NECK: Supple, no tenderness, no lymphadenopathy, no masses. No flow murmurs/bruits in carotid territory. No appreciable JVD LUNGS: crackles at base HEART: Regular rate and rhythm. Normal S1 and S2, without murmurs, rub, or gallop. VASC: Peripheral pulses normal and equal in all extremities. Extremities are warm to touch and sensation is intact ABD: Bowel sounds normal, soft, nontender, no masses, no organomegaly. TTP : Normal. LYMPH: No lymphadenopathy noted. EXT: No joint swelling, no clubbing, no cyanosis. + edema SKIN: No rashes or lesions. bruising noted NEURO: Moving all extremities without focal deficits. -- DATA -- MEDICATIONS AZITHROMYCIN 500 MG PO BEDTIME MAGNESIUM 1 GM IV Q1H (PRN) methylPREDNISolone SOD SUCC 40 MG IV DAILY cefTRIAXone with/in WATER FOR INJECTION,STERILE 1000 MG IV BEDTIME IPRATROPIUM BROMIDE 0.5 MG NEB RTQ6H WA PROMETHAZINE HCL 12.5 MG PO Q8H PRN SODIUM PHOSPHATE with/in SODIUM CHLORIDE 0.9% 30 MM IV ASDIR (PRN) SIMETHICONE 80 MG PO QID PRN IPRATROPIUM BROMIDE 0.5 MG NEB RTQ4H PRN MAGNESIUM 1 GM IV Q1H (PRN) POTASSIUM BICARBONATE/CIT AC 20 MEQ PO ASDIR (PRN) propofoL 1000 MG IV ASDIR MIDODRINE HCL 5 MG PO TID@0600,1200,1700 (PRN) SODIUM PHOSPHATE with/in SODIUM CHLORIDE 0.9% 15 MM IV ASDIR (PRN) ACETAMINOPHEN 650 MG PO Q4H PRN ENOXAPARIN SODIUM 40 MG SUBQ DAILY MAGNESIUM 1 GM IV ASDIR (PRN) IPRATROPIUM/ALBUTEROL SULFATE 3 ML NEB RTQ4H PRN AMIODARONE HCL with/in DEXTROSE 5%-WATER 450 MG IV ASDIR POTASSIUM CHLORIDE 20 MEQ IV ASDIR (PRN) FUROSEMIDE 20 MG IV Q8HR POTASSIUM CHLORIDE 20 MEQ PO DAILY clopidogreL 75 MG PO DAILY SODIUM PHOSPHATE with/in SODIUM CHLORIDE 0.9% 20 MM IV ASDIR (PRN) AMIODARONE HCL 200 MG PO Q12HR ASPIRIN 81 MG PO DAILY ATORVASTATIN CALCIUM 40 MG PO DAILY METOPROLOL TARTRATE 12.5 MG PO Q12HR MELATONIN 5 MG PO BEDTIME OLANZapine 5 MG PO Q6H PRN SOD BIPHOS/POT PHOSPHATE 1 PKT PO ASDIR (PRN) LORazepam 1 MG PO BID PRN LABS K (12/31/23 07:12) POTASSIUM 3.6 D PHOS (12/31/23 05:10) PHOSPHOROUS 2.1 L BASIC METABOLIC PANEL (12/31/23 05:10) SODIUM 133L L POTASSIUM 5.9D H D H CHLORIDE 96L L CARBON DIOXIDE 32H H ANION GAP 10.9 GLUCOSE 95 BLOOD UREA NITROGEN 14 GLOMERULAR FILTRATION RATE >=60 max estimate CREATININE 1.2 BUN/CREATININE RATIO 11.7 L CALCIUM 8.3 L CBC W/AUTO DIFF (12/31/23 05:10) WHITE BLOOD CELL 8.0 RED BLOOD CELL 3.70 L HEMOGLOBIN 11.5L L HEMATOCRIT 34.7L L MEAN CELL VOLUME 94 D MEAN CELL HGB 31.1 MEAN CELL HGB CONCENTRATION 33.1 RED CELL DISTRIBUTION WIDTH 17.0 H PLATELET COUNT 205 MEAN PLATELET VOLUME 10.1 NEUTROPHIL % 75.4 IMMATURE GRANULOCYTE % 0.8 LYMPHOCYTE % 12.9 L MONOCYTE % 10.0 EOSINOPHIL % 0.5 BASOPHIL % 0.4 NUCLEATED RBC % 0.0 NEUTROPHIL # 6.02 IMMATURE GRANULOCYTE # 0.060 LYMPHOCYTE # 1.03 L MONOCYTE # 0.80 EOSINOPHIL # 0.04 BASOPHIL # 0.03 NUCLEATED RBC # 0.000 MAG (12/31/23 05:10) MAGNESIUM 1.7 TROP-I HIGH SEN (12/31/23 05:10) TROP-I HIGH SENSITIVITY 155 *H LACTIC ACID (12/31/23 05:10) LACTIC ACID 2.1 D-DIMER (12/31/23 05:10) D-DIMER 3335 H ARTERIAL BLOOD GAS (12/31/23 03:42) ARTERIAL BLOOD GAS PH 7.491 H ARTERIAL BLOOD GAS PCO2 37.6 ARTERIAL BLOOD GAS PO2 276.5 H BICARBONATE TOTAL HCO3 28.1 H BASE EXCESS 4.6 H ABG O2 SATURATION 99.8 H ABG TYPE Arterial ARTERIAL FIO2 100.0 PaO2/FiO2 276.50 ABG VENT MODE AC ABG TIDAL VOLUME 480 ABG PEEP 10.0 ALLENS TEST Yes TOTAL HGB 12.4 L OXYHEMOGLOBIN 99.2 H CARBOXYHEMOGLOBIN 0.3 METHEMOGLOBIN <0.8 TCO2 ARTERIAL 29.2 H TROP-I HIGH SEN (12/31/23 00:12) TROP-I HIGH SENSITIVITY 200 *H COMPREHENSIVE METABOLIC PANEL (12/30/23 18:37) SODIUM 133L L POTASSIUM 3.7 CHLORIDE 95L L CARBON DIOXIDE 29 ANION GAP 12.7 GLUCOSE 110H H BLOOD UREA NITROGEN 12 GLOMERULAR FILTRATION RATE >=60 max estimate CREATININE 1.1 BUN/CREATININE RATIO 10.9 L TOTAL PROTEIN 6.9 ALBUMIN 4.0 CALCIUM 8.7 BILIRUBIN TOTAL 0.8 SGOT/AST 166 D H SGPT/ALT 79 D H ALKALINE PHOSPHATASE 146 D H CBC W/AUTO DIFF (12/30/23 18:37) WHITE BLOOD CELL 11.1H H RED BLOOD CELL 3.97 L HEMOGLOBIN 12.8L L HEMATOCRIT 35.7L L MEAN CELL VOLUME 90 MEAN CELL HGB 32.2 MEAN CELL HGB CONCENTRATION 35.9 RED CELL DISTRIBUTION WIDTH 16.4 H PLATELET COUNT 238 MEAN PLATELET VOLUME 10.3 NEUTROPHIL % 83.4 H IMMATURE GRANULOCYTE % 1.0 LYMPHOCYTE % 5.9 L MONOCYTE % 9.5 EOSINOPHIL % 0.0 BASOPHIL % 0.2 NUCLEATED RBC % 0.0 NEUTROPHIL # 9.23 H IMMATURE GRANULOCYTE # 0.110 H LYMPHOCYTE # 0.65 L MONOCYTE # 1.05 H EOSINOPHIL # 0.00 BASOPHIL # 0.02 NUCLEATED RBC # 0.000 MAG (12/30/23 18:37) MAGNESIUM 1.8 TROP-I HIGH SEN (12/30/23 18:37) TROP-I HIGH SENSITIVITY 207 *H GLU BED (12/30/23 17:41) GLUBED 150 H LACTIC ACID (12/30/23 17:39) LACTIC ACID 2.5 H GLU BED (12/30/23 15:15) GLUBED 113 H Signed in PatientKeeper by Mariam Charlton MD on 12/31/23 at 11:42 at 1142 ATTENTION *EDITS and/or ADDENDA must be made in Patient Keeper for this note. * * Edits and ammendments created in [facility] are not visible * * in Patient Keeper or the legal medical record ([facility]). * RPT #: [id number] END OF REPORT [facility] 2023-12-31 11:07:00 [facility] ([facility]) Nephrology Progress Note REPORT #: [id number] REPORT STATUS: Signed DATE: 12/31/23 TIME: 110 PATIENT: KOTA MONTESJILLO UNIT #: [id number] ROOM #: [id number] BED: A : 61 AGE: 63 SEX: M ATTEND: Pete Vang MD ADM AUTHOR: Omar Coronado MD ATTENTION *EDITS and/or ADDENDA must be made in Patient Keeper for this note. * * Edits and ammendments created in [employer] are not visible * * in Patient Keeper or the legal medical record (HPF). * -- ASSESSMENT AND PLAN -- GENERAL ASSESSMENT: 1. SAMMIE likely related hemodynamic factors/ATN/ARTURO; ddx cardiroenal; Cr improved. 2. Volume status: euvolemic or close to dry weight 3. Acid-base: compensated metabolic acidosis 4. Electrolytes: hyponatremia, hyperkalemia from ? hemolysis 5. Hypotension on levophed 6. CAD sp cabg - SCr is stable bet 0.9-1.2 - Ok for transfer to [facility]. - On lasix IV - EF 30% _ Replete lytes prn - On Abx - Cont supportive care - Monitor renal parameters. D/W pt 's rn Will follow Thank you kindly for allowing me to participate in taking care of this patient. -- SUBJECTIVE -- PATIENT NARRATIVE: Events noted. no pressor. Reintubated yest with resp distress. -- OBJECTIVE -- VITALS (12/29 11:07 - 12/30 11:07): Temperature F: 98.9 (98.4 - 99.0) Temperature source: Axillary Pulse Rate 80 (75 - 141) Respiratory rate: 18 (9 - 58) Blood pressure: 97/55 (88/51 - 193/112) Blood pressure source: Monitor I/Os (12/29 07:00 - 12/30 07:00): Net -400 Output 400 -EXAM- OTHER: GeNeRAL: NaD ENt; No JVd, intubated luNgS: Coarse BS BL CV; Rrr WITHOUT RUB AbDOMEN: SOFT?NT/Nd WITH Nabs Ext: + EdEmA Le bILATERALLY -- DATA -- MEDICATIONS AZITHROMYCIN 500 MG PO BEDTIME MAGNESIUM 1 GM IV Q1H (PRN) methylPREDNISolone SOD SUCC 40 MG IV DAILY cefTRIAXone with/in WATER FOR INJECTION,STERILE 1000 MG IV BEDTIME IPRATROPIUM BROMIDE 0.5 MG NEB RTQ6H WA PROMETHAZINE HCL 12.5 MG PO Q8H PRN SODIUM PHOSPHATE with/in SODIUM CHLORIDE 0.9% 30 MM IV ASDIR (PRN) SIMETHICONE 80 MG PO QID PRN IPRATROPIUM BROMIDE 0.5 MG NEB RTQ4H PRN MAGNESIUM 1 GM IV Q1H (PRN) POTASSIUM BICARBONATE/CIT AC 20 MEQ PO ASDIR (PRN) propofoL 1000 MG IV ASDIR MIDODRINE HCL 5 MG PO TID@0600,1200,1700 (PRN) SODIUM PHOSPHATE with/in SODIUM CHLORIDE 0.9% 15 MM IV ASDIR (PRN) ACETAMINOPHEN 650 MG PO Q4H PRN ENOXAPARIN SODIUM 40 MG SUBQ DAILY MAGNESIUM 1 GM IV ASDIR (PRN) IPRATROPIUM/ALBUTEROL SULFATE 3 ML NEB RTQ4H PRN AMIODARONE HCL with/in DEXTROSE 5%-WATER 450 MG IV ASDIR POTASSIUM CHLORIDE 20 MEQ IV ASDIR (PRN) FUROSEMIDE 20 MG IV Q8HR POTASSIUM CHLORIDE 20 MEQ PO DAILY clopidogreL 75 MG PO DAILY SODIUM PHOSPHATE with/in SODIUM CHLORIDE 0.9% 20 MM IV ASDIR (PRN) AMIODARONE HCL 200 MG PO Q12HR ASPIRIN 81 MG PO DAILY ATORVASTATIN CALCIUM 40 MG PO DAILY METOPROLOL TARTRATE 12.5 MG PO Q12HR MELATONIN 5 MG PO BEDTIME OLANZapine 5 MG PO Q6H PRN SOD BIPHOS/POT PHOSPHATE 1 PKT PO ASDIR (PRN) LORazepam 1 MG PO BID PRN LABS K (12/31/23 07:12) POTASSIUM 3.6 D PHOS (12/31/23 05:10) PHOSPHOROUS 2.1 L BASIC METABOLIC PANEL (12/31/23 05:10) SODIUM 133L L POTASSIUM 5.9D H D H CHLORIDE 96L L CARBON DIOXIDE 32H H ANION GAP 10.9 GLUCOSE 95 BLOOD UREA NITROGEN 14 GLOMERULAR FILTRATION RATE >=60 max estimate CREATININE 1.2 BUN/CREATININE RATIO 11.7 L CALCIUM 8.3 L CBC W/AUTO DIFF (12/31/23 05:10) WHITE BLOOD CELL 8.0 RED BLOOD CELL 3.70 L HEMOGLOBIN 11.5L L HEMATOCRIT 34.7L L MEAN CELL VOLUME 94 D MEAN CELL HGB 31.1 MEAN CELL HGB CONCENTRATION 33.1 RED CELL DISTRIBUTION WIDTH 17.0 H PLATELET COUNT 205 MEAN PLATELET VOLUME 10.1 NEUTROPHIL % 75.4 IMMATURE GRANULOCYTE % 0.8 LYMPHOCYTE % 12.9 L MONOCYTE % 10.0 EOSINOPHIL % 0.5 BASOPHIL % 0.4 NUCLEATED RBC % 0.0 NEUTROPHIL # 6.02 IMMATURE GRANULOCYTE # 0.060 LYMPHOCYTE # 1.03 L MONOCYTE # 0.80 EOSINOPHIL # 0.04 BASOPHIL # 0.03 NUCLEATED RBC # 0.000 MAG (12/31/23 05:10) MAGNESIUM 1.7 TROP-I HIGH SEN (12/31/23 05:10) TROP-I HIGH SENSITIVITY 155 *H LACTIC ACID (12/31/23 05:10) LACTIC ACID 2.1 D-DIMER (12/31/23 05:10) D-DIMER 3335 H ARTERIAL BLOOD GAS (12/31/23 03:42) ARTERIAL BLOOD GAS PH 7.491 H ARTERIAL BLOOD GAS PCO2 37.6 ARTERIAL BLOOD GAS PO2 276.5 H BICARBONATE TOTAL HCO3 28.1 H BASE EXCESS 4.6 H ABG O2 SATURATION 99.8 H ABG TYPE Arterial ARTERIAL FIO2 100.0 PaO2/FiO2 276.50 ABG VENT MODE AC ABG TIDAL VOLUME 480 ABG PEEP 10.0 ALLENS TEST Yes TOTAL HGB 12.4 L OXYHEMOGLOBIN 99.2 H CARBOXYHEMOGLOBIN 0.3 METHEMOGLOBIN <0.8 TCO2 ARTERIAL 29.2 H TROP-I HIGH SEN (12/31/23 00:12) TROP-I HIGH SENSITIVITY 200 *H COMPREHENSIVE METABOLIC PANEL (12/30/23 18:37) SODIUM 133L L POTASSIUM 3.7 CHLORIDE 95L L CARBON DIOXIDE 29 ANION GAP 12.7 GLUCOSE 110H H BLOOD UREA NITROGEN 12 GLOMERULAR FILTRATION RATE >=60 max estimate CREATININE 1.1 BUN/CREATININE RATIO 10.9 L TOTAL PROTEIN 6.9 ALBUMIN 4.0 CALCIUM 8.7 BILIRUBIN TOTAL 0.8 SGOT/AST 166 D H SGPT/ALT 79 D H ALKALINE PHOSPHATASE 146 D H CBC W/AUTO DIFF (12/30/23 18:37) WHITE BLOOD CELL 11.1H H RED BLOOD CELL 3.97 L HEMOGLOBIN 12.8L L HEMATOCRIT 35.7L L MEAN CELL VOLUME 90 MEAN CELL HGB 32.2 MEAN CELL HGB CONCENTRATION 35.9 RED CELL DISTRIBUTION WIDTH 16.4 H PLATELET COUNT 238 MEAN PLATELET VOLUME 10.3 NEUTROPHIL % 83.4 H IMMATURE GRANULOCYTE % 1.0 LYMPHOCYTE % 5.9 L MONOCYTE % 9.5 EOSINOPHIL % 0.0 BASOPHIL % 0.2 NUCLEATED RBC % 0.0 NEUTROPHIL # 9.23 H IMMATURE GRANULOCYTE # 0.110 H LYMPHOCYTE # 0.65 L MONOCYTE # 1.05 H EOSINOPHIL # 0.00 BASOPHIL # 0.02 NUCLEATED RBC # 0.000 MAG (12/30/23 18:37) MAGNESIUM 1.8 TROP-I HIGH SEN (12/30/23 18:37) TROP-I HIGH SENSITIVITY 207 *H GLU BED (12/30/23 17:41) GLUBED 150 H LACTIC ACID (12/30/23 17:39) LACTIC ACID 2.5 H GLU BED (12/30/23 15:15) GLUBED 113 H Signed in PatientKeeper by OMAR CORONADO MD on 12/31/23 at 11:10 at 1110 ATTENTION *EDITS and/or ADDENDA must be made in Patient Keeper for this note. * * Edits and ammendments created in [facility] are not visible * * in Patient Keeper or the legal medical record (HPF). * [facility] #: [id number] END OF REPORT [facility] 2023-12-30 16:28:00 [facility] ([facility]) Non-Operative Procedure Note REPORT #: [id number] REPORT STATUS: Signed DATE: 12/30/23 TIME: 1628 PATIENT: KOTA MONTES UNIT #: [id number] ROOM #: [facility] BED: 1 : 61 AGE: 63 SEX: M ATTEND: Pete Vang MD ADM AUTHOR: Joey Daily MD ATTENTION *EDITS and/or ADDENDA must be made in Patient Keeper for this note. * * Edits and ammendments created in [employer] are not visible * * in Patient Keeper or the legal medical record (HPF). * -- PROCEDURE -- PRE-PROCEDURE DIAGNOSIS: Acute hypoxic Respiratory Failure Acute Pulmonary edema Right lower lobe pneumonia POST-PROCEDURE DIAGNOSIS: Acute hypoxic Respiratory Failure Acute Pulmonary edema Right lower lobe pneumonia NAME OF PROCEDURE: Bronchoscopy with BAL PERFORMED BY: JOEY DAILY MD RISKS/BENEFITS AND CONSENT: yes, to who gave verbal consent -- DESCRIPTION -- DESCRIPTION OF TECHNIQUE/PROCEDURE: Bronchoscopy Timeout was performed prior to beginning the procedure. Patient's name date of was confirmed by me. bronchoscope was inserted via the endotracheal tube and into the tracheobronchial tree. Lobes were evaluated up to the subsegmental segment bilaterally. Findings Using the bronchoscope into the trachea was which had slight secretions that appeared frothy around the tracheal rings. I then proceeded to evaluate the left mainstem and in the left upper and lower lobe. Once again frothy secretions were seen. Bronchial rubin were mildly erythematous. No purulent secretions were seen, no endobronchial lesion was noted. I then evaluated the right bronchus intermedius. Frothy secretions were once again seen. Slight erythematous airways were noted that appeared boggy. The right upper, middle and lower lobe were grossly unremarkable. No endobronchial lesion was seen. Bronchoalveolar lavage was done in the right lower lobe. A total of 60 cc was used with return of 20 cc. Secretions appeared pink and frothy. Bronchial lavage was sent to the lab for further analysis Plan Follow-up for bronchial cultures Continue with aggressive diuresis Signed in PatientKeeper by JOEY DAILY MD on 12/30/23 at 16:46 at 1646 ATTENTION *EDITS and/or ADDENDA must be made in Patient Keeper for this note. * * Edits and ammendments created in [employer] are not visible * * in Patient Keeper or the legal medical record (HPF). * RPT #: [id number] END OF REPORT [facility] 2023-12-30 16:27:00 [facility] ([facility]) Post Intubation Procedure Note REPORT #: [id number] REPORT STATUS: Signed DATE: 12/30/23 TIME: 1626 PATIENT: KOTA MONTES UNIT #: [id number] ROOM #: [id number] BED: 1 : 61 AGE: 63 SEX: M ATTEND: Pete Vang MD ADM AUTHOR: Joey Daily MD ATTENTION *EDITS and/or ADDENDA must be made in Patient Keeper for this note. * * Edits and ammendments created in [employer] are not visible * * in Patient Keeper or the legal medical record ([facility]). * -- POST INTUBATION -- LOCATION: IMU INDICATIONS: Respiratory failure CORMACK-LEHANE CLASS: - Grade 1: full view of glottis PRE-OXYGENATION: Yes RAPID SEQUENCE INDUCTION (RSI): Yes MEDS GIVEN: etimodate + rocuronium LARYNGOSCOPE BLADE: glide scope mac NUMBER OF ATTEMPTS: 1 BILATERAL BREATH SOUNDS: Yes ETC02 DETECTOR COLOR CHANGE: Yes ET TUBE SIZE: 8 ET TUBE TAPED AT THE LIP AT: 27 cm MECHANICAL VENTILATION INITIATED: Yes Signed in PatientKeeper by JOEY DAILY MD on 12/30/23 at 16:28 at 1628 ATTENTION *EDITS and/or ADDENDA must be made in Patient Keeper for this note. * * Edits and ammendments created in [employer] are not visible * * in Patient Keeper or the legal medical record ([facility]). * RPT #: [id number] END OF REPORT [facility] 2023-12-30 16:24:00 [facility] ([facility]) Hospitalist Progress Note REPORT #: [id number] REPORT STATUS: Signed DATE: 12/30/23 TIME: 162 PATIENT: KOTA MONTES UNIT #: [id number] ROOM #: [facility] BED: 1 : 61 AGE: 63 SEX: M ATTEND: Pete Vang MD ADM AUTHOR: Pete Vang MD ATTENTION *EDITS and/or ADDENDA must be made in Patient Keeper for this note. * * Edits and ammendments created in [employer] are not visible * * in Patient Keeper or the legal medical record ([facility]PF). * -- ASSESSMENT AND PLAN -- PROBLEMS: 1: Acute respiratory failure with hypoxia and hypercapnia A/P: Secondary to CHF exacerbation and pneumonia Patient was intubated 12/25 and successfully extubated 12/28 Continue supplemental oxygen and wean as tolerated Appears to be more hypoxic currently CTA chest (-) for PE 12/25 2: Acute on chronic systolic (congestive) heart failure A/P: Continue IV Lasix Fluid restriction Low Na diet LVEF = 25-30% EP consulted for AICD placement due to severe cardiomyopathy 3: Atrial fibrillation with RVR A/P: Amiodarone IV changed to PO per business department chair Low dose BB started 4: Pneumonia, unspecified organism A/P: Bilateral lower lobe pneumonia Cont antibiotics, Atrovent, and steroids 5: Cardiogenic shock A/P: resolved cont midodrine 6: Nausea A/P: antiemetics as needed 7: Coronary artery disease A/P: continue aspirin, Plavix, beta-miguelangel, and statin 8: Acute kidney injury A/P: resolved 9: Alcohol abuse A/P: continue to monitor for signs of withdrawal 10: Anxiety disorder, unspecified A/P: cont ativan 11: Full code status A/P: continue aggressive treatment plan Patient's serves as surrogate decision maker -- SUBJECTIVE -- CHIEF COMPLAINT: shortness of breath PATIENT NARRATIVE: patient appears anxious and short of breath saturating in 80s and HR in 130s rapid response -- OBJECTIVE -- VITALS (12/28 16:24 - 12/29 16:24): Temperature F: 98.6 (98.6 - 98.9) Temperature source: Oral Pulse Rate 114 (72 - 133) Respiratory rate: 19 (11 - 28) Blood pressure: 154/97 (93/56 - 154/97) Blood pressure source: Monitor I/Os (12/28 07:00 - 12/29 07:00): Net -2,700 Intake 400 Output 3,100 -EXAM- GENERAL: Well developed, well nourished. Sitting up and appears anxious HEAD: Normocephalic, atraumatic. EYES: conjunctiva and sclera clear, without nystagmus, lids normal EARS: Normal external ear canals and grossly normal hearing. NOSE: No deformity. MOUTH: Oropharynx without deformities or lesions, normal mucosa. NECK: Supple CHEST: Grossly normal appearance. LUNGS: Clear bilaterally with normal respiratory effort. HEART: Irregularly irregular rhythm and rate, no murmurs ABDOMEN: Soft, non-tender. MUSCULOSKELETAL: No deformity. EXTREMITIES: No edema. NEUROLOGICAL: No focal deficits, cranial nerves II-XII grossly intact, normal coordination, normal muscle tone. PULSES: Pulses normal in all extremities. SKIN: Intact without significant lesions, or rashes. LYMPH NODES: No significant cervical node adenopathy. PSYCHIATRIC: Alert and oriented to time, person, place. Appears anxious. Intact judgment and insight. -- DATA -- MEDICATIONS AZITHROMYCIN 500 MG PO BEDTIME MAGNESIUM 1 GM IV Q1H (PRN) MUPIROCIN 1 APPLIC NASAL BID methylPREDNISolone SOD SUCC 40 MG IV DAILY cefTRIAXone with/in WATER FOR INJECTION,STERILE 1000 MG IV BEDTIME IPRATROPIUM BROMIDE 0.5 MG NEB RTQ6H WA PROMETHAZINE HCL 12.5 MG PO Q8H PRN SODIUM PHOSPHATE with/in SODIUM CHLORIDE 0.9% 30 MM IV ASDIR (PRN) SIMETHICONE 80 MG PO QID PRN IPRATROPIUM BROMIDE 0.5 MG NEB RTQ4H PRN MAGNESIUM 1 GM IV Q1H (PRN) POTASSIUM BICARBONATE/CIT AC 20 MEQ PO ASDIR (PRN) propofoL 1000 MG IV ASDIR SODIUM PHOSPHATE with/in SODIUM CHLORIDE 0.9% 15 MM IV ASDIR (PRN) MIDODRINE HCL 5 MG PO TID@0600,1200,1700 (PRN) ACETAMINOPHEN 650 MG PO Q4H PRN ENOXAPARIN SODIUM 40 MG SUBQ DAILY MAGNESIUM 1 GM IV ASDIR (PRN) IPRATROPIUM/ALBUTEROL SULFATE 3 ML NEB RTQ4H PRN AMIODARONE HCL with/in DEXTROSE 5%-WATER 450 MG IV ASDIR POTASSIUM CHLORIDE 20 MEQ IV ASDIR (PRN) FUROSEMIDE 20 MG IV Q8HR POTASSIUM CHLORIDE 20 MEQ PO DAILY clopidogreL 75 MG PO DAILY SODIUM PHOSPHATE with/in SODIUM CHLORIDE 0.9% 20 MM IV ASDIR (PRN) AMIODARONE HCL 200 MG PO Q12HR ASPIRIN 81 MG PO DAILY ATORVASTATIN CALCIUM 40 MG PO DAILY LORazepam 2 MG PO ONCE (PRN) OLANZapine 5 MG PO Q6H PRN METOPROLOL TARTRATE 12.5 MG PO Q12HR MELATONIN 5 MG PO BEDTIME SOD BIPHOS/POT PHOSPHATE 1 PKT PO ASDIR (PRN) LORazepam 1 MG PO BID PRN LABS GLU BED (12/30/23 15:15) GLUBED 113 H CBC W/AUTO DIFF (12/30/23 03:37) WHITE BLOOD CELL 9.2 RED BLOOD CELL 3.71 L HEMOGLOBIN 11.7L L HEMATOCRIT 33.4L L MEAN CELL VOLUME 90 MEAN CELL HGB 31.5 MEAN CELL HGB CONCENTRATION 35.0 RED CELL DISTRIBUTION WIDTH 16.4 H PLATELET COUNT 182 MEAN PLATELET VOLUME 9.5 NEUTROPHIL % 79.2 H IMMATURE GRANULOCYTE % 0.5 LYMPHOCYTE % 12.8 L MONOCYTE % 6.4 EOSINOPHIL % 0.8 BASOPHIL % 0.3 NUCLEATED RBC % 0.0 NEUTROPHIL # 7.24 H IMMATURE GRANULOCYTE # 0.050 LYMPHOCYTE # 1.17 L MONOCYTE # 0.59 EOSINOPHIL # 0.07 BASOPHIL # 0.03 NUCLEATED RBC # 0.000 COMPREHENSIVE METABOLIC PANEL (12/30/23 03:37) SODIUM 133L L POTASSIUM 3.4L L CHLORIDE 96L L CARBON DIOXIDE 30 ANION GAP 10.4 GLUCOSE 100 BLOOD UREA NITROGEN 10 GLOMERULAR FILTRATION RATE >=60 max estimate CREATININE 0.9 BUN/CREATININE RATIO 11.1 L TOTAL PROTEIN 6.6 ALBUMIN 4.0 CALCIUM 9.0 BILIRUBIN TOTAL 0.9 SGOT/AST 24 SGPT/ALT 15 ALKALINE PHOSPHATASE 86 MAG (12/30/23 03:37) MAGNESIUM 1.8 Signed in PatientKeeper by Pete Vang MD on 12/30/23 at 16:41 at 1641 ATTENTION *EDITS and/or ADDENDA must be made in Patient Keeper for this note. * * Edits and ammendments created in [facility] are not visible * * in Patient Keeper or the legal medical record (HPF). * RPT #: [id number] END OF REPORT [facility] 2023-12-30 11:11:00 [facility] ([facility]) Cardiology Progress Notes REPORT #: [id number] REPORT STATUS: Signed DATE: 12/30/23 TIME: 1111 PATIENT: KOTA MONTES UNIT #: [id number] ROOM #: [id number] BED: A : 61 AGE: 63 SEX: M ATTEND: Pete Vang MD ADM AUTHOR: Mariam Charlton MD ATTENTION *EDITS and/or ADDENDA must be made in Patient Keeper for this note. * * Edits and ammendments created in [employer] are not visible * * in Patient Keeper or the legal medical record (HPF). * -- ASSESSMENT AND PLAN -- GENERAL ASSESSMENT: Problem List: Acute Hypoxic/Hypercapnic Respiratory Failure Hypertensive emergency Acute CHF Exacerbation Acute Flash Pulmonary Edema Hypotension Cardiogenic shock Lactic Acidosis Tachycardia HTN Hyponatremia Hyperglycemia Anxiety HLD CAD w/ PCI CABG x2 A/P: #Acute decompensated heart failure #Hypertensive emergency #Cardiogenic shock, resolved - Etiology ischemic for HFrEF - etiology of exacerbation is eHTN - Volume overloaded on exam with edema and + JVD on presentation with flash pulmonary edema necessitating intubation - BNP elevated - EKG with Sinus tachycardia with prolong QTc as well as QRS widening (unchanged from previous) - TTE LVEF 25-30%, previously 30-35% (09/2023); severe global hypokinesis of the left ventricle. 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 No new cardiac complaints of note Still fatigued Telemetry shows SR Testing during patient stay has been discussed with the patient as well as their implications Questions comments and concerns regarding patient's treatment to date have been addressed and answered to the patient's satisfaction -REVIEW OF SYSTEMS- COMMENT: 14 point ROS reviewed, negative unless stated in HPI -- OBJECTIVE -- VITALS (12/28 11:11 - 12/29 11:11): Temperature F: 98.6 (98.6 - 98.9) Temperature C: 37.5 (37.4 - 37.5) Temperature source: Oral Pulse Rate 85 (72 - 235) Respiratory rate: 18 (9 - 36) Blood pressure: 114/66 (93/56 - 152/89) Blood pressure source: Monitor I/Os (12/28 07:00 - 12/29 07:00): Net -2,700 Intake 400 Output 3,100 -EXAM- OTHER: GENERAL: No acute distress, non-toxic appearing. HEAD: Normal with no signs of head trauma or bruising EYES: Conjunctiva normal, no discharge. ENT: Hearing grossly intact, normal oropharynx. NECK: Supple, no tenderness, no lymphadenopathy, no masses. No flow murmurs/bruits in carotid territory. No appreciable JVD LUNGS: crackles at base HEART: Regular rate and rhythm. Normal S1 and S2, without murmurs, rub, or gallop. VASC: Peripheral pulses normal and equal in all extremities. Extremities are warm to touch and sensation is intact ABD: Bowel sounds normal, soft, nontender, no masses, no organomegaly. TTP : Normal. LYMPH: No lymphadenopathy noted. EXT: No joint swelling, no clubbing, no cyanosis. + edema SKIN: No rashes or lesions. bruising noted NEURO: Moving all extremities without focal deficits. -- DATA -- MEDICATIONS AZITHROMYCIN 500 MG PO BEDTIME MAGNESIUM 1 GM IV Q1H (PRN) MUPIROCIN 1 APPLIC NASAL BID cefTRIAXone with/in WATER FOR INJECTION,STERILE 1000 MG IV BEDTIME PROMETHAZINE HCL 12.5 MG PO Q8H PRN SODIUM PHOSPHATE with/in SODIUM CHLORIDE 0.9% 30 MM IV ASDIR (PRN) SIMETHICONE 80 MG PO QID PRN MAGNESIUM 1 GM IV Q1H (PRN) POTASSIUM BICARBONATE/CIT AC 20 MEQ PO ASDIR (PRN) SODIUM PHOSPHATE with/in SODIUM CHLORIDE 0.9% 15 MM IV ASDIR (PRN) MIDODRINE HCL 5 MG PO TID@0600,1200,1700 (PRN) ACETAMINOPHEN 650 MG PO Q4H PRN ENOXAPARIN SODIUM 40 MG SUBQ DAILY MAGNESIUM 1 GM IV ASDIR (PRN) IPRATROPIUM/ALBUTEROL SULFATE 3 ML NEB RTQ4H PRN AMIODARONE HCL with/in DEXTROSE 5%-WATER 450 MG IV ASDIR POTASSIUM CHLORIDE 20 MEQ IV ASDIR (PRN) FUROSEMIDE 20 MG IV Q8HR POTASSIUM CHLORIDE 20 MEQ PO DAILY clopidogreL 75 MG PO DAILY SODIUM PHOSPHATE with/in SODIUM CHLORIDE 0.9% 20 MM IV ASDIR (PRN) AMIODARONE HCL 200 MG PO Q12HR ASPIRIN 81 MG PO DAILY ATORVASTATIN CALCIUM 40 MG PO DAILY METOPROLOL TARTRATE 12.5 MG PO Q12HR MELATONIN 5 MG PO BEDTIME SOD BIPHOS/POT PHOSPHATE 1 PKT PO ASDIR (PRN) LORazepam 1 MG PO BID PRN Signed in PatientKeeper by Mariam Charlton MD on 12/30/23 at 11:13 at 1113 ATTENTION *EDITS and/or ADDENDA must be made in Patient Keeper for this note. * * Edits and ammendments created in [facility] are not visible * * in Patient Keeper or the legal medical record (HPF). * [facility] #: [id number] END OF REPORT [facility] 2023-12-30 10:42:00 [id number] [facility] [id number] [place] [id number] PATIENT NAME: KOTA MONTES ADMIT DATE: 12/26/23 ACCOUNT NO: [id number] ROOM NO: [id number] AGE: 63 REPORT TYPE: eELECTROCARDIOGRAM SEX: M ADMITTING PHYSICIAN:Pete Vang MD ATTENDING PHYSICIAN:Pete Vang MD Order: [id number] Test Reason : Prior to Haldol Test Date/Time Stamp: SatDec 30 2023 10:42:03 Blood Pressure : / mmHG Vent. Rate : 092 BPM Atrial Rate : 092 BPM P-R Int : 156 ms QRS Dur : 162 ms QT Int : 408 ms P-R-T Axes : 055 106 -29 degrees QTc Int : 504 ms Normal sinus rhythm Rightward axis Nonspecific intraventricular block Abnormal ECG When compared with ECG of 29-DEC-2023 09:46, (Unconfirmed) Sinus rhythm has replaced Atrial fibrillation Vent. rate has decreased BY 118 BPM Nonspecific T wave abnormality no longer evident in Anterolateral leads Confirmed by MARIAM CHARLTON ([id number]) on 01/01/2024 2:41:49 PM Referred By: Jong Pollack Confirmed by:MARIAM CHARLTON at [address] [facility] [id number] [place] [id number] PATIENT NAME: KOTA MONTES [facility] 2023-12-30 08:32:00 THIS REPORT HAS BEEN APPENDED [facility] ([facility]) Intensive Care Progress Note REPORT #: [id number] REPORT STATUS: Signed DATE: 12/30/23 TIME: 0832 PATIENT: KOTA MONTES UNIT #: [id number] ROOM #: [facility]05 BED: A : 61 AGE: 63 SEX: M ATTEND: Pete Vang MD ADM AUTHOR: Joey Daily MD ATTENTION *EDITS and/or ADDENDA must be made in Patient Keeper for this note. * * Edits and ammendments created in [employer] are not visible * * in Patient Keeper or the legal medical record (HPF). * -- ASSESSMENT AND PLAN -- GENERAL ASSESSMENT: [facility] Critical Care Note Assessment Acute Hypoxic/Hypercapnic Respiratory Failure Acute on chronic HFrEF Exacerbation Acute Flash Pulmonary Edema Hypertensive emergency A-fib with RVR Cardiogenic shock Bilateral lower lobe pneumonia HTN Hyponatremia SAMMIE Hyperglycemia Anxiety HLD CAD w/ PCI stent x1 CABG x2 Tobacco use Plan: Extubated yesterday, remains on high flow. Patient said he has a significant 30 pack smoking history. Wheezing today. Chest x-ray from yesterday showed mild vascular congestion. On Lasix 40 3 times daily. Will start Atrovent and steroids. Cardiology plans to switch IV amiodarone to p.o. amiodarone. Neuro- Anxiolytics as needed CV- Hemodynamics reviewed, acceptable currently TTE with EF 25-30% and severe global hypokinesis Pressors weaned off, cardiology following Diuretics, beta-miguelangel, DAPT EP eval pending for AICD A-fib-IV Amio, monitor for improvement Pulm- Monitor pulse oximetry Goal SPO2 greater than 90% CXR: Diffuse bilateral airspace opacifications with mid to lower and right lung predominance. Small bilateral pleural effusions CTA : 12/25 No PE detected. Bilateral consolidations. Interval worsening since 08/22/2023. Intubated in ED 12/25 for respiratory Failure Extubated 12/27 Had worsening hypoxia briefly, now down to 5 L nasal cannula O2, wean for sats more than 92%, Not on home oxygen Empiric antibiotics for CAP coverage Steroids and bronchodilators started on 12/29 GI- ADAT Renal- BMP reviewed Replace electrolytes as indicated Monitor UOP Avoid nephrotoxins; Renal function improving IV Lasix, nephrology following ID- Trend WBC, fever curve Empiric Abx; Ceftriaxone and azithromycin Urine strep/Legionella antigen negative Cultures negative to date Heme- CBC reviewed No overt bleeding Trend Hgb, platelets Endo- Accuchecks Monitor for hypoglycemia Code: FULL DVT ppx: SCDs/Lovenox PPI ppx : Protonix Plan of care discussed with patient. Discussed with RN, RT and in multidisciplinary rounds Critically ill, continue with close monitoring in ICU --------- Subjective: Events noted Discussed on multidisciplinary rounds Remains on high flow nasal cannula Remains on IV amiodarone, converted to normal sinus rhythm Wheezing this morning HPI: Mr. Montes is a 63 yo male with pmx of HTN, HLD, CAD, CHF, CABG 06/25 who presented to ED with generalized malaise. He told his that he was not feeling well and drove himself to the hospital. Patient was in respiratory distress , refractory to Bipap and was subsequently intubated in ED. Flash pulmonary edema post intubation noted, and 80 mg IV Lasix was administered. Patient is being accepted to ICU for HLOC and continued monitoring. Past medical history: HTN, HLD, CAD, CHF PSurgHx: CABG in June 2023, PCI with stent , Multiple intubations FamHx: nc SocHx: ETOH quit June 2023, Ex smoker 2pk/40 yrs, Currently vapes Review of systems: Limited, as per HPI Physical Exam General: NAD Eyes: Anicteric sclerae. Mouth: MMM Neck: Supple. CV: Irregular rate and rhythm. Normal S1 and S2. Pulm: Good effort, no wheezing or Rales appreciated. Abdomen: Soft, nontender.BS+ Extremities: Trace lower extremity edema. Skin: Warm, dry. Neuro: Awake, no gross deficits Psych: Restless, anxious I have personally provided 32 minutes of critical care time. Time includes review of laboratory data, radiology results, discussion with consultants, family and staff and monitoring for potential decompensation. Interventions were performed as documented above. This is exclusive of time spent on separately billable procedures. -- OBJECTIVE -- VITALS (12/28 08:32 - 12/29 08:32): Temperature F: 98.6 (98.6 - 98.9) Temperature C: 37.5 (37.0 - 37.5) Temperature source: Oral Pulse Rate 85 (72 - 235) Respiratory rate: 18 (8 - 36) Blood pressure: 114/66 (93/56 - 160/100) Blood pressure source: Monitor I/Os (12/28 07:00 - 12/29 07:00): Net -2,700 Intake 400 Output 3,100 -- DATA -- MEDICATIONS AZITHROMYCIN 500 MG PO BEDTIME MAGNESIUM 1 GM IV Q1H (PRN) MUPIROCIN 1 APPLIC NASAL BID cefTRIAXone with/in WATER FOR INJECTION,STERILE 1000 MG IV BEDTIME PROMETHAZINE HCL 12.5 MG PO Q8H PRN SODIUM PHOSPHATE with/in SODIUM CHLORIDE 0.9% 30 MM IV ASDIR (PRN) SIMETHICONE 80 MG PO QID PRN MAGNESIUM 1 GM IV Q1H (PRN) POTASSIUM BICARBONATE/CIT AC 20 MEQ PO ASDIR (PRN) SODIUM PHOSPHATE with/in SODIUM CHLORIDE 0.9% 15 MM IV ASDIR (PRN) MIDODRINE HCL 5 MG PO TID@0600,1200,1700 (PRN) ACETAMINOPHEN 650 MG PO Q4H PRN ENOXAPARIN SODIUM 40 MG SUBQ DAILY MAGNESIUM 1 GM IV ASDIR (PRN) IPRATROPIUM/ALBUTEROL SULFATE 3 ML NEB RTQ4H PRN AMIODARONE HCL with/in DEXTROSE 5%-WATER 450 MG IV ASDIR POTASSIUM CHLORIDE 20 MEQ IV ASDIR (PRN) FUROSEMIDE 20 MG IV Q8HR POTASSIUM CHLORIDE 20 MEQ PO DAILY PANTOPRAZOLE 40 MG PO BEDTIME NOREPINEPHRINE BIT/0.9 % NACL 8 MG IV ASDIR clopidogreL 75 MG PO DAILY SODIUM PHOSPHATE with/in SODIUM CHLORIDE 0.9% 20 MM IV ASDIR (PRN) ASPIRIN 81 MG PO DAILY ATORVASTATIN CALCIUM 40 MG PO DAILY METOPROLOL TARTRATE 12.5 MG PO Q12HR MELATONIN 5 MG PO BEDTIME SOD BIPHOS/POT PHOSPHATE 1 PKT PO ASDIR (PRN) LORazepam 1 MG PO BID PRN dexmedeTOMIDine in 0.9 % NaCL 400 MCG IV TITRATE LABS CBC W/AUTO DIFF (12/30/23 03:37) WHITE BLOOD CELL 9.2 RED BLOOD CELL 3.71 L HEMOGLOBIN 11.7L L HEMATOCRIT 33.4L L MEAN CELL VOLUME 90 MEAN CELL HGB 31.5 MEAN CELL HGB CONCENTRATION 35.0 RED CELL DISTRIBUTION WIDTH 16.4 H PLATELET COUNT 182 MEAN PLATELET VOLUME 9.5 NEUTROPHIL % 79.2 H IMMATURE GRANULOCYTE % 0.5 LYMPHOCYTE % 12.8 L MONOCYTE % 6.4 EOSINOPHIL % 0.8 BASOPHIL % 0.3 NUCLEATED RBC % 0.0 NEUTROPHIL # 7.24 H IMMATURE GRANULOCYTE # 0.050 LYMPHOCYTE # 1.17 L MONOCYTE # 0.59 EOSINOPHIL # 0.07 BASOPHIL # 0.03 NUCLEATED RBC # 0.000 COMPREHENSIVE METABOLIC PANEL (12/30/23 03:37) SODIUM 133L L POTASSIUM 3.4L L CHLORIDE 96L L CARBON DIOXIDE 30 ANION GAP 10.4 GLUCOSE 100 BLOOD UREA NITROGEN 10 GLOMERULAR FILTRATION RATE >=60 max estimate CREATININE 0.9 BUN/CREATININE RATIO 11.1 L TOTAL PROTEIN 6.6 ALBUMIN 4.0 CALCIUM 9.0 BILIRUBIN TOTAL 0.9 SGOT/AST 24 SGPT/ALT 15 ALKALINE PHOSPHATASE 86 MAG (12/30/23 03:37) MAGNESIUM 1.8 Signed in PatientKeeper by JOEY DAILY MD on 12/30/23 at 12:39 at 1239 SECTION 2 ADDENDUM 1: 10/28/24 1822 PTKEEPER Patient was downgraded to the general floors. Upon arrival to the general floor she was initially stable with a with respiratory distress. Patient was already given his Lasix and had good urinary output over 2 L but remained in distress. Initially we tried to place patient on BiPAP but he could not tolerate the mask or the pressures. We gave the patient a total of 4 mg of Ativan and retried the BiPAP. Still could not tolerate the bipap. Remained in severe respiratory distress. We then attempted heated high flow Vapotherm at 100% FiO2 with a flow of 40 L. Will put that in addition to the nonrebreather and patient still remained in distress. Had audible wheezing so gave patient Atrovent. Repeat chest x-ray was ordered which showed worsening right lower lobe infiltrate concerning for flash pulmonary edema or worsening pneumonia. Discussed the recent results with patient's and patient and agree to elective intubation for respiratory failure. I also called cardiology to update them on patient's clinical situation. Acute hypotension 70 minutes excluding any ICU procedures at 1822 ATTENTION *EDITS and/or ADDENDA must be made in Patient Keeper for this note. * * Edits and ammendments created in [facility] are not visible * * in Patient Keeper or the legal medical record ([facility]). * RPT #: [id number] END OF REPORT [facility] 2023-12-30 07:56:00 [facility] ([facility]) Nephrology Progress Note REPORT #: [id number] REPORT STATUS: Signed DATE: 12/30/23 TIME: 755 PATIENT: KOTA MONTES UNIT #: [id number] ROOM #: [place] [address] BED: A : 61 AGE: 63 SEX: M ATTEND: Pete Vang MD ADM AUTHOR: Omar Coronado MD ATTENTION *EDITS and/or ADDENDA must be made in Patient Keeper for this note. * * Edits and ammendments created in [employer] are not visible * * in Patient Keeper or the legal medical record (HPF). * -- ASSESSMENT AND PLAN -- GENERAL ASSESSMENT: 1. SAMMIE likely related hemodynamic factors/ATN/ARTURO; ddx cardiroenal; Cr improved. 2. Volume status: euvolemic or close to dry weight 3. Acid-base: compensated metabolic acidosis 4. Electrolytes: hyponatremia, hypok and hypomg 5. Hypotension on levophed 6. CAD sp cabg - SCr is improved and at 0.9 today. Monitor renal function with diuresis and hemodynamic changes with A-fib - On lasix IV - EF 30% _ Replete lytes prn - On Abx - Cont supportive care - Monitor renal parameters. 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 -- SUBJECTIVE -- PATIENT NARRATIVE: Evnets noted. good uop with urinal; no pressor. on amiodarone. -- OBJECTIVE -- VITALS (12/28 07:57 - 12/29 07:57): Temperature F: 98.6 (98.3 - 98.9) Temperature C: 37.5 (37.0 - 37.5) Temperature source: Oral Pulse Rate 85 (72 - 235) Respiratory rate: 18 (8 - 36) Blood pressure: 114/66 (93/56 - 160/100) Blood pressure source: Monitor I/Os (12/28 07:00 - 12/29 07:00): Net -2,700 Intake 400 Output 3,100 -EXAM- OTHER: GeNeRAL: NaD ENt; No JVd luNgS: Coarse BS BL CV; Rrr WITHOUT RUB AbDOMEN: SOFT?NT/Nd WITH Nabs Ext: + EdEmA Le bILATERALLY Skin: no rash -- DATA -- MEDICATIONS AZITHROMYCIN 500 MG PO BEDTIME MAGNESIUM 1 GM IV Q1H (PRN) MUPIROCIN 1 APPLIC NASAL BID cefTRIAXone with/in WATER FOR INJECTION,STERILE 1000 MG IV BEDTIME PROMETHAZINE HCL 12.5 MG PO Q8H PRN SODIUM PHOSPHATE with/in SODIUM CHLORIDE 0.9% 30 MM IV ASDIR (PRN) SIMETHICONE 80 MG PO QID PRN MAGNESIUM 1 GM IV Q1H (PRN) POTASSIUM BICARBONATE/CIT AC 20 MEQ PO ASDIR (PRN) SODIUM PHOSPHATE with/in SODIUM CHLORIDE 0.9% 15 MM IV ASDIR (PRN) MIDODRINE HCL 5 MG PO TID@0600,1200,1700 (PRN) ACETAMINOPHEN 650 MG PO Q4H PRN ENOXAPARIN SODIUM 40 MG SUBQ DAILY MAGNESIUM 1 GM IV ASDIR (PRN) IPRATROPIUM/ALBUTEROL SULFATE 3 ML NEB RTQ4H PRN AMIODARONE HCL with/in DEXTROSE 5%-WATER 450 MG IV ASDIR POTASSIUM CHLORIDE 20 MEQ IV ASDIR (PRN) FUROSEMIDE 20 MG IV Q8HR POTASSIUM CHLORIDE 20 MEQ PO DAILY PANTOPRAZOLE 40 MG PO BEDTIME NOREPINEPHRINE BIT/0.9 % NACL 8 MG IV ASDIR clopidogreL 75 MG PO DAILY SODIUM PHOSPHATE with/in SODIUM CHLORIDE 0.9% 20 MM IV ASDIR (PRN) ASPIRIN 81 MG PO DAILY ATORVASTATIN CALCIUM 40 MG PO DAILY METOPROLOL TARTRATE 12.5 MG PO Q12HR MELATONIN 5 MG PO BEDTIME SOD BIPHOS/POT PHOSPHATE 1 PKT PO ASDIR (PRN) LORazepam 1 MG PO BID PRN dexmedeTOMIDine in 0.9 % NaCL 400 MCG IV TITRATE LABS CBC W/AUTO DIFF (12/30/23 03:37) WHITE BLOOD CELL 9.2 RED BLOOD CELL 3.71 L HEMOGLOBIN 11.7L L HEMATOCRIT 33.4L L MEAN CELL VOLUME 90 MEAN CELL HGB 31.5 MEAN CELL HGB CONCENTRATION 35.0 RED CELL DISTRIBUTION WIDTH 16.4 H PLATELET COUNT 182 MEAN PLATELET VOLUME 9.5 NEUTROPHIL % 79.2 H IMMATURE GRANULOCYTE % 0.5 LYMPHOCYTE % 12.8 L MONOCYTE % 6.4 EOSINOPHIL % 0.8 BASOPHIL % 0.3 NUCLEATED RBC % 0.0 NEUTROPHIL # 7.24 H IMMATURE GRANULOCYTE # 0.050 LYMPHOCYTE # 1.17 L MONOCYTE # 0.59 EOSINOPHIL # 0.07 BASOPHIL # 0.03 NUCLEATED RBC # 0.000 COMPREHENSIVE METABOLIC PANEL (12/30/23 03:37) SODIUM 133L L POTASSIUM 3.4L L CHLORIDE 96L L CARBON DIOXIDE 30 ANION GAP 10.4 GLUCOSE 100 BLOOD UREA NITROGEN 10 GLOMERULAR FILTRATION RATE >=60 max estimate CREATININE 0.9 BUN/CREATININE RATIO 11.1 L TOTAL PROTEIN 6.6 ALBUMIN 4.0 CALCIUM 9.0 BILIRUBIN TOTAL 0.9 SGOT/AST 24 SGPT/ALT 15 ALKALINE PHOSPHATASE 86 MAG (12/30/23 03:37) MAGNESIUM 1.8 Signed in PatientKeeper by OMAR CORONADO MD on 12/30/23 at 08:00 at 0800 ATTENTION *EDITS and/or ADDENDA must be made in Patient Keeper for this note. * * Edits and ammendments created in [facility] are not visible * * in Patient Keeper or the legal medical record (HPF). * [facility] #: [id number] END OF REPORT [facility] 2023-12-29 15:02:00 [facility] ([facility]) Intensive Care Progress Note REPORT #: [id number] REPORT STATUS: Signed DATE: 12/29/23 TIME: 1502 PATIENT: KOTA MONTES UNIT #: [id number] ROOM #: [id number] BED: A : 61 AGE: 63 SEX: M ATTEND: Pete Vang MD ADM AUTHOR: Bee Schmidt MD ATTENTION *EDITS and/or ADDENDA must be made in Patient Keeper for this note. * * Edits and ammendments created in [employer] are not visible * * in Patient Keeper or the legal medical record (HPF). * -- ASSESSMENT AND PLAN -- GENERAL ASSESSMENT: [facility] Critical Care Note Assessment Acute Hypoxic/Hypercapnic Respiratory Failure Acute on chronic HFrEF Exacerbation Acute Flash Pulmonary Edema Hypertensive emergency A-fib with RVR Cardiogenic shock Bilateral lower lobe pneumonia HTN Hyponatremia SAMMIE Hyperglycemia Anxiety HLD CAD w/ PCI stent x1 CABG x2 Tobacco use Plan: Neuro- Anxiolytics as needed CV- Hemodynamics reviewed, acceptable currently TTE with EF 25-30% and severe global hypokinesis Pressors weaned off, cardiology following Diuretics, beta-miguelangel, DAPT EP eval pending for AICD A-fib-IV Amio, monitor for improvement Pulm- Monitor pulse oximetry Goal SPO2 greater than 90% CXR: Diffuse bilateral airspace opacifications with mid to lower and right lung predominance. Small bilateral pleural effusions CTA : No PE detected. Bilateral consolidations. Interval worsening since 08/22/2023. Intubated in ED 12/25 for respiratory Failure Extubated 12/27 Had worsening hypoxia briefly, now down to 4 L nasal cannula O2, wean for sats more than 92% Empiric antibiotics for CAP coverage As needed bronchodilators GI- ADAT Renal- BMP reviewed Replace electrolytes as indicated Monitor UOP Avoid nephrotoxins; Renal function improving IV Lasix, nephrology following ID- Trend WBC, fever curve Empiric Abx; Ceftriaxone and azithromycin Urine strep/Legionella antigen negative Follow-up sputum cultures; WBC improved Heme- CBC reviewed No overt bleeding Trend Hgb, platelets Endo- Accuchecks Monitor for hypoglycemia Hgb A1C pending Code: FULL DVT ppx: SCDs/Lovenox PPI ppx : Protonix Plan of care discussed with patient. Discussed with RN, RT and in multidisciplinary rounds Critically ill, continue with close monitoring in ICU --------- Subjective: Events noted Extubated yesterday Patient remains somewhat uncooperative with care and asking to leave intermittently States he is upset that he was not well attended to Started on IV Amio this a.m. for A-fib with RVR Denies cough, shortness of breath unchanged HPI: Mr. Montes is a 63 yo male with pmx of HTN, HLD, CAD, CHF, CABG 06/25 who presented to ED with generalized malaise. He told his that he was not feeling well and drove himself to the hospital. Patient was in respiratory distress , refractory to Bipap and was subsequently intubated in ED. Flash pulmonary edema post intubation noted, and 80 mg IV Lasix was administered. Patient is being accepted to ICU for HLOC and continued monitoring. Past medical history: HTN, HLD, CAD, CHF PSurgHx: CABG in June 2023, PCI with stent , Multiple intubations FamHx: nc SocHx: ETOH quit June 2023, Ex smoker 2pk/40 yrs, Currently vapes Review of systems: Limited, as per HPI Physical Exam General: NAD Eyes: Anicteric sclerae. Mouth: MMM Neck: Supple. CV: Irregular rate and rhythm. Normal S1 and S2. Pulm: Good effort, no wheezing or Rales appreciated. Abdomen: Soft, nontender.BS+ Extremities: Trace lower extremity edema. Skin: Warm, dry. Neuro: Awake, no gross deficits Psych: Restless, anxious I have personally provided 45 minutes of critical care time. Time includes review of laboratory data, radiology results, discussion with consultants, family and staff and monitoring for potential decompensation. Interventions were performed as documented above. This is exclusive of time spent on separately billable procedures. -- OBJECTIVE -- VITALS (12/27 15:02 - 12/28 15:02): Temperature F: 98.3 (97.8 - 98.6) Temperature C: 37.5 (37.0 - 37.5) Temperature source: CORE Pulse Rate 141 (76 - 209) Respiratory rate: 12 (8 - 37) Blood pressure: 141/79 (78/48 - 160/100) Blood pressure source: Monitor I/Os (12/27 07:00 - 12/28 07:00): Net -228.30 Intake 873.00 Output 1,101.3 -- DATA -- MEDICATIONS AZITHROMYCIN 500 MG PO BEDTIME MUPIROCIN 1 APPLIC NASAL BID cefTRIAXone with/in WATER FOR INJECTION,STERILE 1000 MG IV BEDTIME PROMETHAZINE HCL 12.5 MG PO Q8H PRN SIMETHICONE 80 MG PO QID PRN MIDODRINE HCL 5 MG PO TID@0600,1200,1700 (PRN) ACETAMINOPHEN 650 MG PO Q4H PRN ENOXAPARIN SODIUM 40 MG SUBQ DAILY IPRATROPIUM/ALBUTEROL SULFATE 3 ML NEB RTQ4H PRN AMIODARONE HCL with/in DEXTROSE 5%-WATER 450 MG IV ASDIR FUROSEMIDE 20 MG IV Q8HR POTASSIUM CHLORIDE 20 MEQ PO DAILY AZITHROMYCIN with/in SODIUM CHLORIDE 0.9% 500 MG IV BEDTIME PANTOPRAZOLE with/in SODIUM CHLORIDE 0.9% 40 MG IV BEDTIME NOREPINEPHRINE BIT/0.9 % NACL 8 MG IV ASDIR clopidogreL 75 MG PO DAILY ASPIRIN 81 MG PO DAILY ATORVASTATIN CALCIUM 40 MG PO DAILY METOPROLOL TARTRATE 12.5 MG PO Q12HR MELATONIN 5 MG PO BEDTIME LORazepam 1 MG PO BID PRN dexmedeTOMIDine in 0.9 % NaCL 400 MCG IV TITRATE LABS PHOS (12/29/23 02:03) PHOSPHOROUS 2.5 COMPREHENSIVE METABOLIC PANEL (12/29/23 02:03) SODIUM 132L L POTASSIUM 3.6 CHLORIDE 98 CARBON DIOXIDE 27 ANION GAP 10.6 GLUCOSE 87 BLOOD UREA NITROGEN 7L L GLOMERULAR FILTRATION RATE >=60 max estimate CREATININE 0.7 BUN/CREATININE RATIO 10.0 L TOTAL PROTEIN 5.9 ALBUMIN 3.4 CALCIUM 8.2 L BILIRUBIN TOTAL 0.7 SGOT/AST 21 SGPT/ALT 13 ALKALINE PHOSPHATASE 61 CBC W/AUTO DIFF (12/29/23 02:03) WHITE BLOOD CELL 7.2 RED BLOOD CELL 3.48 L HEMOGLOBIN 11.0L L HEMATOCRIT 31.5L L MEAN CELL VOLUME 91 MEAN CELL HGB 31.6 MEAN CELL HGB CONCENTRATION 34.9 RED CELL DISTRIBUTION WIDTH 16.2 H PLATELET COUNT 153 MEAN PLATELET VOLUME 9.7 NEUTROPHIL % 71.8 IMMATURE GRANULOCYTE % 0.6 LYMPHOCYTE % 18.3 MONOCYTE % 7.3 EOSINOPHIL % 1.4 BASOPHIL % 0.6 NUCLEATED RBC % 0.0 NEUTROPHIL # 5.14 IMMATURE GRANULOCYTE # 0.040 LYMPHOCYTE # 1.31 L MONOCYTE # 0.52 EOSINOPHIL # 0.10 BASOPHIL # 0.04 NUCLEATED RBC # 0.000 MAG (12/29/23 02:03) MAGNESIUM 1.6 -- ATTESTATION -- TIME SPENT ON PATIENT CARE: - Direct - Counseling - Coordination of Care - Critical Care: time spent apart from any procedure 45 minutes Signed in PatientKeeper by BEE SCHMIDT MD on 12/29/23 at 15:10 at 1510 ATTENTION *EDITS and/or ADDENDA must be made in Patient Keeper for this note. * * Edits and ammendments created in [employer] are not visible * * in Patient Keeper or the legal medical record ([facility]). * RPT #: [id number] END OF REPORT [facility] 2023-12-29 13:53:00 [facility] ([facility]) Internal Med. Progress Note REPORT #: [id number] REPORT STATUS: Signed DATE: 12/29/23 TIME: 1353 PATIENT: KOTA MONTES UNIT #: [id number] ROOM #: [id number].IC05 BED: A : 61 AGE: 63 SEX: M ATTEND: Pete Vang MD [facility] AUTHOR: Lucía Knight MD ATTENTION *EDITS and/or ADDENDA must be made in Patient Keeper for this note. * * Edits and ammendments created in [employer] are not visible * * in Patient Keeper or the legal medical record ([facility]). * -- ASSESSMENT AND PLAN -- PROBLEMS: 1: Respiratory failure, unspecified with hypoxia A/P: Acute hypoxemic respiratory failure secondary to congestive heart failure exacerbation Patient was intubated in the emergency department He has been successfully extubated on this morning Continue supplemental oxygen and wean as tolerated Pulmonary medicine following 12/29/2023 Respiratory status continues to improve Patient is currently saturating 97% on 4 L per nasal cannula 2: Systolic dysfunction with acute on chronic heart failure A/P: patient has systolic congestive heart failure Continue IV Lasix Patient feels that his home dose of Lasix was not strong enough He has requested a higher dose upon discharge Patient's to come the hospital and bring medications 12/29/2023 Continue diuresis Continue to monitor renal function and electrolytes 3: Atrial fibrillation with RVR A/P: Patient went into A-fib with RVR this morning patient's heart rate went up into the 200s He has been started on amiodarone drip by business department chair Continue to monitor in ICU 4: Nausea A/P: Patient complains of nausea Will order antiemetics as needed 5: Hypertension A/P: continue metoprolol 6: Coronary artery disease A/P: continue aspirin Plavix beta-miguelangel and statin 7: Acute kidney injury A/P: resolved 8: Alcohol abuse A/P: continue to monitor for signs of withdrawal 9: Full code status A/P: continue aggressive treatment plan Patient's serves as surrogate decision maker -- SUBJECTIVE -- CHIEF COMPLAINT: shortness of breath HPI: Patient seen in follow-up regarding acute hypoxemic respiratory failure secondary to exacerbation of CHF. Patient was intubated and was successfully extubated yesterday. Patient complains that he is heart rate increased because he was not given his medication on time and he could not take his medication until he had something to eat. Nursing staff reports the patient has been very abusive to staff. Patient's is at bedside. Patient now reports feeling nauseated -REVIEW OF SYSTEMS- GENERAL: Negative for fever, malaise, fatigue. EYES: Negative for blurry vision. No diplopia. EARS/NOSE/THROAT: Negative for sore throat. No otalgia. No rhinorrhea. BREAST: Negative for change in shape, swelling, masses, nipple discharge, pain, skin changes. RESPIRATORY: Negative for dyspnea or wheeze. No cough. CARDIOVASCULAR: Negative for chest pain or palpitations. No extremity swelling. GASTROINTESTINAL: Negative for abdominal pain or nausea. No emesis. No diarrhea. GENITOURINARY: Nausea MUSCULOSKELETAL: Negative for joint stiffness, pain, or arthralgias. SKIN: Negative for rashes. No pruritus. NEUROLOGICAL: Negative for headache. No vertigo. Denies paresthesias. PSYCHIATRIC: Negative for specific complaints. ENDOCRINE: Negative for cold intolerance, heat intolerance, polyphagia, polydipsia, polyuria, weight change, fatigue. HEMATALOGIC / LYMPHORETICULAR: Negative for excessive bleeding, unusual masses. ALLERGIC / IMMUNOLOGIC: Negative for heat/cold intolerance, polydipsia, or polyuria. -- OBJECTIVE -- VITALS (12/27 13:53 - 12/28 13:53): Temperature F: 98.3 (97.8 - 98.6) Temperature C: 37.5 (37.1 - 37.5) Temperature source: CORE Pulse Rate 135 (76 - 165) Respiratory rate: 14 (9 - 37) Blood pressure: 126/75 (78/48 - 143/81) Blood pressure source: Monitor I/Os (12/27 07:00 - 12/28 07:00): Net -228.30 Intake 873.00 Output 1,101.3 -EXAM- GENERAL: Well developed, well nourished, Per male sitting up in bed in no apparent distress. HEAD: Normocephalic, atraumatic. EYES: PERRL, EOM intact, conjunctiva and sclera clear, without nystagmus, lids normal. EARS: Normal external ear canals and grossly normal hearing. NOSE: No deformity. MOUTH: Oropharynx without deformities or lesions, normal mucosa.. NECK: No masses, no thyromegaly, no abnormal cervical nodes, trachea midline. CHEST: Grossly normal appearance. BREAST: No gynecomastia noted. LUNGS: Clear bilaterally with normal respiratory effort. HEART: Irregularly irregular rhythm and rate, no murmurs, no rubs, no gallops, no clicks. ABDOMEN: Soft, non-tender, no organomegaly, no masses noted. MUSCULOSKELETAL: No deformity. EXTREMITIES: No clubbing, no cyanosis, no edema. NEUROLOGICAL: No focal deficits, cranial nerves II-XII grossly intact, normal coordination, normal muscle tone. PULSES: Pulses normal in all extremities. RECTAL: deferred. GENITOURINARY: Singh catheter in place. SKIN: Intact without significant lesions, or rashes. LYMPH NODES: No significant cervical node adenopathy. PSYCHIATRIC: Alert and oriented to Person, seems slightly confused. Cooperative and calm. -- DATA -- MEDICATIONS MUPIROCIN 1 APPLIC NASAL BID cefTRIAXone with/in WATER FOR INJECTION,STERILE 1000 MG IV BEDTIME SIMETHICONE 80 MG PO QID PRN MIDODRINE HCL 5 MG PO TID@0600,1200,1700 (PRN) ACETAMINOPHEN 650 MG PO Q4H PRN ENOXAPARIN SODIUM 40 MG SUBQ DAILY IPRATROPIUM/ALBUTEROL SULFATE 3 ML NEB RTQ4H PRN AMIODARONE HCL with/in DEXTROSE 5%-WATER 450 MG IV ASDIR FUROSEMIDE 20 MG IV Q8HR POTASSIUM CHLORIDE 20 MEQ PO DAILY AZITHROMYCIN with/in SODIUM CHLORIDE 0.9% 500 MG IV BEDTIME PANTOPRAZOLE with/in SODIUM CHLORIDE 0.9% 40 MG IV BEDTIME NOREPINEPHRINE BIT/0.9 % NACL 8 MG IV ASDIR clopidogreL 75 MG PO DAILY ASPIRIN 81 MG PO DAILY ATORVASTATIN CALCIUM 40 MG PO DAILY METOPROLOL TARTRATE 12.5 MG PO Q12HR MELATONIN 5 MG PO BEDTIME dexmedeTOMIDine in 0.9 % NaCL 400 MCG IV TITRATE LABS PHOS (12/29/23 02:03) PHOSPHOROUS 2.5 COMPREHENSIVE METABOLIC PANEL (12/29/23 02:03) SODIUM 132L L POTASSIUM 3.6 CHLORIDE 98 CARBON DIOXIDE 27 ANION GAP 10.6 GLUCOSE 87 BLOOD UREA NITROGEN 7L L GLOMERULAR FILTRATION RATE >=60 max estimate CREATININE 0.7 BUN/CREATININE RATIO 10.0 L TOTAL PROTEIN 5.9 ALBUMIN 3.4 CALCIUM 8.2 L BILIRUBIN TOTAL 0.7 SGOT/AST 21 SGPT/ALT 13 ALKALINE PHOSPHATASE 61 CBC W/AUTO DIFF (12/29/23 02:03) WHITE BLOOD CELL 7.2 RED BLOOD CELL 3.48 L HEMOGLOBIN 11.0L L HEMATOCRIT 31.5L L MEAN CELL VOLUME 91 MEAN CELL HGB 31.6 MEAN CELL HGB CONCENTRATION 34.9 RED CELL DISTRIBUTION WIDTH 16.2 H PLATELET COUNT 153 MEAN PLATELET VOLUME 9.7 NEUTROPHIL % 71.8 IMMATURE GRANULOCYTE % 0.6 LYMPHOCYTE % 18.3 MONOCYTE % 7.3 EOSINOPHIL % 1.4 BASOPHIL % 0.6 NUCLEATED RBC % 0.0 NEUTROPHIL # 5.14 IMMATURE GRANULOCYTE # 0.040 LYMPHOCYTE # 1.31 L MONOCYTE # 0.52 EOSINOPHIL # 0.10 BASOPHIL # 0.04 NUCLEATED RBC # 0.000 MAG (12/29/23 02:03) MAGNESIUM 1.6 -- ATTESTATION -- CARE ACTIVITIES / CARE COORDINATION: - I have seen and examined this patient Signed in PatientKeeper by Lucía Knight MD on 12/29/23 at 13:59 at 1359 ATTENTION *EDITS and/or ADDENDA must be made in Patient Keeper for this note. * * Edits and ammendments created in [employer] are not visible * * in Patient Keeper or the legal medical record ([facility]). * RPT #: [id number] END OF REPORT [facility] 2023-12-29 09:58:00 [facility] ([facility]) Nephrology Progress Note REPORT #: [id number] REPORT STATUS: Signed DATE: 12/29/23 TIME: 957 PATIENT: KOTA MONTES UNIT #: [id number] ROOM #: [id number] BED: A : 61 AGE: 63 SEX: M ATTEND: Pete Vang MD ADM AUTHOR: Thu Mosqueda MD ATTENTION *EDITS and/or ADDENDA must be made in Patient Keeper for this note. * * Edits and ammendments created in [employer] are not visible * * in Patient Keeper or the legal medical record ([facility]). * -- ASSESSMENT AND PLAN -- GENERAL ASSESSMENT: 1. SAMMIE likely related hemodynamic factors/ATN/ARTURO; ddx cardiroeanl - Baseline Cr 2. Volume status: euvolemic or close to dry weight 3. Acid-base: compensated metabolic acidosis 4. Electrolytes: hyponatremia, hyperkalemia 5. Hypotension on levophed 6. CAD sp cabg - SCr is improved and at 0.7 today. Monitor renal function with diuresis and hemodynamic changes with A-fib - On lasix 40mg IV BID and will continue today -Extubated now on chest x-ray looks better - Continue singh for now - K was high on admit but improved now - On Abx for possible pneumonia Will follow Thank you kindly for allowing me to participate in taking care of this patient. -- SUBJECTIVE -- PATIENT NARRATIVE: In A-fib with RVR. Getting metoprolol. Is extubated and awake today -- OBJECTIVE -- VITALS (12/27 09:58 - 12/28 09:58): Temperature F: 97.9 (97.8 - 98.6) Temperature C: 37.1 (37.1 - 37.8) Temperature source: CORE Pulse Rate 94 (74 - 109) Respiratory rate: 16 (9 - 37) Blood pressure: 115/67 (78/47 - 118/70) Blood pressure source: Monitor I/Os (12/27 07:00 - 12/28 07:00): Net -228.30 Intake 873.00 Output 1,101.3 -EXAM- OTHER: GeNeRAL: NaD ENt; No JVd, intubated luNgS: Coarse BS BL CV; Rrr WITHOUT RUB AbDOMEN: SOFT?NT/Nd WITH Nabs Ext: + EdEmA Le bILATERALLY Skin: no rash Neuro sedated -- DATA -- MEDICATIONS FUROSEMIDE 40 MG IV BID@0900,1700 ACETAMINOPHEN 650 MG PO Q4H PRN MUPIROCIN 1 APPLIC NASAL BID ENOXAPARIN SODIUM 40 MG SUBQ DAILY cefTRIAXone with/in WATER FOR INJECTION,STERILE 1000 MG IV BEDTIME IPRATROPIUM/ALBUTEROL SULFATE 3 ML NEB RTQ4H PRN AZITHROMYCIN with/in SODIUM CHLORIDE 0.9% 500 MG IV BEDTIME PANTOPRAZOLE with/in SODIUM CHLORIDE 0.9% 40 MG IV BEDTIME NOREPINEPHRINE BIT/0.9 % NACL 8 MG IV ASDIR clopidogreL 75 MG PO DAILY ASPIRIN 81 MG PO DAILY ATORVASTATIN CALCIUM 40 MG PO DAILY METOPROLOL TARTRATE 12.5 MG PO Q12HR MELATONIN 5 MG PO BEDTIME dexmedeTOMIDine in 0.9 % NaCL 400 MCG IV TITRATE LABS PHOS (12/29/23 02:03) PHOSPHOROUS 2.5 COMPREHENSIVE METABOLIC PANEL (12/29/23 02:03) SODIUM 132L L POTASSIUM 3.6 CHLORIDE 98 CARBON DIOXIDE 27 ANION GAP 10.6 GLUCOSE 87 BLOOD UREA NITROGEN 7L L GLOMERULAR FILTRATION RATE >=60 max estimate CREATININE 0.7 BUN/CREATININE RATIO 10.0 L TOTAL PROTEIN 5.9 ALBUMIN 3.4 CALCIUM 8.2 L BILIRUBIN TOTAL 0.7 SGOT/AST 21 SGPT/ALT 13 ALKALINE PHOSPHATASE 61 CBC W/AUTO DIFF (12/29/23 02:03) WHITE BLOOD CELL 7.2 RED BLOOD CELL 3.48 L HEMOGLOBIN 11.0L L HEMATOCRIT 31.5L L MEAN CELL VOLUME 91 MEAN CELL HGB 31.6 MEAN CELL HGB CONCENTRATION 34.9 RED CELL DISTRIBUTION WIDTH 16.2 H PLATELET COUNT 153 MEAN PLATELET VOLUME 9.7 NEUTROPHIL % 71.8 IMMATURE GRANULOCYTE % 0.6 LYMPHOCYTE % 18.3 MONOCYTE % 7.3 EOSINOPHIL % 1.4 BASOPHIL % 0.6 NUCLEATED RBC % 0.0 NEUTROPHIL # 5.14 IMMATURE GRANULOCYTE # 0.040 LYMPHOCYTE # 1.31 L MONOCYTE # 0.52 EOSINOPHIL # 0.10 BASOPHIL # 0.04 NUCLEATED RBC # 0.000 MAG (12/29/23 02:03) MAGNESIUM 1.6 ARTERIAL BLOOD GAS (12/28/23 13:33) ARTERIAL BLOOD GAS PH 7.462 H ARTERIAL BLOOD GAS PCO2 42.9 ARTERIAL BLOOD GAS PO2 178.7 H BICARBONATE TOTAL HCO3 30.0 H BASE EXCESS 5.6 H ABG O2 SATURATION 99.0 H ABG TYPE Arterial ARTERIAL FIO2 68.0 PaO2/FiO2 262.70 ABG L/M 12.0 ABG VENT MODE High Flow ALLENS TEST Yes TOTAL HGB 12.7 L OXYHEMOGLOBIN 98.4 H CARBOXYHEMOGLOBIN 0.3 METHEMOGLOBIN <0.8 TCO2 ARTERIAL 31.3 H Signed in PatientKeeper by Thu Mosqueda MD on 12/29/23 at 09:59 at 0959 ATTENTION *EDITS and/or ADDENDA must be made in Patient Keeper for this note. * * Edits and ammendments created in [employer] are not visible * * in Patient Keeper or the legal medical record ([facility]). * [facility] #: [id number] END OF REPORT [facility] 2023-12-29 09:46:00 [id number] [address] PATIENT NAME: KOTA MONTES ADMIT DATE: 12/26/23 ACCOUNT NO: [id number] ROOM NO: [place] [address] AGE: 63 REPORT TYPE: eELECTROCARDIOGRAM SEX: M ADMITTING PHYSICIAN:Pete Vang MD ATTENDING PHYSICIAN:Pete Vang MD Order: [id number] Test Reason : TACHYCARDIA Test Date/Time Stamp: [place] Dec 29 2023 09:46:37 Blood Pressure : / mmHG Vent. Rate : 210 BPM Atrial Rate : 000 BPM P-R Int : 000 ms QRS Dur : 154 ms QT Int : 246 ms P-R-T Axes : 000 134 -55 degrees QTc Int : 460 ms Atrial fibrillation with rapid ventricular response with premature ventricular or aberrantly conducted complexes Right axis deviation Nonspecific intraventricular block Abnormal ECG When compared with ECG of 26-DEC-2023 19:26, (Unconfirmed) Atrial fibrillation has replaced Sinus rhythm Vent. rate has increased BY 88 BPM QRS axis shifted right T wave inversion less evident in Inferior leads Nonspecific T wave abnormality has replaced inverted T waves in Lateral leads Confirmed by MARIAM CHARLTON ([id number]) on 01/01/2024 2:36:51 PM Referred By: Pete Vang Confirmed by:MARIAM CHARLTON at [address] [facility] [address] [facility] [id number] PATIENT NAME: KOTA MONTES [facility] 2023-12-29 09:09:00 [facility] ([facility]) Cardiology Progress Notes REPORT #: [id number] REPORT STATUS: Signed DATE: 12/29/23 TIME: 908 PATIENT: KOTA MONTES UNIT #: [id number] ROOM #: [place] BED: A : 61 AGE: 63 SEX: M ATTEND: Pete Vang MD ADM AUTHOR: Vannesa Saul NP ATTENTION *EDITS and/or ADDENDA must be made in Patient Keeper for this note. * * Edits and ammendments created in [facility] are not visible * * in Patient Keeper or the legal medical record ([facility]). * -- CO-SIGNATURE -- COMMENTS: agree with below; attempting chem CV with iv amio Signed in PatientKeeper by SERGE GIORDANO MD on 12/29/23 at 17:42 -- ASSESSMENT AND PLAN -- ADDITIONAL COMMENTS: # AF rvr -doc on tele in am(12/29/23) -Start on amio gtt per protocol -Give lopressor IV prn for HR control (12/29/23) -Give IV dig if needed for HR control -Monitor tele -Continue Lovenox 40 sc for now- change to lovenox 1 mg/kg bid if failed chem CV #Acute decompensated heart failure - TTE LVEF 25-30%(12/25), previously 30-35% (09/2023); severe global hypokinesis of the left ventricle. - IV Diuresis: Change Lasix 40mg IV BID to 20 mg IV q 8 hrs(12/28) d/t borderline hypotension -Add k 20 meq po qd - strict I/Os - maintain negative fluid balance, goal negative 2 L/day - 2 gm Na diet, 1500 mL fluid restriction -Started on BB(12/27) yet held d/t low BP -Lovenox sc for DVT prophy -Rx on DC: ASA, bumex 1mg QD, Lopressor 12,5mg BID, ticagrelor - AICD/ ASSOCIATE SOFTWARE ENGINEER necessary given no improvement in LVEF - EP, Aslam eval pending - Monitor clinically as may require IABP/MCS if further deteriorates #CAD, sp ACB -[facility]: s/p PCI 2005, 06/2022, 12/24/2022, 12/24/2022, 2v ACB 06/25 followed by PCI again 07/25, Dr Eduardo -Continue asa/plavix/lipitor(12/27) -Lovenox sc for DVT prophy -Cardiac enzymes: negative # HTN: -Hypotensive on admission-off levophed -BP stable -Started on BB(12/27) yet held d/t low BP -Start on midodrine prn for SBP<90 #Acute Hypoxic/Hypercapnic Respiratory Failure-resolved -extubated(12/27) -Now on 3 L NC CTA : No PE detected. Bilateral consolidations. Interval worsening since 08/22/2023 Mgmt per pulm # HL Continue lipitor 40 mg qd(12/27) # mild CKD nephro following Cr stable # hypomagnesemia Replete #Anxiety -Not cooperative w/ staffs -- SUBJECTIVE -- PATIENT NARRATIVE: Went to AF rvr today am. No c/o cp -- OBJECTIVE -- VITALS (12/27 09:09 - 12/28 09:09): Temperature F: 97.9 (97.8 - 98.6) Temperature C: 37.1 (37.1 - 37.9) Temperature source: CORE Pulse Rate 94 (74 - 109) Respiratory rate: 16 (9 - 37) Blood pressure: 115/67 (78/47 - 118/70) Blood pressure source: Monitor I/Os (12/27 07:00 - 12/28 07:00): Net -228.30 Intake 873.00 Output 1,101.3 -EXAM- GENERAL: Well developed, well nourished, in no apparent distress. BREAST: No masses, no gynecomastia noted. LUNGS: Clear bilaterally with normal respiratory effort. HEART: irregular rate and rhythm, normal S1, S2, no murmurs, no rubs, no gallops, no clicks. EXTREMITIES: No clubbing, no cyanosis, no edema. PULSES: Pulses normal in all extremities. -- DATA -- MEDICATIONS FUROSEMIDE 40 MG IV BID@0900,1700 ACETAMINOPHEN 650 MG PO Q4H PRN MUPIROCIN 1 APPLIC NASAL BID ENOXAPARIN SODIUM 40 MG SUBQ DAILY cefTRIAXone with/in WATER FOR INJECTION,STERILE 1000 MG IV BEDTIME IPRATROPIUM/ALBUTEROL SULFATE 3 ML NEB RTQ4H PRN AZITHROMYCIN with/in SODIUM CHLORIDE 0.9% 500 MG IV BEDTIME PANTOPRAZOLE with/in SODIUM CHLORIDE 0.9% 40 MG IV BEDTIME NOREPINEPHRINE BIT/0.9 % NACL 8 MG IV ASDIR clopidogreL 75 MG PO DAILY ASPIRIN 81 MG PO DAILY ATORVASTATIN CALCIUM 40 MG PO DAILY METOPROLOL TARTRATE 12.5 MG PO Q12HR MELATONIN 5 MG PO BEDTIME dexmedeTOMIDine in 0.9 % NaCL 400 MCG IV TITRATE LABS PHOS (12/29/23 02:03) PHOSPHOROUS 2.5 COMPREHENSIVE METABOLIC PANEL (12/29/23 02:03) SODIUM 132L L POTASSIUM 3.6 CHLORIDE 98 CARBON DIOXIDE 27 ANION GAP 10.6 GLUCOSE 87 BLOOD UREA NITROGEN 7L L GLOMERULAR FILTRATION RATE >=60 max estimate CREATININE 0.7 BUN/CREATININE RATIO 10.0 L TOTAL PROTEIN 5.9 ALBUMIN 3.4 CALCIUM 8.2 L BILIRUBIN TOTAL 0.7 SGOT/AST 21 SGPT/ALT 13 ALKALINE PHOSPHATASE 61 CBC W/AUTO DIFF (12/29/23 02:03) WHITE BLOOD CELL 7.2 RED BLOOD CELL 3.48 L HEMOGLOBIN 11.0L L HEMATOCRIT 31.5L L MEAN CELL VOLUME 91 MEAN CELL HGB 31.6 MEAN CELL HGB CONCENTRATION 34.9 RED CELL DISTRIBUTION WIDTH 16.2 H PLATELET COUNT 153 MEAN PLATELET VOLUME 9.7 NEUTROPHIL % 71.8 IMMATURE GRANULOCYTE % 0.6 LYMPHOCYTE % 18.3 MONOCYTE % 7.3 EOSINOPHIL % 1.4 BASOPHIL % 0.6 NUCLEATED RBC % 0.0 NEUTROPHIL # 5.14 IMMATURE GRANULOCYTE # 0.040 LYMPHOCYTE # 1.31 L MONOCYTE # 0.52 EOSINOPHIL # 0.10 BASOPHIL # 0.04 NUCLEATED RBC # 0.000 MAG (12/29/23 02:03) MAGNESIUM 1.6 ARTERIAL BLOOD GAS (12/28/23 13:33) ARTERIAL BLOOD GAS PH 7.462 H ARTERIAL BLOOD GAS PCO2 42.9 ARTERIAL BLOOD GAS PO2 178.7 H BICARBONATE TOTAL HCO3 30.0 H BASE EXCESS 5.6 H ABG O2 SATURATION 99.0 H ABG TYPE Arterial ARTERIAL FIO2 68.0 PaO2/FiO2 262.70 ABG L/M 12.0 ABG VENT MODE High Flow ALLENS TEST Yes TOTAL HGB 12.7 L OXYHEMOGLOBIN 98.4 H CARBOXYHEMOGLOBIN 0.3 METHEMOGLOBIN <0.8 TCO2 ARTERIAL 31.3 H Signed in PatientKeeper by Vannesa Saul NP on 12/29/23 at 11:25 Cosigned by SERGE GIORDANO MD on 12/29/23 at 17:42 at 1742 at 1742 ATTENTION *EDITS and/or ADDENDA must be made in Patient Keeper for this note. * * Edits and ammendments created in [employer] are not visible * * in Patient Keeper or the legal medical record ([facility]). * [facility] #: [id number] END OF REPORT [facility] 2023-12-28 17:11:00 [facility] ([facility]) Internal Med. Progress Note REPORT #: [id number] REPORT STATUS: Signed DATE: 12/28/23 TIME: 171 PATIENT: KOTA MONTES UNIT #: [id number] ROOM #: [id number].IC05 BED: A : 61 AGE: 63 SEX: M ATTEND: Pete Vang MD ADM AUTHOR: Lucía Knight MD ATTENTION *EDITS and/or ADDENDA must be made in Patient Keeper for this note. * * Edits and ammendments created in [employer] are not visible * * in Patient Keeper or the legal medical record ([facility]). * -- ASSESSMENT AND PLAN -- PROBLEMS: 1: Respiratory failure, unspecified with hypoxia A/P: Acute hypoxemic respiratory failure secondary to congestive heart failure exacerbation Patient was intubated in the emergency department He has been successfully extubated on this morning Continue supplemental oxygen and wean as tolerated Pulmonary medicinev 2: Systolic dysfunction with acute on chronic heart failure A/P: patient has systolic congestive heart failure Continue IV Lasix Patient feels that his home dose of Lasix was not strong enough He has requested a higher dose upon discharge Patient's to come the hospital and bring medications 3: Hypertension A/P: continue metoprolol 4: Coronary artery disease A/P: continue aspirin Plavix beta-miguelangel and statin 5: Acute kidney injury A/P: resolved 6: Alcohol abuse A/P: continue to monitor for signs of withdrawal 7: Full code status A/P: continue aggressive treatment plan Patient's serves as surrogate decision maker -- SUBJECTIVE -- CHIEF COMPLAINT: shortness of breath HPI: patient seen in follow-up regarding acute hypoxemic respiratory failure secondary to acute on chronic CHF exacerbation with flash pulmonary edema. Patient was intubated and is status post extubation this morning. Patient is requesting a higher dose of Lasix for when he is discharged. -REVIEW OF SYSTEMS- GENERAL: Negative for fever, malaise, fatigue. EYES: Negative for blurry vision. No diplopia. EARS/NOSE/THROAT: Negative for sore throat. No otalgia. No rhinorrhea. BREAST: Negative for change in shape, swelling, masses, nipple discharge, pain, skin changes. RESPIRATORY: Negative for dyspnea or wheeze. No cough. CARDIOVASCULAR: Negative for chest pain or palpitations. No extremity swelling. GASTROINTESTINAL: Negative for abdominal pain or nausea. No emesis. No diarrhea. GENITOURINARY: Negative for dysuria, frequency, or urgency. No gross hematuria. MUSCULOSKELETAL: Negative for joint stiffness, pain, or arthralgias. SKIN: Negative for rashes. No pruritus. NEUROLOGICAL: Negative for headache. No vertigo. Denies paresthesias. PSYCHIATRIC: Negative for specific complaints. ENDOCRINE: Negative for cold intolerance, heat intolerance, polyphagia, polydipsia, polyuria, weight change, fatigue. HEMATALOGIC / LYMPHORETICULAR: Negative for excessive bleeding, unusual masses. ALLERGIC / IMMUNOLOGIC: Negative for heat/cold intolerance, polydipsia, or polyuria. -- OBJECTIVE -- VITALS (12/26 17:11 - 12/27 17:11): Temperature F: 99.6 Temperature C: 37.4 (37.1 - 38.0) Temperature source: CORE Pulse Rate 76 (74 - 122) Respiratory rate: 12 (9 - 33) Blood pressure: 94/54 (78/47 - 158/96) Blood pressure source: Monitor I/Os (12/26 07:00 - 12/27 07:00): Net -518.60 Intake 1,531.40 Output 2,050 -EXAM- GENERAL: Well developed, well nourished, Per male sitting up in bed in no apparent distress. HEAD: Normocephalic, atraumatic. EYES: PERRL, EOM intact, conjunctiva and sclera clear, without nystagmus, lids normal. EARS: Normal external ear canals and grossly normal hearing. NOSE: No deformity. MOUTH: Oropharynx without deformities or lesions, normal mucosa.. NECK: No masses, no thyromegaly, no abnormal cervical nodes, trachea midline. CHEST: Grossly normal appearance. BREAST: No gynecomastia noted. LUNGS: Clear bilaterally with normal respiratory effort. HEART: Regular rate and rhythm, normal S1, S2, no murmurs, no rubs, no gallops, no clicks. ABDOMEN: Soft, non-tender, no organomegaly, no masses noted. MUSCULOSKELETAL: No deformity. EXTREMITIES: No clubbing, no cyanosis, no edema. NEUROLOGICAL: No focal deficits, cranial nerves II-XII grossly intact, normal coordination, normal muscle tone. PULSES: Pulses normal in all extremities. RECTAL: deferred. GENITOURINARY: Singh catheter in place. SKIN: Intact without significant lesions, or rashes. LYMPH NODES: No significant cervical node adenopathy. PSYCHIATRIC: Alert and oriented to Person, seems slightly confused. Cooperative and calm. -- DATA -- MEDICATIONS FUROSEMIDE 40 MG IV BID@0900,1700 ACETAMINOPHEN 650 MG PO Q4H PRN MUPIROCIN 1 APPLIC NASAL BID ENOXAPARIN SODIUM 40 MG SUBQ DAILY cefTRIAXone with/in WATER FOR INJECTION,STERILE 1000 MG IV BEDTIME IPRATROPIUM/ALBUTEROL SULFATE 3 ML NEB RTQ4H PRN AZITHROMYCIN with/in SODIUM CHLORIDE 0.9% 500 MG IV BEDTIME PANTOPRAZOLE with/in SODIUM CHLORIDE 0.9% 40 MG IV BEDTIME clopidogreL 75 MG PO DAILY ASPIRIN 81 MG PO DAILY ATORVASTATIN CALCIUM 40 MG PO DAILY METOPROLOL TARTRATE 12.5 MG PO Q12HR dexmedeTOMIDine in 0.9 % NaCL 400 MCG IV TITRATE LABS ARTERIAL BLOOD GAS (12/28/23 13:33) ARTERIAL BLOOD GAS PH 7.462 H ARTERIAL BLOOD GAS PCO2 42.9 ARTERIAL BLOOD GAS PO2 178.7 H BICARBONATE TOTAL HCO3 30.0 H BASE EXCESS 5.6 H ABG O2 SATURATION 99.0 H ABG TYPE Arterial ARTERIAL FIO2 68.0 PaO2/FiO2 262.70 ABG L/M 12.0 ABG VENT MODE High Flow ALLENS TEST Yes TOTAL HGB 12.7 L OXYHEMOGLOBIN 98.4 H CARBOXYHEMOGLOBIN 0.3 METHEMOGLOBIN <0.8 TCO2 ARTERIAL 31.3 H ARTERIAL BLOOD GAS (12/28/23 04:34) ARTERIAL BLOOD GAS PH 7.443 ARTERIAL BLOOD GAS PCO2 35.8 ARTERIAL BLOOD GAS PO2 264.4 H BICARBONATE TOTAL HCO3 23.9 BASE EXCESS 0.2 ABG O2 SATURATION 99.9 H ABG TYPE Arterial ARTERIAL FIO2 60.0 PaO2/FiO2 440.60 ABG VENT MODE AC ABG VENT RESP RATE 24 ABG TIDAL VOLUME 400 ABG PEEP 10.0 ABG SITE Left Radial ALLENS TEST Yes TOTAL HGB 13.2 OXYHEMOGLOBIN 99.3 H CARBOXYHEMOGLOBIN 0.3 D TCO2 ARTERIAL 25.0 H CBC W/AUTO DIFF (12/28/23 03:39) WHITE BLOOD CELL 8.1 RED BLOOD CELL 4.13 L HEMOGLOBIN 12.6L L HEMATOCRIT 38.4L L MEAN CELL VOLUME 93 MEAN CELL HGB 30.5 MEAN CELL HGB CONCENTRATION 32.8 RED CELL DISTRIBUTION WIDTH 16.3 H PLATELET COUNT 207 MEAN PLATELET VOLUME 10.1 NEUTROPHIL % 78.9 H IMMATURE GRANULOCYTE % 0.6 LYMPHOCYTE % 9.8 L MONOCYTE % 9.6 EOSINOPHIL % 0.6 BASOPHIL % 0.5 NUCLEATED RBC % 0.0 NEUTROPHIL # 6.41 IMMATURE GRANULOCYTE # 0.050 LYMPHOCYTE # 0.80 L MONOCYTE # 0.78 EOSINOPHIL # 0.05 BASOPHIL # 0.04 NUCLEATED RBC # 0.000 PHOS (12/28/23 03:39) PHOSPHOROUS 2.4 MAG (12/28/23 03:39) MAGNESIUM 1.7 BASIC METABOLIC PANEL (12/28/23 03:39) SODIUM 136 POTASSIUM 4.3 CHLORIDE 99 CARBON DIOXIDE 31 ANION GAP 10.3 D GLUCOSE 121H H BLOOD UREA NITROGEN 12 GLOMERULAR FILTRATION RATE >=60 max estimate CREATININE 1.2 BUN/CREATININE RATIO 10.0 L CALCIUM 8.4 L GLU BED (12/27/23 17:36) GLUBED 88 -- ATTESTATION -- CARE ACTIVITIES / CARE COORDINATION: - I have seen and examined this patient Signed in PatientKeeper by Lucía Knight MD on 12/28/23 at 17:25 at 1725 ATTENTION *EDITS and/or ADDENDA must be made in Patient Keeper for this note. * * Edits and ammendments created in [employer] are not visible * * in Patient Keeper or the legal medical record ([facility]). * RPT #: [id number] END OF REPORT [facility] 2023-12-28 16:29:00 [facility] ([facility]) ElectroPhys. Consultation REPORT #: [id number] REPORT STATUS: Signed DATE: 12/28/23 TIME: 1629 PATIENT: KOTA MONTES UNIT #: [id number] ROOM #: [id number] BED: A : 61 AGE: 63 SEX: M ATTEND: Pete Vang MD ADM AUTHOR: Tana Meneses MD ATTENTION *EDITS and/or ADDENDA must be made in Patient Keeper for this note. * * Edits and ammendments created in [employer] are not visible * * in Patient Keeper or the legal medical record ([facility]). * -- HISTORY -- HPI: Cardiac Electrophysiology Inpatient Consultation Dear Dr. MARIAM CHARLTON, thank you very much for the pleasure of managing your patients. Discussion below: Reason for consultation: ICD Impression Current -ICD evaluation -Multiple other comorbidities including respiratory failure, hypertensive emergency, CHF exacerbation, Cardiogenic shock and pulmonary edema Active Past Medical History:: -Chronic congestive heart failure, HFrEF -Hypertension With history of hypertensive emergency and pulmonary edema -Hyperlipidemia -CABG x 2 -CABG 2 vessels 06/13/2023 >BOGGS-LAD, R SVG-OM1, Dr. Pike -CAD with history of PCI Most recent RCA Plan/Discussion Ischemic cardiomyopathy longstanding HFrEF Left bundle branch block -Multiple attempts on revascularization -On GDMT Went not critically ill -Depending on patient recovery from current event would benefit from biventricular AICD -EF remains poor despite optimal medical therapy Revascularization therefore patient would benefit from biventricular AICD, the Patient is agreeable to do this -The timing depends on the fact that he just got admitted for bilateral pneumonia, would allow the patient to be discharged and will bring him back in as an outpatient to do this, to avoid any infectious complications given his current hospitalization Pneumonia Extubated to nasal cannula: -Management per critical care colleagues at this point in time Coronary artery disease, history of revascularization, multiple coronary risk factors -Management per cardiology colleagues -Complex Medical Decision Making -Total time ([id number]) including counseling and coordination of care: regarding diagnoses, medications and diagnostic plan. Of this time >50% of my time was spent counseling and care coordination. All questions were answered to the best of my ability. Adverse effects of medications prescribed were discussed. Patient verbalized understanding. E M visit today is associated with current or anticipated ongoing medical care services related to a patient's single, serious condition or a complex condition. -Risks, benefits, alternatives of above procedure(s) were discussed with patient (risks are inclusive of, but not exclusive to, , stroke, tamponade, aortic dissection, infection, bleeding, pain), whom understands and therefore agrees to move forward with aforementioned procedure(s) -Adherence to medications, cardiac diet, and exercise has been discussed with the patient. -Avoiding tobacco and alcohol is always recommended for cardiac protection and risk factor modification Thanks again and please do not hesitate to contact me for discussion of the patient! Leona Meneses M.D. Cardiac Electrophysiology [facility] O: [phone] F: [phone] History of present illness -Records reviewed, and patient examined. -12/28/2023 initiation of electrophysiology care -Patient admitted with shortness of breath, malaise, told his he was not feeling well, drove himself to the ER, workup demonstrated BNP of 546, sodium 124, lactic acid 4, pH 7.1, alcohol level 6, CTA chest without PE, bilateral consolidations, Legionella and strep pneumococcus negative, was in respiratory distress refractory to BiPAP subsequently intubated and treated for flash pulmonary edema and cardiogenic shock -EP consulted for eventual ICD implantation (copy forward, Aslam) Exercise: 4 METS, Y/N Review of systems: 10 organ systems (including: constitutional, HEENT, cardiovascular, respiratory, gastrointestinal, neurologic, endocrine, musculoskeletal, and hematologic) were reviewed with the patient and negative except for the pertinent positives mentioned in the history of present illness. EP related Family history: Negative for Brugada syndrome, Long QT, Short QT, Arrhythmogenic RV dysplasia, Catecholamine-induced Polymorphic VT, Sudden Cardiac , Sudden Infant Syndrome, Hypertrophic Obstructive Cardiomyopathy Cardiac Testing (Examined and Interpreted by Dr. Leona Meneses): (copy forward, Aslam) Electrocardiogram:(copy forward, Aslam) -12/26/2023 sinus tachycardia with left bundle QRS 156 -11/22/2023 sinus tachycardia 107 left bundle 160 -08/29/2023 sinus tachycardia 104 QRS 128 left bundle -08/23/2023 sinus tachycardia 116 left bundle QRS 150 Echocardiogram:(copy forward, Aslam) -12/27/2023 TTE, LVEF 25-30 -09/02/2023 EF 34% -07/27/2023 EF 34 -Prior EF 30-35 on 09/2023 with global severe hypokinesis Angiogram:(copy forward, Aslam) -[facility] status post PCI 2005, 06/2022, or 12/24/2022, 07/26/2025 -07/26/2023 PCI RCA DIMPLE, shockwave on Impella support by Dr. Malachi Fitzgerald, Impella removed, discharged in stable condition -Left main 70% -LAD mid [employer]AD [employer] -Left circumflex ostial circumflex 80% *BOGGS to LAD patent *SVG to OM patent *IVUS of RCA shows calcific mid RCA with severe ISR >PCI RCA 2.5 x 18 Nick DIMPLE Stress Testing:(copy forward, Aslam) -Nothing on file Radiology:(copy forward, Aslam) -Nothing germane to the cardiovascular system Physical Examination: General appearance: Alert, no apparent distress, calm HEENT: Pupils equal and react to light, EOMI, no scleral icterus, no photophobia, no exudate, no conjunctivitis, Hearing grossly normal, oral mucosa pink and moist Neck: Nontender, no JVP or JVD Respiratory: No evidence for respiratory distress Cardiovascular: Rate, rhythm: Regular Abdomen: No ascites guarding peritonitis rigidity Extremities: No stigmata heart failure, or DVT or PE Strength: Grossly intact upper and lower extremities Neurological: Alert, oriented to person, oriented to place, oriented to time Dermatologic exam: Normal color, warm/dry, no cyanosis Psychiatric: No suicidal ideation, no homicidal ideation, no flight of thought -- ALLERGIES/HOME MEDS -- ALLERGIES: No Known Allergies (UNKNOWN - Allergy) HOME MEDICATIONS: Aspirin EC Tab (Ecotrin Tab) 81 MG PO DAILY Atorvastatin Tab (Lipitor Tab) 40 MG PO BEDTIME Celecoxib Cap (CeleBREX Cap) 200 MG PO DAILY Clopidogrel Tab (Plavix Tab) 75 MG PO DAILY Furosemide Tab (Lasix Tab) 20 MG PO DAILY Lexapro tab (escitalopram oxalate) 20 MG PO DAILY Metoprolol Tartrate Tab (Lopressor Tab) 12.5 MG PO BID Potassium Chlor Tab.ER (K Dur Tab) 20 MEQ PO DAILY Pregabalin Cap (Lyrica Cap) 50 MG PO BID Thiamine Tab (Vitamin B-1 Tab) 100 MG PO DAILY Ticagrelor Tab (Brilinta Tab) 90 MG PO Q12HR traZODone Tab (Desyrel Tab) 100 MG PO BEDTIME -- OBJECTIVE -- VITALS (12/26 16:30 - 12/27 16:30): Temperature F: 99.6 Temperature C: 37.4 (37.1 - 38.0) Temperature source: CORE Pulse Rate 76 (74 - 122) Respiratory rate: 12 (9 - 33) Blood pressure: 94/54 (78/47 - 158/96) Blood pressure source: Monitor I/Os (12/26 07:00 - 12/27 07:00): Net -518.60 Intake 1,531.40 Output 2,050 -- DATA -- MEDICATIONS FUROSEMIDE 40 MG IV BID@0900,1700 ACETAMINOPHEN 650 MG PO Q4H PRN MUPIROCIN 1 APPLIC NASAL BID ENOXAPARIN SODIUM 40 MG SUBQ DAILY cefTRIAXone with/in WATER FOR INJECTION,STERILE 1000 MG IV BEDTIME IPRATROPIUM/ALBUTEROL SULFATE 3 ML NEB RTQ4H PRN AZITHROMYCIN with/in SODIUM CHLORIDE 0.9% 500 MG IV BEDTIME PANTOPRAZOLE with/in SODIUM CHLORIDE 0.9% 40 MG IV BEDTIME clopidogreL 75 MG PO DAILY ASPIRIN 81 MG PO DAILY ATORVASTATIN CALCIUM 40 MG PO DAILY METOPROLOL TARTRATE 12.5 MG PO Q12HR dexmedeTOMIDine in 0.9 % NaCL 400 MCG IV TITRATE LABS ARTERIAL BLOOD GAS (12/28/23 13:33) ARTERIAL BLOOD GAS PH 7.462 H ARTERIAL BLOOD GAS PCO2 42.9 ARTERIAL BLOOD GAS PO2 178.7 H BICARBONATE TOTAL HCO3 30.0 H BASE EXCESS 5.6 H ABG O2 SATURATION 99.0 H ABG TYPE Arterial ARTERIAL FIO2 68.0 PaO2/FiO2 262.70 ABG L/M 12.0 ABG VENT MODE High Flow ALLENS TEST Yes TOTAL HGB 12.7 L OXYHEMOGLOBIN 98.4 H CARBOXYHEMOGLOBIN 0.3 METHEMOGLOBIN <0.8 TCO2 ARTERIAL 31.3 H ARTERIAL BLOOD GAS (12/28/23 04:34) ARTERIAL BLOOD GAS PH 7.443 ARTERIAL BLOOD GAS PCO2 35.8 ARTERIAL BLOOD GAS PO2 264.4 H BICARBONATE TOTAL HCO3 23.9 BASE EXCESS 0.2 ABG O2 SATURATION 99.9 H ABG TYPE Arterial ARTERIAL FIO2 60.0 PaO2/FiO2 440.60 ABG VENT MODE AC ABG VENT RESP RATE 24 ABG TIDAL VOLUME 400 ABG PEEP 10.0 ABG SITE Left Radial ALLENS TEST Yes TOTAL HGB 13.2 OXYHEMOGLOBIN 99.3 H CARBOXYHEMOGLOBIN 0.3 D TCO2 ARTERIAL 25.0 H CBC W/AUTO DIFF (12/28/23 03:39) WHITE BLOOD CELL 8.1 RED BLOOD CELL 4.13 L HEMOGLOBIN 12.6L L HEMATOCRIT 38.4L L MEAN CELL VOLUME 93 MEAN CELL HGB 30.5 MEAN CELL HGB CONCENTRATION 32.8 RED CELL DISTRIBUTION WIDTH 16.3 H PLATELET COUNT 207 MEAN PLATELET VOLUME 10.1 NEUTROPHIL % 78.9 H IMMATURE GRANULOCYTE % 0.6 LYMPHOCYTE % 9.8 L MONOCYTE % 9.6 EOSINOPHIL % 0.6 BASOPHIL % 0.5 NUCLEATED RBC % 0.0 NEUTROPHIL # 6.41 IMMATURE GRANULOCYTE # 0.050 LYMPHOCYTE # 0.80 L MONOCYTE # 0.78 EOSINOPHIL # 0.05 BASOPHIL # 0.04 NUCLEATED RBC # 0.000 PHOS (12/28/23 03:39) PHOSPHOROUS 2.4 MAG (12/28/23 03:39) MAGNESIUM 1.7 BASIC METABOLIC PANEL (12/28/23 03:39) SODIUM 136 POTASSIUM 4.3 CHLORIDE 99 CARBON DIOXIDE 31 ANION GAP 10.3 D GLUCOSE 121H H BLOOD UREA NITROGEN 12 GLOMERULAR FILTRATION RATE >=60 max estimate CREATININE 1.2 BUN/CREATININE RATIO 10.0 L CALCIUM 8.4 L GLU BED (12/27/23 17:36) GLUBED 88 Signed in PatientKeeper by Tana Meneses MD on 12/29/23 at 09:14 at 0914 ATTENTION *EDITS and/or ADDENDA must be made in Patient Keeper for this note. * * Edits and ammendments created in [facility] are not visible * * in Patient Keeper or the legal medical record ([facility]). * RPT #: [id number] END OF REPORT [facility] 2023-12-28 11:32:00 THIS REPORT HAS BEEN APPENDED [facility] ([facility]) Intensive Care Progress Note REPORT #: [id number] REPORT STATUS: Signed DATE: 12/28/23 TIME: 1132 PATIENT: KOTA MONTES UNIT #: [id number] ROOM #: [id number] BED: A : 61 AGE: 63 SEX: M ATTEND: Pete Vang MD ADM AUTHOR: Bee Schmidt MD ATTENTION *EDITS and/or ADDENDA must be made in Patient Keeper for this note. * * Edits and ammendments created in [employer] are not visible * * in Patient Keeper or the legal medical record ([facility]). * -- ASSESSMENT AND PLAN -- GENERAL ASSESSMENT: [facility] Critical Care Note Assessment Acute Hypoxic/Hypercapnic Respiratory Failure Acute on chronic HFrEF Exacerbation Acute Flash Pulmonary Edema Hypertensive emergency Cardiogenic shock Bilateral lower lobe pneumonia HTN Hyponatremia SAMMIE Hyperglycemia Anxiety HLD CAD w/ PCI stent x1 CABG x2 Tobacco use Plan: Neuro- On low-dose Precedex, mental status appropriate CV- Hemodynamics reviewed, acceptable currently TTE with EF 25-30% and severe global hypokinesis Pressors weaned off, cardiology following Diuretics, beta-miguelangel, DAPT Pulm- Monitor pulse oximetry Goal SPO2 greater than 90% CXR: Diffuse bilateral airspace opacifications with mid to lower and right lung predominance. Small bilateral pleural effusions CTA : No PE detected. Bilateral consolidations. Interval worsening since 08/22/2023. Intubated in ED 12/25 for respiratory Failure Improved respiratory status this a.m., ABG reviewed, placed on SBT Chest x-ray repeat with mild congestion; Improved on comparison Had low RSBI with improved mental status, plan to extubate GI- ADAT post extubation Dietary/Nutritional consult Renal- BMP reviewed Replace electrolytes as indicated Monitor UOP Avoid nephrotoxins; Renal function improving IV Lasix, nephrology following ID- Trend WBC, fever curve Empiric Abx; Ceftriaxone and azithromycin Urine strep/Legionella antigen negative Follow-up sputum cultures; WBC improved Heme- CBC reviewed No overt bleeding Trend Hgb, platelets Endo- Accuchecks Monitor for hypoglycemia Hgb A1C pending Code: FULL DVT ppx: SCDs/Lovenox PPI ppx : Protonix IV 40 mg daily Plan of care discussed with patient. Discussed with RN, RT and in multidisciplinary rounds Critically ill, continue with close monitoring in ICU Overall guarded prognosis --------- Subjective: Events noted Patient seen and examined Failed CPAP this a.m. as was agitated/became apneic On low-dose Precedex on my eval today, awake and following commands Placed on PS 10/ with 40% FiO2 HPI: Mr. Montes is a 63 yo male with pmx of HTN, HLD, CAD, CHF, CABG 06/25 who presented to ED with generalized malaise. He told his that he was not feeling well and drove himself to the hospital. Patient was in respiratory distress , refractory to Bipap and was subsequently intubated in ED. Flash pulmonary edema post intubation noted, and 80 mg IV Lasix was administered. Patient is being accepted to ICU for HLOC and continued monitoring. Past medical history: HTN, HLD, CAD, CHF PSurgHx: CABG in June 2023, PCI with stent , Multiple intubations FamHx: nc SocHx: ETOH quit June 2023, Ex smoker 2pk/40 yrs, Currently vapes Review of systems: Unable to obtain Physical Exam General: NAD Eyes: Anicteric sclerae. Mouth: MMM, ET tube Neck: Supple. CV: Irregular rate and rhythm. Normal S1 and S2. Pulm: Good effort, no wheezing or Rales appreciated. Abdomen: Soft, nontender.BS+ Extremities: No lower extremity edema. Skin: Warm, dry. Neuro: Awake, moving all extremities Psych: paris I have personally provided 45 minutes of critical care time. Time includes review of laboratory data, radiology results, discussion with consultants, family and staff and monitoring for potential decompensation. Interventions were performed as documented above. This is exclusive of time spent on separately billable procedures. -- OBJECTIVE -- VITALS (12/26 11:32 - 12/27 11:32): Temperature C: 37.5 (37.5 - 38.0) Temperature source: CORE Pulse Rate 85 (74 - 122) Respiratory rate: 11 (9 - 33) Blood pressure: 99/58 (95/51 - 158/96) Blood pressure source: Monitor I/Os (12/26 07:00 - 12/27 07:00): Net -518.60 Intake 1,531.40 Output 2,050 -- DATA -- MEDICATIONS FUROSEMIDE 40 MG IV BID@0900,1700 NITROGLYCERIN/D5W 50 MG IV X1ED MUPIROCIN 1 APPLIC NASAL BID ENOXAPARIN SODIUM 40 MG SUBQ DAILY cefTRIAXone with/in WATER FOR INJECTION,STERILE 1000 MG IV BEDTIME IPRATROPIUM/ALBUTEROL SULFATE 3 ML NEB RTQ4H PRN AZITHROMYCIN with/in SODIUM CHLORIDE 0.9% 500 MG IV BEDTIME PANTOPRAZOLE with/in SODIUM CHLORIDE 0.9% 40 MG IV BEDTIME FENTANYL CITRATE-0.9 % NACL/PF 2500 MCG IV ASDIR clopidogreL 75 MG PO DAILY ASPIRIN 81 MG PO DAILY ATORVASTATIN CALCIUM 40 MG PO DAILY METOPROLOL TARTRATE 12.5 MG PO Q12HR propofoL 1000 MG IV ASDIR dexmedeTOMIDine in 0.9 % NaCL 400 MCG IV TITRATE LABS ARTERIAL BLOOD GAS (12/28/23 04:34) ARTERIAL BLOOD GAS PH 7.443 ARTERIAL BLOOD GAS PCO2 35.8 ARTERIAL BLOOD GAS PO2 264.4 H BICARBONATE TOTAL HCO3 23.9 BASE EXCESS 0.2 ABG O2 SATURATION 99.9 H ABG TYPE Arterial ARTERIAL FIO2 60.0 PaO2/FiO2 440.60 ABG VENT MODE AC ABG VENT RESP RATE 24 ABG TIDAL VOLUME 400 ABG PEEP 10.0 ABG SITE Left Radial ALLENS TEST Yes TOTAL HGB 13.2 OXYHEMOGLOBIN 99.3 H CARBOXYHEMOGLOBIN 0.3 D TCO2 ARTERIAL 25.0 H CBC W/AUTO DIFF (12/28/23 03:39) WHITE BLOOD CELL 8.1 RED BLOOD CELL 4.13 L HEMOGLOBIN 12.6L L HEMATOCRIT 38.4L L MEAN CELL VOLUME 93 MEAN CELL HGB 30.5 MEAN CELL HGB CONCENTRATION 32.8 RED CELL DISTRIBUTION WIDTH 16.3 H PLATELET COUNT 207 MEAN PLATELET VOLUME 10.1 NEUTROPHIL % 78.9 H IMMATURE GRANULOCYTE % 0.6 LYMPHOCYTE % 9.8 L MONOCYTE % 9.6 EOSINOPHIL % 0.6 BASOPHIL % 0.5 NUCLEATED RBC % 0.0 NEUTROPHIL # 6.41 IMMATURE GRANULOCYTE # 0.050 LYMPHOCYTE # 0.80 L MONOCYTE # 0.78 EOSINOPHIL # 0.05 BASOPHIL # 0.04 NUCLEATED RBC # 0.000 PHOS (12/28/23 03:39) PHOSPHOROUS 2.4 MAG (12/28/23 03:39) MAGNESIUM 1.7 BASIC METABOLIC PANEL (12/28/23 03:39) SODIUM 136 POTASSIUM 4.3 CHLORIDE 99 CARBON DIOXIDE 31 ANION GAP 10.3 D GLUCOSE 121H H BLOOD UREA NITROGEN 12 GLOMERULAR FILTRATION RATE >=60 max estimate CREATININE 1.2 BUN/CREATININE RATIO 10.0 L CALCIUM 8.4 L GLU BED (12/27/23 17:36) GLUBED 88 BASIC METABOLIC PANEL (12/27/23 15:26) SODIUM 135L L POTASSIUM 4.1D D CHLORIDE 98 CARBON DIOXIDE 26 ANION GAP 15.1 D GLUCOSE 100 BLOOD UREA NITROGEN 14 GLOMERULAR FILTRATION RATE 57 L CREATININE 1.4H H BUN/CREATININE RATIO 10.0 L CALCIUM 8.4 L URIC ACID (12/27/23 15:26) URIC ACID 9.5 H CREATU (12/27/23 14:56) UR CREATININE RANDOM 122 UR NA RANDOM (12/27/23 14:56) UR SODIUM RANDOM < 10 UR CL RANDOM (12/27/23 14:56) UR CHLORIDE RANDOM 33 GLU BED (12/27/23 12:01) GLUBED 183 H -- ATTESTATION -- TIME SPENT ON PATIENT CARE: - Direct - Counseling - Coordination of Care - Critical Care: time spent apart from any procedure 45 minutes Signed in PatientKeeper by BEE SCHMIDT MD on 12/28/23 at 11:46 at 1146 SECTION 2 ADDENDUM 1: 12/28/231944 PTKEEPER Seen and evaluated multiple times through the day Patient extubated to 4 L nasal cannula O2 Eventually required 2 L high flow briefly but weaned back down to 4 L O2 Patient not cooperative with nursing staff Hypotensive intermittently, hold Lasix/antihypertensives Has low EF, further management per cardiology Will continue to monitor closely in ICU Additional critical care (separate from procedures): 40 min at 1945 ATTENTION *EDITS and/or ADDENDA must be made in Patient Keeper for this note. * * Edits and ammendments created in [employer] are not visible * * in Patient Keeper or the legal medical record ([facility]). * [facility] #: [id number] END OF REPORT [facility] 2023-12-28 09:29:00 [facility] ([facility]) Nephrology Progress Note REPORT #: [id number] REPORT STATUS: Signed DATE: 12/28/23 TIME: 928 PATIENT: KOTA MONTES UNIT #: [id number] ROOM #: [id number] BED: A : 61 AGE: 63 SEX: M ATTEND: Lorraine Delgado MD ADM AUTHOR: Thu Mosqueda MD ATTENTION *EDITS and/or ADDENDA must be made in Patient Keeper for this note. * * Edits and ammendments created in [employer] are not visible * * in Patient Keeper or the legal medical record ([facility]). * -- ASSESSMENT AND PLAN -- GENERAL ASSESSMENT: 1. SAMMIE likely related hemodynamic factors/ATN/ARTURO; ddx cardiroeanl - Baseline Cr 2. Volume status: euvolemic or close to dry weight 3. Acid-base: compensated metabolic acidosis 4. Electrolytes: hyponatremia, hyperkalemia 5. Hypotension on levophed 6. CAD sp cabg - SCr is improved and at 1.2 today - On lasix 40mg IV BID and will continue today - CXR looks better. However, remains intubated - Continue singh for now - Repeat BMP, K should improve. - K was high on admit but improved now - On Abx for possible pneumonia Will follow Thank you kindly for allowing me to participate in taking care of this patient. -- SUBJECTIVE -- PATIENT NARRATIVE: Is intubated. NorEpi off for now -- OBJECTIVE -- VITALS (12/26 09:29 - 12/27 09:29): Temperature C: 37.9 (37.3 - 37.9) Temperature source: CORE Pulse Rate 86 (79 - 122) Respiratory rate: 19 (17 - 33) Blood pressure: 116/65 (95/51 - 158/96) Blood pressure source: Monitor I/Os (12/26 07:00 - 12/27 07:00): Net -518.60 Intake 1,531.40 Output 2,050 -EXAM- OTHER: GeNeRAL: NaD ENt; No JVd, intubated luNgS: Coarse BS BL CV; Rrr WITHOUT RUB AbDOMEN: SOFT?NT/Nd WITH Nabs Ext: + EdEmA Le bILATERALLY Skin: no rash Neuro sedated -- DATA -- MEDICATIONS AZITHROMYCIN with/in SODIUM CHLORIDE 0.9% 500 MG IV BEDTIME PANTOPRAZOLE with/in SODIUM CHLORIDE 0.9% 40 MG IV BEDTIME FUROSEMIDE 40 MG IV BID@0900,1700 NOREPINEPHRINE BIT/0.9 % NACL 8 MG IV ASDIR NITROGLYCERIN/D5W 50 MG IV X1ED FENTANYL CITRATE-0.9 % NACL/PF 2500 MCG IV ASDIR MUPIROCIN 1 APPLIC NASAL BID cefTRIAXone with/in WATER FOR INJECTION,STERILE 1000 MG IV BEDTIME IPRATROPIUM/ALBUTEROL SULFATE 3 ML NEB RTQ4H PRN propofoL 1000 MG IV ASDIR dexmedeTOMIDine in 0.9 % NaCL 400 MCG IV TITRATE LABS ARTERIAL BLOOD GAS (12/28/23 04:34) ARTERIAL BLOOD GAS PH 7.443 ARTERIAL BLOOD GAS PCO2 35.8 ARTERIAL BLOOD GAS PO2 264.4 H BICARBONATE TOTAL HCO3 23.9 BASE EXCESS 0.2 ABG O2 SATURATION 99.9 H ABG TYPE Arterial ARTERIAL FIO2 60.0 PaO2/FiO2 440.60 ABG VENT MODE AC ABG VENT RESP RATE 24 ABG TIDAL VOLUME 400 ABG PEEP 10.0 ABG SITE Left Radial ALLENS TEST Yes TOTAL HGB 13.2 OXYHEMOGLOBIN 99.3 H CARBOXYHEMOGLOBIN 0.3 D TCO2 ARTERIAL 25.0 H CBC W/AUTO DIFF (12/28/23 03:39) WHITE BLOOD CELL 8.1 RED BLOOD CELL 4.13 L HEMOGLOBIN 12.6L L HEMATOCRIT 38.4L L MEAN CELL VOLUME 93 MEAN CELL HGB 30.5 MEAN CELL HGB CONCENTRATION 32.8 RED CELL DISTRIBUTION WIDTH 16.3 H PLATELET COUNT 207 MEAN PLATELET VOLUME 10.1 NEUTROPHIL % 78.9 H IMMATURE GRANULOCYTE % 0.6 LYMPHOCYTE % 9.8 L MONOCYTE % 9.6 EOSINOPHIL % 0.6 BASOPHIL % 0.5 NUCLEATED RBC % 0.0 NEUTROPHIL # 6.41 IMMATURE GRANULOCYTE # 0.050 LYMPHOCYTE # 0.80 L MONOCYTE # 0.78 EOSINOPHIL # 0.05 BASOPHIL # 0.04 NUCLEATED RBC # 0.000 PHOS (12/28/23 03:39) PHOSPHOROUS 2.4 MAG (12/28/23 03:39) MAGNESIUM 1.7 BASIC METABOLIC PANEL (12/28/23 03:39) SODIUM 136 POTASSIUM 4.3 CHLORIDE 99 CARBON DIOXIDE 31 ANION GAP 10.3 D GLUCOSE 121H H BLOOD UREA NITROGEN 12 GLOMERULAR FILTRATION RATE >=60 max estimate CREATININE 1.2 BUN/CREATININE RATIO 10.0 L CALCIUM 8.4 L GLU BED (12/27/23 17:36) GLUBED 88 BASIC METABOLIC PANEL (12/27/23 15:26) SODIUM 135L L POTASSIUM 4.1D D CHLORIDE 98 CARBON DIOXIDE 26 ANION GAP 15.1 D GLUCOSE 100 BLOOD UREA NITROGEN 14 GLOMERULAR FILTRATION RATE 57 L CREATININE 1.4H H BUN/CREATININE RATIO 10.0 L CALCIUM 8.4 L URIC ACID (12/27/23 15:26) URIC ACID 9.5 H CREATU (12/27/23 14:56) UR CREATININE RANDOM 122 UR NA RANDOM (12/27/23 14:56) UR SODIUM RANDOM < 10 UR CL RANDOM (12/27/23 14:56) UR CHLORIDE RANDOM 33 GLU BED (12/27/23 12:01) GLUBED 183 H Signed in PatientKeeper by Thu Mosqueda MD on 12/28/23 at 09:32 at 0932 ATTENTION *EDITS and/or ADDENDA must be made in Patient Keeper for this note. * * Edits and ammendments created in [facility] are not visible * * in Patient Keeper or the legal medical record (HPF). * [facility] #: [id number] END OF REPORT [facility] 2023-12-28 08:55:00 [facility] ([facility]) Cardiology Progress Notes REPORT #: [id number] REPORT STATUS: Signed DATE: 12/28/23 TIME: 854 PATIENT: KOTA MONTES UNIT #: [id number] ROOM #: [id number] BED: A : 61 AGE: 63 SEX: M ATTEND: Pete Vang MD ADM AUTHOR: Vannesa Saul CURRICULUM CONSULTANT ATTENTION *EDITS and/or ADDENDA must be made in Patient Keeper for this note. * * Edits and ammendments created in [employer] are not visible * * in Patient Keeper or the legal medical record (HPF). * -- CO-SIGNATURE -- COMMENTS: Agree with below. Just extubated. Sp many PCIs in the past, 2v ACB 06/25 followed by PCI again. Borderline hypotension so may need midodrine. Signed in PatientKeeper by SERGE GIORDANO MD on 12/28/23 at 16:30 -- ASSESSMENT AND PLAN -- ADDITIONAL COMMENTS: #Acute decompensated heart failure - TTE LVEF 25-30%(12/25), previously 30-35% (09/2023); severe global hypokinesis of the left ventricle. - IV Diuresis: Continue lasix 40mg IV BID - strict I/Os - maintain negative fluid balance, goal negative 2 L/day - 2 gm Na diet, 1500 mL fluid restriction -Start on BB(12/27) -Lovenox sc for DVT prophy -Rx on DC: ASA, bumex 1mg QD, Lopressor 12,5mg BID, ticagrelor - AICD/ ASSOCIATE SOFTWARE ENGINEER necessary given no improvement in LVEF - EP, Aslam, consulted for above - Monitor clinically as may require IABP/MCS if further deteriorates #CAD, sp ACB -[facility]: s/p PCI 2005, 06/2022, 12/24/2022, 12/24/2022, 07/27/23 CABG x 2V 06/13/23) Dr Eduardo -Start on asa/plavix/lipitor/BB(12/27) -Lovenox sc for DVT prophy -Cardiac enzymes: negative # HTN: -Hypotensive on admission-off levophed -BP stable -Start on Lopressor 12.5 mg bid (hold for SBP<100) #Acute Hypoxic/Hypercapnic Respiratory Failure Currently Intubated CTA : No PE detected. Bilateral consolidations. Interval worsening since 08/22/2023 Mgmt per pulm # HL check Flp Resume home lipitor 40 mg qd(12/27) # mild CKD nephro following Cr stable at 1.2 #Anxiety -- SUBJECTIVE -- PATIENT NARRATIVE: Still intubated, awake , follows commands -- OBJECTIVE -- VITALS (12/26 08:56 - 12/27 08:56): Temperature C: 37.9 (37.3 - 37.9) Temperature source: CORE Pulse Rate 86 (79 - 122) Respiratory rate: 19 (17 - 33) Blood pressure: 116/65 (95/51 - 158/96) Blood pressure source: Monitor I/Os (12/26 07:00 - 12/27 07:00): Net -518.60 Intake 1,531.40 Output 2,050 -EXAM- GENERAL: Well developed, well nourished, in no apparent distress. CHEST: Grossly normal appearance. LUNGS: Clear bilaterally with normal respiratory effort. HEART: Regular rate and rhythm, normal S1, S2, no murmurs, no rubs, no gallops, no clicks. EXTREMITIES: No clubbing, no cyanosis, no edema. PULSES: Pulses normal in all extremities. -- DATA -- MEDICATIONS AZITHROMYCIN with/in SODIUM CHLORIDE 0.9% 500 MG IV BEDTIME PANTOPRAZOLE with/in SODIUM CHLORIDE 0.9% 40 MG IV BEDTIME FUROSEMIDE 40 MG IV BID@0900,1700 NOREPINEPHRINE BIT/0.9 % NACL 8 MG IV ASDIR NITROGLYCERIN/D5W 50 MG IV X1ED FENTANYL CITRATE-0.9 % NACL/PF 2500 MCG IV ASDIR MUPIROCIN 1 APPLIC NASAL BID cefTRIAXone with/in WATER FOR INJECTION,STERILE 1000 MG IV BEDTIME IPRATROPIUM/ALBUTEROL SULFATE 3 ML NEB RTQ4H PRN propofoL 1000 MG IV ASDIR dexmedeTOMIDine in 0.9 % NaCL 400 MCG IV TITRATE LABS ARTERIAL BLOOD GAS (12/28/23 04:34) ARTERIAL BLOOD GAS PH 7.443 ARTERIAL BLOOD GAS PCO2 35.8 ARTERIAL BLOOD GAS PO2 264.4 H BICARBONATE TOTAL HCO3 23.9 BASE EXCESS 0.2 ABG O2 SATURATION 99.9 H ABG TYPE Arterial ARTERIAL FIO2 60.0 PaO2/FiO2 440.60 ABG VENT MODE AC ABG VENT RESP RATE 24 ABG TIDAL VOLUME 400 ABG PEEP 10.0 ABG SITE Left Radial ALLENS TEST Yes TOTAL HGB 13.2 OXYHEMOGLOBIN 99.3 H CARBOXYHEMOGLOBIN 0.3 D TCO2 ARTERIAL 25.0 H MAG (12/28/23 03:39) MAGNESIUM 1.7 CBC W/AUTO DIFF (12/28/23 03:39) WHITE BLOOD CELL 8.1 RED BLOOD CELL 4.13 L HEMOGLOBIN 12.6L L HEMATOCRIT 38.4L L MEAN CELL VOLUME 93 MEAN CELL HGB 30.5 MEAN CELL HGB CONCENTRATION 32.8 RED CELL DISTRIBUTION WIDTH 16.3 H PLATELET COUNT 207 MEAN PLATELET VOLUME 10.1 NEUTROPHIL % 78.9 H IMMATURE GRANULOCYTE % 0.6 LYMPHOCYTE % 9.8 L MONOCYTE % 9.6 EOSINOPHIL % 0.6 BASOPHIL % 0.5 NUCLEATED RBC % 0.0 NEUTROPHIL # 6.41 IMMATURE GRANULOCYTE # 0.050 LYMPHOCYTE # 0.80 L MONOCYTE # 0.78 EOSINOPHIL # 0.05 BASOPHIL # 0.04 NUCLEATED RBC # 0.000 PHOS (12/28/23 03:39) PHOSPHOROUS 2.4 BASIC METABOLIC PANEL (12/28/23 03:39) SODIUM 136 POTASSIUM 4.3 CHLORIDE 99 CARBON DIOXIDE 31 ANION GAP 10.3 D GLUCOSE 121H H BLOOD UREA NITROGEN 12 GLOMERULAR FILTRATION RATE >=60 max estimate CREATININE 1.2 BUN/CREATININE RATIO 10.0 L CALCIUM 8.4 L GLU BED (12/27/23 17:36) GLUBED 88 BASIC METABOLIC PANEL (12/27/23 15:26) SODIUM 135L L POTASSIUM 4.1D D CHLORIDE 98 CARBON DIOXIDE 26 ANION GAP 15.1 D GLUCOSE 100 BLOOD UREA NITROGEN 14 GLOMERULAR FILTRATION RATE 57 L CREATININE 1.4H H BUN/CREATININE RATIO 10.0 L CALCIUM 8.4 L URIC ACID (12/27/23 15:26) URIC ACID 9.5 H CREATU (12/27/23 14:56) UR CREATININE RANDOM 122 UR NA RANDOM (12/27/23 14:56) UR SODIUM RANDOM < 10 UR CL RANDOM (12/27/23 14:56) UR CHLORIDE RANDOM 33 GLU BED (12/27/23 12:01) GLUBED 183 H ARTERIAL BLOOD GAS (12/27/23 09:14) ARTERIAL BLOOD GAS PH 7.313 L ARTERIAL BLOOD GAS PCO2 50.6 H ARTERIAL BLOOD GAS PO2 226.1 H BICARBONATE TOTAL HCO3 25.1 BASE EXCESS -1.8 L ABG O2 SATURATION 99.2 H ABG TYPE Arterial ARTERIAL FIO2 80.0 PaO2/FiO2 282.60 ABG VENT MODE AC ABG VENT RESP RATE 20 ABG TIDAL VOLUME 400 ABG PEEP 12.0 ABG SITE Right Radial ALLENS TEST Yes TOTAL HGB 14.7 OXYHEMOGLOBIN 99.0 H CARBOXYHEMOGLOBIN 0.1 D TCO2 ARTERIAL 26.6 H Signed in PatientKeeper by Vannesa Saul NP on 12/28/23 at 11:35 Cosigned by SERGE GIORDANO MD on 12/28/23 at 16:30 at 1630 at 1630 ATTENTION *EDITS and/or ADDENDA must be made in Patient Keeper for this note. * * Edits and ammendments created in [facility] are not visible * * in Patient Keeper or the legal medical record ([facility]). * [facility] #: [id number] END OF REPORT [facility] 2023-12-27 18:00:00 [facility] ([facility]) Cardiology Consultation REPORT #: [id number] REPORT STATUS: Signed DATE: 12/27/23 TIME: 1800 PATIENT: KOTA MONTES UNIT #: [id number] ROOM #: [id number] BED: A : 61 AGE: 63 SEX: M ATTEND: Lorraine Delgado MD ADM AUTHOR: Mariam Charlton MD ATTENTION *EDITS and/or ADDENDA must be made in Patient Keeper for this note. * * Edits and ammendments created in [employer] are not visible * * in Patient Keeper or the legal medical record (HPF). * -- ASSESSMENT AND PLAN -- GENERAL ASSESSMENT: Problem List: Acute Hypoxic/Hypercapnic Respiratory Failure Hypertensive emergency Acute CHF Exacerbation Acute Flash Pulmonary Edema Hypotension Cardiogenic shock Lactic Acidosis Tachycardia HTN Hyponatremia Hyperglycemia Anxiety HLD CAD w/ PCI CABG x2 A/P: #Acute decompensated heart failure #Hypertensive emergency #Cardiogenic shock - Etiology ischemic for HFrEF - etiology of exacerbation is eHTN - Volume overloaded on exam with edema and + JVD on presentation with flash pulmonary edema necessitating intubation - BNP elevated - EKG with Sinus tachycardia with prolong QTc as well as QRS widening (unchanged from previous) - TTE LVEF 25-30%, previously 30-35% (09/2023); severe global hypokinesis of the left ventricle. - [facility]: s/p PCI 2005, 06/2022, 12/24/2022, 12/24/2022, 07/27/23 CABG x 2V 06/13/23) Plan: Acute managment: - IV Diuresis: lasix 40mg IV BID, may require gtt - strict I/Os - maintain negative fluid balance, goal negative 2 L/day - 2 gm Na diet, 1500 mL fluid restriction - daily weights - Home GDMT: unavailable - Last Rx on DC: ASA, bumex 1mg QD, Lopressor 12,5mg BID, ticagrelor - AICD/ ASSOCIATE SOFTWARE ENGINEER necessary given no improvement in LVEF - EP, Aslam, consulted for above - Now hypotensive and on levophed gtt - Monitor clinically as may require IABP/MCS if further deteriorates - LA improving #Emergent HTN, resolved # Hypotension -blood pressure elevated (SBP>180s/DBP >120) -end organ injur: CHF -Cardiac enzymes: negative -CXR: pulmonary edema - Now hypotensive and on levophed gtt - Monitor clinically as may require IABP/MCS if further deteriorates #CAD - ASA statin -- HISTORY -- REASON FOR CONSULT: Acute CHF Exacerbation HPI: INtubated; HPI from EMR and past records 63-year-old male with past medical history of hypertension, dyslipidemia, coronary artery disease, congestive heart failure, s/p CABG 06/25 presented to ED with complaints of shortness of breath, generalized malaise, he told his that he was not feeling well and drove himself to the hospital. ER workup; BNP 546, hyponatremia sodium 124, lactic acid 4, pH 7.1, alcohol level 6, Chest x-ray: CHF, CTA chest: No PE detected. Bilateral consolidations. Legionella and strep pneumo: Negative, Upon ER presentation he was in respiratory distress, refractory to Bipap and was subsequently intubated in ED. Flash pulmonary edema post intubation noted, and 80 mg IV Lasix was administered. Cardiology was consulted and patient was admitted to ICU for further management. PAST MEDICAL HISTORY: Hypertension, dyslipidemia, coronary artery disease, congestive heart failure PAST SURGICAL HISTORY: CABG 06/25, PCI FAMILY HISTORY: Noncontributory -SOCIAL HISTORY- -TOBACCO USE- DETAILS/COMMENTS: Ex smoker 2pk/40 yrs -VAPING/INHALED SOLVENTS- DETAILS/COMMENTS: denied previously -ALCOHOL USE- DETAILS/COMMENTS: social -DRUG USE- DETAILS/COMMENTS: denied previously -- ALLERGIES/HOME MEDS -- ALLERGIES: No Known Allergies (UNKNOWN - Allergy) -- SUBJECTIVE -- UNABLE TO OBTAIN REVIEW OF SYSTEMS -- OBJECTIVE -- -EXAM- OTHER: General: Intubated on mechanical ventilation Eyes: Lids normal. Mouth: ET tube + Neck: Supple, No masses. Chest: Grossly normal appearance. Lungs: Clear bilaterally with normal respiratory effort. Heart: Regular rate and rhythm, normal S1, S2. Abdomen Soft, non-tender, no masses noted. Musculoskeletal: No deformity. Extremities: No clubbing, no cyanosis, no edema. Neurological: Unable to assess Signed in PatientKeeper by MARIAM CHARLTON MD on 12/27/23 at 18:12 at 1812 ATTENTION *EDITS and/or ADDENDA must be made in Patient Keeper for this note. * * Edits and ammendments created in [employer] are not visible * * in Patient Keeper or the legal medical record (HPF). * [facility] #: [id number] END OF REPORT [facility] 2023-12-27 14:50:00 [facility] ([facility]) Nephrology Consultation REPORT #: [id number] REPORT STATUS: Signed DATE: 12/27/23 TIME: 1449 PATIENT: KOTA MONTES UNIT #: [id number] ROOM #: [id number] BED: A : 61 AGE: 63 SEX: M ATTEND: Lorraine Delgado MD ADM AUTHOR: Omar Coronado MD ATTENTION *EDITS and/or ADDENDA must be made in Patient Keeper for this note. * * Edits and ammendments created in [employer] are not visible * * in Patient Keeper or the legal medical record (HPF). * -- ASSESSMENT AND PLAN -- GENERAL ASSESSMENT: 1. SAMMIE likely related to volume depletion and/or hemodynamic factors/ATN/ARTURO; ddx cardiroeanl - Baseline Cr 2. Volume status: euvolemic or close to dry weight 3. Acid-base: compensated metabolic acidosis 4. Electrolytes: hyponatremia, hyperkalemia 5. Hypotension on levophed 6. CAD sp cabg - Cont with lasix IV - Check urine analysis with urine electrolytes with relevant renal serologies as deemed appropriate. -Cont with singh. - Repeat BMP, K should improve. - Obtain Renal US for further evaluation if Cr not better. - Avoid potential nephrotoxins including NSAIDs, iodine IV contrast and hold any ACEi or ARB at this time - Keep MAP above 65 at all times - Dose all medications for Crcl less than 30 cc/min. - Continue supportive care. - Monitor I/O and renal parameters to include electrolytes, volume status and acid-base closely. - Further plans as deemed appropriate. -Will continue to follow with you. - No acute indication for HD. D/W pt's family and RN Thank you kindly for allowing me to participate in taking care of this patient. -- HISTORY -- REASON FOR CONSULT: SAMMIE/Hypontremia HPI: 63-year-old male with past medical history of hypertension, dyslipidemia, coronary artery disease, congestive heart failure, s/p CABG 06/25 presented to ED with complaints of shortness of breath, generalized malaise and found to have hyponatremia with sodium 124, lactic acid 4, pH 7.1, alcohol level 6, Chest x-ray: CHF, CTA chest: No PE detected. Pt was subsequently intubated.. Flash pulmonary edema post intubation noted. IV lasix was started. Of note also have hyperkalemia. Cr also elevated. Renal is consulted. Info obtained from ERM and family at [facility]. On levophed currently with good UOP. PAST MEDICAL HISTORY: Hypertension, dyslipidemia, coronary artery disease, congestive heart failure PAST SURGICAL HISTORY: CABG 06/25, PCI FAMILY HISTORY: Noncontributory -SOCIAL HISTORY- -TOBACCO USE- DETAILS/COMMENTS: Ex smoker 2pk/40 yrs -VAPING/INHALED SOLVENTS- DETAILS/COMMENTS: Noncontributory -ALCOHOL USE- DETAILS/COMMENTS: Drinks socially -DRUG USE- DETAILS/COMMENTS: Uses Vapes -- ALLERGIES/HOME MEDS -- ALLERGIES: No Known Allergies (UNKNOWN - Allergy) HOME MEDICATIONS: Aspirin EC Tab (Ecotrin Tab) 81 MG PO DAILY Atorvastatin Tab (Lipitor Tab) 40 MG PO BEDTIME Celecoxib Cap (CeleBREX Cap) 200 MG PO DAILY Clopidogrel Tab (Plavix Tab) 75 MG PO DAILY Furosemide Tab (Lasix Tab) 20 MG PO DAILY Lexapro tab (escitalopram oxalate) 20 MG PO DAILY Metoprolol Tartrate Tab (Lopressor Tab) 12.5 MG PO BID Potassium Chlor Tab.ER (K Dur Tab) 20 MEQ PO DAILY Pregabalin Cap (Lyrica Cap) 50 MG PO BID Thiamine Tab (Vitamin B-1 Tab) 100 MG PO DAILY Ticagrelor Tab (Brilinta Tab) 90 MG PO Q12HR traZODone Tab (Desyrel Tab) 100 MG PO BEDTIME -- OBJECTIVE -- VITALS (12/25 14:50 - 12/26 14:50): Temperature F: 98.0 (97.9 - 99.0) Temperature C: 36.9 (36.4 - 37.1) Temperature source: CORE Pulse Rate 94 (67 - 143) Respiratory rate: 20 (20 - 30) Blood pressure: 96/53 (52/34 - 187/126) Blood pressure source: Monitor I/Os (12/25 07:00 - 12/26 07:00): Net -17.00 Intake 733.00 Output 750 -EXAM- OTHER: GeNeRAL: NaD ENt; No JVd, intubated luNgS: Coarse BS BL CV; Rrr WITHOUT RUB AbDOMEN: SOFT?NT/Nd WITH Nabs Ext: + EdEmA Le bILATERALLY Skin: no rash Neuro sedated -- DATA -- MEDICATIONS MUPIROCIN 1 APPLIC NASAL BID cefTRIAXone with/in WATER FOR INJECTION,STERILE 1000 MG IV BEDTIME FUROSEMIDE 40 MG IV BID@0900,1700 NITROGLYCERIN/D5W 50 MG IV X1ED IPRATROPIUM/ALBUTEROL SULFATE 3 ML NEB RTQ4H PRN AZITHROMYCIN with/in SODIUM CHLORIDE 0.9% 500 MG IV BEDTIME PANTOPRAZOLE with/in SODIUM CHLORIDE 0.9% 40 MG IV BEDTIME NOREPINEPHRINE BIT/0.9 % NACL 8 MG IV ASDIR FENTANYL CITRATE-0.9 % NACL/PF 2500 MCG IV ASDIR propofoL 1000 MG IV ASDIR LABS GLU BED (12/27/23 12:01) GLUBED 183 H ARTERIAL BLOOD GAS (12/27/23 09:14) ARTERIAL BLOOD GAS PH 7.313 L ARTERIAL BLOOD GAS PCO2 50.6 H ARTERIAL BLOOD GAS PO2 226.1 H BICARBONATE TOTAL HCO3 25.1 BASE EXCESS -1.8 L ABG O2 SATURATION 99.2 H ABG TYPE Arterial ARTERIAL FIO2 80.0 PaO2/FiO2 282.60 ABG VENT MODE AC ABG VENT RESP RATE 20 ABG TIDAL VOLUME 400 ABG PEEP 12.0 ABG SITE Right Radial ALLENS TEST Yes TOTAL HGB 14.7 OXYHEMOGLOBIN 99.0 H CARBOXYHEMOGLOBIN 0.1 D TCO2 ARTERIAL 26.6 H HGBA1C - GLYCOSYLATED HGB (12/27/23 03:25) GLYCOSYLATED HEMOGLOBIN (HA1C) 5.6 BNP (12/27/23 03:17) B-TYPE NATRIURETIC PEPTIDE 399 H LACTIC ACID (12/27/23 03:17) LACTIC ACID 1.4 CBC W/O DIFF (12/27/23 03:17) WHITE BLOOD CELL 16.3H H RED BLOOD CELL 4.71 HEMOGLOBIN 14.7 HEMATOCRIT 42.9 MEAN CELL VOLUME 91 MEAN CELL HGB 31.2 MEAN CELL HGB CONCENTRATION 34.3 RED CELL DISTRIBUTION WIDTH 15.9 H PLATELET COUNT 269 UA RFLX MICR amp;CULT IF INDICATED (12/27/23 03:17) UA COLOR YELLOW UA APPEARANCE CLEAR UA GLUCOSE DIPSTICK NEGATIVE UA BILIRUBIN DIPSTICK NEGATIVE UA KETONE DIPSTICK NEGATIVE UA SPECIFIC GRAVITY 1.019 UA BLOOD DIPSTICK 2+ H UA PH DIPSTICK 6.0 UA PROTEIN DIPSTICK NEGATIVE UA UROBILINOGEN DIPSTICK NEGATIVE UA NITRITE DIPSTICK NEGATIVE UA LEUKOCYTE ESTERASE DIPSTICK NEGATIVE UA WBC 6-10 H UA RBC 6-10 H UA BACTERIA RARE UA SQUAMOUS CELLS RARE DRUGS OF ABUSE SCREEN URINE (12/27/23 03:17) UR COCAINE NEGATIVE UR METHAMPHETAMINE NEGATIVE UR CANABINOIDS NEGATIVE UR AMPHETAMINE NEGATIVE UR BARBITURATE NEGATIVE UR BENZODIAZEPINE NEGATIVE UR OPIATES QUAL Negative UR TRICYCLICS Negative UR PHENCYCLIDINE (PCP) Negative PHOS (12/27/23 03:16) PHOSPHOROUS 4.6 BASIC METABOLIC PANEL (12/27/23 03:16) SODIUM 127L L POTASSIUM 6.9D*H D*H CHLORIDE 96L L CARBON DIOXIDE 26 ANION GAP 11.9 GLUCOSE 109H H BLOOD UREA NITROGEN 13 GLOMERULAR FILTRATION RATE 57 L CREATININE 1.4H H BUN/CREATININE RATIO 9.3 L CALCIUM 7.9 L MAG (12/27/23 03:16) MAGNESIUM 1.9 ALCOHOL (12/27/23 03:16) ALCOHOL 6.0 H LIPID PROFILE (CORONARY RISK) (12/27/23 03:16) TRIGLYCERIDES 163 H CHOLESTEROL 152 CHOLESTEROL/HDL RATIO 2 HDL CHOLESTEROL 70 H LIPOPROTEIN LDL 47 LACTIC ACID (12/27/23 00:07) LACTIC ACID 2.3 H ARTERIAL BLOOD GAS (12/26/23 22:39) ARTERIAL BLOOD GAS PH 7.273 L ARTERIAL BLOOD GAS PCO2 52.2 H ARTERIAL BLOOD GAS PO2 146.4 H BICARBONATE TOTAL HCO3 23.6 BASE EXCESS -3.9 L ABG O2 SATURATION 99.0 H ABG TYPE Arterial ARTERIAL FIO2 100.0 PaO2/FiO2 146.40 L ABG VENT MODE AC ABG TIDAL VOLUME 400 ABG PEEP 12.0 ABG SITE Right Radial ALLENS TEST Yes TOTAL HGB 15.2 OXYHEMOGLOBIN 98.4 H CARBOXYHEMOGLOBIN 0.3 D TCO2 ARTERIAL 25.2 H ARTERIAL BLOOD GAS (12/26/23 20:30) ARTERIAL BLOOD GAS PH 7.144 *L ARTERIAL BLOOD GAS PCO2 63.5 *H ARTERIAL BLOOD GAS PO2 76.4 L BICARBONATE TOTAL HCO3 21.3 L BASE EXCESS -9.0 L ABG O2 SATURATION 92.0 L ABG TYPE Arterial ARTERIAL FIO2 100.0 PaO2/FiO2 76.40 L ABG VENT MODE AC ABG TIDAL VOLUME 400 ABG PEEP 12.0 ABG SITE Right Radial ALLENS TEST Yes TOTAL HGB 17.7 H OXYHEMOGLOBIN 91.4 L CARBOXYHEMOGLOBIN 0.4 D METHEMOGLOBIN <0.8 TCO2 ARTERIAL 23.3 H CRITICAL VALUE N/A ARTERIAL BLOOD GAS (12/26/23 18:48) ARTERIAL BLOOD GAS PH 7.186 *L ARTERIAL BLOOD GAS PCO2 47.6 H ARTERIAL BLOOD GAS PO2 77.7 L BICARBONATE TOTAL HCO3 17.6 L BASE EXCESS -10.7 L ABG O2 SATURATION 92.8 L ABG TYPE Arterial ARTERIAL FIO2 100.0 PaO2/FiO2 77.70 L ABG VENT MODE BIPAP ABG PEEP 8.0 ABG SITE Right Radial ALLENS TEST Yes TOTAL HGB 17.5 H OXYHEMOGLOBIN 92.4 CARBOXYHEMOGLOBIN 0.1 METHEMOGLOBIN <0.8 TCO2 ARTERIAL 19.1 CRITICAL VALUE N/A LACTIC ACID (12/26/23 18:34) LACTIC ACID 4.0 H CBC W/O DIFF (12/26/23 18:33) WHITE BLOOD CELL 9.7 RED BLOOD CELL 5.75 HEMOGLOBIN 18.0 HEMATOCRIT 52.3 MEAN CELL VOLUME 91 MEAN CELL HGB 31.3 MEAN CELL HGB CONCENTRATION 34.4 RED CELL DISTRIBUTION WIDTH 15.8 H PLATELET COUNT 270 LIVER FUNCTION PANEL (12/26/23 18:33) TOTAL PROTEIN 8.8 H ALBUMIN 5.1 H GLOBULIN 3.7 H BILIRUBIN TOTAL 0.7 BILIRUBIN DIRECT 0.2 BILIRUBIN INDIRECT 0.5 SGOT/AST 33 SGPT/ALT 27 ALKALINE PHOSPHATASE 138 H TROP-I HIGH SEN (12/26/23 18:33) TROP-I HIGH SENSITIVITY 21 BASIC METABOLIC PANEL (12/26/23 18:33) SODIUM 124L L POTASSIUM 4.3 CHLORIDE 94L L CARBON DIOXIDE 22 ANION GAP 12.3 GLUCOSE 160H H BLOOD UREA NITROGEN 9 GLOMERULAR FILTRATION RATE >=60 max estimate CREATININE 1.3 BUN/CREATININE RATIO 6.9 L CALCIUM 9.6 BNP (12/26/23 18:30) B-TYPE NATRIURETIC PEPTIDE 546 H Signed in PatientKeeper by OMAR CORONADO MD on 12/27/23 at 21:14 at 2114 ATTENTION *EDITS and/or ADDENDA must be made in Patient Keeper for this note. * * Edits and ammendments created in [employer] are not visible * * in Patient Keeper or the legal medical record ([facility]). * RPT #: [id number] END OF REPORT [facility] 2023-12-27 09:32:00 [facility] ([facility]) [facility] REPORT #: [id number] REPORT STATUS: Signed DATE: 12/27/23 TIME: 931 PATIENT: KOTA MONTES UNIT #: [id number] ROOM #: NC.IC05 BED: A : 61 AGE: 63 SEX: M ATTEND: Lorraine Delgado MD [facility] AUTHOR: Aydee Briceno MD ATTENTION *EDITS and/or ADDENDA must be made in Patient Keeper for this note. * * Edits and ammendments created in [employer] are not visible * * in Patient Keeper or the legal medical record ([facility]). * -- HISTORY -- ADMISSION DATE: 2023-12-26 PRIMARY CARE PROVIDER: Jong Pollack MD HPI: 63-year-old male with past medical history of hypertension, dyslipidemia, coronary artery disease, congestive heart failure, s/p CABG 06/25 presented to ED with complaints of shortness of breath, generalized malaise, he told his that he was not feeling well and drove himself to the hospital. ER workup; BNP 546, hyponatremia sodium 124, lactic acid 4, pH 7.1, alcohol level 6, Chest x-ray: CHF, CTA chest: No PE detected. Bilateral consolidations. Legionella and strep pneumo: Negative, Upon ER presentation he was in respiratory distress, refractory to Bipap and was subsequently intubated in ED. Flash pulmonary edema post intubation noted, and 80 mg IV Lasix was administered. Cardiology was consulted and patient was admitted to ICU for further management. At the time of my evaluation patient was lying in the bed, intubated on mechanical ventilation. PAST MEDICAL HISTORY: Hypertension, dyslipidemia, coronary artery disease, congestive heart failure PAST SURGICAL HISTORY: CABG 06/25, PCI FAMILY HISTORY: Noncontributory -SOCIAL HISTORY- -TOBACCO USE- DETAILS/COMMENTS: Ex smoker 2pk/40 yrs -VAPING/INHALED SOLVENTS- DETAILS/COMMENTS: Noncontributory -ALCOHOL USE- DETAILS/COMMENTS: Drinks socially -DRUG USE- DETAILS/COMMENTS: Uses Vapes -- SUBJECTIVE -- UNABLE TO OBTAIN REVIEW OF SYSTEMS Intubated on mechanical ventilation -- OBJECTIVE -- -EXAM- GENERAL: Intubated on mechanical ventilation EYES: Lids normal. MOUTH: ET tube + NECK: Supple, No masses. CHEST: Grossly normal appearance. LUNGS: Clear bilaterally with normal respiratory effort. HEART: Regular rate and rhythm, normal S1, S2. ABDOMEN: Soft, non-tender, no masses noted. MUSCULOSKELETAL: No deformity. EXTREMITIES: No clubbing, no cyanosis, no edema. NEUROLOGICAL: Unable to assess -- ASSESSMENT AND PLAN -- GENERAL ASSESSMENT: Assessment and plan: 1--acute hypoxic/hypercapnic respiratory failure: 2--acute CHF exacerbation: 3--flash pulmonary edema: 4--history of coronary artery disease, s/p CABG: BNP 546, pH 7.1 Chest x-ray: CHF CTA chest: No PE detected. Bilateral consolidations. Legionella and strep pneumo: Negative Lactic acid 4-->1.4 Leukocytosis-Rocephin, azithromycin -IV Lasix -Trend lactic acid -Vasopressor support to keep MAP > 65 -DuoNebs as needed -Vent management as per critical care -Cardiology and critical care on board follow recommendation 5--hyponatremia: 6--SAMMIE: -Check UA urine studies -Trend BMP -Nephrology consulted follow recommendation 7--alcohol abuse: Alcohol level 6 -Monitor for signs and symptoms of withdrawal 8--hypertension: Currently hypotensive -Vasopressor support to keep MAP > 65 -Monitor vitals 9--dyslipidemia: LDL 47 -Restart home meds DVT prophylaxis SCDs GI prophylaxis PPI CODE STATUS full code Disposition pending clinical course Time Spent 50 minutes -- ATTESTATION -- TIME SPENT ON PATIENT CARE: - Direct 50 minutes - > 50% of time spent on Counseling/Care Coordination CARE ACTIVITIES / CARE COORDINATION: - I have reviewed the history and repeated the carias elements - I have seen and examined this patient - I have discussed the patient's condition with other members of the care team Signed in PatientKeeper by Aydee Briceno MD on 12/27/23 at 12:29 at 1229 ATTENTION *EDITS and/or ADDENDA must be made in Patient Keeper for this note. * * Edits and ammendments created in [facility] are not visible * * in Patient Keeper or the legal medical record (HPF). * [facility] #: [id number] END OF REPORT [facility] 2023-12-27 09:10:00 [id number] [place] [address] PATIENT NAME: KOTA MONTES ADMIT DATE: 12/26/23 ACCOUNT NO: [id number] ROOM NO: [place] [address] AGE: 63 REPORT TYPE: eECHOCARDIOGRAM REPORT SEX: M ADMITTING PHYSICIAN:Lorraine Delgado MD ATTENDING PHYSICIAN:Lorraine Delgado MD [phone] [id number] ECHO [id number] ECHO 2D COMPLETE W/CF DOP [facility] [place] [address] Report of Echocardiogram Name: KOTA MONTES Study Date: 12/27/2023 09:10 AM Patient Location: [place] [address] A : 1960 Gender: Male Age: 63 yrs Reason For Study: Congestive heart failure Left Ventricle: The left ventricle is normal in size. There is moderate concentric left ventricular hypertrophy. Ejection Fraction = 25-30%. Left ventricular systolic function is severely reduced. There is severe global hypokinesis of the left ventricle. Right Ventricle: The right ventricle is normal size. Atria: The left atrial size is normal. Right atrial size is normal. Mitral Valve: The mitral valve is normal. There is no mitral valve stenosis. There is trace mitral regurgitation. Tricuspid Valve: The tricuspid valve is normal. There is trace tricuspid regurgitation. RVSP16.9 mmHg. Right ventricular systolic pressure is normal. Aortic Valve: The aortic valve is mildly calcified. The aortic valve is trileaflet. No hemodynamically significant valvular aortic stenosis. Trace aortic regurgitation. Pulmonic Valve: The pulmonic valve leaflets are thin and pliable; valve motion is normal. Trace pulmonic valvular regurgitation. Great Vessels: The aortic root is normal size. [facility] [id number] PATIENT NAME: KOTA MONTES Pericardium/Pleural: There is no pericardial effusion. MMode/2D Measurements Calculations IVSd: 1.3 cm LVIDd: 4.8 cm LVIDs: 4.2 cm LVPWd: 1.3 cm FS: 11.8 % Ao root diam: 3.5 cm EDV(Teich): 105.4 ml Ao root area: 9.6 cm2 ESV(Teich): 78.4 ml LA dimension: 3.1 cm EF(Teich): 25.6 % LVOT diam: 2.1 cm LVAd ap4: 30.4 cm2 LVOT area: 3.5 cm2 LVLd ap4: 8.6 cm EDV(MOD-sp4): 88.0 ml EDV(sp4-el): 91.4 ml LVAs ap4: 24.1 cm2 LVLs ap4: 7.2 cm ESV(MOD-sp4): 66.7 ml ESV(sp4-el): 69.0 ml EF(MOD-sp4): 24.2 % EF(sp4-el): 24.5 % SV(MOD-sp4): 21.3 ml SV(sp4-el): 22.4 ml LA A4C-A/L_phl: 17.5 cm2 RA A4C-A/L_phl: 14.7 cm2 Doppler Measurements Calculations MV A max latanya: 68.4 cm/sec MV V2 max: 90.6 cm/sec MV max P.3 mmHg MV V2 mean: 65.6 cm/sec MV mean P.9 mmHg MV V2 VTI: 22.5 cm MVA(VTI): 2.7 cm2 MV dec slope: 580.1 cm/sec2 Ao V2 max: 135.4 cm/sec MV dec time: 0.15 sec Ao max P.4 mmHg Ao V2 mean: 95.2 cm/sec Ao mean P.3 mmHg Ao V2 VTI: 21.4 cm SUKHJINDER(I,D): 2.8 cm2 SUKHJINDER(V,D): 3.[address] [facility] [address] [facility] [address] PATIENT NAME: KOTA MONTES AI max latanya: 273.7 cm/sec LV V1 max P.5 mmHg AI max P.6 mmHg LV V1 mean P.2 mmHg AI dec slope: 38.0 cm/sec2 LV V1 max: 117.5 cm/sec AI P1/2t: 2111 msec LV V1 mean: 84.2 cm/sec LV V1 VTI: 17.0 cm SV(LVOT): 60.3 ml PA V2 max: 116.6 cm/sec PA max P.4 mmHg PA V2 mean: 79.4 cm/sec PA mean P.0 mmHg TR max latanya: 148.4 cm/sec RAP systole: 8.0 mmHg TR max P.9 mmHg RVSP(TR): 16.9 mmHg Interpretation Summary Ejection Fraction = 25-30%. Left ventricular systolic function is severely reduced. There is moderate concentric left ventricular hypertrophy. There is severe global hypokinesis of the left ventricle. Right ventricular systolic pressure is normal. Trace aortic regurgitation. Trace pulmonic valvular regurgitation. There is no pericardial effusion. There is trace tricuspid regurgitation. There is trace mitral regurgitation. Electronically read by:Mariam Charlton MD 12/27/2023 05:36 PM Ordering Physician: Ciera Freedman Referring Physician: Jong Pollack Performed By: Estella Boucher at [address] [address] PATIENT NAME: MONTESKOTA Penny [facility] 2023-12-27 07:58:00 [facility] ([facility]) Intensive Care Progress Note REPORT #: [id number] REPORT STATUS: Signed DATE: 12/27/23 TIME: 0758 PATIENT: KOTA MONTES UNIT #: [id number] ROOM #: [place] [address] BED: A : 61 AGE: 63 SEX: M ATTEND: Lorraine Delgado MD ADM AUTHOR: Bridger Ayala MD ATTENTION *EDITS and/or ADDENDA must be made in Patient Keeper for this note. * * Edits and ammendments created in [employer] are not visible * * in Patient Keeper or the legal medical record (HPF). * -- ASSESSMENT AND PLAN -- GENERAL ASSESSMENT: [facility] Critical Care Note Assessment Acute Hypoxic/Hypercapnic Respiratory Failure Acute CHF Exacerbation Acute Flash Pulmonary Edema Lactic Acidosis Tachycardia HTN Hyponatremia Hyperglycemia Anxiety HLD CAD w/ PCI stent x1 CABG x2 Plan: Neuro- Sedated Continue to monitor closely Fentanyl and Propofol gtt CV- Hemodynamics reviewed, acceptable currently Monitor Telemetry, BP, HR Maintain MAP> 65 Echo pending BNP : 546 Trend Troponin I : 21 Norepinephrine low dose to keep map > 65 Cardiology consulted Pulm- Monitor pulse oximetry Goal SPO2 greater than 90% CXR: Diffuse bilateral airspace opacifications with mid to lower and right lung predominance. Small bilateral pleural effusions CTA : No PE detected. Bilateral consolidations. Interval worsening since 08/22/2023. ABG / CXR reviewed Intubated in ED for respiratory Failure Diuresis as able GI- OG tube in place Dietary/Nutritional consult Renal- BMP reviewed Replace electrolytes as indicated Monitor UOP Avoid nephrotoxins ID- Trend WBC, fever curve Empiric Abx in ED Trend Lactic acid : 4.0 Follow cultures Heme- CBC reviewed No overt bleeding Trend Hgb, platelets Endo- Accuchecks Monitor for hypoglycemia Hgb A1C pending Code: FULL DVT ppx: SCDs PPI ppx : Protonix IV 40 mg daily Discussed all the above with patient, family members, ICU staff --------- Subjective: Events noted Patient seen and examined Discussed with team during multidisciplinary rounds Remains intubated and sedated FiO2 80% at PEEP 12 HPI: Mr. Montes is a 63 yo male with pmx of HTN, HLD, CAD, CHF, CABG 06/25 who presented to ED with generalized malaise. He told his that he was not feeling well and drove himself to the hospital. Patient was in respiratory distress , refractory to Bipap and was subsequently intubated in ED. Flash pulmonary edema post intubation noted, and 80 mg IV Lasix was administered. Patient is being accepted to ICU for HLOC and continued monitoring. Thank you for this consultation. We will continue to monitor. Please call for any concerns. Past medical history: HTN, HLD, CAD, CHF PSurgHx: CABG in June 2023, PCI with stent , Multiple intubations FamHx: nc SocHx: ETOH quit June 2023, Ex smoker 2pk/40 yrs, Currently vapes Review of systems: 14 point review system negative unless listed above Physical Exam General: NAD, Sedated Eyes: Anicteric sclerae. Mouth: MMM, ET tube Neck: Supple. CV: Irregular rate and rhythm. Normal S1 and S2. Pulm: Good effort, no wheezing or Rales appreciated. Abdomen: Soft, nontender.BS+ Extremities: No lower extremity edema. Skin: Warm, dry. Neuro: Sedated Psych: paris Pfeiffer have personally provided 35 minutes of critical care time. Time includes review of laboratory data, radiology results, discussion with consultants, family and staff and monitoring for potential decompensation. Interventions were performed as documented above. This is exclusive of time spent on separately billable procedures. -- OBJECTIVE -- VITALS (12/25 18:56 - 12/26 18:56): Temperature F: 98.0 (97.9 - 98.0) Temperature C: 37.9 (36.4 - 37.9) Temperature source: CORE Pulse Rate 118 (67 - 129) Respiratory rate: 26 (20 - 26) Blood pressure: 119/59 (52/34 - 150/94) Blood pressure source: Monitor I/Os (12/25 07:00 - 12/26 07:00): Net -17.00 Intake 733.00 Output 750 -- DATA -- MEDICATIONS FUROSEMIDE 40 MG IV BID@0900,1700 NITROGLYCERIN/D5W 50 MG IV X1ED MUPIROCIN 1 APPLIC NASAL BID cefTRIAXone with/in WATER FOR INJECTION,STERILE 1000 MG IV BEDTIME IPRATROPIUM/ALBUTEROL SULFATE 3 ML NEB RTQ4H PRN AZITHROMYCIN with/in SODIUM CHLORIDE 0.9% 500 MG IV BEDTIME PANTOPRAZOLE with/in SODIUM CHLORIDE 0.9% 40 MG IV BEDTIME NOREPINEPHRINE BIT/0.9 % NACL 8 MG IV ASDIR FENTANYL CITRATE-0.9 % NACL/PF 2500 MCG IV ASDIR propofoL 1000 MG IV ASDIR LABS GLU BED (12/27/23 17:36) GLUBED 88 BASIC METABOLIC PANEL (12/27/23 15:26) SODIUM 135L L POTASSIUM 4.1D D CHLORIDE 98 CARBON DIOXIDE 26 ANION GAP 15.1 D GLUCOSE 100 BLOOD UREA NITROGEN 14 GLOMERULAR FILTRATION RATE 57 L CREATININE 1.4H H BUN/CREATININE RATIO 10.0 L CALCIUM 8.4 L URIC ACID (12/27/23 15:26) URIC ACID 9.5 H CREATU (12/27/23 14:56) UR CREATININE RANDOM 122 UR NA RANDOM (12/27/23 14:56) UR SODIUM RANDOM < 10 UR CL RANDOM (12/27/23 14:56) UR CHLORIDE RANDOM 33 GLU BED (12/27/23 12:01) GLUBED 183 H ARTERIAL BLOOD GAS (12/27/23 09:14) ARTERIAL BLOOD GAS PH 7.313 L ARTERIAL BLOOD GAS PCO2 50.6 H ARTERIAL BLOOD GAS PO2 226.1 H BICARBONATE TOTAL HCO3 25.1 BASE EXCESS -1.8 L ABG O2 SATURATION 99.2 H ABG TYPE Arterial ARTERIAL FIO2 80.0 PaO2/FiO2 282.60 ABG VENT MODE AC ABG VENT RESP RATE 20 ABG TIDAL VOLUME 400 ABG PEEP 12.0 ABG SITE Right Radial ALLENS TEST Yes TOTAL HGB 14.7 OXYHEMOGLOBIN 99.0 H CARBOXYHEMOGLOBIN 0.1 D TCO2 ARTERIAL 26.6 H HGBA1C - GLYCOSYLATED HGB (12/27/23 03:25) GLYCOSYLATED HEMOGLOBIN (HA1C) 5.6 BNP (12/27/23 03:17) B-TYPE NATRIURETIC PEPTIDE 399 H LACTIC ACID (12/27/23 03:17) LACTIC ACID 1.4 CBC W/O DIFF (12/27/23 03:17) WHITE BLOOD CELL 16.3H H RED BLOOD CELL 4.71 HEMOGLOBIN 14.7 HEMATOCRIT 42.9 MEAN CELL VOLUME 91 MEAN CELL HGB 31.2 MEAN CELL HGB CONCENTRATION 34.3 RED CELL DISTRIBUTION WIDTH 15.9 H PLATELET COUNT 269 UA RFLX MICR amp;CULT IF INDICATED (12/27/23 03:17) UA COLOR YELLOW UA APPEARANCE CLEAR UA GLUCOSE DIPSTICK NEGATIVE UA BILIRUBIN DIPSTICK NEGATIVE UA KETONE DIPSTICK NEGATIVE UA SPECIFIC GRAVITY 1.019 UA BLOOD DIPSTICK 2+ H UA PH DIPSTICK 6.0 UA PROTEIN DIPSTICK NEGATIVE UA UROBILINOGEN DIPSTICK NEGATIVE UA NITRITE DIPSTICK NEGATIVE UA LEUKOCYTE ESTERASE DIPSTICK NEGATIVE UA WBC 6-10 H UA RBC 6-10 H UA BACTERIA RARE UA SQUAMOUS CELLS RARE DRUGS OF ABUSE SCREEN URINE (12/27/23 03:17) UR COCAINE NEGATIVE UR METHAMPHETAMINE NEGATIVE UR CANABINOIDS NEGATIVE UR AMPHETAMINE NEGATIVE UR BARBITURATE NEGATIVE UR BENZODIAZEPINE NEGATIVE UR OPIATES QUAL Negative UR TRICYCLICS Negative UR PHENCYCLIDINE (PCP) Negative PHOS (12/27/23 03:16) PHOSPHOROUS 4.6 BASIC METABOLIC PANEL (12/27/23 03:16) SODIUM 127L L POTASSIUM 6.9D*H D*H CHLORIDE 96L L CARBON DIOXIDE 26 ANION GAP 11.9 GLUCOSE 109H H BLOOD UREA NITROGEN 13 GLOMERULAR FILTRATION RATE 57 L CREATININE 1.4H H BUN/CREATININE RATIO 9.3 L CALCIUM 7.9 L MAG (12/27/23 03:16) MAGNESIUM 1.9 ALCOHOL (12/27/23 03:16) ALCOHOL 6.0 H LIPID PROFILE (CORONARY RISK) (12/27/23 03:16) TRIGLYCERIDES 163 H CHOLESTEROL 152 CHOLESTEROL/HDL RATIO 2 HDL CHOLESTEROL 70 H LIPOPROTEIN LDL 47 LACTIC ACID (12/27/23 00:07) LACTIC ACID 2.3 H ARTERIAL BLOOD GAS (12/26/23 22:39) ARTERIAL BLOOD GAS PH 7.273 L ARTERIAL BLOOD GAS PCO2 52.2 H ARTERIAL BLOOD GAS PO2 146.4 H BICARBONATE TOTAL HCO3 23.6 BASE EXCESS -3.9 L ABG O2 SATURATION 99.0 H ABG TYPE Arterial ARTERIAL FIO2 100.0 PaO2/FiO2 146.40 L ABG VENT MODE AC ABG TIDAL VOLUME 400 ABG PEEP 12.0 ABG SITE Right Radial ALLENS TEST Yes TOTAL HGB 15.2 OXYHEMOGLOBIN 98.4 H CARBOXYHEMOGLOBIN 0.3 D TCO2 ARTERIAL 25.2 H ARTERIAL BLOOD GAS (12/26/23 20:30) ARTERIAL BLOOD GAS PH 7.144 *L ARTERIAL BLOOD GAS PCO2 63.5 *H ARTERIAL BLOOD GAS PO2 76.4 L BICARBONATE TOTAL HCO3 21.3 L BASE EXCESS -9.0 L ABG O2 SATURATION 92.0 L ABG TYPE Arterial ARTERIAL FIO2 100.0 PaO2/FiO2 76.40 L ABG VENT MODE AC ABG TIDAL VOLUME 400 ABG PEEP 12.0 ABG SITE Right Radial ALLENS TEST Yes TOTAL HGB 17.7 H OXYHEMOGLOBIN 91.4 L CARBOXYHEMOGLOBIN 0.4 D METHEMOGLOBIN <0.8 TCO2 ARTERIAL 23.3 H CRITICAL VALUE N/A Signed in PatientKeeper by BRIDGER AYALA MD on 12/27/23 at 18:58 at 1858 ATTENTION *EDITS and/or ADDENDA must be made in Patient Keeper for this note. * * Edits and ammendments created in [facility] are not visible * * in Patient Keeper or the legal medical record ([facility]). * RPT #: [id number] END OF REPORT [facility] 2023-12-26 20:48:00 [facility] ([facility]) Intensive Care Consultation REPORT #: [id number] REPORT STATUS: Signed DATE: 12/26/23 TIME: 2047 PATIENT: KOTA MONTES UNIT #: [id number] ROOM #: NC.IC05 BED: A : 61 AGE: 63 SEX: M ATTEND: Pete Vang MD ADM AUTHOR: Ciera Freedman CNP ATTENTION *EDITS and/or ADDENDA must be made in Patient Keeper for this note. * * Edits and ammendments created in [employer] are not visible * * in Patient Keeper or the legal medical record ([facility]). * -- ASSESSMENT AND PLAN -- GENERAL ASSESSMENT: [facility] Critical Care Note Assessment Acute Hypoxic/Hypercapnic Respiratory Failure Acute CHF Exacerbation Acute Flash Pulmonary Edema Lactic Acidosis Tachycardia HTN Hyponatremia Hyperglycemia Anxiety HLD CAD w/ PCI stent x1 CABG x2 Plan: Neuro- Sedated Continue to monitor closely Fentanyl and Propofol gtt CV- Hemodynamics reviewed, acceptable currently Monitor Telemetry, BP, HR Maintain MAP> 65 Echo pending BNP : 546 Trend Troponin I : 21 Norepinephrine low dose to keep map > 65 Cardiology consulted Pulm- Monitor pulse oximetry Goal SPO2 greater than 90% CXR: Diffuse bilateral airspace opacifications with mid to lower and right lung predominance. Small bilateral pleural effusions CTA : No PE detected. Bilateral consolidations. Interval worsening since 08/22/2023. ABG / CXR reviewed Intubated in ED for respiratory Failure GI- OG tube in place Dietary/Nutritional consult Renal- BMP reviewed Replace electrolytes as indicated Monitor UOP Avoid nephrotoxins ID- Trend WBC, fever curve Empiric Abx in ED Trend Lactic acid : 4.0 Follow cultures Heme- CBC reviewed No overt bleeding Trend Hgb, platelets Endo- Accuchecks Monitor for hypoglycemia Hgb A1C pending Code: FULL DVT ppx: SCDs PPI ppx : Protonix IV 40 mg daily Discussed all the above with patient, family members, ICU staff --------- HPI: Mr. Montes is a 63 yo male with pmx of HTN, HLD, CAD, CHF, CABG 06/25 who presented to ED with generalized malaise. He told his that he was not feeling well and drove himself to the hospital. Patient was in respiratory distress , refractory to Bipap and was subsequently intubated in ED. Flash pulmonary edema post intubation noted, and 80 mg IV Lasix was administered. Patient is being accepted to ICU for HLOC and continued monitoring. Thank you for this consultation. We will continue to monitor. Please call for any concerns. Past medical history: HTN, HLD, CAD, CHF PSurgHx: CABG in June 2023, PCI with stent , Multiple intubations FamHx: nc SocHx: ETOH quit June 2023, Ex smoker 2pk/40 yrs, Currently vapes Review of systems: 14 point review system negative unless listed above Physical Exam General: NAD, Sedated Eyes: Anicteric sclerae. Mouth: MMM, ET tube Neck: Supple. CV: Irregular rate and rhythm. Normal S1 and S2. Pulm: Good effort, no wheezing or Rales appreciated. Abdomen: Soft, nontender.BS+ Extremities: No lower extremity edema. Skin: Warm, dry. Neuro: Sedated Psych: paris I have personally provided 35 minutes of critical care time. Time includes review of laboratory data, radiology results, discussion with consultants, family and staff and monitoring for potential decompensation. Interventions were performed as documented above. This is exclusive of time spent on separately billable procedures. -- OBJECTIVE -- VITALS (12/24 20:48 - 12/25 20:48): Temperature F: 99.0 Temperature source: Oral Pulse Rate 95 (95 - 143) Respiratory rate: 30 Blood pressure: 187/126 -- DATA -- MEDICATIONS MUPIROCIN 1 APPLIC NASAL BID NITROGLYCERIN/D5W 50 MG IV X1ED MUPIROCIN 1 APPLIC NASAL BID propofoL 1000 MG IV X1ED FENTANYL CITRATE-0.9 % NACL/PF 2500 MCG IV X1ED LABS ARTERIAL BLOOD GAS (12/26/23 20:30) ARTERIAL BLOOD GAS PH 7.144 *L ARTERIAL BLOOD GAS PCO2 63.5 *H ARTERIAL BLOOD GAS PO2 76.4 L BICARBONATE TOTAL HCO3 21.3 L BASE EXCESS -9.0 L ABG O2 SATURATION 92.0 L ABG TYPE Arterial ARTERIAL FIO2 100.0 PaO2/FiO2 76.40 L ABG VENT MODE AC ABG TIDAL VOLUME 400 ABG PEEP 12.0 ABG SITE Right Radial ALLENS TEST Yes TOTAL HGB 17.7 H OXYHEMOGLOBIN 91.4 L CARBOXYHEMOGLOBIN 0.4 D METHEMOGLOBIN <0.8 TCO2 ARTERIAL 23.3 H CRITICAL VALUE N/A ARTERIAL BLOOD GAS (12/26/23 18:48) ARTERIAL BLOOD GAS PH 7.186 *L ARTERIAL BLOOD GAS PCO2 47.6 H ARTERIAL BLOOD GAS PO2 77.7 L BICARBONATE TOTAL HCO3 17.6 L BASE EXCESS -10.7 L ABG O2 SATURATION 92.8 L ABG TYPE Arterial ARTERIAL FIO2 100.0 PaO2/FiO2 77.70 L ABG VENT MODE BIPAP ABG PEEP 8.0 ABG SITE Right Radial ALLENS TEST Yes TOTAL HGB 17.5 H OXYHEMOGLOBIN 92.4 CARBOXYHEMOGLOBIN 0.1 METHEMOGLOBIN <0.8 TCO2 ARTERIAL 19.1 CRITICAL VALUE N/A LACTIC ACID (12/26/23 18:34) LACTIC ACID 4.0 H LIVER FUNCTION PANEL (12/26/23 18:33) TOTAL PROTEIN 8.8 H ALBUMIN 5.1 H GLOBULIN 3.7 H BILIRUBIN TOTAL 0.7 BILIRUBIN DIRECT 0.2 BILIRUBIN INDIRECT 0.5 SGOT/AST 33 SGPT/ALT 27 ALKALINE PHOSPHATASE 138 H CBC W/O DIFF (12/26/23 18:33) WHITE BLOOD CELL 9.7 RED BLOOD CELL 5.75 HEMOGLOBIN 18.0 HEMATOCRIT 52.3 MEAN CELL VOLUME 91 MEAN CELL HGB 31.3 MEAN CELL HGB CONCENTRATION 34.4 RED CELL DISTRIBUTION WIDTH 15.8 H PLATELET COUNT 270 TROP-I HIGH SEN (12/26/23 18:33) TROP-I HIGH SENSITIVITY 21 BASIC METABOLIC PANEL (12/26/23 18:33) SODIUM 124L L POTASSIUM 4.3 CHLORIDE 94L L CARBON DIOXIDE 22 ANION GAP 12.3 GLUCOSE 160H H BLOOD UREA NITROGEN 9 GLOMERULAR FILTRATION RATE >=60 max estimate CREATININE 1.3 BUN/CREATININE RATIO 6.9 L CALCIUM 9.6 BNP (12/26/23 18:30) B-TYPE NATRIURETIC PEPTIDE 546 H Signed in PatientKeeper by Ciera Freedman CNP on 12/27/23 at 00:31 Cosigned by HUNTER CHILDS MD on 01/01/24 at 16:57 at 1657 at 1657 ATTENTION *EDITS and/or ADDENDA must be made in Patient Keeper for this note. * * Edits and ammendments created in [employer] are not visible * * in Patient Keeper or the legal medical record ([facility]). * [facility] #: [id number] END OF REPORT [facility] 2023-12-26 19:26:00 [id number] [place] [address] PATIENT NAME: KOTA MONTES ADMIT DATE: 12/26/23 ACCOUNT NO: [id number] ROOM NO: [facility] AGE: 63 REPORT TYPE: eELECTROCARDIOGRAM SEX: M ADMITTING PHYSICIAN:Pete Vang MD ATTENDING PHYSICIAN:Pete Vang MD Order: [id number] Test Reason : SOB Test Date/Time Stamp: SatDec 26 2023 19:26:45 Blood Pressure : / mmHG Vent. Rate : 122 BPM Atrial Rate : 122 BPM P-R Int : 164 ms QRS Dur : 156 ms QT Int : 396 ms P-R-T Axes : 080 100 -13 degrees QTc Int : 564 ms possible Sinus tachycardia Biatrial enlargement Rightward axis Left ventricular hypertrophy with QRS widening and repolarization abnormality ( Kiko product ) Abnormal ECG When compared with ECG of 26-DEC-2023 18:28, (Unconfirmed) No significant change was found Confirmed by DHIRAJ DUNN MD ([id number]) on 12/30/2023 2:54:53 PM Referred By: Jong Pollack Confirmed by:DHIRAJ DUNN MD at [address] [place] [id number] PATIENT NAME: KOTA MONTES [facility] 2023-12-26 18:45:00 [facility] ([facility] REPORT REPORT#:[id number] REPORT STATUS: Signed DATE:12/26/23 TIME: 1844 PATIENT: KOTA MONTES UNIT #: [id number] ROOM: BED: : 61 AGE: 63 SEX: M PCP PHYS: Jong Pollack MD SERVICE AUTHOR: Danny Hernandez MD REP SRV REP SRV TM: 1844 * ALL edits or amendments must be made on the electronic/computer document * HPI-Dyspnea/Wheezing General Initial Greet Date/Time 12/26/231825 Presentation Chief Complaint Congestive heart failure, Shortness of breath Past Medical History - Adult Stated Complaint SOB Allergies Coded Allergies: No Known Allergies (08/30/23) Home Medications Active Scripts Metoprolol Tartrate (Lopressor) 12.5 MG PO BID Metoprolol Tartrate (Lopressor) 12.5 MG PO BID #60 TAB Prov: 08/31/23 Amoxicillin/Clav K (Amox-Clav 875/125 Mg) 875 MG PO Q12H Amoxicillin/Clav K (Amox-Clav 875/125 Mg) 875 MG PO Q12H #20 TABS Prov: 12/06/23 Albuterol (Albuterol HFA 90 MCG/ACT) 2 PUFF INH RTQ4H PRN PRN DYSPNEA/WHEEZING Albuterol (Albuterol HFA 90 MCG/ACT) 2 PUFF INH RTQ4H PRN PRN DYSPNEA/ WHEEZING #9 GM Prov: 12/06/23 Reported Medications Potassium Chloride Er (Klor-Con M20) 20 MEQ PO DAILY Aspirin Ec 81 MG PO DAILY Pregabalin (Lyrica) 50 MG PO BID Ticagrelor (Brilinta) 90 MG PO Q12HR Escitalopram (Lexapro) 20 MG PO DAILY Thiamine (Vitamin B-1) 100 MG PO DAILY Atorvastatin (Lipitor) 40 MG PO BEDTIME Celecoxib (Celebrex) 200 MG PO DAILY Furosemide (Lasix) 20 MG PO DAILY Trazodone (Desyrel) 100 MG PO BEDTIME PRN INSOMNIA Clopidogrel Bisulfate (Plavix) 75 MG PO DAILY Physical Exam Vital Signs Vital Signs First Documented: Result Date Time O2 Delivery Room air 12/26 1831 Temp 37.2 12/26 1831 Resp 30 12/26 1831 Pulse Ox 87 12/25 1838 B/P 187/126 12/25 1838 B/P Mean 143 12/25 1838 Pulse 143 12/25 1838 Last Documented: Result Date Time Pulse Ox 87 12/25 1838 B/P 187/126 12/25 1838 B/P Mean 143 12/25 1838 Pulse 143 12/25 1838 O2 Delivery Room air 12/26 1831 Temp 37.2 12/26 1831 Resp 30 12/26 1831 Review of Vital Signs Reviewed Basic Physical Exam Basic PE NEURO: alert oriented Focused PE Resp/Chest Text/Dict Notes Patient has diffuse Rales throughout all lung armijo with severe shortness of breath patient's skin is cyanotic pale and diaphoretic Interpretation Diagnostics Lab Results Interpretation Results Laboratory Tests 12/26/231832: [Embedded Image Not Available] Laboratory Tests: 12/25 Chemistry Sodium (136 - 145 mmol/L) 124 L Potassium (3.5 - 5.1 mmol/L) 4.3 Chloride (98 - 107 mmol/L) 94 L Carbon Dioxide (20 - 31 mmol/L) 22 Anion Gap (2.0 - 16.0) 12.3 BUN (9 - 23 mg/dL) 9 Creatinine (0.7 - 1.3 mg/dL) 1.3 Glomerular Filtr Rate (ml/min) >=60 max estimate BUN/Creatinine Ratio (12.0 - 20.0) 6.9 L Glucose (74 - 106 mg/dL) 160 H Lactic Acid (0.5 - 2.2 mmol/L) 4.0 H Calcium (8.7 - 10.4 mg/dL) 9.6 Total Bilirubin (0.2 - 1.1 mg/dL) 0.7 Direct Bilirubin (0.0 - 0.3 mg/dL) 0.2 Indirect Bilirubin (0.0 - 0.8 mg/dL) 0.5 AST (<34 U/L) 33 ALT (10 - 49 U/L) 27 Total Alk Phosphatase (46 - 116 U/L) 138 H Troponin I High Sens (0 - 78 pg/mL) 21 B-Natriuretic Peptide (0 - 100 pg/mL) 546 H Total Protein (5.7 - 8.2 g/dL) 8.8 H Albumin (3.4 - 5.0 g/dL) 5.1 H Globulin (2.3 - 3.5 g/dL) 3.7 H Hematology WBC (4.5 - 11.0 10 3/uL) 9.7 RBC (4.30 - 5.90 10 6/uL) 5.75 Hgb (14.0 - 18.0 g/dL) 18.0 Hct (40.0 - 55.0 %) 52.3 MCV (81 - 102 fL) 91 MCH (26.0 - 34.0 pg) 31.3 MCHC (31.0 - 37.0 g/dL) 34.4 RDW (11.6 - 14.4 %) 15.8 H Plt Count (150 - 400 10 3/uL) 270 12/26 1847 Blood Gas Puncture Site Right Radial ABG pH (7.35 - 7.45) 7.186 *L ABG pCO2 (35.0 - 45.0 mmHg) 47.6 H ABG pO2 (80.0 - 100.0 mmHg) 77.7 L ABG PO2/FiO2 Ratio (>200) 77.70 L ABG HCO3 (22.0 - 26.0 mmol/L) 17.6 L ABG Total CO2 (15 - 23 mL/dL) 19.1 ABG O2 Saturation (94.0 - 98.0 %) 92.8 L ABG Base Excess (0.0 - 2.0 mmol/L) -10.7 L ABG Oxyhemoglobin (92.0 - 98.0 %) 92.4 ABG Carboxyhemoglobin (0 - 5.0 %) 0.1 Dat Test Yes Methemoglobin (0 - 1.5 %) <0.8 Total Hemoglobin (13.0 - 17.0 g/dL) 17.5 H Patient On Oxygen Arterial Vent Mode BIPAP FiO2 (%) 100.0 PEEP (cmH2O) 8.0 Microbiology: Date/Time Procedure - Status Source Growth 12/25 2022 MRSA Screen - ORD NASAL 12/25 1833 Blood Culture - RECD Blood 12/25 1833 Blood Culture - RECD Blood Recent Impressions: RADIOLOGY - XR CHEST 1 V 12/25 1833 Report Impression - Status: SIGNED Entered: 12/26/20231904 IMPRESSION: CHF. Impression By: Horace Choi MD RADIOLOGY - XR CHEST 1 V 12/25 1901 Report Impression - Status: SIGNED Entered: 12/26/20231922 IMPRESSION: ET tube tip is 5.3 cm above the elizabeth. Enteric tube side-port at the GE junction. Consider advancement by 6 to 7 cm. No substantial change in pulmonary opacification. Impression By: [email or web address] Lor Melendez MD CAT SCAN - CT CHEST W/CONTRAST 12/25 1954 Report Impression - Status: SIGNED Entered: 12/26/20232017 IMPRESSION: 1. No PE detected. 2. Bilateral consolidations. 3. Interval worsening since 08/22/2023. Impression By: Horace Choi MD Re-Evaluation MDM Free Text MDM Notes Additional Text 63-year-old male presents to the ER being rushed into room 6 with severe shortness of breath. Patient reports that started just about an hour prior to arrival. On arrival the patient severely tachypneic cyanotic mottled diaphoretic and ill-appearing. Patient was placed on bed 6 for lung exam reveals diffuse Rales throughout all lung armijo. The patient is able to relay that he has a history of congestive heart failure. Nonrebreather was placed on the patient RT was called to the bedside it subsequently BiPAP was placed on the patient. Patient's heart rate was 144. A bedside EKG was quickly obtained which showed a left bundle branch block. Several EKGs were pulled from November 2023 and August 2023 which revealed the same exact electrical pattern of a chronic stable left bundle branch block which is not new. The left bundle branch block does not meet Sgarbossa criteria. Patient remained profoundly tachypneic hypoxic cyanotic diaphoretic even after CPAP/BiPAP on 100% FiO2. Decision was made to intubate the patient. Ketamine was pushed followed by rocuronium followed by removal of the BiPAP for bag-valve -mask ventilation and the glide scope was utilized to place a 7.5 endotracheal tube through the patient's vocal cords without complications. There was foaming pulmonary edema coming out of the patient's trachea during intubation attempt which was removed with suctioning. Postintubation chest x-ray shows good tube placement and a dense right lower lobe infiltrate and a subtle left lower lobe infiltrate cardiomegaly and sternotomy changes. It is possible the patient has pneumonia superimposed on what sounds like clinical CHF exacerbation. Blood cultures and IV antibiotics will be initiated. Fluid resuscitation is being withheld at this time in till the BNP returns. Laboratory called with a critical lactic acid of 4.0. -History obtained from or confirmed by patient who states began having shortness of breath 1 hour ago Patient's care unknown significantly limited by social determinants of health as the patient is critically ill currently intubated (inadequate housing/low income/alcoholism in family/drug addiction in family/ unemployment/Other) Patient's care impacted by chronic condition: Only history is able to obtain prior to the patient being intubated was that he has history of CHF and his chest x-ray revealed sternotomy changes which indicates a history of coronary artery disease or valve replacement Patient's pertinent positives and pertinent negatives and reassessments: Physical exam patient is pale, cyanotic, mottled, severely diaphoretic and in severe respiratory distress all lung armijo have diffuse Rales throughout Abnormal vital signs (if any and how addressed) patient's profoundly tachycardic which is being evaluated currently patient's blood pressure stable. Diagnostic studies -If not performed why: I considered performing [ ], but did not after shared decision making with patient or family due to [reason]. -LAB tests performed and results and how it affected the patient's treatment: Normal CBC. Metabolic panel with hyponatremia. Troponins normal. BNP is 546 as interpreted by me -X-ray, CT, ultrasound wet reads must say interpreted by me and shows: Chest x- ray shows pulmonary vascular consolidations postintubation chest x-ray shows good tube placement with bilateral consolidations in both lower lobes. CT angio of the chest shows no pulmonary embolism though there is bilateral consolidations consistent with severe pneumonia as interpreted by me -EKG interpreted by me and shows: Rate of 122 left bundle branch block sinus rhythm sinus tachycardia no ST segment elevation or depression. -As a result of the (EKG/rhythm strip/x-ray/labs/ultrasound/CT scan) findings, I chose the following management: Patient to the ICU after blood cultures antibiotics will be completed while intubated Medications: -Medications administered and what route and reassessment after administration: The mycin 500 mg was given intravenously and Rocephin 2 g IV after blood cultures were obtained in addition to intubation with ketamine rocuronium followed by propofol and fentanyl drip -I considered management with pressors but did not provide due to no hypotension. -Document if patient refused any medications considered. None where refused -Document if prescription medications were considered and if not given why: Patient is critically ill and admitted to the ICU Differential diagnosis ruled out and ruled in including diagnosis: The differential diagnosis associated with the patient's presentation includes: Pulmonary embolism, CHF, pneumonia. Is found the patient has pneumonia with a component of CHF Discussions with other healthcare providers including name and summary of what was discussed: -Management of the patient was discussed with [facility] and critical care physicians who stated: Will consult on the patient -Radiology interpretation from radiologist such as stroke and traumas: Discussed with radiology regarding test interpretation: -Document if any records were reviewed from external facility. Include the dates of the documentation and the dates reviewed and the source and summary of your findings: EKG was obtained from April 2023 in November 2023 which shows a stable left bundle branch block no changes Disposition: Escalation of care including admission/observation considered due to severe shortness of breath severe pneumonia respiratory failure, Shared decision making with patient or family was employed What is patient's disposition? Admit to the ICU What is the patient's follow-up plan [ ]. ED Course Medication(s) Ordered Medication(s) Ordered: Anti-Infective Agents Sig/Alfonzo Start time Last Medication Dose Route Stop Time Status Admin Azithromycin 500 MG X1ED STA 12/25 1904 DC Sodium Chloride 250 ML IV 12/26 2003 Ceftriaxone Sodium 2 GM X1ED STA 12/25 1904 DC 12/25 Sterile Water 20 ML IV 12/25 1906 1943 Autonomic Drugs Sig/Alfonzo Start time Last Medication Dose Route Stop Time Status Admin Rocuronium [place] 80 MG X1ED STA 12/25 190 DC IV 12/25 190 Cardiovascular Drugs Sig/Alfonzo Start time Last Medication Dose Route Stop Time Status Admin Nitroglycerin/ 250 ML X1ED STA 12/25 1833 AC 12/25 Dextrose IV 01/05 0432 1840 Nitroglycerin/ 250 ML .STK-MED ONE 12/25 1827 DC Dextrose IV Central Nervous System Agents Sig/Alfonzo Start time Last Medication Dose Route Stop Time Status Admin Propofol 100 ML X1ED STA 12/25 1958 CKD 12/25 IV 12/298 2008 Fentanyl Citrate 250 ML X1ED STA 12/25 190 CKD 12/25 IV 01/05 0502 1909 Ketamine HCl 150 MG X1ED STA 12/25 1900 DC 12/25 IV 12/25 190 1907 Ketamine HCl 0 .STK-MED ONE 12/25 1855 DC IV Diagnostic Agents Sig/Alfonzo Start time Last Medication Dose Route Stop Time Status Admin Iopamidol 0 .STK-MED ONE 12/25 185 DC .ROUTE Electrolytic, Caloric, And Leandro Sig/Alfonzo Start time Last Medication Dose Route Stop Time Status Admin Furosemide 80 MG X1ED STA 12/25 1833 DC 12/25 IV 12/25 183 184 Skin And Mucous Membrane Agent Sig/Alfonzo Start time Last Medication Dose Route Stop Time Status Admin Mupirocin 1 APPLIC BID 12/25 2100 UNV NASAL 12/30 0901 Patient Discharge Departure Vital Signs/Condition Vital Signs First Documented: Result Date Time O2 Delivery Room air 12/25 183 Temp 37.2 12/25 183 Resp 30 12/25 183 Pulse Ox 87 12/25 1839 B/P 187/126 12/25 183 B/P Mean 143 12/25 183 Pulse 143 12/25 183 Last Documented: Result Date Time Pulse Ox 87 12/25 1839 B/P 187/126 12/25 1838 B/P Mean 143 12/25 183 Pulse 143 12/25 183 O2 Delivery Room air 12/26 1831 Temp 37.2 12/25 183 Resp 30 12/25 183 All vital signs available at the time of this entry have been reviewed. Clinical Impression Clinical Impression Primary Impression: Respiratory failure Secondary Impressions: Pneumonia Disposition Decision Hospitalize Hosp Physician Name Lorraine Delgado MD Hosp Physician Hospitalist Request Time 2025 Request Date 12/26/23 )( Accepts Hospitalization Yes at 2025 RPT #:[id number] END OF REPORT [facility] 2023-12-26 18:28:00 [id number] [facility] [place] on [address] [address] PATIENT NAME: TIMOTHYKOTA MAYDA ADMIT DATE: 12/26/23 ACCOUNT NO: [id number] ROOM NO: OH.212 AGE: 63 REPORT TYPE: eELECTROCARDIOGRAM SEX: M ADMITTING PHYSICIAN:Pete Vang MD ATTENDING PHYSICIAN:Pete Vang MD Order: [id number] Test Reason : SOB Test Date/Time Stamp: SatDec 26 2023 18:28:59 Blood Pressure : / mmHG Vent. Rate : 124 BPM Atrial Rate : 124 BPM P-R Int : 150 ms QRS Dur : 150 ms QT Int : 392 ms P-R-T Axes : 064 106 -09 degrees QTc Int : 563 ms Poor data quality, interpretation may be adversely affected possible sinus tachycardia Possible Left atrial enlargement Rightward axis Left ventricular hypertrophy with QRS widening and repolarization abnormality ( [place] product ) Abnormal ECG When compared with ECG of 26-DEC-2023 18:28, (Unconfirmed) No significant change was found Confirmed by DHIRAJ DUNN MD ([id number]) on 12/30/2023 2:54:27 PM Referred By: Jong Pollack Confirmed by:DHIRAJ DUNN MD at [address] [id number] PATIENT NAME: KOTA MONTES [facility] 2023-12-06 12:19:00 [facility] ([facility]) EMERGENCY PROVIDER REPORT REPORT#:[id number] REPORT STATUS: Signed DATE:12/06/23 TIME: 1219 PATIENT: KOTA MONTES UNIT #: [id number] ROOM: BED: : 61 AGE: 63 SEX: M PCP PHYS: Jong Pollack MD SERVICE AUTHOR: Nitza Brown DO REP SRV REP SRV TM: 1219 * ALL edits or amendments must be made on the electronic/computer document * HPI-URI/Cough/Cold General Initial Greet Date/Time 12/06/23 1156 Presentation Chief Complaint Cough, non-productive Reason for ED Visit (v.PCP/UC) 63 yo male present to the ER with complaint of cough since last night. Patient is concerned that he may have bronchitis since he had it before. He denies fever, bodyaches. Patient states he may feel chilled at times prior to the cough. Hx Obtained From Patient Review of Systems ROS Statements All systems rev neg except as marked. Focused Review of Systems Constitutional Reports: Chills. Denies: Fatigue, Fever, Lethargy, Malaise, Recent wt loss, Weakness - generalized. Respiratory Reports: Cough, non-productive. Denies: Cough, productive, Dyspnea on exertion, Hemoptysis, Parox nocturnal dyspnea, Pleuritic pain, Shortness of breath, Wheezing. Past Medical History - Adult Stated Complaint COUGH SINCE YEST Allergies Coded Allergies: No Known Allergies (08/30/23) Home Medications Active Scripts Metoprolol Tartrate (Lopressor) 12.5 MG PO BID Metoprolol Tartrate (Lopressor) 12.5 MG PO BID #60 TAB Prov: 08/31/23 Reported Medications Potassium Chloride Er (Klor-Con M20) 20 MEQ PO DAILY Aspirin Ec 81 MG PO DAILY Pregabalin (Lyrica) 50 MG PO BID Ticagrelor (Brilinta) 90 MG PO Q12HR Escitalopram (Lexapro) 20 MG PO DAILY Thiamine (Vitamin B-1) 100 MG PO DAILY Atorvastatin (Lipitor) 40 MG PO BEDTIME Celecoxib (Celebrex) 200 MG PO DAILY Furosemide (Lasix) 20 MG PO DAILY Trazodone (Desyrel) 100 MG PO BEDTIME PRN INSOMNIA Clopidogrel Bisulfate (Plavix) 75 MG PO DAILY Past Medical History: Reports: Coronary artery disease, Hypertension, Dyslipidemia. Additional Medical History History of NM Past Surgical History: Reports: CABG. Additional Surgical History Cardiac stents, right hip hardware Alcohol Use Alcohol use Drug Use Denies recreational drugs Physical Exam Vital Signs Vital Signs First Documented: Result Date Time Pulse Ox 97 12/05 1152 B/P 115/74 12/05 115 B/P Mean 87 12/06 1151 O2 Delivery Room air 12/06 1151 Temp 36.9 12/06 1151 Pulse 85 12/05 115 Resp 14 12/06 1151 Last Documented: Result Date Time Pulse Ox 97 12/06 1151 B/P 115/74 12/06 1151 B/P Mean 87 12/06 1151 O2 Delivery Room air 12/06 1151 Temp 36.9 12/06 1151 Pulse 85 12/06 1151 Resp 14 12/06 1151 Review of Vital Signs Reviewed Focused PE General/Const General/Const Awake, Alert, No acute distress, Well appearing, Well developed , Well hydrated, Well nourished, Cooperative, Not toxic appearing Eyes Eyes Atraumatic, PERRL, EOMI Ears/Nose/Throat Ears/Nose/Throat Atraumatic, Airway patent, Mucous membranes moist, Pharynx NL, No peritonsillar abscess, No pooling of secretions, No trismus, Tympanic membs NL, Ext aud canal NL, Mastoid area NL, Nose exam NL, No sinus tenderness, No facial swelling, Gums/dentition NL Resp/Chest Respiratory/Chest Atraumatic, Breath sounds NL, Breath sounds = bilat, No respiratory distress, No rales, No rhonchi, No wheezing, No retractions, No stridor, No chest tenderness, No chest wall deformity, No crepitus Cardiovascular Cardiovascular Heart rate NL, Regular rhythm, Heart sounds NL, No gallop, No murmurs, No rubs, Cap refill not delayed, Peripheral circulation NL, Pulses = bilaterally, No gross BP differential Interpretation Diagnostics Lab Results Interpretation Results Laboratory Tests: 12/05 12/05 1205 1216 Other Body Source POC Nasal Influenza A (NEGATIVE) Negative POC Nasal Influenza B (NEGATIVE) Negative Serology SARS CoV-2 RNA Rapid GURINDER (Negative) Negative Microbiology: Date/Time Procedure - Status Source Growth 12/05 120 Influenza Virus Type B Antigen - COLB NASAL 12/05 120 Influenza Virus Type A Antigen - COLB NASAL Recent Impressions: RADIOLOGY - XR CHEST 2 V 12/05 1232 Report Impression - Status: SIGNED Entered: 12/06/2023 1247 IMPRESSION: Minimal residual opacities in the right lower lobe, significantly improved from prior. Impression By: [email or web address] - Crystal Khan MD Imaging Statement Radiographic studies reviewed and considered in the medical decision-making. Point of Care Testing Pulse Oximetry Pulse Ox % 97 On: Room air Interpretation Interpreted by me, Pulse oximetry normal Time 1155 Re-Evaluation MDM Differential Diagnosis Differential Diagnosis Allergic reaction, Asthma exacerbation, Cough variant asthma, Influenza, Pneumonia, Pneumonia, bacterial Patient Discharge Departure Vital Signs/Condition Vital Signs First Documented: Result Date Time Pulse Ox 97 12/05 1152 B/P 115/74 12/05 1152 B/P Mean 87 12/05 1152 O2 Delivery Room air 12/05 1152 Temp 36.9 12/05 1152 Pulse 85 10 1152 Resp 14 12/05 1152 Last Documented: Result Date Time Pulse Ox 97 12/05 1152 B/P 115/74 12/05 1152 B/P Mean 87 12/05 1152 O2 Delivery Room air 12/05 1152 Temp 36.9 12/05 1152 Pulse 85 12/05 1152 Resp 14 12/05 1152 All vital signs available at the time of this entry have been reviewed. Condition Stable Clinical Impression Clinical Impression Primary Impression: RIGHT LOWER LOBE PNEUMONIA Secondary Impressions: Acute cough Disposition Decision Discharge )( Discharged to Home Yes )( Time 1324 )( Date 12/06/23 Discharge/Care Plan Counseled Regarding Diagnosis, Imaging studies, Prescriptions, Need for follow- up, When to return to ED (Auto) Prescriptions Current Visit Scripts Amoxicillin/Clav K (Amox-Clav 875/125 Mg) 875 MG PO Q12H Amoxicillin/Clav K (Amox-Clav 875/125 Mg) 875 MG PO Q12H #20 TABS Albuterol (Albuterol HFA 90 MCG/ACT) 2 PUFF INH RTQ4H PRN PRN DYSPNEA/WHEEZING Albuterol (Albuterol HFA 90 MCG/ACT) 2 PUFF INH RTQ4H PRN PRN DYSPNEA/ WHEEZING #9 GM dispense one aerospacer device Referrals Provider Referral: Joey Daily MD Address: [address], [address] [place] [address] Provider Referral: Rosario Torres MD Address: [address] [facility], [address] [place] [address] at 8470 RPT #:[id number] END OF REPORT [facility] 2023-11-23 11:46:00 [facility] ([facility]) Hospitalist D/C Summary REPORT #: [id number] REPORT STATUS: Signed DATE: 11/23/23 TIME: 1146 PATIENT: KOTA MONTES UNIT #: [id number] ROOM #: [id number] BED: 1 : 61 AGE: 63 SEX: M ATTEND: Lorraine Delgado MD ADM AUTHOR: Catalina Ivy MD ATTENTION *EDITS and/or ADDENDA must be made in Patient Keeper for this note. * * Edits and ammendments created in [employer] are not visible * * in Patient Keeper or the legal medical record ([facility]). * -- PROBLEMS/PROCEDURES -- ADMISSION DATE: 11/22/23 ADMITTING DIAGNOSES: - Hyperlipidemia - Hypertension - Systolic dysfunction with acute on chronic heart failure DISCHARGE DATE: 11/23/23 DISCHARGE DIAGNOSES: - Hyperlipidemia - Hypertension - Systolic dysfunction with acute on chronic heart failure -- HOSPITAL COURSE -- HOSPITAL COURSE: 63-year-old male with history of hypertension hyperlipidemia coronary artery disease status post CABG x 2 with PCI here for 25-30% anxiety depression disorder presented to ER secondary to shortness of breath for 1 day Noted to have changes of congestive heart failure he was admitted to the hospital placed on IV Lasix Cardiology was consulted patient was feeling better wanting to go home did not wait and to wait until cardiology evaluated him he signed AGAINST MEDICAL ADVICE and 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 -- DISCHARGE MEDICATIONS -- ALLERGIES: No Known Allergies (UNKNOWN - Allergy) -- DISCHARGE INSTRUCTIONS -- ADDTIONAL DISCHARGE INSTRUCTIONS: Emergency Instructions: The patient was instructed to present to the nearest Emergency Department or call 911 should their symptoms return or worsen.; -- OBJECTIVE -- VITALS (11/21 11:46 - 11/22 11:46): Temperature F: 98.0 (97.9 - 98.0) Temperature C: 36.5 (36.5 - 36.7) Temperature source: Oral Pulse Rate 85 (79 - 104) Respiratory rate: 16 (13 - 23) Blood pressure: 125/79 (118/61 - 151/93) Blood pressure source: Non-invasive monitor I/Os (11/21 07:00 - 11/22 07:00): Net -2,500 Output 2,500 -EXAM- GENERAL: Well developed, well nourished, in no apparent distress. Alert oriented x 3 HEAD: Normocephalic, atraumatic. EYES: PERRL, EOM intact, conjunctiva and sclera clear, lids normal. MOUTH: moist NECK: No masses, no thyromegaly,trachea midline. CHEST: Grossly normal appearance. LUNGS: Good air entry a few rales noted at the base HEART: S1,S2,Normal,no murmur ABDOMEN: soft,non tender,no masses,BS+ EXTREMITIES: No clubbing, no cyanosis, no edema. -- DATA -- LABS CBC W/AUTO DIFF (11/23/23 05:11) WHITE BLOOD CELL 8.4 RED BLOOD CELL 5.11 HEMOGLOBIN 15.6 HEMATOCRIT 46.3 MEAN CELL VOLUME 91 MEAN CELL HGB 30.5 MEAN CELL HGB CONCENTRATION 33.7 RED CELL DISTRIBUTION WIDTH 15.1 H PLATELET COUNT 222 MEAN PLATELET VOLUME 10.1 NEUTROPHIL % 73.5 IMMATURE GRANULOCYTE % 0.2 LYMPHOCYTE % 18.4 MONOCYTE % 6.8 EOSINOPHIL % 0.7 BASOPHIL % 0.4 NUCLEATED RBC % 0.0 NEUTROPHIL # 6.16 IMMATURE GRANULOCYTE # 0.020 LYMPHOCYTE # 1.54 MONOCYTE # 0.57 EOSINOPHIL # 0.06 BASOPHIL # 0.03 NUCLEATED RBC # 0.000 BASIC METABOLIC PANEL (11/23/23 05:11) SODIUM 137 POTASSIUM 3.9 CHLORIDE 103 CARBON DIOXIDE 26 ANION GAP 11.9 GLUCOSE 110H H BLOOD UREA NITROGEN 14 GLOMERULAR FILTRATION RATE >=60 max estimate CREATININE 1.1 BUN/CREATININE RATIO 12.7 CALCIUM 9.7 TROP-I HIGH SEN (11/23/23 05:11) TROP-I HIGH SENSITIVITY 26 TROP-I HIGH SEN (11/23/23 01:58) TROP-I HIGH SENSITIVITY 38 BNP (11/22/23 23:15) B-TYPE NATRIURETIC PEPTIDE 215 H LIP (11/22/23 23:15) LIPASE 42 CBC W/AUTO DIFF (11/22/23 23:15) WHITE BLOOD CELL 8.8 RED BLOOD CELL 5.14 HEMOGLOBIN 15.5 HEMATOCRIT 46.9 MEAN CELL VOLUME 91 MEAN CELL HGB 30.2 MEAN CELL HGB CONCENTRATION 33.0 RED CELL DISTRIBUTION WIDTH 15.1 H PLATELET COUNT 208 MEAN PLATELET VOLUME 9.4 NEUTROPHIL % 67.4 IMMATURE GRANULOCYTE % 0.3 LYMPHOCYTE % 23.5 MONOCYTE % 6.9 EOSINOPHIL % 1.4 BASOPHIL % 0.5 NUCLEATED RBC % 0.0 NEUTROPHIL # 5.95 IMMATURE GRANULOCYTE # 0.030 LYMPHOCYTE # 2.07 MONOCYTE # 0.61 EOSINOPHIL # 0.12 BASOPHIL # 0.04 NUCLEATED RBC # 0.000 BASIC METABOLIC PANEL (11/22/23 23:15) SODIUM 133L L POTASSIUM 3.7 CHLORIDE 100 CARBON DIOXIDE 27 ANION GAP 9.7 GLUCOSE 109H H BLOOD UREA NITROGEN 15 GLOMERULAR FILTRATION RATE >=60 max estimate CREATININE 1.3 BUN/CREATININE RATIO 11.5 L CALCIUM 9.8 LIVER FUNCTION PANEL (11/22/23 23:15) TOTAL PROTEIN 8.0 ALBUMIN 4.8 GLOBULIN 3.2 BILIRUBIN TOTAL 0.6 BILIRUBIN DIRECT 0.2 BILIRUBIN INDIRECT 0.4 SGOT/AST 20 SGPT/ALT 19 ALKALINE PHOSPHATASE 134 H MAG (11/22/23 23:15) MAGNESIUM 1.8 TROP-I HIGH SEN (11/22/23 23:15) TROP-I HIGH SENSITIVITY 28 -- QUALITY -- -HEART FAILURE: DC ON BB,ACEI/ARB- LVEF: <40% BETA-MIGUELANGEL RX AT DC: Yes ACEI/ARB RX AT DC: Yes Signed in PatientKeeper by Catalina Ivy MD on 11/24/23 at 11:48 at 1148 ATTENTION *EDITS and/or ADDENDA must be made in Patient Keeper for this note. * * Edits and ammendments created in [facility] are not visible * * in Patient Keeper or the legal medical record ([facility]). * [facility] #: [id number] END OF REPORT [facility] 2023-11-23 11:11:00 [facility] ([facility]) Hospitalist H P REPORT #: [id number] REPORT STATUS: Signed DATE: 11/23/23 TIME: 1111 PATIENT: KOTA MONTES UNIT #: [id number] ROOM #: [id number] BED: 1 : 61 AGE: 63 SEX: M ATTEND: Lorraine Delgado MD ADM AUTHOR: Catalina Ivy MD ATTENTION *EDITS and/or ADDENDA must be made in Patient Keeper for this note. * * Edits and ammendments created in [facility] are not visible * * in Patient Keeper or the legal medical record ([facility]). * -- HISTORY -- ADMISSION DATE: 2023-11-22 PRIMARY CARE PROVIDER: Primary or Family Physician, No CHIEF COMPLAINT: Shortness of breath for 1 day HPI: 63-year-old male with history of hypertension hyperlipidemia coronary artery disease status post CABG x 2 with PCI here for 25-30% anxiety depression disorder presented to ER secondary to shortness of breath for 1 day denies any chest pain fever cough PAST MEDICAL HISTORY: hypertension hyperlipidemia coronary artery disease status post CABG x 2 with PCI here for 25-30% anxiety depression disorder PAST SURGICAL HISTORY: Cardiac bypass surgery, PCI FAMILY HISTORY: Hypertension heart disease -SOCIAL HISTORY- -TOBACCO USE- DETAILS/COMMENTS: Quit smoking -ALCOHOL USE- DETAILS/COMMENTS: Quit drinking alcohol -DRUG USE- DETAILS/COMMENTS: Denies -- ALLERGIES/HOME MEDS -- ALLERGIES: No Known Allergies (UNKNOWN - Allergy) HOME MEDICATIONS: Aspirin EC Tab (Ecotrin Tab) 81 MG PO DAILY Atorvastatin Tab (Lipitor Tab) 40 MG PO BEDTIME Celecoxib Cap (CeleBREX Cap) 200 MG PO DAILY Clopidogrel Tab (Plavix Tab) 75 MG PO DAILY Furosemide Tab (Lasix Tab) 20 MG PO DAILY Lexapro tab (escitalopram oxalate) 20 MG PO DAILY Metoprolol Tartrate Tab (Lopressor Tab) 12.5 MG PO BID Potassium Chlor Tab.ER (K Dur Tab) 20 MEQ PO DAILY Pregabalin Cap (Lyrica Cap) 50 MG PO BID Thiamine Tab (Vitamin B-1 Tab) 100 MG PO DAILY Ticagrelor Tab (Brilinta Tab) 90 MG PO Q12HR traZODone Tab (Desyrel Tab) 100 MG PO BEDTIME -- SUBJECTIVE -- -REVIEW OF SYSTEMS- GENERAL: Negative for fever, malaise, fatigue. EYES: Negative for blurry vision. No diplopia. RESPIRATORY: Shortness of breath CARDIOVASCULAR: As per HPI GASTROINTESTINAL: Negative for abdominal pain or nausea. No emesis. No diarrhea. GENITOURINARY: Negative for dysuria, frequency, or urgency. No gross hematuria. NEUROLOGICAL: Negative for headache. No vertigo. Denies paresthesias. -- OBJECTIVE -- VITALS (11/21 11:11 - 11/22 11:11): Temperature F: 98.0 (97.9 - 98.0) Temperature C: 36.7 (36.5 - 36.7) Temperature source: Oral Pulse Rate 93 (79 - 104) Respiratory rate: 16 (13 - 23) Blood pressure: 124/86 (118/61 - 151/93) Blood pressure source: Non-invasive monitor I/Os (11/21 07:00 - 11/22 07:00): Net -2,500 Output 2,500 -EXAM- GENERAL: Well developed, well nourished, in no apparent distress. Alert oriented x 3 HEAD: Normocephalic, atraumatic. EYES: PERRL, EOM intact, conjunctiva and sclera clear, lids normal. MOUTH: moist NECK: No masses, no thyromegaly,trachea midline. CHEST: Grossly normal appearance. LUNGS: Good air entry a few rales noted at the base HEART: S1,S2,Normal,no murmur ABDOMEN: soft,non tender,no masses,BS+ EXTREMITIES: No clubbing, no cyanosis, no edema. NEUROLOGICAL: Cranial nerves intact able to move all extremities normally -- DATA -- LABS CBC W/AUTO DIFF (11/23/23 05:11) WHITE BLOOD CELL 8.4 RED BLOOD CELL 5.11 HEMOGLOBIN 15.6 HEMATOCRIT 46.3 MEAN CELL VOLUME 91 MEAN CELL HGB 30.5 MEAN CELL HGB CONCENTRATION 33.7 RED CELL DISTRIBUTION WIDTH 15.1 H PLATELET COUNT 222 MEAN PLATELET VOLUME 10.1 NEUTROPHIL % 73.5 IMMATURE GRANULOCYTE % 0.2 LYMPHOCYTE % 18.4 MONOCYTE % 6.8 EOSINOPHIL % 0.7 BASOPHIL % 0.4 NUCLEATED RBC % 0.0 NEUTROPHIL # 6.16 IMMATURE GRANULOCYTE # 0.020 LYMPHOCYTE # 1.54 MONOCYTE # 0.57 EOSINOPHIL # 0.06 BASOPHIL # 0.03 NUCLEATED RBC # 0.000 BASIC METABOLIC PANEL (11/23/23 05:11) SODIUM 137 POTASSIUM 3.9 CHLORIDE 103 CARBON DIOXIDE 26 ANION GAP 11.9 GLUCOSE 110H H BLOOD UREA NITROGEN 14 GLOMERULAR FILTRATION RATE >=60 max estimate CREATININE 1.1 BUN/CREATININE RATIO 12.7 CALCIUM 9.7 TROP-I HIGH SEN (11/23/23 05:11) TROP-I HIGH SENSITIVITY 26 TROP-I HIGH SEN (11/23/23 01:58) TROP-I HIGH SENSITIVITY 38 BNP (11/22/23 23:15) B-TYPE NATRIURETIC PEPTIDE 215 H LIP (11/22/23 23:15) LIPASE 42 CBC W/AUTO DIFF (11/22/23 23:15) WHITE BLOOD CELL 8.8 RED BLOOD CELL 5.14 HEMOGLOBIN 15.5 HEMATOCRIT 46.9 MEAN CELL VOLUME 91 MEAN CELL HGB 30.2 MEAN CELL HGB CONCENTRATION 33.0 RED CELL DISTRIBUTION WIDTH 15.1 H PLATELET COUNT 208 MEAN PLATELET VOLUME 9.4 NEUTROPHIL % 67.4 IMMATURE GRANULOCYTE % 0.3 LYMPHOCYTE % 23.5 MONOCYTE % 6.9 EOSINOPHIL % 1.4 BASOPHIL % 0.5 NUCLEATED RBC % 0.0 NEUTROPHIL # 5.95 IMMATURE GRANULOCYTE # 0.030 LYMPHOCYTE # 2.07 MONOCYTE # 0.61 EOSINOPHIL # 0.12 BASOPHIL # 0.04 NUCLEATED RBC # 0.000 BASIC METABOLIC PANEL (11/22/23 23:15) SODIUM 133L L POTASSIUM 3.7 CHLORIDE 100 CARBON DIOXIDE 27 ANION GAP 9.7 GLUCOSE 109H H BLOOD UREA NITROGEN 15 GLOMERULAR FILTRATION RATE >=60 max estimate CREATININE 1.3 BUN/CREATININE RATIO 11.5 L CALCIUM 9.8 LIVER FUNCTION PANEL (11/22/23 23:15) TOTAL PROTEIN 8.0 ALBUMIN 4.8 GLOBULIN 3.2 BILIRUBIN TOTAL 0.6 BILIRUBIN DIRECT 0.2 BILIRUBIN INDIRECT 0.4 SGOT/AST 20 SGPT/ALT 19 ALKALINE PHOSPHATASE 134 H MAG (11/22/23 23:15) MAGNESIUM 1.8 TROP-I HIGH SEN (11/22/23 23:15) TROP-I HIGH SENSITIVITY 28 ADDITIONAL COMMENTS: Chest x-ray shows cardiomegaly with pulmonary vascular congestion airspace opacities concerning for pulmonary edema -- ASSESSMENT AND PLAN -- PROBLEMS: 1: Systolic dysfunction with acute on chronic heart failure A/P: Patient admitted to monitored bed Will continue IV Lasix 20 mg every 12 hours I's and O's Cardiology notified 2: Hypertension A/P: Resume home medication we will monitor 3: Hyperlipidemia A/P: Continue statin CONSULTANTS: Cardiology ADDITIONAL COMMENTS: Lovenox for DVT prophylaxis CODE STATUS full code Discharge when stable and cleared by end user consultant Total time spent 45 minutes Signed in PatientKeeper by Catalina Ivy MD on 11/23/23 at 11:19 at 1119 ATTENTION *EDITS and/or ADDENDA must be made in Patient Keeper for this note. * * Edits and ammendments created in [employer] are not visible * * in Patient Keeper or the legal medical record (HPF). * RPT #: [id number] END OF REPORT [facility] 2023-11-23 11:02:00 [facility] ([facility]) Med Order Sheet REPORT #: [id number] REPORT STATUS: Signed DATE: 11/23/23 TIME: 1102 PATIENT: KOTA MONTES UNIT #: [id number] ROOM #: NC.3205 BED: 1 : 61 AGE: 63 SEX: M ATTEND: Lorraine Dlegado MD ADM AUTHOR: Catalina Ivy MD ATTENTION *EDITS and/or ADDENDA must be made in Patient Keeper for this note. * * Edits and ammendments created in [facility] are not visible * * in Patient Keeper or the legal medical record ([facility]). * Admission Medication Reconciliation -- CONTINUED / CHANGED HOME MEDICATIONS -- Home: Aspirin EC Tab (Ecotrin Tab) 81 MG PO DAILY Hosp: Existing: Aspirin Chewable Tab (Aspirin Chewable Tab) 81MG PO DAILY stopping on 12/22 at 09:01 Home: Atorvastatin Tab (Lipitor Tab) 40 MG PO BEDTIME Hosp: Atorvastatin Tab (Lipitor Tab) 40 MG PO BEDTIME Home: Celecoxib Cap (CeleBREX Cap) 200 MG PO DAILY Hosp: Celecoxib Cap (CeleBREX Cap) 200 MG PO Now and then DAILY Home: Furosemide Tab (Lasix Tab) 20 MG PO DAILY Hosp: Furosemide Tab (Lasix Tab) 20 MG PO DAILY Home: Lexapro tab (escitalopram oxalate) 20 MG PO DAILY Hosp: Lexapro tab (escitalopram oxalate) 20 MG PO Now and then DAILY Home: Metoprolol Tartrate Tab (Lopressor Tab) 12.5 MG PO BID Hosp: Metoprolol Tartrate Tab (Lopressor Tab) 12.5 MG PO Now and then BID Home: Potassium Chlor Tab.ER (K Dur Tab) 20 MEQ PO DAILY Hosp: Potassium Chlor Tab.ER (K Dur Tab) 20 MEQ PO Now and then DAILY Home: Pregabalin Cap (Lyrica Cap) 50 MG PO BID Hosp: Pregabalin Cap (Lyrica Cap) 50 MG PO Now and then BID Home: Thiamine Tab (Vitamin B-1 Tab) 100 MG PO DAILY Hosp: Thiamine Tab (Vitamin B-1 Tab) 100 MG PO Now and then DAILY Home: Ticagrelor Tab (Brilinta Tab) 90 MG PO Q12HR Hosp: Ticagrelor Tab (Brilinta Tab) 90 MG PO Now and then Q12HR Home: traZODone Tab (Desyrel Tab) 100 MG PO BEDTIME PRN insomnia Hosp: traZODone Tab (Desyrel Tab) 100 MG PO BEDTIME PRN insomnia -- STOPPED HOME MEDICATIONS -- Home: Clopidogrel Tab (Plavix Tab) 75 MG PO DAILY at 1102 ATTENTION *EDITS and/or ADDENDA must be made in Patient Keeper for this note. * * Edits and ammendments created in [facility] are not visible * * in Patient Keeper or the legal medical record ([facility]PF). * [facility] #: [id number] END OF REPORT [facility] 2023-11-23 02:53:00 [facility] ([facility]) EMERGENCY PROVIDER REPORT REPORT#:[id number] REPORT STATUS: Signed DATE:11/23/23 TIME: 252 PATIENT: KOTA MONTES UNIT #: [id number] [address] : [address] AGE: 63 SEX: M PCP PHYS: No Primary or Family Physician SERVICE AUTHOR: Andrea Hernandez DO REP SRV REP SRV TM: [id number] * ALL edits or amendments must be made on the electronic/computer document * HPI-Dyspnea/Wheezing Free Text HPI Notes Free Text HPI Notes She [id number] male with past medical history of CAD (s/p cardiac stents /cardiac bypass), CHF, high cholesterol, dense via EMS with 3 days of progressively worsening dyspnea. The patient denies fevers, nausea, vomiting diaphoresis, productive cough, focal neurological deficits, chest pain. Patient does report recently eating fast food and consuming more salt than usual General Confirmed Patient Yes Patient Type New patient Initial Greet Date/Time 11/22/232248 Presentation Chief Complaint Shortness of breath Review of Systems Free Text ROS Notes Free Text ROS Notes See HPI Past Medical History - Adult Stated Complaint SOB [id number] Allergies Coded Allergies: No Known Allergies (08/30/23) Home Medications Active Scripts Metoprolol Tartrate (Lopressor) 12.5 MG PO BID Metoprolol Tartrate (Lopressor) 12.5 MG PO BID #60 TAB Prov: 08/31/23 Reported Medications Potassium Chloride Er (Klor-Con M20) 20 MEQ PO DAILY Aspirin Ec 81 MG PO DAILY Pregabalin (Lyrica) 50 MG PO BID Ticagrelor (Brilinta) 90 MG PO Q12HR Escitalopram (Lexapro) 20 MG PO DAILY Thiamine (Vitamin B-1) 100 MG PO DAILY Atorvastatin (Lipitor) 40 MG PO BEDTIME Celecoxib (Celebrex) 200 MG PO DAILY Furosemide (Lasix) 20 MG PO DAILY Trazodone (Desyrel) 100 MG PO BEDTIME PRN INSOMNIA Clopidogrel Bisulfate (Plavix) 75 MG PO DAILY Calculated Suicide Risk (nurs) No risk Past Medical History: Reports: Coronary artery disease, Hypertension, Dyslipidemia. Additional Medical History History of NM Past Surgical History: Reports: CABG. Additional Surgical History Cardiac stents, right hip hardware Alcohol Use Alcohol use Drug Use Denies recreational drugs Smoking status for patients 13 years old or older: Unknown,if ever smoked Physical Exam Vital Signs Vital Signs First Documented: Result Date Time Pulse Ox 94 11/21 2249 B/P 132/85 11/21 2249 B/P Mean 100 11/21 2249 O2 Delivery Room air 11/21 224 Pulse 97 11/21 2249 Resp 17 11/21 2249 O2 Flow Rate 6 11/21 2328 Temp 36.6 11/21 2328 Last Documented: Result Date Time Pulse Ox 98 11/22 0230 B/P 130/72 11/22 0230 B/P Mean 95 11/22 0230 Pulse 84 11/22 0230 Resp 19 11/22 0230 O2 Delivery Nasal cannula 11/22 0200 O2 Flow Rate 6 11/22 0200 Temp 36.7 11/22 0200 Review of Vital Signs Reviewed Free Text PE Notes Free Text PE Notes General: Chronically ill-appearing, acutely weak appearing HEENT: Respiratory: Tachypnea, respiratory distress Cardiovascular: Regular heart rate rhythm, no murmurs rubs or gallops GI: Abdomen soft, nontender, nonperitoneal : MSK: Neuro: A O x 4, 5 out of 5 strength extremities x 4 Skin: Psych: Interpretation Diagnostics Lab Results Interpretation Results Laboratory Tests 11/22/232314: [Embedded Image Not Available] Laboratory Tests: 11/21 Chemistry Sodium (136 - 145 mmol/L) 133 L Potassium (3.5 - 5.1 mmol/L) 3.7 Chloride (98 - 107 mmol/L) 100 Carbon Dioxide (20 - 31 mmol/L) 27 Anion Gap (2.0 - 16.0) 9.7 BUN (9 - 23 mg/dL) 15 Creatinine (0.7 - 1.3 mg/dL) 1.3 Glomerular Filtr Rate (ml/min) >=60 max estimate BUN/Creatinine Ratio (12.0 - 20.0) 11.5 L Glucose (74 - 106 mg/dL) 109 H Calcium (8.7 - 10.4 mg/dL) 9.8 Magnesium (1.6 - 2.6 mg/dL) 1.8 Total Bilirubin (0.2 - 1.1 mg/dL) 0.6 Direct Bilirubin (0.0 - 0.3 mg/dL) 0.2 Indirect Bilirubin (0.0 - 0.8 mg/dL) 0.4 AST (<34 U/L) 20 ALT (10 - 49 U/L) 19 Total Alk Phosphatase (46 - 116 U/L) 134 H Troponin I High Sens (0 - 78 pg/mL) 28 B-Natriuretic Peptide (0 - 100 pg/mL) 215 H Total Protein (5.7 - 8.2 g/dL) 8.0 Albumin (3.4 - 5.0 g/dL) 4.8 Globulin (2.3 - 3.5 g/dL) 3.2 Lipase (12 - 53 U/L) 42 Hematology WBC (4.5 - 11.0 10 3/uL) 8.8 RBC (4.30 - 5.90 10 6/uL) 5.14 Hgb (14.0 - 18.0 g/dL) 15.5 Hct (40.0 - 55.0 %) 46.9 MCV (81 - 102 fL) 91 MCH (26.0 - 34.0 pg) 30.2 MCHC (31.0 - 37.0 g/dL) 33.0 RDW (11.6 - 14.4 %) 15.1 H Plt Count (150 - 400 10 3/uL) 208 MPV (9.0 - 12.6 fL) 9.4 Neut % (Auto) (33.0 - 76.0 %) 67.4 Lymph % (Auto) (14.0 - 56.4 %) 23.5 Williams % (Auto) (0.0 - 12.9 %) 6.9 Eos % (Auto) (0.0 - 7.0 %) 1.4 Baso % (Auto) (0 - 2.0 %) 0.5 Neut # (Auto) (1.5 - 7.0 10 3/uL) 5.95 Lymph # (Auto) (1.50 - 4.00 10 3/uL) 2.07 Williams # (Auto) (0.20 - 0.80 10 3/uL) 0.61 Eos # (Auto) (0.0 - 0.5 10 3/uL) 0.12 Baso # (Auto) (0.0 - 0.1 10 3/uL) 0.04 Abs Immat Gran (auto) (0.000 - 0.100 x10 3/uL) 0.030 Immature Gran % (0.0 - 1.0 %) 0.3 Nucleated RBC % (0 - 0.2 %) 0.0 Nucleated RBCs # (0.000 - 0.012 10 3/uL) 0.000 11/22 0158 Chemistry Troponin I High Sens (0 - 78 pg/mL) 38 Recent Impressions: RADIOLOGY - XR CHEST 1 V 11/21 7490 Report Impression - Status: SIGNED Entered: 11/22/2023 5231 IMPRESSION: Cardiomegaly with pulmonary vascular congestion and bilateral airspace opacities concerning for pulmonary edema. Coexisting infectious process cannot be excluded. Impression By: [email or web address] - Jacquie Underwood MD Lab Imaging Statement Laboratory radiographic studies reviewed and considered in the medical decision-making. Re-Evaluation MDM Free Text MDM Notes Additional Text *Independent review and interpretation of any and all diagnostics studies were performed by me: #DDX includes but is not limted to: STEMI versus NSTEMI versus CHF versus pneumonia versus pulmonary embolism. #Interpretation and Discussion: Patient presents with acute hypoxic respiratory failure. Patient critically ill requires emergent invention. Patient transition to supplemental oxygen. Patient requiring supplemental oxygen to pulse ox of 90%. EKG shows nonspecific ST-T changes. Troponin within normal limits but on the high end of normal. Cannot rule out ACS. Chest x-ray shows pulmonary vascular congestion. BNP is elevated. This consistent with acute decompensated heart failure. Patient given IV Lasix. CBC and chemistry within normal limits. Doubt pneumonia. #Re-Evaluation Upon reevaluation, patient remains acutely ill. Discussed ED workup with patient. Recommend admission for further management evaluation. Patient agreeable plan. Answered all questions prior to admission. #Discussions of Manamgement with Other Providers: -Hospitalist: Hospitalist recommends continued management as initiated in the ED. Will adjust plan as necessary after evaluation patient. #Dx: -Primary: Acute decompensated heart failure. -Secondary: Acute hypoxic respiratory failure. #Dispo: Admissson Level of Care: Discussed ED workup and Diagnosis with patient. Recommned hospital admission for further management and evauluation. Discussed risks and benefits of admission versus non-admission and alternative options. The patient acknowledged, understood, and is agreeable to admission. Invited and answered all questions. Discussed patient with hospitalist in depth. Hosptialist recommends continuation of managment started in Emergency Department. Hosptialist Accepts Admission. Results Pending of which hospitalist will F/U: External Chart Review: External Chart Review: EMS facesheet, outisde facility documentation, most recent hosptial discharge summary and/or inaptient notes, if available. #EMS Interventions: Transporation #Comorbidities Affecting Treatment: See HPI #Independent Historian: Additional information provided by EMS, patient's family or friends, patient's guardian and/or patient's caregiver for more detailed immediate past medical history and corroboration #Complexity: All of the Below -Acute or Chronic Illness That Poses A Threat to Life or Bodily Function -Acute Illness with Systemic Symptoms -Chronic Illness with Exacerbation ED Course Medication(s) Ordered Medication(s) Ordered: Central Nervous System Agents Sig/Alfonzo Start time Last Medication Dose Route Stop Time Status Admin Lorazepam 1 MG X1ED STA 11/21 2318 DC 11/21 IV 11/21 2319 2325 Aspirin 324 MG X1ED STA 11/21 2250 DC PO 11/21 2251 Electrolytic, Caloric, And Leandro Sig/Alfonzo Start time Last Medication Dose Route Stop Time Status Admin Furosemide 80 MG X1ED STA 11/22 0024 DC 11/22 IV 11/22 0025 0031 Sodium Chloride 1,000 ML X1ED STA 11/21 2250 DC IV 11/21 2349 MDM-Independent Interpretation My ECG Interpretation 11/22/2023; 2254 Sinus tachycardia 107 bpm, normal axis, prolonged QT, left bundle branch block, nonspecific ST-T change Patient Discharge Departure Vital Signs/Condition Vital Signs First Documented: Result Date Time Pulse Ox 94 11/21 2248 B/P 132/85 11/21 2248 B/P Mean 100 11/21 2248 O2 Delivery Room air 11/21 2248 Pulse 97 11/21 2248 Resp 17 11/21 2248 O2 Flow Rate 6 11/22 2327 Temp 36.6 11/22 2327 Last Documented: Result Date Time Pulse Ox 98 11/22 229 B/P 130/72 11/22 229 B/P Mean 95 11/22 229 Pulse 84 11/22 0230 Resp 19 11/220 O2 Delivery Nasal cannula 11/22 199 O2 Flow Rate 6 11/22 199 Temp 36.7 11/220 All vital signs available at the time of this entry have been reviewed. Condition Guarded Clinical Impression Clinical Impression Primary Impression: Acute decompensated heart failure Secondary Impressions: Acute hypoxic respiratory failure Time of Impression 302 Disposition Decision Hospitalize Hosp Physician Name Lorraine Delgado [facility] Physician Hospitalist Request Time 303 Request Date 11/23/23 )( Accepts Hospitalization Yes )( Reason for Hospitalization acute chf )( Accepted Time 303 )( Accepted Date 11/23/23 Call Information will see patient, agrees with eval, agrees with plan Critical Care Time Spent (minutes): 45 Services Performed Patient management by me, Time spent at bedside, Reviewing test results, Reviewing imaging, Discussing patient care, Documentation in record, Time with fam/surrogate Separately billable procedures excluded from time. Patient was critically ill due to: Acute hypoxic respiratory failure: Threat to cardiopulmonary system, requiring supplemental oxygen to keep pulse ox above 90% CHF: Threat to cardiopulmonary system, requiring cardiac monitoring, IV Lasix My treatment and management were: In addition to interventions listed above, Chart Review, Image Interpretation, Lab Interpreation. Cardiac Monitoring, Frequent Neurochecks,Frequent Airway Reassments, Frequent Reassessments, Multiple Conversations with Patient/Patients family and/or Guardian, Medical Managment,, Documentation, Patient Education and Counseling, Consult Managment, Admission Process CC Note 1 Total critical care time [45] minutes. Total critical care time documented does not include time spent on separately billed procedures or the services of residents, students, nurses or physician assistants. I personally saw and examined the patient. I have reviewed all diagnostic interpretations and treatment plans as written. I was present for the carias portions of any procedures performed and the inclusive time noted in any critical care statement. Critical care time includes patient management by me, time spent at the patients bedside, time to review lab and imaging results, discussing patient care, documentation in the medical record, and time spent with the family or caregiver. at 1753 RPT #:[id number] END OF REPORT [facility] 2023-11-22 22:54:00 [id number] [address] PATIENT NAME: KOTA MONTES ADMIT DATE: 11/22/23 ACCOUNT NO: [id number] ROOM NO: NC.3205 AGE: 63 REPORT TYPE: eELECTROCARDIOGRAM SEX: M ADMITTING PHYSICIAN:Lorraine Delgado MD ATTENDING PHYSICIAN:Lorraine Delgado MD Order: [id number] Test Reason : CHEST PAIN Test Date/Time Stamp: SatNov 22 2023 22:54:36 Blood Pressure : / mmHG Vent. Rate : 107 BPM Atrial Rate : 107 BPM P-R Int : 148 ms QRS Dur : 160 ms QT Int : 386 ms P-R-T Axes : 068 001 010 degrees QTc Int : 515 ms Sinus tachycardia Possible Left atrial enlargement Left bundle branch block Abnormal ECG When compared with ECG of 29-AUG-2023 18:35, Left bundle branch block is now present Confirmed by ALBINA CABRERA ([id number]) on 11/24/2023 12:26:18 PM Referred By: Self Referred Confirmed by:ALBINA CABRERA at [address] [address] PATIENT NAME: KOTA MONTES [facility] 2023-09-02 07:12:00 [id number] [place] [address] PATIENT NAME: KOTA MONTES ADMIT DATE: 08/29/23 ACCOUNT NO: [id number] ROOM NO: [id number].[id number] AGE: 62 REPORT TYPE: eECHOCARDIOGRAM REPORT SEX: M ADMITTING PHYSICIAN: Sherrie Stein MD ATTENDING PHYSICIAN: Sherrie Stein MD *[facility]* [address] [place], [place] [id number] Transthoracic Echocardiogram Patient: Kota Montes Study Date: 08/30/2023 BP: URN: [id number] Location: : 1960 Age: 62 Gender: M Height: 68 in / 172.7 cm Weight: 166 lb / 75.3 kg BMI/BSA: 25.2 kg/m 2 / 1.91 m 2 *Ordering Physician: * Sherrie Stein *Interpreting Physician: * Kurtis Lynch M.D. *Boat Washer: * Alma Lara Indications: Hypoxia. Study data: Transthoracic echocardiogram. Complete 2D, complete spectral Doppler, and color Doppler. Location: Bedside. Patient room number: 307. Findings Left ventricle: The cavity size is normal. Wall thickness is normal. Systolic function is moderately reduced. The estimated ejection fraction is 30-34%. Left ventricular diastolic function parameters are normal. Basal inferior wall is akinetic. Right ventricle: The cavity size is normal. Systolic function is normal. Left atrium: The atrium is normal in size. Right atrium: The atrium is normal in size. Aorta: PATIENT NAME: KOTA MONTESLLO Aortic root: The root is normal-sized. Aortic valve: The valve is trileaflet. The leaflets are mildly calcified. There is no evidence of stenosis. There is mild regurgitation. Mitral valve: The valve is structurally normal. There is no evidence of stenosis. There is mild to moderate regurgitation. Tricuspid valve: The valve is structurally normal. There is trivial regurgitation. Pulmonic valve: The valve is structurally normal. There is mild regurgitation. Pericardium: There is no pericardial effusion. Pulmonary arteries: The main pulmonary artery is normal-sized. Systemic veins: Inferior vena cava: The IVC is normal-sized. Measurements Left ventricle Value Ref 07/31/2023 JUSTIN, LAX 5.3 cm 4.2 - 5.8 4.5 ESD, LAX 5.0 cm 2.5 - 4.0 4.4 FS, LAX 6 % 43 3 JUSTIN major ax, A2C 8.9 cm --------- 8.8 ESD major ax, A2C 8.5 cm --------- 7.4 IVS, ED 1.3 cm 0.6 - 1.0 1.4 ESD 5.0 cm 2.5 - 4.0 4.4 FS 6 % 43 3 PW, ED 1.2 cm 0.6 - 1.0 1.3 IVS/PW, ED 1.03 --------- 1.06 EF 13 % 52 - 72 8 Mass 316 g 96 - 200 272 Mass/bsa 165 g/m 2 50 - 102 149 Mass/ht 2.7 72.19 g/m 2.7 --------- 62.24 EF, MM on 2D Teich. 13 % >=55 8 E', lat candice, TDI 7.9 cm/sec >=10.0 10.5 E/e', lat candice, TDI 14 <=13 6 E', med candice, TDI 4.8 cm/sec >=7.0 4.2 E/e', med candice, TDI 23 --------- 15 E', avg, TDI 6.4 cm/sec --------- 7.4 E/e', avg, TDI 17 <=14 8 LVOT Value Ref 07/31/2023 Diam, S 2.27 cm --------- 1.93 Area 4.0 cm 2 --------- 2.9 Peak latanya, S 1.05 m/sec --------- 0.9 Mean latanya, S 0.75 m/sec --------- 0.64 VTI, S 20.6 cm --------- 14.9 Peak grad, S 4 mm Hg --------- 3 Mean grad, S 3 mm Hg --------- 2 SV 83 ml --------- 43 SV/bsa 43 ml/m 2 --------- 24 Right ventricle Value Ref 07/31/2023 Pressure, S 39 mm Hg --------- PATIENT NAME: KOTA MONTES Left atrium Value Ref 07/31/2023 LA ID 3.6 cm --------- 3.8 AP dim, ES 3.6 cm 3.0 - 4.0 3.8 AP dim ES, LAX 3.6 cm 3.0 - 4.0 3.8 SI dim ES, LAX 3.6 cm --------- 3.8 Vol/bsa, S 30 ml/m 2 16 - 34 30 Vol, ES, 2-p 64 ml --------- 60 Vol/bsa, ES, 2-p 34 ml/m 2 16 - 34 33 LA/Ao root ratio 0.96 --------- 1.15 AP dim, ES MM 3.6 cm 3.0 - 4.0 3.8 LA/Ao root ratio, MM 1 --------- 1 Right atrium Value Ref 07/31/2023 Area, ES 13 cm 2 14 Area, ES, A4C 13 cm 2 14 Aortic valve Value [facility] 07/31/2023 Peak v, S 1.5 m/sec --------- 1.2 Mean v, S 0.96 m/sec --------- 0.86 VTI, S 23.4 cm --------- 21.4 Mean grad, S 4 mm Hg --------- 3 Peak grad, S 8.4 mm Hg --------- 5.8 LVOT/AV, VTI ratio 0.88 --------- 0.69 SUKHJINDER, VTI 3.55 cm 2 --------- 2.02 LVOT/AV, Vpeak ratio 0.72 --------- 0.74 SUKHJINDER, Vmax 2.91 cm 2 --------- 2.16 Mitral valve Value [facility] 07/31/2023 Mean v, D 0.87 m/sec --------- 0.5 Peak E 0.06 m/sec --------- 0.07 Peak A 0.92 m/sec --------- 0.84 VTI leaflet coapt 19.6 cm --------- 16.9 MiV/LVOT VTI 1.0 --------- 1.1 Decel time 131 ms --------- 135 PHT 24 ms --------- 36 Mean grad, D 3 mm Hg --------- 1 Peak grad, D 5.9 mm Hg --------- 2.5 Peak E/A ratio 1.21 --------- 0.73 MVA, PHT 9.3 cm 2 --------- 6.0 Tricuspid valve Value Ref 07/31/2023 TR peak v 2.4 m/sec <=2.8 1.9 Peak RV-RA grad, S 23 mm Hg --------- 14 Aortic root Value Ref 07/31/2023 Root diam 3.7 cm 2.6 - 4.1 3.3 Root diam, ED MM 3.6 cm --------- 3.8 Ascending aorta Value Ref 07/31/2023 AAo AP diam, S 4.1 cm --------- 3.9 Pulmonary artery Value Ref 07/31/2023 Pressure, S 31.4 mm Hg --------- PATIENT NAME: KOTA MONTES Systemic veins Value Ref 07/31/2023 Estimated CVP 8 mm Hg --------- Conclusions Summary: 1. Left ventricle: The cavity size is normal. Wall thickness is normal. Systolic function is moderately reduced. The estimated ejection fraction is 30-34%. Left ventricular diastolic function parameters are normal. 2. Mitral valve: There is mild to moderate regurgitation. Electronically signed by Kurtis Lynch M.D. 09/02/2023 07:12 at 0712 PATIENT NAME: KOTA MONTES [facility] 2023-08-31 11:30:00 [facility] [facility] ([facility]) Hospitalist Brief D/C Summ. REPORT #: [id number] REPORT STATUS: Signed DATE: 08/31/23 TIME: 1130 PATIENT: KOTA MONTES UNIT #: [id number] ROOM #: P.[facility]2 BED: A : 62 AGE: 62 SEX: M ATTEND: Sherrie Stein MD ADM AUTHOR: Cynthia Rabago ATTENTION *EDITS and/or ADDENDA must be made in Patient Keeper for this note. * * Edits and ammendments created in [employer] are not visible * * in Patient Keeper or the legal medical record ([facility]). * -- ADMISSION SYNOPSIS -- ADMISSION DATE: 08/29/23 ADMITTING DIAGNOSES: - Acute on chronic systolic (congestive) heart failure - Acute posthemorrhagic anemia - Acute respiratory failure with hypoxia - Acute respiratory failure with hypoxia and hypercapnia - Anxiety disorder, unspecified - Cardiogenic shock - Depression, unspecified - Heart failure, systolic, with acute decompensation - Hypertensive heart disease with heart failure DISCHARGE DATE: 08/31/23 DISCHARGE DIAGNOSES: - Acute on chronic systolic (congestive) heart failure - Acute posthemorrhagic anemia - Acute respiratory failure with hypoxia - Acute respiratory failure with hypoxia and hypercapnia - Anxiety disorder, unspecified - Cardiogenic shock - Depression, unspecified - Heart failure, systolic, with acute decompensation - Hypertensive heart disease with heart failure -- OBJECTIVE -- VITALS (08/29 11:58 - 08/30 11:58): Temperature F: 98.0 (98.0 - 98.5) Temperature C: 36.9 Temperature source: Oral Pulse Rate 102 (92 - 124) Respiratory rate: 16 (10 - 43) Blood pressure: 118/65 (56/51 - 249/248) Blood pressure source: Monitor I/Os (08/29 07:00 - 08/30 07:00): Net -3,525 Output 3,525 -EXAM- GENERAL: Well developed, well nourished, in no apparent distress. HEAD: Normocephalic, atraumatic. EYES: Pupils reactive, conjunctiva and sclera clear, without nystagmus, lids normal. EARS: Grossly normal. NOSE: No deformity, no discharge, no inflammation, no lesions. MOUTH: ET tube noted. NECK: Supple, no JVD, trachea midline. CHEST: Grossly normal appearance. LUNGS: Mechanical breaths bilaterally. + crepitations. HEART: Regular rate and rhythm, normal S1, S2, no murmurs, no rubs, no gallops, no clicks. ABDOMEN: Soft, non-tender not distended. MUSCULOSKELETAL: No deformity, moves extremities EXTREMITIES: No cyanosis, no edema. NEUROLOGICAL: Awake and responsive. No focal deficits. PULSES: Pulses normal in all extremities. SKIN: Intact without significant lesions, or rashes. -- DISCHARGE MEDICATIONS -- ALLERGIES: No Known Allergies (UNKNOWN - Allergy) DISCHARGE MEDICATIONS: Please refer to Discharge Medication list for a complete list of discharge medications Aspirin EC Tab (Ecotrin Tab) 81 MG PO DAILY Atorvastatin Tab (Lipitor Tab) 80 MG PO BEDTIME Bumetanide Tab (Bumex Tab) 1 MG PO DAILY Folic Acid Tab (Folvite Tab) 1 MG PO DAILY Lexapro tab (escitalopram oxalate) 20 MG PO DAILY Methocarbamol Tab (Robaxin Tab) 750MG PO TID, Disp: 30 tablet, Refills: 0 Metoprolol Tartrate Tab (Lopressor Tab) 12.5MG PO BID, Disp: 60 tablet, Refills: 0 Potassium Chlor Tab.ER (K Dur Tab) 20 MEQ PO DAILY Pregabalin Cap (Lyrica Cap) 50 MG PO BID Thiamine Tab (Vitamin B-1 Tab) 100 MG PO DAILY Ticagrelor Tab (Brilinta Tab) 90 MG PO Q12HR -- DISCHARGE INSTRUCTIONS -- PK DISCHARGE ORDERS: Discharge w/Instructions Details: Order number: [id number] Category: PKDC - PK DISCHARGE ORDERS Order status: Transmitted Details: Discharge order: Yes Discharge to: Home/Self Care Diet: Resume Home Diet/Feeds Cardiac Activity: Resume Normal Activity As Tolerated PCP follow up timeframe: In 1-2 weeks Notify PCP of Signs/Symptoms: Chest Pain Shortness of breath Additional Discharge Routines: PCP Follow-Up Ordered by: Cynthia Rabago Aug 31, 2023 11:02am Entered by: Cynthia Rabago Service date: Aug 31, 2023 11:01am Details: Order number: [id number] Category: PKDC - PK DISCHARGE ORDERS Order status: Transmitted Details: Does patient have any of the following conditions at discharge? None Ordered by: Cynthia Rabago Aug 31, 2023 11:02am Entered by: Cynthia Rabago Service date: Aug 31, 2023 11:01am DC - ALL eCQMS -- DATA -- ADDITIONAL COMMENTS: - Patient stable - Breathing well on RA - BP well controlled - Okay to DC home Signed in PatientKeeper by Cynthia Rabago on 08/31/23 at 12:00 at 1200 ATTENTION *EDITS and/or ADDENDA must be made in Patient Keeper for this note. * * Edits and ammendments created in [facility] are not visible * * in Patient Keeper or the legal medical record ([facility]). * RPT #: [id number] END OF REPORT [facility] 2023-08-31 11:02:00 [facility] ([facility]) Med Order Sheet REPORT #: [id number] REPORT STATUS: Signed DATE: 08/31/23 TIME: 1102 PATIENT: KOTA MONTES UNIT #: [id number] ROOM #: [id number] BED: A : 61 AGE: 62 SEX: M ATTEND: Sherrie Stein MD ADM AUTHOR: Cynthia Rabago ATTENTION *EDITS and/or ADDENDA must be made in Patient Keeper for this note. * * Edits and ammendments created in [facility] are not visible * * in Patient Keeper or the legal medical record ([facility]). * Discharge Medication Reconciliation DISCHARGE MEDICATION LIST Aspirin EC Tab (Ecotrin Tab) Dose: 81 MG PO DAILY Atorvastatin Tab (Lipitor Tab) Dose: 80 MG PO BEDTIME Bumetanide Tab (Bumex Tab) Dose: 1 MG PO DAILY Folic Acid Tab (Folvite Tab) Dose: 1 MG PO DAILY Lexapro tab (escitalopram oxalate) Dose: 20 MG PO DAILY Methocarbamol Tab (Robaxin Tab) Dose: 750MG PO TID, Disp: 30 tablet, Refills: 0 Metoprolol Tartrate Tab (Lopressor Tab) Dose: 12.5MG PO BID, Disp: 60 tablet, Refills: 0 Potassium Chlor Tab.ER (K Dur Tab) Dose: 20 MEQ PO DAILY Pregabalin Cap (Lyrica Cap) Dose: 50 MG PO BID Thiamine Tab (Vitamin B-1 Tab) Dose: 100 MG PO DAILY Ticagrelor Tab (Brilinta Tab) Dose: 90 MG PO Q12HR STOPPED HOME MEDICATIONS Dc'd: HYDROcodone/APAP 10/325 Tab (Corinne 10/325 Tab) 1 TAB PO Q6H X 10 days PRN pain scale 7-10 (use 1st) Dc'd: traZODone Tab (Desyrel Tab) 100 MG PO BEDTIME STOPPED HOSPITAL MEDICATIONS Dc'd: HYDROcodone/APAP 10/325 Tab (Corinne 10/325 Tab) 1TAB PO Q6H PRN pain scale 7-10 (use 1st)Dc'd: HYDROcodone/APAP 5/325 Tab (Corinne 5/325 Tab) 1TAB PO Q6H PRN pain scale 4-6 (use 1st)Dc'd: Acetaminophen Tab (Tylenol Tab) 650MG PO Q6H PRN mild pain or temp>38.5cDc'd: ALPRAZolam Tab (Xanax Tab) 1MG PO TID PRN agitation or anxiety (use 2nd)Dc'd: Bisacodyl Supp (Dulcolax Supp) 10MG Rectal DAILY PRN constipationDc'd: Calcium gluconate 2 GM/NS 100 mL IVPB 2GM 600 MLS/HR IV ASDIR PRN ionized calcium less than 1.2Dc'd: clonazePAM Tab (KlonoPIN Tab) 1MG PO BEDTIMEDc'd: Dextrose 50% 50 ml Syringe (D50W 50 ml Syringe) 25ML IV ASDIR PRN hypoglycemiaDc'd: Docusate Sodium Cap (Colace Cap) 200MG PO DAILYDc'd: Enoxaparin 40 mg/0.4 ml Inj (Lovenox 40 mg/0.4 ml Inj) 40MG SubQ DAILYDc'd: Glucagon Inj (Glucagon Inj) 1MG IM ASDIR PRN hypoglycemia if no iv/enteralDc'd: Haloperidol Lactate Inj (Haldol Inj) 5MG IV Q6H PRN agitation or anxiety (use 1st)Dc'd: hydrALAZINE Inj (Apresoline Inj) 10MG IV Q6H PRN sbp greater than 160Dc'd: HYDROmorphone Inj (Dilaudid Inj) 1MG IV Q4H PRN breakthrough pain/npoDc'd: Insulin (Lispro) Inj (HumaLOG Inj) 0 UNITS SubQ Q6HRDc'd: Labetalol Inj (Trandate Inj) 10MG IV Q2H PRN sbp greater than 160Dc'd: Lidocaine Patch 4% (Lidoderm Patch 4%) 1PATCH Transderm DAILYDc'd: Magnesium Sulfate 2GM IVPB (Magnesium Sulfate 2GM IVPB) 2GM 25 MLS/HR IV ASDIR PRN mag level 0.9 - 1.9 mg/dlDc'd: Magnesium Sulfate 4GM IVPB (Magnesium Sulfate 4GM IVPB) 4G 25 MLS/HR IV ASDIR PRN mag level <0.9 mg/dlDc'd: Mupirocin Ointment 2% (Bactroban Ointment 2%) 1APPLIC Nasal BIDDc'd: Nicotine Patch 21mg/24hr (Nicoderm CQ Patch 21mg/24hr) 21MG Transderm DAILYDc'd: Nitroglycerin SL Tab (Nitrostat SL Tab) 0.4MG SL Q5M PRN chest painDc'd: Ondansetron Inj (Zofran Inj) 4MG IV Q4H PRN nausea and vomitingDc'd: Polyethylene Glycol Powder (Miralax Powder) 1PKT PO DAILYDc'd: Sod Biphos/Pot Phosphate Pkt (Neutra-Phos Packet) 2PKT PO ASDIR PRN serum phosphorus 2-2.7Dc'd: Sodium Chloride 0.9% (NS) 100ML TITRATE IV TITRATEin niCARdipine DRIP (Cardene DRIP) 25MG (Total 110 ML) Dc'd: Sodium Phosphate Inj (Sodium Phosphate Inj) 20MM IV ASDIR PRN phosphorus sliding scalein sodium chloride 0.9 % intravenous solution 250ML (Total 256.67 ML) Dc'd: Sodium Phosphate Inj (Sodium Phosphate Inj) 30MM IV ASDIR PRN phosphorus sliding scalein sodium chloride 0.9 % intravenous solution 250ML (Total 260 ML) at 1102 ATTENTION *EDITS and/or ADDENDA must be made in Patient Keeper for this note. * * Edits and ammendments created in [facility] are not visible * * in Patient Keeper or the legal medical record ([facility]). * [facility] #: [id number] END OF REPORT [facility] 2023-08-31 08:24:00 [facility] ([facility]) Cardiology Progress Notes REPORT #: [id number] REPORT STATUS: Signed DATE: 08/31/23 TIME: 823 PATIENT: KOTA MONTES UNIT #: [id number] ROOM #: [facility] BED: A : 61 AGE: 63 SEX: M ATTEND: Sherrie Stein MD ADM AUTHOR: Camron Patel ATTENTION *EDITS and/or ADDENDA must be made in Patient Keeper for this note. * * Edits and ammendments created in [employer] are not visible * * in Patient Keeper or the legal medical record ([facility]). * -- CO-SIGNATURE -- COMMENTS: The patient was seen on rounds with MIAH Monge. The patient has no complaints Examination demonstrates normal heart sounds and clear lung armijo. Impression and plan Patient is a 62-year-old gentleman who underwent multivessel percutaneous coronary intervention in the past and bypass surgery who is here with respiratory failure. The patient's cardiac status has been stable and we will continue his guideline directed medical therapy. The patient will be changed to oral diuretics before being discharged home today. Signed in PatientKeeper by KURTIS LYNCH MD on 09/22/23 at 12:23 -- ASSESSMENT AND PLAN -- PROBLEMS: 1: Hypertensive emergency A/P: The patient is a 62-year-old gentleman (patient of Dr. Giordano) has a PMHx of coronary artery disease (s/p PCI 2005, 06/2022, 12/24/2022, 12/24/2022, 07/27/23 CABG x 2V 06/13/23), h/o NM (2005), family history of coronary artery disease, ICMP (EF 25-29% on 07/31/23), h/o alcohol abuse, nicotine use, hypertension, hyperlipidemia. He underwent CABG x 2V (BOGGS-LAD, rSVG-OM1) on 06/13/[address] Pike. He was discharged on stable condition on 06/18/23. He was re-admitted on 07/26/23 with chest pain and shortness of breath. He was ruled in NSTEMI and underwent PCI to RCA (1DES) and shockwave on Impella support on 07/27/[address] Malachi Fitzgerald. Impella was removed on 07/29/[address] Segal. He was discharged on stable condition on 08/01/23. He was taken to [facility] on 08/29/23 by EMS with complaint of shortness of breath, was on nonrebreather mask. He was found to be in acute hypoxic and hypercapnic respiratory failure in the setting of hypertensive emergency, he was intubated. He was transferred here to [facility] for higher level of care. He was extubated on 08/30/23. He is in CVIMU now. - On metoprolol tartrate 12.5mg BID. 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 Denies complaints today. Seen by Dr. Lynch today. No acute events overnight. -REVIEW OF SYSTEMS- GENERAL: Negative for fever, malaise, fatigue. EYES: Negative for blurry vision. No diplopia. EARS/NOSE/THROAT: Negative for sore throat. No otalgia. No rhinorrhea. RESPIRATORY: Negative for dyspnea or wheeze. No cough. CARDIOVASCULAR: Negative for chest pain or palpitations. No extremity swelling. GASTROINTESTINAL: Negative for abdominal pain or nausea. No emesis. No diarrhea. GENITOURINARY: Negative for dysuria, frequency, or urgency. No gross hematuria. MUSCULOSKELETAL: Negative for joint stiffness, pain, or arthralgias. SKIN: Negative for rashes. No pruritus. NEUROLOGICAL: Negative for headache. No vertigo. Denies paresthesias. PSYCHIATRIC: Negative for specific complaints. -- OBJECTIVE -- VITALS (08/29 06:55 - 08/30 06:55): Temperature F: 98.0 (98.0 - 98.6) Temperature C: 36.9 Temperature source: Oral Pulse Rate 96 (80 - 124) Respiratory rate: 15 (9 - 43) Blood pressure: 96/54 (31/18 - 249/248) Blood pressure source: Monitor I/Os (08/28 07:00 - 08/29 07:00): Net 88.50 Intake 608.50 Output 520 -EXAM- OTHER: Constitutional: Well developed, well nourished patient, in no acute distress. Derm/Integumentary: Warm and dry with no rashes, sores, or lesions. HEENT: Eyes-sclera clear and white, symmetrical w/ no lag. ENT - Palate and gums pink, mucosa moist, no pallor/cyanosis. Neck: supple with no masses, no thyromegaly, No JVD. Respiratory: Clear to auscultation. Chest: Median sternotomy intact, no drainage Heart: S1S2+, Regular Rate and Rhythm, No murmurs, rubs, or gallops. Gastrointestinal: + Bowel Sounds all quadrants. Soft, nontender with no masses or organomegaly; No HJR. Musculoskeletal: Equal strength in all extremities. No weakness. Neurology: Alert and oriented X 3. Calm, cooperative affect. No focal deficits. Extremities: + peripheral pulses. No clubbing, cyanosis. No lower extremity edema. -- DATA -- MEDICATIONS HYDROcodone BITARTRATE/APAP 1 TAB PO Q6H PRN FOLIC ACID 1 MG PO DAILY BUMETANIDE 0.5 MG IV Q12HR HYDROcodone BITARTRATE/APAP 1 TAB PO Q6H PRN LIDOCAINE 1 PATCH TRANSDERM DAILY ONDANSETRON HCL/PF 4 MG IV Q4H PRN LABETALOL HCL 10 MG IV Q2H PRN DEXTROSE 50%-WATER 25 ML IV ASDIR PRN methocarbamoL 750 MG PO TID ATORVASTATIN CALCIUM 80 MG PO BEDTIME POTASSIUM CHLORIDE 20 MEQ PO ASDIR PRN TICAGRELOR 90 MG PO Q12HR DOCUSATE SODIUM 200 MG PO DAILY GLUCAGON 1 MG IM ASDIR PRN ENOXAPARIN SODIUM 40 MG SUBQ DAILY INSULIN LISPRO 0 UNITS SUBQ Q6HR SODIUM PHOSPHATE with/in SODIUM CHLORIDE 0.9% 30 MM IV ASDIR (PRN) CALCIUM GLUC IN NACL, ISO-OSM 2 GM IV ASDIR (PRN) HALOPERIDOL LACTATE 5 MG IV Q6H PRN NICOTINE 21 MG TRANSDERM DAILY ESCITALOPRAM 20 MG PO DAILY clonazePAM 1 MG PO BEDTIME MUPIROCIN 1 APPLIC NASAL BID HYDROmorphone HCL 1 MG IV Q4H PRN bisacodyL 10 MG RECTAL DAILY PRN SODIUM PHOSPHATE with/in SODIUM CHLORIDE 0.9% 20 MM IV ASDIR (PRN) ACETAMINOPHEN 650 MG PO Q6H PRN METOPROLOL TARTRATE 12.5 MG PO BID SOD BIPHOS/POT PHOSPHATE 2 PKT PO ASDIR PRN POTASSIUM CHLORIDE 20 MEQ IV ASDIR (PRN) ASPIRIN 81 MG PO DAILY (Held) METOPROLOL TARTRATE 12.5 MG PO Q12HR PREGABALIN 50 MG PO BID niCARdipine HCL with/in SODIUM CHLORIDE 100 mL BAG 25 MG IV TITRATE MAGNESIUM SULFATE 2 GM IV ASDIR (PRN) THIAMINE HCL 100 MG PO DAILY MAGNESIUM SULFATE 4 G IV ASDIR (PRN) POTASSIUM CHLORIDE IN WATER 10 MEQ IV ASDIR (PRN) hydrALAZINE HCL 10 MG IV Q6H PRN NITROGLYCERIN 0.4 MG SL Q5M PRN ALPRAZolam 1 MG PO TID PRN polyethylene glycoL 3350 1 PKT PO DAILY LABS LACTIC ACID (08/30/23 10:27) LACTIC ACID 1.40 PTT (08/30/23 10:07) THROMBOPLASTIN TIME PARTIAL 28.4 BASIC METABOLIC PANEL (08/30/23 10:06) SODIUM 133L L POTASSIUM 3.8 CHLORIDE 101 CARBON DIOXIDE 25 GLUCOSE 90 BLOOD UREA NITROGEN 11 GLOMERULAR FILTRATION RATE >=60 max estimate CREATININE 1.10 CALCIUM 8.3 L MAG (08/30/23 10:06) MAGNESIUM 2.3 PHOS (08/30/23 10:06) PHOSPHOROUS 3.4 D CBC W/AUTO DIFF (08/30/23 10:06) WHITE BLOOD CELL 9.9 RED BLOOD CELL 3.47 L HEMOGLOBIN 11.2L L HEMATOCRIT 33.2L L MEAN CELL VOLUME 95.7 H MEAN CELL HGB 32.3 H MEAN CELL HGB CONCENTRATION 33.7 RED CELL DISTRIBUTION WIDTH 15.4 PLATELET COUNT 153 MEAN PLATELET VOLUME 9.2 NEUTROPHIL % 81.1 H LYMPHOCYTE % 12.5 L MONOCYTE % 5.7 EOSINOPHIL % 0.1 BASOPHIL % 0.3 NEUTROPHIL # 8.03 H LYMPHOCYTE # 1.24 MONOCYTE # 0.56 EOSINOPHIL # 0.01 BASOPHIL # 0.03 -- ATTESTATION -- CARE ACTIVITIES / CARE COORDINATION: - I have reviewed the history and repeated the carias elements - I have seen and examined this patient - I have reviewed the progress in the clinical course since the last examination - I have discussed the patient's condition with other members of the care team ADDITIONAL DETAIL: Plan of care discussed with Dr. Kurtis Lynch Signed in PatientKeeper by CAMRON PATEL on 08/31/23 at 12:57 Cosigned by KURTIS LYNCH MD on 09/22/23 at 12:23 at 1223 at 1223 ATTENTION *EDITS and/or ADDENDA must be made in Patient Keeper for this note. * * Edits and ammendments created in [employer] are not visible * * in Patient Keeper or the legal medical record ([facility]). * [facility] #: [id number] END OF REPORT [facility] 2023-08-30 18:03:00 [facility] ([facility]) Med Order Sheet REPORT #: [id number] REPORT STATUS: Signed DATE: 08/30/23 TIME: 180 PATIENT: KOTA MONTES UNIT #: [id number] ROOM #: [id number] BED: 1 : 61 AGE: 62 SEX: M ATTEND: Sherrie Stein MD ADM AUTHOR: Keenan Kumari MD ATTENTION *EDITS and/or ADDENDA must be made in Patient Keeper for this note. * * Edits and ammendments created in [facility] are not visible * * in Patient Keeper or the legal medical record ([facility]). * Admission Medication Reconciliation -- CONTINUED / CHANGED HOME MEDICATIONS -- Home: Aspirin EC Tab (Ecotrin Tab) 81 MG PO DAILY Hosp: Existing: Aspirin EC Tab (Ecotrin Tab) 81MG PO DAILY stopping on 09/29 at 09:01 Home: Atorvastatin Tab (Lipitor Tab) 80 MG PO BEDTIME Hosp: Existing: Atorvastatin Tab (Lipitor Tab) 80MG PO BEDTIME stopping on 09/28 at 21:01 Home: Bumetanide Tab (Bumex Tab) 1 MG PO DAILY Hosp: Existing: Bumetanide Inj (Bumex Inj) 0.5MG IV Q12HR stopping on 09/28 at 09:01 Home: Folic Acid Tab (Folvite Tab) 1 MG PO DAILY Hosp: Existing: Folic Acid Tab (Folvite Tab) 1MG PO DAILY stopping on 09/28 at 09:01 Home: HYDROcodone/APAP 10/325 Tab (Corinne 10/325 Tab) 1 TAB PO Q6H X 10 days PRN pain scale 7-10 (use 1st) Hosp: Existing: HYDROcodone/APAP 10/325 Tab (Corinne 10/325 Tab) 1TAB PO Q6H PRN pain scale 7-10 (use 1st) stopping on 09/05 at 00:31 Hosp: Existing: HYDROcodone/APAP 5/325 Tab (Corinne 5/325 Tab) 1TAB PO Q6H PRN pain scale 4-6 (use 1st) stopping on 09/05 at 00:31 Home: Lexapro tab (escitalopram oxalate) 20 MG PO DAILY Hosp: Existing: Escitalopram Tab (Lexapro Tab) 20MG PO DAILY stopping on 09/28 at 09:01 Home: Methocarbamol Tab (Robaxin Tab) 1000 MG PO TID Hosp: Existing: Methocarbamol Tab (Robaxin Tab) 750MG PO TID stopping on 09/28 at 09:01 Home: Metoprolol Tartrate Tab (Lopressor Tab) 25 MG PO BID Hosp: Existing: Metoprolol Tartrate Tab (Lopressor Tab) 12.5MG PO BID stopping on 09/28 at 11:01 Hosp: Existing: Metoprolol Tartrate Tab (Lopressor Tab) 12.5MG PO Q12HR stopping on 09/28 at 09:01 Home: Potassium Chlor Tab.ER (K Dur Tab) 20 MEQ PO DAILY Hosp: Existing: Potassium Chloride packet (K-Marylu packet) 20MEQ PO ASDIR PRN electrolyte sliding scale stopping on 09/28 at 00:16 Hosp: Existing: KCl 20mEq/100mL IVPB (Potassium Chloride 20mEq/100mL IVPB) 20MEQ IV ASDIR PRN electrolyte sliding scale stopping on 09/28 at 00:31 Hosp: Existing: KCl 10mEq/50mL IVPB (Potassium Chloride 10mEq/50mL IVPB) 10MEQ 50 MLS/HR IV ASDIR PRN electrolyte sliding scale stopping on 09/28 at 00:31 Home: Pregabalin Cap (Lyrica Cap) 50 MG PO BID Hosp: Existing: Pregabalin Cap (Lyrica Cap) 50MG PO BID stopping on 09/28 at 21:01 Home: Thiamine Tab (Vitamin B-1 Tab) 100 MG PO DAILY Hosp: Existing: Thiamine Tab (Vitamin B-1 Tab) 100MG PO DAILY stopping on 09/28 at 09:01 Home: Ticagrelor Tab (Brilinta Tab) 90 MG PO Q12HR Hosp: Existing: Ticagrelor Tab (Brilinta Tab) 90MG PO Q12HR stopping on 09/28 at 09:01 -- STOPPED HOME MEDICATIONS -- Home: traZODone Tab (Desyrel Tab) 100 MG PO BEDTIME at 1803 ATTENTION *EDITS and/or ADDENDA must be made in Patient Keeper for this note. * * Edits and ammendments created in [employer] are not visible * * in Patient Keeper or the legal medical record ([facility]PF). * RPT #: [id number] END OF REPORT [facility] 2023-08-30 15:04:00 [facility] ([facility]) Cardiology Consultation REPORT #: [id number] REPORT STATUS: Signed DATE: 08/30/23 TIME: 1504 PATIENT: KOTA MONTES UNIT #: [id number] ROOM #: [id number].0402 BED: A : [birth year] AGE: 62 SEX: M ATTEND: Sherrie Stein MD ADM AUTHOR: Rochelle Powell MD CF1 ATTENTION *EDITS and/or ADDENDA must be made in Patient Keeper for this note. * * Edits and ammendments created in [facility] are not visible * * in Patient Keeper or the legal medical record ([facility]). * -- CO-SIGNATURE -- COMMENTS: I have personally seen and examined the patient independently, and reviewed the patient's history, exam, and all cardiac and laboratory data on 08/30/23. I agree with the history, physical, and the assessment and plan as outlined by Rochelle Olivo MD, Cardiovascular Fellow. Signed in PatientKeeper by MALACHI FITZGERALD MD on 09/01/23 at 20:05 -- ASSESSMENT AND PLAN -- GENERAL ASSESSMENT: 62 y/o M with HTN, HLD, CAD s/p CABG x2 on 06/[address] Pike (BOGGS to LAD and SVG to OM), PCIs (2005, 06/2022, 12/2022, 07/2023), ischemic cardiomyopathy (Echo 07/31/2023: LVEF 25-29%), Hx of ETOH abuse, tobacco abuse, anxiety/depression, and non-adherence to medications who presented to [facility] c/o SOB on 08/28, found to be in acute hypoxemic and hypercapnic respiratory failure, HTN emergency, acute on chronic decompensated heart failure (HFrEF) required invasive mechanical ventilation. The patient was transferred to [facility] for further evaluation and management. A/P: Dx: . HTN emergency, resolved . Acute hypoxemic respiratory failure in invasive mechanical ventilation, resolving . Acute on chronic decompensated heart failure, CHF (HFrEF) . Elevated troponin, suspect type II NM . CAD s/p CABG x2 and PCIs as abpove . Acute interstitial and pulmonary edema . Hypervolemia . Abnormal LFTs Plan: ICU level of care Hemodynamics are satisfactory. Lactic 1.4, SVO2 80 Adequate diuresis, on bumex scheduled doses Continue DAPT with ASA and Brilinta, and high intensity statin atorvastatin 80 mg daily Hold BB for now Plan for extubation. Keep O2 sats >92% PT Counseling about adherence to medication and lifestyle modification to prevent heart failure exacerbation -- HISTORY -- CONSULT REQUESTED BY: Sherrie Stein MD DATE/TIME AT BEDSIDE: 2023-08-30 REASON FOR CONSULT: acute decompensated heart failure CHIEF COMPLAINT: SOB HPI: 62 y/o M with HTN, HLD, CAD s/p CABG x2 on 06/[address] Pike (BOGGS to LAD and SVG to OM), PCIs (2005, 06/2022, 12/2022, 07/2023), ischemic cardiomyopathy (Echo 07/31/2023: LVEF 25-29%), Hx of ETOH abuse, tobacco abuse, anxiety/depression, and non-adherence to medications who presented to [facility] c/o SOB on 08/28, found to be in acute hypoxemic and hypercapnic respiratory failure, HTN emergency, acute on chronic decompensated heart failure (HFrEF) required invasive mechanical ventilation. The patient was transferred to [facility] for further evaluation and management. I evaluated the patient in the ICU this morning, he was intubated on invasive mechanical ventilation. PAST MEDICAL HISTORY: As above PAST SURGICAL HISTORY: As above FAMILY HISTORY: not reported, not able to obtain -SOCIAL HISTORY- -TOBACCO USE- DETAILS/COMMENTS: + tobacco abuse -ALCOHOL USE- DETAILS/COMMENTS: Hx of ETOH use -DRUG USE- DETAILS/COMMENTS: Hx of opiods use MARITAL STATUS: 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 -- ALLERGIES/HOME MEDS -- ALLERGIES: No Known Allergies (UNKNOWN - Allergy) HOME MEDICATIONS: Aspirin EC Tab (Ecotrin Tab) 81 MG PO DAILY Atorvastatin Tab (Lipitor Tab) 80 MG PO BEDTIME Bumetanide Tab (Bumex Tab) 1 MG PO DAILY Folic Acid Tab (Folvite Tab) 1 MG PO DAILY HYDROcodone/APAP 10/325 Tab (Corinne 10/325 Tab) 1 TAB PO Q6H Lexapro tab (escitalopram oxalate) 20 MG PO DAILY Methocarbamol Tab (Robaxin Tab) 1000 MG PO TID Metoprolol Tartrate Tab (Lopressor Tab) 25 MG PO BID Potassium Chlor Tab.ER (K Dur Tab) 20 MEQ PO DAILY Pregabalin Cap (Lyrica Cap) 50 MG PO BID Thiamine Tab (Vitamin B-1 Tab) 100 MG PO DAILY Ticagrelor Tab (Brilinta Tab) 90 MG PO Q12HR traZODone Tab (Desyrel Tab) 100 MG PO BEDTIME -- SUBJECTIVE -- -REVIEW OF SYSTEMS- COMMENT: patient is intubated, info was obtained from medical records. -- OBJECTIVE -- VITALS (08/28 15:05 - 08/29 15:05): Temperature F: 98.5 (98.3 - 98.7) Temperature source: Oral Pulse Rate 103 (69 - 130) Respiratory rate: 43 (6 - 46) Blood pressure: 107/64 (31/18 - 249/248) Blood pressure source: Monitor I/Os (08/28 07:00 - 08/29 07:00): Net 88.50 Intake 608.50 Output 520 -EXAM- GENERAL: Well developed, well nourished, in no apparent distress. HEAD: Normocephalic, atraumatic. EYES: Pupils reactive, conjunctiva and sclera clear, without nystagmus, lids normal. EARS: Grossly normal. NOSE: No deformity, no discharge, no inflammation, no lesions. MOUTH: ET tube noted. NECK: Supple, no JVD, trachea midline. CHEST: Grossly normal appearance. LUNGS: Mechanical breaths bilaterally. + crepitations. HEART: Regular rate and rhythm, normal S1, S2, no murmurs, no rubs, no gallops, no clicks. ABDOMEN: Soft, non-tender not distended. MUSCULOSKELETAL: No deformity, moves extremities EXTREMITIES: No cyanosis, no edema. NEUROLOGICAL: Awake and responsive. No focal deficits. PULSES: Pulses normal in all extremities. SKIN: Intact without significant lesions, or rashes. -- DATA -- MEDICATIONS HYDROcodone BITARTRATE/APAP 1 TAB PO Q6H PRN FOLIC ACID 1 MG PO DAILY BUMETANIDE 0.5 MG IV Q12HR HYDROcodone BITARTRATE/APAP 1 TAB PO Q6H PRN DEXTROSE 50%-WATER 25 ML IV ASDIR PRN ATORVASTATIN CALCIUM 80 MG PO BEDTIME TICAGRELOR 90 MG PO Q12HR DOCUSATE SODIUM 200 MG PO DAILY INSULIN LISPRO 0 UNITS SUBQ Q6HR SODIUM PHOSPHATE with/in SODIUM CHLORIDE 0.9% 30 MM IV ASDIR (PRN) CALCIUM GLUC IN NACL, ISO-OSM 2 GM IV ASDIR (PRN) HALOPERIDOL LACTATE 5 MG IV Q6H PRN ESCITALOPRAM 20 MG PO DAILY HYDROmorphone HCL 1 MG IV Q4H PRN bisacodyL 10 MG RECTAL DAILY PRN ACETAMINOPHEN 650 MG PO Q6H PRN SOD BIPHOS/POT PHOSPHATE 2 PKT PO ASDIR PRN ASPIRIN 81 MG PO DAILY PREGABALIN 50 MG PO BID niCARdipine HCL with/in SODIUM CHLORIDE 100 mL BAG 25 MG IV TITRATE THIAMINE HCL 100 MG PO DAILY POTASSIUM CHLORIDE IN WATER 10 MEQ IV ASDIR (PRN) ALPRAZolam 1 MG PO TID PRN LIDOCAINE 1 PATCH TRANSDERM DAILY ONDANSETRON HCL/PF 4 MG IV Q4H PRN LABETALOL HCL 10 MG IV Q2H PRN methocarbamoL 750 MG PO TID POTASSIUM CHLORIDE 20 MEQ PO ASDIR PRN GLUCAGON 1 MG IM ASDIR PRN ENOXAPARIN SODIUM 40 MG SUBQ DAILY NICOTINE 21 MG TRANSDERM DAILY clonazePAM 1 MG PO BEDTIME MUPIROCIN 1 APPLIC NASAL BID SODIUM PHOSPHATE with/in SODIUM CHLORIDE 0.9% 20 MM IV ASDIR (PRN) METOPROLOL TARTRATE 12.5 MG PO BID POTASSIUM CHLORIDE 20 MEQ IV ASDIR (PRN) (Held) METOPROLOL TARTRATE 12.5 MG PO Q12HR MAGNESIUM SULFATE 2 GM IV ASDIR (PRN) MAGNESIUM SULFATE 4 G IV ASDIR (PRN) hydrALAZINE HCL 10 MG IV Q6H PRN NITROGLYCERIN 0.4 MG SL Q5M PRN polyethylene glycoL 3350 1 PKT PO DAILY LABS LACTIC ACID (08/30/23 10:27) LACTIC ACID 1.40 PTT (08/30/23 10:07) THROMBOPLASTIN TIME PARTIAL 28.4 BASIC METABOLIC PANEL (08/30/23 10:06) SODIUM 133L L POTASSIUM 3.8 CHLORIDE 101 CARBON DIOXIDE 25 GLUCOSE 90 BLOOD UREA NITROGEN 11 GLOMERULAR FILTRATION RATE >=60 max estimate CREATININE 1.10 CALCIUM 8.3 L MAG (08/30/23 10:06) MAGNESIUM 2.3 PHOS (08/30/23 10:06) PHOSPHOROUS 3.4 D CBC W/AUTO DIFF (08/30/23 10:06) WHITE BLOOD CELL 9.9 RED BLOOD CELL 3.47 L HEMOGLOBIN 11.2L L HEMATOCRIT 33.2L L MEAN CELL VOLUME 95.7 H MEAN CELL HGB 32.3 H MEAN CELL HGB CONCENTRATION 33.7 RED CELL DISTRIBUTION WIDTH 15.4 PLATELET COUNT 153 MEAN PLATELET VOLUME 9.2 NEUTROPHIL % 81.1 H LYMPHOCYTE % 12.5 L MONOCYTE % 5.7 EOSINOPHIL % 0.1 BASOPHIL % 0.3 NEUTROPHIL # 8.03 H LYMPHOCYTE # 1.24 MONOCYTE # 0.56 EOSINOPHIL # 0.01 BASOPHIL # 0.03 BLOOD GAS W/ELECTROLYTES (08/30/23 04:39) ARTERIAL BLOOD GAS PH 7.45 ARTERIAL BLOOD GAS PCO2 31.9 L ARTERIAL BLOOD GAS PO2 219.6 H BICARBONATE TOTAL HCO3 21.5 L BASE EXCESS -1.7 ABG O2 SATURATION 99.8 ARTERIAL FIO2 50.0 ABG VENT MODE Ventilator ALLENS TEST No SODIUM (POC) 132 L POTASSIUM (POC) 4.63 CHLORIDE (ARTERIAL) 97 L GLUCOSE 88 IONIZED CALCIUM 1.09 L POC LACTIC ACID 2.00 TOTAL HGB 13.2 OXYHEMOGLOBIN 99.0 H CARBOXYHEMOGLOBIN 0.7 METHEMOGLOBIN <0.8 HHb 0.2 TCO2 ARTERIAL 22.5 L VENOUS BLOOD GAS (08/30/23 04:10) VENOUS BLOOD GAS PH 7.34 L VENOUS BLOOD GAS PCO2 37.6 VENOUS BLOOD GAS PO2 51.0 VBG HCO3 20 VBG BASE EXCESS -5.4 VENOUS BLOOD GAS O2 SAT 80 VENOUS BLOOD GAS TYPE Venous VENOUS BLOOD GAS FIO2 50.0 VBG VENT MODE Ventilator COVID Asymp Ag (08/30/23 01:38) COVID 19 Asymptomatic IH AG NEGATIVE DRUGS OF ABUSE SCREEN URINE (08/30/23 01:38) UR COCAINE Negative UR CANABINOIDS Negative UR AMPHETAMINE Negative UR BARBITURATE Negative UR BENZODIAZEPINE Positive A UR OPIATES QUAL Negative UR PHENCYCLIDINE (PCP) Negative URINALYSIS DIPSTICK (08/30/23 01:38) UA COLOR YELLOW UA APPEARANCE CLEAR UA GLUCOSE DIPSTICK NEGATIVE UA BILIRUBIN DIPSTICK NEGATIVE UA KETONE DIPSTICK NEGATIVE UA SPECIFIC GRAVITY 1.025 UA BLOOD DIPSTICK MODERATE A UA PH DIPSTICK 6.0 UA PROTEIN DIPSTICK 10 UA UROBILINOGEN DIPSTICK NORMAL UA NITRITE DIPSTICK NEGATIVE UA LEUKOCYTE ESTERASE DIPSTICK NEGATIVE UA MICROSCOPIC (08/30/23 01:38) UA WBC 3-5 A UA RBC 6-10 A UA BACTERIA 1+ A UA SQUAMOUS CELLS NONE SEEN FIB (08/30/23 01:37) FIBRINOGEN 216 PTT (08/30/23 01:37) THROMBOPLASTIN TIME PARTIAL 25.5 PHOS (08/30/23 01:37) PHOSPHOROUS 5.2 H TROPI (08/30/23 01:37) TROPONIN-I 106.7 *H PROTHROMBIN TIME (08/30/23 01:37) PROTHROMBIN TIME PATIENT 11.2 INTERNATIONAL NORMAL RATIO 1.00 BNP (08/30/23 01:37) B-TYPE NATRIURETIC PEPTIDE 947 H LACTIC ACID (08/30/23 01:37) LACTIC ACID 1.80 CBC W/AUTO DIFF (08/30/23 01:37) WHITE BLOOD CELL 9.7 RED BLOOD CELL 3.69 L HEMOGLOBIN 12.2L L HEMATOCRIT 35.7L L MEAN CELL VOLUME 96.7 H MEAN CELL HGB 33.1 H MEAN CELL HGB CONCENTRATION 34.2 RED CELL DISTRIBUTION WIDTH 15.2 PLATELET COUNT 167 MEAN PLATELET VOLUME 9.1 NEUTROPHIL % 82.8 H LYMPHOCYTE % 10.5 L MONOCYTE % 5.9 EOSINOPHIL % 0.1 BASOPHIL % 0.3 NEUTROPHIL # 8.06 H LYMPHOCYTE # 1.02 MONOCYTE # 0.57 EOSINOPHIL # 0.01 BASOPHIL # 0.03 COMPREHENSIVE METABOLIC PANEL (08/30/23 01:37) SODIUM 132 L POTASSIUM 4.4 CHLORIDE 102 CARBON DIOXIDE 21 GLUCOSE 99 BLOOD UREA NITROGEN 7 L GLOMERULAR FILTRATION RATE >=60 max estimate CREATININE 1.00 TOTAL PROTEIN 6.2 ALBUMIN 4.0 CALCIUM 7.6 L BILIRUBIN TOTAL 0.9 SGOT/AST 78 H SGPT/ALT 74 H ALKALINE PHOSPHATASE 125.0 H MAG (08/30/23 01:37) MAGNESIUM 1.6 ALCOHOL (08/30/23 01:36) ALCOHOL 4 GLU BED (08/30/23 01:10) GLUBED 104 ARTERIAL BLOOD GAS (08/29/23 19:27) ARTERIAL BLOOD GAS PH 7.223 L ARTERIAL BLOOD GAS PCO2 55.5 H ARTERIAL BLOOD GAS PO2 83.8 BICARBONATE TOTAL HCO3 22.4 BASE EXCESS -6.1 L ABG O2 SATURATION 93.4 L ABG TYPE Arterial ARTERIAL FIO2 100.0 PaO2/FiO2 83.80 L ABG VENT MODE AC ABG TIDAL VOLUME 450 ABG PEEP 7.0 ABG SITE Right Radial ALLENS TEST Yes TOTAL HGB 15.8 OXYHEMOGLOBIN 93.0 METHEMOGLOBIN <0.8 TCO2 ARTERIAL 24.1 H CRITICAL VALUE N/A LACTIC ACID (08/29/23 18:15) LACTIC ACID 5.8 H PROTHROMBIN TIME (08/29/23 17:52) PROTHROMBIN TIME PATIENT 9.7 INTERNATIONAL NORMAL RATIO 0.8 PTT (08/29/23 17:52) THROMBOPLASTIN TIME PARTIAL 29.1 CBC W/AUTO DIFF (08/29/23 17:52) WHITE BLOOD CELL 10.9 RED BLOOD CELL 4.58 HEMOGLOBIN 14.9 HEMATOCRIT 45.5 MEAN CELL VOLUME 99 MEAN CELL HGB 32.5 MEAN CELL HGB CONCENTRATION 32.7 RED CELL DISTRIBUTION WIDTH 15.2 H PLATELET COUNT 231 MEAN PLATELET VOLUME 9.3 NEUTROPHIL % 63.7 IMMATURE GRANULOCYTE % 0.6 LYMPHOCYTE % 29.5 MONOCYTE % 5.1 EOSINOPHIL % 0.5 BASOPHIL % 0.6 NUCLEATED RBC % 0.2 NEUTROPHIL # 6.94 IMMATURE GRANULOCYTE # 0.060 LYMPHOCYTE # 3.20 MONOCYTE # 0.55 EOSINOPHIL # 0.05 BASOPHIL # 0.06 NUCLEATED RBC # 0.020 H TROP-I HIGH SEN (08/29/23 17:52) TROP-I HIGH SENSITIVITY 57 BASIC METABOLIC PANEL (08/29/23 17:52) SODIUM 126L L POTASSIUM 3.6 CHLORIDE 94L L CARBON DIOXIDE 21 ANION GAP 14.6 GLUCOSE 199H H BLOOD UREA NITROGEN 6 GLOMERULAR FILTRATION RATE >=60 max estimate CREATININE 1.0 BUN/CREATININE RATIO 6.0 L CALCIUM 8.4 L BNP (08/29/23 17:52) B-TYPE NATRIURETIC PEPTIDE 1007 H LIP (08/29/23 17:52) LIPASE 40 MAG (08/29/23 17:52) MAGNESIUM 2.3 LIVER FUNCTION PANEL (08/29/23 17:52) TOTAL PROTEIN 7.5 ALBUMIN 3.6 GLOBULIN 3.9 H BILIRUBIN TOTAL 0.9 BILIRUBIN DIRECT 0.1 BILIRUBIN INDIRECT 0.8 SGOT/AST 114 H SGPT/ALT 92 H ALKALINE PHOSPHATASE 158 H Signed in PatientKeeper by Rochelle Powell MD CF1 on 08/30/23 at 15:25 Cosigned by MALACHI FITZGERALD MD on 09/01/23 at 20:05 at 2004 at 2004 ATTENTION *EDITS and/or ADDENDA must be made in Patient Keeper for this note. * * Edits and ammendments created in [employer] are not visible * * in Patient Keeper or the legal medical record (HPF). * [facility] #: [id number] END OF REPORT [facility] 2023-08-30 13:45:00 [facility] ([facility]) Hospitalist Cassi Lemons REPORT #: [id number] REPORT STATUS: Signed DATE: 08/30/23 TIME: 1345 PATIENT: KOTA MONTES UNIT #: [id number] #: [id number] BED: A : 62 AGE: 62 SEX: M ATTEND: Sherrie Stein MD ADM AUTHOR: Cynthia Rabago ATTENTION *EDITS and/or ADDENDA must be made in Patient Keeper for this note. * * Edits and ammendments created in [employer] are not visible * * in Patient Keeper or the legal medical record (HPF). * -- HISTORY -- ADMISSION DATE: 2023-08-29 PRIMARY CARE PROVIDER: Provider, Undefined CHIEF COMPLAINT: Shortness of breath HPI: Patient is a 62 y/o M with a PMH of HTN, HLD, CAD s/p CABG x2 (06/25), PCI (most recent 07/25), ICMP (EF 25-29%), Anxiety/Depression, ETOH Tobacco abuse. He was transferred from [facility] ED after presenting with SOB. He was found to have Resp failure 2/2 Pulm edema in the setting of HTN ER required intubation. Patient admitted to excessive drinking prior to coming to the hospital. He also drinks 3 cups of coffee daily. He is not compliant w Fluid intake as he was under the impression to remain hydrated and increase fluid intake. He is not compliant/conscious of salt intake. Doesn't weigh himself daily. PAST MEDICAL HISTORY: HTN, HLD, CAD s/p CABG x2 (06/25), PCI (most recent 07/25), ICMP (EF 25-29%), PAST SURGICAL HISTORY: CABG, PCI -SOCIAL HISTORY- -ALCOHOL USE- DATE OF LAST USE: 2023-08-29 DETAILS/COMMENTS: 3-4 drinks -- ALLERGIES/HOME MEDS -- ALLERGIES: No Known Allergies (UNKNOWN - Allergy) HOME MEDICATIONS: Aspirin EC Tab (Ecotrin Tab) 81 MG PO DAILY Atorvastatin Tab (Lipitor Tab) 80 MG PO BEDTIME Bumetanide Tab (Bumex Tab) 1 MG PO DAILY Folic Acid Tab (Folvite Tab) 1 MG PO DAILY HYDROcodone/APAP 10/325 Tab (Corinne 10/325 Tab) 1 TAB PO Q6H Lexapro tab (escitalopram oxalate) 20 MG PO DAILY Methocarbamol Tab (Robaxin Tab) 1000 MG PO TID Metoprolol Tartrate Tab (Lopressor Tab) 25 MG PO BID Potassium Chlor Tab.ER (K Dur Tab) 20 MEQ PO DAILY Pregabalin Cap (Lyrica Cap) 50 MG PO BID Thiamine Tab (Vitamin B-1 Tab) 100 MG PO DAILY Ticagrelor Tab (Brilinta Tab) 90 MG PO Q12HR traZODone Tab (Desyrel Tab) 100 MG PO BEDTIME -- SUBJECTIVE -- -REVIEW OF SYSTEMS- COMMENT: negative unless as stated in HPI -- OBJECTIVE -- VITALS (08/28 13:45 - 08/29 13:45): Temperature F: 98.5 (98.3 - 98.7) Temperature source: Oral Pulse Rate 103 (69 - 130) Respiratory rate: 43 (6 - 46) Blood pressure: 107/64 (31/18 - 249/248) Blood pressure source: Monitor I/Os (08/28 07:00 - 08/29 07:00): Net 88.50 Intake 608.50 Output 520 -EXAM- GENERAL: Well developed, well nourished, in no apparent distress. HEAD: Normocephalic, atraumatic. EYES: Pupils reactive, conjunctiva and sclera clear, without nystagmus, lids normal. EARS: Grossly normal. NOSE: No deformity, no discharge, no inflammation, no lesions. MOUTH: ET tube noted. NECK: Supple, no JVD, trachea midline. CHEST: Grossly normal appearance. LUNGS: Mechanical breaths bilaterally. + crepitations. HEART: Regular rate and rhythm, normal S1, S2, no murmurs, no rubs, no gallops, no clicks. ABDOMEN: Soft, non-tender not distended. MUSCULOSKELETAL: No deformity, moves extremities EXTREMITIES: No cyanosis, no edema. NEUROLOGICAL: Awake and responsive. No focal deficits. PULSES: Pulses normal in all extremities. SKIN: Intact without significant lesions, or rashes. -- DATA -- LABS LACTIC ACID (08/30/23 10:27) LACTIC ACID 1.40 PTT (08/30/23 10:07) THROMBOPLASTIN TIME PARTIAL 28.4 BASIC METABOLIC PANEL (08/30/23 10:06) SODIUM 133L L POTASSIUM 3.8 CHLORIDE 101 CARBON DIOXIDE 25 GLUCOSE 90 BLOOD UREA NITROGEN 11 GLOMERULAR FILTRATION RATE >=60 max estimate CREATININE 1.10 CALCIUM 8.3 L MAG (08/30/23 10:06) MAGNESIUM 2.3 PHOS (08/30/23 10:06) PHOSPHOROUS 3.4 D CBC W/AUTO DIFF (08/30/23 10:06) WHITE BLOOD CELL 9.9 RED BLOOD CELL 3.47 L HEMOGLOBIN 11.2L L HEMATOCRIT 33.2L L MEAN CELL VOLUME 95.7 H MEAN CELL HGB 32.3 H MEAN CELL HGB CONCENTRATION 33.7 RED CELL DISTRIBUTION WIDTH 15.4 PLATELET COUNT 153 MEAN PLATELET VOLUME 9.2 NEUTROPHIL % 81.1 H LYMPHOCYTE % 12.5 L MONOCYTE % 5.7 EOSINOPHIL % 0.1 BASOPHIL % 0.3 NEUTROPHIL # 8.03 H LYMPHOCYTE # 1.24 MONOCYTE # 0.56 EOSINOPHIL # 0.01 BASOPHIL # 0.03 BLOOD GAS W/ELECTROLYTES (08/30/23 04:39) ARTERIAL BLOOD GAS PH 7.45 ARTERIAL BLOOD GAS PCO2 31.9 L ARTERIAL BLOOD GAS PO2 219.6 H BICARBONATE TOTAL HCO3 21.5 L BASE EXCESS -1.7 ABG O2 SATURATION 99.8 ARTERIAL FIO2 50.0 ABG VENT MODE Ventilator ALLENS TEST No SODIUM (POC) 132 L POTASSIUM (POC) 4.63 CHLORIDE (ARTERIAL) 97 L GLUCOSE 88 IONIZED CALCIUM 1.09 L POC LACTIC ACID 2.00 TOTAL HGB 13.2 OXYHEMOGLOBIN 99.0 H CARBOXYHEMOGLOBIN 0.7 METHEMOGLOBIN <0.8 HHb 0.2 TCO2 ARTERIAL 22.5 L VENOUS BLOOD GAS (08/30/23 04:10) VENOUS BLOOD GAS PH 7.34 L VENOUS BLOOD GAS PCO2 37.6 VENOUS BLOOD GAS PO2 51.0 VBG HCO3 20 VBG BASE EXCESS -5.4 VENOUS BLOOD GAS O2 SAT 80 VENOUS BLOOD GAS TYPE Venous VENOUS BLOOD GAS FIO2 50.0 VBG VENT MODE Ventilator COVID Asymp Ag (08/30/23 01:38) COVID 19 Asymptomatic IH AG NEGATIVE DRUGS OF ABUSE SCREEN URINE (08/30/23 01:38) UR COCAINE Negative UR CANABINOIDS Negative UR AMPHETAMINE Negative UR BARBITURATE Negative UR BENZODIAZEPINE Positive A UR OPIATES QUAL Negative UR PHENCYCLIDINE (PCP) Negative URINALYSIS DIPSTICK (08/30/23 01:38) UA COLOR YELLOW UA APPEARANCE CLEAR UA GLUCOSE DIPSTICK NEGATIVE UA BILIRUBIN DIPSTICK NEGATIVE UA KETONE DIPSTICK NEGATIVE UA SPECIFIC GRAVITY 1.025 UA BLOOD DIPSTICK MODERATE A UA PH DIPSTICK 6.0 UA PROTEIN DIPSTICK 10 UA UROBILINOGEN DIPSTICK NORMAL UA NITRITE DIPSTICK NEGATIVE UA LEUKOCYTE ESTERASE DIPSTICK NEGATIVE UA MICROSCOPIC (08/30/23 01:38) UA WBC 3-5 A UA RBC 6-10 A UA BACTERIA 1+ A UA SQUAMOUS CELLS NONE SEEN FIB (08/30/23 01:37) FIBRINOGEN 216 PTT (08/30/23 01:37) THROMBOPLASTIN TIME PARTIAL 25.5 PHOS (08/30/23 01:37) PHOSPHOROUS 5.2 H TROPI (08/30/23 01:37) TROPONIN-I 106.7 *H PROTHROMBIN TIME (08/30/23 01:37) PROTHROMBIN TIME PATIENT 11.2 INTERNATIONAL NORMAL RATIO 1.00 BNP (08/30/23 01:37) B-TYPE NATRIURETIC PEPTIDE 947 H LACTIC ACID (08/30/23 01:37) LACTIC ACID 1.80 CBC W/AUTO DIFF (08/30/23 01:37) WHITE BLOOD CELL 9.7 RED BLOOD CELL 3.69 L HEMOGLOBIN 12.2L L HEMATOCRIT 35.7L L MEAN CELL VOLUME 96.7 H MEAN CELL HGB 33.1 H MEAN CELL HGB CONCENTRATION 34.2 RED CELL DISTRIBUTION WIDTH 15.2 PLATELET COUNT 167 MEAN PLATELET VOLUME 9.1 NEUTROPHIL % 82.8 H LYMPHOCYTE % 10.5 L MONOCYTE % 5.9 EOSINOPHIL % 0.1 BASOPHIL % 0.3 NEUTROPHIL # 8.06 H LYMPHOCYTE # 1.02 MONOCYTE # 0.57 EOSINOPHIL # 0.01 BASOPHIL # 0.03 COMPREHENSIVE METABOLIC PANEL (08/30/23 01:37) SODIUM 132 L POTASSIUM 4.4 CHLORIDE 102 CARBON DIOXIDE 21 GLUCOSE 99 BLOOD UREA NITROGEN 7 L GLOMERULAR FILTRATION RATE >=60 max estimate CREATININE 1.00 TOTAL PROTEIN 6.2 ALBUMIN 4.0 CALCIUM 7.6 L BILIRUBIN TOTAL 0.9 SGOT/AST 78 H SGPT/ALT 74 H ALKALINE PHOSPHATASE 125.0 H MAG (08/30/23 01:37) MAGNESIUM 1.6 ALCOHOL (08/30/23 01:36) ALCOHOL 4 GLU BED (08/30/23 01:10) GLUBED 104 ARTERIAL BLOOD GAS (08/29/23 19:27) ARTERIAL BLOOD GAS PH 7.223 L ARTERIAL BLOOD GAS PCO2 55.5 H ARTERIAL BLOOD GAS PO2 83.8 BICARBONATE TOTAL HCO3 22.4 BASE EXCESS -6.1 L ABG O2 SATURATION 93.4 L ABG TYPE Arterial ARTERIAL FIO2 100.0 PaO2/FiO2 83.80 L ABG VENT MODE AC ABG TIDAL VOLUME 450 ABG PEEP 7.0 ABG SITE Right Radial ALLENS TEST Yes TOTAL HGB 15.8 OXYHEMOGLOBIN 93.0 METHEMOGLOBIN <0.8 TCO2 ARTERIAL 24.1 H CRITICAL VALUE N/A LACTIC ACID (08/29/23 18:15) LACTIC ACID 5.8 H PROTHROMBIN TIME (08/29/23 17:52) PROTHROMBIN TIME PATIENT 9.7 INTERNATIONAL NORMAL RATIO 0.8 PTT (08/29/23 17:52) THROMBOPLASTIN TIME PARTIAL 29.1 CBC W/AUTO DIFF (08/29/23 17:52) WHITE BLOOD CELL 10.9 RED BLOOD CELL 4.58 HEMOGLOBIN 14.9 HEMATOCRIT 45.5 MEAN CELL VOLUME 99 MEAN CELL HGB 32.5 MEAN CELL HGB CONCENTRATION 32.7 RED CELL DISTRIBUTION WIDTH 15.2 H PLATELET COUNT 231 MEAN PLATELET VOLUME 9.3 NEUTROPHIL % 63.7 IMMATURE GRANULOCYTE % 0.6 LYMPHOCYTE % 29.5 MONOCYTE % 5.1 EOSINOPHIL % 0.5 BASOPHIL % 0.6 NUCLEATED RBC % 0.2 NEUTROPHIL # 6.94 IMMATURE GRANULOCYTE # 0.060 LYMPHOCYTE # 3.20 MONOCYTE # 0.55 EOSINOPHIL # 0.05 BASOPHIL # 0.06 NUCLEATED RBC # 0.020 H TROP-I HIGH SEN (08/29/23 17:52) TROP-I HIGH SENSITIVITY 57 BASIC METABOLIC PANEL (08/29/23 17:52) SODIUM 126L L POTASSIUM 3.6 CHLORIDE 94L L CARBON DIOXIDE 21 ANION GAP 14.6 GLUCOSE 199H H BLOOD UREA NITROGEN 6 GLOMERULAR FILTRATION RATE >=60 max estimate CREATININE 1.0 BUN/CREATININE RATIO 6.0 L CALCIUM 8.4 L BNP (08/29/23 17:52) B-TYPE NATRIURETIC PEPTIDE 1007 H LIP (08/29/23 17:52) LIPASE 40 MAG (08/29/23 17:52) MAGNESIUM 2.3 LIVER FUNCTION PANEL (08/29/23 17:52) TOTAL PROTEIN 7.5 ALBUMIN 3.6 GLOBULIN 3.9 H BILIRUBIN TOTAL 0.9 BILIRUBIN DIRECT 0.1 BILIRUBIN INDIRECT 0.8 SGOT/AST 114 H SGPT/ALT 92 H ALKALINE PHOSPHATASE 158 H -- ASSESSMENT AND PLAN -- ADDITIONAL COMMENTS: A/P: Dx: . HTN emergency, resolved . Acute hypoxemic respiratory failure in invasive mechanical ventilation, resolving . Acute on chronic decompensated heart failure, CHF (HFrEF) . Elevated troponin, suspect type II NM . CAD s/p CABG x2 and PCIs as above . Acute interstitial and pulmonary edema . Hypervolemia . Abnormal LFTs Plan: -continue ICU level of care -lactic trending down now normal - continue adequate diuresis, on bumex - continue DAPT with ASA and Brilinta, and high intensity statin atorvastatin 80 mg daily - Hold BB for now - Extubated and on O2 NC 5L. Wean off O2 for DC preparation - Educated on lifestyle changes; alcohol and smoking cessation -- ATTESTATION -- TIME SPENT ON PATIENT CARE: - Direct - Counseling - Coordination of Care - Discharge Planning CARE ACTIVITIES / CARE COORDINATION: - I have reviewed the history and repeated the carias elements - I have seen and examined this patient - I have discussed the patient's condition with other members of the care team ADDITIONAL DETAIL: Discussed patient case with Dr. Keenan Kumari MD Internal Medicine Signed in PatientKeeper by Cynthia Rabago on 08/31/23 at 11:18 at 1118 ATTENTION *EDITS and/or ADDENDA must be made in Patient Keeper for this note. * * Edits and ammendments created in [facility] are not visible * * in Patient Keeper or the legal medical record (HPF). * RPT #: [id number] END OF REPORT [facility] 2023-08-30 08:15:00 [facility] ([facility]) Intensive Care Progress Note REPORT #: [id number] REPORT STATUS: Signed DATE: 08/30/23 TIME: 814 PATIENT: KOTA MONTES UNIT #: [id number] #: [id number] BED: 1 : 61 AGE: 62 SEX: M ATTEND: Sherrie Stein MD ADM AUTHOR: Radha Lakhani MD ATTENTION *EDITS and/or ADDENDA must be made in Patient Keeper for this note. * * Edits and ammendments created in [employer] are not visible * * in Patient Keeper or the legal medical record (HPF). * -- ASSESSMENT AND PLAN -- HOSPITAL COURSE TO DATE: A 62 yo M w HTN, HLD, CAD s/p CABG x2 (06/25), PCI (most recent 07/25), ICMP (EF 25-29%), Anxiety/Depression, ETOH Tobacco abuse transferred from [facility] ED after p/w SOB. He was found to have Resp failure 2/2 Pulm edema in the setting of HTN ER req intubation Pnt admitted to exessive drinking prior to coming to the hospital. He also drinks 3 cups of coffee daily. He is not compliant w Fluid intake as he was under the impression to remain hydrated and increase fluid intake. He is not compliant/conscious of salt intake. Doesn't weigh himself daily. - Overnight, admitted for Resp failure HTN ER. BL was labile - Remains intubated, not sedated. Following - Ketamine was off - No pressors - No ETT secretions - NPO - I/O ?? GENERAL ASSESSMENT: Neuro/Psych * Acute Encephalopathy - Toxic metabolic * ETOH Intoxication - h/o ETOH abuse * Anxiety/Depression * Analgesia - PRN Fentanyl +/- Ketamine gtt - Daily sedation vacation - Monitor for ETOH withdraw - Cont thiamine/folic acid - Multimodal Pain regimen - Cont home SSRI, with PRN Xanax - Delirium precautions Pulm * Acute Hypoxic and Hypercapnic Respiratory Failure * Acute Pulmonary Edema - in the setting of HTN ER in the setting of dietary non-compliance increase ETOH/caffeine intake - Reviewed CVR ABG. CXR w improved Pulm edema - Cont MV ACPC w protective lung ventilation. Titrate FiO2 to SPO2 > 94% - Daily SBT. Passed trial, will extubate to NC w PRN BiPAP - Diuresis as below - Pulm Hygiene Cards * HTN ER (resolved) * A/C S.HF * CAD - s/p PCI CABG * NSTEMI - Demand - EF 25% - Check Echo - MAPs goal > 65. SBP goal 120-140 antihypertensives - Bedside US shows an IVC of 1.7cm w >50% variation - No need for IVF. Gentle diuresis Bumex 0.5mg x 1-2 - Start Metoprolol 12.5mg - Cont DAPT statin - Pnt needs HF education, I spent more than 10 min educating about low salt diet, fluid restriction, decreasing ETOH/Caffeine intake, daily weights, lifestyle modification - Cardiology consulted - Consult HF educator GI * Transaminitis (mild) - possible congestive hepatopathy vs ETOH hepatitis - FU LFT - Will consider feeding once extubated - Bowel regimen Renal # Hypervolemia # HypoNa - NL renal function - Monitor UOP Cr trend - Diuresis as above - Fluid restriction 1.5L - Electrolyte protocol, maintain K >4.0, Phos >3.0, Mg >2.0 ID - No leukocytosis or fever - Bld Cx (OSH) pending - No evidence of sepsis or infection at present - No need for ABx Endo - Maintain goal BS 140-180 - Accuchecks. SSI - Hypoglycemia protocol Heme - H/H adequate, without evidence of bleeding - Transfuse for goal Hgb >7.0, platelets >10k or 50k with bleeding, and fibrinogen >150 MSK -PT/OT once extubated PPX -DVT: LSQ -GI: not indicated GOC -Code: FULL per patient and family (/NOK) -Advance Care Planning: unknown Disposition - Will consider transferring out of ICU in the evening. Consult Hospitalist. Will s/o once he is transferred out. Please call w questions or if needed Patient is critically ill and at risk of imminent life-threatening injury or Medications reviewed with ICU pharmacist -- OBJECTIVE -- VITALS (08/28 08:15 - 08/29 08:15): Temperature F: 98.3 (98.3 - 98.7) Temperature source: Oral Pulse Rate 80 (69 - 130) Respiratory rate: 10 (6 - 46) Blood pressure: 97/46 (55/24 - 221/122) Blood pressure source: Arterial I/Os (08/28 07:00 - 08/29 07:00): Net 366.00 Intake 541.00 Output 175 -EXAM- OTHER: Objective - General - Intubated sedated.No distress. Follows Heart - RRR, Soft S1 S2, no murmur Chest - GBAE w transmitted vent sounds. No wheezes. Abd - Soft, lax, NT, ND, -ve BS LE - No LE edema Skin - No rash Neck - Supple, non tender -- DATA -- MEDICATIONS HYDROcodone BITARTRATE/APAP 1 TAB PO Q6H PRN FOLIC ACID 1 MG PO DAILY BUMETANIDE 0.5 MG IV Q12HR KETAMINE HCL with/in SODIUM CHLORIDE 100 mL BAG 1000 MG IV TITRATE HYDROcodone BITARTRATE/APAP 1 TAB PO Q6H PRN DEXTROSE 50%-WATER 25 ML IV ASDIR PRN ATORVASTATIN CALCIUM 80 MG PO BEDTIME TICAGRELOR 90 MG PO Q12HR DOCUSATE SODIUM 200 MG PO DAILY INSULIN LISPRO 0 UNITS SUBQ Q6HR SODIUM PHOSPHATE with/in SODIUM CHLORIDE 0.9% 30 MM IV ASDIR (PRN) CALCIUM GLUC IN NACL, ISO-OSM 2 GM IV ASDIR (PRN) HALOPERIDOL LACTATE 5 MG IV Q6H PRN ESCITALOPRAM 20 MG PO DAILY HYDROmorphone HCL 1 MG IV Q4H PRN bisacodyL 10 MG RECTAL DAILY PRN ACETAMINOPHEN 650 MG PO Q6H PRN SOD BIPHOS/POT PHOSPHATE 2 PKT PO ASDIR PRN niCARdipine HCL with/in SODIUM CHLORIDE 100 mL BAG 25 MG IV TITRATE THIAMINE HCL 100 MG PO DAILY POTASSIUM CHLORIDE IN WATER 10 MEQ IV ASDIR (PRN) LIDOCAINE 1 PATCH TRANSDERM DAILY ONDANSETRON HCL/PF 4 MG IV Q4H PRN LABETALOL HCL 10 MG IV Q2H PRN methocarbamoL 750 MG PO TID POTASSIUM CHLORIDE 20 MEQ PO ASDIR PRN PREGABALIN 50 MG FEED-TUBE BID ASPIRIN 81 MG FEED-TUBE DAILY GLUCAGON 1 MG IM ASDIR PRN ENOXAPARIN SODIUM 40 MG SUBQ DAILY NICOTINE 21 MG TRANSDERM DAILY clonazePAM 1 MG PO BEDTIME MUPIROCIN 1 APPLIC NASAL BID SODIUM PHOSPHATE with/in SODIUM CHLORIDE 0.9% 20 MM IV ASDIR (PRN) POTASSIUM CHLORIDE 20 MEQ IV ASDIR (PRN) PANTOPRAZOLE with/in SODIUM CHLORIDE 0.9% 40 MG IV DAILY METOPROLOL TARTRATE 12.5 MG PO Q12HR MAGNESIUM SULFATE 2 GM IV ASDIR (PRN) MAGNESIUM SULFATE 4 G IV ASDIR (PRN) hydrALAZINE HCL 10 MG IV Q6H PRN NITROGLYCERIN 0.4 MG SL Q5M PRN ALPRAZolam 1 MG FEED-TUBE TID PRN polyethylene glycoL 3350 1 PKT PO DAILY LABS BLOOD GAS W/ELECTROLYTES (08/30/23 04:39) ARTERIAL BLOOD GAS PH 7.45 ARTERIAL BLOOD GAS PCO2 31.9 L ARTERIAL BLOOD GAS PO2 219.6 H BICARBONATE TOTAL HCO3 21.5 L BASE EXCESS -1.7 ABG O2 SATURATION 99.8 ARTERIAL FIO2 50.0 ABG VENT MODE Ventilator ALLENS TEST No SODIUM (POC) 132 L POTASSIUM (POC) 4.63 CHLORIDE (ARTERIAL) 97 L GLUCOSE 88 IONIZED CALCIUM 1.09 L POC LACTIC ACID 2.00 TOTAL HGB 13.2 OXYHEMOGLOBIN 99.0 H CARBOXYHEMOGLOBIN 0.7 METHEMOGLOBIN <0.8 HHb 0.2 TCO2 ARTERIAL 22.5 L VENOUS BLOOD GAS (08/30/23 04:10) VENOUS BLOOD GAS PH 7.34 L VENOUS BLOOD GAS PCO2 37.6 VENOUS BLOOD GAS PO2 51.0 VBG HCO3 20 VBG BASE EXCESS -5.4 VENOUS BLOOD GAS O2 SAT 80 VENOUS BLOOD GAS TYPE Venous VENOUS BLOOD GAS FIO2 50.0 VBG VENT MODE Ventilator COVID Asymp Ag (08/30/23 01:38) COVID 19 Asymptomatic IH AG NEGATIVE DRUGS OF ABUSE SCREEN URINE (08/30/23 01:38) UR COCAINE Negative UR CANABINOIDS Negative UR AMPHETAMINE Negative UR BARBITURATE Negative UR BENZODIAZEPINE Positive A UR OPIATES QUAL Negative UR PHENCYCLIDINE (PCP) Negative URINALYSIS DIPSTICK (08/30/23 01:38) UA COLOR YELLOW UA APPEARANCE CLEAR UA GLUCOSE DIPSTICK NEGATIVE UA BILIRUBIN DIPSTICK NEGATIVE UA KETONE DIPSTICK NEGATIVE UA SPECIFIC GRAVITY 1.025 UA BLOOD DIPSTICK MODERATE A UA PH DIPSTICK 6.0 UA PROTEIN DIPSTICK 10 UA UROBILINOGEN DIPSTICK NORMAL UA NITRITE DIPSTICK NEGATIVE UA LEUKOCYTE ESTERASE DIPSTICK NEGATIVE UA MICROSCOPIC (08/30/23 01:38) UA WBC 3-5 A UA RBC 6-10 A UA BACTERIA 1+ A UA SQUAMOUS CELLS NONE SEEN FIB (08/30/23 01:37) FIBRINOGEN 216 PTT (08/30/23 01:37) THROMBOPLASTIN TIME PARTIAL 25.5 PHOS (08/30/23 01:37) PHOSPHOROUS 5.2 H TROPI (08/30/23 01:37) TROPONIN-I 106.7 *H PROTHROMBIN TIME (08/30/23 01:37) PROTHROMBIN TIME PATIENT 11.2 INTERNATIONAL NORMAL RATIO 1.00 BNP (08/30/23 01:37) B-TYPE NATRIURETIC PEPTIDE 947 H LACTIC ACID (08/30/23 01:37) LACTIC ACID 1.80 CBC W/AUTO DIFF (08/30/23 01:37) WHITE BLOOD CELL 9.7 RED BLOOD CELL 3.69 L HEMOGLOBIN 12.2L L HEMATOCRIT 35.7L L MEAN CELL VOLUME 96.7 H MEAN CELL HGB 33.1 H MEAN CELL HGB CONCENTRATION 34.2 RED CELL DISTRIBUTION WIDTH 15.2 PLATELET COUNT 167 MEAN PLATELET VOLUME 9.1 NEUTROPHIL % 82.8 H LYMPHOCYTE % 10.5 L MONOCYTE % 5.9 EOSINOPHIL % 0.1 BASOPHIL % 0.3 NEUTROPHIL # 8.06 H LYMPHOCYTE # 1.02 MONOCYTE # 0.57 EOSINOPHIL # 0.01 BASOPHIL # 0.03 COMPREHENSIVE METABOLIC PANEL (08/30/23 01:37) SODIUM 132 L POTASSIUM 4.4 CHLORIDE 102 CARBON DIOXIDE 21 GLUCOSE 99 BLOOD UREA NITROGEN 7 L GLOMERULAR FILTRATION RATE >=60 max estimate CREATININE 1.00 TOTAL PROTEIN 6.2 ALBUMIN 4.0 CALCIUM 7.6 L BILIRUBIN TOTAL 0.9 SGOT/AST 78 H SGPT/ALT 74 H ALKALINE PHOSPHATASE 125.0 H MAG (08/30/23 01:37) MAGNESIUM 1.6 ALCOHOL (08/30/23 01:36) ALCOHOL 4 GLU BED (08/30/23 01:10) GLUBED 104 ARTERIAL BLOOD GAS (08/29/23 19:27) ARTERIAL BLOOD GAS PH 7.223 L ARTERIAL BLOOD GAS PCO2 55.5 H ARTERIAL BLOOD GAS PO2 83.8 BICARBONATE TOTAL HCO3 22.4 BASE EXCESS -6.1 L ABG O2 SATURATION 93.4 L ABG TYPE Arterial ARTERIAL FIO2 100.0 PaO2/FiO2 83.80 L ABG VENT MODE AC ABG TIDAL VOLUME 450 ABG PEEP 7.0 ABG SITE Right Radial ALLENS TEST Yes TOTAL HGB 15.8 OXYHEMOGLOBIN 93.0 METHEMOGLOBIN <0.8 TCO2 ARTERIAL 24.1 H CRITICAL VALUE N/A LACTIC ACID (08/29/23 18:15) LACTIC ACID 5.8 H PROTHROMBIN TIME (08/29/23 17:52) PROTHROMBIN TIME PATIENT 9.7 INTERNATIONAL NORMAL RATIO 0.8 PTT (08/29/23 17:52) THROMBOPLASTIN TIME PARTIAL 29.1 CBC W/AUTO DIFF (08/29/23 17:52) WHITE BLOOD CELL 10.9 RED BLOOD CELL 4.58 HEMOGLOBIN 14.9 HEMATOCRIT 45.5 MEAN CELL VOLUME 99 MEAN CELL HGB 32.5 MEAN CELL HGB CONCENTRATION 32.7 RED CELL DISTRIBUTION WIDTH 15.2 H PLATELET COUNT 231 MEAN PLATELET VOLUME 9.3 NEUTROPHIL % 63.7 IMMATURE GRANULOCYTE % 0.6 LYMPHOCYTE % 29.5 MONOCYTE % 5.1 EOSINOPHIL % 0.5 BASOPHIL % 0.6 NUCLEATED RBC % 0.2 NEUTROPHIL # 6.94 IMMATURE GRANULOCYTE # 0.060 LYMPHOCYTE # 3.20 MONOCYTE # 0.55 EOSINOPHIL # 0.05 BASOPHIL # 0.06 NUCLEATED RBC # 0.020 H TROP-I HIGH SEN (08/29/23 17:52) TROP-I HIGH SENSITIVITY 57 BASIC METABOLIC PANEL (08/29/23 17:52) SODIUM 126L L POTASSIUM 3.6 CHLORIDE 94L L CARBON DIOXIDE 21 ANION GAP 14.6 GLUCOSE 199H H BLOOD UREA NITROGEN 6 GLOMERULAR FILTRATION RATE >=60 max estimate CREATININE 1.0 BUN/CREATININE RATIO 6.0 L CALCIUM 8.4 L BNP (08/29/23 17:52) B-TYPE NATRIURETIC PEPTIDE 1007 H LIP (08/29/23 17:52) LIPASE 40 MAG (08/29/23 17:52) MAGNESIUM 2.3 LIVER FUNCTION PANEL (08/29/23 17:52) TOTAL PROTEIN 7.5 ALBUMIN 3.6 GLOBULIN 3.9 H BILIRUBIN TOTAL 0.9 BILIRUBIN DIRECT 0.1 BILIRUBIN INDIRECT 0.8 SGOT/AST 114 H SGPT/ALT 92 H ALKALINE PHOSPHATASE 158 H -- ATTESTATION -- CARE ACTIVITIES / CARE COORDINATION: - I have reviewed the history and repeated the carias elements - I have seen and examined this patient - I have reviewed the progress in the clinical course since the last examination - I have discussed the patient's condition with other members of the care team Signed in PatientKeeper by RADHA LAKHANI MD on 08/30/23 at 13:10 at 1310 ATTENTION *EDITS and/or ADDENDA must be made in Patient Keeper for this note. * * Edits and ammendments created in [employer] are not visible * * in Patient Keeper or the legal medical record (HPF). * RPT #: [id number] END OF REPORT [facility] 2023-08-30 04:43:00 [facility] ([facility]) Non-Operative Procedure Note REPORT #: [id number] REPORT STATUS: Signed DATE: 08/30/23 TIME: 442 PATIENT: KOTA MONTES UNIT #: [id number] ROOM #: P.0307 BED: 1 : 61 AGE: 62 SEX: M ATTEND: Sherrie Stein MD ADM AUTHOR: Sherrie Stein MD ATTENTION *EDITS and/or ADDENDA must be made in Patient Keeper for this note. * * Edits and ammendments created in [employer] are not visible * * in Patient Keeper or the legal medical record (HPF). * -- PROCEDURE -- -CODED DIAGNOSES- PRE-PROCEDURE DIAGNOSIS - Acute respiratory failure with hypoxia and hypercapnia POST-PROCEDURE DIAGNOSIS - Acute respiratory failure with hypoxia and hypercapnia NAME OF PROCEDURE: Ultrasound-guided right radial arterial line insertion PERFORMED BY: Sherrie Stein MD INDICATION(S): Hemodynamic monitoring, frequent ABGs RISKS/BENEFITS AND CONSENT: Emergent TIME-OUT PREP: Yes FINDINGS: Successful insertion of 20G, 4.5cm arterial line in right radial artery COMPLICATION(S): - No ESTIMATED BLOOD LOSS: 10 mls DISPOSITION: Patient to remain in ICU for continued monitoring and management. -- DESCRIPTION -- DESCRIPTION OF TECHNIQUE/PROCEDURE: Time out performed. Patient, procedure, and site confirmed. Radial aspect of distal forearm cleaned with Chlorhexidine then draped in usual sterile fashion. The radial artery was identified with ultrasound and 3cc of 1% lidocaine was injected around the area of intended insertion. The angiocatheter needle was then introduced into the artery under ultrasound guidance until consistent blood flow was noted in the return window. The spring-wire was then deployed into the vessel, then the arterial catheter advanced over the spring-wire, followed by removal of the angiocatheter and spring-wire apparatus. Arterial flow was confirmed with bright-red pulsatile blood flow emanating from the arterial catheter, as well as the presence of an arterial wave form on the monitor once connected. The arterial line was then secured in place with 2-0 suture, and a sterile dressing applied. Patient tolerated the procedure well with no immediate undue complications observed. Signed in PatientKeeper by Sherrie Stein MD on 08/30/23 at 04:59 at 0451 ATTENTION *EDITS and/or ADDENDA must be made in Patient Keeper for this note. * * Edits and ammendments created in [employer] are not visible * * in Patient Keeper or the legal medical record ([facility]). * RPT #: [id number] END OF REPORT [facility] 2023-08-30 03:25:00 [facility] ([facility]) Central Line Placement Note REPORT #: [id number] REPORT STATUS: Signed DATE: 08/30/23 TIME: 032 PATIENT: KOTA MONTES UNIT #: [id number] ROOM #: P.0307 BED: 1 : 61 AGE: 62 SEX: M ATTEND: Sherrie Stein MD ADM AUTHOR: Sherrie Stein MD ATTENTION *EDITS and/or ADDENDA must be made in Patient Keeper for this note. * * Edits and ammendments created in [employer] are not visible * * in Patient Keeper or the legal medical record ([facility]). * -- CENTRAL LINE PLACEMENT -- -CODED DIAGNOSES- PRE-PROCEDURE DIAGNOSIS - Acute respiratory failure with hypoxia and hypercapnia - Heart failure, systolic, with acute decompensation POST-PROCEDURE DIAGNOSIS - Acute respiratory failure with hypoxia and hypercapnia - Heart failure, systolic, with acute decompensation PRE-PROCEDURE DIAGNOSIS: Acute hypoxic and hypercapnic respiratory failure, acute decompensated systolic heart failure POST-PROCEDURE DIAGNOSIS: Acute hypoxic and hypercapnic respiratory failure, acute decompensated systolic heart failure TIME OUT COMPLETED: Yes DISCUSSED RISKS BENEFITS: Emergent CONSENT OBTAINED: Emergent OXYGEN ADMINISTERED: Yes PLACED ON SP02 BOOM BOSS: Yes HAND HYGIENE PROTOCOL FOLLOWED: Yes MAXIMUM STERILE BARRIER PRECAUTIONS: Yes CHLORHEXIDINE SKIN ANTISEPTIC: Yes SKIN PREPARATION: Chloraprep POSITION: Supine LOCAL ANESTHESIA: 1% lidocaine without epinephrine SIDE: Right LOCATION: Subclavian SIZE: 9 Fr OTHER 10cm, 9Fr multi-lumen access catheter TECHNIQUE: Ultrasound-guided GOOD BLOOD RETURN: Yes GUIDE WIRE REMOVED: Yes CATHETER SECURED: Suture DESCRIPTION OF PROCEDURE: Time out performed. Patient, site, and procedure confirmed. Chlorhexidine applied to operative site and area then draped in sterile fashion. The vein was identified using ultrasound, and 5cc of 1% lidocaine without epinephrine was injected around the insertion site. After which, a Mini-Stick Max introducer needle was inserted into the skin until return of non-pulsatile, dark blood. The guidewire was then inserted into the introducer needle, and the introducer needle removed, followed by insertion of a venous sheath over the guidewire using modified Seldinger technique, followed by removal of the introducer guidewire. To confirm venous access, blood was aspirated from the sheath, which was dark and non-pulstaile. After confirmation, the MAC guidewire was inserted into the venous sheath, followed by removal of the venous sheath. Ultrasound was used to confirm placement of the guidewire within the vein. After confirmation, a small vaishali was made at the level of the skin, followed by dilation of the vessel over the guidewire. After dilation, the catheter was loaded onto the dilater, and then advanced over the guidewire into the vessel using modified-Seldinger technique, then the guidewire and dilator removed. Both ports were confirmed to draw back blood and flush. The catheter was then sutured in place using a 2-0 silk suture and dressed with a CHG Tegaderm. Patient tolerated procedure well without any immediate undue complications. EBL 5cc. Lung ultrasound performed confirming lung sliding in right hemithorax. COMPLICATIONS: No PATIENT STABLE POST-PROCEDURE: Yes CATHETER TIP IN GOOD POSITION: Yes -- ATTESTATION -- CARE ACTIVITIES / CARE COORDINATION: - I have reviewed the history and repeated the carias elements - I have seen and examined this patient - I have reviewed the progress in the clinical course since the last examination - I have discussed the patient's condition with other members of the care team Signed in PatientKeeper by Sherrie Stein MD on 08/30/23 at 03:32 at 0332 ATTENTION *EDITS and/or ADDENDA must be made in Patient Keeper for this note. * * Edits and ammendments created in [employer] are not visible * * in Patient Keeper or the legal medical record (HPF). * RPT #: [id number] END OF REPORT [facility] 2023-08-30 00:25:00 [facility] ([facility]) Intensive Care Consultation REPORT #: [id number] REPORT STATUS: Signed DATE: 08/30/23 TIME: 002 PATIENT: KOTA MONTES UNIT #: [id number] ROOM #: P.0307 BED: 1 : 61 AGE: 62 SEX: M ATTEND: Sherrie Stein MD ADM AUTHOR: Sherrie Stein MD ATTENTION *EDITS and/or ADDENDA must be made in Patient Keeper for this note. * * Edits and ammendments created in [employer] are not visible * * in Patient Keeper or the legal medical record ([facility]). * -- ASSESSMENT AND PLAN -- RESUSCITATION DISCUSSION: FULL per patient and family (/NOK) HOSPITAL COURSE TO DATE: Patient is a 62-year-old male with PMH notable for CAD s/p 2V CAB (06/25) and PCI ('06, 06/24, 12/24, 07/25), ischemic cardiomyopathy (EF 25-29%), HTN, HLD, h/o ETOH abuse, tobacco abuse, anxiety/depression, and medical non-compliance initially presenting to [facility] with a chief complaint of shortness of breath on 08/28. Patient intubated and transferred to [facility] for management of acute hypoxic and hypercapnic respiratory failure in the setting of hypertensive emergency. GENERAL ASSESSMENT: Plan: Pain/Sedation -Agitated and with ongoing pain while on ventilator -Continue Precedex/Ketamine gtts while intubated, goal RASS 0 to -1 -APAP/Corinne 5mg/Corinne 10mg/Dilaudid IV PRN mild/moderate/severe/breakthrough pain -Standing Lyrica, Robaxin, lidocaine path Neuro/Psych #H/o ETOH Abuse and Polysubstance Abuse #Anxiety/Depression -Exam non-focal -Unknown last consumption, f/u UDS/ETOH level, monitor for withdrawal -Daily thiamine/folic acid -Continue home SSRI, with PRN anxiolytics -Frequent reorientation/redirection, optimize sleep/wake cycle, delirium precautions Respiratory #Acute Hypoxic and Hypercapnic Respiratory Failure #Flash Pulmonary Edema -Likely flash pulmonary edema in the setting of hypertensive emergency and/or component of decompensated heart failure -Initial CXR with bilateral infiltrates consistent with edema, repeat imaging with improvement following diuresis -Intubated at OSH, oxygenating well, wean vent support as tolerated (currently 10/, 50%), maintain goal SpO2 >92% -SBTs per protocol, will evaluate for extubation in AM -Diuresis, serial CXRs, CPT, pulmonary hygiene, encourage IS once extubated Cardiovascular #Hypertensive Emergency (resolved) #Acute on Chronic Decompensated Systolic Heart Failure (EF 25-29%) #Multivessel CAD s/p PCI and 2V CAB -Hypertensive on presentation to OSH, with evidence of end-organ damage -Currently off nitro and not requiring vasoactive agents, but with relative hypotension, possibly 2/2 sedation vs developing shock -Hold antihypertensives -Judicious volume resuscitation, low threshold for initiation of vasopressors/inotropes -Maintain goal MAP >65, SBP <140 -Continue DAPT/high-dose statin, resume GDMT as appropriate -Bumex 0.5mg IV Q12H to maintain net negative -Repeat TTE ordered to re-evaluate LV function -Cardiology consulted, will evaluate in AM Gastrointestinal #Nutrition #Transaminitis -Transaminitis likely acute 2/2 congestive hepatopathy superimposed on chronic inflammation in the setting of ETOH abuse -Trend LFTs, avoid hepatotoxins -Strict NPO for now, if unable to extubate will consider initiating tube feeds -SUP, bowel regimen Renal #Volume Overload #Hyponatremia -Renal function WNL -Suspect hypervolemic hyponatremia, asymptomatic -Strict I/O, monitor UOP -Close monitoring of renal function while diuresing -Fluid restriction -Trend Na -Electrolyte protocol, maintain K >4.0, Phos >3.0, Mg >2.0 Infectious Disease -Blood cultures ordered at OSH, Zosyn given -No evidence of sepsis or infection at present -Hold empiric abx for now, monitor fever curve Endocrine -Maintain goal BS 140-180 -Hypoglycemia protocol HEME -H/H adequate, without evidence of bleeding -Transfuse for goal Hgb >7.0, platelets >10k or 20k with bleeding, and fibrinogen >150 -LSQ for DVT ppx MSK -PT/OT consulted PPX -DVT: LSQ -GI: PPI QD GOC -Code: FULL per patient and family (/NOK) -Advance Care Planning: Dispo: Continue ICU level care Medications reviewed with ICU pharmacist Patient is critically ill and at risk of imminent life threatening injury or -- HISTORY -- REASON FOR CONSULT: Acute hypoxic and hypercapnic respiratory failure CHIEF COMPLAINT: Shortness of Breath HPI: Patient is a 62-year-old male with PMH notable for CAD s/p 2V CAB (06/25) and PCI ('06, 06/24, 12/24, 07/25), ischemic cardiomyopathy (EF 25-29%), HTN, HLD, h/o ETOH abuse, tobacco abuse, anxiety/depression, and medical non-compliance initially presenting to [facility] with a chief complaint of shortness of breath on 08/28. Patient intubated and transferred to [facility] for management of acute hypoxic respiratory failure in the setting of hypertensive emergency. Patient well known to service, with recent hospital admission in July for management of cardiogenic shock requiring Impella support. History obtained from discussion with OSH provider and chart review as the patient is intubated and family not present. He reportedly developed acute onset of shortness of breath on the evening of 08/28. EMS was contacted and he was transported to [facility]. On initial evaluation, he was noted to be tachypneic and diaphoretic, additionally he was reportedly "markedly hypertensive" on evaluation. He was placed on NRB, and CXR was obtained showing bilateral infiltrates consistent with pulmonary edema and possible RLL consolidation. EKG revealed sinus tachycardia with a LBBB and LVH, but no acute ST changes. Labs were notable for elevated BNP (1007), normal HS-troponin (57), hyponatremia (Na 126), normal renal function (Cr 1.0), transaminitis (114/92), elevated alkaline phosphatase (158), and lactic acidosis (5.8). CBC largely unremarkable. Patient quickly decompensated shortly after presentation and was escalated to BIPAP. He was given NTG IV and Lasix for hypertension, and blood cultures were drawn and Zosyn given for suspected pneumonia. Despite these measures, patient had ongoing increased work of breathing and subsequently was intubated, the etiology of his presentation thought to be flash pulmonary edema in the setting hypertensive emergency. Given patient's extensive cardiac history, he was transferred to [facility] for further evaluation. PAST MEDICAL HISTORY: CAD, ischemic cardiomyopathy (EF 25-29%), HTN, HLD, h/o ETOH abuse, tobacco abuse, anxiety/depression, and medical non-compliance PAST SURGICAL HISTORY: PCI (, 06/24, 12/24, 07/25) 2V CAB (06/25) FAMILY HISTORY: Unable to obtain -SOCIAL HISTORY- -TOBACCO USE- DETAILS/COMMENTS: Every day smoker -VAPING/INHALED SOLVENTS- DETAILS/COMMENTS: No prior history -ALCOHOL USE- DETAILS/COMMENTS: Prior history of daily ETOH consumption -DRUG USE- DETAILS/COMMENTS: Prior history of opioid use MARITAL STATUS: 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 with family -- SUBJECTIVE -- PATIENT NARRATIVE: On my evaluation, patient is intubated and sedated, but awakens to voice and follows commands. Agitated and appears anxious. Not requiring vasoactive agents. -REVIEW OF SYSTEMS- COMMENT: Unable to obtain, intubated. -- OBJECTIVE -- VITALS (08/28 00:25 - 08/29 00:25): Temperature F: 98.7 Temperature source: Axillary Pulse Rate 85 (85 - 130) Respiratory rate: 24 (18 - 46) Blood pressure: 111/56 (87/56 - 174/122) -EXAM- OTHER: General: Adult male, intubated, sedated, awake/alert, agitated when awake but responds appropriately/follows commands HEENT: NCAT, EOMI, PERRLA, clear conjunctiva, moist oral mucosa Neck: No JVD, no carotid bruits CV: RRR, no murmurs Lung: Bibasilar rales, no wheezing or rhonchi, unlabored breathing on ventilator GI: Soft, NT/ND, no rebound or guarding, bowel sounds present Neuro: No focal deficits appreciated, cranial nerves grossly intact MSK: Moving all extremities spontaneously Extremities: No pedal edema, bilateral extremities cool to touch but palpable DP/PT pulses Skin: No lesions or rashes Psych: Unable to assess -- DATA -- MEDICATIONS HYDROcodone BITARTRATE/APAP 1 TAB PO Q6H PRN FOLIC ACID 1 MG PO DAILY KETAMINE HCL with/in SODIUM CHLORIDE 100 mL BAG 1000 MG IV TITRATE HYDROcodone BITARTRATE/APAP 1 TAB PO Q6H PRN DEXTROSE 50%-WATER 25 ML IV ASDIR PRN ATORVASTATIN CALCIUM 80 MG PO BEDTIME TICAGRELOR 90 MG PO Q12HR DOCUSATE SODIUM 200 MG PO DAILY ENOXAPARIN SODIUM 40 MG SUBQ Q24H INSULIN LISPRO 0 UNITS SUBQ Q6HR HALOPERIDOL LACTATE 5 MG IV Q6H PRN ESCITALOPRAM 20 MG PO DAILY HYDROmorphone HCL 1 MG IV Q4H PRN bisacodyL 10 MG RECTAL DAILY PRN ACETAMINOPHEN 650 MG PO Q6H PRN SOD BIPHOS/POT PHOSPHATE 2 PKT PO ASDIR PRN THIAMINE HCL 100 MG PO DAILY POTASSIUM CHLORIDE IN WATER 10 MEQ IV ASDIR (PRN) MAGNESIUM SULFATE 1 EACH IV ASDIR PRN LIDOCAINE 1 PATCH TRANSDERM DAILY ONDANSETRON HCL/PF 4 MG IV Q4H PRN methocarbamoL 750 MG PO TID POTASSIUM CHLORIDE 20 MEQ PO ASDIR PRN FUROSEMIDE 40 MG IV BID@0500,1700 PREGABALIN 50 MG FEED-TUBE BID ASPIRIN 81 MG FEED-TUBE DAILY GLUCAGON 1 MG IM ASDIR PRN NICOTINE 21 MG TRANSDERM DAILY SODIUM PHOSPHATE 1 EACH IV ASDIR PRN clonazePAM 1 MG PO BEDTIME MUPIROCIN 1 APPLIC NASAL BID POTASSIUM CHLORIDE 20 MEQ IV ASDIR (PRN) NITROGLYCERIN 0.4 MG SL Q5M PRN ALPRAZolam 1 MG FEED-TUBE TID PRN polyethylene glycoL 3350 1 PKT PO DAILY LABS ARTERIAL BLOOD GAS (08/29/23 19:27) ARTERIAL BLOOD GAS PH 7.223 L ARTERIAL BLOOD GAS PCO2 55.5 H ARTERIAL BLOOD GAS PO2 83.8 BICARBONATE TOTAL HCO3 22.4 BASE EXCESS -6.1 L ABG O2 SATURATION 93.4 L ABG TYPE Arterial ARTERIAL FIO2 100.0 PaO2/FiO2 83.80 L ABG VENT MODE AC ABG TIDAL VOLUME 450 ABG PEEP 7.0 ABG SITE Right Radial ALLENS TEST Yes TOTAL HGB 15.8 OXYHEMOGLOBIN 93.0 METHEMOGLOBIN <0.8 TCO2 ARTERIAL 24.1 H CRITICAL VALUE N/A LACTIC ACID (08/29/23 18:15) LACTIC ACID 5.8 H CBC W/AUTO DIFF (08/29/23 17:52) WHITE BLOOD CELL 10.9 RED BLOOD CELL 4.58 HEMOGLOBIN 14.9 HEMATOCRIT 45.5 MEAN CELL VOLUME 99 MEAN CELL HGB 32.5 MEAN CELL HGB CONCENTRATION 32.7 RED CELL DISTRIBUTION WIDTH 15.2 H PLATELET COUNT 231 MEAN PLATELET VOLUME 9.3 NEUTROPHIL % 63.7 IMMATURE GRANULOCYTE % 0.6 LYMPHOCYTE % 29.5 MONOCYTE % 5.1 EOSINOPHIL % 0.5 BASOPHIL % 0.6 NUCLEATED RBC % 0.2 NEUTROPHIL # 6.94 IMMATURE GRANULOCYTE # 0.060 LYMPHOCYTE # 3.20 MONOCYTE # 0.55 EOSINOPHIL # 0.05 BASOPHIL # 0.06 NUCLEATED RBC # 0.020 H PROTHROMBIN TIME (08/29/23 17:52) PROTHROMBIN TIME PATIENT 9.7 INTERNATIONAL NORMAL RATIO 0.8 BNP (08/29/23 17:52) B-TYPE NATRIURETIC PEPTIDE 1007 H LIP (08/29/23 17:52) LIPASE 40 PTT (08/29/23 17:52) THROMBOPLASTIN TIME PARTIAL 29.1 TROP-I HIGH SEN (08/29/23 17:52) TROP-I HIGH SENSITIVITY 57 MAG (08/29/23 17:52) MAGNESIUM 2.3 LIVER FUNCTION PANEL (08/29/23 17:52) TOTAL PROTEIN 7.5 ALBUMIN 3.6 GLOBULIN 3.9 H BILIRUBIN TOTAL 0.9 BILIRUBIN DIRECT 0.1 BILIRUBIN INDIRECT 0.8 SGOT/AST 114 H SGPT/ALT 92 H ALKALINE PHOSPHATASE 158 H BASIC METABOLIC PANEL (08/29/23 17:52) SODIUM 126L L POTASSIUM 3.6 CHLORIDE 94L L CARBON DIOXIDE 21 ANION GAP 14.6 GLUCOSE 199H H BLOOD UREA NITROGEN 6 GLOMERULAR FILTRATION RATE >=60 max estimate CREATININE 1.0 BUN/CREATININE RATIO 6.0 L CALCIUM 8.4 L -- QUALITY -- -MEDICATIONS- - I attest that the foregoing medication list in the medical record is true, accurate, and complete to the best of my knowledge. -- ATTESTATION -- TIME SPENT ON PATIENT CARE: - Critical care: time spent apart from any procedure 49 minutes Patient was critically ill due to: Acute hypoxic and hypercapnic respiratory failure, hypertensive emergency, acute on chronic decompensated heart failure. My treatment and management were: discussed on ICU multi-disciplinary rounds with nursing, pharmacy, respiratory therapy, case management and consultants including cardiology regarding management of decompensated heart failure and hypertensive emergency. CARE ACTIVITIES / CARE COORDINATION: - I have reviewed the history and repeated the carias elements - I have seen and examined this patient - I have reviewed the progress in the clinical course since the last examination - I have discussed the patient's condition with other members of the care team Signed in PatientKeeper by Sherrie Stein MD on 08/30/23 at 01:28 at 0128 ATTENTION *EDITS and/or ADDENDA must be made in Patient Keeper for this note. * * Edits and ammendments created in [facility] are not visible * * in Patient Keeper or the legal medical record (HPF). * [facility] #: [id number] END OF REPORT [facility] 2023-08-29 18:35:00 [id number] [address] PATIENT NAME: KOTA MONTES ADMIT DATE: 08/29/23 ACCOUNT NO: [id number] ROOM NO: AGE: 62 REPORT TYPE: eELECTROCARDIOGRAM SEX: M ADMITTING PHYSICIAN: ATTENDING PHYSICIAN: Order: [id number] Test Reason : Test Date/Time Stamp: SatAug 29 2023 18:35:25 Blood Pressure : / mmHG Vent. Rate : 104 BPM Atrial Rate : 104 BPM P-R Int : 150 ms QRS Dur : 128 ms QT Int : 400 ms P-R-T Axes : 074 080 -31 degrees QTc Int : 526 ms Sinus tachycardia Possible Left atrial enlargement Left ventricular hypertrophy with QRS widening ( Kiko product ) T wave abnormality, consider inferior ischemia Abnormal ECG When compared with ECG of 29-AUG-2023 17:57, (Unconfirmed) ST less depressed in Inferior leads Confirmed by CONG RIVERA MD ([id number]) on 09/01/2023 9:58:22 PM Referred By: Ced Loera Confirmed by:CONG RIVERA MD at [address] [facility] [address] [facility] [id number] PATIENT NAME: KOTA MONTES [facility] 2023-08-29 18:05:00 [facility] ([facility]) EMERGENCY PROVIDER REPORT REPORT#:[id number] REPORT STATUS: Signed DATE:08/29/23 TIME: 1805 PATIENT: KOTA MONTES UNIT #: [id number] ROOM: BED: AGE: 62 SEX: M PCP PHYS: Ced Loera PA SERVICE AUTHOR: Luke Artis MD * ALL edits or amendments must be made on the electronic/computer document * HPI-Dyspnea/Wheezing Free Text HPI Notes Free Text HPI Notes 62 male history of extensive CAD brought in for shortness of breath on nonrebreather mask by paramedics. Patient was diaphoretic tachycardic markedly tachypneic upon arrival. Patient states of compliance to medications General Initial Greet Date/Time 08/29/23 3012 Presentation Chief Complaint Shortness of breath Review of Systems ROS Statements Unable to Obtain ROS Medical condition Past Medical History - Adult Stated Complaint STEMI Allergies Coded Allergies: No Known Allergies (08/30/23) Home Medications Active Scripts methocarbamoL (Robaxin) 750 MG PO TID methocarbamoL (Robaxin) 750 MG PO TID #30 TAB Prov: 08/31/23 Metoprolol Tartrate (Lopressor) 12.5 MG PO BID Metoprolol Tartrate (Lopressor) 12.5 MG PO BID #60 TAB Prov: 08/31/23 Reported Medications Folic Acid 1 MG PO DAILY Potassium Chloride Er (Klor-Con M20) 20 MEQ PO DAILY Atorvastatin (Lipitor) 80 MG PO BEDTIME Bumetanide (Bumex) 1 MG PO DAILY Aspirin Ec 81 MG PO DAILY Pregabalin (Lyrica) 50 MG PO BID Ticagrelor (Brilinta) 90 MG PO Q12HR Escitalopram (Lexapro) 20 MG PO DAILY Thiamine (Vitamin B-1) 100 MG PO DAILY Discontinued Reported Medications Trazodone (Desyrel) 100 MG PO BEDTIME Metoprolol Tartrate (Lopressor) 25 MG PO BID Hydrocodone/Acetaminophen (HYDROcodone/APAP 10/325) 1 TAB PO Q6H PRN pain scale 7-10 (use 1st) Methocarbamol (Robaxin) 1,000 MG PO TID Past Medical History: Reports: Coronary artery disease, Hypertension, Dyslipidemia. Additional Medical History History of NM Past Surgical History: Reports: CABG. Additional Surgical History Cardiac stents, right hip hardware Alcohol Use Alcohol use Drug Use Denies recreational drugs Physical Exam Vital Signs Vital Signs First Documented: Result Date Time O2 Delivery Non rebreather mask 08/28 174 O2 Flow Rate 12 08/28 1749 Temp 98.7 08/28 1749 Pulse Ox 98 08/28 1757 B/P 158/101 08/28 1757 B/P Mean 122 08/28 1757 Pulse 129 08/28 1757 Resp 30 08/28 1804 FiO2 100 08/28 1821 Last Documented: Result Date Time Pulse Ox 77 08/28 2303 O2 Delivery Ventilator 08/28 2302 Temp 98.7 08/28 2255 B/P 111/56 08/28 2226 B/P Mean 78 08/28 2226 Pulse 85 08/28 2215 Resp 24 08/28 2215 FiO2 100 08/28 1837 O2 Flow Rate 12 08/28 1750 Review of Vital Signs Reviewed Free Text PE Notes Free Text PE Notes Const: Well-nourished, Well-developed, severe distress Eyes: PERRL ,EOM intact no conjunctival injection ENMT: Normocephalic/Atraumatic external nose and ears Neck: Symmetric, trachea midline CVS: +S1/S2, No murmurs or gallops Peripheral pulses 2+ tachycardia RESP: marked tachypnea, diminished breath sounds GI: Nontender/Nondistended, MSK: Atraumatic Extremities w/o deformity or ttp. No cyanosis Skin: Warm, No rashes or lesions, diaphoretic Neuro: No focal deficits, Sensation grossly intact Psych: Awake, Alert, Oriented (AAO) x3 . Appropriate mood and affect Interpretation Diagnostics Lab Results Interpretation Results Laboratory Tests 08/29/231751: [Embedded Image Not Available] Laboratory Tests: 08/28 1752 Chemistry Sodium (135 - 145 mmol/L) 126 L Potassium (3.5 - 5.1 mmol/L) 3.6 Chloride (98 - 107 mmol/L) 94 L Carbon Dioxide (21 - 32 mmol/L) 21 Anion Gap (2.0 - 16.0) 14.6 BUN (4 - 23 mg/dL) 6 Creatinine (0.6 - 1.5 mg/dL) 1.0 Glomerular Filtr Rate (ml/min) >=60 max estimate BUN/Creatinine Ratio (12.0 - 20.0) 6.0 L Glucose (65 - 99 mg/dL) 199 H Calcium (8.5 - 10.1 mg/dL) 8.4 L Magnesium (1.8 - 2.4 mg/dL) 2.3 Total Bilirubin (0.2 - 1.2 mg/dL) 0.9 Direct Bilirubin (0.0 - 0.3 mg/dL) 0.1 Indirect Bilirubin (0.0 - 0.8 mg/dL) 0.8 AST (15 - 37 U/L) 114 H ALT (6 - 50 U/L) 92 H Total Alk Phosphatase (45 - 117 U/L) 158 H Troponin I High Sens (0 - 78 pg/mL) 57 B-Natriuretic Peptide (0 - 100 pg/mL) 1007 H Total Protein (6.4 - 8.2 g/dL) 7.5 Albumin (3.4 - 5.0 g/dL) 3.6 Globulin (2.3 - 3.5 g/dL) 3.9 H Lipase (13 - 75 U/L) 40 Coagulation INR (0.8 - 1.1 RATIO) 0.8 APTT (25.1 - 36.5 SECONDS) 29.1 PT Patient/Control Mix (9.4 - 12.5 SECONDS) 9.7 Hematology WBC (4.5 - 11.0 10 3/uL) 10.9 RBC (4.30 - 5.90 10 6/uL) 4.58 Hgb (14.0 - 18.0 g/dL) 14.9 Hct (40.0 - 55.0 %) 45.5 MCV (81 - 102 fL) 99 MCH (26.0 - 34.0 pg) 32.5 MCHC (31.0 - 37.0 g/dL) 32.7 RDW (11.6 - 14.4 %) 15.2 H Plt Count (150 - 400 10 3/uL) 231 MPV (9.0 - 12.6 fL) 9.3 Neut % (Auto) (33.0 - 76.0 %) 63.7 Lymph % (Auto) (14.0 - 56.4 %) 29.5 Williams % (Auto) (0.0 - 12.9 %) 5.1 Eos % (Auto) (0.0 - 7.0 %) 0.5 Baso % (Auto) (0 - 2.0 %) 0.6 Neut # (Auto) (1.5 - 7.0 10 3/uL) 6.94 Lymph # (Auto) (1.50 - 4.00 10 3/uL) 3.20 Williams # (Auto) (0.20 - 0.80 10 3/uL) 0.55 Eos # (Auto) (0.0 - 0.5 10 3/uL) 0.05 Baso # (Auto) (0.0 - 0.1 10 3/uL) 0.06 Abs Immat Gran (auto) (0.000 - 0.100 x10 3/uL) 0.060 Immature Gran % (0.0 - 1.0 %) 0.6 Nucleated RBC % (0 - 0.2 %) 0.2 Nucleated RBCs # (0.000 - 0.012 10 3/uL) 0.020 H 08/28 08/28 1815 1927 Blood Gas Puncture Site Right Radial ABG pH (7.35 - 7.45) 7.223 L ABG pCO2 (35.0 - 45.0 mmHg) 55.5 H ABG pO2 (80.0 - 100.0 mmHg) 83.8 ABG PO2/FiO2 Ratio (>200) 83.80 L ABG HCO3 (22.0 - 26.0 mmol/L) 22.4 ABG Total CO2 (15 - 23 mL/dL) 24.1 H ABG O2 Saturation (94.0 - 98.0 %) 93.4 L ABG Base Excess (0.0 - 2.0 mmol/L) -6.1 L ABG Carboxyhemoglobin (92.0 - 98.0 %) 93.0 Dat Test Yes Methemoglobin (0 - 1.5 %) <0.8 Total Hemoglobin (13.0 - 17.0 g/dL) 15.8 Patient On Oxygen Arterial Vent Mode AC FiO2 (%) 100.0 Tidal Volume (cc) 450 PEEP (cmH2O) 7.0 Chemistry Lactic Acid (0.4 - 2.0 mmol/L) 5.8 H Microbiology: Date/Time Procedure - Status Source Growth 08/28 1814 Blood Culture - COMP BLOOD 08/28 1814 Blood Culture - COMP BLOOD 08/28 1800 Blood Culture - CAN BLOOD Cancelled: Auto-cancelled after 2 days. 08/28 1800 Blood Culture - CAN BLOOD Cancelled: Auto-cancelled after 2 days. Recent Impressions: RADIOLOGY - XR CHEST 1 V 08/28 1800 Report Impression - Status: SIGNED Entered: 08/29/20231829 IMPRESSION: Increased right mid to basilar pulmonary opacity which may represent pneumonia. Mild pulmonary vascular congestion/edema with cardiomegaly. Impression By: [email or web address] - Wenceslao Orona MD RADIOLOGY - XR CHEST 1 V 08/28 1829 Report Impression - Status: SIGNED Entered: 08/29/20231924 IMPRESSION: Stable exam. Pulmonary edema with coexistent infiltrate at the right lung base concerning for pneumonia. Impression By: [email or web address] - Luis Valderrama MD ECG #1 Interpretation Text/Dict Note Sinus tachycardia @ 128 BPM, poor baseline, LBBB, RAD, LVH with strain When compared to EKG 08/22/23 no significant changes Date 08/29/23 Time 175 ECG #2 Interpretation Text/Dict Note Sinus tachycardia @ 104 BPM, LVH, strain, LBBB, , RAD, no significant change from 08/22/23, no evolving changes Date 08/29/23 Time 183 Interpreted by and reviewed by me, Independently interpreted, ED physician Procedures Intubation #1 Start Time 1823 Time Spent (minutes) 20 Procedure Performed by ED physician Consent/Setup/Site Prep Verified correct patient, Consent from patient, Time-out performed, Oxygen administered, Pulse oximeter applied, traffic monitor specialist applied, Hand hygiene observed, Stand sterile technique, Removed dentures Patient Position Sniff position Blade/ET Tube/Route Mac, ET tube cuffed, Route: oral Procedural Sedation/Analgesia Sedation: Etomidate Neuromuscular Agent Rocuronium ET Confirmation Direct visualization, BS equal, End tidal CO2 device, CXR, Rising O2 sat Secured/Marked ET tube device Number of Attempts 1 Complications None Post-Procedure Condition improved, Tolerated procedure well, Patient stable Ventilator Management Start Time 1829 Time Spent (minutes) 60 Mode Assist control FiO2 80% Tidal Volume (ml) 450 Rate 22 O2 Saturation % 99 Re-Evaluation MDM Free Text MDM Notes Free Text MDM Notes 62 M with what appaers to be flash pulmonary edema markedly hypertensive upon arrival Given IV NTG and placed on BIPAP Septic workup initiated but doubt sepsis more likely pulmonary edema, Zosyn given empiricially Given IV Lasix EKG ordered and independently intepreted no significant change from previous EKG of 08/22/23 labs ordered and reviewed XR chest ordered and independently reviewed Nursing having difficulty placing NG tube, they attempted nasal I Placed NG tube via video guidance via laryngoscope Patient not given additional fluid due patient having acute life threatening pulmonary edema upon arrival. Re-Evaluation/Progress #2 Text/Dict Note Patient endorses he is an alcoholic transient hypotension, held versed ED Course Medication(s) Ordered Medication(s) Ordered: Anti-Infective Agents Sig/Alfonzo Start time Last Medication Dose Route Stop Time Status Admin Piperacillin Sod/ 3.375 GM X1ED STA 08/28 180 DC 08/28 Tazobactam Sod IV 08/28 183 1809 Sodium Chloride 100 ML Cardiovascular Drugs Sig/Alfonzo Start time Last Medication Dose Route Stop Time Status Admin Nitroglycerin/ 250 ML X1ED STA 08/28 180 AC 08/28 Dextrose IV 09/08 0401 1810 Nitroglycerin/ 250 ML .STK-MED ONE 08/28 1752 DC Dextrose IV Central Nervous System Agents Sig/Alfonzo Start time Last Medication Dose Route Stop Time Status Admin Dexmedetomidine/ 100 ML X1ED STA 08/28 2034 CKD 08/28 Sodium Chloride IV 09/02 0034 2051 Midazolam HCl 2 MG X1ED STA 08/28 2000 DC 08/28 IV 08/28 Midazolam HCl 100 ML X1ED STA 08/28 2000 CKD 08/28 IV 09/02 0000 2006 Midazolam HCl 1 MG X1ED STA 08/28 1927 DC 08/28 IV 08/28 192 1944 Fentanyl Citrate 50 MCG X1ED STA 08/28 183 DC 08/28 IV 08/28 1840 1849 Fentanyl Citrate 250 ML X1ED STA 08/28 1824 CKD 08/28 IV 09/08 0423 1843 Electrolytic, Caloric, And Leandro Sig/Alfonzo Start time Last Medication Dose Route Stop Time Status Admin Calcium Gluconate/ 100 ML X1ED STA 08/28 211 CKD Sodium Chloride IV 08/28 2210 Sodium Chloride 250 ML X1ED STA 08/28 2110 AC IV 08/29 2111 Furosemide 40 MG X1ED STA 08/28 1802 DC 08/28 IV 08/28 1803 1809 Vitamins Sig/Alfonzo Start time Last Medication Dose Route Stop Time Status Admin Thiamine HCl 100 MG X1ED STA 08/28 2110 AC IV 08/29 2111 Consultation Consultation Referral/Consult Name Kurtis Lynch MD Supplier Quality Manager Called [employer] Discussed with end user consultant, Agrees with eval, Agrees with plan, Will see patient Requested Call Time 1927 Requested Call Date 08/29/23 Call Returned Call returned Call Returned Time 1927 Call Returned Date 08/29/23 Free Text Consult Notes Patient to be transferred to [facility] Patient Discharge Departure Vital Signs/Condition Vital Signs First Documented: Result Date Time O2 Delivery Non rebreather mask 08/28 1749 O2 Flow Rate 12 08/28 1749 Temp 98.7 08/28 1749 Pulse Ox 98 08/28 1757 B/P 158/101 08/28 1757 B/P Mean 122 08/28 1757 Pulse 129 08/28 1757 Resp 30 08/28 1804 FiO2 100 08/28 1821 Last Documented: Result Date Time Pulse Ox 77 08/28 2303 O2 Delivery Ventilator 08/28 2302 Temp 98.7 08/28 2255 B/P 111/56 08/28 2226 B/P Mean 78 08/28 2226 Pulse 85 08/28 2215 Resp 24 08/28 2215 FiO2 100 08/28 1837 O2 Flow Rate 12 08/28 1750 All vital signs available at the time of this entry have been reviewed. Clinical Impression Clinical Impression Primary Impression: Flash pulmonary edema Secondary Impressions: Acute respiratory failure, Hypertensive emergency Disposition Decision Transfer )( Request Time 1927 )( Request Date 08/29/23 Call Returned Time 2008 Spoke with: Specialty physician [facility] Transfer Accepted Yes Accepted by: Dr. Stein )( Acceptance Time 2009 )( Acceptance Date 08/29/23 Transfer Reason Continuity of care Patient Status Stable for transfer Critical Care Time Spent (minutes): 75 Services Performed Patient management by me, Time spent at bedside, Reviewing test results, Reviewing imaging, Discussing patient care, Documentation in record, Time with fam/surrogate Separately billable procedures excluded from time. Patient was critically ill due to: CHF, respiratory failure, HTN CC Note 1 Total critical care time [75] minutes. Total critical care time documented does not include time spent on separately billed procedures or the services of residents, students, nurses or physician assistants. I personally saw and examined the patient. I have reviewed all diagnostic interpretations and treatment plans as written. I was present for the carias portions of any procedures performed and the inclusive time noted in any critical care statement. Critical care time includes patient management by me, time spent at the patients bedside, time to review lab and imaging results, discussing patient care, documentation in the medical record, and time spent with the family or caregiver. Quality Measures Current Medications Attest: Medication review at 2109 RPT #:[id number] END OF REPORT [facility] 2023-08-22 15:20:00 [facility] ([facility]) EMERGENCY PROVIDER REPORT REPORT#:[id number] REPORT STATUS: Signed DATE:08/22/23 TIME: 1520 PATIENT: KOTA MONTES UNIT #: [id number] ROOM: BED: AGE: 62 SEX: M PCP PHYS: Kurtis Lynch MD SERVICE AUTHOR: Pearl Mcgill MD * ALL edits or amendments must be made on the electronic/computer document * Pearl Mcgill 08/22/23 1520: HPI-Chest Pain 40 and Over Free Text HPI Notes Free Text HPI Notes 62 y/o M with HTN, HLD, CAD and NM s/p PCI 2005, 06/2022, 12/24/2022, S/P CABG x 2 BOGGS to LAD and SVG to OM (Dr. Pike) in 06/13/2023, Hx of alcohol abuse presents via EMS with chest pain and dyspnea onset yesterday after lifting a heavy object. Reports dyspnea worse with exertion. No or lower extremity swelling. Has only been taking his Lasix as needed. He has followed up with business department chair, Dr. Eduardo Per chart review pt underwent CABg 06/2023, readmitted 07/2023 for respiratory distress sp rpt LHC, EF <20%, dischargd 08/01/2023 General Initial Greet Date/Time 08/22/23 1510 Presentation Chief Complaint Shortness of breath Hx Obtained From Patient Sudden in Onset? Yes Onset Occurred Yesterday Symptom Duration Constant Progression since Onset Constant )( Migration/Movement None Risk-Chest Pain 40 and Over Risk Stratification )( HEART for MACE )( HEART for MACE Response Value History Mod index of suspicion 1 ECG Interpretation Nonspec repol disturb 1 Age Age under 45 0 Risk Factors for CAD 3+ CAD risk factors 2 Total 4 HEART Score for MACE 4-7 (mod risk 12%-16.6%) Review of Systems ROS Statements All systems rev neg except as marked. Focused Review of Systems Respiratory Reports: Shortness of breath. Past Medical History - Adult Stated Complaint CHEST PAIN/SOB Allergies Coded Allergies: No Known Allergies (02/12/21) Home Medications Active Scripts Hydrocodone/Acetaminophen (HYDROcodone/APAP ) 1 TAB PO Q6H PRN pain scale 7-10 (use 1st) 10 Days #40 TAB Prov: 08/01/23 Bumetanide (Bumex) 1 MG PO DAILY Bumetanide (Bumex) 1 MG PO DAILY #90 TAB Prov: 08/01/23 Potassium Chloride Er (Klor-Con M20) 20 MEQ PO DAILY Potassium Chloride Er (Klor-Con M20) 20 MEQ PO DAILY #90 TAB Prov: 08/01/23 Aspirin Ec 81 MG PO DAILY Aspirin Ec 81 MG PO DAILY #90 TAB Prov: 08/01/23 Pregabalin (Lyrica) 50 MG PO BID Pregabalin (Lyrica) 50 MG PO BID #90 CAP Prov: 08/01/23 Ticagrelor (Brilinta) 90 MG PO Q12HR Ticagrelor (Brilinta) 90 MG PO Q12HR #90 TAB Ref 3 Prov: 08/01/23 Escitalopram (Lexapro) 20 MG PO DAILY Escitalopram (Lexapro) 20 MG PO DAILY #90 TAB Prov: 08/01/23 Thiamine (Vitamin B-1) 100 MG PO DAILY Thiamine (Vitamin B-1) 100 MG PO DAILY #90 TAB Prov: 08/01/23 Atorvastatin (Lipitor) 80 MG PO BEDTIME Atorvastatin (Lipitor) 80 MG PO BEDTIME #90 TAB Prov: 08/01/23 Methocarbamol (Robaxin) 1,000 MG PO TID Methocarbamol (Robaxin) 1,000 MG PO TID #90 TAB Prov: 08/01/23 Trazodone (Desyrel) 100 MG PO BEDTIME Trazodone (Desyrel) 100 MG PO BEDTIME #90 TAB Ref 3 Prov: 08/01/23 Reported Medications Folic Acid 1 MG PO DAILY Metoprolol Tartrate (Lopressor) 25 MG PO BID Past Medical History: Reports: Coronary artery disease, Hypertension, Dyslipidemia. Additional Medical History History of NM Past Surgical History: Reports: CABG. Additional Surgical History Cardiac stents, right hip hardware Alcohol Use Alcohol use Drug Use Denies recreational drugs Smoking status for patients 13 years old or older: Unknown,if ever smoked Physical Exam Vital Signs Review of Vital Signs Reviewed Free Text PE Notes Free Text PE Notes GENERAL APPEARANCE: Alert, generally well-appearing, no acute distress. HEENT: Normocephalic, atraumatic. Moist mucous membranes. EOMI, clear conjunctiva, oropharynx clear. NECK: Supple without lymphadenopathy. No stiffness or swelling. Trachea midline. HEART: Normal rate and regular rhythm, normal S1/S1, no murmur. LUNGS: CTAB. Mild bibasilar crackles ABDOMEN: Soft, nontender, nondistended. Normal bowel sounds. No masses. BACK: No obvious deformity. No midine spine tenderness. No CVA tenderness. EXTREMITIES: No swelling or tenderness. Normal ROM NEUROLOGICAL: Grossly non-focal. Alert and oriented, moving all 4 extremities. No facial droop. SKIN: Warm and dry without any rash. No pallor or cyanosis PSYCH: Normal mood and affect. Normal judgement. Interpretation Diagnostics Lab Results Interpretation Considerations Independ review imaging, Reviewed prior records Lab Imaging Statement Laboratory radiographic studies reviewed and considered in the medical decision-making. I personally reviewed chest x-ray images and interpreted follows: Normal chest x-ray, no cardiomegaly, no mediastinum, no pulmonary edema or infiltrate. Point of Care Testing Pulse Oximetry Pulse Ox % 98 On: Room air Interpretation Interpreted by me, Pulse oximetry normal Time 1515 ECG #1 Interpretation Date 08/22/23 Time 1513 Interpreted by and reviewed by me, Independently interpreted, ED physician NL ECG Interpretation Normal sinus rhythm, No acute ischemic changes, No STEMI, Normal QRS Rate 116 ECG Q-T-ST - NM T-waves flat-inv lat wall Rhythm Tachycardia Conduction/Bricelyn Right axis deviation Re-Evaluation MDM Free Text MDM Notes Free Text MDM Notes 62-year-old male presenting with complaints of dyspnea and chest pain. EKG with sinus tachycardia, no acute ischemic changes. Negative troponin. X-ray with some mild pulmonary edema. Patient received aspirin and Lasix. I had lengthy discussion with him that we would check a CTA to rule out PE and then discussed with his business department chair regarding disposition. While I was tending to a very critical patient the patient apparently became very upset that he had not yet been updated on the CT results and wanted to sign out AGAINST MEDICAL ADVICE. I was on the phone with transfer center during this conversation and unable to talk to the patient before he became angry and left the department. Dr. Andrews did speak to the patient. The CT was negative for PE and showed some small pleural effusions. I had a pending page out to his business department chair Dr. Eduardo at the time that he left. The medical decision making includes independent review of any ordered imaging and EKGs and are in agreement with radiology interpretation unless documented otherwise. Individual labs and/or microbiologic data along with urine studies ordered and resulted at time of dictation have been interpreted by me and do not appear to contribute to an emergency diagnosis unless as mentioned above. Outside records including the most recent discharge summary, if available, have been reviewed. Consultants including hospitalists involved in the case as ordered/documented in the EMR agree with ED plan unless as documented above Patient Discharge Departure Discharge/Care Plan Referrals Provider Referral: Marshall Holden MD Address: [address] [place] [address] [place] [address] Arden Andrews 08/22/23 1857: Physical Exam Vital Signs Vital Signs First Documented: Result Date Time Pulse Ox 98 08/21 1509 B/P 154/105 08/21 1509 B/P Mean 121 08/21 1509 O2 Delivery Room air 08/21 1509 Temp 36.9 08/21 1509 Pulse 114 08/21 1509 Resp 22 08/21 1509 Last Documented: Result Date Time Pulse Ox 99 08/21 1730 B/P 116/65 08/21 1730 B/P Mean 85 08/21 1730 Pulse 102 08/21 1730 Resp 15 08/21 1730 O2 Delivery Room air 08/21 1509 Temp 36.9 08/21 1509 Interpretation Diagnostics Lab Results Interpretation Results Laboratory Tests 08/22/23 1520: [Embedded Image Not Available] Laboratory Tests: 08/21 08/21 1520 1730 Chemistry Sodium (135 - 145 mmol/L) 138 Potassium (3.5 - 5.1 mmol/L) 4.4 Chloride (98 - 107 mmol/L) 106 Carbon Dioxide (21 - 32 mmol/L) 25 Anion Gap (2.0 - 16.0) 11.4 BUN (4 - 23 mg/dL) 7 Creatinine (0.6 - 1.5 mg/dL) 0.8 Glomerular Filtr Rate (ml/min) >=60 max estimate BUN/Creatinine Ratio (12.0 - 20.0) 8.8 L Glucose (65 - 99 mg/dL) 93 Calcium (8.5 - 10.1 mg/dL) 9.4 Troponin I High Sens (0 - 78 pg/mL) 53 57 Hematology WBC (4.5 - 11.0 10 3/uL) 11.1 H RBC (4.30 - 5.90 10 6/uL) 3.82 L Hgb (14.0 - 18.0 g/dL) 12.2 L Hct (40.0 - 55.0 %) 37.9 L MCV (81 - 102 fL) 99 MCH (26.0 - 34.0 pg) 31.9 MCHC (31.0 - 37.0 g/dL) 32.2 RDW (11.6 - 14.4 %) 14.6 H Plt Count (150 - 400 10 3/uL) 240 MPV (9.0 - 12.6 fL) 9.2 Neut % (Auto) (33.0 - 76.0 %) 72.0 Lymph % (Auto) (14.0 - 56.4 %) 19.6 Williams % (Auto) (0.0 - 12.9 %) 6.6 Eos % (Auto) (0.0 - 7.0 %) 0.7 Baso % (Auto) (0 - 2.0 %) 0.6 Neut # (Auto) (1.5 - 7.0 10 3/uL) 7.96 H Lymph # (Auto) (1.50 - 4.00 10 3/uL) 2.17 Williams # (Auto) (0.20 - 0.80 10 3/uL) 0.73 Eos # (Auto) (0.0 - 0.5 10 3/uL) 0.08 Baso # (Auto) (0.0 - 0.1 10 3/uL) 0.07 Abs Immat Gran (auto) (0.000 - 0.100 x10 3/uL) 0.050 Immature Gran % (0.0 - 1.0 %) 0.5 Nucleated RBC % (0 - 0.2 %) 0.2 Nucleated RBCs # (0.000 - 0.012 10 3/uL) 0.020 H Recent Impressions: RADIOLOGY - XR CHEST 1 V 08/21 1513 Report Impression - Status: SIGNED Entered: 08/22/2023 1543 IMPRESSION: Cardiomegaly and mild vascular prominence. Impression By: [email or web address] - Elsa Montanez MD CAT SCAN - CTA CHEST FOR PE 08/21 1800 Report Impression - Status: SIGNED Entered: 08/22/2023 1831 IMPRESSION: 1. No evidence of pulmonary embolism. 2. New small bilateral pleural effusions with bibasilar discoid atelectasis. Cardiomegaly is again noted. Impression By: [id number] - Luke Valderrama MD Re-Evaluation MDM Re-Evaluation/Progress #1 Text/Dict Note Requested to evaluate patient as he is demanding to leave AGAINST MEDICAL ADVICE while my colleague is providing emergency care to the patient and was unable to leave the patient room. Relayed reassuring workup to this point including CTA without evidence of PE or dissection, serial negative and adynamic high sensitive troponins which have very high negative predictive value regarding 30- day MACE. Relayed the recommendation at this time to await recommendation from his business department chair which we have paged and are awaiting recommendations regarding necessity of any additional testing. We discussed the small bilateral pleural effusions and possibility of ADHF causing his symptoms. Patient verbalized understanding, is alert and oriented x 3 and not exhibiting any sign that would raise question of his capacity for decision-making. He is frustrated about the lack of definitive diagnosis in the emergency department, related that we had likely exhausted reasonable and appropriate testing from the ED setting but that there may be additional testing recommended by the business department chair in an inpatient setting, patient declined to wait for cardiology recommendations, ripped out his IV, threatened staff and continued to be argumentative and abusive to nursing team, allowed to leave the emergency department on his own recognizance Time of Re-Eval 185 ED Course Medication(s) Ordered Medication(s) Ordered: Cardiovascular Drugs Sig/Alfonzo Start time Last Medication Dose Route Stop Time Status Admin Nitroglycerin 0.4 MG X1ED STA 08/21 1526 DC SL 08/21 1527 Central Nervous System Agents Sig/Alfonzo Start time Last Medication Dose Route Stop Time Status Admin Aspirin 324 MG X1ED STA 08/21 1513 DC PO 08/21 1514 Diagnostic Agents Sig/Alfonzo Start time Last Medication Dose Route Stop Time Status Admin Iopamidol 0 .STK-MED ONE 08/21 1719 DC .ROUTE Electrolytic, Caloric, And Leandro Sig/Alfonzo Start time Last Medication Dose Route Stop Time Status Admin Furosemide 40 MG X1ED STA 08/21 1713 DC 08/21 IV 08/21 1714 1731 Other Sig/Alfonzo Start time Last Medication Dose Route Stop Time Status Admin Sodium Chloride 100 ML .STK-MED ONE 08/21 1719 DC IV Patient Discharge Departure Vital Signs/Condition Vital Signs First Documented: Result Date Time Pulse Ox 98 08/21 1509 B/P 154/105 08/21 1509 B/P Mean 121 08/21 1509 O2 Delivery Room air 08/21 1509 Temp 36.9 08/21 1509 Pulse 114 08/21 1509 Resp 22 08/21 1509 Last Documented: Result Date Time Pulse Ox 99 08/21 1730 B/P 116/65 08/21 1730 B/P Mean 85 08/21 1730 Pulse 102 08/21 1730 Resp 15 08/21 1730 O2 Delivery Room air 08/21 1509 Temp 36.9 08/21 1509 All vital signs available at the time of this entry have been reviewed. Clinical Impression Clinical Impression Primary Impression: Shortness of breath Disposition Decision Other )( Time 190 )( Date 08/22/23 Against Medical Advice Yes Discharge/Care Plan Patient Instructions ED Chest Pain, Uncertain Cause, ED Shortness of Breath ( Dyspnea) at 1904 at 2337 RPT #:[id number] END OF REPORT [facility] 2023-08-22 15:16:00 [facility] ([facility]) EMERGENCY PROVIDER REPORT REPORT#:[id number] REPORT STATUS: Signed DATE:08/22/23 TIME: 1515 PATIENT: KOTA MONTES UNIT #: [id number] ROOM: BED: AGE: 62 SEX: M PCP PHYS: Kurtis Lynch MD SERVICE AUTHOR: Xena Vela APRNNP * ALL edits or amendments must be made on the electronic/computer document * Xena Vela 08/22/23 1516: Provider in Triage - Adult Provider in Triage Initial Greet Date/Time 08/22/231509 Greet Note I have greeted and performed a focused rapid initial assessment of this patient. A comprehensive ED assessment and evaluation of the patient, analysis of all test results, and completion of the medical decision-making process will be conducted by additional ED providers. MSE Complete The medical screening examination is complete. The patient does not need immediate medical attention. There are no acute symptoms of sufficient severity that the patient could reasonably be expected to develop serious impairment or dysfunction of body functions or organs. Free Text PIT Notes Free Text PIT Notes 62 y.o. male presents to ED c/o chest pain since this morning. PMH-Provider in Triage Stated Complaint CHEST PAIN/SOB Allergies Coded Allergies: No Known Allergies (02/12/21) Home Medications Active Scripts Hydrocodone/Acetaminophen (HYDROcodone/APAP 10/325) 1 TAB PO Q6H PRN pain scale 7-10 (use 1st) 10 Days #40 TAB Prov: 08/01/23 Bumetanide (Bumex) 1 MG PO DAILY Bumetanide (Bumex) 1 MG PO DAILY #90 TAB Prov: 08/01/23 Potassium Chloride Er (Klor-Con M20) 20 MEQ PO DAILY Potassium Chloride Er (Klor-Con M20) 20 MEQ PO DAILY #90 TAB Prov: 08/01/23 Aspirin Ec 81 MG PO DAILY Aspirin Ec 81 MG PO DAILY #90 TAB Prov: 08/01/23 Pregabalin (Lyrica) 50 MG PO BID Pregabalin (Lyrica) 50 MG PO BID #90 CAP Prov: 08/01/23 Ticagrelor (Brilinta) 90 MG PO Q12HR Ticagrelor (Brilinta) 90 MG PO Q12HR #90 TAB Ref 3 Prov: 08/01/23 Escitalopram (Lexapro) 20 MG PO DAILY Escitalopram (Lexapro) 20 MG PO DAILY #90 TAB Prov: 08/01/23 Thiamine (Vitamin B-1) 100 MG PO DAILY Thiamine (Vitamin B-1) 100 MG PO DAILY #90 TAB Prov: 08/01/23 Atorvastatin (Lipitor) 80 MG PO BEDTIME Atorvastatin (Lipitor) 80 MG PO BEDTIME #90 TAB Prov: 08/01/23 Methocarbamol (Robaxin) 1,000 MG PO TID Methocarbamol (Robaxin) 1,000 MG PO TID #90 TAB Prov: 08/01/23 Trazodone (Desyrel) 100 MG PO BEDTIME Trazodone (Desyrel) 100 MG PO BEDTIME #90 TAB Ref 3 Prov: 08/01/23 Reported Medications Folic Acid 1 MG PO DAILY Metoprolol Tartrate (Lopressor) 25 MG PO BID Past Medical History: Reports: Coronary artery disease, Hypertension, Dyslipidemia. Additional Medical History History of NM Past Surgical History: Reports: CABG. Additional Surgical History Cardiac stents, right hip hardware Alcohol Use Alcohol use Drug Use Denies recreational drugs Smoking status: Smoking status for patients 13 years old or older: Unknown,if ever smoked at 1517 at 2019 [facility] #:[id number] END OF REPORT [facility] 2023-08-22 15:13:00 [id number] [address] PATIENT NAME: KOTA MONTES ADMIT DATE: 08/22/23 ACCOUNT NO: [id number] ROOM NO: AGE: 62 REPORT TYPE: eELECTROCARDIOGRAM SEX: M ADMITTING PHYSICIAN: ATTENDING PHYSICIAN: Order: [id number] Test Reason : Test Date/Time Stamp: SatAug 22 2023 15:13:42 Blood Pressure : / mmHG Vent. Rate : 116 BPM Atrial Rate : 116 BPM P-R Int : 148 ms QRS Dur : 150 ms QT Int : 368 ms P-R-T Axes : 077 133 -19 degrees QTc Int : 511 ms Sinus tachycardia Right axis deviation Nonspecific intraventricular block Abnormal ECG Confirmed by MARIAM PEREZ ([id number]) on 08/23/2023 10:05:10 AM Referred By: Confirmed by:MARIAM PEREZ at [address] [address] PATIENT NAME: KOTA MONTES [facility] 2023-08-03 09:38:00 [id number] [place] [address] PATIENT NAME: KOTA MONTES ADMIT DATE: 07/26/23 ACCOUNT NO: [id number] ROOM NO: P.0409 AGE: 62 REPORT TYPE: eECHOCARDIOGRAM REPORT SEX: M ADMITTING PHYSICIAN: Keenan Kumari MD ATTENDING PHYSICIAN: Keenan Kumari MD *[facility]* [address] [place] [address] Transthoracic Echocardiogram Patient: Kota Montes Study Date: 07/31/2023 BP: 126 / 71 URN: [id number] Location: : 1960 Age: 62 Gender: M Height: 68 in / 172.7 cm Weight: 152 lb / 69 kg BMI/BSA: 23.1 kg/m 2 / 1.82 m 2 *Ordering Physician: Radha Brown *Interpreting Physician: * Austin Segal MD Indications: LV Function. Study data: Transthoracic echocardiogram. Procedure: A transthoracic echocardiogram was performed. Images were obtained using a Taggstrid E Portable cardiac ultrasound machine. Complete 2D, complete spectral Doppler, and color Doppler. Location: Bedside. Patient status: Inpatient. Patient room number: 313. Study status: Routine. Heart rate: 89 bpm. Findings Left ventricle: The cavity size is normal. Wall thickness is mildly increased. Systolic function is severely reduced. The estimated ejection fraction is 25-29%. There is severe diffuse hypokinesis. Grade I diastolic dysfunction. Right ventricle: The cavity size is normal. Systolic function is moderately PATIENT NAME: KOTA MONTES reduced. Left atrium: The atrium is mildly dilated. Right atrium: The atrium is mildly dilated. Aorta: Aortic root: The root is normal-sized. Aortic valve: The valve is trileaflet. The leaflets are mildly thickened and mildly calcified. There is no evidence of stenosis. There is mild regurgitation. Mitral valve: The leaflets are mildly thickened. There is mild to moderate regurgitation. Tricuspid valve: The leaflets are normal thickness. There is mild regurgitation. Pulmonic valve: The leaflets are normal thickness. There is no regurgitation. Pericardium: There is no pericardial effusion. Systemic veins: Inferior vena cava: The IVC is not visualized. Measurements Left ventricle Value Ref 07/27/2023 JUSTIN, LAX 4.5 cm 4.2 - 5.8 4.8 ESD, LAX 4.4 cm 2.5 - 4.0 3.9 FS, LAX 3 % 16 JUSTIN major ax, A2C 8.8 cm --------- 7.8 ESD major ax, A2C 7.4 cm --------- 7.3 IVS, ED 1.4 cm 0.6 - 1.0 1.1 ESD 4.4 cm 2.5 - 4.0 3.9 FS 3 % 16 PW, ED 1.3 cm 0.6 - 1.0 1.1 IVS/PW, ED 1.06 --------- 1.02 EF 8 % 52 - 72 33 Mass 272 g 96 - 200 Mass/bsa 149 g/m 2 50 - 102 Mass/ht 2.7 62.24 g/m 2.7 --------- EF, MM on 2D Teich. 8 % >=55 33 E', lat candice, TDI 10.5 cm/sec >=10.0 6.6 E/e', lat candice, TDI 6 <=13 11 E', med candice, TDI 4.2 cm/sec >=7.0 2.9 E/e', med candice, TDI 15 --------- 25 E', avg, TDI 7.4 cm/sec --------- 4.8 E/e', avg, TDI 8 <=14 16 LVOT Value Ref 07/27/2023 Diam, S 1.93 cm --------- 2.02 Area 2.9 cm 2 --------- 3.2 Peak latanya, S 0.9 m/sec --------- 0.9 Mean latanya, S 0.64 m/sec --------- 0.68 VTI, S 14.9 cm --------- 14.6 Peak grad, S 3 mm Hg --------- 3 Mean grad, S 2 mm Hg --------- 2 SV 43 ml --------- 47 SV/bsa 24 ml/m 2 --------- 25 PATIENT NAME: KOTA MONTES Right ventricle Value Ref 07/27/2023 JUSTIN, LAX 3.7 cm --------- JUSTIN 3.7 cm --------- TAPSE, 2D 0.7 cm >=1.7 TAPSE, MM 0.7 cm >=1.7 S' lateral 7.1 cm/sec >=9.5 Left atrium Value Ref 07/27/2023 LA ID 3.8 cm --------- 2.9 AP dim, ES 3.8 cm 3.0 - 4.0 2.9 AP dim ES, LAX 3.8 cm 3.0 - 4.0 2.9 SI dim ES, LAX 3.8 cm --------- 2.9 Vol/bsa, S 30 ml/m 2 16 - 34 30 Vol, ES, 2-p 60 ml --------- 61 Vol/bsa, ES, 2-p 33 ml/m 2 16 - 34 32 LA/Ao root ratio 1.15 --------- 0.95 AP dim, ES MM 3.8 cm 3.0 - 4.0 2.9 LA/Ao root ratio, MM 1 --------- 1 Right atrium Value Ref 07/27/2023 Area, ES 14 cm 2 22 Area, ES, A4C 14 cm 2 10 22 Aortic valve Value Ref 07/27/2023 Peak v, S 1.2 m/sec --------- 1 Mean v, S 0.86 m/sec --------- 0.78 VTI, S 21.4 cm --------- 13.4 Mean grad, S 3 mm Hg --------- 3 Peak grad, S 5.8 mm Hg --------- 4.4 LVOT/AV, VTI ratio 0.69 --------- 1.1 SUKHJINDER, VTI 2.02 cm 2 --------- 3.51 LVOT/AV, Vpeak ratio 0.74 --------- 0.86 SUKHJINDER, Vmax 2.16 cm 2 --------- 2.76 AR peak v 2.42 m/sec --------- 2.92 AR decel 83.51 cm/s 2 --------- 300.22 AR decel time 2899 ms --------- 973 AR PHT 841 ms --------- 282 AR peak grad 23 mm Hg --------- 34 Mitral valve Value Ref 07/27/2023 Mean v, D 0.5 m/sec --------- 0.87 Peak E 0.07 m/sec --------- 0.05 Peak A 0.84 m/sec --------- 0.91 VTI leaflet coapt 16.9 cm --------- 16.9 MiV/LVOT VTI 1.1 --------- 1.2 Decel time 135 ms --------- 237 PHT 36 ms --------- 45 Mean grad, D 1 mm Hg --------- 3 Peak grad, D 2.5 mm Hg --------- 5.1 Peak E/A ratio 0.73 --------- 0.82 MVA, PHT 6.0 cm 2 --------- 4.9 MR peak v 2.6 m/sec --------- PATIENT NAME: KOTA MONTES Tricuspid valve Value Ref 07/27/2023 TR peak v 1.9 m/sec <=2.8 Peak RV-RA grad, S 14 mm Hg --------- Aortic root Value Ref 07/27/2023 Root diam 3.3 cm 2.5 - 4.0 3.1 Root diam, ED MM 3.8 cm --------- 2.9 Ascending aorta Value Ref 07/27/2023 AAo AP diam, S 3.9 cm --------- 3.7 Conclusions Summary: 1. Left ventricle: The cavity size is normal. Wall thickness is mildly increased. Systolic function is severely reduced. The estimated ejection fraction is 25-29%. There is severe diffuse hypokinesis. Grade I diastolic dysfunction. 2. Right ventricle: Systolic function is moderately reduced. 3. Left atrium: The atrium is mildly dilated. 4. Right atrium: The atrium is mildly dilated. 5. Mitral valve: There is mild to moderate regurgitation. Electronically signed by Austin Segal MD 08/03/2023 09:38 at 0938 PATIENT NAME: KOTA MONTES [facility] 2023-08-02 00:01:00 [id number] [place] [address] PATIENT NAME: KOTA MONTES ADMIT DATE: 07/26/23 ACCOUNT NO: [id number] ROOM NO: P.0409 AGE: 62 REPORT TYPE: 360 - QUERY RESPONSE DOCUMENT SEX: M ADMITTING PHYSICIAN:Keenan Kumari MD ATTENDING PHYSICIAN:Keenan Kumari MD Provider Query QUERY TEXT: Condition General 360MD Query related questions should be directed to: [facility] Coding query helpline Based on your medical judgement and above mentioned clinical indicators, kindly clarify the diagnosis of sepsis as, Sepsis was a confirmed diagnosis, Sepsis was not a confirmed diagnosis, other more appropriate diagnosis, clinically unable to determine The patient's Clinical Indicators include: Pre-procedure diagnosis: septic shock, respiratory failure-OP Intensive Care Progress Note 07/27/2023 (1) Plan: -Hold GDMT given hypotension, resume as able WBC (4.8 - 10.8 x10 3/uL) 11.5 H-LAB Lactic acidosis, resolved-LAB POC LACTIC ACID 2.29 H-LAB Temp 37.2 07/25 1324 Pulse 92 07/25 132 Resp 18 07/25 1324 Doxycycline 100 mg Inj DOXYCYCLINE MONOHYDRATE 100 MG CAPSULE-MAR Monitored heart rhythm: Normal sinus rhythm Sinus tachycardia Intensive Care Progress Note 07/27/2023 (1) Plan: -Hold GDMT given hypotension, resume as ableSinus tachycardia Options provided: -- Respond - Create new note now -- Dismiss - Not applicable / Not valid -- Dismiss - Clinically unable to determine / Unknown -- Assign to another provider QUERY RESPONSE: cardiogenic shock, not septic shock Query created by: Jose Roberto Johnson on 08/01/2023 12:14 AM at 0001 PATIENT NAME: KOTA MONTES [facility] 2023-08-01 12:19:00 [facility] ([facility]) Hospitalist Brief D/C Summ. REPORT #: [id number] REPORT STATUS: Signed DATE: 08/01/23 TIME: 1219 PATIENT: KOTA MONTES UNIT #: [id number] ROOM #: P.[facility] BED: A : 62 AGE: 62 SEX: M ATTEND: Keenan Kumari MD ADM AUTHOR: Keenan Kumari MD ATTENTION *EDITS and/or ADDENDA must be made in Patient Keeper for this note. * * Edits and ammendments created in [employer] are not visible * * in Patient Keeper or the legal medical record ([facility]). * -- ADMISSION SYNOPSIS -- ADMISSION DATE: 07/26/23 ADMITTING DIAGNOSES: - Acute on chronic systolic heart failure - Acute pulmonary edema - Acute respiratory failure with hypoxia - Acute systolic (congestive) heart failure - Alcohol abuse - Alcohol abuse with unspecified alcohol-induced disorder - Atherosclerotic heart disease of kar[place] coronary artery with unstable angina pectoris - Atherosclerotic heart disease of kar[place] coronary artery without angina pectoris - Cardiogenic shock - Cervicalgia - Chest pain, unspecified - Chest pain, unspecified type - Chronic disease anemia - Coronary artery disease - Dyspnea - Heart failure, unspecified - History of CAD (coronary artery disease) - Hypertension, essential - Hypertensive heart disease without heart failure - Non-ST elevation (NSTEMI) myocardial infarction - Other specified personal risk factors, not elsewhere classified - Presence of aortocoronary bypass graft - Presence of heart assist device - Rheumatic disorders of both mitral and aortic valves - Rheumatic disorders of both mitral and tricuspid valves - Shortness of breath - Stenosis of coronary artery stent, initial encounter - This code is used to indicate to the billing staff that services have been rendered and the charge needs to be coded. - Unstable angina DISCHARGE DATE: 08/01/23 DISCHARGE DIAGNOSES: - Acute on chronic systolic heart failure - Acute pulmonary edema - Acute respiratory failure with hypoxia - Acute systolic (congestive) heart failure - Alcohol abuse - Alcohol abuse with unspecified alcohol-induced disorder - Atherosclerotic heart disease of kar[place] coronary artery with unstable angina pectoris - Atherosclerotic heart disease of kar[place] coronary artery without angina pectoris - Cardiogenic shock - Cervicalgia - Chest pain, unspecified - Chest pain, unspecified type - Chronic disease anemia - Coronary artery disease - Dyspnea - Heart failure, unspecified - History of CAD (coronary artery disease) - Hypertension, essential - Hypertensive heart disease without heart failure - Non-ST elevation (NSTEMI) myocardial infarction - Other specified personal risk factors, not elsewhere classified - Presence of aortocoronary bypass graft - Presence of heart assist device - Rheumatic disorders of both mitral and aortic valves - Rheumatic disorders of both mitral and tricuspid valves - Shortness of breath - Stenosis of coronary artery stent, initial encounter - This code is used to indicate to the billing staff that services have been rendered and the charge needs to be coded. - Unstable angina HOSPITAL COURSE TO DATE: 62 y/o M with HTN, HLD, CAD and NM s/p PCI 2005, 06/2022, 12/24/2022, S/P CABG x 2 BOGGS to LAD and SVG to OM (Dr. Pike) in 06/13/2023, Hx of alcohol abuse, and nicotine use who presented to ER by EMS c/o SOB and chest pain, with EKG concerning for acute NM. I evaluated the patient in the ER he reports OSB started yesterday, progressive and c/o chest pain since 12:30 pm today, continuous, mov=derate to severe, no radiation, heaviness, decreased with pain medication, at rest, no specific exacerbating factors, and associated with SOB. No palpitations, lightheadedness, no LOC, and no sweating. The patient was brought to ER, vitals were normal, O2 in mid 90s on RA. The patient refuses to take nitro saying it does not help him, EMS gave him ASA 325 and fentanyl 100 mcg IV. In ER, STEMI was activated. The patent was evaluated emergently in ER, no STEMI criteria per ECG. While in the ER, the patient developed acute respiratory distress, O2 desaturation, requiringO2 via NRB mask . Stat echo showed LV EF <20%. Echo 06/2023: Estimated EF 30-34% 07/25: Trop 51.2 BNP: 1640 CXR: CHF with mild pulmonary edema EKG: L BB, No criteria st elevation Echo on 07/26: The estimated ejection fraction is 30-34%. There is moderate diffuse hypokinesis. Grade I diastolic dysfunction. Depth of impella inflow cannula around 2.7 cm from the aortic valve. 07/28: Impella removal, and extubation Dx: Cardiogenic shock, resolving Acue decompensated HF (HFrEF), resolving Acute pulmonary edema, resolving Acute hypoxemic respiratory failure, on O2 via NC, s/p extubation Hx of CAD, s/o CABG x2 06/[address] Pike as above Lactic acidosis, resolved HTN HLD Plan: ICU level of care S/P LHC on 07/25: paten grafts (BOGGS to LAD and sVG to OM), mid and distal RCA intent stenosis s/p PCIs Hemodynamics and tele monitoring, all satisfactory. DAPT with ASA and Brilinta, high intensity statin (on atorvastatin 80 mg) Plan to repeat echo tomorrow Diuresis as indicated, on bumex gtt Monitor, renal function, and replace lyes. PT -- OBJECTIVE -- VITALS (07/30 12:19 - 07/31 12:19): Temperature C: 37.1 (36.5 - 37.2) Temperature source: Oral Pulse Rate 102 (91 - 113) Respiratory rate: 16 (12 - 25) Blood pressure: 121/71 (89/50 - 131/81) Blood pressure source: Monitor I/Os (07/30 07:00 - 07/31 07:00): Net -2,550.50 Intake 274.50 Output 2,825 -- DISCHARGE MEDICATIONS -- ALLERGIES: No Known Allergies (UNKNOWN - Allergy) -- DISCHARGE INSTRUCTIONS -- ADDTIONAL DISCHARGE INSTRUCTIONS: Emergency Instructions: The patient was instructed to present to the nearest Emergency Department or call 911 should their symptoms return or worsen.; -- DATA -- LABS BASIC METABOLIC PANEL (08/01/23 03:42) SODIUM 136 POTASSIUM 3.8 CHLORIDE 96L L CARBON DIOXIDE 32H H GLUCOSE 113H H BLOOD UREA NITROGEN 15 GLOMERULAR FILTRATION RATE >=60 max estimate CREATININE 1.00 CALCIUM 9.3 MAG (08/01/23 03:42) MAGNESIUM 1.9 Signed in PatientKeeper by Keenan Kumari MD on 08/01/23 at 12:19 at 1219 ATTENTION *EDITS and/or ADDENDA must be made in Patient Keeper for this note. * * Edits and ammendments created in [facility] are not visible * * in Patient Keeper or the legal medical record ([facility]). * RPT #: [id number] END OF REPORT [facility] 2023-08-01 12:19:00 [facility] ([facility]) Med Order Sheet REPORT #: [id number] REPORT STATUS: Signed DATE: 08/01/23 TIME: 1219 PATIENT: KOTA MONTES UNIT #: [id number] ROOM #: P0409 BED: A : 61 AGE: 62 SEX: M ATTEND: Keenan Kumari MD [facility] AUTHOR: Keenan Kumari MD ATTENTION *EDITS and/or ADDENDA must be made in Patient Keeper for this note. * * Edits and ammendments created in [facility] are not visible * * in Patient Keeper or the legal medical record ([facility]). * Discharge Medication Reconciliation DISCHARGE MEDICATION LIST Aspirin EC Tab (Ecotrin Tab) Dose: 81 MG PO DAILY, Disp: 90 tablet, Refills: 0 Atorvastatin Tab (Lipitor Tab) Dose: 80 MG PO BEDTIME, Disp: 90 tablet, Refills: 0 Folic Acid Tab (Folvite Tab) Dose: 1 MG PO DAILY HYDROcodone/APAP 10/325 Tab (Corinne 10/325 Tab) Dose: 1 TAB PO Q6H X 10 days PRN pain scale 7-10 (use 1st) , Disp: 40 tablet, Refills: 0 Lexapro tab (escitalopram oxalate) Dose: 20 MG PO DAILY, Disp: 90 tablet, Refills: 0 Methocarbamol Tab (Robaxin Tab) Dose: 1000 MG PO TID, Disp: 90 tablet, Refills: 0 Metoprolol Tartrate Tab (Lopressor Tab) Dose: 25 MG PO BID Potassium Chlor Tab.ER (K Dur Tab) Dose: 20 MEQ PO DAILY, Disp: 90 tablet, Refills: 0 Pregabalin Cap (Lyrica Cap) Dose: 50 MG PO BID, Disp: 90 capsule, Refills: 0 Thiamine Tab (Vitamin B-1 Tab) Dose: 100 MG PO DAILY, Disp: 90 tablet, Refills: 0 traZODone Tab (Desyrel Tab) Dose: 100 MG PO BEDTIME, Disp: 90 tablet, Refills: 3 Ticagrelor Tab (Brilinta Tab) Dose: 90MG PO Q12HR, Disp: 90 tablet, Refills: 3 Hosp: Bumetanide Tab (Bumex Tab) Dose: 1 MG PO DAILY, Disp: 90 tablet, Refills: 0 STOPPED HOME MEDICATIONS Dc'd: Clopidogrel Tab (Plavix Tab) 75 MG PO DAILYDc'd: Furosemide Tab (Lasix Tab) 20 MG PO QAM STOPPED HOSPITAL MEDICATIONS Dc'd: Bumetanide Inj (Bumex Inj) 1MG IV [id number]'d: Acetaminophen Tab (Tylenol Tab) 650MG PO Q6H PRN mild pain or temp>38.5cDc'd: ALPRAZolam Tab (Xanax Tab) 1MG PO TID PRN panic attack onlyDc'd: Bisacodyl Supp (Dulcolax Supp) 10MG Rectal DAILY PRN constipationDc'd: clonazePAM Tab (KlonoPIN Tab) 1MG PO BEDTIMEDc'd: Dextrose 50% 50 ml Syringe (D50W 50 ml Syringe) 25ML IV ASDIR PRN hypoglycemiaDc'd: Docusate Sodium Oral Liquid (Colace Oral Liquid) 200MG Feed-Tube DAILYDc'd: Enoxaparin 40 mg/0.4 ml Inj (Lovenox 40 mg/0.4 ml Inj) 40MG SubQ DAILYDc'd: Glucagon Inj (Glucagon Inj) 1MG IM ASDIR PRN hypoglycemia if no iv/enteralDc'd: Lidocaine Patch 4% (Lidoderm Patch 4%) 1PATCH Transderm DAILYDc'd: Nicotine Patch 21mg/24hr (Nicoderm CQ Patch 21mg/24hr) 21MG Transderm DAILYDc'd: Ondansetron Inj (Zofran Inj) 4MG IV Q4H PRN nausea and vomitingDc'd: Polyethylene Glycol Powder (Miralax Powder) 1PKT PO DAILY at 1219 ATTENTION *EDITS and/or ADDENDA must be made in Patient Keeper for this note. * * Edits and ammendments created in [facility] are not visible * * in Patient Keeper or the legal medical record ([facility]). * RPT #: [id number] END OF REPORT [facility] 2023-07-31 14:55:00 [facility] ([facility]) Intensive Care Progress Note REPORT #: [id number] REPORT STATUS: Signed DATE: 07/31/23 TIME: 145 PATIENT: KOTA MONTES UNIT #: [id number] ROOM #: P0409 BED: A : 62 AGE: 62 SEX: M ATTEND: Keenan Kumari MD ADM AUTHOR: Annabelle Zazueta MD ATTENTION *EDITS and/or ADDENDA must be made in Patient Keeper for this note. * * Edits and ammendments created in [employer] are not visible * * in Patient Keeper or the legal medical record (HPF). * -- ASSESSMENT AND PLAN -- HOSPITAL COURSE TO DATE: Mr. Montes is a 62-year-old male with PMHx notable for CAD s/p 2V CAB (06/25) and PCI (, 06/24, 12/24), ischemic cardiomyopathy (EF 30-34%), HTN, HLD, h/o ETOH abuse, tobacco abuse, anxiety/depression, and medical non-compliance initially presenting to [facility] with a chief complaint of chest pain and shortness of breath on 07/25 and subsequently admitted to CVICU on the same day for management of acute cardiogenic shock requiring Impella support. 07/25: s/p Impella CP placement and LHC showing patent grafts, LVEDP 38, and PCI x1 to RCA; intubated 07/26: Repeat TTE on Impella support with improved EF (<20% -> 30-34%) 07/28: Impella explanted and extubated GENERAL ASSESSMENT: I have seen and examined him, reviewed his EMR information and data and discussed his plan of care with the other clinical and ancillary services. Assessment and Plan Pain/Sedation ICU Analgesia - On Acetaminophen, Corinne, prn Morphine - On Robaxin, Lidocaine patch, home Lyrica - Serially reassessing Neuro/Psych #Agitation/Delirium #Anxiety/Depression/Panic attacks #H/o ETOH Abuse and Polysubstance Abuse - Awake and communicative - On Lexapro, Clonazepam - Adding prn Xanax for panic attacks - On Thiamine, Folate - Delerium precautions Respiratory #Acute Hypoxic Respiratory Failure #Acute Pulmonary Edema # Tobacco Abuse - Hypoxemic ABGs on RA - pCXR with Chronic changes and Lt basal atelectasis - On IS, pulm hygiene, breathing Rx, diuresis - Serially reassessing with exam, imaging and prn ABGs Cardiovascular #Cardiogenic Shock # S/p Impella CP Placement and Explantation # Biventricular Heart Failure # Possible Stress Cardiomyopathy # Multi-Vessel CAD # H/o CABG X 2 # H/o PCI/Stent RCA - In SR with adequate BP - TTE 07/25- LVEF < 20%, G3DD. - Borderline perfusion indices - On ASA, Brilinta, Statin, BB - Serially reassessing with exam, perfusion indices - D/w Cardiology team who are following Gastrointestinal Nutrition - On Cardiac diet - SUP, bowel regimen Renal #Volume Overload - Adequate UO, lytes on Bumex infusion - Transitioning to intermittent dosing - Serially reassessing UO, lytes, fluid status HEME #Acute Blood Loss Anemia # Critical Illness anemia # Hemolytic anemia - H/h adequate and equilibrating - Serially reassessing Endocrine -Maintain goal BS 140-180 -Hypoglycemia protocol Infectious Disease -No acute ID focus MSK -PT/OT consulted PPX - Lovenox Medications reviewed with the Clinical Pharmacist GO - Code: FULL per patient (, NOK/surrogate medical decision maker) - Written advance care plan: None per family OK to transfer to [facility]. Transition of care d/w Dr. Kumari. -- OBJECTIVE -- VITALS (07/29 14:55 - 07/30 14:55): Temperature F: 98.3 (98.0 - 98.3) Temperature source: Oral Pulse Rate 92 (82 - 107) Respiratory rate: 14 (9 - 29) Blood pressure: 129/75 (108/55 - 195/195) Blood pressure source: Monitor I/Os (07/29 07:00 - 07/30 07:00): Net -1,414.00 Intake 2,111.00 Output 3,525 -- DATA -- MEDICATIONS MAGNESIUM SULFATE 2 GM IV ASDIR (PRN) ESCITALOPRAM 20 MG PO DAILY ACETAMINOPHEN 650 MG PO Q6H PRN FOLIC ACID 1 MG PO DAILY HYDROcodone BITARTRATE/APAP 1 TAB PO Q6H PRN SODIUM CHLORIDE 0.9% 1000 ML IV .Q24H LIDOCAINE 1 PATCH TRANSDERM DAILY MAGNESIUM SULFATE 4 G IV ASDIR (PRN) polyethylene glycoL 3350 1 PKT PO DAILY ASPIRIN 81 MG PO DAILY HYDROcodone BITARTRATE/APAP 1 TAB PO Q6H PRN ENOXAPARIN SODIUM 40 MG SUBQ DAILY MUPIROCIN 1 APPLIC NASAL BID TICAGRELOR 90 MG PO Q12HR SOD BIPHOS/POT PHOSPHATE 2 PKT PO ASDIR PRN PREGABALIN 50 MG PO BID POTASSIUM CHLORIDE 20 MEQ PO ASDIR PRN DOCUSATE SODIUM 200 MG FEED-TUBE DAILY METOPROLOL TARTRATE 12.5 MG PO BID ATORVASTATIN CALCIUM 80 MG PO BEDTIME NICOTINE 21 MG TRANSDERM DAILY THIAMINE HCL 100 MG PO DAILY POTASSIUM CHLORIDE IN WATER 10 MEQ IV ASDIR (PRN) ONDANSETRON HCL/PF 4 MG IV Q4H PRN SODIUM PHOSPHATE with/in SODIUM CHLORIDE 0.9% 20 MM IV ASDIR (PRN) morphine SULFATE 4 MG IV Q2H PRN GLUCAGON 1 MG IM ASDIR PRN SODIUM CHLORIDE 100 mL BAG with/in BUMETANIDE 60 ML IV .Q10H methocarbamoL 750 MG PO TID CALCIUM GLUC IN NACL, ISO-OSM 2 GM IV ASDIR (PRN) SODIUM PHOSPHATE with/in SODIUM CHLORIDE 0.9% 30 MM IV ASDIR (PRN) bisacodyL 10 MG RECTAL DAILY PRN clonazePAM 1 MG PO BEDTIME DEXTROSE 50%-WATER 25 ML IV ASDIR PRN ALPRAZolam 1 MG PO TID PRN hydrOXYzine HCL 25 MG PO Q6H PRN LABS PTT (07/31/23 03:56) THROMBOPLASTIN TIME PARTIAL 31.0 COMPREHENSIVE METABOLIC PANEL (07/31/23 03:56) SODIUM 135 L POTASSIUM 3.2 L CHLORIDE 94 L CARBON DIOXIDE 33 H GLUCOSE 104 BLOOD UREA NITROGEN 12 GLOMERULAR FILTRATION RATE >=60 max estimate CREATININE 1.00 TOTAL PROTEIN 6.4 ALBUMIN 4.4 CALCIUM 8.8 BILIRUBIN TOTAL 0.6 SGOT/AST 36 H SGPT/ALT 22 ALKALINE PHOSPHATASE 83.0 MAG (07/31/23 03:56) MAGNESIUM 1.8 PHOS (07/31/23 03:56) PHOSPHOROUS 4.7 FIB (07/31/23 03:56) FIBRINOGEN 727 H PROTHROMBIN TIME (07/31/23 03:56) PROTHROMBIN TIME PATIENT 13.2 H INTERNATIONAL NORMAL RATIO 1.18 H CBC W/AUTO DIFF (07/31/23 03:56) WHITE BLOOD CELL 6.9 RED BLOOD CELL 3.23 L HEMOGLOBIN 10.1L L HEMATOCRIT 30.9L L MEAN CELL VOLUME 95.7 H MEAN CELL HGB 31.3 H MEAN CELL HGB CONCENTRATION 32.7 L RED CELL DISTRIBUTION WIDTH 13.2 PLATELET COUNT 207 MEAN PLATELET VOLUME 9.9 NEUTROPHIL % 64.2 LYMPHOCYTE % 18.1 L MONOCYTE % 13.5 H EOSINOPHIL % 3.0 BASOPHIL % 0.6 NEUTROPHIL # 4.43 LYMPHOCYTE # 1.25 MONOCYTE # 0.93 H EOSINOPHIL # 0.21 BASOPHIL # 0.04 -- ATTESTATION -- CARE ACTIVITIES / CARE COORDINATION: - I have reviewed the history and repeated the carias elements - I have seen and examined this patient - I have reviewed the progress in the clinical course since the last examination - I have discussed the patient's condition with other members of the care team ADDITIONAL DETAIL: [id number] Signed in PatientKeeper by Annabelle Zazueta MD on 07/31/23 at 18:16 at 1816 ATTENTION *EDITS and/or ADDENDA must be made in Patient Keeper for this note. * * Edits and ammendments created in [facility] are not visible * * in Patient Keeper or the legal medical record (HPF). * RPT #: [id number] END OF REPORT [facility] 2023-07-31 14:31:00 [facility] ([facility]) Cardiology Progress Notes REPORT #: [id number] REPORT STATUS: Signed DATE: 07/31/23 TIME: 1431 PATIENT: KOTA MONTES UNIT #: [id number] ROOM #: P.[id number] BED: A : 62 AGE: 62 SEX: M ATTEND: Keenan Kumari MD ADM AUTHOR: Rochelle Powell MD CF1 ATTENTION *EDITS and/or ADDENDA must be made in Patient Keeper for this note. * * Edits and ammendments created in [employer] are not visible * * in Patient Keeper or the legal medical record (HPF). * -- CO-SIGNATURE -- COMMENTS: I have seen and examined the patient with the business department chair fellow Dr. Rochelle Powell MD on 07/31/2023. I have reviewed all the clinical information, lab investigations, and imaging data. I agree with the following examination, findings, assessment and plan. I was present and supervised. Signed in PatientKeeper by KURTIS LYNCH MD on 08/06/23 at 14:29 -- ASSESSMENT AND PLAN -- GENERAL ASSESSMENT: 62 y/o M with HTN, HLD, CAD and NM s/p PCI 2005, 06/2022, 12/24/2022, S/P CABG x 2 BOGGS to LAD and SVG to OM (Dr. Pike) in 06/13/2023, Hx of alcohol abuse, and nicotine use who presented to ER by EMS c/o SOB and chest pain, with EKG concerning for acute NM. I evaluated the patient in the ER he reports OSB started yesterday, progressive and c/o chest pain since 12:30 pm today, continuous, mov=derate to severe, no radiation, heaviness, decreased with pain medication, at rest, no specific exacerbating factors, and associated with SOB. No palpitations, lightheadedness, no LOC, and no sweating. The patient was brought to ER, vitals were normal, O2 in mid 90s on RA. The patient refuses to take nitro saying it does not help him, EMS gave him ASA 325 and fentanyl 100 mcg IV. In ER, STEMI was activated. The patent was evaluated emergently in ER, no STEMI criteria per ECG. While in the ER, the patient developed acute respiratory distress, O2 desaturation, requiringO2 via NRB mask . Stat echo showed LV EF <20%. Echo 06/2023: Estimated EF 30-34% 07/25: Trop 51.2 BNP: 1640 CXR: CHF with mild pulmonary edema EKG: L BB, No criteria st elevation Echo on 07/26: The estimated ejection fraction is 30-34%. There is moderate diffuse hypokinesis. Grade I diastolic dysfunction. Depth of impella inflow cannula around 2.7 cm from the aortic valve. 07/28: Impella removal, and extubation Dx: Cardiogenic shock, resolving Acue decompensated HF (HFrEF), resolving Acute pulmonary edema, resolving Acute hypoxemic respiratory failure, on O2 via NC, s/p extubation Hx of CAD, s/o CABG x2 06/[address] Pike as above Lactic acidosis, resolved HTN HLD Plan: ICU level of care S/P C on 07/25: paten grafts (BOGGS to LAD and sVG to OM), mid and distal RCA intent stenosis s/p PCIs Hemodynamics and tele monitoring, all satisfactory. DAPT with ASA and Brilinta, high intensity statin (on atorvastatin 80 mg) Plan to repeat echo tomorrow Diuresis as indicated, on bumex gtt Monitor, renal function, and replace lyes. PT -- SUBJECTIVE -- HPI: NO new c/o + anxiety -- OBJECTIVE -- VITALS (07/29 14:31 - 07/30 14:31): Temperature F: 98.1 (98.0 - 98.3) Temperature source: Oral Pulse Rate 92 (82 - 107) Respiratory rate: 14 (9 - 29) Blood pressure: 129/75 (99/45 - 195/195) Blood pressure source: Monitor I/Os (07/29 07:00 - 07/30 07:00): Net -1,414.00 Intake 2,111.00 Output 3,525 -EXAM- GENERAL: NAD HEAD: Normocephalic, atraumatic. EYES: PERRL, conjunctiva and sclera clear, without nystagmus, lids normal. EARS: Grossly normal hearing. NOSE: No deformity, no discharge, no inflammation, no lesions. MOUTH: Oropharynx without deformities or lesions, normal mucosa. NECK: Supple. No JVD. Trachea midline. CHEST: Surgical scar noted LUNGS: Clear bilaterally with normal respiratory effort. no wheezes HEART: Regular rate and rhythm, normal S1, S2, no murmurs, no rubs, no gallops, no clicks. ABDOMEN: Soft, non-tender, no organomegaly, no masses noted. MUSCULOSKELETAL: No deformity, joint ROM grossly normal. EXTREMITIES: No cyanosis, no edema. Groins are ok NEUROLOGICAL: Aox3, no focal deficits PULSES: Pulses normal in all extremities. SKIN: Intact without significant lesions, or rashes. -- DATA -- MEDICATIONS MAGNESIUM SULFATE 2 GM IV ASDIR (PRN) ESCITALOPRAM 20 MG PO DAILY ACETAMINOPHEN 650 MG PO Q6H PRN FOLIC ACID 1 MG PO DAILY HYDROcodone BITARTRATE/APAP 1 TAB PO Q6H PRN SODIUM CHLORIDE 0.9% 1000 ML IV .Q24H LIDOCAINE 1 PATCH TRANSDERM DAILY MAGNESIUM SULFATE 4 G IV ASDIR (PRN) polyethylene glycoL 3350 1 PKT PO DAILY ASPIRIN 81 MG PO DAILY HYDROcodone BITARTRATE/APAP 1 TAB PO Q6H PRN ENOXAPARIN SODIUM 40 MG SUBQ DAILY MUPIROCIN 1 APPLIC NASAL BID TICAGRELOR 90 MG PO Q12HR SOD BIPHOS/POT PHOSPHATE 2 PKT PO ASDIR PRN PREGABALIN 50 MG PO BID POTASSIUM CHLORIDE 20 MEQ PO ASDIR PRN DOCUSATE SODIUM 200 MG FEED-TUBE DAILY METOPROLOL TARTRATE 12.5 MG PO BID ATORVASTATIN CALCIUM 80 MG PO BEDTIME NICOTINE 21 MG TRANSDERM DAILY THIAMINE HCL 100 MG PO DAILY POTASSIUM CHLORIDE IN WATER 10 MEQ IV ASDIR (PRN) ONDANSETRON HCL/PF 4 MG IV Q4H PRN SODIUM PHOSPHATE with/in SODIUM CHLORIDE 0.9% 20 MM IV ASDIR (PRN) morphine SULFATE 4 MG IV Q2H PRN GLUCAGON 1 MG IM ASDIR PRN SODIUM CHLORIDE 100 mL BAG with/in BUMETANIDE 60 ML IV .Q10H methocarbamoL 750 MG PO TID CALCIUM GLUC IN NACL, ISO-OSM 2 GM IV ASDIR (PRN) SODIUM PHOSPHATE with/in SODIUM CHLORIDE 0.9% 30 MM IV ASDIR (PRN) bisacodyL 10 MG RECTAL DAILY PRN clonazePAM 1 MG PO BEDTIME DEXTROSE 50%-WATER 25 ML IV ASDIR PRN ALPRAZolam 1 MG PO TID PRN hydrOXYzine HCL 25 MG PO Q6H PRN LABS PTT (07/31/23 03:56) THROMBOPLASTIN TIME PARTIAL 31.0 COMPREHENSIVE METABOLIC PANEL (07/31/23 03:56) SODIUM 135 L POTASSIUM 3.2 L CHLORIDE 94 L CARBON DIOXIDE 33 H GLUCOSE 104 BLOOD UREA NITROGEN 12 GLOMERULAR FILTRATION RATE >=60 max estimate CREATININE 1.00 TOTAL PROTEIN 6.4 ALBUMIN 4.4 CALCIUM 8.8 BILIRUBIN TOTAL 0.6 SGOT/AST 36 H SGPT/ALT 22 ALKALINE PHOSPHATASE 83.0 MAG (07/31/23 03:56) MAGNESIUM 1.8 PHOS (07/31/23 03:56) PHOSPHOROUS 4.7 FIB (07/31/23 03:56) FIBRINOGEN 727 H PROTHROMBIN TIME (07/31/23 03:56) PROTHROMBIN TIME PATIENT 13.2 H INTERNATIONAL NORMAL RATIO 1.18 H CBC W/AUTO DIFF (07/31/23 03:56) WHITE BLOOD CELL 6.9 RED BLOOD CELL 3.23 L HEMOGLOBIN 10.1L L HEMATOCRIT 30.9L L MEAN CELL VOLUME 95.7 H MEAN CELL HGB 31.3 H MEAN CELL HGB CONCENTRATION 32.7 L RED CELL DISTRIBUTION WIDTH 13.2 PLATELET COUNT 207 MEAN PLATELET VOLUME 9.9 NEUTROPHIL % 64.2 LYMPHOCYTE % 18.1 L MONOCYTE % 13.5 H EOSINOPHIL % 3.0 BASOPHIL % 0.6 NEUTROPHIL # 4.43 LYMPHOCYTE # 1.25 MONOCYTE # 0.93 H EOSINOPHIL # 0.21 BASOPHIL # 0.04 Signed in PatientKeeper by ROCHELLE POWELL MD CF1 on 07/31/23 at 14:32 Cosigned by KURTIS LYNCH MD on 08/06/23 at 14:29 at 1429 at 1429 ATTENTION *EDITS and/or ADDENDA must be made in Patient Keeper for this note. * * Edits and ammendments created in [employer] are not visible * * in Patient Keeper or the legal medical record ([facility]). * RPT #: [id number] END OF REPORT [facility] 2023-07-31 13:54:00 [facility] ([facility]) Hospitalist Progress Note REPORT #: [id number] REPORT STATUS: Signed DATE: 07/31/23 TIME: 1354 PATIENT: KOTA MONTES UNIT #: [id number] ROOM #: P.[id number] BED: A : 62 AGE: 62 SEX: M ATTEND: Keenan Kumari MD ADM AUTHOR: Keenan Kumari MD ATTENTION *EDITS and/or ADDENDA must be made in Patient Keeper for this note. * * Edits and ammendments created in [employer] are not visible * * in Patient Keeper or the legal medical record ([facility]). * -- ASSESSMENT AND PLAN -- ADDITIONAL COMMENTS: Cardio consulted plan to take to procedure home meds ICU supportive care 07/26 - post impella implant now in icu with goals of stabilization and weaning and removal eventually per cardiology. started on bumex gtt for heart failure. UDS and close monitoring 07/28 - remains in icu critically ill intubated / sedated obtaining higher cardiac supportive care 07/31 - moving out of icu today to the floor. transitioning from bumex gtt to the q12 IV BID. plan to repeat ECHo Keenan Kumari MD Internal Medicine -- SUBJECTIVE -- PATIENT NARRATIVE: no acute issues d/w icu - transfer to floor today afebrile no nausea vomiting diarrhea no worsening chest pain -REVIEW OF SYSTEMS- COMMENT: 10 point ROS negative unless noted. -- OBJECTIVE -- VITALS (07/30 00:47 - 07/31 00:47): Temperature F: 98.3 (98.1 - 98.3) Temperature C: 37.2 (36.5 - 37.2) Temperature source: Oral Pulse Rate 105 (86 - 113) Respiratory rate: 17 (9 - 25) Blood pressure: 127/79 (115/65 - 137/81) Blood pressure source: Monitor I/Os (07/29 07:00 - 07/30 07:00): Net -1,414.00 Intake 2,111.00 Output 3,525 -EXAM- GENERAL: Well developed, well nourished, in no apparent distress. HEAD: Normocephalic, atraumatic. EARS: grossly normal hearing. NOSE: No deformity, no discharge MOUTH: Oropharynx without deformities or lesions, normal mucosa. CHEST: sternotomy site c/d/i, chest tubes and TPW noted LUNGS: Clear bilaterally with normal respiratory effort. HEART: Regular rate and rhythm, normal S1, S2, no murmurs EXTREMITIES: No clubbing, no cyanosis, no edema. NEUROLOGICAL: No focal deficits, cranial nerves II-XII grossly intact PSYCHIATRIC: Alert and oriented to time, person, place. -- DATA -- MEDICATIONS ESCITALOPRAM 20 MG PO DAILY ACETAMINOPHEN 650 MG PO Q6H PRN FOLIC ACID 1 MG PO DAILY HYDROcodone BITARTRATE/APAP 1 TAB PO Q6H PRN LIDOCAINE 1 PATCH TRANSDERM DAILY polyethylene glycoL 3350 1 PKT PO DAILY ASPIRIN 81 MG PO DAILY HYDROcodone BITARTRATE/APAP 1 TAB PO Q6H PRN ENOXAPARIN SODIUM 40 MG SUBQ DAILY TICAGRELOR 90 MG PO Q12HR PREGABALIN 50 MG PO BID DOCUSATE SODIUM 200 MG FEED-TUBE DAILY METOPROLOL TARTRATE 12.5 MG PO BID ATORVASTATIN CALCIUM 80 MG PO BEDTIME NICOTINE 21 MG TRANSDERM DAILY THIAMINE HCL 100 MG PO DAILY ONDANSETRON HCL/PF 4 MG IV Q4H PRN BUMETANIDE 1 MG IV Q12HR morphine SULFATE 4 MG IV Q2H PRN GLUCAGON 1 MG IM ASDIR PRN methocarbamoL 750 MG PO TID bisacodyL 10 MG RECTAL DAILY PRN clonazePAM 1 MG PO BEDTIME DEXTROSE 50%-WATER 25 ML IV ASDIR PRN ALPRAZolam 1 MG PO TID PRN LABS PTT (07/31/23 03:56) THROMBOPLASTIN TIME PARTIAL 31.0 COMPREHENSIVE METABOLIC PANEL (07/31/23 03:56) SODIUM 135 L POTASSIUM 3.2 L CHLORIDE 94 L CARBON DIOXIDE 33 H GLUCOSE 104 BLOOD UREA NITROGEN 12 GLOMERULAR FILTRATION RATE >=60 max estimate CREATININE 1.00 TOTAL PROTEIN 6.4 ALBUMIN 4.4 CALCIUM 8.8 BILIRUBIN TOTAL 0.6 SGOT/AST 36 H SGPT/ALT 22 ALKALINE PHOSPHATASE 83.0 MAG (07/31/23 03:56) MAGNESIUM 1.8 PHOS (07/31/23 03:56) PHOSPHOROUS 4.7 FIB (07/31/23 03:56) FIBRINOGEN 727 H PROTHROMBIN TIME (07/31/23 03:56) PROTHROMBIN TIME PATIENT 13.2 H INTERNATIONAL NORMAL RATIO 1.18 H CBC W/AUTO DIFF (07/31/23 03:56) WHITE BLOOD CELL 6.9 RED BLOOD CELL 3.23 L HEMOGLOBIN 10.1L L HEMATOCRIT 30.9L L MEAN CELL VOLUME 95.7 H MEAN CELL HGB 31.3 H MEAN CELL HGB CONCENTRATION 32.7 L RED CELL DISTRIBUTION WIDTH 13.2 PLATELET COUNT 207 MEAN PLATELET VOLUME 9.9 NEUTROPHIL % 64.2 LYMPHOCYTE % 18.1 L MONOCYTE % 13.5 H EOSINOPHIL % 3.0 BASOPHIL % 0.6 NEUTROPHIL # 4.43 LYMPHOCYTE # 1.25 MONOCYTE # 0.93 H EOSINOPHIL # 0.21 BASOPHIL # 0.04 Signed in PatientKeeper by Keeann Kumari MD on 08/01/23 at 00:49 at 0049 ATTENTION *EDITS and/or ADDENDA must be made in Patient Keeper for this note. * * Edits and ammendments created in [employer] are not visible * * in Patient Keeper or the legal medical record ([facility]). * [facility] #: [id number] END OF REPORT [facility] 2023-07-30 10:13:00 [facility] ([facility]) Cardiology Progress Notes REPORT #: [id number] REPORT STATUS: Signed DATE: 07/30/23 TIME: 1013 PATIENT: KOTA MONTES UNIT #: [id number] ROOM #: [id number] BED: 1 : 62 AGE: 62 SEX: M ATTEND: Keenan Kumari MD ADM AUTHOR: Rochelle Powell MD CF1 ATTENTION *EDITS and/or ADDENDA must be made in Patient Keeper for this note. * * Edits and ammendments created in [employer] are not visible * * in Patient Keeper or the legal medical record ([facility]). * -- CO-SIGNATURE -- COMMENTS: I have seen and examined the patient with the business department chair fellow Dr. Rochelle Powell MD on 07/30/2023. I have reviewed all the clinical information, lab investigations, and imaging data. I agree with the following examination, findings, assessment and plan. I was present and supervised. Signed in PatientKeeper by KURTIS LYNCH MD on 07/30/23 at 21:19 -- ASSESSMENT AND PLAN -- GENERAL ASSESSMENT: 62 y/o M with HTN, HLD, CAD and NM s/p PCI 2005, 06/2022, 12/24/2022, S/P CABG x 2 BOGGS to LAD and SVG to OM (Dr. Pike) in 06/13/2023, Hx of alcohol abuse, and nicotine use who presented to ER by EMS c/o SOB and chest pain, with EKG concerning for acute NM. I evaluated the patient in the ER he reports OSB started yesterday, progressive and c/o chest pain since 12:30 pm today, continuous, mov=derate to severe, no radiation, heaviness, decreased with pain medication, at rest, no specific exacerbating factors, and associated with SOB. No palpitations, lightheadedness, no LOC, and no sweating. The patient was brought to ER, vitals were normal, O2 in mid 90s on RA. The patient refuses to take nitro saying it does not help him, EMS gave him ASA 325 and fentanyl 100 mcg IV. In ER, STEMI was activated. The patent was evaluated emergently in ER, no STEMI criteria per ECG. While in the ER, the patient developed acute respiratory distress, O2 desaturation, requiringO2 via NRB mask . Stat echo showed LV EF <20%. Echo 06/2023: Estimated EF 30-34% 07/25: Trop 51.2 BNP: 1640 CXR: CHF with mild pulmonary edema EKG: L BB, No criteria st elevation Echo on 07/26: The estimated ejection fraction is 30-34%. There is moderate diffuse hypokinesis. Grade I diastolic dysfunction. Depth of impella inflow cannula around 2.7 cm from the aortic valve. 07/28: Impella removal, and extubation Dx: Cardiogenic shock, resolving Acue decompensated HF (HFrEF), resolving Acute pulmonary edema, resolving Acute hypoxemic respiratory failure, on O2 via NC, s/p extubation Hx of CAD, s/o CABG x2 06/[address] Pike as above Lactic acidosis, resolved HTN HLD Plan: ICU level of care S/P LHC on 07/25: paten grafts (BOGGS to LAD and sVG to OM), mid and distal RCA intent stenosis s/p PCIs Hemodynamics and tele monitoring, all satisfactory. DAPT with ASA and Brilinta, high intensity statin (on atorvastatin 80 mg) Diuresis as indicated, on bumex gtt Monitor, renal function, and replace lyes. PT -- SUBJECTIVE -- HPI: S/P Impella removals and extubation No new c/o -- OBJECTIVE -- VITALS (07/28 10:13 - 07/29 10:13): Temperature F: 97.8 (97.2 - 98.8) Temperature source: Oral Pulse Rate 107 (71 - 121) Respiratory rate: 21 (10 - 31) Blood pressure: 128/60 (83/40 - 149/76) Blood pressure source: Arterial I/Os (07/28 07:00 - 07/29 07:00): Net -3,869.30 Intake 1,365.70 Output 5,235 -EXAM- GENERAL: NAD HEAD: Normocephalic, atraumatic. EYES: PERRL, conjunctiva and sclera clear, without nystagmus, lids normal. EARS: Grossly normal hearing. NOSE: No deformity, no discharge, no inflammation, no lesions. MOUTH: Oropharynx without deformities or lesions, normal mucosa. NECK: Supple. No JVD. Trachea midline. CHEST: Surgical scar noted LUNGS: Clear bilaterally with normal respiratory effort. no wheezes HEART: Regular rate and rhythm, normal S1, S2, no murmurs, no rubs, no gallops, no clicks. ABDOMEN: Soft, non-tender, no organomegaly, no masses noted. MUSCULOSKELETAL: No deformity, joint ROM grossly normal. EXTREMITIES: No cyanosis, no edema. Groins are ok NEUROLOGICAL: Aox3, no focal deficits PULSES: Pulses normal in all extremities. SKIN: Intact without significant lesions, or rashes. -- DATA -- MEDICATIONS MAGNESIUM SULFATE 2 GM IV ASDIR (PRN) ESCITALOPRAM 20 MG PO DAILY ACETAMINOPHEN 650 MG PO Q6H PRN FOLIC ACID 1 MG PO DAILY HYDROcodone BITARTRATE/APAP 1 TAB PO Q6H PRN SODIUM CHLORIDE 0.9% 1000 ML IV .Q24H HEPARIN PHARMACY TO MONITOR 1 EACH IV ASDIR MAGNESIUM SULFATE 4 G IV ASDIR (PRN) polyethylene glycoL 3350 1 PKT PO DAILY ASPIRIN 81 MG PO DAILY HYDROcodone BITARTRATE/APAP 1 TAB PO Q6H PRN MUPIROCIN 1 APPLIC NASAL BID TICAGRELOR 90 MG PO Q12HR SOD BIPHOS/POT PHOSPHATE 2 PKT PO ASDIR PRN PREGABALIN 50 MG PO BID HEPARIN/SOD CHLOR 0.45% 05216 UNITS IV TITRATE DOCUSATE SODIUM 200 MG FEED-TUBE DAILY POTASSIUM CHLORIDE 20 MEQ PO ASDIR PRN METOPROLOL TARTRATE 12.5 MG PO BID clonazePAM 1 MG PO BID ATORVASTATIN CALCIUM 80 MG PO BEDTIME NICOTINE 21 MG TRANSDERM DAILY THIAMINE HCL 100 MG PO DAILY POTASSIUM CHLORIDE IN WATER 10 MEQ IV ASDIR (PRN) ONDANSETRON HCL/PF 4 MG IV Q4H PRN LORazepam 1 MG IV Q4H PRN SODIUM PHOSPHATE with/in SODIUM CHLORIDE 0.9% 20 MM IV ASDIR (PRN) morphine SULFATE 4 MG IV Q2H PRN GLUCAGON 1 MG IM ASDIR PRN SODIUM CHLORIDE 100 mL BAG with/in BUMETANIDE 60 ML IV .Q10H CALCIUM GLUC IN NACL, ISO-OSM 2 GM IV ASDIR (PRN) bisacodyL 10 MG RECTAL DAILY PRN SODIUM PHOSPHATE with/in SODIUM CHLORIDE 0.9% 30 MM IV ASDIR (PRN) INSULIN LISPRO 0 UNITS SUBQ Q6HR DEXTROSE 50%-WATER 25 ML IV ASDIR PRN SODIUM BICARBONATE 8.4% with/in DEXTROSE 5%-WATER 25 MEQ MISC ASDIR LABS BLOOD GAS W/ELECTROLYTES (07/30/23 06:02) ARTERIAL BLOOD GAS PH 7.42 ARTERIAL BLOOD GAS PCO2 42.8 ARTERIAL BLOOD GAS PO2 64.6 L BICARBONATE TOTAL HCO3 27.2 H BASE EXCESS 2.4 H ABG O2 SATURATION 93.0 L ARTERIAL FIO2 28.0 ABG VENT MODE NASAL CANNULA ALLENS TEST NOT APPLICABLE SODIUM (POC) 133 L POTASSIUM (POC) 3.59 L CHLORIDE (ARTERIAL) 93 L GLUCOSE 90 IONIZED CALCIUM 1.24 POC LACTIC ACID 1.42 TOTAL HGB 11.2 D L CARBOXYHEMOGLOBIN 0.6 METHEMOGLOBIN <0.8 HHb 7.0 TCO2 ARTERIAL 28.5 PHOS (07/30/23 05:59) PHOSPHOROUS 4.5 BASIC METABOLIC PANEL (07/30/23 05:59) SODIUM 136 POTASSIUM 3.5 CHLORIDE 97L L CARBON DIOXIDE 30 GLUCOSE 92 BLOOD UREA NITROGEN 11 GLOMERULAR FILTRATION RATE >=60 max estimate CREATININE 0.80 CALCIUM 9.6 MAG (07/30/23 05:59) MAGNESIUM 2.4 BLOOD GAS W/ELECTROLYTES (07/30/23 00:40) ARTERIAL BLOOD GAS PH 7.44 ARTERIAL BLOOD GAS PCO2 40.3 ARTERIAL BLOOD GAS PO2 68.4 L BICARBONATE TOTAL HCO3 26.9 H BASE EXCESS 2.7 H ABG O2 SATURATION 94.0 L ARTERIAL FIO2 28.0 ABG VENT MODE NASAL CANNULA ALLENS TEST No SODIUM (POC) 132 L POTASSIUM (POC) 3.68 CHLORIDE (ARTERIAL) 95 L GLUCOSE 103 IONIZED CALCIUM 1.18 POC LACTIC ACID 2.29 H TOTAL HGB 10.6 L OXYHEMOGLOBIN 93.2 CARBOXYHEMOGLOBIN 0.5 METHEMOGLOBIN <0.8 HHb 6.0 TCO2 ARTERIAL 28.2 COMPREHENSIVE METABOLIC PANEL (07/30/23 00:36) SODIUM 135 L POTASSIUM 3.6 CHLORIDE 98 CARBON DIOXIDE 27 GLUCOSE 105 BLOOD UREA NITROGEN 11 GLOMERULAR FILTRATION RATE >=60 max estimate CREATININE 0.70 TOTAL PROTEIN 6.6 ALBUMIN 4.2 CALCIUM 9.2 BILIRUBIN TOTAL 0.8 SGOT/AST 20 SGPT/ALT 9 L ALKALINE PHOSPHATASE 74.0 PHOS (07/30/23 00:36) PHOSPHOROUS 4.0 CBC W/AUTO DIFF (07/30/23 00:36) WHITE BLOOD CELL 11.9H H RED BLOOD CELL 2.91 L HEMOGLOBIN 9.2L L HEMATOCRIT 28.1L L MEAN CELL VOLUME 96.6 H MEAN CELL HGB 31.6 H MEAN CELL HGB CONCENTRATION 32.7 L RED CELL DISTRIBUTION WIDTH 13.4 PLATELET COUNT 170 MEAN PLATELET VOLUME 10.2 NEUTROPHIL % 77.8 H LYMPHOCYTE % 10.6 L MONOCYTE % 9.8 H EOSINOPHIL % 1.0 BASOPHIL % 0.3 NEUTROPHIL # 9.24 H LYMPHOCYTE # 1.26 MONOCYTE # 1.17 H EOSINOPHIL # 0.12 BASOPHIL # 0.03 BNP (07/30/23 00:36) B-TYPE NATRIURETIC PEPTIDE 597 H MAG (07/30/23 00:36) MAGNESIUM 2.0 FIB (07/30/23 00:35) FIBRINOGEN 753 H PROTHROMBIN TIME (07/30/23 00:35) PROTHROMBIN TIME PATIENT 13.5 H INTERNATIONAL NORMAL RATIO 1.21 H PTT (07/30/23 00:35) THROMBOPLASTIN TIME PARTIAL 30.1 D BLOOD GAS W/ELECTROLYTES (07/29/23 20:38) ARTERIAL BLOOD GAS PH 7.44 ARTERIAL BLOOD GAS PCO2 36.5 ARTERIAL BLOOD GAS PO2 80.4 BICARBONATE TOTAL HCO3 24.5 H BASE EXCESS 0.6 ABG O2 SATURATION 95.8 ARTERIAL FIO2 28.0 ABG VENT MODE NASAL CANNULA ALLENS TEST No SODIUM (POC) 130 L POTASSIUM (POC) 3.88 CHLORIDE (ARTERIAL) 95 L GLUCOSE 107 H IONIZED CALCIUM 1.21 POC LACTIC ACID 1.68 TOTAL HGB 10.5 L OXYHEMOGLOBIN 95.5 CARBOXYHEMOGLOBIN 0.3 METHEMOGLOBIN <0.8 HHb 4.2 TCO2 ARTERIAL 25.6 MAG (07/29/23 18:43) MAGNESIUM 2.0 BASIC METABOLIC PANEL (07/29/23 18:43) SODIUM 135L L POTASSIUM 4.1 CHLORIDE 99 CARBON DIOXIDE 26 GLUCOSE 117H H BLOOD UREA NITROGEN 12 GLOMERULAR FILTRATION RATE >=60 max estimate CREATININE 0.90 CALCIUM 9.2 PHOS (07/29/23 18:43) PHOSPHOROUS 3.9 BASIC METABOLIC PANEL (07/29/23 15:04) SODIUM 135L L POTASSIUM 4.1 CHLORIDE 100 CARBON DIOXIDE 26 GLUCOSE 127H H BLOOD UREA NITROGEN 12 GLOMERULAR FILTRATION RATE >=60 max estimate CREATININE 0.90 CALCIUM 9.8 MAG (07/29/23 15:04) MAGNESIUM 1.7 CBC W/AUTO DIFF (07/29/23 15:04) WHITE BLOOD CELL 13.0H H RED BLOOD CELL 2.88 L HEMOGLOBIN 9.3L L HEMATOCRIT 27.4L L MEAN CELL VOLUME 95.1 H MEAN CELL HGB 32.3 H MEAN CELL HGB CONCENTRATION 33.9 RED CELL DISTRIBUTION WIDTH 13.5 PLATELET COUNT 153 MEAN PLATELET VOLUME 9.9 NEUTROPHIL % 84.7 H LYMPHOCYTE % 5.5 L MONOCYTE % 8.6 EOSINOPHIL % 0.5 BASOPHIL % 0.2 NEUTROPHIL # 11.03 H LYMPHOCYTE # 0.72 L MONOCYTE # 1.12 H EOSINOPHIL # 0.07 BASOPHIL # 0.03 PHOS (07/29/23 15:04) PHOSPHOROUS 4.1 Signed in PatientKeeper by ROCHELLE POWELL MD CF1 on 07/30/23 at 10:16 Cosigned by KURTIS LYNCH MD on 07/30/23 at 21:19 at 2118 at 2118 ATTENTION *EDITS and/or ADDENDA must be made in Patient Keeper for this note. * * Edits and ammendments created in [facility] are not visible * * in Patient Keeper or the legal medical record (HPF). * RPT #: [id number] END OF REPORT [facility] 2023-07-30 06:54:00 [facility] ([facility]) Hospitalist Progress Note REPORT #: [id number] REPORT STATUS: Signed DATE: 07/30/23 TIME: 653 PATIENT: KOTA MONTES UNIT #: [id number] ROOM #: [id number] BED: A : 62 AGE: 62 SEX: M ATTEND: Keenan Kumari MD ADM AUTHOR: Keenan Kumari MD ATTENTION *EDITS and/or ADDENDA must be made in Patient Keeper for this note. * * Edits and ammendments created in [employer] are not visible * * in Patient Keeper or the legal medical record (HPF). * -- ASSESSMENT AND PLAN -- PROBLEMS: 1: Cardiogenic shock 2: Coronary artery disease 3: Chest pain, unspecified type 4: Non-ST elevation (NSTEMI) myocardial infarction 5: Alcohol abuse with unspecified alcohol-induced disorder 6: Unstable angina 7: Cervicalgia 8: Alcohol abuse 9: Heart failure, unspecified 10: Chronic disease anemia 11: Hypertension, essential 12: Acute on chronic systolic heart failure ADDITIONAL COMMENTS: Cardio consulted plan to take to procedure home meds ICU supportive care 07/26 - post impella implant now in icu with goals of stabilization and weaning and removal eventually per cardiology. started on bumex gtt for heart failure. UDS and close monitoring 07/28 - remains in icu critically ill intubated / sedated obtaining higher cardiac supportive care Keenan Kumari MD Internal Medicine -- SUBJECTIVE -- PATIENT NARRATIVE: no acute issues overnight stable afebrile no n/v/d -REVIEW OF SYSTEMS- COMMENT: 10 point ROS negative unless noted. -- OBJECTIVE -- VITALS (07/28 23:16 - 07/29 23:16): Temperature F: 98.0 (97.8 - 98.8) Temperature source: Oral Pulse Rate 98 (76 - 121) Respiratory rate: 15 (9 - 34) Blood pressure: 132/74 (77/45 - 195/195) Blood pressure source: Monitor I/Os (07/28 07:00 - 07/29 07:00): Net -3,869.30 Intake 1,365.70 Output 5,235 -EXAM- GENERAL: Well developed, well nourished, in no apparent distress. HEAD: Normocephalic, atraumatic. EARS: grossly normal hearing. NOSE: No deformity, no discharge MOUTH: Oropharynx without deformities or lesions, normal mucosa. CHEST: sternotomy site c/d/i, chest tubes and TPW noted LUNGS: Clear bilaterally with normal respiratory effort. HEART: Regular rate and rhythm, normal S1, S2, no murmurs EXTREMITIES: No clubbing, no cyanosis, no edema. NEUROLOGICAL: No focal deficits, cranial nerves II-XII grossly intact PSYCHIATRIC: Alert and oriented to time, person, place. -- DATA -- MEDICATIONS MAGNESIUM SULFATE 2 GM IV ASDIR (PRN) HYDROcodone BITARTRATE/APAP 1 TAB PO Q6H PRN MAGNESIUM SULFATE 4 G IV ASDIR (PRN) HYDROcodone BITARTRATE/APAP 1 TAB PO Q6H PRN MUPIROCIN 1 APPLIC NASAL BID TICAGRELOR 90 MG PO Q12HR SOD BIPHOS/POT PHOSPHATE 2 PKT PO ASDIR PRN DOCUSATE SODIUM 200 MG FEED-TUBE DAILY clonazePAM 1 MG PO BID NICOTINE 21 MG TRANSDERM DAILY LORazepam 1 MG IV Q4H PRN SODIUM CHLORIDE 100 mL BAG with/in BUMETANIDE 60 ML IV .Q10H bisacodyL 10 MG RECTAL DAILY PRN DEXTROSE 50%-WATER 25 ML IV ASDIR PRN ESCITALOPRAM 20 MG PO DAILY ACETAMINOPHEN 650 MG PO Q6H PRN FOLIC ACID 1 MG PO DAILY SODIUM CHLORIDE 0.9% 1000 ML IV .Q24H LIDOCAINE 1 PATCH TRANSDERM DAILY polyethylene glycoL 3350 1 PKT PO DAILY ASPIRIN 81 MG PO DAILY ENOXAPARIN SODIUM 40 MG SUBQ DAILY PREGABALIN 50 MG PO BID POTASSIUM CHLORIDE 20 MEQ PO ASDIR PRN METOPROLOL TARTRATE 12.5 MG PO BID ATORVASTATIN CALCIUM 80 MG PO BEDTIME THIAMINE HCL 100 MG PO DAILY POTASSIUM CHLORIDE IN WATER 10 MEQ IV ASDIR (PRN) ONDANSETRON HCL/PF 4 MG IV Q4H PRN SODIUM PHOSPHATE with/in SODIUM CHLORIDE 0.9% 20 MM IV ASDIR (PRN) morphine SULFATE 4 MG IV Q2H PRN GLUCAGON 1 MG IM ASDIR PRN methocarbamoL 750 MG PO TID CALCIUM GLUC IN NACL, ISO-OSM 2 GM IV ASDIR (PRN) SODIUM PHOSPHATE with/in SODIUM CHLORIDE 0.9% 30 MM IV ASDIR (PRN) hydrOXYzine HCL 25 MG PO Q6H PRN LABS PROTHROMBIN TIME (07/30/23 11:12) PROTHROMBIN TIME PATIENT 13.6 H INTERNATIONAL NORMAL RATIO 1.22 H COMPREHENSIVE METABOLIC PANEL (07/30/23 11:12) SODIUM 134 L POTASSIUM 3.6 CHLORIDE 95 L CARBON DIOXIDE 30 GLUCOSE 152 H BLOOD UREA NITROGEN 13 GLOMERULAR FILTRATION RATE >=60 max estimate CREATININE 0.90 TOTAL PROTEIN 7.2 ALBUMIN 4.6 CALCIUM 9.4 BILIRUBIN TOTAL 0.7 SGOT/AST 28 SGPT/ALT 14 ALKALINE PHOSPHATASE 82.0 CBC W/AUTO DIFF (07/30/23 11:12) WHITE BLOOD CELL 9.6 RED BLOOD CELL 3.11 L HEMOGLOBIN 9.9L L HEMATOCRIT 28.8L L MEAN CELL VOLUME 92.6 D MEAN CELL HGB 31.8 H MEAN CELL HGB CONCENTRATION 34.4 RED CELL DISTRIBUTION WIDTH 13.3 PLATELET COUNT 199 MEAN PLATELET VOLUME 10.2 NEUTROPHIL % 81.3 H LYMPHOCYTE % 9.5 L MONOCYTE % 7.7 EOSINOPHIL % 0.8 BASOPHIL % 0.3 NEUTROPHIL # 7.80 H LYMPHOCYTE # 0.91 L MONOCYTE # 0.74 EOSINOPHIL # 0.08 BASOPHIL # 0.03 FIB (07/30/23 11:12) FIBRINOGEN 784 H PTT (07/30/23 11:12) THROMBOPLASTIN TIME PARTIAL 30.6 MAG (07/30/23 11:12) MAGNESIUM 1.9 PHOS (07/30/23 11:12) PHOSPHOROUS 3.4 BLOOD GAS W/ELECTROLYTES (07/30/23 06:02) ARTERIAL BLOOD GAS PH 7.42 ARTERIAL BLOOD GAS PCO2 42.8 ARTERIAL BLOOD GAS PO2 64.6 L BICARBONATE TOTAL HCO3 27.2 H BASE EXCESS 2.4 H ABG O2 SATURATION 93.0 L ARTERIAL FIO2 28.0 ABG VENT MODE NASAL CANNULA ALLENS TEST NOT APPLICABLE SODIUM (POC) 133 L POTASSIUM (POC) 3.59 L CHLORIDE (ARTERIAL) 93 L GLUCOSE 90 IONIZED CALCIUM 1.24 POC LACTIC ACID 1.42 TOTAL HGB 11.2 D L CARBOXYHEMOGLOBIN 0.6 METHEMOGLOBIN <0.8 HHb 7.0 TCO2 ARTERIAL 28.5 PHOS (07/30/23 05:59) PHOSPHOROUS 4.5 BASIC METABOLIC PANEL (07/30/23 05:59) SODIUM 136 POTASSIUM 3.5 CHLORIDE 97L L CARBON DIOXIDE 30 GLUCOSE 92 BLOOD UREA NITROGEN 11 GLOMERULAR FILTRATION RATE >=60 max estimate CREATININE 0.80 CALCIUM 9.6 MAG (07/30/23 05:59) MAGNESIUM 2.4 BLOOD GAS W/ELECTROLYTES (07/30/23 00:40) ARTERIAL BLOOD GAS PH 7.44 ARTERIAL BLOOD GAS PCO2 40.3 ARTERIAL BLOOD GAS PO2 68.4 L BICARBONATE TOTAL HCO3 26.9 H BASE EXCESS 2.7 H ABG O2 SATURATION 94.0 L ARTERIAL FIO2 28.0 ABG VENT MODE NASAL CANNULA ALLENS TEST No SODIUM (POC) 132 L POTASSIUM (POC) 3.68 CHLORIDE (ARTERIAL) 95 L GLUCOSE 103 IONIZED CALCIUM 1.18 POC LACTIC ACID 2.29 H TOTAL HGB 10.6 L OXYHEMOGLOBIN 93.2 CARBOXYHEMOGLOBIN 0.5 METHEMOGLOBIN <0.8 HHb 6.0 TCO2 ARTERIAL 28.2 COMPREHENSIVE METABOLIC PANEL (07/30/23 00:36) SODIUM 135 L POTASSIUM 3.6 CHLORIDE 98 CARBON DIOXIDE 27 GLUCOSE 105 BLOOD UREA NITROGEN 11 GLOMERULAR FILTRATION RATE >=60 max estimate CREATININE 0.70 TOTAL PROTEIN 6.6 ALBUMIN 4.2 CALCIUM 9.2 BILIRUBIN TOTAL 0.8 SGOT/AST 20 SGPT/ALT 9 L ALKALINE PHOSPHATASE 74.0 PHOS (07/30/23 00:36) PHOSPHOROUS 4.0 CBC W/AUTO DIFF (07/30/23 00:36) WHITE BLOOD CELL 11.9H H RED BLOOD CELL 2.91 L HEMOGLOBIN 9.2L L HEMATOCRIT 28.1L L MEAN CELL VOLUME 96.6 H MEAN CELL HGB 31.6 H MEAN CELL HGB CONCENTRATION 32.7 L RED CELL DISTRIBUTION WIDTH 13.4 PLATELET COUNT 170 MEAN PLATELET VOLUME 10.2 NEUTROPHIL % 77.8 H LYMPHOCYTE % 10.6 L MONOCYTE % 9.8 H EOSINOPHIL % 1.0 BASOPHIL % 0.3 NEUTROPHIL # 9.24 H LYMPHOCYTE # 1.26 MONOCYTE # 1.17 H EOSINOPHIL # 0.12 BASOPHIL # 0.03 BNP (07/30/23 00:36) B-TYPE NATRIURETIC PEPTIDE 597 H MAG (07/30/23 00:36) MAGNESIUM 2.0 FIB (07/30/23 00:35) FIBRINOGEN 753 H PROTHROMBIN TIME (07/30/23 00:35) PROTHROMBIN TIME PATIENT 13.5 H INTERNATIONAL NORMAL RATIO 1.21 H PTT (07/30/23 00:35) THROMBOPLASTIN TIME PARTIAL 30.1 D Signed in PatientKeeper by Keenan Kumari MD on 08/01/23 at 00:47 at 0047 ATTENTION *EDITS and/or ADDENDA must be made in Patient Keeper for this note. * * Edits and ammendments created in [employer] are not visible * * in Patient Keeper or the legal medical record ([facility]). * RPT #: [id number] END OF REPORT [facility] 2023-07-30 06:32:00 [facility] ([facility]) Intensive Care Progress Note REPORT #: [id number] REPORT STATUS: Signed DATE: 07/30/23 TIME: 631 PATIENT: KOTA MONTES UNIT #: [id number] #: [id number] BED: 1 : 61 AGE: 62 SEX: M ATTEND: Keenan Kumari MD ADM AUTHOR: Sherrie Stein MD ATTENTION *EDITS and/or ADDENDA must be made in Patient Keeper for this note. * * Edits and ammendments created in [employer] are not visible * * in Patient Keeper or the legal medical record (HPF). * -- ASSESSMENT AND PLAN -- HOSPITAL COURSE TO DATE: Patient is a 62-year-old male with PMH notable for CAD s/p 2V CAB (06/25) and PCI (, 06/24, 12/24), ischemic cardiomyopathy (EF 30-34%), HTN, HLD, h/o ETOH abuse, tobacco abuse, anxiety/depression, and medical non-compliance initially presenting to [facility] with a chief complaint of chest pain and shortness of breath on 07/25. Patient admitted to CVICU for management of acute cardiogenic shock requiring Impella support. 07/25: s/p Impella CP placement and LHC showing patent grafts, LVEDP 38, and PCI x1 to RCA; intubated 07/26: Repeat TTE on Impella support with improved EF (<20% -> 30-34%) 07/28: Impella decannulated and extubated GENERAL ASSESSMENT: Plan: Pain/Sedation #H/o ETOH Abuse and Polysubstance Abuse -D/c sedative gtts -Reports ongoing pain, however with h/o drug seeking behavior and polysubstance use -Continue APAP/Corinne 5mg/Corinne 10mg PRN mild/moderate/severe pain, morphine IV Q4H PRN breakthrough pain -Standing Robaxin, lidocaine patch, home Lyrica -Continue close monitoring of narcotic use Neuro/Psych #Agitation/Delirium #Anxiety/Depression -Agitated following extubation, exam otherwise non-focal -Known h/o ETOH abuse, low suspicion for withdrawal at present, continue close monitoring, thiamine/folate -Start Klonopin 1mg Q12H, continue home Lexapro, Atarax/Ativan PRN agitation (QTc prolonged, judicious use of antipsychotics) -Frequent reorientation/redirection, optimize sleep/wake cycle, delirium precautions Respiratory #Acute Hypoxic Respiratory Failure #Acute Pulmonary Edema #Tobacco Abuse -Extubated to [place], saturating well on 2L, continue supplemental O2 and wean as tolerated, goal SpO2 >92% -Continue aggressive diuresis -Serial CXRs, encourage IS Cardiovascular #Cardiogenic Shock s/p Impella CP Placement and Removal #Biventricular Heart Failure/Stress Cardiomyopathy #Multi-Vessel CAD s/p PCI to RCA (h/o CAB x2 and prior PCI) -EF on presentation severely depressed, repeat TTE shows EF 30-34% and grade I diastolic dysfunction -Suspect stress cardiomyopathy -Hemodynamically stable following Impella removal, not requiring inotropes/vasopressors -Maintain goal MAP >65 -D/c heparin gtt -DAPT/high-dose statin, resume Lopressor 12.5mg BID, up-titrate GDMT as tolerated -Continue diuresis with Bumex gtt to maintain net negative -Cardiology following, recommendations appreciated Gastrointestinal -Continue cardiac diet -SUP, bowel regimen Renal #Volume Overload -Renal function WNL -Strict I/O -Close monitoring of renal function while diuresing -Electrolyte protocol, maintain K >4.0, Phos >3.0, Mg >2.0 Infectious Disease -No evidence of infection at present, monitor fever curve Endocrine -Maintain goal BS 140-180 -Hypoglycemia protocol HEME #Acute Blood Loss Anemia -H/H stable, no evidence of bleeding -Transfuse for goal Hgb >8.0, platelets >10k or 20k with bleeding, and fibrinogen >150 MSK -PT/OT consulted PPX -DVT: LSQ -GI: None GOC -Code: FULL per patient (, NOK/surrogate medical decision maker) -Advance Care Planning: None per family Dispo: Continue ICU level care Medications reviewed with ICU pharmacist Patient is critically ill and at risk of imminent life threatening injury or -- SUBJECTIVE -- PATIENT NARRATIVE: Patient extubated yesterday. Precedex being weaned, but patient remains agitated, requesting narcotics and anxiolytics. Otherwise hemodynamically stable on 2L NC. -- OBJECTIVE -- VITALS (07/28 06:32 - 07/29 06:32): Temperature F: 98.8 (97.2 - 98.8) Temperature source: Axillary Pulse Rate 88 (63 - 102) Respiratory rate: 18 (10 - 31) Blood pressure: 120/55 (83/40 - 135/76) Blood pressure source: Arterial I/Os (07/27 07:00 - 07/28 07:00): Net -2,630.60 Intake 3,769.40 Output 6,400 -- DATA -- MEDICATIONS MAGNESIUM SULFATE 2 GM IV ASDIR (PRN) ESCITALOPRAM 20 MG PO DAILY ACETAMINOPHEN 650 MG PO Q6H PRN DOXYCYCLINE HYCLATE with/in SODIUM CHLORIDE 100 mL BAG 100 MG IV Q12HR FOLIC ACID 1 MG PO DAILY SODIUM CHLORIDE 0.9% 1000 ML IV .Q24H HEPARIN PHARMACY TO MONITOR 1 EACH IV ASDIR MAGNESIUM SULFATE 4 G IV ASDIR (PRN) polyethylene glycoL 3350 1 PKT PO DAILY ASPIRIN 81 MG PO DAILY MUPIROCIN 1 APPLIC NASAL BID TICAGRELOR 90 MG PO Q12HR SOD BIPHOS/POT PHOSPHATE 2 PKT PO ASDIR PRN PREGABALIN 50 MG PO BID POTASSIUM CHLORIDE 20 MEQ PO ASDIR PRN HEPARIN/SOD CHLOR 0.45% 21818 UNITS IV TITRATE DOCUSATE SODIUM 200 MG FEED-TUBE DAILY (Held) METOPROLOL TARTRATE 12.5 MG PO BID ATORVASTATIN CALCIUM 80 MG PO BEDTIME NICOTINE 21 MG TRANSDERM DAILY THIAMINE HCL 100 MG PO DAILY POTASSIUM CHLORIDE IN WATER 10 MEQ IV ASDIR (PRN) ONDANSETRON HCL/PF 4 MG IV Q4H PRN LORazepam 1 MG IV Q4H PRN dexmedeTOMIDine in 0.9 % NaCL 400 MCG IV TITRATE SODIUM PHOSPHATE with/in SODIUM CHLORIDE 0.9% 20 MM IV ASDIR (PRN) PANTOPRAZOLE with/in SODIUM CHLORIDE 0.9% 40 MG IV DAILY GLUCAGON 1 MG IM ASDIR PRN SODIUM CHLORIDE 100 mL BAG with/in BUMETANIDE 60 ML IV .Q10H CALCIUM GLUC IN NACL, ISO-OSM 2 GM IV ASDIR (PRN) SODIUM PHOSPHATE with/in SODIUM CHLORIDE 0.9% 30 MM IV ASDIR (PRN) bisacodyL 10 MG RECTAL DAILY PRN INSULIN LISPRO 0 UNITS SUBQ Q6HR DEXTROSE 50%-WATER 25 ML IV ASDIR PRN fentaNYL 1000 MCG IV TITRATE SODIUM BICARBONATE 8.4% with/in DEXTROSE 5%-WATER 25 MEQ MISC ASDIR LABS BLOOD GAS W/ELECTROLYTES (07/30/23 06:02) ARTERIAL BLOOD GAS PH 7.42 ARTERIAL BLOOD GAS PCO2 42.8 ARTERIAL BLOOD GAS PO2 64.6 L BICARBONATE TOTAL HCO3 27.2 H BASE EXCESS 2.4 H ABG O2 SATURATION 93.0 L ARTERIAL FIO2 28.0 ABG VENT MODE NASAL CANNULA ALLENS TEST NOT APPLICABLE SODIUM (POC) 133 L POTASSIUM (POC) 3.59 L CHLORIDE (ARTERIAL) 93 L GLUCOSE 90 IONIZED CALCIUM 1.24 POC LACTIC ACID 1.42 TOTAL HGB 11.2 D L CARBOXYHEMOGLOBIN 0.6 METHEMOGLOBIN <0.8 HHb 7.0 TCO2 ARTERIAL 28.5 BLOOD GAS W/ELECTROLYTES (07/30/23 00:40) ARTERIAL BLOOD GAS PH 7.44 ARTERIAL BLOOD GAS PCO2 40.3 ARTERIAL BLOOD GAS PO2 68.4 L BICARBONATE TOTAL HCO3 26.9 H BASE EXCESS 2.7 H ABG O2 SATURATION 94.0 L ARTERIAL FIO2 28.0 ABG VENT MODE NASAL CANNULA ALLENS TEST No SODIUM (POC) 132 L POTASSIUM (POC) 3.68 CHLORIDE (ARTERIAL) 95 L GLUCOSE 103 IONIZED CALCIUM 1.18 POC LACTIC ACID 2.29 H TOTAL HGB 10.6 L OXYHEMOGLOBIN 93.2 CARBOXYHEMOGLOBIN 0.5 METHEMOGLOBIN <0.8 HHb 6.0 TCO2 ARTERIAL 28.2 COMPREHENSIVE METABOLIC PANEL (07/30/23 00:36) SODIUM 135 L POTASSIUM 3.6 CHLORIDE 98 CARBON DIOXIDE 27 GLUCOSE 105 BLOOD UREA NITROGEN 11 GLOMERULAR FILTRATION RATE >=60 max estimate CREATININE 0.70 TOTAL PROTEIN 6.6 ALBUMIN 4.2 CALCIUM 9.2 BILIRUBIN TOTAL 0.8 SGOT/AST 20 SGPT/ALT 9 L ALKALINE PHOSPHATASE 74.0 PHOS (07/30/23 00:36) PHOSPHOROUS 4.0 BNP (07/30/23 00:36) B-TYPE NATRIURETIC PEPTIDE 597 H CBC W/AUTO DIFF (07/30/23 00:36) WHITE BLOOD CELL 11.9H H RED BLOOD CELL 2.91 L HEMOGLOBIN 9.2L L HEMATOCRIT 28.1L L MEAN CELL VOLUME 96.6 H MEAN CELL HGB 31.6 H MEAN CELL HGB CONCENTRATION 32.7 L RED CELL DISTRIBUTION WIDTH 13.4 PLATELET COUNT 170 MEAN PLATELET VOLUME 10.2 NEUTROPHIL % 77.8 H LYMPHOCYTE % 10.6 L MONOCYTE % 9.8 H EOSINOPHIL % 1.0 BASOPHIL % 0.3 NEUTROPHIL # 9.24 H LYMPHOCYTE # 1.26 MONOCYTE # 1.17 H EOSINOPHIL # 0.12 BASOPHIL # 0.03 MAG (07/30/23 00:36) MAGNESIUM 2.0 PTT (07/30/23 00:35) THROMBOPLASTIN TIME PARTIAL 30.1 D FIB (07/30/23 00:35) FIBRINOGEN 753 H PROTHROMBIN TIME (07/30/23 00:35) PROTHROMBIN TIME PATIENT 13.5 H INTERNATIONAL NORMAL RATIO 1.21 H BLOOD GAS W/ELECTROLYTES (07/29/23 20:38) ARTERIAL BLOOD GAS PH 7.44 ARTERIAL BLOOD GAS PCO2 36.5 ARTERIAL BLOOD GAS PO2 80.4 BICARBONATE TOTAL HCO3 24.5 H BASE EXCESS 0.6 ABG O2 SATURATION 95.8 ARTERIAL FIO2 28.0 ABG VENT MODE NASAL CANNULA ALLENS TEST No SODIUM (POC) 130 L POTASSIUM (POC) 3.88 CHLORIDE (ARTERIAL) 95 L GLUCOSE 107 H IONIZED CALCIUM 1.21 POC LACTIC ACID 1.68 TOTAL HGB 10.5 L OXYHEMOGLOBIN 95.5 CARBOXYHEMOGLOBIN 0.3 METHEMOGLOBIN <0.8 HHb 4.2 TCO2 ARTERIAL 25.6 MAG (07/29/23 18:43) MAGNESIUM 2.0 BASIC METABOLIC PANEL (07/29/23 18:43) SODIUM 135L L POTASSIUM 4.1 CHLORIDE 99 CARBON DIOXIDE 26 GLUCOSE 117H H BLOOD UREA NITROGEN 12 GLOMERULAR FILTRATION RATE >=60 max estimate CREATININE 0.90 CALCIUM 9.2 PHOS (07/29/23 18:43) PHOSPHOROUS 3.9 BASIC METABOLIC PANEL (07/29/23 15:04) SODIUM 135L L POTASSIUM 4.1 CHLORIDE 100 CARBON DIOXIDE 26 GLUCOSE 127H H BLOOD UREA NITROGEN 12 GLOMERULAR FILTRATION RATE >=60 max estimate CREATININE 0.90 CALCIUM 9.8 MAG (07/29/23 15:04) MAGNESIUM 1.7 CBC W/AUTO DIFF (07/29/23 15:04) WHITE BLOOD CELL 13.0H H RED BLOOD CELL 2.88 L HEMOGLOBIN 9.3L L HEMATOCRIT 27.4L L MEAN CELL VOLUME 95.1 H MEAN CELL HGB 32.3 H MEAN CELL HGB CONCENTRATION 33.9 RED CELL DISTRIBUTION WIDTH 13.5 PLATELET COUNT 153 MEAN PLATELET VOLUME 9.9 NEUTROPHIL % 84.7 H LYMPHOCYTE % 5.5 L MONOCYTE % 8.6 EOSINOPHIL % 0.5 BASOPHIL % 0.2 NEUTROPHIL # 11.03 H LYMPHOCYTE # 0.72 L MONOCYTE # 1.12 H EOSINOPHIL # 0.07 BASOPHIL # 0.03 PHOS (07/29/23 15:04) PHOSPHOROUS 4.1 PHOS (07/29/23 08:32) PHOSPHOROUS 4.6 MAG (07/29/23 08:32) MAGNESIUM 2.0 BASIC METABOLIC PANEL (07/29/23 07:51) SODIUM 134L L POTASSIUM 3.8 CHLORIDE 99 CARBON DIOXIDE 26 GLUCOSE 132H H BLOOD UREA NITROGEN 9 GLOMERULAR FILTRATION RATE >=60 max estimate CREATININE 0.80 CALCIUM 9.0 PTT (07/29/23 07:51) THROMBOPLASTIN TIME PARTIAL 75.8 H BLOOD GAS W/ELECTROLYTES (07/29/23 07:48) ARTERIAL BLOOD GAS PH 7.33 L ARTERIAL BLOOD GAS PCO2 50.6 H ARTERIAL BLOOD GAS PO2 230.7 H BICARBONATE TOTAL HCO3 25.8 H BASE EXCESS -0.6 ABG O2 SATURATION 99.6 ARTERIAL FIO2 80.0 ABG VENT MODE Ventilator ALLENS TEST NOT APPLICABLE SODIUM (POC) 133 L POTASSIUM (POC) 3.82 CHLORIDE (ARTERIAL) 97 L GLUCOSE 138 H IONIZED CALCIUM 1.22 POC LACTIC ACID 2.81 H TOTAL HGB 11.0 L OXYHEMOGLOBIN 99.3 H CARBOXYHEMOGLOBIN 0.2 METHEMOGLOBIN <0.8 HHb 0.4 TCO2 ARTERIAL 27.4 VENOUS BLOOD GAS (07/29/23 07:45) VENOUS BLOOD GAS PH 7.29 L VENOUS BLOOD GAS PCO2 54.7 VENOUS BLOOD GAS PO2 44.4 VBG HCO3 26 VBG BASE EXCESS -1.2 VENOUS BLOOD GAS O2 SAT 74 VENOUS BLOOD GAS TYPE Venous VENOUS BLOOD GAS FIO2 80.0 VBG VENT MODE Ventilator BLOOD GAS W/ELECTROLYTES (07/29/23 06:40) ARTERIAL BLOOD GAS PH 7.42 ARTERIAL BLOOD GAS PCO2 37.5 ARTERIAL BLOOD GAS PO2 87.9 BICARBONATE TOTAL HCO3 23.6 BASE EXCESS -0.7 ABG O2 SATURATION 96.6 ARTERIAL FIO2 80.0 ABG VENT MODE Ventilator ALLENS TEST No SODIUM (POC) 132 L POTASSIUM (POC) 3.76 CHLORIDE (ARTERIAL) 96 L GLUCOSE 130 H IONIZED CALCIUM 1.21 POC LACTIC ACID 1.20 TOTAL HGB 10.9 L OXYHEMOGLOBIN 96.3 CARBOXYHEMOGLOBIN 0.3 METHEMOGLOBIN <0.8 HHb 3.4 TCO2 ARTERIAL 24.7 -- QUALITY -- -MEDICATIONS- - I attest that the foregoing medication list in the medical record is true, accurate, and complete to the best of my knowledge. -- ATTESTATION -- TIME SPENT ON PATIENT CARE: - Critical Care: time spent apart from any procedure 51 minutes Patient was critically ill due to: Cardiogenic shock, acute decompensated heart failure, coronary artery disease. My treatment and management were: discussed on ICU multi-disciplinary rounds with nursing, pharmacy, respiratory therapy, case management and consultants including cardiology regarding management of cardiogenic shock, and CAD requiring PCI. CARE ACTIVITIES / CARE COORDINATION: - I have reviewed the history and repeated the carias elements - I have seen and examined this patient - I have reviewed the progress in the clinical course since the last examination - I have discussed the patient's condition with other members of the care team Signed in PatientKeeper by Sherrie Stein MD on 07/30/23 at 17:12 at 1712 ATTENTION *EDITS and/or ADDENDA must be made in Patient Keeper for this note. * * Edits and ammendments created in [employer] are not visible * * in Patient Keeper or the legal medical record (HPF). * [facility] #: [id number] END OF REPORT [facility] 2023-07-29 14:08:00 [id number] [facility] [address] [place] [address] PATIENT NAME: KOTA MONTES ADMIT DATE: 07/26/23 ACCOUNT NO: [id number] ROOM NO: [id number] AGE: 62 REPORT TYPE: OPERATIVE REPORT SEX: M ADMITTING PHYSICIAN:Keenan Kumari MD ATTENDING PHYSICIAN:Keenan Kumari MD OPERATION DATE: 07/29/2023 ATTENDING PHYSICIAN: Keenan Kumari MD [employer]ER: Austin Segal MD PROCEDURE PERFORMED: 1. Removal of percutaneous left heart ventricular assist device, arterial, separate and distinct fashion from insertion. INDICATION FOR PROCEDURE: Mr. Montes is a 62-year-old male with a past medical history of CAD, status post CABG, who presented with chief complaint of chest pain and shortness of breath, ruled in for NSTEMI, found to have cardiogenic shock. He underwent balloon angioplasty of the coronary artery, at which time he was found to have an elevated left ventricular end-diastolic pressure and an Impella. Left ventricular support device was inserted. He has been adequately diuresed over the last several days and has clinically improved. Plan is to remove Impella left ventricular circulatory support device. PREPROCEDURE DIAGNOSES: 1. Cardiogenic shock. 2. Acute systolic congestive heart failure. 3. Coronary artery disease, status post coronary artery bypass graft and percutaneous coronary intervention. POSTPROCEDURE DIAGNOSIS: Successful removal of Impella left ventricular support device from the left femoral arterial site with placement of 2 Perclose ProGlide closure devices. Also, removed the antegrade perfusion catheter in the left SFA as well as the inflow sheath in the right common femoral. PROCEDURE IN DETAIL: The patient was brought to the cardiac catheterization laboratory in a fasting state after written informed consent was obtained. The patient was prepped and draped in the usual sterile fashion. Next, 1% lidocaine was administered to the left groin. After that, a 0.035 J wire was placed in the side port of the left femoral Impella sheath. The Impella catheter was turned off and the Impella catheter and sheath were removed over the wire. A Perclose ProGlide device was advanced over the J-wire into the left femoral arteriotomy and the sutures were then deployed. A 7-Chinese sheath was placed in the left femoral arteriotomy site, which seemed to be occluding the arteriotomy well. A 7-Chinese sheath was then removed and a second Perclose ProGlide was deployed in the left femoral arteriotomy site achieving hemostasis. After that, I advanced the J-wire into the left SFA antegrade sheath and a 6-Chinese sheath was removed and hemostasis was achieved using 1 Perclose ProGlide device. PATIENT NAME: KOTA MONTES Finally, I removed the right common femoral inflow sheath over the J-wire and hemostasis was achieved using 1 Perclose ProGlide device. The patient tolerated the procedure well with no immediate complications. ESTIMATED BLOOD LOSS: 20-30 mL. CONCLUSION: Successful removal of left femoral Impella circulatory support device with placement of 2 Perclose ProGlide closure devices. Also, removed the retrograde and antegrade perfusion sheath with closure using two separate Perclose ProGlide closure devices. The patient tolerated the procedure well. ASSESSMENT AND PLAN: We will transfer back to the ICU for close monitoring. We will monitor the bilateral access site for hematoma. The patient should be stable for extubation later today. Dictated By: Austin Segal MD Date Dictated: 07/29/2023 14:08:59 Date Transcribed: 07/29/2023 14:39:06 [facility] [place]: [id number] Authenticated and Edited by Austin Segal MD On 08/24/23 12:51:09 PM at 1252 PATIENT NAME: KOTA MONTES [facility] 2023-07-29 10:53:00 [facility] ([facility]) Cardiology Progress Notes REPORT #: [id number] REPORT STATUS: Signed DATE: 07/29/23 TIME: 1053 PATIENT: KOTA MONTES UNIT #: [id number] ROOM #: [facility] BED: A : 62 AGE: 62 SEX: M ATTEND: Keenan Kumari MD ADM AUTHOR: Rochelle Powell MD 1 ATTENTION *EDITS and/or ADDENDA must be made in Patient Keeper for this note. * * Edits and ammendments created in [facility] are not visible * * in Patient Keeper or the legal medical record (HPF). * -- CO-SIGNATURE -- COMMENTS: I have personally seen and examined the patient independently, and reviewed the patient's history, exam, and all cardiac and laboratory data on 07/29/23. I agree with the history, physical, and the assessment and plan as outlined by Dr. Powell, Cardiovascular Fellow. Signed in PatientKeeper by AUSTIN SEGAL MD on 08/25/23 at 10:54 -- ASSESSMENT AND PLAN -- GENERAL ASSESSMENT: 62 y/o M with HTN, HLD, CAD and NM s/p PCI 2005, 06/2022, 12/24/2022, S/P CABG x 2 BOGGS to LAD and SVG to OM (Dr. Pike) in 06/13/2023, Hx of alcohol abuse, and nicotine use who presented to ER by EMS c/o SOB and chest pain, with EKG concerning for acute NM. I evaluated the patient in the ER he reports OSB started yesterday, progressive and c/o chest pain since 12:30 pm today, continuous, mov=derate to severe, no radiation, heaviness, decreased with pain medication, at rest, no specific exacerbating factors, and associated with SOB. No palpitations, lightheadedness, no LOC, and no sweating. The patient was brought to ER, vitals were normal, O2 in mid 90s on RA. The patient refuses to take nitro saying it does not help him, EMS gave him ASA 325 and fentanyl 100 mcg IV. In ER, STEMI was activated. The patent was evaluated emergently in ER, no STEMI criteria per ECG. While in the ER, the patient developed acute respiratory distress, O2 desaturation, requiringO2 via NRB mask . Stat echo showed LV EF <20%. Echo 06/2023: Estimated EF 30-34% 07/25: Trop 51.2 BNP: 1640 CXR: CHF with mild pulmonary edema EKG: L BB, No criteria st elevation Echo on 07/26: The estimated ejection fraction is 30-34%. There is moderate diffuse hypokinesis. Grade I diastolic dysfunction. Depth of impella inflow cannula around 2.7 cm from the aortic valve. Dx: Cardiogenic shock, resolving, On Impella P2 Acue decompensated HF (HFrEF), resolving Acute pulmonary edema, resolving Acute hypoxemic respiratory failure, on invasive mechanical ventilation Hx of CAD, s/o CABG x2 06/[address] Pike as above Lactic acidosis, resolved HTN HLD Plan: ICU level of care The patient is on IV sedation/analgesia. S/P LHC on 07/25: paten grafts (BOGGS to LAD and sVG to OM), mid and distal RCA intent stenosis s/p PCIs Hemodynamics and tele monitoring. Perfusion indices are good. Plan to remove Impella today. DAPT with ASA and Brilinta, high intensity statin (on atorvastatin 80 mg) Continue therapeutic anticoagulation with heparin, stop after Impella removal Diuresis as indicated, on bumex gtt Monitor, renal function, and replace lyes. -- SUBJECTIVE -- HPI: No acute events over the night On Impella support P2 -- OBJECTIVE -- VITALS (07/27 10:53 - 07/28 10:53): Temperature F: 97.8 (97.8 - 98.9) Temperature source: Axillary Pulse Rate 71 (62 - 109) Respiratory rate: 17 (12 - 30) Blood pressure: 101/52 (78/46 - 128/64) Blood pressure source: Arterial I/Os (07/27 07:00 - 07/28 07:00): Net -2,630.60 Intake 3,769.40 Output 6,400 -EXAM- GENERAL: Sedated, on invasive mechanical ventilation HEAD: Normocephalic, atraumatic. EYES: PERRL, conjunctiva and sclera clear, without nystagmus, lids normal. EARS: Grossly normal hearing. NOSE: No deformity, no discharge, no inflammation, no lesions. MOUTH: Oropharynx without deformities or lesions, normal mucosa. NECK: Supple. No JVD. Trachea midline. CHEST: Surgical scar noted LUNGS: Clear bilaterally with normal respiratory effort. no wheezes HEART: Regular rate and rhythm, normal S1, S2, no murmurs, no rubs, no gallops, no clicks. ABDOMEN: Soft, non-tender, no organomegaly, no masses noted. MUSCULOSKELETAL: No deformity, joint ROM grossly normal. EXTREMITIES: No cyanosis, no edema. Impella catheter and reperfusion catheters noted in the groins NEUROLOGICAL: Limited exam. On sedation PULSES: Pulses normal in all extremities. SKIN: Intact without significant lesions, or rashes. -- DATA -- MEDICATIONS MAGNESIUM SULFATE 2 GM IV ASDIR (PRN) ESCITALOPRAM 20 MG PO DAILY ACETAMINOPHEN 650 MG PO Q6H PRN DOXYCYCLINE HYCLATE with/in SODIUM CHLORIDE 100 mL BAG 100 MG IV Q12HR FOLIC ACID 1 MG PO DAILY SODIUM CHLORIDE 0.9% 1000 ML IV .Q24H [facility] TO MONITOR 1 EACH IV ASDIR MAGNESIUM SULFATE 4 G IV ASDIR (PRN) polyethylene glycoL 3350 1 PKT PO DAILY ASPIRIN 81 MG PO DAILY MUPIROCIN 1 APPLIC NASAL BID TICAGRELOR 90 MG PO Q12HR SOD BIPHOS/POT PHOSPHATE 2 PKT PO ASDIR PRN PREGABALIN 50 MG PO BID POTASSIUM CHLORIDE 20 MEQ PO ASDIR PRN HEPARIN/SOD CHLOR 0.45% 92129 UNITS IV TITRATE DOCUSATE SODIUM 200 MG FEED-TUBE DAILY (Held) METOPROLOL TARTRATE 12.5 MG PO BID ATORVASTATIN CALCIUM 80 MG PO BEDTIME NICOTINE 21 MG TRANSDERM DAILY THIAMINE HCL 100 MG PO DAILY POTASSIUM CHLORIDE IN WATER 10 MEQ IV ASDIR (PRN) ONDANSETRON HCL/PF 4 MG IV Q4H PRN LORazepam 1 MG IV Q4H PRN dexmedeTOMIDine in 0.9 % NaCL 400 MCG IV TITRATE SODIUM PHOSPHATE with/in SODIUM CHLORIDE 0.9% 20 MM IV ASDIR (PRN) PANTOPRAZOLE with/in SODIUM CHLORIDE 0.9% 40 MG IV DAILY GLUCAGON 1 MG IM ASDIR PRN SODIUM CHLORIDE 100 mL BAG with/in BUMETANIDE 60 ML IV .Q10H CALCIUM GLUC IN NACL, ISO-OSM 2 GM IV ASDIR (PRN) SODIUM PHOSPHATE with/in SODIUM CHLORIDE 0.9% 30 MM IV ASDIR (PRN) propofoL 1000 MG IV TITRATE bisacodyL 10 MG RECTAL DAILY PRN INSULIN LISPRO 0 UNITS SUBQ Q6HR DEXTROSE 50%-WATER 25 ML IV ASDIR PRN fentaNYL 1000 MCG IV TITRATE SODIUM BICARBONATE 8.4% with/in DEXTROSE 5%-WATER 25 MEQ MISC ASDIR LABS PHOS (07/29/23 08:32) PHOSPHOROUS 4.6 MAG (07/29/23 08:32) MAGNESIUM 2.0 BASIC METABOLIC PANEL (07/29/23 07:51) SODIUM 134L L POTASSIUM 3.8 CHLORIDE 99 CARBON DIOXIDE 26 GLUCOSE 132H H BLOOD UREA NITROGEN 9 GLOMERULAR FILTRATION RATE >=60 max estimate CREATININE 0.80 CALCIUM 9.0 PTT (07/29/23 07:51) THROMBOPLASTIN TIME PARTIAL 75.8 H BLOOD GAS W/ELECTROLYTES (07/29/23 06:40) ARTERIAL BLOOD GAS PH 7.42 ARTERIAL BLOOD GAS PCO2 37.5 ARTERIAL BLOOD GAS PO2 87.9 BICARBONATE TOTAL HCO3 23.6 BASE EXCESS -0.7 ABG O2 SATURATION 96.6 ARTERIAL FIO2 80.0 ABG VENT MODE Ventilator ALLENS TEST No SODIUM (POC) 132 L POTASSIUM (POC) 3.76 CHLORIDE (ARTERIAL) 96 L GLUCOSE 130 H IONIZED CALCIUM 1.21 POC LACTIC ACID 1.20 TOTAL HGB 10.9 L OXYHEMOGLOBIN 96.3 CARBOXYHEMOGLOBIN 0.3 METHEMOGLOBIN <0.8 HHb 3.4 TCO2 ARTERIAL 24.7 VENOUS BLOOD GAS (07/29/23 04:16) VENOUS BLOOD GAS PH 7.38 VENOUS BLOOD GAS PCO2 47.2 VENOUS BLOOD GAS PO2 35.7 VBG HCO3 27 VBG BASE EXCESS 1.6 VENOUS BLOOD GAS O2 SAT 67 VENOUS BLOOD GAS TYPE Venous VENOUS BLOOD GAS FIO2 80.0 VBG VENT MODE Ventilator MAG (07/29/23 04:14) MAGNESIUM 1.7 K (07/29/23 04:14) POTASSIUM 4.7 D VENOUS BLOOD GAS (07/29/23 00:25) VENOUS BLOOD GAS PH 7.42 VENOUS BLOOD GAS PCO2 39.5 VENOUS BLOOD GAS PO2 33.5 VBG HCO3 25 VBG BASE EXCESS 0.5 VENOUS BLOOD GAS O2 SAT 69 VENOUS BLOOD GAS TYPE Venous VENOUS BLOOD GAS FIO2 80.0 VBG VENT MODE Ventilator LDH (07/29/23 00:12) LACTIC DEHYDROGENASE(LDH) 351 H MAG (07/29/23 00:12) MAGNESIUM 2.0 PHOS (07/29/23 00:12) PHOSPHOROUS 3.9 TROPI (07/29/23 00:12) TROPONIN-I 551.0 *H PROTHROMBIN TIME (07/29/23 00:12) PROTHROMBIN TIME PATIENT 13.2 H INTERNATIONAL NORMAL RATIO 1.18 H CBC W/AUTO DIFF (07/29/23 00:12) WHITE BLOOD CELL 10.8 RED BLOOD CELL 2.97 L HEMOGLOBIN 9.6L L HEMATOCRIT 29.0L L MEAN CELL VOLUME 97.6 H MEAN CELL HGB 32.3 H MEAN CELL HGB CONCENTRATION 33.1 RED CELL DISTRIBUTION WIDTH 13.6 PLATELET COUNT 158 MEAN PLATELET VOLUME 9.9 NEUTROPHIL % 74.0 LYMPHOCYTE % 14.8 L MONOCYTE % 9.2 EOSINOPHIL % 1.0 BASOPHIL % 0.4 NEUTROPHIL # 7.99 H LYMPHOCYTE # 1.60 MONOCYTE # 0.99 H EOSINOPHIL # 0.11 BASOPHIL # 0.04 PTT (07/29/23 00:12) THROMBOPLASTIN TIME PARTIAL 71.4 H FIB (07/29/23 00:12) FIBRINOGEN 688 H COMPREHENSIVE METABOLIC PANEL (07/29/23 00:12) SODIUM 136 POTASSIUM 3.5 CHLORIDE 101 CARBON DIOXIDE 24 GLUCOSE 106 BLOOD UREA NITROGEN 10 GLOMERULAR FILTRATION RATE >=60 max estimate CREATININE 0.80 TOTAL PROTEIN 6.4 ALBUMIN 4.3 CALCIUM 9.7 BILIRUBIN TOTAL 1.0 SGOT/AST 19 SGPT/ALT < 7 L ALKALINE PHOSPHATASE 67.0 BLOOD GAS W/ELECTROLYTES (07/28/23 22:20) ARTERIAL BLOOD GAS PH 7.47 H ARTERIAL BLOOD GAS PCO2 31.1 L ARTERIAL BLOOD GAS PO2 86.3 BICARBONATE TOTAL HCO3 22.2 BASE EXCESS -0.8 ABG O2 SATURATION 97.1 ARTERIAL FIO2 80.0 ABG VENT MODE Ventilator ALLENS TEST No SODIUM (POC) 133 L POTASSIUM (POC) 3.53 L CHLORIDE (ARTERIAL) 99 GLUCOSE 105 H IONIZED CALCIUM 1.19 POC LACTIC ACID 1.23 TOTAL HGB 10.8 L OXYHEMOGLOBIN 96.8 CARBOXYHEMOGLOBIN 0.3 METHEMOGLOBIN <0.8 HHb 2.9 TCO2 ARTERIAL 23.1 L MAG (07/28/23 14:35) MAGNESIUM 1.8 PROTHROMBIN TIME (07/28/23 14:35) PROTHROMBIN TIME PATIENT 12.6 INTERNATIONAL NORMAL RATIO 1.13 H FIB (07/28/23 14:35) FIBRINOGEN 535 H PTT (07/28/23 14:35) THROMBOPLASTIN TIME PARTIAL 63.1 D H PHOS (07/28/23 14:35) PHOSPHOROUS 4.7 CBC W/AUTO DIFF (07/28/23 14:35) WHITE BLOOD CELL 13.2H H RED BLOOD CELL 2.90 L HEMOGLOBIN 9.4L L HEMATOCRIT 28.6L L MEAN CELL VOLUME 98.6 H MEAN CELL HGB 32.4 H MEAN CELL HGB CONCENTRATION 32.9 L RED CELL DISTRIBUTION WIDTH 13.8 PLATELET COUNT 165 MEAN PLATELET VOLUME 9.5 NEUTROPHIL % 84.5 H LYMPHOCYTE % 6.4 L MONOCYTE % 7.9 EOSINOPHIL % 0.4 BASOPHIL % 0.3 NEUTROPHIL # 11.14 H LYMPHOCYTE # 0.85 L MONOCYTE # 1.04 H EOSINOPHIL # 0.05 BASOPHIL # 0.04 BASIC METABOLIC PANEL (07/28/23 14:35) SODIUM 138 POTASSIUM 3.9 CHLORIDE 105 CARBON DIOXIDE 23 GLUCOSE 98 BLOOD UREA NITROGEN 10 GLOMERULAR FILTRATION RATE >=60 max estimate CREATININE 0.90 CALCIUM 8.8 Signed in PatientKeeper by ROCHELLE POWELL MD CF1 on 07/29/23 at 11:00 Cosigned by AUSTIN SEGAL MD on 08/25/23 at 10:54 at 1054 at 1054 ATTENTION *EDITS and/or ADDENDA must be made in Patient Keeper for this note. * * Edits and ammendments created in [employer] are not visible * * in Patient Keeper or the legal medical record (HPF). * RPT #: [id number] END OF REPORT [facility] 2023-07-29 09:34:00 [facility] ([facility]) Hospitalist Progress Note REPORT #: [id number] REPORT STATUS: Signed DATE: 07/29/23 TIME: 933 PATIENT: MONTESKOTA OHARA UNIT #: [id number] ROOM #: [id number] BED: 1 : 61 AGE: 62 SEX: M ATTEND: Keenan Kumari MD ADM AUTHOR: Keenan Kumari MD ATTENTION *EDITS and/or ADDENDA must be made in Patient Keeper for this note. * * Edits and ammendments created in [employer] are not visible * * in Patient Keeper or the legal medical record (HPF). * -- ASSESSMENT AND PLAN -- PROBLEMS: 1: Cardiogenic shock 2: Coronary artery disease 3: Chest pain, unspecified type 4: Non-ST elevation (NSTEMI) myocardial infarction 5: Alcohol abuse with unspecified alcohol-induced disorder 6: Unstable angina 7: Cervicalgia 8: Alcohol abuse 9: Heart failure, unspecified 10: Chronic disease anemia 11: Hypertension, essential 12: Acute on chronic systolic heart failure ADDITIONAL COMMENTS: Cardio consulted plan to take to procedure home meds ICU supportive care 07/26 - post impella implant now in icu with goals of stabilization and weaning and removal eventually per cardiology. started on bumex gtt for heart failure. UDS and close monitoring 07/28 - remains in icu critically ill intubated / sedated obtaining higher cardiac supportive care Keenan Kumari MD Internal Medicine -- SUBJECTIVE -- PATIENT NARRATIVE: remains intubated and sedated in the icu no noted fevers diuresis and cardiac support no noted sudden decompensation overnight -REVIEW OF SYSTEMS- COMMENT: 10 point ROS negative unless noted. -- OBJECTIVE -- VITALS (07/27 09:34 - 07/28 09:34): Temperature F: 97.8 (97.8 - 98.9) Temperature source: Axillary Pulse Rate 67 (62 - 109) Respiratory rate: 14 (12 - 30) Blood pressure: 102/48 (78/46 - 128/64) Blood pressure source: Arterial I/Os (07/27 07:00 - 07/28 07:00): Net -2,630.60 Intake 3,769.40 Output 6,400 -EXAM- GENERAL: Well developed, well nourished, in no apparent distress. HEAD: Normocephalic, atraumatic. EARS: grossly normal hearing. NOSE: No deformity, no discharge MOUTH: Oropharynx without deformities or lesions, normal mucosa. CHEST: sternotomy site c/d/i, chest tubes and TPW noted LUNGS: Clear bilaterally with normal respiratory effort. HEART: Regular rate and rhythm, normal S1, S2, no murmurs EXTREMITIES: No clubbing, no cyanosis, no edema. NEUROLOGICAL: No focal deficits, cranial nerves II-XII grossly intact PSYCHIATRIC: Alert and oriented to time, person, place. -- DATA -- MEDICATIONS MAGNESIUM SULFATE 2 GM IV ASDIR (PRN) ESCITALOPRAM 20 MG PO DAILY ACETAMINOPHEN 650 MG PO Q6H PRN DOXYCYCLINE HYCLATE with/in SODIUM CHLORIDE 100 mL BAG 100 MG IV Q12HR FOLIC ACID 1 MG PO DAILY SODIUM CHLORIDE 0.9% 1000 ML IV .Q24H [facility] TO MONITOR 1 EACH IV ASDIR MAGNESIUM SULFATE 4 G IV ASDIR (PRN) polyethylene glycoL 3350 1 PKT PO DAILY ASPIRIN 81 MG PO DAILY MUPIROCIN 1 APPLIC NASAL BID TICAGRELOR 90 MG PO Q12HR SOD BIPHOS/POT PHOSPHATE 2 PKT PO ASDIR PRN PREGABALIN 50 MG PO BID HEPARIN/SOD CHLOR 0.45% 01474 UNITS IV TITRATE DOCUSATE SODIUM 200 MG FEED-TUBE DAILY POTASSIUM CHLORIDE 20 MEQ PO ASDIR PRN (Held) METOPROLOL TARTRATE 12.5 MG PO BID ATORVASTATIN CALCIUM 80 MG PO BEDTIME NICOTINE 21 MG TRANSDERM DAILY THIAMINE HCL 100 MG PO DAILY POTASSIUM CHLORIDE IN WATER 10 MEQ IV ASDIR (PRN) ONDANSETRON HCL/PF 4 MG IV Q4H PRN LORazepam 1 MG IV Q4H PRN dexmedeTOMIDine in 0.9 % NaCL 400 MCG IV TITRATE SODIUM PHOSPHATE with/in SODIUM CHLORIDE 0.9% 20 MM IV ASDIR (PRN) PANTOPRAZOLE with/in SODIUM CHLORIDE 0.9% 40 MG IV DAILY GLUCAGON 1 MG IM ASDIR PRN SODIUM CHLORIDE 100 mL BAG with/in BUMETANIDE 60 ML IV .Q10H CALCIUM GLUC IN NACL, ISO-OSM 2 GM IV ASDIR (PRN) bisacodyL 10 MG RECTAL DAILY PRN SODIUM PHOSPHATE with/in SODIUM CHLORIDE 0.9% 30 MM IV ASDIR (PRN) propofoL 1000 MG IV TITRATE INSULIN LISPRO 0 UNITS SUBQ Q6HR DEXTROSE 50%-WATER 25 ML IV ASDIR PRN fentaNYL 1000 MCG IV TITRATE SODIUM BICARBONATE 8.4% with/in DEXTROSE 5%-WATER 25 MEQ MISC ASDIR LABS PHOS (07/29/23 08:32) PHOSPHOROUS 4.6 MAG (07/29/23 08:32) MAGNESIUM 2.0 BASIC METABOLIC PANEL (07/29/23 07:51) SODIUM 134L L POTASSIUM 3.8 CHLORIDE 99 CARBON DIOXIDE 26 GLUCOSE 132H H BLOOD UREA NITROGEN 9 GLOMERULAR FILTRATION RATE >=60 max estimate CREATININE 0.80 CALCIUM 9.0 PTT (07/29/23 07:51) THROMBOPLASTIN TIME PARTIAL 75.8 H BLOOD GAS W/ELECTROLYTES (07/29/23 06:40) ARTERIAL BLOOD GAS PH 7.42 ARTERIAL BLOOD GAS PCO2 37.5 ARTERIAL BLOOD GAS PO2 87.9 BICARBONATE TOTAL HCO3 23.6 BASE EXCESS -0.7 ABG O2 SATURATION 96.6 ARTERIAL FIO2 80.0 ABG VENT MODE Ventilator ALLENS TEST No SODIUM (POC) 132 L POTASSIUM (POC) 3.76 CHLORIDE (ARTERIAL) 96 L GLUCOSE 130 H IONIZED CALCIUM 1.21 POC LACTIC ACID 1.20 TOTAL HGB 10.9 L OXYHEMOGLOBIN 96.3 CARBOXYHEMOGLOBIN 0.3 METHEMOGLOBIN <0.8 HHb 3.4 TCO2 ARTERIAL 24.7 VENOUS BLOOD GAS (07/29/23 04:16) VENOUS BLOOD GAS PH 7.38 VENOUS BLOOD GAS PCO2 47.2 VENOUS BLOOD GAS PO2 35.7 VBG HCO3 27 VBG BASE EXCESS 1.6 VENOUS BLOOD GAS O2 SAT 67 VENOUS BLOOD GAS TYPE Venous VENOUS BLOOD GAS FIO2 80.0 VBG VENT MODE Ventilator MAG (07/29/23 04:14) MAGNESIUM 1.7 K (07/29/23 04:14) POTASSIUM 4.7 D VENOUS BLOOD GAS (07/29/23 00:25) VENOUS BLOOD GAS PH 7.42 VENOUS BLOOD GAS PCO2 39.5 VENOUS BLOOD GAS PO2 33.5 VBG HCO3 25 VBG BASE EXCESS 0.5 VENOUS BLOOD GAS O2 SAT 69 VENOUS BLOOD GAS TYPE Venous VENOUS BLOOD GAS FIO2 80.0 VBG VENT MODE Ventilator LDH (07/29/23 00:12) LACTIC DEHYDROGENASE(LDH) 351 H MAG (07/29/23 00:12) MAGNESIUM 2.0 PHOS (07/29/23 00:12) PHOSPHOROUS 3.9 TROPI (07/29/23 00:12) TROPONIN-I 551.0 *H PROTHROMBIN TIME (07/29/23 00:12) PROTHROMBIN TIME PATIENT 13.2 H INTERNATIONAL NORMAL RATIO 1.18 H CBC W/AUTO DIFF (07/29/23 00:12) WHITE BLOOD CELL 10.8 RED BLOOD CELL 2.97 L HEMOGLOBIN 9.6L L HEMATOCRIT 29.0L L MEAN CELL VOLUME 97.6 H MEAN CELL HGB 32.3 H MEAN CELL HGB CONCENTRATION 33.1 RED CELL DISTRIBUTION WIDTH 13.6 PLATELET COUNT 158 MEAN PLATELET VOLUME 9.9 NEUTROPHIL % 74.0 LYMPHOCYTE % 14.8 L MONOCYTE % 9.2 EOSINOPHIL % 1.0 BASOPHIL % 0.4 NEUTROPHIL # 7.99 H LYMPHOCYTE # 1.60 MONOCYTE # 0.99 H EOSINOPHIL # 0.11 BASOPHIL # 0.04 PTT (07/29/23 00:12) THROMBOPLASTIN TIME PARTIAL 71.4 H FIB (07/29/23 00:12) FIBRINOGEN 688 H COMPREHENSIVE METABOLIC PANEL (07/29/23 00:12) SODIUM 136 POTASSIUM 3.5 CHLORIDE 101 CARBON DIOXIDE 24 GLUCOSE 106 BLOOD UREA NITROGEN 10 GLOMERULAR FILTRATION RATE >=60 max estimate CREATININE 0.80 TOTAL PROTEIN 6.4 ALBUMIN 4.3 CALCIUM 9.7 BILIRUBIN TOTAL 1.0 SGOT/AST 19 SGPT/ALT < 7 L ALKALINE PHOSPHATASE 67.0 BLOOD GAS W/ELECTROLYTES (07/28/23 22:20) ARTERIAL BLOOD GAS PH 7.47 H ARTERIAL BLOOD GAS PCO2 31.1 L ARTERIAL BLOOD GAS PO2 86.3 BICARBONATE TOTAL HCO3 22.2 BASE EXCESS -0.8 ABG O2 SATURATION 97.1 ARTERIAL FIO2 80.0 ABG VENT MODE Ventilator ALLENS TEST No SODIUM (POC) 133 L POTASSIUM (POC) 3.53 L CHLORIDE (ARTERIAL) 99 GLUCOSE 105 H IONIZED CALCIUM 1.19 POC LACTIC ACID 1.23 TOTAL HGB 10.8 L OXYHEMOGLOBIN 96.8 CARBOXYHEMOGLOBIN 0.3 METHEMOGLOBIN <0.8 HHb 2.9 TCO2 ARTERIAL 23.1 L MAG (07/28/23 14:35) MAGNESIUM 1.8 PROTHROMBIN TIME (07/28/23 14:35) PROTHROMBIN TIME PATIENT 12.6 INTERNATIONAL NORMAL RATIO 1.13 H FIB (07/28/23 14:35) FIBRINOGEN 535 H PTT (07/28/23 14:35) THROMBOPLASTIN TIME PARTIAL 63.1 D H PHOS (07/28/23 14:35) PHOSPHOROUS 4.7 CBC W/AUTO DIFF (07/28/23 14:35) WHITE BLOOD CELL 13.2H H RED BLOOD CELL 2.90 L HEMOGLOBIN 9.4L L HEMATOCRIT 28.6L L MEAN CELL VOLUME 98.6 H MEAN CELL HGB 32.4 H MEAN CELL HGB CONCENTRATION 32.9 L RED CELL DISTRIBUTION WIDTH 13.8 PLATELET COUNT 165 MEAN PLATELET VOLUME 9.5 NEUTROPHIL % 84.5 H LYMPHOCYTE % 6.4 L MONOCYTE % 7.9 EOSINOPHIL % 0.4 BASOPHIL % 0.3 NEUTROPHIL # 11.14 H LYMPHOCYTE # 0.85 L MONOCYTE # 1.04 H EOSINOPHIL # 0.05 BASOPHIL # 0.04 BASIC METABOLIC PANEL (07/28/23 14:35) SODIUM 138 POTASSIUM 3.9 CHLORIDE 105 CARBON DIOXIDE 23 GLUCOSE 98 BLOOD UREA NITROGEN 10 GLOMERULAR FILTRATION RATE >=60 max estimate CREATININE 0.90 CALCIUM 8.8 Signed in PatientKeeper by Keenan Kumari MD on 07/29/23 at 09:35 at 0935 ATTENTION *EDITS and/or ADDENDA must be made in Patient Keeper for this note. * * Edits and ammendments created in [facility] are not visible * * in Patient Keeper or the legal medical record (HPF). * [facility] #: [id number] END OF REPORT [facility] 2023-07-29 06:16:00 [facility] ([facility]) Intensive Care Progress Note REPORT #: [id number] REPORT STATUS: Signed DATE: 07/29/23 TIME: 06 PATIENT: KOTA MONTES UNIT #: [id number] ROOM #: [id number] BED: 1 : 61 AGE: 62 SEX: M ATTEND: Keenan Kumari MD ADM AUTHOR: Sherrie Stein MD ATTENTION *EDITS and/or ADDENDA must be made in Patient Keeper for this note. * * Edits and ammendments created in [employer] are not visible * * in Patient Keeper or the legal medical record (HPF). * -- ASSESSMENT AND PLAN -- HOSPITAL COURSE TO DATE: Patient is a 62-year-old male with PMH notable for CAD s/p 2V CAB (06/25) and PCI ('06, 06/24, 12/24), ischemic cardiomyopathy (EF 30-34%), HTN, HLD, h/o ETOH abuse, tobacco abuse, anxiety/depression, and medical non-compliance initially presenting to [facility] with a chief complaint of chest pain and shortness of breath on 07/25. Patient admitted to CVICU for management of acute cardiogenic shock requiring Impella support. 07/25: s/p Impella CP placement and LHC showing patent grafts, LVEDP 38, and PCI x1 to RCA; intubated 07/26: Repeat TTE on Impella support with improved EF (<20% -> 30-34%) 07/28: Impella weaned to P2, planned for removal in laboratory analyst GENERAL ASSESSMENT: Plan: Pain/Sedation -Concern for Impella dislodgement due to agitation, maintain goal RASS of -2 to -3 while intubated -Continue propofol/fentanyl gtts -Plan to wean sedation and assess for extubation following Impella removal Neuro/Psych #Agitation/Delirium #Anxiety/Depression #H/o ETOH Abuse and Polysubstance Abuse -Awakens when sedation weaned, delirium improved and patient more appropriate, following commands -Known h/o ETOH abuse, monitor withdrawal, continue daily thiamine/folate, CIWA protocol if appropriate once off sedation -Continue home Lexapro -Frequent reorientation/redirection, optimize sleep/wake cycle, delirium precautions Respiratory #Acute Hypoxic Respiratory Failure #Acute Pulmonary Edema #Tobacco Abuse -Acute hypoxia 2/2 pulmonary edema in the setting of cardiogenic shock -Vent support improving, continue weaning as tolerated and assess for extubation following Impella removal -Continue aggressive diuresis for pulmonary edema -Serial CXRs/ABGs, CPT, pulmonary hygiene Cardiovascular #Cardiogenic Shock s/p Impella CP Placement #Biventricular Heart Failure #Multi-Vessel CAD s/p PCI to RCA (h/o CAB x2 and prior PCI) -TTE on admission with new biventricular failure, LV EF <20% and grade III diastolic dysfunction (previously 30-34%), repeat EF following PCI EF 30-34% and grade I diastolic dysfunction -Remains off inotropes/vasopressors, Impella weaned to P2, will assess for possible removal today -Continue HCO3 purge/heparin gtt, monitor for hemolysis -[id number] distal reperfusion catheter in place, neurovascular checks per protocol -Maintain goal MAP >65 -Trend lactate/SVO2 -DAPT/high-dose statin -Hold GDMT given hypotension, resume as able -Continue diuresis with Bumex gtt to maintain net negative -Cardiology following, recommendations appreciated, tentatively planning for Impella removal today (07/28) Gastrointestinal -Hold TFs prior to Impella removal -Will assess following extubation for possible initiation of PO intake -SUP, bowel regimen Renal #Volume Overload -Renal function WNL -Maintain Singh for strict I/O -Continue Bumex gtt to maintain net negative -Electrolyte protocol, maintain K >4.0, Phos >3.0, Mg >2.0 Infectious Disease -No evidence of infection at present, monitor fever curve -Continue doxycycline for device ppx Endocrine -SSI PRN, maintain goal BS 140-180 -Hypoglycemia protocol HEME #Acute Blood Loss Anemia -H/H stable, no evidence of bleeding -Continue close monitoring while on therapeutic anticoagulation -Transfuse for goal Hgb >8.0, platelets >10k or 20k with bleeding, and fibrinogen >150 MSK -PT/OT once extubated PPX -DVT: Heparin gtt -GI: PPI QD GOC -Code: FULL per patient (, NOK/surrogate medical decision maker) -Advance Care Planning: None per family Dispo: Continue ICU level care Medications reviewed with ICU pharmacist Patient is critically ill and at risk of imminent life threatening injury or -- SUBJECTIVE -- PATIENT NARRATIVE: BP stable overnight. Impella weaned to P3. AM SVO2 67. Patient remains sedated, but awakens to voice and follows commands. Endorses pain, updated on plans for possible Impella removal and extubation and patient verbalized understanding. -- OBJECTIVE -- VITALS (07/27 06:16 - 07/28 06:16): Temperature F: 98.9 (98.4 - 99.0) Temperature source: Axillary Pulse Rate 63 (62 - 109) Respiratory rate: 21 (14 - 29) Blood pressure: 104/54 (78/46 - 128/64) Blood pressure source: Arterial I/Os (07/26 07:00 - 07/27 07:00): Net 1,835.00 Intake 4,435.00 Output 2,600 -- DATA -- MEDICATIONS MAGNESIUM SULFATE 2 GM IV ASDIR (PRN) ESCITALOPRAM 20 MG PO DAILY ACETAMINOPHEN 650 MG PO Q6H PRN DOXYCYCLINE HYCLATE with/in SODIUM CHLORIDE 100 mL BAG 100 MG IV Q12HR FOLIC ACID 1 MG PO DAILY SODIUM CHLORIDE 0.9% 1000 ML IV .Q24H [facility]PAR[facility] PHARMACY TO MONITOR 1 EACH IV ASDIR MAGNESIUM SULFATE 4 G IV ASDIR (PRN) polyethylene glycoL 3350 1 PKT PO DAILY ASPIRIN 81 MG PO DAILY MUPIROCIN 1 APPLIC NASAL BID TICAGRELOR 90 MG PO Q12HR SOD BIPHOS/POT PHOSPHATE 2 PKT PO ASDIR PRN PREGABALIN 50 MG PO BID HEPARIN/SOD CHLOR 0.45% 86294 UNITS IV TITRATE DOCUSATE SODIUM 200 MG FEED-TUBE DAILY POTASSIUM CHLORIDE 20 MEQ PO ASDIR PRN (Held) METOPROLOL TARTRATE 12.5 MG PO BID ATORVASTATIN CALCIUM 80 MG PO BEDTIME NICOTINE 21 MG TRANSDERM DAILY THIAMINE HCL 100 MG PO DAILY POTASSIUM CHLORIDE IN WATER 10 MEQ IV ASDIR (PRN) ONDANSETRON HCL/PF 4 MG IV Q4H PRN LORazepam 1 MG IV Q4H PRN dexmedeTOMIDine in 0.9 % NaCL 400 MCG IV TITRATE SODIUM PHOSPHATE with/in SODIUM CHLORIDE 0.9% 20 MM IV ASDIR (PRN) PANTOPRAZOLE with/in SODIUM CHLORIDE 0.9% 40 MG IV DAILY GLUCAGON 1 MG IM ASDIR PRN SODIUM CHLORIDE 100 mL BAG with/in BUMETANIDE 60 ML IV .Q10H CALCIUM GLUC IN NACL, ISO-OSM 2 GM IV ASDIR (PRN) bisacodyL 10 MG RECTAL DAILY PRN SODIUM PHOSPHATE with/in SODIUM CHLORIDE 0.9% 30 MM IV ASDIR (PRN) propofoL 1000 MG IV TITRATE INSULIN LISPRO 0 UNITS SUBQ Q6HR DEXTROSE 50%-WATER 25 ML IV ASDIR PRN fentaNYL 1000 MCG IV TITRATE SODIUM BICARBONATE 8.4% with/in DEXTROSE 5%-WATER 25 MEQ MISC ASDIR LABS VENOUS BLOOD GAS (07/29/23 04:16) VENOUS BLOOD GAS PH 7.38 VENOUS BLOOD GAS PCO2 47.2 VENOUS BLOOD GAS PO2 35.7 VBG HCO3 27 VBG BASE EXCESS 1.6 VENOUS BLOOD GAS O2 SAT 67 VENOUS BLOOD GAS TYPE Venous VENOUS BLOOD GAS FIO2 80.0 VBG VENT MODE Ventilator MAG (07/29/23 04:14) MAGNESIUM 1.7 K (07/29/23 04:14) POTASSIUM 4.7 D VENOUS BLOOD GAS (07/29/23 00:25) VENOUS BLOOD GAS PH 7.42 VENOUS BLOOD GAS PCO2 39.5 VENOUS BLOOD GAS PO2 33.5 VBG HCO3 25 VBG BASE EXCESS 0.5 VENOUS BLOOD GAS O2 SAT 69 VENOUS BLOOD GAS TYPE Venous VENOUS BLOOD GAS FIO2 80.0 VBG VENT MODE Ventilator LDH (07/29/23 00:12) LACTIC DEHYDROGENASE(LDH) 351 H MAG (07/29/23 00:12) MAGNESIUM 2.0 PHOS (07/29/23 00:12) PHOSPHOROUS 3.9 TROPI (07/29/23 00:12) TROPONIN-I 551.0 *H FIB (07/29/23 00:12) FIBRINOGEN 688 H COMPREHENSIVE METABOLIC PANEL (07/29/23 00:12) SODIUM 136 POTASSIUM 3.5 CHLORIDE 101 CARBON DIOXIDE 24 GLUCOSE 106 BLOOD UREA NITROGEN 10 GLOMERULAR FILTRATION RATE >=60 max estimate CREATININE 0.80 TOTAL PROTEIN 6.4 ALBUMIN 4.3 CALCIUM 9.7 BILIRUBIN TOTAL 1.0 SGOT/AST 19 SGPT/ALT < 7 L ALKALINE PHOSPHATASE 67.0 PROTHROMBIN TIME (07/29/23 00:12) PROTHROMBIN TIME PATIENT 13.2 H INTERNATIONAL NORMAL RATIO 1.18 H CBC W/AUTO DIFF (07/29/23 00:12) WHITE BLOOD CELL 10.8 RED BLOOD CELL 2.97 L HEMOGLOBIN 9.6L L HEMATOCRIT 29.0L L MEAN CELL VOLUME 97.6 H MEAN CELL HGB 32.3 H MEAN CELL HGB CONCENTRATION 33.1 RED CELL DISTRIBUTION WIDTH 13.6 PLATELET COUNT 158 MEAN PLATELET VOLUME 9.9 NEUTROPHIL % 74.0 LYMPHOCYTE % 14.8 L MONOCYTE % 9.2 EOSINOPHIL % 1.0 BASOPHIL % 0.4 NEUTROPHIL # 7.99 H LYMPHOCYTE # 1.60 MONOCYTE # 0.99 H EOSINOPHIL # 0.11 BASOPHIL # 0.04 PTT (07/29/23 00:12) THROMBOPLASTIN TIME PARTIAL 71.4 H BLOOD GAS W/ELECTROLYTES (07/28/23 22:20) ARTERIAL BLOOD GAS PH 7.47 H ARTERIAL BLOOD GAS PCO2 31.1 L ARTERIAL BLOOD GAS PO2 86.3 BICARBONATE TOTAL HCO3 22.2 BASE EXCESS -0.8 ABG O2 SATURATION 97.1 ARTERIAL FIO2 80.0 ABG VENT MODE Ventilator ALLENS TEST No SODIUM (POC) 133 L POTASSIUM (POC) 3.53 L CHLORIDE (ARTERIAL) 99 GLUCOSE 105 H IONIZED CALCIUM 1.19 POC LACTIC ACID 1.23 TOTAL HGB 10.8 L OXYHEMOGLOBIN 96.8 CARBOXYHEMOGLOBIN 0.3 METHEMOGLOBIN <0.8 HHb 2.9 TCO2 ARTERIAL 23.1 L MAG (07/28/23 14:35) MAGNESIUM 1.8 PROTHROMBIN TIME (07/28/23 14:35) PROTHROMBIN TIME PATIENT 12.6 INTERNATIONAL NORMAL RATIO 1.13 H FIB (07/28/23 14:35) FIBRINOGEN 535 H PTT (07/28/23 14:35) THROMBOPLASTIN TIME PARTIAL 63.1 D H CBC W/AUTO DIFF (07/28/23 14:35) WHITE BLOOD CELL 13.2H H RED BLOOD CELL 2.90 L HEMOGLOBIN 9.4L L HEMATOCRIT 28.6L L MEAN CELL VOLUME 98.6 H MEAN CELL HGB 32.4 H MEAN CELL HGB CONCENTRATION 32.9 L RED CELL DISTRIBUTION WIDTH 13.8 PLATELET COUNT 165 MEAN PLATELET VOLUME 9.5 NEUTROPHIL % 84.5 H LYMPHOCYTE % 6.4 L MONOCYTE % 7.9 EOSINOPHIL % 0.4 BASOPHIL % 0.3 NEUTROPHIL # 11.14 H LYMPHOCYTE # 0.85 L MONOCYTE # 1.04 H EOSINOPHIL # 0.05 BASOPHIL # 0.04 BASIC METABOLIC PANEL (07/28/23 14:35) SODIUM 138 POTASSIUM 3.9 CHLORIDE 105 CARBON DIOXIDE 23 GLUCOSE 98 BLOOD UREA NITROGEN 10 GLOMERULAR FILTRATION RATE >=60 max estimate CREATININE 0.90 CALCIUM 8.8 PHOS (07/28/23 14:35) PHOSPHOROUS 4.7 PTT (07/28/23 07:06) THROMBOPLASTIN TIME PARTIAL 44.8 H FIB (07/28/23 07:06) FIBRINOGEN 510 H PROTHROMBIN TIME (07/28/23 07:06) PROTHROMBIN TIME PATIENT 12.2 INTERNATIONAL NORMAL RATIO 1.09 -- QUALITY -- -MEDICATIONS- - I attest that the foregoing medication list in the medical record is true, accurate, and complete to the best of my knowledge. -- ATTESTATION -- TIME SPENT ON PATIENT CARE: - Critical Care: time spent apart from any procedure 48 minutes Patient was critically ill due to: Cardiogenic shock requiring Impella support, acute hypoxic respiratory failure, coronary artery disease. My treatment and management were: discussed on ICU multi-disciplinary rounds with nursing, pharmacy, respiratory therapy, case management and consultants including cardiology regarding management of cardiogenic shock requiring Impella support, and CAD requiring PCI. CARE ACTIVITIES / CARE COORDINATION: - I have reviewed the history and repeated the carias elements - I have seen and examined this patient - I have reviewed the progress in the clinical course since the last examination - I have discussed the patient's condition with other members of the care team Signed in PatientKeeper by Sherrie Stein MD on 07/29/23 at 10:38 at 1038 ATTENTION *EDITS and/or ADDENDA must be made in Patient Keeper for this note. * * Edits and ammendments created in [facility] are not visible * * in Patient Keeper or the legal medical record ([facility]). * [facility] #: [id number] END OF REPORT [facility] 2023-07-28 21:44:00 [id number] [place] [address] PATIENT NAME: KOTA MONTES ADMIT DATE: 07/26/23 ACCOUNT NO: [id number] ROOM NO: [id number] AGE: 62 REPORT TYPE: eECHOCARDIOGRAM REPORT SEX: M ADMITTING PHYSICIAN: Keenan Kumari MD ATTENDING PHYSICIAN: Keenan Kumari MD *[facility]* [address] [place] [address] Transthoracic Echocardiogram Patient: Kota Montes Study Date: 07/26/2023 BP: URN: [id number] Location: : 1960 Age: 62 Gender: M Height: 68 in / 172.7 cm Weight: 165 lb / 74.8 kg BMI/BSA: 25.1 kg/m 2 / 1.9 m 2 *Ordering Physician: * Rochelle Powell *Interpreting Physician: * Kurtis Lynch M.D. *Boat Washer: * Alma Lara Indications: SOB. Study data: Transthoracic echocardiogram. Complete 2D, complete spectral Doppler, and color Doppler. Location: Bedside. Patient room number: ER6. Findings Left ventricle: The cavity size is severely dilated. Wall thickness is normal. Systolic function is severely reduced. The estimated ejection fraction is <20%. Regional wall motion abnormalities: Hypokinesis of the anterior wall. Grade III diastolic dysfunction. Right ventricle: The cavity size is normal. Systolic function is normal. Left atrium: The atrium is mildly dilated. Right atrium: The atrium is normal in size. Aorta: PATIENT NAME: KOTA MONTES Aortic root: The root is normal-sized. Aortic valve: The valve is trileaflet. The leaflets are mildly calcified. There is no evidence of stenosis. There is mild regurgitation. Mitral valve: The valve is structurally normal. There is no evidence of stenosis. There is mild to moderate regurgitation. Tricuspid valve: The valve is structurally normal. There is mild regurgitation. Pulmonic valve: The valve is structurally normal. There is mild regurgitation. Pericardium: There is no pericardial effusion. Pulmonary arteries: The main pulmonary artery is normal-sized. Systemic veins: Inferior vena cava: The IVC is normal-sized. Measurements Left ventricle Value Ref 06/04/2023 JUSTIN, LAX 5.1 cm 4.2 - 5.8 5.0 ESD, LAX 4.3 cm 2.5 - 4.0 3.4 FS, LAX 15 % 31 JUSTIN major ax, A2C 8.3 cm --------- 8.2 ESD major ax, A2C 7.9 cm --------- 7.0 IVS, ED 1.3 cm 0.6 - 1.0 1.1 ESD 4.3 cm 2.5 - 4.0 3.4 FS 15 % 31 PW, ED 1.0 cm 0.6 - 1.0 1.1 IVS/PW, ED 1.23 --------- 0.94 EF 32 % 52 - 72 59 EF, MM on 2D Teich. 32 % >=55 59 E', lat candice, TDI 10.9 cm/sec >=10.0 7.4 E/e', lat candice, TDI 13 <=13 11 E', med candice, TDI 2.7 cm/sec >=7.0 5.1 E/e', med candice, TDI 53 --------- 16 E', avg, TDI 6.8 cm/sec --------- 6.3 E/e', avg, TDI 21 <=14 13 LVOT Value Ref 06/04/2023 Diam, S 2.09 cm --------- 1.89 Area 3.4 cm 2 --------- 2.8 Peak latanya, S 0.93 m/sec --------- 1.03 Mean latanya, S 0.62 m/sec --------- 0.63 VTI, S 12.5 cm --------- 19.7 Peak grad, S 3 mm Hg --------- 4 Mean grad, S 2 mm Hg --------- 2 SV 43 ml --------- 55 SV/bsa 23 ml/m 2 --------- 27 Right ventricle Value Ref 06/04/2023 Pressure, S 60 mm Hg --------- Left atrium Value Ref 06/04/2023 LA ID 4.2 cm --------- 4.0 AP dim, ES 4.2 cm 3.0 - 4.0 4.0 PATIENT NAME: KOTA MONTES AP dim ES, LAX 4.2 cm 3.0 - 4.0 4.0 SI dim ES, LAX 4.2 cm --------- 4.0 LA/Ao root ratio 1.17 --------- 1.06 AP dim, ES MM 4.2 cm 3.0 - 4.0 4.0 LA/Ao root ratio, MM 1 --------- 1 Right atrium Value Ref 06/04/2023 Area, ES 18 cm 2 10 - 18 16 Area, ES, A4C 18 cm 2 10 - 18 16 Aortic valve Value Ref 06/04/2023 Peak v, S 1 m/sec --------- 1.8 Mean v, S 0.67 m/sec --------- 1.05 VTI, S 11.4 cm --------- 36.2 Mean grad, S 2 mm Hg --------- 5 Peak grad, S 4.1 mm Hg --------- 13.2 LVOT/AV, VTI ratio 1.1 --------- 0.55 SUKHJINDER, VTI 3.80 cm 2 --------- 1.52 LVOT/AV, Vpeak ratio 0.92 --------- 0.57 SUKHJINDER, Vmax 3.17 cm 2 --------- 1.59 Mitral valve Value Ref 06/04/2023 Mean v, D 0.95 m/sec --------- 0.45 Peak E 0.07 m/sec --------- 0.06 Peak A 0.01 m/sec --------- 0.79 VTI leaflet coapt 16.8 cm --------- 22.6 MiV/LVOT VTI 1.3 --------- 1.1 Decel time 98 ms --------- 166 PHT 16 ms --------- 91 Mean grad, D 4 mm Hg --------- 1 Peak grad, D 9.2 mm Hg --------- 2.9 Peak E/A ratio 185.75 --------- 1.04 MVA, PHT 13.6 cm 2 --------- 2.4 Tricuspid valve Value Ref 06/04/2023 TR peak v 3.4 m/sec <=2.8 Peak RV-RA grad, S 45 mm Hg --------- Aortic root Value Ref 06/04/2023 Root diam 3.6 cm 2.6 - 4.1 3.8 Root diam, ED MM 4.2 cm --------- 4.0 Ascending aorta Value Ref 06/04/2023 AAo AP diam, S 3.6 cm --------- 3.9 Pulmonary artery Value Ref 06/04/2023 Pressure, S 57.8 mm Hg --------- Systemic veins Value Ref 06/04/2023 Estimated CVP 15 mm Hg --------- Conclusions PATIENT NAME: KOTA MONTES Summary: 1. Left ventricle: The cavity size is severely dilated. Wall thickness is normal. Systolic function is severely reduced. The estimated ejection fraction is <20%. Hypokinesis of the anterior wall. Grade III diastolic dysfunction. 2. Left atrium: The atrium is mildly dilated. 3. Mitral valve: There is mild to moderate regurgitation. Electronically signed by Kurtis Lynch M.D. 07/28/2023 21:43 at 2144 PATIENT NAME: KOTA MONTES [facility] 2023-07-28 12:04:00 [facility] ([facility]) Cardiology Progress Notes REPORT #: [id number] REPORT STATUS: Signed DATE: 07/28/23 TIME: 1204 PATIENT: KOTA MONTES UNIT #: [id number] ROOM #: P.0409 BED: A : 61 AGE: 62 SEX: M ATTEND: Keenan Kumari MD ADM AUTHOR: Liu Patricia DO [facility] ATTENTION *EDITS and/or ADDENDA must be made in Patient Keeper for this note. * * Edits and ammendments created in [employer] are not visible * * in Patient Keeper or the legal medical record ([facility]). * -- CO-SIGNATURE -- COMMENTS: I have personally seen and examined the patient independently, and reviewed the patient's history, exam, and all cardiac and laboratory data on 07/28/23. I agree with the history, physical, and the assessment and plan as outlined by Dr. Patricia, Cardiovascular Fellow. Signed in PatientKeeper by AUSTIN SEGAL MD on 08/25/23 at 10:50 -- ASSESSMENT AND PLAN -- GENERAL ASSESSMENT: 62 y/o M with HTN, HLD, CAD and NM s/p PCI 2005, 06/2022, 12/24/2022, S/P CABG x 2 BOGGS to LAD and SVG to OM (Dr. Pike) in 06/13/2023, Hx of alcohol abuse, and nicotine use who presented to ER by EMS c/o SOB and chest pain, with EKG concerning for acute NM. I evaluated the patient in the ER he reports OSB started yesterday, progressive and c/o chest pain since 12:30 pm today, continuous, mov=derate to severe, no radiation, heaviness, decreased with pain medication, at rest, no specific exacerbating factors, and associated with SOB. No palpitations, lightheadedness, no LOC, and no sweating. The patient was brought to ER, vitals were normal, O2 in mid 90s on RA. The patient refuses to take nitro saying it does not help him, EMS gave him ASA 325 and fentanyl 100 mcg IV. In ER, STEMI was activated. The patent was evaluated emergently in ER, no STEMI criteria per ECG. While in the ER, the patient developed acute respiratory distress, O2 desaturation, requiringO2 via NR. Stat echo showed LV EF <20%. Echo 06/2023: Estimated EF 30-34% 07/25: Trop 51.2 BNP: 1640 CXR: CHF with mild pulmonary edema EKG: L BB, No criteria st elevation Dx: # Cardiogenic shock # Acue decompensated HF (HFrEF) # Acute pulmonary edema # Acute hypoxemic respiratory failure, on O2 via NRB # Hx of CAD, s/o CABG x2 06/[address] Pike as above # Lactic acidosis # HTN # HLD Plan: - The patient was taken emergently to laboratory analyst. Impella was inserted (flow 3.4) - The patient had to be intubated and be on invasive mechanical ventilation. - S/P LHC: paten grafts (BOGGS to LAD and sVG to OM), mid and distal RCA intent stenosis s/p PCIs - Continue hemodynamic with MCS/Imeplla and inotropic support, monitor perfusion studies. Plan for weaning impella. Plan for pertuaneous removal of impella when ready. - DAPT with ASA and Plavix, high intensity statin - Repeat Echo: EF 30 to 34%, moderate diffuse hypokinesis, grade 1 DD, RV systolic function moderately reduced, mild to moderate AR. - Continue therapeutic anticoagulation with heparin - Continue diuresis with bumex gtt - ICU level of care. - Discussed with . -- SUBJECTIVE -- CHIEF COMPLAINT: Seen and examined the patient at bedside. No acute events overnight. On Impella P3. On Bumex gtt 0.25. -REVIEW OF SYSTEMS- COMMENT: 10 point ROS negative unless noted. -- OBJECTIVE -- VITALS (07/26 12:04 - 07/27 12:04): Temperature F: 98.4 (98.3 - 98.8) Temperature source: Oral Pulse Rate 101 (81 - 109) Respiratory rate: 16 (7 - 26) Blood pressure: 87/57 (13/2 - 147/75) Blood pressure source: Arterial I/Os (07/26 07:00 - 07/27 07:00): Net 1,835.00 Intake 4,435.00 Output 2,600 -EXAM- GENERAL: Well developed, well nourished, in no apparent distress. HEAD: Normocephalic, atraumatic. EYES: PERRL, conjunctiva and sclera clear, without nystagmus, lids normal. EARS: Grossly normal hearing. NOSE: No deformity, no discharge, no inflammation, no lesions. MOUTH: Oropharynx without deformities or lesions, normal mucosa. NECK: Supple. No JVD. Trachea midline. CHEST: Surgical scar noted LUNGS: Clear bilaterally with normal respiratory effort. no wheezes HEART: Regular rate and rhythm, normal S1, S2, no murmurs, no rubs, no gallops, no clicks. ABDOMEN: Soft, non-tender, no organomegaly, no masses noted. MUSCULOSKELETAL: No deformity, joint ROM grossly normal. EXTREMITIES: No cyanosis, no edema. NEUROLOGICAL: Aox3. No focal deficits. PULSES: Pulses normal in all extremities. SKIN: Intact without significant lesions, or rashes. -- DATA -- MEDICATIONS MAGNESIUM SULFATE 2 GM IV ASDIR (PRN) ESCITALOPRAM 20 MG PO DAILY ACETAMINOPHEN 650 MG PO Q6H PRN DOXYCYCLINE HYCLATE with/in SODIUM CHLORIDE 100 mL BAG 100 MG IV Q12HR FOLIC ACID 1 MG PO DAILY SODIUM CHLORIDE 0.9% 1000 ML IV .Q24H [facility]ARM[facility]Y TO MONITOR 1 EACH IV ASDIR MAGNESIUM SULFATE 4 G IV ASDIR (PRN) HYDROcodone BITARTRATE/APAP 1 TAB PO Q6H PRN polyethylene glycoL 3350 1 PKT PO DAILY ASPIRIN 81 MG PO DAILY MUPIROCIN 1 APPLIC NASAL BID TICAGRELOR 90 MG PO Q12HR SOD BIPHOS/POT PHOSPHATE 2 PKT PO ASDIR PRN PREGABALIN 50 MG PO BID HEPARIN/SOD CHLOR 0.45% 50183 UNITS IV TITRATE DOCUSATE SODIUM 200 MG FEED-TUBE DAILY POTASSIUM CHLORIDE 20 MEQ PO ASDIR PRN (Held) METOPROLOL TARTRATE 12.5 MG PO BID ATORVASTATIN CALCIUM 80 MG PO BEDTIME NICOTINE 21 MG TRANSDERM DAILY THIAMINE HCL 100 MG PO DAILY (Held) traZODone HCL 100 MG PO BEDTIME POTASSIUM CHLORIDE IN WATER 10 MEQ IV ASDIR (PRN) ONDANSETRON HCL/PF 4 MG IV Q4H PRN LORazepam 1 MG IV Q4H PRN dexmedeTOMIDine in 0.9 % NaCL 400 MCG IV TITRATE morphine SULFATE 2 MG IV Q4H PRN SODIUM PHOSPHATE with/in SODIUM CHLORIDE 0.9% 20 MM IV ASDIR (PRN) methocarbamoL 1000 MG PO TID PANTOPRAZOLE with/in SODIUM CHLORIDE 0.9% 40 MG IV DAILY GLUCAGON 1 MG IM ASDIR PRN SODIUM CHLORIDE 100 mL BAG with/in BUMETANIDE 60 ML IV .Q10H CALCIUM GLUC IN NACL, ISO-OSM 2 GM IV ASDIR (PRN) bisacodyL 10 MG RECTAL DAILY PRN SODIUM PHOSPHATE with/in SODIUM CHLORIDE 0.9% 30 MM IV ASDIR (PRN) propofoL 1000 MG IV TITRATE INSULIN LISPRO 0 UNITS SUBQ Q6HR DEXTROSE 50%-WATER 25 ML IV ASDIR PRN fentaNYL 1000 MCG IV TITRATE SODIUM BICARBONATE 8.4% with/in DEXTROSE 5%-WATER 25 MEQ MISC ASDIR LABS PTT (07/28/23 07:06) THROMBOPLASTIN TIME PARTIAL 44.8 H FIB (07/28/23 07:06) FIBRINOGEN 510 H PROTHROMBIN TIME (07/28/23 07:06) PROTHROMBIN TIME PATIENT 12.2 INTERNATIONAL NORMAL RATIO 1.09 TRIG (07/28/23 04:50) TRIGLYCERIDES 163 H COMPREHENSIVE METABOLIC PANEL (07/28/23 04:50) SODIUM 139 POTASSIUM 4.2 CHLORIDE 106 CARBON DIOXIDE 24 GLUCOSE 96 BLOOD UREA NITROGEN 11 GLOMERULAR FILTRATION RATE >=60 max estimate CREATININE 0.80 TOTAL PROTEIN 5.3 L ALBUMIN 3.6 CALCIUM 8.0 L BILIRUBIN TOTAL 0.5 SGOT/AST 26 SGPT/ALT 11 ALKALINE PHOSPHATASE 69.0 TROPI (07/28/23 04:50) TROPONIN-I 807.9 *H LDH (07/28/23 04:50) LACTIC DEHYDROGENASE(LDH) 437 H MAG (07/28/23 04:50) MAGNESIUM 1.8 PHOS (07/28/23 04:50) PHOSPHOROUS 4.7 CBC W/AUTO DIFF (07/28/23 04:50) WHITE BLOOD CELL 10.6 RED BLOOD CELL 3.17 L HEMOGLOBIN 10.1D L D L HEMATOCRIT 31.4L L MEAN CELL VOLUME 99.1 D H MEAN CELL HGB 31.9 H MEAN CELL HGB CONCENTRATION 32.2 L RED CELL DISTRIBUTION WIDTH 13.8 PLATELET COUNT 207 MEAN PLATELET VOLUME 10.0 NEUTROPHIL % 74.5 LYMPHOCYTE % 14.5 L MONOCYTE % 8.7 EOSINOPHIL % 1.2 BASOPHIL % 0.6 NEUTROPHIL # 7.93 H LYMPHOCYTE # 1.54 MONOCYTE # 0.92 H EOSINOPHIL # 0.13 BASOPHIL # 0.06 PROTHROMBIN TIME (07/28/23 00:49) PROTHROMBIN TIME PATIENT 12.5 INTERNATIONAL NORMAL RATIO 1.12 H BASIC METABOLIC PANEL (07/28/23 00:49) SODIUM 138 POTASSIUM 4.1 CHLORIDE 107 CARBON DIOXIDE 23 GLUCOSE 96 BLOOD UREA NITROGEN 11 GLOMERULAR FILTRATION RATE >=60 max estimate CREATININE 0.80 CALCIUM 8.0 L PTT (07/28/23 00:49) THROMBOPLASTIN TIME PARTIAL 44.9 H PHOS (07/28/23 00:49) PHOSPHOROUS 4.2 MAG (07/28/23 00:49) MAGNESIUM 1.9 BLOOD GAS W/ELECTROLYTES (07/27/23 23:05) ARTERIAL BLOOD GAS PH 7.42 ARTERIAL BLOOD GAS PCO2 34.8 L ARTERIAL BLOOD GAS PO2 81.3 BICARBONATE TOTAL HCO3 22.2 BASE EXCESS -1.7 ABG O2 SATURATION 95.8 ARTERIAL FIO2 60.0 ABG VENT MODE Ventilator ALLENS TEST No SODIUM (POC) 133 L POTASSIUM (POC) 3.75 CHLORIDE (ARTERIAL) 103 GLUCOSE 88 IONIZED CALCIUM 1.19 POC LACTIC ACID 1.07 TOTAL HGB 10.7 L OXYHEMOGLOBIN 95.6 CARBOXYHEMOGLOBIN 0.2 METHEMOGLOBIN <0.8 HHb 4.2 TCO2 ARTERIAL 23.3 L BLOOD GAS W/ELECTROLYTES (07/27/23 21:54) ARTERIAL BLOOD GAS PH 7.44 ARTERIAL BLOOD GAS PCO2 30.7 L ARTERIAL BLOOD GAS PO2 76.8 L BICARBONATE TOTAL HCO3 20.4 L BASE EXCESS -2.9 L ABG O2 SATURATION 95.5 ARTERIAL FIO2 60.0 ABG VENT MODE Ventilator ALLENS TEST NOT APPLICABLE SODIUM (POC) 131 L POTASSIUM (POC) 3.65 CHLORIDE (ARTERIAL) 103 GLUCOSE 83 IONIZED CALCIUM 1.19 POC LACTIC ACID 0.99 TOTAL HGB 10.5 D L CARBOXYHEMOGLOBIN 0.2 METHEMOGLOBIN <0.8 HHb 4.5 TCO2 ARTERIAL 21.4 L PTT (07/27/23 18:03) THROMBOPLASTIN TIME PARTIAL 41.6 D H PHOS (07/27/23 16:56) PHOSPHOROUS 2.8 MAG (07/27/23 16:56) MAGNESIUM 1.9 BASIC METABOLIC PANEL (07/27/23 16:56) SODIUM 136 POTASSIUM 3.4L L CHLORIDE 106 CARBON DIOXIDE 23 GLUCOSE 94 BLOOD UREA NITROGEN 10 GLOMERULAR FILTRATION RATE >=60 max estimate CREATININE 0.90 CALCIUM 7.8 L Signed in PatientKeeper by Liu Patricia on 07/28/23 at 12:08 Cosigned by AUSTIN SEGAL MD on 08/25/23 at 10:50 at 1050 at 1050 ATTENTION *EDITS and/or ADDENDA must be made in Patient Keeper for this note. * * Edits and ammendments created in [employer] are not visible * * in Patient Keeper or the legal medical record ([facility]). * RPT #: [id number] END OF REPORT [facility] 2023-07-28 07:25:00 [facility] ([facility]) Hospitalist Progress Note REPORT #: [id number] REPORT STATUS: Signed DATE: 07/28/23 TIME: 724 PATIENT: KOTA MONTES UNIT #: [id number] ROOM #: [id number] BED: 1 : 61 AGE: 62 SEX: M ATTEND: Keenan Kumari MD ADM AUTHOR: Keenan Kumari MD ATTENTION *EDITS and/or ADDENDA must be made in Patient Keeper for this note. * * Edits and ammendments created in [employer] are not visible * * in Patient Keeper or the legal medical record ([facility]). * -- ASSESSMENT AND PLAN -- PROBLEMS: 1: Cardiogenic shock 2: Coronary artery disease 3: Chest pain, unspecified type 4: Non-ST elevation (NSTEMI) myocardial infarction 5: Alcohol abuse with unspecified alcohol-induced disorder 6: Unstable angina 7: Cervicalgia 8: Alcohol abuse 9: Heart failure, unspecified 10: Chronic disease anemia 11: Hypertension, essential 12: Acute on chronic systolic heart failure ADDITIONAL COMMENTS: Cardio consulted plan to take to procedure home meds ICU supportive care 07/26 - post impella implant now in icu with goals of stabilization and weaning and removal eventually per cardiology. started on bumex gtt for heart failure. UDS and close monitoring Keenan Kumari MD Internal Medicine -- SUBJECTIVE -- PATIENT NARRATIVE: no acute changes remains in icu -REVIEW OF SYSTEMS- COMMENT: 10 point ROS negative unless noted. -- OBJECTIVE -- VITALS (07/27 09:33 - 07/28 09:33): Temperature F: 97.8 (97.8 - 98.9) Temperature source: Axillary Pulse Rate 67 (62 - 109) Respiratory rate: 14 (12 - 30) Blood pressure: 102/48 (78/46 - 128/64) Blood pressure source: Arterial I/Os (07/27 07:00 - 07/28 07:00): Net -2,630.60 Intake 3,769.40 Output 6,400 -EXAM- GENERAL: Well developed, well nourished, in no apparent distress. HEAD: Normocephalic, atraumatic. EARS: grossly normal hearing. NOSE: No deformity, no discharge MOUTH: Oropharynx without deformities or lesions, normal mucosa. CHEST: sternotomy site c/d/i, chest tubes and TPW noted LUNGS: Clear bilaterally with normal respiratory effort. HEART: Regular rate and rhythm, normal S1, S2, no murmurs EXTREMITIES: No clubbing, no cyanosis, no edema. NEUROLOGICAL: No focal deficits, cranial nerves II-XII grossly intact PSYCHIATRIC: Alert and oriented to time, person, place. -- DATA -- MEDICATIONS MAGNESIUM SULFATE 2 GM IV ASDIR (PRN) ESCITALOPRAM 20 MG PO DAILY ACETAMINOPHEN 650 MG PO Q6H PRN DOXYCYCLINE HYCLATE with/in SODIUM CHLORIDE 100 mL BAG 100 MG IV Q12HR FOLIC ACID 1 MG PO DAILY SODIUM CHLORIDE 0.9% 1000 ML IV .Q24H [facility] TO MONITOR 1 EACH IV ASDIR MAGNESIUM SULFATE 4 G IV ASDIR (PRN) polyethylene glycoL 3350 1 PKT PO DAILY ASPIRIN 81 MG PO DAILY MUPIROCIN 1 APPLIC NASAL BID TICAGRELOR 90 MG PO Q12HR SOD BIPHOS/POT PHOSPHATE 2 PKT PO ASDIR PRN PREGABALIN 50 MG PO BID HEPARIN/SOD CHLOR 0.45% 85131 UNITS IV TITRATE DOCUSATE SODIUM 200 MG FEED-TUBE DAILY POTASSIUM CHLORIDE 20 MEQ PO ASDIR PRN (Held) METOPROLOL TARTRATE 12.5 MG PO BID ATORVASTATIN CALCIUM 80 MG PO BEDTIME NICOTINE 21 MG TRANSDERM DAILY THIAMINE HCL 100 MG PO DAILY POTASSIUM CHLORIDE IN WATER 10 MEQ IV ASDIR (PRN) ONDANSETRON HCL/PF 4 MG IV Q4H PRN LORazepam 1 MG IV Q4H PRN dexmedeTOMIDine in 0.9 % NaCL 400 MCG IV TITRATE SODIUM PHOSPHATE with/in SODIUM CHLORIDE 0.9% 20 MM IV ASDIR (PRN) PANTOPRAZOLE with/in SODIUM CHLORIDE 0.9% 40 MG IV DAILY GLUCAGON 1 MG IM ASDIR PRN SODIUM CHLORIDE 100 mL BAG with/in BUMETANIDE 60 ML IV .Q10H CALCIUM GLUC IN NACL, ISO-OSM 2 GM IV ASDIR (PRN) bisacodyL 10 MG RECTAL DAILY PRN SODIUM PHOSPHATE with/in SODIUM CHLORIDE 0.9% 30 MM IV ASDIR (PRN) propofoL 1000 MG IV TITRATE INSULIN LISPRO 0 UNITS SUBQ Q6HR DEXTROSE 50%-WATER 25 ML IV ASDIR PRN fentaNYL 1000 MCG IV TITRATE SODIUM BICARBONATE 8.4% with/in DEXTROSE 5%-WATER 25 MEQ MISC ASDIR LABS PHOS (07/29/23 08:32) PHOSPHOROUS 4.6 MAG (07/29/23 08:32) MAGNESIUM 2.0 BASIC METABOLIC PANEL (07/29/23 07:51) SODIUM 134L L POTASSIUM 3.8 CHLORIDE 99 CARBON DIOXIDE 26 GLUCOSE 132H H BLOOD UREA NITROGEN 9 GLOMERULAR FILTRATION RATE >=60 max estimate CREATININE 0.80 CALCIUM 9.0 PTT (07/29/23 07:51) THROMBOPLASTIN TIME PARTIAL 75.8 H BLOOD GAS W/ELECTROLYTES (07/29/23 06:40) ARTERIAL BLOOD GAS PH 7.42 ARTERIAL BLOOD GAS PCO2 37.5 ARTERIAL BLOOD GAS PO2 87.9 BICARBONATE TOTAL HCO3 23.6 BASE EXCESS -0.7 ABG O2 SATURATION 96.6 ARTERIAL FIO2 80.0 ABG VENT MODE Ventilator ALLENS TEST No SODIUM (POC) 132 L POTASSIUM (POC) 3.76 CHLORIDE (ARTERIAL) 96 L GLUCOSE 130 H IONIZED CALCIUM 1.21 POC LACTIC ACID 1.20 TOTAL HGB 10.9 L OXYHEMOGLOBIN 96.3 CARBOXYHEMOGLOBIN 0.3 METHEMOGLOBIN <0.8 HHb 3.4 TCO2 ARTERIAL 24.7 VENOUS BLOOD GAS (07/29/23 04:16) VENOUS BLOOD GAS PH 7.38 VENOUS BLOOD GAS PCO2 47.2 VENOUS BLOOD GAS PO2 35.7 VBG HCO3 27 VBG BASE EXCESS 1.6 VENOUS BLOOD GAS O2 SAT 67 VENOUS BLOOD GAS TYPE Venous VENOUS BLOOD GAS FIO2 80.0 VBG VENT MODE Ventilator MAG (07/29/23 04:14) MAGNESIUM 1.7 K (07/29/23 04:14) POTASSIUM 4.7 D VENOUS BLOOD GAS (07/29/23 00:25) VENOUS BLOOD GAS PH 7.42 VENOUS BLOOD GAS PCO2 39.5 VENOUS BLOOD GAS PO2 33.5 VBG HCO3 25 VBG BASE EXCESS 0.5 VENOUS BLOOD GAS O2 SAT 69 VENOUS BLOOD GAS TYPE Venous VENOUS BLOOD GAS FIO2 80.0 VBG VENT MODE Ventilator LDH (07/29/23 00:12) LACTIC DEHYDROGENASE(LDH) 351 H MAG (07/29/23 00:12) MAGNESIUM 2.0 PHOS (07/29/23 00:12) PHOSPHOROUS 3.9 TROPI (07/29/23 00:12) TROPONIN-I 551.0 *H PROTHROMBIN TIME (07/29/23 00:12) PROTHROMBIN TIME PATIENT 13.2 H INTERNATIONAL NORMAL RATIO 1.18 H CBC W/AUTO DIFF (07/29/23 00:12) WHITE BLOOD CELL 10.8 RED BLOOD CELL 2.97 L HEMOGLOBIN 9.6L L HEMATOCRIT 29.0L L MEAN CELL VOLUME 97.6 H MEAN CELL HGB 32.3 H MEAN CELL HGB CONCENTRATION 33.1 RED CELL DISTRIBUTION WIDTH 13.6 PLATELET COUNT 158 MEAN PLATELET VOLUME 9.9 NEUTROPHIL % 74.0 LYMPHOCYTE % 14.8 L MONOCYTE % 9.2 EOSINOPHIL % 1.0 BASOPHIL % 0.4 NEUTROPHIL # 7.99 H LYMPHOCYTE # 1.60 MONOCYTE # 0.99 H EOSINOPHIL # 0.11 BASOPHIL # 0.04 PTT (07/29/23 00:12) THROMBOPLASTIN TIME PARTIAL 71.4 H FIB (07/29/23 00:12) FIBRINOGEN 688 H COMPREHENSIVE METABOLIC PANEL (07/29/23 00:12) SODIUM 136 POTASSIUM 3.5 CHLORIDE 101 CARBON DIOXIDE 24 GLUCOSE 106 BLOOD UREA NITROGEN 10 GLOMERULAR FILTRATION RATE >=60 max estimate CREATININE 0.80 TOTAL PROTEIN 6.4 ALBUMIN 4.3 CALCIUM 9.7 BILIRUBIN TOTAL 1.0 SGOT/AST 19 SGPT/ALT < 7 L ALKALINE PHOSPHATASE 67.0 BLOOD GAS W/ELECTROLYTES (07/28/23 22:20) ARTERIAL BLOOD GAS PH 7.47 H ARTERIAL BLOOD GAS PCO2 31.1 L ARTERIAL BLOOD GAS PO2 86.3 BICARBONATE TOTAL HCO3 22.2 BASE EXCESS -0.8 ABG O2 SATURATION 97.1 ARTERIAL FIO2 80.0 ABG VENT MODE Ventilator ALLENS TEST No SODIUM (POC) 133 L POTASSIUM (POC) 3.53 L CHLORIDE (ARTERIAL) 99 GLUCOSE 105 H IONIZED CALCIUM 1.19 POC LACTIC ACID 1.23 TOTAL HGB 10.8 L OXYHEMOGLOBIN 96.8 CARBOXYHEMOGLOBIN 0.3 METHEMOGLOBIN <0.8 HHb 2.9 TCO2 ARTERIAL 23.1 L MAG (07/28/23 14:35) MAGNESIUM 1.8 PROTHROMBIN TIME (07/28/23 14:35) PROTHROMBIN TIME PATIENT 12.6 INTERNATIONAL NORMAL RATIO 1.13 H FIB (07/28/23 14:35) FIBRINOGEN 535 H PTT (07/28/23 14:35) THROMBOPLASTIN TIME PARTIAL 63.1 D H PHOS (07/28/23 14:35) PHOSPHOROUS 4.7 CBC W/AUTO DIFF (07/28/23 14:35) WHITE BLOOD CELL 13.2H H RED BLOOD CELL 2.90 L HEMOGLOBIN 9.4L L HEMATOCRIT 28.6L L MEAN CELL VOLUME 98.6 H MEAN CELL HGB 32.4 H MEAN CELL HGB CONCENTRATION 32.9 L RED CELL DISTRIBUTION WIDTH 13.8 PLATELET COUNT 165 MEAN PLATELET VOLUME 9.5 NEUTROPHIL % 84.5 H LYMPHOCYTE % 6.4 L MONOCYTE % 7.9 EOSINOPHIL % 0.4 BASOPHIL % 0.3 NEUTROPHIL # 11.14 H LYMPHOCYTE # 0.85 L MONOCYTE # 1.04 H EOSINOPHIL # 0.05 BASOPHIL # 0.04 BASIC METABOLIC PANEL (07/28/23 14:35) SODIUM 138 POTASSIUM 3.9 CHLORIDE 105 CARBON DIOXIDE 23 GLUCOSE 98 BLOOD UREA NITROGEN 10 GLOMERULAR FILTRATION RATE >=60 max estimate CREATININE 0.90 CALCIUM 8.8 Signed in PatientKeeper by Keenan Kumari MD on 07/29/23 at 09:34 at 0934 ATTENTION *EDITS and/or ADDENDA must be made in Patient Keeper for this note. * * Edits and ammendments created in [facility] are not visible * * in Patient Keeper or the legal medical record ([facility]). * RPT #: [id number] END OF REPORT [facility] 2023-07-28 06:04:00 [facility] ([facility]) Intensive Care Progress Note REPORT #: [id number] REPORT STATUS: Signed DATE: 07/28/23 TIME: 06 PATIENT: KOTA MONTES UNIT #: [id number] ROOM #: [id number] BED: 1 : 61 AGE: 62 SEX: M ATTEND: Keenan Kumari MD ADM AUTHOR: Sherrie Stein MD ATTENTION *EDITS and/or ADDENDA must be made in Patient Keeper for this note. * * Edits and ammendments created in [facility] are not visible * * in Patient Keeper or the legal medical record ([facility]). * -- ASSESSMENT AND PLAN -- HOSPITAL COURSE TO DATE: Patient is a 62-year-old male with PMH notable for CAD s/p 2V CAB (06/25) and PCI ('06, 06/24, 12/24), ischemic cardiomyopathy (EF 30-34%), HTN, HLD, h/o ETOH abuse, tobacco abuse, anxiety/depression, and medical non-compliance initially presenting to [facility] with a chief complaint of chest pain and shortness of breath on 07/25. Patient admitted to CVICU for management of acute cardiogenic shock requiring Impella support. 07/25: s/p C with PCI x1 to RCA and Impella CP placement, intubated GENERAL ASSESSMENT: Plan: Pain/Sedation -Concern for Impella dislodgement due to agitation, maintain goal RASS of -2 to -3 while intubated -Continue propofol/fentanyl gtts Neuro/Psych #Agitation/Delirium #Anxiety/Depression #H/o ETOH Abuse and Polysubstance Abuse -Awakens when sedation weaned, however agitated/delirious -Known h/o ETOH abuse, monitor closely for symptoms of withdrawal, continue daily thiamine/folate, CIWA protocol if appropriate once off sedation -Continue home Lexapro -Frequent reorientation/redirection, optimize sleep/wake cycle, delirium precautions Respiratory #Acute Hypoxic Respiratory Failure #Acute Pulmonary Edema #Tobacco Abuse -Acute hypoxia 2/2 pulmonary edema in the setting of cardiogenic shock -Continue full vent support, wean as tolerated, goal SpO2 >92% -Serial CXRs/ABGs, CPT, pulmonary hygiene, diuresis to maintain net negative Cardiovascular #Cardiogenic Shock s/p Impella CP Placement #Biventricular Heart Failure #Multi-Vessel CAD s/p PCI to RCA (h/o CAB x2 and prior PCI) -TTE on admission with new biventricular failure, LV EF <10% (previously 30-34%), repeat EF following PCI EF 30-34% -[facility] with patent grafts, LVEDP 38, PCI x1 to RCA -Hemodynamics improved, weaned off inotropes/vasopressors following Impella placement -Continue Impella support (wean from P6 to P4) with HCO3 purge/heparin gtt, monitor for hemolysis -[id number] distal reperfusion catheter in place, neurovascular checks per protocol -Maintain goal MAP >65 -Lactate normalized, SVO2 improved, continue trending -A-line/CVC in place, continue close hemodynamic monitoring, will hold off on PA catheter placement given clinical improvement -DAPT/high-dose statin -Hold GDMT given hypotension, resume as able -Continue diuresis with Bumex gtt to maintain net negative -Cardiology following, recommendations appreciated -If able to tolerate Impella weaning, will consider removal on 07/28 Gastrointestinal -Unable to place post-pyloric enteral tube, continue TFs at 20cc via OGT -SUP, bowel regimen Renal #Volume Overload -Renal function WNL -Maintain Singh for strict I/O -Resume Bumex gtt to maintain net negative -Electrolyte protocol, maintain K >4.0, Phos >3.0, Mg >2.0 Infectious Disease -No evidence of infection at present, monitor fever curve -Continue doxycycline for device ppx Endocrine -SSI PRN, maintain goal BS 140-180 -Hypoglycemia protocol HEME #Acute Blood Loss Anemia -H/H stable, no evidence of bleeding -Continue close monitoring while on therapeutic anticoagulation -Transfuse for goal Hgb >8.0, platelets >10k or 20k with bleeding, and fibrinogen >150 MSK -PT/OT once extubated PPX -DVT: Heparin gtt -GI: PPI QD GOC -Code: FULL per patient (, NOK/surrogate medical decision maker) -Advance Care Planning: None per family Dispo: Continue ICU level care Medications reviewed with ICU pharmacist Patient is critically ill and at risk of imminent life threatening injury or -- SUBJECTIVE -- PATIENT NARRATIVE: Bumex gtt resumed overnight with adequate UOP. BP labile 2/2 sedation. Patient sedated, but becomes agitated when sedation weaned. -- OBJECTIVE -- VITALS (07/26 06:04 - 07/27 06:04): Temperature F: 98.4 (98.0 - 98.8) Temperature source: Oral Pulse Rate 105 (81 - 105) Respiratory rate: 16 (7 - 27) Blood pressure: 109/58 (13/2 - 147/81) Blood pressure source: Arterial I/Os (07/25 07:00 - 07/26 07:00): Net -362.00 Intake 1,103.00 Output 1,465 -- DATA -- MEDICATIONS MAGNESIUM SULFATE 2 GM IV ASDIR (PRN) ESCITALOPRAM 20 MG PO DAILY ACETAMINOPHEN 650 MG PO Q6H PRN FOLIC ACID 1 MG PO DAILY SODIUM CHLORIDE 0.9% 1000 ML IV .Q24H [facility] TO MONITOR 1 EACH IV ASDIR MAGNESIUM SULFATE 4 G IV ASDIR (PRN) HYDROcodone BITARTRATE/APAP 1 TAB PO Q6H PRN polyethylene glycoL 3350 1 PKT PO DAILY ASPIRIN 81 MG PO DAILY MUPIROCIN 1 APPLIC NASAL BID TICAGRELOR 90 MG PO Q12HR SOD BIPHOS/POT PHOSPHATE 2 PKT PO ASDIR PRN PREGABALIN 50 MG PO BID HEPARIN/SOD CHLOR 0.45% 83693 UNITS IV TITRATE POTASSIUM CHLORIDE 20 MEQ PO ASDIR PRN (Held) METOPROLOL TARTRATE 12.5 MG PO BID ATORVASTATIN CALCIUM 80 MG PO BEDTIME NICOTINE 21 MG TRANSDERM DAILY THIAMINE HCL 100 MG PO DAILY (Held) traZODone HCL 100 MG PO BEDTIME MULTIVITAMINS with/in SODIUM CHLORIDE 0.9%, THIAMINE HCL, FOLIC ACID 10 ML IV Q24H POTASSIUM CHLORIDE IN WATER 10 MEQ IV ASDIR (PRN) ONDANSETRON HCL/PF 4 MG IV Q4H PRN LORazepam 1 MG IV Q4H PRN DOCUSATE SODIUM 200 MG PO DAILY morphine SULFATE 2 MG IV Q4H PRN SODIUM PHOSPHATE with/in SODIUM CHLORIDE 0.9% 20 MM IV ASDIR (PRN) methocarbamoL 1000 MG PO TID PANTOPRAZOLE with/in SODIUM CHLORIDE 0.9% 40 MG IV DAILY GLUCAGON 1 MG IM ASDIR PRN SODIUM CHLORIDE 100 mL BAG with/in BUMETANIDE 60 ML IV .Q10H CALCIUM GLUC IN NACL, ISO-OSM 2 GM IV ASDIR (PRN) bisacodyL 10 MG RECTAL DAILY PRN SODIUM PHOSPHATE with/in SODIUM CHLORIDE 0.9% 30 MM IV ASDIR (PRN) propofoL 1000 MG IV TITRATE INSULIN LISPRO 0 UNITS SUBQ Q6HR DEXTROSE 50%-WATER 25 ML IV ASDIR PRN fentaNYL 1000 MCG IV TITRATE SODIUM BICARBONATE 8.4% with/in DEXTROSE 5%-WATER 25 MEQ MISC ASDIR LABS TROPI (07/28/23 04:50) TROPONIN-I 807.9 *H CBC W/AUTO DIFF (07/28/23 04:50) WHITE BLOOD CELL 10.6 RED BLOOD CELL 3.17 L HEMOGLOBIN 10.1D L D L HEMATOCRIT 31.4L L MEAN CELL VOLUME 99.1 D H MEAN CELL HGB 31.9 H MEAN CELL HGB CONCENTRATION 32.2 L RED CELL DISTRIBUTION WIDTH 13.8 PLATELET COUNT 207 MEAN PLATELET VOLUME 10.0 NEUTROPHIL % 74.5 LYMPHOCYTE % 14.5 L MONOCYTE % 8.7 EOSINOPHIL % 1.2 BASOPHIL % 0.6 NEUTROPHIL # 7.93 H LYMPHOCYTE # 1.54 MONOCYTE # 0.92 H EOSINOPHIL # 0.13 BASOPHIL # 0.06 PROTHROMBIN TIME (07/28/23 00:49) PROTHROMBIN TIME PATIENT 12.5 INTERNATIONAL NORMAL RATIO 1.12 H BASIC METABOLIC PANEL (07/28/23 00:49) SODIUM 138 POTASSIUM 4.1 CHLORIDE 107 CARBON DIOXIDE 23 GLUCOSE 96 BLOOD UREA NITROGEN 11 GLOMERULAR FILTRATION RATE >=60 max estimate CREATININE 0.80 CALCIUM 8.0 L PTT (07/28/23 00:49) THROMBOPLASTIN TIME PARTIAL 44.9 H PHOS (07/28/23 00:49) PHOSPHOROUS 4.2 MAG (07/28/23 00:49) MAGNESIUM 1.9 BLOOD GAS W/ELECTROLYTES (07/27/23 23:05) ARTERIAL BLOOD GAS PH 7.42 ARTERIAL BLOOD GAS PCO2 34.8 L ARTERIAL BLOOD GAS PO2 81.3 BICARBONATE TOTAL HCO3 22.2 BASE EXCESS -1.7 ABG O2 SATURATION 95.8 ARTERIAL FIO2 60.0 ABG VENT MODE Ventilator ALLENS TEST No SODIUM (POC) 133 L POTASSIUM (POC) 3.75 CHLORIDE (ARTERIAL) 103 GLUCOSE 88 IONIZED CALCIUM 1.19 POC LACTIC ACID 1.07 TOTAL HGB 10.7 L OXYHEMOGLOBIN 95.6 CARBOXYHEMOGLOBIN 0.2 METHEMOGLOBIN <0.8 HHb 4.2 TCO2 ARTERIAL 23.3 L BLOOD GAS W/ELECTROLYTES (07/27/23 21:54) ARTERIAL BLOOD GAS PH 7.44 ARTERIAL BLOOD GAS PCO2 30.7 L ARTERIAL BLOOD GAS PO2 76.8 L BICARBONATE TOTAL HCO3 20.4 L BASE EXCESS -2.9 L ABG O2 SATURATION 95.5 ARTERIAL FIO2 60.0 ABG VENT MODE Ventilator ALLENS TEST NOT APPLICABLE SODIUM (POC) 131 L POTASSIUM (POC) 3.65 CHLORIDE (ARTERIAL) 103 GLUCOSE 83 IONIZED CALCIUM 1.19 POC LACTIC ACID 0.99 TOTAL HGB 10.5 D L CARBOXYHEMOGLOBIN 0.2 METHEMOGLOBIN <0.8 HHb 4.5 TCO2 ARTERIAL 21.4 L PTT (07/27/23 18:03) THROMBOPLASTIN TIME PARTIAL 41.6 D H PHOS (07/27/23 16:56) PHOSPHOROUS 2.8 MAG (07/27/23 16:56) MAGNESIUM 1.9 BASIC METABOLIC PANEL (07/27/23 16:56) SODIUM 136 POTASSIUM 3.4L L CHLORIDE 106 CARBON DIOXIDE 23 GLUCOSE 94 BLOOD UREA NITROGEN 10 GLOMERULAR FILTRATION RATE >=60 max estimate CREATININE 0.90 CALCIUM 7.8 L GLU BED (07/27/23 11:26) GLUBED 92 DRUGS OF ABUSE SCREEN URINE (07/27/23 09:11) UR COCAINE Negative UR CANABINOIDS Negative UR AMPHETAMINE Negative UR BARBITURATE Negative UR BENZODIAZEPINE Positive A UR OPIATES QUAL Negative UR PHENCYCLIDINE (PCP) Negative MAG (07/27/23 08:42) MAGNESIUM 1.8 BASIC METABOLIC PANEL (07/27/23 08:42) SODIUM 138 POTASSIUM 3.7 CHLORIDE 104 CARBON DIOXIDE 25 GLUCOSE 84 BLOOD UREA NITROGEN 12 GLOMERULAR FILTRATION RATE >=60 max estimate CREATININE 1.10 CALCIUM 8.3 L PHOS (07/27/23 08:42) PHOSPHOROUS 3.5 VENOUS BLOOD GAS (07/27/23 06:23) VENOUS BLOOD GAS PH 7.41 VENOUS BLOOD GAS PCO2 40.0 VENOUS BLOOD GAS PO2 33.2 VBG HCO3 25 VBG BASE EXCESS 0.5 VENOUS BLOOD GAS O2 SAT 64 VENOUS BLOOD GAS TYPE Venous VENOUS BLOOD GAS FIO2 60.0 VBG VENT MODE Ventilator -- QUALITY -- -MEDICATIONS- - I attest that the foregoing medication list in the medical record is true, accurate, and complete to the best of my knowledge. -- ATTESTATION -- TIME SPENT ON PATIENT CARE: - Critical Care: time spent apart from any procedure 49 minutes Patient was critically ill due to: Cardiogenic shock requiring Impella support, acute hypoxic respiratory failure, coronary artery disease. My treatment and management were: discussed on ICU multi-disciplinary rounds with nursing, pharmacy, respiratory therapy, case management and consultants including cardiology regarding management of cardiogenic shock requiring Impella support, and CAD requiring PCI. CARE ACTIVITIES / CARE COORDINATION: - I have reviewed the history and repeated the carias elements - I have seen and examined this patient - I have reviewed the progress in the clinical course since the last examination - I have discussed the patient's condition with other members of the care team Signed in PatientKeeper by Sherrie Stein MD on 07/28/23 at 15:59 at 1559 ATTENTION *EDITS and/or ADDENDA must be made in Patient Keeper for this note. * * Edits and ammendments created in [facility] are not visible * * in Patient Keeper or the legal medical record ([facility]). * RPT #: [id number] END OF REPORT [facility] 2023-07-27 20:38:00 [id number] [place] [address] PATIENT NAME: KOTA MONTES ADMIT DATE: 07/26/23 ACCOUNT NO: [id number] ROOM NO: [id number] AGE: 62 REPORT TYPE: eECHOCARDIOGRAM REPORT SEX: M ADMITTING PHYSICIAN: Keenan Kumari MD ATTENDING PHYSICIAN: Keenan Kumari MD *[facility]* [address] [place] [address] Transthoracic Echocardiogram Patient: Kota Montes Study Date: 07/27/2023 BP: 111 / 66 URN: [id number] Location: : 1960 Age: 62 Gender: M Height: 68 in / 172.7 cm Weight: 165 lb / 74.8 kg BMI/BSA: 25.1 kg/m 2 / 1.9 m 2 *Ordering Physician: * Sherrie Stein *Interpreting Physician: * Austin Segal MD *Boat Washer: * Beatriz Ronquillo Indications: Re-evaluate LV/RV function follwoing PCI. Study data: Transthoracic echocardiogram. Procedure: A transthoracic echocardiogram was performed. Images were obtained using a [employer] [id number] cardiac ultrasound machine. Complete 2D, complete spectral Doppler, and color Doppler. Location: Bedside. Patient status: Inpatient. Patient room number: 313. Study status: Stat. Heart rate: 90 bpm. Findings Left ventricle: The cavity size is normal. Wall thickness is mildly increased. Systolic function is moderately reduced. The estimated ejection fraction is 30-34%. There is moderate diffuse hypokinesis. Grade I diastolic dysfunction. Depth of impella inflow cannula around 2.7 cm from the aortic valve. PATIENT NAME: KOTA MONTES Right ventricle: The cavity size is mildly dilated. Systolic function is moderately reduced. Left atrium: The atrium is mildly dilated. Right atrium: The atrium is mildly dilated. Aorta: Aorta: The aorta is normal-sized. Aortic valve: The leaflets are mildly calcified. There is no evidence of stenosis. There is mild to moderate regurgitation. Mitral valve: The leaflets are normal thickness. There is mild regurgitation. Tricuspid valve: The leaflets are normal thickness. There is trivial regurgitation. Pulmonic valve: The leaflets are normal thickness. There is trivial regurgitation. Pericardium: There is no pericardial effusion. Systemic veins: Inferior vena cava: The IVC is normal-sized. Measurements Left ventricle Value Ref 06/04/2023 JUSTIN, LAX 4.8 cm 4.2 - 5.8 5.0 ESD, LAX 3.9 cm 2.5 - 4.0 3.4 FS, LAX 16 % 31 JUSTIN major ax, A2C 7.8 cm --------- 8.2 ESD major ax, A2C 7.3 cm --------- 7.0 IVS, ED 1.1 cm 0.6 - 1.0 1.1 ESD 3.9 cm 2.5 - 4.0 3.4 FS 16 % 31 PW, ED 1.1 cm 0.6 - 1.0 1.1 IVS/PW, ED 1.02 --------- 0.94 EF 33 % 52 - 72 59 EF, MM on 2D Teich. 33 % >=55 59 E', lat candice, TDI 6.6 cm/sec >=10.0 7.4 E/e', lat candice, TDI 11 <=13 11 E', med candice, TDI 2.9 cm/sec >=7.0 5.1 E/e', med candice, TDI 25 --------- 16 E', avg, TDI 4.8 cm/sec --------- 6.3 E/e', avg, TDI 16 <=14 13 LVOT Value Ref 06/04/2023 Diam, S 2.02 cm --------- 1.89 Area 3.2 cm 2 --------- 2.8 Peak latanya, S 0.9 m/sec --------- 1.03 Mean latanya, S 0.68 m/sec --------- 0.63 VTI, S 14.6 cm --------- 19.7 Peak grad, S 3 mm Hg --------- 4 Mean grad, S 2 mm Hg --------- 2 SV 47 ml --------- 55 SV/bsa 25 ml/m 2 --------- 27 RVOT Value Ref 06/04/2023 Peak v, S 0.63 m/sec --------- PATIENT NAME: KOTA MONTES Peak grad, S 2 mm Hg --------- Left atrium Value Ref 06/04/2023 LA ID 2.9 cm --------- 4.0 AP dim, ES 2.9 cm 3.0 - 4.0 4.0 AP dim ES, LAX 2.9 cm 3.0 - 4.0 4.0 SI dim ES, LAX 2.9 cm --------- 4.0 Vol/bsa, S 30 ml/m 2 16 - 34 30 Vol, ES, 2-p 61 ml --------- 65 Vol/bsa, ES, 2-p 32 ml/m 2 16 - 34 32 LA/Ao root ratio 0.95 --------- 1.06 AP dim, ES MM 2.9 cm 3.0 - 4.0 4.0 LA/Ao root ratio, MM 1 --------- 1 Right atrium Value Ref 06/04/2023 Area, ES 22 cm 2 10 - 18 16 Area, ES, A4C 22 cm 2 10 - 18 16 Aortic valve Value Ref 06/04/2023 Peak v, S 1 m/sec --------- 1.8 Mean v, S 0.78 m/sec --------- 1.05 VTI, S 13.4 cm --------- 36.2 Mean grad, S 3 mm Hg --------- 5 Peak grad, S 4.4 mm Hg --------- 13.2 LVOT/AV, VTI ratio 1.1 --------- 0.55 SUKHJINDER, VTI 3.51 cm 2 --------- 1.52 LVOT/AV, Vpeak ratio 0.86 --------- 0.57 SUKHJINDER, Vmax 2.76 cm 2 --------- 1.59 AR peak v 2.92 m/sec --------- AR decel 300.22 cm/s 2 --------- AR decel time 973 ms --------- AR PHT 282 ms --------- AR peak grad 34 mm Hg --------- Mitral valve Value Ref 06/04/2023 Mean v, D 0.87 m/sec --------- 0.45 Peak E 0.05 m/sec --------- 0.06 Peak A 0.91 m/sec --------- 0.79 VTI leaflet coapt 16.9 cm --------- 22.6 MiV/LVOT VTI 1.2 --------- 1.1 Decel time 237 ms --------- 166 PHT 45 ms --------- 91 Mean grad, D 3 mm Hg --------- 1 Peak grad, D 5.1 mm Hg --------- 2.9 Peak E/A ratio 0.82 --------- 1.04 MVA, PHT 4.9 cm 2 --------- 2.4 Pulmonic valve Value Ref 06/04/2023 TN peak v 0.47 m/sec --------- TN grad, ED 1 mm Hg --------- Aortic root Value Ref 06/04/2023 Root diam 3.1 cm 2.6 - 4.1 3.8 Root diam, ED MM 2.9 cm --------- 4.0 PATIENT NAME: KOTA MONTES Ascending aorta Value Ref 06/04/2023 AAo AP diam, S 3.7 cm --------- 3.9 Conclusions Summary: 1. Left ventricle: The cavity size is normal. Wall thickness is mildly increased. Systolic function is moderately reduced. The estimated ejection fraction is 30-34%. There is moderate diffuse hypokinesis. Grade I diastolic dysfunction. 2. Right ventricle: The cavity size is mildly dilated. Systolic function is moderately reduced. 3. Left atrium: The atrium is mildly dilated. 4. Right atrium: The atrium is mildly dilated. 5. Aortic valve: There is mild to moderate regurgitation. Impressions: Impella inflow cannula around 2.7 cm from aortic valve. Can be advanced around 1 cm. Electronically signed by Austin Segal MD 07/27/2023 20:38 at 2038 PATIENT NAME: KOTA MONTES [facility] 2023-07-27 14:05:00 [facility] ([facility]) Cardiology Progress Notes REPORT #: [id number] REPORT STATUS: Signed DATE: 07/27/23 TIME: 1405 PATIENT: KOTA MONTES UNIT #: [id number] ROOM #: [id number] BED: A : 62 AGE: 62 SEX: M ATTEND: Keenan Kumari MD ADM AUTHOR: Liu Patricia DO CF1 ATTENTION *EDITS and/or ADDENDA must be made in Patient Keeper for this note. * * Edits and ammendments created in [employer] are not visible * * in Patient Keeper or the legal medical record (HPF). * -- CO-SIGNATURE -- COMMENTS: I have personally seen and examined the patient independently, and reviewed the patient's history, exam, and all cardiac and laboratory data on 07/27/23. I agree with the history, physical, and the assessment and plan as outlined by Dr. Patricia, Cardiovascular Fellow. Signed in PatientKeeper by AUSTIN SEGAL MD on 08/25/23 at 10:47 -- ASSESSMENT AND PLAN -- GENERAL ASSESSMENT: 62 y/o M with HTN, HLD, CAD and NM s/p PCI 2005, 06/2022, 12/24/2022, S/P CABG x 2 BOGGS to LAD and SVG to OM (Dr. Pike) in 06/13/2023, Hx of alcohol abuse, and nicotine use who presented to ER by EMS c/o SOB and chest pain, with EKG concerning for acute NM. I evaluated the patient in the ER he reports OSB started yesterday, progressive and c/o chest pain since 12:30 pm today, continuous, mov=derate to severe, no radiation, heaviness, decreased with pain medication, at rest, no specific exacerbating factors, and associated with SOB. No palpitations, lightheadedness, no LOC, and no sweating. The patient was brought to ER, vitals were normal, O2 in mid 90s on RA. The patient refuses to take nitro saying it does not help him, EMS gave him ASA 325 and fentanyl 100 mcg IV. In ER, STEMI was activated. The patent was evaluated emergently in ER, no STEMI criteria per ECG. While in the ER, the patient developed acute respiratory distress, O2 desaturation, requiringO2 via NR. Stat echo showed LV EF <20%. Echo 06/2023: Estimated EF 30-34% 07/25: Trop 51.2 BNP: 1640 CXR: CHF with mild pulmonary edema EKG: L BB, No criteria st elevation Dx: # Cardiogenic shock # Acue decompensated HF (HFrEF) # Acute pulmonary edema # Acute hypoxemic respiratory failure, on O2 via NRB # Hx of CAD, s/o CABG x2 06/[address] Pike as above # Lactic acidosis # HTN # HLD Plan: - The patient was taken emergently to laboratory analyst. Impella was inserted (flow 3.4) - The patient had to be intubated and be on invasive mechanical ventilation. - S/P LHC: paten grafts (BOGGS to LAD and sVG to OM), mid and distal RCA intent stenosis s/p PCIs - Continue hemodynamic with MCS/Imeplla and inotropic support, monitor perfusion studies. Plan for weaning impella. Plan for pertuaneous removal of impella when ready. - DAPT with ASA and Plavix, high intensity statin - Repeat Echo pending - UDS pending - Continue therapeutic anticoagulation with heparin - Start diuresis with bumex gtt - ICU level of care. - Discussed with . -- SUBJECTIVE -- CHIEF COMPLAINT: Seen and examined the patient at bedside. No acute events overnight of dobutamine and levo. On Impella P7. -REVIEW OF SYSTEMS- COMMENT: 10 systems were reviewed and are negative -- OBJECTIVE -- VITALS (07/25 14:05 - 07/26 14:05): Temperature F: 98.5 (97.6 - 98.5) Temperature source: Axillary Pulse Rate 93 (81 - 135) Respiratory rate: 18 (17 - 30) Blood pressure: 107/62 (73/54 - 170/103) Blood pressure source: Arterial I/Os (07/25 07:00 - 07/26 07:00): Net -362.00 Intake 1,103.00 Output 1,465 -EXAM- GENERAL: Well developed, well nourished, in no apparent distress. HEAD: Normocephalic, atraumatic. EYES: PERRL, conjunctiva and sclera clear, without nystagmus, lids normal. EARS: Grossly normal hearing. NOSE: No deformity, no discharge, no inflammation, no lesions. MOUTH: Oropharynx without deformities or lesions, normal mucosa. NECK: Supple. No JVD. Trachea midline. CHEST: Surgical scar noted LUNGS: Clear bilaterally with normal respiratory effort. no wheezes HEART: Regular rate and rhythm, normal S1, S2, no murmurs, no rubs, no gallops, no clicks. ABDOMEN: Soft, non-tender, no organomegaly, no masses noted. MUSCULOSKELETAL: No deformity, joint ROM grossly normal. EXTREMITIES: No cyanosis, no edema. NEUROLOGICAL: Aox3. No focal deficits. PULSES: Pulses normal in all extremities. SKIN: Intact without significant lesions, or rashes. -- DATA -- MEDICATIONS MAGNESIUM SULFATE 2 GM IV ASDIR (PRN) MAGNESIUM SULFATE 4 G IV ASDIR (PRN) MUPIROCIN 1 APPLIC NASAL BID TICAGRELOR 90 MG PO Q12HR SOD BIPHOS/POT PHOSPHATE 2 PKT PO ASDIR PRN HEPARIN/SOD CHLOR 0.45% 80094 UNITS IV TITRATE NICOTINE 21 MG TRANSDERM DAILY MULTIVITAMINS with/in SODIUM CHLORIDE 0.9%, THIAMINE HCL, FOLIC ACID 10 ML IV Q24H LORazepam 1 MG IV Q4H PRN morphine SULFATE 2 MG IV Q4H PRN methocarbamoL 1000 MG PO TID PANTOPRAZOLE with/in SODIUM CHLORIDE 0.9% 40 MG IV DAILY SODIUM CHLORIDE 100 mL BAG with/in BUMETANIDE 60 ML IV .Q10H bisacodyL 10 MG RECTAL DAILY PRN INSULIN LISPRO 0 UNITS SUBQ Q6HR DEXTROSE 50%-WATER 25 ML IV ASDIR PRN ESCITALOPRAM 20 MG PO DAILY ACETAMINOPHEN 650 MG PO Q6H PRN FOLIC ACID 1 MG PO DAILY SODIUM CHLORIDE 0.9% 1000 ML IV .Q24H HEPARIN PHARMACY TO MONITOR 1 EACH IV ASDIR HYDROcodone BITARTRATE/APAP 1 TAB PO Q6H PRN polyethylene glycoL 3350 1 PKT PO DAILY ASPIRIN 81 MG PO DAILY PREGABALIN 50 MG PO BID POTASSIUM CHLORIDE 20 MEQ PO ASDIR PRN (Held) METOPROLOL TARTRATE 12.5 MG PO BID ATORVASTATIN CALCIUM 80 MG PO BEDTIME THIAMINE HCL 100 MG PO DAILY traZODone HCL 100 MG PO BEDTIME POTASSIUM CHLORIDE IN WATER 10 MEQ IV ASDIR (PRN) ONDANSETRON HCL/PF 4 MG IV Q4H PRN DOCUSATE SODIUM 200 MG PO DAILY SODIUM PHOSPHATE with/in SODIUM CHLORIDE 0.9% 20 MM IV ASDIR (PRN) GLUCAGON 1 MG IM ASDIR PRN CALCIUM GLUC IN NACL, ISO-OSM 2 GM IV ASDIR (PRN) SODIUM PHOSPHATE with/in SODIUM CHLORIDE 0.9% 30 MM IV ASDIR (PRN) propofoL 1000 MG IV TITRATE fentaNYL 1000 MCG IV TITRATE SODIUM BICARBONATE 8.4% with/in DEXTROSE 5%-WATER 25 MEQ MISC ASDIR LABS GLU BED (07/27/23 11:26) GLUBED 92 DRUGS OF ABUSE SCREEN URINE (07/27/23 09:11) UR COCAINE Negative UR CANABINOIDS Negative UR AMPHETAMINE Negative UR BARBITURATE Negative UR BENZODIAZEPINE Positive A UR OPIATES QUAL Negative UR PHENCYCLIDINE (PCP) Negative BASIC METABOLIC PANEL (07/27/23 08:42) SODIUM 138 POTASSIUM 3.7 CHLORIDE 104 CARBON DIOXIDE 25 GLUCOSE 84 BLOOD UREA NITROGEN 12 GLOMERULAR FILTRATION RATE >=60 max estimate CREATININE 1.10 CALCIUM 8.3 L MAG (07/27/23 08:42) MAGNESIUM 1.8 PHOS (07/27/23 08:42) PHOSPHOROUS 3.5 VENOUS BLOOD GAS (07/27/23 06:23) VENOUS BLOOD GAS PH 7.41 VENOUS BLOOD GAS PCO2 40.0 VENOUS BLOOD GAS PO2 33.2 VBG HCO3 25 VBG BASE EXCESS 0.5 VENOUS BLOOD GAS O2 SAT 64 VENOUS BLOOD GAS TYPE Venous VENOUS BLOOD GAS FIO2 60.0 VBG VENT MODE Ventilator COVID Asymp Ag (07/27/23 03:37) COVID 19 Asymptomatic IH AG NEGATIVE COMPREHENSIVE METABOLIC PANEL (07/27/23 03:31) SODIUM 139 POTASSIUM 3.8 CHLORIDE 103 CARBON DIOXIDE 23 GLUCOSE 100 BLOOD UREA NITROGEN 14 GLOMERULAR FILTRATION RATE >=60 max estimate CREATININE 1.00 TOTAL PROTEIN 5.5 L ALBUMIN 3.9 CALCIUM 8.7 D BILIRUBIN TOTAL 1.0 SGOT/AST 38 H SGPT/ALT 18 ALKALINE PHOSPHATASE 80.0 MAG (07/27/23 03:31) MAGNESIUM 1.9 PHOS (07/27/23 03:31) PHOSPHOROUS 4.5 FIB (07/27/23 03:31) FIBRINOGEN 404 H PTT (07/27/23 03:31) THROMBOPLASTIN TIME PARTIAL 29.6 D PROTHROMBIN TIME (07/27/23 03:31) PROTHROMBIN TIME PATIENT 12.6 INTERNATIONAL NORMAL RATIO 1.13 H CBC W/AUTO DIFF (07/27/23 03:31) WHITE BLOOD CELL 10.1 RED BLOOD CELL 3.64 L HEMOGLOBIN 11.8L L HEMATOCRIT 33.8L L MEAN CELL VOLUME 92.9 MEAN CELL HGB 32.4 H MEAN CELL HGB CONCENTRATION 34.9 RED CELL DISTRIBUTION WIDTH 13.3 PLATELET COUNT 264 MEAN PLATELET VOLUME 9.8 NEUTROPHIL % 71.9 LYMPHOCYTE % 19.5 L MONOCYTE % 7.5 EOSINOPHIL % 0.2 BASOPHIL % 0.5 NEUTROPHIL # 7.28 LYMPHOCYTE # 1.97 MONOCYTE # 0.76 EOSINOPHIL # 0.02 BASOPHIL # 0.05 LDH (07/27/23 03:31) LACTIC DEHYDROGENASE(LDH) 536 H LACTIC ACID (07/27/23 03:31) LACTIC ACID 1.40 BLOOD GAS W/ELECTROLYTES (07/27/23 03:28) ARTERIAL BLOOD GAS PH 7.49 H ARTERIAL BLOOD GAS PCO2 31.5 L ARTERIAL BLOOD GAS PO2 159.1 H BICARBONATE TOTAL HCO3 23.3 BASE EXCESS 0.6 ABG O2 SATURATION 99.3 ARTERIAL FIO2 60.0 ABG VENT MODE Ventilator ALLENS TEST No SODIUM (POC) 136 POTASSIUM (POC) 3.69 CHLORIDE (ARTERIAL) 100 GLUCOSE 100 IONIZED CALCIUM 1.17 POC LACTIC ACID 1.99 TOTAL HGB 12.7 D L CARBOXYHEMOGLOBIN 0.8 METHEMOGLOBIN <0.8 HHb 0.7 TCO2 ARTERIAL 24.3 VENOUS BLOOD GAS (07/26/23 22:56) VENOUS BLOOD GAS PH 7.41 VENOUS BLOOD GAS PCO2 39.2 VENOUS BLOOD GAS PO2 34.9 VBG HCO3 24 VBG BASE EXCESS -0.3 VENOUS BLOOD GAS O2 SAT 67 VENOUS BLOOD GAS TYPE Venous VENOUS BLOOD GAS FIO2 100.0 VBG VENT MODE Ventilator LACTIC ACID (07/26/23 22:47) LACTIC ACID 1.30 CBC W/AUTO DIFF (07/26/23 22:46) WHITE BLOOD CELL 13.7H H RED BLOOD CELL 3.76 L HEMOGLOBIN 12.1L L HEMATOCRIT 35.9L L MEAN CELL VOLUME 95.5 H MEAN CELL HGB 32.2 H MEAN CELL HGB CONCENTRATION 33.7 RED CELL DISTRIBUTION WIDTH 13.2 PLATELET COUNT 282 MEAN PLATELET VOLUME 10.0 NEUTROPHIL % 83.9 H LYMPHOCYTE % 10.1 L MONOCYTE % 5.4 EOSINOPHIL % 0.0 BASOPHIL % 0.2 NEUTROPHIL # 11.45 H LYMPHOCYTE # 1.38 MONOCYTE # 0.74 EOSINOPHIL # 0.00 BASOPHIL # 0.03 FIB (07/26/23 22:45) FIBRINOGEN 363 MAG (07/26/23 22:45) MAGNESIUM 1.5 L LDH (07/26/23 22:45) LACTIC DEHYDROGENASE(LDH) 458 H PTT (07/26/23 22:45) THROMBOPLASTIN TIME PARTIAL 397.0 D*H PROTHROMBIN TIME (07/26/23 22:45) PROTHROMBIN TIME PATIENT 14.2 H INTERNATIONAL NORMAL RATIO 1.27 H BASIC METABOLIC PANEL (07/26/23 22:45) SODIUM 137 POTASSIUM 4.0 CHLORIDE 103 CARBON DIOXIDE 22 GLUCOSE 120H H BLOOD UREA NITROGEN 10 GLOMERULAR FILTRATION RATE >=60 max estimate CREATININE 1.00 CALCIUM 7.6 D L PHOS (07/26/23 22:45) PHOSPHOROUS 4.6 BLOOD GAS W/ELECTROLYTES (07/26/23 22:29) ARTERIAL BLOOD GAS PH 7.46 H ARTERIAL BLOOD GAS PCO2 28.9 L ARTERIAL BLOOD GAS PO2 406.7 H BICARBONATE TOTAL HCO3 19.9 L BASE EXCESS -2.8 L ABG O2 SATURATION 100.0 ARTERIAL FIO2 100.0 ABG VENT MODE Ventilator ALLENS TEST No SODIUM (POC) 137 POTASSIUM (POC) 4.03 CHLORIDE (ARTERIAL) 100 GLUCOSE 114 H IONIZED CALCIUM 1.08 L POC LACTIC ACID 1.85 TOTAL HGB 13.4 OXYHEMOGLOBIN 99.1 H CARBOXYHEMOGLOBIN 0.6 METHEMOGLOBIN <0.8 HHb 0 TCO2 ARTERIAL 20.8 L ACT (07/26/23 20:15) COAGULATION TIME ACTIVATED 262 H ACT (07/26/23 19:42) COAGULATION TIME ACTIVATED 330 H ACT (07/26/23 18:53) COAGULATION TIME ACTIVATED 287 H LACTIC ACID (07/26/23 17:57) LACTIC ACID 3.80 *H BLOOD GAS W/ELECTROLYTES (07/26/23 17:08) ARTERIAL BLOOD GAS PH 7.34 L ARTERIAL BLOOD GAS PCO2 29.3 L ARTERIAL BLOOD GAS PO2 57.8 L BICARBONATE TOTAL HCO3 15.5 L BASE EXCESS -8.7 L ARTERIAL FIO2 44.0 ABG VENT MODE NASAL CANNULA ALLENS TEST GOOD COLLATERAL FLOW SODIUM (POC) 132 L POTASSIUM (POC) 3.90 CHLORIDE (ARTERIAL) 101 GLUCOSE 201 H IONIZED CALCIUM 1.14 POC LACTIC ACID 3.97 H TCO2 ARTERIAL 16.4 L Signed in PatientKeeper by Liu Patricia DO CF1 on 07/27/23 at 14:17 Cosigned by AUSTIN SEGAL MD on 08/25/23 at 10:47 at 1047 at 1047 ATTENTION *EDITS and/or ADDENDA must be made in Patient Keeper for this note. * * Edits and ammendments created in [facility] are not visible * * in Patient Keeper or the legal medical record ([facility]). * RPT #: [id number] END OF REPORT [facility] 2023-07-27 11:18:00 [facility] ([facility]) Operative Report REPORT #: [id number] REPORT STATUS: Signed DATE: 07/27/23 TIME: 111 PATIENT: KOTA MONTES UNIT #: [id number] ROOM #: [facility] BED: 1 : 61 AGE: 62 SEX: M ATTEND: Keenan Kumari MD ADM AUTHOR: Malachi Fitzgerald MD ATTENTION *EDITS and/or ADDENDA must be made in Patient Keeper for this note. * * Edits and ammendments created in [employer] are not visible * * in Patient Keeper or the legal medical record ([facility]). * -- OPERATION -- SURGERY START DATE/TIME: 2023-07-26 16:20 PRE-OPERATIVE DIAGNOSIS: 1. Acute hypoxic respiratory failure. 2. Cardiogenic shock. 3. Pulmonary edema. 4. Flash pulmonary edema. 5. NSTEMI. 6. Lactic acidosis. 7. Severe coronary artery disease. POST-OPERATIVE DIAGNOSIS: 1. Acute hypoxic respiratory failure. 2. Cardiogenic shock. 3. Pulmonary edema. 4. Flash pulmonary edema. 5. NSTEMI. 6. Lactic acidosis. 7. Severe coronary artery disease. 8. Patent BOGGS to LAD and patent SVG to OM. 9. Status post successful PCI to right coronary artery. 10. S/p successful placement of Impella CP device. INDICATION(S): 62 y/o M with HTN, HLD, CAD and NM s/p PCI 2005, 06/2022, 12/24/2022, S/P CABG x 2 BOGGS to LAD and SVG to OM (Dr. Pike) in 06/13/2023, admitted with worsening shortness of breath and chest pain since yesterday. Echocardiogram demonstrated LV ejection fraction of less than 20%. Diminished RV function as well. In the ER the patient's status worsened and he had lactic acidosis, required to be initiated on non-rebreather. EKG demonstrated EKG changes concerning for inferior ischemia. NAME OF PROCEDURE: 1. Moderate Sedation. 2. Ultrasound-guided Retrograde access of the left femoral artery and insertion of 14 Fr Impella Sheath. 3. Left heart catheterization. 4. Insertion of ventricular assist device (impella CP), percutaneous, including radiological supervision and interpretation, left heart, atrial access (42952). 5. Ultrasound guided retrograde access of the right femoral artery and insertion of 7 Chinese sheath. 6. Selective Coronary Angiogram ([place] coronary artery angiogram). 7. Bypass Angiogram (Bypass graft angiogram). 8. Peripheral angiogram of the left subclavian artery. 9. Intravascular ultrasound (IVUS) of the right coronary artery (42390). 10. Complex High risk impella assisted percutaneous coronary intervention of the right coronary artery for acute NM with DIMPLE x 1 (33616). 11. IVL Shockwave treatment of the mid and distal right coronary artery (51588). 12.Ultrasound guided antegrade access of the left superficial femoral artery. 13. Insertion of distal perfusion catheter in the left superficial femoral artery using a 6 Fr braided sheath (56724). 14. Creation of a fem-femoral bypass with donor from right femoral artery and receiving vessel being left superficial femoral artery (67990) bypassing the left femoral artery. TIME OUT COMPLETED: Yes SURGEON: Malachi Fitzgerald MD CURTAIN SUPERVISOR(S): Dr. Powell (fellow) ANESTHESIA: Moderate Sedation ESTIMATED BLOOD LOSS: 10 ml's FINDINGS: Selective coronary angiogram: 1. Right coronary artery: Mid-RCA 80% ISR lesion that is heavily calcified. 99% under-expanded calcific lesion in the distal right coronary artery. 2. Left main artery: The ostium of the LM has a 70% lesion that caused significant dampening of the hemodynamic tracings. 3. Left anterior descending artery: Mid LAD MARKETING CONSULTANT. 4. Left circumflex artery: The ostium of the LCX has a 80% stenosis. Bypass angiogram: 1. BOGGS to LAD: Patent 2. SVG to the OM: Patent Left heart catheterization: 1. LVEDP = 38 mm Hg. 2. No significant aortic valve gradient. Intravascular ultrasound: 1. Intravascular ultrasound of the RCA A. Calcific lesion in the mid RCA. This is a severe ISR lesion. B. Mid-RCA is 3.0 mm in diameter. Percutaneous coronary intervention: 1. Percutaneous coronary intervention of the Right Coronary Artery with a 2.5x18 mm Nick [place] drug eluting stent. 2. IVL Shockwave treatment of the distal and mid RCA lesion using a 3.0x12 mm shockwave balloon. SPECIMEN(S) REMOVED AND/OR ALTERED: None COMPLICATION(S): None -- DESCRIPTION -- DESCRIPTION OF TECHNIQUE/PROCEDURE: Emergent informed consent was obtained from the patient and their family. After proper identification, the patient was brought to the laboratory analyst. Time out was performed. The patient was having active chest pain and visibly short of breath even on non-rebreather. We were hoping that an impella will quickly unload the LV and avoid intubation. The left and right femoral artery access sites was cleaned and draped in a sterile manner. Moderate sedation was initiated by monitored by me during the procedure. Then, we accessed the left femoral artery using a micro-puncture needle, under ultrasound guidance. Heparin was administered and therapeutic ACT was maintained by myself during the entirety of the case. The left femoral access was serially dilated. The LFA was then cannulated using the 14 Chinese short Impella sheath over the Amplatz wire. Then, the aortic valve was crossed using a 4 Chinese angled pigtail and left heart catheterization was performed along with measurement of LVEDP. LVEDP was found to be elevated at 38 mm Hg. Then, a 0.018 impella wire was advanced in the LV apex. An Impella CP device was advanced over this wire into the LV apex. The Impella position was confirmed to be optimal using fluoroscopy. The Impella CP device provided excellent hemodynamics support as evidenced by the hemodynamic tracings. However, at this point the patient got extremely agitated and had to be intubated to complete the procedure safely. Then, the right femoral artery was accessed using a micro-puncture needle under ultrasound guidance. Then a 7 Fr femoral sheath was placed in the RFA. We then used a 5 Fr JR4 diagnostic catheter to engaged the RCA and perform selective coronary angiogram of the right coronary artery. We then used 5 Chinese JL 4 diagnostic catheter to engage the left main artery and perform selective coronary angiogram of the left coronary system. Engagement of the left main demonstrated significant dampening of the hemodynamic tracings. We then used a 5 Chinese IM catheter and advanced it into the left subclavian artery. Peripheral angiogram of the left subclavian artery did not demonstrate any significant stenosis of the left subclavian artery. We then used this 5 Chinese IM catheter to engage the BOGGS. Bypass angiogram of the BOGGS demonstrated patent BOGGS to LAD. We then used this IM catheter to engage the SVG graft graft. Bypass angiogram of the SVG graft demonstrated a patent SVG to OM artery. Since coronary angiogram demonstrated significant mid-RCA 80% in-stent restenosis and distal RCA 99% calcific lesion , we proceeded to perform PCI of the RCA. We engaged the right coronary artery with a 7 Chinese JR4 guide. We then used a minamo wire to cross the mid and distal right coronary artery lesion carefully. The distal RCA segment of the stent was found to be extremely under-expanded. We had difficulty delivering equipment across this lesion, hence used a 7 Chinese guide liner for additional support. We predilated the mid RCA and the distal RCA lesion using a 2.0X 15 mm semi-compliant balloon. We then used an intravascular ultrasound which demonstrated that the mid RCA was 3.0 millimeters in diameter. The mid-RCA lesion was extremely stenotic and extremely calcific in nature on IVUS. However, due to the critical nature of the distal RCA lesion we were unable to deliver the IVUS catheter beyond the distal RCA lesion. Hence, we used a 2.25X 16 mm [place] cutting balloon to predilate the mid and distal RCA lesion. We then used a 3.0 X12 millimeter shockwave balloon to prep the distal and mid RCA lesions (120 shocks). We did notice significant no reflow in the RCA after completion of treatment with the shockwaves. RCA flow was restored after administration of intracoronary adenosine. We post-dilated the entirety of the RCA stented segment including the distal and mid segments using a 3.0X 10 mm score flex balloon at high pressures. We then realized that the karuk distal RCA segment beyond the stented segment has significant coronary artery disease and mild dissection. We covered this area with a 2.5X 18 mm Medtronic Nick drug-eluting stent. Post PCI cine-angiograms demonstrated excellent stent expansion, no edge dissection and no geographic miss. At the end of the procedure, the 14 Chinese sheath was taken out of the left femoral artery and the Impella CP was sutured in place. Then, the left superficial femoral artery was accessed under ultrasound guidance using a micro-puncture needle. A J-tipped Super Stiff Amplatz wire was used to insert a braided 6 Chinese sheath in the left superficial femoral artery. This sheath was then connected to the retrograde 7 Chinese right femoral artery sheath to create an arterial bypass using a male to male connector. Both sheaths were then sutured in place. The family and the primary team were updated with the findings of the procedure. Moderate sedation: "I attest that Moderate Conscious Sedation was supervised by me, Malachi Fitzgerald MD. An independent trained observer pushed medications at my direction and monitored the patient's level of consciousness and physiological status throughout. 2 mg of intravenous Versed and 50 mcg of intravenous Fentanyl was given to sedate the patient. Start time 18:20 pm and End time 19:20 for 60 minutes. After this, we consulted our critical care colleague - Dr. Stein to intubate the patient so that we can safely complete the procedure. There were no complications. See nurses sedation sheet I signed and dated for further details." Findings: Selective coronary angiogram: 1. Right coronary artery: Mid-RCA 80% ISR lesion that is heavily calcified. 99% under-expanded calcific lesion in the distal right coronary artery. 2. Left main artery: The ostium of the LM has a 70% lesion that caused significant dampening of the hemodynamic tracings. 3. Left anterior descending artery: Mid LAD MARKETING CONSULTANT. 4. Left circumflex artery: The ostium of the LCX has a 80% stenosis. Bypass angiogram: 1. BOGGS to LAD: Patent 2. SVG to the OM: Patent Left heart catheterization: 1. LVEDP = 38 mm Hg. 2. No significant aortic valve gradient. Intravascular ultrasound: 1. Intravascular ultrasound of the RCA A. Calcific lesion in the mid RCA. This is a severe ISR lesion. B. Mid-RCA is 3.0 mm in diameter. Percutaneous coronary intervention: 1. Percutaneous coronary intervention of the Right Coronary Artery with a 2.5x18 mm Nick [place] drug eluting stent. 2. IVL Shockwave treatment of the distal and mid RCA lesion using a 3.0x12 mm shockwave balloon. Conclusion: 1. Successful percutaneous placement of an Impella CP device via left femoral artery. 2. Successful percutaneous coronary intervention of the RCA. 3. Successful creation of a fem-fem bypass and placement of a distal perfusion catheter for the left lower extremity.. Plan 1. Continue with Brilinta 90 mg BID and aspirin 81 mg daily for at least 1 year. 2. Continue with high intensity statin. 3. Continue with treatment of cardiogenic shock. 4. Q8 hours check of distal pedal pulses. 5. Patient will benefit from initiating beta-blockers, KIN inhibitors/Entresto once he starts tolerating. 6. Patient will benefit from cardiac rehab after discharge. Signed in PatientKeeper by Malachi Fitzgerald MD on 07/27/23 at 14:12 at 1412 ATTENTION *EDITS and/or ADDENDA must be made in Patient Keeper for this note. * * Edits and ammendments created in [employer] are not visible * * in Patient Keeper or the legal medical record ([facility]). * [facility] #: [id number] END OF REPORT [facility] 2023-07-27 07:45:00 [facility] ([facility]) Hospitalist Progress Note REPORT #: [id number] REPORT STATUS: Signed DATE: 07/27/23 TIME: 744 PATIENT: KOTA MONTES UNIT #: [id number] ROOM #: [id number] BED: 1 : 61 AGE: 62 SEX: M ATTEND: Keenan Kumari MD ADM AUTHOR: Keenan Kumari MD ATTENTION *EDITS and/or ADDENDA must be made in Patient Keeper for this note. * * Edits and ammendments created in [employer] are not visible * * in Patient Keeper or the legal medical record ([facility]). * -- ASSESSMENT AND PLAN -- PROBLEMS: 1: Cardiogenic shock 2: Coronary artery disease 3: Chest pain, unspecified type 4: Non-ST elevation (NSTEMI) myocardial infarction 5: Alcohol abuse with unspecified alcohol-induced disorder 6: Unstable angina 7: Cervicalgia 8: Alcohol abuse 9: Heart failure, unspecified 10: Chronic disease anemia 11: Hypertension, essential 12: Acute on chronic systolic heart failure ADDITIONAL COMMENTS: Cardio consulted plan to take to procedure home meds ICU supportive care 07/26 - post impella implant now in icu with goals of stabilization and weaning and removal eventually per cardiology. started on bumex gtt for heart failure. UDS and close monitoring Keenan Kumari MD Internal Medicine -- SUBJECTIVE -- PATIENT NARRATIVE: remains in icu s/p impella bumex gtt afebrile no n/v/d -REVIEW OF SYSTEMS- COMMENT: 10 point ROS negative unless noted. -- OBJECTIVE -- VITALS (07/25 22:54 - 07/26 22:54): Temperature F: 98.7 (97.6 - 98.7) Temperature source: Oral Pulse Rate 97 (81 - 102) Respiratory rate: 8 (7 - 30) Blood pressure: 120/62 (73/53 - 139/89) Blood pressure source: Arterial I/Os (07/25 07:00 - 07/26 07:00): Net -362.00 Intake 1,103.00 Output 1,465 -EXAM- GENERAL: Well developed, well nourished, in no apparent distress. HEAD: Normocephalic, atraumatic. EARS: grossly normal hearing. NOSE: No deformity, no discharge MOUTH: Oropharynx without deformities or lesions, normal mucosa. CHEST: sternotomy site c/d/i, chest tubes and TPW noted LUNGS: Clear bilaterally with normal respiratory effort. HEART: Regular rate and rhythm, normal S1, S2, no murmurs EXTREMITIES: No clubbing, no cyanosis, no edema. NEUROLOGICAL: No focal deficits, cranial nerves II-XII grossly intact PSYCHIATRIC: Alert and oriented to time, person, place. -- DATA -- MEDICATIONS MAGNESIUM SULFATE 2 GM IV ASDIR (PRN) ESCITALOPRAM 20 MG PO DAILY ACETAMINOPHEN 650 MG PO Q6H PRN FOLIC ACID 1 MG PO DAILY SODIUM CHLORIDE 0.9% 1000 ML IV .Q24H [facility] TO MONITOR 1 EACH IV ASDIR MAGNESIUM SULFATE 4 G IV ASDIR (PRN) HYDROcodone BITARTRATE/APAP 1 TAB PO Q6H PRN polyethylene glycoL 3350 1 PKT PO DAILY ASPIRIN 81 MG PO DAILY MUPIROCIN 1 APPLIC NASAL BID TICAGRELOR 90 MG PO Q12HR SOD BIPHOS/POT PHOSPHATE 2 PKT PO ASDIR PRN PREGABALIN 50 MG PO BID HEPARIN/SOD CHLOR 0.45% 52962 UNITS IV TITRATE POTASSIUM CHLORIDE 20 MEQ PO ASDIR PRN (Held) METOPROLOL TARTRATE 12.5 MG PO BID ATORVASTATIN CALCIUM 80 MG PO BEDTIME NICOTINE 21 MG TRANSDERM DAILY THIAMINE HCL 100 MG PO DAILY (Held) traZODone HCL 100 MG PO BEDTIME MULTIVITAMINS with/in SODIUM CHLORIDE 0.9%, THIAMINE HCL, FOLIC ACID 10 ML IV Q24H POTASSIUM CHLORIDE IN WATER 10 MEQ IV ASDIR (PRN) ONDANSETRON HCL/PF 4 MG IV Q4H PRN LORazepam 1 MG IV Q4H PRN DOCUSATE SODIUM 200 MG PO DAILY morphine SULFATE 2 MG IV Q4H PRN SODIUM PHOSPHATE with/in SODIUM CHLORIDE 0.9% 20 MM IV ASDIR (PRN) methocarbamoL 1000 MG PO TID PANTOPRAZOLE with/in SODIUM CHLORIDE 0.9% 40 MG IV DAILY GLUCAGON 1 MG IM ASDIR PRN SODIUM CHLORIDE 100 mL BAG with/in BUMETANIDE 60 ML IV .Q10H CALCIUM GLUC IN NACL, ISO-OSM 2 GM IV ASDIR (PRN) bisacodyL 10 MG RECTAL DAILY PRN SODIUM PHOSPHATE with/in SODIUM CHLORIDE 0.9% 30 MM IV ASDIR (PRN) propofoL 1000 MG IV TITRATE INSULIN LISPRO 0 UNITS SUBQ Q6HR DEXTROSE 50%-WATER 25 ML IV ASDIR PRN fentaNYL 1000 MCG IV TITRATE SODIUM BICARBONATE 8.4% with/in DEXTROSE 5%-WATER 25 MEQ MISC ASDIR LABS PTT (07/27/23 18:03) THROMBOPLASTIN TIME PARTIAL 41.6 D H PHOS (07/27/23 16:56) PHOSPHOROUS 2.8 MAG (07/27/23 16:56) MAGNESIUM 1.9 BASIC METABOLIC PANEL (07/27/23 16:56) SODIUM 136 POTASSIUM 3.4L L CHLORIDE 106 CARBON DIOXIDE 23 GLUCOSE 94 BLOOD UREA NITROGEN 10 GLOMERULAR FILTRATION RATE >=60 max estimate CREATININE 0.90 CALCIUM 7.8 L GLU BED (07/27/23 11:26) GLUBED 92 DRUGS OF ABUSE SCREEN URINE (07/27/23 09:11) UR COCAINE Negative UR CANABINOIDS Negative UR AMPHETAMINE Negative UR BARBITURATE Negative UR BENZODIAZEPINE Positive A UR OPIATES QUAL Negative UR PHENCYCLIDINE (PCP) Negative MAG (07/27/23 08:42) MAGNESIUM 1.8 BASIC METABOLIC PANEL (07/27/23 08:42) SODIUM 138 POTASSIUM 3.7 CHLORIDE 104 CARBON DIOXIDE 25 GLUCOSE 84 BLOOD UREA NITROGEN 12 GLOMERULAR FILTRATION RATE >=60 max estimate CREATININE 1.10 CALCIUM 8.3 L PHOS (07/27/23 08:42) PHOSPHOROUS 3.5 VENOUS BLOOD GAS (07/27/23 06:23) VENOUS BLOOD GAS PH 7.41 VENOUS BLOOD GAS PCO2 40.0 VENOUS BLOOD GAS PO2 33.2 VBG HCO3 25 VBG BASE EXCESS 0.5 VENOUS BLOOD GAS O2 SAT 64 VENOUS BLOOD GAS TYPE Venous VENOUS BLOOD GAS FIO2 60.0 VBG VENT MODE Ventilator COVID Asymp Ag (07/27/23 03:37) COVID 19 Asymptomatic IH AG NEGATIVE COMPREHENSIVE METABOLIC PANEL (07/27/23 03:31) SODIUM 139 POTASSIUM 3.8 CHLORIDE 103 CARBON DIOXIDE 23 GLUCOSE 100 BLOOD UREA NITROGEN 14 GLOMERULAR FILTRATION RATE >=60 max estimate CREATININE 1.00 TOTAL PROTEIN 5.5 L ALBUMIN 3.9 CALCIUM 8.7 D BILIRUBIN TOTAL 1.0 SGOT/AST 38 H SGPT/ALT 18 ALKALINE PHOSPHATASE 80.0 MAG (07/27/23 03:31) MAGNESIUM 1.9 PHOS (07/27/23 03:31) PHOSPHOROUS 4.5 CBC W/AUTO DIFF (07/27/23 03:31) WHITE BLOOD CELL 10.1 RED BLOOD CELL 3.64 L HEMOGLOBIN 11.8L L HEMATOCRIT 33.8L L MEAN CELL VOLUME 92.9 MEAN CELL HGB 32.4 H MEAN CELL HGB CONCENTRATION 34.9 RED CELL DISTRIBUTION WIDTH 13.3 PLATELET COUNT 264 MEAN PLATELET VOLUME 9.8 NEUTROPHIL % 71.9 LYMPHOCYTE % 19.5 L MONOCYTE % 7.5 EOSINOPHIL % 0.2 BASOPHIL % 0.5 NEUTROPHIL # 7.28 LYMPHOCYTE # 1.97 MONOCYTE # 0.76 EOSINOPHIL # 0.02 BASOPHIL # 0.05 FIB (07/27/23 03:31) FIBRINOGEN 404 H LDH (07/27/23 03:31) LACTIC DEHYDROGENASE(LDH) 536 H PTT (07/27/23 03:31) THROMBOPLASTIN TIME PARTIAL 29.6 D LACTIC ACID (07/27/23 03:31) LACTIC ACID 1.40 PROTHROMBIN TIME (07/27/23 03:31) PROTHROMBIN TIME PATIENT 12.6 INTERNATIONAL NORMAL RATIO 1.13 H BLOOD GAS W/ELECTROLYTES (07/27/23 03:28) ARTERIAL BLOOD GAS PH 7.49 H ARTERIAL BLOOD GAS PCO2 31.5 L ARTERIAL BLOOD GAS PO2 159.1 H BICARBONATE TOTAL HCO3 23.3 BASE EXCESS 0.6 ABG O2 SATURATION 99.3 ARTERIAL FIO2 60.0 ABG VENT MODE Ventilator ALLENS TEST No SODIUM (POC) 136 POTASSIUM (POC) 3.69 CHLORIDE (ARTERIAL) 100 GLUCOSE 100 IONIZED CALCIUM 1.17 POC LACTIC ACID 1.99 TOTAL HGB 12.7 D L CARBOXYHEMOGLOBIN 0.8 METHEMOGLOBIN <0.8 HHb 0.7 TCO2 ARTERIAL 24.3 VENOUS BLOOD GAS (07/26/23 22:56) VENOUS BLOOD GAS PH 7.41 VENOUS BLOOD GAS PCO2 39.2 VENOUS BLOOD GAS PO2 34.9 VBG HCO3 24 VBG BASE EXCESS -0.3 VENOUS BLOOD GAS O2 SAT 67 VENOUS BLOOD GAS TYPE Venous VENOUS BLOOD GAS FIO2 100.0 VBG VENT MODE Ventilator Signed in PatientKeeper by Keenan Kumari MD on 07/27/23 at 22:56 at 2256 ATTENTION *EDITS and/or ADDENDA must be made in Patient Keeper for this note. * * Edits and ammendments created in [employer] are not visible * * in Patient Keeper or the legal medical record ([facility]). * RPT #: [id number] END OF REPORT [facility] 2023-07-27 06:02:00 [facility] ([facility]) Intensive Care Progress Note REPORT #: [id number] REPORT STATUS: Signed DATE: 07/27/23 TIME: 0602 PATIENT: KOTA MONTES UNIT #: [id number] ROOM #: [facility] BED: 1 : 61 AGE: 62 SEX: M ATTEND: Keenan Kumari MD ADM AUTHOR: Sherrie Stein MD ATTENTION *EDITS and/or ADDENDA must be made in Patient Keeper for this note. * * Edits and ammendments created in [employer] are not visible * * in Patient Keeper or the legal medical record ([facility]). * -- ASSESSMENT AND PLAN -- HOSPITAL COURSE TO DATE: Patient is a 62-year-old male with PMH notable for CAD s/p 2V CAB (06/25) and PCI ('06, 06/24, 10/23), ischemic cardiomyopathy (EF 30-34%), HTN, HLD, h/o ETOH abuse, tobacco abuse, anxiety/depression, and medical non-compliance initially presenting to [facility] with a chief complaint of chest pain and shortness of breath on 07/25. Patient admitted to CVICU for management of acute cardiogenic shock requiring Impella support. 07/25: s/p C with PCI x1 to RCA and Impella CP placement, intubated GENERAL ASSESSMENT: Plan: Pain/Sedation -Concern for Impella dislodgement due to agitation, maintain goal RASS of -2 to -3 while intubated -Continue propofol/fentanyl gtts Neuro/Psych #Agitation/Delirium #Anxiety/Depression #H/o ETOH Abuse and Polysubstance Abuse -Exam non-focal, awakens and follows commands when sedation weaned, however agitated/delirious -UDS positive for benzos, possibly from in-hospital administration -Known h/o ETOH abuse, monitor closely for symptoms of withdrawal, continue daily thiamine/folate, CIWA protocol if appropriate once off sedation -Continue home Lexapro -Frequent reorientation/redirection, optimize sleep/wake cycle, delirium precautions Respiratory #Acute Hypoxic Respiratory Failure #Acute Pulmonary Edema #Tobacco Abuse -Acute hypoxia 2/2 pulmonary edema in the setting of cardiogenic shock -Vent support improved following Impella placement and diuresis -Maintain mechanical ventilation, wean as tolerated, goal SpO2 >92% -NRT, serial CXRs/ABGs, CPT, pulmonary hygiene Cardiovascular #Cardiogenic Shock s/p Impella CP Placement #Biventricular Heart Failure #Multi-Vessel CAD s/p PCI to RCA (h/o CAB x2 and prior PCI) -TTE on admission with new biventricular failure, LV EF <10% (previously 30-34%) -[facility] with patent grafts, LVEDP 38, PCI x1 to RCA -Hemodynamics improved, weaned off inotropes/vasopressors following Impella placement -Continue Impella support (wean from P7 to P6) with HCO3 purge/heparin gtt, monitor for hemolysis -Jwtel-mq-yhyc distal reperfusion catheter in place, neurovascular checks per protocol -Maintain goal MAP >65 -Lactate normalized, SVO2 improved, continue trending -A-line/CVC in place, continue close hemodynamic monitoring, will hold off on PA catheter placement given clinical improvement -DAPT/high-dose statin -Hold GDMT given hypotension, resume as able -F/u repeat TTE following PCI -Cardiology following, recommendations appreciated Gastrointestinal -Start TFs at 20cc via OGT, will plan to advance to goal if able to place post-pyloric -SUP, bowel regimen Renal -Renal function WNL -Maintain Singh for strict I/O -Hold Bumex gtt given significant UOP, will resume PRN -Electrolyte protocol, maintain K >4.0, Phos >3.0, Mg >2.0 Infectious Disease -No evidence of infection at present, monitor fever curve Endocrine -SSI PRN, maintain goal BS 140-180 -Hypoglycemia protocol HEME #Acute Blood Loss Anemia -H/H stable, no evidence of bleeding -Continue close monitoring while on therapeutic anticoagulation -Transfuse for goal Hgb >8.0, platelets >10k or 20k with bleeding, and fibrinogen >150 MSK -PT/OT once extubated PPX -DVT: Heparin gtt -GI: PPI QD GOC -Code: FULL per patient (, NOK/surrogate medical decision maker) -Advance Care Planning: None per family Dispo: Continue ICU level care Medications reviewed with ICU pharmacist Patient is critically ill and at risk of imminent life threatening injury or -- SUBJECTIVE -- PATIENT NARRATIVE: Patient admitted yesterday evening for acute cardiogenic shock. Taken to laboratory analyst and intubated, Impella CP inserted, and LHC performed showing findings concerning for disease involving RCA. PCI x1 performed with dilation of prior stent. Patient transferred to CVICU postoperatively on Bumex gtt, weaned off dobutamine. Significant agitation with concern for dislodgement of Impella, sedation increased. -- OBJECTIVE -- VITALS (07/25 06:02 - 07/26 06:02): Temperature F: 97.9 (97.6 - 98.9) Temperature source: Oral Pulse Rate 88 (82 - 135) Respiratory rate: 18 (16 - 25) Blood pressure: 100/76 (91/62 - 170/103) Blood pressure source: Arterial -- DATA -- MEDICATIONS MAGNESIUM SULFATE 2 GM IV ASDIR (PRN) HEPARIN SODIUM,PORCINE 3000 UNIT IV ASDIR (PRN) HEPARIN SODIUM,PORCINE 5000 UNIT IV ASDIR (PRN) HEPARIN/SOD CHLOR 0.45% 91542 UNITS IV TITRATE MAGNESIUM SULFATE 4 G IV ASDIR (PRN) MUPIROCIN 1 APPLIC NASAL BID TICAGRELOR 90 MG PO Q12HR SOD BIPHOS/POT PHOSPHATE 2 PKT PO ASDIR PRN NICOTINE 21 MG TRANSDERM DAILY MULTIVITAMINS with/in SODIUM CHLORIDE 0.9%, THIAMINE HCL, FOLIC ACID 10 ML IV Q24H LORazepam 1 MG IV Q4H PRN morphine SULFATE 2 MG IV Q4H PRN methocarbamoL 1000 MG PO TID PANTOPRAZOLE with/in SODIUM CHLORIDE 0.9% 40 MG IV DAILY SODIUM CHLORIDE 100 mL BAG with/in BUMETANIDE 60 ML IV .Q10H bisacodyL 10 MG RECTAL DAILY PRN INSULIN LISPRO 0 UNITS SUBQ Q6HR DEXTROSE 50%-WATER 25 ML IV ASDIR PRN ESCITALOPRAM 20 MG PO DAILY ACETAMINOPHEN 650 MG PO Q6H PRN FOLIC ACID 1 MG PO DAILY SODIUM CHLORIDE 0.9% 1000 ML IV .Q24H [facility] TO MONITOR 1 EACH IV ASDIR HYDROcodone BITARTRATE/APAP 1 TAB PO Q6H PRN polyethylene glycoL 3350 1 PKT PO DAILY ASPIRIN 81 MG PO DAILY PREGABALIN 50 MG PO BID POTASSIUM CHLORIDE 20 MEQ PO ASDIR PRN METOPROLOL TARTRATE 12.5 MG PO BID ATORVASTATIN CALCIUM 80 MG PO BEDTIME THIAMINE HCL 100 MG PO DAILY traZODone HCL 100 MG PO BEDTIME POTASSIUM CHLORIDE IN WATER 10 MEQ IV ASDIR (PRN) ONDANSETRON HCL/PF 4 MG IV Q4H PRN DOCUSATE SODIUM 200 MG PO DAILY SODIUM PHOSPHATE with/in SODIUM CHLORIDE 0.9% 20 MM IV ASDIR (PRN) GLUCAGON 1 MG IM ASDIR PRN CALCIUM GLUC IN NACL, ISO-OSM 2 GM IV ASDIR (PRN) SODIUM PHOSPHATE with/in SODIUM CHLORIDE 0.9% 30 MM IV ASDIR (PRN) propofoL 1000 MG IV TITRATE fentaNYL 1000 MCG IV TITRATE SODIUM BICARBONATE 8.4% with/in DEXTROSE 5%-WATER 25 MEQ MISC ASDIR LABS COVID Asymp Ag (07/27/23 03:37) COVID 19 Asymptomatic IH AG NEGATIVE COMPREHENSIVE METABOLIC PANEL (07/27/23 03:31) SODIUM 139 POTASSIUM 3.8 CHLORIDE 103 CARBON DIOXIDE 23 GLUCOSE 100 BLOOD UREA NITROGEN 14 GLOMERULAR FILTRATION RATE >=60 max estimate CREATININE 1.00 TOTAL PROTEIN 5.5 L ALBUMIN 3.9 CALCIUM 8.7 D BILIRUBIN TOTAL 1.0 SGOT/AST 38 H SGPT/ALT 18 ALKALINE PHOSPHATASE 80.0 MAG (07/27/23 03:31) MAGNESIUM 1.9 PHOS (07/27/23 03:31) PHOSPHOROUS 4.5 FIB (07/27/23 03:31) FIBRINOGEN 404 H PTT (07/27/23 03:31) THROMBOPLASTIN TIME PARTIAL 29.6 D PROTHROMBIN TIME (07/27/23 03:31) PROTHROMBIN TIME PATIENT 12.6 INTERNATIONAL NORMAL RATIO 1.13 H CBC W/AUTO DIFF (07/27/23 03:31) WHITE BLOOD CELL 10.1 RED BLOOD CELL 3.64 L HEMOGLOBIN 11.8L L HEMATOCRIT 33.8L L MEAN CELL VOLUME 92.9 MEAN CELL HGB 32.4 H MEAN CELL HGB CONCENTRATION 34.9 RED CELL DISTRIBUTION WIDTH 13.3 PLATELET COUNT 264 MEAN PLATELET VOLUME 9.8 NEUTROPHIL % 71.9 LYMPHOCYTE % 19.5 L MONOCYTE % 7.5 EOSINOPHIL % 0.2 BASOPHIL % 0.5 NEUTROPHIL # 7.28 LYMPHOCYTE # 1.97 MONOCYTE # 0.76 EOSINOPHIL # 0.02 BASOPHIL # 0.05 LDH (07/27/23 03:31) LACTIC DEHYDROGENASE(LDH) 536 H LACTIC ACID (07/27/23 03:31) LACTIC ACID 1.40 LACTIC ACID (07/26/23 22:47) LACTIC ACID 1.30 CBC W/AUTO DIFF (07/26/23 22:46) WHITE BLOOD CELL 13.7H H RED BLOOD CELL 3.76 L HEMOGLOBIN 12.1L L HEMATOCRIT 35.9L L MEAN CELL VOLUME 95.5 H MEAN CELL HGB 32.2 H MEAN CELL HGB CONCENTRATION 33.7 RED CELL DISTRIBUTION WIDTH 13.2 PLATELET COUNT 282 MEAN PLATELET VOLUME 10.0 NEUTROPHIL % 83.9 H LYMPHOCYTE % 10.1 L MONOCYTE % 5.4 EOSINOPHIL % 0.0 BASOPHIL % 0.2 NEUTROPHIL # 11.45 H LYMPHOCYTE # 1.38 MONOCYTE # 0.74 EOSINOPHIL # 0.00 BASOPHIL # 0.03 FIB (07/26/23 22:45) FIBRINOGEN 363 MAG (07/26/23 22:45) MAGNESIUM 1.5 L LDH (07/26/23 22:45) LACTIC DEHYDROGENASE(LDH) 458 H PTT (07/26/23 22:45) THROMBOPLASTIN TIME PARTIAL 397.0 D*H PROTHROMBIN TIME (07/26/23 22:45) PROTHROMBIN TIME PATIENT 14.2 H INTERNATIONAL NORMAL RATIO 1.27 H BASIC METABOLIC PANEL (07/26/23 22:45) SODIUM 137 POTASSIUM 4.0 CHLORIDE 103 CARBON DIOXIDE 22 GLUCOSE 120H H BLOOD UREA NITROGEN 10 GLOMERULAR FILTRATION RATE >=60 max estimate CREATININE 1.00 CALCIUM 7.6 D L PHOS (07/26/23 22:45) PHOSPHOROUS 4.6 ACT (07/26/23 20:15) COAGULATION TIME ACTIVATED 262 H ACT (07/26/23 19:42) COAGULATION TIME ACTIVATED 330 H ACT (07/26/23 18:53) COAGULATION TIME ACTIVATED 287 H LACTIC ACID (07/26/23 17:57) LACTIC ACID 3.80 *H BLOOD GAS W/ELECTROLYTES (07/26/23 17:08) ARTERIAL BLOOD GAS PH 7.34 L ARTERIAL BLOOD GAS PCO2 29.3 L ARTERIAL BLOOD GAS PO2 57.8 L BICARBONATE TOTAL HCO3 15.5 L BASE EXCESS -8.7 L ARTERIAL FIO2 44.0 ABG VENT MODE NASAL CANNULA ALLENS TEST GOOD COLLATERAL FLOW SODIUM (POC) 132 L POTASSIUM (POC) 3.90 CHLORIDE (ARTERIAL) 101 GLUCOSE 201 H IONIZED CALCIUM 1.14 POC LACTIC ACID 3.97 H TCO2 ARTERIAL 16.4 L PTT (07/26/23 13:35) THROMBOPLASTIN TIME PARTIAL 33.6 CBC W/O DIFF (07/26/23 13:35) WHITE BLOOD CELL 11.5H H RED BLOOD CELL 4.18 L HEMOGLOBIN 13.3L L HEMATOCRIT 40.9L L MEAN CELL VOLUME 97.8 H MEAN CELL HGB 31.8 H MEAN CELL HGB CONCENTRATION 32.5 L RED CELL DISTRIBUTION WIDTH 13.2 PLATELET COUNT 309 PROTHROMBIN TIME (07/26/23 13:35) PROTHROMBIN TIME PATIENT 12.2 INTERNATIONAL NORMAL RATIO 1.09 BNP (07/26/23 13:35) B-TYPE NATRIURETIC PEPTIDE 1640 H TROPI (07/26/23 13:35) TROPONIN-I 51.2 LIVER FUNCTION PANEL (07/26/23 13:35) TOTAL PROTEIN 8.0 ALBUMIN 4.8 BILIRUBIN TOTAL 0.5 BILIRUBIN DIRECT 0.2 SGOT/AST 22 SGPT/ALT 21 ALKALINE PHOSPHATASE 106.0 LIPID PROFILE (CORONARY RISK) (07/26/23 13:35) TRIGLYCERIDES 112 CHOLESTEROL 119 HDL CHOLESTEROL 42 L LIPOPROTEIN LDL 48 CORONARY RISK FACTOR 2.83 BASIC METABOLIC PANEL (07/26/23 13:35) SODIUM 135L L POTASSIUM 4.6 CHLORIDE 102 CARBON DIOXIDE 25 GLUCOSE 104 BLOOD UREA NITROGEN 8L L GLOMERULAR FILTRATION RATE >=60 max estimate CREATININE 1.00 CALCIUM 8.9 MAG (07/26/23 13:35) MAGNESIUM 1.7 -- QUALITY -- -MEDICATIONS- - I attest that the foregoing medication list in the medical record is true, accurate, and complete to the best of my knowledge. -- ATTESTATION -- TIME SPENT ON PATIENT CARE: - Critical Care: time spent apart from any procedure 56 minutes Patient was critically ill due to: Cardiogenic shock, acute hypoxic respiratory failure. My treatment and management were: discussed on ICU multi-disciplinary rounds with nursing, pharmacy, respiratory therapy, case management and consultants including cardiology regarding management of cardiogenic shock and CAD requiring PCI. CARE ACTIVITIES / CARE COORDINATION: - I have reviewed the history and repeated the carias elements - I have seen and examined this patient - I have reviewed the progress in the clinical course since the last examination - I have discussed the patient's condition with other members of the care team Signed in PatientKeeper by Sherrie Stein MD on 07/27/23 at 17:24 at 1724 ATTENTION *EDITS and/or ADDENDA must be made in Patient Keeper for this note. * * Edits and ammendments created in [employer] are not visible * * in Patient Keeper or the legal medical record ([facility]). * RPT #: [id number] END OF REPORT [facility] 2023-07-26 22:51:00 [facility] ([facility]) Non-Operative Procedure Note REPORT #: [id number] REPORT STATUS: Signed DATE: 07/26/23 TIME: 2250 PATIENT: KOTA MONTES UNIT #: [id number] ROOM #: [id number] BED: 1 : 61 AGE: 62 SEX: M ATTEND: Keenan Kumari MD ADM AUTHOR: Moo Duke ATTENTION *EDITS and/or ADDENDA must be made in Patient Keeper for this note. * * Edits and ammendments created in [employer] are not visible * * in Patient Keeper or the legal medical record ([facility]). * -- CO-SIGNATURE -- COMMENTS: I was present for procedure and agree with PA's note Signed in PatientKeeper by MARK ANTHONY COPELAND MD on 07/26/23 at 23:12 -- PROCEDURE -- PERFORMED BY: Moo Duke OTHER: Name of the procedure: Arterial Line Catheter Placement Site/Location: [X ] Right radial artery [ ] Left radial artery [ ] Right axillary artery [ ] Left axillary artery [ ] Right femoral artery [ ] Left femoral artery Consent: [ ] Risk and benefit explained in detail and written consent obtained. [X] emergent Indication: hemodynamic monitoring Pre-procedure diagnosis: cardiogenic shock, respiratory failure Post-procedure diagnosis: as above. Description: The site was cleaned with chlorhexidine and draped using sterile technique wearing sterile gloves, full gown and mask. 1 mL of 1 % Lidocaine instilled subcutaneously into the intended area of insertion. Needle then introduced into the artery under direct ultrasound guidance and pulsatile flow noted before inserting guide wire and then the arterial catheter was inserted using standard Seldinger technique. Wire removed and confirmed intact and arterial catheter connected to the transducer and arterial wave form confirmed on monitor. Catheter then sutured in place and sterile dressing applied. Patient tolerated the procedure well without any immediate complication. Signed in PatientKeeper by Moo Duke on 07/26/23 at 22:54 Cosigned by MARK ANTHONY COPELAND MD on 07/26/23 at 23:12 at 2312 at 2312 ATTENTION *EDITS and/or ADDENDA must be made in Patient Keeper for this note. * * Edits and ammendments created in [facility] are not visible * * in Patient Keeper or the legal medical record ([facility]). * RPT #: [id number] END OF REPORT [facility] 2023-07-26 22:48:00 [facility] ([facility]) Central Line Placement Note REPORT #: [id number] REPORT STATUS: Signed DATE: 07/26/23 TIME: 2247 PATIENT: KOTA MONTES UNIT #: [id number] ROOM #: [id number] BED: 1 : 61 AGE: 62 SEX: M ATTEND: Keenan Kumari MD ADM AUTHOR: Moo Duke ATTENTION *EDITS and/or ADDENDA must be made in Patient Keeper for this note. * * Edits and ammendments created in [employer] are not visible * * in Patient Keeper or the legal medical record ([facility]). * -- CO-SIGNATURE -- COMMENTS: I was present for procedure and agree with PA's note Signed in PatientKeeper by MARK ANTHONY COPELAND MD on 07/26/23 at 23:12 -- CENTRAL LINE PLACEMENT -- PRE-PROCEDURE DIAGNOSIS: cardiogenic shock, respiratory failure POST-PROCEDURE DIAGNOSIS: cardiogenic shock, respiratory failure LUMEN TYPE: Triple GUIDE WIRE REMOVED: Yes ADDITIONAL COMMENTS: Name of the procedure: Central Venous Catheter Site/Location: [ ] Right internal jugular vein [X] Left internal jugular vein [ ] Right subclavian vein [ ] Left subclavian vein [ ] Right femoral vein [ ] Left femoral vein Consent: [ ] Risk and benefit explained in detail and written consent obtained. [X ] emergent Indications: Central Venous Access Pre-procedure diagnosis: septic shock, respiratory failure Post-procedure diagnosis: as above. A surgical cap, mask with protective eyewear, full gown, and sterile gloves were worn throughout the procedure. The patient was placed in the supine position. The left anterior area was prepped using chlorhexidine scrub and draped in a sterile fashion using a full drape and sterile probe cover and sterile gel used. The vein was identified using the ultrasound. Anesthesia was achieved over the vein using 1% lidocaine. Introducer needle was inserted into the vein under direct ultrasound visualization. Venous blood was withdrawn. The syringe was removed after a guidewire was advanced into the introducer needle. The guidewire was visualization by ultrasound. A small incision was made at the skin surface with a scalpel and the introducer needle was exchanged for a dilator over the guidewire. After appropriate dilation was obtained, the dilator was exchanged over the wire for central venous catheter. The wire was removed and the catheter was sutured in place at 20 cm. All ports aspirated and flushed as appropriate. Sterile dressing applied. The patient tolerated the procedure without any immediate complication. At the time of procedure completion, all ports were aspirated and flushed properly. A post-procedure chest x-ray: [ ] done and confirmed the tip position at the SVC. [ X] pending. [ ] not indicated. Signed in PatientKeeper by Moo Duke on 07/26/23 at 22:51 Cosigned by MARK ANTHONY COPELAND MD on 07/26/23 at 23:12 at 2312 at 231 ATTENTION *EDITS and/or ADDENDA must be made in Patient Keeper for this note. * * Edits and ammendments created in [employer] are not visible * * in Patient Keeper or the legal medical record ([facility]). * RPT #: [id number] END OF REPORT [facility] 2023-07-26 22:44:00 [facility] ([facility]) Critical Care H P REPORT #: [id number] REPORT STATUS: Signed DATE: 07/26/23 TIME: 2243 PATIENT: KOTA MONTES UNIT #: [id number] ROOM #: [id number] BED: 1 : 61 AGE: 62 SEX: M ATTEND: Keenan Kumari MD ADM AUTHOR: Mark Anthony Copeland MD ATTENTION *EDITS and/or ADDENDA must be made in Patient Keeper for this note. * * Edits and ammendments created in [employer] are not visible * * in Patient Keeper or the legal medical record ([facility]). * -- HISTORY -- ADMISSION DATE: 2023-07-26 PRIMARY CARE PROVIDER: Kurtis Lynch MD HPI: 62 y/o M with HTN, HLD, CAD and NM s/p PCI 2005, 06/2022, 12/24/2022, S/P CABG x 2 BOGGS to LAD and SVG to OM (Dr. Pike) in 06/13/2023, Hx of alcohol abuse, and nicotine use who presented to ER by EMS c/o SOB and chest pain, with EKG concerning for acute NM. Pt seen by cardiology, pt reports OSB started yesterday, progressive and c/o chest pain since 12:30 pm today, continuous, moderate to severe, no radiation, heaviness, decreased with pain medication, at rest, no specific exacerbating factors, and associated with SOB. No palpitations, lightheadedness, no LOC, and no sweating. The patient was brought to ER, vitals were normal, O2 in mid 90s on RA. EMS gave him ASA 325 and fentanyl 100 mcg IV. In ER, STEMI was activated. In the ER, the patient developed acute respiratory distress, O2 desaturation, requiringO2 via NR. Stat echo showed LV EF <20%.Pt taken to laboratory analyst, intubated for resp distress, Impella placed and S/P LHC: paten grafts (BOGGS to LAD and sVG to OM), mid and distal RCA intent stenosis s/p PCIs upon ICU arrival pt intubated, sedated, on propofol, fentanyl, bumex gtt, on DAPT, sttain noted vent settingd f/u labs and ABG PAST MEDICAL HISTORY: HTN, HLD, CAD and NM PAST SURGICAL HISTORY: s/p PCI 2005, 06/2022, 12/24/2022, S/P CABG x 2 BOGGS to LAD and SVG to OM (Dr. Pike) in 06/13/2023 -- ALLERGIES/HOME MEDS -- ALLERGIES: No Known Allergies (UNKNOWN - Allergy) HOME MEDICATIONS: Aspirin EC Tab (Ecotrin Tab) 81 MG PO DAILY Atorvastatin Tab (Lipitor Tab) 80 MG PO BEDTIME Clopidogrel Tab (Plavix Tab) 75 MG PO DAILY Folic Acid Tab (Folvite Tab) 1 MG PO DAILY Furosemide Tab (Lasix Tab) 20 MG PO QAM HYDROcodone/APAP 10/325 Tab (Corinne 10/325 Tab) 1 TAB PO Q6H Lexapro tab (escitalopram oxalate) 20 MG PO DAILY Methocarbamol Tab (Robaxin Tab) 1000 MG PO TID Metoprolol Tartrate Tab (Lopressor Tab) 12.5 MG PO BID Potassium Chlor Tab.ER (K Dur Tab) 20 MEQ PO DAILY Pregabalin Cap (Lyrica Cap) 50 MG PO BID Thiamine Tab (Vitamin B-1 Tab) 100 MG PO DAILY traZODone Tab (Desyrel Tab) 100 MG PO BEDTIME -- SUBJECTIVE -- UNABLE TO OBTAIN REVIEW OF SYSTEMS -- OBJECTIVE -- VITALS (07/24 22:44 - 07/25 22:44): Temperature F: 98.9 Temperature source: Oral Pulse Rate 91 (85 - 135) Respiratory rate: 25 (16 - 25) Blood pressure: 170/103 (129/83 - 170/103) Blood pressure source: Monitor -EXAM- GENERAL: Well developed, well nourished, in no apparent distress. HEAD: Normocephalic, atraumatic. CHEST: Grossly normal appearance. LUNGS: Clear bilaterally with normal respiratory effort. HEART: Regular rate and rhythm, normal S1, S2, no murmurs, no rubs, no gallops, no clicks. ABDOMEN: Soft, non-tender, no organomegaly, no masses noted. EXTREMITIES: No clubbing, no cyanosis, no edema. NEUROLOGICAL: sedated, unable to assess PULSES: Pulses normal in all extremities. GENITOURINARY: Normal external genitalia. SKIN: Intact without significant lesions, or rashes. -- DATA -- LABS ACT (07/26/23 20:15) COAGULATION TIME ACTIVATED 262 H ACT (07/26/23 19:42) COAGULATION TIME ACTIVATED 330 H ACT (07/26/23 18:53) COAGULATION TIME ACTIVATED 287 H LACTIC ACID (07/26/23 17:57) LACTIC ACID 3.80 *H BLOOD GAS W/ELECTROLYTES (07/26/23 17:08) ARTERIAL BLOOD GAS PH 7.34 L ARTERIAL BLOOD GAS PCO2 29.3 L ARTERIAL BLOOD GAS PO2 57.8 L BICARBONATE TOTAL HCO3 15.5 L BASE EXCESS -8.7 L ARTERIAL FIO2 44.0 ABG VENT MODE NASAL CANNULA ALLENS TEST GOOD COLLATERAL FLOW SODIUM (POC) 132 L POTASSIUM (POC) 3.90 CHLORIDE (ARTERIAL) 101 GLUCOSE 201 H IONIZED CALCIUM 1.14 POC LACTIC ACID 3.97 H TCO2 ARTERIAL 16.4 L BNP (07/26/23 13:35) B-TYPE NATRIURETIC PEPTIDE 1640 H TROPI (07/26/23 13:35) TROPONIN-I 51.2 LIVER FUNCTION PANEL (07/26/23 13:35) TOTAL PROTEIN 8.0 ALBUMIN 4.8 BILIRUBIN TOTAL 0.5 BILIRUBIN DIRECT 0.2 SGOT/AST 22 SGPT/ALT 21 ALKALINE PHOSPHATASE 106.0 PTT (07/26/23 13:35) THROMBOPLASTIN TIME PARTIAL 33.6 LIPID PROFILE (CORONARY RISK) (07/26/23 13:35) TRIGLYCERIDES 112 CHOLESTEROL 119 HDL CHOLESTEROL 42 L LIPOPROTEIN LDL 48 CORONARY RISK FACTOR 2.83 CBC W/O DIFF (07/26/23 13:35) WHITE BLOOD CELL 11.5H H RED BLOOD CELL 4.18 L HEMOGLOBIN 13.3L L HEMATOCRIT 40.9L L MEAN CELL VOLUME 97.8 H MEAN CELL HGB 31.8 H MEAN CELL HGB CONCENTRATION 32.5 L RED CELL DISTRIBUTION WIDTH 13.2 PLATELET COUNT 309 PROTHROMBIN TIME (07/26/23 13:35) PROTHROMBIN TIME PATIENT 12.2 INTERNATIONAL NORMAL RATIO 1.09 BASIC METABOLIC PANEL (07/26/23 13:35) SODIUM 135L L POTASSIUM 4.6 CHLORIDE 102 CARBON DIOXIDE 25 GLUCOSE 104 BLOOD UREA NITROGEN 8L L GLOMERULAR FILTRATION RATE >=60 max estimate CREATININE 1.00 CALCIUM 8.9 MAG (07/26/23 13:35) MAGNESIUM 1.7 -- ASSESSMENT AND PLAN -- GENERAL ASSESSMENT: 62 y/o M with HTN, HLD, CAD and NM s/p PCI 2005, 06/2022, 12/24/2022, S/P CABG x 2 BOGGS to LAD and SVG to OM (Dr. Pike) in 06/13/2023, Hx of alcohol abuse, and nicotine use who presented to ER by EMS c/o SOB and chest pain, pt now intubation for procedure, S/P C 07/25: patent grafts (BOGGS to LAD and sVG to OM), mid and distal RCA intent stenosis s/p PCIs with MCS Impella in place, on MV, sedation, DAPT statin, Cardiology following, adding nicotine patch and Banana bag on PPI for GI ppx and heparin for DVT ppx I spent 45m of critical care time, excluding procedures Signed in PatientKeeper by Mark Anthony Copeland MD on 07/26/23 at 23:11 at 2311 ATTENTION *EDITS and/or ADDENDA must be made in Patient Keeper for this note. * * Edits and ammendments created in [facility] are not visible * * in Patient Keeper or the legal medical record (HPF). * RPT #: [id number] END OF REPORT [facility] 2023-07-26 20:00:00 [facility] ([facility]) Post Intubation Procedure Note REPORT #: [id number] REPORT STATUS: Signed DATE: 07/26/23 TIME: 1999 PATIENT: KOTA MONTES UNIT #: [id number] ROOM #: [facility] BED: 1 : 61 AGE: 62 SEX: M ATTEND: Keenan Kumari MD ADM AUTHOR: Sherrie Stein MD ATTENTION *EDITS and/or ADDENDA must be made in Patient Keeper for this note. * * Edits and ammendments created in [employer] are not visible * * in Patient Keeper or the legal medical record (HPF). 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 INDICATIONS: Airway protection, cardiogenic shock PT RECEIVING SUPPLEMENTAL O2: NRB CORMACK-LEHANE CLASS: - Grade 2b: only posterior extremity of glottis seen, or only arytenoid PRE-OXYGENATION: Yes RAPID SEQUENCE INDUCTION (RSI): Yes IV INDUCTION: Yes MEDS GIVEN: Propofol 100, rocuronium 100 TECHNIQUE: Direct LARYNGOSCOPE BLADE: Mac 4 NUMBER OF ATTEMPTS: 2 BILATERAL BREATH SOUNDS: Yes ETC02 DETECTOR COLOR CHANGE: Yes ET TUBE SIZE: 8.0 ET TUBE TAPED AT THE LIP AT: 24 cm VENILATOR SETTINGS: 15/5, 22, 100% VENTILATOR MODE: Pressure control CHEST X-RAY TO FOLLOW BY ATTENDING: Yes Signed in PatientKeeper by Sherrie Stein MD on 07/26/23 at 20:02 at 2001 ATTENTION *EDITS and/or ADDENDA must be made in Patient Keeper for this note. * * Edits and ammendments created in [facility] are not visible * * in Patient Keeper or the legal medical record ([facility]). * RPT #: [id number] END OF REPORT [facility] 2023-07-26 19:17:00 [facility] ([facility]) Med Order Sheet REPORT #: [id number] REPORT STATUS: Signed DATE: 07/26/23 TIME: 1916 PATIENT: KOTA MONTES UNIT #: [id number] ROOM #: [id number] BED: 1 : 61 AGE: 62 SEX: M ATTEND: Keenan Kumari MD ADM AUTHOR: Keenan Kumari MD ATTENTION *EDITS and/or ADDENDA must be made in Patient Keeper for this note. * * Edits and ammendments created in [facility] are not visible * * in Patient Keeper or the legal medical record ([facility]). * Admission Medication Reconciliation -- CONTINUED / CHANGED HOME MEDICATIONS -- Home: Aspirin EC Tab (Ecotrin Tab) 81 MG PO DAILY Hosp: Aspirin EC Tab (Ecotrin Tab) 81 MG PO DAILY Home: Atorvastatin Tab (Lipitor Tab) 80 MG PO BEDTIME Hosp: Atorvastatin Tab (Lipitor Tab) 80 MG PO BEDTIME Home: Clopidogrel Tab (Plavix Tab) 75 MG PO DAILY Hosp: Clopidogrel Tab (Plavix Tab) 75 MG PO DAILY Home: Folic Acid Tab (Folvite Tab) 1 MG PO DAILY Hosp: Folic Acid Tab (Folvite Tab) 1 MG PO DAILY Home: Furosemide Tab (Lasix Tab) 20 MG PO QAM Hosp: Existing: Bumetanide Drip (Bumex Drip) 10MG 1 MG/HR IV .Q10H stopping on 08/24 at 17:16in Sodium Chloride 0.9% (NS) 60ML (Total 100 ML) Home: HYDROcodone/APAP 10/325 Tab (Corinne 10/325 Tab) 1 TAB PO Q6H X 7 days PRN pain scale 7-10 (use 1st) Hosp: HYDROcodone/APAP 10/325 Tab (Corinne 10/325 Tab) 1 TAB PO Q6H PRN pain scale 7-10 (use 1st) Home: Lexapro tab (escitalopram oxalate) 20 MG PO DAILY Hosp: Escitalopram Tab (Lexapro Tab) 20 MG PO DAILY Home: Methocarbamol Tab (Robaxin Tab) 1000 MG PO TID Hosp: Methocarbamol Tab (Robaxin Tab) 1000 MG PO TID Home: Metoprolol Tartrate Tab (Lopressor Tab) 12.5 MG PO BID Hosp: Metoprolol Tartrate Tab (Lopressor Tab) 12.5 MG PO BID Home: Potassium Chlor Tab.ER (K Dur Tab) 20 MEQ PO DAILY Hosp: Existing: KCl 10mEq/50mL IVPB (Potassium Chloride 10mEq/50mL IVPB) 10MEQ 50 MLS/HR IV ASDIR PRN electrolyte sliding scale stopping on 08/24 at 17:31 Hosp: Existing: Potassium Chloride packet (K-Marylu packet) 20MEQ PO ASDIR PRN electrolyte sliding scale stopping on 08/24 at 17:16 Home: Pregabalin Cap (Lyrica Cap) 50 MG PO BID Hosp: Pregabalin Cap (Lyrica Cap) 50 MG PO BID Home: Thiamine Tab (Vitamin B-1 Tab) 100 MG PO DAILY Hosp: Thiamine Tab (Vitamin B-1 Tab) 100 MG PO DAILY Home: traZODone Tab (Desyrel Tab) 100 MG PO BEDTIME Hosp: traZODone Tab (Desyrel Tab) 100 MG PO BEDTIME at 1917 ATTENTION *EDITS and/or ADDENDA must be made in Patient Keeper for this note. * * Edits and ammendments created in [employer] are not visible * * in Patient Keeper or the legal medical record (HPF). * RPT #: [id number] END OF REPORT [facility] 2023-07-26 19:14:00 [facility] ([facility]) Hospitalist Cassi Lemons REPORT #: [id number] REPORT STATUS: Signed DATE: 07/26/23 TIME: 1913 PATIENT: KOTA MONTES UNIT #: [id number] ROOM #: P.[id number] BED: 1 : 61 AGE: 62 SEX: M ATTEND: Keenan Kumari MD ADM AUTHOR: Keenan Kumari MD ATTENTION *EDITS and/or ADDENDA must be made in Patient Keeper for this note. * * Edits and ammendments created in [employer] are not visible * * in Patient Keeper or the legal medical record (HPF). * -- HISTORY -- ADMISSION DATE: 2023-07-26 PRIMARY CARE PROVIDER: Kurtis Lynch MD HPI: 62 y/o M with HTN, HLD, CAD and NM s/p PCI 2005, 06/2022, 12/24/2022, S/P CABG x 2 BOGGS to LAD and SVG to OM (Dr. Pike) in 06/13/2023, Hx of alcohol abuse, and nicotine use who presented to ER by EMS c/o SOB and chest pain, with EKG concerning for acute NM. Pt seen by cardiology, pt reports OSB started yesterday, progressive and c/o chest pain since 12:30 pm today, continuous, moderate to severe, no radiation, heaviness, decreased with pain medication, at rest, no specific exacerbating factors, and associated with SOB. No palpitations, lightheadedness, no LOC, and no sweating. The patient was brought to ER, vitals were normal, O2 in mid 90s on RA. EMS gave him ASA 325 and fentanyl 100 mcg IV. In ER, STEMI was activated. PAST MEDICAL HISTORY: HTN, HLD, CAD and NM s/p PCI 2005, 06/2022, 12/24/2022, S/P CABG x 2 BOGGS to LAD and SVG to OM (Dr. Pike) in 06/13/2023, Hx of alcohol abuse, and nicotine PAST SURGICAL HISTORY: CABG and PCI FAMILY HISTORY: HTN, dm2 -SOCIAL HISTORY- -VAPING/INHALED SOLVENTS- DETAILS/COMMENTS: nicotine -ALCOHOL USE- DETAILS/COMMENTS: social -- ALLERGIES/HOME MEDS -- ALLERGIES: No Known Allergies (UNKNOWN - Allergy) HOME MEDICATIONS: Aspirin EC Tab (Ecotrin Tab) 81 MG PO DAILY Atorvastatin Tab (Lipitor Tab) 80 MG PO BEDTIME Clopidogrel Tab (Plavix Tab) 75 MG PO DAILY Folic Acid Tab (Folvite Tab) 1 MG PO DAILY Furosemide Tab (Lasix Tab) 20 MG PO QAM HYDROcodone/APAP 10/325 Tab (Corinne 10/325 Tab) 1 TAB PO Q6H Lexapro tab (escitalopram oxalate) 20 MG PO DAILY Methocarbamol Tab (Robaxin Tab) 1000 MG PO TID Metoprolol Tartrate Tab (Lopressor Tab) 12.5 MG PO BID Potassium Chlor Tab.ER (K Dur Tab) 20 MEQ PO DAILY Pregabalin Cap (Lyrica Cap) 50 MG PO BID Thiamine Tab (Vitamin B-1 Tab) 100 MG PO DAILY traZODone Tab (Desyrel Tab) 100 MG PO BEDTIME -- SUBJECTIVE -- -REVIEW OF SYSTEMS- COMMENT: 10 point ROS negative unless noted. -- OBJECTIVE -- VITALS (07/24 19:14 - 07/25 19:14): Temperature F: 98.9 Temperature source: Oral Pulse Rate 110 (85 - 135) Respiratory rate: 25 (16 - 25) Blood pressure: 170/103 (129/83 - 170/103) Blood pressure source: Monitor -EXAM- GENERAL: Well developed, well nourished, in no apparent distress. HEAD: Normocephalic, atraumatic. EARS: grossly normal hearing. NOSE: No deformity, no discharge MOUTH: Oropharynx without deformities or lesions, normal mucosa. CHEST: sternotomy site c/d/i, chest tubes and TPW noted LUNGS: Clear bilaterally with normal respiratory effort. HEART: Regular rate and rhythm, normal S1, S2, no murmurs EXTREMITIES: No clubbing, no cyanosis, no edema. NEUROLOGICAL: No focal deficits, cranial nerves II-XII grossly intact PSYCHIATRIC: Alert and oriented to time, person, place. -- DATA -- LABS ACT (07/26/23 18:53) COAGULATION TIME ACTIVATED 287 H LACTIC ACID (07/26/23 17:57) LACTIC ACID 3.80 *H BLOOD GAS W/ELECTROLYTES (07/26/23 17:08) ARTERIAL BLOOD GAS PH 7.34 L ARTERIAL BLOOD GAS PCO2 29.3 L ARTERIAL BLOOD GAS PO2 57.8 L BICARBONATE TOTAL HCO3 15.5 L BASE EXCESS -8.7 L ARTERIAL FIO2 44.0 ABG VENT MODE NASAL CANNULA ALLENS TEST GOOD COLLATERAL FLOW SODIUM (POC) 132 L POTASSIUM (POC) 3.90 CHLORIDE (ARTERIAL) 101 GLUCOSE 201 H IONIZED CALCIUM 1.14 POC LACTIC ACID 3.97 H TCO2 ARTERIAL 16.4 L LIPID PROFILE (CORONARY RISK) (07/26/23 13:35) TRIGLYCERIDES 112 CHOLESTEROL 119 HDL CHOLESTEROL 42 L LIPOPROTEIN LDL 48 CORONARY RISK FACTOR 2.83 BNP (07/26/23 13:35) B-TYPE NATRIURETIC PEPTIDE 1640 H CBC W/O DIFF (07/26/23 13:35) WHITE BLOOD CELL 11.5H H RED BLOOD CELL 4.18 L HEMOGLOBIN 13.3L L HEMATOCRIT 40.9L L MEAN CELL VOLUME 97.8 H MEAN CELL HGB 31.8 H MEAN CELL HGB CONCENTRATION 32.5 L RED CELL DISTRIBUTION WIDTH 13.2 PLATELET COUNT 309 TROPI (07/26/23 13:35) TROPONIN-I 51.2 LIVER FUNCTION PANEL (07/26/23 13:35) TOTAL PROTEIN 8.0 ALBUMIN 4.8 BILIRUBIN TOTAL 0.5 BILIRUBIN DIRECT 0.2 SGOT/AST 22 SGPT/ALT 21 ALKALINE PHOSPHATASE 106.0 PROTHROMBIN TIME (07/26/23 13:35) PROTHROMBIN TIME PATIENT 12.2 INTERNATIONAL NORMAL RATIO 1.09 BASIC METABOLIC PANEL (07/26/23 13:35) SODIUM 135L L POTASSIUM 4.6 CHLORIDE 102 CARBON DIOXIDE 25 GLUCOSE 104 BLOOD UREA NITROGEN 8L L GLOMERULAR FILTRATION RATE >=60 max estimate CREATININE 1.00 CALCIUM 8.9 PTT (07/26/23 13:35) THROMBOPLASTIN TIME PARTIAL 33.6 MAG (07/26/23 13:35) MAGNESIUM 1.7 -- ASSESSMENT AND PLAN -- PROBLEMS: 1: Coronary artery disease 2: Chest pain, unspecified type 3: Non-ST elevation (NSTEMI) myocardial infarction 4: Alcohol abuse with unspecified alcohol-induced disorder 5: Unstable angina 6: Cervicalgia 7: Alcohol abuse 8: Heart failure, unspecified 9: Chronic disease anemia 10: Hypertension, essential ADDITIONAL COMMENTS: Cardio consulted plan to take to procedure home meds ICU supportive care Keenan Kumari MD Internal Medicine Signed in PatientKeeper by Keenan Kumari MD on 07/27/23 at 22:54 at 2254 ATTENTION *EDITS and/or ADDENDA must be made in Patient Keeper for this note. * * Edits and ammendments created in [facility] are not visible * * in Patient Keeper or the legal medical record ([facility]). * RPT #: [id number] END OF REPORT [facility] 2023-07-26 15:35:00 [facility] ([facility]) Cardiology Consultation REPORT #: [id number] REPORT STATUS: Signed DATE: 07/26/23 TIME: 1535 PATIENT: KOTA MONTES UNIT #: [id number] ROOM #: P.[id number] BED: 1 : 61 AGE: 62 SEX: M ATTEND: Keenan Kumari MD ADM AUTHOR: Rochelle Powell MD CF1 ATTENTION *EDITS and/or ADDENDA must be made in Patient Keeper for this note. * * Edits and ammendments created in [employer] are not visible * * in Patient Keeper or the legal medical record ([facility]). * -- CO-SIGNATURE -- COMMENTS: I have personally seen and examined the patient independently, and reviewed the patient's history, exam, and all cardiac and laboratory data on 07/26/23. I agree with the history, physical, and the assessment and plan as outlined by Rochelle Olivo MD, Cardiovascular Fellow. Cardiogenic shock Acue decompensated HF (HFrEF) Acute pulmonary edema Acute hypoxemic respiratory failure, on O2 via NRB Hx of CAD, s/o CABG x2 06/[address] Pike as above Lactic acidosis HTN HLD NSTEMI Patient has been admitted with worsening chest pain and shortness of breath. NT proBNP is above 6000. His condition has critically worsened in the emergency room and he is now on nonrebreather. I have asked to initiate heparin drip for his NSTEMI, also to initiate dobutamine to treat his cardiogenic shock. -I have extensively discussed the patient's treatment with the patient and his . Will plan to take him to the [facility] for emergent MCS placement and performing coronary angiogram and possible PCI. Patient's agrees with our treatment plan. I will also mention the risk and benefits of the procedure that include heart attack, stroke, . The patient's verbalizes understanding and wants to go ahead with the procedure. I have informed Dr. Ramírez and Dr. Lynch -who also agree with the plan. Critical Care Time: The patient is critically ill with one or more vital organ system dysfunction resulting in a high probability of imminent or life-threatening deterioration in the patient's condition. I spent >70 minutes of critical care time on the following activities: Providing direct patient care, reviewing the EMR, reviewing hemodynamic data, reviewing telemetry data, reviewing all other available cardiac and laboratory data, discussing the patient's care with the multi-disciplinary team, discharge planning, counselling the patient/and or family member, and documenting the relevant findings, assessment, and recommendations in the patient's electronic health record. Time is separate from any billable procedures. Signed in PatientKeeper by MALACHI FITZGERALD MD on 07/28/23 at 21:13 -- ASSESSMENT AND PLAN -- GENERAL ASSESSMENT: 62 y/o M with HTN, HLD, CAD and NM s/p PCI 2005, 06/2022, 12/24/2022, S/P CABG x 2 BOGGS to LAD and SVG to OM (Dr. Pike) in 06/13/2023, Hx of alcohol abuse, and nicotine use who presented to ER by EMS c/o SOB and chest pain, with EKG concerning for acute NM. I evaluated the patient in the ER he reports OSB started yesterday, progressive and c/o chest pain since 12:30 pm today, continuous, mov=derate to severe, no radiation, heaviness, decreased with pain medication, at rest, no specific exacerbating factors, and associated with SOB. No palpitations, lightheadedness, no LOC, and no sweating. The patient was brought to ER, vitals were normal, O2 in mid 90s on RA. The patient refuses to take nitro saying it does not help him, EMS gave him ASA 325 and fentanyl 100 mcg IV. In ER, STEMI was activated. The patent was evaluated emergently in ER, no STEMI criteria per ECG. While in the ER, the patient developed acute respiratory distress, O2 desaturation, requiringO2 via NR. Stat echo showed LV EF <20%. Echo 06/2023: Estimated EF 30-34% 07/25: Trop 51.2 BNP: 1640 CXR: CHF with mild pulmonary edema EKG: L BB, No criteria st elevation Dx: Cardiogenic shock Acue decompensated HF (HFrEF) Acute pulmonary edema Acute hypoxemic respiratory failure, on O2 via NRB Hx of CAD, s/o CABG x2 06/[address] Pkie as above Lactic acidosis HTN HLD Plan: The patient was taken emergently to laboratory analyst. Impella was inserted (flow 3.4) The patient had to be intubated and be on invasive mechanical ventilation. S/P LHC: paten grafts (BOGGS to LAD and sVG to OM), mid and distal RCA intent stenosis s/p PCIs Continue hemodynamic with MCS/Imeplla and inotropic support, monitor perfusion studies. DAPT with ASA and Plavix, high intensity statin Continue therapeutic anticoagulation with heparin Start diuresis with bumex gtt Monitor, renal function, and replace lyes. Adequate sedation and analgesia ICU level of care. -- HISTORY -- CONSULT REQUESTED BY: Keenan Kumari MD DATE/TIME AT BEDSIDE: 2023-07-26 REASON FOR CONSULT: acute NM CHIEF COMPLAINT: SOB and chest pain HPI: 62 y/o M with HTN, HLD, CAD and NM s/p PCI 2005, 06/2022, 12/24/2022, S/P CABG x 2 BOGGS to LAD and SVG to OM (Dr. Pike) in 06/13/2023, Hx of alcohol abuse, and nicotine use who presented to ER by EMS c/o SOB and chest pain, with EKG concerning for acute NM. I evaluated the patient in the ER he reports OSB started yesterday, progressive and c/o chest pain since 12:30 pm today, continuous, mov=derate to severe, no radiation, heaviness, decreased with pain medication, at rest, no specific exacerbating factors, and associated with SOB. No palpitations, lightheadedness, no LOC, and no sweating. The patient was brought to ER, vitals were normal, O2 in mid 90s on RA. The patient refuses to take nitro saying it does not help him, EMS gave him ASA 325 and fentanyl 100 mcg IV. In ER, STEMI was activated. The patent was evaluated emergently in ER, no STEMI criteria per ECG. While in the ER, the patient developed acute respiratory distress, O2 desaturation, requiringO2 via NR. Stat echo showed LV EF <20%. PAST MEDICAL HISTORY: HTN, HLD, CAD and NM PAST SURGICAL HISTORY: s/p PCI 2005, 06/2022, 12/24/2022, S/P CABG x 2 BOGGS to LAD and SVG to OM (Dr. Pike) in 06/13/2023 FAMILY HISTORY: + for heart diseases -SOCIAL HISTORY- -TOBACCO USE- DETAILS/COMMENTS: Denied -ALCOHOL USE- DETAILS/COMMENTS: Denied -DRUG USE- DETAILS/COMMENTS: Denied -- ALLERGIES/HOME MEDS -- ALLERGIES: No Known Allergies (UNKNOWN - Allergy) HOME MEDICATIONS: Aspirin EC Tab (Ecotrin Tab) 81 MG PO DAILY Atorvastatin Tab (Lipitor Tab) 80 MG PO BEDTIME Clopidogrel Tab (Plavix Tab) 75 MG PO DAILY Folic Acid Tab (Folvite Tab) 1 MG PO DAILY Furosemide Tab (Lasix Tab) 20 MG PO QAM HYDROcodone/APAP 10/325 Tab (Corinne 10/325 Tab) 1 TAB PO Q6H Lexapro tab (escitalopram oxalate) 20 MG PO DAILY Methocarbamol Tab (Robaxin Tab) 1000 MG PO TID Metoprolol Tartrate Tab (Lopressor Tab) 12.5 MG PO BID Potassium Chlor Tab.ER (K Dur Tab) 20 MEQ PO DAILY Pregabalin Cap (Lyrica Cap) 50 MG PO BID Thiamine Tab (Vitamin B-1 Tab) 100 MG PO DAILY traZODone Tab (Desyrel Tab) 100 MG PO BEDTIME -- SUBJECTIVE -- -REVIEW OF SYSTEMS- COMMENT: 10 systems were reviewed and are negative -- OBJECTIVE -- VITALS (07/24 15:35 - 07/25 15:35): Temperature F: 98.9 Temperature source: Oral Pulse Rate 85 (85 - 92) Respiratory rate: 16 (16 - 18) Blood pressure: 129/83 (129/83 - 144/88) Blood pressure source: Monitor -EXAM- GENERAL: Well developed, well nourished, in no apparent distress. HEAD: Normocephalic, atraumatic. EYES: PERRL, conjunctiva and sclera clear, without nystagmus, lids normal. EARS: Grossly normal hearing. NOSE: No deformity, no discharge, no inflammation, no lesions. MOUTH: Oropharynx without deformities or lesions, normal mucosa. NECK: Supple. No JVD. Trachea midline. CHEST: Surgical scar noted LUNGS: Clear bilaterally with normal respiratory effort. no wheezes HEART: Regular rate and rhythm, normal S1, S2, no murmurs, no rubs, no gallops, no clicks. ABDOMEN: Soft, non-tender, no organomegaly, no masses noted. MUSCULOSKELETAL: No deformity, joint ROM grossly normal. EXTREMITIES: No cyanosis, no edema. NEUROLOGICAL: Aox3. No focal deficits. PULSES: Pulses normal in all extremities. SKIN: Intact without significant lesions, or rashes. -- DATA -- MEDICATIONS HEPARIN SODIUM,PORCINE 4000 UNIT IV ONCE SODIUM CHLORIDE 0.9% 1000 ML IV .Q24H HEPARIN SODIUM,PORCINE 3000 UNIT IV ASDIR (PRN) SODIUM CHLORIDE 0.9% 1000 ML IV .Q24H HEPARIN SODIUM,PORCINE 5000 UNIT IV ASDIR (PRN) HEPARIN PHARMACY TO MONITOR 1 EACH IV ASDIR HEPARIN/SOD CHLOR 0.45% 75612 UNITS IV TITRATE LABS LIPID PROFILE (CORONARY RISK) (07/26/23 13:35) TRIGLYCERIDES 112 CHOLESTEROL 119 HDL CHOLESTEROL 42 L LIPOPROTEIN LDL 48 CORONARY RISK FACTOR 2.83 BNP (07/26/23 13:35) B-TYPE NATRIURETIC PEPTIDE 1640 H CBC W/O DIFF (07/26/23 13:35) WHITE BLOOD CELL 11.5H H RED BLOOD CELL 4.18 L HEMOGLOBIN 13.3L L HEMATOCRIT 40.9L L MEAN CELL VOLUME 97.8 H MEAN CELL HGB 31.8 H MEAN CELL HGB CONCENTRATION 32.5 L RED CELL DISTRIBUTION WIDTH 13.2 PLATELET COUNT 309 TROPI (07/26/23 13:35) TROPONIN-I 51.2 LIVER FUNCTION PANEL (07/26/23 13:35) TOTAL PROTEIN 8.0 ALBUMIN 4.8 BILIRUBIN TOTAL 0.5 BILIRUBIN DIRECT 0.2 SGOT/AST 22 SGPT/ALT 21 ALKALINE PHOSPHATASE 106.0 PROTHROMBIN TIME (07/26/23 13:35) PROTHROMBIN TIME PATIENT 12.2 INTERNATIONAL NORMAL RATIO 1.09 BASIC METABOLIC PANEL (07/26/23 13:35) SODIUM 135L L POTASSIUM 4.6 CHLORIDE 102 CARBON DIOXIDE 25 GLUCOSE 104 BLOOD UREA NITROGEN 8L L GLOMERULAR FILTRATION RATE >=60 max estimate CREATININE 1.00 CALCIUM 8.9 PTT (07/26/23 13:35) THROMBOPLASTIN TIME PARTIAL 33.6 MAG (07/26/23 13:35) MAGNESIUM 1.7 Signed in PatientKeeper by ROCHELLE POWELL MD CF1 on 07/26/23 at 20:35 Cosigned by MALACHI FITZGERALD MD on 07/28/23 at 21:13 at 3 at 3 ATTENTION *EDITS and/or ADDENDA must be made in Patient Keeper for this note. * * Edits and ammendments created in [facility] are not visible * * in Patient Keeper or the legal medical record ([facility]). * [facility] #: [id number] END OF REPORT [facility] 2023-07-26 14:08:00 [facility] ([facility]) EMERGENCY PROVIDER REPORT REPORT#:[id number] REPORT STATUS: Signed DATE:07/26/23 TIME: 140 PATIENT: KOTA MONTES UNIT #: [id number] ROOM: [facility] BED: 1 AGE: 62 SEX: M PCP PHYS: Kurtis Lynch MD SERVICE AUTHOR: Shivam Singh MD * ALL edits or amendments must be made on the electronic/computer document * HPI-Chest Pain 40 and Over Free Text HPI Notes Free Text HPI Notes PMH as documented. Recent CABG in June [address] Pike. Brought to the ED by EMS. Reports chest pain and sob since yesterday. Was given aspirin 324 mg by EMS. Also given 100 mcg fentanyl. Initial EMS concern for STEMI, however, EMS ECG reviewed by Dr. Lynch and Dr. Segal, no indication to activate. General Initial Greet Date/Time 07/26/[address] Kurtis Pike Presentation Chief Complaint Chest pain, Shortness of breath Hx Obtained From Patient Sudden in Onset? Yes Risk-Chest Pain 40 and Over Risk Stratification )( AMI-Aspirin Aspirin Last 24 Hrs 324 mg, By EMS )( HEART for MACE )( HEART for MACE Response Value History Mod index of suspicion 1 ECG Interpretation Nonspec repol disturb 1 Age Age 45 - 65 1 Risk Factors for CAD 3+ CAD risk factors 2 Total 5 Review of Systems ROS Statements All systems rev neg except as marked. Past Medical History - Adult Stated Complaint SHORTNESS OF BREATH AND CHEST PAIN Allergies Coded Allergies: No Known Allergies (02/12/21) Home Medications Active Scripts Clopidogrel Bisulfate (Plavix) 75 MG PO DAILY Clopidogrel Bisulfate (Plavix) 75 MG PO DAILY #90 TAB Ref 3 Prov: 06/18/23 Potassium Chloride Er (Klor-Con M20) 20 MEQ PO DAILY Potassium Chloride Er (Klor-Con M20) 20 MEQ PO DAILY #30 TAB Ref 3 Prov: 06/18/23 Methocarbamol (Robaxin) 1,000 MG PO TID Methocarbamol (Robaxin) 1,000 MG PO TID #90 TAB Ref 3 Prov: 06/18/23 Pregabalin (Lyrica) 50 MG PO BID Pregabalin (Lyrica) 50 MG PO BID #90 CAP Prov: 06/18/23 Metoprolol Tartrate (Lopressor) 12.5 MG PO BID Metoprolol Tartrate (Lopressor) 12.5 MG PO BID #90 TAB Ref 4 Prov: 06/18/23 Thiamine (Vitamin B-1) 100 MG PO DAILY Thiamine (Vitamin B-1) 100 MG PO DAILY #90 TAB Ref 2 Prov: 06/18/23 Atorvastatin (Lipitor) 80 MG PO BEDTIME Atorvastatin (Lipitor) 80 MG PO BEDTIME #120 TAB Ref 3 Prov: 06/18/23 Furosemide (Lasix) 20 MG PO QAM Furosemide (Lasix) 20 MG PO QAM #90 TAB Ref 3 Prov: 06/18/23 Hydrocodone/Acetaminophen (HYDROcodone/APAP 10/325) 1 TAB PO Q6H PRN pain scale 7-10 (use 1st) 7 Days #28 TAB Prov: 06/18/23 Reported Medications Escitalopram (Lexapro) 20 MG PO DAILY Folic Acid 1 MG PO DAILY Aspirin Ec 81 MG PO DAILY Trazodone (Desyrel) 100 MG PO BEDTIME Calculated Suicide Risk (nurs) No risk Past Medical History: Reports: Coronary artery disease, Hypertension, Dyslipidemia. Additional Medical History History of [place] Past Surgical History: Reports: CABG. Additional Surgical History Cardiac stents, right hip hardware Pt reports no Fam Hx pert to chief complaint. Alcohol Use Alcohol use Drug Use Denies recreational drugs Smoking status for patients 13 years old or older: Former Smoker Physical Exam Vital Signs Vital Signs First Documented: Result Date Time Pulse Ox 95 07/25 1324 B/P 144/88 07/25 1324 B/P Mean 106 07/25 1324 O2 Delivery Room air 07/25 1324 Temp 37.2 07/25 1324 Pulse 92 07/25 1324 Resp 18 07/25 1324 Last Documented: Result Date Time Pulse Ox 95 07/25 1401 B/P 129/83 07/25 1401 B/P Mean 98 07/25 1401 O2 Delivery Room air 07/25 1401 Pulse 85 07/25 1401 Resp 16 07/25 1401 Temp 37.2 07/25 1324 Review of Vital Signs Reviewed Focused PE General/Const General/Const Awake, Alert, Cooperative, Not toxic appearing MS Neck Neck Supple, No JVD Resp/Chest Respiratory/Chest No respiratory distress, No retractions Cardiovascular Cardiovascular Heart rate NL, Regular rhythm, Peripheral circulation NL Abdomen/GI Abdomen/GI No distention MS Lower Extrem Lower Ext/Pelvis/MS No swelling Skin Skin Color NL, Dry Neurologic Neurologic Speech NL, No motor deficits Interpretation Diagnostics Lab Results Interpretation Results Laboratory Tests 07/26/23 1335: [Embedded Image Not Available] Laboratory Tests: 07/25 07/25 07/25 1335 1335 1335 Chemistry Sodium (136 - 145 mmol/L) 135 L Potassium (3.5 - 5.1 mmol/L) 4.6 Chloride (98 - 107 mmol/l) 102 Carbon Dioxide (20 - 31 mmol/L) 25 BUN (9 - 23 mg/dL) 8 L Creatinine (0.70 - 1.30 mg/dL) 1.00 Glomerular Filtr Rate (>60 mL/min) >=60 max estimate Glucose (74 - 106 mg/dL) 104 Calcium (8.7 - 10.4 mg/dL) 8.9 Magnesium (1.6 - 2.6 mg/dL) 1.7 Total Bilirubin (0.3 - 1.2 mg/dL) 0.5 Direct Bilirubin (<0.3 mg/dL) 0.2 AST (<34 U/L) 22 ALT (10 - 49 U/L) 21 Total Alk Phosphatase (46 - 116 U/L) 106.0 Troponin I High Sens (38.73 - 80.22 pg/mL) 51.2 B-Natriuretic Peptide (<100 pg/mL) 1640 H Total Protein (5.7 - 8.2 g/dL) 8.0 Albumin (3.2 - 4.8 g/dL) 4.8 Triglycerides (<150 mg/dL) 112 Cholesterol (<200 mg/dL) 119 LDL Cholesterol Measurd (<100 mg/dL) 48 HDL Cholesterol (>60 mg/dL) 42 L Coronary Risk Interp 2.83 Coagulation PT (10.3 - 12.9 SECONDS) 12.2 INR (0.9 - 1.11) 1.09 PTT (Marianela) (23.8 - 34.8 secs) 33.6 Hematology WBC (4.8 - 10.8 x10 3/uL) 11.5 H RBC (4.70 - 6.10 x10 6/uL) 4.18 L Hgb (14.0 - 18.0 g/dL) 13.3 L Hct (42.0 - 52.0 %) 40.9 L MCV (80.0 - 94.0 fL) 97.8 H MCH (27 - 31 pg) 31.8 H MCHC (33 - 36.5 G/DL) 32.5 L RDW (12.9 - 16.9 %) 13.2 Plt Count (150 - 440 x10 3/uL) 309 Lab Imaging Statement Laboratory radiographic studies reviewed and considered in the medical decision-making. Point of Care Testing Pulse Oximetry Pulse Ox % 95 On: Room air Interpretation Mild desaturation Time 1324 ECG #1 Interpretation Text/Dict Note Rate 99 bpm, NSR, normal NORMA, LBBB. No STEMI. ECG Documented in MUSE Yes Date 07/26/23 Time 1326 Interpreted by and reviewed by me, Independently interpreted, ED physician Re-Evaluation MDM Free Text MDM Notes Free Text MDM Notes Chest pain and sob. Hx of significant CAD s/p recent CABG. ECG with LBBB, no STEMI. Trop I wnl x1. BNP elevated to 1640. CXR showed mild edema. Patient kept on O2 via nasal cannula. Admitted under Dr. Kumari's service with cardiology service closely following. Noted to have progressively increasing dyspnea. Given IV bumex and drip. Placed on NRB. Cardiology team re-evaluated in the ED and plan for likely Impella. Admission to CVICU. Dr. Stein notified. ED Course Medication(s) Ordered Medication(s) Ordered: Electrolytic, Caloric, And Leandro Sig/Alfonzo Start time Last Medication Dose Route Stop Time Status Admin Sodium Chloride 1,000 ML .Q24H 07/25 1345 AC 07/28 IV 08/24 1346 1351 Other Sig/Alfonzo Start time Last Medication Dose Route Stop Time Status Admin Miscellaneous 1 EACH ASDIR 07/25 1345 AC Information IV 08/24 1346 Patient Discharge Departure Vital Signs/Condition Vital Signs First Documented: Result Date Time Pulse Ox 95 07/25 1324 B/P 144/88 07/25 1324 B/P Mean 106 07/25 1324 O2 Delivery Room air 07/25 1324 Temp 37.2 07/25 1324 Pulse 92 07/25 1324 Resp 18 07/25 1324 Last Documented: Result Date Time Pulse Ox 95 07/25 1401 B/P 129/83 07/25 1401 B/P Mean 98 07/25 1401 O2 Delivery Room air 07/25 1401 Pulse 85 07/25 1401 Resp 16 07/25 1401 Temp 37.2 07/25 1324 All vital signs available at the time of this entry have been reviewed. Clinical Impression Clinical Impression Primary Impression: Chest pain Secondary Impressions: Dyspnea, History of CAD (coronary artery disease) Disposition Decision Hospitalize Hosp Physician Name Keenan Kumari MD Hosp Physician Hospitalist Request Time 1412 Request Date 07/26/23 )( Accepts Hospitalization Yes )( Reason for Hospitalization chest pain, sob, eval for ACS )( Accepted Time 1411 )( Accepted Date 07/26/23 Call Information will see patient, agrees with eval, agrees with plan Discharge/Care Plan Counseled Regarding Diagnosis, Lab results, Imaging studies, Need for admission at 0718 RPT #:[id number] END OF REPORT [facility] 2023-07-26 13:26:00 [id number] [place] [address] PATIENT NAME: KOTA MONTES ADMIT DATE: 07/26/23 ACCOUNT NO: [id number] ROOM NO: [facility] AGE: 62 REPORT TYPE: eELECTROCARDIOGRAM SEX: M ADMITTING PHYSICIAN: Keenan Kumari MD ATTENDING PHYSICIAN: Keenan Kumari MD Order: [id number] Test Reason : Test Date/Time Stamp: SatJul 26 2023 13:26:36 Blood Pressure : / mmHG Vent. Rate : 099 BPM Atrial Rate : 099 BPM P-R Int : 144 ms QRS Dur : 156 ms QT Int : 394 ms P-R-T Axes : 062 010 083 degrees QTc Int : 505 ms Normal sinus rhythm Left bundle branch block Abnormal ECG When compared with ECG of 29-MAY-2023 01:13, Vent. rate has increased BY 44 BPM Confirmed by fellow Liu Patricia ([id number]) on 07/31/2023 9:47:05 AM Confirmed by SATYA BERMUDEZ ([id number]) on 08/01/2023 9:14:51 AM Referred By: Self Referred Confirmed by:SATYA BERMUDEZ at 0914 PATIENT NAME: KOTA MONTES [facility] 2023-06-18 23:11:00 [id number] [facility] [address] [place] [address] PATIENT NAME: KOTA MONTES ADMIT DATE: 05/29/23 ACCOUNT NO: [id number] ROOM NO: [facility] AGE: 62 REPORT TYPE: OPERATIVE REPORT SEX: M ADMITTING PHYSICIAN:Sherrie Stein MD ATTENDING PHYSICIAN:Keenan Kumari MD OPERATION DATE: 05/31/2023 PROCEDURES: 1. Selective coronary angiogram x2. 2. A 6-Chinese Angio-Seal of the right femoral artery. 3. Moderate sedation of 17 minutes. INDICATIONS FOR PROCEDURE: The patient is a 62-year-old gentleman with known coronary artery disease, who comes in with unstable angina. PREPROCEDURE DIAGNOSIS: Unstable angina. POSTPROCEDURE DIAGNOSIS: Multivessel coronary artery disease. ARTIFICIAL PLASTIC EYE MAKER: Kurtis Lynch MD CURTAIN SUPERVISOR: None. ANESTHESIA: Moderate sedation with local anesthesia. DESCRIPTION OF PROCEDURE: After obtaining informed consent, the patient was brought to the Cardiac Catheterization Laboratory with the patient was prepped and draped in normal sterile fashion. I attest that moderate conscious sedation was supervised by me "Kurtis Lynch MD" and independent trained observer pushed medications at my direction and monitored the patient's level of consciousness and physiological status throughout. The 2 mg of intravenous Versed and 50 mcg of intravenous fentanyl was given to sedate the patient. Start time was 1243 hours, end time was 1300 hours. This is a total of 17 minutes. Using 20 mL of Xylocaine, right groin was locally anesthetized. Using a micropuncture needle with ultrasonography, the right common femoral artery was cannulated with a 5-Chinese sheath. Through this, we took a 4-Chinese JL4 catheter and cannulated the left main. Selective angiography was performed. The catheter was then exchanged for a 4-Chinese JR4 catheter, which was used to cannulate the right coronary artery and selective angiography performed. After this, catheter was removed, sheath was aspirated and flushed. A 6-Chinese Angio-Seal was used to close the arteriotomy on the right with good hemostasis. COMPLICATIONS: There were no complications. ESTIMATED BLOOD LOSS: Less than 10 mL. PATIENT NAME: KOTA MONTES IMPRESSION: Coronary artery anatomy as follows: Left main is patent. Left anterior descending artery has a proximal 70% stenosis. The circumflex artery has ostial 95% stenosis with a stent patent in its proximal portion. The right coronary artery has a long length of stent in its proximal and mid segment with a mid focal 90% in-stent stenosis. PLAN: The patient will need cardiac surgical evaluation as the patient is developing in-stent disease with likely 3 vessel bypass. Dictated By: Kurtis Lynch MD Date Dictated: 06/18/2023 23:11:27 Date Transcribed: 06/19/2023 04:43:19 MEDHAT/TRENA Receipt ID: [id number] Authenticated by Kurtis Lynch MD On 06/25/2023 04:13:56 PM at 0413 PATIENT NAME: KOTA MONTES [facility] 2023-06-18 15:26:00 [facility] ([facility]) Med Order Sheet REPORT #: [id number] REPORT STATUS: Signed DATE: 06/18/23 TIME: 1526 PATIENT: KOTA MONTES UNIT #: [id number] ROOM #: [id number] BED: A : 61 AGE: 62 SEX: M ATTEND: Keenan Kumari MD ADM AUTHOR: Keenan Kumari MD ATTENTION *EDITS and/or ADDENDA must be made in Patient Keeper for this note. * * Edits and ammendments created in [facility] are not visible * * in Patient Keeper or the legal medical record ([facility]). * Discharge Medication Reconciliation DISCHARGE MEDICATION LIST Aspirin EC Tab (Ecotrin Tab) Dose: 81 MG PO DAILY Atorvastatin Tab (Lipitor Tab) Dose: 80MG PO BEDTIME, Disp: 120 tablet, Refills: 3 Folic Acid Tab (Folvite Tab) Dose: 1 MG PO DAILY Lexapro tab (escitalopram oxalate) Dose: 20 MG PO DAILY Metoprolol Tartrate Tab (Lopressor Tab) Dose: 12.5MG PO BID, Disp: 90 tablet, Refills: 4 traZODone Tab (Desyrel Tab) Dose: 100 MG PO BEDTIME Clopidogrel Tab (Plavix Tab) Dose: 75MG PO DAILY, Disp: 90 tablet, Refills: 3 Furosemide Tab (Lasix Tab) Dose: 20MG PO QAM, Disp: 90 tablet, Refills: 3 Methocarbamol Tab (Robaxin Tab) Dose: 1000MG PO TID, Disp: 90 tablet, Refills: 3 Potassium Chlor Tab.ER (K Dur Tab) Dose: 20MEQ PO DAILY, Disp: 30 tablet, Refills: 3 Pregabalin Cap (Lyrica Cap) Dose: 50MG PO BID, Disp: 90 capsule, Refills: 0 Thiamine Tab (Vitamin B-1 Tab) Dose: 100MG PO DAILY, Disp: 90 tablet, Refills: 2 STOPPED HOME MEDICATIONS Dc'd: Ticagrelor Tab (Brilinta Tab) 90 MG PO Q12HR STOPPED HOSPITAL MEDICATIONS Dc'd: Acetaminophen Tab (Tylenol Tab) 650MG PO Q4H PRN temp > 38.5 cDc'd: Acetaminophen Inj (Ofirmev Inj) 1000MG 400 MLS/HR IV Q6H X 4 doses PRN pain scale 4-6Dc'd: ALPRAZolam Tab (Xanax Tab) 0.5MG PO TID PRN agitation or anxietyDc'd: Calcium gluconate 2 GM/NS 100 mL IVPB 2GM 600 MLS/HR IV ASDIR PRN ionized calcium less than 1.2Dc'd: Dextrose 50% 50 ml Syringe (D50W 50 ml Syringe) 25ML IV ASDIR PRN hypoglycemiaDc'd: Docusate Sodium Cap (Colace Cap) 200MG PO DAILYDc'd: Enoxaparin 40 mg/0.4 ml Inj (Lovenox 40 mg/0.4 ml Inj) 40MG SubQ DAILYDc'd: Glucagon Inj (Glucagon Inj) 1MG IM ASDIR PRN hypoglycemia if no iv/enteralDc'd: hydrALAZINE Inj (Apresoline Inj) 5MG IV Q6HR PRN sbp greater than 160Dc'd: KCl 20mEq/100mL IVPB (Potassium Chloride 20mEq/100mL IVPB) 20MEQ IV ASDIR PRN potassium sliding scaleDc'd: Lidocaine Patch 4% (Lidoderm Patch 4%) 2PATCH Transderm DAILYDc'd: Magnesium Sulfate 1GM IVPB (Magnesium Sulfate 1GM IVPB) 1GM 100 MLS/HR IV ASDIR PRN see admin criteriaDc'd: Ondansetron Inj (Zofran Inj) 4MG IV Q6H PRN nausea and vomitingDc'd: Ondansetron ODT Tab (Zofran ODT Tab) 4MG PO Q6H PRN nausea and vomitingDc'd: Polyethylene Glycol Powder (Miralax Powder) 1PKT PO DAILYDc'd: Potassium Chlor Tab.ER (K Dur Tab) 20MEQ PO ASDIR PRN electrolyte sliding scaleDc'd: Sodium Chloride 0.9% (NS) 1000ML KVO IV Dc'd: Sodium Chloride 0.9% Inj (NS Flush Inj) 10ML IV ASDIRDc'd: Sodium Phosphate Inj (Sodium Phosphate Inj) 20MM IV ASDIR PRN phosphorus sliding scalein sodium chloride 0.9 % intravenous solution 250ML (Total 256.67 ML) Dc'd: Sodium Phosphate Inj (Sodium Phosphate Inj) 30MM IV ASDIR PRN phosphorus sliding scalein sodium chloride 0.9 % intravenous solution 250ML (Total 260 ML) at 1526 ATTENTION *EDITS and/or ADDENDA must be made in Patient Keeper for this note. * * Edits and ammendments created in [employer] are not visible * * in Patient Keeper or the legal medical record ([facility]). * RPT #: [id number] END OF REPORT [facility] 2023-06-18 15:25:00 [facility] ([facility]) Hospitalist Brief D/C Summ. REPORT #: [id number] REPORT STATUS: Signed DATE: 06/18/23 TIME: 1525 PATIENT: KOTA MONTES UNIT #: [id number] ROOM #: [id number] BED: A : 61 AGE: 62 SEX: M ATTEND: Keenan Kumari MD ADM AUTHOR: Keenan Kumari MD ATTENTION *EDITS and/or ADDENDA must be made in Patient Keeper for this note. * * Edits and ammendments created in [employer] are not visible * * in Patient Keeper or the legal medical record ([facility]). * -- ADMISSION SYNOPSIS -- ADMISSION DATE: 05/29/23 ADMITTING DIAGNOSES: - Alcohol abuse - Alcohol abuse with unspecified alcohol-induced disorder - Atherosclerosis of [place] coronary artery without angina pectoris, unspecified whether [place] or transplanted heart - Cervicalgia - Chest pain - Chest pain, unspecified - Chest pain, unspecified type - Chronic disease anemia - Contact with and (suspected) exposure to covid-19 - Coronary artery disease - Heart failure, unspecified - History of CAD (coronary artery disease) - Hypertension, essential - Hypo-osmolality and hyponatremia - Non-ST elevation (NSTEMI) myocardial infarction - Unstable angina DISCHARGE DATE: 06/18/23 DISCHARGE DIAGNOSES: - Alcohol abuse - Alcohol abuse with unspecified alcohol-induced disorder - Atherosclerosis of [place] coronary artery without angina pectoris, unspecified whether [place] or transplanted heart - Cervicalgia - Chest pain - Chest pain, unspecified - Chest pain, unspecified type - Chronic disease anemia - Contact with and (suspected) exposure to covid-19 - Coronary artery disease - Heart failure, unspecified - History of CAD (coronary artery disease) - Hypertension, essential - Hypo-osmolality and hyponatremia - Non-ST elevation (NSTEMI) myocardial infarction - Unstable angina HOSPITAL COURSE TO DATE: 1. Recurrent chest pain, in a patient with a known history of severe multivessel coronary artery disease, status post multiple interventions. Serial cardiac enzymes are negative and myocardial infarction has been ruled out. I will continue aspirin, Brilinta, metoprolol and atorvastatin. selective coronary angiogram by Dr. Kurtis Lynch 05/30 revealing severe multivessel coronary artery disease, not amenable to further angioplasty. 2. Abdominal distention and pain, rule out ileus/bowel obstruction. Abdominal x-ray non diagnostic. 3. Hypertension. Continue metoprolol. 4. Hyperlipidemia. Continue atorvastatin 40 mg daily. 5. Alcohol abuse. Delirium tremens prophylaxis. 6. Nicotine dependence, we will offer a Nicoderm patch. 7. Anxiety/depression, not otherwise specified. Continue escitalopram. 8. Severe hyponatremia. The patient has previously had similar hyponatremia and etiology is unclear. 9. Gross noncompliance with instructions and therapy 10. Anxiety. Supportive treatment. 06/16: took over from Dr Tilley due to ethnic/gnosticism discrimination and abuse. Is s/p CABG post operatively doing well and being optimized by cardiac/Ct surgical service 06/17: stable. continue optimization. awaiting clearance for discharge by cardio/surgical service -- OBJECTIVE -- VITALS (06/16 15:25 - 06/17 15:25): Temperature F: 98.1 (98.0 - 98.6) Temperature source: oral Pulse Rate 92 (86 - 114) Respiratory rate: 17 (13 - 27) Blood pressure: 96/60 (96/58 - 132/74) Blood pressure source: Monitor I/Os (06/16 07:00 - 06/17 07:00): Net -1,860.00 Intake 640.00 Output 2,500 -EXAM- GENERAL: Well developed, well nourished, in no apparent distress. HEAD: Normocephalic, atraumatic. EARS: grossly normal hearing. NOSE: No deformity, no discharge MOUTH: Oropharynx without deformities or lesions, normal mucosa. CHEST: sternotomy site c/d/i, chest tubes and TPW noted LUNGS: Clear bilaterally with normal respiratory effort. HEART: Regular rate and rhythm, normal S1, S2, no murmurs EXTREMITIES: No clubbing, no cyanosis, no edema. NEUROLOGICAL: No focal deficits, cranial nerves II-XII grossly intact PSYCHIATRIC: Alert and oriented to time, person, place. -- DISCHARGE MEDICATIONS -- ALLERGIES: No Known Allergies (UNKNOWN - Allergy) -- DISCHARGE INSTRUCTIONS -- ADDTIONAL DISCHARGE INSTRUCTIONS: Emergency Instructions: The patient was instructed to present to the nearest Emergency Department or call 911 should their symptoms return or worsen.; -- DATA -- LABS CBC W/AUTO DIFF (06/18/23 03:40) WHITE BLOOD CELL 9.0 RED BLOOD CELL 2.79 L HEMOGLOBIN 9.1L L HEMATOCRIT 27.1L L MEAN CELL VOLUME 97.1 H MEAN CELL HGB 32.6 H MEAN CELL HGB CONCENTRATION 33.6 RED CELL DISTRIBUTION WIDTH 13.5 PLATELET COUNT 214 MEAN PLATELET VOLUME 9.9 NEUTROPHIL % 71.1 LYMPHOCYTE % 13.1 L MONOCYTE % 12.7 H EOSINOPHIL % 1.1 BASOPHIL % 0.4 NEUTROPHIL # 6.41 LYMPHOCYTE # 1.18 MONOCYTE # 1.15 H EOSINOPHIL # 0.10 BASOPHIL # 0.04 BASIC METABOLIC PANEL (06/18/23 03:40) SODIUM 131L L POTASSIUM 4.5 CHLORIDE 95L L CARBON DIOXIDE 30 GLUCOSE 85 BLOOD UREA NITROGEN 8L L GLOMERULAR FILTRATION RATE >=60 max estimate CREATININE 0.90 CALCIUM 8.5 L MAG (06/17/23 16:10) MAGNESIUM 1.9 CBC W/AUTO DIFF (06/17/23 16:10) WHITE BLOOD CELL 8.6 RED BLOOD CELL 2.80 L HEMOGLOBIN 9.2L L HEMATOCRIT 27.0L L MEAN CELL VOLUME 96.4 H MEAN CELL HGB 32.9 H MEAN CELL HGB CONCENTRATION 34.1 RED CELL DISTRIBUTION WIDTH 13.2 PLATELET COUNT 186 MEAN PLATELET VOLUME 9.8 NEUTROPHIL % 72.1 LYMPHOCYTE % 14.0 L MONOCYTE % 11.6 H EOSINOPHIL % 0.9 BASOPHIL % 0.2 NEUTROPHIL # 6.23 LYMPHOCYTE # 1.21 MONOCYTE # 1.00 H EOSINOPHIL # 0.08 BASOPHIL # 0.02 BASIC METABOLIC PANEL (06/17/23 16:10) SODIUM 131L L POTASSIUM 3.6 CHLORIDE 95L L CARBON DIOXIDE 30 GLUCOSE 92 BLOOD UREA NITROGEN 9 GLOMERULAR FILTRATION RATE >=60 max estimate CREATININE 0.80 CALCIUM 8.5 L PHOS (06/17/23 16:10) PHOSPHOROUS 2.2 L Signed in PatientKeeper by Keenan Kumari MD on 06/18/23 at 15:25 at 1525 ATTENTION *EDITS and/or ADDENDA must be made in Patient Keeper for this note. * * Edits and ammendments created in [facility] are not visible * * in Patient Keeper or the legal medical record ([facility]). * [facility] #: [id number] END OF REPORT [facility] 2023-06-18 14:50:00 [id number] [facility] [address] [place] [address] PATIENT NAME: KOTA MONTES ADMIT DATE: 05/29/23 ACCOUNT NO: [id number] ROOM NO: [facility] AGE: 62 REPORT TYPE: PROGRESS NOTE SEX: M ADMITTING PHYSICIAN:Sherrie Stein MD ATTENDING PHYSICIAN:Keenan Kumari MD DATE: PAIN MANAGEMENT PROGRESS NOTE SUBJECTIVE: I saw Mr. Montes before he had his coronary artery bypass surgery. I stared following because Cardiothoracic Surgery wanted to handle the pain medication. Now, the plan is for him to be discharged. He has had a CABG, complaining of pain at the sternal side, but he was able to walk. He does report some constipation. He has been weaned down the Dilaudid at 0.5 every 6 hours as per talking ____ discuss with the nursing staff, he has been pretty much getting Dilaudid all the time while he has been here. He also has hydrocodone 10/325. Somewhat of a poor historian. He has had the Dilaudid once yesterday, twice the day before, more often on the . Appears no side effects from it. PHYSICAL EXAMINATION: VITAL SIGNS: Blood pressure 96/60, respirations 17, heart rate 92, temperature 98.1. GENERAL: Awake and alert, not sedated, sternotomy surgical scar noted. He has a cardiac pillow. ABDOMEN: Soft. EXTREMITIES: No edema. ASSESSMENT: Status post coronary artery bypass surgery, extensive coronary artery disease with chest pain. PLAN: I checked the [place] prescription monitoring report. He got tramadol late last year, but does not appear to have any chronic opiate use other than the tramadol. He states that he got that for hip and pelvis pain. I think it is reasonable to discharge him on the hydrocodone. In fact, I sent the hydrocodone prescription. I am going to leave my number. He can follow up with me as an outpatient. Discussed with the nursing staff. Also, recommend to continue the Lyrica, discharge him with Lyrica and the Robaxin. We will be happy to follow up. Dictated By: Beth José DO Date Dictated: 06/18/2023 14:50:19 Date Transcribed: 06/18/2023 16:01:57 M/[facility]/ADOLFO/COLLIN PATIENT NAME: KOTA MONTES Receipt ID: [id number] Authenticated by Beth José DO On 06/26/2023 06:58:05 AM at 0658 PATIENT NAME: KOTA MONTES [facility] 2023-06-18 14:48:00 [facility] ([facility]) Med Order Sheet REPORT #: [id number] REPORT STATUS: Signed DATE: 06/18/23 TIME: 1448 PATIENT: KOTA MONTES UNIT #: [id number] ROOM #: P.0405 BED: A : 62 AGE: 62 SEX: M ATTEND: Keenan Kumari MD ADM AUTHOR: Beth José DO ATTENTION *EDITS and/or ADDENDA must be made in Patient Keeper for this note. * * Edits and ammendments created in [facility] are not visible * * in Patient Keeper or the legal medical record ([facility]). * Discharge Medication Reconciliation DISCHARGE MEDICATION LIST HYDROcodone/APAP 10/325 Tab (Corinne 10/325 Tab) Dose: 1TAB PO q6h X 7 days PRN pain scale 7-10 (use 1st), Disp: 28 tablet, Refills: 0 The following Home Medications have not yet been reconciled: Aspirin EC Tab (Ecotrin Tab) 81 MG PO DAILY Atorvastatin Tab (Lipitor Tab) 40 MG PO BEDTIME Folic Acid Tab (Folvite Tab) 1 MG PO DAILY Lexapro tab (escitalopram oxalate) 20 MG PO DAILY Metoprolol Tartrate Tab (Lopressor Tab) 50 MG PO BID Ticagrelor Tab (Brilinta Tab) 90 MG PO Q12HR traZODone Tab (Desyrel Tab) 100 MG PO BEDTIME The following Hospital Medications have not yet been reconciled: Aspirin EC Tab (Ecotrin Tab) 81MG PO DAILY stopping on 06/27 at 09:01 Atorvastatin Tab (Lipitor Tab) 80MG PO BEDTIME stopping on 06/26 at 21:01 Escitalopram Tab (Lexapro Tab) 20MG PO DAILY stopping on 06/27 at 09:01 Metoprolol Tartrate Tab (Lopressor Tab) 12.5MG PO BID stopping on 07/13 at 21:01 Metoprolol Tartrate Inj (Lopressor Inj) 5MG IV Q6H PRN hr>120 or sbp >160 stopping on 06/26 at 17:31 traZODone Tab (Desyrel Tab) 100MG PO BEDTIME stopping on 06/26 at 21:01 Acetaminophen Tab (Tylenol Tab) 650MG PO Q4H PRN temp > 38.5 c stopping on 07/12 at 11:31 Acetaminophen Inj (Ofirmev Inj) 1000MG 400 MLS/HR IV Q6H X 4 doses PRN pain scale 4-6 ALPRAZolam Tab (Xanax Tab) 0.5MG PO TID PRN agitation or anxiety stopping on 06/20 at 10:01 Calcium gluconate 2 GM/NS 100 mL IVPB 2GM 600 MLS/HR IV ASDIR PRN ionized calcium less than 1.2 stopping on 07/12 at 11:31 Clopidogrel Tab (Plavix Tab) 75MG PO DAILY stopping on 07/13 at 09:01 Dextrose 50% 50 ml Syringe (D50W 50 ml Syringe) 25ML IV ASDIR PRN hypoglycemia stopping on 07/12 at 11:31 Docusate Sodium Cap (Colace Cap) 200MG PO DAILY stopping on 07/13 at 09:01 Enoxaparin 40 mg/0.4 ml Inj (Lovenox 40 mg/0.4 ml Inj) 40MG SubQ DAILY stopping on 07/14 at 15:01 Furosemide Tab (Lasix Tab) 20MG PO QAM stopping on 07/18 at 09:01 Glucagon Inj (Glucagon Inj) 1MG IM ASDIR PRN hypoglycemia if no iv/enteral stopping on 07/12 at 11:31 hydrALAZINE Inj (Apresoline Inj) 5MG IV Q6HR PRN sbp greater than 160 stopping on 06/26 at 18:01 KCl 20mEq/100mL IVPB (Potassium Chloride 20mEq/100mL IVPB) 20MEQ IV ASDIR PRN potassium sliding scale stopping on 07/12 at 12:01 Lidocaine Patch 4% (Lidoderm Patch 4%) 2PATCH Transderm DAILY stopping on 07/14 at 09:01 Magnesium Sulfate 1GM IVPB (Magnesium Sulfate 1GM IVPB) 1GM 100 MLS/HR IV ASDIR PRN see admin criteria stopping on 07/12 at 11:31 Methocarbamol Tab (Robaxin Tab) 1000MG PO TID stopping on 07/13 at 15:01 Ondansetron Inj (Zofran Inj) 4MG IV Q6H PRN nausea and vomiting stopping on 07/12 at 11:31 Ondansetron ODT Tab (Zofran ODT Tab) 4MG PO Q6H PRN nausea and vomiting stopping on 06/26 at 17:31 Polyethylene Glycol Powder (Miralax Powder) 1PKT PO DAILY stopping on 07/13 at 09:01 Potassium Chlor Tab.ER (K Dur Tab) 20MEQ PO ASDIR PRN electrolyte sliding scale stopping on 07/15 at 16:16 Potassium Chlor Tab.ER (K Dur Tab) 20MEQ PO DAILY stopping on 07/18 at 09:01 Pregabalin Cap (Lyrica Cap) 50MG PO BID stopping on 07/04 at 09:01 Sodium Chloride 0.9% (NS) 1000ML KVO IV .Q24H stopping on 06/26 at 20:31 Sodium Chloride 0.9% Inj (NS Flush Inj) 10ML IV ASDIR stopping on 09/10 at 11:31 Sodium Phosphate Inj (Sodium Phosphate Inj) 20MM IV ASDIR PRN phosphorus sliding scale stopping on 07/12 at 14:46 Sodium Phosphate Inj (Sodium Phosphate Inj) 30MM IV ASDIR PRN phosphorus sliding scale stopping on 07/12 at 14:46 Thiamine Tab (Vitamin B-1 Tab) 100MG PO DAILY stopping on 06/27 at 11:01 at 1448 ATTENTION *EDITS and/or ADDENDA must be made in Patient Keeper for this note. * * Edits and ammendments created in [facility] are not visible * * in Patient Keeper or the legal medical record (HPF). * RPT #: [id number] END OF REPORT [facility] 2023-06-18 10:18:00 [facility] ([facility]) Cardiothoracic Surg. Prog Note REPORT #: [id number] REPORT STATUS: Signed DATE: 06/18/23 TIME: 1018 PATIENT: KOTA MONTES UNIT #: [id number] ROOM #: P.0303 BED: 1 : 61 AGE: 62 SEX: M ATTEND: Sherrie Stein MD ADM AUTHOR: Edis Nogueira ATTENTION *EDITS and/or ADDENDA must be made in Patient Keeper for this note. * * Edits and ammendments created in [employer] are not visible * * in Patient Keeper or the legal medical record ([facility]). * -- ASSESSMENT AND PLAN -- HOSPITAL COURSE TO DATE: 06/13/2023 -CABG x 2 BOGGS--LAD and SVG--> OM (Dr. Pike) - Extubated on POD#0 06/15/2023 -CT's removed -Hemodynamically stable, on ASA/ Plavix/ Statin/ lasix and Metoprolol 4 -Continued pain control issues despite attempts to wean IV meds, not getting relief with oral multimodal regimen -will need to get Pain management to return to help with out pt pain management -Medically stable for D/C once IV pain meds have been weaned off 416 -Remains hemodynamically stable, On post coronary bypass guideline medical therapy -Is requesting discharge to home. GENERAL ASSESSMENT: POD# 5 -Notified this morning patient is requesting discharged home. -Patient is been weaned successfully from oxygen, ambulating in the halls -Labs Hemoglobin 9.1, White blood cell count 9.0,BUN 8, Creatinine 0.9 Chest x-ray stable postoperative changes No effusions, Infiltrates or pulmonary edema -Continues to require frequent IV Dilaudid for pain control. MAR reviewed not reflective of consistent oral pain medications prior to IV medications nursing staff states that he refuses multimodal regimen Rounded with cardiology and CV surgery and Mr Montes is cleared for discharge home from a cardiology/CV surgery perspective however there are concerns of his success at home if his Pain is only improved with IV Dilaudid. Patient stated that he had the expectation he would be discharged with a PICC line and provided home health that would give him his IV pain medications at home. He states that this was something that he had done with his pelvic fracture and [place]. Despite a long discussion explaining how that is not an option Including safety, potential for abuse and addiction, and logistics he remained unsatisfied with our response and questioned why we would perform heart surgery on him if we did not have a medical license to provide scheduled IV medications at home. Pain management team to see today -Standard post coronary bypass surgery discharge instructions were discussed and explained. Including activity restrictions, progressive mobility, incisional care, and medication compliance. Our office will contact once discharge and arrange for follow-up in 1 to [address] Lynch and Dr. Pike. -- OBJECTIVE -- VITALS (06/16 10:18 - 06/17 10:18): Temperature F: 98.6 (98.0 - 98.6) Temperature source: Oral Pulse Rate 98 (84 - 114) Respiratory rate: 15 (13 - 27) Blood pressure: 112/59 (85/55 - 144/73) Blood pressure source: Monitor I/Os (06/16 07:00 - 06/17 07:00): Net -1,860.00 Intake 640.00 Output 2,500 -- DATA -- MEDICATIONS HYDROmorphone HCL 0.5 MG IV Q6H PRN SODIUM CHLORIDE 0.9% 1000 ML IV .Q24H DOCUSATE SODIUM 200 MG PO DAILY cloNIDine HCL 0.1 MG PO Q8H PRN ACETAMINOPHEN 650 MG PO Q4H PRN ATORVASTATIN CALCIUM 80 MG PO BEDTIME DEXTROSE 50%-WATER 25 ML IV ASDIR PRN ACETAMINOPHEN 1000 MG IV Q6H PRN METOPROLOL TARTRATE 12.5 MG PO BID POTASSIUM CHLORIDE 20 MEQ PO ASDIR (PRN) ONDANSETRON 4 MG PO Q6H PRN hydrALAZINE HCL 5 MG IV Q6HR PRN FOLIC ACID 1 MG PO DAILY GLUCAGON 1 MG IM ASDIR PRN CYANOCOBALAMIN 500 MCG PO DAILY POTASSIUM CHLORIDE 20 MEQ IV ASDIR (PRN) MAGNESIUM 1 GM IV ASDIR PRN ENOXAPARIN SODIUM 40 MG SUBQ DAILY methocarbamoL 1000 MG PO TID polyethylene glycoL 3350 1 PKT PO DAILY ASPIRIN 81 MG PO DAILY THIAMINE HCL 100 MG PO DAILY HYDROcodone BITARTRATE/APAP 1 TAB PO Q4H PRN SODIUM PHOSPHATE with/in SODIUM CHLORIDE 0.9% 20 MM IV ASDIR (PRN) traZODone HCL 100 MG PO BEDTIME CALCIUM GLUC IN NACL, ISO-OSM 2 GM IV ASDIR PRN SODIUM PHOSPHATE with/in SODIUM CHLORIDE 0.9% 30 MM IV ASDIR (PRN) clopidogreL 75 MG PO DAILY METOPROLOL TARTRATE 5 MG IV Q6H PRN FERROUS SULFATE 325 MG PO DAILY ALPRAZolam 0.5 MG PO TID PRN SODIUM CHLORIDE 10 mL 10 ML IV ASDIR MUPIROCIN 1 APPLIC NASAL BID LIDOCAINE 2 PATCH TRANSDERM DAILY PREGABALIN 50 MG PO BID bisacodyL 10 MG RECTAL ASDIR PRN FUROSEMIDE 20 MG PO QAM ONDANSETRON HCL/PF 4 MG IV Q6H PRN POTASSIUM CHLORIDE 20 MEQ PO DAILY ESCITALOPRAM 20 MG PO DAILY LABS CBC W/AUTO DIFF (06/18/23 03:40) WHITE BLOOD CELL 9.0 RED BLOOD CELL 2.79 L HEMOGLOBIN 9.1L L HEMATOCRIT 27.1L L MEAN CELL VOLUME 97.1 H MEAN CELL HGB 32.6 H MEAN CELL HGB CONCENTRATION 33.6 RED CELL DISTRIBUTION WIDTH 13.5 PLATELET COUNT 214 MEAN PLATELET VOLUME 9.9 NEUTROPHIL % 71.1 LYMPHOCYTE % 13.1 L MONOCYTE % 12.7 H EOSINOPHIL % 1.1 BASOPHIL % 0.4 NEUTROPHIL # 6.41 LYMPHOCYTE # 1.18 MONOCYTE # 1.15 H EOSINOPHIL # 0.10 BASOPHIL # 0.04 BASIC METABOLIC PANEL (06/18/23 03:40) SODIUM 131L L POTASSIUM 4.5 CHLORIDE 95L L CARBON DIOXIDE 30 GLUCOSE 85 BLOOD UREA NITROGEN 8L L GLOMERULAR FILTRATION RATE >=60 max estimate CREATININE 0.90 CALCIUM 8.5 L MAG (06/17/23 16:10) MAGNESIUM 1.9 CBC W/AUTO DIFF (06/17/23 16:10) WHITE BLOOD CELL 8.6 RED BLOOD CELL 2.80 L HEMOGLOBIN 9.2L L HEMATOCRIT 27.0L L MEAN CELL VOLUME 96.4 H MEAN CELL HGB 32.9 H MEAN CELL HGB CONCENTRATION 34.1 RED CELL DISTRIBUTION WIDTH 13.2 PLATELET COUNT 186 MEAN PLATELET VOLUME 9.8 NEUTROPHIL % 72.1 LYMPHOCYTE % 14.0 L MONOCYTE % 11.6 H EOSINOPHIL % 0.9 BASOPHIL % 0.2 NEUTROPHIL # 6.23 LYMPHOCYTE # 1.21 MONOCYTE # 1.00 H EOSINOPHIL # 0.08 BASOPHIL # 0.02 BASIC METABOLIC PANEL (06/17/23 16:10) SODIUM 131L L POTASSIUM 3.6 CHLORIDE 95L L CARBON DIOXIDE 30 GLUCOSE 92 BLOOD UREA NITROGEN 9 GLOMERULAR FILTRATION RATE >=60 max estimate CREATININE 0.80 CALCIUM 8.5 L PHOS (06/17/23 16:10) PHOSPHOROUS 2.2 L Signed in PatientKeeper by Edis Nogueira on 06/18/23 at 10:57 at 1057 ATTENTION *EDITS and/or ADDENDA must be made in Patient Keeper for this note. * * Edits and ammendments created in [employer] are not visible * * in Patient Keeper or the legal medical record ([facility]). * RPT #: [id number] END OF REPORT [facility] 2023-06-18 08:58:00 [facility] ([facility]) Hospitalist Progress Note REPORT #: [id number] REPORT STATUS: Signed DATE: 06/18/23 TIME: 08 PATIENT: KOTA MONTES UNIT #: [id number] ROOM #: P.[id number] BED: 1 : 61 AGE: 62 SEX: M ATTEND: Sherrie Stein MD ADM AUTHOR: Keenan Kumari MD ATTENTION *EDITS and/or ADDENDA must be made in Patient Keeper for this note. * * Edits and ammendments created in [employer] are not visible * * in Patient Keeper or the legal medical record ([facility]). * -- ASSESSMENT AND PLAN -- PROBLEMS: 1: Coronary artery disease 2: Chest pain, unspecified type 3: Non-ST elevation (NSTEMI) myocardial infarction 4: Alcohol abuse with unspecified alcohol-induced disorder 5: Unstable angina 6: Cervicalgia 7: Alcohol abuse 8: Heart failure, unspecified 9: Chronic disease anemia 10: Hypertension, essential ADDITIONAL COMMENTS: 1. Recurrent chest pain, in a patient with a known history of severe multivessel coronary artery disease, status post multiple interventions. Serial cardiac enzymes are negative and myocardial infarction has been ruled out. I will continue aspirin, Brilinta, metoprolol and atorvastatin. selective coronary angiogram by Dr. Kurtis Lynch 05/30 revealing severe multivessel coronary artery disease, not amenable to further angioplasty. 2. Abdominal distention and pain, rule out ileus/bowel obstruction. Abdominal x-ray non diagnostic. 3. Hypertension. Continue metoprolol. 4. Hyperlipidemia. Continue atorvastatin 40 mg daily. 5. Alcohol abuse. Delirium tremens prophylaxis. 6. Nicotine dependence, we will offer a Nicoderm patch. 7. Anxiety/depression, not otherwise specified. Continue escitalopram. 8. Severe hyponatremia. The patient has previously had similar hyponatremia and etiology is unclear. 9. Gross noncompliance with instructions and therapy 10. Anxiety. Supportive treatment. 06/16: took over from Dr Tilley due to ethnic/gnosticism discrimination and abuse. Is s/p CABG post operatively doing well and being optimized by cardiac/Ct surgical service 06/17: stable. continue optimization. awaiting clearance for discharge by cardio/surgical service Keenan Kumari MD Internal Medicine -- SUBJECTIVE -- PATIENT NARRATIVE: no acute issues overnight stable afebrile no n/v/d no cp/sob pain control, PT/OT -REVIEW OF SYSTEMS- COMMENT: 10 point ROS negative unless noted. -- OBJECTIVE -- -EXAM- GENERAL: Well developed, well nourished, in no apparent distress. HEAD: Normocephalic, atraumatic. EARS: grossly normal hearing. NOSE: No deformity, no discharge MOUTH: Oropharynx without deformities or lesions, normal mucosa. CHEST: sternotomy site c/d/i, chest tubes and TPW noted LUNGS: Clear bilaterally with normal respiratory effort. HEART: Regular rate and rhythm, normal S1, S2, no murmurs EXTREMITIES: No clubbing, no cyanosis, no edema. NEUROLOGICAL: No focal deficits, cranial nerves II-XII grossly intact PSYCHIATRIC: Alert and oriented to time, person, place. Signed in PatientKeeper by Keenan Kumari MD on 06/18/23 at 09:01 at 0901 ATTENTION *EDITS and/or ADDENDA must be made in Patient Keeper for this note. * * Edits and ammendments created in [employer] are not visible * * in Patient Keeper or the legal medical record (HPF). * RPT #: [id number] END OF REPORT [facility] 2023-06-18 08:03:00 [facility] ([facility]) Cardiology Progress Notes REPORT #: [id number] REPORT STATUS: Signed DATE: 06/18/23 TIME: 802 PATIENT: KOTA MONTES UNIT #: [id number] ROOM #: P.[id number] BED: A : 61 AGE: 62 SEX: M ATTEND: Keenan Kumari MD ADM AUTHOR: Hanh Mcgraw DO [facility] ATTENTION *EDITS and/or ADDENDA must be made in Patient Keeper for this note. * * Edits and ammendments created in [employer] are not visible * * in Patient Keeper or the legal medical record (HPF). * -- CO-SIGNATURE -- COMMENTS: I have seen and examined the patient with the business department chair fellow Dr. Hanh Mcgraw MD on 06/18/2023. I have reviewed all the clinical information, lab investigations, and imaging data. I agree with the following examination, findings, assessment and plan. I was present and supervised. Signed in PatientKeeper by KURTIS LYNCH MD on 06/19/23 at 06:49 -- ASSESSMENT AND PLAN -- HOSPITAL COURSE TO DATE: 05/28: upgraded overnight for unstable angina on nitro drip, plan for PCI Monday 05/29: stable 05/30: plan for PCI 06/12: s/p 2V CAB (BOGGS to LAD, SVG to OM1); extubated 06/13: stable 06/16: stable, pain management consulted 06/17: stable GENERAL ASSESSMENT: Mr. Montes is a 62-year-old gentleman (patient of Dr. Giordano) has a PMHx of coronary artery disease (s/p PCI 2005, 06/2022, 12/24/2022), h/o NM (2005), family history of coronary artery disease, h/o alcohol abuse, nicotine use, hypertension, hyperlipidemia. He underwent percutaneous coronary intervention with rotablation and placement of 2 stents in the LCx on 12/24/[address] Lynch and Dr[address] Malachi Fitzgerald (see op-note). He was discharged on stable condition on 12/25/22. He presented at an outside emergency room on 04/05/2023 with complaint of chest pain and shortness of breath, and he left against medical advise prior any intervention. He presented today (05/28/23) at [facility] with complaints of shortness of breath and left sided localized sharp chest pain that started earlier today. He reports the symptoms are similar when he had the previous percutaneous coronary interventions. He reports being complaint taking his medications, including DAPT. Workup showed negative troponin, BNP 78, Na 128. EKG shows normal sinus rhythm and left bundle branch block. Chest x-ray showed unremarkable frontal chest radiograph. He was admitted for further evaluation and management. S/p CABG x2v 06/12. Plan: PT/OT/IS, pain management. PROBLEMS: 1: Coronary artery disease/chest pain A/P: - s/p [id number] 06/12 - AHA C, NYHA 3 - CT surgery managing - cont lopressor 12.5mg po bid - cont ASA/Plavix - cont statin - PT/OT/IS - monitor on tele -- SUBJECTIVE -- CHIEF COMPLAINT: DRISS this AM. KARTIK overnight. No new complaints. Tele: NSR 98bpm -REVIEW OF SYSTEMS- COMMENT: 10 point ROS negative unless noted. -- OBJECTIVE -- VITALS (06/16 08:03 - 06/17 08:03): Temperature F: 98.6 (98.0 - 98.6) Temperature source: Oral Pulse Rate 98 (84 - 114) Respiratory rate: 15 (13 - 31) Blood pressure: 112/59 (85/55 - 144/73) Blood pressure source: Monitor I/Os (06/16 07:00 - 06/17 07:00): Net -1,860.00 Intake 640.00 Output 2,500 -EXAM- GENERAL: Well developed, well nourished, in no apparent distress. HEAD: Normocephalic, atraumatic. EARS: grossly normal hearing. NOSE: No deformity, no discharge MOUTH: Oropharynx without deformities or lesions, normal mucosa. CHEST: sternotomy site c/d/i, chest tubes and TPW noted LUNGS: Clear bilaterally with normal respiratory effort. HEART: Regular rate and rhythm, normal S1, S2, no murmurs EXTREMITIES: No clubbing, no cyanosis, no edema. NEUROLOGICAL: No focal deficits, cranial nerves II-XII grossly intact PSYCHIATRIC: Alert and oriented to time, person, place. -- DATA -- MEDICATIONS HYDROmorphone HCL 0.5 MG IV Q6H PRN SODIUM CHLORIDE 0.9% 1000 ML IV .Q24H DOCUSATE SODIUM 200 MG PO DAILY FUROSEMIDE 40 MG IV BID cloNIDine HCL 0.1 MG PO Q8H PRN ACETAMINOPHEN 650 MG PO Q4H PRN ATORVASTATIN CALCIUM 80 MG PO BEDTIME DEXTROSE 50%-WATER 25 ML IV ASDIR PRN ACETAMINOPHEN 1000 MG IV Q6H PRN METOPROLOL TARTRATE 12.5 MG PO BID POTASSIUM CHLORIDE 20 MEQ PO ASDIR (PRN) ONDANSETRON 4 MG PO Q6H PRN hydrALAZINE HCL 5 MG IV Q6HR PRN FOLIC ACID 1 MG PO DAILY GLUCAGON 1 MG IM ASDIR PRN CYANOCOBALAMIN 500 MCG PO DAILY POTASSIUM CHLORIDE 20 MEQ IV ASDIR (PRN) MAGNESIUM 1 GM IV ASDIR PRN ENOXAPARIN SODIUM 40 MG SUBQ DAILY methocarbamoL 1000 MG PO TID polyethylene glycoL 3350 1 PKT PO DAILY ASPIRIN 81 MG PO DAILY THIAMINE HCL 100 MG PO DAILY HYDROcodone BITARTRATE/APAP 1 TAB PO Q4H PRN SODIUM PHOSPHATE with/in SODIUM CHLORIDE 0.9% 20 MM IV ASDIR (PRN) traZODone HCL 100 MG PO BEDTIME CALCIUM GLUC IN NACL, ISO-OSM 2 GM IV ASDIR PRN SODIUM PHOSPHATE with/in SODIUM CHLORIDE 0.9% 30 MM IV ASDIR (PRN) clopidogreL 75 MG PO DAILY METOPROLOL TARTRATE 5 MG IV Q6H PRN FERROUS SULFATE 325 MG PO DAILY ALPRAZolam 0.5 MG PO TID PRN SODIUM CHLORIDE 10 mL 10 ML IV ASDIR MUPIROCIN 1 APPLIC NASAL BID LIDOCAINE 2 PATCH TRANSDERM DAILY PREGABALIN 50 MG PO BID bisacodyL 10 MG RECTAL ASDIR PRN NITROGLYCERIN 0.4 MG SL Q5M PRN ONDANSETRON HCL/PF 4 MG IV Q6H PRN ESCITALOPRAM 20 MG PO DAILY LABS CBC W/AUTO DIFF (06/18/23 03:40) WHITE BLOOD CELL 9.0 RED BLOOD CELL 2.79 L HEMOGLOBIN 9.1L L HEMATOCRIT 27.1L L MEAN CELL VOLUME 97.1 H MEAN CELL HGB 32.6 H MEAN CELL HGB CONCENTRATION 33.6 RED CELL DISTRIBUTION WIDTH 13.5 PLATELET COUNT 214 MEAN PLATELET VOLUME 9.9 NEUTROPHIL % 71.1 LYMPHOCYTE % 13.1 L MONOCYTE % 12.7 H EOSINOPHIL % 1.1 BASOPHIL % 0.4 NEUTROPHIL # 6.41 LYMPHOCYTE # 1.18 MONOCYTE # 1.15 H EOSINOPHIL # 0.10 BASOPHIL # 0.04 BASIC METABOLIC PANEL (06/18/23 03:40) SODIUM 131L L POTASSIUM 4.5 CHLORIDE 95L L CARBON DIOXIDE 30 GLUCOSE 85 BLOOD UREA NITROGEN 8L L GLOMERULAR FILTRATION RATE >=60 max estimate CREATININE 0.90 CALCIUM 8.5 L MAG (06/17/23 16:10) MAGNESIUM 1.9 CBC W/AUTO DIFF (06/17/23 16:10) WHITE BLOOD CELL 8.6 RED BLOOD CELL 2.80 L HEMOGLOBIN 9.2L L HEMATOCRIT 27.0L L MEAN CELL VOLUME 96.4 H MEAN CELL HGB 32.9 H MEAN CELL HGB CONCENTRATION 34.1 RED CELL DISTRIBUTION WIDTH 13.2 PLATELET COUNT 186 MEAN PLATELET VOLUME 9.8 NEUTROPHIL % 72.1 LYMPHOCYTE % 14.0 L MONOCYTE % 11.6 H EOSINOPHIL % 0.9 BASOPHIL % 0.2 NEUTROPHIL # 6.23 LYMPHOCYTE # 1.21 MONOCYTE # 1.00 H EOSINOPHIL # 0.08 BASOPHIL # 0.02 BASIC METABOLIC PANEL (06/17/23 16:10) SODIUM 131L L POTASSIUM 3.6 CHLORIDE 95L L CARBON DIOXIDE 30 GLUCOSE 92 BLOOD UREA NITROGEN 9 GLOMERULAR FILTRATION RATE >=60 max estimate CREATININE 0.80 CALCIUM 8.5 L PHOS (06/17/23 16:10) PHOSPHOROUS 2.2 L Signed in PatientKeeper by Hanh Mcgraw on 06/18/23 at 08:04 Cosigned by KURTIS LYNCH MD on 06/19/23 at 06:49 at 0649 at 0649 ATTENTION *EDITS and/or ADDENDA must be made in Patient Keeper for this note. * * Edits and ammendments created in [employer] are not visible * * in Patient Keeper or the legal medical record ([facility]). * RPT #: [id number] END OF REPORT [facility] 2023-06-17 11:53:00 [facility] ([facility]) Cardiology Progress Notes REPORT #: [id number] REPORT STATUS: Signed DATE: 06/17/23 TIME: 1153 PATIENT: KOTA MONTES UNIT #: [id number] ROOM #: P.0303 BED: 1 : 61 AGE: 62 SEX: M ATTEND: Sherrie Stein MD ADM AUTHOR: Hanh Mcgraw DO [facility] ATTENTION *EDITS and/or ADDENDA must be made in Patient Keeper for this note. * * Edits and ammendments created in [employer] are not visible * * in Patient Keeper or the legal medical record ([facility]). * -- CO-SIGNATURE -- COMMENTS: I have seen and examined the patient with the business department chair fellow Dr. Hanh Mcgraw MD on June 17, 2023. I have reviewed all the clinical information, lab investigations, and imaging data. I agree with the following examination, findings, assessment and plan. I was present and supervised. Signed in PatientKeeper by KURTIS LYNCH MD on 06/17/23 at 15:54 -- ASSESSMENT AND PLAN -- HOSPITAL COURSE TO DATE: 05/28: upgraded overnight for unstable angina on nitro drip, plan for PCI Monday 05/29: stable 05/30: plan for PCI 06/12: s/p 2V CAB (BOGGS to LAD, SVG to OM1); extubated 06/13: stable 06/16: stable, pain management consulted GENERAL ASSESSMENT: Mr. Montes is a 62-year-old gentleman (patient of Dr. Giordano) has a PMHx of coronary artery disease (s/p PCI 2005, 06/2022, 12/24/2022), h/o NM (2005), family history of coronary artery disease, h/o alcohol abuse, nicotine use, hypertension, hyperlipidemia. He underwent percutaneous coronary intervention with rotablation and placement of 2 stents in the LCx on 12/24/[address] Lynch and Dr[address] Malachi Fitzgerald (see op-note). He was discharged on stable condition on 12/25/22. He presented at an outside emergency room on 04/05/2023 with complaint of chest pain and shortness of breath, and he left against medical advise prior any intervention. He presented today (05/28/23) at [facility] with complaints of shortness of breath and left sided localized sharp chest pain that started earlier today. He reports the symptoms are similar when he had the previous percutaneous coronary interventions. He reports being complaint taking his medications, including DAPT. Workup showed negative troponin, BNP 78, Na 128. EKG shows normal sinus rhythm and left bundle branch block. Chest x-ray showed unremarkable frontal chest radiograph. He was admitted for further evaluation and management. S/p CABG x2v 06/12. Plan: PT/OT/IS, pain management. PROBLEMS: 1: Coronary artery disease/chest pain A/P: - s/p [id number] 06/12 - AHA C, NYHA 3 - CT surgery managing - cont lopressor 12.5mg po bid - cont ASA/Plavix - cont statin - PT/OT/IS - monitor on tele -- SUBJECTIVE -- CHIEF COMPLAINT: DRISS this AM. KARTIK overnight. No new complaints. Tele: NSR 93BPM -REVIEW OF SYSTEMS- COMMENT: 10 point ROS negative unless noted. -- OBJECTIVE -- VITALS (06/15 11:53 - 06/16 11:53): Temperature F: 98.2 (97.9 - 98.2) Temperature source: Oral Pulse Rate 92 (87 - 107) Respiratory rate: 31 (12 - 39) Blood pressure: 117/71 (85/50 - 150/72) Blood pressure source: Monitor I/Os (06/15 07:00 - 06/16 07:00): Net -2,565.00 Intake 200.00 Output 2,765 -EXAM- GENERAL: Well developed, well nourished, in no apparent distress. HEAD: Normocephalic, atraumatic. EARS: grossly normal hearing. NOSE: No deformity, no discharge MOUTH: Oropharynx without deformities or lesions, normal mucosa. CHEST: sternotomy site c/d/i, chest tubes and TPW noted LUNGS: Clear bilaterally with normal respiratory effort. HEART: Regular rate and rhythm, normal S1, S2, no murmurs EXTREMITIES: No clubbing, no cyanosis, no edema. NEUROLOGICAL: No focal deficits, cranial nerves II-XII grossly intact PSYCHIATRIC: Alert and oriented to time, person, place. -- DATA -- MEDICATIONS SODIUM CHLORIDE 0.9% 1000 ML IV .Q24H DOCUSATE SODIUM 200 MG PO DAILY FUROSEMIDE 40 MG IV BID cloNIDine HCL 0.1 MG PO Q8H PRN ACETAMINOPHEN 650 MG PO Q4H PRN ATORVASTATIN CALCIUM 80 MG PO BEDTIME DEXTROSE 50%-WATER 25 ML IV ASDIR PRN ACETAMINOPHEN 1000 MG IV Q6H PRN METOPROLOL TARTRATE 12.5 MG PO BID POTASSIUM CHLORIDE 20 MEQ PO ASDIR (PRN) ONDANSETRON 4 MG PO Q6H PRN hydrALAZINE HCL 5 MG IV Q6HR PRN FOLIC ACID 1 MG PO DAILY GLUCAGON 1 MG IM ASDIR PRN CYANOCOBALAMIN 500 MCG PO DAILY POTASSIUM CHLORIDE 20 MEQ IV ASDIR (PRN) MAGNESIUM 1 GM IV ASDIR PRN ENOXAPARIN SODIUM 40 MG SUBQ DAILY methocarbamoL 1000 MG PO TID polyethylene glycoL 3350 1 PKT PO DAILY HYDROmorphone HCL 0.5 MG IV Q8H PRN ASPIRIN 81 MG PO DAILY THIAMINE HCL 100 MG PO DAILY HYDROcodone BITARTRATE/APAP 1 TAB PO Q4H PRN SODIUM PHOSPHATE with/in SODIUM CHLORIDE 0.9% 20 MM IV ASDIR (PRN) traZODone HCL 100 MG PO BEDTIME CALCIUM GLUC IN NACL, ISO-OSM 2 GM IV ASDIR PRN SODIUM PHOSPHATE with/in SODIUM CHLORIDE 0.9% 30 MM IV ASDIR (PRN) clopidogreL 75 MG PO DAILY METOPROLOL TARTRATE 5 MG IV Q6H PRN FERROUS SULFATE 325 MG PO DAILY ALPRAZolam 0.5 MG PO TID PRN SODIUM CHLORIDE 10 mL 10 ML IV ASDIR MUPIROCIN 1 APPLIC NASAL BID LIDOCAINE 2 PATCH TRANSDERM DAILY PREGABALIN 50 MG PO BID bisacodyL 10 MG RECTAL ASDIR PRN NITROGLYCERIN 0.4 MG SL Q5M PRN ONDANSETRON HCL/PF 4 MG IV Q6H PRN ESCITALOPRAM 20 MG PO DAILY LABS BASIC METABOLIC PANEL (06/17/23 04:21) SODIUM 130L L POTASSIUM 3.4D L D L CHLORIDE 95L L CARBON DIOXIDE 31 GLUCOSE 106 BLOOD UREA NITROGEN 10 GLOMERULAR FILTRATION RATE >=60 max estimate CREATININE 1.00 CALCIUM 8.6 L PHOS (06/17/23 04:21) PHOSPHOROUS 2.4 CBC W/AUTO DIFF (06/17/23 04:21) WHITE BLOOD CELL 10.3 RED BLOOD CELL 2.57 L HEMOGLOBIN 8.7L L HEMATOCRIT 24.3L L MEAN CELL VOLUME 94.6 D H MEAN CELL HGB 33.9 H MEAN CELL HGB CONCENTRATION 35.8 RED CELL DISTRIBUTION WIDTH 13.3 PLATELET COUNT 162 MEAN PLATELET VOLUME 10.4 NEUTROPHIL % 75.3 H LYMPHOCYTE % 10.4 L MONOCYTE % 11.9 H EOSINOPHIL % 0.8 BASOPHIL % 0.4 NEUTROPHIL # 7.74 H LYMPHOCYTE # 1.07 MONOCYTE # 1.22 H EOSINOPHIL # 0.08 BASOPHIL # 0.04 MAG (06/17/23 04:21) MAGNESIUM 1.8 MAG (06/16/23 18:00) MAGNESIUM 1.9 BASIC METABOLIC PANEL (06/16/23 18:00) SODIUM 127L L POTASSIUM 4.5 CHLORIDE 94L L CARBON DIOXIDE 32H H GLUCOSE 116H H BLOOD UREA NITROGEN 11 GLOMERULAR FILTRATION RATE >=60 max estimate CREATININE 1.00 CALCIUM 8.5 L PHOS (06/16/23 18:00) PHOSPHOROUS 2.5 Signed in PatientKeeper by Hanh [email or web address] on 06/17/23 at 12:02 Cosigned by KURTIS LYNCH MD on 06/17/23 at 15:54 at 1554 at 1554 ATTENTION *EDITS and/or ADDENDA must be made in Patient Keeper for this note. * * Edits and ammendments created in [employer] are not visible * * in Patient Keeper or the legal medical record (HPF). * RPT #: [id number] END OF REPORT [facility] 2023-06-17 08:50:00 [facility] ([facility]) Hospitalist Progress Note REPORT #: [id number] REPORT STATUS: Signed DATE: 06/17/23 TIME: 0850 PATIENT: KOTA MONTES UNIT #: [id number] ROOM #: P.[id number] BED: 1 : 61 AGE: 62 SEX: M ATTEND: Sherrie Stein MD ADM AUTHOR: Keenan Kumari MD ATTENTION *EDITS and/or ADDENDA must be made in Patient Keeper for this note. * * Edits and ammendments created in [employer] are not visible * * in Patient Keeper or the legal medical record (HPF). * -- ASSESSMENT AND PLAN -- PROBLEMS: 1: Coronary artery disease 2: Chest pain, unspecified type 3: Non-ST elevation (NSTEMI) myocardial infarction 4: Alcohol abuse with unspecified alcohol-induced disorder 5: Unstable angina 6: Cervicalgia 7: Alcohol abuse 8: Heart failure, unspecified 9: Chronic disease anemia 10: Hypertension, essential ADDITIONAL COMMENTS: 1. Recurrent chest pain, in a patient with a known history of severe multivessel coronary artery disease, status post multiple interventions. Serial cardiac enzymes are negative and myocardial infarction has been ruled out. I will continue aspirin, Brilinta, metoprolol and atorvastatin. selective coronary angiogram by Dr. Kurtis Lynch 05/30 revealing severe multivessel coronary artery disease, not amenable to further angioplasty. 2. Abdominal distention and pain, rule out ileus/bowel obstruction. Abdominal x-ray non diagnostic. 3. Hypertension. Continue metoprolol. 4. Hyperlipidemia. Continue atorvastatin 40 mg daily. 5. Alcohol abuse. Delirium tremens prophylaxis. 6. Nicotine dependence, we will offer a Nicoderm patch. 7. Anxiety/depression, not otherwise specified. Continue escitalopram. 8. Severe hyponatremia. The patient has previously had similar hyponatremia and etiology is unclear. 9. Gross noncompliance with instructions and therapy 10. Anxiety. Supportive treatment. 06/16: took over from Dr Tilley due to ethnic/gnosticism discrimination and abuse. Is s/p CABG post operatively doing well and being optimized by cardiac/Ct surgical service Keenan Kumari MD Internal Medicine -- OBJECTIVE -- VITALS (06/15 08:50 - 06/16 08:50): Temperature F: 98.2 (97.9 - 98.2) Temperature source: Oral Pulse Rate 95 (87 - 113) Respiratory rate: 14 (12 - 39) Blood pressure: 105/58 (85/50 - 150/76) Blood pressure source: Monitor I/Os (06/15 07:00 - 06/16 07:00): Net -2,565.00 Intake 200.00 Output 2,765 -- DATA -- MEDICATIONS SODIUM CHLORIDE 0.9% 1000 ML IV .Q24H DOCUSATE SODIUM 200 MG PO DAILY FUROSEMIDE 40 MG IV BID cloNIDine HCL 0.1 MG PO Q8H PRN ACETAMINOPHEN 650 MG PO Q4H PRN ATORVASTATIN CALCIUM 80 MG PO BEDTIME DEXTROSE 50%-WATER 25 ML IV ASDIR PRN ACETAMINOPHEN 1000 MG IV Q6H PRN METOPROLOL TARTRATE 12.5 MG PO BID POTASSIUM CHLORIDE 20 MEQ PO ASDIR (PRN) ONDANSETRON 4 MG PO Q6H PRN hydrALAZINE HCL 5 MG IV Q6HR PRN FOLIC ACID 1 MG PO DAILY GLUCAGON 1 MG IM ASDIR PRN CYANOCOBALAMIN 500 MCG PO DAILY POTASSIUM CHLORIDE 20 MEQ IV ASDIR (PRN) MAGNESIUM 1 GM IV ASDIR PRN ENOXAPARIN SODIUM 40 MG SUBQ DAILY methocarbamoL 1000 MG PO TID polyethylene glycoL 3350 1 PKT PO DAILY ASPIRIN 81 MG PO DAILY THIAMINE HCL 100 MG PO DAILY HYDROcodone BITARTRATE/APAP 1 TAB PO Q4H PRN SODIUM PHOSPHATE with/in SODIUM CHLORIDE 0.9% 20 MM IV ASDIR (PRN) traZODone HCL 100 MG PO BEDTIME CALCIUM GLUC IN NACL, ISO-OSM 2 GM IV ASDIR PRN SODIUM PHOSPHATE with/in SODIUM CHLORIDE 0.9% 30 MM IV ASDIR (PRN) clopidogreL 75 MG PO DAILY METOPROLOL TARTRATE 5 MG IV Q6H PRN FERROUS SULFATE 325 MG PO DAILY ALPRAZolam 0.5 MG PO TID PRN SODIUM CHLORIDE 10 mL 10 ML IV ASDIR MUPIROCIN 1 APPLIC NASAL BID LIDOCAINE 2 PATCH TRANSDERM DAILY PREGABALIN 50 MG PO BID bisacodyL 10 MG RECTAL ASDIR PRN NITROGLYCERIN 0.4 MG SL Q5M PRN ONDANSETRON HCL/PF 4 MG IV Q6H PRN ESCITALOPRAM 20 MG PO DAILY LABS BASIC METABOLIC PANEL (06/17/23 04:21) SODIUM 130L L POTASSIUM 3.4D L D L CHLORIDE 95L L CARBON DIOXIDE 31 GLUCOSE 106 BLOOD UREA NITROGEN 10 GLOMERULAR FILTRATION RATE >=60 max estimate CREATININE 1.00 CALCIUM 8.6 L PHOS (04/15/24 04:21) PHOSPHOROUS 2.4 CBC W/AUTO DIFF (06/17/23 04:21) WHITE BLOOD CELL 10.3 RED BLOOD CELL 2.57 L HEMOGLOBIN 8.7L L HEMATOCRIT 24.3L L MEAN CELL VOLUME 94.6 D H MEAN CELL HGB 33.9 H MEAN CELL HGB CONCENTRATION 35.8 RED CELL DISTRIBUTION WIDTH 13.3 PLATELET COUNT 162 MEAN PLATELET VOLUME 10.4 NEUTROPHIL % 75.3 H LYMPHOCYTE % 10.4 L MONOCYTE % 11.9 H EOSINOPHIL % 0.8 BASOPHIL % 0.4 NEUTROPHIL # 7.74 H LYMPHOCYTE # 1.07 MONOCYTE # 1.22 H EOSINOPHIL # 0.08 BASOPHIL # 0.04 MAG (06/17/23 04:21) MAGNESIUM 1.8 MAG (06/16/23 18:00) MAGNESIUM 1.9 BASIC METABOLIC PANEL (06/16/23 18:00) SODIUM 127L L POTASSIUM 4.5 CHLORIDE 94L L CARBON DIOXIDE 32H H GLUCOSE 116H H BLOOD UREA NITROGEN 11 GLOMERULAR FILTRATION RATE >=60 max estimate CREATININE 1.00 CALCIUM 8.5 L PHOS (06/16/23 18:00) PHOSPHOROUS 2.5 Signed in PatientKeeper by Keenan Kumari MD on 06/17/23 at 08:52 at 0852 ATTENTION *EDITS and/or ADDENDA must be made in Patient Keeper for this note. * * Edits and ammendments created in [facility] are not visible * * in Patient Keeper or the legal medical record (HPF). * [facility] #: [id number] END OF REPORT [facility] 2023-06-16 12:24:00 [facility] ([facility]) Cardiology Progress Notes REPORT #: [id number] REPORT STATUS: Signed DATE: 06/16/23 TIME: 1224 PATIENT: KOTA MONTES UNIT #: [id number] ROOM #: P.[id number] BED: A : 61 AGE: 62 SEX: M ATTEND: Keenan Kumari MD ADM AUTHOR: Claire Artis MD CF1 ATTENTION *EDITS and/or ADDENDA must be made in Patient Keeper for this note. * * Edits and ammendments created in [employer] are not visible * * in Patient Keeper or the legal medical record (HPF). * -- CO-SIGNATURE -- COMMENTS: I have seen and examined the patient with business education teacher Dr. Claire Artis MD * my personal evaluation is s/p [id number] on 06/13/2023 decrease the dose of Dilaudid to 0.5 mg every 6 hours continue DAPT with aspirin and Plavix Continue metoprolol, Lipitor Maintain MAP 70-90 Strict I Os and daily standing weight Maintain K 4 and Mg 2 Trend CBC, BMP I have reviewed all the clinical information, lab investigations, and imaging data. I agree with the examination, findings, assessment and plan. I have discussed the patient's condition with other consultants and members of the care team I was present and supervised. Life threatening disease due to CAD-status post CABG during this admission Organ systems impaired or failing: Cardiac Signed in PatientKeeper by GUILLAUME SUMNER MD on 06/18/23 at 13:34 -- ASSESSMENT AND PLAN -- HOSPITAL COURSE TO DATE: 3/27: upgraded overnight for unstable angina on nitro drip, plan for PCI Monday 05/29: stable 05/30: plan for PCI 06/12: s/p 2V CAB (BOGGS to LAD, SVG to OM1); extubated 06/13: stable 06/14 Stable, 06/15: Stable, excessive pain medication requirement noted. GENERAL ASSESSMENT: Mr. Montes is a 62-year-old gentleman (patient of Dr. Giordano) has a PMHx of coronary artery disease (s/p PCI 2005, 06/2022, 12/24/2022), h/o NM (2005), family history of coronary artery disease, h/o alcohol abuse, nicotine use, hypertension, hyperlipidemia. He underwent percutaneous coronary intervention with rotablation and placement of 2 stents in the LCx on 12/24/[address] Lynch and Dr. Malachi Fitzgerald (see op-note). He was discharged on stable condition on 12/25/22. He presented at an outside emergency room on 04/05/2023 with complaint of chest pain and shortness of breath, and he left against medical advise prior any intervention. He presented today (05/28/23) at [facility] with complaints of shortness of breath and left sided localized sharp chest pain that started earlier today. He reports the symptoms are similar when he had the previous percutaneous coronary interventions. He reports being complaint taking his medications, including DAPT. Workup showed negative troponin, BNP 78, Na 128. EKG shows normal sinus rhythm and left bundle branch block. Chest x-ray showed unremarkable frontal chest radiograph. He was admitted for further evaluation and management. S/p CABG x2v 06/12. Plan: PT/OT/IS. PROBLEMS: 1: Coronary artery disease/chest pain A/P: - s/p [id number] 06/12 - Chest tubes coming out today as per CV Surgery. - cont ASA/Statin -Metoprolol tartrate at 12.5 mg BID, -Patient is on Plavix already. - PT/OT/IS - monitor on tele Pt advised about the pain medication requirement; He is off of Q2 Hours of Dilaudid, and transitioned to Dilaudid q6 hours. -- SUBJECTIVE -- CHIEF COMPLAINT: Leaning back in chair , no distress PATIENT NARRATIVE: Pt improved clinical status. Sitting up in chair, incentive spirometry encouraged. -REVIEW OF SYSTEMS- COMMENT: 10 point ROS negative unless noted. Excessive pain medication requirement noted. -- OBJECTIVE -- VITALS (06/14 12:24 - 06/15 12:24): Temperature F: 97.9 (97.8 - 97.9) Temperature source: Oral Pulse Rate 105 (81 - 140) Respiratory rate: 25 (10 - 36) Blood pressure: 123/63 (89/54 - 147/86) Blood pressure source: Monitor I/Os (06/14 07:00 - 06/15 07:00): Net -1,630.00 Intake 200.00 Output 1,830 -EXAM- GENERAL: Well developed, well nourished, in no apparent distress. HEAD: Normocephalic, atraumatic. EARS: grossly normal hearing. NOSE: No deformity, no discharge MOUTH: Oropharynx without deformities or lesions, normal mucosa. CHEST: sternotomy site c/d/i, chest tubes and TPW noted LUNGS: Clear bilaterally with normal respiratory effort. HEART: Regular rate and rhythm, normal S1, S2, no murmurs EXTREMITIES: No clubbing, no cyanosis, no edema. NEUROLOGICAL: No focal deficits, cranial nerves II-XII grossly intact PSYCHIATRIC: Alert and oriented to time, person, place. -- DATA -- MEDICATIONS SODIUM CHLORIDE 0.9% 1000 ML IV .Q24H DOCUSATE SODIUM 200 MG PO DAILY FUROSEMIDE 40 MG IV BID ACETAMINOPHEN 650 MG PO Q4H PRN cloNIDine HCL 0.1 MG PO Q8H PRN DEXTROSE 50%-WATER 25 ML IV ASDIR PRN ATORVASTATIN CALCIUM 80 MG PO BEDTIME ACETAMINOPHEN 1000 MG IV Q6H PRN METOPROLOL TARTRATE 12.5 MG PO BID ONDANSETRON 4 MG PO Q6H PRN hydrALAZINE HCL 5 MG IV Q6HR PRN FOLIC ACID 1 MG PO DAILY GLUCAGON 1 MG IM ASDIR PRN CYANOCOBALAMIN 500 MCG PO DAILY POTASSIUM CHLORIDE 20 MEQ IV ASDIR (PRN) MAGNESIUM 1 GM IV ASDIR PRN ENOXAPARIN SODIUM 40 MG SUBQ DAILY methocarbamoL 1000 MG PO TID polyethylene glycoL 3350 1 PKT PO DAILY ASPIRIN 81 MG PO DAILY THIAMINE HCL 100 MG PO DAILY HYDROcodone BITARTRATE/APAP 1 TAB PO Q4H PRN SODIUM PHOSPHATE with/in SODIUM CHLORIDE 0.9% 20 MM IV ASDIR (PRN) CALCIUM GLUC IN NACL, ISO-OSM 2 GM IV ASDIR PRN SODIUM PHOSPHATE with/in SODIUM CHLORIDE 0.9% 30 MM IV ASDIR (PRN) traZODone HCL 100 MG PO BEDTIME clopidogreL 75 MG PO DAILY METOPROLOL TARTRATE 5 MG IV Q6H PRN FERROUS SULFATE 325 MG PO DAILY ALPRAZolam 0.5 MG PO TID PRN SODIUM CHLORIDE 10 mL 10 ML IV ASDIR MUPIROCIN 1 APPLIC NASAL BID LIDOCAINE 2 PATCH TRANSDERM DAILY PREGABALIN 50 MG PO BID HYDROmorphone HCL 0.5 MG IV Q6H PRN LACTULOSE 30 ML PO ASDIR PRN bisacodyL 10 MG RECTAL ASDIR PRN NITROGLYCERIN 0.4 MG SL Q5M PRN ONDANSETRON HCL/PF 4 MG IV Q6H PRN ESCITALOPRAM 20 MG PO DAILY LABS MAG (06/16/23 04:14) MAGNESIUM 1.7 PHOS (06/16/23 04:14) PHOSPHOROUS 2.9 CBC W/AUTO DIFF (06/16/23 04:14) WHITE BLOOD CELL 11.5H H RED BLOOD CELL 2.87 L HEMOGLOBIN 9.7L L HEMATOCRIT 28.7L L MEAN CELL VOLUME 100.0 H MEAN CELL HGB 33.8 H MEAN CELL HGB CONCENTRATION 33.8 RED CELL DISTRIBUTION WIDTH 13.4 PLATELET COUNT 132L L MEAN PLATELET VOLUME 9.9 NEUTROPHIL % 77.1 H LYMPHOCYTE % 12.7 L MONOCYTE % 8.8 EOSINOPHIL % 0.5 BASOPHIL % 0.4 NEUTROPHIL # 8.88 H LYMPHOCYTE # 1.46 MONOCYTE # 1.02 H EOSINOPHIL # 0.06 BASOPHIL # 0.05 COMPREHENSIVE METABOLIC PANEL (06/16/23 04:14) SODIUM 130 L POTASSIUM 3.9 D CHLORIDE 96 L CARBON DIOXIDE 31 GLUCOSE 94 BLOOD UREA NITROGEN 11 GLOMERULAR FILTRATION RATE >=60 max estimate CREATININE 1.00 TOTAL PROTEIN 5.6 L ALBUMIN 3.6 CALCIUM 9.0 BILIRUBIN TOTAL 0.7 SGOT/AST 143 H SGPT/ALT 31 ALKALINE PHOSPHATASE 51.0 MAG (06/15/23 16:11) MAGNESIUM 1.8 PHOS (06/15/23 16:11) PHOSPHOROUS 2.5 BASIC METABOLIC PANEL (06/15/23 16:11) SODIUM 129L L POTASSIUM 4.9 CHLORIDE 98 CARBON DIOXIDE 26 GLUCOSE 101 BLOOD UREA NITROGEN 8L L GLOMERULAR FILTRATION RATE >=60 max estimate CREATININE 1.00 CALCIUM 8.5 L CBC W/AUTO DIFF (06/15/23 16:00) WHITE BLOOD CELL 13.3H H RED BLOOD CELL 2.95 L HEMOGLOBIN 9.9L L HEMATOCRIT 29.6L L MEAN CELL VOLUME 100.3 H MEAN CELL HGB 33.6 H MEAN CELL HGB CONCENTRATION 33.4 RED CELL DISTRIBUTION WIDTH 13.5 PLATELET COUNT 143L L MEAN PLATELET VOLUME 10.0 NEUTROPHIL % 82.4 H LYMPHOCYTE % 7.6 L MONOCYTE % 8.2 EOSINOPHIL % 0.5 BASOPHIL % 0.5 NEUTROPHIL # 11.01 H LYMPHOCYTE # 1.01 MONOCYTE # 1.09 H EOSINOPHIL # 0.06 BASOPHIL # 0.06 Signed in PatientKeeper by Claire Artis MD CF1 on 06/16/23 at 12:27 Cosigned by GUILLAUME SUMNER MD on 06/18/23 at 13:34 at 1334 at 1334 ATTENTION *EDITS and/or ADDENDA must be made in Patient Keeper for this note. * * Edits and ammendments created in [facility] are not visible * * in Patient Keeper or the legal medical record (HPF). * RPT #: [id number] END OF REPORT [facility] 2023-06-16 10:40:00 [facility] ([facility]) Intensive Care Progress Note REPORT #: [id number] REPORT STATUS: Signed DATE: 06/16/23 TIME: 1040 PATIENT: KOTA MONTES UNIT #: [id number] ROOM #: P.0303 BED: 1 : 61 AGE: 62 SEX: M ATTEND: Sherrie Stein MD ADM AUTHOR: Mandi Delarosa MD ATTENTION *EDITS and/or ADDENDA must be made in Patient Keeper for this note. * * Edits and ammendments created in [employer] are not visible * * in Patient Keeper or the legal medical record (HPF). * -- ASSESSMENT AND PLAN -- HOSPITAL COURSE TO DATE: Patient is a 62-year-old male with PMH notalbe for CAD s/p PCI ('06, 06/24, 12/24), HTN, HLD, h/o ETOH abuse, tobacco abuse, anxiety/depression, and medical non-compliance initially presenting on 05/27 with a chief complaint of chest pain. Patient admitted to [facility] for further evaluation and is admitted to the CVICU postoperatively following two-vessel coronary bypass. 06/12: s/p 2V CAB (BOGGS to LAD, SVG to OM1); extubated GENERAL ASSESSMENT: Plan: Pain/Sedation Acute Postoperative Pain -Known history of narcotic-seeking behavior -decreasing narcotics, continue multi-modal pain regimen: standing Lyrica, Robaxin, tramadol, and lidocaine patch, with APAP/Corinne 5mg/10mg PRN mild/moderate/severe pain, and Dilaudid 0.5mg IV Q6H PRN breakthrough pain Neuro/Psych Anxiety/Depression H/o ETOH Abuse -Continue home trazodone/Lexapro -Xanax PRN agitation/anxiety - continue daily thiamine/folic acid Respiratory Acute Respiratory Insufficiency - saturating well on NC -Encourage IS, pulmonary hygiene, serial CXRs/ABGs Cardiovascular CAD s/p PCI and 2V CAB HTN -Continue postoperative management following bypass -Intra-op MY with improvement in EF (45% -> 55%) -MAP goal >65 -V-pacer wires in place, currently NSR, not requiring pacing -Continue aspirin/statin, Plavix and Lopressor 12.5mg BID -Cardiology following, patient with known RCA lesion not amenable to surgical intervention, will require follow up PCI at later time Gastrointestinal -Advanced to regular diet -Postop bowel regimen Renal -Renal function WNL postoperatively -Lasix 40mg I BID -Maintain Singh for strict I/O -ICU electrolyte protocol ordered, maintain K >4.0, Phos >3.0, Mg >2.0 Infectious Disease Postoperative Leukocytosis (resolved) -Completed perioperative abx -Monitor fever curve, no indication for empiric abx Endocrine -No prior h/o DM, tight glycemic control postoperatively -Maintain goal BS 140-180 -Hypoglycemia protocol HEME Acute Blood Loss Anemia -Transfuse for goal Hgb >8.0, platelets >10k or 20k with bleeding, and fibrinogen >150 MSK -PT/OT following PPX -DVT: SCDs -GI: None GOC -Code: FULL per patient preoperatively and -Advance Care Planning: None per family Medications reviewed with ICU pharmacist Patient is critically ill and at risk of imminent life threatening injury or -- SUBJECTIVE -- PATIENT NARRATIVE: Overnight Events: No acute overnight events. 10 System, 2 point ROS negative except for above. -- OBJECTIVE -- VITALS (06/14 10:40 - 06/15 10:40): Temperature F: 97.9 (97.8 - 97.9) Temperature source: Oral Pulse Rate 105 (80 - 140) Respiratory rate: 25 (10 - 36) Blood pressure: 123/63 (82/50 - 147/86) Blood pressure source: Monitor I/Os (06/14 07:00 - 06/15 07:00): Net -1,630.00 Intake 200.00 Output 1,830 -- DATA -- MEDICATIONS SODIUM CHLORIDE 0.9% 1000 ML IV .Q24H DOCUSATE SODIUM 200 MG PO DAILY FUROSEMIDE 40 MG IV BID ACETAMINOPHEN 650 MG PO Q4H PRN cloNIDine HCL 0.1 MG PO Q8H PRN DEXTROSE 50%-WATER 25 ML IV ASDIR PRN ATORVASTATIN CALCIUM 80 MG PO BEDTIME ACETAMINOPHEN 1000 MG IV Q6H PRN METOPROLOL TARTRATE 12.5 MG PO BID ONDANSETRON 4 MG PO Q6H PRN hydrALAZINE HCL 5 MG IV Q6HR PRN FOLIC ACID 1 MG PO DAILY GLUCAGON 1 MG IM ASDIR PRN CYANOCOBALAMIN 500 MCG PO DAILY POTASSIUM CHLORIDE 20 MEQ IV ASDIR (PRN) MAGNESIUM 1 GM IV ASDIR PRN ENOXAPARIN SODIUM 40 MG SUBQ DAILY methocarbamoL 1000 MG PO TID polyethylene glycoL 3350 1 PKT PO DAILY ASPIRIN 81 MG PO DAILY THIAMINE HCL 100 MG PO DAILY HYDROcodone BITARTRATE/APAP 1 TAB PO Q4H PRN SODIUM PHOSPHATE with/in SODIUM CHLORIDE 0.9% 20 MM IV ASDIR (PRN) CALCIUM GLUC IN NACL, ISO-OSM 2 GM IV ASDIR PRN SODIUM PHOSPHATE with/in SODIUM CHLORIDE 0.9% 30 MM IV ASDIR (PRN) traZODone HCL 100 MG PO BEDTIME clopidogreL 75 MG PO DAILY METOPROLOL TARTRATE 5 MG IV Q6H PRN FERROUS SULFATE 325 MG PO DAILY ALPRAZolam 0.5 MG PO TID PRN SODIUM CHLORIDE 10 mL 10 ML IV ASDIR MUPIROCIN 1 APPLIC NASAL BID LIDOCAINE 2 PATCH TRANSDERM DAILY PREGABALIN 50 MG PO BID HYDROmorphone HCL 0.5 MG IV Q6H PRN LACTULOSE 30 ML PO ASDIR PRN bisacodyL 10 MG RECTAL ASDIR PRN NITROGLYCERIN 0.4 MG SL Q5M PRN ONDANSETRON HCL/PF 4 MG IV Q6H PRN ESCITALOPRAM 20 MG PO DAILY LABS MAG (06/16/23 04:14) MAGNESIUM 1.7 PHOS (06/16/23 04:14) PHOSPHOROUS 2.9 CBC W/AUTO DIFF (06/16/23 04:14) WHITE BLOOD CELL 11.5H H RED BLOOD CELL 2.87 L HEMOGLOBIN 9.7L L HEMATOCRIT 28.7L L MEAN CELL VOLUME 100.0 H MEAN CELL HGB 33.8 H MEAN CELL HGB CONCENTRATION 33.8 RED CELL DISTRIBUTION WIDTH 13.4 PLATELET COUNT 132L L MEAN PLATELET VOLUME 9.9 NEUTROPHIL % 77.1 H LYMPHOCYTE % 12.7 L MONOCYTE % 8.8 EOSINOPHIL % 0.5 BASOPHIL % 0.4 NEUTROPHIL # 8.88 H LYMPHOCYTE # 1.46 MONOCYTE # 1.02 H EOSINOPHIL # 0.06 BASOPHIL # 0.05 COMPREHENSIVE METABOLIC PANEL (06/16/23 04:14) SODIUM 130 L POTASSIUM 3.9 D CHLORIDE 96 L CARBON DIOXIDE 31 GLUCOSE 94 BLOOD UREA NITROGEN 11 GLOMERULAR FILTRATION RATE >=60 max estimate CREATININE 1.00 TOTAL PROTEIN 5.6 L ALBUMIN 3.6 CALCIUM 9.0 BILIRUBIN TOTAL 0.7 SGOT/AST 143 H SGPT/ALT 31 ALKALINE PHOSPHATASE 51.0 MAG (06/15/23 16:11) MAGNESIUM 1.8 PHOS (06/15/23 16:11) PHOSPHOROUS 2.5 BASIC METABOLIC PANEL (06/15/23 16:11) SODIUM 129L L POTASSIUM 4.9 CHLORIDE 98 CARBON DIOXIDE 26 GLUCOSE 101 BLOOD UREA NITROGEN 8L L GLOMERULAR FILTRATION RATE >=60 max estimate CREATININE 1.00 CALCIUM 8.5 L CBC W/AUTO DIFF (06/15/23 16:00) WHITE BLOOD CELL 13.3H H RED BLOOD CELL 2.95 L HEMOGLOBIN 9.9L L HEMATOCRIT 29.6L L MEAN CELL VOLUME 100.3 H MEAN CELL HGB 33.6 H MEAN CELL HGB CONCENTRATION 33.4 RED CELL DISTRIBUTION WIDTH 13.5 PLATELET COUNT 143L L MEAN PLATELET VOLUME 10.0 NEUTROPHIL % 82.4 H LYMPHOCYTE % 7.6 L MONOCYTE % 8.2 EOSINOPHIL % 0.5 BASOPHIL % 0.5 NEUTROPHIL # 11.01 H LYMPHOCYTE # 1.01 MONOCYTE # 1.09 H EOSINOPHIL # 0.06 BASOPHIL # 0.06 -- ATTESTATION -- TIME SPENT ON PATIENT CARE: - Critical Care: time spent apart from any procedure 30 minutes CARE ACTIVITIES / CARE COORDINATION: - I have reviewed the history and repeated the carias elements - I have seen and examined this patient - I have reviewed the progress in the clinical course since the last examination - I have discussed the patient's condition with other members of the care team Signed in PatientKeeper by Mandi Delarosa MD on 06/16/23 at 10:42 at 1042 ATTENTION *EDITS and/or ADDENDA must be made in Patient Keeper for this note. * * Edits and ammendments created in [employer] are not visible * * in Patient Keeper or the legal medical record ([facility]). * RPT #: [id number] END OF REPORT [facility] 2023-06-15 14:55:00 [facility] ([facility]) Intensive Care Progress Note REPORT #: [id number] REPORT STATUS: Signed DATE: 06/15/23 TIME: 1455 PATIENT: KOTA MONTES UNIT #: [id number] ROOM #: [id number] BED: 1 : 61 AGE: 62 SEX: M ATTEND: Sherrie Stein MD [facility] AUTHOR: Mandi Delarosa MD ATTENTION *EDITS and/or ADDENDA must be made in Patient Keeper for this note. * * Edits and ammendments created in [employer] are not visible * * in Patient Keeper or the legal medical record ([facility]). * -- ASSESSMENT AND PLAN -- HOSPITAL COURSE TO DATE: Patient is a 62-year-old male with PMH notalbe for CAD s/p PCI ('06, 06/24, 12/24), HTN, HLD, h/o ETOH abuse, tobacco abuse, anxiety/depression, and medical non-compliance initially presenting on 05/27 with a chief complaint of chest pain. Patient admitted to [facility] for further evaluation and is admitted to the CVICU postoperatively following two-vessel coronary bypass. 06/12: s/p 2V CAB (BOGGS to LAD, SVG to OM1); extubated GENERAL ASSESSMENT: Plan: Pain/Sedation Acute Postoperative Pain -Known history of narcotic-seeking behavior -Ok for narcotics immediately postop, continue multi-modal pain regimen: standing Lyrica, Robaxin, tramadol, and lidocaine patch, with APAP/Corinne 5mg/10mg PRN mild/moderate/severe pain, and Dilaudid 0.5mg IV Q2H PRN breakthrough pain Neuro/Psych Anxiety/Depression H/o ETOH Abuse -Exam non-focal -Continue home trazodone/Lexapro -Xanax PRN agitation/anxiety -Out of ETOH withdrawal window, continue daily thiamine/folic acid -Neurochecks per protocol, delirium precautions, frequent reorientation/redirection, optimize sleep/wake cycle Respiratory Acute Respiratory Insufficiency -Extubated to NC postoperatively, saturating well on NC -Encourage IS, pulmonary hygiene, serial CXRs/ABGs -on Lasix 40mg IV BID Cardiovascular CAD s/p PCI and 2V CAB HTN -Continue postoperative management following bypass -Intra-op MY with improvement in EF (45% -> 55%) -MAP goal >65 -V-pacer wires in place, currently NSR, not requiring pacing -Continue aspirin/statin, resume Plavix and Lopressor 12.5mg BID -Cardiology following, patient with known RCA lesion not amenable to surgical intervention, will require follow up PCI at later time Gastrointestinal -Advanced to regular diet -Postop bowel regimen Renal -Renal function WNL postoperatively -Lasix 40mg I BID -Maintain Singh for strict I/O -ICU electrolyte protocol ordered, maintain K >4.0, Phos >3.0, Mg >2.0 Infectious Disease Postoperative Leukocytosis (resolved) -Completed perioperative abx -Monitor fever curve, no indication for empiric abx Endocrine -No prior h/o DM, tight glycemic control postoperatively -Maintain goal BS 140-180 -Hypoglycemia protocol HEME Acute Blood Loss Anemia -Transfuse for goal Hgb >8.0, platelets >10k or 20k with bleeding, and fibrinogen >150 MSK -PT/OT following PPX -DVT: SCDs -GI: None GOC -Code: FULL per patient preoperatively and -Advance Care Planning: None per family Medications reviewed with ICU pharmacist Patient is critically ill and at risk of imminent life threatening injury or -- SUBJECTIVE -- PATIENT NARRATIVE: Overnight Events: No acute overnight events. 10 System, 2 point ROS negative except for above. -- OBJECTIVE -- VITALS (06/13 14:55 - 06/14 14:55): Temperature F: 98.0 (98.0 - 98.4) Temperature source: Oral Pulse Rate 81 (80 - 114) Respiratory rate: 32 (6 - 52) Blood pressure: 91/53 (82/50 - 132/118) Blood pressure source: Monitor I/Os (06/13 07:00 - 06/14 07:00): Net 470.00 Intake 2,490.00 Output 2,020 -- DATA -- MEDICATIONS DOCUSATE SODIUM 200 MG PO DAILY FUROSEMIDE 40 MG IV BID ACETAMINOPHEN 650 MG PO Q4H PRN DEXTROSE 50%-WATER 25 ML IV ASDIR PRN METOPROLOL TARTRATE 12.5 MG PO BID FOLIC ACID 1 MG PO DAILY GLUCAGON 1 MG IM ASDIR PRN CYANOCOBALAMIN 500 MCG PO DAILY POTASSIUM CHLORIDE 20 MEQ IV ASDIR (PRN) MAGNESIUM 1 GM IV ASDIR PRN methocarbamoL 1000 MG PO TID polyethylene glycoL 3350 1 PKT PO DAILY MAGNESIUM HYDROXIDE 30 ML PO ASDIR PRN HYDROcodone BITARTRATE/APAP 1 TAB PO Q4H PRN SODIUM PHOSPHATE with/in SODIUM CHLORIDE 0.9% 20 MM IV ASDIR (PRN) CALCIUM GLUC IN NACL, ISO-OSM 2 GM IV ASDIR PRN SODIUM PHOSPHATE with/in SODIUM CHLORIDE 0.9% 30 MM IV ASDIR (PRN) METOPROLOL TARTRATE 5 MG IV Q6H PRN FERROUS SULFATE 325 MG PO DAILY ALPRAZolam 0.5 MG PO TID PRN SODIUM CHLORIDE 10 mL 10 ML IV ASDIR MUPIROCIN 1 APPLIC NASAL BID PREGABALIN 50 MG PO BID HYDROmorphone HCL 0.5 MG IV Q2H PRN LACTULOSE 30 ML PO ASDIR PRN NITROGLYCERIN 0.4 MG SL Q5M PRN SODIUM CHLORIDE 0.9% 1000 ML IV .Q24H cloNIDine HCL 0.1 MG PO Q8H PRN ATORVASTATIN CALCIUM 80 MG PO BEDTIME ONDANSETRON 4 MG PO Q6H PRN hydrALAZINE HCL 5 MG IV Q6HR PRN ENOXAPARIN SODIUM 40 MG SUBQ DAILY ASPIRIN 81 MG PO DAILY THIAMINE HCL 100 MG PO DAILY traZODone HCL 100 MG PO BEDTIME clopidogreL 75 MG PO DAILY LIDOCAINE 2 PATCH TRANSDERM DAILY LACTULOSE 30 ML PO ASDIR PRN bisacodyL 10 MG RECTAL ASDIR PRN ONDANSETRON HCL/PF 4 MG IV Q6H PRN ESCITALOPRAM 20 MG PO DAILY LABS BLOOD GAS W/ELECTROLYTES (06/15/23 02:48) ARTERIAL BLOOD GAS PH 7.40 ARTERIAL BLOOD GAS PCO2 47.7 H ARTERIAL BLOOD GAS PO2 67.2 L BICARBONATE TOTAL HCO3 28.6 H BASE EXCESS 2.9 H ARTERIAL FIO2 44.0 ABG VENT MODE NASAL CANNULA ALLENS TEST NOT APPLICABLE SODIUM (POC) 125 L POTASSIUM (POC) 4.17 CHLORIDE (ARTERIAL) 93 L GLUCOSE 105 H IONIZED CALCIUM 1.11 L POC LACTIC ACID 2.19 TCO2 ARTERIAL 30.1 H CBC W/AUTO DIFF (06/15/23 02:43) WHITE BLOOD CELL 12.5H H RED BLOOD CELL 3.06 L HEMOGLOBIN 10.1L L HEMATOCRIT 30.3L L MEAN CELL VOLUME 99.0 H MEAN CELL HGB 33.0 H MEAN CELL HGB CONCENTRATION 33.3 RED CELL DISTRIBUTION WIDTH 13.5 PLATELET COUNT 139L L MEAN PLATELET VOLUME 9.7 NEUTROPHIL % 77.6 H LYMPHOCYTE % 11.0 L MONOCYTE % 10.4 H EOSINOPHIL % 0.2 BASOPHIL % 0.5 NEUTROPHIL # 9.69 H LYMPHOCYTE # 1.38 MONOCYTE # 1.30 H EOSINOPHIL # 0.03 BASOPHIL # 0.06 MAG (06/15/23 02:43) MAGNESIUM 1.8 PHOS (06/15/23 02:43) PHOSPHOROUS 2.5 COMPREHENSIVE METABOLIC PANEL (06/15/23 02:43) SODIUM 132 L POTASSIUM 4.3 CHLORIDE 100 CARBON DIOXIDE 27 GLUCOSE 108 H BLOOD UREA NITROGEN 10 GLOMERULAR FILTRATION RATE >=60 max estimate CREATININE 0.90 TOTAL PROTEIN 5.8 ALBUMIN 3.7 CALCIUM 8.7 BILIRUBIN TOTAL 0.6 SGOT/AST 270 H SGPT/ALT 43 ALKALINE PHOSPHATASE 49.0 BASIC METABOLIC PANEL (06/14/23 15:00) SODIUM 132L L POTASSIUM 3.9 CHLORIDE 99 CARBON DIOXIDE 28 GLUCOSE 106 BLOOD UREA NITROGEN 10 GLOMERULAR FILTRATION RATE >=60 max estimate CREATININE 0.90 CALCIUM 8.4 L MAG (06/14/23 15:00) MAGNESIUM 1.9 PHOS (06/14/23 15:00) PHOSPHOROUS 2.8 D CBC W/AUTO DIFF (06/14/23 15:00) WHITE BLOOD CELL 10.0 RED BLOOD CELL 3.16 L HEMOGLOBIN 10.5L L HEMATOCRIT 31.2L L MEAN CELL VOLUME 98.7 H MEAN CELL HGB 33.2 H MEAN CELL HGB CONCENTRATION 33.7 RED CELL DISTRIBUTION WIDTH 13.4 PLATELET COUNT 143L L MEAN PLATELET VOLUME 10.0 NEUTROPHIL % 73.9 LYMPHOCYTE % 14.8 L MONOCYTE % 9.9 H EOSINOPHIL % 0.6 BASOPHIL % 0.5 NEUTROPHIL # 7.36 LYMPHOCYTE # 1.48 MONOCYTE # 0.99 H EOSINOPHIL # 0.06 BASOPHIL # 0.05 -- ATTESTATION -- TIME SPENT ON PATIENT CARE: - Critical Care: time spent apart from any procedure 40 minutes CARE ACTIVITIES / CARE COORDINATION: - I have reviewed the history and repeated the carias elements - I have seen and examined this patient - I have reviewed the progress in the clinical course since the last examination - I have discussed the patient's condition with other members of the care team Signed in PatientKeeper by Mandi Delarosa MD on 06/15/23 at 14:57 at 1457 ATTENTION *EDITS and/or ADDENDA must be made in Patient Keeper for this note. * * Edits and ammendments created in [employer] are not visible * * in Patient Keeper or the legal medical record ([facility]). * RPT #: [id number] END OF REPORT [facility] 2023-06-15 12:49:00 [facility] ([facility]) Cardiology Progress Notes REPORT #: [id number] REPORT STATUS: Signed DATE: 06/15/23 TIME: 1249 PATIENT: KOTA MONTES UNIT #: [id number] ROOM #: [id number] BED: A : 62 AGE: 62 SEX: M ATTEND: Keenan Kumari MD ADM AUTHOR: Claire Artis MD [facility] ATTENTION *EDITS and/or ADDENDA must be made in Patient Keeper for this note. * * Edits and ammendments created in [employer] are not visible * * in Patient Keeper or the legal medical record ([facility]). * -- CO-SIGNATURE -- COMMENTS: I have seen and examined the patient with business education teacher Dr. Claire Artis MD * my personal evaluation is s/p [id number] on 06/13/2023 patient is hemodynamically stable continue DAPT with aspirin and Plavix Continue metoprolol, Lipitor Maintain MAP 70-90 Strict I Os and daily standing weight Maintain K 4 and Mg 2 Trend CBC, BMP I have reviewed all the clinical information, lab investigations, and imaging data. I agree with the examination, findings, assessment and plan. I have discussed the patient's condition with other consultants and members of the care team I was present and supervised. Life threatening disease due to CAD-status post CABG during this admission Organ systems impaired or failing: Cardiac Signed in PatientKeeper by GUILLAUME SUMNER MD on 06/18/23 at 13:33 -- ASSESSMENT AND PLAN -- GENERAL ASSESSMENT: Mr. Montes is a 62-year-old gentleman (patient of Dr. Giordano) has a PMHx of coronary artery disease (s/p PCI 2005, 06/2022, 12/24/2022), h/o NM (2005), family history of coronary artery disease, h/o alcohol abuse, nicotine use, hypertension, hyperlipidemia. He underwent percutaneous coronary intervention with rotablation and placement of 2 stents in the LCx on 12/24/[address] Lynch and Dr. Malachi Fitzgerald (see op-note). He was discharged on stable condition on 12/25/22. He presented at an outside emergency room on 04/05/2023 with complaint of chest pain and shortness of breath, and he left against medical advise prior any intervention. He presented today (05/28/23) at [facility] with complaints of shortness of breath and left sided localized sharp chest pain that started earlier today. He reports the symptoms are similar when he had the previous percutaneous coronary interventions. He reports being complaint taking his medications, including DAPT. Workup showed negative troponin, BNP 78, Na 128. EKG shows normal sinus rhythm and left bundle branch block. Chest x-ray showed unremarkable frontal chest radiograph. He was admitted for further evaluation and management. S/p CABG x2v 06/12. Plan: PT/OT/IS. PROBLEMS: 1: Coronary artery disease/chest pain A/P: - s/p [id number] 06/12 - Chest tubes coming out today as per CV Surgery. - cont ASA/Statin -Metoprolol tartrate at 12.5 mg BID, -Patient is on Plavix already. - PT/OT/IS - monitor on tele -- SUBJECTIVE -- CHIEF COMPLAINT: Leaning back in chair , no distress PATIENT NARRATIVE: Patient sitting up in chair, in no distress -REVIEW OF SYSTEMS- COMMENT: 10 point ROS negative unless noted. -- OBJECTIVE -- VITALS (06/13 12:49 - 06/14 12:49): Temperature F: 98.0 (98.0 - 98.4) Temperature source: Oral Pulse Rate 81 (80 - 114) Respiratory rate: 32 (6 - 52) Blood pressure: 91/53 (82/50 - 132/118) Blood pressure source: Monitor I/Os (06/13 07:00 - 06/14 07:00): Net 470.00 Intake 2,490.00 Output 2,020 -EXAM- GENERAL: Well developed, well nourished, in no apparent distress. HEAD: Normocephalic, atraumatic. EARS: grossly normal hearing. NOSE: No deformity, no discharge MOUTH: Oropharynx without deformities or lesions, normal mucosa. CHEST: sternotomy site c/d/i, chest tubes and TPW noted LUNGS: Clear bilaterally with normal respiratory effort. HEART: Regular rate and rhythm, normal S1, S2, no murmurs EXTREMITIES: No clubbing, no cyanosis, no edema. NEUROLOGICAL: No focal deficits, cranial nerves II-XII grossly intact PSYCHIATRIC: Alert and oriented to time, person, place. -- DATA -- MEDICATIONS DOCUSATE SODIUM 200 MG PO DAILY FUROSEMIDE 40 MG IV BID ACETAMINOPHEN 650 MG PO Q4H PRN DEXTROSE 50%-WATER 25 ML IV ASDIR PRN METOPROLOL TARTRATE 12.5 MG PO BID FOLIC ACID 1 MG PO DAILY GLUCAGON 1 MG IM ASDIR PRN CYANOCOBALAMIN 500 MCG PO DAILY POTASSIUM CHLORIDE 20 MEQ IV ASDIR (PRN) MAGNESIUM 1 GM IV ASDIR PRN NOREPINEPHRINE BITARTRATE 4 MG IV TITRATE methocarbamoL 1000 MG PO TID polyethylene glycoL 3350 1 PKT PO DAILY MAGNESIUM HYDROXIDE 30 ML PO ASDIR PRN HYDROcodone BITARTRATE/APAP 1 TAB PO Q4H PRN SODIUM PHOSPHATE with/in SODIUM CHLORIDE 0.9% 20 MM IV ASDIR (PRN) CALCIUM GLUC IN NACL, ISO-OSM 2 GM IV ASDIR PRN SODIUM PHOSPHATE with/in SODIUM CHLORIDE 0.9% 30 MM IV ASDIR (PRN) niCARdipine HCL with/in SODIUM CHLORIDE 100 mL BAG 25 MG IV TITRATE METOPROLOL TARTRATE 5 MG IV Q6H PRN FERROUS SULFATE 325 MG PO DAILY ALPRAZolam 0.5 MG PO TID PRN SODIUM CHLORIDE 10 mL 10 ML IV ASDIR MUPIROCIN 1 APPLIC NASAL BID PREGABALIN 50 MG PO BID HYDROmorphone HCL 0.5 MG IV Q2H PRN LACTULOSE 30 ML PO ASDIR PRN NITROGLYCERIN 0.4 MG SL Q5M PRN EPINEPHrine with/in DEXTROSE 5%-WATER 16 MG IV TITRATE SODIUM CHLORIDE 0.9% 1000 ML IV .Q24H cloNIDine HCL 0.1 MG PO Q8H PRN ATORVASTATIN CALCIUM 80 MG PO BEDTIME ONDANSETRON 4 MG PO Q6H PRN hydrALAZINE HCL 5 MG IV Q6HR PRN ENOXAPARIN SODIUM 40 MG SUBQ DAILY ASPIRIN 81 MG PO DAILY THIAMINE HCL 100 MG PO DAILY traZODone HCL 100 MG PO BEDTIME clopidogreL 75 MG PO DAILY LIDOCAINE 2 PATCH TRANSDERM DAILY LACTULOSE 30 ML PO ASDIR PRN bisacodyL 10 MG RECTAL ASDIR PRN ONDANSETRON HCL/PF 4 MG IV Q6H PRN ESCITALOPRAM 20 MG PO DAILY LABS BLOOD GAS W/ELECTROLYTES (06/15/23 02:48) ARTERIAL BLOOD GAS PH 7.40 ARTERIAL BLOOD GAS PCO2 47.7 H ARTERIAL BLOOD GAS PO2 67.2 L BICARBONATE TOTAL HCO3 28.6 H BASE EXCESS 2.9 H ARTERIAL FIO2 44.0 ABG VENT MODE NASAL CANNULA ALLENS TEST NOT APPLICABLE SODIUM (POC) 125 L POTASSIUM (POC) 4.17 CHLORIDE (ARTERIAL) 93 L GLUCOSE 105 H IONIZED CALCIUM 1.11 L POC LACTIC ACID 2.19 TCO2 ARTERIAL 30.1 H CBC W/AUTO DIFF (06/15/23 02:43) WHITE BLOOD CELL 12.5H H RED BLOOD CELL 3.06 L HEMOGLOBIN 10.1L L HEMATOCRIT 30.3L L MEAN CELL VOLUME 99.0 H MEAN CELL HGB 33.0 H MEAN CELL HGB CONCENTRATION 33.3 RED CELL DISTRIBUTION WIDTH 13.5 PLATELET COUNT 139L L MEAN PLATELET VOLUME 9.7 NEUTROPHIL % 77.6 H LYMPHOCYTE % 11.0 L MONOCYTE % 10.4 H EOSINOPHIL % 0.2 BASOPHIL % 0.5 NEUTROPHIL # 9.69 H LYMPHOCYTE # 1.38 MONOCYTE # 1.30 H EOSINOPHIL # 0.03 BASOPHIL # 0.06 MAG (06/15/23 02:43) MAGNESIUM 1.8 PHOS (06/15/23 02:43) PHOSPHOROUS 2.5 COMPREHENSIVE METABOLIC PANEL (06/15/23 02:43) SODIUM 132 L POTASSIUM 4.3 CHLORIDE 100 CARBON DIOXIDE 27 GLUCOSE 108 H BLOOD UREA NITROGEN 10 GLOMERULAR FILTRATION RATE >=60 max estimate CREATININE 0.90 TOTAL PROTEIN 5.8 ALBUMIN 3.7 CALCIUM 8.7 BILIRUBIN TOTAL 0.6 SGOT/AST 270 H SGPT/ALT 43 ALKALINE PHOSPHATASE 49.0 BASIC METABOLIC PANEL (06/14/23 15:00) SODIUM 132L L POTASSIUM 3.9 CHLORIDE 99 CARBON DIOXIDE 28 GLUCOSE 106 BLOOD UREA NITROGEN 10 GLOMERULAR FILTRATION RATE >=60 max estimate CREATININE 0.90 CALCIUM 8.4 L MAG (06/14/23 15:00) MAGNESIUM 1.9 PHOS (06/14/23 15:00) PHOSPHOROUS 2.8 D CBC W/AUTO DIFF (06/14/23 15:00) WHITE BLOOD CELL 10.0 RED BLOOD CELL 3.16 L HEMOGLOBIN 10.5L L HEMATOCRIT 31.2L L MEAN CELL VOLUME 98.7 H MEAN CELL HGB 33.2 H MEAN CELL HGB CONCENTRATION 33.7 RED CELL DISTRIBUTION WIDTH 13.4 PLATELET COUNT 143L L MEAN PLATELET VOLUME 10.0 NEUTROPHIL % 73.9 LYMPHOCYTE % 14.8 L MONOCYTE % 9.9 H EOSINOPHIL % 0.6 BASOPHIL % 0.5 NEUTROPHIL # 7.36 LYMPHOCYTE # 1.48 MONOCYTE # 0.99 H EOSINOPHIL # 0.06 BASOPHIL # 0.05 Signed in PatientKeeper by Claire Artis MD [facility] on 06/15/23 at 12:52 Cosigned by GUILLAUME SUMNER MD on 06/18/23 at 13:33 at 1333 at 1333 ATTENTION *EDITS and/or ADDENDA must be made in Patient Keeper for this note. * * Edits and ammendments created in [facility] are not visible * * in Patient Keeper or the legal medical record ([facility]). * [facility] #: [id number] END OF REPORT [facility] 2023-06-14 07:45:00 [facility] ([facility]) Cardiology Progress Notes REPORT #: [id number] REPORT STATUS: Signed DATE: 06/14/23 TIME: 744 PATIENT: KOTA MONTES UNIT #: [id number] ROOM #: P.[id number] BED: 1 : 61 AGE: 62 SEX: M ATTEND: Sherrie Stein MD ADM AUTHOR: Hanh Mcgraw DO [facility] ATTENTION *EDITS and/or ADDENDA must be made in Patient Keeper for this note. * * Edits and ammendments created in [facility] are not visible * * in Patient Keeper or the legal medical record ([facility]). * -- CO-SIGNATURE -- COMMENTS: I have seen and examined the patient with the business department chair fellow Dr. Hanh Mcgraw MD on 06/14/23. I have reviewed all the clinical information, lab investigations, and imaging data. I agree with the following examination, findings, assessment and plan. I was present and supervised. Signed in PatientKeeper by KURTIS LYNCH MD on 06/17/23 at 00:42 -- ASSESSMENT AND PLAN -- HOSPITAL COURSE TO DATE: 05/28: upgraded overnight for unstable angina on nitro drip, plan for PCI Monday 05/29: stable 05/30: plan for PCI 06/12: s/p 2V CAB (BOGGS to LAD, SVG to OM1); extubated 06/13: stable GENERAL ASSESSMENT: Mr. Montes is a 62-year-old gentleman (patient of Dr. Giordano) has a PMHx of coronary artery disease (s/p PCI 2005, 06/2022, 12/24/2022), h/o NM (2005), family history of coronary artery disease, h/o alcohol abuse, nicotine use, hypertension, hyperlipidemia. He underwent percutaneous coronary intervention with rotablation and placement of 2 stents in the LCx on 12/24/[address] Lynch and Dr[address] Malachi Fitzgerald (see op-note). He was discharged on stable condition on 12/25/22. He presented at an outside emergency room on 04/05/2023 with complaint of chest pain and shortness of breath, and he left against medical advise prior any intervention. He presented today (05/28/23) at [facility] with complaints of shortness of breath and left sided localized sharp chest pain that started earlier today. He reports the symptoms are similar when he had the previous percutaneous coronary interventions. He reports being complaint taking his medications, including DAPT. Workup showed negative troponin, BNP 78, Na 128. EKG shows normal sinus rhythm and left bundle branch block. Chest x-ray showed unremarkable frontal chest radiograph. He was admitted for further evaluation and management. S/p CABG x2v 06/12. Plan: PT/OT/IS. PROBLEMS: 1: Coronary artery disease/chest pain A/P: - s/p [id number] 06/12 - AHA C, NYHA 3 - cont ASA/Statin - CT surgery managing - resume BB and brilinta when cleared by surgery - PT/OT/IS - monitor on tele -- SUBJECTIVE -- CHIEF COMPLAINT: DRISS this AM. S/p CABG. No new complaints. Tele: Sinus tachy 104 -REVIEW OF SYSTEMS- COMMENT: 10 point ROS negative unless noted. -- OBJECTIVE -- VITALS (06/12 07:45 - 06/13 07:45): Temperature F: 98.0 (97.5 - 98.6) Temperature C: 36.7 Temperature source: Oral Pulse Rate 107 (66 - 113) Respiratory rate: 30 (7 - 40) Blood pressure: 103/54 (83/47 - 138/83) Blood pressure source: Arterial I/Os (06/12 07:00 - 06/13 07:00): Net -114.90 Intake 2,325.10 Output 2,440 -EXAM- GENERAL: Well developed, well nourished, in no apparent distress. HEAD: Normocephalic, atraumatic. EARS: grossly normal hearing. NOSE: No deformity, no discharge MOUTH: Oropharynx without deformities or lesions, normal mucosa. CHEST: sternotomy site c/d/i, chest tubes and TPW noted LUNGS: Clear bilaterally with normal respiratory effort. HEART: Regular rate and rhythm, normal S1, S2, no murmurs EXTREMITIES: No clubbing, no cyanosis, no edema. NEUROLOGICAL: No focal deficits, cranial nerves II-XII grossly intact PSYCHIATRIC: Alert and oriented to time, person, place. -- DATA -- MEDICATIONS ACETAMINOPHEN 650 MG PO Q6HR DOCUSATE SODIUM 200 MG PO DAILY ACETAMINOPHEN 650 MG PO Q4H PRN DEXTROSE 50%-WATER 25 ML IV ASDIR PRN dexmedeTOMIDine in 0.9 % NaCL 400 MCG IV TITRATE FOLIC ACID 1 MG PO DAILY methocarbamoL 750 MG PO TID GLUCAGON 1 MG IM ASDIR PRN CYANOCOBALAMIN 500 MCG PO DAILY POTASSIUM CHLORIDE 20 MEQ IV ASDIR (PRN) MAGNESIUM 1 GM IV ASDIR PRN NOREPINEPHRINE BITARTRATE 4 MG IV TITRATE HYDROmorphone HCL 0.5 MG IV Q3H PRN polyethylene glycoL 3350 1 PKT PO DAILY MAGNESIUM HYDROXIDE 30 ML PO ASDIR PRN HYDROcodone BITARTRATE/APAP 1 TAB PO Q4H PRN SODIUM PHOSPHATE with/in SODIUM CHLORIDE 0.9% 20 MM IV ASDIR (PRN) CALCIUM GLUC IN NACL, ISO-OSM 2 GM IV ASDIR PRN SODIUM PHOSPHATE with/in SODIUM CHLORIDE 0.9% 30 MM IV ASDIR (PRN) niCARdipine HCL with/in SODIUM CHLORIDE 100 mL BAG 25 MG IV TITRATE METOPROLOL TARTRATE 5 MG IV Q6H PRN FERROUS SULFATE 325 MG PO DAILY INSULIN REG HUMAN REC with/in SODIUM CHLORIDE 100 mL BAG 100 UNIT IV ASDIR ALPRAZolam 0.5 MG PO TID PRN SODIUM CHLORIDE 10 mL 10 ML IV ASDIR MUPIROCIN 1 APPLIC NASAL BID PREGABALIN 50 MG PO BID LACTULOSE 30 ML PO ASDIR PRN NITROGLYCERIN 0.4 MG SL Q5M PRN traMADol HCL 50 MG PO Q6HR LIDOCAINE 1 PATCH TRANSDERM DAILY EPINEPHrine with/in DEXTROSE 5%-WATER 16 MG IV TITRATE SODIUM CHLORIDE 0.9% 1000 ML IV .Q24H MAG HYDROX/AL HYDROX/SIMETH 30 ML PO Q4H PRN cloNIDine HCL 0.1 MG PO Q8H PRN ATORVASTATIN CALCIUM 80 MG PO BEDTIME (Held) METOPROLOL TARTRATE 50 MG PO BID ONDANSETRON 4 MG PO Q6H PRN SENNOSIDES 2 TAB PO ASDIR PRN hydrALAZINE HCL 5 MG IV Q6HR PRN (DC'd) MULTIVITAMIN WITH FOLIC ACID 400 MCG PO DAILY ASPIRIN 81 MG PO DAILY THIAMINE HCL 100 MG PO DAILY traZODone HCL 100 MG PO BEDTIME LACTULOSE 30 ML PO ASDIR PRN bisacodyL 10 MG RECTAL ASDIR PRN ONDANSETRON HCL/PF 4 MG IV Q6H PRN ESCITALOPRAM 20 MG PO DAILY LABS BLOOD GAS W/ELECTROLYTES (06/14/23 04:35) ARTERIAL BLOOD GAS PH 7.36 ARTERIAL BLOOD GAS PCO2 48.5 H ARTERIAL BLOOD GAS PO2 78.6 L BICARBONATE TOTAL HCO3 27.0 H BASE EXCESS 1.1 ABG O2 SATURATION 95.2 ARTERIAL FIO2 28.0 ABG VENT MODE NASAL CANNULA ALLENS TEST NOT APPLICABLE SODIUM (POC) 132 L POTASSIUM (POC) 4.10 CHLORIDE (ARTERIAL) 99 GLUCOSE 106 H IONIZED CALCIUM 1.11 L POC LACTIC ACID 1.26 TOTAL HGB 11.7 L OXYHEMOGLOBIN 94.5 CARBOXYHEMOGLOBIN 0.4 METHEMOGLOBIN <0.8 HHb 4.8 TCO2 ARTERIAL 28.5 LIVER FUNCTION PANEL (06/14/23 03:08) TOTAL PROTEIN 5.1 L ALBUMIN 3.7 BILIRUBIN TOTAL 0.4 BILIRUBIN DIRECT 0.2 SGOT/AST 174 H SGPT/ALT 34 ALKALINE PHOSPHATASE 51.0 PHOS (06/14/23 03:08) PHOSPHOROUS 4.6 D MAG (06/14/23 03:08) MAGNESIUM 2.0 BASIC METABOLIC PANEL (06/14/23 03:08) SODIUM 137 POTASSIUM 4.3 CHLORIDE 106 CARBON DIOXIDE 28 GLUCOSE 112H H BLOOD UREA NITROGEN 9 GLOMERULAR FILTRATION RATE >=60 max estimate CREATININE 0.80 CALCIUM 8.5 L CBC W/AUTO DIFF (06/14/23 03:08) WHITE BLOOD CELL 9.5 RED BLOOD CELL 3.25 L HEMOGLOBIN 10.9D L D L HEMATOCRIT 31.7L L MEAN CELL VOLUME 97.5 H MEAN CELL HGB 33.5 H MEAN CELL HGB CONCENTRATION 34.4 RED CELL DISTRIBUTION WIDTH 13.6 PLATELET COUNT 165 MEAN PLATELET VOLUME 9.8 NEUTROPHIL % 78.1 H LYMPHOCYTE % 11.4 L MONOCYTE % 9.5 H EOSINOPHIL % 0.1 BASOPHIL % 0.5 NEUTROPHIL # 7.37 LYMPHOCYTE # 1.08 MONOCYTE # 0.90 H EOSINOPHIL # 0.01 BASOPHIL # 0.05 BLOOD GAS W/ELECTROLYTES (06/13/23 21:32) ARTERIAL BLOOD GAS PH 7.37 ARTERIAL BLOOD GAS PCO2 45.6 H ARTERIAL BLOOD GAS PO2 91.2 BICARBONATE TOTAL HCO3 25.9 H BASE EXCESS 0.4 ABG O2 SATURATION 96.7 ARTERIAL FIO2 32.0 ABG VENT MODE NASAL CANNULA ALLENS TEST NOT APPLICABLE SODIUM (POC) 138 POTASSIUM (POC) 4.22 CHLORIDE (ARTERIAL) 101 GLUCOSE 125 H IONIZED CALCIUM 1.09 L POC LACTIC ACID 0.99 TOTAL HGB 12.0 D L CARBOXYHEMOGLOBIN 0.4 METHEMOGLOBIN <0.8 HHb 3.3 TCO2 ARTERIAL 27.3 BLOOD GAS W/ELECTROLYTES (06/13/23 19:51) ARTERIAL BLOOD GAS PH 7.24 L ARTERIAL BLOOD GAS PCO2 48.4 H ARTERIAL BLOOD GAS PO2 152.1 H BICARBONATE TOTAL HCO3 20.2 L BASE EXCESS -7.2 L ABG O2 SATURATION 98.6 ARTERIAL FIO2 40.0 ABG VENT MODE NASAL CANNULA ALLENS TEST NOT APPLICABLE SODIUM (POC) 139 POTASSIUM (POC) 4.60 CHLORIDE (ARTERIAL) 101 GLUCOSE 128 H IONIZED CALCIUM 1.21 POC LACTIC ACID 1.48 TOTAL HGB 13.3 OXYHEMOGLOBIN 98.1 H CARBOXYHEMOGLOBIN 0.3 METHEMOGLOBIN <0.8 HHb 1.4 TCO2 ARTERIAL 21.7 L PHOS (06/13/23 19:43) PHOSPHOROUS 6.1 D H MAG (06/13/23 19:43) MAGNESIUM 2.5 CBC W/AUTO DIFF (06/13/23 19:43) WHITE BLOOD CELL 13.7H H RED BLOOD CELL 3.75 L HEMOGLOBIN 12.4L L HEMATOCRIT 37.2L L MEAN CELL VOLUME 99.2 H MEAN CELL HGB 33.1 H MEAN CELL HGB CONCENTRATION 33.3 RED CELL DISTRIBUTION WIDTH 13.5 PLATELET COUNT 229 MEAN PLATELET VOLUME 9.9 NEUTROPHIL % 86.1 H LYMPHOCYTE % 5.1 L MONOCYTE % 7.9 EOSINOPHIL % 0.0 BASOPHIL % 0.2 NEUTROPHIL # 11.77 H LYMPHOCYTE # 0.69 L MONOCYTE # 1.08 H EOSINOPHIL # 0.00 BASOPHIL # 0.03 BASIC METABOLIC PANEL (06/13/23 19:43) SODIUM 140 POTASSIUM 4.8D D CHLORIDE 110H H CARBON DIOXIDE 24 GLUCOSE 144H H BLOOD UREA NITROGEN 10 GLOMERULAR FILTRATION RATE >=60 max estimate CREATININE 0.90 CALCIUM 7.7 L LACTIC ACID (06/13/23 13:10) LACTIC ACID 1.20 BASIC METABOLIC PANEL (06/13/23 12:47) SODIUM 137 POTASSIUM 3.8 CHLORIDE 110H H CARBON DIOXIDE 22 GLUCOSE 166H H BLOOD UREA NITROGEN 9 GLOMERULAR FILTRATION RATE >=60 max estimate CREATININE 0.70 CALCIUM 7.7 L CBC W/AUTO DIFF (06/13/23 12:47) WHITE BLOOD CELL 16.1H H RED BLOOD CELL 3.80 L HEMOGLOBIN 12.6L L HEMATOCRIT 37.0L L MEAN CELL VOLUME 97.4 H MEAN CELL HGB 33.2 H MEAN CELL HGB CONCENTRATION 34.1 RED CELL DISTRIBUTION WIDTH 13.2 PLATELET COUNT 202 MEAN PLATELET VOLUME 9.7 NEUTROPHIL % 87.2 H LYMPHOCYTE % 8.0 L MONOCYTE % 3.7 EOSINOPHIL % 0.2 BASOPHIL % 0.2 NEUTROPHIL # 14.02 H LYMPHOCYTE # 1.28 MONOCYTE # 0.59 EOSINOPHIL # 0.04 BASOPHIL # 0.04 MAG (06/13/23 12:47) MAGNESIUM 2.8 H PHOS (06/13/23 12:47) PHOSPHOROUS 2.0 L PROTHROMBIN TIME (06/13/23 12:46) PROTHROMBIN TIME PATIENT 12.9 INTERNATIONAL NORMAL RATIO 1.16 H PTT (06/13/23 12:46) THROMBOPLASTIN TIME PARTIAL 28.6 ACT (06/13/23 11:41) COAGULATION TIME ACTIVATED 136 ACT (06/13/23 11:17) COAGULATION TIME ACTIVATED 455 H ACT (06/13/23 10:51) COAGULATION TIME ACTIVATED 509 H ACT (06/13/23 10:08) COAGULATION TIME ACTIVATED 634 H Signed in PatientKeeper by Hanh Mcgraw DO CF1 on 06/14/23 at 07:51 Cosigned by KURTIS LYNCH MD on 06/17/23 at 00:42 at 0042 at 0042 ATTENTION *EDITS and/or ADDENDA must be made in Patient Keeper for this note. * * Edits and ammendments created in [employer] are not visible * * in Patient Keeper or the legal medical record (HPF). * [facility] #: [id number] END OF REPORT [facility] 2023-06-14 06:39:00 [facility] ([facility]) Intensive Care Progress Note REPORT #: [id number] REPORT STATUS: Signed DATE: 06/14/23 TIME: 0639 PATIENT: KOTA MONTES UNIT #: [id number] ROOM #: P.0303 BED: 1 : 61 AGE: 62 SEX: M ATTEND: Sherrie Stein MD ADM AUTHOR: Sherrie Stein MD ATTENTION *EDITS and/or ADDENDA must be made in Patient Keeper for this note. * * Edits and ammendments created in [employer] are not visible * * in Patient Keeper or the legal medical record (HPF). * -- ASSESSMENT AND PLAN -- HOSPITAL COURSE TO DATE: Patient is a 62-year-old male with PMH notalbe for CAD s/p PCI ('06, 06/24, 12/24), HTN, HLD, h/o ETOH abuse, tobacco abuse, anxiety/depression, and medical non-compliance initially presenting on 05/27 with a chief complaint of chest pain. Patient admitted to [facility] for further evaluation and is admitted to the CVICU postoperatively following two-vessel coronary bypass. 06/12: s/p 2V CAB (BOGGS to LAD, SVG to OM1); extubated GENERAL ASSESSMENT: Plan: Pain/Sedation #Acute Postoperative Pain -Known history of narcotic-seeking behavior -Ok for narcotics immediately postop, continue multi-modal pain regimen: standing Lyrica, Robaxin, tramadol, and lidocaine patch, with APAP/Corinne 5mg/10mg PRN mild/moderate/severe pain, and Dilaudid 0.5mg IV Q2H PRN breakthrough pain -If pain not well controlled, will consider BEFORE SCHOOL BABYSITTER pump Neuro/Psych #Anxiety/Depression #H/o ETOH Abuse -Exam non-focal -Continue home trazodone/Lexapro -Xanax PRN agitation/anxiety -Out of ETOH withdrawal window, continue daily thiamine/folic acid -Neurochecks per protocol, delirium precautions, frequent reorientation/redirection, optimize sleep/wake cycle Respiratory #Acute Respiratory Insufficiency -Extubated to NC postoperatively, saturating well on NC -Continue supplemental O2, maintain goal SpO2 >92% -Monitor chest tube output -Encourage IS, pulmonary hygiene, serial CXRs/ABGs -Start Lasix 40mg IV QD Cardiovascular #CAD s/p PCI and 2V CAB #HTN -Continue postoperative management following bypass -Intra-op MY with improvement in EF (45% -> 55%) -Currently hemodynamically stable, not requiring vasoactive agents -MAP goal >65 -V-pacer wires in place, currently NSR, not requiring pacing -Continue aspirin/statin, resume Plavix and Lopressor 12.5mg BID, up-titrate as tolerated -Cardiothoracic surgery following, recommendations appreciated -Cardiology following, patient with known RCA lesion not amenable to surgical intervention, will require follow up PCI at later time Gastrointestinal -Advanced to regular diet -Postop bowel regimen Renal -Renal function WNL postoperatively -Maintain Singh for strict I/O -ICU electrolyte protocol ordered, maintain K >4.0, Phos >3.0, Mg >2.0 Infectious Disease #Postoperative Leukocytosis (resolved) -Likely reactive following surgery, no suspicion for sepsis or infection -Completed perioperative abx -Monitor fever curve, no indication for empiric abx Endocrine -No prior h/o DM, tight glycemic control postoperatively -Maintain goal BS 140-180 -Hypoglycemia protocol HEME #Acute Blood Loss Anemia -Hemoglobin decreased postoperatively, now stable and without evidence of bleeding -EBL 750cc, transfused 1 platelet/KCentra intra-op, did not require PRBCs -Hold pharmacologic DVT ppx -Transfuse for goal Hgb >8.0, platelets >10k or 20k with bleeding, and fibrinogen >150 MSK -PT/OT following PPX -DVT: SCDs -GI: None GOC -Code: FULL per patient preoperatively and -Advance Care Planning: None per family Dispo: Continue ICU level care Medications reviewed with ICU pharmacist Patient is critically ill and at risk of imminent life threatening injury or -- SUBJECTIVE -- PATIENT NARRATIVE: NAEON. Received albumin and HCO3. Otherwise hemodynamically stable. Today endorses ongoing surgical site/chest pain, requesting increasing doses of Dilaudid. -REVIEW OF SYSTEMS- GENERAL: Negative for fever, malaise, fatigue. EYES: Negative for blurry vision. No diplopia. EARS/NOSE/THROAT: Negative for sore throat. No otalgia. No rhinorrhea. BREAST: Negative for change in shape, swelling, masses, nipple discharge, pain, skin changes. RESPIRATORY: Negative for dyspnea or wheeze. No cough. CARDIOVASCULAR: Chest pain at sternotomy incision. Negative for palpitations. No extremity swelling. GASTROINTESTINAL: Negative for abdominal pain or nausea. No emesis. No diarrhea. GENITOURINARY: Negative for dysuria, frequency, or urgency. No gross hematuria. MUSCULOSKELETAL: Negative for joint stiffness, pain, or arthralgias. SKIN: Negative for rashes. No pruritus. NEUROLOGICAL: Negative for headache. No vertigo. Denies paresthesias. PSYCHIATRIC: Negative for specific complaints. ENDOCRINE: Negative for cold intolerance, heat intolerance, polyphagia, polydipsia, polyuria, weight change, fatigue. HEMATALOGIC / LYMPHORETICULAR: Negative for excessive bleeding, unusual masses. ALLERGIC / IMMUNOLOGIC: Negative for heat/cold intolerance, polydipsia, or polyuria. -- OBJECTIVE -- VITALS (06/12 06:39 - 06/13 06:39): Temperature F: 98.0 (97.5 - 98.6) Temperature C: 36.7 Temperature source: Oral Pulse Rate 101 (66 - 113) Respiratory rate: 15 (7 - 36) Blood pressure: 121/58 (83/47 - 138/83) Blood pressure source: Arterial I/Os (06/11 07:00 - 06/12 07:00): Net 400 Intake 400 -- DATA -- MEDICATIONS ACETAMINOPHEN 650 MG PO Q6HR DOCUSATE SODIUM 200 MG PO DAILY ACETAMINOPHEN 650 MG PO Q4H PRN DEXTROSE 50%-WATER 25 ML IV ASDIR PRN dexmedeTOMIDine in 0.9 % NaCL 400 MCG IV TITRATE FOLIC ACID 1 MG PO DAILY methocarbamoL 750 MG PO TID GLUCAGON 1 MG IM ASDIR PRN CYANOCOBALAMIN 500 MCG PO DAILY POTASSIUM CHLORIDE 20 MEQ IV ASDIR (PRN) MAGNESIUM 1 GM IV ASDIR PRN NOREPINEPHRINE BITARTRATE 4 MG IV TITRATE HYDROmorphone HCL 0.5 MG IV Q3H PRN polyethylene glycoL 3350 1 PKT PO DAILY MAGNESIUM HYDROXIDE 30 ML PO ASDIR PRN HYDROcodone BITARTRATE/APAP 1 TAB PO Q4H PRN SODIUM PHOSPHATE with/in SODIUM CHLORIDE 0.9% 20 MM IV ASDIR (PRN) CALCIUM GLUC IN NACL, ISO-OSM 2 GM IV ASDIR PRN SODIUM PHOSPHATE with/in SODIUM CHLORIDE 0.9% 30 MM IV ASDIR (PRN) niCARdipine HCL with/in SODIUM CHLORIDE 100 mL BAG 25 MG IV TITRATE METOPROLOL TARTRATE 5 MG IV Q6H PRN FERROUS SULFATE 325 MG PO DAILY INSULIN REG HUMAN REC with/in SODIUM CHLORIDE 100 mL BAG 100 UNIT IV ASDIR ALPRAZolam 0.5 MG PO TID PRN SODIUM CHLORIDE 10 mL 10 ML IV ASDIR MUPIROCIN 1 APPLIC NASAL BID PREGABALIN 50 MG PO BID LACTULOSE 30 ML PO ASDIR PRN NITROGLYCERIN 0.4 MG SL Q5M PRN traMADol HCL 50 MG PO Q6HR LIDOCAINE 1 PATCH TRANSDERM DAILY EPINEPHrine with/in DEXTROSE 5%-WATER 16 MG IV TITRATE SODIUM CHLORIDE 0.9% 1000 ML IV .Q24H MAG HYDROX/AL HYDROX/SIMETH 30 ML PO Q4H PRN cloNIDine HCL 0.1 MG PO Q8H PRN ATORVASTATIN CALCIUM 80 MG PO BEDTIME (Held) METOPROLOL TARTRATE 50 MG PO BID ONDANSETRON 4 MG PO Q6H PRN SENNOSIDES 2 TAB PO ASDIR PRN hydrALAZINE HCL 5 MG IV Q6HR PRN (DC'd) MULTIVITAMIN WITH FOLIC ACID 400 MCG PO DAILY ASPIRIN 81 MG PO DAILY THIAMINE HCL 100 MG PO DAILY traZODone HCL 100 MG PO BEDTIME LACTULOSE 30 ML PO ASDIR PRN bisacodyL 10 MG RECTAL ASDIR PRN ONDANSETRON HCL/PF 4 MG IV Q6H PRN ESCITALOPRAM 20 MG PO DAILY LABS BLOOD GAS W/ELECTROLYTES (06/14/23 04:35) ARTERIAL BLOOD GAS PH 7.36 ARTERIAL BLOOD GAS PCO2 48.5 H ARTERIAL BLOOD GAS PO2 78.6 L BICARBONATE TOTAL HCO3 27.0 H BASE EXCESS 1.1 ABG O2 SATURATION 95.2 ARTERIAL FIO2 28.0 ABG VENT MODE NASAL CANNULA ALLENS TEST NOT APPLICABLE SODIUM (POC) 132 L POTASSIUM (POC) 4.10 CHLORIDE (ARTERIAL) 99 GLUCOSE 106 H IONIZED CALCIUM 1.11 L POC LACTIC ACID 1.26 TOTAL HGB 11.7 L OXYHEMOGLOBIN 94.5 CARBOXYHEMOGLOBIN 0.4 METHEMOGLOBIN <0.8 HHb 4.8 TCO2 ARTERIAL 28.5 LIVER FUNCTION PANEL (06/14/23 03:08) TOTAL PROTEIN 5.1 L ALBUMIN 3.7 BILIRUBIN TOTAL 0.4 BILIRUBIN DIRECT 0.2 SGOT/AST 174 H SGPT/ALT 34 ALKALINE PHOSPHATASE 51.0 PHOS (06/14/23 03:08) PHOSPHOROUS 4.6 D MAG (06/14/23 03:08) MAGNESIUM 2.0 BASIC METABOLIC PANEL (06/14/23 03:08) SODIUM 137 POTASSIUM 4.3 CHLORIDE 106 CARBON DIOXIDE 28 GLUCOSE 112H H BLOOD UREA NITROGEN 9 GLOMERULAR FILTRATION RATE >=60 max estimate CREATININE 0.80 CALCIUM 8.5 L CBC W/AUTO DIFF (06/14/23 03:08) WHITE BLOOD CELL 9.5 RED BLOOD CELL 3.25 L HEMOGLOBIN 10.9D L D L HEMATOCRIT 31.7L L MEAN CELL VOLUME 97.5 H MEAN CELL HGB 33.5 H MEAN CELL HGB CONCENTRATION 34.4 RED CELL DISTRIBUTION WIDTH 13.6 PLATELET COUNT 165 MEAN PLATELET VOLUME 9.8 NEUTROPHIL % 78.1 H LYMPHOCYTE % 11.4 L MONOCYTE % 9.5 H EOSINOPHIL % 0.1 BASOPHIL % 0.5 NEUTROPHIL # 7.37 LYMPHOCYTE # 1.08 MONOCYTE # 0.90 H EOSINOPHIL # 0.01 BASOPHIL # 0.05 BLOOD GAS W/ELECTROLYTES (06/13/23 21:32) ARTERIAL BLOOD GAS PH 7.37 ARTERIAL BLOOD GAS PCO2 45.6 H ARTERIAL BLOOD GAS PO2 91.2 BICARBONATE TOTAL HCO3 25.9 H BASE EXCESS 0.4 ABG O2 SATURATION 96.7 ARTERIAL FIO2 32.0 ABG VENT MODE NASAL CANNULA ALLENS TEST NOT APPLICABLE SODIUM (POC) 138 POTASSIUM (POC) 4.22 CHLORIDE (ARTERIAL) 101 GLUCOSE 125 H IONIZED CALCIUM 1.09 L POC LACTIC ACID 0.99 TOTAL HGB 12.0 D L CARBOXYHEMOGLOBIN 0.4 METHEMOGLOBIN <0.8 HHb 3.3 TCO2 ARTERIAL 27.3 BLOOD GAS W/ELECTROLYTES (06/13/23 19:51) ARTERIAL BLOOD GAS PH 7.24 L ARTERIAL BLOOD GAS PCO2 48.4 H ARTERIAL BLOOD GAS PO2 152.1 H BICARBONATE TOTAL HCO3 20.2 L BASE EXCESS -7.2 L ABG O2 SATURATION 98.6 ARTERIAL FIO2 40.0 ABG VENT MODE NASAL CANNULA ALLENS TEST NOT APPLICABLE SODIUM (POC) 139 POTASSIUM (POC) 4.60 CHLORIDE (ARTERIAL) 101 GLUCOSE 128 H IONIZED CALCIUM 1.21 POC LACTIC ACID 1.48 TOTAL HGB 13.3 OXYHEMOGLOBIN 98.1 H CARBOXYHEMOGLOBIN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 TIME ACTIVATED 634 H -- QUALITY -- -MEDICATIONS- - I attest that the foregoing medication list in the medical record is true, accurate, and complete to the best of my knowledge. -- ATTESTATION -- TIME SPENT ON PATIENT CARE: - Critical care: time spent apart from any procedure 85 minutes Patient was critically ill due to: Coronary artery disease requiring coronary artery bypass x2, pain/narcotic seeking behavior, acute respiratory insufficiency, acute blood loss anemia. My treatment and management were: discussed on ICU multi-disciplinary rounds with nursing, pharmacy, respiratory therapy, case management and consultants including cardiothoracic surgery regarding postoperative management following coronary bypass. CARE ACTIVITIES / CARE COORDINATION: - I have reviewed the history and repeated the carias elements - I have seen and examined this patient - I have reviewed the progress in the clinical course since the last examination - I have discussed the patient's condition with other members of the care team Signed in PatientKeeper by Sherrie Stein MD on 06/13/23 at 18:19 at 1819 ATTENTION *EDITS and/or ADDENDA must be made in Patient Keeper for this note. * * Edits and ammendments created in [employer] are not visible * * in Patient Keeper or the legal medical record ([facility]). * RPT #: [id number] END OF REPORT [facility] 2023-06-12 12:30:00 [facility] ([facility]) Internal Med. Progress Note REPORT #: [id number] REPORT STATUS: Signed DATE: 06/12/23 TIME: 1230 PATIENT: KOTA MONTES UNIT #: [id number] ROOM #: P.0405 BED: A : 61 AGE: 62 SEX: M ATTEND: Keenan Kumari MD ADM AUTHOR: Janice Blanco NP ATTENTION *EDITS and/or ADDENDA must be made in Patient Keeper for this note. * * Edits and ammendments created in [employer] are not visible * * in Patient Keeper or the legal medical record ([facility]). * -- CO-SIGNATURE -- COMMENTS: I have evaluated the patient with CURRICULUM CONSULTANT, Janice Blanco. for CABG 06/13/[address] Rogerio Pike. post-op care will be transferred to the state fire marshal service. Signed in PatientKeeper by NNAMDI RACHEL MD on 07/07/23 at 17:57 -- ASSESSMENT AND PLAN -- GENERAL ASSESSMENT: 1. Recurrent chest pain, in a patient with a known history of severe multivessel coronary artery disease, status post multiple interventions. Serial cardiac enzymes are negative and myocardial infarction has been ruled out. I will continue aspirin, Brilinta, metoprolol and atorvastatin. selective coronary angiogram by Dr. Kurtis Lynch 05/30 revealing severe multivessel coronary artery disease, not amenable to further angioplasty. CABG advised, week of 06/09. 2. Abdominal distention and pain, rule out ileus/bowel obstruction. Abdominal x-ray non diagnostic. 3. Hypertension. Continue metoprolol. 4. Hyperlipidemia. Continue atorvastatin 40 mg daily. Monitor lipid panel. 5. Alcohol abuse. Delirium tremens prophylaxis. 6. Nicotine dependence, we will offer a Nicoderm patch. 7. Anxiety/depression, not otherwise specified. Continue escitalopram. 8. Severe hyponatremia. The patient has previously had similar hyponatremia and etiology is unclear. 9. Gross noncompliance with instructions and therapy 10. Anxiety. Supportive treatment. ADDITIONAL COMMENTS: Downgraded from CVICU because of adamantly refusing interventions. selective coronary angiogram by Dr. Kurtis Lynch 05/30 revealing severe multivessel coronary artery disease, not amenable to further angioplasty. He was presented at the multidisciplinary conference 06/05, For CABG June 13, [address] Rogerio Pike. -- SUBJECTIVE -- HPI: This 62-year-old gentleman has a past medical history significant for hypertension, hyperlipidemia, myocardial infarction in 2005, angioplasty with stent placement x2 to the RCA in 2005, complex high risk PCI with one stent placement to the RCA and PTCA to the left circumflex with atherectomy and intravenous lithotripsy in 06/2022, status post rotablation and two stents placed to the left circumflex by Dr. Kurtis Lynch on 12/24/2022. On 04/05/2023, he was at an outside emergency room with complaints of chest pain and shortness of breath, but left against medical advice prior to any intervention. He presented to the [facility] Emergency Room on 05/28/2023 with complaints of chest pain and shortness of breath that started earlier this morning, during inactivity. He also reported a cough for the past several days, but denied any fever or known sick contacts. Later after eating his lunch, he reported significant abdominal distention and bloating with abdominal pain. In the emergency room, troponin was negative and EKG showed sinus rhythm, left bundle branch block. He has been admitted for further management. PATIENT NARRATIVE: 05/28: The patient was initially moved down to CV IMU for cardiac management. He continued to have persistent pain despite being started on intravenous heparin infusion. He demanded Dilaudid earlier than the designated time. He was, as previously, disrespectful and rude to the staff. He was transition to CVICU for closer monitoring and initiation of nitroglycerin infusion. The patient refused nitroglycerin infusion, sublingual tablets. Today he also refused heparin infusion, refused blood draws for any reason. He repeatedly threatened to leave AGAINST MEDICAL ADVICE. He is being moved back to CV IMU status as he is not on nitroglycerin drip at this time, and he wants more freedom. He needs selective coronary angiogram, the earliest expected is 05/30. as per state fire marshal: Patient declining all interventions, wanting to leave AMA unless downgraded, chest pain unlikely cardiac, enzymes negative and EKG without concerning features. 05/29: Once again, the patient threatened to walk out AGAINST MEDICAL ADVICE multiple times today. Refused heparin infusion and was off it for about 12 hours. Towards evening he was agreeable and got back on heparin. Plan is for selective coronary angiogram and possible intervention tomorrow. 05/30: He underwent selective coronary angiogram by Dr. Kurtis Lynch 05/30 revealing severe multivessel coronary artery disease, not amenable to further angioplasty. CABG evaluation has been advised. As usual, the patient announced that he is going to leave after the rest period is over. He started ambulating even before the rest period was over. Noncompliance appears to be his response to everything. Apparently his son came by and was able to convince him to stay and get the treatment. It is unclear as to how long he will heed this advice. He now says that morphine is just like "water". He wants to go back to Dilaudid. I have switched him to intravenous Dilaudid 1 mg every 3 hours as needed for recurrent chest pain. 05/31: The patient remains remarkably consistent in his insulting attitude towards staff in general. Overnight he displayed racial discrimination against the nurse, and told her not to touch him. He got up and started walking before the resting time after the heart catheterization was over. FemoStop had to be applied to the groin to control the bleeding. Repeatedly announces that he is going to leave AGAINST MEDICAL ADVICE. A little later he says that okay he will stay for the evaluation. Physically transferred to CV IMU. Plan is for surgical/CABG evaluation. 06/01: He refused to be on heparin. Intermittent chest pain, taking Dilaudid [id number]. We are waiting for surgical recommendations as regards to CABG. 06/02: Intermittent chest pain, taking Dilaudid [id number]. Refuses to be on heparin. Refuses telemetry monitoring. Seen by Dr. Rogerio Pike. CABG has been advised, scheduled for June 06, 2023. The procedure was explained at length to the patient and his Loyd at bedside. 06/03: Intermittent chest pain, demands intravenous Dilaudid around the clock. Pharmacy, in their own wisdom, tried to cut it back to every 4 hours and the patient once again threatened to walk out AGAINST MEDICAL ADVICE. I have advised the pharmacy to please follow the instructions. Will consult pain management services. Also refuses Lidoderm patches because "they do not work". CABG is scheduled for June 06, 2023. 06/04: The patient could not go even 24 hours, without insulting and racially denigrating the staff. Seen by pain management services. Medication regimen optimized but the patient refused, once again, saying that "it does not work". He will be presented at the multidisciplinary conference 06/05, regarding the best option for coronary intervention. 06/05: The patient was discussed at the multidisciplinary conference June 05. Consensus is surgical intervention. Most likely week of June 09. His chest pain and demand for intravenous Dilaudid is way out of proportion to the objective findings. As per cardiothoracic surgery services, intravenous Dilaudid has been discontinued. The patient has been seen by pain management services and oral medications for pain will be allowed at this time. 06/06: continues to be very irritable, still berating the nurses. Off of intravenous narcotics. Chest pain is noncardiac, mostly from the back. Platelet response time is still 110 indicating P2Y12 receptor blockade. We will have to wait for washout prior to CABG. Continues to refuse intravenous heparin. 06/07: Irritable as usual. He researched something online and wants vitamin K and FFP to reverse "Plavix effect". Still not very willing to stay in the hospital, advised by the consultants as to the need for surgery. 06/08: Continues to refuse heparin. Continues to refuse safety monitoring, telemetry. Irritable. Repeatedly announces that he is going to leave AGAINST MEDICAL ADVICE, but has so far not carried out his intentions. Consultants have advised him that it is the safer that he stay in the hospital until he gets his CABG. plavix effect to be rechecked 06/09. 06/09: Plavix effect still 133, indicating P2Y12 blockade echo shows: 1. Left ventricle: The cavity size is normal. Wall thickness is mildly increased. Systolic function is normal. The estimated ejection fraction is 30-34%. Global Hypokinesis. Left ventricular diastolic function parameters are indeterminate. 2. Right ventricle: Systolic function is mildly to moderately reduced. 3. Atrial septum: No defect or patent foramen ovale is identified. The patient says that he wants CABG tomorrow otherwise he is planning to leave the hospital. Await intervention. 06/10: The patient wanted something for anxiety, we ordered alprazolam 0.5 mg every 8 hours as needed. He tells us that "this does not work". He then proceeded to ethnically and religiously berate me in front of the nurse. plans for CABG June 13, [address] Rogerio Pike. 06/11: OOB to recliner. Refused lunch. Complains of intermittent chest pain. Currently on room air. Denies SOB. -REVIEW OF SYSTEMS- COMMENT: CONSTITUTIONAL: No fever or chills. No weight gain or weight loss. HEENT: Some congestion and cough for the past few days. CARDIOPULMONARY: Shortness of breath and acute chest pain starting earlier in the day. GASTROINTESTINAL: Abdominal distention and pain and bloating starting on the day of admission. Nausea. No vomiting. No constipation, but loose stools. GENITOURINARY: Denies any dysuria or discharge. NEUROLOGICAL: Denies any headache, dizziness or syncope. anxiety -- OBJECTIVE -- VITALS (06/10 12:38 - 06/11 12:38): Temperature C: 36.8 (36.4 - 37.1) Temperature source: Axillary Pulse Rate 66 (60 - 69) Respiratory rate: 15 (13 - 20) Blood pressure: 144/83 (102/65 - 150/89) I/Os (06/10 07:00 - 06/11 07:00): Net 480 Intake 480 -EXAM- OTHER: GENERAL: Not in any distress VITAL SIGNS: oxygen saturation 96% on room air. Weight is 84 kilograms. Body mass index 29. HEENT: Head is atraumatic. Pupils are reactive to light and accommodation. Extraocular muscles intact. NECK: Supple. No thyromegaly. No JVD. CARDIOVASCULAR: S1, S2 audible. LUNGS: Clear to auscultation. ABDOMEN: Distended, bowel sounds audible. Minimal tenderness. MUSCULOSKELETAL: No joint tenderness. EXTREMITIES: No edema, cyanosis or clubbing. Pedal pulses palpable. NEUROLOGIC: No focal deficit. irritable. -- DATA -- MEDICATIONS LIDOCAINE 1 PATCH TRANSDERM DAILY SODIUM CHLORIDE 0.9% 1000 ML IV .Q24H MAG HYDROX/AL HYDROX/SIMETH 30 ML PO Q4H PRN cloNIDine HCL 0.1 MG PO Q8H PRN DOCUSATE SODIUM 100 MG PO BID ATORVASTATIN CALCIUM 80 MG PO BEDTIME METOPROLOL TARTRATE 50 MG PO BID ONDANSETRON 4 MG PO Q6H PRN hydrALAZINE HCL 5 MG IV Q6HR PRN ACETAMINOPHEN 650 MG PO Q4H PRN FOLIC ACID 1 MG PO DAILY ONDANSETRON HCL/PF 4 MG IV Q6H PRN methocarbamoL 750 MG PO TID HEPARIN/SOD CHLOR 0.45% 27012 UNITS IV TITRATE ASPIRIN 81 MG PO DAILY THIAMINE HCL 100 MG PO DAILY HEPARIN SODIUM,PORCINE 5000 UNIT IV ASDIR PRN traZODone HCL 100 MG PO BEDTIME METOPROLOL TARTRATE 5 MG IV Q6H PRN ALPRAZolam 0.5 MG PO TID PRN HEPARIN PHARMACY TO MONITOR 1 EACH IV ASDIR PREGABALIN 50 MG PO BID NITROGLYCERIN 0.4 MG SL Q5M PRN HEPARIN SODIUM,PORCINE 3000 UNIT IV ASDIR PRN ESCITALOPRAM 20 MG PO DAILY LABS PLATELET FUNCTION (06/12/23 04:25) PLATELET FUNCTION ANALYSIS 129 PLATELET FUNCTION (06/12/23 04:25) PLATELET FUNCTION ANALYSIS 129 Signed in PatientKeeper by Janice Blanco NP on 06/12/23 at 13:58 Cosigned by NNAMDI RACHEL MD on 07/07/23 at 17:57 at 1757 at 1757 ATTENTION *EDITS and/or ADDENDA must be made in Patient Keeper for this note. * * Edits and ammendments created in [facility] are not visible * * in Patient Keeper or the legal medical record (HPF). * [facility] #: [id number] END OF REPORT [facility] 2023-06-11 13:00:00 [facility] ([facility]) Hospitalist Progress Note REPORT #: [id number] REPORT STATUS: Signed DATE: 06/11/23 TIME: 1300 PATIENT: KOTA MONTES UNIT #: [id number] ROOM #: P.0414 BED: A : 62 AGE: 62 SEX: M ATTEND: Nnamdi Rachel MD ADM AUTHOR: Nnamdi Rachel MD ATTENTION *EDITS and/or ADDENDA must be made in Patient Keeper for this note. * * Edits and ammendments created in [employer] are not visible * * in Patient Keeper or the legal medical record (HPF). * -- ASSESSMENT AND PLAN -- GENERAL ASSESSMENT: ASSESSMENT AND PLAN: 1. Recurrent chest pain, in a patient with a known history of severe multivessel coronary artery disease, status post multiple interventions. Serial cardiac enzymes are negative and myocardial infarction has been ruled out. I will continue aspirin, Brilinta, metoprolol and atorvastatin. selective coronary angiogram by Dr. Kurtis Lynch 05/30 revealing severe multivessel coronary artery disease, not amenable to further angioplasty. CABG advised, week of 06/09. 2. Abdominal distention and pain, rule out ileus/bowel obstruction. Abdominal x-ray non diagnostic. 3. Hypertension. Continue metoprolol. 4. Hyperlipidemia. Continue atorvastatin 40 mg daily. 5. Alcohol abuse. Delirium tremens prophylaxis. 6. Nicotine dependence, we will offer a Nicoderm patch. 7. Anxiety/depression, not otherwise specified. Continue escitalopram. 8. Severe hyponatremia. The patient has previously had similar hyponatremia and etiology is unclear. 9. Gross noncompliance with instructions and therapy 10. Anxiety. Supportive treatment. ADDITIONAL COMMENTS: Downgraded from CVICU because of adamantly refusing interventions. selective coronary angiogram by Dr. Kurtis Lynch 05/30 revealing severe multivessel coronary artery disease, not amenable to further angioplasty. He was presented at the multidisciplinary conference 06/05, For CABG June 13, [address] Rogerio Pike. -- SUBJECTIVE -- HPI: This 62-year-old gentleman has a past medical history significant for hypertension, hyperlipidemia, myocardial infarction in 2005, angioplasty with stent placement x2 to the RCA in 2005, complex high risk PCI with one stent placement to the RCA and PTCA to the left circumflex with atherectomy and intravenous lithotripsy in 06/2022, status post rotablation and two stents placed to the left circumflex by Dr. Kurtis Lynch on 12/24/2022. On 04/05/2023, he was at an outside emergency room with complaints of chest pain and shortness of breath, but left against medical advice prior to any intervention. He presented to the [facility] Emergency Room on 05/28/2023 with complaints of chest pain and shortness of breath that started earlier this morning, during inactivity. He also reported a cough for the past several days, but denied any fever or known sick contacts. Later after eating his lunch, he reported significant abdominal distention and bloating with abdominal pain. In the emergency room, troponin was negative and EKG showed sinus rhythm, left bundle branch block. He has been admitted for further management. PATIENT NARRATIVE: 05/28: The patient was initially moved down to CV IMU for cardiac management. He continued to have persistent pain despite being started on intravenous heparin infusion. He demanded Dilaudid earlier than the designated time. He was, as previously, disrespectful and rude to the staff. He was transition to CVICU for closer monitoring and initiation of nitroglycerin infusion. The patient refused nitroglycerin infusion, sublingual tablets. Today he also refused heparin infusion, refused blood draws for any reason. He repeatedly threatened to leave AGAINST MEDICAL ADVICE. He is being moved back to CV IMU status as he is not on nitroglycerin drip at this time, and he wants more freedom. He needs selective coronary angiogram, the earliest expected is 05/30. as per state fire marshal: Patient declining all interventions, wanting to leave AMA unless downgraded, chest pain unlikely cardiac, enzymes negative and EKG without concerning features. 05/29: Once again, the patient threatened to walk out AGAINST MEDICAL ADVICE multiple times today. Refused heparin infusion and was off it for about 12 hours. Towards evening he was agreeable and got back on heparin. Plan is for selective coronary angiogram and possible intervention tomorrow. 05/30: He underwent selective coronary angiogram by Dr. Kurtis Lynch 05/30 revealing severe multivessel coronary artery disease, not amenable to further angioplasty. CABG evaluation has been advised. As usual, the patient announced that he is going to leave after the rest period is over. He started ambulating even before the rest period was over. Noncompliance appears to be his response to everything. Apparently his son came by and was able to convince him to stay and get the treatment. It is unclear as to how long he will heed this advice. He now says that morphine is just like "water". He wants to go back to Dilaudid. I have switched him to intravenous Dilaudid 1 mg every 3 hours as needed for recurrent chest pain. 05/31: The patient remains remarkably consistent in his insulting attitude towards staff in general. Overnight he displayed racial discrimination against the nurse, and told her not to touch him. He got up and started walking before the resting time after the heart catheterization was over. FemoStop had to be applied to the groin to control the bleeding. Repeatedly announces that he is going to leave AGAINST MEDICAL ADVICE. A little later he says that okay he will stay for the evaluation. Physically transferred to CV IMU. Plan is for surgical/CABG evaluation. 06/01: He refused to be on heparin. Intermittent chest pain, taking Dilaudid [id number]. We are waiting for surgical recommendations as regards to CABG. 06/02: Intermittent chest pain, taking Dilaudid [id number]. Refuses to be on heparin. Refuses telemetry monitoring. Seen by Dr. Rogerio Pike. CABG has been advised, scheduled for June 06, 2023. The procedure was explained at length to the patient and his Loyd at bedside. 06/03: Intermittent chest pain, demands intravenous Dilaudid around the clock. Pharmacy, in their own wisdom, tried to cut it back to every 4 hours and the patient once again threatened to walk out AGAINST MEDICAL ADVICE. I have advised the pharmacy to please follow the instructions. Will consult pain management services. Also refuses Lidoderm patches because "they do not work". CABG is scheduled for June 06, 2023. 06/04: The patient could not go even 24 hours, without insulting and racially denigrating the staff. Seen by pain management services. Medication regimen optimized but the patient refused, once again, saying that "it does not work". He will be presented at the multidisciplinary conference 06/05, regarding the best option for coronary intervention. 06/05: The patient was discussed at the multidisciplinary conference June 05. Consensus is surgical intervention. Most likely week of June 09. His chest pain and demand for intravenous Dilaudid is way out of proportion to the objective findings. As per cardiothoracic surgery services, intravenous Dilaudid has been discontinued. The patient has been seen by pain management services and oral medications for pain will be allowed at this time. 06/06: continues to be very irritable, still berating the nurses. Off of intravenous narcotics. Chest pain is noncardiac, mostly from the back. Platelet response time is still 110 indicating P2Y12 receptor blockade. We will have to wait for washout prior to CABG. Continues to refuse intravenous heparin. 06/07: Irritable as usual. He researched something online and wants vitamin K and FFP to reverse "Plavix effect". Still not very willing to stay in the hospital, advised by the consultants as to the need for surgery. 06/08: Continues to refuse heparin. Continues to refuse safety monitoring, telemetry. Irritable. Repeatedly announces that he is going to leave AGAINST MEDICAL ADVICE, but has so far not carried out his intentions. Consultants have advised him that it is the safer that he stay in the hospital until he gets his CABG. plavix effect to be rechecked 06/09. 06/09: Plavix effect still 133, indicating P2Y12 blockade echo shows: 1. Left ventricle: The cavity size is normal. Wall thickness is mildly increased. Systolic function is normal. The estimated ejection fraction is 30-34%. Global Hypokinesis. Left ventricular diastolic function parameters are indeterminate. 2. Right ventricle: Systolic function is mildly to moderately reduced. 3. Atrial septum: No defect or patent foramen ovale is identified. The patient says that he wants CABG tomorrow otherwise he is planning to leave the hospital. Await intervention. 06/10: The patient wanted something for anxiety, we ordered alprazolam 0.5 mg every 8 hours as needed. He tells us that "this does not work". He then proceeded to ethnically and religiously berate me in front of the nurse. plans for CABG June 13, [address] Rogerio Pike. -REVIEW OF SYSTEMS- GENERAL: CONSTITUTIONAL: No fever or chills. No weight gain or weight loss. HEENT: Some congestion and cough for the past few days. CARDIOPULMONARY: Shortness of breath and acute chest pain starting earlier in the day. GASTROINTESTINAL: Abdominal distention and pain and bloating starting on the day of admission. Nausea. No vomiting. No constipation, but loose stools. GENITOURINARY: Denies any dysuria or discharge. NEUROLOGICAL: Denies any headache, dizziness or syncope. anxiety -- OBJECTIVE -- VITALS (06/09 13:00 - 06/10 13:00): Temperature C: 36.9 (36.6 - 37.1) Temperature source: Oral Pulse Rate 68 (63 - 75) Respiratory rate: 16 Blood pressure: 120/73 (113/73 - 130/80) I/Os (06/09 07:00 - 06/10 07:00): Net 240 Intake 240 -EXAM- GENERAL: GENERAL: Not in any distress VITAL SIGNS: oxygen saturation 96% on room air. Weight is 84 kilograms. Body mass index 29. HEENT: Head is atraumatic. Pupils are reactive to light and accommodation. Extraocular muscles intact. NECK: Supple. No thyromegaly. No JVD. CARDIOVASCULAR: S1, S2 audible. LUNGS: Clear to auscultation. ABDOMEN: Distended, bowel sounds audible. Minimal tenderness. MUSCULOSKELETAL: No joint tenderness. EXTREMITIES: No edema, cyanosis or clubbing. Pedal pulses palpable. NEUROLOGIC: No focal deficit. irritable. -- DATA -- MEDICATIONS LIDOCAINE 1 PATCH TRANSDERM DAILY SODIUM CHLORIDE 0.9% 1000 ML IV .Q24H MAG HYDROX/AL HYDROX/SIMETH 30 ML PO Q4H PRN cloNIDine HCL 0.1 MG PO Q8H PRN DOCUSATE SODIUM 100 MG PO BID ATORVASTATIN CALCIUM 80 MG PO BEDTIME METOPROLOL TARTRATE 50 MG PO BID ONDANSETRON 4 MG PO Q6H PRN hydrALAZINE HCL 5 MG IV Q6HR PRN ACETAMINOPHEN 650 MG PO Q4H PRN FOLIC ACID 1 MG PO DAILY ONDANSETRON HCL/PF 4 MG IV Q6H PRN methocarbamoL 750 MG PO TID HEPARIN/SOD CHLOR 0.45% 18009 UNITS IV TITRATE ASPIRIN 81 MG PO DAILY THIAMINE HCL 100 MG PO DAILY HEPARIN SODIUM,PORCINE 5000 UNIT IV ASDIR PRN traZODone HCL 100 MG PO BEDTIME METOPROLOL TARTRATE 5 MG IV Q6H PRN ALPRAZolam 0.5 MG PO TID PRN HEPARIN PHARMACY TO MONITOR 1 EACH IV ASDIR PREGABALIN 50 MG PO BID NITROGLYCERIN 0.4 MG SL Q5M PRN HEPARIN SODIUM,PORCINE 3000 UNIT IV ASDIR PRN ESCITALOPRAM 20 MG PO DAILY -- QUALITY -- -MEDICATIONS- - I attest that the foregoing medication list in the medical record is true, accurate, and complete to the best of my knowledge. -- ATTESTATION -- CARE ACTIVITIES / CARE COORDINATION: - I have reviewed the history and repeated the carias elements - I have reviewed the progress in the clinical course since the last examination - I have discussed the patient's condition with other members of the care team Signed in PatientKeeper by Nnamdi Rachel MD on 06/11/23 at 18:08 at 1808 ATTENTION *EDITS and/or ADDENDA must be made in Patient Keeper for this note. * * Edits and ammendments created in [facility] are not visible * * in Patient Keeper or the legal medical record (HPF). * RPT #: [id number] END OF REPORT [facility] 2023-06-11 08:37:00 [facility] ([facility]) Cardiology Progress Notes REPORT #: [id number] REPORT STATUS: Signed DATE: 06/11/23 TIME: 836 PATIENT: KOTA MONTES UNIT #: [id number] ROOM #: P.0405 BED: A : 62 AGE: 62 SEX: M ATTEND: Keenan Kumari MD ADM AUTHOR: Camron Patel ATTENTION *EDITS and/or ADDENDA must be made in Patient Keeper for this note. * * Edits and ammendments created in [employer] are not visible * * in Patient Keeper or the legal medical record (HPF). * -- CO-SIGNATURE -- COMMENTS: The patient was seen on rounds with MIAH Monge. The patient has no complaints Examination demonstrates normal heart sounds and clear lung armijo. Impression and plan The patient is a 62-year-old gentleman with a history of coronary artery disease who underwent high risk PCI in December 2022. The patient came in from an outside emergency room with complaint of chest pain and shortness of breath. The patient comes in with unstable angina. The patient underwent cardiac catheterization on 05/30 which demonstrated multivessel coronary artery disease. The patient will need cardiac surgery. We have consulted CV surgery and they are evaluating him for bypass. His dual antiplatelet therapy has been discontinued. The patient was evaluated in multidisciplinary conference, and he is being managed by pain management. He has to be off narcotics for 1 week prior to surgery. Surgery is tentatively planned for June 12. Signed in PatientKeeper by KURTIS LYNCH MD on 07/07/23 at 21:28 -- ASSESSMENT AND PLAN -- PROBLEMS: 1: Coronary artery disease/chest pain A/P: The patient is a 62-year-old gentleman (patient of Dr. Giordano) has a PMHx of coronary artery disease (s/p PCI 2005, 06/2022, 12/24/2022), h/o NM (2005), family history of coronary artery disease, h/o alcohol abuse, nicotine use, hypertension, hyperlipidemia. He underwent percutaneous coronary intervention with rotablation and placement of 2 stents in the LCx on 12/24/[address] Lynch and Dr. Malachi Fitzgerald (see op-note). He was discharged on stable condition on 12/25/22. He presented at an outside emergency room on 04/05/2023 with complaint of chest pain and shortness of breath, and he left against medical advise prior any intervention. He presented today (05/28/23) at [facility] with complaints of shortness of breath and left sided localized sharp chest pain that started earlier today. He reports the symptoms are similar when he had the previous percutaneous coronary interventions. He reports being complaint taking his medications, including DAPT. Workup showed negative troponin, BNP 78, Na 128. EKG shows normal sinus rhythm and left bundle branch block. Chest x-ray showed unremarkable frontal chest radiograph. He was admitted for further evaluation and management. On 05/28/23 night, he reported chest pain and was transferred to CVICU for closer observation. He had coronary angiogram and showed severe multi-vessel disease not amenable for PCI and CABG was recommended on 05/31/[address] Lynch (see op-note). He tolerated the procedure well. He is transferred out to CVICU and is on CVIMU now. - Echo (06/03) - EF 30-34%, global hypokinesis, LV diastolic function parameter indeterminate, RV systolic function mildly to moderately reduced - S/p SCA on 05/31/23, showed multi-vessel disease, not amenable for PCI. - Patient is refusing heparin drip. Per CV surgery, the patient needs to be off narcotics prior surgery, pain management with Tylenol, Robaxin and Lyrica. Dr. José with pain management following - On aspirin (not given today and yesterday). Brilinta on hold given upcoming surgery. Plavix effect 133 on 06/10/23 - On atorvastatin 40mg daily, metoprolol tartrate 50mg BID - He reports SL nitroglycerin does not relieve the chest pain and morphine does not subside the pain - Pre-op workup for CABG per CV surgery - CV surgery is planning CABG, likely on (06/13/23) - Patient is still not really wanting to stay in the hospital but we advised him that is the safest thing for him to do until he can undergo his surgery. He has so far agreed. -- SUBJECTIVE -- CHIEF COMPLAINT: Chest pain, shortness of breath PATIENT NARRATIVE: Sitting in the chair. On room air. He states surgery is on . He denies complaints today. No acute events overnight. -REVIEW OF SYSTEMS- GENERAL: Negative for fever, malaise, fatigue. EYES: Negative for blurry vision. No diplopia. EARS/NOSE/THROAT: Negative for sore throat. No otalgia. No rhinorrhea. RESPIRATORY: Negative for dyspnea or wheeze. No cough. CARDIOVASCULAR: Negative for chest pain or palpitations. No extremity swelling. GASTROINTESTINAL: Negative for abdominal pain or nausea. No emesis. No diarrhea. GENITOURINARY: Negative for dysuria, frequency, or urgency. No gross hematuria. MUSCULOSKELETAL: Negative for joint stiffness, pain, or arthralgias. SKIN: Negative for rashes. No pruritus. NEUROLOGICAL: Negative for headache. No vertigo. Denies paresthesias. PSYCHIATRIC: Negative for specific complaints. -- OBJECTIVE -- VITALS (06/09 06:52 - 06/10 06:52): Temperature C: 36.6 (36.6 - 37.1) Pulse Rate 66 (63 - 75) Blood pressure: 117/74 (107/72 - 130/80) I/Os (06/08 07:00 - 06/09 07:00): Net 1,640 Intake 1,640 -EXAM- OTHER: Constitutional: Well developed, well nourished patient, in no acute distress. Derm/Integumentary: Warm and dry with no rashes, sores, or lesions. HEENT: Eyes-sclera clear and white, symmetrical w/ no lag. ENT - Palate and gums pink, mucosa moist, no pallor/cyanosis. Right eye redness Neck: supple with no masses, no thyromegaly, No JVD. Respiratory: Clear to auscultation. Heart: S1S2+, Regular Rate and Rhythm, No murmurs, rubs, or gallops. Gastrointestinal: + Bowel Sounds all quadrants. Soft, nontender with no masses or organomegaly; No HJR. Musculoskeletal: Equal strength in all extremities. No weakness. Neurology: Alert and oriented X 3. Calm, cooperative affect. No focal deficits. Extremities: + peripheral pulses. No clubbing, cyanosis. No lower extremity edema. -- DATA -- MEDICATIONS LIDOCAINE 1 PATCH TRANSDERM DAILY SODIUM CHLORIDE 0.9% 1000 ML IV .Q24H ASPIRIN 81 MG PO DAILY THIAMINE HCL 100 MG PO DAILY MAG HYDROX/AL HYDROX/SIMETH 30 ML PO Q4H PRN cloNIDine HCL 0.1 MG PO Q8H PRN DOCUSATE SODIUM 100 MG PO BID HEPARIN SODIUM,PORCINE 5000 UNIT IV ASDIR PRN ATORVASTATIN CALCIUM 80 MG PO BEDTIME traZODone HCL 100 MG PO BEDTIME METOPROLOL TARTRATE 5 MG IV Q6H PRN METOPROLOL TARTRATE 50 MG PO BID ONDANSETRON 4 MG PO Q6H PRN HEPARIN PHARMACY TO MONITOR 1 EACH IV ASDIR PREGABALIN 50 MG PO BID hydrALAZINE HCL 5 MG IV Q6HR PRN ACETAMINOPHEN 650 MG PO Q4H PRN FOLIC ACID 1 MG PO DAILY ONDANSETRON HCL/PF 4 MG IV Q6H PRN methocarbamoL 750 MG PO TID HEPARIN/SOD CHLOR 0.45% 25296 UNITS IV TITRATE NITROGLYCERIN 0.4 MG SL Q5M PRN HEPARIN SODIUM,PORCINE 3000 UNIT IV ASDIR PRN ESCITALOPRAM 20 MG PO DAILY LABS PLT RESP PLAVIX (06/10/23 09:52) PLT RESPONSE TO PLAVIX 133 PLT RESP PLAVIX (06/10/23 09:52) PLT RESPONSE TO PLAVIX 133 -- ATTESTATION -- CARE ACTIVITIES / CARE COORDINATION: - I have reviewed the history and repeated the carias elements - I have seen and examined this patient - I have reviewed the progress in the clinical course since the last examination - I have discussed the patient's condition with other members of the care team ADDITIONAL DETAIL: Plan of care discussed with Dr. Kurtis Lynch Signed in PatientKeeper by CAMRON PATEL on 06/11/23 at 13:39 Cosigned by KURTIS LYNCH MD on 07/07/23 at 21:28 at 2128 at 2128 ATTENTION *EDITS and/or ADDENDA must be made in Patient Keeper for this note. * * Edits and ammendments created in [employer] are not visible * * in Patient Keeper or the legal medical record ([facility]). * [facility] #: [id number] END OF REPORT [facility] 2023-06-10 13:35:00 [id number] [place] [address] PATIENT NAME: KOTA MONTES ADMIT DATE: 05/29/23 ACCOUNT NO: [id number] ROOM NO: P.0414 AGE: 62 REPORT TYPE: eECHOCARDIOGRAM REPORT SEX: M ADMITTING PHYSICIAN: Nnamdi Rachel MD ATTENDING PHYSICIAN: Nnamdi Rachel MD *[facility]* [facility] [place] [address] Transthoracic Echocardiogram Patient: Kota Montes Study Date: 06/04/2023 BP: 104 / 61 URN: [id number] Location: : 1960 Age: 62 Gender: M Height: 67 in / 170.2 cm Weight: 186 lb / 84.4 kg BMI/BSA: 29.1 kg/m 2 / 2.02 m 2 *Ordering Physician: * Rogerio Pike MD *Interpreting Physician: * Kurtis Lynch M.D. *Boat Washer: * Dumas Cornel Ruiz Indications: PRE OP. Study data: Transthoracic echocardiogram. Procedure: A transthoracic echocardiogram was performed. Image quality was fair. Complete 2D, complete spectral Doppler, and color Doppler. Location: Bedside. Patient status: Inpatient. Study status: Stat. Findings Left ventricle: The cavity size is normal. Wall thickness is mildly increased. Systolic function is normal. The estimated ejection fraction is 30-34%. Regional wall motion abnormalities: Global Hypokinesis. Left ventricular diastolic function parameters are indeterminate. Right ventricle: The cavity size is normal. Systolic function is mildly to moderately reduced. PATIENT NAME: KOTA MONTES Left atrium: The atrium is normal in size. Right atrium: The atrium is normal in size. Atrial septum: No defect or patent foramen ovale is identified. Aorta: Aortic root: The root is normal-sized. Aortic valve: The valve is trileaflet. The leaflets are mildly thickened and mildly calcified. There is no evidence of stenosis. There is trace regurgitation. Mitral valve: The leaflets are mildly thickened and mildly calcified. There is no evidence of stenosis. There is trace regurgitation. Tricuspid valve: The valve is structurally normal. There is no evidence of stenosis. There is trace regurgitation. Pulmonic valve: The valve is structurally normal. There is no evidence of stenosis. There is trace regurgitation. Pericardium: There is no pericardial effusion. Systemic veins: Inferior vena cava: The IVC is normal-sized. Respirophasic diameter changes are in the normal range (>= 50%). Measurements Left ventricle Value Ref 06/02/2022 JUSTIN, LAX 5.0 cm 4.2 - 5.8 4.4 ESD, LAX 3.4 cm 2.5 - 4.0 3.4 FS, LAX 31 % 24 JUSTIN major ax, A2C 8.2 cm --------- ESD major ax, A2C 7.0 cm --------- IVS, ED 1.1 cm 0.6 - 1.0 1.1 ESD 3.4 cm 2.5 - 4.0 FS 31 % 24 PW, ED 1.1 cm 0.6 - 1.0 1.2 IVS/PW, ED 0.94 --------- 0.98 EF 59 % 52 - 72 48 EF, MM on 2D Teich. 59 % >=55 48 E', lat candice, TDI 7.4 cm/sec >=10.0 8.7 E/e', lat candice, TDI 11 <=13 E', med candice, TDI 5.1 cm/sec >=7.0 5.6 E/e', med candice, TDI 16 --------- E', avg, TDI 6.3 cm/sec --------- E/e', avg, TDI 13 <=14 LVOT Value Ref 06/02/2022 Diam, S 1.89 cm --------- Area 2.8 cm 2 --------- 3.0 Peak latanya, S 1.03 m/sec --------- 1.22 Mean latanya, S 0.63 m/sec --------- 0.87 VTI, S 19.7 cm --------- 22.5 Peak grad, S 4 mm Hg --------- 6 Mean grad, S 2 mm Hg --------- 1 SV 55 ml --------- 69 SV/bsa 27 ml/m 2 --------- 37 Right ventricle Value Ref 06/02/2022 PATIENT NAME: MONTESKOTAVARUN OHARA JUSTIN, LAX 3.9 cm --------- 2.3 JUSTIN 3.9 cm --------- 2.3 TAPSE, 2D 2.1 cm >=1.7 2.6 TAPSE, MM 2.1 cm >=1.7 2.6 S' lateral 10.5 cm/sec >=9.5 Left atrium Value Ref 06/02/2022 LA ID 4.0 cm --------- 3.5 AP dim, ES 4.0 cm 3.0 - 4.0 3.5 AP dim ES, LAX 4.0 cm 3.0 - 4.0 3.5 SI dim ES, LAX 4.0 cm --------- 3.5 Vol/bsa, S 30 ml/m 2 16 - 34 Vol, ES, 2-p 65 ml --------- 37 Vol/bsa, ES, 2-p 32 ml/m 2 16 34 20 LA/Ao root ratio 1.06 --------- 1.31 AP dim, ES MM 4.0 cm 3.0 - 4.0 3.5 LA/Ao root ratio, MM 1 --------- 1 Right atrium Value Ref 06/02/2022 Area, ES 16 cm 2 10 18 Area, ES, A4C 16 cm 2 10 18 Aortic valve Value Ref 06/02/2022 Peak v, S 1.8 m/sec --------- 1.7 Mean v, S 1.05 m/sec --------- 1.31 VTI, S 36.2 cm --------- 29.2 Mean grad, S 5 mm Hg --------- 7 Peak grad, S 13.2 mm Hg --------- 11.6 LVOT/AV, VTI ratio 0.55 --------- 0.77 SUKHJINDER, VTI 1.52 cm 2 --------- 3.04 LVOT/AV, Vpeak ratio 0.57 --------- 0.71 SUKHJINDER, Vmax 1.59 cm 2 --------- 2.85 Mitral valve Value [facility] 06/02/2022 Mean v, D 0.45 m/sec --------- 0.8 Peak E 0.06 m/sec --------- 0.07 Peak A 0.79 m/sec --------- 0.96 VTI leaflet coapt 22.6 cm --------- 24.4 MiV/LVOT VTI 1.1 --------- Decel time 166 ms --------- 137 PHT 91 ms --------- Mean grad, D 1 mm Hg --------- 3 Peak grad, D 2.9 mm Hg --------- 5.0 Peak E/A ratio 1.04 --------- MVA, PHT 2.4 cm 2 --------- Aortic root Value Ref 06/02/2022 Root diam 3.8 cm 2.7 - 4.1 Root diam, ED MM 4.0 cm --------- Ascending aorta Value Ref 06/02/2022 AAo AP diam, S 3.9 cm --------- Inferior vena cava Value Ref 06/02/2022 PATIENT NAME: KOTA MONTES Diam 1.9 cm <=2.1 Pulmonary veins Value Ref 06/02/2022 Peak v, S 0.31 m/sec --------- Peak v, D 0.28 m/sec --------- Peak S/D ratio 1.11 --------- S/D ratio, VTI 1.11 --------- Peak A rev v 0.18 m/sec --------- A rev duration 88 ms --------- Conclusions Summary: 1. Left ventricle: The cavity size is normal. Wall thickness is mildly increased. Systolic function is normal. The estimated ejection fraction is 30-34%. Global Hypokinesis. Left ventricular diastolic function parameters are indeterminate. 2. Right ventricle: Systolic function is mildly to moderately reduced. 3. Atrial septum: No defect or patent foramen ovale is identified. Electronically signed by Kurtis Lynch M.D. 06/10/2023 13:35 at 1335 PATIENT NAME: KOTA MONTES [facility] 2023-06-10 11:25:00 [facility] ([facility]) Hospitalist Progress Note REPORT #: [id number] REPORT STATUS: Signed DATE: 06/10/23 TIME: 1125 PATIENT: KOTA MONTES UNIT #: [id number] ROOM #: P.0414 BED: A : 62 AGE: 62 SEX: M ATTEND: Nnamdi Rachel MD ADM AUTHOR: Nnamdi Rachel MD ATTENTION *EDITS and/or ADDENDA must be made in Patient Keeper for this note. * * Edits and ammendments created in [employer] are not visible * * in Patient Keeper or the legal medical record ([facility]). * -- ASSESSMENT AND PLAN -- GENERAL ASSESSMENT: ASSESSMENT AND PLAN: 1. Recurrent chest pain, in a patient with a known history of severe multivessel coronary artery disease, status post multiple interventions. Serial cardiac enzymes are negative and myocardial infarction has been ruled out. I will continue aspirin, Brilinta, metoprolol and atorvastatin. selective coronary angiogram by Dr. Kurtis Lynch 05/30 revealing severe multivessel coronary artery disease, not amenable to further angioplasty. CABG advised, week of 06/09. 2. Abdominal distention and pain, rule out ileus/bowel obstruction. Abdominal x-ray non diagnostic. 3. Hypertension. Continue metoprolol. 4. Hyperlipidemia. Continue atorvastatin 40 mg daily. 5. Alcohol abuse. Delirium tremens prophylaxis. 6. Nicotine dependence, we will offer a Nicoderm patch. 7. Anxiety/depression, not otherwise specified. Continue escitalopram. 8. Severe hyponatremia. The patient has previously had similar hyponatremia and etiology is unclear. 9. Gross noncompliance with instructions and therapy ADDITIONAL COMMENTS: Downgraded from CVICU because of adamantly refusing interventions. selective coronary angiogram by Dr. Kurtis Lynch 05/30 revealing severe multivessel coronary artery disease, not amenable to further angioplasty. He was presented at the multidisciplinary conference 06/05, Consensus is surgical revascularization, week June [address] Rogerio Pike. -- SUBJECTIVE -- HPI: This 62-year-old gentleman has a past medical history significant for hypertension, hyperlipidemia, myocardial infarction in 2005, angioplasty with stent placement x2 to the RCA in 2005, complex high risk PCI with one stent placement to the RCA and PTCA to the left circumflex with atherectomy and intravenous lithotripsy in 06/2022, status post rotablation and two stents placed to the left circumflex by Dr. Kurtis Lynch on 12/24/2022. On 04/05/2023, he was at an outside emergency room with complaints of chest pain and shortness of breath, but left against medical advice prior to any intervention. He presented to the [facility] Emergency Room on 05/28/2023 with complaints of chest pain and shortness of breath that started earlier this morning, during inactivity. He also reported a cough for the past several days, but denied any fever or known sick contacts. Later after eating his lunch, he reported significant abdominal distention and bloating with abdominal pain. In the emergency room, troponin was negative and EKG showed sinus rhythm, left bundle branch block. He has been admitted for further management. PATIENT NARRATIVE: 05/28: The patient was initially moved down to CV IMU for cardiac management. He continued to have persistent pain despite being started on intravenous heparin infusion. He demanded Dilaudid earlier than the designated time. He was, as previously, disrespectful and rude to the staff. He was transition to CVICU for closer monitoring and initiation of nitroglycerin infusion. The patient refused nitroglycerin infusion, sublingual tablets. Today he also refused heparin infusion, refused blood draws for any reason. He repeatedly threatened to leave AGAINST MEDICAL ADVICE. He is being moved back to CV IMU status as he is not on nitroglycerin drip at this time, and he wants more freedom. He needs selective coronary angiogram, the earliest expected is 05/30. as per state fire marshal: Patient declining all interventions, wanting to leave AMA unless downgraded, chest pain unlikely cardiac, enzymes negative and EKG without concerning features. 05/29: Once again, the patient threatened to walk out AGAINST MEDICAL ADVICE multiple times today. Refused heparin infusion and was off it for about 12 hours. Towards evening he was agreeable and got back on heparin. Plan is for selective coronary angiogram and possible intervention tomorrow. 05/30: He underwent selective coronary angiogram by Dr. Kurtis Lynch 05/30 revealing severe multivessel coronary artery disease, not amenable to further angioplasty. CABG evaluation has been advised. As usual, the patient announced that he is going to leave after the rest period is over. He started ambulating even before the rest period was over. Noncompliance appears to be his response to everything. Apparently his son came by and was able to convince him to stay and get the treatment. It is unclear as to how long he will heed this advice. He now says that morphine is just like "water". He wants to go back to Dilaudid. I have switched him to intravenous Dilaudid 1 mg every 3 hours as needed for recurrent chest pain. 05/31: The patient remains remarkably consistent in his insulting attitude towards staff in general. Overnight he displayed racial discrimination against the nurse, and told her not to touch him. He got up and started walking before the resting time after the heart catheterization was over. FemoStop had to be applied to the groin to control the bleeding. Repeatedly announces that he is going to leave AGAINST MEDICAL ADVICE. A little later he says that okay he will stay for the evaluation. Physically transferred to CV IMU. Plan is for surgical/CABG evaluation. 06/01: He refused to be on heparin. Intermittent chest pain, taking Dilaudid [id number]. We are waiting for surgical recommendations as regards to CABG. 06/02: Intermittent chest pain, taking Dilaudid [id number]. Refuses to be on heparin. Refuses telemetry monitoring. Seen by Dr. Rogerio Pike. CABG has been advised, scheduled for June 06, 2023. The procedure was explained at length to the patient and his Loyd at bedside. 06/03: Intermittent chest pain, demands intravenous Dilaudid around the clock. Pharmacy, in their own wisdom, tried to cut it back to every 4 hours and the patient once again threatened to walk out AGAINST MEDICAL ADVICE. I have advised the pharmacy to please follow the instructions. Will consult pain management services. Also refuses Lidoderm patches because "they do not work". CABG is scheduled for June 06, 2023. 06/04: The patient could not go even 24 hours, without insulting and racially denigrating the staff. Seen by pain management services. Medication regimen optimized but the patient refused, once again, saying that "it does not work". He will be presented at the multidisciplinary conference 06/05, regarding the best option for coronary intervention. 06/05: The patient was discussed at the multidisciplinary conference June 05. Consensus is surgical intervention. Most likely week of June 09. His chest pain and demand for intravenous Dilaudid is way out of proportion to the objective findings. As per cardiothoracic surgery services, intravenous Dilaudid has been discontinued. The patient has been seen by pain management services and oral medications for pain will be allowed at this time. 06/06: continues to be very irritable, still berating the nurses. Off of intravenous narcotics. Chest pain is noncardiac, mostly from the back. Platelet response time is still 110 indicating P2Y12 receptor blockade. We will have to wait for washout prior to CABG. Continues to refuse intravenous heparin. 06/07: Irritable as usual. He researched something online and wants vitamin K and FFP to reverse "Plavix effect". Still not very willing to stay in the hospital, advised by the consultants as to the need for surgery. 06/08: Continues to refuse heparin. Continues to refuse safety monitoring, telemetry. Irritable. Repeatedly announces that he is going to leave AGAINST MEDICAL ADVICE, but has so far not carried out his intentions. Consultants have advised him that it is the safer that he stay in the hospital until he gets his CABG. plavix effect to be rechecked 06/09. 06/09: Plavix effect still 133, indicating P2Y12 blockade echo shows: 1. Left ventricle: The cavity size is normal. Wall thickness is mildly increased. Systolic function is normal. The estimated ejection fraction is 30-34%. Global Hypokinesis. Left ventricular diastolic function parameters are indeterminate. 2. Right ventricle: Systolic function is mildly to moderately reduced. 3. Atrial septum: No defect or patent foramen ovale is identified. The patient says that he wants CABG tomorrow otherwise he is planning to leave the hospital. Await intervention. -REVIEW OF SYSTEMS- GENERAL: CONSTITUTIONAL: No fever or chills. No weight gain or weight loss. HEENT: Some congestion and cough for the past few days. CARDIOPULMONARY: Shortness of breath and acute chest pain starting earlier in the day. GASTROINTESTINAL: Abdominal distention and pain and bloating starting on the day of admission. Nausea. No vomiting. No constipation, but loose stools. GENITOURINARY: Denies any dysuria or discharge. NEUROLOGICAL: Denies any headache, dizziness or syncope. -- OBJECTIVE -- VITALS (06/08 11:26 - 06/09 11:26): Temperature C: 36.9 (36.5 - 37.0) Temperature source: Oral Pulse Rate 68 (60 - 69) Respiratory rate: 19 (18 - 22) Blood pressure: 107/72 (107/71 - 156/85) I/Os (06/08 07:00 - 06/09 07:00): Net 1,640 Intake 1,640 -EXAM- GENERAL: GENERAL: Not in any distress VITAL SIGNS: oxygen saturation 96% on room air. Weight is 84 kilograms. Body mass index 29. HEENT: Head is atraumatic. Pupils are reactive to light and accommodation. Extraocular muscles intact. NECK: Supple. No thyromegaly. No JVD. CARDIOVASCULAR: S1, S2 audible. LUNGS: Clear to auscultation. ABDOMEN: Distended, bowel sounds audible. Minimal tenderness. MUSCULOSKELETAL: No joint tenderness. EXTREMITIES: No edema, cyanosis or clubbing. Pedal pulses palpable. NEUROLOGIC: No focal deficit. irritable. -- DATA -- MEDICATIONS LIDOCAINE 1 PATCH TRANSDERM DAILY SODIUM CHLORIDE 0.9% 1000 ML IV .Q24H ASPIRIN 81 MG PO DAILY THIAMINE HCL 100 MG PO DAILY MAG HYDROX/AL HYDROX/SIMETH 30 ML PO Q4H PRN cloNIDine HCL 0.1 MG PO Q8H PRN DOCUSATE SODIUM 100 MG PO BID HEPARIN SODIUM,PORCINE 5000 UNIT IV ASDIR PRN ATORVASTATIN CALCIUM 80 MG PO BEDTIME traZODone HCL 100 MG PO BEDTIME METOPROLOL TARTRATE 5 MG IV Q6H PRN METOPROLOL TARTRATE 50 MG PO BID ONDANSETRON 4 MG PO Q6H PRN HEPARIN PHARMACY TO MONITOR 1 EACH IV ASDIR PREGABALIN 50 MG PO BID hydrALAZINE HCL 5 MG IV Q6HR PRN ACETAMINOPHEN 650 MG PO Q4H PRN FOLIC ACID 1 MG PO DAILY ONDANSETRON HCL/PF 4 MG IV Q6H PRN methocarbamoL 750 MG PO TID HEPARIN/SOD CHLOR 0.45% 37618 UNITS IV TITRATE NITROGLYCERIN 0.4 MG SL Q5M PRN HEPARIN SODIUM,PORCINE 3000 UNIT IV ASDIR PRN ESCITALOPRAM 20 MG PO DAILY LABS COMPREHENSIVE METABOLIC PANEL (06/10/23 05:04) SODIUM 136 POTASSIUM 3.8 CHLORIDE 106 CARBON DIOXIDE 24 GLUCOSE 82 BLOOD UREA NITROGEN 9 GLOMERULAR FILTRATION RATE >=60 max estimate CREATININE 0.90 TOTAL PROTEIN 6.8 ALBUMIN 4.5 CALCIUM 9.0 BILIRUBIN TOTAL 0.5 SGOT/AST 28 SGPT/ALT 24 ALKALINE PHOSPHATASE 71.0 CBC W/AUTO DIFF (06/10/23 05:04) WHITE BLOOD CELL 8.2 RED BLOOD CELL 4.70 HEMOGLOBIN 15.4 HEMATOCRIT 45.9 MEAN CELL VOLUME 97.7 H MEAN CELL HGB 32.8 H MEAN CELL HGB CONCENTRATION 33.6 RED CELL DISTRIBUTION WIDTH 13.2 PLATELET COUNT 221 MEAN PLATELET VOLUME 9.7 NEUTROPHIL % 62.7 LYMPHOCYTE % 25.5 MONOCYTE % 9.3 EOSINOPHIL % 1.3 BASOPHIL % 0.7 NEUTROPHIL # 5.10 LYMPHOCYTE # 2.08 MONOCYTE # 0.76 EOSINOPHIL # 0.11 BASOPHIL # 0.06 PLT RESP PLAVIX (06/10/23 09:52) PLT RESPONSE TO PLAVIX 133 PLT RESP PLAVIX (06/10/23 09:52) PLT RESPONSE TO PLAVIX 133 -- QUALITY -- -MEDICATIONS- - I attest that the foregoing medication list in the medical record is true, accurate, and complete to the best of my knowledge. -- ATTESTATION -- CARE ACTIVITIES / CARE COORDINATION: - I have reviewed the history and repeated the carias elements - I have reviewed the progress in the clinical course since the last examination - I have discussed the patient's condition with other members of the care team Signed in PatientKeeper by Nnamdi Rachel MD on 06/10/23 at 18:54 at 1854 ATTENTION *EDITS and/or ADDENDA must be made in Patient Keeper for this note. * * Edits and ammendments created in [employer] are not visible * * in Patient Keeper or the legal medical record ([facility]). * RPT #: [id number] END OF REPORT [facility] 2023-06-10 08:50:00 [facility] ([facility]) Cardiology Progress Notes REPORT #: [id number] REPORT STATUS: Signed DATE: 06/10/23 TIME: 849 PATIENT: KOTA MONTES UNIT #: [id number] ROOM #: P.0405 BED: A : 62 AGE: 62 SEX: M ATTEND: Keenan Kumari MD ADM AUTHOR: Camron Patel ATTENTION *EDITS and/or ADDENDA must be made in Patient Keeper for this note. * * Edits and ammendments created in [employer] are not visible * * in Patient Keeper or the legal medical record ([facility]). * -- CO-SIGNATURE -- COMMENTS: The patient was seen on rounds with MIAH Monge. The patient has no complaints Examination demonstrates normal heart sounds and clear lung armijo. Impression and plan The patient is a 62-year-old gentleman with a history of coronary artery disease who underwent high risk PCI in December 2022. The patient came in from an outside emergency room with complaint of chest pain and shortness of breath. The patient comes in with unstable angina. The patient underwent cardiac catheterization on Saturday which demonstrated multivessel coronary artery disease. The patient will need cardiac surgery. We have consulted CV surgery and they are evaluating him for bypass. His dual antiplatelet therapy has been discontinued. The patient was evaluated in multidisciplinary conference, and he is being managed by pain management. He has to be off narcotics for 1 week prior to surgery. He will likely have cardiac surgery next week. Signed in PatientKeeper by KURTIS LYNCH MD on 07/07/23 at 21:26 -- ASSESSMENT AND PLAN -- PROBLEMS: 1: Coronary artery disease/chest pain A/P: The patient is a 62-year-old gentleman (patient of Dr. Giordano) has a PMHx of coronary artery disease (s/p PCI 2005, 06/2022, 12/24/2022), h/o NM (2005), family history of coronary artery disease, h/o alcohol abuse, nicotine use, hypertension, hyperlipidemia. He underwent percutaneous coronary intervention with rotablation and placement of 2 stents in the LCx on 12/24/[address] Lynch and Dr. Malachi Fitzgerald (see op-note). He was discharged on stable condition on 12/25/22. He presented at an outside emergency room on 04/05/2023 with complaint of chest pain and shortness of breath, and he left against medical advise prior any intervention. He presented today (05/28/23) at [facility] with complaints of shortness of breath and left sided localized sharp chest pain that started earlier today. He reports the symptoms are similar when he had the previous percutaneous coronary interventions. He reports being complaint taking his medications, including DAPT. Workup showed negative troponin, BNP 78, Na 128. EKG shows normal sinus rhythm and left bundle branch block. Chest x-ray showed unremarkable frontal chest radiograph. He was admitted for further evaluation and management. On 05/28/23 night, he reported chest pain and was transferred to CVICU for closer observation. He had coronary angiogram and showed severe multi-vessel disease not amenable for PCI and CABG was recommended on 05/31/[address] Lynch (see op-note). He tolerated the procedure well. He is transferred out to CVICU and is on CVIMU now. - S/p SCA on 05/31/23, showed multi-vessel disease, not amenable for PCI. - Patient is refusing heparin drip. Per CV surgery, the patient needs to be off narcotics prior surgery, pain management with Tylenol, Robaxin and Lyrica. Dr. José with pain management following - On aspirin. Brilinta on hold given upcoming surgery. Re-check plavix effect today per CV surgery. Plavix effect 111 on 06/07/23 - Continue atorvastatin 40mg daily, metoprolol tartrate 50mg BID - He reports SL nitroglycerin does not relieve the chest pain and morphine does not subside the pain - Pre-op workup for CABG per CV surgery - CV surgery is planning CABG, likely the week of 06/10/23 - Patient is still not really wanting to stay in the hospital but we advised him that is the safest thing for him to do until he can undergo his surgery. He has so far agreed. -- SUBJECTIVE -- CHIEF COMPLAINT: Chest pain, shortness of breath PATIENT NARRATIVE: Sitting in the chair. He is awaiting Brilinta washout to proceed with surgery. He is frustrated that needs to be drawn again for the plavix effect test. No acute events overnight. -REVIEW OF SYSTEMS- GENERAL: Negative for fever, malaise, fatigue. EYES: Negative for blurry vision. No diplopia. EARS/NOSE/THROAT: Negative for sore throat. No otalgia. No rhinorrhea. RESPIRATORY: Negative for dyspnea or wheeze. No cough. CARDIOVASCULAR: Negative for chest pain or palpitations. No extremity swelling. GASTROINTESTINAL: Negative for abdominal pain or nausea. No emesis. No diarrhea. GENITOURINARY: Negative for dysuria, frequency, or urgency. No gross hematuria. MUSCULOSKELETAL: Negative for joint stiffness, pain, or arthralgias. SKIN: Negative for rashes. No pruritus. NEUROLOGICAL: Negative for headache. No vertigo. Denies paresthesias. PSYCHIATRIC: Negative for specific complaints. -- OBJECTIVE -- VITALS (06/08 07:15 - 06/09 07:15): Temperature C: 37.0 (36.5 - 37.0) Temperature source: Oral Pulse Rate 69 (60 - 69) Respiratory rate: 19 (18 - 22) Blood pressure: 113/76 (113/71 - 156/85) I/Os (06/08 07:00 - 06/09 07:00): Net 1,640 Intake 1,640 -EXAM- OTHER: Constitutional: Well developed, well nourished patient, in no acute distress. Derm/Integumentary: Warm and dry with no rashes, sores, or lesions. HEENT: Eyes-sclera clear and white, symmetrical w/ no lag. ENT - Palate and gums pink, mucosa moist, no pallor/cyanosis. Right eye redness Neck: supple with no masses, no thyromegaly, No JVD. Respiratory: Clear to auscultation. Heart: S1S2+, Regular Rate and Rhythm, No murmurs, rubs, or gallops. Gastrointestinal: + Bowel Sounds all quadrants. Soft, nontender with no masses or organomegaly; No HJR. Musculoskeletal: Equal strength in all extremities. No weakness. Neurology: Alert and oriented X 3. Calm, cooperative affect. No focal deficits. Extremities: + peripheral pulses. No clubbing, cyanosis. No lower extremity edema. -- DATA -- MEDICATIONS LIDOCAINE 1 PATCH TRANSDERM DAILY SODIUM CHLORIDE 0.9% 1000 ML IV .Q24H ASPIRIN 81 MG PO DAILY THIAMINE HCL 100 MG PO DAILY MAG HYDROX/AL HYDROX/SIMETH 30 ML PO Q4H PRN cloNIDine HCL 0.1 MG PO Q8H PRN DOCUSATE SODIUM 100 MG PO BID HEPARIN SODIUM,PORCINE 5000 UNIT IV ASDIR PRN ATORVASTATIN CALCIUM 80 MG PO BEDTIME traZODone HCL 100 MG PO BEDTIME METOPROLOL TARTRATE 5 MG IV Q6H PRN METOPROLOL TARTRATE 50 MG PO BID ONDANSETRON 4 MG PO Q6H PRN HEPARIN PHARMACY TO MONITOR 1 EACH IV ASDIR PREGABALIN 50 MG PO BID hydrALAZINE HCL 5 MG IV Q6HR PRN ACETAMINOPHEN 650 MG PO Q4H PRN FOLIC ACID 1 MG PO DAILY ONDANSETRON HCL/PF 4 MG IV Q6H PRN methocarbamoL 750 MG PO TID HEPARIN/SOD CHLOR 0.45% 24950 UNITS IV TITRATE NITROGLYCERIN 0.4 MG SL Q5M PRN HEPARIN SODIUM,PORCINE 3000 UNIT IV ASDIR PRN ESCITALOPRAM 20 MG PO DAILY LABS COMPREHENSIVE METABOLIC PANEL (06/10/23 05:04) SODIUM 136 POTASSIUM 3.8 CHLORIDE 106 CARBON DIOXIDE 24 GLUCOSE 82 BLOOD UREA NITROGEN 9 GLOMERULAR FILTRATION RATE >=60 max estimate CREATININE 0.90 TOTAL PROTEIN 6.8 ALBUMIN 4.5 CALCIUM 9.0 BILIRUBIN TOTAL 0.5 SGOT/AST 28 SGPT/ALT 24 ALKALINE PHOSPHATASE 71.0 CBC W/AUTO DIFF (06/10/23 05:04) WHITE BLOOD CELL 8.2 RED BLOOD CELL 4.70 HEMOGLOBIN 15.4 HEMATOCRIT 45.9 MEAN CELL VOLUME 97.7 H MEAN CELL HGB 32.8 H MEAN CELL HGB CONCENTRATION 33.6 RED CELL DISTRIBUTION WIDTH 13.2 PLATELET COUNT 221 MEAN PLATELET VOLUME 9.7 NEUTROPHIL % 62.7 LYMPHOCYTE % 25.5 MONOCYTE % 9.3 EOSINOPHIL % 1.3 BASOPHIL % 0.7 NEUTROPHIL # 5.10 LYMPHOCYTE # 2.08 MONOCYTE # 0.76 EOSINOPHIL # 0.11 BASOPHIL # 0.06 -- ATTESTATION -- CARE ACTIVITIES / CARE COORDINATION: - I have reviewed the history and repeated the carias elements - I have seen and examined this patient - I have reviewed the progress in the clinical course since the last examination - I have discussed the patient's condition with other members of the care team ADDITIONAL DETAIL: Plan of care discussed with Dr. Kurtis Lynch Signed in PatientKeeper by CAMRON PATEL on 06/10/23 at 15:02 Cosigned by KURTIS LYNCH MD on 07/07/23 at 21:26 at 2126 at 6 ATTENTION *EDITS and/or ADDENDA must be made in Patient Keeper for this note. * * Edits and ammendments created in [employer] are not visible * * in Patient Keeper or the legal medical record ([facility]). * RPT #: [id number] END OF REPORT [facility] 2023-06-09 13:47:00 [facility] ([facility]) Hospitalist Progress Note REPORT #: [id number] REPORT STATUS: Signed DATE: 06/09/23 TIME: 1346 PATIENT: KOTA MONTES UNIT #: [id number] ROOM #: P.0414 BED: A : 61 AGE: 62 SEX: M ATTEND: Nnamdi Rachel MD ADM AUTHOR: Nnamdi Rachel MD ATTENTION *EDITS and/or ADDENDA must be made in Patient Keeper for this note. * * Edits and ammendments created in [employer] are not visible * * in Patient Keeper or the legal medical record ([facility]). * -- ASSESSMENT AND PLAN -- GENERAL ASSESSMENT: ASSESSMENT AND PLAN: 1. Recurrent chest pain, in a patient with a known history of severe multivessel coronary artery disease, status post multiple interventions. Serial cardiac enzymes are negative and myocardial infarction has been ruled out. I will continue aspirin, Brilinta, metoprolol and atorvastatin. selective coronary angiogram by Dr. Kurtis Lynch 05/30 revealing severe multivessel coronary artery disease, not amenable to further angioplasty. CABG advised, week of 06/09. 2. Abdominal distention and pain, rule out ileus/bowel obstruction. Abdominal x-ray non diagnostic. 3. Hypertension. Continue metoprolol. 4. Hyperlipidemia. Continue atorvastatin 40 mg daily. 5. Alcohol abuse. Delirium tremens prophylaxis. 6. Nicotine dependence, we will offer a Nicoderm patch. 7. Anxiety/depression, not otherwise specified. Continue escitalopram. 8. Severe hyponatremia. The patient has previously had similar hyponatremia and etiology is unclear. 9. Gross noncompliance with instructions and therapy ADDITIONAL COMMENTS: Downgraded from CVICU because of adamantly refusing interventions. selective coronary angiogram by Dr. Kurtis Lynch 05/30 revealing severe multivessel coronary artery disease, not amenable to further angioplasty. He was presented at the multidisciplinary conference 06/05, Consensus is surgical revascularization, week June [address] Rogerio Pike. -- SUBJECTIVE -- HPI: This 62-year-old gentleman has a past medical history significant for hypertension, hyperlipidemia, myocardial infarction in 2005, angioplasty with stent placement x2 to the RCA in 2005, complex high risk PCI with one stent placement to the RCA and PTCA to the left circumflex with atherectomy and intravenous lithotripsy in 06/2022, status post rotablation and two stents placed to the left circumflex by Dr. Kurtis Lynch on 12/24/2022. On 04/05/2023, he was at an outside emergency room with complaints of chest pain and shortness of breath, but left against medical advice prior to any intervention. He presented to the [facility] Emergency Room on 05/28/2023 with complaints of chest pain and shortness of breath that started earlier this morning, during inactivity. He also reported a cough for the past several days, but denied any fever or known sick contacts. Later after eating his lunch, he reported significant abdominal distention and bloating with abdominal pain. In the emergency room, troponin was negative and EKG showed sinus rhythm, left bundle branch block. He has been admitted for further management. PATIENT NARRATIVE: 05/28: The patient was initially moved down to CV IMU for cardiac management. He continued to have persistent pain despite being started on intravenous heparin infusion. He demanded Dilaudid earlier than the designated time. He was, as previously, disrespectful and rude to the staff. He was transition to CVICU for closer monitoring and initiation of nitroglycerin infusion. The patient refused nitroglycerin infusion, sublingual tablets. Today he also refused heparin infusion, refused blood draws for any reason. He repeatedly threatened to leave AGAINST MEDICAL ADVICE. He is being moved back to CV IMU status as he is not on nitroglycerin drip at this time, and he wants more freedom. He needs selective coronary angiogram, the earliest expected is 05/30. as per state fire marshal: Patient declining all interventions, wanting to leave AMA unless downgraded, chest pain unlikely cardiac, enzymes negative and EKG without concerning features. 05/29: Once again, the patient threatened to walk out AGAINST MEDICAL ADVICE multiple times today. Refused heparin infusion and was off it for about 12 hours. Towards evening he was agreeable and got back on heparin. Plan is for selective coronary angiogram and possible intervention tomorrow. 05/30: He underwent selective coronary angiogram by Dr. Kurtis Lynch 05/30 revealing severe multivessel coronary artery disease, not amenable to further angioplasty. CABG evaluation has been advised. As usual, the patient announced that he is going to leave after the rest period is over. He started ambulating even before the rest period was over. Noncompliance appears to be his response to everything. Apparently his son came by and was able to convince him to stay and get the treatment. It is unclear as to how long he will heed this advice. He now says that morphine is just like "water". He wants to go back to Dilaudid. I have switched him to intravenous Dilaudid 1 mg every 3 hours as needed for recurrent chest pain. 05/31: The patient remains remarkably consistent in his insulting attitude towards staff in general. Overnight he displayed racial discrimination against the nurse, and told her not to touch him. He got up and started walking before the resting time after the heart catheterization was over. FemoStop had to be applied to the groin to control the bleeding. Repeatedly announces that he is going to leave AGAINST MEDICAL ADVICE. A little later he says that okay he will stay for the evaluation. Physically transferred to CV IMU. Plan is for surgical/CABG evaluation. 06/01: He refused to be on heparin. Intermittent chest pain, taking Dilaudid [id number]. We are waiting for surgical recommendations as regards to CABG. 06/02: Intermittent chest pain, taking Dilaudid [id number]. Refuses to be on heparin. Refuses telemetry monitoring. Seen by Dr. Rogerio Pike. CABG has been advised, scheduled for June 06, 2023. The procedure was explained at length to the patient and his Loyd at bedside. 06/03: Intermittent chest pain, demands intravenous Dilaudid around the clock. Pharmacy, in their own wisdom, tried to cut it back to every 4 hours and the patient once again threatened to walk out AGAINST MEDICAL ADVICE. I have advised the pharmacy to please follow the instructions. Will consult pain management services. Also refuses Lidoderm patches because "they do not work". CABG is scheduled for June 06, 2023. 06/04: The patient could not go even 24 hours, without insulting and racially denigrating the staff. Seen by pain management services. Medication regimen optimized but the patient refused, once again, saying that "it does not work". He will be presented at the multidisciplinary conference 06/05, regarding the best option for coronary intervention. 06/05: The patient was discussed at the multidisciplinary conference June 05. Consensus is surgical intervention. Most likely week of June 09. His chest pain and demand for intravenous Dilaudid is way out of proportion to the objective findings. As per cardiothoracic surgery services, intravenous Dilaudid has been discontinued. The patient has been seen by pain management services and oral medications for pain will be allowed at this time. 06/06: continues to be very irritable, still berating the nurses. Off of intravenous narcotics. Chest pain is noncardiac, mostly from the back. Platelet response time is still 110 indicating P2Y12 receptor blockade. We will have to wait for washout prior to CABG. Continues to refuse intravenous heparin. 06/07: Irritable as usual. He researched something online and wants vitamin K and FFP to reverse "Plavix effect". Still not very willing to stay in the hospital, advised by the consultants as to the need for surgery. 06/08: Continues to refuse heparin. Continues to refuse safety monitoring, telemetry. Irritable. Repeatedly announces that he is going to leave AGAINST MEDICAL ADVICE, but has so far not carried out his intentions. Consultants have advised him that it is the safer that he stay in the hospital until he gets his CABG. plavix effect to be rechecked 06/09. -REVIEW OF SYSTEMS- GENERAL: CONSTITUTIONAL: No fever or chills. No weight gain or weight loss. HEENT: Some congestion and cough for the past few days. CARDIOPULMONARY: Shortness of breath and acute chest pain starting earlier in the day. GASTROINTESTINAL: Abdominal distention and pain and bloating starting on the day of admission. Nausea. No vomiting. No constipation, but loose stools. GENITOURINARY: Denies any dysuria or discharge. NEUROLOGICAL: Denies any headache, dizziness or syncope. -- OBJECTIVE -- VITALS (06/07 13:47 - 06/08 13:47): Temperature C: 36.9 (36.6 - 37.1) Temperature source: Oral Pulse Rate 65 (57 - 73) Respiratory rate: 20 (17 - 22) Blood pressure: 119/75 (119/75 - 146/86) I/Os (06/07 07:00 - 06/08 07:00): Net 100 Intake 350 Output 250 -EXAM- GENERAL: GENERAL: Not in any distress VITAL SIGNS: oxygen saturation 96% on room air. Weight is 84 kilograms. Body mass index 29. HEENT: Head is atraumatic. Pupils are reactive to light and accommodation. Extraocular muscles intact. NECK: Supple. No thyromegaly. No JVD. CARDIOVASCULAR: S1, S2 audible. LUNGS: Clear to auscultation. ABDOMEN: Distended, bowel sounds audible. Minimal tenderness. MUSCULOSKELETAL: No joint tenderness. EXTREMITIES: No edema, cyanosis or clubbing. Pedal pulses palpable. NEUROLOGIC: No focal deficit. irritable. -- DATA -- MEDICATIONS LIDOCAINE 1 PATCH TRANSDERM DAILY SODIUM CHLORIDE 0.9% 1000 ML IV .Q24H ASPIRIN 81 MG PO DAILY THIAMINE HCL 100 MG PO DAILY MAG HYDROX/AL HYDROX/SIMETH 30 ML PO Q4H PRN cloNIDine HCL 0.1 MG PO Q8H PRN DOCUSATE SODIUM 100 MG PO BID HEPARIN SODIUM,PORCINE 5000 UNIT IV ASDIR PRN ATORVASTATIN CALCIUM 80 MG PO BEDTIME traZODone HCL 100 MG PO BEDTIME METOPROLOL TARTRATE 5 MG IV Q6H PRN METOPROLOL TARTRATE 50 MG PO BID ONDANSETRON 4 MG PO Q6H PRN HEPARIN PHARMACY TO MONITOR 1 EACH IV ASDIR PREGABALIN 50 MG PO BID hydrALAZINE HCL 5 MG IV Q6HR PRN ACETAMINOPHEN 650 MG PO Q4H PRN FOLIC ACID 1 MG PO DAILY ONDANSETRON HCL/PF 4 MG IV Q6H PRN methocarbamoL 750 MG PO TID HEPARIN/SOD CHLOR 0.45% 29374 UNITS IV TITRATE NITROGLYCERIN 0.4 MG SL Q5M PRN HEPARIN SODIUM,PORCINE 3000 UNIT IV ASDIR PRN ESCITALOPRAM 20 MG PO DAILY -- QUALITY -- -MEDICATIONS- - I attest that the foregoing medication list in the medical record is true, accurate, and complete to the best of my knowledge. -- ATTESTATION -- CARE ACTIVITIES / CARE COORDINATION: - I have reviewed the history and repeated the carias elements - I have seen and examined this patient - I have reviewed the progress in the clinical course since the last examination - I have discussed the patient's condition with other members of the care team Signed in PatientKeeper by Nnamdi Rachel MD on 06/09/23 at 18:35 at 1835 ATTENTION *EDITS and/or ADDENDA must be made in Patient Keeper for this note. * * Edits and ammendments created in [employer] are not visible * * in Patient Keeper or the legal medical record ([facility]). * RPT #: [id number] END OF REPORT [facility] 2023-06-09 09:53:00 [facility] ([facility]) Cardiology Progress Notes REPORT #: [id number] REPORT STATUS: Signed DATE: 06/09/23 TIME: 952 PATIENT: KOTA MONTES UNIT #: [id number] ROOM #: P.0405 BED: A : 62 AGE: 62 SEX: M ATTEND: Keenan Kumari MD ADM AUTHOR: Cruz Garnica NP ATTENTION *EDITS and/or ADDENDA must be made in Patient Keeper for this note. * * Edits and ammendments created in [facility] are not visible * * in Patient Keeper or the legal medical record ([facility]). * -- CO-SIGNATURE -- COMMENTS: I have personally seen and examined the patient independently, and reviewed the patient's history, exam, and all cardiac and laboratory data on 06/09/2023. I agree with the history, physical, and the assessment and plan as outlined by Cruz Jean NP. Mr. Montes Is waiting for his surgery.Our CT surgery colleagues are evaluating him For consideration for CABG.Will continue to medically optimize him in the meantime. Signed in PatientKeeper by MALACHI FITZGERALD MD on 06/21/23 at 12:10 -- ASSESSMENT AND PLAN -- PROBLEMS: 1: Coronary artery disease/chest pain A/P: The patient is a 62-year-old gentleman with complex coronary artery disease and multiple PCI's in the past, h/o NM in 2005, h/o EtOH and nicotine abuse, hypertension, and hyperlipidemia. He was admitted on 05/28/2023 with worsening shortness of breath and chest discomfort. He underwent coronary angiogram on 05/31/2023 with noted severe multivessel disease that was not amenable to any further percutaneous revascularization. He was recommended for CABG and the patient has been evaluated by Dr. Pike from CV surgery. He was on Brilinta so awaiting Brilinta washout to proceed with surgery. - Plavix effect platelet is up to 111 on 06/06, started out at 8. Plan is to recheck on Friday 06/09 - ordered. - Off narcotics for pain meds. We wanted him off everything prior to surgery. Pain management following. - Continue atorvastatin. - On beta miguelangel, metoprolol tartrate 50mg BID. - Patient is still not really wanting to stay in the hospital but we advised him that is the safest thing for him to do until he can undergo his surgery. He has so far agreed. - Refusing IV Heparin. -- SUBJECTIVE -- CHIEF COMPLAINT: Chest pain PATIENT NARRATIVE: No acute issues overnight. -REVIEW OF SYSTEMS- COMMENT: General: Negative for fever, malaise, fatigue. Eyes: Negative for blurry vision. No diplopia. + itchy and watery Respiratory: Negative for dyspnea, negative wheeze. No cough. Cardiovascular: + chest pain with exertion, no palpitations. No extremity swelling. Gastrointestinal Negative for abdominal pain or nausea. No emesis. No diarrhea. Genitourinary: Negative for dysuria, frequency, or urgency. No gross hematuria. Musculoskeletal: Negative for joint stiffness, pain, or arthralgias. Skin: Negative for rashes. No pruritus. Neurological: Negative for headache. No vertigo. Denies paresthesias. Psychiatric: Negative for specific complaints. -- OBJECTIVE -- VITALS (06/07 12:53 - 06/08 12:53): Temperature C: 36.9 (36.6 - 37.1) Temperature source: Oral Pulse Rate 65 (57 - 73) Respiratory rate: 20 (17 - 22) Blood pressure: 119/75 (119/75 - 146/86) I/Os (06/07 07:00 - 06/08 07:00): Net 100 Intake 350 Output 250 -EXAM- OTHER: Constitutional: Well developed, well nourished patient, in no acute distress. Derm/Integumentary: Warm and dry with no rashes, sores, or lesions. Mouth: Mucosa moist and pink with no lesions. Neck: supple with no masses, no thryomegaly, No JVD. Respiratory: Clear to auscultation. Heart: S1S2+, Regular Rate and Rhythm, No murmurs, rubs, or gallops. Gastrointestinal: + Bowel Sounds all quadrants. Soft, nontender with no masses or organomegaly. Musculoskeletal: Equal strength in all extremities. No weakness. Neurology: Alert and oriented X 3. Calm, cooperative affect. No focal deficits. Extremities: + peripheral pulses. No clubbing, cyanosis. No lower extremity edema. -- DATA -- MEDICATIONS LIDOCAINE 1 PATCH TRANSDERM DAILY SODIUM CHLORIDE 0.9% 1000 ML IV .Q24H ASPIRIN 81 MG PO DAILY THIAMINE HCL 100 MG PO DAILY MAG HYDROX/AL HYDROX/SIMETH 30 ML PO Q4H PRN cloNIDine HCL 0.1 MG PO Q8H PRN DOCUSATE SODIUM 100 MG PO BID HEPARIN SODIUM,PORCINE 5000 UNIT IV ASDIR PRN ATORVASTATIN CALCIUM 80 MG PO BEDTIME traZODone HCL 100 MG PO BEDTIME METOPROLOL TARTRATE 5 MG IV Q6H PRN METOPROLOL TARTRATE 50 MG PO BID ONDANSETRON 4 MG PO Q6H PRN HEPARIN PHARMACY TO MONITOR 1 EACH IV ASDIR PREGABALIN 50 MG PO BID hydrALAZINE HCL 5 MG IV Q6HR PRN ACETAMINOPHEN 650 MG PO Q4H PRN FOLIC ACID 1 MG PO DAILY ONDANSETRON HCL/PF 4 MG IV Q6H PRN methocarbamoL 750 MG PO TID HEPARIN/SOD CHLOR 0.45% 52982 UNITS IV TITRATE NITROGLYCERIN 0.4 MG SL Q5M PRN HEPARIN SODIUM,PORCINE 3000 UNIT IV ASDIR PRN ESCITALOPRAM 20 MG PO DAILY -- ATTESTATION -- CARE ACTIVITIES / CARE COORDINATION: - I have reviewed the history and repeated the carias elements - I have seen and examined this patient - I have reviewed the progress in the clinical course since the last examination - I have discussed the patient's condition with other members of the care team Signed in PatientKeeper by Cruz Garnica NP on 06/09/23 at 12:58 Cosigned by MALACHI FITZGERALD MD on 06/21/23 at 12:10 at 1210 at 1210 ATTENTION *EDITS and/or ADDENDA must be made in Patient Keeper for this note. * * Edits and ammendments created in [employer] are not visible * * in Patient Keeper or the legal medical record ([facility]). * RPT #: [id number] END OF REPORT [facility] 2023-06-08 15:47:00 [facility] ([facility]) Hospitalist Progress Note REPORT #: [id number] REPORT STATUS: Signed DATE: 06/08/23 TIME: 1546 PATIENT: KOTA MONTES UNIT #: [id number] ROOM #: P.0414 BED: A : 62 AGE: 62 SEX: M ATTEND: Nnamdi Rachel MD ADM AUTHOR: Nnamdi Rachel MD ATTENTION *EDITS and/or ADDENDA must be made in Patient Keeper for this note. * * Edits and ammendments created in [employer] are not visible * * in Patient Keeper or the legal medical record ([facility]). * -- ASSESSMENT AND PLAN -- GENERAL ASSESSMENT: ASSESSMENT AND PLAN: 1. Recurrent chest pain, in a patient with a known history of severe multivessel coronary artery disease, status post multiple interventions. Serial cardiac enzymes are negative and myocardial infarction has been ruled out. I will continue aspirin, Brilinta, metoprolol and atorvastatin. selective coronary angiogram by Dr. Kurtis Lynch 05/30 revealing severe multivessel coronary artery disease, not amenable to further angioplasty. CABG advised, week of 06/09. 2. Abdominal distention and pain, rule out ileus/bowel obstruction. Abdominal x-ray non diagnostic. 3. Hypertension. Continue metoprolol. 4. Hyperlipidemia. Continue atorvastatin 40 mg daily. 5. Alcohol abuse. Delirium tremens prophylaxis. 6. Nicotine dependence, we will offer a Nicoderm patch. 7. Anxiety/depression, not otherwise specified. Continue escitalopram. 8. Severe hyponatremia. The patient has previously had similar hyponatremia and etiology is unclear. 9. Gross noncompliance with instructions and therapy ADDITIONAL COMMENTS: Downgraded from CVICU because of adamantly refusing interventions. selective coronary angiogram by Dr. Kurtis Lynch 05/30 revealing severe multivessel coronary artery disease, not amenable to further angioplasty. He was presented at the multidisciplinary conference 06/05, Consensus is surgical revascularization, week June [address] Rogerio Pike. -- SUBJECTIVE -- HPI: This 62-year-old gentleman has a past medical history significant for hypertension, hyperlipidemia, myocardial infarction in 2005, angioplasty with stent placement x2 to the RCA in 2005, complex high risk PCI with one stent placement to the RCA and PTCA to the left circumflex with atherectomy and intravenous lithotripsy in 06/2022, status post rotablation and two stents placed to the left circumflex by Dr. Kurtis Lynch on 12/24/2022. On 04/05/2023, he was at an outside emergency room with complaints of chest pain and shortness of breath, but left against medical advice prior to any intervention. He presented to the [facility] Emergency Room on 05/28/2023 with complaints of chest pain and shortness of breath that started earlier this morning, during inactivity. He also reported a cough for the past several days, but denied any fever or known sick contacts. Later after eating his lunch, he reported significant abdominal distention and bloating with abdominal pain. In the emergency room, troponin was negative and EKG showed sinus rhythm, left bundle branch block. He has been admitted for further management. PATIENT NARRATIVE: 05/28: The patient was initially moved down to CV IMU for cardiac management. He continued to have persistent pain despite being started on intravenous heparin infusion. He demanded Dilaudid earlier than the designated time. He was, as previously, disrespectful and rude to the staff. He was transition to CVICU for closer monitoring and initiation of nitroglycerin infusion. The patient refused nitroglycerin infusion, sublingual tablets. Today he also refused heparin infusion, refused blood draws for any reason. He repeatedly threatened to leave AGAINST MEDICAL ADVICE. He is being moved back to CV IMU status as he is not on nitroglycerin drip at this time, and he wants more freedom. He needs selective coronary angiogram, the earliest expected is 05/30. as per state fire marshal: Patient declining all interventions, wanting to leave AMA unless downgraded, chest pain unlikely cardiac, enzymes negative and EKG without concerning features. 05/29: Once again, the patient threatened to walk out AGAINST MEDICAL ADVICE multiple times today. Refused heparin infusion and was off it for about 12 hours. Towards evening he was agreeable and got back on heparin. Plan is for selective coronary angiogram and possible intervention tomorrow. 05/30: He underwent selective coronary angiogram by Dr. Kurtis Lynch 05/30 revealing severe multivessel coronary artery disease, not amenable to further angioplasty. CABG evaluation has been advised. As usual, the patient announced that he is going to leave after the rest period is over. He started ambulating even before the rest period was over. Noncompliance appears to be his response to everything. Apparently his son came by and was able to convince him to stay and get the treatment. It is unclear as to how long he will heed this advice. He now says that morphine is just like "water". He wants to go back to Dilaudid. I have switched him to intravenous Dilaudid 1 mg every 3 hours as needed for recurrent chest pain. 05/31: The patient remains remarkably consistent in his insulting attitude towards staff in general. Overnight he displayed racial discrimination against the nurse, and told her not to touch him. He got up and started walking before the resting time after the heart catheterization was over. FemoStop had to be applied to the groin to control the bleeding. Repeatedly announces that he is going to leave AGAINST MEDICAL ADVICE. A little later he says that okay he will stay for the evaluation. Physically transferred to CV IMU. Plan is for surgical/CABG evaluation. 06/01: He refused to be on heparin. Intermittent chest pain, taking Dilaudid [id number]. We are waiting for surgical recommendations as regards to CABG. 06/02: Intermittent chest pain, taking Dilaudid [id number]. Refuses to be on heparin. Refuses telemetry monitoring. Seen by Dr. Rogerio Pike. CABG has been advised, scheduled for June 06, 2023. The procedure was explained at length to the patient and his Loyd at bedside. 06/03: Intermittent chest pain, demands intravenous Dilaudid around the clock. Pharmacy, in their own wisdom, tried to cut it back to every 4 hours and the patient once again threatened to walk out AGAINST MEDICAL ADVICE. I have advised the pharmacy to please follow the instructions. Will consult pain management services. Also refuses Lidoderm patches because "they do not work". CABG is scheduled for June 06, 2023. 06/04: The patient could not go even 24 hours, without insulting and racially denigrating the staff. Seen by pain management services. Medication regimen optimized but the patient refused, once again, saying that "it does not work". He will be presented at the multidisciplinary conference 06/05, regarding the best option for coronary intervention. 06/05: The patient was discussed at the multidisciplinary conference June 05. Consensus is surgical intervention. Most likely week of June 09. His chest pain and demand for intravenous Dilaudid is way out of proportion to the objective findings. As per cardiothoracic surgery services, intravenous Dilaudid has been discontinued. The patient has been seen by pain management services and oral medications for pain will be allowed at this time. 06/06: continues to be very irritable, still berating the nurses. Off of intravenous narcotics. Chest pain is noncardiac, mostly from the back. Platelet response time is still 110 indicating P2Y12 receptor blockade. We will have to wait for washout prior to CABG. Continues to refuse intravenous heparin. 06/07: Irritable as usual. He researched something online and wants vitamin K and FFP to reverse "Plavix effect". Still not very willing to stay in the hospital, advised by the consultants as to the need for surgery. -REVIEW OF SYSTEMS- GENERAL: CONSTITUTIONAL: No fever or chills. No weight gain or weight loss. HEENT: Some congestion and cough for the past few days. CARDIOPULMONARY: Shortness of breath and acute chest pain starting earlier in the day. GASTROINTESTINAL: Abdominal distention and pain and bloating starting on the day of admission. Nausea. No vomiting. No constipation, but loose stools. GENITOURINARY: Denies any dysuria or discharge. NEUROLOGICAL: Denies any headache, dizziness or syncope. -- OBJECTIVE -- VITALS (06/06 15:47 - 06/07 15:47): Temperature C: 36.6 (36.4 - 36.8) Temperature source: Oral Pulse Rate 63 (59 - 79) Respiratory rate: 19 (17 - 21) Blood pressure: 151/91 (119/77 - 151/91) I/Os (06/06 07:00 - 06/07 07:00): Net 510 Intake 910 Output 400 -EXAM- GENERAL: GENERAL: Not in any distress VITAL SIGNS: oxygen saturation 96% on room air. Weight is 84 kilograms. Body mass index 29. HEENT: Head is atraumatic. Pupils are reactive to light and accommodation. Extraocular muscles intact. NECK: Supple. No thyromegaly. No JVD. CARDIOVASCULAR: S1, S2 audible. LUNGS: Clear to auscultation. ABDOMEN: Distended, bowel sounds audible. Minimal tenderness. MUSCULOSKELETAL: No joint tenderness. EXTREMITIES: No edema, cyanosis or clubbing. Pedal pulses palpable. NEUROLOGIC: No focal deficit. irritable. -- DATA -- MEDICATIONS LIDOCAINE 1 PATCH TRANSDERM DAILY SODIUM CHLORIDE 0.9% 1000 ML IV .Q24H MAG HYDROX/AL HYDROX/SIMETH 30 ML PO Q4H PRN cloNIDine HCL 0.1 MG PO Q8H PRN DOCUSATE SODIUM 100 MG PO BID ATORVASTATIN CALCIUM 80 MG PO BEDTIME METOPROLOL TARTRATE 50 MG PO BID ONDANSETRON 4 MG PO Q6H PRN hydrALAZINE HCL 5 MG IV Q6HR PRN ACETAMINOPHEN 650 MG PO Q4H PRN FOLIC ACID 1 MG PO DAILY ONDANSETRON HCL/PF 4 MG IV Q6H PRN methocarbamoL 750 MG PO TID HEPARIN/SOD CHLOR 0.45% 79212 UNITS IV TITRATE ASPIRIN 81 MG PO DAILY THIAMINE HCL 100 MG PO DAILY HEPARIN SODIUM,PORCINE 5000 UNIT IV ASDIR PRN traZODone HCL 100 MG PO BEDTIME METOPROLOL TARTRATE 5 MG IV Q6H PRN HEPARIN PHARMACY TO MONITOR 1 EACH IV ASDIR PREGABALIN 50 MG PO BID NITROGLYCERIN 0.4 MG SL Q5M PRN HEPARIN SODIUM,PORCINE 3000 UNIT IV ASDIR PRN ESCITALOPRAM 20 MG PO DAILY -- QUALITY -- -MEDICATIONS- - I attest that the foregoing medication list in the medical record is true, accurate, and complete to the best of my knowledge. -- ATTESTATION -- CARE ACTIVITIES / CARE COORDINATION: - I have reviewed the history and repeated the carias elements - I have seen and examined this patient - I have reviewed the progress in the clinical course since the last examination - I have discussed the patient's condition with other members of the care team Signed in PatientKeeper by Nnamdi Rachel MD on 06/08/23 at 15:49 at 1549 ATTENTION *EDITS and/or ADDENDA must be made in Patient Keeper for this note. * * Edits and ammendments created in [employer] are not visible * * in Patient Keeper or the legal medical record ([facility]). * RPT #: [id number] END OF REPORT [facility] 2023-06-08 09:21:00 [facility] ([facility]) Cardiology Progress Notes REPORT #: [id number] REPORT STATUS: Signed DATE: 06/08/23 TIME: 920 PATIENT: KOTA MONTES UNIT #: [id number] ROOM #: P.[id number] BED: A : 62 AGE: 62 SEX: M ATTEND: Keenan Kumari MD ADM AUTHOR: Cruz Garnica NP ATTENTION *EDITS and/or ADDENDA must be made in Patient Keeper for this note. * * Edits and ammendments created in [employer] are not visible * * in Patient Keeper or the legal medical record ([facility]). * -- CO-SIGNATURE -- COMMENTS: I have personally seen and examined the patient independently, and reviewed the patient's history, exam, and all cardiac and laboratory data on 06/08/23. I agree with the history, physical, and the assessment and plan as outlined by Cruz Jean NP. Mr. Montes Is a 62-year-old maleWith history of multiple complex PCI's in the past,Hypertension, hyperlipidemia. We have consulted our surgical colleague Dr. Rogerio Pike For consideration for CABG. In the meantime, we will continue to optimize his medical regimen. Signed in PatientKeeper by MALACHI FITZGERALD MD on 06/21/23 at 12:08 -- ASSESSMENT AND PLAN -- PROBLEMS: 1: Coronary artery disease/chest pain A/P: The patient is a 62-year-old gentleman with complex coronary artery disease and multiple PCI's in the past, h/o NM in 2005, h/o EtOH and nicotine abuse, hypertension, and hyperlipidemia. He was admitted on 05/28/2023 with worsening shortness of breath and chest discomfort. He underwent coronary angiogram on 05/31/2023 with noted severe multivessel disease that was not amenable to any further percutaneous revascularization. He was recommended for CABG and the patient has been evaluated by Dr. Pike from CV surgery. - Plavix effect platelet is up to 111, started out at 8. Plan is to recheck on Saturday. - Patient was also taking multiple doses of Dilaudid for pain. CV Surgery wanted him off narcotic and so his pain is being managed now with non-narcotics and pain management is following. - Continue atorvastatin. - On beta miguelangel, metoprolol tartrate 50mg BID. - Patient is still not really wanting to stay in the hospital but we advised him that is the safest thing for him to do until he can undergo his surgery. - Refusing IV Heparin. -- SUBJECTIVE -- CHIEF COMPLAINT: Chest pain PATIENT NARRATIVE: Complaining of his eyes bothering him. Wants to go home. -REVIEW OF SYSTEMS- COMMENT: General: Negative for fever, malaise, fatigue. Eyes: Negative for blurry vision. No diplopia. + itchy and watery Respiratory: Negative for dyspnea, negative wheeze. No cough. Cardiovascular: + chest pain with exertion, no palpitations. No extremity swelling. Gastrointestinal Negative for abdominal pain or nausea. No emesis. No diarrhea. Genitourinary: Negative for dysuria, frequency, or urgency. No gross hematuria. Musculoskeletal: Negative for joint stiffness, pain, or arthralgias. Skin: Negative for rashes. No pruritus. Neurological: Negative for headache. No vertigo. Denies paresthesias. Psychiatric: Negative for specific complaints. -- OBJECTIVE -- VITALS (06/06 13:21 - 06/07 13:21): Temperature C: 36.6 (36.4 - 36.8) Temperature source: Oral Pulse Rate 63 (59 - 79) Respiratory rate: 19 (17 - 21) Blood pressure: 151/91 (119/77 - 151/91) I/Os (06/06 07:00 - 06/07 07:00): Net 510 Intake 910 Output 400 -EXAM- OTHER: Constitutional: Well developed, well nourished patient, in no acute distress. Derm/Integumentary: Warm and dry with no rashes, sores, or lesions. Mouth: Mucosa moist and pink with no lesions. Neck: supple with no masses, no thryomegaly, No JVD. Respiratory: Clear to auscultation. Heart: S1S2+, Regular Rate and Rhythm, No murmurs, rubs, or gallops. Gastrointestinal: + Bowel Sounds all quadrants. Soft, nontender with no masses or organomegaly. Musculoskeletal: Equal strength in all extremities. No weakness. Neurology: Alert and oriented X 3. Calm, cooperative affect. No focal deficits. Extremities: + peripheral pulses. No clubbing, cyanosis. No lower extremity edema. -- DATA -- MEDICATIONS LIDOCAINE 1 PATCH TRANSDERM DAILY SODIUM CHLORIDE 0.9% 1000 ML IV .Q24H MAG HYDROX/AL HYDROX/SIMETH 30 ML PO Q4H PRN cloNIDine HCL 0.1 MG PO Q8H PRN DOCUSATE SODIUM 100 MG PO BID ATORVASTATIN CALCIUM 80 MG PO BEDTIME METOPROLOL TARTRATE 50 MG PO BID ONDANSETRON 4 MG PO Q6H PRN hydrALAZINE HCL 5 MG IV Q6HR PRN ACETAMINOPHEN 650 MG PO Q4H PRN FOLIC ACID 1 MG PO DAILY ONDANSETRON HCL/PF 4 MG IV Q6H PRN methocarbamoL 750 MG PO TID HEPARIN/SOD CHLOR 0.45% 92662 UNITS IV TITRATE ASPIRIN 81 MG PO DAILY THIAMINE HCL 100 MG PO DAILY HEPARIN SODIUM,PORCINE 5000 UNIT IV ASDIR PRN traZODone HCL 100 MG PO BEDTIME METOPROLOL TARTRATE 5 MG IV Q6H PRN HEPARIN PHARMACY TO MONITOR 1 EACH IV ASDIR PREGABALIN 50 MG PO BID NITROGLYCERIN 0.4 MG SL Q5M PRN HEPARIN SODIUM,PORCINE 3000 UNIT IV ASDIR PRN ESCITALOPRAM 20 MG PO DAILY -- ATTESTATION -- CARE ACTIVITIES / CARE COORDINATION: - I have reviewed the history and repeated the carias elements - I have seen and examined this patient - I have reviewed the progress in the clinical course since the last examination - I have discussed the patient's condition with other members of the care team Signed in PatientKeeper by Cruz Garnica NP on 06/08/23 at 13:30 Cosigned by MALACHI FITZGERALD MD on 06/21/23 at 12:08 at 1208 at 1208 ATTENTION *EDITS and/or ADDENDA must be made in Patient Keeper for this note. * * Edits and ammendments created in [facility] are not visible * * in Patient Keeper or the legal medical record ([facility]). * RPT #: [id number] END OF REPORT [facility] 2023-06-07 17:01:00 [facility] ([facility]) Hospitalist Progress Note REPORT #: [id number] REPORT STATUS: Signed DATE: 06/07/23 TIME: 1700 PATIENT: KOTA MONTES UNIT #: [id number] ROOM #: P[facility] BED: A : 61 AGE: 62 SEX: M ATTEND: Nnamdi Rachel MD ADM AUTHOR: Nnamdi Rachel MD ATTENTION *EDITS and/or ADDENDA must be made in Patient Keeper for this note. * * Edits and ammendments created in [employer] are not visible * * in Patient Keeper or the legal medical record ([facility]). * -- ASSESSMENT AND PLAN -- GENERAL ASSESSMENT: ASSESSMENT AND PLAN: 1. Recurrent chest pain, in a patient with a known history of severe multivessel coronary artery disease, status post multiple interventions. Serial cardiac enzymes are negative and myocardial infarction has been ruled out. I will continue aspirin, Brilinta, metoprolol and atorvastatin. selective coronary angiogram by Dr. Kurtis Lynch 05/30 revealing severe multivessel coronary artery disease, not amenable to further angioplasty. CABG advised, week of 06/09. 2. Abdominal distention and pain, rule out ileus/bowel obstruction. Abdominal x-ray non diagnostic. 3. Hypertension. Continue metoprolol. 4. Hyperlipidemia. Continue atorvastatin 40 mg daily. 5. Alcohol abuse. Delirium tremens prophylaxis. 6. Nicotine dependence, we will offer a Nicoderm patch. 7. Anxiety/depression, not otherwise specified. Continue escitalopram. 8. Severe hyponatremia. The patient has previously had similar hyponatremia and etiology is unclear. 9. Gross noncompliance with instructions and therapy ADDITIONAL COMMENTS: Downgraded from CVICU because of adamantly refusing interventions. selective coronary angiogram by Dr. Kurtis Lynch 05/30 revealing severe multivessel coronary artery disease, not amenable to further angioplasty. He was presented at the multidisciplinary conference 06/05, Consensus is surgical revascularization, June [address] Rogerio Pike. -- SUBJECTIVE -- HPI: This 62-year-old gentleman has a past medical history significant for hypertension, hyperlipidemia, myocardial infarction in 2005, angioplasty with stent placement x2 to the RCA in 2005, complex high risk PCI with one stent placement to the RCA and PTCA to the left circumflex with atherectomy and intravenous lithotripsy in 06/2022, status post rotablation and two stents placed to the left circumflex by Dr. Kurtis Lynch on 12/24/2022. On 04/05/2023, he was at an outside emergency room with complaints of chest pain and shortness of breath, but left against medical advice prior to any intervention. He presented to the [facility] Emergency Room on 05/28/2023 with complaints of chest pain and shortness of breath that started earlier this morning, during inactivity. He also reported a cough for the past several days, but denied any fever or known sick contacts. Later after eating his lunch, he reported significant abdominal distention and bloating with abdominal pain. In the emergency room, troponin was negative and EKG showed sinus rhythm, left bundle branch block. He has been admitted for further management. PATIENT NARRATIVE: 05/28: The patient was initially moved down to CV IMU for cardiac management. He continued to have persistent pain despite being started on intravenous heparin infusion. He demanded Dilaudid earlier than the designated time. He was, as previously, disrespectful and rude to the staff. He was transition to CVICU for closer monitoring and initiation of nitroglycerin infusion. The patient refused nitroglycerin infusion, sublingual tablets. Today he also refused heparin infusion, refused blood draws for any reason. He repeatedly threatened to leave AGAINST MEDICAL ADVICE. He is being moved back to CV IMU status as he is not on nitroglycerin drip at this time, and he wants more freedom. He needs selective coronary angiogram, the earliest expected is 05/30. as per state fire marshal: Patient declining all interventions, wanting to leave AMA unless downgraded, chest pain unlikely cardiac, enzymes negative and EKG without concerning features. 05/29: Once again, the patient threatened to walk out AGAINST MEDICAL ADVICE multiple times today. Refused heparin infusion and was off it for about 12 hours. Towards evening he was agreeable and got back on heparin. Plan is for selective coronary angiogram and possible intervention tomorrow. 05/30: He underwent selective coronary angiogram by Dr. Kurtis Lynch 05/30 revealing severe multivessel coronary artery disease, not amenable to further angioplasty. CABG evaluation has been advised. As usual, the patient announced that he is going to leave after the rest period is over. He started ambulating even before the rest period was over. Noncompliance appears to be his response to everything. Apparently his son came by and was able to convince him to stay and get the treatment. It is unclear as to how long he will heed this advice. He now says that morphine is just like "water". He wants to go back to Dilaudid. I have switched him to intravenous Dilaudid 1 mg every 3 hours as needed for recurrent chest pain. 05/31: The patient remains remarkably consistent in his insulting attitude towards staff in general. Overnight he displayed racial discrimination against the nurse, and told her not to touch him. He got up and started walking before the resting time after the heart catheterization was over. FemoStop had to be applied to the groin to control the bleeding. Repeatedly announces that he is going to leave AGAINST MEDICAL ADVICE. A little later he says that okay he will stay for the evaluation. Physically transferred to CV IMU. Plan is for surgical/CABG evaluation. 06/01: He refused to be on heparin. Intermittent chest pain, taking Dilaudid [id number]. We are waiting for surgical recommendations as regards to CABG. 06/02: Intermittent chest pain, taking Dilaudid [id number]. Refuses to be on heparin. Refuses telemetry monitoring. Seen by Dr. Rogerio Pike. CABG has been advised, scheduled for June 06, 2023. The procedure was explained at length to the patient and his Loyd at bedside. 06/03: Intermittent chest pain, demands intravenous Dilaudid around the clock. Pharmacy, in their own wisdom, tried to cut it back to every 4 hours and the patient once again threatened to walk out AGAINST MEDICAL ADVICE. I have advised the pharmacy to please follow the instructions. Will consult pain management services. Also refuses Lidoderm patches because "they do not work". CABG is scheduled for June 06, 2023. 06/04: The patient could not go even 24 hours, without insulting and racially denigrating the staff. Seen by pain management services. Medication regimen optimized but the patient refused, once again, saying that "it does not work". He will be presented at the multidisciplinary conference 06/05, regarding the best option for coronary intervention. 06/05: The patient was discussed at the multidisciplinary conference June 05. Consensus is surgical intervention. Most likely week of June 09. His chest pain and demand for intravenous Dilaudid is way out of proportion to the objective findings. As per cardiothoracic surgery services, intravenous Dilaudid has been discontinued. The patient has been seen by pain management services and oral medications for pain will be allowed at this time. 06/06: continues to be very irritable, still berating the nurses. Off of intravenous narcotics. Chest pain is noncardiac, mostly from the back. Platelet response time is still 110 indicating P2Y12 receptor blockade. We will have to wait for washout prior to CABG. Continues to refuse intravenous heparin. -REVIEW OF SYSTEMS- GENERAL: CONSTITUTIONAL: No fever or chills. No weight gain or weight loss. HEENT: Some congestion and cough for the past few days. CARDIOPULMONARY: Shortness of breath and acute chest pain starting earlier in the day. GASTROINTESTINAL: Abdominal distention and pain and bloating starting on the day of admission. Nausea. No vomiting. No constipation, but loose stools. GENITOURINARY: Denies any dysuria or discharge. NEUROLOGICAL: Denies any headache, dizziness or syncope. -- OBJECTIVE -- VITALS (06/05 22:51 - 06/06 22:51): Temperature C: 36.8 (36.7 - 36.9) Temperature source: Oral Pulse Rate 79 (70 - 79) Respiratory rate: 18 (17 - 18) Blood pressure: 151/83 (102/64 - 151/83) Blood pressure source: Monitor I/Os (06/05 07:00 - 06/06 07:00): Net 670 Intake 870 Output 200 -EXAM- GENERAL: GENERAL: Not in any distress VITAL SIGNS: oxygen saturation 96% on room air. Weight is 84 kilograms. Body mass index 29. HEENT: Head is atraumatic. Pupils are reactive to light and accommodation. Extraocular muscles intact. NECK: Supple. No thyromegaly. No JVD. CARDIOVASCULAR: S1, S2 audible. LUNGS: Clear to auscultation. ABDOMEN: Distended, bowel sounds audible. Minimal tenderness. MUSCULOSKELETAL: No joint tenderness. EXTREMITIES: No edema, cyanosis or clubbing. Pedal pulses palpable. NEUROLOGIC: No focal deficit. irritable. -- DATA -- MEDICATIONS LIDOCAINE 1 PATCH TRANSDERM DAILY SODIUM CHLORIDE 0.9% 1000 ML IV .Q24H MAG HYDROX/AL HYDROX/SIMETH 30 ML PO Q4H PRN cloNIDine HCL 0.1 MG PO Q8H PRN DOCUSATE SODIUM 100 MG PO BID ATORVASTATIN CALCIUM 80 MG PO BEDTIME METOPROLOL TARTRATE 50 MG PO BID ONDANSETRON 4 MG PO Q6H PRN hydrALAZINE HCL 5 MG IV Q6HR PRN ACETAMINOPHEN 650 MG PO Q4H PRN FOLIC ACID 1 MG PO DAILY ONDANSETRON HCL/PF 4 MG IV Q6H PRN methocarbamoL 750 MG PO TID HEPARIN/SOD CHLOR 0.45% 56310 UNITS IV TITRATE ASPIRIN 81 MG PO DAILY THIAMINE HCL 100 MG PO DAILY HEPARIN SODIUM,PORCINE 5000 UNIT IV ASDIR PRN traZODone HCL 100 MG PO BEDTIME METOPROLOL TARTRATE 5 MG IV Q6H PRN HEPARIN PHARMACY TO MONITOR 1 EACH IV ASDIR PREGABALIN 50 MG PO BID NITROGLYCERIN 0.4 MG SL Q5M PRN HEPARIN SODIUM,PORCINE 3000 UNIT IV ASDIR PRN ESCITALOPRAM 20 MG PO DAILY LABS PLT RESP PLAVIX (06/07/23 04:59) PLT RESPONSE TO PLAVIX 111 PLT RESP PLAVIX (06/07/23 04:59) PLT RESPONSE TO PLAVIX 111 -- QUALITY -- -MEDICATIONS- - I attest that the foregoing medication list in the medical record is true, accurate, and complete to the best of my knowledge. -- ATTESTATION -- CARE ACTIVITIES / CARE COORDINATION: - I have reviewed the history and repeated the carias elements - I have reviewed the progress in the clinical course since the last examination - I have discussed the patient's condition with other members of the care team Signed in PatientKeeper by Nnamdi Rachel MD on 06/07/23 at 22:58 at 2258 ATTENTION *EDITS and/or ADDENDA must be made in Patient Keeper for this note. * * Edits and ammendments created in [employer] are not visible * * in Patient Keeper or the legal medical record ([facility]). * RPT #: [id number] END OF REPORT [facility] 2023-06-07 13:32:00 [facility] ([facility]) Cardiothoracic Surg. Prog Note REPORT #: [id number] REPORT STATUS: Signed DATE: 06/07/23 TIME: 1332 PATIENT: KOTA MONTES UNIT #: [id number] ROOM #: [id number] BED: A : 61 AGE: 62 SEX: M ATTEND: Nnamdi Rachel MD ADM AUTHOR: Haritha Dow ATTENTION *EDITS and/or ADDENDA must be made in Patient Keeper for this note. * * Edits and ammendments created in [employer] are not visible * * in Patient Keeper or the legal medical record ([facility]). * -- ASSESSMENT AND PLAN -- GENERAL ASSESSMENT: Patient is a 62 year-old with severe multi-vessel coronary artery disease with multiple prior PCIs who was admitted with chest pain. Consensus from multi-disciplinary case conference that patient would benefit optimally from revascularization with bypass surgery. There is concern with heavy narcotic use since hospitalization that could complicate his postoperative recovery. Patient has elected to proceed with CABG after Brilinta washout and agreed to discontinue narcotic use in the interim. Awaiting Brilinta washout before setting surgery date. No events overnight. Blood pressure and heart rate well-controlled. Not currently experiencing chest pain. Has been refusing heparin drip or nitroglycerin. Day #2 off narcotics. Patient's pain largely in back and legs 2/2 to hospital bed, but appears to be comfortable resting in bed during visit. Platelet response test today improved, but still with evidence of P2Y12 receptor blockade (111 from 8). Last dose Brilinta 05/30. Patient expressed frustration with hospitalization and interest in transferring to [place]. He was again educated on indication for hospitalization with multi-vessel coronary disease, indication for urgent CABG, and risks associated with leaving AMA. Patient has verbally agreed to stay for now and continue current management. Plan: - Recheck platelet response Saturday. - Continue aspirin, high-intensity statin and metoprolol - CABG next week pending Brilinta washout. - Cardiac diet. - Non-narcotic multi-modal pain regimen. - Ambulate TID. OOB in chair as much as possible. - Practice IS. PLAN DISCUSSED WITH: Dr. Pike and RN -- SUBJECTIVE -- PATIENT NARATIVE: No events overnight. Patient resting comfortably in bed. -- OBJECTIVE -- VITALS (06/05 13:32 - 06/06 13:32): Temperature C: 36.7 (36.5 - 36.9) Temperature source: Oral Pulse Rate 71 (70 - 75) Respiratory rate: 17 (17 - 20) Blood pressure: 117/77 (102/64 - 152/81) I/Os (06/05 07:00 - 06/06 07:00): Net 670 Intake 870 Output 200 -EXAM- GENERAL: Well developed, well nourished, in no apparent distress. HEAD: Normocephalic, atraumatic. NECK: No masses, no thyromegaly, no abnormal cervical nodes, trachea midline. CHEST: Grossly normal appearance. MUSCULOSKELETAL: No deformity, no scoliosis noted of thoracic or lumbar spine, joint ROM grossly normal, normal gait and station. EXTREMITIES: No clubbing, no cyanosis, no edema. SKIN: Intact without significant lesions, or rashes. PSYCHIATRIC: Alert and oriented to time, person, place. Normal mood and affect, intact judgment and insight. -- DATA -- MEDICATIONS LIDOCAINE 1 PATCH TRANSDERM DAILY SODIUM CHLORIDE 0.9% 1000 ML IV .Q24H MAG HYDROX/AL HYDROX/SIMETH 30 ML PO Q4H PRN cloNIDine HCL 0.1 MG PO Q8H PRN DOCUSATE SODIUM 100 MG PO BID ATORVASTATIN CALCIUM 80 MG PO BEDTIME METOPROLOL TARTRATE 50 MG PO BID ONDANSETRON 4 MG PO Q6H PRN hydrALAZINE HCL 5 MG IV Q6HR PRN ACETAMINOPHEN 650 MG PO Q4H PRN FOLIC ACID 1 MG PO DAILY ONDANSETRON HCL/PF 4 MG IV Q6H PRN methocarbamoL 750 MG PO TID HEPARIN/SOD CHLOR 0.45% 53127 UNITS IV TITRATE chlordiazePOXIDE HCl 25 MG PO BID ASPIRIN 81 MG PO DAILY THIAMINE HCL 100 MG PO DAILY HEPARIN SODIUM,PORCINE 5000 UNIT IV ASDIR PRN traZODone HCL 100 MG PO BEDTIME METOPROLOL TARTRATE 5 MG IV Q6H PRN HEPARIN PHARMACY TO MONITOR 1 EACH IV ASDIR PREGABALIN 50 MG PO BID NITROGLYCERIN 0.4 MG SL Q5M PRN HEPARIN SODIUM,PORCINE 3000 UNIT IV ASDIR PRN ESCITALOPRAM 20 MG PO DAILY LABS PLT RESP PLAVIX (06/07/23 04:59) PLT RESPONSE TO PLAVIX 111 PLT RESP PLAVIX (06/07/23 04:59) PLT RESPONSE TO PLAVIX 111 Signed in PatientKeeper by Haritha Dow on 06/07/23 at 14:54 Cosigned by ROGERIO PIKE MD on 06/11/23 at 16:32 at 1632 at 1632 ATTENTION *EDITS and/or ADDENDA must be made in Patient Keeper for this note. * * Edits and ammendments created in [employer] are not visible * * in Patient Keeper or the legal medical record ([facility]). * RPT #: [id number] END OF REPORT [facility] 2023-06-07 08:30:00 [facility] ([facility]) Cardiology Progress Notes REPORT #: [id number] REPORT STATUS: Signed DATE: 06/07/23 TIME: 829 PATIENT: KOTA MONTES UNIT #: [id number] ROOM #: [id number] BED: A : 62 AGE: 62 SEX: M ATTEND: Keenan Kumari MD ADM AUTHOR: Camron Patel ATTENTION *EDITS and/or ADDENDA must be made in Patient Keeper for this note. * * Edits and ammendments created in [employer] are not visible * * in Patient Keeper or the legal medical record ([facility]). * -- CO-SIGNATURE -- COMMENTS: The patient was seen on rounds with MIAH Monge. The patient has no complaints Examination demonstrates normal heart sounds and clear lung armijo. Impression and plan The patient is a 62-year-old gentleman with a history of coronary artery disease who underwent high risk PCI in December 2022. The patient came in from an outside emergency room with complaint of chest pain and shortness of breath. The patient comes in with unstable angina. The patient underwent cardiac catheterization on Saturday which demonstrated multivessel coronary artery disease. The patient will need cardiac surgery. We have consulted CV surgery and they are evaluating him for bypass. His dual antiplatelet therapy has been discontinued. The patient was evaluated in multidisciplinary conference, and he is being managed by pain management. He will likely have cardiac surgery next week. Signed in PatientKeeper by KURTIS LYNCH MD on 07/07/23 at 21:26 -- ASSESSMENT AND PLAN -- PROBLEMS: 1: Coronary artery disease/chest pain A/P: The patient is a 62-year-old gentleman (patient of Dr. Giordano) has a PMHx of coronary artery disease (s/p PCI 2005, 06/2022, 12/24/2022), h/o NM (2005), family history of coronary artery disease, h/o alcohol abuse, nicotine use, hypertension, hyperlipidemia. He underwent percutaneous coronary intervention with rotablation and placement of 2 stents in the LCx on 12/24/[address] Lynch and Dr. Malachi Fitzgerald (see op-note). He was discharged on stable condition on 12/25/22. He presented at an outside emergency room on 04/05/2023 with complaint of chest pain and shortness of breath, and he left against medical advise prior any intervention. He presented today (05/28/23) at [facility] with complaints of shortness of breath and left sided localized sharp chest pain that started earlier today. He reports the symptoms are similar when he had the previous percutaneous coronary interventions. He reports being complaint taking his medications, including DAPT. Workup showed negative troponin, BNP 78, Na 128. EKG shows normal sinus rhythm and left bundle branch block. Chest x-ray showed unremarkable frontal chest radiograph. He was admitted for further evaluation and management. On 05/28/23 night, he reported chest pain and was transferred to CVICU for closer observation. He had coronary angiogram and showed severe multi-vessel disease not amenable for PCI and CABG was recommended on 05/31/[address] Lynch (see op-note). He tolerated the procedure well. He is transferred out to CVICU and is on CVIMU now. - S/p SCA on 05/31/23, showed multi-vessel disease, not amenable for PCI. - Patient is refusing heparin drip, is asking for Diluadid for chest pain. Per CV surgery, the patient needs to be off narcotics prior surgery, pain management with Tylenol, Robaxin and Lyrica. Dr. José with pain management following - Continue aspirin. Brilinta on hold given upcoming surgery. Re-check plavix effect per CV surgery - On atorvastatin 40mg daily, metoprolol tartrate 50mg BID - He reports SL nitroglycerin does not relieve the chest pain and morphine does not subside the pain - Pre-op workup for CABG per CV surgery - CV surgery is planning CABG, likely the week of 06/10/23 -- SUBJECTIVE -- CHIEF COMPLAINT: Chest pain, shortness of breath PATIENT NARRATIVE: Resting in bed. He denies chest pain now. He states is frustrated with the hospitalization and wants to be transferred to [place]. He would like to speak with the CV surgery team. No acute events overnight. -REVIEW OF SYSTEMS- GENERAL: Negative for fever, malaise, fatigue. EYES: Negative for blurry vision. No diplopia. EARS/NOSE/THROAT: Negative for sore throat. No otalgia. No rhinorrhea. RESPIRATORY: Negative for dyspnea or wheeze. No cough. CARDIOVASCULAR: Negative for chest pain or palpitations. No extremity swelling. GASTROINTESTINAL: Negative for abdominal pain or nausea. No emesis. No diarrhea. GENITOURINARY: Negative for dysuria, frequency, or urgency. No gross hematuria. MUSCULOSKELETAL: Negative for joint stiffness, pain, or arthralgias. SKIN: Negative for rashes. No pruritus. NEUROLOGICAL: Negative for headache. No vertigo. Denies paresthesias. PSYCHIATRIC: Negative for specific complaints. -- OBJECTIVE -- VITALS (06/05 07:08 - 06/06 07:08): Temperature C: 36.7 (36.5 - 37.1) Temperature source: Oral Pulse Rate 71 (63 - 75) Respiratory rate: 17 (9 - 20) Blood pressure: 117/77 (102/63 - 152/81) Blood pressure source: Monitor I/Os (06/05 07:00 - 06/06 07:00): Net 670 Intake 870 Output 200 -EXAM- OTHER: Constitutional: Well developed, well nourished patient, in no acute distress. Derm/Integumentary: Warm and dry with no rashes, sores, or lesions. HEENT: Eyes-sclera clear and white, symmetrical w/ no lag. ENT - Palate and gums pink, mucosa moist, no pallor/cyanosis. Right eye redness Neck: supple with no masses, no thyromegaly, No JVD. Respiratory: Clear to auscultation. Heart: S1S2+, Regular Rate and Rhythm, No murmurs, rubs, or gallops. Gastrointestinal: + Bowel Sounds all quadrants. Soft, nontender with no masses or organomegaly; No HJR. Musculoskeletal: Equal strength in all extremities. No weakness. Neurology: Alert and oriented X 3. Calm, cooperative affect. No focal deficits. Extremities: + peripheral pulses. No clubbing, cyanosis. No lower extremity edema. -- DATA -- MEDICATIONS LIDOCAINE 1 PATCH TRANSDERM DAILY SODIUM CHLORIDE 0.9% 1000 ML IV .Q24H MAG HYDROX/AL HYDROX/SIMETH 30 ML PO Q4H PRN cloNIDine HCL 0.1 MG PO Q8H PRN DOCUSATE SODIUM 100 MG PO BID ATORVASTATIN CALCIUM 80 MG PO BEDTIME METOPROLOL TARTRATE 50 MG PO BID ONDANSETRON 4 MG PO Q6H PRN hydrALAZINE HCL 5 MG IV Q6HR PRN ACETAMINOPHEN 650 MG PO Q4H PRN FOLIC ACID 1 MG PO DAILY ONDANSETRON HCL/PF 4 MG IV Q6H PRN methocarbamoL 750 MG PO TID HEPARIN/SOD CHLOR 0.45% 78562 UNITS IV TITRATE chlordiazePOXIDE HCl 25 MG PO BID ASPIRIN 81 MG PO DAILY THIAMINE HCL 100 MG PO DAILY HEPARIN SODIUM,PORCINE 5000 UNIT IV ASDIR PRN traZODone HCL 100 MG PO BEDTIME METOPROLOL TARTRATE 5 MG IV Q6H PRN HEPARIN PHARMACY TO MONITOR 1 EACH IV ASDIR PREGABALIN 50 MG PO BID NITROGLYCERIN 0.4 MG SL Q5M PRN HEPARIN SODIUM,PORCINE 3000 UNIT IV ASDIR PRN ESCITALOPRAM 20 MG PO DAILY -- ATTESTATION -- CARE ACTIVITIES / CARE COORDINATION: - I have reviewed the history and repeated the carias elements - I have seen and examined this patient - I have reviewed the progress in the clinical course since the last examination - I have discussed the patient's condition with other members of the care team ADDITIONAL DETAIL: Plan of care discussed with Dr. Kurtis Lynch Signed in PatientKeeper by CAMRON PATEL on 06/07/23 at 18:54 Cosigned by KURTIS LYNCH MD on 07/07/23 at 21:26 at 2125 at 2125 ATTENTION *EDITS and/or ADDENDA must be made in Patient Keeper for this note. * * Edits and ammendments created in [employer] are not visible * * in Patient Keeper or the legal medical record ([facility]). * RPT #: [id number] END OF REPORT [facility] 2023-06-06 14:02:00 [facility] ([facility]) Hospitalist Progress Note REPORT #: [id number] REPORT STATUS: Signed DATE: 06/06/23 TIME: 1401 PATIENT: KOTA MONTES UNIT #: [id number] ROOM #: [id number] BED: A : 62 AGE: 62 SEX: M ATTEND: Nnamdi Rachel MD ADM AUTHOR: Nnamdi Rachel MD ATTENTION *EDITS and/or ADDENDA must be made in Patient Keeper for this note. * * Edits and ammendments created in [employer] are not visible * * in Patient Keeper or the legal medical record ([facility]). * -- ASSESSMENT AND PLAN -- GENERAL ASSESSMENT: ASSESSMENT AND PLAN: 1. Recurrent chest pain, in a patient with a known history of severe multivessel coronary artery disease, status post multiple interventions. Serial cardiac enzymes are negative and myocardial infarction has been ruled out. I will continue aspirin, Brilinta, metoprolol and atorvastatin. selective coronary angiogram by Dr. Kurtis Lynch 05/30 revealing severe multivessel coronary artery disease, not amenable to further angioplasty. CABG advised, week of 06/09. 2. Abdominal distention and pain, rule out ileus/bowel obstruction. Abdominal x-ray non diagnostic. 3. Hypertension. Continue metoprolol. 4. Hyperlipidemia. Continue atorvastatin 40 mg daily. 5. Alcohol abuse. Delirium tremens prophylaxis. 6. Nicotine dependence, we will offer a Nicoderm patch. 7. Anxiety/depression, not otherwise specified. Continue escitalopram. 8. Severe hyponatremia. The patient has previously had similar hyponatremia and etiology is unclear. 9. Gross noncompliance with instructions and therapy ADDITIONAL COMMENTS: Downgraded from CVICU because of adamantly refusing interventions. selective coronary angiogram by Dr. Kurtis Lynch 05/30 revealing severe multivessel coronary artery disease, not amenable to further angioplasty. He was presented at the multidisciplinary conference 06/05, Consensus is surgical revascularization, week June [address] Rogerio Pike. -- SUBJECTIVE -- HPI: This 62-year-old gentleman has a past medical history significant for hypertension, hyperlipidemia, myocardial infarction in 2005, angioplasty with stent placement x2 to the RCA in 2005, complex high risk PCI with one stent placement to the RCA and PTCA to the left circumflex with atherectomy and intravenous lithotripsy in 06/2022, status post rotablation and two stents placed to the left circumflex by Dr. Kurtis Lynch on 12/24/2022. On 04/05/2023, he was at an outside emergency room with complaints of chest pain and shortness of breath, but left against medical advice prior to any intervention. He presented to the [facility] Emergency Room on 05/28/2023 with complaints of chest pain and shortness of breath that started earlier this morning, during inactivity. He also reported a cough for the past several days, but denied any fever or known sick contacts. Later after eating his lunch, he reported significant abdominal distention and bloating with abdominal pain. In the emergency room, troponin was negative and EKG showed sinus rhythm, left bundle branch block. He has been admitted for further management. PATIENT NARRATIVE: 05/28: The patient was initially moved down to CV IMU for cardiac management. He continued to have persistent pain despite being started on intravenous heparin infusion. He demanded Dilaudid earlier than the designated time. He was, as previously, disrespectful and rude to the staff. He was transition to CVICU for closer monitoring and initiation of nitroglycerin infusion. The patient refused nitroglycerin infusion, sublingual tablets. Today he also refused heparin infusion, refused blood draws for any reason. He repeatedly threatened to leave AGAINST MEDICAL ADVICE. He is being moved back to CV IMU status as he is not on nitroglycerin drip at this time, and he wants more freedom. He needs selective coronary angiogram, the earliest expected is 05/30. as per state fire marshal: Patient declining all interventions, wanting to leave AMA unless downgraded, chest pain unlikely cardiac, enzymes negative and EKG without concerning features. 05/29: Once again, the patient threatened to walk out AGAINST MEDICAL ADVICE multiple times today. Refused heparin infusion and was off it for about 12 hours. Towards evening he was agreeable and got back on heparin. Plan is for selective coronary angiogram and possible intervention tomorrow. 05/30: He underwent selective coronary angiogram by Dr. Kurtis Lynch 05/30 revealing severe multivessel coronary artery disease, not amenable to further angioplasty. CABG evaluation has been advised. As usual, the patient announced that he is going to leave after the rest period is over. He started ambulating even before the rest period was over. Noncompliance appears to be his response to everything. Apparently his son came by and was able to convince him to stay and get the treatment. It is unclear as to how long he will heed this advice. He now says that morphine is just like "water". He wants to go back to Dilaudid. I have switched him to intravenous Dilaudid 1 mg every 3 hours as needed for recurrent chest pain. 05/31: The patient remains remarkably consistent in his insulting attitude towards staff in general. Overnight he displayed racial discrimination against the nurse, and told her not to touch him. He got up and started walking before the resting time after the heart catheterization was over. FemoStop had to be applied to the groin to control the bleeding. Repeatedly announces that he is going to leave AGAINST MEDICAL ADVICE. A little later he says that okay he will stay for the evaluation. Physically transferred to CV IMU. Plan is for surgical/CABG evaluation. 06/01: He refused to be on heparin. Intermittent chest pain, taking Dilaudid [id number]. We are waiting for surgical recommendations as regards to CABG. 06/02: Intermittent chest pain, taking Dilaudid [id number]. Refuses to be on heparin. Refuses telemetry monitoring. Seen by Dr. Rogerio Pike. CABG has been advised, scheduled for June 06, 2023. The procedure was explained at length to the patient and his Loyd at bedside. 06/03: Intermittent chest pain, demands intravenous Dilaudid around the clock. Pharmacy, in their own wisdom, tried to cut it back to every 4 hours and the patient once again threatened to walk out AGAINST MEDICAL ADVICE. I have advised the pharmacy to please follow the instructions. Will consult pain management services. Also refuses Lidoderm patches because "they do not work". CABG is scheduled for June 06, 2023. 06/04: The patient could not go even 24 hours, without insulting and racially denigrating the staff. Seen by pain management services. Medication regimen optimized but the patient refused, once again, saying that "it does not work". He will be presented at the multidisciplinary conference 06/05, regarding the best option for coronary intervention. 4/4: The patient was discussed at the multidisciplinary conference June 05. Consensus is surgical intervention. Most likely week of June 09. His chest pain and demand for intravenous Dilaudid is way out of proportion to the objective findings. As per cardiothoracic surgery services, intravenous Dilaudid has been discontinued. The patient has been seen by pain management services and oral medications for pain will be allowed at this time. -REVIEW OF SYSTEMS- GENERAL: CONSTITUTIONAL: No fever or chills. No weight gain or weight loss. HEENT: Some congestion and cough for the past few days. CARDIOPULMONARY: Shortness of breath and acute chest pain starting earlier in the day. GASTROINTESTINAL: Abdominal distention and pain and bloating starting on the day of admission. Nausea. No vomiting. No constipation, but loose stools. GENITOURINARY: Denies any dysuria or discharge. NEUROLOGICAL: Denies any headache, dizziness or syncope. -- OBJECTIVE -- VITALS (06/04 14:02 - 06/05 14:02): Temperature C: 37.1 (36.8 - 37.1) Temperature source: Axillary Pulse Rate 63 (63 - 69) Respiratory rate: 20 (9 - 20) Blood pressure: 139/73 (120/63 - 139/73) Blood pressure source: Monitor I/Os (06/04 07:00 - 06/05 07:00): Net 580 Intake 580 -EXAM- GENERAL: GENERAL: Not in any distress VITAL SIGNS: oxygen saturation 96% on room air. Weight is 84 kilograms. Body mass index 29. HEENT: Head is atraumatic. Pupils are reactive to light and accommodation. Extraocular muscles intact. NECK: Supple. No thyromegaly. No JVD. CARDIOVASCULAR: S1, S2 audible. LUNGS: Clear to auscultation. ABDOMEN: Distended, bowel sounds audible. Minimal tenderness. MUSCULOSKELETAL: No joint tenderness. EXTREMITIES: No edema, cyanosis or clubbing. Pedal pulses palpable. NEUROLOGIC: No focal deficit. irritable. -- DATA -- MEDICATIONS LIDOCAINE 1 PATCH TRANSDERM DAILY SODIUM CHLORIDE 0.9% 1000 ML IV .Q24H MAG HYDROX/AL HYDROX/SIMETH 30 ML PO Q4H PRN cloNIDine HCL 0.1 MG PO Q8H PRN DOCUSATE SODIUM 100 MG PO BID ATORVASTATIN CALCIUM 80 MG PO BEDTIME METOPROLOL TARTRATE 50 MG PO BID ONDANSETRON 4 MG PO Q6H PRN hydrALAZINE HCL 5 MG IV Q6HR PRN ACETAMINOPHEN 650 MG PO Q4H PRN FOLIC ACID 1 MG PO DAILY ONDANSETRON HCL/PF 4 MG IV Q6H PRN methocarbamoL 750 MG PO TID HEPARIN/SOD CHLOR 0.45% 86663 UNITS IV TITRATE chlordiazePOXIDE HCl 25 MG PO BID ASPIRIN 81 MG PO DAILY THIAMINE HCL 100 MG PO DAILY HEPARIN SODIUM,PORCINE 5000 UNIT IV ASDIR PRN traZODone HCL 100 MG PO BEDTIME METOPROLOL TARTRATE 5 MG IV Q6H PRN HEPARIN PHARMACY TO MONITOR 1 EACH IV ASDIR PREGABALIN 50 MG PO BID NITROGLYCERIN 0.4 MG SL Q5M PRN HEPARIN SODIUM,PORCINE 3000 UNIT IV ASDIR PRN ESCITALOPRAM 20 MG PO DAILY -- QUALITY -- -MEDICATIONS- - I attest that the foregoing medication list in the medical record is true, accurate, and complete to the best of my knowledge. -- ATTESTATION -- CARE ACTIVITIES / CARE COORDINATION: - I have reviewed the history and repeated the carias elements - I have seen and examined this patient - I have reviewed the progress in the clinical course since the last examination - I have discussed the patient's condition with other members of the care team Signed in PatientKeeper by Nnamdi Rachel MD on 06/06/23 at 23:09 at 2309 ATTENTION *EDITS and/or ADDENDA must be made in Patient Keeper for this note. * * Edits and ammendments created in [facility] are not visible * * in Patient Keeper or the legal medical record ([facility]). * [facility] #: [id number] END OF REPORT [facility] 2023-06-06 07:40:00 [facility] ([facility]) Cardiology Progress Notes REPORT #: [id number] REPORT STATUS: Signed DATE: 06/06/23 TIME: 07 PATIENT: KOTA MONTES UNIT #: [id number] ROOM #: [facility] BED: A : 62 AGE: 62 SEX: M ATTEND: Keenan Kumari MD ADM AUTHOR: Camron Patel ATTENTION *EDITS and/or ADDENDA must be made in Patient Keeper for this note. * * Edits and ammendments created in [employer] are not visible * * in Patient Keeper or the legal medical record ([facility]). * -- CO-SIGNATURE -- COMMENTS: The patient was seen on rounds with MIAH Monge. The patient has no complaints Examination demonstrates normal heart sounds and clear lung armijo. Impression and plan The patient is a 62-year-old gentleman with a history of coronary artery disease who underwent high risk PCI in December 2022. The patient came in from an outside emergency room with complaint of chest pain and shortness of breath. The patient comes in with unstable angina. The patient underwent cardiac catheterization on Saturday which demonstrated multivessel coronary artery disease. The patient will need cardiac surgery. We have consulted CV surgery and they are evaluating him for bypass. His dual antiplatelet therapy has been discontinued. The patient is difficult to manage in the hospital as he is quite opinionated about his care. He is refusing a heparin drip and wants to have narcotics for chest pain. Due to the patient's noncompliance cardiac surgery would like to discuss him in conference and reevaluate for bypass surgery. Signed in PatientKeeper by KURTIS LYNCH MD on 07/07/23 at 21:25 -- ASSESSMENT AND PLAN -- PROBLEMS: 1: Coronary artery disease/chest pain A/P: The patient is a 62-year-old gentleman (patient of Dr. Giordano) has a PMHx of coronary artery disease (s/p PCI 2005, 06/2022, 12/24/2022), h/o NM (2005), family history of coronary artery disease, h/o alcohol abuse, nicotine use, hypertension, hyperlipidemia. He underwent percutaneous coronary intervention with rotablation and placement of 2 stents in the LCx on 12/24/[address] Lynch and Dr[address] Malachi Fitzgerald (see op-note). He was discharged on stable condition on 12/25/22. He presented at an outside emergency room on 04/05/2023 with complaint of chest pain and shortness of breath, and he left against medical advise prior any intervention. He presented today (05/28/23) at [facility] with complaints of shortness of breath and left sided localized sharp chest pain that started earlier today. He reports the symptoms are similar when he had the previous percutaneous coronary interventions. He reports being complaint taking his medications, including DAPT. Workup showed negative troponin, BNP 78, Na 128. EKG shows normal sinus rhythm and left bundle branch block. Chest x-ray showed unremarkable frontal chest radiograph. He was admitted for further evaluation and management. On 05/28/23 night, he reported chest pain and was transferred to CVICU for closer observation. He had coronary angiogram and showed severe multi-vessel disease not amenable for PCI and CABG was recommended on 05/31/[address] Lynch (see op-note). He tolerated the procedure well. He is transferred out to CVICU and is on CVIMU now. - S/p SCA on 05/31/23, showed multi-vessel disease, not amenable for PCI. - Patient is refusing heparin drip, is asking for Diluadid for chest pain. Per CV surgery, the patient needs to be off narcotics prior surgery, pain management with Tylenol, Robaxin and Lyrica. Dr. José with pain management following - On aspirin. Brilinta discontinued on 05/31/23 for CABG evaluation - Continue atorvastatin 40mg daily, metoprolol tartrate 50mg BID - He reports SL nitroglycerin does not relieve the chest pain and morphine does not subside the pain - Pre-op workup for CABG per CV surgery - CV surgery was planning CABG tentatively today, (06/06/23) and postponed until the high-risk multidisciplinary valve conference scheduled for today, to reevaluate CABG vs. PCI, consensus is surgery, likely the week of 06/10/23. -- SUBJECTIVE -- CHIEF COMPLAINT: Chest pain, shortness of breath PATIENT NARRATIVE: Resting in bed. He denies chest pain now. No acute events overnight. -REVIEW OF SYSTEMS- GENERAL: Negative for fever, malaise, fatigue. EYES: Negative for blurry vision. No diplopia. EARS/NOSE/THROAT: Negative for sore throat. No otalgia. No rhinorrhea. RESPIRATORY: Negative for dyspnea or wheeze. No cough. CARDIOVASCULAR: Negative for chest pain or palpitations. No extremity swelling. GASTROINTESTINAL: Negative for abdominal pain or nausea. No emesis. No diarrhea. GENITOURINARY: Negative for dysuria, frequency, or urgency. No gross hematuria. MUSCULOSKELETAL: Negative for joint stiffness, pain, or arthralgias. SKIN: Negative for rashes. No pruritus. NEUROLOGICAL: Negative for headache. No vertigo. Denies paresthesias. PSYCHIATRIC: Negative for specific complaints. -- OBJECTIVE -- VITALS (06/04 07:08 - 06/05 07:08): Temperature C: 37.0 (36.8 - 37.0) Temperature source: Axillary Pulse Rate 75 Respiratory rate: 20 (18 - 20) Blood pressure: 120/69 (91/50 - 136/84) Blood pressure source: Monitor I/Os (06/04 07:00 - 06/05 07:00): Net 580 Intake 580 -EXAM- OTHER: Constitutional: Well developed, well nourished patient, in no acute distress. Derm/Integumentary: Warm and dry with no rashes, sores, or lesions. HEENT: Eyes-sclera clear and white, symmetrical w/ no lag. ENT - Palate and gums pink, mucosa moist, no pallor/cyanosis. Right eye redness Neck: supple with no masses, no thyromegaly, No JVD. Respiratory: Clear to auscultation. Heart: S1S2+, Regular Rate and Rhythm, No murmurs, rubs, or gallops. Gastrointestinal: + Bowel Sounds all quadrants. Soft, nontender with no masses or organomegaly; No HJR. Musculoskeletal: Equal strength in all extremities. No weakness. Neurology: Alert and oriented X 3. Calm, cooperative affect. No focal deficits. Extremities: + peripheral pulses. No clubbing, cyanosis. No lower extremity edema. -- DATA -- MEDICATIONS LIDOCAINE 1 PATCH TRANSDERM DAILY SODIUM CHLORIDE 0.9% 1000 ML IV .Q24H MAG HYDROX/AL HYDROX/SIMETH 30 ML PO Q4H PRN cloNIDine HCL 0.1 MG PO Q8H PRN DOCUSATE SODIUM 100 MG PO BID HYDROcodone BITARTRATE/APAP 1 TAB PO Q4H PRN METOPROLOL TARTRATE 50 MG PO BID ONDANSETRON 4 MG PO Q6H PRN hydrALAZINE HCL 5 MG IV Q6HR PRN ACETAMINOPHEN 650 MG PO Q4H PRN FOLIC ACID 1 MG PO DAILY ONDANSETRON HCL/PF 4 MG IV Q6H PRN methocarbamoL 750 MG PO TID HEPARIN/SOD CHLOR 0.45% 99776 UNITS IV TITRATE chlordiazePOXIDE HCl 25 MG PO BID ASPIRIN 81 MG PO DAILY THIAMINE HCL 100 MG PO DAILY HEPARIN SODIUM,PORCINE 5000 UNIT IV ASDIR PRN traZODone HCL 100 MG PO BEDTIME METOPROLOL TARTRATE 5 MG IV Q6H PRN HEPARIN PHARMACY TO MONITOR 1 EACH IV ASDIR PREGABALIN 50 MG PO BID ATORVASTATIN CALCIUM 40 MG PO BEDTIME HYDROmorphone HCL 1 MG IV Q3H PRN HYDROcodone BITARTRATE/APAP 1 TAB PO Q4H PRN NITROGLYCERIN 0.4 MG SL Q5M PRN HEPARIN SODIUM,PORCINE 3000 UNIT IV ASDIR PRN ESCITALOPRAM 20 MG PO DAILY -- ATTESTATION -- CARE ACTIVITIES / CARE COORDINATION: - I have reviewed the history and repeated the carias elements - I have seen and examined this patient - I have reviewed the progress in the clinical course since the last examination - I have discussed the patient's condition with other members of the care team ADDITIONAL DETAIL: Plan of care discussed with Dr. Kurtis Lynch Signed in PatientKeeper by CAMRON PATEL on 06/06/23 at 20:48 Cosigned by KURTIS LYNCH MD on 07/07/23 at 21:25 at 2124 at 2124 ATTENTION *EDITS and/or ADDENDA must be made in Patient Keeper for this note. * * Edits and ammendments created in [facility] are not visible * * in Patient Keeper or the legal medical record (HPF). * RPT #: [id number] END OF REPORT [facility] 2023-06-05 18:55:00 [facility] ([facility]) Hospitalist Progress Note REPORT #: [id number] REPORT STATUS: Signed DATE: 06/05/23 TIME: 1854 PATIENT: KOTA MONTES UNIT #: [id number] ROOM #: P.0414 BED: A : 62 AGE: 62 SEX: M ATTEND: Nnamdi Rachel MD ADM AUTHOR: Nnamdi Rachel MD ATTENTION *EDITS and/or ADDENDA must be made in Patient Keeper for this note. * * Edits and ammendments created in [employer] are not visible * * in Patient Keeper or the legal medical record (HPF). * -- ASSESSMENT AND PLAN -- GENERAL ASSESSMENT: ASSESSMENT AND PLAN: 1. Recurrent chest pain, in a patient with a known history of severe multivessel coronary artery disease, status post multiple interventions. Serial cardiac enzymes are negative and myocardial infarction has been ruled out. I will continue aspirin, Brilinta, metoprolol and atorvastatin. selective coronary angiogram by Dr. Kurtis Lynch 05/30 revealing severe multivessel coronary artery disease, not amenable to further angioplasty. CABG evaluation has been advised. 2. Abdominal distention and pain, rule out ileus/bowel obstruction. Abdominal x-ray non diagnostic. 3. Hypertension. Continue metoprolol. 4. Hyperlipidemia. Continue atorvastatin 40 mg daily. 5. Alcohol abuse. Delirium tremens prophylaxis. 6. Nicotine dependence, we will offer a Nicoderm patch. 7. Anxiety/depression, not otherwise specified. Continue escitalopram. 8. Severe hyponatremia. The patient has previously had similar hyponatremia and etiology is unclear. We will get additional labs. 9. Gross noncompliance with instructions and therapy ADDITIONAL COMMENTS: Downgraded from CVICU because of adamantly refusing interventions. selective coronary angiogram by Dr. Kurtis Lynch 05/30 revealing severe multivessel coronary artery disease, not amenable to further angioplasty. He will be presented at the multidisciplinary conference 06/05, regarding the best option for coronary intervention. -- SUBJECTIVE -- HPI: This 62-year-old gentleman has a past medical history significant for hypertension, hyperlipidemia, myocardial infarction in 2005, angioplasty with stent placement x2 to the RCA in 2005, complex high risk PCI with one stent placement to the RCA and PTCA to the left circumflex with atherectomy and intravenous lithotripsy in 06/2022, status post rotablation and two stents placed to the left circumflex by Dr. Kurtis Lynch on 12/24/2022. On 04/05/2023, he was at an outside emergency room with complaints of chest pain and shortness of breath, but left against medical advice prior to any intervention. He presented to the [facility] Emergency Room on 05/28/2023 with complaints of chest pain and shortness of breath that started earlier this morning, during inactivity. He also reported a cough for the past several days, but denied any fever or known sick contacts. Later after eating his lunch, he reported significant abdominal distention and bloating with abdominal pain. In the emergency room, troponin was negative and EKG showed sinus rhythm, left bundle branch block. He has been admitted for further management. PATIENT NARRATIVE: 05/28: The patient was initially moved down to CV IMU for cardiac management. He continued to have persistent pain despite being started on intravenous heparin infusion. He demanded Dilaudid earlier than the designated time. He was, as previously, disrespectful and rude to the staff. He was transition to CVICU for closer monitoring and initiation of nitroglycerin infusion. The patient refused nitroglycerin infusion, sublingual tablets. Today he also refused heparin infusion, refused blood draws for any reason. He repeatedly threatened to leave AGAINST MEDICAL ADVICE. He is being moved back to CV IMU status as he is not on nitroglycerin drip at this time, and he wants more freedom. He needs selective coronary angiogram, the earliest expected is 05/30. as per state fire marshal: Patient declining all interventions, wanting to leave AMA unless downgraded, chest pain unlikely cardiac, enzymes negative and EKG without concerning features. 05/29: Once again, the patient threatened to walk out AGAINST MEDICAL ADVICE multiple times today. Refused heparin infusion and was off it for about 12 hours. Towards evening he was agreeable and got back on heparin. Plan is for selective coronary angiogram and possible intervention tomorrow. 05/30: He underwent selective coronary angiogram by Dr. Kurtis Lynch 05/30 revealing severe multivessel coronary artery disease, not amenable to further angioplasty. CABG evaluation has been advised. As usual, the patient announced that he is going to leave after the rest period is over. He started ambulating even before the rest period was over. Noncompliance appears to be his response to everything. Apparently his son came by and was able to convince him to stay and get the treatment. It is unclear as to how long he will heed this advice. He now says that morphine is just like "water". He wants to go back to Dilaudid. I have switched him to intravenous Dilaudid 1 mg every 3 hours as needed for recurrent chest pain. 05/31: The patient remains remarkably consistent in his insulting attitude towards staff in general. Overnight he displayed racial discrimination against the nurse, and told her not to touch him. He got up and started walking before the resting time after the heart catheterization was over. FemoStop had to be applied to the groin to control the bleeding. Repeatedly announces that he is going to leave AGAINST MEDICAL ADVICE. A little later he says that okay he will stay for the evaluation. Physically transferred to CV IMU. Plan is for surgical/CABG evaluation. 06/01: He refused to be on heparin. Intermittent chest pain, taking Dilaudid [id number]. We are waiting for surgical recommendations as regards to CABG. 06/02: Intermittent chest pain, taking Dilaudid [id number]. Refuses to be on heparin. Refuses telemetry monitoring. Seen by Dr. Rogerio Pike. CABG has been advised, scheduled for June 06, 2023. The procedure was explained at length to the patient and his Loyd at bedside. 06/03: Intermittent chest pain, demands intravenous Dilaudid around the clock. Pharmacy, in their own wisdom, tried to cut it back to every 4 hours and the patient once again threatened to walk out AGAINST MEDICAL ADVICE. I have advised the pharmacy to please follow the instructions. Will consult pain management services. Also refuses Lidoderm patches because "they do not work". CABG is scheduled for June 06, 2023. 06/04: The patient could not go even 24 hours, without insulting and racially denigrating the staff. Seen by pain management services. Medication regimen optimized but the patient refused, once again, saying that "it does not work". He will be presented at the multidisciplinary conference 06/05, regarding the best option for coronary intervention. -REVIEW OF SYSTEMS- GENERAL: CONSTITUTIONAL: No fever or chills. No weight gain or weight loss. HEENT: Some congestion and cough for the past few days. CARDIOPULMONARY: Shortness of breath and acute chest pain starting earlier in the day. GASTROINTESTINAL: Abdominal distention and pain and bloating starting on the day of admission. Nausea. No vomiting. No constipation, but loose stools. GENITOURINARY: Denies any dysuria or discharge. NEUROLOGICAL: Denies any headache, dizziness or syncope. -- OBJECTIVE -- VITALS (06/03 11:40 - 06/04 11:40): Temperature C: 36.9 (36.7 - 37.1) Temperature source: Oral Pulse Rate 75 (62 - 75) Respiratory rate: 18 Blood pressure: 136/84 (111/60 - 136/84) Blood pressure source: Monitor I/Os (06/03 07:00 - 06/04 07:00): Net 700 Intake 700 -EXAM- GENERAL: GENERAL: Not in any distress VITAL SIGNS: oxygen saturation 96% on room air. Weight is 84 kilograms. Body mass index 29. HEENT: Head is atraumatic. Pupils are reactive to light and accommodation. Extraocular muscles intact. NECK: Supple. No thyromegaly. No JVD. CARDIOVASCULAR: S1, S2 audible. LUNGS: Clear to auscultation. ABDOMEN: Distended, bowel sounds audible. Minimal tenderness. MUSCULOSKELETAL: No joint tenderness. EXTREMITIES: No edema, cyanosis or clubbing. Pedal pulses palpable. NEUROLOGIC: No focal deficit. irritable. -- DATA -- MEDICATIONS LIDOCAINE 1 PATCH TRANSDERM DAILY SODIUM CHLORIDE 0.9% 1000 ML IV .Q24H MAG HYDROX/AL HYDROX/SIMETH 30 ML PO Q4H PRN cloNIDine HCL 0.1 MG PO Q8H PRN DOCUSATE SODIUM 100 MG PO BID HYDROcodone BITARTRATE/APAP 1 TAB PO Q4H PRN METOPROLOL TARTRATE 50 MG PO BID ONDANSETRON 4 MG PO Q6H PRN hydrALAZINE HCL 5 MG IV Q6HR PRN ACETAMINOPHEN 650 MG PO Q4H PRN FOLIC ACID 1 MG PO DAILY ONDANSETRON HCL/PF 4 MG IV Q6H PRN methocarbamoL 750 MG PO TID HEPARIN/SOD CHLOR 0.45% 55380 UNITS IV TITRATE chlordiazePOXIDE HCl 25 MG PO BID ASPIRIN 81 MG PO DAILY THIAMINE HCL 100 MG PO DAILY HEPARIN SODIUM,PORCINE 5000 UNIT IV ASDIR PRN traZODone HCL 100 MG PO BEDTIME METOPROLOL TARTRATE 5 MG IV Q6H PRN HEPARIN PHARMACY TO MONITOR 1 EACH IV ASDIR PREGABALIN 50 MG PO BID ATORVASTATIN CALCIUM 40 MG PO BEDTIME HYDROmorphone HCL 1 MG IV Q3H PRN HYDROcodone BITARTRATE/APAP 1 TAB PO Q4H PRN NITROGLYCERIN 0.4 MG SL Q5M PRN HEPARIN SODIUM,PORCINE 3000 UNIT IV ASDIR PRN ESCITALOPRAM 20 MG PO DAILY -- QUALITY -- -MEDICATIONS- - I attest that the foregoing medication list in the medical record is true, accurate, and complete to the best of my knowledge. -- ATTESTATION -- CARE ACTIVITIES / CARE COORDINATION: - I have reviewed the history and repeated the carias elements - I have seen and examined this patient - I have reviewed the progress in the clinical course since the last examination - I have discussed the patient's condition with other members of the care team Signed in PatientKeeper by Nnamdi Rachel MD on 06/05/23 at 22:52 at 2252 ATTENTION *EDITS and/or ADDENDA must be made in Patient Keeper for this note. * * Edits and ammendments created in [employer] are not visible * * in Patient Keeper or the legal medical record (HPF). * [facility] #: [id number] END OF REPORT [facility] 2023-06-05 08:33:00 [id number] [facility] [address] [place] [address] PATIENT NAME: KOTA MONTES ADMIT DATE: 05/29/23 ACCOUNT NO: [id number] ROOM NO: P.0405 AGE: 62 REPORT TYPE: CONSULTATION SEX: M ADMITTING PHYSICIAN:Sherrie Stein MD ATTENDING PHYSICIAN:Keenan Kumari MD CONSULTATION DATE: PAIN MANAGEMENT CONSULTATION NOTE CONSULTING PHYSICIAN: Beth José DO SPECIALITY: Pain management. CHIEF COMPLAINT: Chest pain and back pain. HISTORY OF PRESENT ILLNESS: A 62-year-old gentleman with a history significant history of coronary artery disease. Not amenable to any kind of stenting and will be having a CABG procedure, possibly tomorrow. Initially came in complaining of chest pain and shortness of breath. He is currently reporting chest pain and also equal intensity is low back pain. He states that low back pain is of new onset. Radiating into the legs. Somewhat of a poor historian. He denies having any significant back and lower extremity pain prior to this hospitalization. He is on a significant amount of Dilaudid. Pretty much getting it around the clock. Seems mildly sedated to me, also has hydrocodone. Does not appear to be using that as much. Has a lidocaine patch, which he states does not help. Pain rated to be severe enough that he is using the Dilaudid pretty much every 3 hours. PAST MEDICAL HISTORY: CAD, status post PCI; hypertension, hyperlipidemia, history of alcohol abuse. PAST SURGICAL HISTORY: None. SOCIAL HISTORY: Positive for tobacco, positive for alcohol use. MEDICATIONS: Per MAY. ALLERGIES: NO KNOWN DRUG ALLERGIES. REVIEW OF SYSTEMS: Positive for chest pain. Positive for shortness of breath. Positive for back pain. Positive for leg pain. No hearing changes, no visual changes. Positive for shortness of breath. PHYSICAL EXAMINATION: VITAL SIGNS: Blood pressure 111/70, respirations 18, heart rate 71, temperature 36.7. GENERAL: Awake and alert. LUNGS: Normal respiratory rate and effort. PATIENT NAME: KOTA MONTES ABDOMEN: Soft. EXTREMITIES: No edema in the lower extremities. Power is equal in the bilateral lower extremities. No evidence of acute foot drop. Negative straight leg raise bilaterally. Positive tenderness in the paravertebral muscle lumbar spine to palpation. ASSESSMENT: Severe coronary artery disease. New onset low back pain appears to be radiculopathy. PLAN: I checked the [place] prescription monitoring report. He does not have a history of heavy opiate prescriptions. It appears tramadol was given a few times. He denies any chronic history of low back pain. I think an MRI of the lumbar spine will be warranted to find out why he is having so much significant pain there. He is having a CABG tomorrow, but I would start to titrate down the Dilaudid intravenously. We will add a muscle relaxer and Lyrica to the current regimen. He has hydrocodone also. We will discuss with Dr. Rachel. Dictated By: Beth José DO Date Dictated: 06/05/2023 08:33:20 Date Transcribed: 06/05/2023 10:05:57 RMM/KWAN Receipt ID: [id number] Authenticated by Beth José DO On 06/26/2023 06:58:04 AM at 0658 PATIENT NAME: KOTA MONTES [facility] 2023-06-05 08:29:00 [facility] ([facility]) Cardiology Progress Notes REPORT #: [id number] REPORT STATUS: Signed DATE: 06/05/23 TIME: 828 PATIENT: KOTA MONTES UNIT #: [id number] ROOM #: P.0405 BED: A : 61 AGE: 62 SEX: M ATTEND: Keenan Kumari MD ADM AUTHOR: Camron Patel ATTENTION *EDITS and/or ADDENDA must be made in Patient Keeper for this note. * * Edits and ammendments created in [facility] are not visible * * in Patient Keeper or the legal medical record (HPF). * -- CO-SIGNATURE -- COMMENTS: The patient was seen on rounds with MIAH Monge. The patient has no complaints Examination demonstrates normal heart sounds and clear lung armijo. Impression and plan The patient is a 62-year-old gentleman with a history of coronary artery disease who underwent high risk PCI in December 2022. The patient came in from an outside emergency room with complaint of chest pain and shortness of breath. The patient comes in with unstable angina. The patient underwent cardiac catheterization on Saturday which demonstrated multivessel coronary artery disease. The patient will need cardiac surgery. We have consulted CV surgery and they are evaluating him for bypass. His dual antiplatelet therapy has been discontinued. The patient is difficult to manage in the hospital as he is quite opinionated about his care. He is refusing a heparin drip and wants to have narcotics for chest pain. He is tentatively scheduled for cardiac surgery tomorrow. Signed in PatientKeeper by KURTIS LYNCH MD on 07/07/23 at 21:24 -- ASSESSMENT AND PLAN -- PROBLEMS: 1: Coronary artery disease/chest pain A/P: The patient is a 62-year-old gentleman (patient of Dr. Giordano) has a PMHx of coronary artery disease (s/p PCI 2005, 06/2022, 12/24/2022), h/o NM (2005), family history of coronary artery disease, h/o alcohol abuse, nicotine use, hypertension, hyperlipidemia. He underwent percutaneous coronary intervention with rotablation and placement of 2 stents in the LCx on 12/24/[address] Lynch and Dr. Malachi Fitzgerald (see op-note). He was discharged on stable condition on 12/25/22. He presented at an outside emergency room on 04/05/2023 with complaint of chest pain and shortness of breath, and he left against medical advise prior any intervention. He presented today (05/28/23) at [facility] with complaints of shortness of breath and left sided localized sharp chest pain that started earlier today. He reports the symptoms are similar when he had the previous percutaneous coronary interventions. He reports being complaint taking his medications, including DAPT. Workup showed negative troponin, BNP 78, Na 128. EKG shows normal sinus rhythm and left bundle branch block. Chest x-ray showed unremarkable frontal chest radiograph. He was admitted for further evaluation and management. On 05/28/23 night, he reported chest pain and was transferred to CVICU for closer observation. He had coronary angiogram and showed severe multi-vessel disease not amenable for PCI and CABG was recommended on 05/31/[address] Lynch (see op-note). He tolerated the procedure well. He is transferred out to CVICU and is on CVIMU now. - S/p SCA on 05/31/23, showed multi-vessel disease, not amenable for PCI. - Patient is refusing heparin drip, states he receives Diluadid for chest pain - Continue aspirin. Brilinta discontinued on 05/31/23 for CABG evaluation - On atorvastatin 40mg daily, metoprolol tartrate 50mg BID - He reports SL nitroglycerin does not relieve the chest pain and morphine does not subside the pain - Pre-op workup for CABG per CV surgery - CV surgery was planning CABG tentatively tomorrow, (06/06/23) and postponed until the high-risk multidisciplinary valve conference scheduled for tomorrow, , to reevaluate CABG vs. PCI -- SUBJECTIVE -- CHIEF COMPLAINT: Chest pain, shortness of breath PATIENT NARRATIVE: Sleeping during rounds. Seen by CV surgery today. Per nursing staff the patient wanted to leave AMA last night and this morning prior CV surgery to talk to him. No acute events overnight per nursing staff overnight. -REVIEW OF SYSTEMS- GENERAL: Negative for fever, malaise, fatigue. EYES: Negative for blurry vision. No diplopia. EARS/NOSE/THROAT: Negative for sore throat. No otalgia. No rhinorrhea. RESPIRATORY: Negative for dyspnea or wheeze. No cough. CARDIOVASCULAR: Negative for chest pain or palpitations. No extremity swelling. GASTROINTESTINAL: Negative for abdominal pain or nausea. No emesis. No diarrhea. GENITOURINARY: Negative for dysuria, frequency, or urgency. No gross hematuria. MUSCULOSKELETAL: Negative for joint stiffness, pain, or arthralgias. SKIN: Negative for rashes. No pruritus. NEUROLOGICAL: Negative for headache. No vertigo. Denies paresthesias. PSYCHIATRIC: Negative for specific complaints. -- OBJECTIVE -- VITALS (06/03 06:52 - 06/04 06:52): Temperature C: 36.7 (36.5 - 37.1) Temperature source: Oral Pulse Rate 71 (61 - 71) Respiratory rate: 18 Blood pressure: 111/70 (94/55 - 123/74) Blood pressure source: Monitor I/Os (06/02 07:00 - 06/03 07:00): Net 980 Intake 980 -EXAM- OTHER: Constitutional: Well developed, well nourished patient, in no acute distress. Derm/Integumentary: Warm and dry with no rashes, sores, or lesions. HEENT: Eyes-sclera clear and white, symmetrical w/ no lag. ENT - Palate and gums pink, mucosa moist, no pallor/cyanosis. Right eye redness Neck: supple with no masses, no thyromegaly, No JVD. Respiratory: Clear to auscultation. Heart: S1S2+, Regular Rate and Rhythm, No murmurs, rubs, or gallops. Gastrointestinal: + Bowel Sounds all quadrants. Soft, nontender with no masses or organomegaly; No HJR. Musculoskeletal: Equal strength in all extremities. No weakness. Neurology: Alert and oriented X 3. Calm, cooperative affect. No focal deficits. Extremities: + peripheral pulses. No clubbing, cyanosis. No lower extremity edema. -- DATA -- MEDICATIONS LIDOCAINE 1 PATCH TRANSDERM DAILY SODIUM CHLORIDE 0.9% 1000 ML IV .Q24H MAG HYDROX/AL HYDROX/SIMETH 30 ML PO Q4H PRN cloNIDine HCL 0.1 MG PO Q8H PRN DOCUSATE SODIUM 100 MG PO BID HYDROcodone BITARTRATE/APAP 1 TAB PO Q4H PRN METOPROLOL TARTRATE 50 MG PO BID ONDANSETRON 4 MG PO Q6H PRN hydrALAZINE HCL 5 MG IV Q6HR PRN ACETAMINOPHEN 650 MG PO Q4H PRN FOLIC ACID 1 MG PO DAILY ONDANSETRON HCL/PF 4 MG IV Q6H PRN HEPARIN/SOD CHLOR 0.45% 72609 UNITS IV TITRATE chlordiazePOXIDE HCl 25 MG PO BID ASPIRIN 81 MG PO DAILY THIAMINE HCL 100 MG PO DAILY HEPARIN SODIUM,PORCINE 5000 UNIT IV ASDIR PRN traZODone HCL 100 MG PO BEDTIME METOPROLOL TARTRATE 5 MG IV Q6H PRN HEPARIN PHARMACY TO MONITOR 1 EACH IV ASDIR ATORVASTATIN CALCIUM 40 MG PO BEDTIME HYDROmorphone HCL 1 MG IV Q3H PRN HYDROcodone BITARTRATE/APAP 1 TAB PO Q4H PRN NITROGLYCERIN 0.4 MG SL Q5M PRN HEPARIN SODIUM,PORCINE 3000 UNIT IV ASDIR PRN ESCITALOPRAM 20 MG PO DAILY -- ATTESTATION -- CARE ACTIVITIES / CARE COORDINATION: - I have reviewed the history and repeated the carias elements - I have seen and examined this patient - I have reviewed the progress in the clinical course since the last examination - I have discussed the patient's condition with other members of the care team ADDITIONAL DETAIL: Plan of care discussed with Dr. Kurtis Lynch Signed in PatientKeeper by CAMRON PATEL on 06/05/23 at 16:14 Cosigned by KURTIS LYNCH MD on 07/07/23 at 21:24 at 2123 at 2123 ATTENTION *EDITS and/or ADDENDA must be made in Patient Keeper for this note. * * Edits and ammendments created in [facility] are not visible * * in Patient Keeper or the legal medical record (HPF). * RPT #: [id number] END OF REPORT [facility] 2023-06-05 08:00:00 [facility] ([facility]) Cardiothoracic Surg. Prog Note REPORT #: [id number] REPORT STATUS: Signed DATE: 06/05/23 TIME: 0800 PATIENT: KOTA MONTES UNIT #: [id number] ROOM #: P.0414 BED: A : 61 AGE: 62 SEX: M ATTEND: Nnamdi Rachel MD ADM AUTHOR: Edis Nogueira ATTENTION *EDITS and/or ADDENDA must be made in Patient Keeper for this note. * * Edits and ammendments created in [employer] are not visible * * in Patient Keeper or the legal medical record (HPF). * -- ASSESSMENT AND PLAN -- HOSPITAL COURSE TO DATE: Severe multivessel coronary artery disease status post multiple PCI's now with recurrent symptomatic coronary artery disease felt to be high risk for PCI due to anatomy. GENERAL ASSESSMENT: Patient tentatively scheduled for coronary artery bypass on 06/06/2023 however we were notified overnight by nursing staff the patient Wanted to leave AGAINST MEDICAL ADVICE. His reasoning was that his back pain was severe and he was not getting adequate pain control. Pain medicine was consulted yesterday pending evaluation. Per records for this hospital stay patient has adamantly refused any oral regimen of any kind and is very specific with only gaining relief with Dilaudid. Narcotic Use review for this hospital stay suggest that he is receiving 1 mg of Dilaudid every 3 hours. Of note it Has been difficult to gain specific source or etiology of his pain he reports the pain is severely intense in his back with radiation to his leg and is also complained of chest pain at times cardiology does not feel that this pain is related to his coronary artery disease Patient had been on Brilinta which has been held anticipation for surgery however his Platelet function test Remains very low. If this is accurate, surgery would be unsafe at this time. Therefore surgery is being delayed. We will also present him at high risk conference to discuss if there is any other reasonable way to address his coronary artery disease as with his current pain medicine requirements Recovering from surgery may prove to be difficult. -- SUBJECTIVE -- CHIEF COMPLAINT: chest pain -- OBJECTIVE -- VITALS (06/03 15:46 - 06/04 15:46): Temperature C: 36.9 (36.7 - 37.1) Temperature source: Oral Pulse Rate 75 (62 - 75) Respiratory rate: 18 Blood pressure: 136/84 (111/60 - 136/84) Blood pressure source: Monitor I/Os (06/03 07:00 - 06/04 07:00): Net 700 Intake 700 -- DATA -- MEDICATIONS LIDOCAINE 1 PATCH TRANSDERM DAILY SODIUM CHLORIDE 0.9% 1000 ML IV .Q24H MAG HYDROX/AL HYDROX/SIMETH 30 ML PO Q4H PRN cloNIDine HCL 0.1 MG PO Q8H PRN DOCUSATE SODIUM 100 MG PO BID HYDROcodone BITARTRATE/APAP 1 TAB PO Q4H PRN METOPROLOL TARTRATE 50 MG PO BID ONDANSETRON 4 MG PO Q6H PRN hydrALAZINE HCL 5 MG IV Q6HR PRN ACETAMINOPHEN 650 MG PO Q4H PRN FOLIC ACID 1 MG PO DAILY ONDANSETRON HCL/PF 4 MG IV Q6H PRN methocarbamoL 750 MG PO TID HEPARIN/SOD CHLOR 0.45% 99899 UNITS IV TITRATE chlordiazePOXIDE HCl 25 MG PO BID ASPIRIN 81 MG PO DAILY THIAMINE HCL 100 MG PO DAILY HEPARIN SODIUM,PORCINE 5000 UNIT IV ASDIR PRN traZODone HCL 100 MG PO BEDTIME METOPROLOL TARTRATE 5 MG IV Q6H PRN HEPARIN PHARMACY TO MONITOR 1 EACH IV ASDIR PREGABALIN 50 MG PO BID ATORVASTATIN CALCIUM 40 MG PO BEDTIME HYDROmorphone HCL 1 MG IV Q3H PRN HYDROcodone BITARTRATE/APAP 1 TAB PO Q4H PRN NITROGLYCERIN 0.4 MG SL Q5M PRN HEPARIN SODIUM,PORCINE 3000 UNIT IV ASDIR PRN ESCITALOPRAM 20 MG PO DAILY Signed in PatientKeeper by Edis Nogueira on 06/05/23 at 15:59 at 1559 ATTENTION *EDITS and/or ADDENDA must be made in Patient Keeper for this note. * * Edits and ammendments created in [facility] are not visible * * in Patient Keeper or the legal medical record ([facility]). * RPT #: [id number] END OF REPORT [facility] 2023-06-04 18:24:00 [facility] ([facility]) Hospitalist Progress Note REPORT #: [id number] REPORT STATUS: Signed DATE: 06/04/23 TIME: 1823 PATIENT: KOTA MONTES UNIT #: [id number] ROOM #: P.0414 BED: A : 62 AGE: 62 SEX: M ATTEND: Nnamdi Rachel MD ADM AUTHOR: Nnamdi Rachel MD ATTENTION *EDITS and/or ADDENDA must be made in Patient Keeper for this note. * * Edits and ammendments created in [facility] are not visible * * in Patient Keeper or the legal medical record ([facility]). * -- ASSESSMENT AND PLAN -- GENERAL ASSESSMENT: ASSESSMENT AND PLAN: 1. Recurrent chest pain, in a patient with a known history of severe multivessel coronary artery disease, status post multiple interventions. Serial cardiac enzymes are negative and myocardial infarction has been ruled out. I will continue aspirin, Brilinta, metoprolol and atorvastatin. selective coronary angiogram by Dr. Kurtis Lynch 05/30 revealing severe multivessel coronary artery disease, not amenable to further angioplasty. CABG evaluation has been advised. 2. Abdominal distention and pain, rule out ileus/bowel obstruction. Abdominal x-ray non diagnostic. 3. Hypertension. Continue metoprolol. 4. Hyperlipidemia. Continue atorvastatin 40 mg daily. 5. Alcohol abuse. Delirium tremens prophylaxis. 6. Nicotine dependence, we will offer a Nicoderm patch. 7. Anxiety/depression, not otherwise specified. Continue escitalopram. 8. Severe hyponatremia. The patient has previously had similar hyponatremia and etiology is unclear. We will get additional labs. 9. Gross noncompliance with instructions and therapy ADDITIONAL COMMENTS: Downgraded from CVICU because of adamantly refusing interventions. selective coronary angiogram by Dr. Kurtis Lynch 05/30 revealing severe multivessel coronary artery disease, not amenable to further angioplasty. Seen by Dr. Rogerio Pike. CABG, scheduled for June 06, 2023. -- SUBJECTIVE -- HPI: This 62-year-old gentleman has a past medical history significant for hypertension, hyperlipidemia, myocardial infarction in 2005, angioplasty with stent placement x2 to the RCA in 2005, complex high risk PCI with one stent placement to the RCA and PTCA to the left circumflex with atherectomy and intravenous lithotripsy in 06/2022, status post rotablation and two stents placed to the left circumflex by Dr. Kurtis Lynch on 12/24/2022. On 04/05/2023, he was at an outside emergency room with complaints of chest pain and shortness of breath, but left against medical advice prior to any intervention. He presented to the [facility] Emergency Room on 05/28/2023 with complaints of chest pain and shortness of breath that started earlier this morning, during inactivity. He also reported a cough for the past several days, but denied any fever or known sick contacts. Later after eating his lunch, he reported significant abdominal distention and bloating with abdominal pain. In the emergency room, troponin was negative and EKG showed sinus rhythm, left bundle branch block. He has been admitted for further management. PATIENT NARRATIVE: 05/28: The patient was initially moved down to CV IMU for cardiac management. He continued to have persistent pain despite being started on intravenous heparin infusion. He demanded Dilaudid earlier than the designated time. He was, as previously, disrespectful and rude to the staff. He was transition to CVICU for closer monitoring and initiation of nitroglycerin infusion. The patient refused nitroglycerin infusion, sublingual tablets. Today he also refused heparin infusion, refused blood draws for any reason. He repeatedly threatened to leave AGAINST MEDICAL ADVICE. He is being moved back to CV IMU status as he is not on nitroglycerin drip at this time, and he wants more freedom. He needs selective coronary angiogram, the earliest expected is 05/30. as per state fire marshal: Patient declining all interventions, wanting to leave AMA unless downgraded, chest pain unlikely cardiac, enzymes negative and EKG without concerning features. 05/29: Once again, the patient threatened to walk out AGAINST MEDICAL ADVICE multiple times today. Refused heparin infusion and was off it for about 12 hours. Towards evening he was agreeable and got back on heparin. Plan is for selective coronary angiogram and possible intervention tomorrow. 05/30: He underwent selective coronary angiogram by Dr. Kurtis Lynch 05/30 revealing severe multivessel coronary artery disease, not amenable to further angioplasty. CABG evaluation has been advised. As usual, the patient announced that he is going to leave after the rest period is over. He started ambulating even before the rest period was over. Noncompliance appears to be his response to everything. Apparently his son came by and was able to convince him to stay and get the treatment. It is unclear as to how long he will heed this advice. He now says that morphine is just like "water". He wants to go back to Dilaudid. I have switched him to intravenous Dilaudid 1 mg every 3 hours as needed for recurrent chest pain. 05/31: The patient remains remarkably consistent in his insulting attitude towards staff in general. Overnight he displayed racial discrimination against the nurse, and told her not to touch him. He got up and started walking before the resting time after the heart catheterization was over. FemoStop had to be applied to the groin to control the bleeding. Repeatedly announces that he is going to leave AGAINST MEDICAL ADVICE. A little later he says that okay he will stay for the evaluation. Physically transferred to CV IMU. Plan is for surgical/CABG evaluation. 06/01: He refused to be on heparin. Intermittent chest pain, taking Dilaudid [id number]. We are waiting for surgical recommendations as regards to CABG. 06/02: Intermittent chest pain, taking Dilaudid [id number]. Refuses to be on heparin. Refuses telemetry monitoring. Seen by Dr. Rogerio Pike. CABG has been advised, scheduled for June 06, 2023. The procedure was explained at length to the patient and his Loyd at bedside. 06/03: Intermittent chest pain, demands intravenous Dilaudid around the clock. Pharmacy, in their own wisdom, tried to cut it back to every 4 hours and the patient once again threatened to walk out AGAINST MEDICAL ADVICE. I have advised the pharmacy to please follow the instructions. Will consult pain management services. Also refuses Lidoderm patches because "they do not work". CABG is scheduled for June 06, 2023. -REVIEW OF SYSTEMS- GENERAL: CONSTITUTIONAL: No fever or chills. No weight gain or weight loss. HEENT: Some congestion and cough for the past few days. CARDIOPULMONARY: Shortness of breath and acute chest pain starting earlier in the day. GASTROINTESTINAL: Abdominal distention and pain and bloating starting on the day of admission. Nausea. No vomiting. No constipation, but loose stools. GENITOURINARY: Denies any dysuria or discharge. NEUROLOGICAL: Denies any headache, dizziness or syncope. -- OBJECTIVE -- VITALS (06/02 18:24 - 06/03 18:24): Temperature F: 98.4 (98.3 - 98.7) Temperature C: 37.1 (36.5 - 37.1) Temperature source: Oral Pulse Rate 62 (61 - 62) Respiratory rate: 18 Blood pressure: 123/74 (94/55 - 150/83) Blood pressure source: Monitor I/Os (06/02 07:00 - 06/03 07:00): Net 980 Intake 980 -EXAM- GENERAL: GENERAL: Not in any distress VITAL SIGNS: oxygen saturation 96% on room air. Weight is 84 kilograms. Body mass index 29. HEENT: Head is atraumatic. Pupils are reactive to light and accommodation. Extraocular muscles intact. NECK: Supple. No thyromegaly. No JVD. CARDIOVASCULAR: S1, S2 audible. LUNGS: Clear to auscultation. ABDOMEN: Distended, bowel sounds audible. Minimal tenderness. MUSCULOSKELETAL: No joint tenderness. EXTREMITIES: No edema, cyanosis or clubbing. Pedal pulses palpable. NEUROLOGIC: No focal deficit. irritable. -- DATA -- MEDICATIONS LIDOCAINE 1 PATCH TRANSDERM DAILY SODIUM CHLORIDE 0.9% 1000 ML IV .Q24H MAG HYDROX/AL HYDROX/SIMETH 30 ML PO Q4H PRN cloNIDine HCL 0.1 MG PO Q8H PRN DOCUSATE SODIUM 100 MG PO BID HYDROcodone BITARTRATE/APAP 1 TAB PO Q4H PRN METOPROLOL TARTRATE 50 MG PO BID ONDANSETRON 4 MG PO Q6H PRN hydrALAZINE HCL 5 MG IV Q6HR PRN ACETAMINOPHEN 650 MG PO Q4H PRN FOLIC ACID 1 MG PO DAILY ONDANSETRON HCL/PF 4 MG IV Q6H PRN HEPARIN/SOD CHLOR 0.45% 16487 UNITS IV TITRATE chlordiazePOXIDE HCl 25 MG PO BID ASPIRIN 81 MG PO DAILY THIAMINE HCL 100 MG PO DAILY HEPARIN SODIUM,PORCINE 5000 UNIT IV ASDIR PRN traZODone HCL 100 MG PO BEDTIME METOPROLOL TARTRATE 5 MG IV Q6H PRN HEPARIN PHARMACY TO MONITOR 1 EACH IV ASDIR ATORVASTATIN CALCIUM 40 MG PO BEDTIME HYDROmorphone HCL 1 MG IV Q3H PRN HYDROcodone BITARTRATE/APAP 1 TAB PO Q4H PRN NITROGLYCERIN 0.4 MG SL Q5M PRN HEPARIN SODIUM,PORCINE 3000 UNIT IV ASDIR PRN ESCITALOPRAM 20 MG PO DAILY LABS PLT RESP PLAVIX (06/04/23 06:18) PLT RESPONSE TO PLAVIX 8 PLT RESP PLAVIX (06/04/23 06:18) PLT RESPONSE TO PLAVIX 8 PROTHROMBIN TIME (06/04/23 04:53) PROTHROMBIN TIME PATIENT 11.4 INTERNATIONAL NORMAL RATIO 1.02 PTT (06/04/23 04:53) THROMBOPLASTIN TIME PARTIAL 30.1 CBC W/AUTO DIFF (06/04/23 04:53) WHITE BLOOD CELL 7.3 RED BLOOD CELL 4.54 L HEMOGLOBIN 15.1 HEMATOCRIT 45.2 MEAN CELL VOLUME 99.6 H MEAN CELL HGB 33.3 H MEAN CELL HGB CONCENTRATION 33.4 RED CELL DISTRIBUTION WIDTH 13.9 PLATELET COUNT 149L L MEAN PLATELET VOLUME 9.4 NEUTROPHIL % 68.7 LYMPHOCYTE % 18.0 L MONOCYTE % 10.9 H EOSINOPHIL % 1.4 BASOPHIL % 0.5 NEUTROPHIL # 5.02 LYMPHOCYTE # 1.32 MONOCYTE # 0.80 EOSINOPHIL # 0.10 BASOPHIL # 0.04 COMPREHENSIVE METABOLIC PANEL (06/04/23 04:53) SODIUM 137 POTASSIUM 4.4 CHLORIDE 105 CARBON DIOXIDE 30 GLUCOSE 91 BLOOD UREA NITROGEN 18 GLOMERULAR FILTRATION RATE >=60 max estimate CREATININE 1.00 TOTAL PROTEIN 6.7 ALBUMIN 4.7 CALCIUM 9.5 BILIRUBIN TOTAL 0.5 SGOT/AST 25 SGPT/ALT 28 ALKALINE PHOSPHATASE 79.0 -- QUALITY -- -MEDICATIONS- - I attest that the foregoing medication list in the medical record is true, accurate, and complete to the best of my knowledge. -- ATTESTATION -- CARE ACTIVITIES / CARE COORDINATION: - I have reviewed the history and repeated the carias elements - I have seen and examined this patient - I have reviewed the progress in the clinical course since the last examination - I have discussed the patient's condition with other members of the care team Signed in PatientKeeper by Nnamdi Rachel MD on 06/04/23 at 18:28 at 1828 ATTENTION *EDITS and/or ADDENDA must be made in Patient Keeper for this note. * * Edits and ammendments created in [facility] are not visible * * in Patient Keeper or the legal medical record ([facility]). * [facility] #: [id number] END OF REPORT [facility] 2023-06-04 08:38:00 [facility] ([facility]) Cardiology Progress Notes REPORT #: [id number] REPORT STATUS: Signed DATE: 06/04/23 TIME: 837 PATIENT: KOTA MONTES UNIT #: [id number] ROOM #: P.[facility] BED: A : 62 AGE: 62 SEX: M ATTEND: Keenan Kumari MD ADM AUTHOR: Camron Patel ATTENTION *EDITS and/or ADDENDA must be made in Patient Keeper for this note. * * Edits and ammendments created in [employer] are not visible * * in Patient Keeper or the legal medical record ([facility]). * -- CO-SIGNATURE -- COMMENTS: The patient was seen on rounds with MIAH Monge. The patient has no complaints Examination demonstrates normal heart sounds and clear lung armijo. Impression and plan The patient is a 62-year-old gentleman with a history of coronary artery disease who underwent high risk PCI in December 2022. The patient came in from an outside emergency room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 ACID 1 MG PO DAILY ONDANSETRON HCL/PF 4 MG IV Q6H PRN HEPARIN/SOD CHLOR 0.45% 13254 UNITS IV TITRATE chlordiazePOXIDE HCl 25 MG PO BID ASPIRIN 81 MG PO DAILY THIAMINE HCL 100 MG PO DAILY HEPARIN SODIUM,PORCINE 5000 UNIT IV ASDIR PRN traZODone HCL 100 MG PO BEDTIME METOPROLOL TARTRATE 5 MG IV Q6H PRN HEPARIN PHARMACY TO MONITOR 1 EACH IV ASDIR ATORVASTATIN CALCIUM 40 MG PO BEDTIME HYDROmorphone HCL 1 MG IV Q3H PRN HYDROcodone BITARTRATE/APAP 1 TAB PO Q4H PRN NITROGLYCERIN 0.4 MG SL Q5M PRN HEPARIN SODIUM,PORCINE 3000 UNIT IV ASDIR PRN ESCITALOPRAM 20 MG PO DAILY Signed in PatientKeeper by Edis Nogueira on 06/12/23 at 14:48 at 1448 ATTENTION *EDITS and/or ADDENDA must be made in Patient Keeper for this note. * * Edits and ammendments created in [employer] are not visible * * in Patient Keeper or the legal medical record ([facility]). * [facility] #: [id number] END OF REPORT [facility] 2023-06-03 08:23:00 [facility] ([facility]) Cardiology Progress Notes REPORT #: [id number] REPORT STATUS: Signed DATE: 06/03/23 TIME: 822 PATIENT: KOTA MONTES UNIT #: [id number] ROOM #: [id number] BED: A : 61 AGE: 62 SEX: M ATTEND: Keenan Kumari MD ADM AUTHOR: Camron Patel ATTENTION *EDITS and/or ADDENDA must be made in Patient Keeper for this note. * * Edits and ammendments created in [employer] are not visible * * in Patient Keeper or the legal medical record ([facility]). * -- CO-SIGNATURE -- COMMENTS: The patient was seen on rounds with MIAH Monge. The patient has no complaints Examination demonstrates normal heart sounds and clear lung armijo. Impression and plan The patient is a 62-year-old gentleman with a history of coronary artery disease who underwent high risk PCI in December 2022. The patient came in from an outside emergency room with complaint of chest pain and shortness of breath. The patient comes in with unstable angina. The patient underwent cardiac catheterization on Saturday which demonstrated multivessel coronary artery disease. The patient will need cardiac surgery. We have consulted CV surgery and they are evaluating him for bypass. His dual antiplatelet therapy has been discontinued. Signed in PatientKeeper by KURTIS LYNCH MD on 07/07/23 at 21:23 -- ASSESSMENT AND PLAN -- PROBLEMS: 1: Coronary artery disease/chest pain A/P: The patient is a 62-year-old gentleman (patient of Dr. Giordano) has a PMHx of coronary artery disease (s/p PCI 2005, 06/2022, 12/24/2022), h/o NM (2005), family history of coronary artery disease, h/o alcohol abuse, nicotine use, hypertension, hyperlipidemia. He underwent percutaneous coronary intervention with rotablation and placement of 2 stents in the LCx on 12/24/[address] Lynch and Dr. Malachi Fitzgerald (see op-note). He was discharged on stable condition on 12/25/22. He presented at an outside emergency room on 04/05/2023 with complaint of chest pain and shortness of breath, and he left against medical advise prior any intervention. He presented today (05/28/23) at [facility] with complaints of shortness of breath and left sided localized sharp chest pain that started earlier today. He reports the symptoms are similar when he had the previous percutaneous coronary interventions. He reports being complaint taking his medications, including DAPT. Workup showed negative troponin, BNP 78, Na 128. EKG shows normal sinus rhythm and left bundle branch block. Chest x-ray showed unremarkable frontal chest radiograph. He was admitted for further evaluation and management. On 05/28/23 night, he reported chest pain and was transferred to CVICU for closer observation. He had coronary angiogram and showed severe multi-vessel disease not amenable for PCI and CABG was recommended on 05/31/[address] Lynch (see op-note). He tolerated the procedure well. He is transferred out to CVICU and is on CVIMU now. - S/p SCA on 05/31/23, showed multi-vessel disease, not amenable for PCI. We will have Dr. Pike to review the films and evaluate the patient for CABG - Patient is refusing heparin drip, states he receives Diluadid for chest pain - Continue aspirin. Brilinta discontinued on 05/31/23 for CABG evaluation - On atorvastatin 40mg daily, metoprolol tartrate 50mg BID - He reports SL nitroglycerin does not relieve the chest pain and morphine does not subside the pain -- SUBJECTIVE -- CHIEF COMPLAINT: Chest pain, shortness of breath PATIENT NARRATIVE: He denies complaints today. Family (daughter and bedside) at bedside. Awaiting CV surgery for CABG evaluation. Seen by Dr. Lynch today. No acute events overnight. -REVIEW OF SYSTEMS- GENERAL: Negative for fever, malaise, fatigue. EYES: Negative for blurry vision. No diplopia. EARS/NOSE/THROAT: Negative for sore throat. No otalgia. No rhinorrhea. RESPIRATORY: Negative for dyspnea or wheeze. No cough. CARDIOVASCULAR: Negative for chest pain or palpitations. No extremity swelling. GASTROINTESTINAL: Negative for abdominal pain or nausea. No emesis. No diarrhea. GENITOURINARY: Negative for dysuria, frequency, or urgency. No gross hematuria. MUSCULOSKELETAL: Negative for joint stiffness, pain, or arthralgias. SKIN: Negative for rashes. No pruritus. NEUROLOGICAL: Negative for headache. No vertigo. Denies paresthesias. PSYCHIATRIC: Negative for specific complaints. -- OBJECTIVE -- VITALS (06/01 16:20 - 06/02 16:20): Temperature C: 36.5 (36.5 - 36.7) Temperature source: Oral Pulse Rate 62 (60 - 71) Respiratory rate: 20 (18 - 20) Blood pressure: 137/85 (130/68 - 162/91) Blood pressure source: Monitor I/Os (06/01 07:00 - 06/02 07:00): Net 500 Intake 500 -EXAM- OTHER: Constitutional: Well developed, well nourished patient, in no acute distress. Derm/Integumentary: Warm and dry with no rashes, sores, or lesions. HEENT: Eyes-sclera clear and white, symmetrical w/ no lag. ENT - Palate and gums pink, mucosa moist, no pallor/cyanosis. Right eye redness Neck: supple with no masses, no thyromegaly, No JVD. Respiratory: Clear to auscultation. Heart: S1S2+, Regular Rate and Rhythm, No murmurs, rubs, or gallops. Gastrointestinal: + Bowel Sounds all quadrants. Soft, nontender with no masses or organomegaly; No HJR. Musculoskeletal: Equal strength in all extremities. No weakness. Neurology: Alert and oriented X 3. Calm, cooperative affect. No focal deficits. Extremities: + peripheral pulses. No clubbing, cyanosis. No lower extremity edema. -- DATA -- MEDICATIONS LIDOCAINE 1 PATCH TRANSDERM DAILY SODIUM CHLORIDE 0.9% 1000 ML IV .Q24H MAG HYDROX/AL HYDROX/SIMETH 30 ML PO Q4H PRN cloNIDine HCL 0.1 MG PO Q8H PRN DOCUSATE SODIUM 100 MG PO BID HYDROcodone BITARTRATE/APAP 1 TAB PO Q4H PRN METOPROLOL TARTRATE 50 MG PO BID ONDANSETRON 4 MG PO Q6H PRN hydrALAZINE HCL 5 MG IV Q6HR PRN ACETAMINOPHEN 650 MG PO Q4H PRN FOLIC ACID 1 MG PO DAILY ONDANSETRON HCL/PF 4 MG IV Q6H PRN HEPARIN/SOD CHLOR 0.45% 27978 UNITS IV TITRATE chlordiazePOXIDE HCl 25 MG PO BID ASPIRIN 81 MG PO DAILY THIAMINE HCL 100 MG PO DAILY HEPARIN SODIUM,PORCINE 5000 UNIT IV ASDIR PRN traZODone HCL 100 MG PO BEDTIME METOPROLOL TARTRATE 5 MG IV Q6H PRN HEPARIN PHARMACY TO MONITOR 1 EACH IV ASDIR ATORVASTATIN CALCIUM 40 MG PO BEDTIME HYDROmorphone HCL 1 MG IV Q3H PRN HYDROcodone BITARTRATE/APAP 1 TAB PO Q4H PRN NITROGLYCERIN 0.4 MG SL Q5M PRN HEPARIN SODIUM,PORCINE 3000 UNIT IV ASDIR PRN ESCITALOPRAM 20 MG PO DAILY -- ATTESTATION -- CARE ACTIVITIES / CARE COORDINATION: - I have reviewed the history and repeated the carias elements - I have seen and examined this patient - I have reviewed the progress in the clinical course since the last examination - I have discussed the patient's condition with other members of the care team ADDITIONAL DETAIL: Plan of care discussed with Dr. Kurtis Lynch Signed in PatientKeeper by CAMRON PATEL on 06/03/23 at 16:35 Cosigned by KURTIS LYNCH MD on 07/07/23 at 21:23 at 2122 at 2122 ATTENTION *EDITS and/or ADDENDA must be made in Patient Keeper for this note. * * Edits and ammendments created in [employer] are not visible * * in Patient Keeper or the legal medical record ([facility]). * [facility] #: [id number] END OF REPORT [facility] 2023-06-02 13:00:00 [facility] ([facility]) Hospitalist Progress Note REPORT #: [id number] REPORT STATUS: Signed DATE: 06/02/23 TIME: 1300 PATIENT: KOTA MONTES UNIT #: [id number] [facility] B[facility]: A : 61 AGE: 62 SEX: M ATTEND: Nnamdi Rachel MD ADM AUTHOR: Nnamdi Rachel MD ATTENTION *EDITS and/or ADDENDA must be made in Patient Keeper for this note. * * Edits and ammendments created in [employer] are not visible * * in Patient Keeper or the legal medical record ([facility]). * -- ASSESSMENT AND PLAN -- GENERAL ASSESSMENT: ASSESSMENT AND PLAN: 1. Recurrent chest pain, in a patient with a known history of severe multivessel coronary artery disease, status post multiple interventions. Serial cardiac enzymes are negative and myocardial infarction has been ruled out. I will continue aspirin, Brilinta, metoprolol and atorvastatin. selective coronary angiogram by Dr. Kurtis Lynch 05/30 revealing severe multivessel coronary artery disease, not amenable to further angioplasty. CABG evaluation has been advised. 2. Abdominal distention and pain, rule out ileus/bowel obstruction. Abdominal x-ray non diagnostic. 3. Hypertension. Continue metoprolol. 4. Hyperlipidemia. Continue atorvastatin 40 mg daily. 5. Alcohol abuse. Delirium tremens prophylaxis. 6. Nicotine dependence, we will offer a Nicoderm patch. 7. Anxiety/depression, not otherwise specified. Continue escitalopram. 8. Severe hyponatremia. The patient has previously had similar hyponatremia and etiology is unclear. We will get additional labs. 9. Gross noncompliance with instructions and therapy ADDITIONAL COMMENTS: Downgraded from CVICU because of adamantly refusing interventions. selective coronary angiogram by Dr. Kurtis Lynch 05/30 revealing severe multivessel coronary artery disease, not amenable to further angioplasty. CABG evaluation has been advised. -- SUBJECTIVE -- HPI: This 62-year-old gentleman has a past medical history significant for hypertension, hyperlipidemia, myocardial infarction in 2005, angioplasty with stent placement x2 to the RCA in 2005, complex high risk PCI with one stent placement to the RCA and PTCA to the left circumflex with atherectomy and intravenous lithotripsy in 06/2022, status post rotablation and two stents placed to the left circumflex by Dr. Kurtis Lynch on 12/24/2022. On 04/05/2023, he was at an outside emergency room with complaints of chest pain and shortness of breath, but left against medical advice prior to any intervention. He presented to the [facility] Emergency Room on 05/28/2023 with complaints of chest pain and shortness of breath that started earlier this morning, during inactivity. He also reported a cough for the past several days, but denied any fever or known sick contacts. Later after eating his lunch, he reported significant abdominal distention and bloating with abdominal pain. In the emergency room, troponin was negative and EKG showed sinus rhythm, left bundle branch block. He has been admitted for further management. PATIENT NARRATIVE: 05/28: The patient was initially moved down to CV IMU for cardiac management. He continued to have persistent pain despite being started on intravenous heparin infusion. He demanded Dilaudid earlier than the designated time. He was, as previously, disrespectful and rude to the staff. He was transition to CVICU for closer monitoring and initiation of nitroglycerin infusion. The patient refused nitroglycerin infusion, sublingual tablets. Today he also refused heparin infusion, refused blood draws for any reason. He repeatedly threatened to leave AGAINST MEDICAL ADVICE. He is being moved back to CV IMU status as he is not on nitroglycerin drip at this time, and he wants more freedom. He needs selective coronary angiogram, the earliest expected is 05/30. as per state fire marshal: Patient declining all interventions, wanting to leave AMA unless downgraded, chest pain unlikely cardiac, enzymes negative and EKG without concerning features. 05/29: Once again, the patient threatened to walk out AGAINST MEDICAL ADVICE multiple times today. Refused heparin infusion and was off it for about 12 hours. Towards evening he was agreeable and got back on heparin. Plan is for selective coronary angiogram and possible intervention tomorrow. 05/30: He underwent selective coronary angiogram by Dr. Kurtis Lynch 05/30 revealing severe multivessel coronary artery disease, not amenable to further angioplasty. CABG evaluation has been advised. As usual, the patient announced that he is going to leave after the rest period is over. He started ambulating even before the rest period was over. Noncompliance appears to be his response to everything. Apparently his son came by and was able to convince him to stay and get the treatment. It is unclear as to how long he will heed this advice. He now says that morphine is just like "water". He wants to go back to Dilaudid. I have switched him to intravenous Dilaudid 1 mg every 3 hours as needed for recurrent chest pain. 05/31: The patient remains remarkably consistent in his insulting attitude towards staff in general. Overnight he displayed racial discrimination against the nurse, and told her not to touch him. He got up and started walking before the resting time after the heart catheterization was over. FemoStop had to be applied to the groin to control the bleeding. Repeatedly announces that he is going to leave AGAINST MEDICAL ADVICE. A little later he says that okay he will stay for the evaluation. Physically transferred to CV IMU. Plan is for surgical/CABG evaluation. 06/01: He refused to be on heparin. Intermittent chest pain, taking Dilaudid [id number]. We are waiting for surgical recommendations as regards to CABG. -REVIEW OF SYSTEMS- GENERAL: CONSTITUTIONAL: No fever or chills. No weight gain or weight loss. HEENT: Some congestion and cough for the past few days. CARDIOPULMONARY: Shortness of breath and acute chest pain starting earlier in the day. GASTROINTESTINAL: Abdominal distention and pain and bloating starting on the day of admission. Nausea. No vomiting. No constipation, but loose stools. GENITOURINARY: Denies any dysuria or discharge. NEUROLOGICAL: Denies any headache, dizziness or syncope. -- OBJECTIVE -- VITALS (05/31 13:00 - 06/01 13:00): Temperature C: 36.7 (36.3 - 36.7) Temperature source: Oral Pulse Rate 77 (60 - 77) Respiratory rate: 20 (8 - 44) Blood pressure: 150/79 (118/62 - 150/79) Blood pressure source: Monitor I/Os (05/31 07:00 - 06/01 07:00): Net 550 Intake 550 -EXAM- GENERAL: GENERAL: Not in any distress, but uncomfortable. VITAL SIGNS: oxygen saturation 96% on room air. Weight is 84 kilograms. Body mass index 29. HEENT: Head is atraumatic. Pupils are reactive to light and accommodation. Extraocular muscles intact. NECK: Supple. No thyromegaly. No JVD. CARDIOVASCULAR: S1, S2 audible. LUNGS: Clear to auscultation. ABDOMEN: Distended, bowel sounds audible. Minimal tenderness. MUSCULOSKELETAL: No joint tenderness. EXTREMITIES: No edema, cyanosis or clubbing. Pedal pulses palpable. NEUROLOGIC: No focal deficit. irritable. -- DATA -- MEDICATIONS SODIUM CHLORIDE 0.9% 1000 ML IV .Q24H MAG HYDROX/AL HYDROX/SIMETH 30 ML PO Q4H PRN cloNIDine HCL 0.1 MG PO Q8H PRN DOCUSATE SODIUM 100 MG PO BID HYDROcodone BITARTRATE/APAP 1 TAB PO Q4H PRN METOPROLOL TARTRATE 50 MG PO BID ONDANSETRON 4 MG PO Q6H PRN hydrALAZINE HCL 5 MG IV Q6HR PRN ACETAMINOPHEN 650 MG PO Q4H PRN FOLIC ACID 1 MG PO DAILY ONDANSETRON HCL/PF 4 MG IV Q6H PRN HEPARIN/SOD CHLOR 0.45% 60804 UNITS IV TITRATE chlordiazePOXIDE HCl 25 MG PO BID ASPIRIN 81 MG PO DAILY THIAMINE HCL 100 MG PO DAILY HEPARIN SODIUM,PORCINE 5000 UNIT IV ASDIR PRN traZODone HCL 100 MG PO BEDTIME METOPROLOL TARTRATE 5 MG IV Q6H PRN HEPARIN PHARMACY TO MONITOR 1 EACH IV ASDIR ATORVASTATIN CALCIUM 40 MG PO BEDTIME SODIUM CHLORIDE 0.9% 1000 ML IV .Q24H HYDROmorphone HCL 1 MG IV Q3H PRN HYDROcodone BITARTRATE/APAP 1 TAB PO Q4H PRN NITROGLYCERIN 0.4 MG SL Q5M PRN HEPARIN SODIUM,PORCINE 3000 UNIT IV ASDIR PRN ESCITALOPRAM 20 MG PO DAILY -- QUALITY -- -MEDICATIONS- - I attest that the foregoing medication list in the medical record is true, accurate, and complete to the best of my knowledge. -- ATTESTATION -- CARE ACTIVITIES / CARE COORDINATION: - I have reviewed the history and repeated the carias elements - I have seen and examined this patient - I have reviewed the progress in the clinical course since the last examination - I have discussed the patient's condition with other members of the care team Signed in PatientKeeper by Nnamdi Rachel MD on 06/02/23 at 15:02 at 1502 ATTENTION *EDITS and/or ADDENDA must be made in Patient Keeper for this note. * * Edits and ammendments created in [employer] are not visible * * in Patient Keeper or the legal medical record ([facility]). * RPT #: [id number] END OF REPORT [facility] 2023-06-02 08:50:00 [facility] ([facility]) Cardiology Progress Notes REPORT #: [id number] REPORT STATUS: Signed DATE: 06/02/23 TIME: 0850 PATIENT: KOTA MONTES UNIT #: [id number] ROOM #: P.0414 BED: A : 62 AGE: 62 SEX: M ATTEND: Nnamdi Rachel MD ADM AUTHOR: Camron Patel ATTENTION *EDITS and/or ADDENDA must be made in Patient Keeper for this note. * * Edits and ammendments created in [employer] are not visible * * in Patient Keeper or the legal medical record ([facility]). * -- CO-SIGNATURE -- COMMENTS: I have personally seen and examined the patient independently, and reviewed the patient's history, exam, and all cardiac and laboratory data on 06/02/23. I agree with the history, physical, and the assessment and plan as outlined by Camron Boogie. Mr. Montes is a 62-year-old male with past medical history of coronary artery disease, alcohol abuse, smoker, hypertension, hyperlipidemia, prior PCI to left circumflex in December. He is not admitted with chest pain and shortness of breath. Patient did have some on and off chest pain, however declines to be started on heparin drip. He is undergoing evaluation for CABG versus PCI. Will continue to optimize medications. Signed in PatientKeeper by MALACHI FITZGERALD MD on 06/02/23 at 11:51 -- ASSESSMENT AND PLAN -- PROBLEMS: 1: Coronary artery disease/chest pain A/P: The patient is a 62-year-old gentleman (patient of Dr. Giordano) has a PMHx of coronary artery disease (s/p PCI 2005, 06/2022, 12/24/2022), h/o NM (2005), family history of coronary artery disease, h/o alcohol abuse, nicotine use, hypertension, hyperlipidemia. He underwent percutaneous coronary intervention with rotablation and placement of 2 stents in the LCx on 12/24/[address] Lynch and Dr. Malachi Fitzgerald (see op-note). He was discharged on stable condition on 12/25/22. He presented at an outside emergency room on 04/05/2023 with complaint of chest pain and shortness of breath, and he left against medical advise prior any intervention. He presented today (05/28/23) at [facility] with complaints of shortness of breath and left sided localized sharp chest pain that started earlier today. He reports the symptoms are similar when he had the previous percutaneous coronary interventions. He reports being complaint taking his medications, including DAPT. Workup showed negative troponin, BNP 78, Na 128. EKG shows normal sinus rhythm and left bundle branch block. Chest x-ray showed unremarkable frontal chest radiograph. He was admitted for further evaluation and management. On 05/28/23 night, he reported chest pain and was transferred to CVICU for closer observation. He had coronary angiogram and showed severe multi-vessel disease not amenable for PCI and CABG was recommended on 05/31/[address] Lynch (see op-note). He tolerated the procedure well. He is transferred out to CVICU and is on CVIMU now. - S/p SCA on 05/31/23, showed multi-vessel disease, not amenable for PCI. We will have Dr. Pike to review the films and evaluate the patient for CABG - Started on heparin drip, patient is refusing heparin drip, states he receives Diluadid for chest pain - On aspirin. Brilinta discontinued on 05/31/23 for CABG evaluation - Continue atorvastatin 40mg daily, metoprolol tartrate 50mg BID - He reports SL nitroglycerin does not relieve the chest pain and morphine does not subside the pain -- SUBJECTIVE -- CHIEF COMPLAINT: Chest pain, shortness of breath PATIENT NARRATIVE: Sitting in the chair. He reports intermittent chest pain. He refuses to be on heparin drip, stating "Diluadid is given for chest pain". Seen by Dr. Fitzgerald. No acute events overnight. -REVIEW OF SYSTEMS- GENERAL: Negative for fever, malaise, fatigue. EYES: Negative for blurry vision. No diplopia. EARS/NOSE/THROAT: Negative for sore throat. No otalgia. No rhinorrhea. RESPIRATORY: Negative for dyspnea or wheeze. No cough. CARDIOVASCULAR: Negative for chest pain or palpitations. No extremity swelling. GASTROINTESTINAL: Negative for abdominal pain or nausea. No emesis. No diarrhea. GENITOURINARY: Negative for dysuria, frequency, or urgency. No gross hematuria. MUSCULOSKELETAL: Negative for joint stiffness, pain, or arthralgias. SKIN: Negative for rashes. No pruritus. NEUROLOGICAL: Negative for headache. No vertigo. Denies paresthesias. PSYCHIATRIC: Negative for specific complaints. -- OBJECTIVE -- VITALS (05/31 07:22 - 06/01 07:22): Temperature F: 98.7 (97.9 - 98.7) Temperature C: 36.5 (36.3 - 36.6) Temperature source: Oral Pulse Rate 61 (60 - 83) Respiratory rate: 8 (8 - 44) Blood pressure: 118/70 (118/62 - 180/89) Blood pressure source: Monitor I/Os (05/31 07:00 - 06/01 07:00): Net 550 Intake 550 -EXAM- OTHER: Constitutional: Well developed, well nourished patient, in no acute distress. Derm/Integumentary: Warm and dry with no rashes, sores, or lesions. HEENT: Eyes-sclera clear and white, symmetrical w/ no lag. ENT - Palate and gums pink, mucosa moist, no pallor/cyanosis. Right eye redness Neck: supple with no masses, no thyromegaly, No JVD. Respiratory: Clear to auscultation. Heart: S1S2+, Regular Rate and Rhythm, No murmurs, rubs, or gallops. Gastrointestinal: + Bowel Sounds all quadrants. Soft, nontender with no masses or organomegaly; No HJR. Musculoskeletal: Equal strength in all extremities. No weakness. Neurology: Alert and oriented X 3. Calm, cooperative affect. No focal deficits. Extremities: + peripheral pulses. No clubbing, cyanosis. No lower extremity edema. -- DATA -- MEDICATIONS SODIUM CHLORIDE 0.9% 1000 ML IV .Q24H MAG HYDROX/AL HYDROX/SIMETH 30 ML PO Q4H PRN cloNIDine HCL 0.1 MG PO Q8H PRN DOCUSATE SODIUM 100 MG PO BID HYDROcodone BITARTRATE/APAP 1 TAB PO Q4H PRN METOPROLOL TARTRATE 50 MG PO BID ONDANSETRON 4 MG PO Q6H PRN hydrALAZINE HCL 5 MG IV Q6HR PRN ACETAMINOPHEN 650 MG PO Q4H PRN FOLIC ACID 1 MG PO DAILY ONDANSETRON HCL/PF 4 MG IV Q6H PRN HEPARIN/SOD CHLOR 0.45% 16226 UNITS IV TITRATE chlordiazePOXIDE HCl 25 MG PO BID ASPIRIN 81 MG PO DAILY THIAMINE HCL 100 MG PO DAILY HEPARIN SODIUM,PORCINE 5000 UNIT IV ASDIR PRN traZODone HCL 100 MG PO BEDTIME METOPROLOL TARTRATE 5 MG IV Q6H PRN HEPARIN PHARMACY TO MONITOR 1 EACH IV ASDIR ATORVASTATIN CALCIUM 40 MG PO BEDTIME SODIUM CHLORIDE 0.9% 1000 ML IV .Q24H HYDROmorphone HCL 1 MG IV Q3H PRN HYDROcodone BITARTRATE/APAP 1 TAB PO Q4H PRN NITROGLYCERIN 0.4 MG SL Q5M PRN HEPARIN SODIUM,PORCINE 3000 UNIT IV ASDIR PRN ESCITALOPRAM 20 MG PO DAILY LABS BLOOD GAS W/ELECTROLYTES (06/01/23 11:59) ARTERIAL BLOOD GAS PH 7.37 ARTERIAL BLOOD GAS PCO2 31.9 L ARTERIAL BLOOD GAS PO2 87.5 BICARBONATE TOTAL HCO3 17.8 L BASE EXCESS -6.8 L ABG O2 SATURATION 96.8 ARTERIAL FIO2 40.0 ABG VENT MODE NASAL CANNULA ALLENS TEST NOT APPLICABLE SODIUM (POC) 135 POTASSIUM (POC) 4.19 CHLORIDE (ARTERIAL) 103 GLUCOSE 79 IONIZED CALCIUM 1.11 L POC LACTIC ACID 4.55 H TOTAL HGB 8.5 L OXYHEMOGLOBIN 96.2 CARBOXYHEMOGLOBIN 0.6 METHEMOGLOBIN <0.8 HHb 3.2 TCO2 ARTERIAL 18.8 L -- ATTESTATION -- CARE ACTIVITIES / CARE COORDINATION: - I have reviewed the history and repeated the carias elements - I have seen and examined this patient - I have reviewed the progress in the clinical course since the last examination - I have discussed the patient's condition with other members of the care team ADDITIONAL DETAIL: Plan of care discussed with Dr. Malachi Fitzgerald Signed in PatientKeeper by CAMRON PATEL on 06/02/23 at 11:28 Cosigned by MALACHI FITZGERALD MD on 06/02/23 at 11:51 at 1151 at 1151 ATTENTION *EDITS and/or ADDENDA must be made in Patient Keeper for this note. * * Edits and ammendments created in [employer] are not visible * * in Patient Keeper or the legal medical record ([facility]). * RPT #: [id number] END OF REPORT [facility] 2023-06-01 13:53:00 [facility] ([facility]) Hospitalist Progress Note REPORT #: [id number] REPORT STATUS: Signed DATE: 06/01/23 TIME: 1353 PATIENT: KOTA MONTES UNIT #: [id number] ROOM #: P.0414 BED: A : 62 AGE: 62 SEX: M ATTEND: Nnamdi Rachel MD [facility] AUTHOR: Nnamdi Rachel MD ATTENTION *EDITS and/or ADDENDA must be made in Patient Keeper for this note. * * Edits and ammendments created in [employer] are not visible * * in Patient Keeper or the legal medical record ([facility]). * -- ASSESSMENT AND PLAN -- GENERAL ASSESSMENT: ASSESSMENT AND PLAN: 1. Recurrent chest pain, in a patient with a known history of severe multivessel coronary artery disease, status post multiple interventions. Serial cardiac enzymes are negative and myocardial infarction has been ruled out. I will continue aspirin, Brilinta, metoprolol and atorvastatin. selective coronary angiogram by Dr. Kurtis Lynch 05/30 revealing severe multivessel coronary artery disease, not amenable to further angioplasty. CABG evaluation has been advised. 2. Abdominal distention and pain, rule out ileus/bowel obstruction. Abdominal x-ray non diagnostic. 3. Hypertension. Continue metoprolol. 4. Hyperlipidemia. Continue atorvastatin 40 mg daily. 5. Alcohol abuse. Delirium tremens prophylaxis. 6. Nicotine dependence, we will offer a Nicoderm patch. 7. Anxiety/depression, not otherwise specified. Continue escitalopram. 8. Severe hyponatremia. The patient has previously had similar hyponatremia and etiology is unclear. We will get additional labs. 9. Gross noncompliance with instructions and therapy ADDITIONAL COMMENTS: Downgraded from CVICU because of adamantly refusing interventions. selective coronary angiogram by Dr. Kutris Lynch 05/30 revealing severe multivessel coronary artery disease, not amenable to further angioplasty. CABG evaluation has been advised. pt seen with Phil MORENO -- SUBJECTIVE -- HPI: This 62-year-old gentleman has a past medical history significant for hypertension, hyperlipidemia, myocardial infarction in 2005, angioplasty with stent placement x2 to the RCA in 2005, complex high risk PCI with one stent placement to the RCA and PTCA to the left circumflex with atherectomy and intravenous lithotripsy in 06/2022, status post rotablation and two stents placed to the left circumflex by Dr. Kurtis Lynch on 12/24/2022. On 04/05/2023, he was at an outside emergency room with complaints of chest pain and shortness of breath, but left against medical advice prior to any intervention. He presented to the [facility] Emergency Room on 05/28/2023 with complaints of chest pain and shortness of breath that started earlier this morning, during inactivity. He also reported a cough for the past several days, but denied any fever or known sick contacts. Later after eating his lunch, he reported significant abdominal distention and bloating with abdominal pain. In the emergency room, troponin was negative and EKG showed sinus rhythm, left bundle branch block. He has been admitted for further management. PATIENT NARRATIVE: 05/28: The patient was initially moved down to CV IMU for cardiac management. He continued to have persistent pain despite being started on intravenous heparin infusion. He demanded Dilaudid earlier than the designated time. He was, as previously, disrespectful and rude to the staff. He was transition to CVICU for closer monitoring and initiation of nitroglycerin infusion. The patient refused nitroglycerin infusion, sublingual tablets. Today he also refused heparin infusion, refused blood draws for any reason. He repeatedly threatened to leave AGAINST MEDICAL ADVICE. He is being moved back to CV IMU status as he is not on nitroglycerin drip at this time, and he wants more freedom. He needs selective coronary angiogram, the earliest expected is 05/30. as per state fire marshal: Patient declining all interventions, wanting to leave AMA unless downgraded, chest pain unlikely cardiac, enzymes negative and EKG without concerning features. 05/29: Once again, the patient threatened to walk out AGAINST MEDICAL ADVICE multiple times today. Refused heparin infusion and was off it for about 12 hours. Towards evening he was agreeable and got back on heparin. Plan is for selective coronary angiogram and possible intervention tomorrow. 05/30: He underwent selective coronary angiogram by Dr. Kurtis Lynch 05/30 revealing severe multivessel coronary artery disease, not amenable to further angioplasty. CABG evaluation has been advised. As usual, the patient announced that he is going to leave after the rest period is over. He started ambulating even before the rest period was over. Noncompliance appears to be his response to everything. Apparently his son came by and was able to convince him to stay and get the treatment. It is unclear as to how long he will heed this advice. He now says that morphine is just like "water". He wants to go back to Dilaudid. I have switched him to intravenous Dilaudid 1 mg every 3 hours as needed for recurrent chest pain. 05/31: The patient remains remarkably consistent in his insulting attitude towards staff in general. Overnight he displayed racial discrimination against the nurse, and told her not to touch him. He got up and started walking before the resting time after the heart catheterization was over. FemoStop had to be applied to the groin to control the bleeding. Repeatedly announces that he is going to leave AGAINST MEDICAL ADVICE. A little later he says that okay he will stay for the evaluation. Physically transferred to CV IMU. Plan is for surgical/CABG evaluation. -REVIEW OF SYSTEMS- GENERAL: CONSTITUTIONAL: No fever or chills. No weight gain or weight loss. HEENT: Some congestion and cough for the past few days. CARDIOPULMONARY: Shortness of breath and acute chest pain starting earlier in the day. GASTROINTESTINAL: Abdominal distention and pain and bloating starting on the day of admission. Nausea. No vomiting. No constipation, but loose stools. GENITOURINARY: Denies any dysuria or discharge. NEUROLOGICAL: Denies any headache, dizziness or syncope. -- OBJECTIVE -- VITALS (05/30 13:53 - 05/31 13:53): Temperature F: 98.3 Temperature source: Oral Pulse Rate 78 (72 - 78) Respiratory rate: 20 (11 - 20) Blood pressure: 141/63 (117/56 - 141/63) Blood pressure source: Monitor I/Os (05/30 07:00 - 05/31 07:00): Net -325 Intake 250 Output 575 -EXAM- GENERAL: GENERAL: Not in any distress, but uncomfortable. VITAL SIGNS: oxygen saturation 96% on room air. Weight is 84 kilograms. Body mass index 29. HEENT: Head is atraumatic. Pupils are reactive to light and accommodation. Extraocular muscles intact. NECK: Supple. No thyromegaly. No JVD. CARDIOVASCULAR: S1, S2 audible. LUNGS: Clear to auscultation. ABDOMEN: Distended, bowel sounds audible. Minimal tenderness. MUSCULOSKELETAL: No joint tenderness. EXTREMITIES: No edema, cyanosis or clubbing. Pedal pulses palpable. NEUROLOGIC: No focal deficit. irritable. -- DATA -- MEDICATIONS SODIUM CHLORIDE 0.9% 1000 ML IV .Q24H MAG HYDROX/AL HYDROX/SIMETH 30 ML PO Q4H PRN cloNIDine HCL 0.1 MG PO Q8H PRN DOCUSATE SODIUM 100 MG PO BID HYDROcodone BITARTRATE/APAP 1 TAB PO Q4H PRN METOPROLOL TARTRATE 50 MG PO BID ONDANSETRON 4 MG PO Q6H PRN hydrALAZINE HCL 5 MG IV Q6HR PRN ACETAMINOPHEN 650 MG PO Q4H PRN FOLIC ACID 1 MG PO DAILY ONDANSETRON HCL/PF 4 MG IV Q6H PRN HEPARIN/SOD CHLOR 0.45% 30353 UNITS IV TITRATE chlordiazePOXIDE HCl 25 MG PO BID ASPIRIN 81 MG PO DAILY THIAMINE HCL 100 MG PO DAILY HEPARIN SODIUM,PORCINE 5000 UNIT IV ASDIR PRN traZODone HCL 100 MG PO BEDTIME METOPROLOL TARTRATE 5 MG IV Q6H PRN HEPARIN PHARMACY TO MONITOR 1 EACH IV ASDIR ATORVASTATIN CALCIUM 40 MG PO BEDTIME SODIUM CHLORIDE 0.9% 1000 ML IV .Q24H HYDROmorphone HCL 1 MG IV Q3H PRN HYDROcodone BITARTRATE/APAP 1 TAB PO Q4H PRN NITROGLYCERIN 0.4 MG SL Q5M PRN HEPARIN SODIUM,PORCINE 3000 UNIT IV ASDIR PRN ESCITALOPRAM 20 MG PO DAILY LABS BLOOD GAS W/ELECTROLYTES (06/01/23 11:59) ARTERIAL BLOOD GAS PH 7.37 ARTERIAL BLOOD GAS PCO2 31.9 L ARTERIAL BLOOD GAS PO2 87.5 BICARBONATE TOTAL HCO3 17.8 L BASE EXCESS -6.8 L ABG O2 SATURATION 96.8 ARTERIAL FIO2 40.0 ABG VENT MODE NASAL CANNULA ALLENS TEST NOT APPLICABLE SODIUM (POC) 135 POTASSIUM (POC) 4.19 CHLORIDE (ARTERIAL) 103 GLUCOSE 79 IONIZED CALCIUM 1.11 L POC LACTIC ACID 4.55 H TOTAL HGB 8.5 L OXYHEMOGLOBIN 96.2 CARBOXYHEMOGLOBIN 0.6 METHEMOGLOBIN <0.8 HHb 3.2 TCO2 ARTERIAL 18.8 L -- QUALITY -- -MEDICATIONS- - I attest that the foregoing medication list in the medical record is true, accurate, and complete to the best of my knowledge. -- ATTESTATION -- CARE ACTIVITIES / CARE COORDINATION: - I have reviewed the history and repeated the carias elements - I have seen and examined this patient - I have reviewed the progress in the clinical course since the last examination - I have discussed the patient's condition with other members of the care team Signed in PatientKeeper by Nnamdi Rachel MD on 06/01/23 at 18:08 at 1808 ATTENTION *EDITS and/or ADDENDA must be made in Patient Keeper for this note. * * Edits and ammendments created in [employer] are not visible * * in Patient Keeper or the legal medical record ([facility]). * RPT #: [id number] END OF REPORT [facility] 2023-06-01 08:52:00 [facility] ([facility]) Cardiology Progress Notes REPORT #: [id number] REPORT STATUS: Signed DATE: 06/01/23 TIME: 851 PATIENT: KOTA MONTES UNIT #: [id number] ROOM #: P.0303 BED: 1 : 62 AGE: 62 SEX: M ATTEND: Nnamdi Rachel MD ADM AUTHOR: Liu Patricia DO CF1 ATTENTION *EDITS and/or ADDENDA must be made in Patient Keeper for this note. * * Edits and ammendments created in [employer] are not visible * * in Patient Keeper or the legal medical record ([facility]). * -- CO-SIGNATURE -- COMMENTS: I have personally seen and examined the patient independently, and reviewed the patient's history, exam, and all cardiac and laboratory data on 06/01/23. I agree with the history, physical, and the assessment and plan as outlined by Liu Johnson DO, Cardiovascular Fellow. Signed in PatientKeeper by MALACHI FITZGERALD MD on 06/01/23 at 14:30 -- ASSESSMENT AND PLAN -- HOSPITAL COURSE TO DATE: 05/28: upgraded overnight for unstable angina on nitro drip, plan for PCI Monday 05/29: stable 05/30: LHC showed severe multivessel disease. 05/31: Pt downgraded. CTS eval pending. GENERAL ASSESSMENT: The patient is a 62-year-old gentleman (patient of Dr. Giordano) has a PMHx of coronary artery disease (s/p PCI 2005, 06/2022, 12/24/2022), h/o NM (2005), family history of coronary artery disease, h/o alcohol abuse, nicotine use, hypertension, hyperlipidemia. He underwent percutaneous coronary intervention with rotablation and placement of 2 stents in the LCx on 12/24/[address] Lynch and Dr. Malachi Fitzgerald (see op-note). He was discharged on stable condition on 12/25/22. He presented at an outside emergency room on 04/05/2023 with complaint of chest pain and shortness of breath, and he left against medical advise prior any intervention. He presented today (05/28/23) at [facility] with complaints of shortness of breath and left sided localized sharp chest pain that started earlier today. He reports the symptoms are similar when he had the previous percutaneous coronary interventions. He reports being complaint taking his medications, including DAPT. Workup showed negative troponin, BNP 78, Na 128. EKG shows normal sinus rhythm and left bundle branch block. Chest x-ray showed unremarkable frontal chest radiograph. He was admitted for further evaluation and management. PROBLEMS: 1: Coronary artery disease/chest pain A/P: - HEART score 4/5 - AHA C, NYHA 3 - On DAPT with aspirin and brilinta - On atorvastatin 40mg daily, metoprolol tartrate 50mg BID - Start heparin drip - He reports SL nitroglycerin does not relieve the chest pain and morphine does not subside the pain - On IV dilaudid as needed for pain, managed by primary team - cont nitro drip, wean off as tolerated - SCA (05/30) revealed severe multivessel coronary artery disease, not amenable to further angioplasty. - CABG evaluation pending. -- SUBJECTIVE -- CHIEF COMPLAINT: DRISS this AM. KARTIK overnight. No new complaints. Tele: NSR 75bpm -REVIEW OF SYSTEMS- COMMENT: 10 point ROS negative unless noted. -- OBJECTIVE -- VITALS (05/30 08:52 - 05/31 08:52): Temperature F: 98.3 (98.3 - 98.4) Temperature source: Oral Pulse Rate 78 (72 - 78) Respiratory rate: 20 (11 - 20) Blood pressure: 141/63 (117/56 - 141/63) Blood pressure source: Monitor I/Os (05/30 07:00 - 05/31 07:00): Net -325 Intake 250 Output 575 -EXAM- GENERAL: Well developed, well nourished, in no apparent distress. HEAD: Normocephalic, atraumatic. EARS: grossly normal hearing. NOSE: No deformity, no discharge MOUTH: Oropharynx without deformities or lesions, normal mucosa. CHEST: Grossly normal appearance. LUNGS: Clear bilaterally with normal respiratory effort. HEART: Regular rate and rhythm, normal S1, S2, no murmurs EXTREMITIES: No clubbing, no cyanosis, no edema. NEUROLOGICAL: No focal deficits, cranial nerves II-XII grossly intact PSYCHIATRIC: Alert and oriented to time, person, place. -- DATA -- MEDICATIONS SODIUM CHLORIDE 0.9% 1000 ML IV .Q24H MAG HYDROX/AL HYDROX/SIMETH 30 ML PO Q4H PRN cloNIDine HCL 0.1 MG PO Q8H PRN DOCUSATE SODIUM 100 MG PO BID HYDROcodone BITARTRATE/APAP 1 TAB PO Q4H PRN METOPROLOL TARTRATE 50 MG PO BID ONDANSETRON 4 MG PO Q6H PRN hydrALAZINE HCL 5 MG IV Q6HR PRN ACETAMINOPHEN 650 MG PO Q4H PRN FOLIC ACID 1 MG PO DAILY ONDANSETRON HCL/PF 4 MG IV Q6H PRN HEPARIN/SOD CHLOR 0.45% 99436 UNITS IV TITRATE chlordiazePOXIDE HCl 25 MG PO BID ASPIRIN 81 MG PO DAILY THIAMINE HCL 100 MG PO DAILY HEPARIN SODIUM,PORCINE 5000 UNIT IV ASDIR PRN traZODone HCL 100 MG PO BEDTIME METOPROLOL TARTRATE 5 MG IV Q6H PRN HEPARIN PHARMACY TO MONITOR 1 EACH IV ASDIR ATORVASTATIN CALCIUM 40 MG PO BEDTIME SODIUM CHLORIDE 0.9% 1000 ML IV .Q24H HYDROmorphone HCL 1 MG IV Q3H PRN HYDROcodone BITARTRATE/APAP 1 TAB PO Q4H PRN NITROGLYCERIN 0.4 MG SL Q5M PRN HEPARIN SODIUM,PORCINE 3000 UNIT IV ASDIR PRN ESCITALOPRAM 20 MG PO DAILY Signed in PatientKeeper by Liu Patricia DO CF1 on 06/01/23 at 12:44 Cosigned by MALACHI FITZGERALD MD on 06/01/23 at 14:30 at 1430 at 1430 ATTENTION *EDITS and/or ADDENDA must be made in Patient Keeper for this note. * * Edits and ammendments created in [employer] are not visible * * in Patient Keeper or the legal medical record (HPF). * [facility] #: [id number] END OF REPORT [facility] 2023-05-31 17:19:00 [facility] ([facility]) Hospitalist Progress Note REPORT #: [id number] REPORT STATUS: Signed DATE: 05/31/23 TIME: 1718 PATIENT: KOTA MONTES UNIT #: [id number] ROOM #: P.0303 BED: 1 : 61 AGE: 62 SEX: M ATTEND: Nnamdi Rachel MD ADM AUTHOR: Nnamdi Rachel MD ATTENTION *EDITS and/or ADDENDA must be made in Patient Keeper for this note. * * Edits and ammendments created in [employer] are not visible * * in Patient Keeper or the legal medical record (HPF). * -- ASSESSMENT AND PLAN -- GENERAL ASSESSMENT: ASSESSMENT AND PLAN: 1. Recurrent chest pain, in a patient with a known history of severe multivessel coronary artery disease, status post multiple interventions. Serial cardiac enzymes are negative and myocardial infarction has been ruled out. I will continue aspirin, Brilinta, metoprolol and atorvastatin. selective coronary angiogram by Dr. Kurtis Lynch 05/30 revealing severe multivessel coronary artery disease, not amenable to further angioplasty. CABG evaluation has been advised. 2. Abdominal distention and pain, rule out ileus/bowel obstruction. Abdominal x-ray non diagnostic. 3. Hypertension. Continue metoprolol. 4. Hyperlipidemia. Continue atorvastatin 40 mg daily. 5. Alcohol abuse. Delirium tremens prophylaxis. 6. Nicotine dependence, we will offer a Nicoderm patch. 7. Anxiety/depression, not otherwise specified. Continue escitalopram. 8. Severe hyponatremia. The patient has previously had similar hyponatremia and etiology is unclear. We will get additional labs. 9. Gross noncompliance with instructions and therapy ADDITIONAL COMMENTS: Downgraded from CVICU because of adamantly refusing interventions. selective coronary angiogram by Dr. Kurtis Lynch 05/30 revealing severe multivessel coronary artery disease, not amenable to further angioplasty. CABG evaluation has been advised. pt seen with Jose Raul MORENO -- SUBJECTIVE -- HPI: This 62-year-old gentleman has a past medical history significant for hypertension, hyperlipidemia, myocardial infarction in 2005, angioplasty with stent placement x2 to the RCA in 2005, complex high risk PCI with one stent placement to the RCA and PTCA to the left circumflex with atherectomy and intravenous lithotripsy in 06/2022, status post rotablation and two stents placed to the left circumflex by Dr. Kurtis Lynch on 12/24/2022. On 04/05/2023, he was at an outside emergency room with complaints of chest pain and shortness of breath, but left against medical advice prior to any intervention. He presented to the [facility] Emergency Room on 05/28/2023 with complaints of chest pain and shortness of breath that started earlier this morning, during inactivity. He also reported a cough for the past several days, but denied any fever or known sick contacts. Later after eating his lunch, he reported significant abdominal distention and bloating with abdominal pain. In the emergency room, troponin was negative and EKG showed sinus rhythm, left bundle branch block. He has been admitted for further management. PATIENT NARRATIVE: 05/28: The patient was initially moved down to CV IMU for cardiac management. He continued to have persistent pain despite being started on intravenous heparin infusion. He demanded Dilaudid earlier than the designated time. He was, as previously, disrespectful and rude to the staff. He was transition to CVICU for closer monitoring and initiation of nitroglycerin infusion. The patient refused nitroglycerin infusion, sublingual tablets. Today he also refused heparin infusion, refused blood draws for any reason. He repeatedly threatened to leave AGAINST MEDICAL ADVICE. He is being moved back to CV IMU status as he is not on nitroglycerin drip at this time, and he wants more freedom. He needs selective coronary angiogram, the earliest expected is 05/30. as per state fire marshal: Patient declining all interventions, wanting to leave AMA unless downgraded, chest pain unlikely cardiac, enzymes negative and EKG without concerning features. 05/29: Once again, the patient threatened to walk out AGAINST MEDICAL ADVICE multiple times today. Refused heparin infusion and was off it for about 12 hours. Towards evening he was agreeable and got back on heparin. Plan is for selective coronary angiogram and possible intervention tomorrow. 05/30: He underwent selective coronary angiogram by Dr. Kurtis Lynch 05/30 revealing severe multivessel coronary artery disease, not amenable to further angioplasty. CABG evaluation has been advised. As usual, the patient announced that he is going to leave after the rest period is over. He started ambulating even before the rest period was over. Noncompliance appears to be his response to everything. Apparently his son came by and was able to convince him to stay and get the treatment. It is unclear as to how long he will heed this advice. He now says that morphine is just like "water". He wants to go back to Dilaudid. I have switched him to intravenous Dilaudid 1 mg every 3 hours as needed for recurrent chest pain. -REVIEW OF SYSTEMS- GENERAL: CONSTITUTIONAL: No fever or chills. No weight gain or weight loss. HEENT: Some congestion and cough for the past few days. CARDIOPULMONARY: Shortness of breath and acute chest pain starting earlier in the day. GASTROINTESTINAL: Abdominal distention and pain and bloating starting on the day of admission. Nausea. No vomiting. No constipation, but loose stools. GENITOURINARY: Denies any dysuria or discharge. NEUROLOGICAL: Denies any headache, dizziness or syncope. -- OBJECTIVE -- VITALS (05/29 17:19 - 05/30 17:19): Temperature F: 98.4 (98.4 - 98.6) Temperature source: Oral Pulse Rate 74 (72 - 78) Respiratory rate: 16 (16 - 19) Blood pressure: 121/61 Blood pressure source: Monitor I/Os (05/29 07:00 - 05/30 07:00): Net -101.60 Intake 1,098.40 Output 1,200 -EXAM- GENERAL: GENERAL: Not in any distress, but uncomfortable. VITAL SIGNS: oxygen saturation 96% on room air. Weight is 84 kilograms. Body mass index 29. HEENT: Head is atraumatic. Pupils are reactive to light and accommodation. Extraocular muscles intact. NECK: Supple. No thyromegaly. No JVD. CARDIOVASCULAR: S1, S2 audible. LUNGS: Clear to auscultation. ABDOMEN: Distended, bowel sounds audible. Minimal tenderness. MUSCULOSKELETAL: No joint tenderness. EXTREMITIES: No edema, cyanosis or clubbing. Pedal pulses palpable. NEUROLOGIC: No focal deficit. irritable. -- DATA -- MEDICATIONS SODIUM CHLORIDE 0.9% 1000 ML IV .Q24H morphine SULFATE 4 MG IV Q3H PRN MAG HYDROX/AL HYDROX/SIMETH 30 ML PO Q4H PRN cloNIDine HCL 0.1 MG PO Q8H PRN DOCUSATE SODIUM 100 MG PO BID HYDROcodone BITARTRATE/APAP 1 TAB PO Q4H PRN METOPROLOL TARTRATE 50 MG PO BID ONDANSETRON 4 MG PO Q6H PRN hydrALAZINE HCL 5 MG IV Q6HR PRN ACETAMINOPHEN 650 MG PO Q4H PRN FOLIC ACID 1 MG PO DAILY ONDANSETRON HCL/PF 4 MG IV Q6H PRN HEPARIN/SOD CHLOR 0.45% 49377 UNITS IV TITRATE chlordiazePOXIDE HCl 25 MG PO BID ASPIRIN 81 MG PO DAILY THIAMINE HCL 100 MG PO DAILY HEPARIN SODIUM,PORCINE 5000 UNIT IV ASDIR PRN traZODone HCL 100 MG PO BEDTIME METOPROLOL TARTRATE 5 MG IV Q6H PRN HEPARIN PHARMACY TO MONITOR 1 EACH IV ASDIR ATORVASTATIN CALCIUM 40 MG PO BEDTIME SODIUM CHLORIDE 0.9% 1000 ML IV .Q24H HYDROcodone BITARTRATE/APAP 1 TAB PO Q4H PRN NITROGLYCERIN 0.4 MG SL Q5M PRN HEPARIN SODIUM,PORCINE 3000 UNIT IV ASDIR PRN ESCITALOPRAM 20 MG PO DAILY LABS COMPREHENSIVE METABOLIC PANEL (05/31/23 04:00) SODIUM 132 L POTASSIUM 5.2 D H CHLORIDE 104 CARBON DIOXIDE 25 GLUCOSE 99 BLOOD UREA NITROGEN 11 GLOMERULAR FILTRATION RATE >=60 max estimate CREATININE 1.00 TOTAL PROTEIN 6.6 ALBUMIN 4.3 CALCIUM 8.7 BILIRUBIN TOTAL 0.5 SGOT/AST 35 H SGPT/ALT 22 ALKALINE PHOSPHATASE 80.0 -- QUALITY -- -MEDICATIONS- - I attest that the foregoing medication list in the medical record is true, accurate, and complete to the best of my knowledge. -- ATTESTATION -- CARE ACTIVITIES / CARE COORDINATION: - I have reviewed the history and repeated the carias elements - I have seen and examined this patient - I have reviewed the progress in the clinical course since the last examination - I have discussed the patient's condition with other members of the care team Signed in PatientKeeper by Nnamdi Rachel MD on 05/31/23 at 17:53 at 1753 ATTENTION *EDITS and/or ADDENDA must be made in Patient Keeper for this note. * * Edits and ammendments created in [facility] are not visible * * in Patient Keeper or the legal medical record ([facility]). * RPT #: [id number] END OF REPORT [facility] 2023-05-31 13:10:00 [facility] ([facility]) Cardiology Clinical Note REPORT #: [id number] REPORT STATUS: Signed DATE: 05/31/23 TIME: 1310 PATIENT: KOTA MONTES UNIT #: [id number] ROOM #: P.0414 BED: A : 61 AGE: 62 SEX: M ATTEND: Nnamdi Rachel MD ADM AUTHOR: Camron Patel ATTENTION *EDITS and/or ADDENDA must be made in Patient Keeper for this note. * * Edits and ammendments created in [facility] are not visible * * in Patient Keeper or the legal medical record ([facility]). * -- NOTATION -- PURPOSE: S/p SCA NOTATION: The patient underwent selective coronary angiogram today. Dr. Lynch met with the patient and his son post-procedure, discussed the findings and treatment option, they verbalized understanding and all of their questions have been addressed. No post-op issues reported. Patient transferred to the floor (CVICU) and post-op care resumed by CVICU team. -- ATTESTATION -- CARE ACTIVITIES / CARE COORDINATION: - I have reviewed the history and repeated the carias elements - I have seen and examined this patient - I have reviewed the progress in the clinical course since the last examination - I have discussed the patient's condition with other members of the care team ADDITIONAL DETAIL: Plan of care discussed with Dr. Kurtis Lynch Signed in PatientKeeper by CAMRON PATEL on 05/31/23 at 19:06 Cosigned by KURTIS LYNCH MD on 06/08/23 at 11:42 at 1142 at 1142 ATTENTION *EDITS and/or ADDENDA must be made in Patient Keeper for this note. * * Edits and ammendments created in [facility] are not visible * * in Patient Keeper or the legal medical record (HPF). * RPT #: [id number] END OF REPORT [facility] 2023-05-31 07:41:00 [facility] ([facility]) Cardiology Progress Notes REPORT #: [id number] REPORT STATUS: Signed DATE: 05/31/23 TIME: 740 PATIENT: KTOA MONTES UNIT #: [id number] ROOM #: P.0414 BED: A : 61 AGE: 62 SEX: M ATTEND: Nnamdi Rachel MD ADM AUTHOR: Hanh Mcgraw DO CF1 ATTENTION *EDITS and/or ADDENDA must be made in Patient Keeper for this note. * * Edits and ammendments created in [employer] are not visible * * in Patient Keeper or the legal medical record (HPF). * -- CO-SIGNATURE -- COMMENTS: I have seen and examined the patient with the business department chair fellow Dr. Hanh Mcgraw MD on 05/31/23. I have reviewed all the clinical information, lab investigations, and imaging data. I agree with the following examination, findings, assessment and plan. I was present and supervised. Signed in PatientKeeper by KURTIS LYNCH MD on 06/08/23 at 12:05 -- ASSESSMENT AND PLAN -- HOSPITAL COURSE TO DATE: 05/28: upgraded overnight for unstable angina on nitro drip, plan for PCI Monday 05/29: stable 05/30: plan for PCI GENERAL ASSESSMENT: The patient is a 62-year-old gentleman (patient of Dr. Giordano) has a PMHx of coronary artery disease (s/p PCI 2005, 06/2022, 12/24/2022), h/o NM (2005), family history of coronary artery disease, h/o alcohol abuse, nicotine use, hypertension, hyperlipidemia. He underwent percutaneous coronary intervention with rotablation and placement of 2 stents in the LCx on 12/24/[address] Lynch and Dr. Malachi Fitzgerald (see op-note). He was discharged on stable condition on 12/25/22. He presented at an outside emergency room on 04/05/2023 with complaint of chest pain and shortness of breath, and he left against medical advise prior any intervention. He presented today (05/28/23) at [facility] with complaints of shortness of breath and left sided localized sharp chest pain that started earlier today. He reports the symptoms are similar when he had the previous percutaneous coronary interventions. He reports being complaint taking his medications, including DAPT. Workup showed negative troponin, BNP 78, Na 128. EKG shows normal sinus rhythm and left bundle branch block. Chest x-ray showed unremarkable frontal chest radiograph. He was admitted for further evaluation and management. PROBLEMS: 1: Coronary artery disease/chest pain A/P: - HEART score 4/5 - AHA C, NYHA 3 - On DAPT with aspirin and brilinta - On atorvastatin 40mg daily, metoprolol tartrate 50mg BID - Start heparin drip - He reports SL nitroglycerin does not relieve the chest pain and morphine does not subside the pain - On IV dilaudid as needed for pain, managed by primary team - cont nitro drip, wean off as tolerated - Spoke with Dr. Lynch and plan for SCA with possible PCI 05/31/2023 -- discussed risks and benefits of procedure. Patient verbally consented. All questions answered. -- SUBJECTIVE -- CHIEF COMPLAINT: DRISS this AM. KARTIK overnight. No new complaints. Tele: NSR 75bpm -REVIEW OF SYSTEMS- COMMENT: 10 point ROS negative unless noted. -- OBJECTIVE -- VITALS (05/29 07:41 - 05/30 07:41): Temperature F: 98.6 (97.8 - 98.6) Temperature source: Oral Pulse Rate 78 (58 - 78) Respiratory rate: 17 (10 - 19) Blood pressure: 121/61 (119/56 - 130/74) Blood pressure source: Monitor I/Os (05/29 07:00 - 05/30 07:00): Net -101.60 Intake 1,098.40 Output 1,200 -EXAM- GENERAL: Well developed, well nourished, in no apparent distress. HEAD: Normocephalic, atraumatic. EARS: grossly normal hearing. NOSE: No deformity, no discharge MOUTH: Oropharynx without deformities or lesions, normal mucosa. CHEST: Grossly normal appearance. LUNGS: Clear bilaterally with normal respiratory effort. HEART: Regular rate and rhythm, normal S1, S2, no murmurs EXTREMITIES: No clubbing, no cyanosis, no edema. NEUROLOGICAL: No focal deficits, cranial nerves II-XII grossly intact PSYCHIATRIC: Alert and oriented to time, person, place. -- DATA -- MEDICATIONS SODIUM CHLORIDE 0.9% 1000 ML IV .Q24H morphine SULFATE 4 MG IV Q3H PRN MAG HYDROX/AL HYDROX/SIMETH 30 ML PO Q4H PRN cloNIDine HCL 0.1 MG PO Q8H PRN DOCUSATE SODIUM 100 MG PO BID HYDROcodone BITARTRATE/APAP 1 TAB PO Q4H PRN METOPROLOL TARTRATE 50 MG PO BID ONDANSETRON 4 MG PO Q6H PRN TICAGRELOR 90 MG PO Q12HR hydrALAZINE HCL 5 MG IV Q6HR PRN ACETAMINOPHEN 650 MG PO Q4H PRN FOLIC ACID 1 MG PO DAILY ONDANSETRON HCL/PF 4 MG IV Q6H PRN HEPARIN/SOD CHLOR 0.45% 55824 UNITS IV TITRATE chlordiazePOXIDE HCl 25 MG PO BID ASPIRIN 81 MG PO DAILY THIAMINE HCL 100 MG PO DAILY HEPARIN SODIUM,PORCINE 5000 UNIT IV ASDIR PRN traZODone HCL 100 MG PO BEDTIME METOPROLOL TARTRATE 5 MG IV Q6H PRN HEPARIN PHARMACY TO MONITOR 1 EACH IV ASDIR ATORVASTATIN CALCIUM 40 MG PO BEDTIME SODIUM CHLORIDE 0.9% 1000 ML IV .Q24H HYDROcodone BITARTRATE/APAP 1 TAB PO Q4H PRN NITROGLYCERIN 0.4 MG SL Q5M PRN HEPARIN SODIUM,PORCINE 3000 UNIT IV ASDIR PRN ESCITALOPRAM 20 MG PO DAILY LABS COMPREHENSIVE METABOLIC PANEL (05/31/23 04:00) SODIUM 132 L POTASSIUM 5.2 D H CHLORIDE 104 CARBON DIOXIDE 25 GLUCOSE 99 BLOOD UREA NITROGEN 11 GLOMERULAR FILTRATION RATE >=60 max estimate CREATININE 1.00 TOTAL PROTEIN 6.6 ALBUMIN 4.3 CALCIUM 8.7 BILIRUBIN TOTAL 0.5 SGOT/AST 35 H SGPT/ALT 22 ALKALINE PHOSPHATASE 80.0 PTT (05/30/23 15:40) THROMBOPLASTIN TIME PARTIAL 29.0 D Signed in PatientKeeper by Hanh Mcgraw DO CF1 on 05/31/23 at 07:42 Cosigned by KURTIS LYNCH MD on 06/08/23 at 12:05 at 1205 at 1205 ATTENTION *EDITS and/or ADDENDA must be made in Patient Keeper for this note. * * Edits and ammendments created in [employer] are not visible * * in Patient Keeper or the legal medical record ([facility]). * RPT #: [id number] END OF REPORT [facility] 2023-05-30 18:56:00 [facility] ([facility]) Hospitalist Progress Note REPORT #: [id number] REPORT STATUS: Signed DATE: 05/30/23 TIME: 1855 PATIENT: KOTA MONTES UNIT #: [id number] ROOM #: P.0303 BED: 1 : 61 AGE: 62 SEX: M ATTEND: Nnamdi Rachel MD ADM AUTHOR: Nnamdi Rachel MD ATTENTION *EDITS and/or ADDENDA must be made in Patient Keeper for this note. * * Edits and ammendments created in [employer] are not visible * * in Patient Keeper or the legal medical record ([facility]). * -- ASSESSMENT AND PLAN -- GENERAL ASSESSMENT: ASSESSMENT AND PLAN: 1. Recurrent chest pain, in a patient with a known history of severe multivessel coronary artery disease, status post multiple interventions. Serial cardiac enzymes are negative and myocardial infarction has been ruled out. I will continue aspirin, Brilinta, metoprolol and atorvastatin. He will need selective coronary angiogram and intervention by Dr. Kurtis Lynch. 2. Abdominal distention and pain, rule out ileus/bowel obstruction. Abdominal x-ray non diagnostic. 3. Hypertension. Continue metoprolol. 4. Hyperlipidemia. Continue atorvastatin 40 mg daily. 5. Alcohol abuse. Delirium tremens prophylaxis. 6. Nicotine dependence, we will offer a Nicoderm patch. 7. Anxiety/depression, not otherwise specified. Continue escitalopram. 8. Severe hyponatremia. The patient has previously had similar hyponatremia and etiology is unclear. We will get additional labs. 9. Gross noncompliance with instructions and therapy ADDITIONAL COMMENTS: Downgraded from CVICU because of adamantly refusing interventions. Await coronary angiogram and possible intervention. -- SUBJECTIVE -- HPI: This 62-year-old gentleman has a past medical history significant for hypertension, hyperlipidemia, myocardial infarction in 2005, angioplasty with stent placement x2 to the RCA in 2005, complex high risk PCI with one stent placement to the RCA and PTCA to the left circumflex with atherectomy and intravenous lithotripsy in 06/2022, status post rotablation and two stents placed to the left circumflex by Dr. Kurtis Lynch on 12/24/2022. On 04/05/2023, he was at an outside emergency room with complaints of chest pain and shortness of breath, but left against medical advice prior to any intervention. He presented to the [facility] Emergency Room on 05/28/2023 with complaints of chest pain and shortness of breath that started earlier this morning, during inactivity. He also reported a cough for the past several days, but denied any fever or known sick contacts. Later after eating his lunch, he reported significant abdominal distention and bloating with abdominal pain. In the emergency room, troponin was negative and EKG showed sinus rhythm, left bundle branch block. He has been admitted for further management. PATIENT NARRATIVE: 05/28: The patient was initially moved down to CV IMU for cardiac management. He continued to have persistent pain despite being started on intravenous heparin infusion. He demanded Dilaudid earlier than the designated time. He was, as previously, disrespectful and rude to the staff. He was transition to CVICU for closer monitoring and initiation of nitroglycerin infusion. The patient refused nitroglycerin infusion, sublingual tablets. Today he also refused heparin infusion, refused blood draws for any reason. He repeatedly threatened to leave AGAINST MEDICAL ADVICE. He is being moved back to CV IMU status as he is not on nitroglycerin drip at this time, and he wants more freedom. He needs selective coronary angiogram, the earliest expected is 05/30. as per state fire marshal: Patient declining all interventions, wanting to leave AMA unless downgraded, chest pain unlikely cardiac, enzymes negative and EKG without concerning features. 05/29: Once again, the patient threatened to walk out AGAINST MEDICAL ADVICE multiple times today. Refused heparin infusion and was off it for about 12 hours. Towards evening he was agreeable and got back on heparin. Plan is for selective coronary angiogram and possible intervention tomorrow. -REVIEW OF SYSTEMS- GENERAL: CONSTITUTIONAL: No fever or chills. No weight gain or weight loss. HEENT: Some congestion and cough for the past few days. CARDIOPULMONARY: Shortness of breath and acute chest pain starting earlier in the day. GASTROINTESTINAL: Abdominal distention and pain and bloating starting on the day of admission. Nausea. No vomiting. No constipation, but loose stools. GENITOURINARY: Denies any dysuria or discharge. NEUROLOGICAL: Denies any headache, dizziness or syncope. -- OBJECTIVE -- VITALS (05/28 15:53 - 05/29 15:53): Temperature F: 97.8 (97.0 - 98.0) Temperature source: Oral Pulse Rate 58 (50 - 72) Respiratory rate: 16 (10 - 24) Blood pressure: 119/64 (103/53 - 166/79) Blood pressure source: Monitor I/Os (05/28 07:00 - 05/29 07:00): Net -1,092.50 Intake 452.50 Output 1,545 -EXAM- GENERAL: GENERAL: Not in any distress, but uncomfortable. VITAL SIGNS: oxygen saturation 96% on room air. Weight is 84 kilograms. Body mass index 29. HEENT: Head is atraumatic. Pupils are reactive to light and accommodation. Extraocular muscles intact. NECK: Supple. No thyromegaly. No JVD. CARDIOVASCULAR: S1, S2 audible. LUNGS: Clear to auscultation. ABDOMEN: Distended, bowel sounds audible. Minimal tenderness. MUSCULOSKELETAL: No joint tenderness. EXTREMITIES: No edema, cyanosis or clubbing. Pedal pulses palpable. NEUROLOGIC: No focal deficit. irritable. -- DATA -- MEDICATIONS SODIUM CHLORIDE 0.9% 1000 ML IV .Q24H morphine SULFATE 4 MG IV Q3H PRN MAG HYDROX/AL HYDROX/SIMETH 30 ML PO Q4H PRN cloNIDine HCL 0.1 MG PO Q8H PRN DOCUSATE SODIUM 100 MG PO BID HYDROcodone BITARTRATE/APAP 1 TAB PO Q4H PRN METOPROLOL TARTRATE 50 MG PO BID ONDANSETRON 4 MG PO Q6H PRN TICAGRELOR 90 MG PO Q12HR hydrALAZINE HCL 5 MG IV Q6HR PRN ACETAMINOPHEN 650 MG PO Q4H PRN FOLIC ACID 1 MG PO DAILY ONDANSETRON HCL/PF 4 MG IV Q6H PRN HEPARIN/SOD CHLOR 0.45% 31128 UNITS IV TITRATE chlordiazePOXIDE HCl 25 MG PO BID ASPIRIN 81 MG PO DAILY THIAMINE HCL 100 MG PO DAILY HEPARIN SODIUM,PORCINE 5000 UNIT IV ASDIR PRN traZODone HCL 100 MG PO BEDTIME METOPROLOL TARTRATE 5 MG IV Q6H PRN HEPARIN PHARMACY TO MONITOR 1 EACH IV ASDIR ATORVASTATIN CALCIUM 40 MG PO BEDTIME SODIUM CHLORIDE 0.9% 1000 ML IV .Q24H HYDROcodone BITARTRATE/APAP 1 TAB PO Q4H PRN NITROGLYCERIN 0.4 MG SL Q5M PRN HEPARIN SODIUM,PORCINE 3000 UNIT IV ASDIR PRN ESCITALOPRAM 20 MG PO DAILY LABS BASIC METABOLIC PANEL (05/30/23 04:47) SODIUM 134L L POTASSIUM 4.2 CHLORIDE 102 CARBON DIOXIDE 28 GLUCOSE 101 BLOOD UREA NITROGEN 14 GLOMERULAR FILTRATION RATE >=60 max estimate CREATININE 1.10 CALCIUM 9.1 CBC W/AUTO DIFF (05/30/23 04:47) WHITE BLOOD CELL 6.4 RED BLOOD CELL 4.70 HEMOGLOBIN 15.5 HEMATOCRIT 45.8 MEAN CELL VOLUME 97.4 H MEAN CELL HGB 33.0 H MEAN CELL HGB CONCENTRATION 33.8 RED CELL DISTRIBUTION WIDTH 13.9 PLATELET COUNT 146L L MEAN PLATELET VOLUME 9.4 NEUTROPHIL % 65.9 LYMPHOCYTE % 23.8 MONOCYTE % 7.4 EOSINOPHIL % 1.9 BASOPHIL % 0.5 NEUTROPHIL # 4.19 LYMPHOCYTE # 1.51 MONOCYTE # 0.47 EOSINOPHIL # 0.12 BASOPHIL # 0.03 PTT (05/30/23 04:47) THROMBOPLASTIN TIME PARTIAL 135.0 D*H PTT (05/29/23 22:27) THROMBOPLASTIN TIME PARTIAL 72.2 D H -- QUALITY -- -MEDICATIONS- - I attest that the foregoing medication list in the medical record is true, accurate, and complete to the best of my knowledge. -- ATTESTATION -- CARE ACTIVITIES / CARE COORDINATION: - I have reviewed the history and repeated the carias elements - I have seen and examined this patient - I have reviewed the progress in the clinical course since the last examination - I have discussed the patient's condition with other members of the care team Signed in PatientKeeper by Nnamdi Rachel MD on 05/30/23 at 23:38 at 2338 ATTENTION *EDITS and/or ADDENDA must be made in Patient Keeper for this note. * * Edits and ammendments created in [employer] are not visible * * in Patient Keeper or the legal medical record ([facility]). * [facility] #: [id number] END OF REPORT [facility] 2023-05-30 07:59:00 [facility] ([facility]) Cardiology Progress Notes REPORT #: [id number] REPORT STATUS: Signed DATE: 05/30/23 TIME: 0759 PATIENT: KOTA MONTES UNIT #: [id number] ROOM #: P.[id number] BED: A : 61 AGE: 62 SEX: M ATTEND: Nnamdi Rachel MD ADM AUTHOR: Hanh Mcgraw DO CF1 ATTENTION *EDITS and/or ADDENDA must be made in Patient Keeper for this note. * * Edits and ammendments created in [employer] are not visible * * in Patient Keeper or the legal medical record (HPF). * -- CO-SIGNATURE -- COMMENTS: I have seen and examined the patient with business education teacher Dr. Hanh Mcgraw MD * my personal evaluation is Unstable angina heparin drip Continue DAPT with aspirin and Brilinta Continue Lipitor and metoprolol Plan for PCI tomorrow noted I have reviewed all the clinical information, lab investigations, and imaging data. I agree with the examination, findings, assessment and plan. I have discussed the patient's condition with other consultants and members of the care team I was present and supervised. Life threatening disease due to CAD-Unstable angina Organ systems impaired or failing: Cardiac Signed in PatientKeeper by GUILLAUME SUMNER MD on 06/04/23 at 13:43 -- ASSESSMENT AND PLAN -- HOSPITAL COURSE TO DATE: 05/28: upgraded overnight for unstable angina on nitro drip, plan for PCI Monday 05/29: stable GENERAL ASSESSMENT: The patient is a 62-year-old gentleman (patient of Dr. Giordano) has a PMHx of coronary artery disease (s/p PCI 2005, 06/2022, 12/24/2022), h/o NM (2005), family history of coronary artery disease, h/o alcohol abuse, nicotine use, hypertension, hyperlipidemia. He underwent percutaneous coronary intervention with rotablation and placement of 2 stents in the LCx on 12/24/[address] Lynch and Dr. Malachi Fitzgerald (see op-note). He was discharged on stable condition on 12/25/22. He presented at an outside emergency room on 04/05/2023 with complaint of chest pain and shortness of breath, and he left against medical advise prior any intervention. He presented today (05/28/23) at [facility] with complaints of shortness of breath and left sided localized sharp chest pain that started earlier today. He reports the symptoms are similar when he had the previous percutaneous coronary interventions. He reports being complaint taking his medications, including DAPT. Workup showed negative troponin, BNP 78, Na 128. EKG shows normal sinus rhythm and left bundle branch block. Chest x-ray showed unremarkable frontal chest radiograph. He was admitted for further evaluation and management. PROBLEMS: 1: Coronary artery disease/chest pain A/P: - HEART score 4/5 - AHA C, NYHA 3 - On DAPT with aspirin and brilinta - On atorvastatin 40mg daily, metoprolol tartrate 50mg BID - Start heparin drip - He reports SL nitroglycerin does not relieve the chest pain and morphine does not subside the pain - On IV dilaudid as needed for pain, managed by primary team - cont nitro drip, wean off as tolerated - Spoke with Dr. Lynch and plan for SCA with possible PCI Saturday -- discussed risks and benefits of procedure. Patient verbally consented. All questions answered. -- SUBJECTIVE -- CHIEF COMPLAINT: DRISS this AM. KARTIK overnight. No new complaints. Tele: NSR 75bpm -REVIEW OF SYSTEMS- COMMENT: 10 point ROS negative unless noted. -- OBJECTIVE -- VITALS (05/28 07:59 - 05/29 07:59): Temperature F: 98.0 (97.0 - 98.0) Temperature source: Oral Pulse Rate 68 (50 - 78) Respiratory rate: 15 (8 - 47) Blood pressure: 125/58 (99/53 - 166/79) Blood pressure source: Monitor I/Os (05/28 07:00 - 05/29 07:00): Net -1,092.50 Intake 452.50 Output 1,545 -EXAM- GENERAL: Well developed, well nourished, in no apparent distress. HEAD: Normocephalic, atraumatic. EARS: grossly normal hearing. NOSE: No deformity, no discharge MOUTH: Oropharynx without deformities or lesions, normal mucosa. CHEST: Grossly normal appearance. LUNGS: Clear bilaterally with normal respiratory effort. HEART: Regular rate and rhythm, normal S1, S2, no murmurs EXTREMITIES: No clubbing, no cyanosis, no edema. NEUROLOGICAL: No focal deficits, cranial nerves II-XII grossly intact PSYCHIATRIC: Alert and oriented to time, person, place. -- DATA -- MEDICATIONS SODIUM CHLORIDE 0.9% 1000 ML IV .Q24H morphine SULFATE 4 MG IV Q3H PRN MAG HYDROX/AL HYDROX/SIMETH 30 ML PO Q4H PRN cloNIDine HCL 0.1 MG PO Q8H PRN DOCUSATE SODIUM 100 MG PO BID HYDROcodone BITARTRATE/APAP 1 TAB PO Q4H PRN METOPROLOL TARTRATE 50 MG PO BID ONDANSETRON 4 MG PO Q6H PRN TICAGRELOR 90 MG PO Q12HR hydrALAZINE HCL 5 MG IV Q6HR PRN ACETAMINOPHEN 650 MG PO Q4H PRN FOLIC ACID 1 MG PO DAILY ONDANSETRON HCL/PF 4 MG IV Q6H PRN HEPARIN/SOD CHLOR 0.45% 80299 UNITS IV TITRATE chlordiazePOXIDE HCl 25 MG PO BID ASPIRIN 81 MG PO DAILY THIAMINE HCL 100 MG PO DAILY HEPARIN SODIUM,PORCINE 5000 UNIT IV ASDIR PRN traZODone HCL 100 MG PO BEDTIME METOPROLOL TARTRATE 5 MG IV Q6H PRN HEPARIN PHARMACY TO MONITOR 1 EACH IV ASDIR ATORVASTATIN CALCIUM 40 MG PO BEDTIME SODIUM CHLORIDE 0.9% 1000 ML IV .Q24H HYDROcodone BITARTRATE/APAP 1 TAB PO Q4H PRN NITROGLYCERIN 0.4 MG SL Q5M PRN HEPARIN SODIUM,PORCINE 3000 UNIT IV ASDIR PRN ESCITALOPRAM 20 MG PO DAILY LABS BASIC METABOLIC PANEL (05/30/23 04:47) SODIUM 134L L POTASSIUM 4.2 CHLORIDE 102 CARBON DIOXIDE 28 GLUCOSE 101 BLOOD UREA NITROGEN 14 GLOMERULAR FILTRATION RATE >=60 max estimate CREATININE 1.10 CALCIUM 9.1 CBC W/AUTO DIFF (05/30/23 04:47) WHITE BLOOD CELL 6.4 RED BLOOD CELL 4.70 HEMOGLOBIN 15.5 HEMATOCRIT 45.8 MEAN CELL VOLUME 97.4 H MEAN CELL HGB 33.0 H MEAN CELL HGB CONCENTRATION 33.8 RED CELL DISTRIBUTION WIDTH 13.9 PLATELET COUNT 146L L MEAN PLATELET VOLUME 9.4 NEUTROPHIL % 65.9 LYMPHOCYTE % 23.8 MONOCYTE % 7.4 EOSINOPHIL % 1.9 BASOPHIL % 0.5 NEUTROPHIL # 4.19 LYMPHOCYTE # 1.51 MONOCYTE # 0.47 EOSINOPHIL # 0.12 BASOPHIL # 0.03 PTT (05/30/23 04:47) THROMBOPLASTIN TIME PARTIAL 135.0 D*H PTT (05/29/23 22:27) THROMBOPLASTIN TIME PARTIAL 72.2 D H BASIC METABOLIC PANEL (05/29/23 10:59) SODIUM 131L L POTASSIUM 4.1 CHLORIDE 97L L CARBON DIOXIDE 28 GLUCOSE 92 BLOOD UREA NITROGEN 16 GLOMERULAR FILTRATION RATE >=60 max estimate CREATININE 1.00 CALCIUM TNP CA (05/29/23 10:59) CALCIUM 9.2 MAG (05/29/23 10:59) MAGNESIUM 2.1 PHOS (05/29/23 10:59) PHOSPHOROUS 3.0 PTT (05/29/23 10:40) THROMBOPLASTIN TIME PARTIAL 36.0 D H Signed in PatientKeeper by Hanh Mcgraw on 05/30/23 at 16:03 Cosigned by GUILLAUME SUMNER MD on 06/04/23 at 13:43 at 1343 at 1343 ATTENTION *EDITS and/or ADDENDA must be made in Patient Keeper for this note. * * Edits and ammendments created in [facility] are not visible * * in Patient Keeper or the legal medical record ([facility]). * RPT #: [id number] END OF REPORT [facility] 2023-05-29 17:55:00 [facility] ([facility]) Hospitalist Progress Note REPORT #: [id number] REPORT STATUS: Signed DATE: 05/29/23 TIME: 175 PATIENT: KOTA MONTES UNIT #: [id number] ROOM #: P.[id number] BED: 1 : 61 AGE: 62 SEX: M ATTEND: Nnamdi Rachel MD [facility] AUTHOR: Nnamdi Rachel MD ATTENTION *EDITS and/or ADDENDA must be made in Patient Keeper for this note. * * Edits and ammendments created in [facility] are not visible * * in Patient Keeper or the legal medical record ([facility]). * -- ASSESSMENT AND PLAN -- GENERAL ASSESSMENT: ASSESSMENT AND PLAN: 1. Recurrent chest pain, in a patient with a known history of severe multivessel coronary artery disease, status post multiple interventions. Serial cardiac enzymes are negative and myocardial infarction has been ruled out. I will continue aspirin, Brilinta, metoprolol and atorvastatin. He will need selective coronary angiogram and intervention by Dr. Kurtis Lynch. 2. Abdominal distention and pain, rule out ileus/bowel obstruction. Abdominal x-ray non diagnostic. 3. Hypertension. Continue metoprolol. 4. Hyperlipidemia. Continue atorvastatin 40 mg daily. 5. Alcohol abuse. Delirium tremens prophylaxis. 6. Nicotine dependence, we will offer a Nicoderm patch. 7. Anxiety/depression, not otherwise specified. Continue escitalopram. 8. Severe hyponatremia. The patient has previously had similar hyponatremia and etiology is unclear. We will get additional labs. 9. Gross noncompliance with instructions and therapy ADDITIONAL COMMENTS: Downgraded from CVICU because of adamantly refusing interventions. Await coronary angiogram and possible intervention. The daughter had apologized yesterday in advance, anticipating the patient's usual disrespectful demeanor. -- SUBJECTIVE -- HPI: This 62-year-old gentleman has a past medical history significant for hypertension, hyperlipidemia, myocardial infarction in 2005, angioplasty with stent placement x2 to the RCA in 2005, complex high risk PCI with one stent placement to the RCA and PTCA to the left circumflex with atherectomy and intravenous lithotripsy in 06/2022, status post rotablation and two stents placed to the left circumflex by Dr. Kurtis Lynch on 12/24/2022. On 04/05/2023, he was at an outside emergency room with complaints of chest pain and shortness of breath, but left against medical advice prior to any intervention. He presented to the [facility] Emergency Room on 05/28/2023 with complaints of chest pain and shortness of breath that started earlier this morning, during inactivity. He also reported a cough for the past several days, but denied any fever or known sick contacts. Later after eating his lunch, he reported significant abdominal distention and bloating with abdominal pain. In the emergency room, troponin was negative and EKG showed sinus rhythm, left bundle branch block. He has been admitted for further management. PATIENT NARRATIVE: 05/28: The patient was initially moved down to CV IMU for cardiac management. He continued to have persistent pain despite being started on intravenous heparin infusion. He demanded Dilaudid earlier than the designated time. He was, as previously, disrespectful and rude to the staff. He was transition to CVICU for closer monitoring and initiation of nitroglycerin infusion. The patient refused nitroglycerin infusion, sublingual tablets. Today he also refused heparin infusion, refused blood draws for any reason. He repeatedly threatened to leave AGAINST MEDICAL ADVICE. He is being moved back to CV IMU status as he is not on nitroglycerin drip at this time, and he wants more freedom. He needs selective coronary angiogram, the earliest expected is 05/30. as per state fire marshal: Patient declining all interventions, wanting to leave AMA unless downgraded, chest pain unlikely cardiac, enzymes negative and EKG without concerning features. -REVIEW OF SYSTEMS- GENERAL: CONSTITUTIONAL: No fever or chills. No weight gain or weight loss. HEENT: Some congestion and cough for the past few days. CARDIOPULMONARY: Shortness of breath and acute chest pain starting earlier in the day. GASTROINTESTINAL: Abdominal distention and pain and bloating starting on the day of admission. Nausea. No vomiting. No constipation, but loose stools. GENITOURINARY: Denies any dysuria or discharge. NEUROLOGICAL: Denies any headache, dizziness or syncope. -- OBJECTIVE -- VITALS (05/27 17:55 - 05/28 17:55): Temperature F: 98.0 (97.7 - 98.2) Temperature C: 36.6 Temperature source: Oral Pulse Rate 69 (52 - 78) Respiratory rate: 22 (8 - 47) Blood pressure: 99/63 (99/58 - 151/79) Blood pressure source: Monitor I/Os (05/27 07:00 - 05/28 07:00): Net 165.20 Intake 165.20 Output 0 -EXAM- GENERAL: GENERAL: Not in any distress, but uncomfortable. VITAL SIGNS: oxygen saturation 96% on room air. Weight is 84 kilograms. Body mass index 29. HEENT: Head is atraumatic. Pupils are reactive to light and accommodation. Extraocular muscles intact. NECK: Supple. No thyromegaly. No JVD. CARDIOVASCULAR: S1, S2 audible. LUNGS: Clear to auscultation. ABDOMEN: Distended, bowel sounds audible. Minimal tenderness. MUSCULOSKELETAL: No joint tenderness. EXTREMITIES: No edema, cyanosis or clubbing. Pedal pulses palpable. NEUROLOGIC: No focal deficit. -- DATA -- MEDICATIONS SODIUM CHLORIDE 0.9% 1000 ML IV .Q24H morphine SULFATE 4 MG IV Q3H PRN MAG HYDROX/AL HYDROX/SIMETH 30 ML PO Q4H PRN cloNIDine HCL 0.1 MG PO Q8H PRN DOCUSATE SODIUM 100 MG PO BID HYDROcodone BITARTRATE/APAP 1 TAB PO Q4H PRN METOPROLOL TARTRATE 50 MG PO BID ONDANSETRON 4 MG PO Q6H PRN TICAGRELOR 90 MG PO Q12HR hydrALAZINE HCL 5 MG IV Q6HR PRN ACETAMINOPHEN 650 MG PO Q4H PRN FOLIC ACID 1 MG PO DAILY ONDANSETRON HCL/PF 4 MG IV Q6H PRN HEPARIN/SOD CHLOR 0.45% 79161 UNITS IV TITRATE chlordiazePOXIDE HCl 25 MG PO BID ASPIRIN 81 MG PO DAILY THIAMINE HCL 100 MG PO DAILY HEPARIN SODIUM,PORCINE 5000 UNIT IV ASDIR PRN traZODone HCL 100 MG PO BEDTIME METOPROLOL TARTRATE 5 MG IV Q6H PRN HEPARIN PHARMACY TO MONITOR 1 EACH IV ASDIR ATORVASTATIN CALCIUM 40 MG PO BEDTIME SODIUM CHLORIDE 0.9% 1000 ML IV .Q24H HYDROcodone BITARTRATE/APAP 1 TAB PO Q4H PRN NITROGLYCERIN 0.4 MG SL Q5M PRN HEPARIN SODIUM,PORCINE 3000 UNIT IV ASDIR PRN ESCITALOPRAM 20 MG PO DAILY LABS BASIC METABOLIC PANEL (05/29/23 10:59) SODIUM 131L L POTASSIUM 4.1 CHLORIDE 97L L CARBON DIOXIDE 28 GLUCOSE 92 BLOOD UREA NITROGEN 16 GLOMERULAR FILTRATION RATE >=60 max estimate CREATININE 1.00 CALCIUM TNP CA (05/29/23 10:59) CALCIUM 9.2 MAG (05/29/23 10:59) MAGNESIUM 2.1 PHOS (05/29/23 10:59) PHOSPHOROUS 3.0 PTT (05/29/23 10:40) THROMBOPLASTIN TIME PARTIAL 36.0 D H PHOS (05/29/23 04:03) PHOSPHOROUS 3.5 MAG (05/29/23 04:03) MAGNESIUM 1.7 BASIC METABOLIC PANEL (05/29/23 04:03) SODIUM 131L L POTASSIUM 4.2 CHLORIDE 95L L CARBON DIOXIDE 29 GLUCOSE 84 BLOOD UREA NITROGEN 16 GLOMERULAR FILTRATION RATE >=60 max estimate CREATININE 1.10 CALCIUM 9.0 PROTHROMBIN TIME (05/29/23 04:02) PROTHROMBIN TIME PATIENT 10.8 INTERNATIONAL NORMAL RATIO 0.96 PTT (05/29/23 04:02) THROMBOPLASTIN TIME PARTIAL 68.4 D H CBC W/AUTO DIFF (05/29/23 04:02) WHITE BLOOD CELL 6.7 RED BLOOD CELL 4.69 L HEMOGLOBIN 15.8 HEMATOCRIT 43.9 MEAN CELL VOLUME 93.6 MEAN CELL HGB 33.7 H MEAN CELL HGB CONCENTRATION 36.0 RED CELL DISTRIBUTION WIDTH 13.9 PLATELET COUNT 155 MEAN PLATELET VOLUME 9.2 NEUTROPHIL % 58.3 LYMPHOCYTE % 32.7 MONOCYTE % 6.4 EOSINOPHIL % 1.3 BASOPHIL % 0.6 NEUTROPHIL # 3.89 LYMPHOCYTE # 2.19 MONOCYTE # 0.43 EOSINOPHIL # 0.09 BASOPHIL # 0.04 -- QUALITY -- -MEDICATIONS- - I attest that the foregoing medication list in the medical record is true, accurate, and complete to the best of my knowledge. -- ATTESTATION -- CARE ACTIVITIES / CARE COORDINATION: - I have reviewed the history and repeated the carias elements - I have seen and examined this patient - I have reviewed the progress in the clinical course since the last examination - I have discussed the patient's condition with other members of the care team Signed in PatientKeeper by Nnamdi Rachel MD on 05/29/23 at 22:51 at 2251 ATTENTION *EDITS and/or ADDENDA must be made in Patient Keeper for this note. * * Edits and ammendments created in [employer] are not visible * * in Patient Keeper or the legal medical record ([facility]). * RPT #: [id number] END OF REPORT [facility] 2023-05-29 17:46:00 [facility] ([facility]) Intensive Care Progress Note REPORT #: [id number] REPORT STATUS: Signed DATE: 05/29/23 TIME: 1746 PATIENT: KOTA MONTES UNIT #: [id number] ROOM #: [facility] BED: 1 : 61 AGE: 62 SEX: M ATTEND: Nnamdi Rachel MD ADM AUTHOR: Sherrie Stein MD ATTENTION *EDITS and/or ADDENDA must be made in Patient Keeper for this note. * * Edits and ammendments created in [employer] are not visible * * in Patient Keeper or the legal medical record ([facility]). * -- ASSESSMENT AND PLAN -- HOSPITAL COURSE TO DATE: 62M with PMHx of HTN, HLD, Hx of NM 2005, CAD s/p PCI 2005, 06/2022, 12/24/2022 (LCx), h/o alcohol abuse, nicotine use who was recently in ED 04/05/2023 for chest pain, shortness of breath but left AMA.. Patient presented to [facility] yesterday for L sided chest pain, shortness of breath similar to his past presentations. No ischemic changes on EKG and Troponin normal. He was started on heparin gtt and admitted to telemetry with plans for LHC +/- PCI this week. While on telemetry ongoing chest pain not relieved with Dilaudid and patient refusing NTG gtt saying it doesn't work for him. Being transferred to CVICU at request of hospitalist for closer monitoring in setting of ongoing chest pain. 05/28: Patient declining all interventions, wanting to leave AMA unless downgraded, chest pain unlikely cardiac, enzymes negative and EKG without concerning features GENERAL ASSESSMENT: Plan: Pain/Sedation -Appears to be pain seeking, chest pain unlikely cardiac -Continue APAP/Corinne PRN mild/moderate/severe pain, with morphine 4mg IV PRN breakthrough pain -Encouraged patient to use oral opioids, patient resistant -Close monitoring of narcotic use Neuro/Psych #Anxiety/Depression #ETOH Abuse History -CONCEPCION, mentating at baseline -Continue home Lexapro and trazodone -Librium for h/o ETOH abuse (consumes 2-3 drinks daily, last drink on 05/27), monitor for withdrawal -Delirium precautions, frequent reorientation/redirection Respiratory -CONCEPCION, saturating well on RA Cardiovascular #CAD #NSTEMI -Known h/o extensive CAD s/p PCI -Prior TTE showed normal EF -EKG without ischemic changes, troponin negative -Continue ACS protocol with heparin gtt, aspirin/Brilinta -Statin/Lopressor -Pain control for chest pain, patient refusing nitro -Cardiology following, recommendations appreciated, planning for LHC on 05/30 Gastrointestinal -Continue regular diet -SUP, bowel regimen Renal #Hyponatremia -Asymptomatic -Currently improving without intervention, continue to monitor, trend daily -Renal function WNL -Monitor I/O Infectious Disease -CONCEPCION, monitor fever curve Endocrine -Maintain goal BS 140-180 -Hypoglycemia protocol HEME -H/H WNL, stable -Close monitoring while on therapeutic anticoagulation -Transfuse for goal Hgb >8.0, platelets >10k or 20k with bleeding, and fibrinogen >150 MSK -PT/OT consulted PPX -DVT: Heparin gtt -GI: None GOC -Code: Full per patient -Advance Care Planning: None per patient Dispo: Downgrade to CVIMU, signout provided to hospitalist Dr Nnamdi Hebert Medications reviewed with ICU pharmacist Patient is critically ill and at risk of imminent life threatening injury or -- SUBJECTIVE -- PATIENT NARRATIVE: Patient reports intermittent chest pain, initially relieved by Dilaudid, now with minimal relief. Requesting higher dose and frequency of narcotics. Refusing telemetry, nitro gtt, and heparin gtt at times. -REVIEW OF SYSTEMS- GENERAL: Negative for fever, malaise, fatigue. EYES: Negative for blurry vision. No diplopia. EARS/NOSE/THROAT: Negative for sore throat. No otalgia. No rhinorrhea. BREAST: Negative for change in shape, swelling, masses, nipple discharge, pain, skin changes. RESPIRATORY: Negative for dyspnea or wheeze. No cough. CARDIOVASCULAR: Chest pain. Negative for palpitations. No extremity swelling. GASTROINTESTINAL: Negative for abdominal pain or nausea. No emesis. No diarrhea. GENITOURINARY: Negative for dysuria, frequency, or urgency. No gross hematuria. MUSCULOSKELETAL: Negative for joint stiffness, pain, or arthralgias. SKIN: Negative for rashes. No pruritus. NEUROLOGICAL: Negative for headache. No vertigo. Denies paresthesias. PSYCHIATRIC: Negative for specific complaints. ENDOCRINE: Negative for cold intolerance, heat intolerance, polyphagia, polydipsia, polyuria, weight change, fatigue. HEMATALOGIC / LYMPHORETICULAR: Negative for excessive bleeding, unusual masses. ALLERGIC / IMMUNOLOGIC: Negative for heat/cold intolerance, polydipsia, or polyuria. -- OBJECTIVE -- VITALS (05/27 17:46 - 05/28 17:46): Temperature F: 98.0 (97.7 - 98.2) Temperature C: 36.6 Temperature source: Oral Pulse Rate 69 (52 - 78) Respiratory rate: 22 (8 - 47) Blood pressure: 99/63 (99/58 - 151/79) Blood pressure source: Monitor I/Os (05/27 07:00 - 05/28 07:00): Net 165.20 Intake 165.20 Output 0 -EXAM- OTHER: General: AAOx4, responds appropriately, follows commands, in NAD HEENT: NCAT, EOMI, clear conjunctiva, PERRLA, moist oral mucosa Neck: No JVD CV: RRR, no murmurs Lung: CTAB, unlabored breathing on RA, no wheezes, rales, rhonchi GI: Soft, NT/ND, no rebound Neuro: No focal deficits appreciated MSK: 5/5 in all extremities Extremities: No edema and warm bilaterally Skin: No rashes or lesions Psych: Agitated but redirectable -- DATA -- MEDICATIONS SODIUM CHLORIDE 0.9% 1000 ML IV .Q24H morphine SULFATE 4 MG IV Q3H PRN MAG HYDROX/AL HYDROX/SIMETH 30 ML PO Q4H PRN cloNIDine HCL 0.1 MG PO Q8H PRN DOCUSATE SODIUM 100 MG PO BID HYDROcodone BITARTRATE/APAP 1 TAB PO Q4H PRN METOPROLOL TARTRATE 50 MG PO BID ONDANSETRON 4 MG PO Q6H PRN TICAGRELOR 90 MG PO Q12HR hydrALAZINE HCL 5 MG IV Q6HR PRN ACETAMINOPHEN 650 MG PO Q4H PRN FOLIC ACID 1 MG PO DAILY ONDANSETRON HCL/PF 4 MG IV Q6H PRN HEPARIN/SOD CHLOR 0.45% 52369 UNITS IV TITRATE chlordiazePOXIDE HCl 25 MG PO BID ASPIRIN 81 MG PO DAILY THIAMINE HCL 100 MG PO DAILY HEPARIN SODIUM,PORCINE 5000 UNIT IV ASDIR PRN traZODone HCL 100 MG PO BEDTIME METOPROLOL TARTRATE 5 MG IV Q6H PRN HEPARIN PHARMACY TO MONITOR 1 EACH IV ASDIR ATORVASTATIN CALCIUM 40 MG PO BEDTIME SODIUM CHLORIDE 0.9% 1000 ML IV .Q24H HYDROcodone BITARTRATE/APAP 1 TAB PO Q4H PRN NITROGLYCERIN 0.4 MG SL Q5M PRN HEPARIN SODIUM,PORCINE 3000 UNIT IV ASDIR PRN ESCITALOPRAM 20 MG PO DAILY LABS BASIC METABOLIC PANEL (05/29/23 10:59) SODIUM 131L L POTASSIUM 4.1 CHLORIDE 97L L CARBON DIOXIDE 28 GLUCOSE 92 BLOOD UREA NITROGEN 16 GLOMERULAR FILTRATION RATE >=60 max estimate CREATININE 1.00 CALCIUM TNP CA (05/29/23 10:59) CALCIUM 9.2 MAG (05/29/23 10:59) MAGNESIUM 2.1 PHOS (05/29/23 10:59) PHOSPHOROUS 3.0 PTT (05/29/23 10:40) THROMBOPLASTIN TIME PARTIAL 36.0 D H PHOS (05/29/23 04:03) PHOSPHOROUS 3.5 MAG (05/29/23 04:03) MAGNESIUM 1.7 BASIC METABOLIC PANEL (05/29/23 04:03) SODIUM 131L L POTASSIUM 4.2 CHLORIDE 95L L CARBON DIOXIDE 29 GLUCOSE 84 BLOOD UREA NITROGEN 16 GLOMERULAR FILTRATION RATE >=60 max estimate CREATININE 1.10 CALCIUM 9.0 PROTHROMBIN TIME (05/29/23 04:02) PROTHROMBIN TIME PATIENT 10.8 INTERNATIONAL NORMAL RATIO 0.96 PTT (05/29/23 04:02) THROMBOPLASTIN TIME PARTIAL 68.4 D H CBC W/AUTO DIFF (05/29/23 04:02) WHITE BLOOD CELL 6.7 RED BLOOD CELL 4.69 L HEMOGLOBIN 15.8 HEMATOCRIT 43.9 MEAN CELL VOLUME 93.6 MEAN CELL HGB 33.7 H MEAN CELL HGB CONCENTRATION 36.0 RED CELL DISTRIBUTION WIDTH 13.9 PLATELET COUNT 155 MEAN PLATELET VOLUME 9.2 NEUTROPHIL % 58.3 LYMPHOCYTE % 32.7 MONOCYTE % 6.4 EOSINOPHIL % 1.3 BASOPHIL % 0.6 NEUTROPHIL # 3.89 LYMPHOCYTE # 2.19 MONOCYTE # 0.43 EOSINOPHIL # 0.09 BASOPHIL # 0.04 -- QUALITY -- -MEDICATIONS- - I attest that the foregoing medication list in the medical record is true, accurate, and complete to the best of my knowledge. -- ATTESTATION -- TIME SPENT ON PATIENT CARE: - Critical Care: time spent apart from any procedure 32 minutes Patient was critically ill due to: NSTEMI My treatment and management were: discussed on ICU multi-disciplinary rounds with nursing, pharmacy, respiratory therapy, case management and consultants including cardiology regarding management of NSTEMI and chest pain. CARE ACTIVITIES / CARE COORDINATION: - I have reviewed the history and repeated the carias elements - I have seen and examined this patient - I have reviewed the progress in the clinical course since the last examination - I have discussed the patient's condition with other members of the care team Signed in PatientKeeper by Sherrie Stein MD on 05/29/23 at 17:59 at 1759 ATTENTION *EDITS and/or ADDENDA must be made in Patient Keeper for this note. * * Edits and ammendments created in [employer] are not visible * * in Patient Keeper or the legal medical record ([facility]). * RPT #: [id number] END OF REPORT [facility] 2023-05-29 07:50:00 [facility] ([facility]) Cardiology Progress Notes REPORT #: [id number] REPORT STATUS: Signed DATE: 05/29/23 TIME: 0750 PATIENT: KOTA MONTES UNIT #: [id number] ROOM #: P.0414 BED: A : 61 AGE: 62 SEX: M ATTEND: Nnamdi Rachel MD ADM AUTHOR: Hanh Mcgraw DO [facility] ATTENTION *EDITS and/or ADDENDA must be made in Patient Keeper for this note. * * Edits and ammendments created in [employer] are not visible * * in Patient Keeper or the legal medical record ([facility]). * -- CO-SIGNATURE -- COMMENTS: I have seen and examined the patient with the business department chair fellow Dr. Hanh Mcgraw MD on 05/29/23. I have reviewed all the clinical information, lab investigations, and imaging data. I agree with the following examination, findings, assessment and plan. I was present and supervised. COMMENTS: I have seen and examined the patient with the business department chair fellow Dr. Hanh Mcgraw MD on 05/29/23. I have reviewed all the clinical information, lab investigations, and imaging data. I agree with the following examination, findings, assessment and plan. I was present and supervised. COMMENTS: I have seen and examined the patient with the business department chair fellow Dr. Hanh Mcgraw MD on 05/29/23. I have reviewed all the clinical information, lab investigations, and imaging data. I agree with the following examination, findings, assessment and plan. I was present and supervised. Signed in PatientKeeper by KURTIS LYNCH MD on 06/08/23 at 12:03 -- ASSESSMENT AND PLAN -- HOSPITAL COURSE TO DATE: 05/28: upgraded overnight for unstable angina on nitro drip, plan for PCI Saturday GENERAL ASSESSMENT: The patient is a 62-year-old gentleman (patient of Dr. Giordano) has a PMHx of coronary artery disease (s/p PCI 2005, 06/2022, 12/24/2022), h/o NM (2005), family history of coronary artery disease, h/o alcohol abuse, nicotine use, hypertension, hyperlipidemia. He underwent percutaneous coronary intervention with rotablation and placement of 2 stents in the LCx on 12/24/[address] Lynch and Dr. Malachi Fitzgerald (see op-note). He was discharged on stable condition on 12/25/22. He presented at an outside emergency room on 04/05/2023 with complaint of chest pain and shortness of breath, and he left against medical advise prior any intervention. He presented today (05/28/23) at [facility] with complaints of shortness of breath and left sided localized sharp chest pain that started earlier today. He reports the symptoms are similar when he had the previous percutaneous coronary interventions. He reports being complaint taking his medications, including DAPT. Workup showed negative troponin, BNP 78, Na 128. EKG shows normal sinus rhythm and left bundle branch block. Chest x-ray showed unremarkable frontal chest radiograph. He was admitted for further evaluation and management. PROBLEMS: 1: Coronary artery disease/chest pain A/P: - HEART score 4/5 - AHA C, NYHA 3 - On DAPT with aspirin and brilinta - On atorvastatin 40mg daily, metoprolol tartrate 50mg BID - Start heparin drip - He reports SL nitroglycerin does not relieve the chest pain and morphine does not subside the pain - On IV dilaudid as needed for pain, managed by primary team - cont nitro drip, wean off as tolerated - Spoke with Dr. Lynch and plan for SCA with possible PCI Saturday -- discussed risks and benefits of procedure. Patient verbally consented. All questions answered. -- SUBJECTIVE -- CHIEF COMPLAINT: DRISS this AM. Upgraded overnight for nitro drip for unstable angina. No new complaints. Tele: NSR 75bpm -REVIEW OF SYSTEMS- COMMENT: 10 point ROS negative unless noted. -- OBJECTIVE -- VITALS (05/27 07:50 - 05/28 07:50): Temperature F: 97.7 (97.7 - 98.2) Temperature C: 36.6 Temperature source: Oral Pulse Rate 63 (60 - 73) Respiratory rate: 24 (8 - 24) Blood pressure: 130/75 (100/58 - 147/82) Blood pressure source: Monitor I/Os (05/27 07:00 - 05/28 07:00): Net 165.20 Intake 165.20 -EXAM- OTHER: Constitutional: Well developed, well nourished patient, in no acute distress. Derm/Integumentary: Warm and dry with no rashes, sores, or lesions. HEENT: Eyes-sclera clear and white, symmetrical w/ no lag. ENT - Palate and gums pink, mucosa moist, no pallor/cyanosis. Neck: supple with no masses, no thyromegaly, No JVD. Respiratory: Clear to auscultation. Heart: S1S2+, Regular Rate and Rhythm, No murmurs, rubs, or gallops. Gastrointestinal: + Bowel Sounds all quadrants. Soft, nontender with no masses or organomegaly; No HJR. Musculoskeletal: Equal strength in all extremities. No weakness. Neurology: Alert and oriented X 3. Calm, cooperative affect. No focal deficits. Extremities: + peripheral pulses. No clubbing, cyanosis. No lower extremity edema. -- DATA -- MEDICATIONS SODIUM CHLORIDE 0.9% 1000 ML IV .Q24H SOD BIPHOS/POT PHOSPHATE 2 PKT PO ASDIR PRN MAGNESIUM SULFATE 2 GM IV ASDIR (PRN) MAG HYDROX/AL HYDROX/SIMETH 30 ML PO Q4H PRN cloNIDine HCL 0.1 MG PO Q8H PRN DOCUSATE SODIUM 100 MG PO BID METOPROLOL TARTRATE 50 MG PO BID ONDANSETRON 4 MG PO Q6H PRN TICAGRELOR 90 MG PO Q12HR SODIUM PHOSPHATE with/in SODIUM CHLORIDE 0.9% 30 MM IV ASDIR (PRN) hydrALAZINE HCL 5 MG IV Q6HR PRN CALCIUM GLUC IN NACL, ISO-OSM 2 GM IV ASDIR PRN ACETAMINOPHEN 650 MG PO Q4H PRN FOLIC ACID 1 MG PO DAILY HYDROmorphone HCL 0.5 MG IV Q3H PRN ONDANSETRON HCL/PF 4 MG IV Q6H PRN PANTOPRAZOLE 40 MG PO DAILY HEPARIN/SOD CHLOR 0.45% 60400 UNITS IV TITRATE chlordiazePOXIDE HCl 25 MG PO BID POTASSIUM CHLORIDE IN WATER 10 MEQ IV ASDIR (PRN) ASPIRIN 81 MG PO DAILY HEPARIN SODIUM,PORCINE 5000 UNIT IV ASDIR PRN POTASSIUM CHLORIDE 20 MEQ PO ASDIR PRN SODIUM PHOSPHATE with/in SODIUM CHLORIDE 0.9% 20 MM IV ASDIR (PRN) traZODone HCL 100 MG PO BEDTIME MAGNESIUM SULFATE 4 G IV ASDIR (PRN) METOPROLOL TARTRATE 5 MG IV Q6H PRN HEPARIN PHARMACY TO MONITOR 1 EACH IV ASDIR ATORVASTATIN CALCIUM 40 MG PO BEDTIME SODIUM CHLORIDE 0.9% 1000 ML IV .Q24H NITROGLYCERIN 0.4 MG SL Q5M PRN HEPARIN SODIUM,PORCINE 3000 UNIT IV ASDIR PRN ESCITALOPRAM 20 MG PO DAILY LABS MAG (05/29/23 04:03) MAGNESIUM 1.7 PHOS (05/29/23 04:03) PHOSPHOROUS 3.5 BASIC METABOLIC PANEL (05/29/23 04:03) SODIUM 131L L POTASSIUM 4.2 CHLORIDE 95L L CARBON DIOXIDE 29 GLUCOSE 84 BLOOD UREA NITROGEN 16 GLOMERULAR FILTRATION RATE >=60 max estimate CREATININE 1.10 CALCIUM 9.0 CBC W/AUTO DIFF (05/29/23 04:02) WHITE BLOOD CELL 6.7 RED BLOOD CELL 4.69 L HEMOGLOBIN 15.8 HEMATOCRIT 43.9 MEAN CELL VOLUME 93.6 MEAN CELL HGB 33.7 H MEAN CELL HGB CONCENTRATION 36.0 RED CELL DISTRIBUTION WIDTH 13.9 PLATELET COUNT 155 MEAN PLATELET VOLUME 9.2 NEUTROPHIL % 58.3 LYMPHOCYTE % 32.7 MONOCYTE % 6.4 EOSINOPHIL % 1.3 BASOPHIL % 0.6 NEUTROPHIL # 3.89 LYMPHOCYTE # 2.19 MONOCYTE # 0.43 EOSINOPHIL # 0.09 BASOPHIL # 0.04 PTT (05/29/23 04:02) THROMBOPLASTIN TIME PARTIAL 68.4 D H PROTHROMBIN TIME (05/29/23 04:02) PROTHROMBIN TIME PATIENT 10.8 INTERNATIONAL NORMAL RATIO 0.96 TROPI (05/28/23 17:26) TROPONIN-I 23.1 L BASIC METABOLIC PANEL (05/28/23 14:10) SODIUM 128L L POTASSIUM 4.9 CHLORIDE 94L L CARBON DIOXIDE 26 GLUCOSE 75 BLOOD UREA NITROGEN 18 GLOMERULAR FILTRATION RATE >=60 max estimate CREATININE 1.10 CALCIUM 9.5 TROPI (05/28/23 14:10) TROPONIN-I 24.0 L PROTHROMBIN TIME (05/28/23 14:10) PROTHROMBIN TIME PATIENT 10.2 L INTERNATIONAL NORMAL RATIO 0.91 LIVER FUNCTION PANEL (05/28/23 14:10) TOTAL PROTEIN 6.9 ALBUMIN 4.8 BILIRUBIN TOTAL 0.8 BILIRUBIN DIRECT 0.2 SGOT/AST 36 H SGPT/ALT 33 ALKALINE PHOSPHATASE 90.0 CBC W/O DIFF (05/28/23 14:10) WHITE BLOOD CELL 8.0 RED BLOOD CELL 4.71 HEMOGLOBIN 15.5 HEMATOCRIT 44.6 MEAN CELL VOLUME 94.7 H MEAN CELL HGB 32.9 H MEAN CELL HGB CONCENTRATION 34.8 RED CELL DISTRIBUTION WIDTH 13.5 PLATELET COUNT 176 MAG (05/28/23 14:10) MAGNESIUM 1.7 LIPID PROFILE (CORONARY RISK) (05/28/23 14:10) TRIGLYCERIDES 182 H CHOLESTEROL 158 HDL CHOLESTEROL 100 LIPOPROTEIN LDL 40 CORONARY RISK FACTOR 1.58 PTT (05/28/23 14:10) THROMBOPLASTIN TIME PARTIAL 32.8 COVID 19 INHOUS (05/28/23 14:10) COVID 19 INHOUSE AG NEGATIVE TROPI (05/28/23 14:09) TROPONIN-I 22.9 L BNP (05/28/23 14:09) B-TYPE NATRIURETIC PEPTIDE 78 Signed in PatientKeeper by Hanh Mcgraw DO [facility] on 05/29/23 at 09:47 Cosigned by KURTIS LYNCH MD on 06/08/23 at 12:03 at 1203 at 1203 ATTENTION *EDITS and/or ADDENDA must be made in Patient Keeper for this note. * * Edits and ammendments created in [facility] are not visible * * in Patient Keeper or the legal medical record ([facility]). * RPT #: [id number] END OF REPORT [facility] 2023-05-29 01:18:00 [facility] ([facility]) Intensive Care Consultation REPORT #: [id number] REPORT STATUS: Signed DATE: 05/29/23 TIME: 0118 PATIENT: KOTA MONTES UNIT #: [id number] ROOM #: P.0303 BED: 1 : 61 AGE: 62 SEX: M ATTEND: Nnamdi Rachel MD ADM AUTHOR: Lobito Dinh MD ATTENTION *EDITS and/or ADDENDA must be made in Patient Keeper for this note. * * Edits and ammendments created in [employer] are not visible * * in Patient Keeper or the legal medical record ([facility]). * -- ASSESSMENT AND PLAN -- HOSPITAL COURSE TO DATE: 62M with PMHx of HTN, HLD, Hx of NM 2005, CAD s/p PCI 2005, 06/2022, 12/24/2022 (LCx), h/o alcohol abuse, nicotine use who was recently in ED 04/05/2023 for chest pain, shortness of breath but left AMA.. Patient presented to [facility] yesterday for L sided chest pain, shortness of breath similar to his past presentations. No ischemic changes on EKG and Troponin normal. He was started on heparin gtt and admitted to telemetry with plans for LHC +/- PCI this week. While on telemetry ongoing chest pain not relieved with Dilaudid and patient refusing NTG gtt saying it doesn't work for him. Being transferred to CVICU at request of hospitalist for closer monitoring in setting of ongoing chest pain. On admission to ICU, denies any symptoms as long as he gets the pain meds. Poor historian refusing most of the interview. Seems comfortable. GENERAL ASSESSMENT: # NEURO - Ensure adequate analgesia titrated to patient comfort. on IV dilaudid prn # PULM - on room air. no concerns. # CARDIAC - continue heparin gtt; start NTG gtt if patient agreeable; continue DAPT, continue statin; continue Lopressor 50 BID with holding parameters; plan for LHC +/- PCI this week; EKG reviewed on ICU admission - sinus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 Ticagrelor (Brilinta) 90 MG PO Q12HR Aspirin Ec 81 MG PO DAILY Atorvastatin (Lipitor) 40 MG PO BEDTIME Escitalopram (Lexapro) 20 MG PO DAILY Trazodone (Desyrel) 100 MG PO BEDTIME Metoprolol Tartrate (Lopressor) 50 MG PO BID Past Medical History: Reports: Coronary artery disease, Hypertension, Dyslipidemia. Additional Medical History History of NM Additional Surgical History Cardiac stents, right hip hardware Pt reports no Fam Hx pert to chief complaint. Alcohol Use Alcohol use Drug Use Denies recreational drugs Smoking status for patients 13 years old or older: Current some day smoker Physical Exam Vital Signs Vital Signs First Documented: Result Date Time Pulse Ox 99 05/27 1359 B/P 130/82 05/27 1359 B/P Mean 98 05/27 1359 O2 Delivery Room air 05/27 1359 Temp 36.7 05/27 1359 Pulse 72 05/27 1359 Resp 17 05/27 1358 Last Documented: Result Date Time Pulse Ox 99 05/27 1438 B/P 130/82 05/27 1359 B/P Mean 98 05/27 135 O2 Delivery Room air 05/27 1358 Temp 36.7 05/27 135 Pulse 72 05/27 1359 Resp 17 05/27 1358 Review of Vital Signs Reviewed Focused PE General/Const General/Const Awake, Alert, Cooperative, Not toxic appearing MS Neck Neck Supple, No meningismus Resp/Chest Respiratory/Chest No respiratory distress, No retractions Cardiovascular Cardiovascular Heart rate NL, Peripheral circulation NL Abdomen/GI Abdomen/GI No distention MS Lower Extrem Lower Ext/Pelvis/MS Inspection NL, No swelling, No edema Skin Skin Color NL, Dry Neurologic Neurologic Oriented X3, Speech NL Interpretation Diagnostics Lab Results Interpretation Results Laboratory Tests 05/28/23 1410: [Embedded Image Not Available] Laboratory Tests: 05/27 05/27 05/27 1409 1409 1410 Chemistry Sodium (136 - 145 mmol/L) 128 L Potassium (3.5 - 5.1 mmol/L) 4.9 Chloride (98 - 107 mmol/l) 94 L Carbon Dioxide (20 - 31 mmol/L) 26 BUN (9 - 23 mg/dL) 18 Creatinine (0.70 - 1.30 mg/dL) 1.10 Glomerular Filtr Rate (>60 mL/min) >=60 max estimate Glucose (74 - 106 mg/dL) 75 Calcium (8.7 - 10.4 mg/dL) 9.5 Magnesium (1.6 - 2.6 mg/dL) 1.7 Total Bilirubin (0.3 - 1.2 mg/dL) 0.8 Direct Bilirubin (<0.3 mg/dL) 0.2 AST (<34 U/L) 36 H ALT (10 - 49 U/L) 33 Total Alk Phosphatase (46 - 116 U/L) 90.0 Troponin I High Sens (38.73 - 80.22 pg/mL) 22.9 L B-Natriuretic Peptide (<100 pg/mL) 78 Total Protein (5.7 - 8.2 g/dL) 6.9 Albumin (3.2 - 4.8 g/dL) 4.8 Triglycerides (<150 mg/dL) 182 H Cholesterol (<200 mg/dL) 158 LDL Cholesterol Measurd (<100 mg/dL) 40 HDL Cholesterol (>60 mg/dL) 100 Coronary Risk Interp 1.58 Coagulation PT (10.3 - 12.9 SECONDS) 10.2 L INR (0.9 - 1.11) 0.91 PTT (Brooke) (23.8 - 34.8 secs) 32.8 Hematology WBC (4.8 - 10.8 x10 3/uL) 8.0 RBC (4.70 - 6.10 x10 6/uL) 4.71 Hgb (14.0 - 18.0 g/dL) 15.5 Hct (42.0 - 52.0 %) 44.6 MCV (80.0 - 94.0 fL) 94.7 H MCH (27 - 31 pg) 32.9 H MCHC (33 - 36.5 G/DL) 34.8 RDW (12.9 - 16.9 %) 13.5 Plt Count (150 - 440 x10 3/uL) 176 Serology SARS-CoV-2 Ag (Rapid) (NEGATIVE) NEGATIVE 05/27 1410 Chemistry Troponin I High Sens (38.73 - 80.22 pg/mL) 24.0 L Microbiology: Date/Time Procedure - Status Source Growth 05/27 1405 Influenza Virus Type B Antigen - ORD NASOPHARG 05/27 1405 Influenza Virus Type A Antigen - ORD NASOPHARG Recent Impressions: RADIOLOGY - XR CHEST 1 V 05/27 1425 Report Impression - Status: SIGNED Entered: 05/28/2023 1444 IMPRESSION: Unremarkable frontal chest radiograph. Impression By: CarlTSBrian - NEEMA SIMMONS M.D. Lab Imaging Statement Laboratory radiographic studies reviewed and considered in the medical decision-making. Point of Care Testing Pulse Oximetry Pulse Ox % 99 On: Room air Interpretation Interpreted by me, Pulse oximetry normal Time 1359 ECG #1 Interpretation Text/Dict Note Rate 73 bpm, sinus rhythm with fusion complexes, right superior axis deviation, left bundle branch block. ECG Documented in MUSE Yes Date 05/28/23 Time 1359 Re-Evaluation MDM Free Text MDM Notes Free Text MDM Notes Chest pain. Higher risk. Elevated HEART score 5. Given aspirin on arrival. ECG with chronic LBBB. Trop I neg x1. Case d/w Dr. Lynch and Camron Patel, will follow as cardiology consultation. Case d/w Dr. Rachel, accepted for admission. ED Course Medication(s) Ordered Medication(s) Ordered: Central Nervous System Agents Sig/Alfonzo Start time Last Medication Dose Route Stop Time Status Admin Aspirin 324 MG X1ED STA 05/27 1404 DC 05/27 PO 05/27 1405 1418 Morphine Sulfate 4 MG X1ED STA 05/27 1404 DC 05/27 IV 05/27 1405 1419 Gastrointestinal Drugs Sig/Alfonzo Start time Last Medication Dose Route Stop Time Status Admin Ondansetron HCl 4 MG X1ED STA 05/27 1404 DC 05/27 IV 05/27 1405 1418 Patient Discharge Departure Vital Signs/Condition Vital Signs First Documented: Result Date Time Pulse Ox 99 05/27 1359 B/P 130/82 05/27 1359 B/P Mean 98 05/27 1359 O2 Delivery Room air 05/27 1359 Temp 36.7 05/27 1359 Pulse 72 05/27 1359 Resp 17 05/27 1359 Last Documented: Result Date Time Pulse Ox 99 05/27 1438 B/P 130/82 05/27 1359 B/P Mean 98 05/27 1359 O2 Delivery Room air 05/27 1359 Temp 36.7 05/27 1359 Pulse 72 05/27 1359 Resp 17 05/27 1359 All vital signs available at the time of this entry have been reviewed. Clinical Impression Clinical Impression Primary Impression: Chest pain Secondary Impressions: History of CAD (coronary artery disease) Disposition Decision Hospitalize Hosp Physician Name Nnamdi Rachel MD Hosp Physician Hospitalist Request Time 1529 Request Date 05/28/23 )( Accepts Hospitalization Yes )( Reason for Hospitalization need for ACS evaluation )( Accepted Time 1529 )( Accepted Date 05/28/23 Call Information will see patient, agrees with eval, agrees with plan Discharge/Care Plan Counseled Regarding Diagnosis, Lab results, Imaging studies, Need for admission at 0720 RPT #:[id number] END OF REPORT [facility] 2023-05-28 13:59:00 [id number] [address] PATIENT NAME: KOTA MONTESO ADMIT DATE: 05/28/23 ACCOUNT NO: [id number] ROOM NO: P.0303 AGE: 62 REPORT TYPE: eELECTROCARDIOGRAM SEX: M ADMITTING PHYSICIAN: Nnamdi Rachel MD ATTENDING PHYSICIAN: Nnamdi Rachel MD Order: [id number] Test Reason : EVALU Test Date/Time Stamp: SatMay 28 2023 13:59:46 Blood Pressure : / mmHG Vent. Rate : 073 BPM Atrial Rate : 073 BPM P-R Int : 170 ms QRS Dur : 160 ms QT Int : 458 ms P-R-T Axes : 068 260 058 degrees QTc Int : 504 ms Sinus rhythm with fusion complexes Right superior axis deviation Left bundle branch block Abnormal ECG Confirmed by SATYA BERMUDEZ ([id number]) on 05/29/2023 9:28:33 AM Referred By: Nnamdi Rachel Confirmed by:SATYA BERMUDEZ at 0928 PATIENT NAME: KOTA MONTES [facility] 2023-05-16 15:26:00 [facility] EMERGENCY PROVIDER REPORT REPORT#:[id number] REPORT STATUS: Signed DATE:05/16/23 TIME: 1526 PATIENT: KOTA MONTES UNIT #: [id number] ROOM: BED: AGE: 62 SEX: M PCP PHYS: Kurtis Lynch MD SERVICE AUTHOR: Liset Whiting MD * ALL edits or amendments must be made on the electronic/computer document * HPI-Chest Pain 40 and Over Free Text HPI Notes Free Text HPI Notes Patient is a 62-year-old male with history of CAD status post 7 stents and NM x 2, hypertension, hyperlipidemia who presents today for chest pain. Patient complaining of midsternal chest pain that started 1 hour and a half prior to arrival, pain does not radiate, pain feels similar to NM in the past. 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 His mast NM was 4 months ago and he had stent placement and told his widowmaker was 40% occluded. General Initial Greet Date/Time 05/16/23 1518 Presentation Chief Complaint Chest pain Sudden in Onset? Yes Risk-Chest Pain 40 and Over Risk Stratification )( Coronary Artery Disease Risk factors reviewed )( AMI-Aspirin Aspirin Last 24 Hrs 324 mg, On arrival )( HEART for MACE )( HEART for MACE Response Value History High index of suspicion 2 ECG Interpretation Nonspec repol disturb 1 Age Age 45 - 65 1 Risk Factors for CAD 3+ CAD risk factors 2 Total 6 Review of Systems ROS Statements All systems rev neg except as marked. Past Medical History - Adult Stated Complaint CHEST PAIN Allergies Coded Allergies: No Known Allergies (02/12/21) Home Medications Reported Medications Folic Acid 1 MG PO DAILY Ticagrelor (Brilinta) 90 MG PO Q12HR Aspirin Ec 81 MG PO DAILY Atorvastatin (Lipitor) 40 MG PO BEDTIME Escitalopram (Lexapro) 20 MG PO DAILY Trazodone (Desyrel) 100 MG PO BEDTIME Metoprolol Tartrate (Lopressor) 50 MG PO BID Additional Medical History Hypertension, NM, hypercholesterolemia Additional Surgical History Cardiac stents, right hip hardware Alcohol Use Alcohol use Drug Use Denies recreational drugs Physical Exam Vital Signs Vital Signs First Documented: Result Date Time Pulse Ox 99 05/15 1515 B/P 129/79 05/15 1515 B/P Mean 95 05/15 1515 O2 Delivery Room air 05/15 1515 Temp 36.9 05/15 1515 Pulse 76 05/15 1515 Resp 18 05/15 1515 Last Documented: Result Date Time Pulse Ox 99 05/15 1515 B/P 129/79 05/15 1515 B/P Mean 95 05/15 1515 O2 Delivery Room air 05/15 1515 Temp 36.9 05/15 1515 Pulse 76 05/15 1515 Resp 18 05/15 1515 Review of Vital Signs Reviewed Free Text PE Notes Free Text PE Notes GEN: Appears uncomfortable but no acute distress HEAD: Atraumatic/NC ENT: Moist mucous membranes, PERRLA NECK: Supple, full range of motion RESP: No resp distress, no retractions, normal work of breathing CV: Reg rate rhythm, no murmurs rubs or gallops ABD: Soft, nondistended, non-tender MSK: Full range of motion of all extremities NEURO: Awake, alert oriented SKIN: No rash, warm and dry Interpretation Diagnostics Lab Results Interpretation Results Laboratory Tests 05/16/23 1428: [Embedded Image Not Available] 05/16/23 1518: [Embedded Image Not Available] Laboratory Tests: 05/158 1518 Chemistry Sodium (128 - 145 mmol/L) 129 Potassium (3.6 - 5.1 mmol/L) 4.8 Chloride (98 - 108 mmol/L) 94 L Carbon Dioxide (18 - 33 mmol/L) 28 Anion Gap (2.0 - 16.0) 11.8 BUN (7 - 22 mg/dL) 20 Creatinine (0.6 - 1.2 mg/dL) 1.2 Glomerular Filtr Rate (60 - 115 ml/min) >=60 max estimate BUN/Creatinine Ratio (12.0 - 20.0) 16.7 Glucose (65 - 99 mg/dL) 86 Calcium (8.0 - 10.3 mg/dL) 9.2 Total Bilirubin (0.2 - 1.6 mg/dL) 1.0 AST (11 - 38 U/L) 35 ALT (10 - 47 U/L) 29 Total Alk Phosphatase (42 - 141 U/L) 79 Total Protein (6.4 - 8.1) 7.6 Albumin (3.3 - 5.5 g/dL) 4.3 Hematology WBC (4.5 - 10.7 10 3/uL) 7.7 RBC (4.30 - 5.90 10 6/uL) 4.92 Hgb (14.0 - 18.0 g/dL) 17.5 Hct (40.0 - 55.0 %) 45.9 MCV (81 - 102 fL) 93 MCH (26.0 - 34.0 pg) 35.6 H MCHC (31.0 - 37.0 g/dL) 38.1 H RDW (11.6 - 14.4 %) 14.7 H RDW Std Deviation (35.1 - 43.9 fL) 49.4 H Plt Count (150 - 400 10 3/uL) 189 MPV (9.0 - 13.0 fL) 9.4 Neut % (Auto) (33.0 - 76.0 %) 72.1 Lymph % (Auto) (14.0 - 56.4 %) 24.7 Mixed Cells % (Auto) (1.0 - 10.0 %) 3.2 Neut # (Auto) (1.5 - 7.0 10 3/uL) 5.60 Lymph # (Auto) (1.50 - 4.00 10 3/uL) 1.90 Mixed Cells # (0.1 - 0.6) 0.2 Recent Impressions: RADIOLOGY - XR CHEST 1 V 05/15 1525 Report Impression - Status: SIGNED Entered: 05/16/2023 1419 IMPRESSION: No active disease of the heart or lungs identified. Impression By: Bell - Beata Eden MD Lab Imaging Statement Laboratory radiographic studies reviewed and considered in the medical decision-making. ECG #1 Interpretation Text/Dict Note EKG shows normal sinus rhythm, left axis deviation, left bundle branch block, no STEMI by Sgarbossa criteria. When compared to EKG from April 05, there is no significant change Re-Evaluation MDM Free Text MDM Notes Free Text MDM Notes 62-year-old male with history of CAD, hypertension, hyperlipidemia presented to the emergency department with chest pain. During the management of the patient broad differentials were considered including (but not limited to) ACS, PE, pneumothorax, pneumonia, aortic dissection, tamponade, esophageal rupture. EKG with left bundle branch block but no STEMI by Sgarbossa criteria. Will obtain labs, chest x-ray. Patient treated with 324 aspirin and sublingual nitro. While awaiting lab results, patient stormed out of room demanding to leave shouting that he was sick of "laying there like a dog." I exlained to him we were still waiting for his lab results and risks of leaving AMA including NM, , permanent disability. He proceeded to leave AMA. Independent interpretation of studies were performed by me including imaging, EKG and their findings. An external chart review was completed consisting of prior discharges, clinic notes etc. Other diagnostic testing and social determinants of health that affect the patient's care were also part of the patient's care plan. Decision regarding hospitalization was discussed along with the risks, benefits, and alternative options. ED Course Medication(s) Ordered Medication(s) Ordered: Cardiovascular Drugs Sig/Alfonzo Start time Last Medication Dose Route Stop Time Status Admin Nitroglycerin 0.4 MG X1ED STA 05/15 1530 DC 05/15 SL 05/15 1531 1538 Central Nervous System Agents Sig/Aflonzo Start time Last Medication Dose Route Stop Time Status Admin Aspirin 324 MG X1ED STA 05/15 1518 DC 05/15 PO 05/15 1519 1529 Patient Discharge Departure Vital Signs/Condition Vital Signs First Documented: Result Date Time Pulse Ox 99 05/15 1515 B/P 129/79 05/15 1515 B/P Mean 95 05/15 1515 O2 Delivery Room air 05/15 1515 Temp 36.9 05/15 1515 Pulse 76 05/15 1515 Resp 18 05/15 1515 Last Documented: Result Date Time Pulse Ox 99 05/15 1515 B/P 129/79 05/15 1515 B/P Mean 95 05/15 1515 O2 Delivery Room air 05/15 1515 Temp 36.9 05/15 1515 Pulse 76 05/15 1515 Resp 18 05/15 1515 All vital signs available at the time of this entry have been reviewed. Clinical Impression Clinical Impression Primary Impression: Chest pain Disposition Decision Discharge )( Discharged to Home Yes )( Time 1623 )( Date 05/16/23 Against Medical Advice AMA Note 1 Kota Montes has decided to leave our facility against medical advice. I have assessed the patient's ability to make an informed decision and it is my opinion at this time that the patient has the medical decision-making capacity to comprehend information regarding current medical condition and appreciates the impact of the disease or condition and the consequences of various options for treatment, including foregoing treatment. The patient possesses the ability to evaluate all treatment options, compare the risks and benefits of each option , communicate choice in a consistent manner over time, and is able to make rational choices. I have explained to the patient further testing, treatment, and evaluation I would like to perform during the current emergency department visit as well as any possible alternatives that could be accomplished in a timely manner. I have outlined the possible risks of foregoing any or all of these interventions and the patient understands and acknowledges that the decision to leave may result in undesirable consequences such as , permanent disability, and/or loss of current lifestyle. Even though leaving AMA is not ideal, I have instructed the patient to follow any discharge instructions given, take any medications prescribed, and resume care as soon as possible with another provider. Additionally, we clearly stated that the patient is welcome to return at any time to continue care at our facility. at 1630 RPT #:[id number] END OF REPORT [facility] 2023-05-16 15:16:00 [id number] [place] [id number] PATIENT NAME: KOTA MONTES ADMIT DATE: 05/16/23 ACCOUNT NO: [id number] ROOM NO: AGE: 62 REPORT TYPE: eELECTROCARDIOGRAM SEX: M ADMITTING PHYSICIAN: ATTENDING PHYSICIAN: Order: [id number] Test Reason : Test Date/Time Stamp: SatMay 16 2023 15:16:16 Blood Pressure : / mmHG Vent. Rate : 077 BPM Atrial Rate : 077 BPM P-R Int : 178 ms QRS Dur : 162 ms QT Int : 452 ms P-R-T Axes : 063 -55 092 degrees QTc Int : 511 ms Normal sinus rhythm Possible Left atrial enlargement Left axis deviation Left bundle branch block Abnormal ECG When compared with ECG of 05-APR-2023 14:02, (Unconfirmed) No significant change was found Confirmed by ALBINA CABRERA ([id number]) on 05/18/2023 6:58:15 PM Referred By: Self Referred Confirmed by:ALBINA CABRERA at [address] [address] PATIENT NAME: KOTA MONTES [facility] 2023-04-05 21:02:00 [facility] ([facility]) Hospitalist Clinical Note REPORT #: [id number] REPORT STATUS: Signed DATE: 04/05/23 TIME: 2101 PATIENT: KOTA MONTES UNIT #: [id number] ROOM #: [place].ERTELBED: 5 : 62 AGE: 62 SEX: M ATTEND: Josette Ley DO ADM AUTHOR: Toshia Staples NP ATTENTION *EDITS and/or ADDENDA must be made in Patient Keeper for this note. * * Edits and ammendments created in [facility] are not visible * * in Patient Keeper or the legal medical record ([facility]). * -- CO-SIGNATURE -- COMMENTS: Agree with the findings and plan as documented by Toshia Staples NP. Signed in PatientKeeper by LORRAINE DELGADO MD on 04/08/23 at 10:59 -- NOTATION -- NOTATION: Patient left AMA from ED at 19:15. Signed in PatientKeeper by TOSHIA STAPLES NP on 04/05/23 at 21:03 Cosigned by LORRAINE DELGADO MD on 04/08/23 at 10:59 at 1059 at 1059 ATTENTION *EDITS and/or ADDENDA must be made in Patient Keeper for this note. * * Edits and ammendments created in [facility] are not visible * * in Patient Keeper or the legal medical record ([facility]). * [facility] #: [id number] END OF REPORT [facility] 2023-04-05 14:27:00 [facility] ([facility]) EMERGENCY PROVIDER REPORT REPORT#:[id number] REPORT STATUS: Signed DATE:04/05/23 TIME: 1426 PATIENT: KOTA MONTES UNIT #: [id number] ROOM: [place].ERTEBED: 5 AGE: 62 SEX: M PCP PHYS: No Primary or Family Physician SERVICE AUTHOR: Rupali Westbrook MD * ALL edits or amendments must be made on the electronic/computer document * HPI-Chest Pain 40 and Over General Initial Greet Date/Time 04/05/23 1416 Presentation Chief Complaint Chest pain Sudden in Onset? Yes )( Migration/Movement left shoulder Free Text HPI Notes Free Text HPI Notes Pt has chest pain starting 2 hours prior to arrival. He states the pain is pressure to left side of chest and upper left arm. Pt denies any modifying factors and states pain strted when he was sitting. Pt denies any shortness of breath or syncope. Risk-Chest Pain 40 and Over Risk Stratification )( HEART for MACE )( HEART for MACE Response Value History Mod index of suspicion 1 ECG Interpretation Nonspec repol disturb 1 Age Age 45 - 65 1 Risk Factors for CAD 3+ CAD risk factors 2 Troponin < or = to NL troponin 0 Total 5 HEART Score for MACE 4-7 (mod risk 12%-16.6%) HEART Score Reference Resource material only. Click 'Cancel' button and information will not be inserted into or become part of the medical record Risk factors considered for determining a patient's HEART Score include: hypercholesterolemia (hyperlipidemia), hypertension, diabetes mellitus, cigarette smoking, positive family history and obesity. Major Adverse Cardiac Events (MACE) include: acute myocardial infarction, ischaemic stroke, coronary arterial occlusion and . References: Iglesia CHATTERJEE, J Carlos JORDAN, et al. Chest pain in the emergency room: value of the HEART score. [facility] Heart J. 2008 Ricardo:16(6):191-6. PubMed PMID: 33096125; PubMed Central PMCID: COB5951060. J Carlos JORDAN, Iglesia CHATTERJEE, et al. A prospective validation of the HEART score for chest pain patients at the emergency department. Int J Cardiol. 2013 Dec 3:168(3):2153 -8. Doi: 10.1016/j.ijcard.2013..255. Ep2012May 08. PubMed PMID: 45810016. Past Medical History - Adult Stated Complaint CHEST PAIN Allergies Coded Allergies: No Known Allergies (02/12/21) Home Medications Reported Medications Folic Acid 1 MG PO DAILY Ticagrelor (Brilinta) 90 MG PO Q12HR Aspirin Ec 81 MG PO DAILY Atorvastatin (Lipitor) 40 MG PO BEDTIME Escitalopram (Lexapro) 20 MG PO DAILY Trazodone (Desyrel) 100 MG PO BEDTIME Metoprolol Tartrate (Lopressor) 50 MG PO BID Additional Medical History Hypertension, NM, hypercholesterolemia Additional Surgical History Cardiac stents, right hip hardware Alcohol Use Alcohol use Drug Use Denies recreational drugs Physical Exam Vital Signs Vital Signs First Documented: Result Date Time Pulse Ox 95 04/05 1400 B/P 128/70 04/05 1400 B/P Mean 89.5 04/05 1400 Temp 36.7 04/05 1400 Pulse 91 04/05 1400 Resp 17 04/05 1400 Last Documented: Result Date Time Pulse Ox 97 04/05 1530 B/P 148/84 04/05 1530 B/P Mean 105 04/05 1530 Pulse 82 04/05 1530 Resp 19 04/05 1530 Temp 36.7 04/05 1400 Review of Vital Signs Reviewed Free Text PE Notes Free Text PE Notes GENERAL: Awake alert oriented x 3 HEAD: Normal with no signs of head trauma. EYES: EOMI, conjunctiva normal, no discharge. ENT: moist mucous membranes NECK: Normal range of motion, supple CHEST: Clear breath sounds bilaterally. No wheezes, rales, or rhonchi. CARDIAC: Regular rate and rhythm. S1 and S2, ABDOMEN: Normal and soft with no tenderness GENITOURINARY: Normal, No tenderness MUSCULOSKELETAL: Good range of motion of all major joints NEUROLOGICAL: Alert and oriented, gross movement normal Interpretation Diagnostics Lab Results Interpretation Results Laboratory Tests 04/05/23 1426: [Embedded Image Not Available] Laboratory Tests: 04/05 04/05 1426 1426 Chemistry Sodium (135 - 145 mmol/L) 138 Potassium (3.5 - 5.1 mmol/L) 3.9 Chloride (98 - 107 mmol/L) 103 Carbon Dioxide (21 - 32 mmol/L) 31 Anion Gap (2.0 - 16.0) 7.9 BUN (4 - 23 mg/dL) 16 Creatinine (0.6 - 1.5 mg/dL) 1.2 Glomerular Filtr Rate (ml/min) >=60 max estimate BUN/Creatinine Ratio (12.0 - 20.0) 13.3 Glucose (65 - 99 mg/dL) 110 H Calcium (8.5 - 10.1 mg/dL) 9.6 Troponin I High Sens (0 - 78 pg/mL) 19 B-Natriuretic Peptide (0 - 100 pg/mL) 51 Hematology WBC (4.5 - 11.0 10 3/uL) 9.9 RBC (4.30 - 5.90 10 6/uL) 4.93 Hgb (14.0 - 18.0 g/dL) 16.3 Hct (40.0 - 55.0 %) 47.2 MCV (81 - 102 fL) 96 MCH (26.0 - 34.0 pg) 33.1 MCHC (31.0 - 37.0 g/dL) 34.5 RDW (11.6 - 14.4 %) 13.3 Plt Count (150 - 400 10 3/uL) 178 MPV (9.0 - 12.6 fL) 9.9 Neut % (Auto) (33.0 - 76.0 %) 74.7 Lymph % (Auto) (14.0 - 56.4 %) 17.2 Williams % (Auto) (0.0 - 12.9 %) 6.4 Eos % (Auto) (0.0 - 7.0 %) 0.7 Baso % (Auto) (0 - 2.0 %) 0.5 Neut # (Auto) (1.5 - 7.0 10 3/uL) 7.36 H Lymph # (Auto) (1.50 - 4.00 10 3/uL) 1.69 Williams # (Auto) (0.20 - 0.80 10 3/uL) 0.63 Eos # (Auto) (0.0 - 0.5 10 3/uL) 0.07 Baso # (Auto) (0.0 - 0.1 10 3/uL) 0.05 Abs Immat Gran (auto) (0.000 - 0.100 x10 3/uL) 0.050 Immature Gran % (0.0 - 1.0 %) 0.5 Nucleated RBC % (0 - 0.2 %) 0.0 Nucleated RBCs # (0.000 - 0.012 10 3/uL) 0.000 04/05 04/05 1454 1854 Chemistry Troponin I High Sens (0 - 78 pg/mL) 23 Triglycerides (0 - 149 mg/dL) 205 H Cholesterol (0 - 200 mg/dL) 117 LDL Cholesterol Measurd (0 - 100 mg/dL) 43 HDL Cholesterol (40 - 60 mg/dL) 58 Cholesterol/HDL Ratio (1 - 6) 2 Serology SARS-CoV-2 Ag (Rapid) (Negative) NEGATIVE Toxicology Ethyl Alcohol (0 - 3 mg/dL) < 3 Microbiology: Date/Time Procedure - Status Source Growth 04/05 145 Influenza Virus Type B Antigen - COMP NASOPHARG 04/05 145 Influenza Virus Type A Antigen - COMP NASOPHARG Recent Impressions: RADIOLOGY - XR CHEST 1 V 04/05 1408 Report Impression - Status: SIGNED Entered: 04/05/2023 1456 IMPRESSION: Central pulmonary vascular congestion. Impression By: [email or web address] - Danny Myers MD Re-Evaluation [facility] ED Course Medication(s) Ordered Medication(s) Ordered: Central Nervous System Agents Sig/Alfonzo Start time Last Medication Dose Route Stop Time Status Admin Aspirin 324 MG X1ED STA 04/05 1408 CAN PO 04/05 1409 Aspirin 324 MG X1ED STA 04/05 1407 DC 04/05 PO 04/05 1408 1449 Gastrointestinal Drugs Sig/Alfonzo Start time Last Medication Dose Route Stop Time Status Admin Al Hydrox/Mg Hydrox/ 30 ML X1ED STA 04/05 1728 DC 04/05 Simethicone PO 04/05 1729 1731 MDM-Complexity Differential Diagnosis Includes but is not limited to chest pain acute, STEMI, NSTEMI, GERD, AAA MDM-Discussion Discussed With/What This patient patient EKG evaluated with Dr. Coronado MDM-Treatment/Evaluation ED Course Patient is a 62-year-old male who presents to the ED with past medical history of CAD, NM x 2, and stent placement x 7 with complaint of left-sided chest pain. He described the pain as pressure to the left side of the chest that was a 8 out of 10 on pain scale and achy radiates to the left shoulder. Patient is also stating he is having some indigestion. On exam no acute abnormality noted. Shared Decision-Making With patient Social Determinants of Health Health literacy Patient Discharge Departure Vital Signs/Condition Vital Signs First Documented: Result Date Time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 ADMIT DATE: 12/24/22 ACCOUNT NO: [id number] ROOM NO: P.0406 AGE: 62 REPORT TYPE: OPERATIVE REPORT SEX: M ADMITTING PHYSICIAN:Nnamdi Rachel MD ATTENDING PHYSICIAN:Nnamdi Rachel MD OPERATION DATE: 12/24/2022 PROCEDURES: 1. Percutaneous coronary intervention of left circumflex with rotablation and stenting. 2. Selective coronary angiogram. 3. An 8-Chinese Angio-Seal right femoral artery. 4. Moderate sedation of 58 minutes. INDICATIONS FOR PROCEDURE: Mr. Montes is a 62-year-old gentleman, who had high risk percutaneous coronary intervention of the right coronary artery in the past along with the circumflex. The right was successfully stented at that time. However, the left had a dissection and was very difficult to cross due to heavy calcification. The patient comes in with unstable angina. PREPROCEDURE DIAGNOSIS: Unstable angina. POSTPROCEDURE DIAGNOSES: Successful percutaneous coronary intervention with rotablation and stenting of the left circumflex artery. ARTIFICIAL PLASTIC EYE MAKER: Kurtis Lynch MD CURTAIN SUPERVISOR: Dr. Malachi Fitzgerald. ANESTHESIA: Moderate sedation with local anesthetic. PROCEDURE IN DETAIL: After obtaining informed consent, the patient was brought to the Cardiac Catheterization Laboratory where the patient was prepped and draped in normal sterile fashion. I attest that moderate conscious sedation was supervised by me, Kurtis Lynch MD. An independent trained observer pushed medications at my direction and monitored the patient's level of consciousness and physiological status throughout. 5 mg of intravenous Versed and 150 micrograms of Fentanyl were given to sedate the patient. Start time was 14:33, end time was 15:29 for a total of 18 minutes. Using 20 mL of Xylocaine, right groin was locally anesthetized. Using a micropuncture needle with ultrasonography, the right common femoral artery was cannulated with a 5- Chinese sheath, through this we took a 5-Chinese JL4 guiding catheter and angiography was performed. This demonstrated a heavily calcified circumflex artery with a long greater than 30 mm calcified lesion. There was a large calcific nodule in the proximal portion creating a 95% stenosis at the tightest. Heparin was given for a therapeutic ACT. The guide catheter was then exchanged out. A 7-Chinese sheath was placed and through this, we took a 7-Chinese CLS 4.0 guiding catheter and cannulated the left main. PATIENT NAME: KOTA MONTES Through this, we took a Fielder XT wire 0.014" through a Turnpike low profile catheter and crossed the lesions in the circumflex. The Turnpike was taken over this, and placed in the distal circumflex. The Fielder was removed and exchanged for a RotoWire. Over the RotoWire, the [place] low profile catheter was removed. Over the RotoWire, we took a [employer] RotaPro 1.5 mm tammy and performed approximately 7 to 8 runs of the rotational atherectomy system. Over the course of approximately 50 mm. The Rotablator was then removed. The wire was then exchanged over the [place]pike low profile catheter for a ChoICE floppy wire. Over the ChoICE floppy wire, we took a Sapphire II PRO balloon catheter, 2 mm x 20 mm and predilated the circumflex at 8 atmospheres on two separate inflations. We then took a Xience Skypoint 2.25 mm x 38 mm stent and stented from the mid circumflex to the proximal circumflex at 13 atmospheres. We then took a second Xience Skypoint 2.5 mm x 12 mm stent and stented the proximal circumflex overlapping with the previous stent distally. We then postdilated these 2 stents with a Sapphire NC 24, PTCA balloon 2.5 mm x 15 mm at high pressure. Post-angiogram revealed 0% residual stenosis. Of note, there was a 40% mid LAD lesion at the first septal bone process operator. After this, the catheters were removed. An 8-Chinese Angio-Seal was used to close the arteriotomy. There were no complications. ESTIMATED BLOOD LOSS: Less than 10 mL. IMPRESSION: 1. Coronary artery anatomy as above. 2. Successful percutaneous coronary intervention of the left circumflex artery with rotational atherectomy and 2 drug-eluting stents. PLAN: The patient has been given Brilinta and aspirin and he will go to the post-catheterization area. Dictated By: Kurtis Lynch MD Date Dictated: 12/24/2022 15:59:32 Date Transcribed: 12/24/2022 16:45:35 MEDHAT/JOCELIN/COLLIN Receipt ID: [id number] Authenticated and Edited by Kurtis Lynch MD On 01/07/23 8:06:36 PM at 0808 PATIENT NAME: KOTA MONTESUJILLO [facility] 2022-12-24 14:34:00 [facility] ([facility]) Cardiology Clinical Note REPORT #: [id number] REPORT STATUS: Signed DATE: 12/24/22 TIME: 1434 PATIENT: KOTA MONTES UNIT #: [id number] ROOM #: P.0406 BED: A : 61 AGE: 62 SEX: M ATTEND: Nnamdi Rachel MD ADM AUTHOR: Camron Patel ATTENTION *EDITS and/or ADDENDA must be made in Patient Keeper for this note. * * Edits and ammendments created in [employer] are not visible * * in Patient Keeper or the legal medical record ([facility]). * -- NOTATION -- PURPOSE: S/p PCI NOTATION: The patient had percutaneous coronary intervention today. Dr. Lynch met with the patient's post-procedure and all of her questions were addressed. No post-op issues reported. Patient transferred to the floor, CVIMU. -- ATTESTATION -- CARE ACTIVITIES / CARE COORDINATION: - I have reviewed the history and repeated the carias elements - I have seen and examined this patient - I have reviewed the progress in the clinical course since the last examination - I have discussed the patient's condition with other members of the care team ADDITIONAL DETAIL: Plan of care discussed with Dr. Kurtis Lynch Signed in PatientKeeper by Camron Patel on 12/24/22 at 19:28 Cosigned by KURTIS LYNCH MD on 12/25/22 at 08:51 at 0851 at 0851 ATTENTION *EDITS and/or ADDENDA must be made in Patient Keeper for this note. * * Edits and ammendments created in [facility] are not visible * * in Patient Keeper or the legal medical record ([facility]). * [facility] #: [id number] END OF REPORT [facility] 2022-11-28 14:40:00 [facility] ([facility]) EMERGENCY PROVIDER REPORT REPORT#:[id number] REPORT STATUS: Signed DATE:11/28/22 TIME: 1440 PATIENT: KOTA MONTES UNIT #: [id number] ROOM: BED: AGE: 62 SEX: M PCP PHYS: URGENT [facility]ARE [facility] SERVICE DT: AUTHOR: Mylene Prescott CURRICULUM CONSULTANT * ALL edits or amendments must be made on the electronic/computer document * Mylene Prescott 11/28/22 1440: HPI-Neck Pain General Initial Greet Date/Time 11/28/22 1351 Presentation Chief Complaint Neck pain Free Text HPI Notes Free Text HPI Notes 62-year-old male with a history of hypertension, hypercholesterolemia, NM presents the ER with complaint of right neck pain that started 2 months ago and continues to get worse. Denies chest pain, fever, stiffness, or any other complaint. Patient states is worse when he wakes up. Patient states he went to an urgent care couple weeks ago but did not like them so he left. Denies numbness, tingling, bowel or bladder incontinence, weakness or any other complaint. Risk-Neck Pain Risk Stratification High Risk for Injury Risk factors reviewed Review of Systems ROS Statements All systems rev neg except as marked. Past Medical History - Adult Stated Complaint NECK PAIN,BACK PAINR/SHOULDER PAIN Allergies Coded Allergies: No Known Allergies (02/12/21) Home Medications Active Scripts Folic Acid 1 MG PO DAILY Folic Acid 1 MG PO DAILY #100 TAB Prov: 06/06/22 Ticagrelor (Brilinta) 90 MG PO Q12HR Ticagrelor (Brilinta) 90 MG PO Q12HR #60 TAB Ref 1 Prov: 06/06/22 Thiamine (Vitamin B-1) 100 MG PO DAILY Thiamine (Vitamin B-1) 100 MG PO DAILY #100 TAB Prov: 06/06/22 Isosorbide Mononitrate Sr (Imdur) 30 MG PO DAILY Isosorbide Mononitrate Sr (Imdur) 30 MG PO DAILY #90 TAB Prov: 06/06/22 Aspirin Ec 81 MG PO DAILY Aspirin Ec 81 MG PO DAILY #90 TAB Prov: 06/06/22 Atorvastatin (Lipitor) 40 MG PO BEDTIME Atorvastatin (Lipitor) 40 MG PO BEDTIME #90 TAB Prov: 06/06/22 Chlordiazepoxide (Librium) 5 MG PO BID Chlordiazepoxide (Librium) 5 MG PO BID #10 CAP Prov: 06/06/22 Reported Medications Clopidogrel Bisulfate (Plavix) 75 MG PO DAILY Nicotine (Habitrol 14 Mg) 14 MG TOPICAL DAILY Additional Medical History Hypertension, NM, hypercholesterolemia Additional Surgical History Cardiac stents, right hip hardware Physical Exam Vital Signs Vital Signs First Documented: Result Date Time Pulse Ox 95 11/28 1420 B/P 122/80 11/28 1420 B/P Mean 94 11/28 1420 O2 Delivery Room air 11/28 1420 Temp 36.8 11/28 1420 Pulse 76 11/28 1420 Resp 16 11/28 1420 Last Documented: Result Date Time Pulse Ox 95 11/28 1420 B/P 122/80 11/28 1420 B/P Mean 94 11/28 1420 O2 Delivery Room air 11/28 1420 Temp 36.8 11/28 1420 Pulse 76 11/28 1420 Resp 16 11/28 1420 Review of Vital Signs Reviewed Free Text PE Notes Free Text PE Notes HEAD: Atraumatic/NC, EYES: PERRL, conj clear, ENT: Membranes moist, NECK: Supple, midline vertebral and paraspinous tenderness on palpation, painful range of motion. RESP: Lungs clear, no rhonchi no wheezing no rales CVS: Regular rate and rhythm ABD: Soft/non-tender, EXT: No gross abnormality, SKIN: No rashes, warm/dry, NEURO: alert oriented, NEURO: gross movement NL, PSYCH: NL thought content Re-Evaluation MDM Free Text MDM Notes Free Text MDM Notes 62-year-old male with a history of hypertension, hypercholesterolemia, NM presents the ER with complaint of right neck pain that started 2 months ago and continues to get worse. Denies chest pain, fever, stiffness, or any other complaint. Patient states is worse when he wakes up. Patient states he went to an urgent care couple weeks ago but did not like them so he left. Denies numbness, tingling, bowel or bladder incontinence, weakness or any other complaint. On exam patient has midline vertebral and paraspinous tenderness of the cervical spine., Painful range of motion. No stiffness, no nuchal rigidity. Cloth Printing Inspector are equal bilaterally. Discussed with patient CT of the cervical spine patient was offered Corinne for pain but refused. 1427 told the nurse he was leaving did not want to wait. ED Course Medication(s) Ordered Medication(s) Ordered: Central Nervous System Agents Sig/Alfonzo Start time Last Medication Dose Route Stop Time Status Admin Ketorolac 30 MG X1ED STA 11/28 1423 DC Tromethamine IM 11/28 1424 Patient Discharge Departure Vital Signs/Condition Vital Signs First Documented: Result Date Time Pulse Ox 95 11/28 1420 B/P 122/80 11/28 1420 B/P Mean 94 11/28 1420 O2 Delivery Room air 11/28 1420 Temp 36.8 11/28 1420 Pulse 76 11/28 1420 Resp 16 11/28 1420 Last Documented: Result Date Time Pulse Ox 95 11/28 1420 B/P 122/80 11/28 1420 B/P Mean 94 11/28 1420 O2 Delivery Room air 11/28 1420 Temp 36.8 11/28 1420 Pulse 76 11/28 1420 Resp 16 11/28 1420 All vital signs available at the time of this entry have been reviewed. Condition Stable Clinical Impression Clinical Impression Primary Impression: Neck pain Disposition Decision Other )( Time 1427 )( Date 11/28/22 Against Medical Advice Yes Liset Whiting 11/28/222118: Patient Discharge Departure Supervising Physician Note MidLv Saw Pt Alone I have reviewed the PA/CURRICULUM CONSULTANT's note and plan of care. I was available for consultation as needed at all times during the patient's visit in the emergency department. I agree with the clinical impression, plan and disposition. at 1500 at 2119 RPT #:[id number] END OF REPORT [facility] 2022-11-13 12:43:00 [facility] ([facility]) EMERGENCY PROVIDER REPORT REPORT#:[id number] REPORT STATUS: Signed DATE:11/13/22 TIME: 1243 PATIENT: KOTA MONTES UNIT #: [id number] ROOM: BED: AGE: 62 SEX: M PCP PHYS: [facility] SERVICE AUTHOR: Chad Haile MD * ALL edits or amendments must be made on the electronic/computer document * HPI-Neck Pain General Initial Greet Date/Time 11/13/22 1234 Presentation Chief Complaint Neck pain Hx Obtained From Patient Sudden in Onset? Yes Onset Occurred Today Symptom Duration Since onset Caused by No trauma by history Location Lateral neck R Quality Aching, Burning Radiation Does not radiate. Pain/Sev: Onset Mild Pain/Sev: Current Moderate Associated with Reports: Stiff neck. Exacerbated by Nothing Relieved by Nothing Risk-Neck Pain Risk Stratification High Risk for Injury Risk factors reviewed Review of Systems ROS Statements All systems rev neg except as marked. (as per hpi) Past Medical History - Adult Stated Complaint RIGHT NECK PAIN RDAIATES TO HIS SHOULDER FOR 3 WKS Allergies Coded Allergies: No Known Allergies (02/12/21) Home Medications Active Scripts Folic Acid 1 MG PO DAILY Folic Acid 1 MG PO DAILY #100 TAB Prov: 06/06/22 Ticagrelor (Brilinta) 90 MG PO Q12HR Ticagrelor (Brilinta) 90 MG PO Q12HR #60 TAB Ref 1 Prov: 06/06/22 Thiamine (Vitamin B-1) 100 MG PO DAILY Thiamine (Vitamin B-1) 100 MG PO DAILY #100 TAB Prov: 06/06/22 Isosorbide Mononitrate Sr (Imdur) 30 MG PO DAILY Isosorbide Mononitrate Sr (Imdur) 30 MG PO DAILY #90 TAB Prov: 06/06/22 Aspirin Ec 81 MG PO DAILY Aspirin Ec 81 MG PO DAILY #90 TAB Prov: 06/06/22 Atorvastatin (Lipitor) 40 MG PO BEDTIME Atorvastatin (Lipitor) 40 MG PO BEDTIME #90 TAB Prov: 06/06/22 Chlordiazepoxide (Librium) 5 MG PO BID Chlordiazepoxide (Librium) 5 MG PO BID #10 CAP Prov: 06/06/22 Reported Medications Clopidogrel Bisulfate (Plavix) 75 MG PO DAILY Nicotine (Habitrol 14 Mg) 14 MG TOPICAL DAILY Additional Medical History CAD, hypertension, NM, hyperlipidemia, Additional Surgical History Angioplasty, right hip surgery, cardiac stent, Alcohol Use Alcohol use Drug Use Denies recreational drugs Physical Exam Vital Signs Vital Signs First Documented: Result Date Time Pulse Ox 100 11/13 1233 B/P 143/87 11/13 1233 B/P Mean 105 11/13 1233 O2 Delivery Room air 11/13 1233 Temp 36.7 11/13 1233 Pulse 85 11/13 1233 Resp 16 11/13 1233 Last Documented: Result Date Time Pulse Ox 100 11/13 1233 B/P 143/87 11/13 1233 B/P Mean 105 11/13 1233 O2 Delivery Room air 11/13 1233 Temp 36.7 11/13 1233 Pulse 85 11/13 1233 Resp 16 11/13 1233 Review of Vital Signs Reviewed Free Text PE Notes Free Text PE Notes Basic Physical Exam Basic PE HEAD: Atraumatic/NC, EYES: PERRL, conj clear, ENT: Membranes moist, NECK: Supple, no deformity, normal range of motion EXT: No gross abnormality, SKIN: No rashes, warm/dry, NEURO: alert oriented,gross movement NL, PSYCH: NL thought content Focused PE General/Const General/Const Awake, Well hydrated Resp/Chest Respiratory/Chest Atraumatic, No respiratory distress Cardiovascular Cardiovascular Cap refill not delayed, Peripheral circulation NL Abdomen/GI Abdomen/GI Atraumatic, abd nondistended MS Back Back Full range of motion, no deformity Interpretation Diagnostics Lab Results Interpretation Considerations Independ review imaging, Reviewed prior records Results Recent Impressions: RADIOLOGY - XR C-SPINE 2-3 VIEWS 11/13 1255 Report Impression - Status: SIGNED Entered: 11/13/2022 1310 IMPRESSION: 1. Moderate diffuse degenerative changes of the cervical spine as described. These findings are most pronounced in the lower levels. No acute findings are seen. 2. Extensive carotid artery calcified atherosclerosis. Impression By: Antonietta - Telly Melendez Jr, MD Imaging Statement Radiographic studies reviewed and considered in the medical decision-making. Re-Evaluation MDM Differential Diagnosis )( Differential Diagnosis Abrasion, Burn, Cervical muscle spasm, Cervical sprain /strain, Degen joint disease, Diskitis, Epidural abscess, Epidural bleed Free Text MDM Notes Free Text MDM Notes The medical decision making includes independent review of any ordered imaging and EKGs and are in agreement with radiology interpretation unless documented otherwise. Individual labs and/or microbiologic data along with urine studies ordered and resulted at time of dictation have been interpreted by me and do not appear to contribute to an emergency diagnosis unless as mentioned above. Outside records including the most recent discharge summary, if available, have been reviewed. Consultants including hospitalists involved in the case as ordered/documented in the EMR agree with ED plan unless as documented above. Patient Discharge Departure Vital Signs/Condition Vital Signs First Documented: Result Date Time Pulse Ox 100 11/13 1233 B/P 143/87 09/12 1233 B/P Mean 105 09/12 1233 O2 Delivery Room air / 1233 Temp 36.7 / 1233 Pulse 85 /12 1233 Resp 16 09/ 1233 Last Documented: Result Date Time Pulse Ox 100 09/ 1233 B/P 143/87 09/12 1233 B/P Mean 105 09/12 1233 O2 Delivery Room air 11/13 1233 Temp 36.7 09/12 1233 Pulse 85 09/12 1233 Resp 16 11/13 1233 All vital signs available at the time of this entry have been reviewed. Condition Stable Clinical Impression Clinical Impression Primary Impression: Neck strain Secondary Impressions: Osteoarthritis of cervical spine Disposition Decision Discharge )( Discharged to Home Yes )( Time 1312 )( Date 11/13/22 Discharge/Care Plan Counseled Regarding Diagnosis, Imaging studies, Need for follow-up, When to return to ED Patient Instructions ED Neck Sprain or Strain Referrals Provider Referral: Chinedu Washburn MD Address: [address] [place] [address] Discharge Note I have spoken with the patient and/or caregivers. I have explained the patient's condition, diagnoses and treatment plan based on the information available to me at this time. I have answered the patient's and/or caregiver's questions and addressed any concerns. The patient and/or caregivers have as good an understanding of the patient's diagnosis, condition and treatment plan as can be expected at this point. The vital signs have been stable. The patient's condition is stable and appropriate for discharge from the emergency department. The patient will pursue further outpatient evaluation with the primary care physician or other designated or consulting physician as outlined in the discharge instructions. The patient and/or caregivers are agreeable to this plan of care and follow-up instructions have been explained in detail. The patient and/or caregivers have received these instructions in written format and have expressed an understanding of the discharge instructions. The patient and/or caregivers are aware that any significant change in condition or worsening of symptoms should prompt an immediate return to this or the closest emergency department or a call to 911. at 0914 [facility] #:[id number] END OF REPORT [facility] 2022-07-13 11:01:00 [facility] ([facility]) EMERGENCY PROVIDER REPORT REPORT#:[id number] REPORT STATUS: Signed DATE:07/13/22 TIME: 1101 PATIENT: KOTA MONTES UNIT #: [id number] ROOM: BED: AGE: 61 SEX: M PCP PHYS: No Primary or Family Physician SERVICE AUTHOR: Sandrita Keating * ALL edits or amendments must be made on the electronic/computer document * Sandrita Keating 07/13/22 1101: HPI-Chest Pain 40 and Over Free Text HPI Notes Free Text HPI Notes 61-year-old male presents to the ER with past medical history of NM, hyperlipidemia, hypertension, CAD status post stents 2 months ago presents the ER with complaints of left rib, chest pain started a week and a half ago. Patient reports the pain to be a 1 out of 10. Patient states it feels like it is musculoskeletal pain. Patient reports he does not feel like his heart attack. Patient denies any injury or trauma. Patient states it is a stabbing pain that waxes and wanes. Patient denies any other symptoms at this time. Patient is currently taking blood thinner. General Initial Greet Date/Time 07/13/22 0943 Presentation Chief Complaint Chest pain Sudden in Onset? No Symptom Duration Waxes and wanes )( Migration/Movement None Risk-Chest Pain 40 and Over Risk Stratification )( Coronary Artery Disease Risk factors reviewed, Hyperlipidemia, Hypertension, Known CAD, Smoking )( Thoracic Aortic Dissection Risk factors reviewed, Hypertension )( Pulmonary Embolism Risk factors reviewed )( AMI-Aspirin Aspirin Last 24 Hrs 324 mg, On arrival )( HEART for MACE )( HEART for MACE Response Value History High index of suspicion 2 Age Age 45 - 65 1 Risk Factors for CAD 3+ CAD risk factors 2 Total 5 Review of Systems ROS Statements All systems rev neg except as marked. Free Text ROS Notes Free Text ROS Notes Chest pain, left rib pain Past Medical History - Adult Stated Complaint CHEST PAIN, NEAR RIB PAIN Allergies Coded Allergies: No Known Allergies (12/12/21) Home Medications Active Scripts Folic Acid 1 MG PO DAILY Folic Acid 1 MG PO DAILY #100 TAB Prov: 06/06/22 Ticagrelor (Brilinta) 90 MG PO Q12HR Ticagrelor (Brilinta) 90 MG PO Q12HR #60 TAB Ref 1 Prov: 06/06/22 Thiamine (Vitamin B-1) 100 MG PO DAILY Thiamine (Vitamin B-1) 100 MG PO DAILY #100 TAB Prov: 06/06/22 Isosorbide Mononitrate Sr (Imdur) 30 MG PO DAILY Isosorbide Mononitrate Sr (Imdur) 30 MG PO DAILY #90 TAB Prov: 06/06/22 Aspirin Ec 81 MG PO DAILY Aspirin Ec 81 MG PO DAILY #90 TAB Prov: 06/06/22 Atorvastatin (Lipitor) 40 MG PO BEDTIME Atorvastatin (Lipitor) 40 MG PO BEDTIME #90 TAB Prov: 06/06/22 Chlordiazepoxide (Librium) 5 MG PO BID Chlordiazepoxide (Librium) 5 MG PO BID #10 CAP Prov: 06/06/22 Reported Medications Clopidogrel Bisulfate (Plavix) 75 MG PO DAILY Nicotine (Habitrol 14 Mg) 14 MG TOPICAL DAILY Additional Medical History CAD, hypertension, NM, hyperlipidemia, Additional Surgical History Angioplasty, right hip surgery, cardiac stent, Alcohol Use Alcohol use Drug Use Denies recreational drugs Smoking status for patients 13 years old or older: Current every day smoker Physical Exam Vital Signs Vital Signs First Documented: Result Date Time O2 Delivery Room air 07/13 0840 Pulse Ox 100 07/13 0942 B/P 134/82 07/13 0942 B/P Mean 99.6 07/13 0942 Temp 36.9 07/13 0942 Pulse 71 07/13 0942 Resp 18 07/13 0942 Last Documented: Result Date Time Pulse Ox 100 07/13 1250 B/P 136/78 07/13 1250 B/P Mean 97 07/13 1250 Pulse 74 07/13 1250 Resp 19 07/13 1250 Temp 36.9 / 0942 O2 Delivery Room air 07/13 0940 Review of Vital Signs Reviewed Free Text PE Notes Free Text PE Notes GEN: Well appearing HEAD: Atraumatic/NC ENT: atraumatic, airway patent, no drainage, no epistaxis NECK: Supple, full range of motion, Trachea midline RESP: No resp distress, normal breath sounds CV: Reg rate rhythm, no edema ABD: Soft/non-tender, MSK -full range of motion of all extremities NEURO: alert oriented, PSYCH: NL thought content Interpretation Diagnostics Lab Results Interpretation Considerations Independ review imaging Results Laboratory Tests 07/13/22 1005: [Embedded Image Not Available] Laboratory Tests: 07/13 07/13 1005 1155 Chemistry Sodium (135 - 145 mmol/L) 128 L Potassium (3.5 - 5.1 mmol/L) 4.0 Chloride (98 - 107 mmol/L) 98 Carbon Dioxide (21 - 32 mmol/L) 28 Anion Gap (2.0 - 16.0) 6.0 BUN (4 - 23 mg/dL) 5 Creatinine (0.6 - 1.5 mg/dL) 0.8 Glomerular Filtr Rate (ml/min) >=60 max estimate BUN/Creatinine Ratio (12.0 - 20.0) 6.3 L Glucose (65 - 99 mg/dL) 88 Calcium (8.5 - 10.1 mg/dL) 9.6 Troponin I High Sens (0 - 78 pg/mL) 34 31 Hematology WBC (4.5 - 11.0 10 3/uL) 6.9 RBC (4.30 - 5.90 10 6/uL) 4.01 L Hgb (14.0 - 18.0 g/dL) 14.0 Hct (40.0 - 55.0 %) 40.8 MCV (81 - 102 fL) 102 MCH (26.0 - 34.0 pg) 34.9 H MCHC (31.0 - 37.0 g/dL) 34.3 RDW (11.6 - 14.4 %) 13.3 Plt Count (150 - 400 10 3/uL) 275 MPV (9.0 - 12.6 fL) 8.8 L Neut % (Auto) (33.0 - 76.0 %) 76.8 H Lymph % (Auto) (14.0 - 56.4 %) 12.1 L Williams % (Auto) (0.0 - 12.9 %) 8.5 Eos % (Auto) (0.0 - 7.0 %) 1.6 Baso % (Auto) (0 - 2.0 %) 0.6 Neut # (Auto) (1.5 - 7.0 10 3/uL) 5.26 Lymph # (Auto) (1.50 - 4.00 10 3/uL) 0.83 L Williams # (Auto) (0.20 - 0.80 10 3/uL) 0.58 Eos # (Auto) (0.0 - 0.5 10 3/uL) 0.11 Baso # (Auto) (0.0 - 0.1 10 3/uL) 0.04 Abs Immat Gran (auto) (0.000 - 0.100 x10 3/uL) 0.030 Immature Gran % (0.0 - 1.0 %) 0.4 Nucleated RBC % (0 - 0.2 %) 0.0 Nucleated RBCs # (0.000 - 0.012 10 3/uL) 0.000 Microbiology: Date/Time Procedure - Status Source Growth 07/13 1134 Blood Culture - CAN BLOOD Cancelled: Cancelled via OE: Physician Decision 07/13 113 Blood Culture - CAN BLOOD Cancelled: Cancelled via OE: Physician Decision 07/13 113 Blood Culture - CAN BLOOD Cancelled: Cancelled via OE: Physician Decision 07/13 113 Blood Culture - CAN BLOOD Cancelled: Cancelled via OE: Physician Decision Recent Impressions: RADIOLOGY - XR CHEST 1 V 07/13 0950 Report Impression - Status: SIGNED Entered: 07/13/2022 1049 IMPRESSION: No acute cardiopulmonary findings. Impression By: Suzanne - Danny Myers MD Lab Imaging Statement Laboratory radiographic studies reviewed and considered in the medical decision-making. Re-Evaluation MDM Free Text MDM Notes Free Text MDM Notes 61-year-old male presents to the ER with complaints of left rib pain, chest pain that started a week and a half ago. Differentials include but not limited to NM, electrolyte imbalance, angina, arrhythmia. Patient sodium 128 otherwise unremarkable labs. Patient's troponin is negative x2. We will discharge patient home patient to follow-up with business department chair. Patient agrees with discharge plan. Discussed with Dr. Haile he agrees with plan. ED Course Medication(s) Ordered Medication(s) Ordered: Anti-Infective Agents Sig/Alfonzo Start time Last Medication Dose Route Stop Time Status Admin Ceftriaxone Sodium 1,000 MG X1ED STA 07/13 1134 CAN Sodium Chloride 10 ML IV 07/13 1136 Central Nervous System Agents Sig/Alfonzo Start time Last Medication Dose Route Stop Time Status Admin Aspirin 324 MG X1ED STA 07/13 0941 DC / PO 07/13 0942 1128 Electrolytic, Caloric, And Leandro Sig/Alfonzo Start time Last Medication Dose Route Stop Time Status Admin Sodium Chloride 1,000 ML X1ED STA 07/13 1044 DC 07/13 IV 07/13 1143 1129 Patient Discharge Departure Vital Signs/Condition Vital Signs First Documented: Result Date Time O2 Delivery Room air 07/13 0940 Pulse Ox 100 07/13 0942 B/P 134/82 07/13 0942 B/P Mean 99.6 07/13 0942 Temp 36.9 07/13 0942 Pulse 71 07/13 0942 Resp 18 07/13 0942 Last Documented: Result Date Time Pulse Ox 100 07/13 1250 B/P 136/78 / 1250 B/P Mean 97 07/13 1250 Pulse 74 07/13 1250 Resp 19 07/13 1250 Temp 36.9 07/13 0942 O2 Delivery Room air 07/13 0940 All vital signs available at the time of this entry have been reviewed. Clinical Impression Clinical Impression Primary Impression: Chest pain, non-cardiac Secondary Impressions: Hyponatremia Disposition Decision Discharge )( Discharged to Home Yes )( Time 1229 )( Date 07/13/22 Discharge/Care Plan Counseled Regarding Diagnosis, Lab results, Imaging studies, Need for follow-up, When to return to ED Patient Instructions ED Chest Pain, Noncardiac Additional Instructions PLEASE RETURN TO THE ER FOR ANY SYMPTOMS THAT WORSEN OR DEVELOPMENT OF NEW SYMPTOMS. Please follow-up with your PCP and cardiology in the next 2 to 3 days. Discharge Note I have spoken with the patient and/or caregivers. I have explained the patient's condition, diagnoses and treatment plan based on the information available to me at this time. I have answered the patient's and/or caregiver's questions and addressed any concerns. The patient and/or caregivers have as good an understanding of the patient's diagnosis, condition and treatment plan as can be expected at this point. The vital signs have been stable. The patient's condition is stable and appropriate for discharge from the emergency department. The patient will pursue further outpatient evaluation with the primary care physician or other designated or consulting physician as outlined in the discharge instructions. The patient and/or caregivers are agreeable to this plan of care and follow-up instructions have been explained in detail. The patient and/or caregivers have received these instructions in written format and have expressed an understanding of the discharge instructions. The patient and/or caregivers are aware that any significant change in condition or worsening of symptoms should prompt an immediate return to this or the closest emergency department or a call to 911. Chad Haile 08/08/22 0733: Re-Evaluation MDM Free Text MDM Notes Free Text MDM Notes The medical decision making includes independent review of any ordered imaging and EKGs and are in agreement with radiology interpretation unless documented otherwise. Individual labs and/or microbiologic data along with urine studies ordered and resulted at time of dictation have been interpreted by me and do not appear to contribute to an emergency diagnosis unless as mentioned above. Outside records including the most recent discharge summary, if available, have been reviewed. Consultants including hospitalists involved in the case as ordered/documented in the EMR agree with ED plan unless as documented above. Patient Discharge Departure Supervising Physician Note MidLv/Doc Saw Pt 2 The PA/CURRICULUM CONSULTANT has seen the patient and I have performed this visit along with the involvement of the PA/CURRICULUM CONSULTANT. I agree with the PA/coffee shop manager findings and plan. I have performed all aspects of MDM as documented including: evaluation of the patient/ patient's condition(s), review and analysis of available data, and determination of risk of patient management decisions. at 1838 at 0734 RPT #:[id number] END OF REPORT [facility] 2022-07-13 09:43:00 [id number] [address] PATIENT NAME: KOTA MONTES ADMIT DATE: 07/13/22 ACCOUNT NO: [id number] ROOM NO: AGE: 62 REPORT TYPE: eELECTROCARDIOGRAM SEX: M ADMITTING PHYSICIAN: ATTENDING PHYSICIAN: Order: [id number] Test Reason : Test Date/Time Stamp: SatJul 13 2022 09:43:40 Blood Pressure : / mmHG Vent. Rate : 071 BPM Atrial Rate : 071 BPM P-R Int : 155 ms QRS Dur : 148 ms QT Int : 453 ms P-R-T Axes : 055 -59 100 degrees QTc Int : 493 ms Sinus rhythm Left bundle branch block Confirmed by WEI PRICE ([id number]) on 09/21/2022 9:47:06 AM Referred By: Self Referred Confirmed by:WEI PRICE at 0947 [facility] [address] [facility] [id number] PATIENT NAME: KOTA MONTES [facility] 2022-06-17 22:47:00 [id number] [facility] [address] [place] [address] PATIENT NAME: KOTA MONTES ADMIT DATE: 06/02/22 ACCOUNT NO: [id number] ROOM NO: [id number] AGE: 61 REPORT TYPE: OPERATIVE REPORT SEX: M ADMITTING PHYSICIAN:Annabelle Zazueta MD ATTENDING PHYSICIAN:Annabelle Zazueta MD OPERATION DATE: 06/04/2022 PROCEDURES: 1. Percutaneous coronary intervention of the right coronary artery. 2. PTCA of the left circumflex artery with atherectomy and Shockwave C2 intravascular lithotripsy. 3. Selective coronary angiogram x2. 4. 6-Chinese Angio-Seal of the right femoral artery. 5. Moderate sedation: 09965 + [id number] (Start: 17:09,End: 19:52,163 minutes). INDICATIONS FOR PROCEDURE: Mr. Montes is a 61-year-old gentleman with multivessel coronary artery disease. The patient is sent here with unstable angina as he has lesions on the right coronary artery and circumflex. The circumflex apparently was particularly difficult as no wire could cross it at the outside facility. PREPROCEDURE DIAGNOSIS: Unstable angina. POSTPROCEDURE DIAGNOSES: 1. Successful percutaneous coronary intervention of the right coronary artery. 2. Successful wire crossing of the left circumflex with lithotripsy and attempted atherectomy with the inability to stent the lesion resulting in occlusion of the left circumflex artery at the end of the case without symptoms or EKG changes. ARTIFICIAL PLASTIC EYE MAKER: Kurtis Lynch M.D. CURTAIN SUPERVISOR: None. ANESTHESIA: Moderate sedation with local anesthetic. DESCRIPTION OF PROCEDURE: After obtaining informed consent, the patient was brought to the Cardiac Catheterization Laboratory where the patient was prepped and draped in normal sterile fashion. "I attest that Moderate Conscious Sedation was supervised by me, Kurtis Lynch MD. An independent trained observer pushed medications at my direction and monitored the patient?s level of consciousness and physiological status throughout. 6 mg of intravenous Versed and 200 mcg of intravenous Fentanyl was given to sedate the patient. Start time 17:09 and End time 19:52 for 163 minutes. There were no complications. See nurses sedation sheet I signed and dated for further details." Using 20 mL of Xylocaine, right groin was locally anesthetized. Using ultrasonography with a micropuncture needle, the right common femoral artery was cannulated with a 6-Chinese sheath. Heparin was given for a PATIENT NAME: KOTA MONTES therapeutic ACT. Through the 6-Chinese sheath, we took initially a 5-Chinese AL1 catheter and cannulated the right coronary artery. Selective angiography was performed. At one of the right ventricular branches, there was a tight 90% lesion. The entire proximal to mid right coronary artery was heavily calcified with diffuse stenosis. We then took a ChoICE floppy wire through the right coronary artery. Predilatation was performed initially with a Sapphire II PRO balloon catheter, 2 mm x 15 mm with a very difficult to expand lesion. We then removed this balloon without expanding the lesion and then used a Scoreflex NC scoring PTCA catheter 3 mm x 15 mm at 18 atmospheres. With this, we were able to expand the lesion further, but still had a tight neck. After this, we used a Sapphire NC 24 PTCA balloon 3 mm x 12 mm at 24 atmospheres and the lesion then gave. This balloon was then removed and exchanged for a Medtronic Nick [place] 2.75 mm x 34 mm stent, which was deployed at 18 atmospheres. Post-angiogram revealed 0% residual stenosis. There was nonobstructive disease distal to the stent. After this, the guide and wire were removed. After this, we took a 6-Chinese CLS 3.5 guiding catheter and cannulated the left main. Selective angiography was performed. This demonstrated patent left main, patent left anterior descending artery with mild plaquing throughout. The left circumflex was a nondominant vessel with a 99% lesion in its mid portion. Proximally, the circumflex was also 70% to 80%. This lesion was heavily calcified. Using a Fielder XT wire, we were actually able to cross the lesion into the OM1, which also had a mid 70% lesion; however, we had a lot of difficulty tracking any sort of catheter over this. This included Sapphire II PRO balloon catheter, 1 mm x 10 mm, followed by a Sapphire II PRO balloon catheter, 2 mm x 12 mm. We performed PTCA with these balloons; however, we could not get the lesion to expand. We even tried to advance a NC Emerge 2 mm x 12 mm, but this would not go nor could we advanced a Erieville cutting balloon, 2 mm x 10 mm. We then attempted to take a Sapphire NC 24 PTCA balloon 2.5 mm x 10 mm, but it would not expand. We tried again with another coronary cutting balloon Erieville, this would not go. After this, we exchanged all of this over a microcatheter and for a stiffer wire, which was a Viper wire. Over the Viper wire, we took an orbital atherectomy system from [facility] and attempted orbital atherectomy. After 4 runs, the tammy got stuck within the lesion. With a great deal of care and time, we finally extracted the tammy from the lesion. This actually happened a second time when we tried to approach the lesion more gently and we extracted it again. After this, we tried a Like.fm Emerge 2 mm x 15 mm, which would not go. Then, we tried an Emerge 2 mm x 12 mm, which would not go. We tried to take then a GuideLiner 5.5 and telescoped it through the sheath. This we tried to get up to the lesion and tried to advance a shockwave C2 intravascular lithotripsy, this would not go. We then performed lithotripsy on the proximal portion of the lesion hoping to soften this area of plaque, so that the adjacent area would be more amenable to cracking, but this was not the case. We again tried to advance some [place] coronary cutting balloons without effect. We then used multiple other balloons without much success. Finally, at this point, the proximal vessel became dissected as well and the distal vessel as well. On one occasion, we lost wire support and exchanged it for a Stew wire; however, after multiple attempts and even attempts at passing 3 different stents, we were unsuccessful. After this, we analyzed the amount of radiation and dye that was given and determined that this was a stopping point. The case had gone on for approximately 4 hours at this point and we were no closer to getting across the lesion. The thought it occurred to perhaps use a PATIENT NAME: KOTA MONTES rotablation system; however, with the dissection proximal and distally, it was felt to be very high risk, especially with the patient hemodynamically stable without EKG changes or changes in blood pressure. At this point, we abandoned trying to stent the vessel. Wire and guide were removed. Sheath was aspirated and flushed and a 6-Chinese Angio-Seal was used to close the arteriotomy. COMPLICATIONS: As noted above. IMPRESSION: 1. Successful percutaneous transluminal coronary angioplasty, stent of the right coronary artery. 2. PTCA with balloon angioplasty, intravascular lithotripsy, and atherectomy of the circumflex, but unable to pass a stent. PLAN: The patient will return to the ICU and be watched very carefully overnight. Dictated By: Kurtis Lynch MD Date Dictated: 06/17/2022 22:47:14 Date Transcribed: 06/18/2022 00:05:32 MEDHAT/SINCERE Receipt ID: [id number] Authenticated and Edited by Kurtis Lynch MD On 06/28/22 6:07:20 PM at 0611 PATIENT NAME: KOTA MONTES [facility] 2022-06-08 19:13:00 [id number] [address] PATIENT NAME: KOTA MONTES ADMIT DATE: 06/02/22 ACCOUNT NO: [id number] ROOM NO: P.0216 AGE: 61 REPORT TYPE: eECHOCARDIOGRAM REPORT SEX: M ADMITTING PHYSICIAN: Annabelle Zazueta MD ATTENDING PHYSICIAN: Annabelle Zazueta MD *[facility]* [address] [place] [id number] Transthoracic Echocardiogram Patient: Kota Montes Study Date: 06/02/2022 BP: 149 / 76 Location: [facility] URN: [id number] : 1960 Age: 61 Height: 68 in / 172.7 cm Gender: M Weight: 159.7 lb / 72.6 kg BMI/BSA: 24.3 kg/m 2 / 1.86 m 2 *Ordering Physician: * Truman Kilpatrick *Interpreting Physician: * Kurtis Lynch M.D. *Boat Washer: Lexi Santos Indications: HEART FAILURE. Study data: Transthoracic echocardiogram. Procedure: Transthoracic echocardiography was performed. Images were obtained using a Taggstrid E90 cardiac ultrasound machine. Complete 2D, complete spectral Doppler, and color Doppler. Location: ICU. Patient status: Inpatient. Patient room number: 216. Study status: Stat. Findings Left ventricle: The cavity size is normal. Wall thickness is normal. Systolic function is normal. The estimated ejection fraction is 55-60%. Wall motion is normal; there are no regional wall motion abnormalities. Doppler parameters are consistent with abnormal left ventricular relaxation (grade 1 diastolic PATIENT NAME: KOTA MONTES dysfunction). Right ventricle: The cavity size is normal. Systolic function is normal. Left atrium: The atrium is normal in size. Right atrium: The atrium is normal in size. Aorta: Aortic root: The aortic root is normal in size. Aortic valve: The valve is structurally normal. The valve is trileaflet. There is no evidence of stenosis. There is no regurgitation. Mitral valve: The valve is structurally normal. There is no evidence of stenosis. There is no regurgitation. Tricuspid valve: The valve is structurally normal. There is no regurgitation. Pulmonic valve: The valve is structurally normal. There is no regurgitation. Pericardium: There is no pericardial effusion. Pulmonary arteries: The main pulmonary artery is normal-sized. Systemic veins: Inferior vena cava: The vessel is normal in size. Measurements Left ventricle Value Ref JUSTIN, LAX 4.4 cm 4.2 - 5.8 ESD, LAX 3.4 cm 2.5 - 4.0 ESD/bsa, LAX 1.8 cm/m 2 1.3 - 2.1 FS, LAX 24 % 25 - 43 ESD 3.4 cm 2.5 - 4.0 ESD/bsa 1.8 cm/m 2 1.3 - 2.1 FS 24 % 25 - 43 PW, ED 1.2 cm 0.6 - 1.0 PW, ES 1.9 cm IVS/PW, ED 0.98 EF 48 % 52 - 72 EDV, A/L 26 ml 62 - 150 EDV/bsa, A/L 14 ml/m 2 34 - 74 EF, [facility] Teich. 48 % >=55 E', lat candice, TDI 8.7 cm/sec >=10.0 E/e', lat candice, 8 TDI E', med candice, TDI 5.6 cm/sec >=7.0 E/e', med candice, 12 TDI E', avg, TDI 7.1 cm/sec E/e', avg, TDI 10 <=14 LVOT Value Ref Diam, S 1.97 cm Area 3.0 cm 2 Peak latanya, S 1.22 m/sec Mean latanya, S 0.87 m/sec VTI, S 22.5 cm PATIENT NAME: KOTA MONTES Peak grad, S 6 mm Hg Mean grad, S 1 mm Hg SV 69 ml SV/bsa 37 ml/m 2 Ventricular septum Value Ref IVS, ED 1.1 cm 0.6 - 1.0 IVS, ES 1.3 cm Right ventricle Value Ref JUSTIN, LAX 2.3 cm JUSTIN 2.3 cm TAPSE, 2D 2.6 cm 1.7 - 3.1 TAPSE, MM 2.6 cm 1.7 - 3.1 RVOT Value Ref Peak v, S 0.56 m/sec Peak grad, S 1 mm Hg Left atrium Value Ref LA ID 3.5 cm AP dim, ES 3.51 cm 3.00 - 4.00 AP dim ES, LAX 3.5 cm 3.0 - 4.0 SI dim ES, LAX 3.5 cm Vol, ES, 2-p 37 ml Vol/bsa, ES, 2-p 20 ml/m 2 16 - 34 LA/Ao root ratio 1.31 AP dim, ES MM 3.5 cm 3.0 - 4.0 LA/Ao root 1 ratio, MM Aortic valve Value Ref Peak v, S 1.71 m/sec Mean v, S 1.31 m/sec VTI, S 29.2 cm Mean grad, S 7.2 mm Hg Peak grad, S 11.6 mm Hg LVOT/AV, VTI 0.77 ratio SUKHJINDER, VTI 3.04 cm 2 LVOT/AV, Vpeak 0.71 ratio SUKHJINDER, Vmax 2.85 cm 2 Mitral valve Value Ref Peak E 0.07 m/sec Peak A 0.96 m/sec Mean v, D 0.8 m/sec VTI leaflet 24.4 cm coapt Decel time 137 ms Mean grad, D 2.7 mm Hg Peak grad, D 5.0 mm Hg PATIENT NAME: EILEEN MONTESYANET SOTO Peak E/A ratio 0.72 Aortic root Value Ref Root diam 2.7 cm <4.0 Root diam, ED MM 3.51 cm Ascending aorta Value Ref AAo AP diam, S 3.8 cm AAo AP diam/bsa, 2.1 cm/m 2 S Conclusions Summary: Left ventricle: The cavity size is normal. Wall thickness is normal. Systolic function is normal. The estimated ejection fraction is 55-60%. Wall motion is normal; there are no regional wall motion abnormalities. Doppler parameters are consistent with abnormal left ventricular relaxation (grade 1 diastolic dysfunction). Prepared and electronically signed by Kurtis Lynch M.D. 06/08/2022 19:13 at 1913 PATIENT NAME: KOTA MONTES [facility] 2022-06-06 10:54:00 [facility] ([facility]) Hospitalist D/C Summary REPORT #: [id number] REPORT STATUS: Signed DATE: 06/06/22 TIME: 1054 PATIENT: KOTA MONTES UNIT #: [id number] ROOM #: P.0216 BED: 1 : 61 AGE: 61 SEX: M ATTEND: Annabelle Zazueta MD ADM AUTHOR: Nnamdi Rachel MD ATTENTION *EDITS and/or ADDENDA must be made in Patient Keeper for this note. * * Edits and ammendments created in [facility] are not visible * * in Patient Keeper or the legal medical record ([facility]). * -- PROBLEMS/PROCEDURES -- ADMISSION DATE: 06/02/22 ADMITTING DIAGNOSES: - Abdominal distention - Alcohol abuse - Atherosclerotic heart disease of [place] coronary artery without angina pectoris - CAD (coronary artery disease) - Chronic disease anemia - Non-ST elevation (NSTEMI) myocardial infarction - Nonrheumatic mitral (valve) insufficiency - NSTEMI (non-ST elevated myocardial infarction) - Presence of coronary angioplasty implant and graft DISCHARGE DATE: 06/06/22 DISCHARGE DIAGNOSES: - Abdominal distention - Alcohol abuse - Atherosclerotic heart disease of [place] coronary artery without angina pectoris - CAD (coronary artery disease) - Chronic disease anemia - Non-ST elevation (NSTEMI) myocardial infarction - Nonrheumatic mitral (valve) insufficiency - NSTEMI (non-ST elevated myocardial infarction) - Presence of coronary angioplasty implant and graft -- HOSPITAL COURSE -- HOSPITAL COURSE: This 61-year-old gentleman has a past medical history significant for hypertension, hyperlipidemia, myocardial infarction and percutaneous coronary intervention x2 in 2005, alcohol abuse and tobacco abuse and a strong family history of coronary artery disease. He has had complaints of recurrent chest pain with or without physical activity going on for about 3 to 4 months. He activated the EMS on 05/27/2022 when his chest pain got worse. He was taken to [facility] where he was ruled in for non-ST segment elevation myocardial infarction with a troponin greater than 2000. Echocardiogram showed normal left ventricular ejection fraction 55% to 60% and mild mitral regurgitation, and a coronary angiogram on 05/28 showed patent left main, patent LAD, left circumflex ostial 90% lesion, obtuse marginal 1 mid 70% lesion, heavily calcified RCA with multiple stents and a 60% to 70% in-stent restenosis. Dr. Knox attempted percutaneous coronary intervention, but was unable to cross the calcified vessel, and the procedure was aborted. The patient was transferred to the [facility] for higher level of care. During the hospitalization, the patient was also seen for abdominal distention and the impression is ileus, treated with Reglan. CHRONOLOGICAL PROGRESS: 06/04: The patient was upset this morning and wanted to leave AMA. He was counseled. For high risk multivessel angioplasty today by Dr. Kurtis Lynch. *The patient underwent, complex high risk PCI with 1 stent placement to the RCA, 2.75 x 34 mm Nick frontier, and PTCA to the left circumflex with atherectomy and intravenous lithotripsy. The patient will be in-house for the next 3 to 4 days. 06/05: Patient belligerent, inappropriate sexual innuendos, rude with nursing staff, CURR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 Patient angry and wanted to leave AMA. Risks of leaving AMA and not completing inpatient treatment discussed with patient at length. Patient has now agreed to remain inpatient until deemed safe for discharge home from the hospital; According to the patient, he will "get out tomorrow". The patient continued to be disruptive and insulting towards everybody. The purpose of his transfer to this hospital, complex high risk angioplasty, has been achieved. He demands to go home. He is being discharged home on June 06. Adequate instructions and prescriptions have been provided. He will follow up with his primary business department chair, Dr Knox in 1-2 weeks. FINAL DIAGNOSIS: 1. Non-ST segment elevation myocardial infarction in a patient with previous history of myocardial infarction and RCA stents in 2005. Preserved left ventricular ejection fraction, 55% to 60%. The patient has ongoing nicotine and alcohol abuse. Coronary angiogram shows ostial left circumflex 90%, obtuse marginal 1 mid 70% and heavily calcified RCA with multiple stents and 60% to 70% in-stent restenosis, right dominant system. Attempts at percutaneous coronary intervention at the outside hospital were not successful. The patient has been evaluated by Cardiothoracic Surgery services and recommendations are for high risk PCI by Dr. Kurtis Lynch. Continue beta-blockers, aspirin, Plavix, statins, and nitrates. The patient underwent, complex high risk PCI with 1 stent placement to the RCA, 2.75 x 34 mm [place] frontier, and PTCA to the left circumflex with atherectomy and intravenous lithotripsy 06/04 2. Hypertension, continue metoprolol. 3. Hyperlipidemia. Continue atorvastatin 40 mg daily. 4. Alcohol dependence. High risk of alcohol withdrawal. Continue chlordiazepoxide, lorazepam p.r.n., thiamine and folate. 5. Nicotine dependence. Around 50 pack-year tobacco use. The patient does not appear to be planning to quit smoking. Has a nicotine patch on at this time. 6. Eye irritation, continue carboxymethylcellulose and petrolatum eyedrops/ointment. 7. Hyponatremia, mild. No immediate intervention needed. 8. Anemia, chronic, may be related to nutrient deficiency. 9. Hypophosphatemia, replete. 10. Atherosclerotic cerebrovascular disease, 50% to 55% proximal bilateral internal carotid artery stenosis. Continue statins, aspirin and Plavix. 11. Recent ileus, improved. 12. Findings of hepatomegaly and small gallbladder calculi on CT scan recently. -- DISCHARGE MEDICATIONS -- ALLERGIES: No Known Allergies (UNKNOWN - Allergy) DISCHARGE MEDICATIONS: Please refer to Discharge Medication list for a complete list of discharge medications Aspirin EC Tab (Ecotrin Tab) 81MG PO DAILY, Disp: 90 tablet, Refills: 0 Atorvastatin Tab (Lipitor Tab) 40MG PO BEDTIME, Disp: 90 tablet, Refills: 0 chlordiazePOXIDE Cap (Librium Cap) 5 MG PO BID, Disp: 10 capsule, Refills: 0 Folic Acid Tab (Folvite Tab) 1MG PO DAILY, Disp: 100 tablet, Refills: 0 Isosorbide Mononitrate Tab.ER (Imdur Tab) 30MG PO DAILY, Disp: 90 tablet, Refills: 0 Thiamine Tab (Vitamin B-1 Tab) 100MG PO DAILY, Disp: 100 tablet, Refills: 0 Ticagrelor Tab (Brilinta Tab) 90MG PO Q12HR, Disp: 60 tablet, Refills: 1 -- DISCHARGE INSTRUCTIONS -- PK DISCHARGE ORDERS: Discharge w/Instructions:PKDC - PK DISCHARGE ORDERS Details: Order number: [id number] Category: PKDC - PK DISCHARGE ORDERS Order status: Transmitted Details: Discharge order: Yes Discharge to: Home/Self Care Activity: No Lifting gt;10lbs No Strenuous Activity PCP: Dr Knox, cardio PCP follow up timeframe: In 1-2 weeks Notify PCP of Signs/Symptoms: Chest Pain Shortness of breath Temp. 101 or greater Weight Monitoring: Weekly Attending Physician: SETHYPR:Kurtis Lynch MD Attending physician follow up timeframe: as needed Additional Discharge Routines: PCP Follow-Up Ordered by: Nnamdi Rachel MD Jun 06, 2022 10:04am Entered by: Nnamdi Rachel MD Service date: Jun 06, 2022 10:02am Details: Order number: [id number] Category: PKDC - PK DISCHARGE ORDERS Order status: Transmitted Details: Does patient have any of the following conditions at discharge? PCI Statin at Discharge: Yes EJ Fraction: gt;40% Aspirin at Discharge: Yes Antiplatelet/P2Y12 at Discharge: Yes Aldosterone Antagonist at Discharge: No - Not Applicable Cardiac Rehab Referral: No Reason for no cardiac rehab referral: Pat/Family Refusal Ordered by: Nnamdi Rachel MD Jun 06, 2022 10:04am Entered by: Nnamdi Rachel MD Service date: Jun 06, 2022 10:02am DC - ALL eCQMS ADDTIONAL DISCHARGE INSTRUCTIONS: Emergency Instructions: The patient was instructed to present to the nearest Emergency Department or call 911 should their symptoms return or worsen.; -- OBJECTIVE -- VITALS (06/05 10:54 - 06/06 10:54): Temperature F: 98.7 Pulse Rate 99 (75 - 99) Respiratory rate: 13 (4 - 25) BP: 88/54 (70/39 - 326/319) Blood pressure source: Monitor I/Os (06/05 07:00 - 06/06 07:00): Net -840.00 Intake 535.00 Output 1,375 -EXAM- GENERAL: GENERAL: The patient is not in any acute distress. VITAL SIGNS: oxygen saturation is 98% on room air. HEENT: Head is atraumatic. Pupils are reactive to light and accommodation. Extraocular muscles intact. Sclerae are injected. NECK: Supple. No thyromegaly. No JVD. CARDIOVASCULAR: Regular rate and rhythm. No murmur, gallop, or rub could be appreciated. LUNGS: Clear to auscultation. ABDOMEN: Soft, nondistended, nontender, no organomegaly. EXTREMITIES: No edema, cyanosis or clubbing. Pedal pulses palpable. Nails have onycholysis. NEUROLOGIC: No focal deficit. -- DATA -- LABS PHOS (06/05/22 16:17) PHOSPHOROUS 3.6 MAG (06/05/22 16:17) MAGNESIUM 1.8 BASIC METABOLIC PANEL (06/05/22 16:17) SODIUM 130L L POTASSIUM 4.7 CHLORIDE 99 CARBON DIOXIDE 25 GLUCOSE 104 BLOOD UREA NITROGEN 7L L GLOMERULAR FILTRATION RATE >=60 max estimate CREATININE 0.80 CALCIUM 8.6 L BLOOD GAS W/ELECTROLYTES (06/05/22 02:50) ARTERIAL BLOOD GAS PH 7.45 ARTERIAL BLOOD GAS PCO2 36.3 ARTERIAL BLOOD GAS PO2 75.1 L BICARBONATE TOTAL HCO3 24.6 H BASE EXCESS 0.8 ABG O2 SATURATION 95.6 ARTERIAL FIO2 21.0 ABG VENT MODE Room Air ALLENS TEST NOT APPLICABLE SODIUM (POC) 132 L POTASSIUM (POC) 4.34 CHLORIDE (ARTERIAL) 99 GLUCOSE 87 IONIZED CALCIUM 1.18 POC LACTIC ACID 0.90 TOTAL HGB 11.9 D L CARBOXYHEMOGLOBIN 0.3 METHEMOGLOBIN <0.8 HHb 4.4 TCO2 ARTERIAL 25.7 CBC W/AUTO DIFF (06/05/22 02:34) WHITE BLOOD CELL 7.8 RED BLOOD CELL 2.99 L HEMOGLOBIN 10.9L L HEMATOCRIT 31.6L L MEAN CELL VOLUME 105.7 H MEAN CELL HGB 36.5 H MEAN CELL HGB CONCENTRATION 34.5 RED CELL DISTRIBUTION WIDTH 13.1 PLATELET COUNT 264 MEAN PLATELET VOLUME 8.7 L NEUTROPHIL % 79.1 H LYMPHOCYTE % 10.2 L MONOCYTE % 9.3 EOSINOPHIL % 0.4 BASOPHIL % 0.5 NEUTROPHIL # 6.13 LYMPHOCYTE # 0.79 L MONOCYTE # 0.72 EOSINOPHIL # 0.03 BASOPHIL # 0.04 FIB (06/05/22 02:41) FIBRINOGEN 550 H -- QUALITY -- -MEDICATIONS- - I attest that the foregoing medication list in the medical record is true, accurate, and complete to the best of my knowledge. -- ATTESTATION -- TIME SPENT ON PATIENT CARE: - Direct 35 minutes - > 50% of time spent on Counseling/Care Coordination CARE ACTIVITIES / CARE COORDINATION: - I have reviewed the history and repeated the carias elements - I have seen and examined this patient - I have reviewed the progress in the clinical course since the last examination - I have discussed the patient's condition with other members of the care team Signed in PatientKeeper by Nnamdi Rachel MD on 06/30/22 at 11:56 at 1156 ATTENTION *EDITS and/or ADDENDA must be made in Patient Keeper for this note. * * Edits and ammendments created in [employer] are not visible * * in Patient Keeper or the legal medical record ([facility]). * [facility] #: [id number] END OF REPORT [facility] 2022-06-06 10:54:00 [facility] ([facility]) Med Order Sheet REPORT #: [id number] REPORT STATUS: Signed DATE: 06/06/22 TIME: 1054 PATIENT: KOTA MONTES UNIT #: [id number] ROOM #: P.0216 BED: 1 : 61 AGE: 61 SEX: M ATTEND: Annabelle Zazueta MD ADM AUTHOR: Nnamdi Rachel MD ATTENTION *EDITS and/or ADDENDA must be made in Patient Keeper for this note. * * Edits and ammendments created in [employer] are not visible * * in Patient Keeper or the legal medical record ([facility]). * Discharge Medication Reconciliation Hosp: chlordiazePOXIDE Cap (Librium Cap) Dose: 5 MG PO BID, Disp: 10 capsule, Refills: 0 at 1054 ATTENTION *EDITS and/or ADDENDA must be made in Patient Keeper for this note. * * Edits and ammendments created in [facility] are not visible * * in Patient Keeper or the legal medical record ([facility]). * RPT #: [id number] END OF REPORT [facility] 2022-06-06 10:03:00 [facility] ([facility]) Med Order Sheet REPORT #: [id number] REPORT STATUS: Signed DATE: 06/06/22 TIME: 1003 PATIENT: KOTA MONTES UNIT #: [id number] ROOM #: P.0216 BED: 1 : 61 AGE: 61 SEX: M ATTEND: Annabelle Zazueta MD [facility] AUTHOR: Nnamdi Rachel MD ATTENTION *EDITS and/or ADDENDA must be made in Patient Keeper for this note. * * Edits and ammendments created in [facility] are not visible * * in Patient Keeper or the legal medical record ([facility]). * Discharge Medication Reconciliation DISCHARGE MEDICATION LIST Atorvastatin Tab (Lipitor Tab) Dose: 40MG PO BEDTIME, Disp: 90 tablet, Refills: 0 Aspirin EC Tab (Ecotrin Tab) Dose: 81MG PO DAILY, Disp: 90 tablet, Refills: 0 Folic Acid Tab (Folvite Tab) Dose: 1MG PO DAILY, Disp: 100 tablet, Refills: 0 Isosorbide Mononitrate Tab.ER (Imdur Tab) Dose: 30MG PO DAILY, Disp: 90 tablet, Refills: 0 Metoprolol Tartrate Tab (Lopressor Tab) Dose: 25 MG PO bid - HALF tab Thiamine Tab (Vitamin B-1 Tab) Dose: 100MG PO DAILY, Disp: 100 tablet, Refills: 0 Ticagrelor Tab (Brilinta Tab) Dose: 90MG PO Q12HR, Disp: 60 tablet, Refills: 1 STOPPED HOME MEDICATIONS Dc'd: Losartan/HCTZ 100/25 Tab (Hyzaar 100-25 MG Tab) 1 TAB PO DAILY STOPPED HOSPITAL MEDICATIONS Dc'd: Acetaminophen Tab (Tylenol Tab) 650MG PO Q6H PRN mild pain or temp>38.5cDc'd: Bisacodyl Supp (Dulcolax Supp) 10MG Rectal DAILY PRN constipationDc'd: Carboxymethylcellulose Sodium (Refresh Plus) 2DROP Each Eye Q1H PRN irritationDc'd: Docusate Sodium Cap (Colace Cap) 200MG PO DAILYDc'd: Glucagon Inj (Glucagon Inj) 1MG IM ASDIR PRN hypoglycemia if no iv/enteralDc'd: KCl 10mEq/50mL IVPB (Potassium Chloride 10mEq/50mL IVPB) 10MEQ 50 MLS/HR IV ASDIR PRN electrolyte sliding scaleDc'd: Magnesium Sulfate 2GM IVPB (Magnesium Sulfate 2GM IVPB) 2GM 25 MLS/HR IV ASDIR PRN mag level 0.9 - 1.9 mg/dlDc'd: Magnesium Sulfate 4GM IVPB (Magnesium Sulfate 4GM IVPB) 4G 25 MLS/HR IV ASDIR PRN mag level <0.9 mg/dlDc'd: Multivitamin Tab (Theragran Tab) 400MCG PO DAILYDc'd: Mupirocin Ointment 2% (Bactroban Ointment 2%) 1APPLIC Nasal BIDDc'd: Nicotine Patch 21mg/24hr (Nicoderm CQ Patch 21mg/24hr) 21MG Topical DAILYDc'd: Nitroglycerin SL Tab (Nitrostat SL Tab) 0.4MG SL Q5M PRN chest painDc'd: Ondansetron Inj (Zofran Inj) 4MG IV Q4H PRN nausea and vomitingDc'd: Polyethylene Glycol Powder (Miralax Powder) 1PKT PO DAILYDc'd: Potassium Chlor Tab.ER (K Dur Tab) 20MEQ PO ASDIR PRN electrolyte sliding scaleDc'd: Propylene Glyc/Peg Ophth Soln (Systane 0.3-0.4% Ophth Soln) 1DROP Each Eye Q8HRDc'd: Sodium Phosphate Inj (Sodium Phosphate Inj) 15MM IV ASDIR PRN phosphorus sliding scalein sodium chloride 0.9 % intravenous solution 250ML Dc'd: Sodium Phosphate Inj (Sodium Phosphate Inj) 30MM IV ASDIR PRN phosphorus sliding scalein sodium chloride 0.9 % intravenous solution 250ML Dc'd: Sodium Phosphate Inj (Sodium Phosphate Inj) 45MM IV ASDIR PRN phosphorus sliding scalein sodium chloride 0.9 % intravenous solution 250ML at 1003 ATTENTION *EDITS and/or ADDENDA must be made in Patient Keeper for this note. * * Edits and ammendments created in [facility] are not visible * * in Patient Keeper or the legal medical record ([facility]). * [facility] #: [id number] END OF REPORT [facility] 2022-06-06 07:30:00 [facility] ([facility]) Cardiology Progress Notes REPORT #: [id number] REPORT STATUS: Signed DATE: 06/06/22 TIME: 729 PATIENT: KOTA MONTES UNIT #: [id number] ROOM #: [facility] BED: 1 : 61 AGE: 61 SEX: M ATTEND: Annabelle Zazueta MD ADM AUTHOR: Camron Ptael ATTENTION *EDITS and/or ADDENDA must be made in Patient Keeper for this note. * * Edits and ammendments created in [employer] are not visible * * in Patient Keeper or the legal medical record ([facility]). * -- CO-SIGNATURE -- COMMENTS: The patient was seen on rounds with MIAH Monge. The patient has no complaints Examination demonstrates normal heart sounds and clear lung armijo. Impression and plan The patient is status post high risk intervention to the right coronary artery and left circumflex artery We will discharge the patient home today on dual antiplatelet therapy, statin and beta-blockade. 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 Signed in PatientKeeper by KURTIS LYNCH MD on 06/17/22 at 10:19 -- ASSESSMENT AND PLAN -- PROBLEMS: 1: NSTEMI (non-ST elevated myocardial infarction) A/P: The patient is a 61-year-old gentleman with a PMHx of alcohol/tobacco abuse, hypertension, hyperlipidemia, and NM in 2006 with PCI X2, positive family history of coronary artery disease, who presented to [facility] on 05/27/2022 with chest discomfort that had been going on for the past 3 months. He ruled in for an NSTEMI with a peak high-sensitivity troponin of 2044. His ECHO demonstrated a LVEF of 55-60% with mild MR. He had a LHC on 05/28/2022 that demonstrated patent left main, patent LAD, ostial LCx 90%, OM1 w/ mid 70%, and heavily calcified RCA with multiple stents and 60-70% in-stent restenosis (right dominant). Dr. Knox attempted PCI but due to calcified vessel was unsuccessful and now patient is transferred here for high risk intervention. He underwent successful high-risk percutaneous coronary intervention to RCA with placement of 1 stent and to LCx with PTCA, atherectomy and intravascular lithotripsy on 06/04/[address] Lynch (see op-note). He tolerated the procedure well and was transferred back to CVICU for closer observation. - S/p successful high-risk PCI to RCA and LCx on 06/04/22. Hemodynamically stable overnight. - On DAPT with aspirin, brilinta - On atorvastatin 40mg daily, metoprolol tartrate 50mg Q8H and Imdur 30mg daily - On Thiamine and Folate - high risk for withdrawals. On Librium. - Smoking cessation but patient is stating he is not going to quit. - From cardiology standpoint the patient can be discharged today. He will follow-up with Dr. Knox in 1 week -- SUBJECTIVE -- CHIEF COMPLAINT: Chest pain PATIENT NARRATIVE: Resting in bed. No acute events overnight. -REVIEW OF SYSTEMS- GENERAL: Negative for fever, malaise, fatigue. EYES: Negative for blurry vision. No diplopia. +burning from OSH eye drops EARS/NOSE/THROAT: Negative for sore throat. No otalgia. No rhinorrhea. RESPIRATORY: Negative for dyspnea or wheeze. + non productive cough. CARDIOVASCULAR: Negative for chest pain or palpitations. No extremity swelling. GASTROINTESTINAL: Negative for abdominal pain or nausea. No emesis. No diarrhea. GENITOURINARY: Negative for dysuria, frequency, or urgency. No gross hematuria. MUSCULOSKELETAL: Negative for joint stiffness, pain, or arthralgias. SKIN: Negative for rashes. No pruritus. NEUROLOGICAL: Negative for headache. No vertigo. Denies paresthesias. PSYCHIATRIC: Negative for specific complaints. ENDOCRINE: Negative for cold intolerance, heat intolerance, polyphagia, polydipsia, polyuria, weight change, fatigue. -- OBJECTIVE -- VITALS (06/05 09:38 - 06/06 09:38): Temperature F: 98.7 Pulse Rate 84 (75 - 93) Respiratory rate: 16 (4 - 25) BP: 80/41 (78/41 - 326/319) Blood pressure source: Monitor I/Os (06/05 07:00 - 06/06 07:00): Net -840.00 Intake 535.00 Output 1,375 -EXAM- GENERAL: Well developed, well nourished, in no apparent distress. HEAD: Normocephalic, atraumatic. EYES: PERRL, EOM intact, red conjunctiva and sclera clear, without nystagmus, lids normal. EARS: grossly normal hearing. NOSE: No deformity, no discharge, no inflammation, no lesions. MOUTH: Oropharynx without deformities or lesions, normal mucosa. Poor dentition NECK: No masses, no thyromegaly, no abnormal cervical nodes, trachea midline. No JVD CHEST: Grossly normal appearance. LUNGS: Clear bilaterally with normal respiratory effort. HEART: Regular rate and rhythm, normal S1, S2 ABDOMEN: Soft, non-tender, no organomegaly, no masses noted. MUSCULOSKELETAL: No deformity, no scoliosis noted of thoracic or lumbar spine, joint ROM grossly normal, normal gait and station. EXTREMITIES: No clubbing, no cyanosis, no edema. NEUROLOGICAL: No focal deficits, cranial nerves II-XII grossly intact, normal sensation, normal reflexes, normal coordination, normal muscle strength, normal tone. PULSES: Pulses normal in all extremities. SKIN: Intact without significant lesions, or rashes. PSYCHIATRIC: Alert and oriented to time, person, place. Normal mood and affect, intact judgment and insight. Anxious at times -- DATA -- MEDICATIONS POTASSIUM CHLORIDE IN WATER 10 MEQ IV ASDIR (PRN) PROPYLENE GLYCOL/PEG 400 1 DROP EACH EYE Q8HR SODIUM PHOSPHATE with/in SODIUM CHLORIDE 0.9% 45 MM IV ASDIR (PRN) MAGNESIUM SULFATE 2 GM IV ASDIR (PRN) POTASSIUM CHLORIDE 20 MEQ PO ASDIR PRN SODIUM PHOSPHATE with/in SODIUM CHLORIDE 0.9% 30 MM IV ASDIR (PRN) ISOSORBIDE MONONITRATE 30 MG PO DAILY ASPIRIN 81 MG PO DAILY polyethylene glycoL 3350 1 PKT PO DAILY SODIUM PHOSPHATE with/in SODIUM CHLORIDE 0.9% 15 MM IV ASDIR (PRN) TICAGRELOR 90 MG PO Q12HR GLUCAGON 1 MG IM ASDIR PRN ATORVASTATIN CALCIUM 40 MG PO BEDTIME CARBOXYMETHYLCELLULOSE SODIUM 2 DROP EACH EYE Q1H PRN NITROGLYCERIN 0.4 MG SL Q5M PRN bisacodyL 10 MG RECTAL DAILY PRN FOLIC ACID 1 MG PO DAILY ONDANSETRON HCL/PF 4 MG IV Q4H PRN MULTIVITAMIN WITH FOLIC ACID 400 MCG PO DAILY ACETAMINOPHEN 650 MG PO Q6H PRN MAGNESIUM SULFATE 4 G IV ASDIR (PRN) MUPIROCIN 1 APPLIC NASAL BID NICOTINE 21 MG TOPICAL DAILY DOCUSATE SODIUM 200 MG PO DAILY THIAMINE HCL 100 MG PO DAILY METOPROLOL TARTRATE 50 MG PO Q8HR LABS PHOS (06/05/22 16:17) PHOSPHOROUS 3.6 MAG (06/05/22 16:17) MAGNESIUM 1.8 BASIC METABOLIC PANEL (06/05/22 16:17) SODIUM 130L L POTASSIUM 4.7 CHLORIDE 99 CARBON DIOXIDE 25 GLUCOSE 104 BLOOD UREA NITROGEN 7L L GLOMERULAR FILTRATION RATE >=60 max estimate CREATININE 0.80 CALCIUM 8.6 L -- ATTESTATION -- CARE ACTIVITIES / CARE COORDINATION: - I have reviewed the history and repeated the carias elements - I have seen and examined this patient - I have reviewed the progress in the clinical course since the last examination - I have discussed the patient's condition with other members of the care team ADDITIONAL DETAIL: Plan of care discussed with Dr. Kurtis Lynch Signed in PatientKeeper by CAMRON PATEL on 06/06/22 at 12:12 Cosigned by KURTIS LYNCH MD on 06/17/22 at 10:19 at 1019 at 1019 ATTENTION *EDITS and/or ADDENDA must be made in Patient Keeper for this note. * * Edits and ammendments created in [facility] are not visible * * in Patient Keeper or the legal medical record ([facility]). * RPT #: [id number] END OF REPORT [facility] 2022-06-05 17:52:00 [facility] ([facility]) Hospitalist Progress Note REPORT #: [id number] REPORT STATUS: Signed DATE: 06/05/22 TIME: 1752 PATIENT: KOTA MONTES UNIT #: [id number] ROOM #: [id number] BED: 1 : 61 AGE: 61 SEX: M ATTEND: Annabelle Zazueta MD ADM AUTHOR: Nnamdi Rachel MD ATTENTION *EDITS and/or ADDENDA must be made in Patient Keeper for this note. * * Edits and ammendments created in [employer] are not visible * * in Patient Keeper or the legal medical record ([facility]). * -- ASSESSMENT AND PLAN -- GENERAL ASSESSMENT: ASSESSMENT AND PLAN: 1. Non-ST segment elevation myocardial infarction in a patient with previous history of myocardial infarction and RCA stents in 2005. Preserved left ventricular ejection fraction, 55% to 60%. The patient has ongoing nicotine and alcohol abuse. Coronary angiogram shows ostial left circumflex 90%, obtuse marginal 1 mid 70% and heavily calcified RCA with multiple stents and 60% to 70% in-stent restenosis, right dominant system. Attempts at percutaneous coronary intervention at the outside hospital were not successful. The patient has been evaluated by Cardiothoracic Surgery services and recommendations are for high risk PCI by Dr. Kurtis Lynch. Continue beta-blockers, aspirin, Plavix, statins, and nitrates. The patient underwent, complex high risk PCI with 1 stent placement to the RCA, 2.75 x 34 mm [place] frontier, and PTCA to the left circumflex with atherectomy and intravenous lithotripsy 06/04 2. Hypertension, continue metoprolol. 3. Hyperlipidemia. Continue atorvastatin 40 mg daily. 4. Alcohol dependence. High risk of alcohol withdrawal. Continue chlordiazepoxide, lorazepam p.r.n., thiamine and folate. 5. Nicotine dependence. Around 50 pack-year tobacco use. The patient does not appear to be planning to quit smoking. Has a nicotine patch on at this time. 6. Eye irritation, continue carboxymethylcellulose and petrolatum eyedrops/ointment. 7. Hyponatremia, mild. No immediate intervention needed. 8. Anemia, chronic, may be related to nutrient deficiency. 9. Hypophosphatemia, replete. 10. Atherosclerotic cerebrovascular disease, 50% to 55% proximal bilateral internal carotid artery stenosis. Continue statins, aspirin and Plavix. 11. Recent ileus, improved. 12. Findings of hepatomegaly and small gallbladder calculi on CT scan recently. ADDITIONAL COMMENTS: s/p complex high risk PCI with 1 stent placement to the RCA, 2.75 x 34 mm [place] frontier, and PTCA to the left circumflex with atherectomy and intravenous lithotripsy 06/04. wanted to leave AMA again 06/05. counseled. apparently has agreed to staying back for now. It is unclear as to how long he will keep his word. -- SUBJECTIVE -- HPI: This 61-year-old gentleman has a past medical history significant for hypertension, hyperlipidemia, myocardial infarction and percutaneous coronary intervention x2 in 2005, alcohol abuse and tobacco abuse and a strong family history of coronary artery disease. He has had complaints of recurrent chest pain with or without physical activity going on for about 3 to 4 months. He activated the EMS on 05/27/2022 when his chest pain got worse. He was taken to [facility] where he was ruled in for non-ST segment elevation myocardial infarction with a troponin greater than 2000. Echocardiogram showed normal left ventricular ejection fraction 55% to 60% and mild mitral regurgitation, and a coronary angiogram on 05/28 showed patent left main, patent LAD, left circumflex ostial 90% lesion, obtuse marginal 1 mid 70% lesion, heavily calcified RCA with multiple stents and a 60% to 70% in-stent restenosis. Dr. Knox attempted percutaneous coronary intervention, but was unable to cross the calcified vessel, and the procedure was aborted. The patient was transferred to the [facility] for higher level of care. During the hospitalization, the patient was also seen for abdominal distention and the impression is ileus, treated with Reglan. PATIENT NARRATIVE: 06/04: The patient was upset this morning and wanted to leave AMA. He was counseled. For high risk multivessel angioplasty today by Dr. Kurtis Lynch. *The patient underwent, complex high risk PCI with 1 stent placement to the RCA, 2.75 x 34 mm [place] frontier, and PTCA to the left circumflex with atherectomy and intravenous lithotripsy. The patient will be in-house for the next 3 to 4 days. 06/05: Patient belligerent, inappropriate sexual innuendos, rude with nursing staff, CURR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 Patient angry and wanted to leave AMA. Risks of leaving AMA and not completing inpatient treatment discussed with patient at length. Patient has now agreed to remain inpatient until deemed safe for discharge home from the hospital; According to the patient, he will "get out tomorrow". -REVIEW OF SYSTEMS- GENERAL: CONSTITUTIONAL: The patient reports fatigue and tiredness. HEENT: Reports burning in the eyes. CARDIOPULMONARY: Reports chest pain with physical activity. GASTROINTESTINAL: Reports abdominal distention and some nausea earlier. No vomiting. GENITOURINARY: Denies any dysuria or discharge. NEUROLOGICAL: Reports numbness in his toes. -- OBJECTIVE -- VITALS (06/04 17:52 - 06/05 17:52): Temperature F: 98.4 (98.2 - 98.4) Pulse Rate 92 (80 - 110) Respiratory rate: 17 (11 - 30) BP: 97/56 (90/23 - 326/319) Blood pressure source: Monitor I/Os (06/04 07:00 - 06/05 07:00): Net -1,404.40 Intake 95.60 Output 1,500 -EXAM- GENERAL: GENERAL: The patient is not in any acute distress. VITAL SIGNS: oxygen saturation is 98% on room air. HEENT: Head is atraumatic. Pupils are reactive to light and accommodation. Extraocular muscles intact. Sclerae are injected. NECK: Supple. No thyromegaly. No JVD. CARDIOVASCULAR: Regular rate and rhythm. No murmur, gallop, or rub could be appreciated. LUNGS: Clear to auscultation. ABDOMEN: Soft, nondistended, nontender, no organomegaly. EXTREMITIES: No edema, cyanosis or clubbing. Pedal pulses palpable. Nails have onycholysis. NEUROLOGIC: No focal deficit. -- DATA -- MEDICATIONS POTASSIUM CHLORIDE IN WATER 10 MEQ IV ASDIR (PRN) PROPYLENE GLYCOL/PEG 400 1 DROP EACH EYE Q8HR SODIUM PHOSPHATE with/in SODIUM CHLORIDE 0.9% 45 MM IV ASDIR (PRN) MAGNESIUM SULFATE 2 GM IV ASDIR (PRN) POTASSIUM CHLORIDE 20 MEQ PO ASDIR PRN SODIUM PHOSPHATE with/in SODIUM CHLORIDE 0.9% 30 MM IV ASDIR (PRN) ISOSORBIDE MONONITRATE 30 MG PO DAILY ASPIRIN 81 MG PO DAILY polyethylene glycoL 3350 1 PKT PO DAILY SODIUM PHOSPHATE with/in SODIUM CHLORIDE 0.9% 15 MM IV ASDIR (PRN) TICAGRELOR 90 MG PO Q12HR GLUCAGON 1 MG IM ASDIR PRN ATORVASTATIN CALCIUM 40 MG PO BEDTIME CARBOXYMETHYLCELLULOSE SODIUM 2 DROP EACH EYE Q1H PRN NITROGLYCERIN 0.4 MG SL Q5M PRN bisacodyL 10 MG RECTAL DAILY PRN FOLIC ACID 1 MG PO DAILY ONDANSETRON HCL/PF 4 MG IV Q4H PRN MULTIVITAMIN WITH FOLIC ACID 400 MCG PO DAILY ACETAMINOPHEN 650 MG PO Q6H PRN MAGNESIUM SULFATE 4 G IV ASDIR (PRN) MUPIROCIN 1 APPLIC NASAL BID NICOTINE 21 MG TOPICAL DAILY DOCUSATE SODIUM 200 MG PO DAILY THIAMINE HCL 100 MG PO DAILY METOPROLOL TARTRATE 50 MG PO Q8HR LABS MAG (06/05/22 16:17) MAGNESIUM 1.8 BASIC METABOLIC PANEL (06/05/22 16:17) SODIUM 130L L POTASSIUM 4.7 CHLORIDE 99 CARBON DIOXIDE 25 GLUCOSE 104 BLOOD UREA NITROGEN 7L L GLOMERULAR FILTRATION RATE >=60 max estimate CREATININE 0.80 CALCIUM 8.6 L PHOS (06/05/22 16:17) PHOSPHOROUS 3.6 BLOOD GAS W/ELECTROLYTES (06/05/22 02:50) ARTERIAL BLOOD GAS PH 7.45 ARTERIAL BLOOD GAS PCO2 36.3 ARTERIAL BLOOD GAS PO2 75.1 L BICARBONATE TOTAL HCO3 24.6 H BASE EXCESS 0.8 ABG O2 SATURATION 95.6 ARTERIAL FIO2 21.0 ABG VENT MODE Room Air ALLENS TEST NOT APPLICABLE SODIUM (POC) 132 L POTASSIUM (POC) 4.34 CHLORIDE (ARTERIAL) 99 GLUCOSE 87 IONIZED CALCIUM 1.18 POC LACTIC ACID 0.90 TOTAL HGB 11.9 D L CARBOXYHEMOGLOBIN 0.3 METHEMOGLOBIN <0.8 HHb 4.4 TCO2 ARTERIAL 25.7 PTT (06/05/22 02:41) THROMBOPLASTIN TIME PARTIAL 30.8 FIB (06/05/22 02:41) FIBRINOGEN 550 H CBC W/AUTO DIFF (06/05/22 02:34) WHITE BLOOD CELL 7.8 RED BLOOD CELL 2.99 L HEMOGLOBIN 10.9L L HEMATOCRIT 31.6L L MEAN CELL VOLUME 105.7 H MEAN CELL HGB 36.5 H MEAN CELL HGB CONCENTRATION 34.5 RED CELL DISTRIBUTION WIDTH 13.1 PLATELET COUNT 264 MEAN PLATELET VOLUME 8.7 L NEUTROPHIL % 79.1 H LYMPHOCYTE % 10.2 L MONOCYTE % 9.3 EOSINOPHIL % 0.4 BASOPHIL % 0.5 NEUTROPHIL # 6.13 LYMPHOCYTE # 0.79 L MONOCYTE # 0.72 EOSINOPHIL # 0.03 BASOPHIL # 0.04 COMPREHENSIVE METABOLIC PANEL (06/05/22 02:34) SODIUM 133 L POTASSIUM 4.3 CHLORIDE 102 CARBON DIOXIDE 24 GLUCOSE 89 BLOOD UREA NITROGEN 8 L GLOMERULAR FILTRATION RATE >=60 max estimate CREATININE 0.60 L TOTAL PROTEIN 6.3 ALBUMIN 4.1 CALCIUM 8.7 BILIRUBIN TOTAL 0.5 SGOT/AST 164 H SGPT/ALT 41 ALKALINE PHOSPHATASE 88.0 MAG (06/05/22 02:34) MAGNESIUM 1.8 PHOS (06/05/22 02:34) PHOSPHOROUS 3.8 BASIC METABOLIC PANEL (06/04/22 20:38) SODIUM 133L L POTASSIUM 4.1 CHLORIDE 102 CARBON DIOXIDE 22 GLUCOSE 117H H BLOOD UREA NITROGEN 7L L GLOMERULAR FILTRATION RATE >=60 max estimate CREATININE 0.60L L CALCIUM 8.6 L CBC W/AUTO DIFF (06/04/22 20:38) WHITE BLOOD CELL 9.0 RED BLOOD CELL 3.19 L HEMOGLOBIN 11.7L L HEMATOCRIT 34.2L L MEAN CELL VOLUME 107.2 H MEAN CELL HGB 36.7 H MEAN CELL HGB CONCENTRATION 34.2 RED CELL DISTRIBUTION WIDTH 13.1 PLATELET COUNT 289 MEAN PLATELET VOLUME 8.7 L NEUTROPHIL % 75.9 H LYMPHOCYTE % 14.8 L MONOCYTE % 7.5 EOSINOPHIL % 0.8 BASOPHIL % 0.3 NEUTROPHIL # 6.84 LYMPHOCYTE # 1.33 MONOCYTE # 0.68 EOSINOPHIL # 0.07 BASOPHIL # 0.03 PHOS (06/04/22 20:38) PHOSPHOROUS 3.8 MAG (06/04/22 20:38) MAGNESIUM 2.0 BLOOD GAS W/ELECTROLYTES (06/04/22 20:35) ARTERIAL BLOOD GAS PH 7.39 ARTERIAL BLOOD GAS PCO2 39.6 ARTERIAL BLOOD GAS PO2 49.3 *L BICARBONATE TOTAL HCO3 23.5 BASE EXCESS -1.2 ABG O2 SATURATION 83.3 L ARTERIAL FIO2 32.0 ABG VENT MODE NASAL CANNULA ALLENS TEST NOT APPLICABLE SODIUM (POC) 133 L POTASSIUM (POC) 4.17 CHLORIDE (ARTERIAL) 100 GLUCOSE 113 H IONIZED CALCIUM 1.18 POC LACTIC ACID 1.23 TOTAL HGB 12.6 L OXYHEMOGLOBIN 82.8 L CARBOXYHEMOGLOBIN 0.3 METHEMOGLOBIN <0.8 HHb 16.6 TCO2 ARTERIAL 24.8 ACT (06/04/22 19:46) COAGULATION TIME ACTIVATED 233 H ACT (06/04/22 18:52) COAGULATION TIME ACTIVATED 149 H -- QUALITY -- -MEDICATIONS- - I attest that the foregoing medication list in the medical record is true, accurate, and complete to the best of my knowledge. -- ATTESTATION -- CARE ACTIVITIES / CARE COORDINATION: - I have reviewed the history and repeated the carias elements - I have seen and examined this patient - I have reviewed the progress in the clinical course since the last examination - I have discussed the patient's condition with other members of the care team Signed in PatientKeeper by Nnamdi Rachel MD on 06/05/22 at 18:33 at 1833 ATTENTION *EDITS and/or ADDENDA must be made in Patient Keeper for this note. * * Edits and ammendments created in [employer] are not visible * * in Patient Keeper or the legal medical record ([facility]). * RPT #: [id number] END OF REPORT [facility] 2022-06-05 09:54:00 [facility] ([facility]) Intensive Care Progress Note REPORT #: [id number] REPORT STATUS: Signed DATE: 06/05/22 TIME: 953 PATIENT: KOTA MONTES UNIT #: [id number] ROOM #: [id number] BED: 1 : 61 AGE: 61 SEX: M ATTEND: Annabelle Zazueta MD ADM AUTHOR: Shonna Laughlin APRN ATTENTION *EDITS and/or ADDENDA must be made in Patient Keeper for this note. * * Edits and ammendments created in [employer] are not visible * * in Patient Keeper or the legal medical record ([facility]). * -- CO-SIGNATURE -- COMMENTS: I evaluated the patient in the ICU. I agree with the documented note per Shonna Laughlin APRN. I reviewed labs, imaging, meds and medical records. I discussed plan of care with the patient, family, and ICU team Signed in PatientKeeper by ROCHELLE POWELL MD on 06/05/22 at 17:19 -- ASSESSMENT AND PLAN -- HOSPITAL COURSE TO DATE: Patient is a 61-year-old male with a past medical history of HTN, NM S/p PCI x 2 in 2005, and dyslipidemia who presented to the ED with c/o chest pain. The patient experienced pressure like 9/10 pain, non-radiating, no associated symptoms, and no alleviating factors. Upon admission to the ED, he was found to have elevated troponin, hyponatremia, and anemia, Patient was loaded with aspirin/plavix, started on heparin infusion, cardiology was consulted and patient was admitted to medicine for further management. He underwent a PCI, and a stent was placed, however, he was transferred to [facility] for further management and completion of high risk PCI. He arrived in stable condition, denying chest pain. GENERAL ASSESSMENT: Assessment and Plan Neuro #acute pain #ETOH dependence #anxiety -CIWA protocol -folic/thiamine -prn pain meds CV #NSTEMI #CAD #HTN #HLD #Hx NM w 2 stents 2005 -s/p cath at [facility] N Xkzqoti-ozyht-apkosk disease -imdur -asa, brilinta, statin, metoprolol-patient refusing meds -trend EKG, troponin -denies chest pain -PCI 4/3 RCA stent, Cx stenotic and balloon angio, sheaths left in for possible MCS -venous/arterial sheath removed and fem-stop applied-bedrest for [address] Lynch -Dr. Lynch following Resp #nicotine dependence -supplemental oxygen for SpO2 >92% -nicotine patch dose increased per patient insistence -smoking cessation counseling -IS -CXR GI #nutrition -cardiac diet -bowel regimen Renal #no acute issues -strict I/O -trend renal function -trend electrolytes and replace as necessary Heme/ID #no stigmata of infection or bleeding noted -trend CBC -trend fever curve Endo #euglycemia -FSBG -SSI prn Prophylaxis VTE: SCD GI: PPI Full code per patient chart Medications reviewed with the clinical pharmacist Patient belligerent, inappropriate sexual inuendos, rude with nursing staff, [employer]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 Patient angry and wanted to leave AMA. Risks of leaving AMA and not completing inpatient treatment discussed with patient at length. Patient has now agreed to remain inpatient until deemed safe for discharge home from the hospital. Plan of care and patient rounded on with the ICU Rn Orthopaedic, Dr. Powell -- SUBJECTIVE -- -REVIEW OF SYSTEMS- GENERAL: Negative for fever, malaise, fatigue. Agitated at times EYES: Negative for blurry vision. No diplopia. EARS/NOSE/THROAT: Negative for sore throat. No otalgia. No rhinorrhea. RESPIRATORY: Negative for dyspnea or wheeze. + non productive cough. CARDIOVASCULAR: Negative for chest pain or palpitations. No extremity swelling. GASTROINTESTINAL: Negative for abdominal pain or nausea. No emesis. No diarrhea. GENITOURINARY: Negative for dysuria, frequency, or urgency. No gross hematuria. MUSCULOSKELETAL: Negative for joint stiffness, pain, or arthralgias. SKIN: Negative for rashes. No pruritus. NEUROLOGICAL: Negative for headache. No vertigo. Denies paresthesias. PSYCHIATRIC: Negative for specific complaints. ENDOCRINE: Negative for cold intolerance, heat intolerance, polyphagia, polydipsia, polyuria, weight change, fatigue. -- OBJECTIVE -- VITALS (06/04 09:54 - 06/05 09:54): Temperature F: 98.4 (98.2 - 98.4) Pulse Rate 81 (73 - 110) Respiratory rate: 14 (11 - 30) BP: 126/72 (90/23 - 192/108) Blood pressure source: Arterial I/Os (06/04 07:00 - 06/05 07:00): Net -1,404.40 Intake 95.60 Output 1,500 -EXAM- GENERAL: Well developed, well nourished, in no apparent distress. HEAD: Normocephalic, atraumatic. EYES: PERRL, EOM intact, red conjunctiva and sclera clear, without nystagmus, lids normal. EARS: grossly normal hearing. NOSE: No deformity, no discharge, no inflammation, no lesions. MOUTH: Oropharynx without deformities or lesions, normal mucosa. Poor dentition NECK: No masses, no thyromegaly, no abnormal cervical nodes, trachea midline. No JVD CHEST: Grossly normal appearance. LUNGS: Clear bilaterally with normal respiratory effort. HEART: Regular rate and rhythm, normal S1, S2 ABDOMEN: Soft, non-tender, no organomegaly, no masses noted. MUSCULOSKELETAL: No deformity, no scoliosis noted of thoracic or lumbar spine, joint ROM grossly normal, normal gait and station. EXTREMITIES: No clubbing, no cyanosis, no edema. Venous/arterial sheath right femoral NEUROLOGICAL: No focal deficits, cranial nerves II-XII grossly intact, normal sensation, normal reflexes, normal coordination, normal muscle strength, normal tone. PULSES: Pulses normal in all extremities. SKIN: Intact without significant lesions, or rashes. PSYCHIATRIC: Alert and oriented to time, person, place. Normal mood and affect, intact judgment and insight. Anxious at times -- DATA -- MEDICATIONS POTASSIUM CHLORIDE IN WATER 10 MEQ IV ASDIR (PRN) PROPYLENE GLYCOL/PEG 400 1 DROP EACH EYE Q8HR SODIUM PHOSPHATE with/in SODIUM CHLORIDE 0.9% 45 MM IV ASDIR (PRN) SODIUM PHOSPHATE with/in SODIUM CHLORIDE 0.9% 30 MM IV ASDIR (PRN) ISOSORBIDE MONONITRATE 30 MG PO DAILY morphine SULFATE 2 MG IV Q4H PRN ASPIRIN 81 MG PO DAILY SODIUM PHOSPHATE with/in SODIUM CHLORIDE 0.9% 15 MM IV ASDIR (PRN) TICAGRELOR 90 MG PO Q12HR ATORVASTATIN CALCIUM 40 MG PO BEDTIME CARBOXYMETHYLCELLULOSE SODIUM 2 DROP EACH EYE Q1H PRN ACETAMINOPHEN 650 MG PO Q6H PRN MAGNESIUM SULFATE 4 G IV ASDIR (PRN) MUPIROCIN 1 APPLIC NASAL BID NICOTINE 21 MG TOPICAL DAILY METOPROLOL TARTRATE 50 MG PO Q8HR chlordiazePOXIDE HCl 25 MG PO BID MAGNESIUM SULFATE 2 GM IV ASDIR (PRN) POTASSIUM CHLORIDE 20 MEQ PO ASDIR PRN THIAMINE HCL 100 MG IV DAILY polyethylene glycoL 3350 1 PKT PO DAILY flumazeniL 0.2 MG IV ASDIR PRN GLUCAGON 1 MG IM ASDIR PRN NITROGLYCERIN 0.4 MG SL Q5M PRN bisacodyL 10 MG RECTAL DAILY PRN FAMOTIDINE 20 MG PO Q12HR FOLIC ACID 1 MG PO DAILY ONDANSETRON HCL/PF 4 MG IV Q4H PRN MULTIVITAMIN WITH FOLIC ACID 400 MCG PO DAILY DOCUSATE SODIUM 200 MG PO DAILY dexmedeTOMidine HCL with/in SODIUM CHLORIDE 0.9% 1000 MCG IV ASDIR LABS BLOOD GAS W/ELECTROLYTES (06/05/22 02:50) ARTERIAL BLOOD GAS PH 7.45 ARTERIAL BLOOD GAS PCO2 36.3 ARTERIAL BLOOD GAS PO2 75.1 L BICARBONATE TOTAL HCO3 24.6 H BASE EXCESS 0.8 ABG O2 SATURATION 95.6 ARTERIAL FIO2 21.0 ABG VENT MODE Room Air ALLENS TEST NOT APPLICABLE SODIUM (POC) 132 L POTASSIUM (POC) 4.34 CHLORIDE (ARTERIAL) 99 GLUCOSE 87 IONIZED CALCIUM 1.18 POC LACTIC ACID 0.90 TOTAL HGB 11.9 D L CARBOXYHEMOGLOBIN 0.3 METHEMOGLOBIN <0.8 HHb 4.4 TCO2 ARTERIAL 25.7 PTT (06/05/22 02:41) THROMBOPLASTIN TIME PARTIAL 30.8 FIB (06/05/22 02:41) FIBRINOGEN 550 H CBC W/AUTO DIFF (06/05/22 02:34) WHITE BLOOD CELL 7.8 RED BLOOD CELL 2.99 L HEMOGLOBIN 10.9L L HEMATOCRIT 31.6L L MEAN CELL VOLUME 105.7 H MEAN CELL HGB 36.5 H MEAN CELL HGB CONCENTRATION 34.5 RED CELL DISTRIBUTION WIDTH 13.1 PLATELET COUNT 264 MEAN PLATELET VOLUME 8.7 L NEUTROPHIL % 79.1 H LYMPHOCYTE % 10.2 L MONOCYTE % 9.3 EOSINOPHIL % 0.4 BASOPHIL % 0.5 NEUTROPHIL # 6.13 LYMPHOCYTE # 0.79 L MONOCYTE # 0.72 EOSINOPHIL # 0.03 BASOPHIL # 0.04 COMPREHENSIVE METABOLIC PANEL (06/05/22 02:34) SODIUM 133 L POTASSIUM 4.3 CHLORIDE 102 CARBON DIOXIDE 24 GLUCOSE 89 BLOOD UREA NITROGEN 8 L GLOMERULAR FILTRATION RATE >=60 max estimate CREATININE 0.60 L TOTAL PROTEIN 6.3 ALBUMIN 4.1 CALCIUM 8.7 BILIRUBIN TOTAL 0.5 SGOT/AST 164 H SGPT/ALT 41 ALKALINE PHOSPHATASE 88.0 MAG (06/05/22 02:34) MAGNESIUM 1.8 PHOS (06/05/22 02:34) PHOSPHOROUS 3.8 BASIC METABOLIC PANEL (06/04/22 20:38) SODIUM 133L L POTASSIUM 4.1 CHLORIDE 102 CARBON DIOXIDE 22 GLUCOSE 117H H BLOOD UREA NITROGEN 7L L GLOMERULAR FILTRATION RATE >=60 max estimate CREATININE 0.60L L CALCIUM 8.6 L CBC W/AUTO DIFF (06/04/22 20:38) WHITE BLOOD CELL 9.0 RED BLOOD CELL 3.19 L HEMOGLOBIN 11.7L L HEMATOCRIT 34.2L L MEAN CELL VOLUME 107.2 H MEAN CELL HGB 36.7 H MEAN CELL HGB CONCENTRATION 34.2 RED CELL DISTRIBUTION WIDTH 13.1 PLATELET COUNT 289 MEAN PLATELET VOLUME 8.7 L NEUTROPHIL % 75.9 H LYMPHOCYTE % 14.8 L MONOCYTE % 7.5 EOSINOPHIL % 0.8 BASOPHIL % 0.3 NEUTROPHIL # 6.84 LYMPHOCYTE # 1.33 MONOCYTE # 0.68 EOSINOPHIL # 0.07 BASOPHIL # 0.03 PHOS (06/04/22 20:38) PHOSPHOROUS 3.8 MAG (06/04/22 20:38) MAGNESIUM 2.0 BLOOD GAS W/ELECTROLYTES (06/04/22 20:35) ARTERIAL BLOOD GAS PH 7.39 ARTERIAL BLOOD GAS PCO2 39.6 ARTERIAL BLOOD GAS PO2 49.3 *L BICARBONATE TOTAL HCO3 23.5 BASE EXCESS -1.2 ABG O2 SATURATION 83.3 L ARTERIAL FIO2 32.0 ABG VENT MODE NASAL CANNULA ALLENS TEST NOT APPLICABLE SODIUM (POC) 133 L POTASSIUM (POC) 4.17 CHLORIDE (ARTERIAL) 100 GLUCOSE 113 H IONIZED CALCIUM 1.18 POC LACTIC ACID 1.23 TOTAL HGB 12.6 L OXYHEMOGLOBIN 82.8 L CARBOXYHEMOGLOBIN 0.3 METHEMOGLOBIN <0.8 HHb 16.6 TCO2 ARTERIAL 24.8 ACT (06/04/22 19:46) COAGULATION TIME ACTIVATED 233 H ACT (06/04/22 18:52) COAGULATION TIME ACTIVATED 149 H ACT (06/04/22 17:26) COAGULATION TIME ACTIVATED 353 H BASIC METABOLIC PANEL (06/04/22 11:14) SODIUM 135L L POTASSIUM 4.1 CHLORIDE 104 CARBON DIOXIDE 27 GLUCOSE 92 BLOOD UREA NITROGEN 7L L GLOMERULAR FILTRATION RATE >=60 max estimate CREATININE 0.60L L CALCIUM 8.7 MAG (06/04/22 11:14) MAGNESIUM 1.8 Signed in PatientKeeper by Shonna Laughlin APRN on 06/05/22 at 14:27 Cosigned by ROCHELLE POWELL MD on 06/05/22 at 17:19 at 1719 at 1719 ATTENTION *EDITS and/or ADDENDA must be made in Patient Keeper for this note. * * Edits and ammendments created in [employer] are not visible * * in Patient Keeper or the legal medical record ([facility]). * RPT #: [id number] END OF REPORT [facility] 2022-06-05 07:30:00 [facility] ([facility]) Cardiology Progress Notes REPORT #: [id number] REPORT STATUS: Signed DATE: 06/05/22 TIME: 729 PATIENT: KOTA MONTES UNIT #: [id number] ROOM #: P.[id number] BED: 1 : 61 AGE: 61 SEX: M ATTEND: Annabelle Zazueta MD ADM AUTHOR: Camron Patel ATTENTION *EDITS and/or ADDENDA must be made in Patient Keeper for this note. * * Edits and ammendments created in [employer] are not visible * * in Patient Keeper or the legal medical record ([facility]). * -- CO-SIGNATURE -- COMMENTS: The patient was seen on rounds with MIAH Monge. The patient has no complaints Examination demonstrates normal heart sounds and clear lung armijo. Impression and plan The patient is status post high risk intervention to the right coronary artery and left circumflex artery yesterday. We will remove the sheaths today as the patient was stable overnight. We will continue dual antiplatelet therapy and statin. He will also remain on beta-blockade and Imdur. Signed in PatientKeeper by KURTIS LYNCH MD on 06/17/22 at 10:18 -- ASSESSMENT AND PLAN -- PROBLEMS: 1: NSTEMI (non-ST elevated myocardial infarction) A/P: The patient is a 61-year-old gentleman with a PMHx of alcohol/tobacco abuse, hypertension, hyperlipidemia, and NM in 2005 with PCI X2, positive family history of coronary artery disease, who presented to [facility] on 05/27/2022 with chest discomfort that had been going on for the past 3 months. He ruled in for an NSTEMI with a peak high-sensitivity troponin of 2044. His ECHO demonstrated a LVEF of 55-60% with mild MR. He had a LHC on 05/28/2022 that demonstrated patent left main, patent LAD, ostial LCx 90%, OM1 w/ mid 70%, and heavily calcified RCA with multiple stents and 60-70% in-stent restenosis (right dominant). Dr. Knox attempted PCI but due to calcified vessel was unsuccessful and now patient is transferred here for high risk intervention. He underwent successful high-risk percutaneous coronary intervention to RCA with placement of 1 stent and to LCx with PTCA, atherectomy and intravascular lithotripsy on 06/04/[address] Lynch (see op-note). He tolerated the procedure well and was transferred back to CVICU for closer observation. - S/p successful high-risk PCI to RCA and LCx on 06/04/22. Hemodynamically stable overnight. - Continue aspirin, brilinta (switched from clopidogrel), and atorvastatin 40mg daily - Continue metoprolol tartrate 50mg Q8H and Imdur 30mg daily - On Thiamine and Folate - high risk for withdrawals. On Librium. - Smoking cessation but patient is stating he is not going to quit. - During morning round with Dr. Lynch was discussed with the patient the importance of staying another day for closer observation due to high-risk PCI on 06/04/22. He verbalized understanding and later morning the patient wanted to leave AMA. He was advised against leaving AMA by the multi-disciplinary team but still wanted to leave AMA verbalizing that he understands the risk he is taking. He was disrespectful, rude and belligerent with the multi-disciplinary team including nursing staff. Per Dr. Lynch's order, the sheaths at the groin access site can be removed followed by 4 hours bed rest. Later, the patient agreed to remain inpatient until deemed safe for discharge home from the hospital. -- SUBJECTIVE -- CHIEF COMPLAINT: Chest pain PATIENT NARRATIVE: Resting in bed. No acute events overnight by nursing staff. -REVIEW OF SYSTEMS- GENERAL: Negative for fever, malaise, fatigue. EYES: Negative for blurry vision. No diplopia. +burning from OSH eye drops EARS/NOSE/THROAT: Negative for sore throat. No otalgia. No rhinorrhea. RESPIRATORY: Negative for dyspnea or wheeze. + non productive cough. CARDIOVASCULAR: Negative for chest pain or palpitations. No extremity swelling. GASTROINTESTINAL: Negative for abdominal pain or nausea. No emesis. No diarrhea. GENITOURINARY: Negative for dysuria, frequency, or urgency. No gross hematuria. MUSCULOSKELETAL: Negative for joint stiffness, pain, or arthralgias. SKIN: Negative for rashes. No pruritus. NEUROLOGICAL: Negative for headache. No vertigo. Denies paresthesias. PSYCHIATRIC: Negative for specific complaints. ENDOCRINE: Negative for cold intolerance, heat intolerance, polyphagia, polydipsia, polyuria, weight change, fatigue. -- OBJECTIVE -- VITALS (06/04 09:55 - 06/05 09:55): Temperature F: 98.4 (98.2 - 98.4) Pulse Rate 81 (73 - 110) Respiratory rate: 14 (11 - 30) BP: 126/72 (90/23 - 192/108) Blood pressure source: Arterial I/Os (06/04 07:00 - 06/05 07:00): Net -1,404.40 Intake 95.60 Output 1,500 -EXAM- GENERAL: Well developed, well nourished, in no apparent distress. HEAD: Normocephalic, atraumatic. EYES: PERRL, EOM intact, red conjunctiva and sclera clear, without nystagmus, lids normal. EARS: grossly normal hearing. NOSE: No deformity, no discharge, no inflammation, no lesions. MOUTH: Oropharynx without deformities or lesions, normal mucosa. Poor dentition NECK: No masses, no thyromegaly, no abnormal cervical nodes, trachea midline. No JVD CHEST: Grossly normal appearance. LUNGS: Clear bilaterally with normal respiratory effort. HEART: Regular rate and rhythm, normal S1, S2 ABDOMEN: Soft, non-tender, no organomegaly, no masses noted. MUSCULOSKELETAL: No deformity, no scoliosis noted of thoracic or lumbar spine, joint ROM grossly normal, normal gait and station. EXTREMITIES: No clubbing, no cyanosis, no edema. NEUROLOGICAL: No focal deficits, cranial nerves II-XII grossly intact, normal sensation, normal reflexes, normal coordination, normal muscle strength, normal tone. PULSES: Pulses normal in all extremities. SKIN: Intact without significant lesions, or rashes. PSYCHIATRIC: Alert and oriented to time, person, place. Normal mood and affect, intact judgment and insight. Anxious at times -- DATA -- MEDICATIONS POTASSIUM CHLORIDE IN WATER 10 MEQ IV ASDIR (PRN) PROPYLENE GLYCOL/PEG 400 1 DROP EACH EYE Q8HR SODIUM PHOSPHATE with/in SODIUM CHLORIDE 0.9% 45 MM IV ASDIR (PRN) SODIUM PHOSPHATE with/in SODIUM CHLORIDE 0.9% 30 MM IV ASDIR (PRN) ISOSORBIDE MONONITRATE 30 MG PO DAILY morphine SULFATE 2 MG IV Q4H PRN ASPIRIN 81 MG PO DAILY SODIUM PHOSPHATE with/in SODIUM CHLORIDE 0.9% 15 MM IV ASDIR (PRN) TICAGRELOR 90 MG PO Q12HR ATORVASTATIN CALCIUM 40 MG PO BEDTIME CARBOXYMETHYLCELLULOSE SODIUM 2 DROP EACH EYE Q1H PRN ACETAMINOPHEN 650 MG PO Q6H PRN MAGNESIUM SULFATE 4 G IV ASDIR (PRN) MUPIROCIN 1 APPLIC NASAL BID NICOTINE 21 MG TOPICAL DAILY METOPROLOL TARTRATE 50 MG PO Q8HR chlordiazePOXIDE HCl 25 MG PO BID MAGNESIUM SULFATE 2 GM IV ASDIR (PRN) POTASSIUM CHLORIDE 20 MEQ PO ASDIR PRN THIAMINE HCL 100 MG IV DAILY polyethylene glycoL 3350 1 PKT PO DAILY flumazeniL 0.2 MG IV ASDIR PRN GLUCAGON 1 MG IM ASDIR PRN NITROGLYCERIN 0.4 MG SL Q5M PRN bisacodyL 10 MG RECTAL DAILY PRN FAMOTIDINE 20 MG PO Q12HR FOLIC ACID 1 MG PO DAILY ONDANSETRON HCL/PF 4 MG IV Q4H PRN MULTIVITAMIN WITH FOLIC ACID 400 MCG PO DAILY DOCUSATE SODIUM 200 MG PO DAILY dexmedeTOMidine HCL with/in SODIUM CHLORIDE 0.9% 1000 MCG IV ASDIR LABS BLOOD GAS W/ELECTROLYTES (06/05/22 02:50) ARTERIAL BLOOD GAS PH 7.45 ARTERIAL BLOOD GAS PCO2 36.3 ARTERIAL BLOOD GAS PO2 75.1 L BICARBONATE TOTAL HCO3 24.6 H BASE EXCESS 0.8 ABG O2 SATURATION 95.6 ARTERIAL FIO2 21.0 ABG VENT MODE Room Air ALLENS TEST NOT APPLICABLE SODIUM (POC) 132 L POTASSIUM (POC) 4.34 CHLORIDE (ARTERIAL) 99 GLUCOSE 87 IONIZED CALCIUM 1.18 POC LACTIC ACID 0.90 TOTAL HGB 11.9 D L CARBOXYHEMOGLOBIN 0.3 METHEMOGLOBIN <0.8 HHb 4.4 TCO2 ARTERIAL 25.7 PTT (06/05/22 02:41) THROMBOPLASTIN TIME PARTIAL 30.8 FIB (06/05/22 02:41) FIBRINOGEN 550 H CBC W/AUTO DIFF (06/05/22 02:34) WHITE BLOOD CELL 7.8 RED BLOOD CELL 2.99 L HEMOGLOBIN 10.9L L HEMATOCRIT 31.6L L MEAN CELL VOLUME 105.7 H MEAN CELL HGB 36.5 H MEAN CELL HGB CONCENTRATION 34.5 RED CELL DISTRIBUTION WIDTH 13.1 PLATELET COUNT 264 MEAN PLATELET VOLUME 8.7 L NEUTROPHIL % 79.1 H LYMPHOCYTE % 10.2 L MONOCYTE % 9.3 EOSINOPHIL % 0.4 BASOPHIL % 0.5 NEUTROPHIL # 6.13 LYMPHOCYTE # 0.79 L MONOCYTE # 0.72 EOSINOPHIL # 0.03 BASOPHIL # 0.04 COMPREHENSIVE METABOLIC PANEL (06/05/22 02:34) SODIUM 133 L POTASSIUM 4.3 CHLORIDE 102 CARBON DIOXIDE 24 GLUCOSE 89 BLOOD UREA NITROGEN 8 L GLOMERULAR FILTRATION RATE >=60 max estimate CREATININE 0.60 L TOTAL PROTEIN 6.3 ALBUMIN 4.1 CALCIUM 8.7 BILIRUBIN TOTAL 0.5 SGOT/AST 164 H SGPT/ALT 41 ALKALINE PHOSPHATASE 88.0 MAG (06/05/22 02:34) MAGNESIUM 1.8 PHOS (06/05/22 02:34) PHOSPHOROUS 3.8 BASIC METABOLIC PANEL (06/04/22 20:38) SODIUM 133L L POTASSIUM 4.1 CHLORIDE 102 CARBON DIOXIDE 22 GLUCOSE 117H H BLOOD UREA NITROGEN 7L L GLOMERULAR FILTRATION RATE >=60 max estimate CREATININE 0.60L L CALCIUM 8.6 L CBC W/AUTO DIFF (06/04/22 20:38) WHITE BLOOD CELL 9.0 RED BLOOD CELL 3.19 L HEMOGLOBIN 11.7L L HEMATOCRIT 34.2L L MEAN CELL VOLUME 107.2 H MEAN CELL HGB 36.7 H MEAN CELL HGB CONCENTRATION 34.2 RED CELL DISTRIBUTION WIDTH 13.1 PLATELET COUNT 289 MEAN PLATELET VOLUME 8.7 L NEUTROPHIL % 75.9 H LYMPHOCYTE % 14.8 L MONOCYTE % 7.5 EOSINOPHIL % 0.8 BASOPHIL % 0.3 NEUTROPHIL # 6.84 LYMPHOCYTE # 1.33 MONOCYTE # 0.68 EOSINOPHIL # 0.07 BASOPHIL # 0.03 PHOS (06/04/22 20:38) PHOSPHOROUS 3.8 MAG (06/04/22 20:38) MAGNESIUM 2.0 BLOOD GAS W/ELECTROLYTES (06/04/22 20:35) ARTERIAL BLOOD GAS PH 7.39 ARTERIAL BLOOD GAS PCO2 39.6 ARTERIAL BLOOD GAS PO2 49.3 *L BICARBONATE TOTAL HCO3 23.5 BASE EXCESS -1.2 ABG O2 SATURATION 83.3 L ARTERIAL FIO2 32.0 ABG VENT MODE NASAL CANNULA ALLENS TEST NOT APPLICABLE SODIUM (POC) 133 L POTASSIUM (POC) 4.17 CHLORIDE (ARTERIAL) 100 GLUCOSE 113 H IONIZED CALCIUM 1.18 POC LACTIC ACID 1.23 TOTAL HGB 12.6 L OXYHEMOGLOBIN 82.8 L CARBOXYHEMOGLOBIN 0.3 METHEMOGLOBIN <0.8 HHb 16.6 TCO2 ARTERIAL 24.8 ACT (06/04/22 19:46) COAGULATION TIME ACTIVATED 233 H ACT (06/04/22 18:52) COAGULATION TIME ACTIVATED 149 H ACT (06/04/22 17:26) COAGULATION TIME ACTIVATED 353 H BASIC METABOLIC PANEL (06/04/22 11:14) SODIUM 135L L POTASSIUM 4.1 CHLORIDE 104 CARBON DIOXIDE 27 GLUCOSE 92 BLOOD UREA NITROGEN 7L L GLOMERULAR FILTRATION RATE >=60 max estimate CREATININE 0.60L L CALCIUM 8.7 MAG (06/04/22 11:14) MAGNESIUM 1.8 -- ATTESTATION -- CARE ACTIVITIES / CARE COORDINATION: - I have reviewed the history and repeated the carias elements - I have seen and examined this patient - I have reviewed the progress in the clinical course since the last examination - I have discussed the patient's condition with other members of the care team ADDITIONAL DETAIL: Plan of care discussed with Dr. Kurtis Lynch Signed in PatientKeeper by CAMRON PATEL on 06/05/22 at 22:27 Cosigned by KURTIS LYNCH MD on 06/17/22 at 10:18 at 1018 at 1018 ATTENTION *EDITS and/or ADDENDA must be made in Patient Keeper for this note. * * Edits and ammendments created in [employer] are not visible * * in Patient Keeper or the legal medical record ([facility]). * [facility] #: [id number] END OF REPORT [facility] 2022-06-05 04:18:00 [id number] [facility] [address] [place] [id number] PATIENT NAME: KOTA MONTES ADMIT DATE: 06/02/22 ACCOUNT NO: [id number] ROOM NO: [id number] AGE: 61 REPORT TYPE: eELECTROCARDIOGRAM SEX: M ADMITTING PHYSICIAN: Annabelle Zazueta MD ATTENDING PHYSICIAN: Annabelle Zazueta MD Order: [id number] Test Reason : S/P PROCEDURE Test Date/Time Stamp: SatJun 05 2022 04:18:46 Blood Pressure : / mmHG Vent. Rate : 090 BPM Atrial Rate : 090 BPM P-R Int : 144 ms QRS Dur : 138 ms QT Int : 402 ms P-R-T Axes : 032 034 205 degrees QTc Int : 491 ms left arm/right leg lead reversal Normal sinus rhythm Left bundle branch block Abnormal ECG When compared with ECG of 02-JUN-2022 13:19, lead placement error is apparent Confirmed by MICHELLE WEINBERG MD ([id number]) on 06/11/2022 8:11:20 AM Referred By: Annabelle Zazueta Confirmed by:MICHELLE WEINBERG MD at 0811 PATIENT NAME: [facility] 2022-[facility] 14:30:00 [facility] ([facility]) Hospitalist Progress Note REPORT #: [id number] REPORT STATUS: Signed DATE: 06/04/22 TIME: 1430 PATIENT: KOTA MONTES UNIT #: [id number] ROOM #: P.[id number] BED: 1 : 61 AGE: 61 SEX: M ATTEND: Annabelle Zazueta MD ADM AUTHOR: Nnamdi Rachel MD ATTENTION *EDITS and/or ADDENDA must be made in Patient Keeper for this note. * * Edits and ammendments created in [facility] are not visible * * in Patient Keeper or the legal medical record ([facility]). * -- ASSESSMENT AND PLAN -- GENERAL ASSESSMENT: ASSESSMENT AND PLAN: 1. Non-ST segment elevation myocardial infarction in a patient with previous history of myocardial infarction and RCA stents in 2005. Preserved left ventricular ejection fraction, 55% to 60%. The patient has ongoing nicotine and alcohol abuse. Coronary angiogram shows ostial left circumflex 90%, obtuse marginal 1 mid 70% and heavily calcified RCA with multiple stents and 60% to 70% in-stent restenosis, right dominant system. Attempts at percutaneous coronary intervention at the outside hospital were not successful. The patient has been evaluated by Cardiothoracic Surgery services and recommendations are for high risk PCI by Dr. Kurtis Lynch. Continue beta-blockers, aspirin, Plavix, statins, and nitrates. The patient underwent, complex high risk PCI with 1 stent placement to the RCA, 2.75 x 34 mm [place] frontier, and PTCA to the left circumflex with atherectomy and intravenous lithotripsy 06/04 2. Hypertension, continue metoprolol. 3. Hyperlipidemia. Continue atorvastatin 40 mg daily. 4. Alcohol dependence. High risk of alcohol withdrawal. Continue chlordiazepoxide, lorazepam p.r.n., thiamine and folate. 5. Nicotine dependence. Around 50 pack-year tobacco use. The patient does not appear to be planning to quit smoking. Has a nicotine patch on at this time. 6. Eye irritation, continue carboxymethylcellulose and petrolatum eyedrops/ointment. 7. Hyponatremia, mild. No immediate intervention needed. 8. Anemia, chronic, may be related to nutrient deficiency. 9. Hypophosphatemia, replete. 10. Atherosclerotic cerebrovascular disease, 50% to 55% proximal bilateral internal carotid artery stenosis. Continue statins, aspirin and Plavix. 11. Recent ileus, improved. 12. Findings of hepatomegaly and small gallbladder calculi on CT scan recently. ADDITIONAL COMMENTS: s/p complex high risk PCI with 1 stent placement to the RCA, 2.75 x 34 mm Nick frontier, and PTCA to the left circumflex with atherectomy and intravenous lithotripsy 06/04. Will be in-house for the next 3 to 4 days, according to cardiology services. -- SUBJECTIVE -- HPI: This 61-year-old gentleman has a past medical history significant for hypertension, hyperlipidemia, myocardial infarction and percutaneous coronary intervention x2 in 2005, alcohol abuse and tobacco abuse and a strong family history of coronary artery disease. He has had complaints of recurrent chest pain with or without physical activity going on for about 3 to 4 months. He activated the EMS on 05/27/2022 when his chest pain got worse. He was taken to [facility] where he was ruled in for non-ST segment elevation myocardial infarction with a troponin greater than 2000. Echocardiogram showed normal left ventricular ejection fraction 55% to 60% and mild mitral regurgitation, and a coronary angiogram on 05/28 showed patent left main, patent LAD, left circumflex ostial 90% lesion, obtuse marginal 1 mid 70% lesion, heavily calcified RCA with multiple stents and a 60% to 70% in-stent restenosis. Dr. Knox attempted percutaneous coronary intervention, but was unable to cross the calcified vessel, and the procedure was aborted. The patient was transferred to the [facility] for higher level of care. During the hospitalization, the patient was also seen for abdominal distention and the impression is ileus, treated with Reglan. PATIENT NARRATIVE: 06/04: The patient was upset this morning and wanted to leave AMA. He was counseled. For high risk multivessel angioplasty today by Dr. Kurtis Lynch. *The patient underwent, complex high risk PCI with 1 stent placement to the RCA, 2.75 x 34 mm [place] frontier, and PTCA to the left circumflex with atherectomy and intravenous lithotripsy. The patient will be in-house for the next 3 to 4 days. -REVIEW OF SYSTEMS- GENERAL: CONSTITUTIONAL: The patient reports fatigue and tiredness. HEENT: Reports burning in the eyes. CARDIOPULMONARY: Reports chest pain with physical activity. GASTROINTESTINAL: Reports abdominal distention and some nausea earlier. No vomiting. GENITOURINARY: Denies any dysuria or discharge. NEUROLOGICAL: Reports numbness in his toes. -- OBJECTIVE -- VITALS (06/03 18:58 - 06/04 18:58): Temperature F: 97.7 (97.7 - 98.4) Temperature source: Oral Pulse Rate 84 (71 - 84) Respiratory rate: 16 (12 - 33) BP: 131/67 (111/55 - 173/89) Blood pressure source: Monitor I/Os (06/03 07:00 - 06/04 07:00): Net 930.10 Intake 930.10 Output 0 -EXAM- GENERAL: GENERAL: The patient is not in any acute distress. VITAL SIGNS: oxygen saturation is 98% on room air. HEENT: Head is atraumatic. Pupils are reactive to light and accommodation. Extraocular muscles intact. Sclerae are injected. NECK: Supple. No thyromegaly. No JVD. CARDIOVASCULAR: Regular rate and rhythm. No murmur, gallop, or rub could be appreciated. LUNGS: Clear to auscultation. ABDOMEN: Soft, nondistended, nontender, no organomegaly. EXTREMITIES: No edema, cyanosis or clubbing. Pedal pulses palpable. Nails have onycholysis. NEUROLOGIC: No focal deficit. -- DATA -- MEDICATIONS POTASSIUM CHLORIDE IN WATER 10 MEQ IV ASDIR (PRN) PROPYLENE GLYCOL/PEG 400 1 DROP EACH EYE Q8HR SODIUM PHOSPHATE with/in SODIUM CHLORIDE 0.9% 45 MM IV ASDIR (PRN) MAGNESIUM SULFATE 2 GM IV ASDIR (PRN) POTASSIUM CHLORIDE 20 MEQ PO ASDIR PRN SODIUM PHOSPHATE with/in SODIUM CHLORIDE 0.9% 30 MM IV ASDIR (PRN) ISOSORBIDE MONONITRATE 30 MG PO DAILY morphine SULFATE 2 MG IV Q4H PRN THIAMINE HCL 100 MG IV DAILY ASPIRIN 81 MG PO DAILY polyethylene glycoL 3350 1 PKT PO DAILY flumazeniL 0.2 MG IV ASDIR PRN SODIUM PHOSPHATE with/in SODIUM CHLORIDE 0.9% 15 MM IV ASDIR (PRN) clopidogreL 75 MG PO DAILY GLUCAGON 1 MG IM ASDIR PRN ATORVASTATIN CALCIUM 40 MG PO BEDTIME CARBOXYMETHYLCELLULOSE SODIUM 2 DROP EACH EYE Q1H PRN NITROGLYCERIN 0.4 MG SL Q5M PRN bisacodyL 10 MG RECTAL DAILY PRN FAMOTIDINE 20 MG PO Q12HR FOLIC ACID 1 MG PO DAILY ONDANSETRON HCL/PF 4 MG IV Q4H PRN MULTIVITAMIN WITH FOLIC ACID 400 MCG PO DAILY ACETAMINOPHEN 650 MG PO Q6H PRN MAGNESIUM SULFATE 4 G IV ASDIR (PRN) MUPIROCIN 1 APPLIC NASAL BID NICOTINE 21 MG TOPICAL DAILY DOCUSATE SODIUM 200 MG PO DAILY METOPROLOL TARTRATE 50 MG PO Q8HR chlordiazePOXIDE HCl 25 MG PO BID LABS ACT (06/04/22 17:26) COAGULATION TIME ACTIVATED 353 H BASIC METABOLIC PANEL (06/04/22 11:14) SODIUM 135L L POTASSIUM 4.1 CHLORIDE 104 CARBON DIOXIDE 27 GLUCOSE 92 BLOOD UREA NITROGEN 7L L GLOMERULAR FILTRATION RATE >=60 max estimate CREATININE 0.60L L CALCIUM 8.7 MAG (06/04/22 11:14) MAGNESIUM 1.8 MAG (06/04/22 00:09) MAGNESIUM 1.8 FIB (06/04/22 00:09) FIBRINOGEN 578 H PTT (06/04/22 00:09) THROMBOPLASTIN TIME PARTIAL 30.9 COMPREHENSIVE METABOLIC PANEL (06/04/22 00:09) SODIUM 137 POTASSIUM 4.2 CHLORIDE 105 CARBON DIOXIDE 27 GLUCOSE 100 BLOOD UREA NITROGEN 7 L GLOMERULAR FILTRATION RATE >=60 max estimate CREATININE 0.70 TOTAL PROTEIN 6.4 ALBUMIN 4.2 CALCIUM 9.0 BILIRUBIN TOTAL 0.3 SGOT/AST 36 H SGPT/ALT 27 ALKALINE PHOSPHATASE 102.0 CBC W/MANUAL DIFF (06/04/22 00:09) WHITE BLOOD CELL 5.8 RED BLOOD CELL 2.98 L HEMOGLOBIN 10.8L L HEMATOCRIT 31.4L L MEAN CELL VOLUME 105.4 H MEAN CELL HGB 36.2 H MEAN CELL HGB CONCENTRATION 34.4 RED CELL DISTRIBUTION WIDTH 13.2 PLATELET COUNT 251 MEAN PLATELET VOLUME 8.8 L TOTAL CELLS COUNTED 100 SEGMENTED NEUTROPHILS 62 LYMPHOCYTE 14 L ATYPICAL LYMPH 15 H MONOCYTE 8 EOSINOPHIL 1 HYPOCHROMIA 2+ H PLATELET ESTIMATE ADEQUATE PLATELET MORPHOLOGY NORMAL PHOS (06/04/22 00:09) PHOSPHOROUS 3.8 D PROTHROMBIN TIME (06/04/22 00:09) PROTHROMBIN TIME PATIENT 10.9 INTERNATIONAL NORMAL RATIO 0.92 BNP (06/04/22 00:09) B-TYPE NATRIURETIC PEPTIDE 75 -- QUALITY -- -MEDICATIONS- - I attest that the foregoing medication list in the medical record is true, accurate, and complete to the best of my knowledge. -- ATTESTATION -- CARE ACTIVITIES / CARE COORDINATION: - I have reviewed the history and repeated the carias elements - I have seen and examined this patient - I have reviewed the progress in the clinical course since the last examination - I have discussed the patient's condition with other members of the care team Signed in PatientKeeper by Nnamdi Rachel MD on 06/04/22 at 22:29 at 2229 ATTENTION *EDITS and/or ADDENDA must be made in Patient Keeper for this note. * * Edits and ammendments created in [employer] are not visible * * in Patient Keeper or the legal medical record ([facility]). * RPT #: [id number] END OF REPORT [facility] 2022-06-04 08:17:00 [facility] ([facility]) Intensive Care Progress Note REPORT #: [id number] REPORT STATUS: Signed DATE: 06/04/22 TIME: 816 PATIENT: KOTA MONTES UNIT #: [id number] ROOM #: P.0216 BED: 1 : 61 AGE: 61 SEX: M ATTEND: Annabelle Zazueta MD ADM AUTHOR: Shonna Laughlin APRN ATTENTION *EDITS and/or ADDENDA must be made in Patient Keeper for this note. * * Edits and ammendments created in [employer] are not visible * * in Patient Keeper or the legal medical record ([facility]). * -- CO-SIGNATURE -- COMMENTS: I evaluated the patient in the ICU. I agree with the documented note per Shonna Laughlin APRN. I reviewed labs, imaging, meds and medical records. I discussed plan of care with the patient and ICU team. Signed in PatientKeeper by ROCHELLE POWELL MD on 06/04/22 at 17:45 -- ASSESSMENT AND PLAN -- HOSPITAL COURSE TO DATE: Patient is a 61-year-old male with a past medical history of HTN, NM S/p PCI x 2 in 2005, and dyslipidemia who presented to the ED with c/o chest pain. The patient experienced pressure like 9/10 pain, non-radiating, no associated symptoms, and no alleviating factors. Upon admission to the ED, he was found to have elevated troponin, hyponatremia, and anemia, Patient was loaded with aspirin/plavix, started on heparin infusion, cardiology was consulted and patient was admitted to medicine for further management. He underwent a PCI, and a stent was placed, however, he was transferred to [facility] for further management and completion of high risk PCI. He arrived in stable condition, denying chest pain. GENERAL ASSESSMENT: Assessment and Plan Neuro #acute pain #ETOH dependence #anxiety -CIWA protocol -folic/thiamine -prn pain meds -PT/OT after PCI CV #NSTEMI #CAD #HTN #HLD #Hx NM w 2 stents 2005 -s/p cath at [facility] N Yeudwdi-pmydt-ktdseg disease -imdur -asa, plavix, statin, metoprolol -trend EKG, troponin -denies chest pain -PCI this afternoon -Dr. Lynch following Resp #nicotine dependence -supplemental oxygen for SpO2 >92% -nicotine patch dose increased per patient insistence -smoking cessation counseling -IS -CXR GI #nutrition -cardiac diet, NPO for procedure -bowel regimen Renal #no acute issues -strict I/O -trend renal function -trend electrolytes and replace as necessary Heme/ID #no stigmata of infection or bleeding noted -trend CBC -trend fever curve Endo #euglycemia -FSBG -SSI prn Prophylaxis VTE: SCD GI: PPI Full code per patient chart Medications reviewed with the clinical pharmacist Plan of care and patient rounded on with the ICU Rn Orthopaedic, Dr. Powell -- SUBJECTIVE -- -REVIEW OF SYSTEMS- GENERAL: Negative for fever, malaise, fatigue. EYES: Negative for blurry vision. No diplopia. +burning from OSH eye drops EARS/NOSE/THROAT: Negative for sore throat. No otalgia. No rhinorrhea. RESPIRATORY: Negative for dyspnea or wheeze. + non productive cough. CARDIOVASCULAR: Negative for chest pain or palpitations. No extremity swelling. GASTROINTESTINAL: Negative for abdominal pain or nausea. No emesis. No diarrhea. GENITOURINARY: Negative for dysuria, frequency, or urgency. No gross hematuria. MUSCULOSKELETAL: Negative for joint stiffness, pain, or arthralgias. SKIN: Negative for rashes. No pruritus. NEUROLOGICAL: Negative for headache. No vertigo. Denies paresthesias. PSYCHIATRIC: Negative for specific complaints. ENDOCRINE: Negative for cold intolerance, heat intolerance, polyphagia, polydipsia, polyuria, weight change, fatigue. -- OBJECTIVE -- VITALS (06/03 08:17 - 06/04 08:17): Temperature F: 98.2 (97.6 - 98.4) Temperature source: Oral Pulse Rate 80 (71 - 85) Respiratory rate: 22 (11 - 24) BP: 116/66 (111/55 - 173/89) Blood pressure source: Monitor I/Os (06/03 07:00 - 06/04 07:00): Net 930.10 Intake 930.10 Output 0 -EXAM- GENERAL: Well developed, well nourished, in no apparent distress. HEAD: Normocephalic, atraumatic. EYES: PERRL, EOM intact, red conjunctiva and sclera clear, without nystagmus, lids normal. EARS: grossly normal hearing. NOSE: No deformity, no discharge, no inflammation, no lesions. MOUTH: Oropharynx without deformities or lesions, normal mucosa. Poor dentition NECK: No masses, no thyromegaly, no abnormal cervical nodes, trachea midline. No JVD CHEST: Grossly normal appearance. LUNGS: Clear bilaterally with normal respiratory effort. HEART: Regular rate and rhythm, normal S1, S2 ABDOMEN: Soft, non-tender, no organomegaly, no masses noted. MUSCULOSKELETAL: No deformity, no scoliosis noted of thoracic or lumbar spine, joint ROM grossly normal, normal gait and station. EXTREMITIES: No clubbing, no cyanosis, no edema. NEUROLOGICAL: No focal deficits, cranial nerves II-XII grossly intact, normal sensation, normal reflexes, normal coordination, normal muscle strength, normal tone. PULSES: Pulses normal in all extremities. SKIN: Intact without significant lesions, or rashes. PSYCHIATRIC: Alert and oriented to time, person, place. Normal mood and affect, intact judgment and insight. Anxious at times -- DATA -- MEDICATIONS LORazepam 2 MG PO Q2H PRN POTASSIUM CHLORIDE IN WATER 10 MEQ IV ASDIR (PRN) SODIUM PHOSPHATE with/in SODIUM CHLORIDE 0.9% 45 MM IV ASDIR (PRN) MAGNESIUM SULFATE 2 GM IV ASDIR (PRN) POTASSIUM CHLORIDE 20 MEQ PO ASDIR PRN PETROLATUM,WHITE 1 APPLIC EACH EYE Q8H SODIUM PHOSPHATE with/in SODIUM CHLORIDE 0.9% 30 MM IV ASDIR (PRN) ISOSORBIDE MONONITRATE 30 MG PO DAILY morphine SULFATE 2 MG IV Q4H PRN THIAMINE HCL 100 MG IV DAILY ASPIRIN 81 MG PO DAILY polyethylene glycoL 3350 1 PKT PO DAILY flumazeniL 0.2 MG IV ASDIR PRN SODIUM PHOSPHATE with/in SODIUM CHLORIDE 0.9% 15 MM IV ASDIR (PRN) clopidogreL 75 MG PO DAILY GLUCAGON 1 MG IM ASDIR PRN ATORVASTATIN CALCIUM 40 MG PO BEDTIME CARBOXYMETHYLCELLULOSE SODIUM 2 DROP EACH EYE Q1H PRN NITROGLYCERIN 0.4 MG SL Q5M PRN bisacodyL 10 MG RECTAL DAILY PRN FAMOTIDINE 20 MG PO Q12HR FOLIC ACID 1 MG PO DAILY ONDANSETRON HCL/PF 4 MG IV Q4H PRN MULTIVITAMIN WITH FOLIC ACID 400 MCG PO DAILY ACETAMINOPHEN 650 MG PO Q6H PRN MAGNESIUM SULFATE 4 G IV ASDIR (PRN) MUPIROCIN 1 APPLIC NASAL BID NICOTINE 21 MG TOPICAL DAILY DOCUSATE SODIUM 200 MG PO DAILY LORazepam 4 MG PO Q2H PRN METOPROLOL TARTRATE 50 MG PO Q8HR chlordiazePOXIDE HCl 25 MG PO BID LABS MAG (06/04/22 00:09) MAGNESIUM 1.8 FIB (06/04/22 00:09) FIBRINOGEN 578 H PTT (06/04/22 00:09) THROMBOPLASTIN TIME PARTIAL 30.9 COMPREHENSIVE METABOLIC PANEL (06/04/22 00:09) SODIUM 137 POTASSIUM 4.2 CHLORIDE 105 CARBON DIOXIDE 27 GLUCOSE 100 BLOOD UREA NITROGEN 7 L GLOMERULAR FILTRATION RATE >=60 max estimate CREATININE 0.70 TOTAL PROTEIN 6.4 ALBUMIN 4.2 CALCIUM 9.0 BILIRUBIN TOTAL 0.3 SGOT/AST 36 H SGPT/ALT 27 ALKALINE PHOSPHATASE 102.0 CBC W/MANUAL DIFF (06/04/22 00:09) WHITE BLOOD CELL 5.8 RED BLOOD CELL 2.98 L HEMOGLOBIN 10.8L L HEMATOCRIT 31.4L L MEAN CELL VOLUME 105.4 H MEAN CELL HGB 36.2 H MEAN CELL HGB CONCENTRATION 34.4 RED CELL DISTRIBUTION WIDTH 13.2 PLATELET COUNT 251 MEAN PLATELET VOLUME 8.8 L TOTAL CELLS COUNTED 100 SEGMENTED NEUTROPHILS 62 LYMPHOCYTE 14 L ATYPICAL LYMPH 15 H MONOCYTE 8 EOSINOPHIL 1 HYPOCHROMIA 2+ H PLATELET ESTIMATE ADEQUATE PLATELET MORPHOLOGY NORMAL PHOS (06/04/22 00:09) PHOSPHOROUS 3.8 D PROTHROMBIN TIME (06/04/22 00:09) PROTHROMBIN TIME PATIENT 10.9 INTERNATIONAL NORMAL RATIO 0.92 BNP (06/04/22 00:09) B-TYPE NATRIURETIC PEPTIDE 75 BASIC METABOLIC PANEL (06/03/22 11:22) SODIUM 134L L POTASSIUM 4.2 CHLORIDE 103 CARBON DIOXIDE 27 GLUCOSE 95 BLOOD UREA NITROGEN 7L L GLOMERULAR FILTRATION RATE >=60 max estimate CREATININE 0.70 CALCIUM 8.5 L MAG (06/03/22 11:22) MAGNESIUM 2.0 PHOS (06/03/22 11:22) PHOSPHOROUS 2.3 L Signed in PatientKeeper by Shonna Laughlin APRN on 06/04/22 at 15:58 Cosigned by ROCHELLE POWELL MD on 06/04/22 at 17:45 at 1745 at 1745 ATTENTION *EDITS and/or ADDENDA must be made in Patient Keeper for this note. * * Edits and ammendments created in [employer] are not visible * * in Patient Keeper or the legal medical record ([facility]). * RPT #: [id number] END OF REPORT [facility] 2022-06-04 07:30:00 [facility] ([facility]) Cardiology Progress Notes REPORT #: [id number] REPORT STATUS: Signed DATE: 06/04/22 TIME: 729 PATIENT: KOTA MONTES UNIT #: [id number] ROOM #: P.0216 BED: 1 : 61 AGE: 61 SEX: M ATTEND: Annabelle Zazueta MD ADM AUTHOR: Camron Patel ATTENTION *EDITS and/or ADDENDA must be made in Patient Keeper for this note. * * Edits and ammendments created in [employer] are not visible * * in Patient Keeper or the legal medical record ([facility]). * -- ASSESSMENT AND PLAN -- PROBLEMS: 1: NSTEMI (non-ST elevated myocardial infarction) A/P: The patient is a 61-year-old gentleman with a PMHx of alcohol/tobacco abuse, hypertension, hyperlipidemia, and NM in 2005 with PCI X2, positive family history of coronary artery disease, who presented to [facility] on 05/27/2022 with chest discomfort that had been going on for the past 3 months. He ruled in for an NSTEMI with a peak high-sensitivity troponin of 2044. His ECHO demonstrated a LVEF of 55-60% with mild MR. He had a LHC on 05/28/2022 that demonstrated patent left main, patent LAD, ostial LCx 90%, OM1 w/ mid 70%, and heavily calcified RCA with multiple stents and 60-70% in-stent restenosis (right dominant). Dr. Knox attempted PCI but due to calcified vessel was unsuccessful and now patient is transferred here for high risk intervention. - Currently chest pain free - On aspirin, clopidogrel, and atorvastatin 40mg daily - On metoprolol tartrate 50mg Q8H and Imdur 30mg daily - On Thiamine and Folate - high risk for withdrawals. On Librium. - Smoking cessation but patient is stating he is not going to quit. - Plan for high-risk PCI of LCx and RCA today, Saturday (06/04). NPO since midnight. -- SUBJECTIVE -- CHIEF COMPLAINT: Chest pain PATIENT NARRATIVE: Out of bed and in chair. He was upset and wanted to leave AMA this morning. We have discussed the risks of not having the high-risk PCI. Family arrived at bedside ( and daughter) and he consented to proceed with high-risk PCI. NPO after midnight. -REVIEW OF SYSTEMS- GENERAL: Negative for fever, malaise, fatigue. EYES: Negative for blurry vision. No diplopia. +burning from OSH eye drops EARS/NOSE/THROAT: Negative for sore throat. No otalgia. No rhinorrhea. RESPIRATORY: Negative for dyspnea or wheeze. + non productive cough. CARDIOVASCULAR: Negative for chest pain or palpitations. No extremity swelling. GASTROINTESTINAL: Negative for abdominal pain or nausea. No emesis. No diarrhea. GENITOURINARY: Negative for dysuria, frequency, or urgency. No gross hematuria. MUSCULOSKELETAL: Negative for joint stiffness, pain, or arthralgias. SKIN: Negative for rashes. No pruritus. NEUROLOGICAL: Negative for headache. No vertigo. Denies paresthesias. PSYCHIATRIC: Negative for specific complaints. ENDOCRINE: Negative for cold intolerance, heat intolerance, polyphagia, polydipsia, polyuria, weight change, fatigue. -- OBJECTIVE -- VITALS (06/03 09:51 - 06/04 09:51): Temperature F: 98.2 (97.6 - 98.4) Temperature source: Oral Pulse Rate 80 (71 - 85) Respiratory rate: 22 (11 - 24) BP: 116/66 (111/55 - 173/89) Blood pressure source: Monitor I/Os (06/03 07:00 - 06/04 07:00): Net 930.10 Intake 930.10 Output 0 -EXAM- GENERAL: Well developed, well nourished, in no apparent distress. HEAD: Normocephalic, atraumatic. EYES: PERRL, EOM intact, red conjunctiva and sclera clear, without nystagmus, lids normal. EARS: grossly normal hearing. NOSE: No deformity, no discharge, no inflammation, no lesions. MOUTH: Oropharynx without deformities or lesions, normal mucosa. Poor dentition NECK: No masses, no thyromegaly, no abnormal cervical nodes, trachea midline. No JVD CHEST: Grossly normal appearance. LUNGS: Clear bilaterally with normal respiratory effort. HEART: Regular rate and rhythm, normal S1, S2 ABDOMEN: Soft, non-tender, no organomegaly, no masses noted. MUSCULOSKELETAL: No deformity, no scoliosis noted of thoracic or lumbar spine, joint ROM grossly normal, normal gait and station. EXTREMITIES: No clubbing, no cyanosis, no edema. NEUROLOGICAL: No focal deficits, cranial nerves II-XII grossly intact, normal sensation, normal reflexes, normal coordination, normal muscle strength, normal tone. PULSES: Pulses normal in all extremities. SKIN: Intact without significant lesions, or rashes. PSYCHIATRIC: Alert and oriented to time, person, place. Normal mood and affect, intact judgment and insight. Anxious at times -- DATA -- MEDICATIONS LORazepam 2 MG PO Q2H PRN POTASSIUM CHLORIDE IN WATER 10 MEQ IV ASDIR (PRN) SODIUM PHOSPHATE with/in SODIUM CHLORIDE 0.9% 45 MM IV ASDIR (PRN) MAGNESIUM SULFATE 2 GM IV ASDIR (PRN) POTASSIUM CHLORIDE 20 MEQ PO ASDIR PRN PETROLATUM,WHITE 1 APPLIC EACH EYE Q8H SODIUM PHOSPHATE with/in SODIUM CHLORIDE 0.9% 30 MM IV ASDIR (PRN) ISOSORBIDE MONONITRATE 30 MG PO DAILY morphine SULFATE 2 MG IV Q4H PRN THIAMINE HCL 100 MG IV DAILY ASPIRIN 81 MG PO DAILY polyethylene glycoL 3350 1 PKT PO DAILY flumazeniL 0.2 MG IV ASDIR PRN SODIUM PHOSPHATE with/in SODIUM CHLORIDE 0.9% 15 MM IV ASDIR (PRN) clopidogreL 75 MG PO DAILY GLUCAGON 1 MG IM ASDIR PRN ATORVASTATIN CALCIUM 40 MG PO BEDTIME CARBOXYMETHYLCELLULOSE SODIUM 2 DROP EACH EYE Q1H PRN NITROGLYCERIN 0.4 MG SL Q5M PRN bisacodyL 10 MG RECTAL DAILY PRN FAMOTIDINE 20 MG PO Q12HR FOLIC ACID 1 MG PO DAILY ONDANSETRON HCL/PF 4 MG IV Q4H PRN MULTIVITAMIN WITH FOLIC ACID 400 MCG PO DAILY ACETAMINOPHEN 650 MG PO Q6H PRN MAGNESIUM SULFATE 4 G IV ASDIR (PRN) MUPIROCIN 1 APPLIC NASAL BID NICOTINE 21 MG TOPICAL DAILY DOCUSATE SODIUM 200 MG PO DAILY LORazepam 4 MG PO Q2H PRN METOPROLOL TARTRATE 50 MG PO Q8HR chlordiazePOXIDE HCl 25 MG PO BID LABS MAG (06/04/22 00:09) MAGNESIUM 1.8 FIB (06/04/22 00:09) FIBRINOGEN 578 H PTT (06/04/22 00:09) THROMBOPLASTIN TIME PARTIAL 30.9 COMPREHENSIVE METABOLIC PANEL (06/04/22 00:09) SODIUM 137 POTASSIUM 4.2 CHLORIDE 105 CARBON DIOXIDE 27 GLUCOSE 100 BLOOD UREA NITROGEN 7 L GLOMERULAR FILTRATION RATE >=60 max estimate CREATININE 0.70 TOTAL PROTEIN 6.4 ALBUMIN 4.2 CALCIUM 9.0 BILIRUBIN TOTAL 0.3 SGOT/AST 36 H SGPT/ALT 27 ALKALINE PHOSPHATASE 102.0 CBC W/MANUAL DIFF (06/04/22 00:09) WHITE BLOOD CELL 5.8 RED BLOOD CELL 2.98 L HEMOGLOBIN 10.8L L HEMATOCRIT 31.4L L MEAN CELL VOLUME 105.4 H MEAN CELL HGB 36.2 H MEAN CELL HGB CONCENTRATION 34.4 RED CELL DISTRIBUTION WIDTH 13.2 PLATELET COUNT 251 MEAN PLATELET VOLUME 8.8 L TOTAL CELLS COUNTED 100 SEGMENTED NEUTROPHILS 62 LYMPHOCYTE 14 L ATYPICAL LYMPH 15 H MONOCYTE 8 EOSINOPHIL 1 HYPOCHROMIA 2+ H PLATELET ESTIMATE ADEQUATE PLATELET MORPHOLOGY NORMAL PHOS (06/04/22 00:09) PHOSPHOROUS 3.8 D PROTHROMBIN TIME (06/04/22 00:09) PROTHROMBIN TIME PATIENT 10.9 INTERNATIONAL NORMAL RATIO 0.92 BNP (04/03/23 00:09) B-TYPE NATRIURETIC PEPTIDE 75 BASIC METABOLIC PANEL (06/03/22 11:22) SODIUM 134L L POTASSIUM 4.2 CHLORIDE 103 CARBON DIOXIDE 27 GLUCOSE 95 BLOOD UREA NITROGEN 7L L GLOMERULAR FILTRATION RATE >=60 max estimate CREATININE 0.70 CALCIUM 8.5 L MAG (06/03/22 11:22) MAGNESIUM 2.0 PHOS (06/03/22 11:22) PHOSPHOROUS 2.3 L -- ATTESTATION -- CARE ACTIVITIES / CARE COORDINATION: - I have reviewed the history and repeated the carias elements - I have seen and examined this patient - I have reviewed the progress in the clinical course since the last examination - I have discussed the patient's condition with other members of the care team ADDITIONAL DETAIL: Plan of care discussed with Dr. Kurtis Lynch Signed in PatientKeeper by CAMRON PATEL on 06/04/22 at 22:58 Cosigned by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 75 MG PO DAILY MUPIROCIN 1 APPLIC NASAL BID POLYVINYL ALCOHOL 1.4% 1 DROP EACH EYE QID PRN LORazepam 2 MG IV Q2H PRN NICOTINE 14 MG TOPICAL DAILY METOPROLOL TARTRATE 5 MG IV Q6H PRN FAMOTIDINE 20 MG PO DAILY NITROGLYCERIN 0.4 MG SL Q5M PRN LABS MAG (06/02/22 04:00) MAGNESIUM 1.9 COMPREHENSIVE METABOLIC PANEL (06/02/22 04:00) SODIUM 136 POTASSIUM 3.2L L CHLORIDE 102 CARBON DIOXIDE 28 ANION GAP 9.2 GLUCOSE 92 BLOOD UREA NITROGEN 6 GLOMERULAR FILTRATION RATE >=60 max estimate CREATININE 0.7 BUN/CREATININE RATIO 8.6 L TOTAL PROTEIN 6.4 ALBUMIN 3.0 L CALCIUM 9.4 BILIRUBIN TOTAL 0.5 SGOT/AST 29 SGPT/ALT 28 ALKALINE PHOSPHATASE 95 CBC W/AUTO DIFF (06/02/22 04:00) WHITE BLOOD CELL 5.9 RED BLOOD CELL 2.92 L HEMOGLOBIN 10.8L L HEMATOCRIT 31.2L L MEAN CELL VOLUME 107 H MEAN CELL HGB 37.0 H MEAN CELL HGB CONCENTRATION 34.6 RED CELL DISTRIBUTION WIDTH 13.2 PLATELET COUNT 220 MEAN PLATELET VOLUME 9.3 NEUTROPHIL % 68.2 IMMATURE GRANULOCYTE % 0.8 LYMPHOCYTE % 14.4 MONOCYTE % 14.6 H EOSINOPHIL % 1.5 BASOPHIL % 0.5 NUCLEATED RBC % 0.0 NEUTROPHIL # 4.01 IMMATURE GRANULOCYTE # 0.050 LYMPHOCYTE # 0.85 L MONOCYTE # 0.86 H EOSINOPHIL # 0.09 BASOPHIL # 0.03 NUCLEATED RBC # 0.000 Signed in PatientKeeper by Leonie Bernard APRN on 06/02/22 at 11:01 Cosigned by ROSARIO TORRES MD on 06/02/22 at 18:54 at 1854 at 1854 ATTENTION *EDITS and/or ADDENDA must be made in Patient Keeper for this note. * * Edits and ammendments created in [employer] are not visible * * in Patient Keeper or the legal medical record ([facility]). * RPT #: [id number] END OF REPORT [facility] 2022-06-02 10:12:00 [facility] ([facility]) Med Order Sheet REPORT #: [id number] REPORT STATUS: Signed DATE: 06/02/22 TIME: 1012 PATIENT: KOTA MONTES UNIT #: [id number] ROOM #: [id number] BED: A : 61 AGE: 61 SEX: M ATTEND: Aydee Briceno MD ADM AUTHOR: Rob Reynolds MD ATTENTION *EDITS and/or ADDENDA must be made in Patient Keeper for this note. * * Edits and ammendments created in [employer] are not visible * * in Patient Keeper or the legal medical record ([facility]). * Discharge Medication Reconciliation DISCHARGE MEDICATION LIST Aspirin Chewable Tab (Aspirin Chewable Tab) Dose: 81 MG PO DAILY Metoprolol Tartrate Tab (Lopressor Tab) Dose: 50MG PO Q8HR Atorvastatin Tab (Lipitor Tab) Dose: 40MG PO BEDTIME Acetaminophen Tab (Tylenol Tab) Dose: 650MG PO Q4H PRN pain 1-3/temp > 100.5/headache Calcium Carbonate Chew Tab (Tums Tab) Dose: 500MG PO Q4H PRN heartburn chlordiazePOXIDE Cap (Librium Cap) Dose: 25MG PO BID Clopidogrel Tab (Plavix Tab) Dose: 75MG PO DAILY diphenhydrAMINE Cap (Benadryl Cap) Dose: 25MG PO Q6H PRN itching Enoxaparin 40mg/0.4mL Inj (Lovenox 40mg/0.4mL Inj) Dose: 40MG SUBQ DAILY Famotidine Tab (Pepcid Tab) Dose: 20MG PO DAILY New: hydrALAZINE Inj (Apresoline Inj) Dose: 10MG IV Q6H PRN sbp greater than 180 Lactulose Oral Liquid (Enulose Oral Liquid) Dose: 30ML PO BID LORazepam Tab (Ativan Tab) Dose: 2MG PO Q2H PRN ciwa-ar score of 8-15 New: LORazepam Inj (Ativan Inj) Dose: 2MG IV Q2H PRN see special instructions Magnesium Oxide 400mg Tab (Mag Ox 400mg Tab) Dose: 400MG PO BID New: Metoclopramide Inj (Reglan Inj) Dose: 5MG IV Q6H Mupirocin Ointment 2% (Bactroban Ointment 2%) Dose: 1APPLIC NASAL BID Nicotine 14mg/24hr Patch (Nicoderm CQ 14mg/24hr Patch) Dose: 14MG TOPICAL DAILY Nitroglycerin SL Tab (Nitrostat SL Tab) Dose: 0.4MG SL Q5M PRN chest pain New: Ondansetron Inj (Zofran Inj) Dose: 4MG IV Q6H PRN nausea and vomiting Polyethylene Glycol Powder (Miralax Powder) Dose: 1PKT PO DAILY PRN constipation polyvinyl alcohol 1.4 % eye drops Dose: 1 DROP EACH EYE QID PRN dry eyes Sodium Chloride 0.9% (NS) Dose: 1000ML IV ASDIR STOPPED HOME MEDICATIONS Dc'd: Losartan/HCTZ 100/25 Tab (Hyzaar 100-25 MG Tab) 1 TAB PO DAILY at 1012 ATTENTION *EDITS and/or ADDENDA must be made in Patient Keeper for this note. * * Edits and ammendments created in [facility] are not visible * * in Patient Keeper or the legal medical record (HPF). * RPT #: [id number] END OF REPORT [facility] 2022-06-02 10:01:00 [facility] ([facility]) Nephrology Progress Note REPORT #: [id number] REPORT STATUS: Signed DATE: 06/02/22 TIME: 1001 PATIENT: KOTA MONTES UNIT #: [id number] ROOM #: [id number] BED: A : 61 AGE: 61 SEX: M ATTEND: Aydee Briceno MD ADM AUTHOR: Kartik Ayala MD ATTENTION *EDITS and/or ADDENDA must be made in Patient Keeper for this note. * * Edits and ammendments created in [employer] are not visible * * in Patient Keeper or the legal medical record (HPF). * -- ASSESSMENT AND PLAN -- GENERAL ASSESSMENT: Hyponatremia Hypotonic; multifactorial - improved with IVF hydration suggesting hypovolemic element, but also on Losartan/HCTZ and NSAID use, both which can cause an excess ADH state. Prostaglandins inhibit the water reabsorption effect of ADH, whose effects are decreased with NSAID use. Hypokalemia - resolved Hypomagnesemia Hypophosphatemia NSTEMI; CAD HTN HLD Alcohol abuse/withdrawal Plan Pending transfer downto for high risk PCI Continue on mag oxide 400 mg bid KCL 40 mEq PO once today Allow PO intake/hydration; IVF if clinically indicated D/c HCTZ and NSAIDs at this time No significant fluid restriction at this time; drink to thirst only Will continue to monitor patient's vitals, electrolyte/acid-base status, volume and renal clearance with you -- SUBJECTIVE -- PATIENT NARRATIVE: Patient seen and examined at bedside; remains in ICU No acute distress BP noted UOP maintained Afebrile Hypokalemia noted Anemia noted; persistent -REVIEW OF SYSTEMS- COMMENT: 14 point ROS was reviewed and negative except as stated above -- OBJECTIVE -- VITALS (06/01 10:01 - 06/02 10:01): Temperature F: 97.8 (97.8 - 98.6) Temperature source: Oral Pulse Rate 80 (80 - 111) Respiratory rate: 20 BP: 124/90 (124/73 - 141/90) Blood pressure source: Non-invasive monitor -EXAM- OTHER: General: NAD, resting comfortably HEENT: NCAT Eyes: no icterus. PERRLA Mouth: MMM. No lesions appreciated Neck: supple Lungs: bilateral breath sounds auscultated; CTA-B Heart: no pitting edema; 2+ capillary refill, regular rate and rhythm; normal S1/S2 Abdomen: soft, NT/ND, +BS; no rebound or guarding. Skin: no rashes; no jaundice Neuro: no focal neuro deficits appreciated MSK: appropriate muscle bulk -- DATA -- MEDICATIONS ONDANSETRON HCL/PF 4 MG IV Q6H PRN polyethylene glycoL 3350 1 PKT PO DAILY PRN LORazepam 2 MG PO Q2H PRN MAGNESIUM OXIDE 400 MG PO BID chlordiazePOXIDE HCl 25 MG PO BID ACETAMINOPHEN 650 MG PO Q4H PRN METOCLOPRAMIDE HCL 5 MG IV Q6H METOPROLOL TARTRATE 50 MG PO Q8HR LACTULOSE 30 ML PO BID SODIUM CHLORIDE 0.9% 1000 ML IV ASDIR hydrALAZINE HCL 10 MG IV Q6H PRN diphenhydrAMINE HCL 25 MG PO Q6H PRN ENOXAPARIN SODIUM 40 MG SUBQ DAILY ATORVASTATIN CALCIUM 40 MG PO BEDTIME CALCIUM CARBONATE 500 MG PO Q4H PRN ASPIRIN 81 MG PO DAILY clopidogreL 75 MG PO DAILY MUPIROCIN 1 APPLIC NASAL BID POLYVINYL ALCOHOL 1.4% 1 DROP EACH EYE QID PRN LORazepam 2 MG IV Q2H PRN NICOTINE 14 MG TOPICAL DAILY METOPROLOL TARTRATE 5 MG IV Q6H PRN FAMOTIDINE 20 MG PO DAILY NITROGLYCERIN 0.4 MG SL Q5M PRN LABS MAG (06/02/22 04:00) MAGNESIUM 1.9 COMPREHENSIVE METABOLIC PANEL (06/02/22 04:00) SODIUM 136 POTASSIUM 3.2L L CHLORIDE 102 CARBON DIOXIDE 28 ANION GAP 9.2 GLUCOSE 92 BLOOD UREA NITROGEN 6 GLOMERULAR FILTRATION RATE >=60 max estimate CREATININE 0.7 BUN/CREATININE RATIO 8.6 L TOTAL PROTEIN 6.4 ALBUMIN 3.0 L CALCIUM 9.4 BILIRUBIN TOTAL 0.5 SGOT/AST 29 SGPT/ALT 28 ALKALINE PHOSPHATASE 95 CBC W/AUTO DIFF (06/02/22 04:00) WHITE BLOOD CELL 5.9 RED BLOOD CELL 2.92 L HEMOGLOBIN 10.8L L HEMATOCRIT 31.2L L MEAN CELL VOLUME 107 H MEAN CELL HGB 37.0 H MEAN CELL HGB CONCENTRATION 34.6 RED CELL DISTRIBUTION WIDTH 13.2 PLATELET COUNT 220 MEAN PLATELET VOLUME 9.3 NEUTROPHIL % 68.2 IMMATURE GRANULOCYTE % 0.8 LYMPHOCYTE % 14.4 MONOCYTE % 14.6 H EOSINOPHIL % 1.5 BASOPHIL % 0.5 NUCLEATED RBC % 0.0 NEUTROPHIL # 4.01 IMMATURE GRANULOCYTE # 0.050 LYMPHOCYTE # 0.85 L MONOCYTE # 0.86 H EOSINOPHIL # 0.09 BASOPHIL # 0.03 NUCLEATED RBC # 0.000 Signed in PatientKeeper by Kartik Ayala MD on 06/02/22 at 10:03 at 1003 ATTENTION *EDITS and/or ADDENDA must be made in Patient Keeper for this note. * * Edits and ammendments created in [facility] are not visible * * in Patient Keeper or the legal medical record (HPF). * [facility] #: [id number] END OF REPORT [facility] 2022-06-01 17:55:00 [facility] ([facility]) Nephrology Progress Note REPORT #: [id number] REPORT STATUS: Signed DATE: 06/01/22 TIME: 1755 PATIENT: KOTA MONTES UNIT #: [id number] ROOM #: [id number].IC08 BED: A : 61 AGE: 61 SEX: M ATTEND: Aydee Briceno MD ADM AUTHOR: Kartik Ayala MD ATTENTION *EDITS and/or ADDENDA must be made in Patient Keeper for this note. * * Edits and ammendments created in [employer] are not visible * * in Patient Keeper or the legal medical record (HPF). * -- ASSESSMENT AND PLAN -- GENERAL ASSESSMENT: Hyponatremia Hypotonic; multifactorial - improved with IVF hydration suggesting hypovolemic element, but also on Losartan/HCTZ and NSAID use, both which can cause an excess ADH state. Prostaglandins inhibit the water reabsorption effect of ADH, whose effects are decreased with NSAID use. Hypokalemia - resolved Hypomagnesemia Hypophosphatemia NSTEMI; CAD HTN HLD Alcohol abuse/withdrawal Plan Pending [place] for high risk PCI Continue on mag oxide 400 mg bid Allow PO intake/hydration; IVF if clinically indicated D/c HCTZ and NSAIDs at this time No significant fluid restriction at this time; drink to thirst only Will continue to monitor patient's vitals, electrolyte/acid-base status, volume and renal clearance with you -- SUBJECTIVE -- PATIENT NARRATIVE: Patient seen and examined at bedside in ICU No acute distress BP noted UOP maintained Afebrile -REVIEW OF SYSTEMS- COMMENT: 14 point ROS was reviewed and negative except as stated above -- OBJECTIVE -- VITALS (05/31 17:55 - 06/01 17:55): Temperature F: 98.4 (98.1 - 98.6) Temperature source: Oral Pulse Rate 91 (87 - 142) Respiratory rate: 17 (12 - 22) BP: 136/73 (107/55 - 166/91) Blood pressure source: Monitor I/Os (05/31 07:00 - 06/01 07:00): Net -350 Output 350 -EXAM- OTHER: General: NAD, resting comfortably HEENT: NCAT Eyes: no icterus. PERRLA Mouth: MMM. No lesions appreciated Neck: supple Lungs: bilateral breath sounds auscultated; CTA-B Heart: no pitting edema; 2+ capillary refill, regular rate and rhythm; normal S1/S2 Abdomen: soft, NT/ND, +BS; no rebound or guarding. Skin: no rashes; no jaundice Neuro: no focal neuro deficits appreciated MSK: appropriate muscle bulk -- DATA -- MEDICATIONS ONDANSETRON HCL/PF 4 MG IV Q6H PRN polyethylene glycoL 3350 1 PKT PO DAILY PRN LORazepam 2 MG PO Q2H PRN MAGNESIUM OXIDE 400 MG PO BID chlordiazePOXIDE HCl 25 MG PO BID ACETAMINOPHEN 650 MG PO Q4H PRN METOCLOPRAMIDE HCL 5 MG IV Q6H METOPROLOL TARTRATE 50 MG PO Q8HR LACTULOSE 30 ML PO BID SODIUM CHLORIDE 0.9% 1000 ML IV ASDIR hydrALAZINE HCL 10 MG IV Q6H PRN diphenhydrAMINE HCL 25 MG PO Q6H PRN ENOXAPARIN SODIUM 40 MG SUBQ DAILY ATORVASTATIN CALCIUM 40 MG PO BEDTIME CALCIUM CARBONATE 500 MG PO Q4H PRN ASPIRIN 81 MG PO DAILY clopidogreL 75 MG PO DAILY MUPIROCIN 1 APPLIC NASAL BID POLYVINYL ALCOHOL 1.4% 1 DROP EACH EYE QID PRN LORazepam 2 MG IV Q2H PRN NICOTINE 14 MG TOPICAL DAILY METOPROLOL TARTRATE 5 MG IV Q6H PRN FAMOTIDINE 20 MG PO DAILY NITROGLYCERIN 0.4 MG SL Q5M PRN LABS GLU BED (06/01/22 07:21) GLUBED 63 L CBC W/AUTO DIFF (06/01/22 04:00) WHITE BLOOD CELL 8.1 RED BLOOD CELL 3.31 L HEMOGLOBIN 12.4L L HEMATOCRIT 34.8L L MEAN CELL VOLUME 105 H MEAN CELL HGB 37.5 H MEAN CELL HGB CONCENTRATION 35.6 RED CELL DISTRIBUTION WIDTH 13.4 PLATELET COUNT 208 MEAN PLATELET VOLUME 9.2 NEUTROPHIL % 81.8 H IMMATURE GRANULOCYTE % 0.6 LYMPHOCYTE % 5.9 L MONOCYTE % 11.3 EOSINOPHIL % 0.2 BASOPHIL % 0.2 NUCLEATED RBC % 0.0 NEUTROPHIL # 6.64 IMMATURE GRANULOCYTE # 0.050 LYMPHOCYTE # 0.48 L MONOCYTE # 0.92 H EOSINOPHIL # 0.02 BASOPHIL # 0.02 NUCLEATED RBC # 0.000 COMPREHENSIVE METABOLIC PANEL (06/01/22 04:00) SODIUM 134L L POTASSIUM 3.5 CHLORIDE 99 CARBON DIOXIDE 28 ANION GAP 10.5 GLUCOSE 109H H BLOOD UREA NITROGEN 5 GLOMERULAR FILTRATION RATE >=60 max estimate CREATININE 0.7 BUN/CREATININE RATIO 7.1 L TOTAL PROTEIN 7.1 ALBUMIN 3.2 L CALCIUM 9.8 BILIRUBIN TOTAL 0.8 SGOT/AST 32 SGPT/ALT 34 ALKALINE PHOSPHATASE 120 H Signed in PatientKeeper by Kartik Ayala MD on 06/01/22 at 17:57 at 1757 ATTENTION *EDITS and/or ADDENDA must be made in Patient Keeper for this note. * * Edits and ammendments created in [employer] are not visible * * in Patient Keeper or the legal medical record (HPF). * RPT #: [id number] END OF REPORT [facility] 2022-06-01 14:39:00 [facility] ([facility]) Progress Note REPORT #: [id number] REPORT STATUS: Signed DATE: 06/01/22 TIME: 1439 PATIENT: KOTA MONTES UNIT #: [id number] ROOM #: [id number].IC08 BED: A : 61 AGE: 61 SEX: M ATTEND: Aydee Briceno MD ADM AUTHOR: Mariam Alex MD ATTENTION *EDITS and/or ADDENDA must be made in Patient Keeper for this note. * * Edits and ammendments created in [employer] are not visible * * in Patient Keeper or the legal medical record (HPF). * -- ASSESSMENT AND PLAN -- PROBLEMS: 1: Abdominal distention A/P: -Reviewed CT scan with radiology and agree with ileus - Given patient's clinical improvement continue to monitor - If patient's condition were to decompensate recommend immediate transfer for higher level of care given patient is a high risk for heart attack during emergent surgery - No immediate surgical intervention - We will continue to follow -- SUBJECTIVE -- CHIEF COMPLAINT: Abdominal pain HPI: Patient's abdominal pain has greatly improved today. Patient complains of diffuse, mild soreness. Pain improves with rest and worsens with movement. Patient has been passing flatus and had a bowel movement. Abdominal distention is greatly improved. -REVIEW OF SYSTEMS- GENERAL: Negative for fever, malaise, fatigue. EYES: Negative for blurry vision. No diplopia. RESPIRATORY: Negative for dyspnea or wheeze. No cough. CARDIOVASCULAR: Negative for chest pain or palpitations. No extremity swelling. GASTROINTESTINAL: Refer to HPI GENITOURINARY: Negative for dysuria, frequency, or urgency. No gross hematuria. MUSCULOSKELETAL: Negative for joint stiffness, pain, or arthralgias. SKIN: Negative for rashes. No pruritus. NEUROLOGICAL: Negative for headache. No vertigo. Denies paresthesias. PSYCHIATRIC: Negative for specific complaints. -- OBJECTIVE -- VITALS (05/31 14:39 - 06/01 14:39): Temperature F: 98.4 (98.1 - 98.6) Temperature C: 36.9 Temperature source: Oral Pulse Rate 92 (92 - 142) Respiratory rate: 17 (12 - 22) BP: 141/82 (107/55 - 195/95) Blood pressure source: Monitor I/Os (05/31 07:00 - 06/01 07:00): Net -350 Output 350 -EXAM- GENERAL: Well developed, well nourished, in no apparent distress. HEAD: Normocephalic, atraumatic. EYES: conjunctiva and sclera clear, lids normal. NOSE: No deformity, no discharge CHEST: Grossly normal appearance. LUNGS: Nonlabored breathing, no audible wheezing HEART: Sinus tachycardia ABDOMEN: Soft, Less distended, nontender MUSCULOSKELETAL: No deformity EXTREMITIES: No clubbing, no cyanosis, no edema. SKIN: Intact without significant lesions, or rashes. PSYCHIATRIC: Alert and oriented to time, person, place. Normal mood and affect, intact judgment and insight. -- DATA -- MEDICATIONS ONDANSETRON HCL/PF 4 MG IV Q6H PRN polyethylene glycoL 3350 1 PKT PO DAILY PRN LORazepam 2 MG PO Q2H PRN MAGNESIUM OXIDE 400 MG PO BID chlordiazePOXIDE HCl 25 MG PO BID ACETAMINOPHEN 650 MG PO Q4H PRN METOCLOPRAMIDE HCL 5 MG IV Q6H METOPROLOL TARTRATE 50 MG PO Q8HR LACTULOSE 30 ML PO BID SODIUM CHLORIDE 0.9% 1000 ML IV ASDIR hydrALAZINE HCL 10 MG IV Q6H PRN diphenhydrAMINE HCL 25 MG PO Q6H PRN ENOXAPARIN SODIUM 40 MG SUBQ DAILY ATORVASTATIN CALCIUM 40 MG PO BEDTIME CALCIUM CARBONATE 500 MG PO Q4H PRN ASPIRIN 81 MG PO DAILY clopidogreL 75 MG PO DAILY MUPIROCIN 1 APPLIC NASAL BID POLYVINYL ALCOHOL 1.4% 1 DROP EACH EYE QID PRN LORazepam 2 MG IV Q2H PRN NICOTINE 14 MG TOPICAL DAILY METOPROLOL TARTRATE 5 MG IV Q6H PRN FAMOTIDINE 20 MG PO DAILY NITROGLYCERIN 0.4 MG SL Q5M PRN LABS GLU BED (06/01/22 07:21) GLUBED 63 L CBC W/AUTO DIFF (06/01/22 04:00) WHITE BLOOD CELL 8.1 RED BLOOD CELL 3.31 L HEMOGLOBIN 12.4L L HEMATOCRIT 34.8L L MEAN CELL VOLUME 105 H MEAN CELL HGB 37.5 H MEAN CELL HGB CONCENTRATION 35.6 RED CELL DISTRIBUTION WIDTH 13.4 PLATELET COUNT 208 MEAN PLATELET VOLUME 9.2 NEUTROPHIL % 81.8 H IMMATURE GRANULOCYTE % 0.6 LYMPHOCYTE % 5.9 L MONOCYTE % 11.3 EOSINOPHIL % 0.2 BASOPHIL % 0.2 NUCLEATED RBC % 0.0 NEUTROPHIL # 6.64 IMMATURE GRANULOCYTE # 0.050 LYMPHOCYTE # 0.48 L MONOCYTE # 0.92 H EOSINOPHIL # 0.02 BASOPHIL # 0.02 NUCLEATED RBC # 0.000 COMPREHENSIVE METABOLIC PANEL (06/01/22 04:00) SODIUM 134L L POTASSIUM 3.5 CHLORIDE 99 CARBON DIOXIDE 28 ANION GAP 10.5 GLUCOSE 109H H BLOOD UREA NITROGEN 5 GLOMERULAR FILTRATION RATE >=60 max estimate CREATININE 0.7 BUN/CREATININE RATIO 7.1 L TOTAL PROTEIN 7.1 ALBUMIN 3.2 L CALCIUM 9.8 BILIRUBIN TOTAL 0.8 SGOT/AST 32 SGPT/ALT 34 ALKALINE PHOSPHATASE 120 H Signed in PatientKeeper by Mariam Alex MD on 06/01/22 at 19:08 at 1908 ATTENTION *EDITS and/or ADDENDA must be made in Patient Keeper for this note. * * Edits and ammendments created in [employer] are not visible * * in Patient Keeper or the legal medical record (HPF). * RPT #: [id number] END OF REPORT [facility] 2022-06-01 13:50:00 [facility] ([facility]) Cardiothoracic Surg. Prog Note REPORT #: [id number] REPORT STATUS: Signed DATE: 06/01/22 TIME: 1350 PATIENT: KOTA MONTES UNIT #: [id number] ROOM #: [id number].IC08 BED: A : 61 AGE: 61 SEX: M ATTEND: Aydee Briceno MD ADM AUTHOR: Edis Bradshaw ATTENTION *EDITS and/or ADDENDA must be made in Patient Keeper for this note. * * Edits and ammendments created in [employer] are not visible * * in Patient Keeper or the legal medical record (HPF). * -- ASSESSMENT AND PLAN -- PROBLEMS: 1: CAD (coronary artery disease) A/P: 61-year-old male with a significant past medical history of hypertension, dyslipidemia, tobacco abuse, alcohol abuse and NM status post PCI x2 in 2005 who presented to the emergency department on 05/27/2022 with complaints of chest pain. Upon arrival to the emergency department, patient was loaded with aspirin and Plavix and started on heparin drip. Patient noted to have elevated troponin of 1370 and EKG did not reveal any ST elevation. Transthoracic echocardiogram revealed an ejection fraction of 55 to 60%, mild LVH and mild mitral regurgitation. Given patient's NSTEMI, patient was taken to [facility] with [facility]. Knox today, 05/28/22. Patient noted to have significant stenosis of the mid RCA proximal to previous stent. Patient also noted to have significant stenosis of the proximal and mid left circumflex artery. Patient's LAD free of disease. [employer] unable to intervene on LCX. -Patient hemodynamically stable... continue current medications including aspirin, statin, beta miguelangel and plavix... Cardiology following -Have recommended transfer to [facility] for high risk PCI... Awaiting transfer... Will obtain insurance on June 02 -KU this morning showed unchanged appearance of dilated and gas-filled cecum... General surgery following... GI consulted per hospitalist... Patient's abdominal pain has improved, he has had multiple bowel movements 2: NSTEMI (non-ST elevated myocardial infarction) A/P: -See Above 3: Alcohol abuse A/P: -Management per ICU -- SUBJECTIVE -- CHIEF COMPLAINT: Chest pain HPI: Patient transferred to ICU yesterday afternoon. KUB and Abdominal CT scan performed and patient with dilated bowel pattern. General Surgery consulted. Patient refused NG tube with nursing staff. -REVIEW OF SYSTEMS- GENERAL: Negative for fever, malaise, fatigue. EYES: Negative for blurry vision. No diplopia. RESPIRATORY: Negative for dyspnea or wheeze. No cough. CARDIOVASCULAR: Negative for chest pain or palpitations. No extremity swelling. GASTROINTESTINAL: Positive for abdominal pain or nausea. No emesis. No diarrhea. NEUROLOGICAL: Negative for headache. No vertigo. Denies paresthesias. PSYCHIATRIC: Negative for specific complaints. -- OBJECTIVE -- VITALS (05/31 13:50 - 06/01 13:50): Temperature F: 98.4 (98.1 - 98.6) Temperature C: 36.9 Temperature source: Oral Pulse Rate 92 (92 - 142) Respiratory rate: 17 (12 - 22) BP: 141/82 (107/55 - 195/95) Blood pressure source: Monitor I/Os (05/31 07:00 - 06/01 07:00): Net -350 Output 350 -EXAM- GENERAL: Well developed, well nourished, in no apparent distress. HEAD: Normocephalic, atraumatic. EYES: PERRL, EOM intact, conjunctiva and sclera clear, without nystagmus, lids normal. LUNGS: Clear bilaterally with normal respiratory effort. HEART: Regular rate and rhythm, normal S1, S2, no murmurs, no rubs, no gallops, no clicks. ABDOMEN: Distended, no organomegaly, no masses noted. MUSCULOSKELETAL: No deformity, no scoliosis noted of thoracic or lumbar spine, joint ROM grossly normal, normal gait and station. EXTREMITIES: No clubbing, no cyanosis, no edema. NEUROLOGICAL: No focal deficits, cranial nerves II-XII grossly intact, normal sensation, normal reflexes, normal coordination, normal muscle strength, normal tone. PSYCHIATRIC: Alert and oriented to time, person, place. Normal mood and affect, intact judgment and insight. -- DATA -- MEDICATIONS ONDANSETRON HCL/PF 4 MG IV Q6H PRN polyethylene glycoL 3350 1 PKT PO DAILY PRN LORazepam 2 MG PO Q2H PRN (DC'd) METOPROLOL TARTRATE 50 MG PO Q8HR MAGNESIUM OXIDE 400 MG PO BID chlordiazePOXIDE HCl 25 MG PO BID ACETAMINOPHEN 650 MG PO Q4H PRN METOCLOPRAMIDE HCL 5 MG IV Q6H METOPROLOL TARTRATE 50 MG PO Q8HR LACTULOSE 30 ML PO BID SODIUM CHLORIDE 0.9% 1000 ML IV ASDIR hydrALAZINE HCL 10 MG IV Q6H PRN diphenhydrAMINE HCL 25 MG PO Q6H PRN ENOXAPARIN SODIUM 40 MG SUBQ DAILY ATORVASTATIN CALCIUM 40 MG PO BEDTIME CALCIUM CARBONATE 500 MG PO Q4H PRN ASPIRIN 81 MG PO DAILY clopidogreL 75 MG PO DAILY MUPIROCIN 1 APPLIC NASAL BID POLYVINYL ALCOHOL 1.4% 1 DROP EACH EYE QID PRN LORazepam 2 MG IV Q2H PRN NICOTINE 14 MG TOPICAL DAILY METOPROLOL TARTRATE 5 MG IV Q6H PRN FAMOTIDINE 20 MG PO DAILY NITROGLYCERIN 0.4 MG SL Q5M PRN LABS GLU BED (06/01/22 07:21) GLUBED 63 L CBC W/AUTO DIFF (06/01/22 04:00) WHITE BLOOD CELL 8.1 RED BLOOD CELL 3.31 L HEMOGLOBIN 12.4L L HEMATOCRIT 34.8L L MEAN CELL VOLUME 105 H MEAN CELL HGB 37.5 H MEAN CELL HGB CONCENTRATION 35.6 RED CELL DISTRIBUTION WIDTH 13.4 PLATELET COUNT 208 MEAN PLATELET VOLUME 9.2 NEUTROPHIL % 81.8 H IMMATURE GRANULOCYTE % 0.6 LYMPHOCYTE % 5.9 L MONOCYTE % 11.3 EOSINOPHIL % 0.2 BASOPHIL % 0.2 NUCLEATED RBC % 0.0 NEUTROPHIL # 6.64 IMMATURE GRANULOCYTE # 0.050 LYMPHOCYTE # 0.48 L MONOCYTE # 0.92 H EOSINOPHIL # 0.02 BASOPHIL # 0.02 NUCLEATED RBC # 0.000 COMPREHENSIVE METABOLIC PANEL (06/01/22 04:00) SODIUM 134L L POTASSIUM 3.5 CHLORIDE 99 CARBON DIOXIDE 28 ANION GAP 10.5 GLUCOSE 109H H BLOOD UREA NITROGEN 5 GLOMERULAR FILTRATION RATE >=60 max estimate CREATININE 0.7 BUN/CREATININE RATIO 7.1 L TOTAL PROTEIN 7.1 ALBUMIN 3.2 L CALCIUM 9.8 BILIRUBIN TOTAL 0.8 SGOT/AST 32 SGPT/ALT 34 ALKALINE PHOSPHATASE 120 H Signed in PatientKeeper by Edis Bradshaw on 06/01/22 at 15:22 Cosigned by JASS ALCAZAR MD on 04/01/23 at 09:44 at 0944 at 0944 ATTENTION *EDITS and/or ADDENDA must be made in Patient Keeper for this note. * * Edits and ammendments created in [employer] are not visible * * in Patient Keeper or the legal medical record ([facility]). * RPT #: [id number] END OF REPORT [facility] 2022-06-01 11:24:00 [facility] ([facility]) Hospitalist Progress Note REPORT #: [id number] REPORT STATUS: Signed DATE: 06/01/22 TIME: 1124 PATIENT: KOTA MONTES UNIT #: [id number] ROOM #: [id number].IC08 BED: A : 61 AGE: 61 SEX: M ATTEND: Aydee Briceno MD ADM AUTHOR: Aydee Briceno MD ATTENTION *EDITS and/or ADDENDA must be made in Patient Keeper for this note. * * Edits and ammendments created in [employer] are not visible * * in Patient Keeper or the legal medical record ([facility]). * -- ASSESSMENT AND PLAN -- GENERAL ASSESSMENT: Assessment and plan: 1--NSTEMI: 2--coronary artery disease: Hx of PCI Currently chest pain-free Elevated troponins S/p Heparin drip LHC: Multivessel coronary artery disease -Sublingual nitroglycerin as needed for chest pain -Monitor vitals, Closer monitoring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 stents that is presenting to the emergency department via EMS for chest pain. Earlier today patient awoke from sleeping with central chest pain. EMS was called, they noted patient was in A. fib with RVR. Patient took 325 aspirin, shortly afterwards the heart rate converted to sinus tach. Patient's pain improved. He was brought to the ER for evaluation. Patient denies any recent drug use, fevers, chest trauma. 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 Risk-Chest Pain 40 and Over Risk Stratification )( Coronary Artery Disease Risk factors reviewed )( Thoracic Aortic Dissection Risk factors reviewed )( Pulmonary Embolism Risk factors reviewed )( AMI-Aspirin Aspirin Last 24 Hrs 325 mg, At home Review of Systems ROS Statements All systems rev neg except as marked. Focused Review of [facility] Reports: Chest pain. Past Medical History - Adult Stated Complaint CHEST PAIN Allergies Coded Allergies: No Known Allergies (02/12/21) Additional Medical History CAD, hypertension Additional Surgical History Angioplasty, right hip surgery Alcohol Use Alcohol use Drug Use Denies recreational drugs Smoking status: Smoking status for patients 13 years old or older: Current every day smoker Physical Exam Vital Signs Vital Signs First Documented: Result Date Time Pulse Ox 99 02/12 0041 B/P 108/64 02/12 41 B/P Mean 78 02/12 41 O2 Delivery Room air 02/12 41 Temp 36.6 02/12 004 Pulse 93 02/12 41 Resp 19 02/12 41 Last Documented: Result Date Time Pulse Ox 99 02/12 0155 B/P 106/64 02/12 0155 B/P Mean 78 02/12 015 O2 Delivery Room air 02/12 155 Temp 36.7 02/12 155 Pulse 98 02/12 155 Resp 18 02/12 155 Review of Vital Signs Reviewed Focused PE General/Const General/Const Awake, Alert Eyes Eyes Atraumatic, EOMI MS Neck Neck Atraumatic, Supple Resp/Chest Respiratory/Chest Atraumatic, Breath sounds NL, Breath sounds = bilat, No respiratory distress Cardiovascular Cardiovascular Heart rate NL, Regular rhythm, Heart sounds NL Abdomen/GI Abdomen/GI Atraumatic, Soft MS Back Back Atraumatic MS Lower Extrem Lower Ext/Pelvis/MS Atraumatic Skin Skin Atraumatic Neurologic Neurologic Oriented X3, Speech NL Interpretation Diagnostics Lab Results Interpretation Results Laboratory Tests 02/12/2152: [Embedded Image Not Available] Laboratory Tests: 02/12 53 Chemistry Sodium (135 - 145 mmol/L) 134 L Potassium (3.5 - 5.1 mmol/L) 3.6 Chloride (98 - 107 mmol/L) 98 Carbon Dioxide (21 - 32 mmol/L) 22 Anion Gap (2.0 - 16.0) 17.6 H BUN (4 - 23 mg/dL) 17 Creatinine (0.6 - 1.5 mg/dL) 1.0 Glomerular Filtr Rate (ml/min) >=60 max estimate BUN/Creatinine Ratio (12.0 - 20.0) 17.0 Glucose (65 - 99 mg/dL) 106 H Calcium (8.5 - 10.1 mg/dL) 8.7 Magnesium (1.8 - 2.4 mg/dL) 1.9 Total Bilirubin (0.2 - 1.2 mg/dL) 0.2 AST (15 - 37 U/L) 35 ALT (6 - 50 U/L) 49 Total Alk Phosphatase (45 - 117 U/L) 81 Troponin I High Sens (0 - 78 pg/mL) 17 Total Protein (6.4 - 8.2 g/dL) 7.0 Albumin (3.4 - 5.0 g/dL) 3.5 Hematology WBC (4.5 - 11.0 10 3/uL) 6.8 RBC (4.30 - 5.90 10 6/uL) 4.12 L Hgb (14.0 - 18.0 g/dL) 15.0 Hct (40.0 - 55.0 %) 42.5 MCV (81 - 102 fL) 103 H MCH (26.0 - 34.0 pg) 36.4 H MCHC (31.0 - 37.0 g/dL) 35.3 RDW (11.6 - 14.4 %) 12.6 Plt Count (150 - 400 10 3/uL) 218 MPV (9.0 - 12.6 fL) 8.9 L Neut % (Auto) (33.0 - 76.0 %) 63.1 Lymph % (Auto) (14.0 - 56.4 %) 24.4 Williams % (Auto) (0.0 - 12.9 %) 9.9 Eos % (Auto) (0.0 - 7.0 %) 1.6 Baso % (Auto) (0 - 2.0 %) 0.6 Neut # (Auto) (1.5 - 7.0 10 3/uL) 4.31 Lymph # (Auto) (1.50 - 4.00 10 3/uL) 1.67 Williams # (Auto) (0.20 - 0.80 10 3/uL) 0.68 Eos # (Auto) (0.0 - 0.5 10 3/uL) 0.11 Baso # (Auto) (0.0 - 0.1 10 3/uL) 0.04 Abs Immat Gran (auto) (0.000 - 0.100 x10 3/uL) 0.030 Immature Gran % (0.0 - 1.0 %) 0.4 Nucleated RBC % (0 - 0.2 %) 0.0 Point of Care Testing Rhythm Strip Interpretation Time 0050 Rate 94 Rhythm Strip Interpretation Interpreted by me ECG #1 Interpretation Date 02/12/21 Time 0044 Interpreted by and reviewed by wa NL ECG Interpretation Normal rate, No STEMI, LAD, LBBB Rate 94 Re-Evaluation MDM Free Text MDM Notes Free Text MDM Notes Patient is initial work-up negative. Vitals stable. Patient refused x-ray. Not willing to stay for further work-up. Educated him on risks of leaving partially AGAINST MEDICAL ADVICE. Return precautions given. Resources for follow-up with cardiology given. Patient Discharge Departure Vital Signs/Condition Vital Signs First Documented: Result Date Time Pulse Ox 99 02/12 41 B/P 108/64 02/12 41 B/P Mean 78 02/12 41 O2 Delivery Room air 02/12 41 Temp 36.6 02/12 41 Pulse 93 02/12 41 Resp 19 02/12 41 Last Documented: Result Date Time Pulse Ox 99 02/12 155 B/P 106/64 02/12 155 B/P Mean 78 02/12 155 O2 Delivery Room air 02/12 155 Temp 36.7 02/12 155 Pulse 98 02/12 155 Resp 18 02/12 155 All vital signs available at the time of this entry have been reviewed. Clinical Impression Clinical Impression Primary Impression: Chest pain Secondary Impressions: PARTIAL AMA Disposition Decision Discharge )( Discharged to Home Yes )( Time 0139 )( Date 02/12/21 Discharge/Care Plan Patient Instructions ED Chest Pain, Uncertain Cause Referrals Felix Stovall MD, Chaitanya B MD at 0325 RPT #:[id number] END OF REPORT [facility]
--- NOTE | 2024-10-28 13:02 | RAD REPORT ---
EXAMINATION: XR LEFT SHOULDER CLINICAL INDICATION: Male, 64 years old. PAIN TECHNIQUE: Internal and external AP view radiograph of the left shoulder were obtained. COMPARISON: No prior exam. FINDINGS: No evidence of fracture or dislocation. Normal alignment. Mild AC joint degenerative change s. Soft tissues are unremarkable. IMPRESSION: No acute or significant abnormalities.
[2024-10-28] MEDS ORDERED: HYDROCODONE/APAP 5/325 MG TAB ONE (13:38)
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
--- NOTE | 2024-10-28 13:46 | ER ---
Nurse's Notes [facility] [place] Name: Kota Allen Age: 64 yrs Sex: Male : 1960 Arrival Date: 10/28/2024 Time: 10:59 Bed 12 Private MD: Diagnosis: Pain in left shoulder;Other specified arthritis Presentation: 10/28 11:18 Chief complaint: Patient states: has always had left shoulder pain, [place] and now he cannot bear weight, cannot hold a cell phone due to the pain. Coronavirus screen: At this time, the client does not indicate any symptoms associated with coronavirus-19. Ebola Screen: No symptoms or risks identified at this time. Initial Sepsis Screen: Does the patient meet any 2 criteria? No. Patient's initial sepsis screen is negative. Does the patient have a suspected source of infection? No. Patient's initial sepsis screen is negative. Risk Assessment: Do you want to hurt yourself or someone else? Patient reports no desire to harm self or others. Onset of symptoms was October 27, 2024. 11:18 Method Of Arrival: Ambulatory 11:18 Acuity: KALANI 4 iw Historical: - Allergies: 11:19 No Known Allergies; iw - PMHx: 11:19 Congestive heart failure; Hypertensive disorder; Hypercholesterolemia; arrhythmia; iw - PSHx: 11:19 open heart surgery; pacemaker/defib; iw - Immunization history:: Adult Immunizations not up to date. - Infectious Disease History:: Denies. - Social history:: Smoking status: Reported history of juuling and/or vaping. Screenin:57 [facility] ED Fall Risk Assessment (Adult) History of falling in the last 3 months, jl7 including since admission No falls in past 3 months (0 pts) Confusion or Disorientation No (0 pts) Intoxicated or Sedated No (0 pts) Impaired Gait No (0 pts) Mobility Assist Device Used No (0 pt) Altered Elimination No (0 pt) Score/Fall Risk Level 0 - 2 = Low Risk Oriented to surroundings, Maintained a safe environment. Abuse screen: Denies threats or abuse. Denies injuries from another. Nutritional screening: No deficits noted. Tuberculosis screening: No symptoms or risk factors identified. Vital Signs: 11:18 BP 106 / 79; Pulse 79; Resp 16; Temp 98.1; Pulse Ox 98% on R/A; iw 11:21 Weight 77.11 kg; Height 5 ft. 7 in. ; Pain 10/10; iw 11:21 Body Mass Index 26.63 (77.11 kg, 170.18 cm) iw 11:21 Pain Scale: Adult ED Course: 11:00 Patient arrived in ED. mr 11:03 Pal [facility] FNP-C [facility] 11:03 Vince Elliott MD is Attending Physician. dr5 11:19 Triage completed. iw 11:21 Arm band placed on. iw 12:13 Shoulder Left (2 View) XRAY In Process Unspecified. EDMS 13:57 Patient has correct armband on for positive identification. Provided Education on: jl7 discharge. 13:57 No provider procedures requiring assistance completed. Patient did not have IV access jl7 during this emergency room visit. Administered Medications: 13:37 CANCELLED (Inappropriate at this time): [id number] mg IM once dr5 13:57 Drug: HYDROcodone-acetaminophen PO 5 mg-325 mg 2 tabs PO once Route: PO; jl7 13:58 Follow up: Response: Medication administered at discharge. jl7 Medication: 13:57 VIS not applicable for this client. jl7 Outcome: 13:45 Discharge ordered by . dr5 13:57 Discharged to home ambulatory, jl7 13:57 Condition: stable 13:57 Discharge instructions given to patient, Instructed on discharge instructions, follow up and referral plans. medication usage, Demonstrated understanding of instructions, follow-up care, medications, Prescriptions given X 1, 13:58 Patient left the ED. jl7 Signatures: Dispatcher [employer] EDAL Mena Quintanilla, Reg Reg mr Leonora Naidu, RN RN iw Carmelo Ferrera RN RN jl7 Pal Hernandez FNP-C FNP-Cdr5 Corrections: (The following items were deleted from the chart) 11:20 11:19 PMHx: None; iw
[2024-10-28 17:32] VITALS: BP 106/79; TEMP 98.1; O2SAT 98
== END 2024-10-28 13:58 | disposition home or self-care (01) ==
LOC: ER 10:59
DX: M13.88 Other specified arthritis, other site (principal)